=== PATIENT | female | born 1980 | race Caucasian/White ===

== ENCOUNTER → 2017-10-21 08:41 | Outpatient (CLI) | payer OTHER, SELFPAY ==
[2017-10-21 09:46] LABS: Alanine Aminotransferase 27 IU/L (9-52); Albumin 3.9 g/dL (3.5-5.0); Albumin Globulin Ratio 1.2 (1.0-2.8); Alkaline Phosphatase 59 U/L (38-126); Aspartate Aminotransferase 22 IU/L (14-36); BUN Creatinine Ratio 28.3 (6-22); Bilirubin Total 0.4 mg/dL (0.2-1.3); Blood Urea Nitrogen 17 mg/dL (7-17); Calcium 9.5 mg/dL (8.4-10.2); Carbon Dioxide 32 mmol/L (22-32); Chloride 100 mmol/L (98-107); Estimated Glomerular Filt Rate > 60.0 mL/min (>60); Globulin 3.2 g/dL (1.7-4.1); Glucose 93 mg/dL (70-100); HEMOLYSIS < 15 (0-50); Potassium 3.9 mmol/L (3.4-5.1); Sodium 141 mmol/L (137-145); Total Protein 7.1 g/dL (6.3-8.2)
== END ==
PROVIDERS: Family Provider Family Medicine; PCP Family Medicine; Visit Provider Physician Assistant
DX: L68.0 Hirsutism (principal)
CPT/HCPCS: 36415; 80053

== ENCOUNTER → 2017-11-30 10:37 | Outpatient (CLI) | payer OTHER, SELFPAY ==
[2017-11-30 12:49] LABS: Follicle Stimulating Hormone 6.38 mIU/mL; Luteinizing Hormone 3.55 mIU/mL; Prolactin 17.8 ng/mL (3.0-18.6)
[2017-11-30 12:53] LABS: TSH w/ Reflex to FT4 6.37 uIU/mL (0.47-4.68)
[2017-12-03 19:28] LABS: Testosterone Free 1.6 pg/mL (0.1-6.4); Testosterone Total 15 ng/dL (2-45)
== END ==
PROVIDERS: PCP Family Medicine
DX: N97.0 Female infertility associated with anovulation (principal)
CPT/HCPCS: 36415; 83001; 83002; 84146; 84402; 84403; 84439; 84443

== ENCOUNTER → 2017-12-14 14:12 | Outpatient (CLI) | payer OTHER, SELFPAY ==
[2017-12-14 17:46] LABS: Thyroid Stimulating Hormone 1.58 uIU/mL (0.47-4.68)
== END ==
PROVIDERS: Family Provider Family Medicine; PCP Family Medicine
DX: N97.0 Female infertility associated with anovulation (principal); E03.9 Hypothyroidism, unspecified
CPT/HCPCS: 36415; 84144; 84443

== ENCOUNTER → 2018-01-18 13:02 | Outpatient (CLI) | payer OTHER, SELFPAY ==
[2018-01-18 15:03] LABS: Thyroid Stimulating Hormone 2.51 uIU/mL (0.47-4.68)
== END ==
PROVIDERS: Family Provider Family Medicine; PCP Family Medicine
DX: N97.0 Female infertility associated with anovulation (principal)
CPT/HCPCS: 36415; 82397; 84443

== ENCOUNTER → 2018-02-16 15:19 | Outpatient (CLI) | payer OTHER, SELFPAY ==
[2018-02-16 15:39] LABS: Add Manual Diff / Slide Review NO; Basophils Percent Auto 0.5 % (0-2); Eosinophils Percent Auto 3.2 % (2-4); Hematocrit 36.6 % (36-46); Hemoglobin 12.3 g/dL (12.0-16.0); Lymphocytes Percent Auto 27.4 % (25-40); Mean Corpuscular HGB Conc 33.5 % (30-36); Mean Corpuscular Hemoglobin 29.8 PG (26-34); Mean Corpuscular Volume 88.9 fL (80-100); Neutrophils Absolute Auto 3400 /uL (3000-5900); Neutrophils Percent Auto 60.9 % (50-75); Platelet Count 219 X10^3/uL (150-400); Red Blood Cell Count 4.11 X10^6/uL (4.0-5.2); White Blood Cell Count 5.6 X10^3/uL (4.5-11.0)
[2018-02-16 16:10] LABS: Alanine Aminotransferase 21 IU/L (9-52); Albumin 3.8 g/dL (3.5-5.0); Albumin Globulin Ratio 1.4 (1.0-2.8); Alkaline Phosphatase 64 U/L (38-126); Aspartate Aminotransferase 23 IU/L (14-36); BUN Creatinine Ratio 12.9 (6-22); Bilirubin Total 0.4 mg/dL (0.2-1.3); Blood Urea Nitrogen 9 mg/dL (7-17); Calcium 9.2 mg/dL (8.4-10.2); Carbon Dioxide 34 mmol/L (22-32); Chloride 101 mmol/L (98-107); Estimated Glomerular Filt Rate > 60.0 mL/min (>60); Globulin 2.8 g/dL (1.7-4.1); Glucose 106 mg/dL (70-100); HEMOLYSIS < 15 (0-50); Potassium 4.1 mmol/L (3.4-5.1); Sodium 141 mmol/L (137-145); Total Protein 6.6 g/dL (6.3-8.2)
[2018-02-16 19:07] LABS: Creatinine Urine Random 31.1 mg/dL
[2018-02-16 19:13] LABS: Microalbumi Creatinin Ratio Ur 385.8 ug/mg CR (<30)
== END ==
PROVIDERS: Family Provider Family Medicine; PCP Family Medicine; Visit Provider Family Medicine
DX: I10 Essential (primary) hypertension (principal)
CPT/HCPCS: 36415; 80053; 82043; 82570; 85025

== ENCOUNTER → 2018-03-10 11:18 | Outpatient (CLI) | payer OTHER, SELFPAY ==
[2018-03-10 15:49] LABS: BUN Creatinine Ratio 16.7 (6-22); Blood Urea Nitrogen 10 mg/dL (7-17); Calcium 9.4 mg/dL (8.4-10.2); Carbon Dioxide 32 mmol/L (22-32); Chloride 102 mmol/L (98-107); Estimated Glomerular Filt Rate > 60.0 mL/min (>60); Glucose 90 mg/dL (70-100); HEMOLYSIS < 15 (0-50); Potassium 4.6 mmol/L (3.4-5.1); Sodium 144 mmol/L (137-145)
== END ==
PROVIDERS: PCP Family Medicine; Visit Provider Family Medicine
DX: Z51.81 Encounter for therapeutic drug level monitoring (principal)
CPT/HCPCS: 36415; 80048

== ENCOUNTER → 2018-04-20 09:39 | Outpatient (CLI) | payer OTHER, SELFPAY ==
[2018-04-20 11:03] LABS: HCG Quantitative /Beta subunit < 2.39 mIU/mL
[2018-04-20 14:38] LABS: BUN Creatinine Ratio 16.7 (6-22); Blood Urea Nitrogen 10 mg/dL (7-17); Calcium 9.4 mg/dL (8.4-10.2); Carbon Dioxide 30 mmol/L (22-32); Chloride 100 mmol/L (98-107); Estimated Glomerular Filt Rate > 60.0 mL/min (>60); Glucose 93 mg/dL (70-100); HEMOLYSIS < 15 (0-50); Potassium 4.9 mmol/L (3.4-5.1); Sodium 143 mmol/L (137-145)
== END ==
PROVIDERS: PCP Family Medicine; Visit Provider Family Medicine
DX: N91.2 Amenorrhea, unspecified (principal)
CPT/HCPCS: 36415; 80048; 84702

== ENCOUNTER → 2018-06-29 14:13 | Outpatient (CLI) | payer OTHER, SELFPAY ==
--- NOTE | 2018-06-29 | DI.MRI.S_ITS ---
PROCEDURE: MR LUMBAR SPINE WO CON INDICATIONS: Postlaminectomy syndrome, not elsewhere classified TECHNIQUE: Noncontrast sagittal T1 spin echo and T2 fast echo, sagittal STIR, axial T1 and T2 fast spin echo through the lumbar spine. In cases with scoliosis, additional coronal T2 fast spin echo may be performed. COMPARISON: [facility], MR, L-SPINE WITHOUT CONTRAST, 04/21/2017, 16:00. [facility], MR, L-SPINE WITHOUT CONTRAST, 11/17/2016, 17:14. FINDINGS: Image quality: Excellent. Alignment and Curvature: There is trace L3-L4 retrolisthesis.. Bones: Reactive endplate change is noted adjacent to the L4-L5 disc. Postsurgical changes compatible with L4-L5 left laminotomy are redemonstrated. No acute vertebral body compression fractures. Spinal Cord: Conus medullaris terminates at the L1 level. Visualized cord demonstrates normal signal and size. Paraspinous Soft Tissues: No paravertebral masses. L1-L2: Normal appearance. L2-L3: Normal appearance. L3-L4: Normal appearance. L4-L5: Loss of disc signal and height. Moderate, diffuse disc bulge. Large left central disc extrusion which is increased in size compared to prior examinations. Extruded disc material impinges upon the traversing left L5 nerve root. Mild bilateral facet hypertrophy. Mild to moderate narrowing of the central canal. Severe bilateral neural foraminal narrowing flattening deformity exiting L4 nerve roots L5-S1: Disc has a normal appearance. Mild bilateral facet hypertrophy. No central stenosis. No neural foraminal narrowing. No neural impingement. IMPRESSION: 1. Postsurgical changes. 2. Moderate to severe L4-L5 degenerative disc disease. 3. Mild L4-L5 and L5-S1 facet arthropathy. 4. Large left central L4-L5 disc extrusion. Extruded disc material impinges upon the left L5 nerve root. 5. [id number] L4-L5 central canal narrowing. 6. Severe bilateral L4-L5 neural foraminal narrowing. 7. Flattened deformity of the exiting bilateral L4 nerve root secondary to neuroforaminal narrowing. Dictated by: Patricia Blair MD, PhD on 06/29/2018 at 14:47 Approved by: Patricia Blair MD, PhD on 06/29/2018 at 14:59
== END ==
PROVIDERS: Family Provider Family Medicine; PCP Family Medicine; Visit Provider Family Medicine
DX: M96.1 Postlaminectomy syndrome, not elsewhere classified (principal); M51.36 Other intervertebral disc degeneration, lumbar region; M48.061 Spinal stenosis, lumbar region without neurogenic claudication; M47.816 Spondylosis without myelopathy or radiculopathy, lumbar region; M47.817 Spondylosis without myelopathy or radiculopathy, lumbosacral region
CPT/HCPCS: 72148

== ENCOUNTER 2018-09-05 01:57 | Emergency (ER) | payer OTHER, SELFPAY ==
[2018-09-05 02:08] VITALS: BP 126/71; PULSE 108; RESP 18; TEMP 36.8; O2SAT 96
--- NOTE | 2018-09-05 02:21 | ED.BACK ---
HPI - Back Pain/Injury General Chief Complaint: Back Pain/Injury Stated Complaint: back pain has slipped disc Time Seen by Provider: 09/05/18 02:09 Source: patient Mode of arrival: ambulatory Limitations: no limitations History of Present Illness HPI Narrative: 37-year-old female with lumbar spine disc disease has had prior surgery. Had an MRI performed approximately 2 months ago which showed left-sided lower lumbar issues. She has seen a spine surgeon which she states told her he would not do surgery until she lost 60 lb. She has lost 30 lb. She gets her pain medication from the [facility]. She has oxycodone at home. States over the past couple days she has had a increase in her left-sided back pain radiating down her left arm. No urinary symptoms. No bowel symptoms. No saddle anesthesia. No fevers. No trauma. is not taking any anti-inflammatories Related Data Home Medications Medication Instructions Recorded Confirmed terazosin 5 mg PO HS #0 09/29/16 07/28/18 ketoconazole 1 thomas TOPICAL #0 04/07/17 07/28/18 cyclobenzaprine 10 mg tablet 10 mg PO BID tab 11/30/17 07/28/18 oxycodone 30 mg tablet 15 mg PO BIDP PRN tab 06/23/18 07/28/18 Previous Rx's Medication Instructions Recorded albuterol sulfate [Proventil HFA] 2 puff INH PRN PRN #1 units 05/07/16 polyethylene glycol 3350 [Miralax] 17 gm PO QDAY #500 gm 05/26/17 omeprazole 40 mg PO QDAY #30 cap 07/28/17 ipratropium 20 mcg-albuterol 100 1 puff INHALATION TID #1 inh 12/01/17 mcg/actuation mist for inhalation levothyroxine 50 mcg tablet 50 mcg PO DAILY #90 tab 12/04/17 docusate sodium 250 mg PO QDAY #30 cap 02/25/18 aripiprazole 5 mg tablet 5 mg PO QDAY #30 tab 07/02/18 duloxetine 30 mg capsule,delayed 90 mg PO DAILY #90 cap 07/12/18 release pregabalin 150 mg capsule 150 mg PO BID #60 cap 07/12/18 furosemide 20 mg tablet 20 mg PO DAILY #90 tab 07/19/18 metoprolol tartrate 50 mg tablet 50 mg PO BID #180 tab 07/19/18 meloxicam [Mobic] 15 mg PO DAILY #30 tab 09/05/18 prednisone 40 mg PO DAILY 5 Days #10 tab 09/05/18 Allergies Allergy/AdvReac Type Severity Reaction Status Date / Time carisoprodol [CARISOPRODOL] AdvReac Severe urinary Verified 07/28/18 08:33 retention Review of Systems Constitutional Denies fever(s), Denies headache(s) and Denies weakness ENT Ears, Nose, Mouth, and Throat: Denies headache(s) and Denies disequilibrium Cardiovascular Denies chest pain and Denies dyspnea Respiratory Denies dyspnea Gastrointestinal Gastrointestinal: Denies abdominal pain Genitourinary Denies dysuria, Denies urinary incontinence, Denies urinary hesitancy and Denies urinary urgency Musculoskeletal Reports back pain and Reports tingling (Left lower extremity) Integumentary/Breasts Denies rash Neurologic Denies headache(s), Reports radicular pain, Reports tingling (Left lower extremity), Denies paresthesias, Denies disequilibrium and Denies weakness Hematologic/Lymphatic Denies easy bleeding and Denies easy bruising [facility] Medical History Cubital tunnel syndrome (Chronic) Fibromyalgia (Chronic 2014) 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 (Chronic) Ovarian cyst (Chronic) Plantar fasciitis (Chronic) Acetaminophen overdose of undetermined intent (Resolved 12/2015) Intraoperative cardiac arrest during non-cardiac surgery (Resolved 11/2013) Suicide attempt (Resolved) Surgical History History of carpal tunnel repair (Resolved 10/30/14) S/P epidural steroid injection (Resolved 11/2013) Status post dilation and curettage (Resolved 2008) Status post laminectomy (Resolved 09/2016) Family History Grandfather Diabetes mellitus Family/Other Pancreatic cancer Social History Smoking Status: Current some day smoker Family History Grandfather Diabetes mellitus Family/Other Pancreatic cancer Social History Smoking Status: Current some day smoker Exam Initial Vital Signs Initial Vital Signs: Vital Signs Temperature 98.3 F 09/05/18 02:08 Pulse Rate 108 H 09/05/18 02:08 Respiratory Rate 18 09/05/18 02:08 Blood Pressure 126/71 09/05/18 02:08 Pulse Oximetry 96 09/05/18 02:08 Const General: cooperative, comfortable, well developed, well groomed and No acute distress Orientation: alert, awake and oriented x3 HENMT Head: normal to inspection and normocephalic Resp Effort & Inspection: normal respiratory effort Cardio Rate: tachycardic Back/Spine/Pelvis Cervical Spine: No cervical spinal tenderness Thoracic/Lumbar Spine: paraspinal tenderness, No thoracic spinal tenderness and lumbar spinal tenderness Skin Other: Well-healed midline surgical wound consistent with her prior lumbar spinal surgery history Neuro General: alert, awake and oriented x3 Cognition: normal cognition Speech: speech normal Gait: normal gait Extrem General: normal to inspection and capillary refill normal Psych Appearance: grossly normal and well kempt Course Orders Ordered: Discontinued Medications Hydromorphone HCl (Dilaudid) 1 mg IM NOW ONE Stop: 09/05/18 02:22 Ketorolac Tromethamine (Toradol) 30 mg IM NOW ONE Stop: 09/05/18 02:22 Vital Signs - 8 hr 09/05/18 02:08 Temperature 98.3 F Pulse Rate 108 H Respiratory Rate 18 Blood Pressure 126/71 Pulse Oximetry 96 MDM - Back Pain/Injury MDM Narrative Medical decision making narrative: Patient without any red flag symptoms concerning for fracture, cauda equina, metastasis, hematoma or abscess. She has oxycodone at home prescribed by the pain clinic. She was given a shot of Dilaudid and Toradol here in the ER. Will send home with a short prescription for prednisone and also Mobic. She was given return precautions. She has a follow-up with her spine surgeon on Thursday next week. She expressed understanding and agreement with plan. Discharge Plan Departure Patient Disposition: Home Clinical Impression: Lumbar radiculopathy Instructions: DI for Back Pain With Sciatica Activity Restrictions/Additional Instructions: Recommend you take the medications as directed. Further treatment of her chronic pain needs to come from the [facility] or your primary doctor. Keep all your scheduled medical appointments. Return to the emergency department for any new or worsening symptoms Prescriptions: New meloxicam [Mobic] 15 mg tablet 15 mg PO DAILY Qty: 30 RF: 0 prednisone 20 mg tablet 40 mg PO DAILY 5 Days Qty: 10 RF: 0 No Action albuterol sulfate [Proventil HFA] 90 MCG/PUFF HFA aerosol inhaler 2 puff INH PRN PRNQty: 1 RF: 6 terazosin 10 MG capsule 5 mg PO HS Qty: 0 RF: 0 ketoconazole 2 % shampoo 1 thomas Topical Qty: 0 RF: 0 polyethylene glycol 3350 [Miralax] 119 GM powder 17 gm PO QDAY Qty: 500 RF: 3 omeprazole 40 MG capsule,delayed release(DR/EC) 40 mg PO QDAY Qty: 30 RF: 12 ipratropium-albuterol [Combivent Respimat] 20-100 mcg/actuation mist 1 puff INHALATION TID Qty: 1 RF: 5 levothyroxine 50 mcg tablet 50 mcg PO DAILY Qty: 90 RF: 3 docusate sodium 250 mg capsule 250 mg PO QDAY Qty: 30 RF: 11 aripiprazole [Abilify] 5 mg tablet 5 mg PO QDAY Qty: 30 RF: 12 duloxetine [Cymbalta] 30 mg capsule,delayed release(DR/EC) 90 mg PO DAILY Qty: 90 RF: 2 pregabalin 150 mg capsule 150 mg PO BID Qty: 60 RF: 5 furosemide 20 mg tablet 20 mg PO DAILY Qty: 90 RF: 1 metoprolol tartrate 50 mg tablet 50 mg PO BID Qty: 180 RF: 1 oxycodone [Roxicodone] 30 mg tablet 15 mg PO BIDP PRNRF: 0 cyclobenzaprine 10 mg tablet 10 mg PO BID RF: 0 Referrals: Alejandra Lynch MD [Primary Care Provider] -
[2018-09-05] MEDS: KETOROLAC 60 MG/2 ML VIAL 30 MG IM (02:43)
[2018-09-05] MEDS: HYDROMORPHONE 1 MG INJ IM (02:43)
[2018-09-05 03:20] VITALS: BP 113/63; PULSE 87; RESP 16; O2SAT 96
== END 2018-09-05 03:23 | disposition home or self-care (01) ==
PROVIDERS: Emergency Provider Emergency Medicine; PCP Family Medicine
DX: M54.16 Radiculopathy, lumbar region (principal)
CPT/HCPCS: 96372; 99282; 99283; J1170; J1885

== ENCOUNTER 2018-09-23 11:19 | Emergency (ER) | payer OTHER, SELFPAY ==
--- NOTE | 2018-09-23 11:22 | PC.NURSE ---
Stable. OK to wait for triage
[2018-09-23 11:33] VITALS: BP 133/85; PULSE 104; RESP 20; TEMP 36.4; O2SAT 100; BMI 40.7
--- NOTE | 2018-09-23 12:03 | ED.BACK ---
HPI - Back Pain/Injury <Adilene Siegel PA-C - Last Filed: 09/23/18 20:20> General Chief Complaint: Back Pain/Injury Stated Complaint: LOWER BACK PAIN Time Seen by Provider: 09/23/18 12:03 Source: patient Mode of arrival: ambulatory Limitations: no limitations History of Present Illness HPI Narrative: This 37-year-old female is sent for evaluation by her PCP office secondary to known herniated disc and left lower extremity radiculopathy. They reported concern due to her having new saddle anesthesia. Patient states that she has had multiple spinal disc problems and several back surgeries. She states that she has known slipped disc, last MRI was June (shows L4/5 H and P with left nerve root impingement). She states that she was seen here on the due to her back pain and was told to follow up with her PCP, but she did not just due to hoping this would improve somewhat on its own. She states that pain has been gradually worsening since then, even more so in the last several days. 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 She states that pain is not changed in quality, radiates all the way down her left leg into her foot. She states she is able to walk as she has been so painful. She states that she has had problem since this started with urinary urgency and difficulty getting to the bathroom at times, i.e. she will wake up with a full bladder and it is hard to get to the bathroom. She has difficulty telling whether this is due to sensation change versus just difficulty getting to the bathroom due to pain. she thinks this is may be slightly worse gradually. She states she has occasional stool incontinence as well, last episode was a couple of weeks ago. She states these have also been typical issues for her when her back problems worsen. She states that she has slight numbness in her left thigh and groin area, which she describes as not feeling quite the same as the right. She denies any new injury, denies any new fever. She continues to have urinary urgency but no burning, hematuria, no clear increased frequency or any other new complaints on systems review Related Data Home Medications Medication Instructions Recorded Confirmed ketoconazole 1 thomas TOPICAL DIRECTED #0 04/07/17 09/23/18 cyclobenzaprine 10 mg tablet 10 mg PO QID tab 11/30/17 09/23/18 acetaminophen 500 mg tablet 1,000 mg PO BID tab 09/23/18 09/23/18 amitriptyline 25 mg PO DAILY 09/23/18 09/23/18 aripiprazole [Abilify] 5 mg PO DAILY 09/23/18 09/23/18 duloxetine [Cymbalta] 30 mg PO DAILY 09/23/18 09/23/18 morphine 30 mg PO BID 09/23/18 09/23/18 omeprazole 09/23/18 oxycodone 15 mg PO TID 09/23/18 09/23/18 terazosin 5 mg PO BEDTIME 09/23/18 09/23/18 Previous Rx's Medication Instructions Recorded polyethylene glycol 3350 [Miralax] 17 gm PO QDAY #500 gm 05/26/17 ipratropium 20 mcg-albuterol 100 1 puff INHALATION TID #1 inh 12/01/17 mcg/actuation mist for inhalation levothyroxine 50 mcg tablet 50 mcg PO DAILY #90 tab 12/04/17 docusate sodium 250 mg PO QDAY #30 cap 02/25/18 pregabalin 150 mg capsule 150 mg PO BID #60 cap 07/12/18 furosemide 20 mg tablet 20 mg PO DAILY #90 tab 07/19/18 metoprolol tartrate 50 mg tablet 50 mg PO BID #180 tab 07/19/18 Allergies Allergy/AdvReac Type Severity Reaction Status Date / Time carisoprodol [CARISOPRODOL] AdvReac Severe urinary Verified 09/23/18 10:47 retention Review of Systems <Adilene Siegel PA-C - Last Filed: 09/23/18 20:20> Review of Systems ROS Unobtainable: All systems reviewed & are unremarkable except as noted in HPI and below PFSH <Adilene Siegel PA-C - Last Filed: 09/23/18 20:20> Medical History Cubital tunnel syndrome (Chronic) Fibromyalgia (Chronic 2014) 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 (Chronic) Ovarian cyst (Chronic) Plantar fasciitis (Chronic) Acetaminophen overdose of undetermined intent (Resolved 12/2015) Intraoperative cardiac arrest during non-cardiac surgery (Resolved 11/2013) Suicide attempt (Resolved) Surgical History History of carpal tunnel repair (Resolved 10/30/14) S/P epidural steroid injection (Resolved 11/2013) Status post dilation and curettage (Resolved 2008) Status post laminectomy (Resolved 09/2016) Family History Grandfather Diabetes mellitus Family/Other Pancreatic cancer Social History Smoking Status: Former smoker Social History Smoking Status: Former smoker Exam <Adilene Siegel PA-C - Last Filed: 09/23/18 20:20> Narrative Exam Narrative: GENERAL APPEARANCE: Patient sitting comfortably, in no distress. PULMONARY: Lungs clear to auscultation bilaterally CV: Regular rhythm regular without murmur, normal S1 and S2, no S3 or S4 MUSCULOSKELETAL: Tender throughout the mid to inferior lumbar spine and lumbosacral musculature. Reduced trunk range of motion in all meadows secondary to tenderness, flexion to 45?. Normal sit:stand and gait though slightly stiff. Lower extremity strength 5/5 bilateral hip flexors, knee extensors, foot plantar flexion. Positive left modified straight leg raise NEUROLOGIC: Bilateral patellar and Achilles DTRs 2+ with distraction. Sensation is grossly intact throughout the lower extremities and groin. Anal sphincter tone may be slightly reduced but palpable Initial Vital Signs Initial Vital Signs: Vital Signs Temperature 97.6 F 09/23/18 11:33 Pulse Rate 104 H 09/23/18 11:33 Respiratory Rate 20 09/23/18 11:33 Blood Pressure 133/85 09/23/18 11:33 Pulse Oximetry 100 09/23/18 11:33 <Kristen Martinez DO - Last Filed: 09/25/18 08:27> Initial Vital Signs Initial Vital Signs: Vital Signs Temperature 97.6 F 09/23/18 11:33 Pulse Rate 104 H 09/23/18 11:33 Respiratory Rate 20 09/23/18 11:33 Blood Pressure 133/85 09/23/18 11:33 Pulse Oximetry 100 09/23/18 11:33 Course <Adilene Siegel PA-C - Last Filed: 09/23/18 20:20> Additional Information: Patient appears to have gradual and significant worsening of her chronic radicular symptoms, but no acute neurologic emergency today. She does not have gait impairment on exam. She does follow with a spine surgeon, however did not have a follow-up appointment for about 4 weeks. We phone today and she will be able to see him on Thursday morning. She will remain off of work until then, no given. She has been cutting down on her pain medication and this may also correlate with her worsening pain. she agreed to return if any acutely worsening symptoms or changes in the interim Vital Signs - 8 hr 09/23/18 13:35 Pulse Rate 93 H Blood Pressure 121/83 Pulse Oximetry 98 <Kristen Martinez DO - Last Filed: 09/25/18 08:27> Vital Signs - 8 hr 09/23/18 13:35 Pulse Rate 93 H Blood Pressure 121/83 Pulse Oximetry 98 MDM - Back Pain/Injury <Adilene Siegel PA-C - Last Filed: 09/23/18 20:20> Lab Data Point of Care Testing Test Results Negative Urine Dip Bedside Urine Glucose Negative Bedside Urine Bilirubin - Negative Bedside Urine Ketone - Negative Urine Specific [place] 1.015 Bedside Urine Occult Blood - Negative Bedside Urine pH 7.0 Bedside Urine Protein - Negative Bedside Urine Urobilinogen - Negative Bedside Urine Nitrite - Negative Bedside Urine Leukocytes - Negative Esterase <Kristen Martinez DO - Last Filed: 09/25/18 08:27> Lab Data Point of Care Testing Test Results Negative Urine Dip Bedside Urine Glucose Negative Bedside Urine Bilirubin - Negative Bedside Urine Ketone - Negative Urine Specific [place] 1.015 Bedside Urine Occult Blood - Negative Bedside Urine pH 7.0 Bedside Urine Protein - Negative Bedside Urine Urobilinogen - Negative Bedside Urine Nitrite - Negative Bedside Urine Leukocytes - Negative Esterase Discharge Plan Departure Patient Disposition: Home Clinical Impression: Lumbar radiculopathy Discharge Date/Time: 09/23/18 13:35 Interventions: ED Discharge Assessment Last Done: 09/23/18 13:35 Activity Restrictions/Additional Instructions: Please return as we talked about if you have acutely worsening symptoms or new symptoms such as acute weakness in your leg or inability to urinate. Otherwise, please follow-up with your verifying specialist on Thursday at 9:20 a.m. as we have planned. Remain off of work until you are advised by your specialist on what activities you can tolerate. Prescriptions: No Action ketoconazole 2 % shampoo 1 thomas Topical DIRECTED Qty: 0 RF: 0 polyethylene glycol 3350 [Miralax] 119 GM powder 17 gm PO QDAY Qty: 500 RF: 3 ipratropium-albuterol [Combivent Respimat] 20-100 mcg/actuation mist 1 puff INHALATION TID Qty: 1 RF: 5 levothyroxine 50 mcg tablet 50 mcg PO DAILY Qty: 90 RF: 3 docusate sodium 250 mg capsule 250 mg PO QDAY Qty: 30 RF: 11 pregabalin 150 mg capsule 150 mg PO BID Qty: 60 RF: 5 furosemide 20 mg tablet 20 mg PO DAILY Qty: 90 RF: 1 metoprolol tartrate 50 mg tablet 50 mg PO BID Qty: 180 RF: 1 cyclobenzaprine 10 mg tablet 10 mg PO QID RF: 0 acetaminophen [Tylenol Extra Strength] 500 mg tablet 1,000 mg PO BID RF: 0 terazosin 5 mg capsule 5 mg PO BEDTIME RF: 0 morphine 30 mg tablet extended release 30 mg PO BID RF: 0 oxycodone 15 mg tablet 15 mg PO TID RF: 0 amitriptyline 25 mg tablet 25 mg PO DAILY RF: 0 omeprazole 20 mg capsule,delayed release(DR/EC) RF: 0 aripiprazole [Abilify] 5 mg tablet 5 mg PO DAILY RF: 0 duloxetine [Cymbalta] 30 mg capsule,delayed release(DR/EC) 30 mg PO DAILY RF: 0 Referrals: Praveen Reese [Other] Alejandra Lynch MD [Primary Care Provider] - Stand Alone Forms: Work Release Note <Kristen Martinez DO - Last Filed: 09/25/18 08:27> Cosign ED Attending Cosignature Attestation: I WAS IMMEDIATELY AVAILABLE IN THE DEPARTMENT FOR CONSULTATION. DOCUMENTATION HAS BEEN REVIEWED. I AGREE WITH ASSESSMENT AND PLAN.
--- NOTE | 2018-09-23 12:57 | PC.NURSE ---
Called patients spine surgeon and got an apt sooner than the end of the month. Apt is ThursdaySeptember 28 @ 0968.
[2018-09-23 13:35] VITALS: BP 121/83; PULSE 93; O2SAT 98
== END 2018-09-23 13:35 | disposition home or self-care (01) ==
PROVIDERS: Emergency Provider Internal Medicine; PCP Family Medicine
DX: M54.16 Radiculopathy, lumbar region (principal)
CPT/HCPCS: 51798; 81003; 81025; 99282; 99283

== ENCOUNTER 2019-01-13 14:10 | Emergency (ER) | payer OTHER, SELFPAY ==
[2019-01-13 14:25] VITALS: BP 142/93; PULSE 95; RESP 18; TEMP 36.6; O2SAT 98; BMI 40.7
--- NOTE | 2019-01-13 15:48 | PC.NURSE ---
Pt had spinal fusion 3 weeks ago. pt experiencing increasing pain. Pt denies loss bowel/bladder.
[2019-01-13] MEDS: KETOROLAC 60 MG/2 ML VIAL IM (15:56)
[2019-01-13 16:25] VITALS: BP 128/80; PULSE 86; RESP 20; O2SAT 97
[2019-01-13] MEDS: LIDOCAINE PATCH 1 EACH ADH..PATCH TOP (16:42)
--- NOTE | 2019-01-13 17:41 | DI.CT.S_ITS ---
PROCEDURE: CT LUMBAR SPINE WO CON INDICATIONS: recent l spine fusion, increased pain TECHNIQUE: Noncontrast 3 mm thick sections acquired from the T12 level to the sacrum. Sagittal and coronal reformats were constructed. For radiation dose reduction, the following was used: automated exposure control. COMPARISON: [facility], MR, MR LUMBAR SPINE WO CON, 06/29/2018, 14:22. [facility], MR, L-SPINE WITHOUT CONTRAST, 04/21/2017, 16:00. [facility], MR, L-SPINE WITHOUT CONTRAST, 11/17/2016, 17:14. [facility], CT, L-SPINE WITHOUT CONTRAST, 09/01/2016, 12:03. FINDINGS: Image quality: Diagnostic Bones: No acute vertebral body compression fractures. No suspicious lytic or blastic bony lesions. Central spinal caliber is of normal overall caliber. No pars defects. S-shaped scoliotic curvature is seen. No focal AP alignment abnormality is seen. T12-L1: Normal. L1-L2: Normal. L2-L3: Normal. L3-L4: Normal. L4-L5: Postoperative changes are seen at this level, with bilateral pedicle screws and vertical fixation rods. The screws appear well placed. There is a disc spacer seen. No findings of hardware failure or hardware loosening are seen. There has been removal of portions of the posterior elements. There is mild to moderate left-sided and moderate right-sided neural foraminal narrowing seen. The central canal is widely patent. This level is clearly improved compared to the preoperative MRI. L5-S1: No significant abnormality is seen at this level. Soft tissues: There is expected amount of fluid and fatty stranding within the postoperative bed. No corinna fluid collections are seen to the limits of this study. No retroperitoneal masses or hematomas. Visualized aorta is normal in caliber. Diverticulosis is seen, without findings of active diverticulitis. IMPRESSION: Interval postoperative change at L4-L5, with clear interval improvement of this level compared to the preoperative MRI. An expected amount of postoperative fluid and stranding can be seen within the postoperative bed, yet without a significant abnormality is seen. If there is strong clinical concern for a postoperative abscess, then please consider a repeat examination with IV contrast for further evaluation. Dictated by: Rickie Lundberg M.D. on 01/13/2019 at 17:05 Approved by: Rickie Lundberg M.D. on 01/13/2019 at 17:13
[2019-01-13] MEDS: predniSONE 20 MG TABLET 60 MG PO (18:18)
[2019-01-13 18:34] VITALS: BP 121/83; PULSE 78; RESP 16; O2SAT 99
[2019-01-13 18:46] LABS: Add Manual Diff / Slide Review NO; Basophils Absolute Auto 0 /uL (0-100); Basophils Percent Auto 0.5 % (0-2); Eosinophils Absolute Auto 100 /uL (0-450); Eosinophils Percent Auto 1.4 % (2-4); Lymphocytes Absolute Auto 1400 /uL (1100-4500); Mean Corpuscular HGB Conc 32.4 % (30-36); Mean Corpuscular Hemoglobin 28.1 PG (26-34); Mean Corpuscular Volume 86.5 fL (80-100); Monocytes Absolute Auto 600 /uL (0-900); Monocytes Percent Auto 10.8 % (3-14); Neutrophils Absolute Auto 3300 /uL (1500-7000); Neutrophils Percent Auto 61.3 % (50-75); Platelet Count 205 X10^3/uL (150-400); Red Blood Cell Count 4.28 X10^6/uL (4.0-5.2); Red Cell Distribution Width 13.9 % (11.6-14.8); White Blood Cell Count 5.3 X10^3/uL (4.5-11.0)
[2019-01-13 18:59] LABS: Alanine Aminotransferase 24 IU/L (9-52); Albumin Globulin Ratio 1.2 (1.0-2.8); Alkaline Phosphatase 83 U/L (38-126); Aspartate Aminotransferase 18 IU/L (14-36); Bilirubin Total 0.5 mg/dL (0.2-1.3); Blood Urea Nitrogen 11 mg/dL (7-17); Calcium 9.6 mg/dL (8.4-10.2); Carbon Dioxide 32 mmol/L (22-32); Chloride 99 mmol/L (98-107); Estimated Glomerular Filt Rate > 60.0 mL/min (>60); Globulin 3.4 g/dL (1.7-4.1); Glucose 93 mg/dL (70-100); HEMOLYSIS < 15 (0-50); Potassium 4.1 mmol/L (3.4-5.1); Sodium 139 mmol/L (137-145); Total Protein 7.4 g/dL (6.3-8.2)
--- NOTE | 2019-01-13 20:10 | ED.BACK ---
HPI - Back Pain/Injury <Jenna Sheikhmer, CIRCUITS ENGINEER-BC - Last Filed: 01/13/19 20:17> General Chief Complaint: Back Pain/Injury Stated Complaint: spinal fusion 3weeks ago/pain returned 2weeks ago Time Seen by Provider: 01/13/19 14:36 Source: patient and family Mode of arrival: ambulatory Limitations: no limitations History of Present Illness HPI Narrative: The patient is a 38-year-old female former smoker with history of chronic back pain who presents with a chief complaint of back pain. She states she had a spinal fusion at L4 done at [place] 3 weeks ago. She states that she has had increased pain for the past 2 weeks. She states that the pain is worse with movement or lying back. She states she has a pain contract, and takes morphine ER twice a day as well as oxycodone for breakthrough pain. She states she has not followed up with her pain specialist at this point time. She also endorses a history of fibromyalgia. She denies any incontinence of bowel, incontinence of bladder saddle anesthesia. She denies any fevers nausea vomiting or diarrhea. She states she recently finished a Medrol taper. She states that her surgical incisions are not red or swollen or draining Related Data Home Medications Medication Instructions Recorded Confirmed ketoconazole 1 thmoas TOPICAL DIRECTED #0 04/07/17 01/13/19 acetaminophen 500 mg tablet 1,000 mg PO BID tab 09/23/18 01/13/19 amitriptyline 25 mg PO DAILY 09/23/18 01/13/19 aripiprazole [Abilify] 5 mg PO DAILY 09/23/18 01/13/19 terazosin 5 mg PO BEDTIME 09/23/18 01/13/19 cyclobenzaprine 10 mg tablet 10 mg PO TID tab 12/08/18 01/13/19 morphine ER 15 mg tablet,extended 15 mg PO Q12H 12/08/18 01/13/19 release oxycodone 15 mg tablet 7.5 mg PO BID tab MDD 1 tab 12/08/18 01/13/19 docusate sodium [Col-Rite] 250 mg PO DAILY 01/13/19 01/13/19 duloxetine 60 mg PO DAILY 01/13/19 01/13/19 hydromorphone 2 - 4 mg PO Q4-6H PRN MDD 6 tabs 01/13/19 01/13/19 naloxone [Narcan] 1 dose INTRANASAL .ONCE PRN 01/13/19 01/13/19 Previous Rx's Medication Instructions Recorded ipratropium 20 mcg-albuterol 100 1 puff INHALATION TID #1 inh 12/01/17 mcg/actuation mist for inhalation pregabalin 150 mg capsule 150 mg PO BID #60 cap 07/12/18 furosemide 20 mg tablet 20 mg PO DAILY #90 tab 07/19/18 metoprolol tartrate 50 mg tablet 50 mg PO BID #180 tab 07/19/18 omeprazole 20 mg capsule,delayed 20 mg PO BID #180 cap 11/17/18 release blood sugar diagnostic strips #50 each 12/08/18 blood-glucose meter #1 each 12/08/18 lancets 33 gauge #100 each 12/08/18 levothyroxine 50 mcg tablet 50 mcg PO DAILY #90 tab 12/13/18 ketorolac 10 mg PO TID PRN #20 tab 01/13/19 prednisone 50 mg PO DAILY #5 tab 01/13/19 Allergies Allergy/AdvReac Type Severity Reaction Status Date / Time carisoprodol [CARISOPRODOL] AdvReac Severe urinary Verified 01/04/19 13:33 retention Review of Systems <NICOLE Acosta - Last Filed: 01/13/19 20:17> Review of Systems GENERAL: Denies chills, fatigue, malaise, fever, sweats. HEENT: Denies sinus pain, ear pain, sore throat, difficulty swallowing, dizziness. RESPIRATORY: Denies dyspnea, cough, wheezing, hemoptysis, sputum. CARDIOVASCULAR: Denies chest pain, palpitations, orthopnea, edema, GASTROINTESTINAL: Denies nausea, vomiting, abdominal pain, diarrhea, constipation, melena. : Denies dysuria, frequency, incontinence, hematuria, urinary retention. MUSCULOSKELETAL: See HPI SKIN: See HPI NEUROLOGIC: Denies weakness, headache, numbness, change in speech, confusion, seizures, incoordination. PSYCHIATRIC: No concerning psychosocial issues. 12 point review of systems is negative except for those stated above PFSH <NICOLE Acosta - Last Filed: 01/13/19 20:17> Social History Smoking Status: Former smoker Exam <LINDA AcostaP-BC - Last Filed: 01/13/19 20:17> Narrative Exam Narrative: GENERAL: This is a well-nourished, well-developed patient, appears uncomfortable HEAD: Atraumatic. Normocephalic. No temporal or scalp tenderness. EYES: Pupils equal round and reactive. Extraocular motions intact. No scleral icterus. No injection or drainage. ENT: Nose without bleeding, purulent drainage or septal hematoma. Throat without erythema, tonsillar hypertrophy or exudate. Uvula midline. Airway patent. NECK: Trachea midline. No JVD or lymphadenopathy. Supple, nontender, no meningeal signs. CARDIOVASCULAR: Regular rate and rhythm RESPIRATORY: Clear to auscultation. Breath sounds equal bilaterally. No wheezes, rales, or rhonchi. No cough. No increased respiratory effort. No accessory muscle use. GASTROINTESTINAL: Abdomen soft, non-tender, nondistended. No hepato-splenomegaly, or palpable masses. No guarding. EXTREMITIES: No clubbing, cyanosis, or edema. No joint tenderness, effusion, or edema noted. Strength is equal upper and lower extremities bilaterally. BACK: No pain to palpation of C or T-spine. Pain to palpation of L-spine as well as paraspinal muscles of L-spine. NEURO: AOx3. Strength is equal upper and lower extremities bilaterally. No gross cranial nerve deficit. Skin clear speech. Stable gait. SKIN: Surgical incisions of lumbar spine clean dry intact, well approximated. No erythema or swelling noted no drainage. Initial Vital Signs Initial Vital Signs: Vital Signs Temperature 97.8 F 01/13/19 14:25 Pulse Rate 95 H 01/13/19 14:25 Respiratory Rate 18 01/13/19 14:25 Blood Pressure 142/93 H 01/13/19 14:25 Pulse Oximetry 98 01/13/19 14:25 <Jenna Caceres DO - Last Filed: 01/14/19 18:41> Initial Vital Signs Initial Vital Signs: Vital Signs Temperature 97.8 F 01/13/19 14:25 Pulse Rate 95 H 01/13/19 14:25 Respiratory Rate 18 01/13/19 14:25 Blood Pressure 142/93 H 01/13/19 14:25 Pulse Oximetry 98 01/13/19 14:25 Course <Jenna Lares, CIRCUITS ENGINEER-BC - Last Filed: 01/13/19 20:17> Orders Ordered: Discontinued Medications Ketorolac Tromethamine (Toradol) 60 mg IM NOW ONE Stop: 01/13/19 15:47 Last Admin: 01/13/19 15:56 Dose: 60 mg Lidocaine (Lidoderm) 1 each TOP NOW ONE Stop: 01/13/19 16:36 Last Admin: 01/13/19 16:42 Dose: 1 each Prednisone (Deltasone) 60 mg PO NOW ONE Stop: 01/13/19 18:02 Last Admin: 01/13/19 18:18 Dose: 60 mg Consultations Consultation #1: I spoke with Dr. Reese, the patient's spinal surgeon from [place] regarding the patient's increased pain. He states that there the patient has done well postoperative, and that he stated he would manage her pain for the 1st month, and then transition pain management back to the patient's pain management physician. He states that other is low likelihood of any infection at this point time, especially if her incisions look to be within normal limits. He states that to be cautious, a CT of her lumbar spine can be obtained as well as basic blood work. Otherwise he recommends discharging her with a steroid for her sciatica as well as anti-inflammatories. Thus basic lab work was obtained, as well as a CT of her L-spine. Vital Signs - 8 hr 01/13/19 14:25 01/13/19 16:25 01/13/19 18:34 Temperature 97.8 F Pulse Rate 95 H 86 78 Respiratory Rate 18 20 16 Blood Pressure 142/93 H Blood Pressure [Left Arm] 128/80 121/83 Pulse Oximetry 98 97 99 <Jenna Caceres DO - Last Filed: 01/14/19 18:41> Orders Ordered: Discontinued Medications Ketorolac Tromethamine (Toradol) 60 mg IM NOW ONE Stop: 01/13/19 15:47 Last Admin: 01/13/19 15:56 Dose: 60 mg Lidocaine (Lidoderm) 1 each TOP NOW ONE Stop: 01/13/19 16:36 Last Admin: 01/13/19 16:42 Dose: 1 each Prednisone (Deltasone) 60 mg PO NOW ONE Stop: 01/13/19 18:02 Last Admin: 01/13/19 18:18 Dose: 60 mg Vital Signs - 8 hr 01/13/19 14:25 01/13/19 16:25 01/13/19 18:34 Temperature 97.8 F Pulse Rate 95 H 86 78 Respiratory Rate 18 20 16 Blood Pressure 142/93 H Blood Pressure [Left Arm] 128/80 121/83 Pulse Oximetry 98 97 99 MDM - Back Pain/Injury <Jenna Lares, CHELO- - Last Filed: 01/13/19 20:17> Lab Data Result diagrams: 01/13/19 18:35 01/13/19 18:35 Lab Results 01/13/19 01/13/19 Range/Units 18:35 18:35 WBC 5.3 (4.5-11.0) X10^3/uL RBC 4.28 (4.0-5.2) X10^6/uL Hgb 12.0 (12.0-16.0) g/dL Hct 37.0 (36-46) % MCV 86.5 (80-100) fL MCH 28.1 (26-34) PG MCHC 32.4 (30-36) % RDW 13.9 (11.6-14.8) % Plt Count 205 (150-400) X10^3/uL Neut % (Auto) 61.3 (50-75) % Lymph % (Auto) 26.0 (25-40) % [place] % (Auto) 10.8 (3-14) % Eos % (Auto) 1.4 L (2-4) % Baso % (Auto) 0.5 (0-2) % Neut # (Auto) 3300 (6974-1348) /uL Lymph # (Auto) 1400 (8393-0451) /uL [place] # (Auto) 600 (0-900) /uL Eos # (Auto) 100 (0-450) /uL Baso # (Auto) 0 (0-100) /uL Sodium 139 (137-145) mmol/L Potassium 4.1 (3.4-5.1) mmol/L Chloride 99 (98-107) mmol/L Carbon Dioxide 32 (22-32) mmol/L BUN 11 (7-17) mg/dL Creatinine 0.50 L (0.52-1.04) mg/dL Estimated GFR > 60.0 (>60) mL/min BUN/Creatinine Ratio 22.0 (6-22) Glucose 93 (70-100) mg/dL Calcium 9.6 (8.4-10.2) mg/dL Total Bilirubin 0.5 (0.2-1.3) mg/dL AST 18 (14-36) IU/L ALT 24 (9-52) IU/L Alkaline Phosphatase 83 (38-126) U/L Total Protein 7.4 (6.3-8.2) g/dL Albumin 4.0 (3.5-5.0) g/dL Globulin 3.4 (1.7-4.1) g/dL Albumin/Globulin Ratio 1.2 (1.0-2.8) Point of Care Testing Test Results Negative Urine Dip Bedside Urine Glucose Negative Bedside Urine Bilirubin - Negative Bedside Urine Ketone - Negative Urine Specific [place] 1.010 Bedside Urine Occult Blood - Negative Bedside Urine pH 7.0 Bedside Urine Protein - Negative Bedside Urine Urobilinogen - Negative Bedside Urine Nitrite - Negative Bedside Urine Leukocytes - Negative Esterase Imaging Data Lumbar CT: Radiologist's impression: Angelita Alvaradolis Rodriguez 38 F 1980 [place] [address] CT Scan Report Signed Patient: Nuvia Alvarado JenniferMR#: [id number] : 1980Acct:[id number] Age/Sex: 38 / FDate of Service: 01/13/19 Loc: ED Accession Number: [id number] Procedure: CT lumbar spine wo con Ordering Provider: Jenna Lares [facility]: CT LUMBAR SPINE WO CON INDICATIONS: recent l spine fusion, increased pain TECHNIQUE: Noncontrast 3 mm thick sections acquired from the T12 level to the sacrum. Sagittal and coronal reformats were constructed. For radiation dose reduction, the following was used: automated exposure control. COMPARISON: [facility], MR, MR LUMBAR SPINE WO CON, 06/29/2018, 14:22. [facility], MR, L-SPINE WITHOUT CONTRAST, 04/21/2017, 16:00. [facility], MR, L-SPINE WITHOUT CONTRAST, 11/17/2016, 17:14. [facility], CT, L-SPINE WITHOUT CONTRAST, 09/01/2016, 12:03. FINDINGS: Image quality: Diagnostic Bones: No acute vertebral body compression fractures. No suspicious lytic or blastic bony lesions. Central spinal caliber is of normal overall caliber. No pars defects. S-shaped scoliotic curvature is seen. No focal AP alignment abnormality is seen. T12-L1: Normal. L1-L2: Normal. L2-L3: Normal. L3-L4: Normal. L4-L5: Postoperative changes are seen at this level, with bilateral pedicle screws and vertical fixation rods. The screws appear well placed. There is a disc spacer seen. No findings of hardware failure or hardware loosening are seen. There has been removal of portions of the posterior elements. There is mild to moderate left-sided and moderate right-sided neural foraminal narrowing seen. The central canal is widely patent. This level is clearly improved compared to the preoperative MRI. L5-S1: No significant abnormality is seen at this level. Soft tissues: There is expected amount of fluid and fatty stranding within the postoperative bed. No corinna fluid collections are seen to the limits of this study. No retroperitoneal masses or hematomas. Visualized aorta is normal in caliber. Diverticulosis is seen, without findings of active diverticulitis. IMPRESSION: Interval postoperative change at L4-L5, with clear interval improvement of this level compared to the preoperative MRI. An expected amount of postoperative fluid and stranding can be seen within the postoperative bed, yet without a significant abnormality is seen. If there is strong clinical concern for a postoperative abscess, then please consider a repeat examination with IV contrast for further evaluation. Dictated by: Rickie Lundberg M.D. on 01/13/2019 at 17:05 Approved by: Rickie Lundberg M.D. on 01/13/2019 at 17:13 [facility] Narrative Medical decision making narrative: The patient is a 38-year-old female who presents with a chief complaint of low back pain. She is recently postoperative, so I consulted with her surgeon. CT L-spine was obtained. The patient was placed on steroids as well as anti-inflammatories as per my discussion with her surgeon. Encouraged follow-up with her PCP, pain specialist as well as surgery. Discussed going back to the ER for any acute concerns such as incontinence bowel, incontinence of bladder saddle anesthesia. Discussed monitor for signs and symptoms of infection such as fever, drainage from her incision site etc. Patient has been of no questions or concerns upon discharge. She states that the Toradol has helped during her stay in the ER. <Jenna Caceres, DO - Last Filed: 01/14/19 18:41> Lab Data Lab Results 01/13/19 01/13/19 Range/Units 18:35 18:35 WBC 5.3 (4.5-11.0) X10^3/uL RBC 4.28 (4.0-5.2) X10^6/uL Hgb 12.0 (12.0-16.0) g/dL Hct 37.0 (36-46) % MCV 86.5 (80-100) fL MCH 28.1 (26-34) PG MCHC 32.4 (30-36) % RDW 13.9 (11.6-14.8) % Plt Count 205 (150-400) X10^3/uL Neut % (Auto) 61.3 (50-75) % Lymph % (Auto) 26.0 (25-40) % [place] % (Auto) 10.8 (3-14) % Eos % (Auto) 1.4 L (2-4) % Baso % (Auto) 0.5 (0-2) % Neut # (Auto) 3300 (2118-0392) /uL Lymph # (Auto) 1400 (9907-7874) /uL [place] # (Auto) 600 (0-900) /uL Eos # (Auto) 100 (0-450) /uL Baso # (Auto) 0 (0-100) /uL Sodium 139 (137-145) mmol/L Potassium 4.1 (3.4-5.1) mmol/L Chloride 99 (98-107) mmol/L Carbon Dioxide 32 (22-32) mmol/L BUN 11 (7-17) mg/dL Creatinine 0.50 L (0.52-1.04) mg/dL Estimated GFR > 60.0 (>60) mL/min BUN/Creatinine Ratio 22.0 (6-22) Glucose 93 (70-100) mg/dL Calcium 9.6 (8.4-10.2) mg/dL Total Bilirubin 0.5 (0.2-1.3) mg/dL AST 18 (14-36) IU/L ALT 24 (9-52) IU/L Alkaline Phosphatase 83 (38-126) U/L Total Protein 7.4 (6.3-8.2) g/dL Albumin 4.0 (3.5-5.0) g/dL Globulin 3.4 (1.7-4.1) g/dL Albumin/Globulin Ratio 1.2 (1.0-2.8) Point of Care Testing Test Results Negative Urine Dip Bedside Urine Glucose Negative Bedside Urine Bilirubin - Negative Bedside Urine Ketone - Negative Urine Specific [place] 1.010 Bedside Urine Occult Blood - Negative Bedside Urine pH 7.0 Bedside Urine Protein - Negative Bedside Urine Urobilinogen - Negative Bedside Urine Nitrite - Negative Bedside Urine Leukocytes - Negative Esterase Discharge Plan Departure Patient Disposition: Home Clinical Impression: Back pain of lumbar region with sciatica Discharge Date/Time: 01/13/19 19:22 Interventions: ED Discharge Assessment Last Done: 01/13/19 19:21 Instructions: DI for Sciatica, DI for Muscle Strain Activity Restrictions/Additional Instructions: Please follow up with your pain management as well as her surgeon. Your lab work and CT scan was grossly normal today. Please monitor for signs of infection such as redness, swelling, fever. Please follow up with any of these occur. Please do not take ibuprofen along with the Toradol prescription. Prescriptions: New ketorolac 10 mg tablet 10 mg PO TID PRN (Reason: pain) Qty: 20 RF: 0 prednisone 50 mg tablet 50 mg PO DAILY Qty: 5 RF: 0 No Action morphine 15 mg tablet extended release 15 mg PO Q12H RF: 0 Diatrue Plus Test Strip strip .ROUTE .MEDSUPPLY Qty: 50 RF: 12 blood-glucose meter [Diatrue Plus Blood Glucose Met] misc .ROUTE .MEDSUPPLY Qty: 1 RF: 0 lancets [Easy Touch Twist Lancets] 33 gauge misc .ROUTE .MEDSUPPLY Qty: 100 RF: 3 ketoconazole 2 % shampoo 1 thomas Topical DIRECTED Qty: 0 RF: 0 ipratropium-albuterol [Combivent Respimat] 20-100 mcg/actuation mist 1 puff INHALATION TID Qty: 1 RF: 5 pregabalin 150 mg capsule 150 mg PO BID Qty: 60 RF: 5 furosemide 20 mg tablet 20 mg PO DAILY Qty: 90 RF: 1 metoprolol tartrate 50 mg tablet 50 mg PO BID Qty: 180 RF: 1 omeprazole 20 mg capsule,delayed release(DR/EC) 20 mg PO BID Qty: 180 RF: 1 levothyroxine 50 mcg tablet 50 mcg PO DAILY Qty: 90 RF: 3 cyclobenzaprine 10 mg tablet 10 mg PO TID RF: 0 acetaminophen [Tylenol Extra Strength] 500 mg tablet 1,000 mg PO BID RF: 0 docusate sodium [Col-Rite] 250 mg capsule 250 mg PO DAILY RF: 0 hydromorphone 4 mg tablet 2 - 4 mg PO Q4-6H MDD 6 tabs PRN (Reason: pain) RF: 0 Narcan 4 mg/actuation spray,non-aerosol 1 dose intranasal .ONCE PRN (Reason: Opiate Reversal) RF: 0 duloxetine 30 mg capsule,delayed release(DR/EC) 60 mg PO DAILY RF: 0 terazosin 5 mg capsule 5 mg PO BEDTIME RF: 0 amitriptyline 25 mg tablet 25 mg PO DAILY RF: 0 aripiprazole [Abilify] 5 mg tablet 5 mg PO DAILY RF: 0 oxycodone 15 mg tablet 7.5 mg PO BID MDD 1 tab RF: 0 Referrals: Alejandra Lynch MD [Primary Care Provider] - <Jenna Caceres DO - Last Filed: 01/14/19 18:41> Cosign ED Attending Cosignature Attestation: I was immediately available in the department for consultation. This documentation has been reviewed and I agree with assessment and plan. Supervised by Jenna Caceres DO
--- NOTE | 2019-01-13 20:17 | ED_ITS ---
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 She states she had a spinal fusion at L4 done at [facility] 3 weeks ago. She states that she has had increased pain for the past 2 weeks. She states that the pain is worse with movement or lying back. She states she has a pain contract, and takes morphine ER twice a day as well as oxycodone for breakthrough pain. She states she has not followed up with her pain specialist at this point time. She also endorses a history of fibromyalgia. She denies any incontinence of bowel, incontinence of bladder saddle anesthesia. She denies any fevers nausea vomiting or diarrhea. She states she recently finished a Medrol taper. She states that her surgical incisions are not red or swollen or draining Related Data Home Medications Medication Instructions Recorded Confirmed ketoconazole 1 thomas TOPICAL DIRECTED #0 04/07/17 01/13/19 acetaminophen 500 mg tablet 1,000 mg PO BID tab 09/23/18 01/13/19 amitriptyline 25 mg PO DAILY 09/23/18 01/13/19 aripiprazole [Abilify] 5 mg PO DAILY 09/23/18 01/13/19 terazosin 5 mg PO BEDTIME 09/23/18 01/13/19 cyclobenzaprine 10 mg tablet 10 mg PO TID tab 12/08/18 01/13/19 morphine ER 15 mg tablet,extended 15 mg PO Q12H 12/08/18 01/13/19 release oxycodone 15 mg tablet 7.5 mg PO BID tab MDD 1 tab 12/08/18 01/13/19 docusate sodium [Col-Rite] 250 mg PO DAILY 01/13/19 01/13/19 duloxetine 60 mg PO DAILY 01/13/19 01/13/19 hydromorphone 2 - 4 mg PO Q4-6H PRN MDD 6 tabs 01/13/19 01/13/19 naloxone [Narcan] 1 dose INTRANASAL .ONCE PRN 01/13/19 01/13/19 Previous Rx's Medication Instructions Recorded ipratropium 20 mcg-albuterol 100 1 puff INHALATION TID #1 inh 12/01/17 mcg/actuation mist for inhalation pregabalin 150 mg capsule 150 mg PO BID #60 cap 07/12/18 furosemide 20 mg tablet 20 mg PO DAILY #90 tab 07/19/18 metoprolol tartrate 50 mg tablet 50 mg PO BID #180 tab 07/19/18 omeprazole 20 mg capsule,delayed 20 mg PO BID #180 cap 11/17/18 release blood sugar diagnostic strips #50 each 12/08/18 blood-glucose meter #1 each 12/08/18 lancets 33 gauge #100 each 12/08/18 levothyroxine 50 mcg tablet 50 mcg PO DAILY #90 tab 12/13/18 ketorolac 10 mg PO TID PRN #20 tab 01/13/19 prednisone 50 mg PO DAILY #5 tab 01/13/19 Allergies Allergy/AdvReac Type Severity Reaction Status Date / Time carisoprodol [CARISOPRODOL] AdvReac Severe urinary Verified 01/04/19 13:33 retention Review of Systems <NICOLE Acosta - Last Filed: 01/13/19 20:17> Review of Systems GENERAL: Denies chills, fatigue, malaise, fever, sweats. HEENT: Denies sinus pain, ear pain, sore throat, difficulty swallowing, dizziness. RESPIRATORY: Denies dyspnea, cough, wheezing, hemoptysis, sputum. CARDIOVASCULAR: Denies chest pain, palpitations, orthopnea, edema, GASTROINTESTINAL: Denies nausea, vomiting, abdominal pain, diarrhea, constipation, melena. : Denies dysuria, frequency, incontinence, hematuria, urinary retention. MUSCULOSKELETAL: See HPI SKIN: See HPI NEUROLOGIC: Denies weakness, headache, numbness, change in speech, confusion, seizures, incoordination. PSYCHIATRIC: No concerning psychosocial issues. 12 point review of systems is negative except for those stated above PFSH <NICOLE Acosta - Last Filed: 01/13/19 20:17> Social History Smoking Status: Former smoker Exam <LINDA AcostaP-BC - Last Filed: 01/13/19 20:17> Narrative Exam Narrative: GENERAL: This is a well-nourished, well-developed patient, appears uncomfortable HEAD: Atraumatic. Normocephalic. No temporal or scalp tenderness. EYES: Pupils equal round and reactive. Extraocular motions intact. No scleral icterus. No injection or drainage. ENT: Nose without bleeding, purulent drainage or septal hematoma. Throat without erythema, tonsillar hypertrophy or exudate. Uvula midline. Airway patent. NECK: Trachea midline. No JVD or lymphadenopathy. Supple, nontender, no meningeal signs. CARDIOVASCULAR: Regular rate and rhythm RESPIRATORY: Clear to auscultation. Breath sounds equal bilaterally. No wheezes, rales, or rhonchi. No cough. No increased respiratory effort. No accessory muscle use. GASTROINTESTINAL: Abdomen soft, non-tender, nondistended. No hepato- splenomegaly, or palpable masses. No guarding. EXTREMITIES: No clubbing, cyanosis, or edema. No joint tenderness, effusion, or edema noted. Strength is equal upper and lower extremities bilaterally. BACK: No pain to palpation of C or T-spine. Pain to palpation of L-spine as well as paraspinal muscles of L-spine. NEURO: AOx3. Strength is equal upper and lower extremities bilaterally. No gross cranial nerve deficit. Skin clear speech. Stable gait. SKIN: Surgical incisions of lumbar spine clean dry intact, well approximated. No erythema or swelling noted no drainage. Initial Vital Signs Initial Vital Signs: Vital Signs Temperature 97.8 F 01/13/19 14:25 Pulse Rate 95 H 01/13/19 14:25 Respiratory Rate 18 01/13/19 14:25 Blood Pressure 142/93 H 01/13/19 14:25 Pulse Oximetry 98 01/13/19 14:25 <Jenna Caceres DO - Last Filed: 01/14/19 18:41> Initial Vital Signs Initial Vital Signs: Vital Signs Temperature 97.8 F 01/13/19 14:25 Pulse Rate 95 H 01/13/19 14:25 Respiratory Rate 18 01/13/19 14:25 Blood Pressure 142/93 H 01/13/19 14:25 Pulse Oximetry 98 01/13/19 14:25 Course <Jenna Lares, [employer] AND C[employer]TER OPERATOR-BC - Last Filed: 01/13/19 20:17> Orders Ordered: Discontinued Medications Ketorolac Tromethamine (Toradol) 60 mg IM NOW ONE Stop: 01/13/19 15:47 Last Admin: 01/13/19 15:56 Dose: 60 mg Lidocaine (Lidoderm) 1 each TOP NOW ONE Stop: 01/13/19 16:36 Last Admin: 01/13/19 16:42 Dose: 1 each Prednisone (Deltasone) 60 mg PO NOW ONE Stop: 01/13/19 18:02 Last Admin: 01/13/19 18:18 Dose: 60 mg Consultations Consultation #1: I spoke with Dr. Reese, the patient's spinal surgeon from [facility] regarding the patient's increased pain. He states that there the patient has done well postoperative, and that he stated he would manage her pain for the 1st month, and then transition pain management back to the patient's pain management physician. He states that other is low likelihood of any infection at this point time, especially if her incisions look to be within normal limits. He states that to be cautious, a CT of her lumbar spine can be obtained as well as basic blood work. Otherwise he recommends discharging her with a steroid for her sciatica as well as anti-inflammatories. Thus basic lab work was obtained, as well as a CT of her L-spine. Vital Signs - 8 hr 01/13/19 14:25 01/13/19 16:25 01/13/19 18:34 Temperature 97.8 F Pulse Rate 95 H 86 78 Respiratory Rate 18 20 16 Blood Pressure 142/93 H Blood Pressure [Left Arm] 128/80 121/83 Pulse Oximetry 98 97 99 <Jenna Caceres DO - Last Filed: 01/14/19 18:41> Orders Ordered: Discontinued Medications Ketorolac Tromethamine (Toradol) 60 mg IM NOW ONE Stop: 01/13/19 15:47 Last Admin: 01/13/19 15:56 Dose: 60 mg Lidocaine (Lidoderm) 1 each TOP NOW ONE Stop: 01/13/19 16:36 Last Admin: 01/13/19 16:42 Dose: 1 each Prednisone (Deltasone) 60 mg PO NOW ONE Stop: 01/13/19 18:02 Last Admin: 01/13/19 18:18 Dose: 60 mg Vital Signs - 8 hr 01/13/19 14:25 01/13/19 16:25 01/13/19 18:34 Temperature 97.8 F Pulse Rate 95 H 86 78 Respiratory Rate 18 20 16 Blood Pressure 142/93 H Blood Pressure [Left Arm] 128/80 121/83 Pulse Oximetry 98 97 99 MDM - Back Pain/Injury <Jenna Lares, CHELO- - Last Filed: 01/13/19 20:17> Lab Data Result diagrams: 01/13/19 18:35 01/13/19 18:35 Lab Results 01/13/19 01/13/19 Range/Units 18:35 18:35 WBC 5.3 (4.5-11.0) X10^3/uL RBC 4.28 (4.0-5.2) X10^6/uL Hgb 12.0 (12.0-16.0) g/dL Hct 37.0 (36-46) % MCV 86.5 (80-100) fL MCH 28.1 (26-34) PG MCHC 32.4 (30-36) % RDW 13.9 (11.6-14.8) % Plt Count 205 (150-400) X10^3/uL Neut % (Auto) 61.3 (50-75) % Lymph % (Auto) 26.0 (25-40) % [place] % (Auto) 10.8 (3-14) % Eos % (Auto) 1.4 L (2-4) % Baso % (Auto) 0.5 (0-2) % Neut # (Auto) 3300 (7936-0001) /uL Lymph # (Auto) 1400 (7508-5135) /uL [place] # (Auto) 600 (0-900) /uL Eos # (Auto) 100 (0-450) /uL Baso # (Auto) 0 (0-100) /uL Sodium 139 (137-145) mmol/L Potassium 4.1 (3.4-5.1) mmol/L Chloride 99 (98-107) mmol/L Carbon Dioxide 32 (22-32) mmol/L BUN 11 (7-17) mg/dL Creatinine 0.50 L (0.52-1.04) mg/dL Estimated GFR > 60.0 (>60) mL/min BUN/Creatinine Ratio 22.0 (6-22) Glucose 93 (70-100) mg/dL Calcium 9.6 (8.4-10.2) mg/dL Total Bilirubin 0.5 (0.2-1.3) mg/dL AST 18 (14-36) IU/L ALT 24 (9-52) IU/L Alkaline Phosphatase 83 (38-126) U/L Total Protein 7.4 (6.3-8.2) g/dL Albumin 4.0 (3.5-5.0) g/dL Globulin 3.4 (1.7-4.1) g/dL Albumin/Globulin Ratio 1.2 (1.0-2.8) Point of Care Testing Test Results Negative Urine Dip Bedside Urine Glucose Negative Bedside Urine Bilirubin - Negative Bedside Urine Ketone - Negative Urine Specific [place] 1.010 Bedside Urine Occult Blood - Negative Bedside Urine pH 7.0 Bedside Urine Protein - Negative Bedside Urine Urobilinogen - Negative Bedside Urine Nitrite - Negative Bedside Urine Leukocytes - Negative Esterase Imaging Data Lumbar CT: Radiologist's impression: Angelita Alvaradolis Rodriguez 38 F 1980 [place] [address] CT Scan Report Signed Patient: Nuvia Alvarado JenniferMR#: [id number] : 1980Acct:[id number] Age/Sex: 38 / FDate of Service: 01/13/19 Loc: ED Accession Number: [id number] Procedure: CT lumbar spine wo con Ordering Provider: Jenna Lares [facility] PROC[facility]: CT LUMBAR SPINE WO CON INDICATIONS: recent l spine fusion, increased pain TECHNIQUE: Noncontrast 3 mm thick sections acquired from the T12 level to the sacrum. Sagittal and coronal reformats were constructed. For radiation dose reduction, the following was used: automated exposure control. COMPARISON: [facility], MR, MR LUMBAR SPINE WO CON, 06/29/2018, 14:22. [facility], MR, L-SPINE WITHOUT CONTRAST, 04/21/2017, 16:00. [facility], MR, L-SPINE WITHOUT CONTRAST, 11/17/2016, 17:14. [facility], CT, L-SPINE WITHOUT CONTRAST, 09/01/2016, 12:03. FINDINGS: Image quality: Diagnostic Bones: No acute vertebral body compression fractures. No suspicious lytic or blastic bony lesions. Central spinal caliber is of normal overall caliber. No pars defects. S-shaped scoliotic curvature is seen. No focal AP alignment abnormality is s een. T12-L1: Normal. L1-L2: Normal. L2-L3: Normal. L3-L4: Normal. L4-L5: Postoperative changes are seen at this level, with bilateral pedicle screws and vertical fixation rods. The screws appear well placed. There is a disc spacer seen. No findings of hardware failure or hardware loosening are seen. There has been removal of portions of the posterior elements. There is mild to moderate left-sided and moderate right-sided neural foraminal narrowing seen. The central canal is widely patent. This level is clearly improved compared to the preoperative MRI. L5-S1: No significant abnormality is seen at this level. Soft tissues: There is expected amount of fluid and fatty stranding within the postoperative bed. No corinna fluid collections are seen to the limits of this study. No retroperitoneal masses or hematomas. Visualized aorta is normal in caliber. Diverticulosis is seen, without findings of active diverticulitis. IMPRESSION: Interval postoperative change at L4-L5, with clear interval improvement of this level compared to the preoperative MRI. An expected amount of postoperative fluid and stranding can be seen within the postoperative bed, yet without a significant abnormality is seen. If there is strong clinical concern for a postoperative abscess, then please consider a repeat examination with IV contrast for further evaluation. Dictated by: Rickie Lundberg M.D. on 01/13/2019 at 17:05 Approved by: Rickie Lundberg M.D. on 01/13/2019 at 17:13 [facility] Narrative Medical decision making narrative: The patient is a 38-year-old female who presents with a chief complaint of low back pain. She is recently postoperative, so I consulted with her surgeon. CT L-spine was obtained. The patient was placed on steroids as well as anti-inflammatories as per my discussion with her surgeon. Encouraged follow-up with her PCP, pain specialist as well as surgery. Discussed going back to the ER for any acute concerns such as incontinence bowel, incontinence of bladder saddle anesthesia. Discussed monitor for signs and symptoms of infection such as fever, drainage from her incision site etc. Patient has been of no questions or concerns upon discharge. She states that the Toradol has helped during her stay in the ER. <Jenna Caceres, DO - Last Filed: 01/14/19 18:41> Lab Data Lab Results 01/13/19 01/13/19 Range/Units 18:35 18:35 WBC 5.3 (4.5-11.0) X10^3/uL RBC 4.28 (4.0-5.2) X10^6/uL Hgb 12.0 (12.0-16.0) g/dL Hct 37.0 (36-46) % MCV 86.5 (80-100) fL MCH 28.1 (26-34) PG MCHC 32.4 (30-36) % RDW 13.9 (11.6-14.8) % Plt Count 205 (150-400) X10^3/uL Neut % (Auto) 61.3 (50-75) % Lymph % (Auto) 26.0 (25-40) % [place] % (Auto) 10.8 (3-14) % Eos % (Auto) 1.4 L (2-4) % Baso % (Auto) 0.5 (0-2) % Neut # (Auto) 3300 (6987-6965) /uL Lymph # (Auto) 1400 (4606-7270) /uL [place] # (Auto) 600 (0-900) /uL Eos # (Auto) 100 (0-450) /uL Baso # (Auto) 0 (0-100) /uL Sodium 139 (137-145) mmol/L Potassium 4.1 (3.4-5.1) mmol/L Chloride 99 (98-107) mmol/L Carbon Dioxide 32 (22-32) mmol/L BUN 11 (7-17) mg/dL Creatinine 0.50 L (0.52-1.04) mg/dL Estimated GFR > 60.0 (>60) mL/min BUN/Creatinine Ratio 22.0 (6-22) Glucose 93 (70-100) mg/dL Calcium 9.6 (8.4-10.2) mg/dL Total Bilirubin 0.5 (0.2-1.3) mg/dL AST 18 (14-36) IU/L ALT 24 (9-52) IU/L Alkaline Phosphatase 83 (38-126) U/L Total Protein 7.4 (6.3-8.2) g/dL Albumin 4.0 (3.5-5.0) g/dL Globulin 3.4 (1.7-4.1) g/dL Albumin/Globulin Ratio 1.2 (1.0-2.8) Point of Care Testing Test Results Negative Urine Dip Bedside Urine Glucose Negative Bedside Urine Bilirubin - Negative Bedside Urine Ketone - Negative Urine Specific [place] 1.010 Bedside Urine Occult Blood - Negative Bedside Urine pH 7.0 Bedside Urine Protein - Negative Bedside Urine Urobilinogen - Negative Bedside Urine Nitrite - Negative Bedside Urine Leukocytes - Negative Esterase Discharge Plan Departure Patient Disposition: Home Clinical Impression: Back pain of lumbar region with sciatica Discharge Date/Time: 01/13/19 19:22 Interventions: ED Discharge Assessment Last Done: 01/13/19 19:21 Instructions: DI for Sciatica, DI for Muscle Strain Activity Restrictions/Additional Instructions: Please follow up with your pain management as well as her surgeon. Your lab work and CT scan was grossly normal today. Please monitor for signs of infection such as redness, swelling, fever. Please follow up with any of these occur. Please do not take ibuprofen along with the Toradol prescription. Prescriptions: New ketorolac 10 mg tablet 10 mg PO TID PRN (Reason: pain) Qty: 20 RF: 0 prednisone 50 mg tablet 50 mg PO DAILY Qty: 5 RF: 0 No Action morphine 15 mg tablet extended release 15 mg PO Q12H RF: 0 Diatrue Plus Test Strip strip .ROUTE .MEDSUPPLY Qty: 50 RF: 12 blood-glucose meter [Diatrue Plus Blood Glucose Met] misc .ROUTE .MEDSUPPLY Qty: 1 RF: 0 lancets [Easy Touch Twist Lancets] 33 gauge misc .ROUTE .MEDSUPPLY Qty: 100 RF: 3 ketoconazole 2 % shampoo 1 thomas Topical DIRECTED Qty: 0 RF: 0 ipratropium-albuterol [Combivent Respimat] 20-100 mcg/actuation mist 1 puff INHALATION TID Qty: 1 RF: 5 pregabalin 150 mg capsule 150 mg PO BID Qty: 60 RF: 5 furosemide 20 mg tablet 20 mg PO DAILY Qty: 90 RF: 1 metoprolol tartrate 50 mg tablet 50 mg PO BID Qty: 180 RF: 1 omeprazole 20 mg capsule,delayed release(DR/EC) 20 mg PO BID Qty: 180 RF: 1 levothyroxine 50 mcg tablet 50 mcg PO DAILY Qty: 90 RF: 3 cyclobenzaprine 10 mg tablet 10 mg PO TID RF: 0 acetaminophen [Tylenol Extra Strength] 500 mg tablet 1,000 mg PO BID RF: 0 docusate sodium [Col-Rite] 250 mg capsule 250 mg PO DAILY RF: 0 hydromorphone 4 mg tablet 2 - 4 mg PO Q4-6H MDD 6 tabs PRN (Reason: pain) RF: 0 Narcan 4 mg/actuation spray,non-aerosol 1 dose intranasal .ONCE PRN (Reason: Opiate Reversal) RF: 0 duloxetine 30 mg capsule,delayed release(DR/EC) 60 mg PO DAILY RF: 0 terazosin 5 mg capsule 5 mg PO BEDTIME RF: 0 amitriptyline 25 mg tablet 25 mg PO DAILY RF: 0 aripiprazole [Abilify] 5 mg tablet 5 mg PO DAILY RF: 0 oxycodone 15 mg tablet 7.5 mg PO BID MDD 1 tab RF: 0 Referrals: lAejandra Lynch MD [Primary Care Provider] - <Jenna Caceres DO - Last Filed: 01/14/19 18:41> Cosign ED Attending Cosignature Attestation: I was immediately available in the department for consultation. This documentation has been reviewed and I agree with assessment and plan. Supervised by Jenna Caceres DO
== END 2019-01-13 19:22 | disposition home or self-care (01) ==
PROVIDERS: Emergency Provider Nurse Practitioner Family; PCP Family Medicine
DX: M54.5 Low back pain (principal)
CPT/HCPCS: 36415; 72131; 80053; 81003; 81025; 85025; 96372; 99282; 99284; J1885

== ENCOUNTER → 2019-02-09 15:39 | Outpatient (CLI) | payer OTHER, SELFPAY ==
--- NOTE | 2019-02-09 15:40 | DI.US.S_ITS ---
PROCEDURE: US PERIPH VENOUS LOW EXTREM RT INDICATIONS: NEW UNILAT LEG EDEMA, R/O DVT TECHNIQUE: Real-time imaging, as well as color and pulse Doppler interrogation, were performed of the lower extremity deep veins from the inguinal ligament to the popliteal fossa. COMPARISON: None. FINDINGS: The common femoral, femoral and popliteal veins are normally compressible, and free of intraluminal thrombus. Color and pulse Doppler demonstrate normal phasic intraluminal flow. There is normal augmentation response to distal compression maneuver. IMPRESSION: Negative right lower extremity duplex ultrasound for DVT. Dictated by: Sergio Galvez M.D. on 02/09/2019 at 16:21 Approved by: Sergio Galvez M.D. on 02/09/2019 at 16:23
== END ==
PROVIDERS: PCP Family Medicine; Visit Provider Family Medicine
DX: R60.0 Localized edema (principal)
CPT/HCPCS: 93971

== ENCOUNTER 2019-02-11 05:41 | Emergency (ER) | payer OTHER, SELFPAY ==
[2019-02-11 05:53] VITALS: BP 156/93; PULSE 130; RESP 20; TEMP 36.6; O2SAT 97
--- NOTE | 2019-02-11 05:53 | ED_ITS ---
HPI - Female Genitourinary General Chief complaint: Urogenital-Female Stated complaint: STATES URINARY RETENTION BACK PAIN HBP Time Seen by Provider: 02/11/19 05:53 Source: patient Mode of arrival: Ambulatory Limitations: no limitations History of Present Illness HPI Narrative: Patient is a 38-year-old female who presents with inability to urinate. She states that she last P dad about midnight. She has fullness in her bladder she says that she tried going but was unable to. She has had urinary retention in the past. She does have chronic ongoing back pain she had a lumbar fusion 8 weeks ago. She denies any new or worsening back pain no weakness numbness or tingling in her lower extremities. She is on multiple medications. They previously thought her urinary retention was due to his some medications. She denies any fever or chills. She states she just had an ultrasound on the right leg to rule out any DVT his it is more swollen. She is supposed were compression socks to help with fluid retention. Related Data Home Medications Medication Instructions Recorded Confirmed ketoconazole 1 thomas TOPICAL DIRECTED #0 04/07/17 01/13/19 acetaminophen 500 mg tablet 1,000 mg PO BID tab 09/23/18 01/13/19 amitriptyline 25 mg PO DAILY 09/23/18 01/13/19 aripiprazole [Abilify] 5 mg PO DAILY 09/23/18 01/13/19 terazosin 5 mg PO BEDTIME 09/23/18 01/13/19 cyclobenzaprine 10 mg tablet 10 mg PO TID tab 12/08/18 01/13/19 oxycodone 15 mg tablet 7.5 mg PO BID tab MDD 1 tab 12/08/18 01/13/19 docusate sodium [Col-Rite] 250 mg PO DAILY 01/13/19 01/13/19 duloxetine 60 mg PO DAILY 01/13/19 01/13/19 hydromorphone 2 - 4 mg PO Q4-6H PRN MDD 6 tabs 01/13/19 01/13/19 naloxone [Narcan] 1 dose INTRANASAL .ONCE PRN 01/13/19 01/13/19 ibuprofen 800 mg tablet 800 mg PO TID 02/09/19 02/09/19 morphine 15 mg tablet,extended 15 mg PO Q8H tab 02/09/19 02/09/19 release Previous Rx's Medication Instructions Recorded ipratropium 20 mcg-albuterol 100 1 puff INHALATION TID #1 inh 12/01/17 mcg/actuation mist for inhalation omeprazole 20 mg capsule,delayed 20 mg PO BID #180 cap 11/17/18 release blood sugar diagnostic #50 each 12/08/18 blood-glucose meter #1 each 12/08/18 lancets 33 gauge #100 each 12/08/18 levothyroxine 50 mcg tablet 50 mcg PO DAILY #90 tab 12/13/18 ketorolac 10 mg PO TID PRN #20 tab 01/13/19 prednisone 50 mg PO DAILY #5 tab 01/13/19 furosemide 20 mg tablet 20 mg PO DAILY #90 tab 02/02/19 metoprolol tartrate 50 mg tablet 50 mg PO BID #180 tab 02/02/19 pregabalin 150 mg capsule 150 mg PO BID #60 cap 02/08/19 TENS units #1 each 02/09/19 Allergies Allergy/AdvReac Type Severity Reaction Status Date / Time carisoprodol [CARISOPRODOL] AdvReac Severe urinary Verified 02/09/19 12:05 retention Review of Systems Review of Systems ROS Unobtainable: All systems reviewed & are unremarkable except as noted in HPI and below Constitutional Constitutional: Denies chills, Denies fever(s), Denies lethargy and Denies weakness Eyes Eyes: Denies change in vision, Denies eye discharge, Denies irritation and Denies loss of vision ENT Ears, Nose, Mouth, and Throat: Denies change in voice, Denies neck pain and Denies sore throat Cardiovascular Cardiovascular: Denies chest pain, Denies irregular heart rhythm, Denies lightheadedness, Denies palpitations, Denies dyspnea, Denies dyspnea on exertion and Denies orthopnea Respiratory Respiratory: Denies cough, Denies dyspnea, Denies dyspnea on exertion and Denies wheezing Gastrointestinal Gastrointestinal: Denies abdominal pain, Denies change in bowel habits, Denies diarrhea, Denies nausea and Denies vomiting Genitourinary Genitourinary: Reports as per HPI Musculoskeletal Musculoskeletal: Reports back pain (Chronic) and Denies neck pain Integumentary/Breasts Skin/Breast: Denies pruritus, Denies erythema, Denies rash and Denies wounds Neurologic Neurologic: Denies loss of vision and Denies weakness Endocrine Endocrine: Denies palpitations Allergic/Immunologic Allergic/Immunologic: Denies wheezing [facility] Medical History Acetaminophen overdose of undetermined intent (Resolved 12/2015) Cubital tunnel syndrome (Chronic) Fibromyalgia (Chronic 2014) Intraoperative cardiac arrest during non-cardiac surgery (Resolved 11/2013) 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 (Chronic) Ovarian cyst (Chronic) Plantar fasciitis (Chronic) Suicide attempt (Resolved) Surgical History History of carpal tunnel repair (Resolved 10/30/14) S/P epidural steroid injection (Resolved 11/2013) Status post dilation and curettage (Resolved 2008) Status post laminectomy (Resolved 09/2016) Family History Grandfather Diabetes mellitus Family/Other Pancreatic cancer Social History Smoking Status: Former smoker Family History Grandfather Diabetes mellitus Family/Other Pancreatic cancer Social History Smoking Status: Former smoker Exam Initial Vital Signs Initial Vital Signs: Vital Signs Temperature 98 F 02/11/19 05:53 Pulse Rate 130 H 02/11/19 05:53 Respiratory Rate 20 02/11/19 05:53 Blood Pressure 156/93 H 02/11/19 05:53 Pulse Oximetry 97 02/11/19 05:53 GENERAL: Alert pleasant female and in no acute distress. HEENT: Head atraumatic,EOMI, pupils reactive, face symmetric, CARDIOVASCULAR: Regular rate and rhythm without murmurs, rubs or gallops. RESPIRATORY: Breath sounds equal bilaterally, no wheezes rales or rhonchi. ABDOMEN: Soft, tender suprapubic area no guarding or rebound : No CVA tenderness EXTREMITIES: Normal range of motion, no clubbing or edema. Neurovascularly intact. Right leg is slightly more swollen than left NEUROLOGICAL: Alert and oriented x4.Normal gait and speech. Cranial nerves II through XII grossly intact. SKIN: Warm, dry, no laceration, no petechiae, no rashes or lesions. Course Vital Signs Vital signs: Vital Signs - 8 hr 02/11/19 05:53 Temperature 98 F Pulse Rate 130 H Respiratory Rate 20 Blood Pressure 156/93 H Pulse Oximetry 97 MDM - Female Genitourinary MDM Narrative Medical decision making narrative: The patient does not have any back pain no focal deficits. She has a history of urinary retention. At this time I do not think cauda equina. She has minimal urine in her bladder. At this time she would like to try and urinate on her own. She is drinking fluids. Possible urinary urgency and possible UTI. Patient signed out to Dr. Eckert for further management Discharge Plan Departure Prescriptions: No Action (DME) Diatrue Plus Test Strip strip See Dose Instructions .ROUTE .MEDSUPPLY Qty: 50 RF: 12 (DME) blood-glucose meter [Diatrue Plus Blood Glucose Met] misc See Dose Instructions .ROUTE .MEDSUPPLY Qty: 1 RF: 0 (DME) lancets [Easy Touch Twist Lancets] 33 gauge misc See Dose Instructions .ROUTE .MEDSUPPLY Qty: 100 RF: 3 morphine 15 mg tablet extended release 15 mg PO Q8H RF: 0 ibuprofen 800 mg tablet 800 mg PO TID RF: 0 (DME) TENS units device See Rx Instructions .ROUTE .MEDSUPPLY Qty: 1 RF: 0 ketoconazole 2 % shampoo 1 thomas Topical DIRECTED Qty: 0 RF: 0 ipratropium-albuterol [Combivent Respimat] 20-100 mcg/actuation mist 1 puff INHALATION TID Qty: 1 RF: 5 omeprazole 20 mg capsule,delayed release(DR/EC) 20 mg PO BID Qty: 180 RF: 1 levothyroxine 50 mcg tablet 50 mcg PO DAILY Qty: 90 RF: 3 furosemide 20 mg tablet 20 mg PO DAILY Qty: 90 RF: 1 metoprolol tartrate 50 mg tablet 50 mg PO BID Qty: 180 RF: 1 pregabalin 150 mg capsule 150 mg PO BID Qty: 60 RF: 5 cyclobenzaprine 10 mg tablet 10 mg PO TID RF: 0 acetaminophen [Tylenol Extra Strength] 500 mg tablet 1,000 mg PO BID RF: 0 docusate sodium [Col-Rite] 250 mg capsule 250 mg PO DAILY RF: 0 hydromorphone 4 mg tablet 2 - 4 mg PO Q4-6H MDD 6 tabs PRN (Reason: pain) RF: 0 Narcan 4 mg/actuation spray,non-aerosol 1 dose intranasal .ONCE PRN (Reason: Opiate Reversal) RF: 0 duloxetine 30 mg capsule,delayed release(DR/EC) 60 mg PO DAILY RF: 0 ketorolac 10 mg tablet 10 mg PO TID PRN (Reason: pain) Qty: 20 RF: 0 prednisone 50 mg tablet 50 mg PO DAILY Qty: 5 RF: 0 terazosin 5 mg capsule 5 mg PO BEDTIME RF: 0 amitriptyline 25 mg tablet 25 mg PO DAILY RF: 0 aripiprazole [Abilify] 5 mg tablet 5 mg PO DAILY RF: 0 oxycodone 15 mg tablet 7.5 mg PO BID MDD 1 tab RF: 0
[2019-02-11 07:15] VITALS: BP 155/78; PULSE 75; RESP 18; O2SAT 96
[2019-02-11 09:16] VITALS: BP 114/73; PULSE 100; RESP 18; TEMP 36.3; O2SAT 97
--- NOTE | 2019-02-11 09:23 | PC.NURSE ---
teaching done on [facility]. leg bag switched over. pt reports that she has had a leg bag before and understands the care.
== END 2019-02-11 09:16 | disposition home or self-care (01) ==
PROVIDERS: Emergency Provider Emergency Medicine; PCP Family Medicine
DX: R33.9 Retention of urine, unspecified (principal)
CPT/HCPCS: 51701; 51798; 81003; 81025; 99284

== ENCOUNTER 2019-02-11 13:55 | Emergency (ER) | payer OTHER, SELFPAY ==
[2019-02-11 14:04] VITALS: BP 157/93; PULSE 136; RESP 19; TEMP 36.4; O2SAT 96; BMI 42.3
--- NOTE | 2019-02-11 14:38 | ED_ITS ---
HPI - Altered Mental Status General Chief Complaint: Altered Mental Status Stated Complaint: confusion Time Seen by Provider: 02/11/19 14:30 Source: patient and family Mode of arrival: Ambulatory Limitations: altered mental status History of Present Illness HPI narrative: 38-year-old female nonsmoker with hypertension, diabetes returns for the 2nd time today. She was seen and evaluated earlier with a chief compla int of inability to urinate, she has a history of urinary retention. She had over 1 L of urine in her bladder and had near immediate resolution and improvement with a Shea catheter. Approximately 1 hour after she was discharged home she started acting confused and brought this to her 's at [facility]. She had no other neurologic symptoms. They called their primary care provider and were directed to present to the emergency department. While in route the patient started developing palpitations and chest pain. She is not dizzy or lightheaded. She denies any injury, falls. She has had no fever or chills. The confusion is evidenced by her demanding to use a home phone, her states they do not have 1 and never have. Additionally she states she had never cross the septum past bridge, however she had done it already today and has done it frequently. She has had no change in her medications or diet MD complaint: altered mental status and confusion Onset (ago): hour(s) Timing confirmed by: spouse Severity: moderate Consistency of symptoms: constant Associated symptoms: chest pain Related Data Home Medications Medication Instructions Recorded Confirmed ketoconazole 1 thomas TOPICAL DIRECTED #0 04/07/17 02/11/19 acetaminophen 500 mg tablet 1,000 mg PO BID tab 09/23/18 02/11/19 amitriptyline 25 mg PO QPM 09/23/18 02/11/19 aripiprazole [Abilify] 5 mg PO QPM 09/23/18 02/11/19 terazosin 5 mg PO BEDTIME 09/23/18 02/11/19 cyclobenzaprine 10 mg tablet 10 mg PO TID tab 12/08/18 02/11/19 oxycodone 15 mg tablet 7.5 mg PO BID tab MDD 1 tab 12/08/18 02/11/19 docusate sodium [Col-Rite] 250 mg PO BID 01/13/19 02/11/19 duloxetine 60 mg PO DAILY 01/13/19 02/11/19 naloxone [Narcan] 1 dose INTRANASAL .ONCE PRN 01/13/19 02/11/19 ibuprofen 800 mg tablet 800 mg PO TID 02/09/19 02/11/19 morphine 15 mg tablet,extended 15 mg PO Q8H tab 02/09/19 02/11/19 release Previous Rx's Medication Instructions Recorded ipratropium 20 mcg-albuterol 100 1 puff INHALATION TID #1 inh 12/01/17 mcg/actuation mist for inhalation omeprazole 20 mg capsule,delayed 20 mg PO BID #180 cap 11/17/18 release blood sugar diagnostic #50 each 12/08/18 blood-glucose meter #1 each 12/08/18 lancets 33 gauge #100 each 12/08/18 levothyroxine 50 mcg tablet 50 mcg PO DAILY #90 tab 12/13/18 furosemide 20 mg tablet 20 mg PO DAILY #90 tab 02/02/19 metoprolol tartrate 50 mg tablet 50 mg PO BID #180 tab 02/02/19 pregabalin 150 mg capsule 150 mg PO BID #60 cap 02/08/19 TENS units #1 each 02/09/19 Allergies Allergy/AdvReac Type Severity Reaction Status Date / Time carisoprodol [CARISOPRODOL] AdvReac Severe urinary Verified 02/09/19 12:05 retention Review of Systems Constitutional Constitutional: Denies chills, Denies fatigue, Denies fever(s), Denies frequent falls, Denies lethargy and Denies weakness Eyes Eyes: Denies change in vision, Denies eye discharge, Denies irritation and Denies loss of vision ENT Ears, Nose, Mouth, and Throat: Denies change in voice, Denies dizziness, Denies neck pain, Denies sore throat and Denies throat swelling Cardiovascular Cardiovascular: Denies chest pain, Denies irregular heart rhythm, Denies lightheadedness, Denies palpitations, Denies dyspnea, Denies dyspnea on exertion and Denies orthopnea Respiratory Respiratory: Denies cough, Denies dyspnea, Denies dyspnea on exertion and Denies wheezing Gastrointestinal Gastrointestinal: Denies abdominal pain, Denies change in bowel habits, Denies diarrhea, Denies nausea and Denies vomiting Genitourinary Genitourinary: Denies hematuria, Denies flank pain, Denies urinary incontinence and Denies urinary urgency Musculoskeletal Musculoskeletal: Denies back pain, Denies muscle weakness, Denies neck pain, Denies numbness and Denies tingling Integumentary/Breasts Skin/Breast: Denies pruritus, Denies erythema, Denies rash and Denies wounds Neurologic Neurologic: Denies behavioral changes, Denies confusion, Denies dizziness, Denies frequent falls, Denies loss of vision, Denies numbness, Denies tingling and Denies weakness Psychiatric Psychiatric: Denies anxiety, Denies behavioral changes, Denies confusion, Denies depression, Denies homicidal ideation and Denies suicidal ideation Endocrine Endocrine: Denies fatigue, Denies flushing and Denies palpitations Hematologic/Lymphatic Hematologic/Lymphatic: Denies easy bruising Allergic/Immunologic Allergic/Immunologic: Denies urticaria, Denies throat swelling and Denies wheezing Exam Narrative Exam Narrative: GENERAL: [38] year old patient appears stated age. Well- nourished, well-developed patient, in mild distress. GCS 14 HEAD: Atraumatic. Normocephalic. EYES: Pupils equal round and reactive. Extraocular motions intact. No scleral icterus. No injection or drainage. ENT: Nose without bleeding, purulent drainage. Throat without erythema, tonsillar hypertrophy or exudate. Airway patent. NECK: Trachea midline. Non tender CARDIOVASCULAR: Tachycardic and rhythm without murmurs, gallops, or rubs. RESPIRATORY: Clear to auscultation. Breath sounds equal bilaterally. No wheezes, rales, or rhonchi. GASTROINTESTINAL: Abdomen soft, non-tender, nondistended. EXTREMITIES: No edema or joint tenderness. BACK: Nontender without deformity or crepitance. No flank tenderness. NEURO: Does not know date or location. Aware of person SKIN: No rash or erythema of visible areas Initial Vital Signs Initial Vital Signs: Vital Signs Temperature 97.5 F L 02/11/19 14:04 Pulse Rate 136 H 02/11/19 14:04 Respiratory Rate 19 02/11/19 14:04 Blood Pressure 157/93 H 02/11/19 14:04 Pulse Oximetry 96 02/11/19 14:04 Course Orders Ordered: ED Orders 02/11/19 14:00 EKG-12 Lead Routine 02/11/19 14:35 Acetaminophen Stat Complete Blood Count AUTO DIFF Stat Comprehensive Metabolic Panel Stat D Dimer Stat Ethanol (ETOH) Stat Partial Thromboplastin Time Stat Prolactin Stat Prothrombin Time INR Stat Salicylate Stat T4 Total Thyroxine Stat Thyroid Stimulating Hormone Stat Troponin I Stat 02/11/19 14:36 CT head/brain wo con Stat 02/11/19 14:58 Blood Culture Stat Lactate (Lactic Acid) Stat 02/11/19 15:15 Urine Culture Stat Urine Drug Screen, Rapid Stat 02/11/19 15:56 CT angio chest PE protocol Stat Discontinued Medications Sodium Chloride (Normal Saline 0.9%) 1,000 mls @ 150 mls/hr IV CONT KRISTIN Last Infusion: 02/11/19 17:38 Dose: 0 mls/hr Documented by: Admin: 02/11/19 15:11 Dose: 150 mls/hr Documented by: GINETTE Vital Signs Vital signs: Vital Signs - 8 hr 02/11/19 14:04 02/11/19 17:31 02/11/19 17:39 Temperature 97.5 F L Pulse Rate 136 H 108 H 111 H Respiratory Rate 19 15 17 Blood Pressure 157/93 H 120/66 Blood Pressure [Left Arm] 120/66 Pulse Oximetry 96 94 MDM - Altered Mental Status Lab Data Result diagrams: 02/11/19 14:35 02/11/19 14:35 Labs: Lab Results 02/11/19 02/11/19 02/11/19 Range/Units 14:35 14:35 14:35 WBC 5.1 (4.5-11.0) X10^3/uL RBC 4.04 (4.0-5.2) X10^6/uL Hgb 11.5 L (12.0-16.0) g/dL Hct 34.3 L (36-46) % MCV 85.0 (80-100) fL MCH 28.5 (26-34) PG MCHC 33.5 (30-36) % RDW 14.3 (11.6-14.8) % Plt Count 214 (150-400) X10^3/uL Neut % (Auto) 54.9 (50-75) % Lymph % (Auto) 30.9 (25-40) % Arthur % (Auto) 10.2 (3-14) % Eos % (Auto) 3.7 (2-4) % Baso % (Auto) 0.3 (0-2) % Neut # (Auto) 2800 (9789-2202) /uL Lymph # (Auto) 1600 (1298-7036) /uL Arthur # (Auto) 500 (0-900) /uL Eos # (Auto) 200 (0-450) /uL Baso # (Auto) 0 (0-100) /uL PT 9.8 L (10.1-12.7) SECONDS INR 0.9 (0.9-1.3) APTT 28 (26.4-36.2) SECONDS D-Dimer (<230) ng/mL Sodium 140 (137-145) mmol/L Potassium 3.6 (3.4-5.1) mmol/L Chloride 100 (98-107) mmol/L Carbon Dioxide 30 (22-32) mmol/L BUN 8 (7-17) mg/dL Creatinine 0.60 (0.52-1.04) mg/dL Estimated GFR > 60.0 (>60) mL/min BUN/Creatinine Ratio 13.3 (6-22) Glucose 118 H (70-100) mg/dL Lactate (0.7-2.1) mmol/L Calcium 9.1 (8.4-10.2) mg/dL Total Bilirubin 0.3 (0.2-1.3) mg/dL AST 23 (14-36) IU/L ALT 15 (9-52) IU/L Alkaline Phosphatase 89 (38-126) U/L Troponin I < 0.012 (0.01-0.034) ng/mL Total Protein 7.2 (6.3-8.2) g/dL Albumin 4.0 (3.5-5.0) g/dL Globulin 3.2 (1.7-4.1) g/dL Albumin/Globulin Ratio 1.3 (1.0-2.8) TSH (0.47-4.68) uIU/mL Thyroxine (T4) (5.5-11.0) ug/dL Prolactin 16.3 (3.0-18.6) ng/mL Salicylates < 1.0 (<20) mg/dL Urine Opiates Screen (Negative) Ur Oxycodone Screen (Negative) Urine Methadone Screen (Negative) Acetaminophen < 10 L (10-30) ug/mL Ur Barbiturates Screen (Negative) U Tricyclic Antidepress (Negative) Ur Phencyclidine Scrn (Negative) Ur Amphetamines Screen (Negative) U Methamphetamines Scrn (Negative) Ur MDMA Scrn (Ecstasy) (Negative) U Benzodiazepines Scrn (Negative) Urine Cocaine Screen (Negative) U Marijuana (THC) Screen (Negative) Ethyl Alcohol < 10 ( - 10) mg/dL 02/11/19 02/11/19 02/11/19 Range/Units 14:35 14:35 14:35 WBC (4.5-11.0) X10^3/uL RBC (4.0-5.2) X10^6/uL Hgb (12.0-16.0) g/dL Hct (36-46) % MCV (80-100) fL MCH (26-34) PG MCHC (30-36) % RDW (11.6-14.8) % Plt Count (150-400) X10^3/uL Neut % (Auto) (50-75) % Lymph % (Auto) (25-40) % Arthur % (Auto) (3-14) % Eos % (Auto) (2-4) % Baso % (Auto) (0-2) % Neut # (Auto) (4821-0309) /uL Lymph # (Auto) (8892-6398) /uL Arthur # (Auto) (0-900) /uL Eos # (Auto) (0-450) /uL Baso # (Auto) (0-100) /uL PT (10.1-12.7) SECONDS INR (0.9-1.3) APTT (26.4-36.2) SECONDS D-Dimer 414 H (<230) ng/mL Sodium (137-145) mmol/L Potassium (3.4-5.1) mmol/L Chloride (98-107) mmol/L Carbon Dioxide (22-32) mmol/L BUN (7-17) mg/dL Creatinine (0.52-1.04) mg/dL Estimated GFR (>60) mL/min BUN/Creatinine Ratio (6-22) Glucose (70-100) mg/dL Lactate (0.7-2.1) mmol/L Calcium (8.4-10.2) mg/dL Total Bilirubin (0.2-1.3) mg/dL AST (14-36) IU/L ALT (9-52) IU/L Alkaline Phosphatase (38-126) U/L Troponin I (0.01-0.034) ng/mL Total Protein (6.3-8.2) g/dL Albumin (3.5-5.0) g/dL Globulin (1.7-4.1) g/dL Albumin/Globulin Ratio (1.0-2.8) TSH 4.32 (0.47-4.68) uIU/mL Thyroxine (T4) 6.61 (5.5-11.0) ug/dL Prolactin (3.0-18.6) ng/mL Salicylates (<20) mg/dL Urine Opiates Screen (Negative) Ur Oxycodone Screen (Negative) Urine Methadone Screen (Negative) Acetaminophen (10-30) ug/mL Ur Barbiturates Screen (Negative) U Tricyclic Antidepress (Negative) Ur Phencyclidine Scrn (Negative) Ur Amphetamines Screen (Negative) U Methamphetamines Scrn (Negative) Ur MDMA Scrn (Ecstasy) (Negative) U Benzodiazepines Scrn (Negative) Urine Cocaine Screen (Negative) U Marijuana (THC) Screen (Negative) Ethyl Alcohol ( - 10) mg/dL 02/11/19 02/11/19 Range/Units 14:58 15:15 WBC (4.5-11.0) X10^3/uL RBC (4.0-5.2) X10^6/uL Hgb (12.0-16.0) g/dL Hct (36-46) % MCV (80-100) fL MCH (26-34) PG MCHC (30-36) % RDW (11.6-14.8) % Plt Count (150-400) X10^3/uL Neut % (Auto) (50-75) % Lymph % (Auto) (25-40) % Arthur % (Auto) (3-14) % Eos % (Auto) (2-4) % Baso % (Auto) (0-2) % Neut # (Auto) (1341-8475) /uL Lymph # (Auto) (3396-5302) /uL Arthur # (Auto) (0-900) /uL Eos # (Auto) (0-450) /uL Baso # (Auto) (0-100) /uL PT (10.1-12.7) SECONDS INR (0.9-1.3) APTT (26.4-36.2) SECONDS D-Dimer (<230) ng/mL Sodium (137-145) mmol/L Potassium (3.4-5.1) mmol/L Chloride (98-107) mmol/L Carbon Dioxide (22-32) mmol/L BUN (7-17) mg/dL Creatinine (0.52-1.04) mg/dL Estimated GFR (>60) mL/min BUN/Creatinine Ratio (6-22) Glucose (70-100) mg/dL Lactate 1.7 (0.7-2.1) mmol/L Calcium (8.4-10.2) mg/dL Total Bilirubin (0.2-1.3) mg/dL AST (14-36) IU/L ALT (9-52) IU/L Alkaline Phosphatase (38-126) U/L Troponin I (0.01-0.034) ng/mL Total Protein (6.3-8.2) g/dL Albumin (3.5-5.0) g/dL Globulin (1.7-4.1) g/dL Albumin/Globulin Ratio (1.0-2.8) TSH (0.47-4.68) uIU/mL Thyroxine (T4) (5.5-11.0) ug/dL Prolactin (3.0-18.6) ng/mL Salicylates (<20) mg/dL Urine Opiates Screen Positive H (Negative) Ur Oxycodone Screen Positive H (Negative) Urine Methadone Screen Negative (Negative) Acetaminophen (10-30) ug/mL Ur Barbiturates Screen Negative (Negative) U Tricyclic Antidepress Positive H (Negative) Ur Phencyclidine Scrn Negative (Negative) Ur Amphetamines Screen Negative (Negative) U Methamphetamines Scrn Negative (Negative) Ur MDMA Scrn (Ecstasy) Negative (Negative) U Benzodiazepines Scrn Negative (Negative) Urine Cocaine Screen Negative (Negative) U Marijuana (THC) Screen Negative (Negative) Ethyl Alcohol ( - 10) mg/dL Imaging Data CT scan - head: Radiologist's impression: [address] [address] [address] Scan Report Signed Patient: Nuvia Alvarado [facility]#: [id number] : 1980Acct:[id number] Age/Sex: 38 / FDate of Service: 02/11/19 Loc: ED Accession Number: [id number] Procedure: CT head/brain wo con Ordering Provider: Dank Ecketr D.O. PROCEDURE: CT HEAD/BRAIN WO CON INDICATIONS: mental status change TECHNIQUE: Noncontrast 4.5 mm thick angled axial sections acquired from the foramen magnum to the vertex, with coronal and sagittal reformats. For radiation dose reduction, the following was used: automated exposure control, adjustment of mA and/or kV according to patient size. COMPARISON: None. FINDINGS: Image quality: Excellent. CSF spaces: Basal cisterns are patent. No extra-axial fluid collections. Ventricles are normal in size and shape. Brain: No midline shift. No intracranial masses or hemorrhage. Waterman-white mat ter interface is normal. Skull and face: Calvarium and visualized facial bones are intact, without suspicious lesions. Sinuses: Visualized sinuses and mastoids are clear. IMPRESSION: No acute intracranial process is seen. Dictated by: Rickie Lundberg M.D. on 02/11/2019 at 15:14 Approved by: Rickie Lundberg M.D. on 02/11/2019 at 15:15 CT scan - chest: Radiologist's impression: [place] [address] CT Scan Report Signed Patient: Nuvia Alvarado [facility]#: [id number] : 1980Acct:[id number] Age/Sex: 38 / FDate of Service: 02/11/19 Loc: ED Accession Number: [id number] Procedure: CT angio chest PE protocol Ordering Provider: Dank Eckert D.O. PROCEDURE: CT ANGIO CHEST PE PROTOCOL INDICATIONS: CP, SOB, tachycardia, critical D dimer TECHNIQUE: After the administration of intravenous contrast, 2 mm thick sections acquired from the pulmonary apices to the posterior costophrenic angles. 3-dimensional maximum intensity projection (MIP) coronal and sagittal reformats were then acquired through the thorax. For radiation dose reduction, the following was used: automated exposure control, adjustment of mA and/or kV according to patient size. COMPARISON: None. FINDINGS: Image quality: Excellent. Pulmonary arteries: Pulmonary arteries are normal in size, and demonstrate no intraluminal filling defects to suggest central pulmonary embolism. Lungs and pleura: Mild consolidation is noted within the right middle lobe, lingula, and posterior left lower lobe. No effusion or pneumothorax is evident. No lung mass or definite pulmonary nodule is evident. Mediastinum: Heart size is mildly enlarged, without pericardial effusion. No mediastinal or hilar adenopathy. However, multiple subcentimeter lymph nodes are seen within the mediastinum. Thoracic aorta is normal in caliber and enhancement. Esophagus is normal in caliber, without hiatal hernia. Bones and chest wall: No suspicious bony lesions. Ribs and thoracic spine appear intact throughout. Thyroid gland is not enlarged for adequately evaluated. No axillary or supraclavicular adenopathy. Abdomen: The liver appears to be subjectively prominent, but is not completely included on this examination are adequately evaluated. IMPRESSION: 1. No evidence of pulmonary embolus and. 2. Borderline cardiomegaly. 3. Patchy areas of consolidation within the right middle lobe and the left upper lobe, and left lower lobe is suspicious for multifocal pneumonia versus atelectasis. Please correlate clinically. Dictated by: Ge Flor M.D. on 02/11/2019 at 15:30 Approved by: Ge Flor M.D. on 02/11/2019 at 15:35 Discharge Plan Departure Patient Disposition: Home Clinical Impression: Feared complaint without diagnosis, Acute confusion Discharge Date/Time: 02/11/19 17:39 Activity Restrictions/Additional Instructions: *You have been diagnosed with [confusion which has resolved and atypical chest pain] *What to do: *Take medications as directed *Follow up with your primary care provider in 2-3 days, call for an appointment. Let them know you were seen in the Emergency Department and that we ask that you be seen in follow up *Return to ER if you should have any new, worsening or concerning symptoms Prescriptions: No Action (DME) Diatrue Plus Test Strip strip See Dose Instructions .ROUTE .MEDSUPPLY Qty: 50 RF: 12 (DME) blood-glucose meter [Diatrue Plus Blood Glucose Met] misc See Dose Instructions .ROUTE .MEDSUPPLY Qty: 1 RF: 0 (DME) lancets [Easy Touch Twist Lancets] 33 gauge misc See Dose Instructions .ROUTE .MEDSUPPLY Qty: 100 RF: 3 morphine 15 mg tablet extended release 15 mg PO Q8H RF: 0 ibuprofen 800 mg tablet 800 mg PO TID RF: 0 (DME) TENS units device See Rx Instructions .ROUTE .MEDSUPPLY Qty: 1 RF: 0 ketoconazole 2 % shampoo 1 thomas Topical DIRECTED Qty: 0 RF: 0 ipratropium-albuterol [Combivent Respimat] 20-100 mcg/actuation mist 1 puff INHALATION TID Qty: 1 RF: 5 omeprazole 20 mg capsule,delayed release(DR/EC) 20 mg PO BID Qty: 180 RF: 1 levothyroxine 50 mcg tablet 50 mcg PO DAILY Qty: 90 RF: 3 furosemide 20 mg tablet 20 mg PO DAILY Qty: 90 RF: 1 metoprolol tartrate 50 mg tablet 50 mg PO BID Qty: 180 RF: 1 pregabalin 150 mg capsule 150 mg PO BID Qty: 60 RF: 5 cyclobenzaprine 10 mg tablet 10 mg PO TID RF: 0 acetaminophen [Tylenol Extra Strength] 500 mg tablet 1,000 mg PO BID RF: 0 docusate sodium [Col-Rite] 250 mg capsule 250 mg PO BID RF: 0 Narcan 4 mg/actuation spray,non-aerosol 1 dose intranasal .ONCE PRN (Reason: Opiate Reversal) RF: 0 duloxetine 30 mg capsule,delayed release(DR/EC) 60 mg PO DAILY RF: 0 terazosin 5 mg capsule 5 mg PO BEDTIME RF: 0 amitriptyline 25 mg tablet 25 mg PO QPM RF: 0 aripiprazole [Abilify] 5 mg tablet 5 mg PO QPM RF: 0 oxycodone 15 mg tablet 7.5 mg PO BID MDD 1 tab RF: 0 Referrals: Alejandra Lynch MD [Primary Care Provider] -
[2019-02-11 14:47] LABS: Add Manual Diff / Slide Review NO; Basophils Absolute Auto 0 /uL (0-100); Basophils Percent Auto 0.3 % (0-2); Eosinophils Absolute Auto 200 /uL (0-450); Eosinophils Percent Auto 3.7 % (2-4); Hematocrit 34.3 % (36-46); Hemoglobin 11.5 g/dL (12.0-16.0); Lymphocytes Absolute Auto 1600 /uL (1100-4500); Lymphocytes Percent Auto 30.9 % (25-40); Mean Corpuscular HGB Conc 33.5 % (30-36); Mean Corpuscular Hemoglobin 28.5 PG (26-34); Monocytes Absolute Auto 500 /uL (0-900); Monocytes Percent Auto 10.2 % (3-14); Neutrophils Absolute Auto 2800 /uL (1500-7000); Neutrophils Percent Auto 54.9 % (50-75); Platelet Count 214 X10^3/uL (150-400); Red Blood Cell Count 4.04 X10^6/uL (4.0-5.2); Red Cell Distribution Width 14.3 % (11.6-14.8); White Blood Cell Count 5.1 X10^3/uL (4.5-11.0)
[2019-02-11 14:54] LABS: INR 0.9 (0.9-1.3); Prothrombin Time 9.8 SECONDS (10.1-12.7)
[2019-02-11 14:57] LABS: PTT Partial Thromboplastin Tim 28 SECONDS (26.4-36.2)
[2019-02-11 15:02] LABS: Acetaminophen < 10 ug/mL (10-30); Alanine Aminotransferase 15 IU/L (9-52); Albumin Globulin Ratio 1.3 (1.0-2.8); Alkaline Phosphatase 89 U/L (38-126); Aspartate Aminotransferase 23 IU/L (14-36); BUN Creatinine Ratio 13.3 (6-22); Bilirubin Total 0.3 mg/dL (0.2-1.3); Blood Urea Nitrogen 8 mg/dL (7-17); Calcium 9.1 mg/dL (8.4-10.2); Carbon Dioxide 30 mmol/L (22-32); Chloride 100 mmol/L (98-107); Estimated Glomerular Filt Rate > 60.0 mL/min (>60); Ethanol (ETOH) < 10 mg/dL; Globulin 3.2 g/dL (1.7-4.1); Glucose 118 mg/dL (70-100); HEMOLYSIS < 15 (0-50); Potassium 3.6 mmol/L (3.4-5.1); Salicylate < 1.0 mg/dL (<20); Sodium 140 mmol/L (137-145); Total Protein 7.2 g/dL (6.3-8.2)
[2019-02-11 15:05] LABS: D Dimer 414 ng/mL (<230)
[2019-02-11] MEDS: SODIUM CHLORIDE 0.9% 1,000 ML 150 ML IV (15:11)
[2019-02-11 15:14] LABS: Troponin I < 0.012 ng/mL (0.01-0.034)
[2019-02-11 15:18] LABS: T4 Total Thyroxine 6.61 ug/dL (5.5-11.0)
[2019-02-11 15:19] LABS: Prolactin 16.3 ng/mL (3.0-18.6)
[2019-02-11 15:25] LABS: Lactate (Lactic Acid) 1.7 mmol/L (0.7-2.1)
[2019-02-11 15:33] LABS: Thyroid Stimulating Hormone 4.32 uIU/mL (0.47-4.68)
[2019-02-11 15:33] LABS: Urine Amphetamines Negative (Negative); Urine Barbiturates Negative (Negative); Urine Benzodiazepines Negative (Negative); Urine Cocaine Negative (Negative); Urine MDMA Negative (Negative); Urine Methadone Negative (Negative); Urine Methamphetamines Negative (Negative); Urine Morphine/Opi cutoff 2000 Positive (Negative); Urine Oxycodone Positive (Negative); Urine Phencyclidine Negative (Negative); Urine THC Negative (Negative); Urine Tricyclic Antidepressant Positive (Negative)
--- NOTE | 2019-02-11 15:56 | DI.CT.S_ITS ---
PROCEDURE: CT ANGIO CHEST PE PROTOCOL INDICATIONS: CP, SOB, tachycardia, critical D dimer TECHNIQUE: After the administration of intravenous contrast, 2 mm thick sections acquired from the pulmonary apices to the posterior costophrenic angles. 3-dimensional maximum intensity projection (MIP) coronal and sagittal reformats were then acquired through the thorax. For radiation dose reduction, the following was used: automated exposure control, adjustment of mA and/or kV according to patient size. COMPARISON: None. FINDINGS: Image quality: Excellent. Pulmonary arteries: Pulmonary arteries are normal in size, and demonstrate no intraluminal filling defects to suggest central pulmonary embolism. Lungs and pleura: Mild consolidation is noted within the right middle lobe, lingula, and posterior left lower lobe. No effusion or pneumothorax is evident. No lung mass or definite pulmonary nodule is evident. Mediastinum: Heart size is mildly enlarged, without pericardial effusion. No mediastinal or hilar adenopathy. However, multiple subcentimeter lymph nodes are seen within the mediastinum. Thoracic aorta is normal in caliber and enhancement. Esophagus is normal in caliber, without hiatal hernia. Bones and chest wall: No suspicious bony lesions. Ribs and thoracic spine appear intact throughout. Thyroid gland is not enlarged for adequately evaluated. No axillary or supraclavicular adenopathy. Abdomen: The liver appears to be subjectively prominent, but is not completely included on this examination are adequately evaluated. IMPRESSION: 1. No evidence of pulmonary embolus and. 2. Borderline cardiomegaly. 3. Patchy areas of consolidation within the right middle lobe and the left upper lobe, and left lower lobe is suspicious for multifocal pneumonia versus atelectasis. Please correlate clinically. Dictated by: Ge Flor M.D. on 02/11/2019 at 15:30 Approved by: Ge Flor M.D. on 02/11/2019 at 15:35
[2019-02-11 17:31] VITALS: BP 120/66; PULSE 108; RESP 15
[2019-02-11 17:39] VITALS: BP 120/66; PULSE 111; RESP 17; O2SAT 94
== END 2019-02-11 17:39 | disposition home or self-care (01) ==
PROVIDERS: Emergency Provider Emergency Medicine; PCP Family Medicine
DX: R41.0 Disorientation, unspecified (principal); Z71.1 Person with feared health complaint in whom no diagnosis is made; R00.0 Tachycardia, unspecified
CPT/HCPCS: 36415; 36591; 51701; 51798; 70450; 71275; 80053; 80305; 80320; 80329; 81003; 81025; 83605; 84146; 84436; 84443; 84484; 85025; 85379; 85610; 85730; 87040; 87086; 93005; 96360; 96361; 99283; 99284; 99285; G0480; Q9967

== ENCOUNTER 2019-02-12 17:49 | Emergency (ER) | payer OTHER, SELFPAY ==
[2019-02-12 18:00] VITALS: BP 143/86; PULSE 106; RESP 19; TEMP 36.9; O2SAT 100
--- NOTE | 2019-02-12 18:36 | ED_ITS ---
HPI - Neuro Symptoms/Deficit General Chief Complaint: Neuro Symptoms/Deficit Stated Complaint: confusion is back Time Seen by Provider: 02/12/19 18:03 Source: patient and family Mode of arrival: Wheelchair Limitations: no limitations History of Present Illness HPI Narrative: Patient is a 38-year-old female here for evaluation of multiple complaints. She was seen here in the emergency department several days ago and had an extensive workup for cardiovascular disease pulmonary embolism. She returns today for a ?warm? feeling in her heart. She also states that she has been confused. Her states that she sometimes sees things that are not there. 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 He states that she does not sleep at night. She states that she does not sleep at night because her legs hurt. She does see pain management for this. She is awaiting approval by insurance to have steroid injections in her back. Her states that she is falling asleep when she is eating. Patient was sleeping when I walked into the room. On Anticoagulants: No Related Data Home Medications Medication Instructions Recorded Confirmed ketoconazole 1 thomas TOPICAL DIRECTED #0 04/07/17 02/11/19 acetaminophen 500 mg tablet 1,000 mg PO BID tab 09/23/18 02/11/19 amitriptyline 25 mg PO QPM 09/23/18 02/11/19 aripiprazole [Abilify] 5 mg PO QPM 09/23/18 02/11/19 terazosin 5 mg PO BEDTIME 09/23/18 02/11/19 cyclobenzaprine 10 mg tablet 10 mg PO TID tab 12/08/18 02/11/19 oxycodone 15 mg tablet 7.5 mg PO BID tab MDD 1 tab 12/08/18 02/11/19 docusate sodium [Col-Rite] 250 mg PO BID 01/13/19 02/11/19 duloxetine 60 mg PO DAILY 01/13/19 02/11/19 naloxone [Narcan] 1 dose INTRANASAL .ONCE PRN 01/13/19 02/11/19 ibuprofen 800 mg tablet 800 mg PO TID 02/09/19 02/11/19 morphine 15 mg tablet,extended 15 mg PO Q8H tab 02/09/19 02/11/19 release Previous Rx's Medication Instructions Recorded ipratropium 20 mcg-albuterol 100 1 puff INHALATION TID #1 inh 12/01/17 mcg/actuation mist for inhalation omeprazole 20 mg capsule,delayed 20 mg PO BID #180 cap 11/17/18 release blood sugar diagnostic #50 each 12/08/18 blood-glucose meter #1 each 12/08/18 lancets 33 gauge #100 each 12/08/18 levothyroxine 50 mcg tablet 50 mcg PO DAILY #90 tab 12/13/18 furosemide 20 mg tablet 20 mg PO DAILY #90 tab 02/02/19 metoprolol tartrate 50 mg tablet 50 mg PO BID #180 tab 02/02/19 pregabalin 150 mg capsule 150 mg PO BID #60 cap 02/08/19 TENS units #1 each 02/09/19 trazodone 50 mg PO BEDTIME PRN #14 tab 02/12/19 Allergies Allergy/AdvReac Type Severity Reaction Status Date / Time carisoprodol [CARISOPRODOL] AdvReac Severe urinary Verified 02/09/19 12:05 retention Review of Systems Constitutional Constitutional: Denies fever(s) and Denies headache(s) ENT Ears, Nose, Mouth, and Throat: Denies headache(s) Cardiovascular Cardiovascular: Reports chest pain (She describes as a ?warm? feeling), Denies edema, Denies palpitations and Denies dyspnea Respiratory Respiratory: Denies cough and Denies dyspnea Gastrointestinal Gastrointestinal: Denies abdominal pain, Denies change in bowel habits, Denies diarrhea and Denies vomiting Genitourinary Comments: Shea catheter in place from her urinary retention a couple days ago Musculoskeletal Musculoskeletal: Reports back pain Comments: Right leg pain Integumentary/Breasts Skin/Breast: Denies lesions and Denies rash Neurologic Neurologic: Denies behavioral changes, Reports confusion and Denies headache(s) Comments: Falls asleep easy Psychiatric Psychiatric: Denies anxiety, Denies behavioral changes, Reports confusion, Denies depression and Reports hallucinations Endocrine Endocrine: Denies palpitations Hematologic/Lymphatic Hematologic/Lymphatic: Denies easy bleeding and Denies easy bruising [facility] Medical History Acetaminophen overdose of undetermined intent (Resolved 12/2015) Cubital tunnel syndrome (Chronic) Fibromyalgia (Chronic 2014) Intraoperative cardiac arrest during non-cardiac surgery (Resolved 11/2013) 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 (Chronic) Ovarian cyst (Chronic) Plantar fasciitis (Chronic) Suicide attempt (Resolved) Social History Smoking Status: Former smoker Exam Initial Vital Signs Initial Vital Signs: Vital Signs Temperature 98.5 F 02/12/19 18:00 Pulse Rate 106 H 02/12/19 18:00 Respiratory Rate 19 02/12/19 18:00 Blood Pressure 143/86 H 02/12/19 18:00 Pulse Oximetry 100 02/12/19 18:00 Const General: comfortable, well developed and well groomed Nutritional Appearance: overweight Orientation: alert, awake and oriented x3 HENMT Head: normal to inspection and normocephalic Resp Effort & Inspection: normal respiratory effort Auscultation: clear to auscultation bilaterally Cardio Rate: regular rate Rhythm: regular rhythm GI Inspection: non-distended Palpation: soft Other: Shea catheter in place draining clear urine Skin Lesions: no lesions Rashes: no rashes Neuro General: alert and awake Cognition: normal cognition Speech: speech normal Gait: normal gait Extrem General: normal to inspection and capillary refill normal Psych Appearance: grossly normal and well kempt Course Orders Ordered: ED Orders 02/12/19 17:57 EKG-12 Lead Routine 02/12/19 18:35 UA Complete [Urinalysis and Microscopic] Stat Vital Signs Vital signs: Vital Signs - 8 hr 02/12/19 18:00 02/12/19 18:39 Temperature 98.5 F Pulse Rate 106 H 102 H Respiratory Rate 19 18 Blood Pressure 143/86 H Blood Pressure [Left Arm] 119/69 Pulse Oximetry 100 94 MDM - Neuro Symptoms/Deficit Medical Records Attestation: I reviewed the patient's medical records. Lab Data Attestation: I reviewed the patient's lab results. Labs: Lab Results 02/12/19 Range/Units 18:35 Urine Color Yellow Urine Appearance Clear Urine pH 5.5 (4.5-8.0) Ur Specific [place] <=1.005 (1.000-1.035) Urine Protein Negative (Negative) Urine Glucose (UA) Negative (Negative) g/dL Urine Ketones Negative (NEGATIVE) Urine Occult Blood 1+ H (Negative) Urine Nitrate Negative (Negative) Urine Bilirubin Negative (NEGATIVE) Urine Urobilinogen 0.2 (0.2) E.U./dL Ur Leukocyte Esterase Negative (NEGATIVE) Urine RBC 1-5/hpf (0-5/HPF) Urine WBC None seen (0-5/HPF) Urine Bacteria None seen (None) Ur Culture Indicated? Cult not indicated ECG Data Attestation: I personally reviewed and interpreted this ECG as follows: Prior ECG tracings: not available for review Interpretation: Sinus tachycardia Ventricular rate of 107 Right bundle branch block Normal QTC No ST T wave changes MDM Narrative Medical decision making narrative: Patient had an extensive workup a couple days ago for cardiovascular disease do include pulmonary embolism. I have low suspic ion for cardiovascular disease today. She does have a Shea catheter in place. She is ambulatory. She has no increase in her lower back pain. I have low suspicion for cauda equina. I did inform them that they need to follow up with her primary doctor about the Shea catheter and to discuss any indication for a referral to see Urology. I did have a discussion with the patient and her regarding her excessive sleepiness. She did fall asleep in the room. She was easily arousable. She was alert and oriented. Low suspicion for psychosis. She has a GCS of 15. I do suspect that her sleep hygiene is very poor. We did discuss the use of caffeine. I had to inform her multiple times that I do not have any medication that would keep the patient from drinking caffeine. I do suspect that she is not sleeping well causing her to have excessive daytime sleepiness. Her states that she is supposed to be wearing a CPAP but does not wear this. I informed her that this may also be adding to her issues with sleeping. I do not feel that there is much more that we can offer here in the emergency department. I did inform of the needed talk with her primary provider. The both expressed understanding and agreement plan. Discharge Plan Departure Patient Disposition: Home Clinical Impression: Insomnia Qualifiers: Insomnia type: unspecified Qualified Code(s): G47.00 - Insomnia, unspecified Discharge Date/Time: 02/12/19 19:09 Instructions: Insomnia (Alternative Therapy), Treating Insomnia: A Look at Some Treatment Options, DI for Insomnia Activity Restrictions/Additional Instructions: I recommend that you continue all of your medications as directed. I highly recommend that you abstain from drinking any alcohol or caffeine as this can cause problems with sleeping. Also recommend that you do not sleep during the day and get plenty of exercise. On Thursday contact your primary provider for a follow-up to discuss the Shea catheter and also your sleep issues. 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 Prescriptions: New trazodone 50 mg tablet 50 mg PO BEDTIME PRN (Reason: insomnia) Qty: 14 RF: 0 No Action (DME) Diatrue Plus Test Strip strip See Dose Instructions .ROUTE .MEDSUPPLY Qty: 50 RF: 12 (DME) blood-glucose meter [Diatrue Plus Blood Glucose Met] misc See Dose Instructions .ROUTE .MEDSUPPLY Qty: 1 RF: 0 (DME) lancets [Easy Touch Twist Lancets] 33 gauge misc See Dose Instructions .ROUTE .MEDSUPPLY Qty: 100 RF: 3 morphine 15 mg tablet extended release 15 mg PO Q8H RF: 0 ibuprofen 800 mg tablet 800 mg PO TID RF: 0 (DME) TENS units device See Rx Instructions .ROUTE .MEDSUPPLY Qty: 1 RF: 0 ketoconazole 2 % shampoo 1 thomas Topical DIRECTED Qty: 0 RF: 0 ipratropium-albuterol [Combivent Respimat] 20-100 mcg/actuation mist 1 puff INHALATION TID Qty: 1 RF: 5 omeprazole 20 mg capsule,delayed release(DR/EC) 20 mg PO BID Qty: 180 RF: 1 levothyroxine 50 mcg tablet 50 mcg PO DAILY Qty: 90 RF: 3 furosemide 20 mg tablet 20 mg PO DAILY Qty: 90 RF: 1 metoprolol tartrate 50 mg tablet 50 mg PO BID Qty: 180 RF: 1 pregabalin 150 mg capsule 150 mg PO BID Qty: 60 RF: 5 cyclobenzaprine 10 mg tablet 10 mg PO TID RF: 0 acetaminophen [Tylenol Extra Strength] 500 mg tablet 1,000 mg PO BID RF: 0 docusate sodium [Col-Rite] 250 mg capsule 250 mg PO BID RF: 0 Narcan 4 mg/actuation spray,non-aerosol 1 dose intranasal .ONCE PRN (Reason: Opiate Reversal) RF: 0 duloxetine 30 mg capsule,delayed release(DR/EC) 60 mg PO DAILY RF: 0 terazosin 5 mg capsule 5 mg PO BEDTIME RF: 0 amitriptyline 25 mg tablet 25 mg PO QPM RF: 0 aripiprazole [Abilify] 5 mg tablet 5 mg PO QPM RF: 0 oxycodone 15 mg tablet 7.5 mg PO BID MDD 1 tab RF: 0 Referrals: Alejandra Lynch MD [Primary Care Provider] -
--- NOTE | 2019-02-12 18:37 | PC.NURSE ---
spouse reports, pt has been seeing things, like fire on the road. pt lethargic, awaken with verbal stimuli, moving all extremities , follows command, skin warm dry pink [place], clear yellow , urine obtained sent to lab.
[2019-02-12 18:39] VITALS: BP 119/69; PULSE 102; RESP 18; O2SAT 94
[2019-02-12 18:49] LABS: Bacteria Urine None Seen; WBC Urine None Seen (0-5/HPF)
[2019-02-12 18:52] LABS: Appearance Urine UA CLEAR; Bilirubin Urine UA NEGATIVE (NEGATIVE); Color Urine UA YELLOW; Glucose Urine UA NEGATIVE (Negative); Ketones Urine UA NEGATIVE (NEGATIVE); Leukocyte Esterase Urine UA NEGATIVE (NEGATIVE); Nitrite Urine UA NEGATIVE (Negative); Occult Blood Urine UA 1+ (Negative); Protein Urine UA NEGATIVE (Negative); Specific Gravity Urine UA <=1.005 (1.000-1.035); Urobilinogen Urine UA 0.2 E.U./dL (0.2)
[2019-02-12 18:57] LABS: pH Urine UA 5.5 (4.5-8.0)
[2019-02-12 19:00] LABS: Culture Indicated Urine Cult Not Indicated; RBC Urine 1-5/HPF (0-5/HPF)
--- NOTE | 2019-02-12 19:44 | PC.NURSE ---
Pt left script in ED. Called at 194002/12/19 and pt stated I will come in for it tomorrow. Script left in charge book
== END 2019-02-12 19:09 | disposition home or self-care (01) ==
PROVIDERS: Emergency Provider Emergency Medicine; PCP Family Medicine
DX: G47.00 Insomnia, unspecified (principal); R33.9 Retention of urine, unspecified
CPT/HCPCS: 81001; 93005; 93010; 99282; 99284

== ENCOUNTER → 2019-04-19 11:05 | Outpatient (CLI) | payer OTHER, SELFPAY ==
--- NOTE | 2019-04-19 | DI.US.S_ITS ---
PROCEDURE: US [facility] VENOUS LOW EXTREM RT INDICATIONS: EDEMA LE RT - R/O DVT TECHNIQUE: Real-time imaging, as well as color and pulse Doppler interrogation, were performed of the lower extremity deep veins from the inguinal ligament to the popliteal fossa. COMPARISON: [facility], [facility] VENOUS LOW EXTREM RT, 02/09/2019, 15:53. FINDINGS: The common femoral, femoral and popliteal veins are normally compressible, and free of intraluminal thrombus. Color and pulse Doppler demonstrate normal phasic intraluminal flow. There is normal augmentation response to distal compression maneuver. IMPRESSION: No evidence of deep vein thrombosis of the right lower extremity. Dictated by: Ge Flor M.D. on 04/19/2019 at 11:35 Approved by: Ge Flor M.D. on 04/19/2019 at 11:35
== END ==
PROVIDERS: PCP Family Medicine; Visit Provider Family Medicine
DX: R60.0 Localized edema (principal)
CPT/HCPCS: 93971

== ENCOUNTER → 2019-05-04 07:35 | Outpatient (CLI) | payer OTHER, SELFPAY ==
--- NOTE | 2019-05-04 07:37 | DI.ECHO.S_ITS ---
[facility] +---------+ : : [address] : : : : [id number] : : : : Phone: [phone]+ Echocardiogram Report + + :Name: DANIELA WHITFIELD Study Date: 05/04/2019 Height: 67 in : :[facility] Weight: 270 lb : : Gender: Female BSA: 2.3 m2 : :: 1980 Age: 38 yrs BP: 136/82 mmHg: :Reason For Study: Abnormal ECG : : Performed By: [facility] Staff : :Referring: BHANU EPPS : + + Interpretation Summary The left ventricle is normal in size. The ejection fraction is estimated to be 60-65%. There has been no significant change in LVEF since the previous study. The right ventricle is normal in size and function. No significant valvular pathology seen. Procedure: A two-dimensional transthoracic echocardiogram with color flow and Doppler was performed. The study quality was technically adequate. Prior echo performed on 08/06/17. The patient was in normal sinus rhythm during the exam. Left Ventricle: There is normal left ventricular wall thickness. The left ventricle is normal in size. There is no thrombus. The ejection fraction is estimated to be 60-65%. There has been no significant change since the previous study. Left ventricular wall motion is normal. Diastolic parameters suggest probable normal left ventricular diastolic function and normal filling pressures. Right Ventricle: The right ventricle is normal in size and function. Atria: The left atrial size is normal. The left atrium has significantly decreased in size since the prior echo exam. Right atrial size is normal. The interatrial septum is intact with no evidence for an atrial septal defect. Mitral Valve: The mitral valve is normal in structure and function. There is trace mitral regurgitation. Aortic Valve: The aortic valve is not well visualized. There is no aortic valve stenosis. No aortic regurgitation is present. Tricuspid Valve: The tricuspid valve is not well visualized, but is grossly normal. There is trace tricuspid regurgitation. Pulmonary artery pressures cannot be estimated because of the lack of a measurable TR jet velocity. Pulmonic Valve: The pulmonic valve is not well visualized. There is trace pulmonic regurgitation. Great Vessels: The aortic root is normal size. The ascending aorta could not be visualized. The pulmonary artery is normal size. The inferior vena cava was not visualized. Pericardium/ Pleura There is no pericardial effusion. There is no pleural effusion. MMode/2D Measurements & Calculations LVIDd: 5.2 cm LVOT diam: 2.1 cm LVIDs: 3.4 cm Ao root diam: 3.2 cm FS: 35.6 % EPSS: 0.74 cm IVSd: 0.99 cm LVPWd: 1.1 cm LV wills. diameter/BSA (cm/m^2): 2.3 LV sys. diameter/BSA (cm/m^2): 1.5 LA A2 area: 17.7 cm2 RA long axis: 5.0 cm LA A4 area: 21.6 cm2 RA area: 15.6 cm2 LA length (vol): 5.4 cm RA vol: 41.4 ml LA vol: 60.1 ml RA : 18.0 ml/m2 LA vol index: 26.2 ml/m2 TAPSE: 2.4 cm Doppler Measurements & Calculations Ao V2 max: 136.7 cm/sec LVOT Max Lance: 107.3 cm/sec Ao V2 mean: 96.2 cm/sec LV V1 max P.6 mmHg Ao max P.5 mmHg LV V1 VTI: 21.6 cm Ao mean P.2 mmHg NADYA(I,D): 3.0 cm2 Ao V2 VTI: 24.5 cm NADYA(V,D): 2.6 cm2 sev ratio: 0.88 NADYA indexed to BSA (cm^2/m^2): 1.3 MV E max lance: 75.7 cm/sec PA V2 max: 82.4 cm/sec MV A max lance: 69.9 cm/sec PA V2 mean: 63.6 cm/sec MV E/A: 1.1 PA mean P.8 mmHg Med Peak E' Lance: 8.9 cm/sec PA Accel Time: 0.12 sec E/E' med: 8.5 Lat Peak E' Lance: 9.1 cm/sec E/E' lat: 8.4 E/e' average: 8.4 MV dec time: 0.15 sec SV(LVOT): 72.5 ml Reading Physician:01:50 PM
== END ==
PROVIDERS: PCP Family Medicine; Visit Provider Family Medicine
DX: R94.31 Abnormal electrocardiogram [ECG] [EKG] (principal); I45.10 Unspecified right bundle-branch block
CPT/HCPCS: 93306

== ENCOUNTER → 2019-05-24 12:06 | Outpatient (CLI) | payer OTHER, SELFPAY ==
--- NOTE | 2019-05-24 12:08 | DI.RAD.S_ITS ---
PROCEDURE: XR CHEST 2V INDICATIONS: cough, FU pneumonia TECHNIQUE: 2 views of the chest were acquired. COMPARISON: [facility], CT, CT ANGIO CHEST PE PROTOCOL, 02/11/2019, 16:00. [facility], CR, CHEST 2 VIEW, 12/01/2014, 20:03. FINDINGS: Surgical changes and devices: None. Lungs and pleura: Extensive airspace disease is identified throughout the right lung base that involves the right middle lobe and right lower lobe. No effusion or pneumothorax is appreciated. Mediastinum: Mediastinal contours are normal. Heart size is borderline enlarged. Bones and chest wall: No suspicious bony abnormalities. Soft tissues appear unremarkable. IMPRESSION: 1. Right basilar pneumonia and/or atelectasis. 2. Cardiomegaly. Dictated by: Ge Flor M.D. on 05/24/2019 at 11:34 Approved by: Ge Flor M.D. on 05/24/2019 at 11:35
== END ==
PROVIDERS: PCP Family Medicine; Visit Provider Family Medicine
DX: R05 Cough (principal); I51.7 Cardiomegaly
CPT/HCPCS: 71046

== ENCOUNTER → 2019-05-26 10:08 | Outpatient (CLI) | payer OTHER, SELFPAY ==
[2019-05-26 11:29] LABS: BUN Creatinine Ratio 16.7 (6-22); Blood Urea Nitrogen 10 mg/dL (7-17); Calcium 9.2 mg/dL (8.4-10.2); Carbon Dioxide 31 mmol/L (22-32); Chloride 100 mmol/L (98-107); Estimated Glomerular Filt Rate > 60.0 mL/min (>60); Glucose 145 mg/dL (70-100); HEMOLYSIS < 15 (0-50); Potassium 4.2 mmol/L (3.4-5.1); Sodium 140 mmol/L (137-145)
[2019-05-29 08:17] LABS: B2-Glycoprotein I IgA AB < 9 SAU (< OR = 20); B2-Glycoprotein I IgG AB < 9 SGU (< OR = 20); B2-Glycoprotein I IgM AB < 9 SMU (< OR = 20); Cardiolipin Ab IgA < 11 APL; Cardiolipin Ab IgG < 14 GPL; Cardiolipin Ab IgM < 12 MPL; Phos. Serine AB IgM < 25 U/mL
[2019-05-29 12:06] LABS: PTT-LA Screen 44 seconds (< OR = 40); dDRVVT Screen 43 seconds (< OR = 45)
[2019-05-29 13:45] LABS: Protein C Activity 30 % normal (70-180)
[2019-06-01 10:24] LABS: dRVVT Screen 46
== END ==
PROVIDERS: PCP Family Medicine; Visit Provider Family Medicine
DX: I26.99 Other pulmonary embolism without acute cor pulmonale (principal); I10 Essential (primary) hypertension
CPT/HCPCS: 36415; 80048; 81240; 81241; 85300; 85303; 85306; 85597; 85613; 85730; 86146; 86147; 86148

== ENCOUNTER → 2019-06-03 08:06 | Outpatient (CLI) | payer OTHER, SELFPAY | PROVIDERS: PCP Family Medicine; Visit Provider Family Medicine | DX: J18.9 Pneumonia, unspecified organism (principal) | CPT/HCPCS: 87070; 87077; 87205 ==

== ENCOUNTER → 2019-06-06 10:55 | Outpatient (CLI) | payer OTHER, SELFPAY ==
[2019-06-06 15:33] LABS: HIV 1 & 2 Ab/Ag 4th Gen Combo REACTIVE (NEGATIVE)
[2019-06-10 14:00] LABS: HIV-1/2 confirmation Not Detected (Not detected)
== END ==
PROVIDERS: PCP Family Medicine; Visit Provider Family Medicine
DX: B37.9 Candidiasis, unspecified (principal); B49 Unspecified mycosis; J17 Pneumonia in diseases classified elsewhere; R19.7 Diarrhea, unspecified
CPT/HCPCS: 36415; 87389; 87535

== ENCOUNTER → 2019-06-07 12:30 | Outpatient (CLI) | payer OTHER, SELFPAY ==
[2019-06-07 14:29] LABS: Clostridium Difficile Tox PCR Negative for C. diff
--- NOTE | 2019-06-08 09:42 | ONC.MSW ---
Description: Referral Navigation Activity: Reviewed referral for medical status and acuity. Forwarded to scheduling for next routine consult time.
== END ==
PROVIDERS: PCP Family Medicine; Visit Provider Family Medicine
DX: B37.9 Candidiasis, unspecified (principal); B49 Unspecified mycosis; J17 Pneumonia in diseases classified elsewhere; R19.7 Diarrhea, unspecified
CPT/HCPCS: 87493

== ENCOUNTER → 2019-06-29 12:10 | Outpatient (CLI) | payer OTHER, SELFPAY ==
--- NOTE | 2019-06-29 12:11 | DI.US.S_ITS ---
PROCEDURE: US PERIPH VENOUS LOW EXTREM RT INDICATIONS: RIGHT LEG SWELLING TECHNIQUE: Real-time imaging, as well as color and pulse Doppler interrogation, were performed of the lower extremity deep veins from the inguinal ligament to the popliteal fossa. COMPARISON: None. FINDINGS: The common femoral, femoral and popliteal veins are normally compressible, and free of intraluminal thrombus. Color and pulse Doppler demonstrate normal phasic intraluminal flow. There is normal augmentation response to distal compression maneuver. IMPRESSION: No evidence of deep vein thrombosis of the right lower extremity. Dictated by: Ge Flor M.D. on 06/29/2019 at 12:59 Approved by: Ge Flor M.D. on 06/29/2019 at 13:00
[2019-06-29 12:30] LABS: Add Manual Diff / Slide Review NO; Basophils Absolute Auto 0 /uL (0-100); Basophils Percent Auto 0.7 % (0-2); Eosinophils Absolute Auto 200 /uL (0-450); Hematocrit 29.5 % (36-46); Hemoglobin 9.4 g/dL (12.0-16.0); Lymphocytes Absolute Auto 1500 /uL (1100-4500); Lymphocytes Percent Auto 28.9 % (25-40); Mean Corpuscular Hemoglobin 25.6 PG (26-34); Mean Corpuscular Volume 80.1 fL (80-100); Monocytes Absolute Auto 400 /uL (0-900); Monocytes Percent Auto 7.4 % (3-14); Neutrophils Absolute Auto 3100 /uL (1500-7000); Platelet Count 253 X10^3/uL (150-400); Red Blood Cell Count 3.68 X10^6/uL (4.0-5.2); Red Cell Distribution Width 15.6 % (11.6-14.8); White Blood Cell Count 5.2 X10^3/uL (4.5-11.0)
[2019-06-29 12:42] LABS: Alanine Aminotransferase 17 IU/L (<35); Albumin 4.1 g/dL (3.5-5.0); Albumin Globulin Ratio 1.2 (1.0-2.8); Alkaline Phosphatase 87 U/L (38-126); Aspartate Aminotransferase 27 IU/L (14-36); BUN Creatinine Ratio 16.7 (6-22); Bilirubin Total 0.3 mg/dL (0.2-1.3); Blood Urea Nitrogen 10 mg/dL (7-17); Calcium 9.2 mg/dL (8.4-10.2); Carbon Dioxide 28 mmol/L (22-32); Chloride 100 mmol/L (98-107); Estimated Glomerular Filt Rate > 60.0 mL/min (>60); Globulin 3.4 g/dL (1.7-4.1); Glucose 127 mg/dL (70-100); HEMOLYSIS < 15 (0-50); Potassium 4.1 mmol/L (3.4-5.1); Sodium 139 mmol/L (137-145); Total Protein 7.5 g/dL (6.3-8.2)
[2019-06-29 12:48] LABS: D Dimer 623 ng/mL (<230)
[2019-07-01 16:09] LABS: PTT-LA Screen 34 seconds (< OR = 40); dDRVVT Screen 31 seconds (< OR = 45)
[2019-07-02 15:04] LABS: Protein C Activity 80 % normal (70-180)
--- NOTE | 2019-07-05 11:13 | PC.NURSE ---
Pt called to request recent lab results and information be sent to [facility]. Pt requested info to be sent to [phone]. 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 Info sent as requested by pt.
== END ==
PROVIDERS: PCP Family Medicine; Referring Provider Internal Medicine Hematology & Oncology; Visit Provider Internal Medicine Hematology & Oncology
DX: M79.89 Other specified soft tissue disorders (principal); I26.99 Other pulmonary embolism without acute cor pulmonale
CPT/HCPCS: 36415; 80053; 81240; 81241; 85025; 85300; 85303; 85306; 85379; 85597; 85613; 85730; 93971

== ENCOUNTER 2019-07-11 13:48 | Emergency (ER) | payer OTHER, SELFPAY ==
[2019-07-11] VITALS (12 sets, daily range): BP systolic 128–164; BP diastolic 60–82; PULSE 103–114; RESP 12–35; TEMP 36.8; O2SAT 92–100; BMI 49.2
--- NOTE | 2019-07-11 14:05 | DI.RAD.S_ITS ---
PROCEDURE: XR CHEST 1V INDICATIONS: sob TECHNIQUE: One view of the chest was acquired. COMPARISON: [facility], , XR CHEST 2V, 05/24/2019, 12:06. [facility], CR, CHEST 2 VIEW, 12/01/2014, 20:03. FINDINGS: Surgical changes and devices: None. Lungs and pleura: Tissue prominence is identified within the bilateral perihilar regions. No effusion or pneumothorax is evident. No large area of pulmonary consolidation is appreciated. A small amount of fluid is seen along the minor fissure on the right. Mediastinum: Mediastinal contours appear normal. Heart size is normal. Bones and chest wall: No suspicious bony lesions. Overlying soft tissues appear unremarkable. IMPRESSION: Probable pulmonary edema. Atypical interstitial pneumonia is felt to be unlikely. Dictated by: Ge Flor M.D. on 07/11/2019 at 13:22 Approved by: Ge Flor M.D. on 07/11/2019 at 13:23
[2019-07-11] MEDS: ALBUTEROL/IPRATROPIUM 3 ML AMPUL INH ×3 (14:06→18:37)
--- NOTE | 2019-07-11 14:40 | PC.NURSE ---
pt states she was discharged from [facility] on . was admitted for PE, pneumonia, and edema. pt taking 80mg lasix in the morning and 40mg lasix in the evening, states the edema is not improving and she is not urinating as much as she thinks she should be taking that dose. pt states she started to go for a walk when she had sudden onset of SOB, and anxiety. began feeling dizzy and weakness. pt currently resting on stretcher, no respiratory complaints at this time. pt had episode of rapid breathing, that was relieved when asked to take deep breath, and talking to her.
[2019-07-11] MEDS: methylPREDNISolone 125 MG/2 ML VIAL IV (14:50)
[2019-07-11 14:59] LABS: Add Manual Diff / Slide Review NO; Basophils Absolute Auto 0 /uL (0-100); Basophils Percent Auto 0.3 % (0-2); Eosinophils Absolute Auto 200 /uL (0-450); Eosinophils Percent Auto 2.8 % (2-4); Hematocrit 31.1 % (36-46); Lymphocytes Absolute Auto 1700 /uL (1100-4500); Lymphocytes Percent Auto 27.1 % (25-40); Mean Corpuscular HGB Conc 32.2 % (30-36); Mean Corpuscular Hemoglobin 25.6 PG (26-34); Mean Corpuscular Volume 79.7 fL (80-100); Monocytes Absolute Auto 700 /uL (0-900); Monocytes Percent Auto 11.2 % (3-14); Neutrophils Absolute Auto 3600 /uL (1500-7000); Neutrophils Percent Auto 58.6 % (50-75); Platelet Count 252 X10^3/uL (150-400); Red Cell Distribution Width 15.2 % (11.6-14.8); White Blood Cell Count 6.2 X10^3/uL (4.5-11.0)
--- NOTE | 2019-07-11 15:02 | DI.CT.S_ITS ---
PROCEDURE: CT ANGIO CHEST PE PROTOCOL INDICATIONS: acute sob, tachycardia TECHNIQUE: After the administration of intravenous contrast, 2 mm thick sections acquired from the pulmonary apices to the posterior costophrenic angles. 3-dimensional maximum intensity projection (MIP) coronal and sagittal reformats were then acquired through the thorax. For radiation dose reduction, the following was used: automated exposure control, adjustment of mA and/or kV according to patient size. COMPARISON: [facility], CT, CT ANGIO CHEST PE, 07/05/2019, 21:39. [facility], CT, CT ANGIO CHEST PE PROTOCOL, 02/11/2019, 16:00. FINDINGS: Image quality: Excellent. Pulmonary arteries: Pulmonary arteries are normal in size, and demonstrate no intraluminal filling defects to suggest central pulmonary embolism. Lungs and pleura: Mild ground glass opacity in the left upper lobe. Interval decrease in the streaky opacity in the right middle lobe. Mosaic attenuation in the lower lobes. Small pulmonary cysts. No pleural effusions or pneumothorax. Central and peripheral airways are patent. Mediastinum: Heart size is prominent, without pericardial effusion. No mediastinal or hilar adenopathy. Thoracic aorta is normal in caliber and enhancement. Left vertebral artery originates off of the aortic arch. Esophagus is normal in caliber, without hiatal hernia. Bones and chest wall: No suspicious bony lesions. Ribs and thoracic spine appear intact throughout. Thyroid gland is unremarkable. No axillary or supraclavicular adenopathy. Abdomen: Visualized upper abdominal solid organs appear normal in the early arterial phase of enhancement. IMPRESSION: 1. No central pulmonary embolism. 2. Mosaic attenuation and minimal groundglass opacity in the left upper lobe. Findings are similar to the prior exam. No new opacity demonstrated. Dictated by: Jai Mustafa M.D. on 07/11/2019 at 15:56 Approved by: Jai Mustafa M.D. on 07/11/2019 at 16:04
[2019-07-11 15:08] LABS: Lactate (Lactic Acid) 2.1 mmol/L (0.7-2.1)
[2019-07-11 15:18] LABS: BUN Creatinine Ratio 23.3 (6-22); Blood Urea Nitrogen 14 mg/dL (7-17); Calcium 9.4 mg/dL (8.4-10.2); Carbon Dioxide 29 mmol/L (22-32); Chloride 100 mmol/L (98-107); Creatine Kinase 198 U/L (30-135); Estimated Glomerular Filt Rate > 60.0 mL/min (>60); Glucose 121 mg/dL (70-100); HEMOLYSIS < 15 (0-50); Magnesium 2.2 mg/dL (1.6-2.3); Potassium 3.6 mmol/L (3.4-5.1); Sodium 138 mmol/L (137-145)
[2019-07-11 15:30] LABS: Troponin I < 0.012 ng/mL (0.01-0.034)
[2019-07-11 15:33] LABS: CKMB % Relative Index 2.2 % (1.5-5.0)
[2019-07-11 15:36] LABS: Procalcitonin < 0.05 ng/mL (<0.5)
--- NOTE | 2019-07-11 17:54 | ED.SOB ---
HPI - SOB/Dyspnea General Chief Complaint: Shortness of Breath/Dyspnea Stated Complaint: Asthma/Panic Attack Time Seen by Provider: 07/11/19 14:45 Source: patient and family Mode of arrival: Ambulatory Limitations: no limitations History of Present Illness HPI Narrative: CC: Shortness of breath. HPI: The patient is a 38 year old female who developed shortness of breath when walking down by the [place]. There was a short distance and she became very short of breath hyperventilating. She also started wheezing. Her chest became very tight. She described the chest discomfort as a dull tight ache. It did not radiate to the neck jaw shoulder or arm. She had no palpitations or racing of her heart. She did not feel dizzy or lightheaded. She states that she has a history of chronic bronchitis and had pneumonia 1 month ago. She states that it is just hard to breathe. She denies a history of asthma. She quit smoking cigarettes 1 month ago. She does not drink alcohol or use marijuana. She has had no fever sweats but has had intermittent chills. She denies being stating that her last menstrual period was 2 weeks ago. Her cough is on productive of any sputum and is dry. She has minimal chest pain that is a tightness arm when trying to breathe. She has had nausea but no vomiting or diarrhea. She denies any urinary symptoms. She states that she had a history of having a pulmonary embolism in the past but she stopped her anticoagulant. Related Data Home Medications Medication Instructions Recorded Confirmed acetaminophen 500 mg tablet 1,000 mg PO BID tab 09/23/18 07/11/19 amitriptyline 25 mg PO QPM 09/23/18 07/11/19 cyclobenzaprine 10 mg tablet 10 mg PO BID tab 12/08/18 07/11/19 naloxone [Narcan] 1 dose INTRANASAL .ONCE PRN 01/13/19 07/11/19 ibuprofen 800 mg tablet 800 mg PO TID 02/09/19 07/11/19 morphine 15 mg tablet,extended 15 mg PO Q8H tab 02/09/19 07/11/19 release aripiprazole [Abilify] 5 mg PO QPM 06/29/19 07/11/19 magnesium 500 mg PO DAILY 06/29/19 07/11/19 potassium chloride 20 mEq 20 meq PO DAILY 07/07/19 07/11/19 tablet,extended release terazosin 5 mg capsule 10 mg PO BEDTIME cap 07/07/19 07/11/19 albuterol sulfate [ProAir HFA] 2 puff INHALATION PRN PRN 07/11/19 07/11/19 arformoterol [Brovana] 2 ml INHALATION BID 07/11/19 07/11/19 duloxetine 90 mg PO DAILY 07/11/19 07/11/19 fluticasone propion-salmeterol 1 puff INHALATION BID 07/11/19 07/11/19 [Advair Diskus] furosemide 40 mg PO DAILY 07/11/19 07/11/19 furosemide 80 mg PO QAM 07/11/19 07/11/19 hydrocortisone 1 applic TOPICAL DIRECTED 07/11/19 07/11/19 ketoconazole 1 applic TOPICAL DIRECTED 07/11/19 07/11/19 ketoconazole 1 applic TOPICAL DAILY 07/11/19 07/11/19 oxycodone 7.5 - 15 mg PO Q6-8H PRN MDD 1 07/11/19 07/11/19 pregabalin 150 mg PO BID 07/11/19 07/11/19 Previous Rx's Medication Instructions Recorded blood sugar diagnostic #50 each 12/08/18 blood-glucose meter #1 each 12/08/18 lancets 33 gauge #100 each 12/08/18 levothyroxine 50 mcg tablet 50 mcg PO DAILY #90 tab 12/13/18 TENS units #1 each 02/09/19 triamcinolone acetonide 0.5 % 1 applictn TOP BID #15 gram 03/18/19 topical cream metoprolol tartrate 100 mg tablet 150 mg PO BID #270 tab 05/11/19 fluticasone propionate 50 1 spray NASAL BID #15.8 ml 05/16/19 mcg/actuation nasal spray,suspension omeprazole 20 mg capsule,delayed 20 mg PO BID #180 cap 05/23/19 release albuterol sulfate 2 puff INHALATION Q4-6H PRN #8.5 07/11/19 gram doxycycline hyclate 100 mg PO BID #20 tab 07/11/19 prednisone 60 mg PO DAILY #15 tab 07/11/19 Allergies Allergy/AdvReac Type Severity Reaction Status Date / Time carisoprodol [CARISOPRODOL] AdvReac Severe urinary Verified 07/11/19 14:02 retention Review of Systems Review of Systems Narrative: Her review systems are negative except for those mentioned in the history of present illness. Patient History Medical History Acetaminophen overdose of undetermined intent (Resolved 12/2015) Cubital tunnel syndrome (Chronic) Fibromyalgia (Chronic 2014) Intraoperative cardiac arrest during non-cardiac surgery (Resolved 11/2013) 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 (Chronic) Ovarian cyst (Chronic) Plantar fasciitis (Chronic) Pulmonary embolism (Acute) Suicide attempt (Resolved) Surgical History History of carpal tunnel repair (Resolved 10/30/14) S/P epidural steroid injection (Resolved 11/2013) Status post dilation and curettage (Resolved 2008) Status post laminectomy (Resolved 09/2016) Family History Grandfather Diabetes mellitus Family/Other Pancreatic cancer Social History Smoking Status: Former smoker Smoking Status: Former smoker alcohol intake frequency: a few times a week Substance Use Type: does not use Exam Narrative Exam Narrative: PHYSICAL EXAM: CONSTITUTIONAL: Awake, Alert, appears short of breath and mildly uncomfortable. HEAD: AT/NC EENT: PERRL, FROM of eyes, no discharge, no nystagmus No drainage from the ears, No epistaxis or nasal drainage Oral mucosa is moist and pink, posterior pharynx is without erythema or exudate. NECK: Supple, no obvious JVD, Trachea is midline without stridor, no palpable LN or masses. SPINE: No gross deformity, no palpable tenderness of the cervical, thoracic, lumbar or sacral spine. No CVA tenderness. THORAX: No deformity, retractions, chest wall tenderness, subcutaneous air or crepitice. LUNGS: Decreased breath sounds bilaterally that are clear with a few scattered rhonchi that clear with coughing. There was no appreciable wheezing. HEART: Normal heart tones, regular rhythm and rate without murmur. ABDOMEN: The abdomen is soft nontender no palpable liver spleen kidney or mass. EXTREMITIES: The patient's extremities have trace edema. He had no tenderness otherwise. SKIN: No rash, bruising, petechiae or purpura. NEURO: Awake, alert, oriented, conversive, no focal facial asymmetry, cranial nerves II-XII are symmetrical and normal, moves all 4 extremities and is ambulatory Initial Vital Signs Initial Vital Signs: Vital Signs Temperature 98.2 F 07/11/19 13:59 Pulse Rate 114 H 07/11/19 13:59 Respiratory Rate 35 H 07/11/19 13:59 Blood Pressure 164/80 H 07/11/19 13:59 Pulse Oximetry 100 07/11/19 13:59 Course Course Course Narrative: 1744 the patient's chest x-ray showed probable pulmonary edema. Atypical interstitial pneumonia is felt to be unlikely. There is fluid in the minor fissure CT revealed no central pulmonary embolism. There is a mosaic attenuation in minimal ground-glass opacity in the left upper lobe. Findings are similar to the prior exam. No new opacity demonstrated.. 185; the patient was administered and now other DuoNeb breathing treatment. Her repeat troponin remains pending as well as her BNP. Arterial blood gases remain pending on room air. 190: The patient's BNP is 99. And her repeat troponin is normal. The patient will be discharged home on albuterol inhaler 1-2 puffs every 2-4 hours, prednisone, and doxycycline. Her arterial blood gases revealed that her pH is 7.427 pCO2 is 42.5 PO2 is 67 O2 saturation is 93% FiO2 is 21%. Orders Ordered: ED Orders 07/11/19 13:56 EKG-12 Lead Stat 07/11/19 14:05 Consult to Respiratory Therapy Evaluate & Treat Chest [XR chest 1V] Stat 07/11/19 14:35 Basic Metabolic Panel Stat Complete Blood Count AUTO DIFF Stat Lactate (Lactic Acid) Stat Magnesium Stat Procalcitonin Stat Troponin & CK Cardiac Panel Stat 07/11/19 15:02 CT angio chest PE protocol Stat 07/11/19 15:27 Blood Culture Stat 07/11/19 18:22 NT-proBNP (BNP-Adult 18+) Stat Troponin I Stat 07/11/19 18:57 Arterial Blood Gas Stat Discontinued Medications Albuterol/Ipratropium (Duoneb) 3 ml INH NOW ONE Stop: 07/11/19 13:57 Last Admin: 07/11/19 14:06 Dose: 3 ml Documented by: SILVINA Albuterol/Ipratropium (Duoneb) 3 ml INH NOW ONE Stop: 07/11/19 14:05 Last Admin: 07/11/19 14:58 Dose: 3 ml Documented by: CARLOS Albuterol/Ipratropium (Duoneb) 3 ml INH NOW ONE Stop: 07/11/19 18:26 Last Admin: 07/11/19 18:37 Dose: 3 ml Documented by: CARLOS Methylprednisolone (Solu-Medrol 125 Mg Vial) 125 mg IV NOW ONE Stop: 07/11/19 14:05 Last Admin: 07/11/19 14:50 Dose: 125 mg Documented by: MAYDA Vital Signs Vital signs: Vital Signs - 8 hr 07/11/19 13:59 07/11/19 14:58 07/11/19 15:32 Temperature 98.2 F Pulse Rate 114 H 109 H 107 H Respiratory Rate 35 H 20 17 Blood Pressure 164/80 H Blood Pressure [left arm] 164/80 H Pulse Oximetry 100 97 94 07/11/19 16:00 07/11/19 16:31 07/11/19 17:01 Temperature Pulse Rate 106 H 108 H 106 H Respiratory Rate 12 14 14 Blood Pressure Blood Pressure [left arm] 136/65 147/68 H 144/82 H Pulse Oximetry 97 97 95 07/11/19 17:31 07/11/19 18:01 07/11/19 18:37 Temperature Pulse Rate 103 H 107 H 111 H Respiratory Rate 12 16 20 Blood Pressure Blood Pressure [left arm] 142/74 H 137/70 Pulse Oximetry 98 92 93 07/11/19 18:46 07/11/19 18:56 07/11/19 19:27 Temperature Pulse Rate 110 H 113 H 114 H Respiratory Rate 18 20 16 Blood Pressure Blood Pressure [left arm] 128/60 139/63 Pulse Oximetry 93 93 92 MDM - SOB/Dyspnea Lab Data Result diagrams: 07/11/19 14:35 07/11/19 14:35 Labs: Lab Results 07/11/19 07/11/19 07/11/19 Range/Units 14:35 14:35 14:35 WBC 6.2 (4.5-11.0) X10^3/uL RBC 3.90 L (4.0-5.2) X10^6/uL Hgb 10.0 L (12.0-16.0) g/dL Hct 31.1 L (36-46) % MCV 79.7 L (80-100) fL MCH 25.6 L (26-34) PG MCHC 32.2 (30-36) % RDW 15.2 H (11.6-14.8) % Plt Count 252 (150-400) X10^3/uL Neut % (Auto) 58.6 (50-75) % Lymph % (Auto) 27.1 (25-40) % [place] % (Auto) 11.2 (3-14) % Eos % (Auto) 2.8 (2-4) % Baso % (Auto) 0.3 (0-2) % Neut # (Auto) 3600 (7912-0413) /uL Lymph # (Auto) 1700 (6001-5278) /uL [place] # (Auto) 700 (0-900) /uL Eos # (Auto) 200 (0-450) /uL Baso # (Auto) 0 (0-100) /uL ABG pH (7.35-7.45) ABG pCO2 (35-45) mmHg ABG pO2 (80-100) mmHg ABG HCO3 (22-26) mmol/L ABG Total CO2 (21-31) mmol/L ABG O2 Saturation (95-100) % ABG Base Excess (-2-2) mmol/L FiO2 Sodium 138 (137-145) mmol/L Potassium 3.6 (3.4-5.1) mmol/L Chloride 100 (98-107) mmol/L Carbon Dioxide 29 (22-32) mmol/L BUN 14 (7-17) mg/dL Creatinine 0.60 (0.52-1.04) mg/dL Estimated GFR > 60.0 (>60) mL/min BUN/Creatinine Ratio 23.3 H (6-22) Glucose 121 H (70-100) mg/dL Lactate (0.7-2.1) mmol/L Calcium 9.4 (8.4-10.2) mg/dL Magnesium 2.2 (1.6-2.3) mg/dL Total Creatine Kinase 198 H (30-135) U/L CK-MB (CK-2) 4.40 H (<2.37) ng/mL CK-MB (CK-2) Rel Index 2.2 (1.5-5.0) % Troponin I < 0.012 (0.01-0.034) ng/mL NT-Pro-B Natriuret Pep (<125) pg/mL Procalcitonin < 0.05 (<0.5) ng/mL 07/11/19 07/11/19 07/11/19 Range/Units 14:35 18:22 18:57 WBC (4.5-11.0) X10^3/uL RBC (4.0-5.2) X10^6/uL Hgb (12.0-16.0) g/dL Hct (36-46) % MCV (80-100) fL MCH (26-34) PG MCHC (30-36) % RDW (11.6-14.8) % Plt Count (150-400) X10^3/uL Neut % (Auto) (50-75) % Lymph % (Auto) (25-40) % [place] % (Auto) (3-14) % Eos % (Auto) (2-4) % Baso % (Auto) (0-2) % Neut # (Auto) (9768-2615) /uL Lymph # (Auto) (7122-0854) /uL [place] # (Auto) (0-900) /uL Eos # (Auto) (0-450) /uL Baso # (Auto) (0-100) /uL ABG pH 7.43 (7.35-7.45) ABG pCO2 42.5 (35-45) mmHg ABG pO2 67 L (80-100) mmHg ABG HCO3 28 H (22-26) mmol/L ABG Total CO2 29 (21-31) mmol/L ABG O2 Saturation 93 L (95-100) % ABG Base Excess 4.0 H (-2-2) mmol/L FiO2 21 Sodium (137-145) mmol/L Potassium (3.4-5.1) mmol/L Chloride (98-107) mmol/L Carbon Dioxide (22-32) mmol/L BUN (7-17) mg/dL Creatinine (0.52-1.04) mg/dL Estimated GFR (>60) mL/min BUN/Creatinine Ratio (6-22) Glucose (70-100) mg/dL Lactate 2.1 (0.7-2.1) mmol/L Calcium (8.4-10.2) mg/dL Magnesium (1.6-2.3) mg/dL Total Creatine Kinase (30-135) U/L CK-MB (CK-2) (<2.37) ng/mL CK-MB (CK-2) Rel Index (1.5-5.0) % Troponin I < 0.012 (0.01-0.034) ng/mL NT-Pro-B Natriuret Pep 99 (<125) pg/mL Procalcitonin (<0.5) ng/mL Point of Care Testing Test Results Negative Urine Dip Bedside Urine Glucose Negative Bedside Urine Bilirubin - Negative Bedside Urine Ketone - Negative Urine Specific [place] 1.010 Bedside Urine Occult Blood - Negative Bedside Urine pH 6.0 Bedside Urine Protein - Negative Bedside Urine Urobilinogen - Negative Bedside Urine Nitrite - Negative Bedside Urine Leukocytes - Negative Esterase Discharge Plan Departure Patient Disposition: Home Clinical Impression: Acute dyspnea Chronic bronchitis Qualifiers: Chronic bronchitis type: unspecified Qualified Code(s): J42 - Unspecified chronic bronchitis Discharge Date/Time: 07/11/19 19:49 Instructions: DI for Cough -- Adult, DI for Acute Bronchitis Activity Restrictions/Additional Instructions: 1. Drink fluids. 2. Follow-up with your primary care physician and be re-evaluated and 48-72 hours. 3. Take prednisone 60 mg per day as prescribed. 4. Take the albuterol 1-2 puffs Q 2-4 hours as needed for wheezing shortness of breath and cough. 5. Use the doxycycline 100 mg p.o. b.i.d.. Prescriptions: New albuterol sulfate 90 mcg/actuation HFA aerosol inhaler 2 puff INHALATION Q4-6H PRN (Reason: shortness of breath or wheezing) Qty: 8.5 RF: 0 prednisone 20 mg tablet 60 mg PO DAILY Qty: 15 RF: 0 doxycycline hyclate 100 mg tablet 100 mg PO BID Qty: 20 RF: 0 No Action (DME) Diatrue Plus Test Strip strip See Dose Instructions .ROUTE .MEDSUPPLY Qty: 50 RF: 12 (DME) blood-glucose meter [Diatrue Plus Blood Glucose Met] misc See Dose Instructions .ROUTE .MEDSUPPLY Qty: 1 RF: 0 (DME) lancets [Easy Touch Twist Lancets] 33 gauge misc See Dose Instructions .ROUTE .MEDSUPPLY Qty: 100 RF: 3 morphine 15 mg tablet extended release 15 mg PO Q8H RF: 0 ibuprofen 800 mg tablet 800 mg PO TID RF: 0 (DME) TENS units device See Rx Instructions .ROUTE .MEDSUPPLY Qty: 1 RF: 0 metoprolol tartrate 100 mg tablet 150 mg PO BID Qty: 270 RF: 2 levothyroxine 50 mcg tablet 50 mcg PO DAILY Qty: 90 RF: 3 triamcinolone acetonide 0.5 % cream 1 applictn TOP BID Qty: 15 RF: 3 fluticasone propionate 50 mcg/actuation spray,suspension 1 spray NASAL BID Qty: 15.8 RF: 3 omeprazole 20 mg capsule,delayed release(DR/EC) 20 mg PO BID Qty: 180 RF: 1 terazosin 5 mg capsule 10 mg PO BEDTIME RF: 0 potassium chloride 20 mEq tablet extended release 20 meq PO DAILY RF: 0 cyclobenzaprine 10 mg tablet 10 mg PO BID RF: 0 acetaminophen [Tylenol Extra Strength] 500 mg tablet 1,000 mg PO BID RF: 0 Narcan 4 mg/actuation spray,non-aerosol 1 dose intranasal .ONCE PRN (Reason: Opiate Reversal) RF: 0 furosemide 40 mg tablet 80 mg PO QAM RF: 0 ketoconazole 2 % shampoo 1 applic TOPICAL DAILY RF: 0 hydrocortisone 2.5 % cream 1 applic TOPICAL DIRECTED RF: 0 fluticasone propion-salmeterol [Advair Diskus] 100-50 mcg/dose blister with device 1 puff INHALATION BID RF: 0 ketoconazole 2 % cream 1 applic TOPICAL DIRECTED RF: 0 Brovana 15 mcg/2 mL solution for nebulization 2 ml INHALATION BID RF: 0 duloxetine 30 mg capsule,delayed release(DR/EC) 90 mg PO DAILY RF: 0 oxycodone 15 mg tablet 7.5 - 15 mg PO Q6-8H MDD 1 PRN (Reason: PAIN) RF: 0 albuterol sulfate [ProAir HFA] 90 mcg/actuation HFA aerosol inhaler 2 puff inhalation PRN PRN (Reason: Shortness Of Breath Or Wheezing) RF: 0 pregabalin 150 mg capsule 150 mg PO BID RF: 0 furosemide 40 mg Tablet 40 mg PO DAILY RF: 0 amitriptyline 25 mg tablet 25 mg PO QPM RF: 0 aripiprazole [Abilify] 5 mg tablet 5 mg PO QPM RF: 0 magnesium 250 mg Tablet 500 mg PO DAILY RF: 0 Referrals: Alejandra Lynch MD [Primary Care Provider] -
[2019-07-11 18:58] LABS: NT-proBNP (BNP-Adult 18+) 99 pg/mL (<125); Troponin I < 0.012 ng/mL (0.01-0.034)
[2019-07-11 19:06] LABS: HCO3 ABG 28 mmol/L (22-26); Oxygen Saturation ABG 93 % (95-100); PCO2 ABG 42.5 mmHg (35-45); PO2 ABG 67 mmHg (80-100); TCO2 ABG 29 mmol/L (21-31); pH ABG 7.43 (7.35-7.45)
[2019-07-11 19:07] LABS: Fractionated Inspired Oxygen 21
--- NOTE | 2019-07-11 19:26 | PC.NURSE ---
UTILIZATION REVIEWER/TOOL PROCUREMENT COORDINATOR: Pt. walked with factory expert/spiritual counselor around the department. Pulse of 135 and O2 stats of 96 room air. EVAN Meza and notified.
== END 2019-07-11 19:49 | disposition home or self-care (01) ==
PROVIDERS: Emergency Provider Emergency Medicine; PCP Family Medicine
DX: J42 Unspecified chronic bronchitis (principal); R06.00 Dyspnea, unspecified; R07.9 Chest pain, unspecified
CPT/HCPCS: 36415; 36600; 71045; 71275; 80048; 81003; 81025; 82550; 82553; 82805; 83605; 83735; 83880; 84145; 84484; 85025; 87040; 93005; 94640; 96374; 99284; 99285; J2930; Q9967

== ENCOUNTER → 2019-07-19 14:39 | Outpatient (CLI) | payer OTHER, SELFPAY ==
[2019-07-19 16:06] LABS: Blood Urea Nitrogen 14 mg/dL (7-17); Calcium 10.2 mg/dL (8.4-10.2); Carbon Dioxide 25 mmol/L (22-32); Chloride 102 mmol/L (98-107); Estimated Glomerular Filt Rate > 60.0 mL/min (>60); Glucose 112 mg/dL (70-100); Sodium 139 mmol/L (137-145)
[2019-07-19 16:11] LABS: HEMOLYSIS 70 (0-50)
[2019-07-19 16:12] LABS: Potassium 5.1 mmol/L (3.4-5.1)
== END ==
PROVIDERS: PCP Family Medicine; Referring Provider Family Medicine; Visit Provider Family Medicine
DX: I10 Essential (primary) hypertension (principal); J42 Unspecified chronic bronchitis
CPT/HCPCS: 36415; 80048

== ENCOUNTER → 2019-08-01 17:22 | Outpatient (CLI) | payer OTHER, SELFPAY ==
[2019-08-01 19:30] LABS: Collection Time Urine 24 Hours; Creatinine 24 Hour Urine 1087 mg/day (800-1800); Creatinine Urine Random 41.8 mg/dL; Protein (Total) Urine Random 11 mg/dL (0-12); Total Protein 24 Hour Urine 286 mg/day (42-225); Total Volume Urine 2600 mL
== END ==
PROVIDERS: PCP Family Medicine; Referring Provider Family Medicine; Visit Provider Family Medicine
DX: R60.0 Localized edema (principal)
CPT/HCPCS: 82570; 84156

== ENCOUNTER → 2019-08-10 12:17 | Outpatient (CLI) | payer OTHER, SELFPAY ==
[2019-08-10 13:51] LABS: Hemoglobin A1C% w Est Avg Glu 6.2 % (4.0-6.0)
[2019-08-10 16:34] LABS: BUN Creatinine Ratio 20.8 (6-22); Blood Urea Nitrogen 15 mg/dL (7-17); Calcium 9.2 mg/dL (8.4-10.2); Carbon Dioxide 26 mmol/L (22-32); Chloride 101 mmol/L (98-107); Estimated Glomerular Filt Rate > 60.0 mL/min (>60); Glucose 111 mg/dL (70-100); HEMOLYSIS < 15 (0-50); Potassium 4.4 mmol/L (3.4-5.1); Sodium 137 mmol/L (137-145)
== END ==
PROVIDERS: Referring Provider Family Medicine; Visit Provider Family Medicine
DX: Z51.81 Encounter for therapeutic drug level monitoring (principal); Z79.899 Other long term (current) drug therapy; R73.9 Hyperglycemia, unspecified
CPT/HCPCS: 36415; 80048; 83036

== ENCOUNTER → 2019-08-25 10:48 | Outpatient (CLI) | payer OTHER, SELFPAY ==
[2019-08-25 12:36] LABS: Influenza A - CEPHEID Flu A NEGATIVE (NEGATIVE); Influenza B - CEPHEID Flu B NEGATIVE (NEGATIVE)
[2019-08-26 22:35] LABS: COVID19 Sendout Not Detected (Not Detected)
== END ==
PROVIDERS: Visit Provider Family Medicine
DX: R05 Cough (principal)
CPT/HCPCS: 87502; 87635

== ENCOUNTER 2019-09-19 07:39 | Emergency (ER) | payer OTHER, SELFPAY ==
[2019-09-19] VITALS (11 sets, daily range): BP systolic 130–167; BP diastolic 58–98; PULSE 85–104; RESP 16–29; TEMP 36.9; O2SAT 92–97; BMI 47.0
--- NOTE | 2019-09-19 07:57 | ED.GENADULT ---
HPI - General Adult General Chief complaint: Hypertension Stated complaint: Blood pressure high/high blood sugar rapid breath Time Seen by Provider: 09/19/19 07:57 History of Present Illness HPI narrative: 38-year-old woman with morbid obesity, polypharmacy, narcotic habituation, fibromyalgia, asthma, reflux, hypothyroidism presents this morning complaining that her blood pressure was elevated at home at 150/100, her blood sugar was 195 (reported was 200 yesterday morning typically runs in the 110-140 range), and she felt that she was breathing heavy. After talking with a consulting nurse she was instructed to come to the emergency room for further evaluation. She denies fever. Has a dramatically positive review of systems and was seen at [facility] last week because her was unable to wake her up. She notes she had a similar episode of her being unable to wake her up but reported heavy snoring so he knew that she was alive. Notes from [facility] are obtained and reviewed. Initial HPI indicates that she had had some alcohol and then combined that with her oxycodone and morphine and did respond to Narcan en route. Related Data Home Medications Medication Instructions Recorded Confirmed acetaminophen 500 mg tablet 1,000 mg PO TID tab 09/23/18 09/19/19 amitriptyline 25 mg PO QPM 09/23/18 09/19/19 cyclobenzaprine 10 mg tablet 10 mg PO BID tab 12/08/18 09/19/19 naloxone [Narcan] 1 dose INTRANASAL .ONCE PRN 01/13/19 09/19/19 ibuprofen 800 mg tablet 800 mg PO TID 02/09/19 09/19/19 morphine 15 mg tablet,extended 15 mg PO Q8H tab 02/09/19 09/19/19 release aripiprazole [Abilify] 5 mg PO QPM 06/29/19 09/19/19 magnesium 500 mg PO DAILY 06/29/19 09/19/19 potassium chloride 20 mEq 20 meq PO DAILY 07/07/19 09/19/19 tablet,extended release terazosin 5 mg capsule 10 mg PO BEDTIME cap 07/07/19 09/19/19 arformoterol [Brovana] 2 ml INHALATION BID 07/11/19 09/19/19 fluticasone propion-salmeterol 1 puff INHALATION BID 07/11/19 09/19/19 [Advair Diskus] oxycodone 10 mg PO Q6-8H PRN MDD 1 07/11/19 09/19/19 pregabalin 150 mg PO BID 07/11/19 09/19/19 Previous Rx's Medication Instructions Recorded blood sugar diagnostic #50 each 12/08/18 blood-glucose meter #1 each 12/08/18 lancets 33 gauge #100 each 12/08/18 TENS units #1 each 02/09/19 metoprolol tartrate 100 mg tablet 150 mg PO BID #270 tab 05/11/19 omeprazole 20 mg capsule,delayed 20 mg PO BID #180 cap 05/23/19 release albuterol sulfate 2 puff INHALATION Q4-6H PRN #8.5 07/11/19 gram levothyroxine 50 mcg tablet 50 mcg PO DAILY #90 tab 09/06/19 duloxetine 30 mg capsule,delayed 90 mg PO DAILY #90 cap 09/13/19 release Allergies Allergy/AdvReac Type Severity Reaction Status Date / Time carisoprodol [CARISOPRODOL] AdvReac Severe urinary Verified 09/19/19 07:55 retention fosphenytoin AdvReac Intermediate ITCHING Verified 09/19/19 12:56 Review of Systems Review of Systems Narrative: Complains of total body edema Constitutional Constitutional: Reports body ache(s), Reports chills, Reports daytime sleepiness, Reports fatigue, Reports headache(s), Reports lethargy, Reports malaise, Reports snoring and Reports weakness Eyes Eyes: Reports dry eyes ENT Ears, Nose, Mouth, and Throat: Reports dry mouth and Reports headache(s) Cardiovascular Cardiovascular: Reports rapid heart rate, Reports leg edema, Reports lightheadedness and Reports dyspnea Respiratory Respiratory: Reports cough, Reports dyspnea, Reports snoring and Reports wheezing Gastrointestinal Gastrointestinal: Denies abdominal pain and Denies change in bowel habits Genitourinary Genitourinary: Denies urinary frequency, Denies difficulty voiding and Denies dysuria Musculoskeletal Musculoskeletal: Reports myalgias, Reports arthralgias, Reports joint swelling and Reports muscle cramps Integumentary/Breasts Skin/Breast: Denies rash and Reports unusual bruising Neurologic Neurologic: Reports headache(s), Reports paresthesias and Reports weakness Psychiatric Psychiatric: Reports abnormal sleep pattern, Reports difficulty concentrating, Denies hallucinations and Denies suicidal ideation Endocrine Endocrine: Reports fatigue Allergic/Immunologic Allergic/Immunologic: Reports wheezing Patient History Medical History (Updated 09/19/19 @ 18:30 by Bhumi Mendoza MD) Acetaminophen overdose of undetermined intent (Resolved 12/2015) Asthma (Chronic) Cubital tunnel syndrome (Chronic) Depression (Chronic 02/08/14) Essential hypertension (Chronic) Fibromyalgia (Chronic 03/02/15) Intraoperative cardiac arrest during non-cardiac surgery (Resolved 11/2013) Lumbar back pain with radiculopathy affecting left lower extremity (Chronic) 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 (Chronic) Morbid obesity (Chronic) Narcotic habituation, continuous (Acute) Obstipation (Inactive) LYLA (obstructive sleep apnea) (Chronic) Ovarian cyst (Chronic) Plantar fasciitis (Chronic) Polypharmacy (Acute) Prediabetes (Chronic) Pulmonary embolism (Acute) Status post laminectomy (Inactive 12/14/15) Suicide attempt (Resolved) Tylenol overdose (Resolved) Urinary retention (Inactive) Surgical History History of carpal tunnel repair (Resolved 10/30/14) S/P epidural steroid injection (Resolved 11/2013) Status post dilation and curettage (Resolved 2008) Status post laminectomy (Resolved 09/2016) Social History Smoking Status: Former smoker Smoking Status: Former smoker alcohol intake frequency: a few times a week Substance Use Type: does not use Exam Narrative Exam Narrative: General: Morbidly obese, in no acute distress. Able to give a complete and coherent history. Neck: supple Respiratory: Lungs are clear to auscultation, no wheezing no rales no rhonchi. Full and symmetrical air movement Cardiac: Regular rate and rhythm no murmurs no bruits Abdomen: Soft nontender good bowel tones, no flank pain Skin: Warm and dry, no rashes. Large healing bruise in her right forearm that she relates to her [facility] ER visit 1 week ago Neurologic: Grossly neurologically intact with no obvious asymmetries or abnormalities Extremities: No trauma, well perfused, 3+ bilateral lower extremity edema and edema noted to the hands and forearms as well Psych: Cooperative, no hallucinations and fluent thought process Initial Vital Signs Initial Vital Signs: Vital Signs Temperature 98.4 F 09/19/19 07:55 Pulse Rate 104 H 09/19/19 07:55 Respiratory Rate 18 09/19/19 07:55 Blood Pressure 167/96 H 09/19/19 07:55 Pulse Oximetry 94 09/19/19 07:55 Course Orders Ordered: ED Orders 09/19/19 11:51 CT head/brain wo con Stat 09/19/19 14:54 MR head/brain wo/w con Stat Discontinued Medications Ammonia (Aromatic Spirit) (Ammonia Inhalant) 1 each INH NOW ONE Stop: 09/19/19 11:23 Last Admin: 09/19/19 11:22 Dose: 1 each Documented by: KRISTA Fosphenytoin Sodium 2,450 mg/ (Sodium Chloride) 149 mls @ 298 mls/hr IV NOW ONE Stop: 09/19/19 11:40 Last Infusion: 09/19/19 12:20 Dose: 0 mls/hr Documented by: Admin: 09/19/19 12:06 Dose: 298 mls/hr Documented by: KRISTA Levetiracetam 1,000 mg/ Sodium (Chloride) 110 mls @ 440 mls/hr IV NOW ONE Stop: 09/19/19 12:29 Last Infusion: 09/19/19 13:13 Dose: 0 mls/hr Documented by: Admin: 09/19/19 12:46 Dose: 440 mls/hr Documented by: KRISTA Lorazepam (Ativan) 1 mg IV NOW ONE Stop: 09/19/19 15:19 Last Admin: 09/19/19 15:24 Dose: 1 mg Documented by: KRISTA Vital Signs Vital signs: Vital Signs - 8 hr 09/19/19 11:30 09/19/19 12:45 09/19/19 14:34 Pulse Rate 95 H 98 H 96 H Respiratory Rate 20 20 18 Blood Pressure [Left Arm] 157/98 H 130/58 L 130/58 L Pulse Oximetry 94 96 95 09/19/19 16:27 Pulse Rate 89 Respiratory Rate 16 Blood Pressure [Left Arm] 144/77 H Pulse Oximetry 97 Medical Decision Making Medical Records Medical records reviewed: Yes I reviewed the patient's medical records. Lab Data Lab results reviewed: Yes I reviewed the patient's lab results. Result diagrams: 09/19/19 08:15 09/19/19 08:15 Labs: Lab Results 09/19/19 09/19/19 09/19/19 Range/Units 08:15 08:15 08:15 WBC 5.9 (4.5-11.0) X10^3/uL RBC 4.15 (4.0-5.2) X10^6/uL Hgb 10.2 L (12.0-16.0) g/dL Hct 32.4 L (36-46) % MCV 78.1 L (80-100) fL MCH 24.6 L (26-34) PG MCHC 31.5 (30-36) % RDW 17.3 H (11.6-14.8) % Plt Count 201 (150-400) X10^3/uL Neut % (Auto) 67.5 (50-75) % Lymph % (Auto) 19.2 L (25-40) % Stanton % (Auto) 10.0 (3-14) % Eos % (Auto) 2.8 (2-4) % Baso % (Auto) 0.5 (0-2) % Neut # (Auto) 4000 (1247-2770) /uL Lymph # (Auto) 1100 (6449-5761) /uL Stanton # (Auto) 600 (0-900) /uL Eos # (Auto) 200 (0-450) /uL Baso # (Auto) 0 (0-100) /uL Sodium 139 (137-145) mmol/L Potassium 3.5 (3.4-5.1) mmol/L Chloride 100 (98-107) mmol/L Carbon Dioxide 33 H (22-32) mmol/L BUN 8 (7-17) mg/dL Creatinine 0.51 L (0.52-1.04) mg/dL Estimated GFR > 60.0 (>60) mL/min BUN/Creatinine Ratio 15.7 (6-22) Glucose 197 H (70-100) mg/dL Calcium 9.0 (8.4-10.2) mg/dL Total Bilirubin 0.2 (0.2-1.3) mg/dL AST 27 (14-36) IU/L ALT 17 (<35) IU/L Alkaline Phosphatase 91 (38-126) U/L Troponin I < 0.012 (0.01-0.034) ng/mL Total Protein 7.4 (6.3-8.2) g/dL Albumin 3.9 (3.5-5.0) g/dL Globulin 3.5 (1.7-4.1) g/dL Albumin/Globulin Ratio 1.1 (1.0-2.8) Procalcitonin < 0.05 (<0.5) ng/mL Imaging Data CT scan - head: Radiologist's Impression: IMPRESSION: Unremarkable noncontrast head CT. Stable from prior. Dictated by: Rickie Lundberg M.D. on 09/19/2019 at 11:38 MRI brain: Radiologist's Impression: IMPRESSION: 1. Limited exam secondary to motion. No gross acute intracranial process. Dictated by: Jenny Abreu M.D. on 09/19/2019 at 16:18 ECG Data Attestation: I personally reviewed and interpreted this ECG as follows: Interpretation: Sinus rhythm at a rate of 80 Right bundle branch block No acute ischemic changes No comparisons available MDM Narrative Medical decision making narrative: 38-year-old woman with multiple medical problems including narcotic habituation and significant polypharmacy with multiple medications that could be influencing her peripheral edema, fatigue and reports of not being able to awaken. Possibility of a Munchausen stye per presentation is also entertained. She was concerned that her blood sugars were elevated in her blood pressure was high. Will check basic chemistries. After taking her morning metoprolol her blood pressures return to normal. She does have peripheral edema in her hands and significantly worse in the lower extremities. She states that she can start her diabetes medications until she talks with the video poker floorman regarding her kidney function but remains on 800 mg of ibuprofen 3 times a day. She takes 15 mg of morphine up to 3 times a day and up to 15 mg of oxycodone every 6-8 hours. Getting ready for discharge and found her to be unarousable. Resting oxygen saturations without room air were at 87-88%. Saturations to come up with oxygen and some stimulation but she still is minimally responsive. Have not knowingly had her take any narcotics during her arm urgency room visit. Will try Narcan and see if this influences her arousal level. If not, will moved to CT scan of the head. 1141 altered mental status now for approximately 15 minutes. On clinical exam she has got shallow rapid breathing and wants her airway is an obstructed by simply helping her head back her oxygen saturations are in the mid 90s. Eyes with rapid movement and the eyelids eyes themselves have significantly dilated pupils and are staring up into the upper right field. She has increased overall muscle tone own and I am unable to elicit any reflexes and biceps or patella. There is no response at all to Narcan. No response to ammonia. Tachypnea slowed slightly after IV Ativan and will now be adding IV fosphenytoin. Presumption at this point is a padded mal type seizure with continued seizing currently. Will moved to CT scan. Continues to be hemodynamically stable and is maintaining her airway. Seizure precautions initiated. 12:00 now alert. Has no recollection of last 45 minutes. She does state that this is exactly what has happened with the previous episodes where her was ?unable to wake her up? period 1215 within minutes of starting IV fosphenytoin she is developing significant itching rash and feeling like she is going to climb out of her skin. The IV infusion is discontinued she is given 25 mg of IV Benadryl. Will switch to IV Keppra Will review case with neurology 215pm Dr Graham, neurology [facility]. Reviewed findings including concerns for seizure. His recommendation was an MRI brain with contrast to see if there is any type of seizure focus that was visible. If patient was interested in being on medications he recommended 500 mg b.i.d. of Keppra. Reviewed findings with patient, she has had MRIs without consequence before this will be ordered. Regarding medications, given previous concern an ongoing concern for polypharmacy and medication side effects in light of seizure-like activity that is not life-threatening, which shared decision making we opted to not begin Keppra 500 b.i.d. at this time. She will review her medication list to see what medicines can be decreased or stopped with her primary care physician and if she continues to have these seizure-like episodes than we do have medication dosing and recommendations to try. Will likely benefit from neurology follow-up to be arranged by her primary care physician. Critical Care Time Critical Care Time Critical Care Time: Yes Total Critical Care Time: 33 Attestation: Active management of seizure Discharge Plan Departure Patient Disposition: Home Clinical Impression: Observed seizure-like activity, Polypharmacy Edema Qualifiers: Edema type: unspecified Qualified Code(s): R60.9 - Edema, unspecified Instructions: DI for Seizure (Not Epilepsy/Seizure Disorder) Activity Restrictions/Additional Instructions: Thank you so much for coming in today I was not able to find an alternate explanation for the chronic edema that you are having in her hands and her feet. Continuing to look at increased activity, decreasing overall carbohydrates and salt and taking a careful look at all of your medications including those that can cause worsening peripheral edema with her primary care physician You did have an episode that appears to be some type of seizure-like activity today. It lasted 45 minutes. The main finding was your eyes deviated up into the right with widely dilated pupils without significant additional motor activity. Because of this is CT scan of your brain was done that showed no acute findings. I talked with 1 of the Neurology specialists at [facility] who recommended an MRI. This also was done which showed no specific seizure foci. The neurologist suggested Keppra 500 mg twice a day if you wanted to have an option to prevent these episodes. In light of the multiple medications are on we opted to not start this today Polypharmacy. You are on we to many medications. When your medication list gets this extensive interactions are almost always a problem. I think your urinary retention is an example of this. Using narcotics, high-dose Lyrica, cyclobenzaprine for your fibromyalgia initially may be helpful but I am concerned that the doses and the chronicity are no longer beneficial for you. Often the only way to figure out how much better you feel on less medication is to actually decrease some of your medications. I strongly encourage you to discuss which medications to begin decreasing and how to safely do this with your primary care physician at your appointment on Regarding your concern about renal function and the peripheral edema, I am going to suggest that you decrease your ibuprofen down to a 400 mg rather than 800 mg. Most studies suggest that 400 mg is equally effective and will cause less peripheral edema and other side effects associated with high-dose nonsteroidal anti-inflammatories Regarding her chronic pain medication. As with all narcotic use or body's become habituated to the dose. This is why you have had to increase the oxycodone. There is no evidence that chronic narcotics are helpful with chronic back or fibromyalgia pain. Please discuss this with your primary care as well as her pain clinic physicians. You may be an excellent candidate to consider the use of Suboxone as a chronic pain medication rather than morphine and oxycodone. I wish you the best Prescriptions: No Action (DME) Diatrue Plus Test Strip strip See Dose Instructions .ROUTE .MEDSUPPLY Qty: 50 RF: 12 (DME) blood-glucose meter [Diatrue Plus Blood Glucose Met] misc See Dose Instructions .ROUTE .MEDSUPPLY Qty: 1 RF: 0 (DME) lancets [Easy Touch Twist Lancets] 33 gauge misc See Dose Instructions .ROUTE .MEDSUPPLY Qty: 100 RF: 3 morphine 15 mg tablet extended release 15 mg PO Q8H RF: 0 ibuprofen 800 mg tablet 800 mg PO TID RF: 0 (DME) TENS units device See Rx Instructions .ROUTE .MEDSUPPLY Qty: 1 RF: 0 metoprolol tartrate 100 mg tablet 150 mg PO BID Qty: 270 RF: 2 omeprazole 20 mg capsule,delayed release(DR/EC) 20 mg PO BID Qty: 180 RF: 1 terazosin 5 mg capsule 10 mg PO BEDTIME RF: 0 potassium chloride 20 mEq tablet extended release 20 meq PO DAILY RF: 0 levothyroxine 50 mcg tablet 50 mcg PO DAILY Qty: 90 RF: 0 duloxetine 30 mg capsule,delayed release(DR/EC) 90 mg PO DAILY Qty: 90 RF: 5 cyclobenzaprine 10 mg tablet 10 mg PO BID RF: 0 acetaminophen [Tylenol Extra Strength] 500 mg tablet 1,000 mg PO TID RF: 0 Narcan 4 mg/actuation spray,non-aerosol 1 dose intranasal .ONCE PRN (Reason: Opiate Reversal) RF: 0 fluticasone propion-salmeterol [Advair Diskus] 100-50 mcg/dose blister with device 1 puff INHALATION BID RF: 0 Brovana 15 mcg/2 mL solution for nebulization 2 ml INHALATION BID RF: 0 oxycodone 15 mg tablet 10 mg PO Q6-8H MDD 1 PRN (Reason: PAIN) RF: 0 pregabalin 150 mg capsule 150 mg PO BID RF: 0 albuterol sulfate 90 mcg/actuation HFA aerosol inhaler 2 puff INHALATION Q4-6H PRN (Reason: shortness of breath or wheezing) Qty: 8.5 RF: 0 amitriptyline 25 mg tablet 25 mg PO QPM RF: 0 aripiprazole [Abilify] 5 mg tablet 5 mg PO QPM RF: 0 magnesium 250 mg Tablet 500 mg PO DAILY RF: 0
--- NOTE | 2019-09-19 08:33 | DI.RAD.S_ITS ---
PROCEDURE: XR CHEST 1V INDICATIONS: dyspnea. TECHNIQUE: One view of the chest was acquired. COMPARISON: [facility], CR, XR CHEST 1V, 07/11/2019, 14:08. FINDINGS: Surgical changes and devices: None. Lungs and pleura: There is mild pulmonary vascular congestion. Mild pulmonary edema is also likely present. No definite focal infiltrate. No pleural effusions or pneumothorax. Mediastinum: Mediastinal contours appear normal. Heart size is normal. Bones and chest wall: No suspicious bony lesions. Overlying soft tissues appear unremarkable. IMPRESSION: Mild congestion and mild pulmonary edema. No definite focal infiltrate. Dictated by: Lambert King M.D. on 09/19/2019 at 8:46 Approved by: Lambert King M.D. on 09/19/2019 at 8:47
[2019-09-19 08:39] LABS: Add Manual Diff / Slide Review NO; Basophils Absolute Auto 0 /uL (0-100); Basophils Percent Auto 0.5 % (0-2); Eosinophils Absolute Auto 200 /uL (0-450); Eosinophils Percent Auto 2.8 % (2-4); Hematocrit 32.4 % (36-46); Hemoglobin 10.2 g/dL (12.0-16.0); Lymphocytes Absolute Auto 1100 /uL (1100-4500); Lymphocytes Percent Auto 19.2 % (25-40); Mean Corpuscular HGB Conc 31.5 % (30-36); Mean Corpuscular Hemoglobin 24.6 PG (26-34); Mean Corpuscular Volume 78.1 fL (80-100); Monocytes Absolute Auto 600 /uL (0-900); Neutrophils Absolute Auto 4000 /uL (1500-7000); Neutrophils Percent Auto 67.5 % (50-75); Platelet Count 201 X10^3/uL (150-400); Red Blood Cell Count 4.15 X10^6/uL (4.0-5.2); Red Cell Distribution Width 17.3 % (11.6-14.8); White Blood Cell Count 5.9 X10^3/uL (4.5-11.0)
[2019-09-19 08:48] LABS: Alanine Aminotransferase 17 IU/L (<35); Albumin 3.9 g/dL (3.5-5.0); Albumin Globulin Ratio 1.1 (1.0-2.8); Alkaline Phosphatase 91 U/L (38-126); Aspartate Aminotransferase 27 IU/L (14-36); BUN Creatinine Ratio 15.7 (6-22); Bilirubin Total 0.2 mg/dL (0.2-1.3); Blood Urea Nitrogen 8 mg/dL (7-17); Carbon Dioxide 33 mmol/L (22-32); Chloride 100 mmol/L (98-107); Estimated Glomerular Filt Rate > 60.0 mL/min (>60); Globulin 3.5 g/dL (1.7-4.1); Glucose 197 mg/dL (70-100); HEMOLYSIS < 15 (0-50); Potassium 3.5 mmol/L (3.4-5.1); Sodium 139 mmol/L (137-145); Total Protein 7.4 g/dL (6.3-8.2)
[2019-09-19 08:59] LABS: Troponin I < 0.012 ng/mL (0.01-0.034)
[2019-09-19 09:04] LABS: Procalcitonin < 0.05 ng/mL (<0.5)
[2019-09-19] MEDS: NALOXONE 0.4 MG/ML VIAL IV (11:16)
[2019-09-19] MEDS: AMMONIA INHALANT 1 EACH INH (11:22)
[2019-09-19] MEDS: LORazepam 2 MG/ML INJ (11:30)
--- NOTE | 2019-09-19 11:39 | PC.NURSE ---
1112: arrived into Pt room after SPO2 alarming. 88% RA. pt lowered in bed to elongate neck. sats up to 95% RA. Pt not responding to verbal or noxious stim. made aware. 1120: pt hyperventilating RR 60's. No response to noxious stim. 0.4mg Narcan admin IN. breathing slowed to RR20. Sat 96% RA. continues to not respond to sternal rub or noxious stim to nailbed. states this has happened a few times before and resolves on it own. states shes being worked up for something neurological but unaware what diagnosis. Concern for seizure activity. MD aware and at bedside for assessment 1130: Ammonia salts attempted with minimal change and Ativan 2mg IV given per JUL. Sat 93% RA. awaiting further orders.
--- NOTE | 2019-09-19 11:51 | DI.CT.S_ITS ---
PROCEDURE: CT HEAD/BRAIN WO CON INDICATIONS: seizure TECHNIQUE: Noncontrast 4.5 mm thick angled axial sections acquired from the foramen magnum to the vertex, with coronal and sagittal reformats. For radiation dose reduction, the following was used: automated exposure control, adjustment of mA and/or kV according to patient size. COMPARISON: [facility], CT, CT HEAD/BRAIN WO CON, 02/11/2019, 14:54. FINDINGS: Image quality: Excellent. CSF spaces: Basal cisterns are patent. No extra-axial fluid collections. Ventricles are normal in size and shape. Brain: No midline shift. No intracranial masses or hemorrhage. Waterman-white matter interface is normal. Skull and face: Calvarium and visualized facial bones are intact, without suspicious lesions. Sinuses: Visualized sinuses and mastoids are clear. IMPRESSION: Unremarkable noncontrast head CT. Stable from prior. Dictated by: Rickie Lundberg M.D. on 09/19/2019 at 11:38 Approved by: Rickie Lundberg M.D. on 09/19/2019 at 11:39
[2019-09-19] MEDS: SODIUM CHLORIDE 0.9% IV (12:06)
[2019-09-19] MEDS: FOSPHENYTOIN IV (12:06)
--- NOTE | 2019-09-19 12:29 | PC.NURSE ---
1200: arrived in pt room. awake and alert without recollection of events occured. states she is sleepy, AAOx3, 2nd IV placed in L AC. Fosphenytoin infusing per MAR. Seizure precautions in place. 1230: DI in for CT head. Pt physical integration practitioner light states IV medication is burning and making her itchy. medication stopped, flushed. made aware. Order to admin Benadrl 25mg IV. Given. Awaiting order for Keppra IV.
[2019-09-19] MEDS: diphenhydrAMINE 50 MG/ML VIAL (12:33)
[2019-09-19] MEDS: levETIRAcetam 1,000 MG in SODIUM CHLORIDE 0.9% 100 ML 440 ML IV (12:46)
--- NOTE | 2019-09-19 14:54 | DI.MRI.S_ITS ---
PROCEDURE: MR HEAD/BRAIN WO/W CON INDICATIONS: new seizures. Neuro req with contrast, dont need wo TECHNIQUE: Noncontrast axial T1 spin echo, axial T2 fast spin echo, sagittal and axial FLAIR, coronal T2 fast spin echo, axial gradient echo, axial diffusion and ADC through the brain. After the administration of contrast, axial and coronal 3D VIBE or T1 spin echo with fat saturation through the brain. COMPARISON: [facility], CT, CT HEAD/BRAIN WO CON, 02/11/2019, 14:54. [facility], CT, CT HEAD/BRAIN WO CON, 09/19/2019, 12:21. FINDINGS: Image quality: Motion is present on multiple sequences, limiting areas of fine detail evaluation. Portions of some sequences are considered nondiagnostic. CSF Spaces: Basal cisterns are patent. No extra-axial fluid collections. Ventricles are normal in size and shape. Brain: No midline shift. No intracranial bleeds or masses. No abnormal intracranial enhancement. The brainstem appears normal. Diffusion-weighted images demonstrate no acute ischemic insults. No chronic ischemic insults. Normal intravascular flow voids are present. Skull and face: Calvarial marrow is normal in signal. Orbits appear normal. Sinuses: Sinuses and mastoids appear clear. IMPRESSION: 1. Limited exam secondary to motion. No gross acute intracranial process. Dictated by: Jenny Abreu M.D. on 09/19/2019 at 16:18 Approved by: Jenny Abreu M.D. on 09/19/2019 at 16:19
--- NOTE | 2019-09-19 15:10 | PC.NURSE ---
Pt ambulatory to [facility]. filling out MRI sheet with DI tech.
[2019-09-19] MEDS: LORazepam 2 MG/ML INJ 1 MG IV (15:24)
--- NOTE | 2019-09-19 15:38 | PC.NURSE ---
pt off floor for MRI
[2019-09-19 22:15] LABS: COVID19 Sendout Not Detected (Not Detect)
== END 2019-09-19 18:48 | disposition home or self-care (01) ==
PROVIDERS: Emergency Provider Emergency Medicine
DX: R56.9 Unspecified convulsions (principal); Z79.899 Other long term (current) drug therapy; R60.9 Edema, unspecified; E66.01 Morbid (severe) obesity due to excess calories; R06.00 Dyspnea, unspecified; R41.82 Altered mental status, unspecified
CPT/HCPCS: 36415; 70450; 70553; 71045; 80053; 84145; 84484; 85025; 87635; 93005; 96365; 96375; 96376; 99285; 99291; J1200; J1953; J2060; J2310; Q2009

== ENCOUNTER 2019-09-21 09:25 | Emergency (ER) | payer OTHER, SELFPAY ==
[2019-09-21 09:35] VITALS: BP 148/91; PULSE 67; RESP 18; O2SAT 97
--- NOTE | 2019-09-21 09:41 | DI.RAD.S_ITS ---
PROCEDURE: XR CHEST 1V INDICATIONS: chest pain TECHNIQUE: One view of the chest was acquired. COMPARISON: [facility], CR, XR CHEST 1V, 09/19/2019, 8:41. FINDINGS: Surgical changes and devices: None. Lungs and pleura: Persistent mild diffuse interstitial prominence with slight vascular congestion. No focal consolidation. Minimal fluid in the right minor fissure. Veil-like opacity of the left costophrenic angle suggestive of a small pleural effusion. No pneumothorax. Lung volumes are slightly decreased. Mediastinum: Mediastinal contours appear normal. Heart size is normal. Bones and chest wall: No suspicious bony lesions. Overlying soft tissues appear unremarkable. IMPRESSION: Stable appearance of the chest with findings compatible with mild pulmonary edema. Infectious process not excluded if clinically appropriate. No focal consolidation. Dictated by: Jim Magana M.D. on 09/21/2019 at 10:46 Approved by: Jim Magana M.D. on 09/21/2019 at 10:48
--- NOTE | 2019-09-21 10:03 | ED_ITS ---
HPI - Chest Pain General Chief Complaint: Chest Pain Stated Complaint: Chest pain and [facility] Time Seen by Provider: 09/21/19 10:00 Source: patient Mode of arrival: Ambulatory History of Present Illness HPI narrative: HPI: The patient is a 38-year-old female who was seen and evaluated by Dr. Acevedo on September 18. At that time she was diagnosed to have narcotic habituation, morbid obesity polypharmacy fibromyalgia asthma reflux esophagitis and hypothyroidism. She was complaining of shortness of breath at t hat time and an elevated blood pressure. She had been found unresponsive the week before by her and again unresponsive by her on that day. She was thought to be possibly having seizures. A CT scan of her head was obtained which was unremarkable and stable from her prior CT scan. An MRI was performed at the same time with limited exam secondary to motion. There was no gross intracranial pathology noted. Her chest x-ray at that time revealed mild congestion and mild pulmonary edema without any focal infiltrates. Her [place] it test was negative. Her INR at that time was 1.0. Sodium 139 potassium 3.5 chloride 100 bicarb elevated at 33. Creatinine was 0.51 GFR was greater than 60. Her liver function tests were normal. Troponin was less than 0.012 procalcitonin was less than 0.05. Today the patient comes into the emergency department after she states that she was seen at [facility] in the emergency department and told that she had a pulmonary embolism in her chest. She was reported to have been started on Lovenox. The patient states that she left against medical advice because they would not give her any medications. The patient is here complainin g that she has an intermittently sharp dull achy discomfort. She admits to history of asthma hypertension and diabetes mellitus but denies myocardial infarction or stroke. She denies that she uses any drugs admits to drinking alcohol and is a former smoker. At this time she denies any fever chills sweats headache complains that she has shortness of breath cough with chest pain. She denies any palpitations or this [place]. She has had no significant abdominal pain. She denies any diarrhea melena hematochezia but has had intermittent nausea and vomiting. She denies any urinary symptoms. She admits to being 300 lb with a height the 5 ft 7 in. Related Data Home Medications Medication Instructions Recorded Confirmed acetaminophen 500 mg tablet 1,000 mg PO TID tab 09/23/18 09/21/19 amitriptyline 25 mg PO QPM 09/23/18 09/21/19 cyclobenzaprine 10 mg tablet 10 mg PO BID tab 12/08/18 09/21/19 naloxone [Narcan] 1 dose INTRANASAL .ONCE PRN 01/13/19 09/21/19 ibuprofen 800 mg tablet 800 mg PO TID 02/09/19 09/21/19 morphine 15 mg tablet,extended 15 mg PO Q8H tab 02/09/19 09/21/19 release aripiprazole [Abilify] 5 mg PO QPM 06/29/19 09/21/19 magnesium 500 mg PO DAILY 06/29/19 09/21/19 potassium chloride 20 mEq 20 meq PO DAILY 07/07/19 09/21/19 tablet,extended release terazosin 5 mg capsule 10 mg PO BEDTIME cap 07/07/19 09/21/19 arformoterol [Brovana] 2 ml INHALATION BID 07/11/19 09/21/19 fluticasone propion-salmeterol 1 puff INHALATION BID 07/11/19 09/21/19 [Advair Diskus] oxycodone 10 mg PO Q6-8H PRN MDD 1 07/11/19 09/21/19 Previous Rx's Medication Instructions Recorded blood sugar diagnostic #50 each 12/08/18 blood-glucose meter #1 each 12/08/18 lancets 33 gauge #100 each 12/08/18 TENS units #1 each 02/09/19 metoprolol tartrate 100 mg tablet 150 mg PO BID #270 tab 05/11/19 omeprazole 20 mg capsule,delayed 20 mg PO BID #180 cap 05/23/19 release albuterol sulfate 2 puff INHALATION Q4-6H PRN #8.5 07/11/19 gram levothyroxine 50 mcg tablet 50 mcg PO DAILY #90 tab 09/06/19 duloxetine 30 mg capsule,delayed 90 mg PO DAILY #90 cap 09/13/19 release pregabalin 150 mg capsule 150 mg PO BID #60 cap 09/20/19 hydrocodone-acetaminophen [[address]] 1 tab PO Q4-6H PRN #14 tab 09/21/19 Allergies Allergy/AdvReac Type Severity Reaction Status Date / Time carisoprodol [CARISOPRODOL] AdvReac Severe urinary Verified 09/19/19 07:55 retention fosphenytoin AdvReac Intermediate ITCHING Verified 09/19/19 12:56 Review of Systems Review of Systems Narrative: Her review of systems are negative except for the history of present illness. Patient History Medical History Acetaminophen overdose of undetermined intent (Resolved 12/2015) Asthma (Chronic) Cubital tunnel syndrome (Chronic) Depression (Chronic 02/08/14) Essential hypertension (Chronic) Fibromyalgia (Chronic 03/02/15) Intraoperative cardiac arrest during non-cardiac surgery (Resolved 11/2013) Lumbar back pain with radiculopathy affecting left lower extremity (Chronic) 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 (Chronic) Morbid obesity (Chronic) Narcotic habituation, continuous (Acute) Obstipation (Inactive) LYLA (obstructive sleep apnea) (Chronic) Ovarian cyst (Chronic) Plantar fasciitis (Chronic) Polypharmacy (Acute) Prediabetes (Chronic) Pulmonary embolism (Acute) Status post laminectomy (Inactive 12/14/15) Suicide attempt (Resolved) Tylenol overdose (Resolved) Urinary retention (Inactive) Surgical History History of carpal tunnel repair (Resolved 10/30/14) S/P epidural steroid injection (Resolved 11/2013) Status post dilation and curettage (Resolved 2008) Status post laminectomy (Resolved 09/2016) Social History Smoking Status: Former smoker Smoking Status: Former smoker alcohol intake frequency: a few times a week Substance Use Type: does not use Exam Narrative Exam Narrative: PHYSICAL EXAM: CONSTITUTIONAL: Awake, Alert, Oriented, Coherent, Cooperative in NAD. Does not appear toxic or ill. The patient is lying supine in bed. HEAD: AT/NC EENT: PERRL, FROM of eyes, no discharge, no nystagmus NOSE:No epistaxis or nasal drainage MOUTH:Oral mucosa is moist and pink, posterior pharynx is without erythema or exudate. NECK: Supple, no obvious JVD, Trachea is midline without stridor, no palpable LN. SPINE: Palpationof the cervical, Thoracic, Lumbar or Sacral spine reveals no gross deformity or tenderness. No CVA tenderness. THORAX: No deformity, retractions, chest wall tenderness. LUNGS: Clear, symmetrical breath sounds without respiratory distress. HEART: Normal heart tones, regular rhythm and rate without murmur. ABDOMEN: Soft, non-tender, normal bowel sounds without guarding, rebound, rigidity or palpable mass. EXTREMITIES: No edema, deformity, tenderness or cyanosis. Morbidly obese and swollen without pitting edema. SKIN: No rash, bruising, petechiae or purpura. NEURO: Awake, alert, oriented, conversive, cranial nerves II-XII are symmetrical , moves all 4 extremities and is ambulatory. Initial Vital Signs Initial Vital Signs: Vital Signs Pulse Rate 67 09/21/19 09:35 Respiratory Rate 18 09/21/19 09:35 Blood Pressure 148/91 H 09/21/19 09:35 Pulse Oximetry 97 09/21/19 09:35 Course Course Course Narrative: 1245: The records from [facility] revealed that the patient presented to the emergency department with tachycardia elevated D-dimer and a past history of pulmonary embolism. The patient was no longer on anticoagulation so a CT angiogram of her lungs were obtained. This revealed that she had pulmonary embolism in the right upper lobe and right lower lobe involving the pulmonary arteries. A emboli extended into the segmental arteries in the right lower lobe. Overall there was mild to moderate clot burden. There were no evidence of pulmonary infarct. There was no suggestion o f acute pulmonary arterial hypertension. The patient was admitted to the hospital for the completion of extremity Doppler ultrasounds to rule out deep vein thrombophlebitis because her legs were swollen. The patient signed out against medical advice because she had an appointment at 12:00 p.m. noon with Nephrology. The physician at [facility] documented that he/she called in a prescription for Lovenox and Coumadin into her pharmacy at [facility]. For pain the patient has oxycodone and morphine at home. Prior to coming into the ED at [facility] she informed the nurse that she took her own pain medication because they would not give her any at [facility]. 1345 on discharge the patient states that no ultrasound was performed. I thought I place the order on this patient and with the computer jumping it was placed on a different patient. I was going in to verify whether or not she received her Lovenox and she had left. I was informing her that we had ordered the ultrasound of her legs to let her know if she had blood clots in her legs as well as her lungs. The patient stated that she did not want wait for the US and was leaving. The patient was not given the [address] 5/325 that appears in the discharge summary because she has oxycodone and morphine at home. She was advis ed to use these medications for her pain as prescribed. . Orders Ordered: Discontinued Medications Ketorolac Tromethamine (Toradol) 30 mg IV NOW ONE Stop: 09/21/19 10:39 Last Admin: 09/21/19 10:54 Dose: 30 mg Documented by: BTONER Ondansetron HCl (Zofran) 4 mg IV NOW ONE Stop: 09/21/19 10:39 Last Admin: 09/21/19 10:54 Dose: 4 mg Documented by: BTONER Vital Signs Vital signs: Vital Signs - 8 hr 09/21/19 09:35 09/21/19 10:08 09/21/19 11:09 Temperature 98.2 F Pulse Rate 67 94 H 91 H Respiratory Rate 18 20 24 Blood Pressure 148/91 H Blood Pressure [Left Arm] 121/57 L 111/55 L Pulse Oximetry 97 94 87 L 09/21/19 11:30 09/21/19 12:30 Temperature Pulse Rate 93 H 91 H Respiratory Rate Blood Pressure Blood Pressure [Left Arm] 106/60 123/79 Pulse Oximetry 96 96 MDM - Chest Pain Medical Records Data Attestation: I reviewed the patient's medical records. Lab Data Attestation: I reviewed the patient's lab results. Result diagrams: 09/21/19 10:00 09/21/19 10:00 Labs: Lab Results 09/21/19 09/21/19 09/21/19 Range/Units 10:00 10:00 10:00 WBC 5.9 (4.5-11.0) X10^3/uL RBC 3.89 L (4.0-5.2) X10^6/uL Hgb 9.6 L (12.0-16.0) g/dL Hct 30.2 L (36-46) % MCV 77.6 L (80-100) fL MCH 24.8 L (26-34) PG MCHC 31.9 (30-36) % RDW 17.4 H (11.6-14.8) % Plt Count 192 (150-400) X10^3/uL Neut % (Auto) 68.6 (50-75) % Lymph % (Auto) 17.5 L (25-40) % Sullivan % (Auto) 10.0 (3-14) % Eos % (Auto) 3.1 (2-4) % Baso % (Auto) 0.8 (0-2) % Neut # (Auto) 4100 (5438-4751) /uL Lymph # (Auto) 1000 L (2166-8102) /uL Sullivan # (Auto) 600 (0-900) /uL Eos # (Auto) 200 (0-450) /uL Baso # (Auto) 0 (0-100) /uL PT 11.4 (10.1-12.7) SECONDS INR 1.0 (0.9-1.3) APTT 28 (26.4-36.2) SECONDS Sodium 139 (137-145) mmol/L Potassium 3.8 (3.4-5.1) mmol/L Chloride 102 (98-107) mmol/L Carbon Dioxide 31 (22-32) mmol/L BUN 7 (7-17) mg/dL Creatinine 0.51 L (0.52-1.04) mg/dL Estimated GFR > 60.0 (>60) mL/min BUN/Creatinine Ratio 13.7 (6-22) Glucose 140 H (70-100) mg/dL Calcium 9.3 (8.4-10.2) mg/dL Total Bilirubin 0.3 (0.2-1.3) mg/dL AST 30 (14-36) IU/L ALT 18 (<35) IU/L Alkaline Phosphatase 100 (38-126) U/L Total Creatine Kinase 250 H (30-135) U/L CK-MB (CK-2) 2.90 H (<2.37) ng/mL CK-MB (CK-2) Rel Index 1.2 L (1.5-5.0) % Troponin I < 0.012 (0.01-0.034) ng/mL NT-Pro-B Natriuret Pep (<125) pg/mL Total Protein 7.3 (6.3-8.2) g/dL Albumin 3.9 (3.5-5.0) g/dL Globulin 3.4 (1.7-4.1) g/dL Albumin/Globulin Ratio 1.1 (1.0-2.8) Lipase 11 L (23-300) U/L 09/21/19 Range/Units 10:00 WBC (4.5-11.0) X10^3/uL RBC (4.0-5.2) X10^6/uL Hgb (12.0-16.0) g/dL Hct (36-46) % MCV (80-100) fL MCH (26-34) PG MCHC (30-36) % RDW (11.6-14.8) % Plt Count (150-400) X10^3/uL Neut % (Auto) (50-75) % Lymph % (Auto) (25-40) % Sullivan % (Auto) (3-14) % Eos % (Auto) (2-4) % Baso % (Auto) (0-2) % Neut # (Auto) (0820-6431) /uL Lymph # (Auto) (6547-7539) /uL Sullivan # (Auto) (0-900) /uL Eos # (Auto) (0-450) /uL Baso # (Auto) (0-100) /uL PT (10.1-12.7) SECONDS INR (0.9-1.3) APTT (26.4-36.2) SECONDS Sodium (137-145) mmol/L Potassium (3.4-5.1) mmol/L Chloride (98-107) mmol/L Carbon Dioxide (22-32) mmol/L BUN (7-17) mg/dL Creatinine (0.52-1.04) mg/dL Estimated GFR (>60) mL/min BUN/Creatinine Ratio (6-22) Glucose (70-100) mg/dL Calcium (8.4-10.2) mg/dL Total Bilirubin (0.2-1.3) mg/dL AST (14-36) IU/L ALT (<35) IU/L Alkaline Phosphatase (38-126) U/L Total Creatine Kinase (30-135) U/L CK-MB (CK-2) (<2.37) ng/mL CK-MB (CK-2) Rel Index (1.5-5.0) % Troponin I (0.01-0.034) ng/mL NT-Pro-B Natriuret Pep 155 H (<125) pg/mL Total Protein (6.3-8.2) g/dL Albumin (3.5-5.0) g/dL Globulin (1.7-4.1) g/dL Albumin/Globulin Ratio (1.0-2.8) Lipase (23-300) U/L ECG Data Attestation: I personally reviewed and interpreted this ECG as follows: Interpretation: The patient's EKG obtained on September 20 at 1009:36 reveals a normal sinus rhythm with definite P waves with a ventricular rate of 90. The IL interval is approximately 0.12. The computer reads it as atrial flutter which it does not appear as atrial flutter. The patient's QTC is 430 2:00 a.m. is normal. The patient has inverted T-waves in leads III AVF V2 V3 V4 with a right bundle branch block pattern no other acute diagnostic ST segment changes noted. Discharge Plan Departure Patient Disposition: Home Clinical Impression: Morbid obesity, Narcotic dependence, History of syncope, Chronic pain syndrome Chest pain Qualifiers: Chest pain type: unspecified Qualified Code(s): R07.9 - Chest pain, unspecified Dyspnea Qualifiers: Dyspnea type: unspecified Qualified Code(s): R06.00 - Dyspnea, unspecified Pulmonary embolism Qualifiers: Pulmonary embolism type: unspecified Chronicity: acute Acute cor pulmonale presence: without acute cor pulmonale Qualified Code(s): I26.99 - Other pulmonary embolism without acute cor pulmonale Discharge Date/Time: 09/21/19 14:08 Instructions: DI for Pulmonary Embolism, DI for Chest Pain Activity Restrictions/Additional Instructions: 1. Follow-up with your primary care physician in the next 24-48 hours. Call and make a virtual appointment. 2. Obtained the Lovenox and Coumadin called into [facility] by [facility]. 3. Return to the emergency department if you develop increased chest pain shortness of breath fainting seizure activity or passing out. 4. Take the Percocet and Morphine you have at home for your pain and discomfort. 5. You need to follow-up with your primary care physician to re-evaluate your pain and discomfort, monitor your INR and manage your pain and discomfort. 6. You need to follow-up with your primary care physician to monitor your INR and hav an US of your legs.The coumadin and Lovenox will treat any blood clot in your body, in your legs and chest. Prescriptions: New hydrocodone-acetaminophen [[address]] 5-325 mg tablet 1 tab PO Q4-6H PRN (Reason: pain) Qty: 14 RF: 0 No Action (DME) Diatrue Plus Test Strip strip See Dose Instructions .ROUTE .MEDSUPPLY Qty: 50 RF: 12 (DME) blood-glucose meter [Diatrue Plus Blood Glucose Met] misc See Dose Instructions .ROUTE .MEDSUPPLY Qty: 1 RF: 0 (DME) lancets [Easy Touch Twist Lancets] 33 gauge misc See Dose Instructions .ROUTE .MEDSUPPLY Qty: 100 RF: 3 morphine 15 mg tablet extended release 15 mg PO Q8H RF: 0 ibuprofen 800 mg tablet 800 mg PO TID RF: 0 (DME) TENS units device See Rx Instructions .ROUTE .MEDSUPPLY Qty: 1 RF: 0 metoprolol tartrate 100 mg tablet 150 mg PO BID Qty: 270 RF: 2 omeprazole 20 mg capsule,delayed release(DR/EC) 20 mg PO BID Qty: 180 RF: 1 terazosin 5 mg capsule 10 mg PO BEDTIME RF: 0 potassium chloride 20 mEq tablet extended release 20 meq PO DAILY RF: 0 levothyroxine 50 mcg tablet 50 mcg PO DAILY Qty: 90 RF: 0 duloxetine 30 mg capsule,delayed release(DR/EC) 90 mg PO DAILY Qty: 90 RF: 5 pregabalin 150 mg capsule 150 mg PO BID Qty: 60 RF: 3 cyclobenzaprine 10 mg tablet 10 mg PO BID RF: 0 acetaminophen [Tylenol Extra Strength] 500 mg tablet 1,000 mg PO TID RF: 0 Narcan 4 mg/actuation spray,non-aerosol 1 dose intranasal .ONCE PRN (Reason: Opiate Reversal) RF: 0 fluticasone propion-salmeterol [Advair Diskus] 100-50 mcg/dose blister with device 1 puff INHALATION BID RF: 0 Brovana 15 mcg/2 mL solution for nebulization 2 ml INHALATION BID RF: 0 oxycodone 15 mg tablet 10 mg PO Q6-8H MDD 1 PRN (Reason: PAIN) RF: 0 albuterol sulfate 90 mcg/actuation HFA aerosol inhaler 2 puff INHALATION Q4-6H PRN (Reason: shortness of breath or wheezing) Qty: 8.5 RF: 0 amitriptyline 25 mg tablet 25 mg PO QPM RF: 0 aripiprazole [Abilify] 5 mg tablet 5 mg PO QPM RF: 0 magnesium 250 mg Tablet 500 mg PO DAILY RF: 0
[2019-09-21 10:08] VITALS: BP 121/57; PULSE 94; RESP 20; TEMP 36.8; O2SAT 94
[2019-09-21 10:12] LABS: Add Manual Diff / Slide Review NO; Basophils Absolute Auto 0 /uL (0-100); Basophils Percent Auto 0.8 % (0-2); Eosinophils Absolute Auto 200 /uL (0-450); Eosinophils Percent Auto 3.1 % (2-4); Hematocrit 30.2 % (36-46); Hemoglobin 9.6 g/dL (12.0-16.0); Lymphocytes Absolute Auto 1000 /uL (1100-4500); Lymphocytes Percent Auto 17.5 % (25-40); Mean Corpuscular HGB Conc 31.9 % (30-36); Mean Corpuscular Hemoglobin 24.8 PG (26-34); Mean Corpuscular Volume 77.6 fL (80-100); Monocytes Absolute Auto 600 /uL (0-900); Neutrophils Absolute Auto 4100 /uL (1500-7000); Neutrophils Percent Auto 68.6 % (50-75); Platelet Count 192 X10^3/uL (150-400); Red Blood Cell Count 3.89 X10^6/uL (4.0-5.2); Red Cell Distribution Width 17.4 % (11.6-14.8); White Blood Cell Count 5.9 X10^3/uL (4.5-11.0)
[2019-09-21 10:19] LABS: Prothrombin Time 11.4 SECONDS (10.1-12.7)
[2019-09-21 10:22] LABS: PTT Partial Thromboplastin Tim 28 SECONDS (26.4-36.2)
[2019-09-21 10:25] LABS: Alanine Aminotransferase 18 IU/L (<35); Albumin 3.9 g/dL (3.5-5.0); Albumin Globulin Ratio 1.1 (1.0-2.8); Alkaline Phosphatase 100 U/L (38-126); Aspartate Aminotransferase 30 IU/L (14-36); BUN Creatinine Ratio 13.7 (6-22); Bilirubin Total 0.3 mg/dL (0.2-1.3); Blood Urea Nitrogen 7 mg/dL (7-17); Calcium 9.3 mg/dL (8.4-10.2); Carbon Dioxide 31 mmol/L (22-32); Chloride 102 mmol/L (98-107); Creatine Kinase 250 U/L (30-135); Estimated Glomerular Filt Rate > 60.0 mL/min (>60); Globulin 3.4 g/dL (1.7-4.1); Glucose 140 mg/dL (70-100); HEMOLYSIS < 15 (0-50); Lipase 11 U/L (23-300); Potassium 3.8 mmol/L (3.4-5.1); Sodium 139 mmol/L (137-145); Total Protein 7.3 g/dL (6.3-8.2)
[2019-09-21 10:34] LABS: NT-proBNP (BNP-Adult 18+) 155 pg/mL (<125)
[2019-09-21 10:37] LABS: Troponin I < 0.012 ng/mL (0.01-0.034)
[2019-09-21 10:41] LABS: CKMB % Relative Index 1.2 % (1.5-5.0)
[2019-09-21] MEDS: ONDANSETRON 4 MG/2 ML INJ IV (10:54)
[2019-09-21] MEDS: KETOROLAC 60 MG/2 ML VIAL 30 MG IV (10:54)
[2019-09-21 11:09] VITALS: BP 111/55; PULSE 91; RESP 24; O2SAT 87
[2019-09-21 11:30] VITALS: BP 106/60; PULSE 93; O2SAT 96
[2019-09-21 12:30] VITALS: BP 123/79; PULSE 91; O2SAT 96
--- NOTE | 2019-09-21 13:55 | PC.NURSE ---
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 States she is ready to go home. pt had d/c papers ready so I began going over d/c papers with her. when I got to part about a bakers cyst. Pt denies having ultrasound done. Dr. Vann enters room and goes over ultrasound results. Pt denies all of the above. states he thinks she had an ultrasound and maybe she was asleep. Told patient to wait while we figure out what had happened. Pt can be heard with loud voice in the hallway with door closed. I entered room to tell her to hold tight while we figure out what happened. Pt states she isn't waiting, demands to know if her papers have the ultrasound results on them and removes d/c papers from my hand and pushes me. I firmly stated for her to stop as I will call security and I need the signature page. Pt signs page and walks out. Dr. Vann enters room to say it was figured out. Updated him on patient leaving.
--- NOTE | 2019-09-21 14:49 | PC.NURSE ---
Patient told while she was here that a ultrasound wasn't done, but that paperwork would be corrected referring to it. patient was told the treatment will be the same for the blood clots. patient called back requesting an outpatient Ultrasound. explained we don't order those for patients but she is welcome to ask her pcm. patient then said i'm in the parking lot and I want it. i explained to the patient that we will have that corrected and mailed. verified the address on chart, patient spouse states we need that for social security.
== END 2019-09-21 14:08 | disposition home or self-care (01) ==
PROVIDERS: Emergency Provider Emergency Medicine
DX: R07.9 Chest pain, unspecified (principal); E66.01 Morbid (severe) obesity due to excess calories; F11.20 Opioid dependence, uncomplicated; Z87.898 Personal history of other specified conditions; G89.4 Chronic pain syndrome; R06.00 Dyspnea, unspecified; I26.99 Other pulmonary embolism without acute cor pulmonale; R00.0 Tachycardia, unspecified
CPT/HCPCS: 36415; 71045; 80053; 82550; 82553; 83690; 83880; 84484; 85025; 85610; 85730; 93005; 96374; 96375; 99284; J1885; J2405

== ENCOUNTER → 2019-09-26 17:16 | Outpatient (CLI) | payer OTHER, SELFPAY ==
[2019-09-26 19:17] LABS: Hemoglobin A1C% w Est Avg Glu 6.5 % (4.0-6.0)
== END ==
PROVIDERS: PCP Family Medicine; Referring Provider Family Medicine; Visit Provider Family Medicine
DX: R73.03 Prediabetes (principal)
CPT/HCPCS: 36415; 83036

== ENCOUNTER → 2019-10-06 09:53 | Outpatient (CLI) | payer OTHER, SELFPAY ==
--- NOTE | 2019-10-06 | DI.US.S_ITS ---
PROCEDURE: US PERIPH VENOUS UP EXTREM LT INDICATIONS: ACUTE EMBOLISM AND THROMBOSIS OF UNSPECIFIED DEEP TECHNIQUE: Real-time imaging, as well as color and pulse Doppler interrogation, was performed of the left upper extremity deep veins from the inferior neck to the antecubital fossa. COMPARISON: None. FINDINGS: The internal jugular vein, visualized portions of the subclavian vein, axillary, and brachial veins are free of intraluminal thrombus. Where physically possible, the veins are normally compressible. Color and pulse Doppler demonstrate normal intraluminal flow, with expected phasicity and pulsatility. Additional scanning of the cephalic and basilic veins of the superficial system demonstrate normal compressibility, without thrombus. This study is limited by body habitus. IMPRESSION: Negative for deep venous thrombosis. Note: Concordant preliminary findings given by the materials engineering technician upon the completion of the examination to Dr. Lynch at 11:10 AM on October 06, 2019. Dictated by: Rickie Lundberg M.D. on 10/06/2019 at 10:16 Approved by: Rickie Lundberg M.D. on 10/06/2019 at 10:18
== END ==
PROVIDERS: PCP Family Medicine; Referring Provider Family Medicine; Visit Provider Family Medicine
DX: I82.409 Acute embolism and thrombosis of unspecified deep veins of unspecified lower extremity (principal); R09.89 Other specified symptoms and signs involving the circulatory and respiratory systems; M79.602 Pain in left arm
CPT/HCPCS: 93971

== ENCOUNTER → 2019-11-11 10:40 | Outpatient (CLI) | payer OTHER, SELFPAY ==
[2019-11-11 11:14] LABS: INR 1.4 (0.9-1.3); Prothrombin Time 16.2 SECONDS (10.1-12.7)
[2019-11-11 11:19] LABS: Hemoglobin A1C% w Est Avg Glu 6.3 % (4.0-6.0)
== END ==
PROVIDERS: PCP Family Medicine; Referring Provider Family Medicine; Visit Provider Family Medicine
DX: R73.9 Hyperglycemia, unspecified (principal); R58 Hemorrhage, not elsewhere classified; Z79.01 Long term (current) use of anticoagulants
CPT/HCPCS: 36415; 83036; 85610

== ENCOUNTER → 2019-11-24 12:49 | Outpatient (CLI) | payer OTHER, SELFPAY ==
[2019-11-24 14:08] LABS: Add Manual Diff / Slide Review NO; Basophils Absolute Auto 0 /uL (0-100); Basophils Percent Auto 0.5 % (0-2); Eosinophils Absolute Auto 100 /uL (0-450); Eosinophils Percent Auto 1.4 % (2-4); Hematocrit 27.1 % (36-46); Hemoglobin 8.6 g/dL (12.0-16.0); Lymphocytes Absolute Auto 1400 /uL (1100-4500); Lymphocytes Percent Auto 28.3 % (25-40); Mean Corpuscular HGB Conc 31.8 % (30-36); Mean Corpuscular Hemoglobin 23.9 PG (26-34); Monocytes Absolute Auto 600 /uL (0-900); Monocytes Percent Auto 11.8 % (3-14); Neutrophils Absolute Auto 2800 /uL (1500-7000); Platelet Count 249 X10^3/uL (150-400); Red Blood Cell Count 3.61 X10^6/uL (4.0-5.2); Red Cell Distribution Width 17.4 % (11.6-14.8); White Blood Cell Count 4.9 X10^3/uL (4.5-11.0)
[2019-11-24 16:09] LABS: Alanine Aminotransferase 14 IU/L (<35); Albumin Globulin Ratio 1.5 (1.0-2.8); Alkaline Phosphatase 76 U/L (38-126); Aspartate Aminotransferase 26 IU/L (14-36); Bilirubin Total 0.2 mg/dL (0.2-1.3); Bilirubin Unconjugated 0.2 mg/dL (0.0-1.1); Globulin 2.7 g/dL (1.7-4.1); HEMOLYSIS < 15 (0-50); Total Protein 6.7 g/dL (6.3-8.2)
[2019-11-24 16:37] LABS: Hepatitis B Surface Antigen NEGATIVE s/c (NEGATIVE)
[2019-11-24 16:54] LABS: HIV 1 & 2 Ab/Ag 4th Gen Combo NEGATIVE (NEGATIVE); Hep C Virus Ab w/Reflex Quant NEGATIVE s/c (NEGATIVE)
[2019-11-24 17:46] LABS: BUN Creatinine Ratio 19.7 (6-22); Blood Urea Nitrogen 13 mg/dL (7-17); Carbon Dioxide 30 mmol/L (22-32); Chloride 97 mmol/L (98-107); Estimated Glomerular Filt Rate > 60.0 mL/min (>60); Glucose 95 mg/dL (70-100); HEMOLYSIS < 15 (0-50); Potassium 3.9 mmol/L (3.4-5.1); Sodium 135 mmol/L (137-145)
[2019-11-24 19:05] LABS: Free T4, Direct Thyroxine 1.35 ng/dL (0.78-2.19)
[2019-11-24 19:19] LABS: Thyroid Stimulating Hormone 2.38 uIU/mL (0.47-4.68)
[2019-11-25 03:08] LABS: Hepatitis A Antibody IgM Negative (Negative); Hepatitis A Antibody Total Negative (Negative); Hepatitis B Core Antibody Negative (Negative); Hepatitis B Surf AB Quant >1000.0 mIU/mL (Immunity>9.9)
[2019-11-25 05:16] LABS: RPR Screen Non Reactive (Non Reactive)
[2019-11-25 06:09] LABS: Hepatitis B Core IgM Negative (Negative)
== END ==
PROVIDERS: PCP Family Medicine; Referring Provider Nurse Practitioner Occupational Health; Visit Provider Internal Medicine Nephrology
DX: R60.9 Edema, unspecified (principal); F11.20 Opioid dependence, uncomplicated; B19.20 Unspecified viral hepatitis C without hepatic coma
CPT/HCPCS: 36415; 80048; 80076; 84439; 84443; 85025; 86592; 86704; 86705; 86706; 86708; 86709; 86803; 87340; 87389; 87522

== ENCOUNTER → 2019-11-30 13:27 | Outpatient (CLI) | payer OTHER, SELFPAY ==
[2019-11-30 15:56] LABS: HEMOLYSIS < 15 (0-50); Iron 40 ug/dL (37-170)
[2019-11-30 16:06] LABS: Percent Iron Saturation 9 % (15-50); Total Iron Binding Capacity 462 ug/dL (265-497); Transferrin 349 mg/dL (206-381)
[2019-11-30 16:36] LABS: Ferritin 12 ng/mL (6-137)
== END ==
PROVIDERS: PCP Family Medicine; Referring Provider Family Medicine; Visit Provider Family Medicine
DX: N92.0 Excessive and frequent menstruation with regular cycle (principal); N92.6 Irregular menstruation, unspecified
CPT/HCPCS: 36415; 82728; 83540; 83550

== ENCOUNTER 2019-12-02 05:02 | Observation (INO) | payer OTHER, SELFPAY ==
[2019-12-02] VITALS (15 sets, daily range): BP systolic 115–147; BP diastolic 61–80; PULSE 87–119; RESP 12–20; TEMP 36.6–36.9; O2SAT 94–100; BMI 44.3
--- NOTE | 2019-12-02 05:06 | DI.RAD.S_ITS ---
PROCEDURE: XR CHEST 1V INDICATIONS: chest pain TECHNIQUE: One view of the chest was acquired. COMPARISON: [facility], CR, XR CHEST 1V, 09/19/2019, 8:41. [facility], CR, XR CHEST 1V, 09/21/2019, 10:08. FINDINGS: Surgical changes and devices: None. Lungs and pleura: Minimal diffuse interstitial prominence. No focal consolidation. No pleural effusions or pneumothorax. Mediastinum: Mediastinal contours appear normal. Heart size is normal. Bones and chest wall: No suspicious bony lesions. Overlying soft tissues appear unremarkable. IMPRESSION: Stable examination of the chest with mild diffuse interstitial prominence which may represent early pulmonary edema although infectious/inflammatory process not excluded if clinically appropriate. No focal consolidation. Dictated by: Jim Magana M.D. on 12/02/2019 at 7:33 Approved by: Jim Magana M.D. on 12/02/2019 at 7:35
--- NOTE | 2019-12-02 05:41 | ED.GENADULT ---
HPI - General Adult General Chief complaint: Dizziness Stated complaint: lightheaded bp low on blood thinners Time Seen by Provider: 12/02/19 05:05 Source: patient and family Mode of arrival: Ambulatory Limitations: no limitations History of Present Illness HPI narrative: Patient here with her . Complains off and on chest pain and lightheadedness. No syncope. At times feels dyspneic with nausea/sweating. Family history of coronary disease. Patient does smoke. Also has a history of DVT and pulmonary embolisms. Patient is on warfarin. Last checked November 23 by family physician office. It was 2.6. Patient has had multiple CT scans of the chest in the past 2 years. As well as ultrasounds of the leg. Most recently September 24, 2019 at 1:[address] scan chest PE protocol which showed no evidence of right heart strain, there was a persistent pulmonary emboli right lung in the upper lobe artery that appeared similar or slightly decreased compared to prior CT no new pulmonary emboli were seen. Patient awoke this morning by , he had noted some blood around her mouth on the pillow. No active bleeding in the mouth at this time. scant amount of blood on the lips and gum line. LMP now Related Data Home Medications Medication Instructions Recorded Confirmed acetaminophen 500 mg tablet 1,000 mg PO TID tab 09/23/18 11/08/19 magnesium 500 mg PO DAILY 06/29/19 11/08/19 potassium chloride 20 mEq 20 meq PO DAILY 07/07/19 11/08/19 tablet,extended release terazosin 5 mg capsule 10 mg PO BEDTIME cap 07/07/19 11/08/19 fluticasone propion-salmeterol 1 puff INHALATION BID 07/11/19 11/08/19 [Advair Diskus] potassium PO BID 10/10/19 11/08/19 Previous Rx's Medication Instructions Recorded blood sugar diagnostic #50 each 12/08/18 blood-glucose meter #1 each 12/08/18 lancets 33 gauge #100 each 12/08/18 TENS units #1 each 02/09/19 omeprazole 20 mg capsule,delayed 20 mg PO BID #180 cap 05/23/19 release albuterol sulfate 2 puff INHALATION Q4-6H PRN #8.5 07/11/19 gram levothyroxine 50 mcg tablet 50 mcg PO DAILY #90 tab 09/06/19 pregabalin 150 mg capsule 150 mg PO BID #60 cap 09/20/19 cyclobenzaprine 10 mg tablet 10 mg PO BID #60 tab 09/29/19 warfarin 5 mg tablet 10 mg PO DAILY #180 tab 10/06/19 Compressioin Stockings #1 ea 10/13/19 furosemide 40 mg tablet See Rx Instructions PO DAILY #105 10/21/19 tab aripiprazole 5 mg tablet 5 mg PO QPM #90 tab 10/31/19 duloxetine 60 mg capsule,delayed 120 mg PO DAILY #60 cap 11/08/19 release metoprolol tartrate 25 mg tablet 25 mg PO BID #180 tab 11/30/19 Allergies Allergy/AdvReac Type Severity Reaction Status Date / Time carisoprodol [CARISOPRODOL] AdvReac Severe urinary Verified 11/08/19 13:27 retention fosphenytoin AdvReac Intermediate ITCHING Verified 11/08/19 13:27 Review of Systems Review of Systems Narrative: GENERAL: Denies chills, fatigue, malaise, fever, sweats. HEENT: Denies sinus pain, ear pain, sore throat, difficulty swallowing, dizziness. RESPIRATORY: Denies cough, wheezing, hemoptysis, sputum. Complains of dyspnea CARDIOVASCULAR: Denies palpitations, orthopnea, edema, complains of chest pain GASTROINTESTINAL: Complains of nausea, denies vomiting, abdominal pain, diarrhea, constipation, melena. : Denies dysuria, frequency, incontinence, hematuria, urinary retention. MUSCULOSKELETAL: denies weakness, joint pain, or bony pain SKIN: Denies rash, skin lesions, or other NEUROLOGIC: Denies weakness, headache, numbness, change in speech, confusion, seizures, incoordination. PSYCHIATRIC: No concerning psychosocial issues. ROS Unobtainable: All systems reviewed & are unremarkable except as noted in HPI and below Patient History Medical History Acetaminophen overdose of undetermined intent (Resolved 12/2015) Alcoholism (Acute) Asthma (Chronic) Cubital tunnel syndrome (Chronic) Depression (Chronic 02/08/14) DM type 2 (diabetes mellitus, type 2) (Acute) DVT (deep venous thrombosis) (Acute) Essential hypertension (Chronic) Fibromyalgia (Chronic 03/02/15) Intraoperative cardiac arrest during non-cardiac surgery (Resolved 11/2013) 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 (Chronic) Morbid obesity (Chronic) Narcotic habituation, continuous (Acute) Obstipation (Inactive) LYLA (obstructive sleep apnea) (Chronic) Ovarian cyst (Chronic) Plantar fasciitis (Chronic) Psychogenic nonepileptic seizure (Acute) Pulmonary embolism (Acute) Status post laminectomy (Inactive 12/14/15) Suicide attempt (Resolved) Tylenol overdose (Resolved) Urinary retention (Acute) Surgical History History of carpal tunnel repair (Resolved 10/30/14) S/P epidural steroid injection (Resolved 11/2013) Status post dilation and curettage (Resolved 2008) Status post laminectomy (Resolved 09/2016) Family History Grandfather Diabetes mellitus Family/Other Pancreatic cancer Social History Smoking Status: Current every day smoker Smoking Status: Current every day smoker alcohol intake frequency: a few times a week Substance Use Type: does not use Exam Narrative Exam Narrative: GENERAL: patient appears stated age. Well-nourished, well-developed patient, in no distress, not toxic HEAD: Atraumatic. Normocephalic. EYES: Pupils equal round and reactive. Extraocular motions intact. No scleral icterus. No injection or drainage. ENT: Nose without bleeding, purulent drainage. Throat without erythema, tonsillar hypertrophy or exudate. Airway patent. NECK: Trachea midline. Non tender CARDIOVASCULAR: Regular rate and rhythm without murmurs, gallops, or rubs. RESPIRATORY: Clear to auscultation. Breath sounds equal bilaterally. No wheezes, rales, or rhonchi. GASTROINTESTINAL: Abdomen soft, non-tender, nondistended. EXTREMITIES: No edema or joint tenderness. BACK: Nontender without deformity or crepitance. No flank tenderness. NEURO: AOx3. SKIN: No rash or erythema of visible areas Initial Vital Signs Initial Vital Signs: Vital Signs Pulse Rate 103 H 12/02/19 05:09 Blood Pressure 122/64 12/02/19 05:09 Pulse Oximetry 96 12/02/19 05:09 Course Course Course Narrative: HSV free at this time. No complaints. No dizziness. Decision to Admit Date: 12/02/19 Decision to Admit time: 07:32 Orders Ordered: ED Orders 12/02/19 05:06 XR chest 1V Stat EKG-12 Lead Stat 12/02/19 06:10 Complete Blood Count AUTO DIFF Stat Comprehensive Metabolic Panel Stat Lipase Stat Partial Thromboplastin Time Stat Test Serum,Qual Stat Prothrombin Time INR Stat Troponin & CK Cardiac Panel Stat Sodium Chloride (Normal Saline 0.9%) 1,000 mls @ 150 mls/hr IV CONT KRISTIN Last Admin: 12/02/19 06:01 Dose: 150 mls/hr Documented by: STEPHANIE Discontinued Medications Aspirin (Aspirin Chew) 324 mg PO NOW ONE Stop: 12/02/19 06:47 Last Admin: 12/02/19 06:56 Dose: 324 mg Documented by: STEPHANIE Nitroglycerin (Nitro-Bid) 1 inch TOP NOW ONE Stop: 12/02/19 06:47 Reevaluation(s) Reevaluation #1: No chest pain at this time. No complaints. Patient agrees for admission here. Time: 07:32 Consultations Consultation #1: Spoke with Dr. Walsh, cardiology, since patient had treadmill stress test last year, would be good to have a nuclear med stress test this time. Can not keep patient here Time: 07:33 Consultation #2: Spoke with hospitalist Dr. brody will admit Time: 07:33 Vital Signs Vital signs: Vital Signs - 8 hr 12/02/19 05:09 12/02/19 05:12 12/02/19 05:30 Temperature 98.4 F Pulse Rate 103 H 102 H 90 Respiratory Rate 20 Blood Pressure 122/64 122/64 126/68 Pulse Oximetry 96 97 98 12/02/19 06:00 12/02/19 06:30 12/02/19 06:45 Temperature Pulse Rate 87 89 96 H Respiratory Rate 14 17 18 Blood Pressure 116/61 116/61 Pulse Oximetry 94 99 Medical Decision Making Lab Data Result diagrams: 12/02/19 06:10 12/02/19 06:10 Labs: Lab Results 12/02/19 12/02/19 12/02/19 Range/Units 06:10 06:10 06:10 WBC 4.6 (4.5-11.0) X10^3/uL RBC 3.95 L (4.0-5.2) X10^6/uL Hgb 9.1 L (12.0-16.0) g/dL Hct 29.5 L (36-46) % MCV 74.9 L (80-100) fL MCH 23.0 L (26-34) PG MCHC 30.7 (30-36) % RDW 17.5 H (11.6-14.8) % Plt Count 221 (150-400) X10^3/uL Neut % (Auto) 70.4 (50-75) % Lymph % (Auto) 17.5 L (25-40) % [place] % (Auto) 10.0 (3-14) % Eos % (Auto) 1.3 L (2-4) % Baso % (Auto) 0.8 (0-2) % Neut # (Auto) 3200 (5261-9591) /uL Lymph # (Auto) 800 L (6598-8510) /uL [place] # (Auto) 500 (0-900) /uL Eos # (Auto) 100 (0-450) /uL Baso # (Auto) 0 (0-100) /uL PT 31.7 H (10.1-12.7) SECONDS INR 2.8 H (0.9-1.3) APTT 43 H D (26.4-36.2) SECONDS Sodium 140 (137-145) mmol/L Potassium 3.7 (3.4-5.1) mmol/L Chloride 101 (98-107) mmol/L Carbon Dioxide 34 H (22-32) mmol/L BUN 10 (7-17) mg/dL Creatinine 0.58 (0.52-1.04) mg/dL Estimated GFR > 60.0 (>60) mL/min BUN/Creatinine Ratio 17.2 (6-22) Glucose 127 H (70-100) mg/dL Calcium 9.1 (8.4-10.2) mg/dL Total Bilirubin 0.4 (0.2-1.3) mg/dL AST 30 (14-36) IU/L ALT 17 (<35) IU/L Alkaline Phosphatase 89 (38-126) U/L Total Creatine Kinase 199 H (30-135) U/L CK-MB (CK-2) 2.63 H (<2.37) ng/mL CK-MB (CK-2) Rel Index 1.3 L (1.5-5.0) % Troponin I < 0.012 (0.01-0.034) ng/mL Total Protein 7.7 (6.3-8.2) g/dL Albumin 4.4 (3.5-5.0) g/dL Globulin 3.3 (1.7-4.1) g/dL Albumin/Globulin Ratio 1.3 (1.0-2.8) Lipase 19 L (23-300) U/L Serum , Qual (Negative) 12/02/19 Range/Units 06:10 WBC (4.5-11.0) X10^3/uL RBC (4.0-5.2) X10^6/uL Hgb (12.0-16.0) g/dL Hct (36-46) % MCV (80-100) fL MCH (26-34) PG MCHC (30-36) % RDW (11.6-14.8) % Plt Count (150-400) X10^3/uL Neut % (Auto) (50-75) % Lymph % (Auto) (25-40) % [place] % (Auto) (3-14) % Eos % (Auto) (2-4) % Baso % (Auto) (0-2) % Neut # (Auto) (1502-6919) /uL Lymph # (Auto) (1459-0297) /uL [place] # (Auto) (0-900) /uL Eos # (Auto) (0-450) /uL Baso # (Auto) (0-100) /uL PT (10.1-12.7) SECONDS INR (0.9-1.3) APTT (26.4-36.2) SECONDS Sodium (137-145) mmol/L Potassium (3.4-5.1) mmol/L Chloride (98-107) mmol/L Carbon Dioxide (22-32) mmol/L BUN (7-17) mg/dL Creatinine (0.52-1.04) mg/dL Estimated GFR (>60) mL/min BUN/Creatinine Ratio (6-22) Glucose (70-100) mg/dL Calcium (8.4-10.2) mg/dL Total Bilirubin (0.2-1.3) mg/dL AST (14-36) IU/L ALT (<35) IU/L Alkaline Phosphatase (38-126) U/L Total Creatine Kinase (30-135) U/L CK-MB (CK-2) (<2.37) ng/mL CK-MB (CK-2) Rel Index (1.5-5.0) % Troponin I (0.01-0.034) ng/mL Total Protein (6.3-8.2) g/dL Albumin (3.5-5.0) g/dL Globulin (1.7-4.1) g/dL Albumin/Globulin Ratio (1.0-2.8) Lipase (23-300) U/L Serum , Qual Negative (Negative) Imaging Data Chest x-ray: Attestation: I personally reviewed and interpreted this imaging study as follows: My Impression: No acute process ECG Data Attestation: I personally reviewed and interpreted this ECG as follows: Prior ECG tracings: available for review Interpretation: EKG and 5:09 a.m. normal sinus rhythm no ST elevation or depression rate 97, right bundle-branch block. EKG unchanged from September 21, 2019 at 9:36 a.m. MDM Narrative Additional Information: Patient had stress test 1 year ago at [facility] for medical clearance for spinal fusion. It was the treadmill. Spoke with cardiology and patient could have nuclear stress test today. No CT scan PE protocol. Patient states this feels different from her pulmonary embolism discomfort. Patient is therapeutic with warfarin Discharge Plan Departure Patient Disposition: Admitted as Observation Clinical Impression: Chest pain Qualifiers: Chest pain type: unspecified Qualified Code(s): R07.9 - Chest pain, unspecified Referrals: Alejandra Lynch MD [Primary Care Provider] -
[2019-12-02] MEDS: SODIUM CHLORIDE 0.9% 1,000 ML 150 ML IV (06:01)
[2019-12-02 06:20] LABS: Add Manual Diff / Slide Review NO; Basophils Absolute Auto 0 /uL (0-100); Basophils Percent Auto 0.8 % (0-2); Eosinophils Absolute Auto 100 /uL (0-450); Eosinophils Percent Auto 1.3 % (2-4); Hematocrit 29.5 % (36-46); Hemoglobin 9.1 g/dL (12.0-16.0); Lymphocytes Absolute Auto 800 /uL (1100-4500); Lymphocytes Percent Auto 17.5 % (25-40); Mean Corpuscular HGB Conc 30.7 % (30-36); Mean Corpuscular Volume 74.9 fL (80-100); Monocytes Absolute Auto 500 /uL (0-900); Neutrophils Absolute Auto 3200 /uL (1500-7000); Neutrophils Percent Auto 70.4 % (50-75); Platelet Count 221 X10^3/uL (150-400); Red Blood Cell Count 3.95 X10^6/uL (4.0-5.2); Red Cell Distribution Width 17.5 % (11.6-14.8); White Blood Cell Count 4.6 X10^3/uL (4.5-11.0)
[2019-12-02 06:27] LABS: INR 2.8 (0.9-1.3); Prothrombin Time 31.7 SECONDS (10.1-12.7)
[2019-12-02 06:29] LABS: PTT Partial Thromboplastin Tim 43 SECONDS (26.4-36.2)
[2019-12-02 06:30] LABS: Alanine Aminotransferase 17 IU/L (<35); Albumin 4.4 g/dL (3.5-5.0); Albumin Globulin Ratio 1.3 (1.0-2.8); Alkaline Phosphatase 89 U/L (38-126); Aspartate Aminotransferase 30 IU/L (14-36); BUN Creatinine Ratio 17.2 (6-22); Bilirubin Total 0.4 mg/dL (0.2-1.3); Blood Urea Nitrogen 10 mg/dL (7-17); Calcium 9.1 mg/dL (8.4-10.2); Carbon Dioxide 34 mmol/L (22-32); Chloride 101 mmol/L (98-107); Creatine Kinase 199 U/L (30-135); Estimated Glomerular Filt Rate > 60.0 mL/min (>60); Globulin 3.3 g/dL (1.7-4.1); Glucose 127 mg/dL (70-100); HEMOLYSIS < 15 (0-50); Lipase 19 U/L (23-300); Potassium 3.7 mmol/L (3.4-5.1); Sodium 140 mmol/L (137-145); Total Protein 7.7 g/dL (6.3-8.2)
[2019-12-02 06:36] LABS: Pregnancy Test Serum,Qual Negative (Negative)
[2019-12-02 06:41] LABS: Troponin I < 0.012 ng/mL (0.01-0.034)
[2019-12-02 06:45] LABS: CKMB % Relative Index 1.3 % (1.5-5.0); Creatine Kinase MB 2.63 ng/mL (<2.37)
[2019-12-02] MEDS: ASPIRIN 81 MG CHEW TAB 324 MG PO (06:56)
[2019-12-02] MEDS: NITROGLYCERIN OINT 1 INCH/GM OINT...G. TOP (10:01)
[2019-12-02 11:28] LABS: COVID19 -Nasal RAPID Negative (Negative)
--- NOTE | 2019-12-02 13:07 | PC.NURSE ---
Addendum entered by Cherri Lim R.N. 12/02/19 14:43: Patient denies chest pain since being admitted at around 1030. She is independent in her room. Knows to call and use her light if she needs to get up. Patient is NPO for possible stress test today. Original Note: 1030- Patient arrived to floor, room 219. She denies any chest pain, is able to ambulate with 1 person assist. Med Reconciliation done in the computer. Patient does have to get her Zubsolv that she takes at home, as it is is a NF drug, is aware of this by note. She has an iv to her l. hand that is wrapped with coban and an iv to l.ac that is infusing NS at 150cc/hr. is in the room sleeping. He will go home and get med after he talks to the DrDonna to see what is happening.
--- NOTE | 2019-12-02 14:52 | P.HP_ITS ---
History of Present Illness History of Present Illness Date Patient Seen: 12/02/19 Chief complaint: lightheaded bp low on blood thinners Narrative: The patient is a 39-year-old female with a history of asthma, type 2 diabetes, history of DVT PE, fibromyalgia, chronic back pain, and morbid o besity. Patient states her blood pressure has been somewhat labile. Blood pressure has been lower than normal and the been adjusting medications. Last night she developed some substernal chest pain. There was no radiation of the pain. However she did have associated shortness of breath. The pain was 5/10 in intensity at its maximum. It was intermittent lasting for about a minute and recurring throughout the night. She notes that upon arrival to the emergency room when she received nitro that her pain got better. She now complains of a headache. Patient has no history of myocardial infarction however she does have strong history of multiple factors that a cardiac risk factors. As such she is admitted to the hospital at this time for workup and evaluation of possible acute coronary syndrome. Patient was evaluated in the emergency room. Her EKG was unremarkable. Her initial troponins were negative. The patient underwent a stress testing. The initial portion was negative. However there was some attenuation along the breast area and recommendations from cardiology is that she have a resting study scheduled for Thursday. Patient History Medical History Acetaminophen overdose of undetermined intent (Resolved 12/2015) Alcoholism (Acute) Asthma (Chronic) Cubital tunnel syndrome (Chronic) Depression (Chronic 02/08/14) DM type 2 (diabetes mellitus, type 2) (Acute) DVT (deep venous thrombosis) (Acute) Essential hypertension (Chronic) Fibromyalgia (Chronic 03/02/15) Intraoperative cardiac arrest during non-cardiac surgery (Resolved 11/2013) 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 (Chronic) Morbid obesity (Chronic) Narcotic habituation, continuous (Acute) Obstipation (Inactive) LYLA (obstructive sleep apnea) (Chronic) Ovarian cyst (Chronic) Plantar fasciitis (Chronic) Psychogenic nonepileptic seizure (Acute) Pulmonary embolism (Acute) Status post laminectomy (Inactive 12/14/15) Suicide attempt (Resolved) Tylenol overdose (Resolved) Urinary retention (Acute) Surgical History History of carpal tunnel repair (Resolved 10/30/14) S/P epidural steroid injection (Resolved 11/2013) Status post dilation and curettage (Resolved 2008) Status post laminectomy (Resolved 09/2016) Family & Social History Family History Grandfather Diabetes mellitus Family/Other Pancreatic cancer Social History: household members spouse Prior Living Arrangements House Safety & Behavioral: Feels Safe in Current Yes Environment Been Physically Hurt or No Threatened By a Person Suicidal Ideation Description None Suicide Plan Description No Plan Tobacco & Substance use: Tobacco type cigarettes Smoking Status Current every day smoker alcohol intake current alcohol intake frequency a few times a week Substance Use Type does not use Meds Home Medications and Allergies Home Medications Medication Instructions Recorded Confirmed Type acetaminophen 500 mg tablet 1,000 mg PO TID tab 09/23/18 12/02/19 History blood sugar diagnostic #50 each 12/08/18 11/08/19 Rx blood-glucose meter #1 each 12/08/18 11/08/19 Rx lancets 33 gauge #100 each 12/08/18 11/08/19 Rx TENS units #1 each 02/09/19 11/08/19 Rx omeprazole 20 mg capsule,delayed 20 mg PO BID #180 cap 05/23/19 12/02/19 Rx release magnesium 500 mg PO DAILY 06/29/19 12/02/19 History potassium chloride 20 mEq 20 meq PO DAILY 07/07/19 12/02/19 History tablet,extended release terazosin 5 mg capsule 10 mg PO BEDTIME cap 07/07/19 12/02/19 History albuterol sulfate 2 puff INHALATION Q4-6H PRN #8.5 07/11/19 12/02/19 Rx gram fluticasone propion-salmeterol 1 puff INHALATION BID 07/11/19 12/02/19 History [Advair Diskus] levothyroxine 50 mcg tablet 50 mcg PO DAILY #90 tab 09/06/19 12/02/19 Rx pregabalin 150 mg capsule 150 mg PO BID #60 cap 09/20/19 12/02/19 Rx cyclobenzaprine 10 mg tablet 10 mg PO BID #60 tab 09/29/19 12/02/19 Rx Compressioin Stockings #1 ea 10/13/19 11/08/19 Rx aripiprazole 5 mg tablet 5 mg PO QPM #90 tab 10/31/19 12/02/19 Rx duloxetine 60 mg capsule,delayed 120 mg PO DAILY #60 cap 11/08/19 12/02/19 Rx release metoprolol tartrate 25 mg tablet 25 mg PO BID #180 tab 11/30/19 12/02/19 Rx furosemide 60 mg PO QPM 12/02/19 12/02/19 History furosemide 100 mg PO QAM 12/02/19 12/02/19 History warfarin [Coumadin] 5 mg PO Q OTHER DAY 12/02/19 12/02/19 History warfarin [Coumadin] 10 mg PO Q OTHER DAY 12/02/19 12/02/19 History Allergies Allergy/AdvReac Type Severity Reaction Status Date / Time carisoprodol [CARISOPRODOL] AdvReac Severe urinary Verified 11/08/19 13:27 retention fosphenytoin AdvReac Intermediate ITCHING Verified 11/08/19 13:27 Review of Systems Review of Systems ROS: Yes All systems reviewed with the patient and are negative except as otherwise documented Exam Vital Signs (past 8 hours): - 12/02/19 07:00 12/02/19 07:30 12/02/19 08:00 Temperature Pulse Rate 102 H 92 H 92 H Respiratory Rate 18 12 18 Blood Pressure 115/67 122/68 125/61 Pulse Oximetry 98 100 98 12/02/19 08:30 12/02/19 10:30 Temperature 97.8 F Pulse Rate 91 H 96 H Respiratory Rate 15 16 Blood Pressure 133/63 128/79 Pulse Oximetry 95 96 Oxygen Delivery Method Room Air Oxygen Flow Rate 0 Narrative Exam Narrative: Pleasant female resting comfortably in no obvious distress Lungs: Clear to auscultation Cardiac exam: Regular rate and rhythm normal S1-S2 Abdomen: Obese soft nontender nondistended, no hepatosplenomegaly, Extremities: 1+ edema bilaterally Neuro exam: Nonfocal Skin exam no lesions noted Objective Labs Result Diagrams: 12/02/19 06:10 12/02/19 06:10 Labs: Laboratory Results - last 24 hr 12/02/19 12/02/19 12/02/19 06:10 06:10 06:10 WBC 4.6 RBC 3.95 L Hgb 9.1 L Hct 29.5 L MCV 74.9 L MCH 23.0 L MCHC 30.7 RDW 17.5 H Plt Count 221 Neut % (Auto) 70.4 Lymph % (Auto) 17.5 L Spencer % (Auto) 10.0 Eos % (Auto) 1.3 L Baso % (Auto) 0.8 Neut # (Auto) 3200 Lymph # (Auto) 800 L Spencer # (Auto) 500 Eos # (Auto) 100 Baso # (Auto) 0 PT 31.7 H INR 2.8 H APTT 43 H D Sodium 140 Potassium 3.7 Chloride 101 Carbon Dioxide 34 H BUN 10 Creatinine 0.58 Estimated GFR > 60.0 BUN/Creatinine Ratio 17.2 Glucose 127 H Calcium 9.1 Total Bilirubin 0.4 AST 30 ALT 17 Alkaline Phosphatase 89 Total Creatine Kinase 199 H CK-MB (CK-2) 2.63 H CK-MB (CK-2) Rel Index 1.3 L Troponin I < 0.012 Total Protein 7.7 Albumin 4.4 Globulin 3.3 Albumin/Globulin Ratio 1.3 Lipase 19 L Serum , Qual COVID-19 PCR 12/02/19 12/02/19 06:10 10:08 WBC RBC Hgb Hct MCV MCH MCHC RDW Plt Count Neut % (Auto) Lymph % (Auto) Spencer % (Auto) Eos % (Auto) Baso % (Auto) Neut # (Auto) Lymph # (Auto) Spencer # (Auto) Eos # (Auto) Baso # (Auto) PT INR APTT Sodium Potassium Chloride Carbon Dioxide BUN Creatinine Estimated GFR BUN/Creatinine Ratio Glucose Calcium Total Bilirubin AST ALT Alkaline Phosphatase Total Creatine Kinase CK-MB (CK-2) CK-MB (CK-2) Rel Index Troponin I Total Protein Albumin Globulin Albumin/Globulin Ratio Lipase Serum , Qual Negative COVID-19 PCR Negative Assessment & Plan Assessment & Plan narrative: Impression 1. 39-year-old female admitted to the hospital for chest pain -patient has multiple cardiac risk factors -initial troponin negative, EKG negative, 1st portion of stress test unremarkable except for attenuation which may relate represent breast tissue -patient needs a resting stress test which can be done and will be arrange for on Thursday 2. Morbid obesity -recommend all patient nutrition evaluation 3. Chronic pain -continue Suboxone -patient will use her home medication 4. Asthma -will continue her albuterol -continue fluticasone 5. Hypertension -patient's blood pressure is well controlled -will continue metoprolol, and Lasix as previously prescribed 6. GERD -continue proton pump inhibitor 7. History of pulmonary emboli -patient on therapeutic doses of colon -WILL CONTINUE SAME 8. Patient did not receive her usual metoprolol today. She was found to have a heart rate of 150. She received her usual home dose of metoprolol with improvement of her heart rate to about 110. Plan at this time Patient will be discharged home. We will call her at home for follow-up resting stress test scheduled for Thursday. Quality VTE Deep Vein Thrombosis/Pulmonary Embolism Present on Admission: Yes
--- NOTE | 2019-12-02 15:46 | PM.TREADMILL ---
Cardiac Stress Test Report Referral & Results Date Patient Seen: 12/02/19 Time Patient Seen: 15:46 Requesting provider: Adela Hurtado Indication: hypotension Rest ECG: sinus rhythm with RBBB Procedure Note: After Lexiscan injection had minimal dyspnea; no chest pain No significant ST changes on ECG after Lexiscan injection No ectopy No reversal agents needed Impression: Normal Lexiscan stress test Please note: Actual ECG tracings can be found in the PACS system.
[2019-12-02] MEDS: ARIPiprazole 10 MG TABLET 5 MG PO (17:12)
[2019-12-02] MEDS: TERAZOSIN 5 MG CAPSULE 10 MG PO (17:12)
[2019-12-02] MEDS: WARFARIN 5 MG TABLET PO (17:13)
[2019-12-02] MEDS: METOPROLOL ER 25 MG TABLET PO (18:09)
--- NOTE | 2019-12-02 20:57 | PC.NURSE ---
Evening Shift Note- Patient D/C'ed home. Discharge instructions and education reviewed with patoent and signed. IV line removed. Tele removed. Patient dressed and packed up all personal belongings. Patient left via wheelchair to private car at 2054.
--- NOTE | 2019-12-05 14:36 | DI.NM.S_ITS ---
DATE OF SERVICE: 12/02/2019 PROCEDURE: Pharmacological perfusion study. INDICATIONS: Chest pain with underlying diabetes mellitus, hypertension, hyperlipidemia, morbid obesity. RADIOPHARMACEUTICAL: 23.3 millicurie of technetium-99m Myoview intravenous was injected at stress and 26.8 millicurie technetium-99m Myoview intravenous was injected at rest. CARDIAC STRESS: The patient underwent intravenous Lexiscan perfusion study under the supervision of an attending staff using standard intravenous Lexiscan as per protocol. She remained hemodynamically stable. Had minimal dyspnea. No chest pain. Baseline EKG revealed sinus rhythm with RSR-complex in septal leads with partial right bundle branch block, nonspecific ST-T changes. During stress, there were no convincing ischemic changes. No significant arrhythmias seen. RAW DATA: There was significant breast shadow seen. GATED STUDY: Resting LV ejection fraction 73 and stress LV ejection fraction 78%. No obvious wall motion abnormalities. Resting end-diastolic volume 117 mL. No transient ischemic dilatation. TID ratio is 0.79, which is within normal limits. Lung heart ratio 0.42, which is within normal limits. MYOCARDIAL PERFUSION SCAN: Please note, there are no prone images. Stress supine and resting supine images were compared to each other. The resting supine images revealed moderate-size severely decreased perfusion of mid to distal anterior wall extending into the anterior apex. On the stress supine, there was a moderate-size severely decreased perfusion of distal anterior wall with worsening anterior apical and distal septal defect. CONCLUSION: There is a predominantly fixed severely decreased perfusion of distal anterior wall and anteroapical defect. The mid anterior wall defect, which was seen during resting supine appears to be better in the stress supine. However, in the stress supine apical defect got worse with extension to distal anterior septum. The patient has significant breast shadow. No obvious wall motion abnormalities, which goes against the diagnosis of previous transmural myocardial infarction. Most likely we are dealing with shifting breast tissue attenuation artifact. However, one cannot rule out possibility of non- transmural myocardial infarction. However, on EKG, I do not see any significant pathological Q-waves in anterior leads. The patient's weight is 300 pounds. Overall this does not appear to be a high risk study. Correlate clinically. JennyAngelitan - PARAM/mari/catia doc#: [id number]/job#: [id number] dd: 12/05/2019 13:13:00 dt: 12/05/2019 14:25:00 DICTATING MD/COPIES TO: Renea Cuba MD COPIES MNE: CARMELLA;
== END 2019-12-02 20:50 | disposition home or self-care (01) ==
LOC: ED 07:34 → AC 08:05
PROVIDERS: Admitting Provider Internal Medicine; Emergency Provider Emergency Medicine; PCP Family Medicine; Referring Provider Emergency Medicine; Visit Provider Internal Medicine
DX: R07.9 Chest pain, unspecified (principal); R42 Dizziness and giddiness; F17.210 Nicotine dependence, cigarettes, uncomplicated; Z86.711 Personal history of pulmonary embolism; Z86.718 Personal history of other venous thrombosis and embolism; Z79.01 Long term (current) use of anticoagulants; J45.909 Unspecified asthma, uncomplicated; E11.9 Type 2 diabetes mellitus without complications; E66.01 Morbid (severe) obesity due to excess calories; M79.7 Fibromyalgia; K21.9 Gastro-esophageal reflux disease without esophagitis; I10 Essential (primary) hypertension; G89.29 Other chronic pain; Z11.59 Encounter for screening for other viral diseases
CPT/HCPCS: 36415; 71045; 78452; 80053; 82550; 82553; 82962; 83690; 84484; 84703; 85025; 85610; 85730; 87635; 93005; 93010; 93017; 99284; G0378; A9502; J2785

== ENCOUNTER → 2019-12-13 12:40 | Outpatient (CLI) | payer OTHER, SELFPAY ==
[2019-12-02 14:02] VITALS: BMI 44.3
--- NOTE | 2019-12-13 14:53 | DIET.PN ---
Diabetes Intake: Initial Assessment Assess: Ms. Alvarado is a 39 YOF referred for type 2 diabetes. She has a PMHx significant for HTN, renal dz, pulmonary embolism, spinal fusion, depression, and obesity. She report recent diagnosis of diabetes in the last year since her spinal fusion. She endorses the use of Lasix for severe LE swelling and Warfarin. Her joins her today as he is the primary cook. He states she is limited in what she can eat as she follows a ?warfarin diet? as well as modified Keto. Admits she often only eats one meal per day and drinks coffee or diet soda during the day. She has not been physically active since her fusion, but does enjoy walking and gardening. She monitors her FBG daily. She currently smokes 10 cigarettes/day and drinks 3-4 x/wk. Labs: Per pt report: a1c: 6.5 Microalbu/Cr: 385.8 PT: 31.7 INR: 2.4 Meds: Warfarin; Lasix Diet: per 24 hr recall: B: coffee w/ SF creamer L: diet soda D: beans, corn, caulifl, mushrooms, peppers, onions, zuch spaghetti, beef, pork Avoid: green veggies, poultry, vit K foods Wt: 292lb Ht: 65in BMI: 48.6 BP: DX: Altered nutrition related laboratory values related to impaired glucose metabolism, lack of previous exposure to nutrition information as evidenced by pt report, diagnosis of diabetes, previous diet high in refined carbohydrates. Intervention: 1. Completed intake assessment. Discussed barriers to care. 2. Discussed pathophysiology of diabetes. Reviewed A1c and its correlation to blood glucose numbers. Discussed recommended BG ranges. 3. Discussed importance of self-monitoring, how often, and when to check. 4. Reviewed hyper/hypoglycemia and treatment. 5. Reviewed safe disposal of equipment (strip/lancets/insulin needles). 6. Created SMART goals for pt self-care and success. 7. Discussed program curriculum outline and class needs based on individual goals. SMART Goals: 1. Pt would like to lose 15lbs (5%) in the next 4 mo through changes in eating habits and increasing exercise to daily. Monitor/Evaluate: Pt will attend individual appts as indicated by referral. Healthy Eating Class 1 scheduled for Jan 03.
== END ==
PROVIDERS: PCP Family Medicine; Referring Provider Family Medicine; Visit Provider Family Medicine
DX: E11.9 Type 2 diabetes mellitus without complications (principal); I10 Essential (primary) hypertension; E66.9 Obesity, unspecified; Z68.42 Body mass index [BMI] 45.0-49.9, adult; Z71.3 Dietary counseling and surveillance; Z98.1 Arthrodesis status; Z79.01 Long term (current) use of anticoagulants; F17.200 Nicotine dependence, unspecified, uncomplicated
CPT/HCPCS: G0108

== ENCOUNTER → 2019-12-15 15:10 | Outpatient (CLI) | payer OTHER, SELFPAY ==
[2019-12-02 14:02] VITALS: BMI 44.3
[2019-12-15 15:48] LABS: BUN Creatinine Ratio 21.4 (6-22); Blood Urea Nitrogen 12 mg/dL (7-17); Calcium 8.9 mg/dL (8.4-10.2); Carbon Dioxide 34 mmol/L (22-32); Chloride 98 mmol/L (98-107); Estimated Glomerular Filt Rate > 60.0 mL/min (>60); Glucose 102 mg/dL (70-100); HEMOLYSIS < 15 (0-50); Potassium 3.7 mmol/L (3.4-5.1); Sodium 137 mmol/L (137-145)
[2019-12-15 15:52] LABS: Rheumatoid Factor < 8.6 IU/mL (<12.0)
[2019-12-16 21:10] LABS: ANA Screen, IFA Negative (.)
== END ==
PROVIDERS: PCP Family Medicine; Referring Provider Internal Medicine Cardiovascular Disease; Visit Provider Internal Medicine Cardiovascular Disease
DX: I10 Essential (primary) hypertension (principal); R60.9 Edema, unspecified
CPT/HCPCS: 36415; 80048; 86038; 86430

== ENCOUNTER 2019-12-29 13:14 | Observation (INO) | payer OTHER, SELFPAY ==
[2019-12-02 14:02] VITALS: BMI 44.3
[2019-12-29] VITALS (21 sets, daily range): BP systolic 87–146; BP diastolic 52–71; PULSE 79–101; RESP 13–34; TEMP 36.2–36.8; O2SAT 90–98; BMI 48.2
--- NOTE | 2019-12-29 13:36 | DI.RAD.S_ITS ---
PROCEDURE: XR CHEST 1V INDICATIONS: WHeezing TECHNIQUE: One view of the chest was acquired. COMPARISON: [facility], CR, XR CHEST 1V, 12/02/2019, 5:09. [facility], CR, XR CHEST 1V, 09/21/2019, 10:08. FINDINGS: Surgical changes and devices: None. Lungs and pleura: Lungs are abnormal with a generalized pattern of mild pulmonary edema.. No pleural effusions or pneumothorax. Mediastinum: Mediastinal contours appear normal. Heart size is at the upper limits of normal but not enlarged and no pleural effusion is associated with the alveolar edema pattern present. Bones and chest wall: No suspicious bony lesions. Overlying soft tissues appear unremarkable. IMPRESSION: Alveolar edema pattern, possibly cardiogenic in origin and a patchy distribution suggestive of pneumonia is not seen. Is similar pattern was present in August of this year and also early November. Chronic CHF episodes can produce interstitial prominence over time within the lung parenchyma. Dictated by: Beto Apple M.D. on 12/29/2019 at 14:07 Approved by: Beto Apple M.D. on 12/29/2019 at 14:08
[2019-12-29] MEDS: SODIUM CHLORIDE 0.9% 1,000 ML 1000 ML IV (13:47)
[2019-12-29] MEDS: ALBUTEROL HFA PREPACK 1 BOX MISC (13:47)
[2019-12-29 14:12] LABS: Add Manual Diff / Slide Review NO; Basophils Absolute Auto 0 /uL (0-100); Basophils Percent Auto 0.5 % (0-2); Eosinophils Absolute Auto 100 /uL (0-450); Eosinophils Percent Auto 2.2 % (2-4); Hematocrit 25.7 % (36-46); Hemoglobin 7.8 g/dL (12.0-16.0); Lymphocytes Absolute Auto 900 /uL (1100-4500); Mean Corpuscular HGB Conc 30.3 % (30-36); Mean Corpuscular Hemoglobin 21.8 PG (26-34); Monocytes Absolute Auto 500 /uL (0-900); Monocytes Percent Auto 9.9 % (3-14); Neutrophils Absolute Auto 3300 /uL (1500-7000); Neutrophils Percent Auto 68.4 % (50-75); Platelet Count 222 X10^3/uL (150-400); Red Blood Cell Count 3.56 X10^6/uL (4.0-5.2); Red Cell Distribution Width 18.2 % (11.6-14.8); White Blood Cell Count 4.8 X10^3/uL (4.5-11.0)
--- NOTE | 2019-12-29 14:12 | ED.DIZZY ---
HPI - Dizziness <Rachelle WynneJENNIFER - Last Filed: 12/29/19 20:28> General Chief Complaint: Syncope Stated Complaint: FAINTING SPELLS Time Seen by Provider: 12/29/19 13:17 History of Present Illness HPI Narrative: 39yo female with a history of DM II, PE, and asthma presents to the emergency department for feelings of near syncope for the past few days. She feels lightheaded at random times such as standing and doing dishes or lying in bed. Patient states she feels like she falls asleep really easily. She states yesterday she fell asleep on the toilet for 2 hours. Patient states she has occasional nausea with episodes. Patient reports she was exposed to a provider at the [facility] who tested positive for COVID-19 approximately a week ago. She denies any abrupt syncopal episodes, abdominal pain, nausea, vomiting, diarrhea, chest pain, vision changes, cough, fevers, or other concerns. She denies any blood in stool. She states she is currently menstruating. She states she uses Advair for her asthma, states that she has had a few wheezes today. Patient also reports she was seen in the emergency department a few months ago for dehydration. Reports decreased appetite but has been drinking fluids because she has been feeling dizzy. Related Data Home Medications Medication Instructions Recorded Confirmed acetaminophen 500 mg tablet 2,000 mg PO BID tab 09/23/18 12/29/19 magnesium 500 mg PO DAILY 06/29/19 12/29/19 potassium chloride 20 mEq 20 meq PO DAILY 07/07/19 12/29/19 tablet,extended release terazosin 5 mg capsule 5 mg PO BEDTIME cap 07/07/19 12/29/19 fluticasone propion-salmeterol 1 puff INHALATION BID 07/11/19 12/29/19 [Advair Diskus] furosemide 60 mg PO QPM 12/02/19 12/29/19 furosemide 100 mg PO QAM 12/02/19 12/29/19 warfarin [Coumadin] 5 mg PO Q OTHER DAY 12/02/19 12/29/19 warfarin [Coumadin] 10 mg PO Q OTHER DAY 12/02/19 12/29/19 aripiprazole [Abilify] 5 mg PO BID 12/29/19 12/29/19 buprenorphine-naloxone [Zubsolv] 1 tab SUBLINGUAL BID 12/29/19 12/29/19 cyclobenzaprine 10 mg PO BID 12/29/19 12/29/19 duloxetine 90 mg PO DAILY 12/29/19 12/29/19 levothyroxine 50 mcg PO BEDTIME 12/29/19 12/29/19 metoprolol tartrate 12.5 mg PO BID 12/29/19 12/29/19 Previous Rx's Medication Instructions Recorded blood sugar diagnostic #50 each 12/08/18 blood-glucose meter #1 each 12/08/18 lancets 33 gauge #100 each 12/08/18 TENS units #1 each 02/09/19 omeprazole 20 mg capsule,delayed 20 mg PO BID #180 cap 05/23/19 release albuterol sulfate 2 puff INHALATION Q4-6H PRN #8.5 07/11/19 gram pregabalin 150 mg capsule 150 mg PO BID #60 cap 09/20/19 Compressioin Stockings #1 ea 10/13/19 ferrous sulfate [iron] 325 mg PO DAILY #14 tab 12/29/19 Allergies Allergy/AdvReac Type Severity Reaction Status Date / Time carisoprodol [CARISOPRODOL] AdvReac Severe urinary Verified 11/08/19 13:27 retention fosphenytoin AdvReac Intermediate ITCHING Verified 11/08/19 13:27 Review of Systems <JENNIFER Putnam - Last Filed: 12/29/19 20:28> Review of Systems Narrative: REVIEW OF SYSTEMS: GENERAL: Denies fever or chills. HENT: No head trauma. EYES: No vision changes. CARDIOVASCULAR: Reports dizziness, see HPI. RESPIRATORY: No cough. GASTROINTESTINAL: No nausea, vomiting, diarrhea, or constipation. GENITOURINARY: No flank pain. MUSCULOSKELETAL: No pain. INTEGUMENTARY: No rash, lesions, or pruritus. NEURO: No numbness or tingling. PSYCH: No behavior or mood changes. Patient History <JENNIFER Putnam - Last Filed: 12/29/19 20:28> Medical History Acetaminophen overdose of undetermined intent (Resolved 12/2015) Alcoholism (Acute) Asthma (Chronic) Cubital tunnel syndrome (Chronic) Depression (Chronic 02/08/14) DM type 2 (diabetes mellitus, type 2) (Acute) DVT (deep venous thrombosis) (Acute) Essential hypertension (Chronic) Fibromyalgia (Chronic 03/02/15) Intraoperative cardiac arrest during non-cardiac surgery (Resolved 11/2013) 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 (Chronic) Morbid obesity (Chronic) Narcotic habituation, continuous (Acute) Obstipation (Inactive) LYLA (obstructive sleep apnea) (Chronic) Ovarian cyst (Chronic) Plantar fasciitis (Chronic) Psychogenic nonepileptic seizure (Acute) Pulmonary embolism (Acute) Status post laminectomy (Inactive 12/14/15) Suicide attempt (Resolved) Tylenol overdose (Resolved) Urinary retention (Acute) Surgical History History of carpal tunnel repair (Resolved 10/30/14) S/P epidural steroid injection (Resolved 11/2013) Status post dilation and curettage (Resolved 2008) Status post laminectomy (Resolved 09/2016) Family History Grandfather Diabetes mellitus Family/Other Pancreatic cancer Social History household members: spouse Smoking Status: Current every day smoker alcohol intake: current eating out: rarely or never Type(s) of exercise: normal ROM and activity and sedentary lifestyle Smoking Status: Current every day smoker alcohol intake frequency: a few times a week Substance Use Type: does not use Exam <JENNIFER Putnam - Last Filed: 12/29/19 20:28> Initial Vital Signs Initial Vital Signs: Vital Signs Pulse Rate 99 H 12/29/19 13:23 Respiratory Rate 16 12/29/19 13:23 Pulse Oximetry 97 12/29/19 13:23 PHYSICAL EXAMINATION: GENERAL: Awake. Initially alert, upon serial examinations patient was seen asleep, awoke to light touch. However, upon discharge patient only responded to corneal stimulation. Answers questions promptly and appropriately. Vital signs noted. HENT: Normocephalic, atraumatic. Ear canals patent. Oral mucosa is pink and moist. EYES: Conjunctiva pink, sclera white, no periorbital swelling. CHEST: Normal to inspection and without deformities. CARDIOVASCULAR: S1 and S2 sounds normal. Regular rate and rhythm, no murmurs, clicks, or bruits. No pedal edema. RESPIRATORY: Normal respiratory rate, trachea midline, airway patent. No stridor, nasal flaring or accessory muscle use. Lungs with lower diffuse scattered wheezes which improved after albuterol inhaler administration. GASTROINTESTINAL: Bowel sounds normoactive. Abdomen is soft and non-tender. No organomegaly. MUSCULOSKELETAL: Normal gait and coordination. Equal tone and mass bilaterally. EXTREMITIES: CMS intact. Moves all extremities. SKIN: Warm, dry, soft, appropriate color for ethnicity. No lesions, rashes, or wounds. NEURO: Alert and Oriented X 3. Good coordination no ataxia initially, initial GCS 15. Patient had increasing lethargy and responded to pain only upon discharge GCS 8, than approximately an hour later after seizure-like activity (with arm she can, arm would not fall on face), patient was seen walking to the bathroom GCS 14 with some confusion and was seen following asleep rapidly in quickly PSYCH: Appropriate affect and mood. <Kristen Martinez DO - Last Filed: 12/30/19 07:31> Initial Vital Signs Initial Vital Signs: Vital Signs Pulse Rate 99 H 12/29/19 13:23 Respiratory Rate 16 12/29/19 13:23 Pulse Oximetry 97 12/29/19 13:23 Course <JENNIFER Putnam - Last Filed: 12/29/19 20:28> Course Course Narrative: 1600: Patient updated on plan of care, patient was asleep, awakes to light touch. 1703: Called to bedside as patient would not wake up. Dr. Martinez at bedside, reported she had poked patient with a needle and patient did not wake up. Patient with seen with tremors and possible seizure-like activity. states ?this happens frequently but has not happened in the past month ?. With arm drop test, arm would not fall on patient's face. Patient has good corneal response (withdrawals from pain). ABG, ammonia, head CT ordered. 1924: Spoke with Dr. Tang accepts for admission to observation. Orders Ordered: Acetaminophen (Tylenol) 975 mg PO BID [facility] Albuterol (Ventolin Hfa (Vent/Covid R/O)) 2 puff INH Q4H PRN PRN Reason: shortness of breath or wheezing Aripiprazole (Abilify) 5 mg PO BID [facility] Last Admin: 12/29/19 21:45 Dose: 5 mg Documented by: ELIZABETH Cyclobenzaprine HCl (Flexeril) 10 mg PO BID [facility] Last Admin: 12/29/19 21:39 Dose: 10 mg Documented by: ELIZABETH Duloxetine HCl (Cymbalta) 90 mg PO DAILY [facility] Furosemide (Lasix) 60 mg PO QPM [facility] Furosemide (Lasix) 100 mg PO DAILY [facility] Sodium Chloride (Normal Saline 0.9%) 1,000 mls @ 100 mls/hr IV CONT [facility] Last Admin: 12/29/19 21:38 Dose: 100 mls/hr Documented by: ELIZABETH Levothyroxine Sodium (Synthroid) 50 mcg PO BEDTIME [facility] Last Admin: 12/29/19 21:39 Dose: 50 mcg Documented by: ELIZABETH Magnesium Oxide (Mag Ox) 400 mg PO DAILY [facility] Metoprolol Tartrate (Lopressor) 12.5 mg PO BID [facility] Last Admin: 12/29/19 21:38 Dose: 12.5 mg Documented by: ELIZABETH Naloxone HCl (Narcan) 0.2 mg IV Q2MIN PRN PRN Reason: Opiate Reversal Pantoprazole Sodium (Protonix) 20 mg PO BID [facility] Last Admin: 12/29/19 21:38 Dose: 20 mg Documented by: ELIZABETH Potassium Chloride (Klor-Con M20) 20 meq PO DAILY [facility] Pregabalin (Lyrica) 150 mg PO BID [facility] Last Admin: 12/29/19 21:39 Dose: 150 mg Documented by: ELIZABETH Fluticasone/Salmeterol (Advair 100/50 Diskus) 1 puff INH BID [facility] Last Admin: 12/29/19 21:40 Dose: 1 puff Documented by: ELIZABETH Terazosin HCl (Hytrin) 5 mg PO BEDTIME [facility] Last Admin: 12/29/19 21:41 Dose: 5 mg Documented by: ELIZABETH Warfarin Sodium (Coumadin) 5 mg PO QOD@1700 [facility] Last Admin: 12/29/19 21:40 Dose: 5 mg Documented by: ELIZABETH Warfarin Sodium (Coumadin) 10 mg PO QOD@1700 [facility] Discontinued Medications Albuterol (Ventolin Hfa Prepack) 1 box MISC SEEINSTR ONE Stop: 12/29/19 13:38 Last Admin: 12/29/19 13:47 Dose: 1 box Documented by: CSIEDLE Sodium Chloride (Normal Saline 0.9%) 1,000 mls @ 1,000 mls/hr IV BOLUS ONE Stop: 12/29/19 14:34 Last Infusion: 12/29/19 15:53 Dose: 0 mls/hr Documented by: Admin: 12/29/19 14:11 Dose: 1,000 mls/hr Documented by: KRISTA Reevaluation(s) Reevaluation #1: Patient staffed with Dr. Martinez discussed test, test results, and plan of care. Additionally, Dr. Martinez was in the room when patient was only responsive to painful stimuli, but patient with a blunt needle and response. Vital Signs Vital signs: Vital Signs - 8 hr 12/29/19 13:23 12/29/19 13:25 12/29/19 13:30 Temperature 98.1 F Pulse Rate 99 H 92 H 95 H Respiratory Rate 16 16 20 Blood Pressure 130/69 98/54 L Pulse Oximetry 97 97 98 12/29/19 14:00 12/29/19 14:07 12/29/19 14:30 Temperature Pulse Rate 84 86 80 Respiratory Rate 16 20 13 Blood Pressure 99/54 L 102/55 L Pulse Oximetry 95 95 12/29/19 15:00 12/29/19 15:30 12/29/19 16:00 Temperature Pulse Rate 83 79 80 Respiratory Rate 26 H 15 15 Blood Pressure 100/59 L 96/53 L 101/52 L Pulse Oximetry 94 91 93 12/29/19 16:30 12/29/19 16:31 12/29/19 16:57 Temperature Pulse Rate 80 82 94 H Respiratory Rate 30 H 34 H 20 Blood Pressure 118/54 L 146/71 H Pulse Oximetry 91 92 98 12/29/19 17:00 12/29/19 17:23 12/29/19 17:37 Temperature Pulse Rate 88 86 101 H Respiratory Rate 17 18 15 Blood Pressure 87/60 L Pulse Oximetry 97 97 97 12/29/19 18:00 12/29/19 18:01 12/29/19 18:30 Temperature Pulse Rate 84 83 89 Respiratory Rate 15 22 30 H Blood Pressure 111/58 L 123/64 Pulse Oximetry 92 93 90 L <Kristen Martinez, DO - Last Filed: 12/30/19 07:31> Orders Ordered: Acetaminophen (Tylenol) 975 mg PO BID [facility] Albuterol (Ventolin Hfa (Vent/Covid R/O)) 2 puff INH Q4H PRN PRN Reason: shortness of breath or wheezing Aripiprazole (Abilify) 5 mg PO BID [facility] Last Admin: 12/29/19 21:45 Dose: 5 mg Documented by: ELIZABETH Cyclobenzaprine HCl (Flexeril) 10 mg PO BID [facility] Last Admin: 12/29/19 21:39 Dose: 10 mg Documented by: ELIZABETH Duloxetine HCl (Cymbalta) 90 mg PO DAILY [facility] Furosemide (Lasix) 60 mg PO QPM [facility] Furosemide (Lasix) 100 mg PO DAILY [facility] Sodium Chloride (Normal Saline 0.9%) 1,000 mls @ 100 mls/hr IV CONT [facility] Last Admin: 12/29/19 21:38 Dose: 100 mls/hr Documented by: ELIZABETH Levothyroxine Sodium (Synthroid) 50 mcg PO BEDTIME [facility] Last Admin: 12/29/19 21:39 Dose: 50 mcg Documented by: ELIZABETH Magnesium Oxide (Mag Ox) 400 mg PO DAILY [facility] Metoprolol Tartrate (Lopressor) 12.5 mg PO BID [facility] Last Admin: 12/29/19 21:38 Dose: 12.5 mg Documented by: ELIZABETH Naloxone HCl (Narcan) 0.2 mg IV Q2MIN PRN PRN Reason: Opiate Reversal Pantoprazole Sodium (Protonix) 20 mg PO BID [facility] Last Admin: 12/29/19 21:38 Dose: 20 mg Documented by: ELIZABETH Potassium Chloride (Klor-Con M20) 20 meq PO DAILY [facility] Pregabalin (Lyrica) 150 mg PO BID [facility] Last Admin: 12/29/19 21:39 Dose: 150 mg Documented by: ELIZABETH Fluticasone/Salmeterol (Advair 100/50 Diskus) 1 puff INH BID [facility] Last Admin: 12/29/19 21:40 Dose: 1 puff Documented by: ELIZABETH Terazosin HCl (Hytrin) 5 mg PO BEDTIME [facility] Last Admin: 12/29/19 21:41 Dose: 5 mg Documented by: ELIZABETH Warfarin Sodium (Coumadin) 5 mg PO QOD@1700 [facility] Last Admin: 12/29/19 21:40 Dose: 5 mg Documented by: ELIZABETH Warfarin Sodium (Coumadin) 10 mg PO QOD@1700 [facility] Discontinued Medications Albuterol (Ventolin Hfa Prepack) 1 box MISC SEEINSTR ONE Stop: 12/29/19 13:38 Last Admin: 12/29/19 13:47 Dose: 1 box Documented by: KRISTA Sodium Chloride (Normal Saline 0.9%) 1,000 mls @ 1,000 mls/hr IV BOLUS ONE Stop: 12/29/19 14:34 Last Infusion: 12/29/19 15:53 Dose: 0 mls/hr Documented by: Admin: 12/29/19 14:11 Dose: 1,000 mls/hr Documented by: KRISTA Vital Signs Vital signs: Vital Signs - 8 hr 12/29/19 13:23 12/29/19 13:25 12/29/19 13:30 Temperature 98.1 F Pulse Rate 99 H 92 H 95 H Respiratory Rate 16 16 20 Blood Pressure 130/69 98/54 L Pulse Oximetry 97 97 98 12/29/19 14:00 12/29/19 14:07 12/29/19 14:30 Temperature Pulse Rate 84 86 80 Respiratory Rate 16 20 13 Blood Pressure 99/54 L 102/55 L Pulse Oximetry 95 95 12/29/19 15:00 12/29/19 15:30 12/29/19 16:00 Temperature Pulse Rate 83 79 80 Respiratory Rate 26 H 15 15 Blood Pressure 100/59 L 96/53 L 101/52 L Pulse Oximetry 94 91 93 12/29/19 16:30 12/29/19 16:31 12/29/19 16:57 Temperature Pulse Rate 80 82 94 H Respiratory Rate 30 H 34 H 20 Blood Pressure 118/54 L 146/71 H Pulse Oximetry 91 92 98 12/29/19 17:00 12/29/19 17:23 12/29/19 17:37 Temperature Pulse Rate 88 86 101 H Respiratory Rate 17 18 15 Blood Pressure 87/60 L Pulse Oximetry 97 97 97 12/29/19 18:00 12/29/19 18:01 12/29/19 18:30 Temperature Pulse Rate 84 83 89 Respiratory Rate 15 22 30 H Blood Pressure 111/58 L 123/64 Pulse Oximetry 92 93 90 L MDM - Dizziness <JENNIFER Putnam - Last Filed: 12/29/19 20:28> Medical Records Attestation: I reviewed the patient's medical records. Lab Data Attestation: I reviewed the patient's lab results. Result diagrams: 12/30/19 05:25 12/30/19 05:25 Labs: Lab Results 12/29/19 12/29/19 12/29/19 Range/Units 14:05 14:05 14:05 WBC 4.8 (4.5-11.0) X10^3/uL RBC 3.56 L (4.0-5.2) X10^6/uL Hgb 7.8 L (12.0-16.0) g/dL Hct 25.7 L (36-46) % MCV 72.0 L (80-100) fL MCH 21.8 L (26-34) PG MCHC 30.3 (30-36) % RDW 18.2 H (11.6-14.8) % Plt Count 222 (150-400) X10^3/uL Neut % (Auto) 68.4 (50-75) % Lymph % (Auto) 19.0 L (25-40) % [place] % (Auto) 9.9 (3-14) % Eos % (Auto) 2.2 (2-4) % Baso % (Auto) 0.5 (0-2) % Neut # (Auto) 3300 (1987-8429) /uL Lymph # (Auto) 900 L (1359-5891) /uL [place] # (Auto) 500 (0-900) /uL Eos # (Auto) 100 (0-450) /uL Baso # (Auto) 0 (0-100) /uL PT (10.1-12.7) SECONDS INR (0.9-1.3) ABG pH (7.35-7.45) ABG pCO2 (35-45) mmHg ABG pO2 (80-100) mmHg ABG HCO3 (22-26) mmol/L ABG Total CO2 (21-31) mmol/L ABG O2 Saturation (95-100) % ABG Base Excess (-2-2) mmol/L FiO2 Sodium 138 (137-145) mmol/L Potassium 3.6 (3.4-5.1) mmol/L Chloride 101 (98-107) mmol/L Carbon Dioxide 35 H (22-32) mmol/L BUN 8 (7-17) mg/dL Creatinine 0.57 (0.52-1.04) mg/dL Estimated GFR > 60.0 (>60) mL/min BUN/Creatinine Ratio 14.0 (6-22) Glucose 123 H (70-100) mg/dL Calcium 8.9 (8.4-10.2) mg/dL Total Bilirubin 0.5 (0.2-1.3) mg/dL AST 33 (14-36) IU/L ALT 15 (<35) IU/L Alkaline Phosphatase 70 (38-126) U/L Ammonia (9-30) umol/L Total Creatine Kinase 332 H (30-135) U/L CK-MB (CK-2) 5.94 H (<2.37) ng/mL CK-MB (CK-2) Rel Index 1.8 (1.5-5.0) % Troponin I < 0.012 (0.01-0.034) ng/mL NT-Pro-B Natriuret Pep 193 H (<125) pg/mL Total Protein 7.0 (6.3-8.2) g/dL Albumin 3.9 (3.5-5.0) g/dL Globulin 3.1 (1.7-4.1) g/dL Albumin/Globulin Ratio 1.3 (1.0-2.8) Vitamin B12 (239-931) pg/mL Folate (2.76-20.0) ng/mL Prolactin (3.0-18.6) ng/mL U Opiates 300ng/mL cut (Negative) Ur Oxycodone Screen (Negative) Urine Methadone Screen (Negative) Ur Barbiturates Screen (Negative) U Tricyclic Antidepress (Negative) Ur Phencyclidine Scrn (Negative) Ur Amphetamines Screen (Negative) U Methamphetamines Scrn (Negative) Ur MDMA Scrn (Ecstasy) (Negative) U Benzodiazepines Scrn (Negative) Urine Cocaine Screen (Negative) U Marijuana (THC) Screen (Negative) COVID-19 PCR 12/29/19 12/29/19 12/29/19 Range/Units 14:05 14:05 14:05 WBC (4.5-11.0) X10^3/uL RBC (4.0-5.2) X10^6/uL Hgb (12.0-16.0) g/dL Hct (36-46) % MCV (80-100) fL MCH (26-34) PG MCHC (30-36) % RDW (11.6-14.8) % Plt Count (150-400) X10^3/uL Neut % (Auto) (50-75) % Lymph % (Auto) (25-40) % [place] % (Auto) (3-14) % Eos % (Auto) (2-4) % Baso % (Auto) (0-2) % Neut # (Auto) (2550-8141) /uL Lymph # (Auto) (2801-8191) /uL [place] # (Auto) (0-900) /uL Eos # (Auto) (0-450) /uL Baso # (Auto) (0-100) /uL PT 21.1 H (10.1-12.7) SECONDS INR 1.9 H (0.9-1.3) ABG pH (7.35-7.45) ABG pCO2 (35-45) mmHg ABG pO2 (80-100) mmHg ABG HCO3 (22-26) mmol/L ABG Total CO2 (21-31) mmol/L ABG O2 Saturation (95-100) % ABG Base Excess (-2-2) mmol/L FiO2 Sodium (137-145) mmol/L Potassium (3.4-5.1) mmol/L Chloride (98-107) mmol/L Carbon Dioxide (22-32) mmol/L BUN (7-17) mg/dL Creatinine (0.52-1.04) mg/dL Estimated GFR (>60) mL/min BUN/Creatinine Ratio (6-22) Glucose (70-100) mg/dL Calcium (8.4-10.2) mg/dL Total Bilirubin (0.2-1.3) mg/dL AST (14-36) IU/L ALT (<35) IU/L Alkaline Phosphatase (38-126) U/L Ammonia (9-30) umol/L Total Creatine Kinase (30-135) U/L CK-MB (CK-2) (<2.37) ng/mL CK-MB (CK-2) Rel Index (1.5-5.0) % Troponin I (0.01-0.034) ng/mL NT-Pro-B Natriuret Pep (<125) pg/mL Total Protein (6.3-8.2) g/dL Albumin (3.5-5.0) g/dL Globulin (1.7-4.1) g/dL Albumin/Globulin Ratio (1.0-2.8) Vitamin B12 (239-931) pg/mL Folate (2.76-20.0) ng/mL Prolactin (3.0-18.6) ng/mL U Opiates 300ng/mL cut (Negative) Ur Oxycodone Screen (Negative) Urine Methadone Screen (Negative) Ur Barbiturates Screen (Negative) U Tricyclic Antidepress (Negative) Ur Phencyclidine Scrn (Negative) Ur Amphetamines Screen (Negative) U Methamphetamines Scrn (Negative) Ur MDMA Scrn (Ecstasy) (Negative) U Benzodiazepines Scrn (Negative) Urine Cocaine Screen (Negative) U Marijuana (THC) Screen (Negative) COVID-19 PCR Cancelled Negative 12/29/19 12/29/19 12/29/19 Range/Units 14:05 17:12 17:14 WBC (4.5-11.0) X10^3/uL RBC (4.0-5.2) X10^6/uL Hgb (12.0-16.0) g/dL Hct (36-46) % MCV (80-100) fL MCH (26-34) PG MCHC (30-36) % RDW (11.6-14.8) % Plt Count (150-400) X10^3/uL Neut % (Auto) (50-75) % Lymph % (Auto) (25-40) % [place] % (Auto) (3-14) % Eos % (Auto) (2-4) % Baso % (Auto) (0-2) % Neut # (Auto) (6382-0920) /uL Lymph # (Auto) (9026-5323) /uL [place] # (Auto) (0-900) /uL Eos # (Auto) (0-450) /uL Baso # (Auto) (0-100) /uL PT (10.1-12.7) SECONDS INR (0.9-1.3) ABG pH 7.40 (7.35-7.45) ABG pCO2 50.9 H (35-45) mmHg ABG pO2 68 L (80-100) mmHg ABG HCO3 31 H (22-26) mmol/L ABG Total CO2 33 H (21-31) mmol/L ABG O2 Saturation 93 L (95-100) % ABG Base Excess 6.0 H (-2-2) mmol/L FiO2 21 Sodium (137-145) mmol/L Potassium (3.4-5.1) mmol/L Chloride (98-107) mmol/L Carbon Dioxide (22-32) mmol/L BUN (7-17) mg/dL Creatinine (0.52-1.04) mg/dL Estimated GFR (>60) mL/min BUN/Creatinine Ratio (6-22) Glucose (70-100) mg/dL Calcium (8.4-10.2) mg/dL Total Bilirubin (0.2-1.3) mg/dL AST (14-36) IU/L ALT (<35) IU/L Alkaline Phosphatase (38-126) U/L Ammonia < 9 L (9-30) umol/L Total Creatine Kinase (30-135) U/L CK-MB (CK-2) (<2.37) ng/mL CK-MB (CK-2) Rel Index (1.5-5.0) % Troponin I (0.01-0.034) ng/mL NT-Pro-B Natriuret Pep (<125) pg/mL Total Protein (6.3-8.2) g/dL Albumin (3.5-5.0) g/dL Globulin (1.7-4.1) g/dL Albumin/Globulin Ratio (1.0-2.8) Vitamin B12 531 (239-931) pg/mL Folate 9.5 (2.76-20.0) ng/mL Prolactin (3.0-18.6) ng/mL U Opiates 300ng/mL cut (Negative) Ur Oxycodone Screen (Negative) Urine Methadone Screen (Negative) Ur Barbiturates Screen (Negative) U Tricyclic Antidepress (Negative) Ur Phencyclidine Scrn (Negative) Ur Amphetamines Screen (Negative) U Methamphetamines Scrn (Negative) Ur MDMA Scrn (Ecstasy) (Negative) U Benzodiazepines Scrn (Negative) Urine Cocaine Screen (Negative) U Marijuana (THC) Screen (Negative) COVID-19 PCR 12/29/19 12/29/19 Range/Units 17:42 18:25 WBC (4.5-11.0) X10^3/uL RBC (4.0-5.2) X10^6/uL Hgb (12.0-16.0) g/dL Hct (36-46) % MCV (80-100) fL MCH (26-34) PG MCHC (30-36) % RDW (11.6-14.8) % Plt Count (150-400) X10^3/uL Neut % (Auto) (50-75) % Lymph % (Auto) (25-40) % [place] % (Auto) (3-14) % Eos % (Auto) (2-4) % Baso % (Auto) (0-2) % Neut # (Auto) (8118-9680) /uL Lymph # (Auto) (4847-9989) /uL [place] # (Auto) (0-900) /uL Eos # (Auto) (0-450) /uL Baso # (Auto) (0-100) /uL PT (10.1-12.7) SECONDS INR (0.9-1.3) ABG pH (7.35-7.45) ABG pCO2 (35-45) mmHg ABG pO2 (80-100) mmHg ABG HCO3 (22-26) mmol/L ABG Total CO2 (21-31) mmol/L ABG O2 Saturation (95-100) % ABG Base Excess (-2-2) mmol/L FiO2 Sodium (137-145) mmol/L Potassium (3.4-5.1) mmol/L Chloride (98-107) mmol/L Carbon Dioxide (22-32) mmol/L BUN (7-17) mg/dL Creatinine (0.52-1.04) mg/dL Estimated GFR (>60) mL/min BUN/Creatinine Ratio (6-22) Glucose (70-100) mg/dL Calcium (8.4-10.2) mg/dL Total Bilirubin (0.2-1.3) mg/dL AST (14-36) IU/L ALT (<35) IU/L Alkaline Phosphatase (38-126) U/L Ammonia (9-30) umol/L Total Creatine Kinase (30-135) U/L CK-MB (CK-2) (<2.37) ng/mL CK-MB (CK-2) Rel Index (1.5-5.0) % Troponin I (0.01-0.034) ng/mL NT-Pro-B Natriuret Pep (<125) pg/mL Total Protein (6.3-8.2) g/dL Albumin (3.5-5.0) g/dL Globulin (1.7-4.1) g/dL Albumin/Globulin Ratio (1.0-2.8) Vitamin B12 (239-931) pg/mL Folate (2.76-20.0) ng/mL Prolactin 12.7 (3.0-18.6) ng/mL U Opiates 300ng/mL cut Negative (Negative) Ur Oxycodone Screen Negative (Negative) Urine Methadone Screen Negative (Negative) Ur Barbiturates Screen Negative (Negative) U Tricyclic Antidepress Positive H (Negative) Ur Phencyclidine Scrn Negative (Negative) Ur Amphetamines Screen Negative (Negative) U Methamphetamines Scrn Negative (Negative) Ur MDMA Scrn (Ecstasy) Negative (Negative) U Benzodiazepines Scrn Negative (Negative) Urine Cocaine Screen Negative (Negative) U Marijuana (THC) Screen Negative (Negative) COVID-19 PCR Urine Dip Bedside Urine Glucose Negative Bedside Urine Bilirubin - Negative Bedside Urine Ketone - Negative Urine Specific [place] 1.010 Bedside Urine Occult Blood +++ Bedside Urine pH 7.0 Bedside Urine Protein - Negative Bedside Urine Urobilinogen - Negative Bedside Urine Nitrite - Negative Bedside Urine Leukocytes - Negative Esterase Imaging Data Head CT: Radiologist's Impression: [place] [address] CT Scan Report Signed Patient: Nuvia Alvarado [facility]#: [id number] : 1980Acct:[id number] Age/Sex: 39 / FDate of Service: 12/29/19 Loc: ED Accession Number: [id number] Procedure: CT head/brain wo con Ordering Provider: Rachelle Wynne PROCEDURE: CT HEAD/BRAIN WO CON INDICATIONS: Lethargy TECHNIQUE: Noncontrast 4.5 mm thick angled axial sections acquired from the foramen magnum to the vertex, with coronal and sagittal reformats. For radiation dose reduction, the following was used: automated exposure control, adjustment of mA and/or kV according to patient size. COMPARISON: [facility], MR, MR HEAD/BRAIN WO/W CON, 09/19/2019, 15:24. [facility], CT, CT HEAD/BRAIN WO CON, 09/19/2019, 12:21. [facility], CT, CT HEAD/BRAIN WO CON, 02/11/2019, 14:54. FINDINGS: Image quality: Excellent. CSF spaces: Basal cisterns are patent. No extra-axial fluid collections. Ventricles are normal in size and shape. Brain: No midline shift. No intracranial masses or hemorrhage. Waterman-white matter interface is normal. Skull and face: Calvarium and visualized facial bones are intact, without suspicious lesions. Sinuses: Visualized sinuses and mastoids are clear. IMPRESSION: No acute intracranial disease process. Dictated by: Patricia Blair MD, PhD on 12/29/2019 at 17:31 Approved by: Patricia Blair MD, PhD on 12/29/2019 at 17:32 Chest x-ray: Radiologist's Impression: [place] [address] XRay Report Signed Patient: Nuvia Alvarado [facility]#: [id number] : 1980Acct:[id number] Age/Sex: 39 / FDate of Service: 12/29/19 Loc: ED Accession Number: [id number] Procedure: XR chest 1V Ordering Provider: Rachelle Wynne PROCEDURE: XR CHEST 1V INDICATIONS: WHeezing TECHNIQUE: One view of the chest was acquired. COMPARISON: [facility], CR, XR CHEST 1V, 12/02/2019, 5:09. [facility], CR, XR CHEST 1V, 09/21/2019, 10:08. FINDINGS: Surgical changes and devices: None. Lungs and pleura: Lungs are abnormal with a generalized pattern of mild pulmonary edema.. No pleural effusions or pneumothorax. Mediastinum: Mediastinal contours appear normal. Heart size is at the upper limits of normal but not enlarged and no pleural effusion is associated with the alveolar edema pattern present. Bones and chest wall: No suspicious bony lesions. Overlying soft tissues appear unremarkable. IMPRESSION: Alveolar edema pattern, possibly cardiogenic in origin and a patchy distribution suggestive of pneumonia is not seen. Is similar pattern was present in August of this year and also early November. Chronic CHF episodes can produce interstitial prominence over time within the lung parenchyma. Dictated by: Beto Apple M.D. on 12/29/2019 at 14:07 Approved by: Beto Apple M.D. on 12/29/2019 at 14:08 ECG Data Interpretation: 1336: Sinus rhythm, rate 84, WA interval 129, QTC [address] elevation or ST depression. Right bundle branch noted, this is consistent with prior EKGs from August 2019. EKG also viewed by Dr. Martinez per protocol. MDM Narrative Medical decision making narrative: 39-year-old female presents emergency department for episodes of dizziness and falling asleep. Initially, patient's symptoms are most likely caused by chronic anemia. Worsen level within normal limits for therapeutic range. No reports of bleeding and any point, patient was encouraged to take iron supplement and follow-up. Additionally, patient was tested for code due to recent exposure. However, due to increased lethargy and decreased consciousness upon discharge with seizure-like activity, head CT, ABG, procalcitonin, and ammonia levels were ordered. Findings were nonsignificant. Unsure exact cause of decreased consciousness, do like it to be may be due to pseudoseizures as arm did not fallen face and patient had a response to corneal stimuli. Differential also includes ingestion of medications. However, patient denies. UDS positive for TCAs. Some edematous changes seen on x-ray which have been consistent over the past few months to year, less likely CHF due to lack of lower extremity swelling, no crackles on examination, and BNP within normal limits. Patient did have wheezes on examination, was given albuterol which improved wheezes. No hypoxia, slightly hypercapnic but less likely the cause of altered mental status. Differential also includes LYLA, narcolepsy, or medication interactions. Patient was admitted to Dr. Tang for further monitoring and evaluation if indicated. <Kristen Martinez, - Last Filed: 12/30/19 07:31> Lab Data Labs: Lab Results 12/29/19 12/29/19 12/29/19 Range/Units 14:05 14:05 14:05 WBC 4.8 (4.5-11.0) X10^3/uL RBC 3.56 L (4.0-5.2) X10^6/uL Hgb 7.8 L (12.0-16.0) g/dL Hct 25.7 L (36-46) % MCV 72.0 L (80-100) fL MCH 21.8 L (26-34) PG MCHC 30.3 (30-36) % RDW 18.2 H (11.6-14.8) % Plt Count 222 (150-400) X10^3/uL Neut % (Auto) 68.4 (50-75) % Lymph % (Auto) 19.0 L (25-40) % [place] % (Auto) 9.9 (3-14) % Eos % (Auto) 2.2 (2-4) % Baso % (Auto) 0.5 (0-2) % Neut # (Auto) 3300 (0332-2071) /uL Lymph # (Auto) 900 L (3329-8381) /uL [place] # (Auto) 500 (0-900) /uL Eos # (Auto) 100 (0-450) /uL Baso # (Auto) 0 (0-100) /uL PT (10.1-12.7) SECONDS INR (0.9-1.3) ABG pH (7.35-7.45) ABG pCO2 (35-45) mmHg ABG pO2 (80-100) mmHg ABG HCO3 (22-26) mmol/L ABG Total CO2 (21-31) mmol/L ABG O2 Saturation (95-100) % ABG Base Excess (-2-2) mmol/L FiO2 Sodium 138 (137-145) mmol/L Potassium 3.6 (3.4-5.1) mmol/L Chloride 101 (98-107) mmol/L Carbon Dioxide 35 H (22-32) mmol/L BUN 8 (7-17) mg/dL Creatinine 0.57 (0.52-1.04) mg/dL Estimated GFR > 60.0 (>60) mL/min BUN/Creatinine Ratio 14.0 (6-22) Glucose 123 H (70-100) mg/dL Calcium 8.9 (8.4-10.2) mg/dL Total Bilirubin 0.5 (0.2-1.3) mg/dL AST 33 (14-36) IU/L ALT 15 (<35) IU/L Alkaline Phosphatase 70 (38-126) U/L Ammonia (9-30) umol/L Total Creatine Kinase 332 H (30-135) U/L CK-MB (CK-2) 5.94 H (<2.37) ng/mL CK-MB (CK-2) Rel Index 1.8 (1.5-5.0) % Troponin I < 0.012 (0.01-0.034) ng/mL NT-Pro-B Natriuret Pep 193 H (<125) pg/mL Total Protein 7.0 (6.3-8.2) g/dL Albumin 3.9 (3.5-5.0) g/dL Globulin 3.1 (1.7-4.1) g/dL Albumin/Globulin Ratio 1.3 (1.0-2.8) Vitamin B12 (239-931) pg/mL Folate (2.76-20.0) ng/mL Prolactin (3.0-18.6) ng/mL U Opiates 300ng/mL cut (Negative) Ur Oxycodone Screen (Negative) Urine Methadone Screen (Negative) Ur Barbiturates Screen (Negative) U Tricyclic Antidepress (Negative) Ur Phencyclidine Scrn (Negative) Ur Amphetamines Screen (Negative) U Methamphetamines Scrn (Negative) Ur MDMA Scrn (Ecstasy) (Negative) U Benzodiazepines Scrn (Negative) Urine Cocaine Screen (Negative) U Marijuana (THC) Screen (Negative) COVID-19 PCR 12/29/19 12/29/19 12/29/19 Range/Units 14:05 14:05 14:05 WBC (4.5-11.0) X10^3/uL RBC (4.0-5.2) X10^6/uL Hgb (12.0-16.0) g/dL Hct (36-46) % MCV (80-100) fL MCH (26-34) PG MCHC (30-36) % RDW (11.6-14.8) % Plt Count (150-400) X10^3/uL Neut % (Auto) (50-75) % Lymph % (Auto) (25-40) % [place] % (Auto) (3-14) % Eos % (Auto) (2-4) % Baso % (Auto) (0-2) % Neut # (Auto) (4288-3029) /uL Lymph # (Auto) (9095-7685) /uL [place] # (Auto) (0-900) /uL Eos # (Auto) (0-450) /uL Baso # (Auto) (0-100) /uL PT 21.1 H (10.1-12.7) SECONDS INR 1.9 H (0.9-1.3) ABG pH (7.35-7.45) ABG pCO2 (35-45) mmHg ABG pO2 (80-100) mmHg ABG HCO3 (22-26) mmol/L ABG Total CO2 (21-31) mmol/L ABG O2 Saturation (95-100) % ABG Base Excess (-2-2) mmol/L FiO2 Sodium (137-145) mmol/L Potassium (3.4-5.1) mmol/L Chloride (98-107) mmol/L Carbon Dioxide (22-32) mmol/L BUN (7-17) mg/dL Creatinine (0.52-1.04) mg/dL Estimated GFR (>60) mL/min BUN/Creatinine Ratio (6-22) Glucose (70-100) mg/dL Calcium (8.4-10.2) mg/dL Total Bilirubin (0.2-1.3) mg/dL AST (14-36) IU/L ALT (<35) IU/L Alkaline Phosphatase (38-126) U/L Ammonia (9-30) umol/L Total Creatine Kinase (30-135) U/L CK-MB (CK-2) (<2.37) ng/mL CK-MB (CK-2) Rel Index (1.5-5.0) % Troponin I (0.01-0.034) ng/mL NT-Pro-B Natriuret Pep (<125) pg/mL Total Protein (6.3-8.2) g/dL Albumin (3.5-5.0) g/dL Globulin (1.7-4.1) g/dL Albumin/Globulin Ratio (1.0-2.8) Vitamin B12 (239-931) pg/mL Folate (2.76-20.0) ng/mL Prolactin (3.0-18.6) ng/mL U Opiates 300ng/mL cut (Negative) Ur Oxycodone Screen (Negative) Urine Methadone Screen (Negative) Ur Barbiturates Screen (Negative) U Tricyclic Antidepress (Negative) Ur Phencyclidine Scrn (Negative) Ur Amphetamines Screen (Negative) U Methamphetamines Scrn (Negative) Ur MDMA Scrn (Ecstasy) (Negative) U Benzodiazepines Scrn (Negative) Urine Cocaine Screen (Negative) U Marijuana (THC) Screen (Negative) COVID-19 PCR Cancelled Negative 12/29/19 12/29/19 12/29/19 Range/Units 14:05 17:12 17:14 WBC (4.5-11.0) X10^3/uL RBC (4.0-5.2) X10^6/uL Hgb (12.0-16.0) g/dL Hct (36-46) % MCV (80-100) fL MCH (26-34) PG MCHC (30-36) % RDW (11.6-14.8) % Plt Count (150-400) X10^3/uL Neut % (Auto) (50-75) % Lymph % (Auto) (25-40) % [place] % (Auto) (3-14) % Eos % (Auto) (2-4) % Baso % (Auto) (0-2) % Neut # (Auto) (8766-9807) /uL Lymph # (Auto) (3885-8701) /uL [place] # (Auto) (0-900) /uL Eos # (Auto) (0-450) /uL Baso # (Auto) (0-100) /uL PT (10.1-12.7) SECONDS INR (0.9-1.3) ABG pH 7.40 (7.35-7.45) ABG pCO2 50.9 H (35-45) mmHg ABG pO2 68 L (80-100) mmHg ABG HCO3 31 H (22-26) mmol/L ABG Total CO2 33 H (21-31) mmol/L ABG O2 Saturation 93 L (95-100) % ABG Base Excess 6.0 H (-2-2) mmol/L FiO2 21 Sodium (137-145) mmol/L Potassium (3.4-5.1) mmol/L Chloride (98-107) mmol/L Carbon Dioxide (22-32) mmol/L BUN (7-17) mg/dL Creatinine (0.52-1.04) mg/dL Estimated GFR (>60) mL/min BUN/Creatinine Ratio (6-22) Glucose (70-100) mg/dL Calcium (8.4-10.2) mg/dL Total Bilirubin (0.2-1.3) mg/dL AST (14-36) IU/L ALT (<35) IU/L Alkaline Phosphatase (38-126) U/L Ammonia < 9 L (9-30) umol/L Total Creatine Kinase (30-135) U/L CK-MB (CK-2) (<2.37) ng/mL CK-MB (CK-2) Rel Index (1.5-5.0) % Troponin I (0.01-0.034) ng/mL NT-Pro-B Natriuret Pep (<125) pg/mL Total Protein (6.3-8.2) g/dL Albumin (3.5-5.0) g/dL Globulin (1.7-4.1) g/dL Albumin/Globulin Ratio (1.0-2.8) Vitamin B12 531 (239-931) pg/mL Folate 9.5 (2.76-20.0) ng/mL Prolactin (3.0-18.6) ng/mL U Opiates 300ng/mL cut (Negative) Ur Oxycodone Screen (Negative) Urine Methadone Screen (Negative) Ur Barbiturates Screen (Negative) U Tricyclic Antidepress (Negative) Ur Phencyclidine Scrn (Negative) Ur Amphetamines Screen (Negative) U Methamphetamines Scrn (Negative) Ur MDMA Scrn (Ecstasy) (Negative) U Benzodiazepines Scrn (Negative) Urine Cocaine Screen (Negative) U Marijuana (THC) Screen (Negative) COVID-19 PCR 12/29/19 12/29/19 Range/Units 17:42 18:25 WBC (4.5-11.0) X10^3/uL RBC (4.0-5.2) X10^6/uL Hgb (12.0-16.0) g/dL Hct (36-46) % MCV (80-100) fL MCH (26-34) PG MCHC (30-36) % RDW (11.6-14.8) % Plt Count (150-400) X10^3/uL Neut % (Auto) (50-75) % Lymph % (Auto) (25-40) % [place] % (Auto) (3-14) % Eos % (Auto) (2-4) % Baso % (Auto) (0-2) % Neut # (Auto) (4693-9498) /uL Lymph # (Auto) (7214-3668) /uL [place] # (Auto) (0-900) /uL Eos # (Auto) (0-450) /uL Baso # (Auto) (0-100) /uL PT (10.1-12.7) SECONDS INR (0.9-1.3) ABG pH (7.35-7.45) ABG pCO2 (35-45) mmHg ABG pO2 (80-100) mmHg ABG HCO3 (22-26) mmol/L ABG Total CO2 (21-31) mmol/L ABG O2 Saturation (95-100) % ABG Base Excess (-2-2) mmol/L FiO2 Sodium (137-145) mmol/L Potassium (3.4-5.1) mmol/L Chloride (98-107) mmol/L Carbon Dioxide (22-32) mmol/L BUN (7-17) mg/dL Creatinine (0.52-1.04) mg/dL Estimated GFR (>60) mL/min BUN/Creatinine Ratio (6-22) Glucose (70-100) mg/dL Calcium (8.4-10.2) mg/dL Total Bilirubin (0.2-1.3) mg/dL AST (14-36) IU/L ALT (<35) IU/L Alkaline Phosphatase (38-126) U/L Ammonia (9-30) umol/L Total Creatine Kinase (30-135) U/L CK-MB (CK-2) (<2.37) ng/mL CK-MB (CK-2) Rel Index (1.5-5.0) % Troponin I (0.01-0.034) ng/mL NT-Pro-B Natriuret Pep (<125) pg/mL Total Protein (6.3-8.2) g/dL Albumin (3.5-5.0) g/dL Globulin (1.7-4.1) g/dL Albumin/Globulin Ratio (1.0-2.8) Vitamin B12 (239-931) pg/mL Folate (2.76-20.0) ng/mL Prolactin 12.7 (3.0-18.6) ng/mL U Opiates 300ng/mL cut Negative (Negative) Ur Oxycodone Screen Negative (Negative) Urine Methadone Screen Negative (Negative) Ur Barbiturates Screen Negative (Negative) U Tricyclic Antidepress Positive H (Negative) Ur Phencyclidine Scrn Negative (Negative) Ur Amphetamines Screen Negative (Negative) U Methamphetamines Scrn Negative (Negative) Ur MDMA Scrn (Ecstasy) Negative (Negative) U Benzodiazepines Scrn Negative (Negative) Urine Cocaine Screen Negative (Negative) U Marijuana (THC) Screen Negative (Negative) COVID-19 PCR Urine Dip Bedside Urine Glucose Negative Bedside Urine Bilirubin - Negative Bedside Urine Ketone - Negative Urine Specific [place] 1.010 Bedside Urine Occult Blood +++ Bedside Urine pH 7.0 Bedside Urine Protein - Negative Bedside Urine Urobilinogen - Negative Bedside Urine Nitrite - Negative Bedside Urine Leukocytes - Negative Esterase ECG Data Attestation: I personally reviewed and interpreted this ECG as follows: Prior ECG tracings: available for review Interpretation: Normal sinus rhythm rate 84 p.r. interval 129 QRS 136 QTC 483 right bundle branch block noted similar to previous EKG MDM Narrative Medical decision making narrative: Has called to evaluate patient upon discharge. She became unresponsive and did not respond to a blunt needle. She briefly open her eyes but was overall on arousable. ABG ammonia level and head CT were ordered at that time. She had shaking episode but of her arms only. Her arm was placed over her face and it did not hit her face. The questionable drug use drug screen is also ordered. She is anemic with a hemoglobin is 7.8 which may be causing her dizzy and lightheadedness episodes however it is unlikely related to her most current episode. She has no active bleeding. ABG shows a CO2 of 50.9 which is slightly elevated however her pH is 7.4 so this is likely chronic, CO2 retainment is unlikely the cause of her unresponsiveness Drug screen is only also positive for tricyclics is and ammonia levels within normal limits. Unclear what is happening. This time recommend observation. Discharge Plan Departure Patient Disposition: Admitted as Observation Clinical Impression: Seizure-like activity, Lethargy Anemia Qualifiers: Anemia type: unspecified type Qualified Code(s): D64.9 - Anemia, unspecified Discharge Date/Time: 12/29/19 19:18 Instructions: Anemia Additional Instructions: Thank you for entrusting me with your care today. As discussed, your laboratory work shows chronic anemia. This may be contributing to her symptoms. I suggest taking iron supplements daily. These iron supplements for sent to [facility] in [place]. Please call your primary care provider to schedule an appointment in the next few days for further evaluation testing if indicated. Return emergency department immediately for any new or worsening symptoms such as chest pain, shortness of breath, syncope, or any other concerns. You have been tested for COVID-19. This test may take 2-5 days for results to return, we will call you with these results. Please remain in quarantine with self isolation at home for 3 days after your symptoms have completely resolved. Drink lots of fluids, take Tylenol for fever, get extra rest, clean all surfaces, cover your cough, wash your hands frequently, and avoid sharing any personal items. If you need to seek medical care, please call the clinic or the emergency department before your arrival. Referrals: Alejandra Lynch MD [Primary Care Provider] - Admit Date/Time: 12/29/19 18:51 Admit Provider: Pavan Tang <Kristen Martinez DO - Last Filed: 12/30/19 07:31> [facility]olly Attestation: I was immediately available in the department for consultation. Documentation has been reviewed. I agree with assessment and plan.
[2019-12-29 14:28] LABS: Alanine Aminotransferase 15 IU/L (<35); Albumin 3.9 g/dL (3.5-5.0); Albumin Globulin Ratio 1.3 (1.0-2.8); Alkaline Phosphatase 70 U/L (38-126); Aspartate Aminotransferase 33 IU/L (14-36); Bilirubin Total 0.5 mg/dL (0.2-1.3); Blood Urea Nitrogen 8 mg/dL (7-17); Calcium 8.9 mg/dL (8.4-10.2); Carbon Dioxide 35 mmol/L (22-32); Chloride 101 mmol/L (98-107); Creatine Kinase 332 U/L (30-135); Estimated Glomerular Filt Rate > 60.0 mL/min (>60); Globulin 3.1 g/dL (1.7-4.1); Glucose 123 mg/dL (70-100); Potassium 3.6 mmol/L (3.4-5.1); Sodium 138 mmol/L (137-145)
[2019-12-29 14:37] LABS: NT-proBNP (BNP-Adult 18+) 193 pg/mL (<125)
[2019-12-29 14:39] LABS: Troponin I < 0.012 ng/mL (0.01-0.034)
[2019-12-29 14:43] LABS: CKMB % Relative Index 1.8 % (1.5-5.0); Creatine Kinase MB 5.94 ng/mL (<2.37); HEMOLYSIS 26 (0-50)
[2019-12-29 16:01] LABS: INR 1.9 (0.9-1.3); Prothrombin Time 21.1 SECONDS (10.1-12.7)
--- NOTE | 2019-12-29 16:59 | DI.CT.S_ITS ---
PROCEDURE: CT HEAD/BRAIN WO CON INDICATIONS: Lethargy TECHNIQUE: Noncontrast 4.5 mm thick angled axial sections acquired from the foramen magnum to the vertex, with coronal and sagittal reformats. For radiation dose reduction, the following was used: automated exposure control, adjustment of mA and/or kV according to patient size. COMPARISON: [facility], MR, MR HEAD/BRAIN WO/W CON, 09/19/2019, 15:24. [facility], CT, CT HEAD/BRAIN WO CON, 09/19/2019, 12:21. [facility], CT, CT HEAD/BRAIN WO CON, 02/11/2019, 14:54. FINDINGS: Image quality: Excellent. CSF spaces: Basal cisterns are patent. No extra-axial fluid collections. Ventricles are normal in size and shape. Brain: No midline shift. No intracranial masses or hemorrhage. Waterman-white matter interface is normal. Skull and face: Calvarium and visualized facial bones are intact, without suspicious lesions. Sinuses: Visualized sinuses and mastoids are clear. IMPRESSION: No acute intracranial disease process. Dictated by: Patricia Blair MD, PhD on 12/29/2019 at 17:31 Approved by: Patricia Blair MD, PhD on 12/29/2019 at 17:32
--- NOTE | 2019-12-29 17:06 | PC.NURSE ---
Went into room to DC patient and pt asleep snoring with in room. unable to rouse. states that is how she normally sleeps. woke to tapping her on the side of the cheek. Pupils dilated. drifted back to sleep. 98% RA. no response to noxious nailbed stim or sternal rub. Dr Martinez aware and in room. orders for ammonia level and ABG. pt denies taking any home meds while in room.
[2019-12-29 17:33] LABS: Ammonia (NH3) < 9 umol/L (9-30)
[2019-12-29 17:39] LABS: HCO3 ABG 31 mmol/L (22-26); PCO2 ABG 50.9 mmHg (35-45); PO2 ABG 68 mmHg (80-100); TCO2 ABG 33 mmol/L (21-31)
[2019-12-29 17:40] LABS: Fractionated Inspired Oxygen 21; Oxygen Saturation ABG 93 % (95-100)
[2019-12-29 18:01] LABS: UR Morphine/Opiate cutoff 300 Negative (Negative); Ur Creatinine Normal (Normal); Ur Specific Gravity Normal (Normal); Urine Amphetamines Negative (Negative); Urine Barbiturates Negative (Negative); Urine Benzodiazepines Negative (Negative); Urine Cocaine Negative (Negative); Urine MDMA Negative (Negative); Urine Methadone Negative (Negative); Urine Methamphetamines Negative (Negative); Urine Oxycodone Negative (Negative); Urine Phencyclidine Negative (Negative); Urine Tetrahydrocannabinol Negative (Negative); Urine Tricyclic Antidepressant Positive (Negative); Urine pH Normal (Normal)
[2019-12-29 18:51] LABS: Prolactin 12.7 ng/mL (3.0-18.6)
--- NOTE | 2019-12-29 19:09 | PC.NURSE ---
1750: pt awake OOB ambulated to bathroom and sample received
[2019-12-29 20:02] LABS: COVID19 -Nasal RAPID Negative (Negative)
--- NOTE | 2019-12-29 20:31 | P.HP_ITS ---
History of Present Illness History of Present Illness Date Patient Seen: 12/29/19 Time Patient Seen: 20:31 Date of Onset of Symptoms: 12/27/19 Chief complaint: FAINTING SPELLS Narrative: Dizziness Patient admitted through the emergency room this afternoon because of dizziness. Patient presents to the ER earlier this morning complaining dizziness. She has been having dizziness of last several days. Dizziness seem to get worse and so she came here. The dizziness is constant as she has had dizziness intermittently in the past wears intermittent but dizziness last couple days has been of persistent hand not affected by time of day position with without liquids without food. No other related symptoms she can relate to his far as symptoms with the dizziness. Initially she was evaluated emergency room and found to be anemic and a somewhat dehydrated and felt that this was a problem. During the course of the planned discharge apparently she became unresponsive and the it took several minutes to to arouse her and she did return back to her pre syncope state. Reportedly she has these episodes periodically in the past. She is admitted for observation and perhaps further evaluation. Currently she has no complaints other than she does feel lightheaded but the other than that she feels like her normal self. Chart review shows her to have a significant comorbidities. Last seen by her per PCP Dr. Lynch October of this year. She primarily has been seen by Kerline Adame medical imaging tech in the clinic. Additionally was seen by Dr. Bales psychiatrist. The patient has a list of multiple diagnoses as per Dr. Lynch's note: Anasarca, urinary retention, sleep apnea, depression, narcotics the habituation, low back pain,. 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 Patient is on Suboxone for her pain medication usage. She refuses user CPAP machine. Other specialist she has seen has been a software test manager for the edema and questionable of pulmonary hypertension with evaluation was negative. She has seen urologist urinary tension and really [place] is at the there is nothing more to be done other than medication. She [facility] and saw him last week and apparently was stable. She reportedly relates she was exposed to someone then about 10 days ago who was Co with positive. Patient has been tested in the past. Dr. Randall back and candy butcher was seeing her for her edema and felt there was no significant kidney disorder. Patient was here in the hospital recently and developed pulmonary embolism when she is on anticoagulation. Apparently this 2nd pulmonary embolism so she was told by her doctor that this is for ever. Patient History Medical History Acetaminophen overdose of undetermined intent (Resolved 12/2015) Alcoholism (Acute) Asthma (Chronic) Cubital tunnel syndrome (Chronic) Depression (Chronic 02/08/14) DM type 2 (diabetes mellitus, type 2) (Acute) DVT (deep venous thrombosis) (Acute) Essential hypertension (Chronic) Fibromyalgia (Chronic 03/02/15) Intraoperative cardiac arrest during non-cardiac surgery (Resolved 11/2013) 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 (Chronic) Morbid obesity (Chronic) Narcotic habituation, continuous (Acute) Obstipation (Inactive) LYLA (obstructive sleep apnea) (Chronic) Ovarian cyst (Chronic) Plantar fasciitis (Chronic) Psychogenic nonepileptic seizure (Acute) Pulmonary embolism (Acute) Status post laminectomy (Inactive 12/14/15) Suicide attempt (Resolved) Tylenol overdose (Resolved) Urinary retention (Acute) Surgical History History of carpal tunnel repair (Resolved 10/30/14) S/P epidural steroid injection (Resolved 11/2013) Status post dilation and curettage (Resolved 2008) Status post laminectomy (Resolved 09/2016) Family & Social History Family History Grandfather Diabetes mellitus Family/Other Pancreatic cancer Social History: household members spouse Safety & Behavioral: Feels Safe in Current Yes Environment Been Physically Hurt or No Threatened By a Person Suicidal Ideation Description None Suicide Plan Description No Plan Tobacco & Substance use: Tobacco type cigarettes Smoking Status Current every day smoker Smoking packs per day 1 alcohol intake current alcohol intake frequency a few times a week Substance Use Type does not use Meds Home Medications and Allergies Home Medications Medication Instructions Recorded Confirmed Type acetaminophen 500 mg tablet 2,000 mg PO BID tab 09/23/18 12/29/19 History blood sugar diagnostic #50 each 12/08/18 11/08/19 Rx blood-glucose meter #1 each 12/08/18 11/08/19 Rx lancets 33 gauge #100 each 12/08/18 11/08/19 Rx TENS units #1 each 02/09/19 11/08/19 Rx omeprazole 20 mg capsule,delayed 20 mg PO BID #180 cap 05/23/19 12/02/19 Rx release magnesium 500 mg PO DAILY 06/29/19 12/02/19 History potassium chloride 20 mEq 20 meq PO DAILY 07/07/19 12/02/19 History tablet,extended release terazosin 5 mg capsule 10 mg PO BEDTIME cap 07/07/19 12/02/19 History albuterol sulfate 2 puff INHALATION Q4-6H PRN #8.5 07/11/19 12/29/19 Rx gram fluticasone propion-salmeterol 1 puff INHALATION BID 07/11/19 12/02/19 History [Advair Diskus] pregabalin 150 mg capsule 150 mg PO BID #60 cap 09/20/19 12/02/19 Rx Compressioin Stockings #1 ea 10/13/19 11/08/19 Rx furosemide 60 mg PO QPM 12/02/19 12/02/19 History furosemide 100 mg PO QAM 12/02/19 12/02/19 History warfarin [Coumadin] 5 mg PO Q OTHER DAY 12/02/19 12/02/19 History warfarin [Coumadin] 10 mg PO Q OTHER DAY 12/02/19 12/02/19 History aripiprazole [Abilify] 5 mg PO BID 12/29/19 12/29/19 History cyclobenzaprine 10 mg PO BID 12/29/19 12/29/19 History duloxetine 90 mg PO DAILY 12/29/19 12/29/19 History ferrous sulfate [iron] 325 mg PO DAILY #14 tab 12/29/19 Rx levothyroxine 50 mcg PO BEDTIME 12/29/19 12/29/19 History metoprolol tartrate 12.5 mg PO BID 12/29/19 12/29/19 History Allergies Allergy/AdvReac Type Severity Reaction Status Date / Time carisoprodol [CARISOPRODOL] AdvReac Severe urinary Verified 11/08/19 13:27 retention fosphenytoin AdvReac Intermediate ITCHING Verified 11/08/19 13:27 Review of Systems Review of Systems ROS: Yes All systems reviewed with the patient and are negative except as otherwise documented Exam Vital Signs (past 8 hours): - 12/29/19 13:23 12/29/19 13:25 12/29/19 13:30 Temperature 98.1 F Pulse Rate 99 H 92 H 95 H Respiratory Rate 16 16 20 Blood Pressure 130/69 98/54 L Pulse Oximetry 97 97 98 12/29/19 14:00 12/29/19 14:07 12/29/19 14:30 Temperature Pulse Rate 84 86 80 Respiratory Rate 16 20 13 Blood Pressure 99/54 L 102/55 L Pulse Oximetry 95 95 12/29/19 15:00 12/29/19 15:30 12/29/19 16:00 Temperature Pulse Rate 83 79 80 Respiratory Rate 26 H 15 15 Blood Pressure 100/59 L 96/53 L 101/52 L Pulse Oximetry 94 91 93 12/29/19 16:30 12/29/19 16:31 12/29/19 16:57 Temperature Pulse Rate 80 82 94 H Respiratory Rate 30 H 34 H 20 Blood Pressure 118/54 L 146/71 H Pulse Oximetry 91 92 98 12/29/19 17:00 12/29/19 17:23 12/29/19 17:37 Temperature Pulse Rate 88 86 101 H Respiratory Rate 17 18 15 Blood Pressure 87/60 L Pulse Oximetry 97 97 97 12/29/19 18:00 12/29/19 18:01 12/29/19 18:30 Temperature Pulse Rate 84 83 89 Respiratory Rate 15 22 30 H Blood Pressure 111/58 L 123/64 Pulse Oximetry 92 93 90 L 12/29/19 19:00 Temperature Pulse Rate 93 H Respiratory Rate 19 Blood Pressure 123/67 Pulse Oximetry 91 Oxygen Delivery Method Room Air Narrative Exam Narrative: Gen.: Obese female resting quietly in hospital bed appears in no distress. Skin: Warm well perfused. No prominent lesions. Nonicteric. HEENT: PERRL., normal EOM, external ears canals TMs normal, nasal mucosa normal and midline septum, oropharynx without lesions. Neck: Trachea midline. Thyroid nontender and not enlarged. Carotids without bruits. No lymphadenopathy Back: No obvious deformity or tenderness. Chest: Clear to P&A. Symmetric. CV: RRR no murmur or gallop. No JVD. Abdomen: No masses bruits tenderness or visceromegaly. Neuro: Cranial nerves II through XII grossly intact. Sensory and motor exams intact. Gait normal. Mental status: Intact for screening Extremities: [No cyanosis clubbing. Trace edema Musculoskeletal: No gross deformities Lymphatics: Negative for lymphadenopathy, supraclavicular axillary or inguinal Neurologic exam she is alert oriented x3. Cranial nerves 2-12 intact. Finger-nose normal. Strength sensation upper and lower extremities are symmetric and normal calves. Calves are nontender Objective Labs Result Diagrams: 12/29/19 14:05 12/29/19 14:05 Labs: Laboratory Results - last 24 hr 12/29/19 12/29/19 12/29/19 14:05 14:05 14:05 WBC 4.8 RBC 3.56 L Hgb 7.8 L Hct 25.7 L MCV 72.0 L MCH 21.8 L MCHC 30.3 RDW 18.2 H Plt Count 222 Neut % (Auto) 68.4 Lymph % (Auto) 19.0 L [place] % (Auto) 9.9 Eos % (Auto) 2.2 Baso % (Auto) 0.5 Neut # (Auto) 3300 Lymph # (Auto) 900 L [place] # (Auto) 500 Eos # (Auto) 100 Baso # (Auto) 0 PT INR ABG pH ABG pCO2 ABG pO2 ABG HCO3 ABG Total CO2 ABG O2 Saturation ABG Base Excess FiO2 Sodium 138 Potassium 3.6 Chloride 101 Carbon Dioxide 35 H BUN 8 Creatinine 0.57 Estimated GFR > 60.0 BUN/Creatinine Ratio 14.0 Glucose 123 H Calcium 8.9 Total Bilirubin 0.5 AST 33 ALT 15 Alkaline Phosphatase 70 Ammonia Total Creatine Kinase 332 H CK-MB (CK-2) 5.94 H CK-MB (CK-2) Rel Index 1.8 Troponin I < 0.012 NT-Pro-B Natriuret Pep 193 H Total Protein 7.0 Albumin 3.9 Globulin 3.1 Albumin/Globulin Ratio 1.3 Prolactin U Opiates 300ng/mL cut Ur Oxycodone Screen Urine Methadone Screen Ur Barbiturates Screen U Tricyclic Antidepress Ur Phencyclidine Scrn Ur Amphetamines Screen U Methamphetamines Scrn Ur MDMA Scrn (Ecstasy) U Benzodiazepines Scrn Urine Cocaine Screen U Marijuana (THC) Screen COVID-19 PCR 12/29/19 12/29/19 12/29/19 14:05 14:05 14:05 WBC RBC Hgb Hct MCV MCH MCHC RDW Plt Count Neut % (Auto) Lymph % (Auto) [place] % (Auto) Eos % (Auto) Baso % (Auto) Neut # (Auto) Lymph # (Auto) [place] # (Auto) Eos # (Auto) Baso # (Auto) PT 21.1 H INR 1.9 H ABG pH ABG pCO2 ABG pO2 ABG HCO3 ABG Total CO2 ABG O2 Saturation ABG Base Excess FiO2 Sodium Potassium Chloride Carbon Dioxide BUN Creatinine Estimated GFR BUN/Creatinine Ratio Glucose Calcium Total Bilirubin AST ALT Alkaline Phosphatase Ammonia Total Creatine Kinase CK-MB (CK-2) CK-MB (CK-2) Rel Index Troponin I NT-Pro-B Natriuret Pep Total Protein Albumin Globulin Albumin/Globulin Ratio Prolactin U Opiates 300ng/mL cut Ur Oxycodone Screen Urine Methadone Screen Ur Barbiturates Screen U Tricyclic Antidepress Ur Phencyclidine Scrn Ur Amphetamines Screen U Methamphetamines Scrn Ur MDMA Scrn (Ecstasy) U Benzodiazepines Scrn Urine Cocaine Screen U Marijuana (THC) Screen COVID-19 PCR Cancelled Negative 12/29/19 12/29/19 12/29/19 17:12 17:14 17:42 WBC RBC Hgb Hct MCV MCH MCHC RDW Plt Count Neut % (Auto) Lymph % (Auto) [place] % (Auto) Eos % (Auto) Baso % (Auto) Neut # (Auto) Lymph # (Auto) [place] # (Auto) Eos # (Auto) Baso # (Auto) PT INR ABG pH 7.40 ABG pCO2 50.9 H ABG pO2 68 L ABG HCO3 31 H ABG Total CO2 33 H ABG O2 Saturation 93 L ABG Base Excess 6.0 H FiO2 21 Sodium Potassium Chloride Carbon Dioxide BUN Creatinine Estimated GFR BUN/Creatinine Ratio Glucose Calcium Total Bilirubin AST ALT Alkaline Phosphatase Ammonia < 9 L Total Creatine Kinase CK-MB (CK-2) CK-MB (CK-2) Rel Index Troponin I NT-Pro-B Natriuret Pep Total Protein Albumin Globulin Albumin/Globulin Ratio Prolactin U Opiates 300ng/mL cut Negative Ur Oxycodone Screen Negative Urine Methadone Screen Negative Ur Barbiturates Screen Negative U Tricyclic Antidepress Positive H Ur Phencyclidine Scrn Negative Ur Amphetamines Screen Negative U Methamphetamines Scrn Negative Ur MDMA Scrn (Ecstasy) Negative U Benzodiazepines Scrn Negative Urine Cocaine Screen Negative U Marijuana (THC) Screen Negative COVID-19 PCR 12/29/19 18:25 WBC RBC Hgb Hct MCV MCH MCHC RDW Plt Count Neut % (Auto) Lymph % (Auto) [place] % (Auto) Eos % (Auto) Baso % (Auto) Neut # (Auto) Lymph # (Auto) [place] # (Auto) Eos # (Auto) Baso # (Auto) PT INR ABG pH ABG pCO2 ABG pO2 ABG HCO3 ABG Total CO2 ABG O2 Saturation ABG Base Excess FiO2 Sodium Potassium Chloride Carbon Dioxide BUN Creatinine Estimated GFR BUN/Creatinine Ratio Glucose Calcium Total Bilirubin AST ALT Alkaline Phosphatase Ammonia Total Creatine Kinase CK-MB (CK-2) CK-MB (CK-2) Rel Index Troponin I NT-Pro-B Natriuret Pep Total Protein Albumin Globulin Albumin/Globulin Ratio Prolactin 12.7 U Opiates 300ng/mL cut Ur Oxycodone Screen Urine Methadone Screen Ur Barbiturates Screen U Tricyclic Antidepress Ur Phencyclidine Scrn Ur Amphetamines Screen U Methamphetamines Scrn Ur MDMA Scrn (Ecstasy) U Benzodiazepines Scrn Urine Cocaine Screen U Marijuana (THC) Screen COVID-19 PCR labs renewed of significance her prolactin levels toe 0.7 decreasing the likelihood of this being the actual seizure, arterial blood gas showed a pCO2 of 50.9 consistent with her history of hypoventilation, INR is 1.9, creatine kinase 3332 hemoglobin 7.8 this to be repeated tonight, BUN 8 creatinine 0.57 Assessment & Plan Assessment & Plan narrative: 1. Dizziness is a primary complaint currently. This is been going on for several days but a more severe recently. Of significance on evaluation included hemoglobin that down significantly from before. She has no history consistent with the GI blood loss but likely be the case. She will be have some further studies done referral to the decreased hemoglobin and we may need to have a surgical consult referable to EGD/colonoscopy. Of our levels pending and a repeat hemoglobin forthcoming. 2. Multiple other comorbidities that is certainly complicate the picture details of which are pretty sketchy but they include anasarca, obstructive sleep apnea, narcotic habituation, depression, anxiety, non epileptic seizures. 3. Will get an updated MRI looking for other etiologies for dizziness. 4. She has sleep apnea but does not use her CPAP in a she does apparently have hypoventilation show anticipate her knee required supplemental oxygen overnight. This may be part of the problem causing her dizziness and her tiredness all the time. 4. It seems that the only acute issue is the anemia her other issues appear to be chronic and stable and had have been a an ongoing challenge for her caregivers. 5. Patient also apparently has a history of type 2 diabetes will monitor blood sugars A1c was normal in the past. 6. Has stated above her cardiac status have been has been evaluated felt to be unremarkable, kidney status normal, chronic back pain stable. Bladder urinary retention stable, 7. Patient has been treated and is to treated with Suboxone and will continue same of based on her current level. I expected to be are couple days she will need to be or longer if hemoglobin drops and or she requires endoscopy Quality VTE Deep Vein Thrombosis/Pulmonary Embolism Present on Admission: No
[2019-12-29 21:18] LABS: Hematocrit 25.6 % (36-46); Hemoglobin 7.7 g/dL (12.0-16.0)
[2019-12-29 21:26] LABS: Vitamin B12 531 pg/mL (239-931)
[2019-12-29] MEDS: SODIUM CHLORIDE 0.9% 1,000 ML 100 ML IV (21:38)
[2019-12-29] MEDS: PANTOPRAZOLE 20 MG TABLET PO (21:38)
[2019-12-29] MEDS: METOPROLOL IR 25 MG TABLET 12.5 MG PO (21:38)
[2019-12-29] MEDS: CYCLOBENZAPRINE 10 MG TABLET PO (21:39)
[2019-12-29] MEDS: LEVOTHYROXINE 50 MCG TABLET PO (21:39)
[2019-12-29] MEDS: PREGABALIN 75 MG CAPSULE 150 MG PO (21:39)
[2019-12-29] MEDS: WARFARIN 5 MG TABLET PO (21:40)
[2019-12-29] MEDS: FLUTICASONE/SALMETEROL 100/50 60 PUFF DISKUS INH (21:40)
[2019-12-29] MEDS: TERAZOSIN 5 MG CAPSULE PO (21:41)
[2019-12-29] MEDS: ARIPiprazole 10 MG TABLET 5 MG PO (21:45)
[2019-12-29 22:08] LABS: Folate 9.5 ng/mL (2.76-20.0)
--- NOTE | 2019-12-29 22:55 | PC.NURSE ---
O2/sleep apnea pt has audible snores. Breathing pauses occasionally for a few seconds and O2 decreases from mid to upper 90s down to low 80s. 2L o2 placed and pt remains in the 90s. pt states did have a home CPAP but she got a staph infection from it and so will no longer use it.
[2019-12-30] VITALS (8 sets, daily range): BP systolic 106–154; BP diastolic 64–77; PULSE 85–97; RESP 16–22; TEMP 36.2–36.6; O2SAT 94–100
[2019-12-30 05:39] LABS: INR 1.9 (0.9-1.3); Prothrombin Time 21.9 SECONDS (10.1-12.7)
[2019-12-30 05:46] LABS: Add Manual Diff / Slide Review NO; Basophils Absolute Auto 100 /uL (0-100); Basophils Percent Auto 2.7 % (0-2); Eosinophils Absolute Auto 100 /uL (0-450); Eosinophils Percent Auto 2.5 % (2-4); Hematocrit 25.1 % (36-46); Hemoglobin 7.5 g/dL (12.0-16.0); Lymphocytes Absolute Auto 1100 /uL (1100-4500); Lymphocytes Percent Auto 22.3 % (25-40); Mean Corpuscular Hemoglobin 21.5 PG (26-34); Mean Corpuscular Volume 71.8 fL (80-100); Monocytes Absolute Auto 400 /uL (0-900); Monocytes Percent Auto 8.4 % (3-14); Neutrophils Absolute Auto 3200 /uL (1500-7000); Neutrophils Percent Auto 64.1 % (50-75); Platelet Count 206 X10^3/uL (150-400)
[2019-12-30 05:47] LABS: BUN Creatinine Ratio 14.5 (6-22); Blood Urea Nitrogen 9 mg/dL (7-17); Calcium 8.9 mg/dL (8.4-10.2); Carbon Dioxide 32 mmol/L (22-32); Chloride 107 mmol/L (98-107); Estimated Glomerular Filt Rate > 60.0 mL/min (>60); Glucose 112 mg/dL (70-100); HEMOLYSIS < 15 (0-50); Potassium 4.1 mmol/L (3.4-5.1); Sodium 140 mmol/L (137-145)
[2019-12-30] MEDS: SODIUM CHLORIDE 0.9% 1,000 ML 100 ML IV ×2 (07:27→22:20)
[2019-12-30] MEDS: FLUTICASONE/SALMETEROL 100/50 60 PUFF DISKUS INH ×2 (09:00→21:11)
--- NOTE | 2019-12-30 09:49 | PM.HP.1 ---
History of Present Illness History of Present Illness Chief complaint: FAINTING SPELLS Narrative: Dizziness Patient admitted through the emergency room this afternoon because of dizziness. Patient presents to the ER earlier this morning complaining dizziness. She has been having dizziness of last several days. Dizziness seem to get worse and so she came here. The dizziness is constant as she has had dizziness intermittently in the past wears intermittent but dizziness last couple days has been of persistent hand not affected by time of day position with without liquids without food. No other related symptoms she can relate to his far as symptoms with the dizziness. Initially she was evaluated emergency room and found to be anemic and a somewhat dehydrated and felt that this was a problem. During the course of the planned discharge apparently she became unresponsive and the it took several minutes to to arouse her and she did return back to her pre syncope state. Reportedly she has these episodes periodically in the past. She is admitted for observation and perhaps further evaluation. Currently she has no complaints other than she does feel lightheaded but the other than that she feels like her normal self. Chart review shows her to have a significant comorbidities. Last seen by her per PCP Dr. Lynch October of this year. She primarily has been seen by Kerline Adame medical charge entry specialist in the clinic. Additionally was seen by Dr. Bales psychiatrist. The patient has a list of multiple diagnoses as per Dr. Lynch's note: Anasarca, urinary retention, sleep apnea, depression, narcotics the habituation, low back pain,. 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 Patient is on Suboxone for her pain medication usage. She refuses user CPAP machine. Other specialist she has seen has been a learning support assistant for the edema and questionable of pulmonary hypertension with evaluation was negative. She has seen urologist urinary tension and really [place] is at the there is nothing more to be done other than medication. She has back surgeon that she sees in [facility] and saw him last week and apparently was stable. She reportedly relates she was exposed to someone then about 10 days ago who was Co with positive. Patient has been tested in the past. Dr. Randall back and office messenger was seeing her for her edema and felt there was no significant kidney disorder. Patient was here in the hospital recently and developed pulmonary embolism when she is on anticoagulation. Apparently this 2nd pulmonary embolism so she was told by her doctor that this is for ever. Patient History Medical History Acetaminophen overdose of undetermined intent (Resolved 12/2015) Alcoholism (Acute) Asthma (Chronic) Cubital tunnel syndrome (Chronic) Depression (Chronic 02/08/14) DM type 2 (diabetes mellitus, type 2) (Acute) DVT (deep venous thrombosis) (Acute) Essential hypertension (Chronic) Fibromyalgia (Chronic 03/02/15) Intraoperative cardiac arrest during non-cardiac surgery (Resolved 11/2013) 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 (Chronic) Morbid obesity (Chronic) Narcotic habituation, continuous (Acute) Obstipation (Inactive) LYLA (obstructive sleep apnea) (Chronic) Ovarian cyst (Chronic) Plantar fasciitis (Chronic) Psychogenic nonepileptic seizure (Acute) Pulmonary embolism (Acute) Status post laminectomy (Inactive 12/14/15) Suicide attempt (Resolved) Tylenol overdose (Resolved) Urinary retention (Acute) Surgical History History of carpal tunnel repair (Resolved 10/30/14) S/P epidural steroid injection (Resolved 11/2013) Status post dilation and curettage (Resolved 2008) Status post laminectomy (Resolved 09/2016) Family & Social History Family History Grandfather Diabetes mellitus Family/Other Pancreatic cancer Social History: household members spouse Safety & Behavioral: Feels Safe in Current Yes Environment Been Physically Hurt or No Threatened By a Person Suicidal Ideation Description None Suicide Plan Description No Plan Tobacco & Substance use: Tobacco type cigarettes Smoking Status Current every day smoker Smoking packs per day 1 alcohol intake current alcohol intake frequency a few times a week Substance Use Type does not use Meds Home Medications and Allergies Home Medications Medication Instructions Recorded Confirmed Type acetaminophen 500 mg tablet 2,000 mg PO BID tab 09/23/18 12/29/19 History blood sugar diagnostic #50 each 12/08/18 12/30/19 Rx blood-glucose meter #1 each 12/08/18 12/30/19 Rx lancets 33 gauge #100 each 12/08/18 12/30/19 Rx TENS units #1 each 02/09/19 12/30/19 Rx omeprazole 20 mg capsule,delayed 20 mg PO BID #180 cap 05/23/19 12/29/19 Rx release magnesium 500 mg PO DAILY 06/29/19 12/29/19 History potassium chloride 20 mEq 20 meq PO DAILY 07/07/19 12/29/19 History tablet,extended release terazosin 5 mg capsule 5 mg PO BEDTIME cap 07/07/19 12/29/19 History albuterol sulfate 2 puff INHALATION Q4-6H PRN #8.5 07/11/19 12/29/19 Rx gram fluticasone propion-salmeterol 1 puff INHALATION BID 07/11/19 12/29/19 History [Advair Diskus] pregabalin 150 mg capsule 150 mg PO BID #60 cap 09/20/19 12/29/19 Rx Compressioin Stockings #1 ea 10/13/19 12/30/19 Rx furosemide 60 mg PO QPM 12/02/19 12/29/19 History furosemide 100 mg PO QAM 12/02/19 12/29/19 History warfarin [Coumadin] 5 mg PO Q OTHER DAY 12/02/19 12/29/19 History warfarin [Coumadin] 10 mg PO Q OTHER DAY 12/02/19 12/29/19 History aripiprazole [Abilify] 5 mg PO BID 12/29/19 12/29/19 History buprenorphine-naloxone [Zubsolv] 1 tab SUBLINGUAL BID 12/29/19 12/29/19 History cyclobenzaprine 10 mg PO BID 12/29/19 12/29/19 History duloxetine 90 mg PO DAILY 12/29/19 12/29/19 History ferrous sulfate [iron] 325 mg PO DAILY #14 tab 12/29/19 Rx levothyroxine 50 mcg PO BEDTIME 12/29/19 12/29/19 History metoprolol tartrate 12.5 mg PO BID 12/29/19 12/29/19 History Allergies Allergy/AdvReac Type Severity Reaction Status Date / Time carisoprodol [CARISOPRODOL] AdvReac Severe urinary Verified 11/08/19 13:27 retention fosphenytoin AdvReac Intermediate ITCHING Verified 11/08/19 13:27 Review of Systems Review of Systems ROS: Yes All systems reviewed with the patient and are negative except as otherwise documented Exam Vital Signs (past 8 hours): - 12/30/19 05:48 12/30/19 07:57 12/30/19 09:01 Temperature 97.9 F 97.3 F L Pulse Rate 91 H 95 H Respiratory Rate 18 16 Blood Pressure 122/65 125/76 Pulse Oximetry 98 98 98 Oxygen Delivery Method Nasal Cannula Oxygen Flow Rate 3 Narrative Exam Narrative: Patient is hot examined hospital bed resting quietly appears in no distress. is nearby. Head is nontender eyes EOMs intact LAN a ear drums normal oropharynx clear. Neck is supple. Lungs are entirely clear does not take a deep breath. Cardiac exam regular rhythm no murmur gallop Abdominal exam normal bowel sounds minimal tenderness around the periumbilical area. Calves are nontender. And she has trace edema around her ankles. Neurologic exam cranial nerves 2-12 intact. Strength sensation upper lower extremities are normal and symmetric per Objective Labs Result Diagrams: 12/30/19 05:25 12/30/19 05:25 Labs: Laboratory Results - last 24 hr 12/29/19 12/29/19 12/29/19 14:05 14:05 14:05 WBC 4.8 RBC 3.56 L Hgb 7.8 L Hct 25.7 L MCV 72.0 L MCH 21.8 L MCHC 30.3 RDW 18.2 H Plt Count 222 Neut % (Auto) 68.4 Lymph % (Auto) 19.0 L [place] % (Auto) 9.9 Eos % (Auto) 2.2 Baso % (Auto) 0.5 Neut # (Auto) 3300 Lymph # (Auto) 900 L [place] # (Auto) 500 Eos # (Auto) 100 Baso # (Auto) 0 PT INR ABG pH ABG pCO2 ABG pO2 ABG HCO3 ABG Total CO2 ABG O2 Saturation ABG Base Excess FiO2 Sodium 138 Potassium 3.6 Chloride 101 Carbon Dioxide 35 H BUN 8 Creatinine 0.57 Estimated GFR > 60.0 BUN/Creatinine Ratio 14.0 Glucose 123 H Calcium 8.9 Total Bilirubin 0.5 AST 33 ALT 15 Alkaline Phosphatase 70 Ammonia Total Creatine Kinase 332 H CK-MB (CK-2) 5.94 H CK-MB (CK-2) Rel Index 1.8 Troponin I < 0.012 NT-Pro-B Natriuret Pep 193 H Total Protein 7.0 Albumin 3.9 Globulin 3.1 Albumin/Globulin Ratio 1.3 Vitamin B12 Folate Prolactin U Opiates 300ng/mL cut Ur Oxycodone Screen Urine Methadone Screen Ur Barbiturates Screen U Tricyclic Antidepress Ur Phencyclidine Scrn Ur Amphetamines Screen U Methamphetamines Scrn Ur MDMA Scrn (Ecstasy) U Benzodiazepines Scrn Urine Cocaine Screen U Marijuana (THC) Screen COVID-19 PCR 12/29/19 12/29/19 12/29/19 14:05 14:05 14:05 WBC RBC Hgb Hct MCV MCH MCHC RDW Plt Count Neut % (Auto) Lymph % (Auto) [place] % (Auto) Eos % (Auto) Baso % (Auto) Neut # (Auto) Lymph # (Auto) [place] # (Auto) Eos # (Auto) Baso # (Auto) PT 21.1 H INR 1.9 H ABG pH ABG pCO2 ABG pO2 ABG HCO3 ABG Total CO2 ABG O2 Saturation ABG Base Excess FiO2 Sodium Potassium Chloride Carbon Dioxide BUN Creatinine Estimated GFR BUN/Creatinine Ratio Glucose Calcium Total Bilirubin AST ALT Alkaline Phosphatase Ammonia Total Creatine Kinase CK-MB (CK-2) CK-MB (CK-2) Rel Index Troponin I NT-Pro-B Natriuret Pep Total Protein Albumin Globulin Albumin/Globulin Ratio Vitamin B12 Folate Prolactin U Opiates 300ng/mL cut Ur Oxycodone Screen Urine Methadone Screen Ur Barbiturates Screen U Tricyclic Antidepress Ur Phencyclidine Scrn Ur Amphetamines Screen U Methamphetamines Scrn Ur MDMA Scrn (Ecstasy) U Benzodiazepines Scrn Urine Cocaine Screen U Marijuana (THC) Screen COVID-19 PCR Cancelled Negative 12/29/19 12/29/19 12/29/19 14:05 17:12 17:14 WBC RBC Hgb Hct MCV MCH MCHC RDW Plt Count Neut % (Auto) Lymph % (Auto) [place] % (Auto) Eos % (Auto) Baso % (Auto) Neut # (Auto) Lymph # (Auto) [place] # (Auto) Eos # (Auto) Baso # (Auto) PT INR ABG pH 7.40 ABG pCO2 50.9 H ABG pO2 68 L ABG HCO3 31 H ABG Total CO2 33 H ABG O2 Saturation 93 L ABG Base Excess 6.0 H FiO2 21 Sodium Potassium Chloride Carbon Dioxide BUN Creatinine Estimated GFR BUN/Creatinine Ratio Glucose Calcium Total Bilirubin AST ALT Alkaline Phosphatase Ammonia < 9 L Total Creatine Kinase CK-MB (CK-2) CK-MB (CK-2) Rel Index Troponin I NT-Pro-B Natriuret Pep Total Protein Albumin Globulin Albumin/Globulin Ratio Vitamin B12 531 Folate 9.5 Prolactin U Opiates 300ng/mL cut Ur Oxycodone Screen Urine Methadone Screen Ur Barbiturates Screen U Tricyclic Antidepress Ur Phencyclidine Scrn Ur Amphetamines Screen U Methamphetamines Scrn Ur MDMA Scrn (Ecstasy) U Benzodiazepines Scrn Urine Cocaine Screen U Marijuana (THC) Screen COVID-19 PCR 12/29/19 12/29/19 12/29/19 17:42 18:25 21:10 WBC RBC Hgb 7.7 L Hct 25.6 L MCV MCH MCHC RDW Plt Count Neut % (Auto) Lymph % (Auto) [place] % (Auto) Eos % (Auto) Baso % (Auto) Neut # (Auto) Lymph # (Auto) [place] # (Auto) Eos # (Auto) Baso # (Auto) PT INR ABG pH ABG pCO2 ABG pO2 ABG HCO3 ABG Total CO2 ABG O2 Saturation ABG Base Excess FiO2 Sodium Potassium Chloride Carbon Dioxide BUN Creatinine Estimated GFR BUN/Creatinine Ratio Glucose Calcium Total Bilirubin AST ALT Alkaline Phosphatase Ammonia Total Creatine Kinase CK-MB (CK-2) CK-MB (CK-2) Rel Index Troponin I NT-Pro-B Natriuret Pep Total Protein Albumin Globulin Albumin/Globulin Ratio Vitamin B12 Folate Prolactin 12.7 U Opiates 300ng/mL cut Negative Ur Oxycodone Screen Negative Urine Methadone Screen Negative Ur Barbiturates Screen Negative U Tricyclic Antidepress Positive H Ur Phencyclidine Scrn Negative Ur Amphetamines Screen Negative U Methamphetamines Scrn Negative Ur MDMA Scrn (Ecstasy) Negative U Benzodiazepines Scrn Negative Urine Cocaine Screen Negative U Marijuana (THC) Screen Negative COVID-19 PCR 12/30/19 12/30/19 12/30/19 05:25 05:25 05:25 WBC 5.0 RBC 3.50 L Hgb 7.5 L Hct 25.1 L MCV 71.8 L MCH 21.5 L MCHC 30.0 RDW 18.0 H Plt Count 206 Neut % (Auto) 64.1 Lymph % (Auto) 22.3 L [place] % (Auto) 8.4 Eos % (Auto) 2.5 Baso % (Auto) 2.7 H Neut # (Auto) 3200 Lymph # (Auto) 1100 [place] # (Auto) 400 Eos # (Auto) 100 Baso # (Auto) 100 PT 21.9 H INR 1.9 H ABG pH ABG pCO2 ABG pO2 ABG HCO3 ABG Total CO2 ABG O2 Saturation ABG Base Excess FiO2 Sodium 140 Potassium 4.1 Chloride 107 Carbon Dioxide 32 BUN 9 Creatinine 0.62 Estimated GFR > 60.0 BUN/Creatinine Ratio 14.5 Glucose 112 H Calcium 8.9 Total Bilirubin AST ALT Alkaline Phosphatase Ammonia Total Creatine Kinase CK-MB (CK-2) CK-MB (CK-2) Rel Index Troponin I NT-Pro-B Natriuret Pep Total Protein Albumin Globulin Albumin/Globulin Ratio Vitamin B12 Folate Prolactin U Opiates 300ng/mL cut Ur Oxycodone Screen Urine Methadone Screen Ur Barbiturates Screen U Tricyclic Antidepress Ur Phencyclidine Scrn Ur Amphetamines Screen U Methamphetamines Scrn Ur MDMA Scrn (Ecstasy) U Benzodiazepines Scrn Urine Cocaine Screen U Marijuana (THC) Screen COVID-19 PCR labs reviewed of significance is her to decrease in hemoglobin this is a new problem. Initially had elevated creatine kinase which has since returned to normal renal function is normal prolactin level normal arterial blood gases showed indeed a increased pCO2 Assessment & Plan Assessment & Plan narrative: 1. Patient with new onset decrease heme hemoglobin may well explain the dizziness. She has no history of hematochezia. May be related to anticoagulation. Apparently also she has heavy menstrual. So a could explain same however as she does not tend to have a bleeding diathesis that were aware. Discussion of his may the care [facility] general surgeon who agrees that further evaluations appropriate. She was scheduled for EGD and colonoscopy tomorrow. 2. Her mental status issues seem to be an ongoing challenge attempted to get MRI last night apparently she few same period of will discuss with her again about getting an updated MRI for further evaluation of her neurologic status. 3. Her pre-existing psychiatric sec psychological diagnoses are still unclear to me if she is seeing as several counselors on medications for same he yet to be determined what is to come of all this but I suspect is stable problem. 4. She has these ?non epileptic seizures? unclear what that means but suspect that there functional which case that is part of her psychiatric diagnosis. 5. Anticipate patient will be here through the weekend. 6. Patient was seen by Dr. Monet Hastings over the weekend who is covering for our practice in the hospital. Quality VTE Deep Vein Thrombosis/Pulmonary Embolism Present on Admission: No
[2019-12-30] MEDS: ACETAMINOPHEN 325 MG TABLET 975 MG PO ×2 (09:53→21:07)
[2019-12-30] MEDS: FUROSEMIDE 40 MG TABLET 100 MG PO (09:53)
[2019-12-30] MEDS: DULOXETINE 30 MG CAPSULE 90 MG PO (09:53)
[2019-12-30] MEDS: PREGABALIN 75 MG CAPSULE 150 MG PO ×2 (09:55→21:08)
[2019-12-30] MEDS: METOPROLOL IR 25 MG TABLET 12.5 MG PO ×2 (09:55→21:08)
[2019-12-30] MEDS: POTASSIUM CHLORIDE 20 MEQ TAB PO (09:56)
[2019-12-30] MEDS: PANTOPRAZOLE 20 MG TABLET PO ×2 (09:56→21:07)
[2019-12-30] MEDS: MAGNESIUM OXIDE 400 MG TABLET PO (09:57)
[2019-12-30] MEDS: ARIPiprazole 10 MG TABLET 5 MG PO ×2 (09:59→21:07)
[2019-12-30] MEDS: CYCLOBENZAPRINE 10 MG TABLET PO ×2 (09:59→21:07)
--- NOTE | 2019-12-30 10:21 | DI.MRI.S_ITS ---
PROCEDURE: MR HEAD/BRAIN WO CON INDICATIONS: dizzy TECHNIQUE: Noncontrast axial T1 spin echo, axial T2 fast spin echo, sagittal and axial FLAIR, coronal T2 fast spin echo, axial gradient echo, axial diffusion and ADC through the brain. COMPARISON: None. FINDINGS: Image quality: Excellent. CSF Spaces: Basal cisterns are patent. No extra-axial fluid collections. Ventricles are normal in size and shape. Brain: No intracranial masses or hemorrhage. [place]/white matter interface is normal. Brainstem appears normal. Diffusion-weighted images demonstrate no acute ischemic insult. No chronic ischemic insults. Normal intravascular flow voids are present. In this patient with this given history, scrutiny is given to the internal auditory canals and the cerebellopontine angle cisterns. To the limits of this non-contrast enter protocol study, no masses or abnormal signal can be seen within these regions. Skull and face: Calvarium has normal marrow signal. Orbits appear normal. Sinuses: Sinuses and mastoids are clear. IMPRESSION: No imaging explanation is found for this patient's presenting symptoms. If there is strong clinical concern for an internal auditory canal mass in this patient with this given history, please consider a dedicated IAC protocol MRI for further evaluation. Dictated by: Rickie Lundberg M.D. on 12/30/2019 at 14:54 Approved by: Rickie Lundberg M.D. on 12/30/2019 at 15:19
--- NOTE | 2019-12-30 11:57 | PM.CN ---
History of Present Illness Consult details Date Patient Seen: 12/30/19 Time Patient Seen: 11:57 Chief complaint: FAINTING SPELLS Reason for consult: Anemia Requesting provider: Pavan Tang Narrative: This is a 39 yo woman with complex medical history including severe morbid obesity (BMI 48), chronic pain, recurrent PE's on coumadin anticoaguation with INR 2.1 in the ER, seizure-like activity, psychiatric diagnoses, excessive menstrual bleeding, DM2, anxiety, LYLA, narcotic use, HTN, asthma, depression, fibromyalgia, pulonary htn, constipation, GERD, who was admitted through the ER because of dizziness and anemia. She was found to have Hgb of 7.5 in the ER. It was 9.1 last month. She denies any melena or hematochezia. She c/o heavy vaginal bleeding on her periods, and she is on her period now. I was consulted to perform EGD and colonoscopy to rule out a GI source of her anemia. ROS: General: Denies fever or chills, HENT: No head trauma, EYES: No vision changes, CARDIOVASCULAR: Reports dizziness, reports worsening LE edema, see HPI, RESPIRATORY: No cough, GASTROINTESTINAL: No nausea, vomiting, diarrhea, or constipation, GENITOURINARY: No flank pain, MUSCULOSKELETAL: No pain, INTEGUMENTARY: No rash, lesions, or pruritus, NEURO: No numbness or tingling, PSYCH: No behavior or mood changes. PE: GENERAL: Alert, comfortable, morbidly obese, Appears older than stated age. Answers questions promptly and appropriately. Vital signs noted. HENT: Normocephalic, atraumatic. Hearing intact. EYES: Conjunctiva pink, sclera white, no periorbital swelling. CARDIOVASCULAR: Regular rate. Moderate pedal edema BL RESPIRATORY: Non-tachypneic, breathing comfortably on room air. GASTROINTESTINAL: Abdomen soft, rounded, non tender, no surgical scars; no palpable masses GENITALURINARY: No flank tenderness. MUSCULOSKELETAL: Equal tone and mass bilaterally. SKIN: Warm, dry, soft, appropriate color for ethnicity. No other lesions, rashes, or wounds. NEURO: Alert and Oriented X 3. No gross sensory deficits, or cognitive issues. PSYCH: Appropriate affect and mood. Meds Home Medications and Allergies Home Medications Medication Instructions Recorded Confirmed Type acetaminophen 500 mg tablet 2,000 mg PO BID tab 09/23/18 12/29/19 History blood sugar diagnostic #50 each 12/08/18 12/30/19 Rx blood-glucose meter #1 each 12/08/18 12/30/19 Rx lancets 33 gauge #100 each 12/08/18 12/30/19 Rx TENS units #1 each 02/09/19 12/30/19 Rx omeprazole 20 mg capsule,delayed 20 mg PO BID #180 cap 05/23/19 12/29/19 Rx release magnesium 500 mg PO DAILY 06/29/19 12/29/19 History potassium chloride 20 mEq 20 meq PO DAILY 07/07/19 12/29/19 History tablet,extended release terazosin 5 mg capsule 5 mg PO BEDTIME cap 07/07/19 12/29/19 History albuterol sulfate 2 puff INHALATION Q4-6H PRN #8.5 07/11/19 12/29/19 Rx gram fluticasone propion-salmeterol 1 puff INHALATION BID 07/11/19 12/29/19 History [Advair Diskus] pregabalin 150 mg capsule 150 mg PO BID #60 cap 09/20/19 12/29/19 Rx Compressioin Stockings #1 ea 10/13/19 12/30/19 Rx furosemide 60 mg PO QPM 12/02/19 12/29/19 History furosemide 100 mg PO QAM 12/02/19 12/29/19 History warfarin [Coumadin] 5 mg PO Q OTHER DAY 12/02/19 12/29/19 History warfarin [Coumadin] 10 mg PO Q OTHER DAY 12/02/19 12/29/19 History aripiprazole [Abilify] 5 mg PO BID 12/29/19 12/29/19 History buprenorphine-naloxone [Zubsolv] 1 tab SUBLINGUAL BID 12/29/19 12/29/19 History cyclobenzaprine 10 mg PO BID 12/29/19 12/29/19 History duloxetine 90 mg PO DAILY 12/29/19 12/29/19 History ferrous sulfate [iron] 325 mg PO DAILY #14 tab 12/29/19 Rx levothyroxine 50 mcg PO BEDTIME 12/29/19 12/29/19 History metoprolol tartrate 12.5 mg PO BID 12/29/19 12/29/19 History Allergies Allergy/AdvReac Type Severity Reaction Status Date / Time carisoprodol [CARISOPRODOL] AdvReac Severe urinary Verified 11/08/19 13:27 retention fosphenytoin AdvReac Intermediate ITCHING Verified 11/08/19 13:27 Exam Vital Signs (past 8 hours): - 12/30/19 05:48 12/30/19 07:57 12/30/19 09:01 Temperature 97.9 F 97.3 F L Pulse Rate 91 H 95 H Respiratory Rate 18 16 Blood Pressure 122/65 125/76 Pulse Oximetry 98 98 98 Oxygen Delivery Method Nasal Cannula Oxygen Flow Rate [address] scan - head: Radiologist's impression: [address] [address] [address] Scan Report Signed Patient: Nuvia Alvarado#: [id number] : 1980Acct:[id number] Age/Sex: 39 / FDate of Service: 12/29/19 Loc: ED Accession Number: [id number] Procedure: CT head/brain wo con Ordering Provider: Rachelle Wynne PROCEDURE: CT HEAD/BRAIN WO CON INDICATIONS: Lethargy TECHNIQUE: Noncontrast 4.5 mm thick angled axial sections acquired from the foramen magnum to the vertex, with coronal and sagittal reformats. For radiation dose reduction, the following was used: automated exposure control, adjustment of mA and/or kV according to patient size. COMPARISON: [facility], MR, MR HEAD/BRAIN WO/W CON, 09/19/2019, 15:24. [facility], CT, CT HEAD/BRAIN WO CON, 09/19/2019, 12:21. [facility], CT, CT HEAD/BRAIN WO CON, 02/11/2019, 14:54. FINDINGS: Image quality: Excellent. CSF spaces: Basal cisterns are patent. No extra-axial fluid collections. Ventricles are normal in size and shape. Brain: No midline shift. No intracranial masses or hemorrhage. Wat[place]-white matter interface is normal. Skull and face: Calvarium and visualized facial bones are intact, without suspicious lesions. Sinuses: Visualized sinuses and mastoids are clear. IMPRESSION: No acute intracranial disease process. Dictated by: Patricia Blair MD, PhD on 12/29/2019 at 17:31 Approved by: Patricia Blair MD, PhD on 12/29/2019 at 17:32 Labs Result Diagrams: 12/30/19 05:25 12/30/19 05:25 Labs: Laboratory Results - last 24 hr 12/29/19 12/29/19 12/29/19 14:05 14:05 14:05 WBC 4.8 RBC 3.56 L Hgb 7.8 L Hct 25.7 L MCV 72.0 L MCH 21.8 L MCHC 30.3 RDW 18.2 H Plt Count 222 Neut % (Auto) 68.4 Lymph % (Auto) 19.0 L [place] % (Auto) 9.9 Eos % (Auto) 2.2 Baso % (Auto) 0.5 Neut # (Auto) 3300 Lymph # (Auto) 900 L [place] # (Auto) 500 Eos # (Auto) 100 Baso # (Auto) 0 PT INR ABG pH ABG pCO2 ABG pO2 ABG HCO3 ABG Total CO2 ABG O2 Saturation ABG Base Excess FiO2 Sodium 138 Potassium 3.6 Chloride 101 Carbon Dioxide 35 H BUN 8 Creatinine 0.57 Estimated GFR > 60.0 BUN/Creatinine Ratio 14.0 Glucose 123 H Calcium 8.9 Total Bilirubin 0.5 AST 33 ALT 15 Alkaline Phosphatase 70 Ammonia Total Creatine Kinase 332 H CK-MB (CK-2) 5.94 H CK-MB (CK-2) Rel Index 1.8 Troponin I < 0.012 NT-Pro-B Natriuret Pep 193 H Total Protein 7.0 Albumin 3.9 Globulin 3.1 Albumin/Globulin Ratio 1.3 Vitamin B12 Folate Prolactin U Opiates 300ng/mL cut Ur Oxycodone Screen Urine Methadone Screen Ur Barbiturates Screen U Tricyclic Antidepress Ur Phencyclidine Scrn Ur Amphetamines Screen U Methamphetamines Scrn Ur MDMA Scrn (Ecstasy) U Benzodiazepines Scrn Urine Cocaine Screen U Marijuana (THC) Screen COVID-19 PCR 12/29/19 12/29/19 12/29/19 14:05 14:05 14:05 WBC RBC Hgb Hct MCV MCH MCHC RDW Plt Count Neut % (Auto) Lymph % (Auto) [place] % (Auto) Eos % (Auto) Baso % (Auto) Neut # (Auto) Lymph # (Auto) [place] # (Auto) Eos # (Auto) Baso # (Auto) PT 21.1 H INR 1.9 H ABG pH ABG pCO2 ABG pO2 ABG HCO3 ABG Total CO2 ABG O2 Saturation ABG Base Excess FiO2 Sodium Potassium Chloride Carbon Dioxide BUN Creatinine Estimated GFR BUN/Creatinine Ratio Glucose Calcium Total Bilirubin AST ALT Alkaline Phosphatase Ammonia Total Creatine Kinase CK-MB (CK-2) CK-MB (CK-2) Rel Index Troponin I NT-Pro-B Natriuret Pep Total Protein Albumin Globulin Albumin/Globulin Ratio Vitamin B12 Folate Prolactin U Opiates 300ng/mL cut Ur Oxycodone Screen Urine Methadone Screen Ur Barbiturates Screen U Tricyclic Antidepress Ur Phencyclidine Scrn Ur Amphetamines Screen U Methamphetamines Scrn Ur MDMA Scrn (Ecstasy) U Benzodiazepines Scrn Urine Cocaine Screen U Marijuana (THC) Screen COVID-19 PCR Cancelled Negative 12/29/19 12/29/19 12/29/19 14:05 17:12 17:14 WBC RBC Hgb Hct MCV MCH MCHC RDW Plt Count Neut % (Auto) Lymph % (Auto) [place] % (Auto) Eos % (Auto) Baso % (Auto) Neut # (Auto) Lymph # (Auto) [place] # (Auto) Eos # (Auto) Baso # (Auto) PT INR ABG pH 7.40 ABG pCO2 50.9 H ABG pO2 68 L ABG HCO3 31 H ABG Total CO2 33 H ABG O2 Saturation 93 L ABG Base Excess 6.0 H FiO2 21 Sodium Potassium Chloride Carbon Dioxide BUN Creatinine Estimated GFR BUN/Creatinine Ratio Glucose Calcium Total Bilirubin AST ALT Alkaline Phosphatase Ammonia < 9 L Total Creatine Kinase CK-MB (CK-2) CK-MB (CK-2) Rel Index Troponin I NT-Pro-B Natriuret Pep Total Protein Albumin Globulin Albumin/Globulin Ratio Vitamin B12 531 Folate 9.5 Prolactin U Opiates 300ng/mL cut Ur Oxycodone Screen Urine Methadone Screen Ur Barbiturates Screen U Tricyclic Antidepress Ur Phencyclidine Scrn Ur Amphetamines Screen U Methamphetamines Scrn Ur MDMA Scrn (Ecstasy) U Benzodiazepines Scrn Urine Cocaine Screen U Marijuana (THC) Screen COVID-19 PCR 12/29/19 12/29/19 12/29/19 17:42 18:25 21:10 WBC RBC Hgb 7.7 L Hct 25.6 L MCV MCH MCHC RDW Plt Count Neut % (Auto) Lymph % (Auto) [place] % (Auto) Eos % (Auto) Baso % (Auto) Neut # (Auto) Lymph # (Auto) [place] # (Auto) Eos # (Auto) Baso # (Auto) PT INR ABG pH ABG pCO2 ABG pO2 ABG HCO3 ABG Total CO2 ABG O2 Saturation ABG Base Excess FiO2 Sodium Potassium Chloride Carbon Dioxide BUN Creatinine Estimated GFR BUN/Creatinine Ratio Glucose Calcium Total Bilirubin AST ALT Alkaline Phosphatase Ammonia Total Creatine Kinase CK-MB (CK-2) CK-MB (CK-2) Rel Index Troponin I NT-Pro-B Natriuret Pep Total Protein Albumin Globulin Albumin/Globulin Ratio Vitamin B12 Folate Prolactin 12.7 U Opiates 300ng/mL cut Negative Ur Oxycodone Screen Negative Urine Methadone Screen Negative Ur Barbiturates Screen Negative U Tricyclic Antidepress Positive H Ur Phencyclidine Scrn Negative Ur Amphetamines Screen Negative U Methamphetamines Scrn Negative Ur MDMA Scrn (Ecstasy) Negative U Benzodiazepines Scrn Negative Urine Cocaine Screen Negative U Marijuana (THC) Screen Negative COVID-19 PCR 12/30/19 12/30/19 12/30/19 05:25 05:25 05:25 WBC 5.0 RBC 3.50 L Hgb 7.5 L Hct 25.1 L MCV 71.8 L MCH 21.5 L MCHC 30.0 RDW 18.0 H Plt Count 206 Neut % (Auto) 64.1 Lymph % (Auto) 22.3 L [place] % (Auto) 8.4 Eos % (Auto) 2.5 Baso % (Auto) 2.7 H Neut # (Auto) 3200 Lymph # (Auto) 1100 [place] # (Auto) 400 Eos # (Auto) 100 Baso # (Auto) 100 PT 21.9 H INR 1.9 H ABG pH ABG pCO2 ABG pO2 ABG HCO3 ABG Total CO2 ABG O2 Saturation ABG Base Excess FiO2 Sodium 140 Potassium 4.1 Chloride 107 Carbon Dioxide 32 BUN 9 Creatinine 0.62 Estimated GFR > 60.0 BUN/Creatinine Ratio 14.5 Glucose 112 H Calcium 8.9 Total Bilirubin AST ALT Alkaline Phosphatase Ammonia Total Creatine Kinase CK-MB (CK-2) CK-MB (CK-2) Rel Index Troponin I NT-Pro-B Natriuret Pep Total Protein Albumin Globulin Albumin/Globulin Ratio Vitamin B12 Folate Prolactin U Opiates 300ng/mL cut Ur Oxycodone Screen Urine Methadone Screen Ur Barbiturates Screen U Tricyclic Antidepress Ur Phencyclidine Scrn Ur Amphetamines Screen U Methamphetamines Scrn Ur MDMA Scrn (Ecstasy) U Benzodiazepines Scrn Urine Cocaine Screen U Marijuana (THC) Screen COVID-19 PCR Assessment & Plan Assessment and plan (1) Anemia: Problem details: This is a 39-year-old woman with anemia with hemoglobin of 7.5 on Coumadin for recurrent PEs. She denies melena or hematochezia. EGD and colonoscopy a been requested by her doctor to rule out a GI source of bleeding. This was discussed with the patient who agrees to go ahead with bowel prep today and upper and lower endoscopy tomorrow. Due to her multiple comorbidities and her severe morbid obesity, we will request the anesthesiologist to manage her sedation during the procedure. Plan: Clear liquid diet today, NPO at midnight Bowel prep today with 4 L GoLYTELY, more to be given if needed Hold anticoagulation Ambulate as much as tolerated EGD and colonoscopy scheduled for tomorrow at 9:00 a.m., Dr. Amezcua is technology infusion specialist tomorrow Qualifiers: Anemia type: unspecified type Qualified Code(s): D64.9 - Anemia, unspecified Status: Acute (2) Seizure-like activity: Status: Acute (3) Lethargy: Status: Acute (4) Chest pain: Qualifiers: Chest pain type: unspecified Qualified Code(s): R07.9 - Chest pain, unspecified Status: Acute (5) Abnormal menstrual cycle: Status: Acute (6) Excessive bleeding: Status: Acute (7) Heavy menstrual bleeding: Status: Acute (8) Anticoagulated on warfarin: Status: Acute (9) Psychogenic nonepileptic seizure: Status: Acute (10) Anasarca: Status: Acute (11) Anxiety: Status: Acute (12) DM type 2 (diabetes mellitus, type 2): Status: Acute (13) Alcoholism: Status: Acute (14) DVT (deep venous thrombosis): Status: Acute (15) Narcotic habituation, continuous: Status: Acute (16) LYLA (obstructive sleep apnea): Status: Chronic (17) Essential hypertension: Status: Chronic (18) Asthma: Status: Chronic (19) Morbid obesity: Status: Chronic
--- NOTE | 2019-12-30 13:03 | PT.IIE ---
Current Diagnoses Anemia, unspecified (12/29/19) Type 2 diabetes mellitus without complications (12/29/19) Morbid (severe) obesity due to excess calories (12/29/19) Alcohol dependence, uncomplicated (12/29/19) Opioid dependence, uncomplicated (12/29/19) Anxiety disorder, unspecified (12/29/19) Conversion disorder with seizures or convulsions (12/29/19) Obstructive sleep apnea (adult) (pediatric) (12/29/19) Essential (primary) hypertension (12/29/19) Acute embolism and thrombosis of unspecified deep veins of unspecified lower extremity (12/29/19) Unspecified asthma, uncomplicated (12/29/19) Excessive and frequent menstruation with regular cycle (12/29/19) Irregular menstruation, unspecified (12/29/19) Chest pain, unspecified (12/29/19) Other fatigue (12/29/19) Unspecified convulsions (12/29/19) Hemorrhage, not elsewhere classified (12/29/19) Generalized edema (12/29/19) MCC (current) use of anticoagulants (12/29/19) Surgery Performed Operation Date: 12/31/19 09:00 <No data on this case meets the specified criteria> Surgical History (Last Reviewed 12/30/19 @ 12:10 by Dolores Hernandez MD) History of carpal tunnel repair (Resolved 10/30/14) S/P epidural steroid injection (Resolved 11/2013) Status post dilation and curettage (Resolved 2008) Status post laminectomy (Resolved 09/2016) Medical History (Last Reviewed 12/30/19 @ 12:10 by Dolores Hernandez MD) Acetaminophen overdose of undetermined intent (Resolved 12/2015) Alcoholism (Acute) Asthma (Chronic) Cubital tunnel syndrome (Chronic) Depression (Chronic 02/08/14) DM type 2 (diabetes mellitus, type 2) (Acute) DVT (deep venous thrombosis) (Acute) Essential hypertension (Chronic) Fibromyalgia (Chronic 03/02/15) Intraoperative cardiac arrest during non-cardiac surgery (Resolved 11/2013) 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 (Chronic) Morbid obesity (Chronic) Narcotic habituation, continuous (Acute) Obstipation (Inactive) LYLA (obstructive sleep apnea) (Chronic) Ovarian cyst (Chronic) Plantar fasciitis (Chronic) Psychogenic nonepileptic seizure (Acute) Pulmonary embolism (Acute) Status post laminectomy (Inactive 12/14/15) Suicide attempt (Resolved) Tylenol overdose (Resolved) Urinary retention (Acute) Physical Therapy Inpatient Evaluation/Re-Eval M1 PT/OT-IP Prior Functional Status Start: 12/30/19 08:23 Freq: NEEDED Status: Active Protocol: Document 12/30/19 12:30 HH (Rec: 12/30/19 13:03 HH [id number]) Medical Review Prior Functional Status Medical History Reviewed Yes Diet/Fluid Consistency Regular Communication no deficits noted. Mobility and Gait pt is basically homebound but is able to mobilize without using AD. She has limited trunk mobility d/t previous lumbar fusion from last year. She stated she has difficulty for bend over activities. She needs assistance from to pull her pants up and shelli/ doff shoes. Activities of Daily Living and IADL's She is mod I for ADLs. She does need assistance from to pull her pants up and shelli/doff shoes d/t back pain. does cooking and grocery shopping but she is able to some house cleaning as well. 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 Pt tends to have his help during daytime but less mobile during nighttime. Pt does not drive anymore since she falls asleep very easily. She does have a CPAP but she doesnt like to use it. Social History Household Members spouse,significant other Number of Floors (Floors) Two Floors Number of Stairs To Enter/Railing? 2 EJ for garage entrance and use door for support. 2 EJ for front entrance Home Environment Standard Height Toilet Home Equipment Front Wheel Walker,Shower Seat without Backrest,Hand Held Shower,Grab Bars In Shower Employment Status Unemployed Additional Social History Comment This is a 39 yo woman lives in [facility] with . He works from 5pm to 4am so pt tends to get help if needed during daytime but less mobile during night time. PMH with complex medical history including severe morbid obesity (BMI 48), chronic pain , recurrent PE's on coumadin anticoaguation with INR 2.1 in the ER, seizure-like activity , psychiatric diagnoses, excessive menstrual bleeding, DM2, anxiety, LYLA, narcotic use, HTN, asthma, depression, fibromyalgia, pulonary htn, constipation, GERD, M2 PT-IP Current Condition Start: 12/30/19 08:23 Freq: NEEDED Status: Active Protocol: Document 12/30/19 12:30 HH (Rec: 12/30/19 13:03 [id number]) Physical Therapy Current Condition Current Condition Evaluation Date 12/30/19 Treatment Diagnosis Anemia, dizziness, difficulty in walking, generalized weakness Onset Date few days ago Weight Bearing Status Weight Bearing Status Full Weight Bearing M3 PT-IP Subjective Start: 12/30/19 08:23 Freq: NEEDED Status: Active Protocol: Document 12/30/19 12:30 HH (Rec: 12/30/19 13:03 [id number]) Subjective Physical Therapy Visit Type Type Initial Evaluation Visit Start Time 10:55 Visit Stop Time 11:20 Total Visit Minutes 25 Notes RBC 3.5L , Hgb 7.5L, Hct 25.1L . EGD and colonoscopy a been requested by her doctor to rule out a GI source of bleeding Number of COMPUTER APPLICATION DEVELOPER Visits 0 Physical Therapy Visit Comments Patient Comments Pt just returned to bed from bathroom with [employer] SBA Patient Goals To regain her balance, strength and endurance. M4 PT-IP Mobility and Gait Start: 12/30/19 08:23 Freq: NEEDED Status: Active Protocol: Document 12/30/19 12:30 HH (Rec: 12/30/19 13:03 [id number]) PT-Bed Mobility Assessment Rolling Type of Rolling Roll to Left Level of Assist Contact Guard Assistance Supine to Sit Supine to Sit Contact Guard Assistance PT-Transfer Assessment Sit to and From Stand Sit to and from Stand Standby Assistance,Use of Upper Extremities Equipment Transfer Assistive Device Gait Belt Orthotic/Prosthetic Devices or Brace: No Transfers Transfer Destination Bed,Chair Transfer Technique Stand Step Pivot Transfer Ability Level of Assist Standby Assistance Comments Mobility Comments Pt was awake in bed upon PT arrival. Able to answer all questions and appeared to be AxOx4. She stated that multiple times that she tends to feel very sleepy and possibly fall asleep during conversation. BP at 115/64 in supine with 2L O2 at 92% SpO2 HR 92 at rest. Pt then completed rolling to left and SL to sit slowly CGA. Pt's SpO2 at 94%. proceed to remove NC. Pt then stood up with UEs pushed off from bed and SpO2 stayed at 96%. She was able to amb with pt around the room initially but noticed with an antalgic gait for R foot. She explained thats her normal gait and does not feel unbalanced. Pt was able to amb 1 lap of [facility] with CGA and she felt like she is at baseline in terms of mobility. Pt did not show any LOB and dizziness. She then returned to room and sat back to chair comfortably with SBA. SpO2 at 96% without NC HR 132. Call light placed within reach. Gait Assessment Gait Gait Assistance Required: Contact Guard Assist Distance (Feet) 240 Able to Maintain Weight Bearing Status Yes During Gait Assistive Devices Assistive Device None,Gait Belt Orthotic/Prosthetic Devices or Brace: No Gait Deviations General Gait Pattern Antalgic,Decreased Stride Length,Decreased Feet Clearance Factors Limiting Gait Function Factors Limiting Gait Function Decreased Activity Tolerance, Decreased Strength,Limited Range of Motion,Pain, Respiratory Distress Comments Gait Comments check mobility comments Stair Climbing Assessment Comments Stair Climbing Comments Attempted stair climbing / platform step but pt stated she did not feel strong enough to complete it at this point. PT-Balance Assessment Sitting Balance and Reactions Static Sitting Balance Ability Normal Dynamic Sitting Balance Ability Normal Standing Balance and Reactions Static Standing Balance Ability Normal Dynamic Standing Balance Ability Good Device Used none M5 PT-IP Objective Assessments Start: 12/30/19 08:23 Freq: NEEDED Status: Active Protocol: Document 12/30/19 12:30 HH (Rec: 12/30/19 13:03 [id number]) Orientation Orientation/Cognition Level of Alertness Alert Orientation Name,Age,Birthday,Month,Date, Year,Day of Week,Place, Situation Language Function Ability No Deficits Noted Safety Awareness Understands Safety Issues Memory Description No Deficits Noted Comments Pt appeared to have droopy eyes but was able to maintain conversation and alertness during the whole session. Gross Range of Motion Upper Extremity ROM Assessment Within Functional Limits Lower Extremity ROM Assessment Right Impaired Strength Upper Extremity Strength Assessment Within Functional Limits Lower Extremity Strength Assessment Within Functional Limits Coordination Assessment Gross Coordination Gross Coordination WNL Sensation Assessment Sensation Gross Sensation WNL Muscle Tone Muscle Tone WNL Yes Other Assessments Other Other Assessments saccade, pursuit, coordination , VOR screening test did not reproduce dizziness symptoms M6 PT-IP Treatment Start: 12/30/19 08:23 Freq: NEEDED Status: Active Protocol: Document 12/30/19 12:30 HH (Rec: 12/30/19 13:03 [id number]) Physical Therapy Treatment Education Education Provided Safety M7 PT-IP Assessment and Plan Start: 12/30/19 08:23 Freq: NEEDED Status: Active Protocol: Document 12/30/19 12:30 (Rec: 12/30/19 13:03 [id number]) PT Summary Assessment and Plan Potential Rehabilitation Potential Good Status of Condition at Evaluation Evolving Summary Impairments Pain,ROM,Strength,Balance, Cognition,Bed Mobility, Transfers,Gait,Activity Tolerance Assessment Summary This is a low complexity mobility evaluation for this 39 yo woman admitted to ER with ongiong dizziness and anemia. H& H this morning = RBC 3.5L , Hgb 7.5L, Hct 25.1L . Pt with complex medical history including severe morbid obesity (BMI 48), chronic pain, recurrent PE's on coumadin anticoaguation with INR 2.1 in the ER, seizure-like activity, psychiatric diagnoses, excessive menstrual bleeding, DM2, anxiety, LYLA, narcotic use, HTN, asthma, depression, fibromyalgia, pulonary htn, constipation, GERD. Upon assessment, pt was A x O4 and able to stable alert and appropriate for all questions asked. She was able to carry conversation clearly and completed therapy tasks during the whole session. Pt did fairly well with overall CGA for all mobility and there's no signs of LOB or dizziness. Pt's vision and vestibular assessment seem to be intact. This might be an anemic related dizziness. Pt is somewhat baseline at this point. She will be able to d/c home with assistance once she is medically stable and complete stair climbing. EGD and colonoscopy have been requested by her doctor to rule out a GI source of bleeding. Goals Bed Mobility Goal Standby Assistance Transfer Goal Standby Assistance Gait Goal Standby Assistance Gait Distance 300 Other Goals 2 EJ without AD I Days to Meet Goals 3 Frequency of Treatment Frequency Of Treatment Once a Day Treatment Plan Physical Therapy Treatment Plan Bed Mobility Training,Transfer Training,Gait Training, Therapeutic Exercise,Balance Retraining,Discharge Planning, Hot or Cold Pack,Neuromuscular Re-ed Other Recommendations and Next Treatment check vitals Focus mobility as [place] w/o AD 2 EJ without AD pt might need CG if she has difficulty completing steps Recommendations To Nursing Amount of Assist Needed Standby Assistance Discharge Recommendations PT Discharge Recommendations Home with Assistance Transportation Needs at Discharge Private Vehicle
[2019-12-30] MEDS: ALPRAZolam 0.25 MG TABLET PO (14:34)
--- NOTE | 2019-12-30 14:46 | CM.DANOTE ---
Discharge Planning/Care Management DCP: assessment: case received, EMR reviewed and met briefly now with pt. Introduced self and role. Pt was getting ready to go for an MRI and then when she returns to her room RN Marisabel Lloyd confirms that she will start in on on her bowel prep. EGD and colonoscopy are planned tomorrow with one of [facility] providers. Pt is a 39 year old female who admitted last evening to care of [facility] providers. PCP: Dr. Lynch Payer: Healthcare Management Pt is noted to have a multitude of medical and psychiatric co-morbidities. She is under the BHIP plan at [facility] and sees [facility] Amanda Adame. She carries diagnoses of morbid obesity and chronic pain. She has been to the diabetic program. PT was ordered and pt worked with PT Pradip today. She is essentially homebound and gets some ADL assist from her , per Pradip's notes. Full dx and tx plan are in process. Will check in tomorrow and follow up accordingly for d/c issues and options. CM Discharge Assessment Start: 12/30/19 14:43 Freq: Status: Active Protocol: Document 12/30/19 14:44 ITV (Rec: 12/30/19 14:46 ITV [id number]) Discharge Planning Assessment Advance Directives? No History Provided By Patient,Medical Record Has Patient been admitted in last 30 Yes days? Comment was here 12/01 with a d/c that same day. Household Members spouse Is patient alert and oriented? Yes Whiteboard Updated in Patient Room with Yes name and ext. # of Shuttle Threader Review Status In Process
--- NOTE | 2019-12-30 16:59 | PC.NURSE ---
1520-Pt had blood and clots in hat. Asked if pt was on her period and she replied Yes.
[2019-12-30] MEDS: FUROSEMIDE 20 MG TABLET 60 MG PO (17:08)
[2019-12-30] MEDS: PEG3350/SOD SULF,BICARB,CL/KCL 4,000 ML SOLUTION 4000 ML PO (17:13)
[2019-12-30] MEDS: ONDANSETRON 4 MG/2 ML INJ (20:02)
[2019-12-30] MEDS: LEVOTHYROXINE 50 MCG TABLET PO (21:07)
[2019-12-30] MEDS: TERAZOSIN 5 MG CAPSULE PO (21:07)
[2019-12-30] MEDS: ALBUTEROL HFA 200 PUFF/18 GM INH (COVID POS/VENT PTS) INH (22:00)
[2019-12-31] VITALS (18 sets, daily range): BP systolic 104–151; BP diastolic 6–88; PULSE 76–111; RESP 15–20; TEMP 36.1–36.8; O2SAT 92–98
[2019-12-31 07:33] LABS: Add Manual Diff / Slide Review NO; Basophils Absolute Auto 0 /uL (0-100); Basophils Percent Auto 0.5 % (0-2); Eosinophils Absolute Auto 100 /uL (0-450); Hematocrit 24.3 % (36-46); Hemoglobin 7.2 g/dL (12.0-16.0); Lymphocytes Absolute Auto 1000 /uL (1100-4500); Lymphocytes Percent Auto 18.3 % (25-40); Mean Corpuscular HGB Conc 29.8 % (30-36); Mean Corpuscular Hemoglobin 21.5 PG (26-34); Monocytes Absolute Auto 500 /uL (0-900); Monocytes Percent Auto 8.8 % (3-14); Neutrophils Absolute Auto 3900 /uL (1500-7000); Neutrophils Percent Auto 71.4 % (50-75); Platelet Count 209 X10^3/uL (150-400); Red Blood Cell Count 3.37 X10^6/uL (4.0-5.2); Red Cell Distribution Width 17.9 % (11.6-14.8); White Blood Cell Count 5.4 X10^3/uL (4.5-11.0)
[2019-12-31 07:40] LABS: INR 1.8 (0.9-1.3)
[2019-12-31 07:44] LABS: BUN Creatinine Ratio 9.3 (6-22); Blood Urea Nitrogen 5 mg/dL (7-17); Calcium 8.7 mg/dL (8.4-10.2); Carbon Dioxide 31 mmol/L (22-32); Chloride 105 mmol/L (98-107); Estimated Glomerular Filt Rate > 60.0 mL/min (>60); Glucose 101 mg/dL (70-100); HEMOLYSIS < 15 (0-50); Potassium 3.7 mmol/L (3.4-5.1); Sodium 140 mmol/L (137-145)
[2019-12-31] MEDS: METOPROLOL IR 25 MG TABLET 12.5 MG PO (08:41)
--- NOTE | 2019-12-31 08:45 | PM.PN.1 ---
Subjective Subjective Date Patient Seen: 12/31/19 Time Patient Seen: 08:45 Interval history: Patient feels better this morning. Just returned from her EGD/colonoscopy. Has had no further pseudoseizures overnight. Would like to go home. Has been able to tolerate some solid food since her scopes, no nausea or vomiting. She continues to feel weak, but much improved from yesterday. Denies any chest or shortness of breath. Exam Vital Signs (past 8 hours): - 12/31/19 05:00 Temperature 97.4 F L Pulse Rate 89 Respiratory Rate 18 Blood Pressure 104/66 Pulse Oximetry 95 Oxygen Delivery Method Room Air Oxygen Flow Rate 0 Narrative Exam Narrative: GENERAL: Alert and oriented, appearing stated age and in no acute distress, pale. HEENT: Head normocephalic/atraumatic. Pupils equal, round, and reactive to light and accomodation. Extraocular muscles intact. Tympanic membranes clear. Nasal mucosa moist, septum midline. Oral mucosa moist, no lesions. Neck soft and supple, no lymphadenopathy. LUNGS: Clear to ausculation bilaterally, no wheezes, rhonchi or rales. CV: Normal S1 and S2 with regular rate and rhythm, no audible murmurs, rubs or gallops. ABDOMEN: Soft, non-tender, non-distended, no organomegaly. Positive bowel sounds. EXTREMITIES: No clubbing, cyanosis, or edema. NEURO: Cranial nerves II through XII grossly intact, no focal deficits. PSYCH: Alert and oriented x 3. SKIN: No concerning lesions. Objective Labs Result Diagrams: 12/31/19 11:44 12/31/19 07:25 Labs: Laboratory Results - last 24 hr 12/31/19 12/31/19 12/31/19 07:25 07:25 07:25 WBC 5.4 RBC 3.37 L Hgb 7.2 L Hct 24.3 L MCV 72.0 L MCH 21.5 L MCHC 29.8 L RDW 17.9 H Plt Count 209 Neut % (Auto) 71.4 Lymph % (Auto) 18.3 L [place] % (Auto) 8.8 Eos % (Auto) 1.0 L Baso % (Auto) 0.5 Neut # (Auto) 3900 Lymph # (Auto) 1000 L [place] # (Auto) 500 Eos # (Auto) 100 Baso # (Auto) 0 PT 21.0 H INR 1.8 H Sodium 140 Potassium 3.7 Chloride 105 Carbon Dioxide 31 BUN 5 L Creatinine 0.54 Estimated GFR > 60.0 BUN/Creatinine Ratio 9.3 Glucose 101 H Calcium 8.7 Assessment & Plan Assessment & Plan narrative: 1. Anemia, microcytic/microchronic HD #2 -Admission hemoglobin/hematocrit of 7.5/25.1. -On Coumadin for recurrent PEs, INR 1.9 on admission, 1.8 today. -B12/folate WNL on admission. -History of iron deficiency anemia and menorrhagia. -Currently menstruating. -BUN notably negative on admission. PLAN: EGD/colonscopy today to rule out GI source of bleeding Will potentially restart anticoagulation after endoscopy results return. Will get iron studies today to rule out iron-deficiency anemia. May be a candidate for IV iron. UPDATE: Iron studies confirm a severe iron deficiency anemia. EGD/colonoscopy significant only for diverticulosis; no source of bleeding found. Patient is feeling much better this morning and desires to go home. Will give her 1 dose of venofer, 200 mg IV prior to discharge and set for up for 4 additional doses over the next 2 weeks in the infusion clinic. Will restart coumadin as no biopsies were taken. Will need INR check at her inpatient follow-up. 2. Pseudogenic seizures, acute on chronic with acute dizziness, improved. -Pattern is that patient goes out and is unresponsive then wakes up and is fine. -Previous workup with [facility] neurology, diagnosed as pseduogenic. -CT head on admission negative. -Prolactin negative. -Episode in ED but patient did respond to painful stimuli, had a postive corneal reflex, and would not drop her arm on her face when unresponsive. PLAN: Will watch closely. Patient is followed by psychiatry and psychology outpatient setting, will ensure that she has close follow-up. 3. Lethargy, acute, likely secondary to #1. Plan: Please see #1. 4. Elevated CK and CK-MB, acute -Troponin I negative in ED, <0.012 -EKG showed NSR with a rate of 84, no ST elevation or depression. RBB noted (not new). -History of intraoperative OH during non-cardiac surgery. -Admission history of falling asleep on the toilet for 2 hours. PLAN: Suspicion for OH is low but need to rule out. Will repeat troponin I and EKG and trend CK, CK-MB. Suspect that her levels are elevated due to muscle breakdown from recent inactivity (2 hours on the toilet) and pseudoseizures. UDPATE: Repeat CK, CK-MB trending down substantially. Troponin I negative x 2. EKG shows no new changes. 5. History of PE x2 and DVT -anticoagulated on warfaring, INR 1.9 on admission, 1.8 today. PLAN: Holding warfarin while awaiting endoscopy results to ensure patient does not have a GI bleed. UPDATE: Will restart warfarin now. 6. Anxiety and Depression, chronic -Psychiatry and psychology consulting in the outpatient setting. PLAN: Will continue home duloxetine and ensure close outpatient follow-up. Certainly, this is complicating patient's underlying issue which is likely due to iron-deficiency anemia. 7. DM type 2, chronic, diet controlled. PLAN: diabetic diet. 8. Hypertension, chronic. PLAN: continue home furosemide, metoprolol, and terazosin. 9. Hypothyroidism, chronic PLAN: Will update TSH and continue home levothyroxine. 10. LYLA, chronic PLAN: CPAP. 11. Asthma, chronic -CXR showed an alveolar edema patterns with no acute changes. PLAN: Continue home Advair and albuterol. 12. Tobacco dependence, chronic PLAN: Nicoderm patches. 13. Alcohol dependence, chronic PLAN: Patient will be discharging today, [facility] protocol not necessary. 14. Fibromyalgia, chronic PLAN: Continue home lyrica and cyclobenzaprine. 15. Chronic pain syndrome PLAN: Continue buprenorphine-naloxone, 16. Morbid obesity, chronic PLAN: Advised low caloried diet and exercise most days of the week. Discussed how obesity increases the severity of her comorbidities including hypertension, diabetetes, chronic pain, etc. 17. Anasarca, chronic PLAN: Continue home furosemide. On chronic magnesium and potassium replacement, will continue. Will trend electrolytes. DVT prophylaxis: SCDs. GI prophylaxis: home omeprazole 20 mg p.o. b.i.d. Disposition: Discharge to home today after iron infusion. Quality VTE Deep Vein Thrombosis/Pulmonary Embolism Present on Admission: No
--- NOTE | 2019-12-31 08:54 | PC.NURSE ---
Addendum entered by Cherri Lim R.N. 12/31/19 14:46: Patient is going to discharge home, getting an iron infusion at this time and then will be able to go home. Addendum entered by Cherri Lim R.N. 12/31/19 11:17: Patient back from procedure of colonoscopy. She had to have an ET tube down her throat with all her comorbidity dx. After colonscopy done, patients sats dropped to 60s. Put on 10l simple mask and slowly recovered. She is now on 4l and sats are high 90s. She is a&Ox3 and tolerating some ice chips. Addendum entered by Cherri Lim R.N. 12/31/19 10:39: Patient down to surgery around 0830. Original Note: Patient is A&Ox3, she is not sleepy. Conversations are appropriate. VSS. Patient just left for her Colonoscopy. Her Metoprolol given and BS will be checked and down in recovery.
[2019-12-31] MEDS: LACTATED RINGERS 1,000 ML 42 ML IV (09:00)
--- NOTE | 2019-12-31 09:29 | PM.OP.ENDO ---
Operative Date/Time/Diagnoses Date of procedure: 12/31/19 Time of procedure: 09:29 Pre-op diagnosis: Anemia Post-op diagnosis: same Procedure & Clinicians Study performed: Esophagoduodenoscopy Colonoscopy Same procedure as scheduled: Yes Indications: 39-year-old woman with anemia here for a diagnostic EGD colonoscopy Surgeon: Roque Amezcua Procedure Notes SCOAP/Timeout: performed Procedure in detail: Patient placed supine.. Time out was performed. Patient was intubated with an endotracheal tube by anesthesia. The. scope was inserted into the mouth and advanced through the esophagus and into the stomach. The pylorus was intubated and the duodenum was normal to the 2nd portion. The scope was retroflexed within the stomach and there was a small hiatal hernia. No ulcers, or gastritis. The scope was withdrawn into the esophagus the Z line was seen at 40 cm from the incisions. There was no buck's esophagitis or masses or strictures. Stomach was desufflated and scope removed. Patient tolerated procedure well. Patient placed in left lateral recumbent position. Time out was performed. Procedural sedation was administered with Versed and Fentanyl. Examination began with a thorough inspection of the perianal area there was no evidence of fissures, fistulae, external hemorrhoids or cutaneous malignancy. The colonoscopy scope was then placed into the rectum the the lumen was insufflated with air. The scope was carefully advanced forward. Ultimately the cecum was intubated and confirmed by identification of the ileocecal valve and the confluence of the taenia. The scope was then slowly withdrawn examining colon thoroughly in all directions. In the rectum the rectal columns were identified and retroflexion of the scope was performed for inspection of the distal rectum and anal canal. The colonoscopy was notable for the followin. Quality of the preparation-fair 2. No evidence of GI bleed 3. No masses or polyps 4 sigmoid diverticulosis Scope withdrawal time: 6 Findings: diverticulosis Specimen(s): none sent Complications: none Impression: Normal EGD and colonoscopy Post-procedure Disposition: Acute Care
--- NOTE | 2019-12-31 09:33 | PM.PN.1 ---
Subjective Subjective Date Patient Seen: 12/31/19 Time Patient Seen: 09:33 Interval history: No acute events. Had a colonoscopy and EGD this morning no evidence of hemorrhage. Exam Vital Signs (past 8 hours): - 12/31/19 05:00 12/31/19 07:45 12/31/19 08:58 Temperature 97.4 F L 97.9 F Pulse Rate 89 91 H 88 Respiratory Rate 18 16 16 Blood Pressure 104/66 123/75 129/86 Pulse Oximetry 95 95 95 Oxygen Delivery Method Room Air Oxygen Flow Rate 0 Narrative Exam Narrative: General adult female alert oriented no acute distress morbidly obese Abdomen nontender Objective Labs Result Diagrams: 12/31/19 07:25 12/31/19 07:25 Labs: Laboratory Results - last 24 hr 12/31/19 12/31/19 12/31/19 07:25 07:25 07:25 WBC 5.4 RBC 3.37 L Hgb 7.2 L Hct 24.3 L MCV 72.0 L MCH 21.5 L MCHC 29.8 L RDW 17.9 H Plt Count 209 Neut % (Auto) 71.4 Lymph % (Auto) 18.3 L [place] % (Auto) 8.8 Eos % (Auto) 1.0 L Baso % (Auto) 0.5 Neut # (Auto) 3900 Lymph # (Auto) 1000 L [place] # (Auto) 500 Eos # (Auto) 100 Baso # (Auto) 0 PT 21.0 H INR 1.8 H Sodium 140 Potassium 3.7 Chloride 105 Carbon Dioxide 31 BUN 5 L Creatinine 0.54 Estimated GFR > 60.0 BUN/Creatinine Ratio 9.3 Glucose 101 H Calcium 8.7 Assessment & Plan Assessment & Plan narrative: 39-year-old woman admitted to the hospital with anemia no evidence of GI bleed. The colonoscopy and EGD were performed this morning both normal, no evidence of GI bleed. Will sign off, call with questions. Quality VTE Deep Vein Thrombosis/Pulmonary Embolism Present on Admission: No
[2019-12-31] MEDS: ALBUTEROL 2.5 MG/3 ML NEB (ADULT) INH (09:56)
[2019-12-31] MEDS: ALBUTEROL/IPRATROPIUM 3 ML AMPUL INH (09:59)
--- NOTE | 2019-12-31 10:05 | SUR.PHASEI ---
0949 patient to PACU with anesthesia and OR nurse. . Suction available to suction out oral secretions. Albuterol neb in progress. Oral airway removed. Lungs noted to have rhonchi bilaterally on auscultation. Oxygen saturation 95% on 10 liters via simple face mask and albuterol neb.
--- NOTE | 2019-12-31 10:07 | SUR.PHASEI ---
1000 Duoneb ordered and administered. Oxygen saturation 95% on 10 liters via simple face mask.
--- NOTE | 2019-12-31 10:11 | SUR.PHASEI ---
Patient responsive to voice and denies any SOB. States that her throat is sore but is in no respiratory distress. Oxygen saturation 97% on 10 liters via simple face mask. This nurse will titrate oxygen delivery downward and reassess saturation.
--- NOTE | 2019-12-31 10:27 | SUR.PHASEI ---
Transitioned patient from simple face mask at 4 liters to nasal cannula at 4 liters. Patient continues to deny SOB or pain at this time.
[2019-12-31 11:53] LABS: Hematocrit 24.3 % (36-46); Hemoglobin 7.2 g/dL (12.0-16.0); Mean Corpuscular HGB Conc 29.5 % (30-36); Mean Corpuscular Hemoglobin 21.4 PG (26-34); Mean Corpuscular Volume 72.6 fL (80-100); Platelet Count 216 X10^3/uL (150-400); Red Blood Cell Count 3.34 X10^6/uL (4.0-5.2); Red Cell Distribution Width 17.6 % (11.6-14.8); White Blood Cell Count 5.9 X10^3/uL (4.5-11.0)
[2019-12-31 12:03] LABS: Reticulocyte Count, Percent 3.1 % (1.06-2.63)
[2019-12-31 12:16] LABS: Creatine Kinase 211 U/L (30-135)
[2019-12-31 12:29] LABS: Troponin I < 0.012 ng/mL (0.01-0.034)
[2019-12-31 12:32] LABS: CKMB % Relative Index 1.8 % (1.5-5.0); Creatine Kinase MB 3.76 ng/mL (<2.37)
[2019-12-31 12:36] LABS: Iron 27 ug/dL (37-170)
[2019-12-31 12:45] LABS: Total Iron Binding Capacity 364 ug/dL (265-497)
[2019-12-31 12:53] LABS: Ferritin 10 ng/mL (6-137)
--- NOTE | 2019-12-31 12:54 | CM.DPC ---
Addendum entered by Arianne Ely LPN 12/31/19 13:02: Checked in with pt now. She is found sitting up in bedside chair, partner Morgan at bedside. Looking comfortable. She says she is relieved with the findings from her procedures and says she hopes that she can go home today. She has expressed this to Dr. Rodrigez, who will be returning later today. She confirms that Morgan will be taking her home. P: home when stable for same. Original Note: DCP: continued: pt has been in surgery today for colonoscopy and EGD with Dr. Amezcua. He has now confirmed no signs of GI bleed and surgery has signed off of case. Spoke then with Dr. Nguyen who is seeing pt this weekend. She stated she would be back later to see pt but that she expected pt would likely need to stay here until tomorrow. Will check in with pt and be following prn.
[2019-12-31] MEDS: PREGABALIN 75 MG CAPSULE 150 MG PO (12:56)
[2019-12-31] MEDS: CYCLOBENZAPRINE 10 MG TABLET PO (12:56)
[2019-12-31] MEDS: DULOXETINE 30 MG CAPSULE 90 MG PO (12:56)
[2019-12-31] MEDS: ACETAMINOPHEN 325 MG TABLET 975 MG PO (12:56)
[2019-12-31] MEDS: POTASSIUM CHLORIDE 20 MEQ TAB PO (12:56)
[2019-12-31] MEDS: FUROSEMIDE 40 MG TABLET 100 MG PO (12:56)
[2019-12-31] MEDS: ARIPiprazole 10 MG TABLET 5 MG PO (12:57)
[2019-12-31] MEDS: MAGNESIUM OXIDE 400 MG TABLET PO (12:57)
[2019-12-31] MEDS: PANTOPRAZOLE 20 MG TABLET PO (12:59)
[2019-12-31 13:09] LABS: TSH w/ Reflex to FT4 0.88 uIU/mL (0.47-4.68)
[2019-12-31] MEDS: FLUTICASONE/SALMETEROL 100/50 60 PUFF DISKUS INH (13:19)
--- NOTE | 2019-12-31 13:29 | PT.IPTN ---
Current Diagnoses Anemia, unspecified (12/29/19) Type 2 diabetes mellitus without complications (12/29/19) Morbid (severe) obesity due to excess calories (12/29/19) Alcohol dependence, uncomplicated (12/29/19) Opioid dependence, uncomplicated (12/29/19) Anxiety disorder, unspecified (12/29/19) Conversion disorder with seizures or convulsions (12/29/19) Obstructive sleep apnea (adult) (pediatric) (12/29/19) Essential (primary) hypertension (12/29/19) Acute embolism and thrombosis of unspecified deep veins of unspecified lower extremity (12/29/19) Unspecified asthma, uncomplicated (12/29/19) Excessive and frequent menstruation with regular cycle (12/29/19) Irregular menstruation, unspecified (12/29/19) Chest pain, unspecified (12/29/19) Other fatigue (12/29/19) Unspecified convulsions (12/29/19) Hemorrhage, not elsewhere classified (12/29/19) Generalized edema (12/29/19) longterm (current) use of anticoagulants (12/29/19) Surgery Performed Operation Date: 12/31/19 09:00 Actual Procedures p Esophagogastroduodenoscopy - Roque Amezcua MD s Colonoscopy - Roque Amezcua MD Physical Therapy Treatment Note M2 PT-IP Current Condition Start: 12/30/19 08:23 Freq: NEEDED Status: Active Protocol: Document 12/30/19 12:30 HH (Rec: 12/30/19 13:03 HH [id number]) Physical Therapy Current Condition Current Condition Evaluation Date 12/30/19 Treatment Diagnosis Anemia, dizziness, difficulty in walking, generalized weakness Onset Date few days ago Weight Bearing Status Weight Bearing Status Full Weight Bearing M3 PT-IP Subjective Start: 12/30/19 08:23 Freq: NEEDED Status: Active Protocol: Document 12/31/19 12:34 LJ (Rec: 12/31/19 13:28 LJ [id number]) Subjective Physical Therapy Visit Type Type Treatment Note Visit Start Time 12:34 Visit Stop Time 12:59 Total Visit Minutes 25 Notes Pt willing to work with PT Physical Therapy Visit Comments Patient Comments Pt had preceedure earlier and feels well enough to walk in the hallway and do stairs M4 PT-IP Mobility and Gait Start: 12/30/19 08:23 Freq: NEEDED Status: Active Protocol: Document 12/31/19 12:34 LJ (Rec: 12/31/19 13:28 LJ [id number]) PT-Transfer Assessment Sit to and From Stand Sit to and from Stand Standby Assistance,Use of Upper Extremities Equipment Transfer Assistive Device Gait Belt Orthotic/Prosthetic Devices or Brace: No Transfers Transfer Destination Chair Transfer Technique Stand Step Pivot Transfer Ability Level of Assist Standby Assistance Comments Mobility Comments Pt sitting in the chair upon arrival. Sit<>stand SBA using UEs to push off chair and lower self on returning. Pt ambulated in hallway from room to stairs ~250' with occasional hand on railing. Pt experienced one slight LOB just outside her room. Stated she was feeling dizzy all of the sudden and needed a standing rest break for about 20 seconds. Pt returned to room CGA holding IV pole and sat in the chair. Stated she was feeling ok and no longer dizzy. Gait Assessment Gait Gait Assistance Required: Standby Assistance,Contact Guard Assist Distance (Feet) 250 Able to Maintain Weight Bearing Status Yes During Gait Assistive Devices Assistive Device None,Gait Belt Orthotic/Prosthetic Devices or Brace: No Gait Deviations General Gait Pattern Antalgic,Decreased Stride Length,Decreased Feet Clearance Factors Limiting Gait Function Factors Limiting Gait Function Decreased Activity Tolerance, Decreased Strength,Limited Range of Motion,Pain Comments Gait Comments see mobility comments Stair Climbing Assessment Evaluation Level of Assist On Stairs Contact Guard Assistance Devices Stair Climbing Assistive Devices Right Railing Technique/Endurance Stair Climbing Direction Ascend and Descend Stair Climbing Technique Step to Step Number of Steps Climbed 3 Stair Climbing Set # Repetitions (reps) 2 Comments Stair Climbing Comments Pt completed stairs x2 without increase in pain or fatigue. No respiratory distress experienced during stair trial . M5 PT-IP Objective Assessments Start: 12/30/19 08:23 Freq: NEEDED Status: Active Protocol: Document 12/30/19 12:30 HH (Rec: 12/30/19 13:03 HH [id number]) Orientation Orientation/Cognition Level of Alertness Alert Orientation Name,Age,Birthday,Month,Date, Year,Day of Week,Place, Situation Language Function Ability No Deficits Noted Safety Awareness Understands Safety Issues Memory Description No Deficits Noted Comments Pt appeared to have droopy eyes but was able to maintain conversation and alertness during the whole session. Gross Range of Motion Upper Extremity ROM Assessment Within Functional Limits Lower Extremity ROM Assessment Right Impaired Strength Upper Extremity Strength Assessment Within Functional Limits Lower Extremity Strength Assessment Within Functional Limits Coordination Assessment Gross Coordination Gross Coordination WNL Sensation Assessment Sensation Gross Sensation WNL Muscle Tone Muscle Tone WNL Yes Other Assessments Other Other Assessments saccade, pursuit, coordination , VOR screening test did not reproduce dizziness symptoms M6 PT-IP Treatment Start: 12/30/19 08:23 Freq: NEEDED Status: Active Protocol: Document 12/31/19 13:28 (Rec: 12/31/19 13:29 [id number]) Physical Therapy Treatment Education Education Provided Safety M7 PT-IP Assessment and Plan Start: 12/30/19 08:23 Freq: NEEDED Status: Active Protocol: Document 12/31/19 12:34 LJ (Rec: 12/31/19 13:28 [id number]) PT Summary Assessment and Plan Potential Rehabilitation Potential Good Status of Condition at Evaluation Evolving Summary Impairments Pain,ROM,Strength,Balance, Cognition,Bed Mobility, Transfers,Gait,Activity Tolerance Assessment Summary Pt without distress during ambulation. Able to carry on conversation, avoid obstacles, and walk with IV pole in hand . Pt with less dizziness but still had 1 slight LOB due to dizziness. She recovered quickly with a standing rest break. Goals Bed Mobility Goal Standby Assistance Transfer Goal Standby Assistance Gait Goal Standby Assistance Gait Distance 300 Other Goals 2 EJ without AD I Days to Meet Goals 3 Frequency of Treatment Frequency Of Treatment Once a Day Treatment Plan Physical Therapy Treatment Plan Bed Mobility Training,Transfer Training,Gait Training, Therapeutic Exercise,Balance Retraining,Discharge Planning, Hot or Cold Pack,Neuromuscular Re-ed Other Recommendations and Next Treatment continue ambulation and Focus balance training as tolerated Recommendations To Nursing Amount of Assist Needed Standby Assistance Discharge Recommendations PT Discharge Recommendations Home with Assistance Transportation Needs at Discharge Private Vehicle
--- NOTE | 2019-12-31 13:30 | PM.DS.1 ---
History of Present Illness History of Present Illness Date Patient Seen: 12/31/19 Time Patient Seen: 13:30 Chief complaint: FAINTING SPELLS Narrative: Per Dr. Tang: Patient admitted through the emergency room this afternoon because of dizziness. Patient presents to the ER earlier this morning complaining dizziness. She has been having dizziness of last several days. Dizziness seem to get worse and so she came here. The dizziness is constant as she has had dizziness intermittently in the past wears intermittent but dizziness last couple days has been of persistent hand not affected by time of day position with without liquids without food. No other related symptoms she can relate to his far as symptoms with the dizziness. Initially she was evaluated emergency room and found to be anemic and a somewhat dehydrated and felt that this was a problem. During the course of the planned discharge apparently she became unresponsive and the it took several minutes to to arouse her and she did return back to her pre syncope state. Reportedly she has these episodes periodically in the past. She is admitted for observation and perhaps further evaluation. Currently she has no complaints other than she does feel lightheaded but the other than that she feels like her normal self. Chart review shows her to have a significant comorbidities. Last seen by her per PCP Dr. Lynch October of this year. She primarily has been seen by Kerline Adame emergency medical technician basic in the clinic. Additionally was seen by Dr. Bales psychiatrist. The patient has a list of multiple diagnoses as per Dr. Lynch's note: Anasarca, urinary retention, sleep apnea, depression, narcotics the habituation, low back pain,. 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 Patient is on Suboxone for her pain medication usage. She refuses user CPAP machine. 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 She has seen urologist urinary tension and really [place] for is at the there is nothing more to be done other than medication. She has back surgeon that she sees in [facility] and saw him last week and apparently was stable. She reportedly relates she was exposed to someone then about 10 days ago who was Co with positive. Patient has been tested in the past. Dr. Randall back and game master was seeing her for her edema and felt there was no significant kidney disorder. Patient was here in the hospital recently and developed pulmonary embolism when she is on anticoagulation. Apparently this 2nd pulmonary embolism so she was told by her doctor that this is for ever. Discharge Providers Provider Date of admission: 12/29/19 18:51 Discharge Date: 12/31/19 Primary care physician: Alejandra Lynch MD Consults: 12/29/19 20:11 Consult to Physical Therapy Evaluate & Treat Comment: Physician Instructions: Evaluate and Treat 12/30/19 08:34 Consult to General Surgery Routine Comment: Consulting Provider: [facility] Reason for consultation: anemia. ?egd/c/ Has provider been notified: No Discharge provider: Martha Nguyen MD Summary Hospital Course Discharge Diagnosis: 1. Anemia, microcytic/microchronic, secondary to iron-deficiency, severe 2. Pseudogenic seizures, acute on chronic with acute dizziness, improved 3. Lethargy, acute, likely secondary to #1 4. Elevated CK and CK-MB, acute, resolving 5. History of PE x2 and DVT 6. Anxiety and Depression, chronic 7. DM type 2, chronic, diet controlled. 8. Hypertension, chronic. 9. Hypothyroidism, chronic 10. LYLA, chronic 11. Asthma, chronic 12. Tobacco dependence, chronic 13. Alcohol dependence, chronic 14. Fibromyalgia, chronic 15. Chronic pain syndrome 16. Morbid obesity, chronic 17. Anasarca, chronic Hospital Course: Patient was admitted with profound dizziness and weakness. In the ED she had what sounds like a psychogenic seizure, this is a chronic and known problem for patient with a previous workup at [facility]. During her pseudo-seizure, she did respond to painful stimuli. Prolactin was notably negative. CT head unremarkable. This morning, she is back to baseline and would like to go home. A severe microcytic/microchromic anemia was noted in the ED with a hemoglobin/hematocrit of 7.8/25.7; patient was admitted for further assessment and treatment. EGD/colonoscopy this morning was significant only for diverticulosis. No biopsies were taken. Iron studies did show a profound iron-deficiency anemia and prior to discharge, she was given 200 mg of IV Venofer. Outpatient infusion therapy will be arranged for an additional 4 doses in the next 2 weeks. Coumadin was interrupted secondary to the concern for bleeding, admission INR 1.9, 1.8 on day of discharge. Patient takes warfarin 5/10 mg every other day; administered 10 mg dose prior to discharge. Patient will need outpatient INR check in approximately 5 days, at her follow-up appointment. Other notable labs from her admission included an elevated CK and CK-MB thought to be secondary to muscle breakdown from prolonged positioning (falling asleep on the toilet for 2 hours) and her pseudo-seizure. Troponin was checked twice and was notably negative both times. EKG showed no ST changes. Recheck of her CK and CK-MB on day of discharge showed a substantial downward trend towards normal. On day of discharge, she denies any chest pain, shortness of breath and is tolerating a regular diet with no nausea or vomiting. She is independently ambulating. Afebrile with stable vital signs throughout. Outpatient follow-up needs: 1. Dr. Lynch, 1 week. 2. INR in 5 days. 3. IV Iron tranfusion, Venofer 200 mg IV x 4 within 2 weeks. 4. Repeat CBC, CK, and CK-MB in [address] Bales and Kecia (counselor) as scheduled (twice monthly). Time spent on Discharge and Coordination of post-hospital care: 35 minutes Status at Discharge Cognitive/behavioral status at discharge: at baseline, oriented Exam Vital Signs (past 8 hours): - 12/31/19 07:45 12/31/19 08:58 12/31/19 09:49 Temperature 97.9 F 97.7 F Pulse Rate 91 H 88 104 H Respiratory Rate 16 16 20 Blood Pressure 123/75 129/86 125/72 Pulse Oximetry 95 95 96 12/31/19 09:54 12/31/19 10:00 12/31/19 10:04 Temperature Pulse Rate 109 H 111 H 102 H Respiratory Rate 18 17 19 Blood Pressure 138/86 151/88 H 141/81 H Pulse Oximetry 96 96 96 12/31/19 10:09 12/31/19 10:14 12/31/19 10:19 Temperature Pulse Rate 104 H 101 H 99 H Respiratory Rate 18 19 17 Blood Pressure 122/6 L 139/67 129/72 Pulse Oximetry 95 94 94 12/31/19 10:24 12/31/19 10:29 12/31/19 10:34 Temperature Pulse Rate 101 H 98 H 99 H Respiratory Rate 17 16 15 Blood Pressure 127/74 124/71 123/71 Pulse Oximetry 95 93 93 12/31/19 10:39 12/31/19 11:50 12/31/19 13:21 Temperature 98.2 F Pulse Rate 92 H 93 H 89 Respiratory Rate 16 16 17 Blood Pressure 119/72 114/70 Pulse Oximetry 93 98 92 Oxygen Delivery Method Room Air Oxygen Flow Rate 2 Narrative Exam Narrative: GENERAL: Alert and oriented, appearing stated age and in no acute distress, pale. HEENT: Head normocephalic/atraumatic. Pupils equal, round, and reactive to light and accomodation. Extraocular muscles intact. Tympanic membranes clear. Nasal mucosa moist, septum midline. Oral mucosa moist, no lesions. Neck soft and supple, no lymphadenopathy. LUNGS: Clear to ausculation bilaterally, no wheezes, rhonchi or rales. CV: Normal S1 and S2 with regular rate and rhythm, no audible murmurs, rubs or gallops. ABDOMEN: Soft, non-tender, non-distended, no organomegaly. Positive bowel sounds. EXTREMITIES: No clubbing, cyanosis, or edema. NEURO: Cranial nerves II through XII grossly intact, no focal deficits. PSYCH: Alert and oriented x 3. SKIN: No concerning lesions. Objective Labs Result Diagrams: 12/31/19 11:44 12/31/19 07:25 Labs: Laboratory Results - last 24 hr 12/31/19 12/31/19 12/31/19 07:25 07:25 07:25 WBC 5.4 RBC 3.37 L Hgb 7.2 L Hct 24.3 L MCV 72.0 L MCH 21.5 L MCHC 29.8 L RDW 17.9 H Plt Count 209 Neut % (Auto) 71.4 Lymph % (Auto) 18.3 L [place] % (Auto) 8.8 Eos % (Auto) 1.0 L Baso % (Auto) 0.5 Neut # (Auto) 3900 Lymph # (Auto) 1000 L [place] # (Auto) 500 Eos # (Auto) 100 Baso # (Auto) 0 Percent Retic PT 21.0 H INR 1.8 H Sodium 140 Potassium 3.7 Chloride 105 Carbon Dioxide 31 BUN 5 L Creatinine 0.54 Estimated GFR > 60.0 BUN/Creatinine Ratio 9.3 Glucose 101 H Calcium 8.7 Iron TIBC Ferritin Total Creatine Kinase CK-MB (CK-2) CK-MB (CK-2) Rel Index Troponin I TSH 12/31/19 12/31/19 12/31/19 11:44 11:44 11:44 WBC 5.9 RBC 3.34 L Hgb 7.2 L Hct 24.3 L MCV 72.6 L MCH 21.4 L MCHC 29.5 L RDW 17.6 H Plt Count 216 Neut % (Auto) Lymph % (Auto) [place] % (Auto) Eos % (Auto) Baso % (Auto) Neut # (Auto) Lymph # (Auto) [place] # (Auto) Eos # (Auto) Baso # (Auto) Percent Retic 3.1 H PT INR Sodium Potassium Chloride Carbon Dioxide BUN Creatinine Estimated GFR BUN/Creatinine Ratio Glucose Calcium Iron 27 L TIBC 364 Ferritin Total Creatine Kinase CK-MB (CK-2) CK-MB (CK-2) Rel Index Troponin I TSH 12/31/19 12/31/19 12/31/19 11:44 11:44 11:44 WBC RBC Hgb Hct MCV MCH MCHC RDW Plt Count Neut % (Auto) Lymph % (Auto) [place] % (Auto) Eos % (Auto) Baso % (Auto) Neut # (Auto) Lymph # (Auto) [place] # (Auto) Eos # (Auto) Baso # (Auto) Percent Retic PT INR Sodium Potassium Chloride Carbon Dioxide BUN Creatinine Estimated GFR BUN/Creatinine Ratio Glucose Calcium Iron TIBC Ferritin 10 Total Creatine Kinase 211 H CK-MB (CK-2) 3.76 H CK-MB (CK-2) Rel Index 1.8 Troponin I < 0.012 TSH 0.88 Discharge Plan Discharge Plan Patient Disposition: Home Discharge orders & Medications Prescriptions: Continued (DME) Diatrue Plus Test Strip strip See Dose Instructions .ROUTE .MEDSUPPLY Qty: 50 RF: 12 (DME) blood-glucose meter [Diatrue Plus Blood Glucose Met] [facility] See Dose Instructions .ROUTE .MEDSUPPLY Qty: 1 RF: 0 (DME) lancets [Easy Touch Twist Lancets] 33 gauge misc See Dose Instructions .ROUTE .MEDSUPPLY Qty: 100 RF: 3 (DME) TENS units device See Rx Instructions .ROUTE .MEDSUPPLY Qty: 1 RF: 0 omeprazole 20 mg capsule,delayed release(DR/EC) 20 mg PO BID Qty: 180 RF: 1 terazosin 5 mg capsule 5 mg PO BEDTIME RF: 0 potassium chloride 20 mEq tablet extended release 20 meq PO DAILY RF: 0 pregabalin 150 mg capsule 150 mg PO BID Qty: 60 RF: 3 (DME) Compressioin Stockings Qty: 1 RF: 0 acetaminophen [Tylenol Extra Strength] 500 mg tablet 2,000 mg PO BID RF: 0 fluticasone propion-salmeterol [Advair Diskus] 100-50 mcg/dose blister with device 1 puff INHALATION BID RF: 0 albuterol sulfate 90 mcg/actuation HFA aerosol inhaler 2 puff INHALATION Q4-6H PRN (Reason: shortness of breath or wheezing) Qty: 8.5 RF: 0 furosemide 20 mg Tablet 60 mg PO QPM RF: 0 furosemide 20 mg Tablet 100 mg PO QAM RF: 0 warfarin [Coumadin] 5 mg Tablet 5 mg PO Q OTHER DAY RF: 0 warfarin [Coumadin] 10 mg Tablet 10 mg PO Q OTHER DAY RF: 0 aripiprazole [Abilify] 5 mg tablet 5 mg PO BID RF: 0 duloxetine 60 mg capsule,delayed release(DR/EC) 90 mg PO DAILY RF: 0 levothyroxine 50 mcg tablet 50 mcg PO BEDTIME RF: 0 cyclobenzaprine 10 mg tablet 10 mg PO BID RF: 0 metoprolol tartrate 25 mg tablet 12.5 mg PO BID RF: 0 Zubsolv 5.7-1.4 mg Tablet, Sublingual 1 tab SUBLINGUAL BID RF: 0 magnesium 250 mg Tablet 500 mg PO DAILY RF: 0 Follow up/Referrals: Alejandra Lynch MD [Primary Care Provider] - Diet/Activity/Treatments Diet: Carb-consistent/Diabetic Activity: As tolerated. Skin/Wound/Dressing Care Report to your healthcare provider any signs of infection, such as:: chills, fever and increased pain Visit Report/Discharge Packet Instructions: Anemia Stand Alone Forms: Colonoscopy Result: [facility], EGD Result: [facility] Discharge Data Primary Care Provider: Alejandra Lynch Attending Provider: Alejandra Lynch Admit Date/Time: 12/29/19 18:51 Quality VTE Deep Vein Thrombosis/Pulmonary Embolism Present on Admission: No
[2019-12-31] MEDS: IRON SUCROSE 200 MG in SODIUM CHLORIDE 0.9% 100 ML 220 ML IV (14:02)
[2019-12-31] MEDS: WARFARIN 5 MG TABLET 10 MG PO (14:03)
[2019-12-31 14:15] LABS: Neutrophils Absolute Manual 4956 /uL (3000-5900); Total Cells Counted 100
[2019-12-31 14:16] LABS: Anisocytosis 2+; Poikilocytosis 2+
--- NOTE | 2019-12-31 15:51 | PC.NURSE ---
Pt states she has all of her belongings and understands her followup instructions to include calling her MD on Thursday morning to find out where and when to have her Fe+ infusions. Her PIV is out. Pt denies dizziness pain and nausea. She is discharging to home and her spouse is driving her in a private car.
--- NOTE | 2020-01-04 20:11 | PC.NURSE ---
Late Entry; Iron infusion initiated 12/30 at 14:02, complete at 14:33.
== END 2019-12-31 15:58 | disposition home or self-care (01) ==
LOC: ED 18:47 → AC 18:52
PROVIDERS: Student in an Organized Health Care Education/Training Program; Surgery; Admitting Provider Family Medicine; Emergency Provider Nurse Practitioner; PCP Family Medicine; Referring Provider Nurse Practitioner; Visit Provider Family Medicine
PROC: 0DJ08ZZ Inspection of Upper Intestinal Tract, Via Natural or Artificial Opening Endoscopic (ICD-10-PCS; CPT 43235; principal; 2019-12-31 09:00)
PROC: 0DJD8ZZ Inspection of Lower Intestinal Tract, Via Natural or Artificial Opening Endoscopic (ICD-10-PCS; CPT 45378; 2019-12-31 09:00)
DX: D50.9 Iron deficiency anemia, unspecified (principal); R55 Syncope and collapse; E11.9 Type 2 diabetes mellitus without complications; J45.909 Unspecified asthma, uncomplicated; R07.9 Chest pain, unspecified; Z79.01 Long term (current) use of anticoagulants; F44.5 Conversion disorder with seizures or convulsions; F41.9 Anxiety disorder, unspecified; F10.20 Alcohol dependence, uncomplicated; F11.20 Opioid dependence, uncomplicated; G47.33 Obstructive sleep apnea (adult) (pediatric); I10 Essential (primary) hypertension; F17.210 Nicotine dependence, cigarettes, uncomplicated; K57.30 Diverticulosis of large intestine without perforation or abscess without bleeding; K44.9 Diaphragmatic hernia without obstruction or gangrene; Z03.818 Encounter for observation for suspected exposure to other biological agents ruled out
CPT/HCPCS: 43235; 45378; 36415; 36600; 70450; 70551; 71045; 80048; 80053; 80305; 81003; 82140; 82550; 82553; 82607; 82728; 82746; 82805; 82962; 83540; 83550; 83880; 84146; 84443; 84484; 85014; 85018; 85025; 85045; 85610; 87635; 93005; 94640; 96360; 96361; 96375; 97116; 97161; 99284; G0378; A9270; J0330; J1756; J2250; J2405; J2704; J3010; J7613

== ENCOUNTER → 2020-01-04 14:54 | Outpatient (CLI) | payer OTHER, SELFPAY ==
[2019-12-29 20:08] VITALS: BMI 48.2
--- NOTE | 2020-01-04 14:56 | DI.RAD.S_ITS ---
PROCEDURE: XR KNEE LT 3V INDICATIONS: left knee pain with catching TECHNIQUE: 3 views of the knee were acquired. COMPARISON: None. FINDINGS: Bones: No fractures or dislocations. No suspicious bony lesions. Soft tissues: Trace joint effusion. No suspicious soft tissue calcifications. IMPRESSION: Trace joint effusion. Mild osteoarthritis. If the patient's pain or other symptoms persist, consider further evaluation with MRI Dictated by: Zaheer De Guzman M.D. on 01/04/2020 at 16:48 Approved by: Zaheer De Guzman M.D. on 01/04/2020 at 16:50
== END ==
PROVIDERS: PCP Family Medicine; Referring Provider Family Medicine; Visit Provider Family Medicine
DX: M25.562 Pain in left knee (principal); M17.12 Unilateral primary osteoarthritis, left knee
CPT/HCPCS: 73562

== ENCOUNTER 2020-01-08 09:42 | Emergency (ER) | payer OTHER, SELFPAY ==
[2019-12-29 20:08] VITALS: BMI 48.2
[2020-01-08 09:59] VITALS: BP 137/75; PULSE 108; RESP 16; TEMP 36.4; O2SAT 97; BMI 48.2
--- NOTE | 2020-01-08 10:27 | DI.RAD.S_ITS ---
PROCEDURE: XR CHEST 1V INDICATIONS: chest pain TECHNIQUE: One view of the chest was acquired. COMPARISON: [facility], CR, XR CHEST 1V, 09/21/2019, 10:08. [facility], CR, XR CHEST 1V, 12/02/2019, 5:09. [facility], CR, XR CHEST 1V, 12/29/2019, 13:39. FINDINGS: Surgical changes and devices: None. Lungs and pleura: Lungs are clear. No pleural effusions or pneumothorax. Mediastinum: Mediastinal contours appear normal. Heart size is normal. Bones and chest wall: No suspicious bony lesions. Overlying soft tissues appear unremarkable. IMPRESSION: Portable chest within normal limits. Dictated by: Rickie Lundberg M.D. on 01/08/2020 at 10:19 Approved by: Rickie Lundberg M.D. on 01/08/2020 at 10:19
[2020-01-08 10:52] LABS: Add Manual Diff / Slide Review NO; Basophils Absolute Auto 0 /uL (0-100); Basophils Percent Auto 0.5 % (0-2); Eosinophils Absolute Auto 100 /uL (0-450); Eosinophils Percent Auto 1.6 % (2-4); Hematocrit 30.8 % (36-46); Hemoglobin 9.3 g/dL (12.0-16.0); Lymphocytes Absolute Auto 1100 /uL (1100-4500); Lymphocytes Percent Auto 21.9 % (25-40); Mean Corpuscular HGB Conc 30.3 % (30-36); Mean Corpuscular Hemoglobin 22.7 PG (26-34); Mean Corpuscular Volume 74.9 fL (80-100); Monocytes Absolute Auto 500 /uL (0-900); Monocytes Percent Auto 10.2 % (3-14); Neutrophils Absolute Auto 3400 /uL (1500-7000); Neutrophils Percent Auto 65.8 % (50-75); Platelet Count 224 X10^3/uL (150-400); Red Blood Cell Count 4.11 X10^6/uL (4.0-5.2); Red Cell Distribution Width 21.7 % (11.6-14.8); White Blood Cell Count 5.1 X10^3/uL (4.5-11.0)
[2020-01-08 11:00] LABS: INR 2.2 (0.9-1.3); Prothrombin Time 25.2 SECONDS (10.1-12.7)
[2020-01-08 11:03] LABS: PTT Partial Thromboplastin Tim 40 SECONDS (26.4-36.2)
[2020-01-08 11:05] LABS: Alanine Aminotransferase 12 IU/L (<35); Albumin 3.9 g/dL (3.5-5.0); Albumin Globulin Ratio 1.1 (1.0-2.8); Alkaline Phosphatase 76 U/L (38-126); Aspartate Aminotransferase 19 IU/L (14-36); BUN Creatinine Ratio 17.2 (6-22); Bilirubin Total 0.4 mg/dL (0.2-1.3); Blood Urea Nitrogen 10 mg/dL (7-17); Carbon Dioxide 33 mmol/L (22-32); Chloride 100 mmol/L (98-107); Creatine Kinase 55 U/L (30-135); Estimated Glomerular Filt Rate > 60.0 mL/min (>60); Globulin 3.4 g/dL (1.7-4.1); Glucose 115 mg/dL (70-100); HEMOLYSIS < 15 (0-50); Lipase 33 U/L (23-300); Sodium 137 mmol/L (137-145); Total Protein 7.3 g/dL (6.3-8.2)
--- NOTE | 2020-01-08 11:15 | ED_ITS ---
HPI - Syncope General Chief Complaint: Dizziness Stated Complaint: Dizziness, fell and hit head Time Seen by Provider: 01/08/20 10:50 Source: patient Mode of arrival: Ambulatory Limitations: no limitations History of Present Illness HPI narrative: Patient is a 39-year-old female with history of anemia, pseudoseizures and syncopal episodes presenting after a syncopal episode. Episodes she was actually admitted to the hospital December through the after syncopal episode and found to be quite anemic. She is supposed to be getting iron infusions but they have not yet been set up she is also on Coumadin for DVT/PE. Today She was on the toilet when she passed out hitting side her head against the wall. She says she thinks she passed out for at least 30 minutes which is what she reported to me last time I saw her as well. She denies any chest pain or heart palpitations. She denies any other injury. Related Data Home Medications Medication Instructions Recorded Confirmed acetaminophen 500 mg tablet 2,000 mg PO BID tab 09/23/18 01/04/20 magnesium 500 mg PO DAILY 06/29/19 01/04/20 potassium chloride 20 mEq 20 meq PO DAILY 07/07/19 01/04/20 tablet,extended release fluticasone propion-salmeterol 1 puff INHALATION BID 07/11/19 01/04/20 [Advair Diskus] furosemide 60 mg PO QPM 12/02/19 01/04/20 furosemide 100 mg PO QAM 12/02/19 01/04/20 warfarin [Coumadin] 5 mg PO Q OTHER DAY 12/02/19 01/04/20 warfarin [Coumadin] 10 mg PO Q OTHER DAY 12/02/19 01/04/20 Zubsolv 1 tab SUBLINGUAL BID 12/29/19 01/04/20 aripiprazole [Abilify] 5 mg PO BID 12/29/19 01/04/20 cyclobenzaprine 10 mg PO BID 12/29/19 01/04/20 duloxetine 90 mg PO DAILY 12/29/19 01/04/20 levothyroxine 50 mcg PO BEDTIME 12/29/19 01/04/20 metoprolol tartrate 12.5 mg PO BID 12/29/19 01/04/20 ferrous fumarate 325 mg (106 mg 325 mg PO BID 01/04/20 01/04/20 iron) tablet terazosin 2 mg capsule 2 mg PO DAILY 01/04/20 01/04/20 Previous Rx's Medication Instructions Recorded blood sugar diagnostic #50 each 12/08/18 blood-glucose meter #1 each 12/08/18 lancets 33 gauge #100 each 12/08/18 TENS units #1 each 02/09/19 albuterol sulfate 2 puff INHALATION Q4-6H PRN #8.5 07/11/19 gram pregabalin 150 mg capsule 150 mg PO BID #60 cap 09/20/19 Compressioin Stockings #1 ea 10/13/19 omeprazole 20 mg capsule,delayed 20 mg PO BID #180 cap 01/02/20 release varenicline 0.5 mg (11)-1 mg (42) See Rx Instructions PO PER PKG DIR 01/04/20 tablets in a dose pack #53 each Allergies Allergy/AdvReac Type Severity Reaction Status Date / Time carisoprodol [CARISOPRODOL] AdvReac Severe urinary Verified 01/04/20 13:37 retention fosphenytoin AdvReac Intermediate ITCHING Verified 01/04/20 13:37 Review of Systems Review of Systems ROS Unobtainable: All systems reviewed & are unremarkable except as noted in HPI and below Constitutional Constitutional: Denies chills, Denies fever(s), Denies lethargy and Denies weakn ess Cardiovascular Cardiovascular: Denies chest pain, Reports syncope, Denies irregular heart rhythm, Denies lightheadedness, Denies palpitations, Denies dyspnea, Denies dyspnea on exertion and Denies orthopnea Respiratory Respiratory: Denies cough, Denies dyspnea, Denies dyspnea on exertion and Denies wheezing Gastrointestinal Gastrointestinal: Denies abdominal pain, Denies change in bowel habits, Denies diarrhea, Denies nausea and Denies vomiting Integumentary/Breasts Skin/Breast: Denies pruritus, Denies erythema, Denies rash and Denies wounds Neurologic Neurologic: Reports as per HPI, Reports syncope and Denies weakness Endocrine Endocrine: Denies palpitations Allergic/Immunologic Allergic/Immunologic: Denies wheezing Patient History Medical History (Updated 01/08/20 @ 12:06 by Kristen Martinez DO) Acetaminophen overdose of undetermined intent (Resolved 12/2015) Alcoholism (Acute) Asthma (Chronic) Cubital tunnel syndrome (Chronic) Depression (Chronic 02/08/14) DM type 2 (diabetes mellitus, type 2) (Acute) DVT (deep venous thrombosis) (Acute) Essential hypertension (Chronic) Fibromyalgia (Chronic 03/02/15) Intraoperative cardiac arrest during non-cardiac surgery (Resolved 11/2013) 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 (Chronic) Morbid obesity (Chronic) Narcotic habituation, continuous (Acute) Obstipation (Inactive) LYLA (obstructive sleep apnea) (Chronic) Ovarian cyst (Chronic) Plantar fasciitis (Chronic) Psychogenic nonepileptic seizure (Acute) Pulmonary embolism (Acute) Status post laminectomy (Inactive 12/14/15) Suicide attempt (Resolved) Tylenol overdose (Resolved) Urinary retention (Acute) Surgical History History of carpal tunnel repair (Resolved 10/30/14) S/P epidural steroid injection (Resolved 11/2013) Status post dilation and curettage (Resolved 2008) Status post laminectomy (Resolved 09/2016) Family History Grandfather Diabetes mellitus Family/Other Pancreatic cancer Social History household members: spouse Smoking Status: Current every day smoker alcohol intake: current eating out: rarely or never Type(s) of exercise: normal ROM and activity and sedentary lifestyle Smoking Status: Current every day smoker alcohol intake frequency: a few times a week Substance Use Type: does not use Exam Initial Vital Signs Initial Vital Signs: Vital Signs Temperature 97.5 F L 01/08/20 09:59 Pulse Rate 108 H 01/08/20 09:59 Respiratory Rate 16 01/08/20 09:59 Blood Pressure 137/75 01/08/20 09:59 Pulse Oximetry 97 01/08/20 09:59 GENERAL: Overweight female and in no acute distress. HEENT: Head atraumatic-no contusion abrasion,EOMI, pupils reactive, face symmetric, moist mucous membranes CARDIOVASCULAR: Regular rate and rhythm without murmurs, rubs or gallops. RESPIRATORY: Breath sounds equal bilaterally, no wheezes rales or rhonchi. ABDOMEN: Soft, nontender. Normoactive bowel sounds all 4 quadrants. No guarding or rebound. EXTREMITIES: Normal range of motion, no clubbing or edema. Neurovascularly intact NEUROLOGICAL: Alert and oriented x4.Normal gait and speech. Cranial nerves II through XII grossly intact. SKIN: Warm, dry, no laceration, no petechiae, no rashes or lesions. Scores NIH Stroke Scale Level of Conciousness: Alert, keenly responsive Ask month/age: Answers both questions correctly. Open/close eyes, close hand: Performs both tasks correctly Best gaze horizontal: Normal Visual meadows: No visual loss Facial palsy: Normal symetrical movement Left arm drift: No drift for full 10 sec Right arm drift: No drift for full 10 sec Left leg drift: No drift for full 10 sec Right leg drift: No drift for full 10 sec Limb ataxia: Absent Sensory on face/arms/legs: Normal, no sensory loss Best language: No aphasia, normal Dysarthria: Normal Extinction or inattention: No abnormality Total NIH Stroke scale score: 0 Course Orders Ordered: ED Orders 01/08/20 10:27 XR chest 1V Stat EKG-12 Lead Stat 01/08/20 10:45 Complete Blood Count AUTO DIFF Stat Comprehensive Metabolic Panel Stat Lipase Stat Partial Thromboplastin Time Stat Prothrombin Time INR Stat Troponin & CK Cardiac Panel Stat 01/08/20 11:15 CT head/brain wo con Stat Vital Signs Vital signs: Vital Signs - 8 hr 01/08/20 09:59 01/08/20 12:28 Temperature 97.5 F L Pulse Rate 108 H 97 H Respiratory Rate 16 17 Blood Pressure 137/75 137/75 Pulse Oximetry 97 97 MDM - Syncope Lab Data Attestation: I reviewed the patient's lab results. Result diagrams: 01/08/20 10:45 01/08/20 10:45 Labs: Lab Results 01/08/20 01/08/20 01/08/20 Range/Units 10:45 10:45 10:45 WBC 5.1 (4.5-11.0) X10^3/uL RBC 4.11 (4.0-5.2) X10^6/uL Hgb 9.3 L (12.0-16.0) g/dL Hct 30.8 L (36-46) % MCV 74.9 L (80-100) fL MCH 22.7 L (26-34) PG MCHC 30.3 (30-36) % RDW 21.7 H (11.6-14.8) % Plt Count 224 (150-400) X10^3/uL Neut % (Auto) 65.8 (50-75) % Lymph % (Auto) 21.9 L (25-40) % [place] % (Auto) 10.2 (3-14) % Eos % (Auto) 1.6 L (2-4) % Baso % (Auto) 0.5 (0-2) % Neut # (Auto) 3400 (7885-0338) /uL Lymph # (Auto) 1100 (0376-8227) /uL [place] # (Auto) 500 (0-900) /uL Eos # (Auto) 100 (0-450) /uL Baso # (Auto) 0 (0-100) /uL RBC Morphology Not Reportable Hypochromasia 1+ H Anisocytosis 2+ H PT 25.2 H (10.1-12.7) SECONDS INR 2.2 H (0.9-1.3) APTT 40 H D (26.4-36.2) SECONDS Sodium 137 (137-145) mmol/L Potassium 4.0 (3.4-5.1) mmol/L Chloride 100 (98-107) mmol/L Carbon Dioxide 33 H (22-32) mmol/L BUN 10 (7-17) mg/dL Creatinine 0.58 (0.52-1.04) mg/dL Estimated GFR > 60.0 (>60) mL/min BUN/Creatinine Ratio 17.2 (6-22) Glucose 115 H (70-100) mg/dL Calcium 9.0 (8.4-10.2) mg/dL Total Bilirubin 0.4 (0.2-1.3) mg/dL AST 19 (14-36) IU/L ALT 12 (<35) IU/L Alkaline Phosphatase 76 (38-126) U/L Total Creatine Kinase 55 (30-135) U/L CK-MB (CK-2) TNP CK-MB (CK-2) Rel Index TNP Troponin I < 0.012 (0.01-0.034) ng/mL Total Protein 7.3 (6.3-8.2) g/dL Albumin 3.9 (3.5-5.0) g/dL Globulin 3.4 (1.7-4.1) g/dL Albumin/Globulin Ratio 1.1 (1.0-2.8) Lipase 33 (23-300) U/L Imaging Data CT scan - head: Radiologist's Impression: PROCEDURE: CT HEAD/BRAIN WO CON INDICATIONS: syncope on Coumadin TECHNIQUE: Noncontrast 4.5 mm thick angled axial sections acquired from the foramen magnum to the vertex, with coronal and sagittal reformats. For radiation dose reduction, the following was used: automated exposure control, adjustment of mA and/or kV according to patient size. COMPARISON: [facility], MR, MR HEAD/BRAIN WO CON, 12/30/2019, 15:25. [facility], MR, MR HEAD/BRAIN WO/W CON, 09/19/2019, 15:24. [facility], CT, CT HEAD/BRAIN WO CON, 09/19/2019, 12:21. [facility], CT, CT HEAD/BRAIN WO CON, 12/29/2019, 17:00. FINDINGS: Image quality: Excellent. CSF spaces: Basal cisterns are patent. No extra-axial fluid collections. Ventricles are normal in size and shape. Brain: No midline shift. No intracranial masses or hemorrhage. [place]-white matter interface is normal. Note is made of a cavum septum pellucidum. When discovered in isolation, this is considered to be a developmental variant of no clinical consequence. Skull and face: Calvarium and visualized facial bones are intact, without suspicious lesions. Sinuses: Visualized sinuses and mastoids are clear. IMPRESSION: No acute intracranial hemorrhage is seen. No acute intracranial process is seen. Dictated by: Rickie Lundberg M.D. on 01/08/2020 at 11:01 Approved by: Rickie Lundberg M.D. on 01/08/2020 at 11:02 ECG Data Attestation: I personally reviewed and interpreted this ECG as follows: Prior ECG tracings: available for review Interpretation: Normal sinus rhythm rate 94 p.r. interval 130 QRS 122 QTC 492 and bundle branch block noted no ST changes no changes from prior MDM Narrative Medical decision making narrative: Patient's anemia is actually much improved from her recent visit. She seems to have frequent episodes of passing out. Not sure she has had Holter monitor she also sees a psychiatrist. At this time she has no active bleeding and head CT is negative. No focal deficits. She agrees and would like to go home today. Discharge Plan Departure Patient Disposition: Home Clinical Impression: Syncope Qualifiers: Syncope type: unspecified Qualified Code(s): R55 - Syncope and collapse Discharge Date/Time: 01/08/20 12:30 Instructions: Fainting Activity Restrictions/Additional Instructions: *You have been diagnosed with fainting *What to do: Your anemia is much improved from previous. Please continue to work with her primary care provider in regards to your frequent fainting episode *Continue to take medications as directed *Follow up with your primary care provider in 2-3 days *Return to ER if you should have any new, worsening or concerning symptoms Prescriptions: No Action (DME) Diatrue Plus Test Strip strip See Dose Instructions .ROUTE .MEDSUPPLY Qty: 50 RF: 12 (DME) blood-glucose meter [Diatrue Plus Blood Glucose Met] misc See Dose Instructions .ROUTE .MEDSUPPLY Qty: 1 RF: 0 (DME) lancets [Easy Touch Twist Lancets] 33 gauge misc See Dose Instructions .ROUTE .MEDSUPPLY Qty: 100 RF: 3 (DME) TENS units device See Rx Instructions .ROUTE .MEDSUPPLY Qty: 1 RF: 0 ferrous fumarate 325 mg (106 mg iron) tablet 325 mg PO BID RF: 0 terazosin 2 mg capsule 2 mg PO DAILY RF: 0 varenicline 0.5 mg (11)- 1 mg (42) tablets,dose pack See Rx Instructions PO PER PKG DIR Qty: 53 RF: 0 potassium chloride 20 mEq tablet extended release 20 meq PO DAILY RF: 0 pregabalin 150 mg capsule 150 mg PO BID Qty: 60 RF: 3 (DME) Compressioin Stockings Qty: 1 RF: 0 omeprazole 20 mg capsule,delayed release(DR/EC) 20 mg PO BID Qty: 180 RF: 1 acetaminophen [Tylenol Extra Strength] 500 mg tablet 2,000 mg PO BID RF: 0 fluticasone propion-salmeterol [Advair Diskus] 100-50 mcg/dose blister with device 1 puff INHALATION BID RF: 0 albuterol sulfate 90 mcg/actuation HFA aerosol inhaler 2 puff INHALATION Q4-6H PRN (Reason: shortness of breath or wheezing) Qty: 8.5 RF: 0 furosemide 20 mg Tablet 60 mg PO QPM RF: 0 furosemide 20 mg Tablet 100 mg PO QAM RF: 0 warfarin [Coumadin] 5 mg Tablet 5 mg PO Q OTHER DAY RF: 0 warfarin [Coumadin] 10 mg Tablet 10 mg PO Q OTHER DAY RF: 0 aripiprazole [Abilify] 5 mg tablet 5 mg PO BID RF: 0 duloxetine 60 mg capsule,delayed release(DR/EC) 90 mg PO DAILY RF: 0 levothyroxine 50 mcg tablet 50 mcg PO BEDTIME RF: 0 cyclobenzaprine 10 mg tablet 10 mg PO BID RF: 0 metoprolol tartrate 25 mg tablet 12.5 mg PO BID RF: 0 Zubsolv 5.7-1.4 mg Tablet, Sublingual 1 tab SUBLINGUAL BID RF: 0 magnesium 250 mg Tablet 500 mg PO DAILY RF: 0 Referrals: Alejandra Lynch MD [Primary Care Provider] -
[2020-01-08 11:16] LABS: Troponin I < 0.012 ng/mL (0.01-0.034)
[2020-01-08 11:20] LABS: Anisocytosis 2+; Hypochromasia 1+
[2020-01-08 12:28] VITALS: BP 137/75; PULSE 97; RESP 17; O2SAT 97
== END 2020-01-08 12:30 | disposition home or self-care (01) ==
PROVIDERS: Emergency Provider Emergency Medicine; PCP Family Medicine
DX: R55 Syncope and collapse (principal); I82.409 Acute embolism and thrombosis of unspecified deep veins of unspecified lower extremity; Z79.01 Long term (current) use of anticoagulants
CPT/HCPCS: 36415; 70450; 71045; 80053; 82550; 83690; 84484; 85025; 85610; 85730; 93005; 93010; 99283; 99284

== ENCOUNTER → 2020-01-11 12:44 | Outpatient (CLI) | payer OTHER, SELFPAY ==
[2019-12-02 14:02] VITALS: BMI 44.3
[2019-12-29 20:08] VITALS: BMI 48.2
--- NOTE | 2020-01-11 13:54 | DIET.PN ---
Diabetes: Healthy Eating 1 Intervention: ? Discussed pathophysiology of diabetes and impact of nutrition/diet on blood sugar control.? Discussed fed versus non-fed state.?? ? Reviewed importance of Balance, Variety, and Moderation. ? Discussed the effect of carbohydrates/protein/fat on blood sugar control.? ? Stressed importance of consistent carbohydrate intake at each meal and provided instructions for recommended servings/portions of carbohydrates/protein per meal. Provided educational material. ? Reviewed carbohydrate counting and measuring carbohydrate content via serving sizes and reading nutrition labels.? Provided handouts.?? ? Discussed the difference between simple versus complex carbohydrates and the effect of fiber on blood sugar control.? Discussed various methods to increase fiber content in diet. ? Discussed the plate method for creating more carbohydrate conscious balanced meals. ? Stressed importance of meal timing and not going >4-5 hours between meals. Encouraged adding protein to evening snack to support glucose control overnight. ? Discussed importance of making dietary habits part of lifestyle change.
== END ==
PROVIDERS: PCP Family Medicine; Referring Provider Family Medicine; Visit Provider Family Medicine
DX: E11.9 Type 2 diabetes mellitus without complications (principal)
CPT/HCPCS: G0109

== ENCOUNTER → 2020-01-11 15:14 | Outpatient (CLI) | payer OTHER, SELFPAY ==
[2019-12-29 20:08] VITALS: BMI 48.2
[2020-01-11 15:25] LABS: Bacteria Urine None Seen; RBC Urine None Seen (0-5/HPF)
[2020-01-11 15:46] LABS: Appearance Urine UA CLEAR; Bilirubin Urine UA NEGATIVE (NEGATIVE); Color Urine UA YELLOW; Glucose Urine UA NEGATIVE (Negative); Ketones Urine UA NEGATIVE (NEGATIVE); Leukocyte Esterase Urine UA NEGATIVE (NEGATIVE); Nitrite Urine UA NEGATIVE (Negative); Occult Blood Urine UA NEGATIVE (Negative); Protein Urine UA NEGATIVE (Negative); Urobilinogen Urine UA 0.2 E.U./dL (0.2)
[2020-01-11 15:57] LABS: Culture Indicated Urine Cult Not Indicated; Squamous Epithelial Cell Urine 1-5 /HPF (0-5/HPF); WBC Urine 0-1/HPF (0-5/HPF)
[2020-01-11 16:48] LABS: Creatinine Urine Random 35.8 mg/dL; Protein (Total) Urine Random 12 mg/dL (0-12); Protein Creatinine Ratio Urine 0.33 GRAM/24H
== END ==
PROVIDERS: PCP Family Medicine; Referring Provider Internal Medicine Nephrology; Visit Provider Internal Medicine Nephrology
DX: R60.1 Generalized edema (principal); R31.0 Gross hematuria
CPT/HCPCS: 81001; 82570; 84156

== ENCOUNTER → 2020-01-17 14:00 | Oncology outpatient (ONC) | payer OTHER, SELFPAY ==
[2019-06-29 11:34] VITALS: BP 136/87; PULSE 81; RESP 16; TEMP 36.8; O2SAT 98
--- NOTE | 2019-06-29 15:33 | PC.NURSE ---
Dr. Krishnan cleared pt to leave following u/s to r/o DVT lower left extremity. U/S negative for DVT, per Dr. Krishnan. Pt questioned why she didn't have a workup on her chest and lower right leg, as it too is swollen. Notified Dr. Krishnan of pt concerns and questions regarding chest and lower left extremity; per Dr. Krishnan pt here for hematological workup and pt should see PCP or go to ED for acute symptoms. Pt educated of signs of symptoms of acute distress; fever, increased sob, chest pain. According to Pt she recently completed course of antibiotics following pneumonia. Encouraged pt to call PCP regarding questions and concerns..
--- NOTE | 2019-06-29 19:21 | P.CONONC_ITS ---
History of Present Illness - Data of Consult Primary Care Provider: Alejandra Lynch MD - Consult Narrative Reason for consult: Reported history of PE Narrative: Nuvia Alvarado is a 38 year old female who was referred by primary care for evaluation regarding your previous PE to rule out hypercoagulable state. Patient has morbid obesity (BMI of 51), history of smoking with asthma and COPD and a previous history of pneumonia. She is on Combivent inhaler. On February 11 2019 she had presented with respiratory symptoms and had a CT angiogram of the chest at [facility] which was negative for pulmonary embolism however Patchy areas of consolidation within the right middle lobe and the left upper lobe, and left lower lobe is suspicious for multifocal pneumonia versus atelectasis. Three days later she went to with [facility] for chest pain and had another CT angio of the chest on February 14, 2019, this time positive for pulmonary embolus in segmental arteries of the right upper lobe and right lung base. She was started on anticoagulation with warfarin howeve only for 3 months and has been off of anticoagulation since end of April 2019. She quit smoking 10 months ago. She had a spinal fusion surgery in November 2018, timeline however does not fit to this event and therefore this P is presumed to be unprovoked PE Doppler ultrasounds of lower extremity were done and negative for DVT. She had no hillary vation of troponin or BNP. Echocardiogram was not performed. She was discharged from [facility] few days later. She has noted is chronic swelling of her legs in the ankle and tibial area but much more pronounced on the right side over the past 3-4 weeks CC: James Krishnan MD Home Medications and Allergies Home Medications Medication Instructions Recorded Confirmed Type ketoconazole 1 thomas TOPICAL DIRECTED #0 04/07/17 05/11/19 History acetaminophen 500 mg tablet 1,000 mg PO BID tab 09/23/18 05/11/19 History amitriptyline 25 mg PO QPM 09/23/18 05/11/19 History blood sugar diagnostic #50 each 12/08/18 05/11/19 Rx blood-glucose meter #1 each 12/08/18 05/11/19 Rx cyclobenzaprine 10 mg tablet 10 mg PO TID tab 12/08/18 05/11/19 History lancets 33 gauge #100 each 12/08/18 05/11/19 Rx oxycodone 15 mg tablet 7.5 mg PO BID tab MDD 1 tab 12/08/18 05/11/19 History levothyroxine 50 mcg tablet 50 mcg PO DAILY #90 tab 12/13/18 05/11/19 Rx naloxone [Narcan] 1 dose INTRANASAL .ONCE PRN 01/13/19 05/11/19 History TENS units #1 each 02/09/19 05/11/19 Rx ibuprofen 800 mg tablet 800 mg PO TID 02/09/19 05/11/19 History morphine 15 mg tablet,extended 15 mg PO Q8H tab 02/09/19 05/11/19 History release pregabalin 150 mg capsule See Rx Instructions .ROUTE 03/07/19 05/11/19 Rx .COMPLEX #60 capsule triamcinolone acetonide 0.5 % 1 applictn TOP BID #15 gram 03/18/19 05/11/19 Rx topical cream metoprolol tartrate 100 mg tablet 150 mg PO BID #270 tab 05/11/19 05/11/19 Rx fluticasone propionate 50 1 spray NASAL BID #15.8 ml 05/16/19 Rx mcg/actuation nasal spray,suspension duloxetine 30 mg capsule,delayed See Rx Instructions .ROUTE 05/23/19 Rx release .COMPLEX #90 capsule omeprazole 20 mg capsule,delayed 20 mg PO BID #180 cap 05/23/19 Rx release albuterol sulfate 90 mcg/actuation 2 puff INHALATION Q6H PRN #8.5 gram 05/24/19 Rx aerosol inhaler furosemide 20 mg tablet See Rx Instructions PO BID #270 tab 05/24/19 Rx Combivent Respimat 1 puff INHALATION PRN PRN 06/29/19 History aripiprazole [Abilify] 5 mg PO BID 06/29/19 History magnesium 500 mg PO DAILY 06/29/19 06/29/19 History terazosin 5 mg PO BEDTIME 06/29/19 06/29/19 History Allergies Allergy/AdvReac Type Severity Reaction Status Date / Time carisoprodol [CARISOPRODOL] AdvReac Severe urinary Verified 05/31/19 08:48 retention Medical History - Medical, Surgical, Family History Medical History: Medical History (Last Reviewed 02/17/19 @ 11:54 by Marco Bloom MD) Acetaminophen overdose of undetermined intent Onset Date: 12/2015 Cubital tunnel syndrome Fibromyalgia Onset Date: 2014 Intraoperative cardiac arrest during non-cardiac surgery Onset Date: 11/2013 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 Ovarian cyst Plantar fasciitis Pulmonary embolism Suicide attempt Surgical History: Surgical History (Last Reviewed 02/17/19 @ 11:54 by Marco Bloom MD) History of carpal tunnel repair Onset Date: 10/30/14 S/P epidural steroid injection Onset Date: 11/2013 Status post dilation and curettage Onset Date: 2008 Status post laminectomy Onset Date: 09/2016 Family History: Family History (Last Reviewed 02/17/19 @ 11:54 by Marco Bloom MD) Grandfather Diabetes mellitus Family/Other Pancreatic cancer - Social History Smoking Status: Former smoker Review of Systems - Patient Self-Reported Symptoms SR Constitution: Weight loss/gain, Fatigue/Malaise, Night Sweats SR ears, nose, mouth, throat issues: Cough, Bleeding gums, Hoarseness SR respiratory issues: Cough SR Cardiovascular issues: Chest pain, discomfort, tightness, Extreme swelling, Dizzy/lightheaded SR Gastrointestinal issues: Constipation, Heartburn SR Musculoskeletal issues: Joint pain or swelling, Muscle weakness, Muscle pain or cramps, Back or neck pain SR Neuro issues: Headache SR Hematologic issues: Slow healing SR Endocrine issues: Excessive thirst Exam Vital signs: Vital Signs Temp Pulse Resp BP Pulse Ox 06/29/19 11:34 98.3 F 81 16 136/87 98 Intake and Output 06/29/19 06/29/19 06/29/19 07:59 15:59 23:59 Other: Weight 142.7 kg Patient Weight 06/29/19 23:59 Weight 142.7 kg - Constitutional positive no acute distress, positive morbidly obese - Routine Neck Exam Absent: lymphadenopathy - Routine Chest/Breast/Axilla Exam Axillae: Absent: lymphadenopathy - Routine Respiratory Exam Present: Clear to auscultation bilaterally - Routine Cardiovascular Exam Present: RRR - Routine Abdominal Exam Present: soft - Routine Extremities Exam Present: edema. Absent: cyanosis, clubbing Comments: Two to 3+ swelling of the right ankle and tibial area in. The left leg is much less swollen - Routine Skin Exam Present: dry - Routine Neurological Exam Present: oriented X3 Results - Labs CBC of today showed a hemoglobin 9.4 otherwise normal white count and platelet count CMP without any significant abnormality - Imaging Additional studies: Procedures Diagnostic ultrasound of urinary system (05/24/14) Injection or infusion of other therapeutic or prophylactic substance (10/14/13) Insertion of indwelling urinary catheter (05/24/14) Assessment and Plan (1) Pulmonary embolism Current visit: No Status: Acute 38-year-old lady with history of smoking and morbid obesity with a BMI of 51. She is referred for evaluation to rule out hypercoagulable state. She has history of mood disorder and is on Abilify She had a presentation in January 2019 to the ER of [facility] with shortness of breath and chest discomfort and had a CT angiogram of the chest which was negative for PE but showed bilateral patchy changes suggestive for an inflammatory process. Four days later she presented to [facility] with a repeat CT angiogram of the chest this time positive for small pulmonary emboli affecting segmental arteries of the right upper lobe posteriorly and right lung base. Lower extremity Doppler was negative for DVT. Troponin was negative. She was started on anticoagulation with warfarin only for 3 months and this was discontinued in late April 2019. She was also seen by film cleaner Dr. Dallas in May 2019 with a chest x-ra y of June 09 showing improved aeration of the lungs with resolving right basilar pneumonia. He recommended continuing Combivent inhaler and interpreted the symptoms from resolving pneumonia. He recommended a pulmonary function test in future. On today's exam her O2 sat is perfectly normal and she is not tachycardic. She has an asymmetrical swelling of lower extremity particularly affecting the right leg moderately severe. Stat Doppler ultrasound of the right lower extremity performed today was negative for DVT I'm ordering laboratory workup to rule out hypercoagulable state including f actor 5 Leiden mutation, prothrombin gene mutation, lupus anticoagulant screen, antithrombin 3 activity and D-dimer level off anticoagulation. I will see her back in few weeks for follow-up pending these results. At this point I do not see a clear indication to to have her go back on anticoagulation.
[2019-08-03 14:56] VITALS: BP 135/77; PULSE 81; RESP 16; TEMP 36.6; O2SAT 100
--- NOTE | 2019-08-03 14:58 | ONC.PN ---
PN -Subjective Interval history: Nuvia Alvarado is a 38 year old female who was referred by primary care for evaluation regarding your previous PE to rule out hypercoagulable state. Patient has morbid obesity (BMI of 51), history of smoking with asthma and COPD and a previous history of pneumonia. She is on Combivent inhaler. On February 11 2019 she had presented with respiratory symptoms and had a CT angiogram of the chest at [facility] which was negative for pulmonary embolism however Patchy areas of consolidation within the right middle lobe and the left upper lobe, and left lower lobe is suspicious for multifocal pneumonia versus atelectasis. Three days later she went to with [facility] for chest pain and had another CT angio of the chest on February 14, 2019, this time positive for pulmonary embolus in segmental arteries of the right upper lobe and right lung base. She was started on anticoagulation with warfarin howeve only for 3 months and has been off of anticoagulation since end of April 2019. She quit smoking 10 months ago. She had a spinal fusion surgery in November 2018, timeline however does not fit to this event and therefore this P is presumed to be unprovoked PE Doppler ultrasounds of lower extremity were done and negative for DVT. She had no elevation of troponin or BNP. Echocardiogram was not performed. She was discharged from [facility] few days later. She has noted is chronic swelling of her legs in the ankle and tibial area but much more pronounced on the right side over the past 3-4 weeks - Patient Self-Reported Symptoms SR Constitution: Weight loss/gain, Fatigue/Malaise, Night Sweats SR ears, nose, mouth, throat issues: Cough, Bleeding gums, Hoarseness SR respiratory issues: Cough SR Cardiovascular issues: Chest pain, discomfort, tightness, Extreme swelling, Dizzy/lightheaded SR Gastrointestinal issues: Constipation, Heartburn SR Musculoskeletal issues: Joint pain or swelling, Muscle weakness, Muscle pain or cramps, Back or neck pain SR Neuro issues: Headache SR Hematologic issues: Slow healing SR Endocrine issues: Excessive thirst Home Medications and Allergies Home Medications Medication Instructions Recorded Confirmed Type acetaminophen 500 mg tablet 1,000 mg PO BID tab 09/23/18 08/03/19 History amitriptyline 25 mg PO QPM 09/23/18 08/03/19 History blood sugar diagnostic #50 each 12/08/18 08/03/19 Rx blood-glucose meter #1 each 12/08/18 08/03/19 Rx cyclobenzaprine 10 mg tablet 10 mg PO BID tab 12/08/18 08/03/19 History lancets 33 gauge #100 each 12/08/18 08/03/19 Rx levothyroxine 50 mcg tablet 50 mcg PO DAILY #90 tab 12/13/18 08/03/19 Rx naloxone [Narcan] 1 dose INTRANASAL .ONCE PRN 01/13/19 08/03/19 History TENS units #1 each 02/09/19 08/03/19 Rx ibuprofen 800 mg tablet 800 mg PO TID 02/09/19 08/03/19 History morphine 15 mg tablet,extended 15 mg PO Q8H tab 02/09/19 08/03/19 History release triamcinolone acetonide 0.5 % 1 applictn TOP BID #15 gram 03/18/19 08/03/19 Rx topical cream metoprolol tartrate 100 mg tablet 150 mg PO BID #270 tab 05/11/19 08/03/19 Rx fluticasone propionate 50 1 spray NASAL BID #15.8 ml 05/16/19 08/03/19 Rx mcg/actuation nasal spray,suspension omeprazole 20 mg capsule,delayed 20 mg PO BID #180 cap 05/23/19 08/03/19 Rx release aripiprazole [Abilify] 5 mg PO QPM 06/29/19 08/03/19 History magnesium 500 mg PO DAILY 06/29/19 08/03/19 History potassium chloride 20 mEq 20 meq PO DAILY 07/07/19 08/03/19 History tablet,extended release terazosin 5 mg capsule 10 mg PO BEDTIME cap 07/07/19 08/03/19 History albuterol sulfate 2 puff INHALATION Q4-6H PRN #8.5 07/11/19 08/03/19 Rx gram albuterol sulfate [ProAir HFA] 2 puff INHALATION PRN PRN 07/11/19 08/03/19 History arformoterol [Brovana] 2 ml INHALATION BID 07/11/19 08/03/19 History doxycycline hyclate 100 mg PO BID #20 tab 07/11/19 08/03/19 Rx duloxetine 90 mg PO DAILY 07/11/19 08/03/19 History fluticasone propion-salmeterol 1 puff INHALATION BID 07/11/19 08/03/19 History [Advair Diskus] hydrocortisone 1 applic TOPICAL DIRECTED 07/11/19 08/03/19 History ketoconazole 1 applic TOPICAL DIRECTED 07/11/19 08/03/19 History ketoconazole 1 applic TOPICAL DAILY 07/11/19 08/03/19 History oxycodone 7.5 - 15 mg PO Q6-8H PRN MDD 1 07/11/19 08/03/19 History prednisone 60 mg PO DAILY #15 tab 07/11/19 08/03/19 Rx pregabalin 150 mg PO BID 07/11/19 08/03/19 History torsemide 20 mg tablet 20 mg PO DAILY #30 tab 07/22/19 08/03/19 Rx torsemide 20 mg tablet 40 mg PO DAILY #60 tab 08/02/19 08/03/19 Rx Allergies Allergy/AdvReac Type Severity Reaction Status Date / Time carisoprodol [CARISOPRODOL] AdvReac Severe urinary Verified 07/22/19 14:07 retention Results - Imaging Additional studies: Procedures Diagnostic ultrasound of urinary system (05/24/14) Injection or infusion of other therapeutic or prophylactic substance (10/14/13) Insertion of indwelling urinary catheter (05/24/14) Assessment and Plan (1) Pulmonary embolism Current visit: No Status: Acute 38-year-old lady with history of smoking and morbid obesity with a BMI of 51. She is referred for evaluation to rule out hypercoagulable state. She has history of mood disorder and is on Abilify She had a presentation in January 2019 to the ER of [facility] with shortness of breath and chest discomfort and had a CT angiogram of the chest which was negative for PE but showed bilateral patchy changes suggestive for an inflammatory process. Four days later she presented to [facility] with a repeat CT angiogram of the chest this time positive for small pulmonary emboli affecting segmental arteries of the right upper lobe posteriorly and right lung base. Lower extremity Doppler was negative for DVT. Troponin was negative. She was started on anticoagulation with warfarin only for 3 months and this was discontinued in late April 2019. She was also seen by sign writer letterer or painter Dr. Dallas in May 2019 with a chest x-ray of June 09 showing improved aeration of the lungs with resolving right basilar pneumonia. He recommended continuing Combivent inhaler and interpreted the symptoms from resolving pneumonia. He recommended a pulmonary function test in future. On today's exam her O2 sat is perfectly normal and she is not tachycardic. She has an asymmetrical swelling of lower extremity particularly affecting the right leg moderately severe. Stat Doppler ultrasound of the right lower extremity performed today was negative for DVT I'm ordering laboratory workup to rule out hypercoagulable state including factor 5 Leiden mutation, prothrombin gene mutation, lupus anticoagulant screen, antithrombin 3 activity and D-dimer level off anticoagulation. I will see her back in few weeks for follow-up pending these results. At this point I do not see a clear indication to to have her go back on anticoagulation.
--- NOTE | 2019-08-24 08:43 | ONC.PN ---
PN -Subjective Interval history: Nuvia Alvarado is a 38 year old female who returns for evaluation and management of previous PE to rule out hypercoagulable state. Patient has risk factors of morbid obesity (BMI of 51), history of smoking with asthma and COPD and a previous history of pneumonia. She is on Combivent inhaler. On February 11 2019 she had presented with respiratory symptoms and had a CT angiogram of the chest at [facility] which was negative for pulmonary embolism however patchy areas of consolidation within the right middle lobe and the left upper lobe, and left lower lobe is suspicious for multifocal pneumonia versus atelectasis. Three days later (02/14/2019) she went to with [facility] for chest pain and had another CT angio of the chest on February 14, 2019, this time positive for pulmonary embolus in segmental arteries of the right upper lobe and right lung base. She was started on anticoagulation with warfarin, however only for 3 months and stopped anticoagulation since end of April 2019. She quit smoking in July 2018. She had a spinal fusion surgery in November 2018, timeline however does not fit to this event and therefore this PE is presumed to be unprovoked PE. Doppler ultrasounds of lower extremity were done and negative for DVT. She had no elevation of troponin or BNP. Echocardiogram was not performed. She was discharged from [facility] in stable condition. Coagulation profile was negative. She had no mutations of factor V Leiden or prothrombin gene. She had normal protein C, protein S, antithrombin, and cardiolipin studies. She has noted is chronic swelling of her legs in the ankle and tibial area but much more pronounced on the right side. - Patient Self-Reported Symptoms SR Constitution: Weight loss/gain, Fatigue/Malaise, Night Sweats SR ears, nose, mouth, throat issues: Bleeding gums, Hoarseness SR respiratory issues: Cough SR Cardiovascular issues: Extreme swelling, Dizzy/lightheaded SR Gastrointestinal issues: Nausea, Heartburn SR Musculoskeletal issues: Joint pain or swelling, Muscle weakness, Muscle pain or cramps, Back or neck pain, Cold hands or feet, Difficulty walking, Bone pain SR Neuro issues: Headache, Lightheaded/dizzy, Numbness or tingling, Tremors or shaking SR Hematologic issues: Slow healing SR Endocrine issues: Excessive thirst, Hot flashes Home Medications and Allergies Home Medications Medication Instructions Recorded Confirmed Type acetaminophen 500 mg tablet 1,000 mg PO BID tab 09/23/18 08/03/19 History amitriptyline 25 mg PO QPM 09/23/18 08/03/19 History blood sugar diagnostic #50 each 12/08/18 08/03/19 Rx blood-glucose meter #1 each 12/08/18 08/03/19 Rx cyclobenzaprine 10 mg tablet 10 mg PO BID tab 12/08/18 08/03/19 History lancets 33 gauge #100 each 12/08/18 08/03/19 Rx levothyroxine 50 mcg tablet 50 mcg PO DAILY #90 tab 12/13/18 08/03/19 Rx naloxone [Narcan] 1 dose INTRANASAL .ONCE PRN 01/13/19 08/03/19 History TENS units #1 each 02/09/19 08/03/19 Rx ibuprofen 800 mg tablet 800 mg PO TID 02/09/19 08/03/19 History morphine 15 mg tablet,extended 15 mg PO Q8H tab 02/09/19 08/03/19 History release triamcinolone acetonide 0.5 % 1 applictn TOP BID #15 gram 03/18/19 08/03/19 Rx topical cream metoprolol tartrate 100 mg tablet 150 mg PO BID #270 tab 05/11/19 08/03/19 Rx fluticasone propionate 50 1 spray NASAL BID #15.8 ml 05/16/19 08/03/19 Rx mcg/actuation nasal spray,suspension omeprazole 20 mg capsule,delayed 20 mg PO BID #180 cap 05/23/19 08/03/19 Rx release aripiprazole [Abilify] 5 mg PO QPM 06/29/19 08/03/19 History magnesium 500 mg PO DAILY 06/29/19 08/03/19 History potassium chloride 20 mEq 20 meq PO DAILY 07/07/19 08/03/19 History tablet,extended release terazosin 5 mg capsule 10 mg PO BEDTIME cap 07/07/19 08/03/19 History albuterol sulfate 2 puff INHALATION Q4-6H PRN #8.5 07/11/19 08/03/19 Rx gram albuterol sulfate [ProAir HFA] 2 puff INHALATION PRN PRN 07/11/19 08/03/19 History arformoterol [Brovana] 2 ml INHALATION BID 02/17/20 03/11/20 History doxycycline hyclate 100 mg PO BID #20 tab 07/11/19 08/03/19 Rx duloxetine 90 mg PO DAILY 07/11/19 08/03/19 History fluticasone propion-salmeterol 1 puff INHALATION BID 07/11/19 08/03/19 History [Advair Diskus] hydrocortisone 1 applic TOPICAL DIRECTED 07/11/19 08/03/19 History ketoconazole 1 applic TOPICAL DIRECTED 07/11/19 08/03/19 History ketoconazole 1 applic TOPICAL DAILY 07/11/19 08/03/19 History oxycodone 7.5 - 15 mg PO Q6-8H PRN MDD 1 07/11/19 08/03/19 History prednisone 60 mg PO DAILY #15 tab 07/11/19 08/03/19 Rx pregabalin 150 mg PO BID 07/11/19 08/03/19 History furosemide 40 mg tablet See Rx Instructions PO BID #90 tab 08/10/19 08/10/19 Rx Allergies Allergy/AdvReac Type Severity Reaction Status Date / Time carisoprodol [CARISOPRODOL] AdvReac Severe urinary Verified 08/10/19 13:44 retention Exam Narrative: HEENT: Pupils equally round reactive to light extraocular muscles intact sclerae anicteric conjunctiva pink mucous membranes moist no oral lesions Nodes no palpable adenopathy in the neck axilla or groin Chest: Clear throughout Cardiac exam regular rate and rhythm with normal S1 and S2 Abdomen: Soft nontender with normoactive bowel tones no splenomegaly or masses Extremities: Trace pedal edema 2+ distal pulses no calf tenderness Results - Imaging Additional studies: Procedures Diagnostic ultrasound of urinary system (05/24/14) Injection or infusion of other therapeutic or prophylactic substance (10/14/13) Insertion of indwelling urinary catheter (05/24/14) Assessment and Plan (1) Pulmonary embolism Current visit: No Status: Acute 38-year-old lady with risk factors including history of smoking and morbid obesity with a BMI of 51. She was referred for evaluation to rule out hypercoagulable state. She has history of mood disorder and is on Abilify She presented in January 2019 to the ER of [facility] with shortness of breath and chest discomfort and had a CT angiogram of the chest which was negative for PE, but showed bilateral patchy changes suggestive for an inflammatory process. A few days later she presented to [facility] with a repeat CT angiogram of the chest this time positive for small pulmonary emboli affecting segmental arteries of the right upper lobe posteriorly and right lung base. Lower extremity Doppler was negative for DVT. Troponin was negative. She was started on anticoagulation with warfarin for 3 months and this was discontinued in late April 2019. She was also seen by hospital scientist Dr. Dallas in May 2019 with a chest x-ray of June 09 showing improved aeration of the lungs with resolving right basilar pneumonia. He recommended continuing Combivent inhaler and interpreted the symptoms from resolving pneumonia. He recommended a pulmonary function test in future. On today's exam her O2 sat remains normal and she is not tachycardic. She has slight swelling of lower extremity particularly affecting the right leg. Prior Doppler ultrasound of the right lower extremity performed today was negative for DVT Coagulation profile was unremarkable. She had no mutations of factor V Leiden or prothrombin gene. She had no evidence of deficiencies of protein C, protein S, antithrombin, and lupus anticoagulant studies were normal. D-dimer, which is nonspecific, was elevated. At this point I do not see a definitive indication to to have her go back on anticoagulation. We discussed risks factors such as weight and sedentary lifestyle. She has stopped smoking, and does not use oral contraceptives. She was advised to avoid long trips where she would be relatively immobilized. Return to clinic if needed. Otherwise, follow-up with her primary care provider.
[2019-08-24 13:41] VITALS: BP 138/99; PULSE 90; RESP 22; TEMP 36.8; O2SAT 95
[2019-10-10 12:24] VITALS: BP 137/81; PULSE 100; RESP 18; TEMP 36.9; O2SAT 97
--- NOTE | 2019-10-10 12:50 | ONC.PN ---
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 Patient has risk factors of morbid obesity (BMI of 51), history of smoking with asthma and COPD and a previous history of pneumonia. She is on Combivent inhaler. On February 11 2019 she had presented with respiratory symptoms and had a CT angiogram of the chest at [facility] which was negative for pulmonary embolism; however patchy areas of consolidation within the right middle lobe and the left upper lobe, and left lower lobe is suspicious for multifocal pneumonia versus atelectasis. Three days later (02/14/2019) she went to with [facility] for chest pain and had another CT angio of the chest on February 14, 2019, this time positive for pulmonary embolus in segmental arteries of the right upper lobe and right lung base. She was started on anticoagulation with warfarin, however only for 3 months and stopped anticoagulation since end of April 2019. She quitted smoking in July 2018. She had a spinal fusion surgery in November 2018, timeline however does not fit to this event and therefore this PE is presumed to be unprovoked PE. Doppler ultrasounds of lower extremity were done and negative for DVT. She had no elevation of troponin or BNP. Echocardiogram was not performed. She was discharged from [facility] in stable condition. Coagulation profile was negative. She had no mutations of factor V Leiden or prothrombin gene. She had normal protein C, protein S, antithrombin, and cardiolipin studies. Interval History Since her previous visit, she experienced 'seizure activity'. Per [facility], she was found to be unresponsive by her twice in Aug 2019. CT head and MR brain showed no intracranial acute abnormalities. On 09/21/2019, he presented to ER for worsening chest pain and nausea at [facility]. She also had left leg pain behind the knee in the beginning, and then in the calf. No fever. No shortness of breath. Tired. She was started on Lovenox and coumadin. Patient was sent to [facility] on 09/22/2019 from [facility] because of seizure-like activity. At [facility], patient underwent MR brain which showed incidental hyper intense lesion in right parotid gland. Otherwise normal except mild white matter disease. In addition left lower extremity Doppler study showed left-sided deep venous thrombosis. She has had chronic headache all the time. She is taking Tylenol and Ibuprofen. She is taking oxycodone for her back pain. - Patient Self-Reported Symptoms SR Constitution: Weight loss/gain, Fatigue/Malaise, Night Sweats SR ears, nose, mouth, throat issues: Bleeding gums, Hoarseness SR respiratory issues: Cough SR Cardiovascular issues: Dizzy/lightheaded SR Gastrointestinal issues: Nausea SR Genitourinary issues: Frequent urination SR Musculoskeletal issues: Joint pain or swelling, Muscle weakness, Muscle pain or cramps, Back or neck pain, Cold hands or feet, Difficulty walking, Bone pain SR Neuro issues: Headache SR Hematologic issues: Slow healing SR Endocrine issues: Excessive thirst, Hot flashes - Additional ROS All systems PM: reviewed and no additional remarkable complaints except as stated Home Medications and Allergies Home Medications Medication Instructions Recorded Confirmed Type acetaminophen 500 mg tablet 1,000 mg PO TID tab 09/23/18 10/10/19 History amitriptyline 25 mg PO QPM 09/23/18 10/10/19 History blood sugar diagnostic #50 each 12/08/18 10/10/19 Rx blood-glucose meter #1 each 12/08/18 10/10/19 Rx lancets 33 gauge #100 each 12/08/18 10/10/19 Rx naloxone [Narcan] 1 dose INTRANASAL .ONCE PRN 01/13/19 10/10/19 History TENS units #1 each 02/09/19 10/10/19 Rx ibuprofen 800 mg tablet 800 mg PO TID 02/09/19 10/10/19 History morphine 15 mg tablet,extended 15 mg PO Q8H tab 02/09/19 10/10/19 History release metoprolol tartrate 100 mg tablet 150 mg PO BID #270 tab 05/11/19 10/10/19 Rx omeprazole 20 mg capsule,delayed 20 mg PO BID #180 cap 05/23/19 10/10/19 Rx release aripiprazole [Abilify] 5 mg PO QPM 06/29/19 10/10/19 History magnesium 500 mg PO DAILY 06/29/19 10/10/19 History potassium chloride 20 mEq 20 meq PO DAILY 07/07/19 10/10/19 History tablet,extended release terazosin 5 mg capsule 10 mg PO BEDTIME cap 07/07/19 10/10/19 History albuterol sulfate 2 puff INHALATION Q4-6H PRN #8.5 07/11/19 10/10/19 Rx gram fluticasone propion-salmeterol 1 puff INHALATION BID 07/11/19 10/10/19 History [Advair Diskus] oxycodone 10 mg PO Q6-8H PRN MDD 1 07/11/19 10/10/19 History levothyroxine 50 mcg tablet 50 mcg PO DAILY #90 tab 09/06/19 10/10/19 Rx duloxetine 30 mg capsule,delayed 90 mg PO DAILY #90 cap 09/13/19 10/10/19 Rx release pregabalin 150 mg capsule 150 mg PO BID #60 cap 09/20/19 10/10/19 Rx cyclobenzaprine 10 mg tablet 10 mg PO BID #60 tab 09/29/19 10/10/19 Rx enoxaparin 150 mg/mL subcutaneous 140 mg SUBCUT Q12H #14 ml 10/06/19 10/10/19 Rx syringe warfarin 5 mg tablet 10 mg PO DAILY #180 tab 10/06/19 10/10/19 Rx furosemide 120 mg PO DAILY 10/10/19 10/10/19 History potassium PO BID 10/10/19 History Allergies Allergy/AdvReac Type Severity Reaction Status Date / Time carisoprodol [CARISOPRODOL] AdvReac Severe urinary Verified 10/10/19 14:21 retention fosphenytoin AdvReac Intermediate ITCHING Verified 10/10/19 14:21 Exam Vital signs: Vital Signs Temp Pulse Resp BP Pulse Ox 10/10/19 12:24 98.4 F 100 H 18 137/81 97 Intake and Output 10/09/19 10/10/19 10/10/19 23:59 07:59 15:59 Other: Weight 137 kg Patient Weight 10/10/19 23:59 Weight 137 kg Narrative: ECOG 1 Vitals above reviewed Constitutional: well developed, and well nourished, morbid obese, and well groomed, not in any acute respiratory distress, pleasant and cooperative. HEENT: NCAT, EOMI, PERRLA. Anicteric sclera. Neck: Supple and symmetrical, no palpable masses. No palpable thyromegaly. Respiratory: No use of accessory muscles. CTAB, no wheezes. Cardiovascular: RRR, S1 and S2 normal, no M/G/R. No edema of lower extremities. Abdomen: Soft, mild tender without specific locations, difficult to examine hepato-splenomegaly due to obesity. Lymphatic: no palpable palpable lymph nodes in the neck, or axilla Musculoskeletal: normal gait and station Neurological: CN II-XII grossly intact. No focal motor or sensory deficit. Psychiatric: Normal judgment and insight. AOx3. Normal memory (recent and remote). Normal mood and affect. Results - Labs Reviewed. - Imaging Additional studies: Procedures Diagnostic ultrasound of urinary system (05/24/14) Injection or infusion of other therapeutic or prophylactic substance (10/14/13) Insertion of indwelling urinary catheter (05/24/14) Assessment and Plan (1) Pulmonary embolism Overview: Nuvia Alvarado is a 38 year old female with recurrent VTE. Patient has risk factors of morbid obesity (BMI of 51), history of smoking with asthma and COPD and a previous history of pneumonia. She is on Combivent inhaler. She experienced her first episode of pulmonary embolism in 01/2019. She presented with chest pain. She received anticoagulation for 3 months and stopped since end of April 2019. Coagulation profile was negative. She had no mutations of factor V Leiden or prothrombin gene. She had normal protein C, protein S, antithrombin, and cardiolipin studies. She had her second episode of pulmonary embolism in 08/2019 and diagnosis of left leg DVT at the same time. Before and after the second episode, she had seizure attack with symptoms of unresponsiveness. CT/MR head showed no acute intracranial abnormalities. She is now taking Lovenox and Coumadin. She is being followed at [facility] at [facility]. She quitted smoking in July 2018, but admitted that she restarted smoking recently. Assessment I explained to the patient that venous thromboembolism has a variety of different etiologies including hereditary, chronic medical conditions for example obesity, smoking, sleep apnea, or sedentary lifestyle, or potential malignancies. I explained to her that the hereditary workup for most common genetic changes has been negative. Clinically I do not think there is any sign or symptom to suggest malignancy. I talked with her that most likely her venous thromboembolism stems from her medical comorbidities especially obesity, smoking, COPD and sleep apnea. Patient voiced understanding. I talked with her that it is very important for her to follow-up with the warfarin clinic to adjust the dosage and monitoring the INR. I talked with her that I will see her on an as-needed basis. Plan: Continue Lovenox and Warfarin at PCP office RTC PRN
[2020-01-09] MEDS: IRON SUCROSE 200 MG in SODIUM CHLORIDE 0.9% 100 ML 220 ML IV (13:07)
[2020-01-09 13:21] VITALS: BP 130/75; PULSE 87; RESP 16; TEMP 36.6; O2SAT 95
[2020-01-11] MEDS: IRON SUCROSE 200 MG in SODIUM CHLORIDE 0.9% 100 ML 220 ML IV (14:22)
[2020-01-14 13:00] VITALS: BP 126/70; PULSE 98; RESP 20; TEMP 36.6; O2SAT 97
[2020-01-14] MEDS: IRON SUCROSE 200 MG in SODIUM CHLORIDE 0.9% 100 ML 220 ML IV (13:56)
--- NOTE | 2020-01-14 14:03 | PC.NURSE ---
Addendum entered by Mimi Corado R.N. 01/14/20 15:52: Pt tolerated iron infusion well without issue. Completed at 1445, PIV removed, no bleeding noted. Pt voided X1 during stay. No further voiced concerns, states next infusion is next Thursday. Pt left unit up ad chasidy in no distress with her at her side at 1452. Original Note: Day Shift-OP Pt arrived up ad chasidy with her into room 201, settled into recliner chair. Arrived at 1300. Tea offered and given to pt and her . 1 IV attempt by this RN and 2 attempts by [employer] unsuccessful. 4th attempt by another AC RN successful IV placement to left FA # 22g. VSS, afebrile. Iron infusion started at 1400. Pt aware of call light. No other voiced concerns.
[2020-01-17 14:23] VITALS: BP 117/71; PULSE 75; RESP 16; TEMP 36.8; O2SAT 95
[2020-01-17] MEDS: IRON SUCROSE 200 MG in SODIUM CHLORIDE 0.9% 100 ML 220 ML IV (14:29)
== END ==
PROVIDERS: Referring Provider Family Medicine; Visit Provider Family Medicine
DX: D50.9 Iron deficiency anemia, unspecified
CPT/HCPCS: 36415; 80053; 81240; 81241; 85025; 85300; 85303; 85306; 85379; 85597; 85613; 85730; 93971; 96365; 99205; 99213; 99214; 99215; J1756

== ENCOUNTER → 2020-01-18 15:42 | Outpatient (CLI) | payer OTHER, SELFPAY ==
[2019-12-29 20:08] VITALS: BMI 48.2
[2020-01-18 20:17] LABS: Urine N gonorrhoeae NOT DETECTED
[2020-01-18 20:30] LABS: Urine Chlamydia NOT DETECTED
== END ==
PROVIDERS: PCP Family Medicine; Visit Provider Family Medicine
DX: Z11.3 Encounter for screening for infections with a predominantly sexual mode of transmission (principal)
CPT/HCPCS: 87491; 87591

== ENCOUNTER → 2020-01-18 16:21 | Outpatient (CLI) | payer OTHER, SELFPAY ==
[2019-12-29 20:08] VITALS: BMI 48.2
[2020-01-18 17:40] LABS: Add Manual Diff / Slide Review NO; Basophils Absolute Auto 0 /uL (0-100); Basophils Percent Auto 0.4 % (0-2); Eosinophils Absolute Auto 100 /uL (0-450); Eosinophils Percent Auto 1.1 % (2-4); Hematocrit 35.8 % (36-46); Lymphocytes Absolute Auto 1000 /uL (1100-4500); Lymphocytes Percent Auto 21.9 % (25-40); Mean Corpuscular HGB Conc 30.6 % (30-36); Mean Corpuscular Hemoglobin 24.1 PG (26-34); Mean Corpuscular Volume 78.6 fL (80-100); Monocytes Absolute Auto 500 /uL (0-900); Monocytes Percent Auto 9.6 % (3-14); Neutrophils Absolute Auto 3200 /uL (1500-7000); Platelet Count 249 X10^3/uL (150-400); Red Blood Cell Count 4.55 X10^6/uL (4.0-5.2); Red Cell Distribution Width 26.6 % (11.6-14.8); White Blood Cell Count 4.7 X10^3/uL (4.5-11.0)
[2020-01-18 17:47] LABS: Hemoglobin A1C% w Est Avg Glu 5.2 % (4.0-6.0)
[2020-01-18 18:26] LABS: Anisocytosis 3+; Hypochromasia 2+
[2020-01-18 18:27] LABS: Microcytosis 1+
== END ==
PROVIDERS: PCP Family Medicine; Referring Provider Family Medicine; Visit Provider Family Medicine
DX: D64.9 Anemia, unspecified (principal); E11.9 Type 2 diabetes mellitus without complications; Z11.3 Encounter for screening for infections with a predominantly sexual mode of transmission
CPT/HCPCS: 36415; 83036; 85025; 87491; 87591

== ENCOUNTER → 2020-01-26 14:08 | Outpatient (CLI) | payer OTHER, SELFPAY ==
[2019-12-29 20:08] VITALS: BMI 48.2
[2020-01-26 15:52] LABS: Alanine Aminotransferase 13 IU/L (<35); Albumin 4.1 g/dL (3.5-5.0); Albumin Globulin Ratio 1.4 (1.0-2.8); Alkaline Phosphatase 71 U/L (38-126); Aspartate Aminotransferase 23 IU/L (14-36); Bilirubin Total 0.3 mg/dL (0.2-1.3); Bilirubin Unconjugated 0.2 mg/dL (0.0-1.1); Globulin 2.9 g/dL (1.7-4.1); HEMOLYSIS < 15 (0-50)
[2020-01-26 16:50] LABS: HIV 1 & 2 Ab/Ag 4th Gen Combo NEGATIVE (NEGATIVE)
[2020-01-27 05:11] LABS: RPR Screen Non Reactive (Non Reactive)
== END ==
PROVIDERS: PCP Family Medicine; Referring Provider Family Medicine; Visit Provider Nurse Practitioner Occupational Health
DX: F11.20 Opioid dependence, uncomplicated (principal)
CPT/HCPCS: 36415; 80076; 86592; 87389

== ENCOUNTER 2020-01-30 05:32 | Emergency (ER) | payer OTHER, SELFPAY ==
[2019-12-29 20:08] VITALS: BMI 48.2
[2020-01-30] VITALS (9 sets, daily range): BP systolic 120–176; BP diastolic 58–77; PULSE 94–119; RESP 24; TEMP 37; O2SAT 93–98; BMI 46.5
--- NOTE | 2020-01-30 05:35 | ED_ITS ---
HPI - Chest Pain <Dank Eckert - Last Filed: 01/30/20 20:25> General Chief Complaint: Chest Pain Stated Complaint: chest pain, fever and body aches nausea Time Seen by Provider: 01/30/20 05:35 Source: patient and family Mode of arrival: Ambulatory Limitations: no limitations History of Present Illness HPI narrative: 39-year-old female daily smoker with extensive medical history including morbid obesity, pulmonary embolisms, DVT, hypertension, chronic pain and opioid dependence, alcohol abuse, asthma, diabetes, depression, sleep apnea presents with her for evaluation of sharp pleuritic type chest pain associated with deep breaths, subjective fever, and nausea since yesterday morning. She states her pain is worse with motion, palpation or deep breath. She has had some dry cough but denies the production of any bloody sputum. She states that she has been taking her medications as directed but for some reason her INR has been low lately and questions whether not she has another pulmonary embolism. She denies exposure to persons known to have coronavirus but is un sure. As stated, she is nauseated but denies any vomiting. She denies any abdominal pain or urinary complaints. She denies any recent seizure activity. She was most recently hospitalized at [facility] in the end of August for pulmonary embolism and just prior to that had bed at [facility] for evaluation of seizure activity which was thought to be nonepileptic in nature. She denies any change in medications or diet. She was most recently here a few weeks ago and evaluated for syncope MD complaint: chest pain Onset (ago): hour(s) Duration: intermittent Onset: during rest Pain location: substernal Severity: moderate Quality: sharp Pain radiation: none Relieving factors: remaining still Exacerbating factors: inspiration and palpation Context: history of DVT/PE Associated symptoms: nausea, dyspnea, fever and cough Related Data On Oral Contraceptives: No Home Medications Medication Instructions Recorded Confirmed acetaminophen 500 mg tablet 2,000 mg PO BID tab 09/23/18 01/18/20 magnesium 500 mg PO DAILY 06/29/19 01/18/20 potassium chloride 20 mEq 20 meq PO DAILY 07/07/19 01/18/20 tablet,extended release fluticasone propion-salmeterol 1 puff INHALATION BID 07/11/19 01/18/20 [Advair Diskus] furosemide 60 mg PO QPM 12/02/19 01/18/20 furosemide 100 mg PO QAM 12/02/19 01/18/20 warfarin [Coumadin] 5 mg PO Q OTHER DAY 12/02/19 01/18/20 warfarin [Coumadin] 10 mg PO Q OTHER DAY 12/02/19 01/18/20 Zubsolv 1 tab SUBLINGUAL BID 12/29/19 01/18/20 aripiprazole [Abilify] 5 mg PO BID 12/29/19 01/18/20 cyclobenzaprine 10 mg PO BID 12/29/19 01/18/20 duloxetine 90 mg PO DAILY 12/29/19 01/18/20 metoprolol tartrate 12.5 mg PO BID 12/29/19 01/18/20 ferrous fumarate 325 mg (106 mg 325 mg PO BID 01/04/20 01/18/20 iron) tablet terazosin 2 mg capsule 2 mg PO DAILY 01/04/20 01/18/20 Previous Rx's Medication Instructions Recorded blood sugar diagnostic #50 each 12/08/18 blood-glucose meter #1 each 12/08/18 lancets 33 gauge #100 each 12/08/18 TENS units #1 each 02/09/19 albuterol sulfate 2 puff INHALATION Q4-6H PRN #8.5 07/11/19 gram pregabalin 150 mg capsule 150 mg PO BID #60 cap 09/20/19 Compressioin Stockings #1 ea 10/13/19 omeprazole 20 mg capsule,delayed 20 mg PO BID #180 cap 01/02/20 release varenicline 0.5 mg (11)-1 mg (42) See Rx Instructions PO PER PKG DIR 01/04/20 tablets in a dose pack #53 each levothyroxine 50 mcg tablet 50 mcg PO BEDTIME #60 tab 01/10/20 levonorgestrel 20 mcg/24 hours (5 1 device INTRAUTERINE ONCE #1 each 01/18/20 yrs) 52 mg intrauterine device Allergies Allergy/AdvReac Type Severity Reaction Status Date / Time carisoprodol [CARISOPRODOL] AdvReac Severe urinary Verified 01/18/20 15:30 retention fosphenytoin AdvReac Intermediate ITCHING Verified 01/18/20 15:30 Review of Systems <Dank Eckert DO - Last Filed: 09/07/20 20:25> Constitutional Constitutional: Denies chills, Reports fatigue, Reports fever(s), Denies frequent falls, Denies lethargy and Denies weakness Eyes Eyes: Denies change in vision, Denies eye discharge, Denies irritation and Denies loss of vision ENT Ears, Nose, Mouth, and Throat: Denies change in voice, Denies dizziness, Denies neck pain, Denies sore throat and Denies throat swelling Cardiovascular Cardiovascular: Reports chest pain, Denies irregular heart rhythm, Denies lightheadedness, Denies palpitations, Reports dyspnea, Denies dyspnea on exertion and Denies orthopnea Respiratory Respiratory: Reports cough, Reports pain on inspiration, Reports dyspnea, Denies dyspnea on exertion and Denies wheezing Gastrointestinal Gastrointestinal: Denies abdominal pain, Denies change in bowel habits, Denies diarrhea, Reports nausea and Denies vomiting Musculoskeletal Musculoskeletal: Denies neck pain and Denies numbness Integumentary/Breasts Skin/Breast: Denies pruritus, Denies erythema, Denies rash and Denies wounds Neurologic Neurologic: Denies behavioral changes, Denies confusion, Denies dizziness, Den ies frequent falls, Denies loss of vision, Denies numbness and Denies weakness Psychiatric Psychiatric: Denies anxiety, Denies behavioral changes, Denies confusion, Denies depression, Denies homicidal ideation and Denies suicidal ideation Endocrine Endocrine: Reports fatigue, Denies flushing and Denies palpitations Hematologic/Lymphatic Hematologic/Lymphatic: Denies easy bruising Allergic/Immunologic Allergic/Immunologic: Denies urticaria, Denies throat swelling and Denies wheezing Patient History <Dank Eckert DO - Last Filed: 01/30/20 20:25> Medical History Acetaminophen overdose of undetermined intent (Resolved 12/2015) Alcoholism (Acute) Asthma (Chronic) Cubital tunnel syndrome (Chronic) Depression (Chronic 02/08/14) DM type 2 (diabetes mellitus, type 2) (Acute) DVT (deep venous thrombosis) (Acute) Essential hypertension (Chronic) Fibromyalgia (Chronic 03/02/15) Intraoperative cardiac arrest during non-cardiac surgery (Resolved 11/2013) 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 (Chronic) Morbid obesity (Chronic) Narcotic habituation, continuous (Acute) Obstipation (Inactive) LYLA (obstructive sleep apnea) (Chronic) Ovarian cyst (Chronic) Plantar fasciitis (Chronic) Psychogenic nonepileptic seizure (Acute) Pulmonary embolism (Acute) Status post laminectomy (Inactive 12/14/15) Suicide attempt (Resolved) Tylenol overdose (Resolved) Urinary retention (Acute) Surgical History History of carpal tunnel repair (Resolved 10/30/14) S/P epidural steroid injection (Resolved 11/2013) Status post dilation and curettage (Resolved 2008) Status post laminectomy (Resolved 09/2016) Family History Grandfather Diabetes mellitus Family/Other Pancreatic cancer Social History household members: spouse Smoking Status: Current every day smoker alcohol intake: current eating out: rarely or never Type(s) of exercise: normal ROM and activity and sedentary lifestyle Smoking Status: Current every day smoker alcohol intake frequency: a few times a week Substance Use Type: does not use Exam <Dank Eckert DO - Last Filed: 01/30/20 20:25> Narrative Exam Narrative: GENERAL: [39] year old patient appears stated age. Morbid obesity, flat affect HEAD: Atraumatic. Normocephalic. EYES: Pupils equal round and reactive. Extraocular motions intact. No scleral icterus. No injection or drainage. ENT: Nose without bleeding, purulent drainage. Throat without erythema, tonsillar hypertrophy or exudate. Airway patent. NECK: Trachea midline. Non tender CARDIOVASCULAR: tachycardic and regular rhythm without murmurs, gallops, or rubs. RESPIRATORY: Clear to auscultation. Breath sounds equal bilaterally. No wheezes, rales, or rhonchi. Anterior chest tender to palpation GASTROINTESTINAL: Abdomen soft, non-tender, nondistended. EXTREMITIES: No edema or joint tenderness. BACK: Nontender without deformity or crepitance. No flank tenderness. NEURO: AOx3. SKIN: No rash or erythema of visible areas Initial Vital Signs Initial Vital Signs: Vital Signs Temperature 98.6 F 01/30/20 05:44 Pulse Rate 119 H 01/30/20 05:44 Respiratory Rate 24 01/30/20 05:44 Blood Pressure 176/77 H 01/30/20 05:44 Pulse Oximetry 98 01/30/20 05:44 <DO Lilibeth Saleh Last Filed: 01/30/20 14:09> Initial Vital Signs Initial Vital Signs: Vital Signs Temperature 98.6 F 01/30/20 05:44 Pulse Rate 119 H 01/30/20 05:44 Respiratory Rate 24 01/30/20 05:44 Blood Pressure 176/77 H 01/30/20 05:44 Pulse Oximetry 98 01/30/20 05:44 Course <DO Lilibeth Morgan Last Filed: 01/30/20 20:25> Course Course Narrative: patient signed out to Dr. Martniez to complete evaluation and disposition. CT has just been completed Orders Ordered: Discontinued Medications Sodium Chloride (Normal Saline 0.9%) 1,000 mls @ 125 mls/hr IV CONT KRISTIN Last Admin: 01/30/20 06:24 Dose: 125 mls/hr Documented by: PARKER Ketorolac Tromethamine (Toradol) 15 mg IV NOW ONE Stop: 01/30/20 05:44 Last Admin: 01/30/20 06:24 Dose: 15 mg Documented by: PARKER Vital Signs Vital signs: Vital Signs - 8 hr 01/30/20 06:26 01/30/20 06:30 01/30/20 07:00 Pulse Rate 98 H 104 H 98 H Blood Pressure Pulse Oximetry 96 95 95 01/30/20 07:02 01/30/20 07:30 01/30/20 08:00 Pulse Rate 102 H 100 H 94 H Blood Pressure 141/76 H 136/69 137/62 Pulse Oximetry 94 95 93 01/30/20 08:30 01/30/20 09:00 Pulse Rate 98 H 98 H Blood Pressure 130/58 L 120/61 Pulse Oximetry 93 94 <DO Lilibeth Saleh Last Filed: 01/30/20 14:09> Orders Ordered: Discontinued Medications Sodium Chloride (Normal Saline 0.9%) 1,000 mls @ 125 mls/hr IV CONT KRISTIN Last Admin: 01/30/20 06:24 Dose: 125 mls/hr Documented by: PARKER Ketorolac Tromethamine (Toradol) 15 mg IV NOW ONE Stop: 01/30/20 05:44 Last Admin: 01/30/20 06:24 Dose: 15 mg Documented by: LESSMAN Vital Signs Vital signs: Vital Signs - 8 hr 01/30/20 06:26 01/30/20 06:30 01/30/20 07:00 Pulse Rate 98 H 104 H 98 H Blood Pressure Pulse Oximetry 96 95 95 01/30/20 07:02 01/30/20 07:30 01/30/20 08:00 Pulse Rate 102 H 100 H 94 H Blood Pressure 141/76 H 136/69 137/62 Pulse Oximetry 94 95 93 01/30/20 08:30 01/30/20 09:00 Pulse Rate 98 H 98 H Blood Pressure 130/58 L 120/61 Pulse Oximetry 93 94 MDM - Chest Pain <Dank Eckert, - Last Filed: 01/30/20 20:25> Lab Data Result diagrams: 01/30/20 06:20 01/30/20 06:20 Labs: Lab Results 01/30/20 01/30/20 01/30/20 Range/Units 06:00 06:20 06:20 WBC 12.0 H (4.5-11.0) X10^3/uL RBC 4.65 (4.0-5.2) X10^6/uL Hgb 11.7 L (12.0-16.0) g/dL Hct 37.6 (36-46) % MCV 80.8 (80-100) fL MCH 25.3 L (26-34) PG MCHC 31.3 (30-36) % RDW 25.8 H (11.6-14.8) % Plt Count 224 (150-400) X10^3/uL Neut % (Auto) 86.7 H (50-75) % Lymph % (Auto) 6.8 L (25-40) % Band[place] % (Auto) 5.7 (3-14) % Eos % (Auto) 0.5 L (2-4) % Baso % (Auto) 0.3 (0-2) % Neut # (Auto) 79959 H (3176-1951) /uL Lymph # (Auto) 800 L (9230-4614) /uL [place] # (Auto) 700 (0-900) /uL Eos # (Auto) 100 (0-450) /uL Baso # (Auto) 0 (0-100) /uL RBC Morphology See below Hypochromasia 1+ H Anisocytosis 3+ H PT (10.1-12.7) SECONDS INR (0.9-1.3) APTT (26.4-36.2) SECONDS Sodium (137-145) mmol/L Potassium (3.4-5.1) mmol/L Chloride (98-107) mmol/L Carbon Dioxide (22-32) mmol/L BUN (7-17) mg/dL Creatinine (0.52-1.04) mg/dL Estimated GFR (>60) mL/min BUN/Creatinine Ratio (6-22) Glucose (70-100) mg/dL Lactate (0.7-2.1) mmol/L Calcium (8.4-10.2) mg/dL Ferritin 95 (6-137) ng/mL Total Bilirubin (0.2-1.3) mg/dL AST (14-36) IU/L ALT (<35) IU/L Alkaline Phosphatase (38-126) U/L Total Creatine Kinase (30-135) U/L CK-MB (CK-2) (<2.37) ng/mL CK-MB (CK-2) Rel Index (1.5-5.0) % Troponin I (0.01-0.034) ng/mL C-Reactive Protein (<1.0) mg/dL NT-Pro-B Natriuret Pep (<125) pg/mL Total Protein (6.3-8.2) g/dL Albumin (3.5-5.0) g/dL Globulin (1.7-4.1) g/dL Albumin/Globulin Ratio (1.0-2.8) Lipase (23-300) U/L Procalcitonin (<0.5) ng/mL Serum , Qual (Negative) COVID-19 PCR Negative (Negative) 01/30/20 01/30/20 01/30/20 Range/Units 06:20 06:20 06:20 WBC (4.5-11.0) X10^3/uL RBC (4.0-5.2) X10^6/uL Hgb (12.0-16.0) g/dL Hct (36-46) % MCV (80-100) fL MCH (26-34) PG MCHC (30-36) % RDW (11.6-14.8) % Plt Count (150-400) X10^3/uL Neut % (Auto) (50-75) % Lymph % (Auto) (25-40) % Band[place] % (Auto) (3-14) % Eos % (Auto) (2-4) % Baso % (Auto) (0-2) % Neut # (Auto) (8201-6789) /uL Lymph # (Auto) (9246-2815) /uL Band[place] # (Auto) (0-900) /uL Eos # (Auto) (0-450) /uL Baso # (Auto) (0-100) /uL RBC Morphology Hypochromasia Anisocytosis PT 15.3 H (10.1-12.7) SECONDS INR 1.3 (0.9-1.3) APTT 35 D (26.4-36.2) SECONDS Sodium 139 (137-145) mmol/L Potassium 3.9 (3.4-5.1) mmol/L Chloride 100 (98-107) mmol/L Carbon Dioxide 33 H (22-32) mmol/L BUN 8 (7-17) mg/dL Creatinine 0.64 (0.52-1.04) mg/dL Estimated GFR > 60.0 (>60) mL/min BUN/Creatinine Ratio 12.5 (6-22) Glucose 131 H (70-100) mg/dL Lactate (0.7-2.1) mmol/L Calcium 9.3 (8.4-10.2) mg/dL Ferritin (6-137) ng/mL Total Bilirubin 0.4 (0.2-1.3) mg/dL AST 25 (14-36) IU/L ALT 15 (<35) IU/L Alkaline Phosphatase 82 (38-126) U/L Total Creatine Kinase 159 H (30-135) U/L CK-MB (CK-2) 3.40 H (<2.37) ng/mL CK-MB (CK-2) Rel Index 2.1 (1.5-5.0) % Troponin I < 0.012 (0.01-0.034) ng/mL C-Reactive Protein 0.9 (<1.0) mg/dL NT-Pro-B Natriuret Pep 61 (<125) pg/mL Total Protein 8.2 (6.3-8.2) g/dL Albumin 4.5 (3.5-5.0) g/dL Globulin 3.7 (1.7-4.1) g/dL Albumin/Globulin Ratio 1.2 (1.0-2.8) Lipase 51 (23-300) U/L Procalcitonin (<0.5) ng/mL Serum , Qual (Negative) COVID-19 PCR (Negative) 01/30/20 01/30/20 01/30/20 Range/Units 06:20 06:20 06:20 WBC (4.5-11.0) X10^3/uL RBC (4.0-5.2) X10^6/uL Hgb (12.0-16.0) g/dL Hct (36-46) % MCV (80-100) fL MCH (26-34) PG MCHC (30-36) % RDW (11.6-14.8) % Plt Count (150-400) X10^3/uL Neut % (Auto) (50-75) % Lymph % (Auto) (25-40) % Band[place] % (Auto) (3-14) % Eos % (Auto) (2-4) % Baso % (Auto) (0-2) % Neut # (Auto) (2998-4423) /uL Lymph # (Auto) (2237-7313) /uL Band[place] # (Auto) (0-900) /uL Eos # (Auto) (0-450) /uL Baso # (Auto) (0-100) /uL RBC Morphology Hypochromasia Anisocytosis PT (10.1-12.7) SECONDS INR (0.9-1.3) APTT (26.4-36.2) SECONDS Sodium (137-145) mmol/L Potassium (3.4-5.1) mmol/L Chloride (98-107) mmol/L Carbon Dioxide (22-32) mmol/L BUN (7-17) mg/dL Creatinine (0.52-1.04) mg/dL Estimated GFR (>60) mL/min BUN/Creatinine Ratio (6-22) Glucose (70-100) mg/dL Lactate 1.1 (0.7-2.1) mmol/L Calcium (8.4-10.2) mg/dL Ferritin (6-137) ng/mL Total Bilirubin (0.2-1.3) mg/dL AST (14-36) IU/L ALT (<35) IU/L Alkaline Phosphatase (38-126) U/L Total Creatine Kinase (30-135) U/L CK-MB (CK-2) (<2.37) ng/mL CK-MB (CK-2) Rel Index (1.5-5.0) % Troponin I (0.01-0.034) ng/mL C-Reactive Protein (<1.0) mg/dL NT-Pro-B Natriuret Pep (<125) pg/mL Total Protein (6.3-8.2) g/dL Albumin (3.5-5.0) g/dL Globulin (1.7-4.1) g/dL Albumin/Globulin Ratio (1.0-2.8) Lipase (23-300) U/L Procalcitonin < 0.05 (<0.5) ng/mL Serum , Qual Negative (Negative) COVID-19 PCR (Negative) 01/30/20 Range/Units 08:25 WBC (4.5-11.0) X10^3/uL RBC (4.0-5.2) X10^6/uL Hgb (12.0-16.0) g/dL Hct (36-46) % MCV (80-100) fL MCH (26-34) PG MCHC (30-36) % RDW (11.6-14.8) % Plt Count (150-400) X10^3/uL Neut % (Auto) (50-75) % Lymph % (Auto) (25-40) % Band[place] % (Auto) (3-14) % Eos % (Auto) (2-4) % Baso % (Auto) (0-2) % Neut # (Auto) (4680-4108) /uL Lymph # (Auto) (4554-3377) /uL Band[place] # (Auto) (0-900) /uL Eos # (Auto) (0-450) /uL Baso # (Auto) (0-100) /uL RBC Morphology Hypochromasia Anisocytosis PT (10.1-12.7) SECONDS INR (0.9-1.3) APTT (26.4-36.2) SECONDS Sodium (137-145) mmol/L Potassium (3.4-5.1) mmol/L Chloride (98-107) mmol/L Carbon Dioxide (22-32) mmol/L BUN (7-17) mg/dL Creatinine (0.52-1.04) mg/dL Estimated GFR (>60) mL/min BUN/Creatinine Ratio (6-22) Glucose (70-100) mg/dL Lactate (0.7-2.1) mmol/L Calcium (8.4-10.2) mg/dL Ferritin (6-137) ng/mL Total Bilirubin (0.2-1.3) mg/dL AST (14-36) IU/L ALT (<35) IU/L Alkaline Phosphatase (38-126) U/L Total Creatine Kinase (30-135) U/L CK-MB (CK-2) (<2.37) ng/mL CK-MB (CK-2) Rel Index (1.5-5.0) % Troponin I < 0.012 (0.01-0.034) ng/mL C-Reactive Protein (<1.0) mg/dL NT-Pro-B Natriuret Pep (<125) pg/mL Total Protein (6.3-8.2) g/dL Albumin (3.5-5.0) g/dL Globulin (1.7-4.1) g/dL Albumin/Globulin Ratio (1.0-2.8) Lipase (23-300) U/L Procalcitonin (<0.5) ng/mL Serum , Qual (Negative) COVID-19 PCR (Negative) <Kristen Martinez DO - Last Filed: 01/30/20 14:09> Lab Data Attestation: I reviewed the patient's lab results. Labs: Lab Results 01/30/20 01/30/20 01/30/20 Range/Units 06:00 06:20 06:20 WBC 12.0 H (4.5-11.0) X10^3/uL RBC 4.65 (4.0-5.2) X10^6/uL Hgb 11.7 L (12.0-16.0) g/dL Hct 37.6 (36-46) % MCV 80.8 (80-100) fL MCH 25.3 L (26-34) PG MCHC 31.3 (30-36) % RDW 25.8 H (11.6-14.8) % Plt Count 224 (150-400) X10^3/uL Neut % (Auto) 86.7 H (50-75) % Lymph % (Auto) 6.8 L (25-40) % Band[place] % (Auto) 5.7 (3-14) % Eos % (Auto) 0.5 L (2-4) % Baso % (Auto) 0.3 (0-2) % Neut # (Auto) 35470 H (1327-2671) /uL Lymph # (Auto) 800 L (8408-9249) /uL Band[place] # (Auto) 700 (0-900) /uL Eos # (Auto) 100 (0-450) /uL Baso # (Auto) 0 (0-100) /uL RBC Morphology See below Hypochromasia 1+ H Anisocytosis 3+ H PT (10.1-12.7) SECONDS INR (0.9-1.3) APTT (26.4-36.2) SECONDS Sodium (137-145) mmol/L Potassium (3.4-5.1) mmol/L Chloride (98-107) mmol/L Carbon Dioxide (22-32) mmol/L BUN (7-17) mg/dL Creatinine (0.52-1.04) mg/dL Estimated GFR (>60) mL/min BUN/Creatinine Ratio (6-22) Glucose (70-100) mg/dL Lactate (0.7-2.1) mmol/L Calcium (8.4-10.2) mg/dL Ferritin 95 (6-137) ng/mL Total Bilirubin (0.2-1.3) mg/dL AST (14-36) IU/L ALT (<35) IU/L Alkaline Phosphatase (38-126) U/L Total Creatine Kinase (30-135) U/L CK-MB (CK-2) (<2.37) ng/mL CK-MB (CK-2) Rel Index (1.5-5.0) % Troponin I (0.01-0.034) ng/mL C-Reactive Protein (<1.0) mg/dL NT-Pro-B Natriuret Pep (<125) pg/mL Total Protein (6.3-8.2) g/dL Albumin (3.5-5.0) g/dL Globulin (1.7-4.1) g/dL Albumin/Globulin Ratio (1.0-2.8) Lipase (23-300) U/L Procalcitonin (<0.5) ng/mL Serum , Qual (Negative) COVID-19 PCR Negative (Negative) 01/30/20 01/30/20 01/30/20 Range/Units 06:20 06:20 06:20 WBC (4.5-11.0) X10^3/uL RBC (4.0-5.2) X10^6/uL Hgb (12.0-16.0) g/dL Hct (36-46) % MCV (80-100) fL MCH (26-34) PG MCHC (30-36) % RDW (11.6-14.8) % Plt Count (150-400) X10^3/uL Neut % (Auto) (50-75) % Lymph % (Auto) (25-40) % Band[place] % (Auto) (3-14) % Eos % (Auto) (2-4) % Baso % (Auto) (0-2) % Neut # (Auto) (5865-6451) /uL Lymph # (Auto) (7751-2306) /uL [place] # (Auto) (0-900) /uL Eos # (Auto) (0-450) /uL Baso # (Auto) (0-100) /uL RBC Morphology Hypochromasia Anisocytosis PT 15.3 H (10.1-12.7) SECONDS INR 1.3 (0.9-1.3) APTT 35 D (26.4-36.2) SECONDS Sodium 139 (137-145) mmol/L Potassium 3.9 (3.4-5.1) mmol/L Chloride 100 (98-107) mmol/L Carbon Dioxide 33 H (22-32) mmol/L BUN 8 (7-17) mg/dL Creatinine 0.64 (0.52-1.04) mg/dL Estimated GFR > 60.0 (>60) mL/min BUN/Creatinine Ratio 12.5 (6-22) Glucose 131 H (70-100) mg/dL Lactate (0.7-2.1) mmol/L Calcium 9.3 (8.4-10.2) mg/dL Ferritin (6-137) ng/mL Total Bilirubin 0.4 (0.2-1.3) mg/dL AST 25 (14-36) IU/L ALT 15 (<35) IU/L Alkaline Phosphatase 82 (38-126) U/L Total Creatine Kinase 159 H (30-135) U/L CK-MB (CK-2) 3.40 H (<2.37) ng/mL CK-MB (CK-2) Rel Index 2.1 (1.5-5.0) % Troponin I < 0.012 (0.01-0.034) ng/mL C-Reactive Protein 0.9 (<1.0) mg/dL NT-Pro-B Natriuret Pep 61 (<125) pg/mL Total Protein 8.2 (6.3-8.2) g/dL Albumin 4.5 (3.5-5.0) g/dL Globulin 3.7 (1.7-4.1) g/dL Albumin/Globulin Ratio 1.2 (1.0-2.8) Lipase 51 (23-300) U/L Procalcitonin (<0.5) ng/mL Serum , Qual (Negative) COVID-19 PCR (Negative) 01/30/20 01/30/20 01/30/20 Range/Units 06:20 06:20 06:20 WBC (4.5-11.0) X10^3/uL RBC (4.0-5.2) X10^6/uL Hgb (12.0-16.0) g/dL Hct (36-46) % MCV (80-100) fL MCH (26-34) PG MCHC (30-36) % RDW (11.6-14.8) % Plt Count (150-400) X10^3/uL Neut % (Auto) (50-75) % Lymph % (Auto) (25-40) % [place] % (Auto) (3-14) % Eos % (Auto) (2-4) % Baso % (Auto) (0-2) % Neut # (Auto) (1229-0337) /uL Lymph # (Auto) (6161-6229) /uL [place] # (Auto) (0-900) /uL Eos # (Auto) (0-450) /uL Baso # (Auto) (0-100) /uL RBC Morphology Hypochromasia Anisocytosis PT (10.1-12.7) SECONDS INR (0.9-1.3) APTT (26.4-36.2) SECONDS Sodium (137-145) mmol/L Potassium (3.4-5.1) mmol/L Chloride (98-107) mmol/L Carbon Dioxide (22-32) mmol/L BUN (7-17) mg/dL Creatinine (0.52-1.04) mg/dL Estimated GFR (>60) mL/min BUN/Creatinine Ratio (6-22) Glucose (70-100) mg/dL Lactate 1.1 (0.7-2.1) mmol/L Calcium (8.4-10.2) mg/dL Ferritin (6-137) ng/mL Total Bilirubin (0.2-1.3) mg/dL AST (14-36) IU/L ALT (<35) IU/L Alkaline Phosphatase (38-126) U/L Total Creatine Kinase (30-135) U/L CK-MB (CK-2) (<2.37) ng/mL CK-MB (CK-2) Rel Index (1.5-5.0) % Troponin I (0.01-0.034) ng/mL C-Reactive Protein (<1.0) mg/dL NT-Pro-B Natriuret Pep (<125) pg/mL Total Protein (6.3-8.2) g/dL Albumin (3.5-5.0) g/dL Globulin (1.7-4.1) g/dL Albumin/Globulin Ratio (1.0-2.8) Lipase (23-300) U/L Procalcitonin < 0.05 (<0.5) ng/mL Serum , Qual Negative (Negative) COVID-19 PCR (Negative) 01/30/20 Range/Units 08:25 WBC (4.5-11.0) X10^3/uL RBC (4.0-5.2) X10^6/uL Hgb (12.0-16.0) g/dL Hct (36-46) % MCV (80-100) fL MCH (26-34) PG MCHC (30-36) % RDW (11.6-14.8) % Plt Count (150-400) X10^3/uL Neut % (Auto) (50-75) % Lymph % (Auto) (25-40) % [place] % (Auto) (3-14) % Eos % (Auto) (2-4) % Baso % (Auto) (0-2) % Neut # (Auto) (4601-7936) /uL Lymph # (Auto) (7602-4573) /uL [place] # (Auto) (0-900) /uL Eos # (Auto) (0-450) /uL Baso # (Auto) (0-100) /uL RBC Morphology Hypochromasia Anisocytosis PT (10.1-12.7) SECONDS INR (0.9-1.3) APTT (26.4-36.2) SECONDS Sodium (137-145) mmol/L Potassium (3.4-5.1) mmol/L Chloride (98-107) mmol/L Carbon Dioxide (22-32) mmol/L BUN (7-17) mg/dL Creatinine (0.52-1.04) mg/dL Estimated GFR (>60) mL/min BUN/Creatinine Ratio (6-22) Glucose (70-100) mg/dL Lactate (0.7-2.1) mmol/L Calcium (8.4-10.2) mg/dL Ferritin (6-137) ng/mL Total Bilirubin (0.2-1.3) mg/dL AST (14-36) IU/L ALT (<35) IU/L Alkaline Phosphatase (38-126) U/L Total Creatine Kinase (30-135) U/L CK-MB (CK-2) (<2.37) ng/mL CK-MB (CK-2) Rel Index (1.5-5.0) % Troponin I < 0.012 (0.01-0.034) ng/mL C-Reactive Protein (<1.0) mg/dL NT-Pro-B Natriuret Pep (<125) pg/mL Total Protein (6.3-8.2) g/dL Albumin (3.5-5.0) g/dL Globulin (1.7-4.1) g/dL Albumin/Globulin Ratio (1.0-2.8) Lipase (23-300) U/L Procalcitonin (<0.5) ng/mL Serum , Qual (Negative) COVID-19 PCR (Negative) Imaging Data CT scan - chest: 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 Pneumonitis and areas air trapping with ground-glass opacity. Differential considerations include atypical pneumonia chronic bronchitis PROCEDURE: CT ANGIO CHEST PE PROTOCOL INDICATIONS: CP, SOB, hypoxia TECHNIQUE: After the administration of intravenous contrast, 2 mm thick sections acquired from the pulmonary apices to the posterior costophrenic angles. 3-dimensional maximum intensity projection (MIP) coronal and sagittal reformats were then acquired through the thorax. For radiation dose reduction, the following was used: automated exposure control, adjustment of mA and/or kV according to patient size. Body habitus COMPARISON: [facility], CT, CT ANGIO CHEST PE PROTOCOL, 07/11/2019, 15:32. [facility], CT, CT ANGIO CHEST PE PROTOCOL, 02/11/2019, 16:00. FINDINGS: Image quality: Somewhat diminished by. Pulmonary arteries: Pulmonary arteries are normal in size, and demonstrate no intraluminal filling defects to suggest central pulmonary embolism. Lungs and pleura: Lungs are unchanged with a mild pulmonary edema pattern as has been previously the case. No pleural effusions or pneumothorax. Central and peripheral airways are patent. Mediastinum: Heart size is normal, without pericardial effusion. No mediastinal or hilar adenopathy. Thoracic aorta is normal in caliber and enhancement. Esophagus is normal in caliber, without hiatal hernia. Bones and chest wall: No suspicious bony lesions. Ribs and thoracic spine appear intact throughout. Thyroid gland is not well seen . No axillary or supraclavicular adenopathy. Abdomen: Visualized upper abdominal solid organs appear normal in the early arterial phase of enhancement. IMPRESSION: Mild pulmonary edema pattern, as has been previously the case. No pulmonary embolus found. Dictated by: Beto Apple M.D. on 01/30/2020 at 7:46 MDM Narrative Medical decision making narrative: Patient is signed out to me by Dr. Eckert. I have seen evaluated patient myself. CT has returned no pulmonary emboli but possible pneumonitis atypical pneumonia COVID-19 is negative. Patient does have chest pain and cough with subjective fevers. The possible still coated based on CT findings alone. Other blood work is not consistent with COVID-19. At this time I do not think antibiotics are warranted. Repeat troponin is negative. Possible negative cover testing as secondary to short incubation time, recommend retesting in a few days and self quarantining. Discharge Plan Departure Patient Disposition: Home Clinical Impression: Acute viral syndrome Discharge Date/Time: 01/30/20 10:01 Instructions: Coronavirus Disease 2019, Can COVID-19 be prevented? Activity Restrictions/Additional Instructions: *You have been diagnosed with viral syndrome *What to do: At this time it is still possible that you have COVID-19. The re sults of your CT scan are suspicious for this however all of your other blood work is overall reassuring. Her COVID-19 test is negative however it may be too early to detect and I strongly recommend that you are retested in 3-5 days. Until then it is recommended that you self quarantine. No antibiotics are indicated at this time. *Continue to take medications as directed *Follow up with your primary care provider in 2-3 days *Return to ER if you should have increasing chest pain, worsening shortness of breath or any new, worsening or concerning symptoms CDC Guidelines for home isolation: - Stay away from others - Limit contact with pets and animals: If you must care for a pet, wash your hands before and after interacting with them - Wear a mask if you are sick - Cover your mouth and nose with a tissue when you cough or sneeze. Dispose of tissues in a lined trash can and wash your hands immediately with soap and water for at least 20 seconds. If soap and water are not available, clean hands with alcohol-based hand lead advisor that contains at least 60% alcohol. - Clean your hands often with soap and water for at least 20 seconds - Avoid touching your eyes, nose and mouth with unwashed hands - Do not share dishes, drinking glasses, cups, eating utensils, towels, or bedding with other people in your home. After using these items, wash them thoroughly with soap and water or put in the community ambassador. - Clean high-touch surfaces in your isolation area (?sick room? and bathroom) every day; let a caregiver clean and disinfect high-touch surfaces in other areas of the home. Clean the area or item with soap and water or another detergent if it is dirty. Then, use a household disinfectant. Seek medical attention, but call first: - Seek medical care right away if your illness is worsening (for example, if you have difficulty breathing). - Call your doctor before going in: Before going to the doctor?s office or emergency room, call ahead and tell them your symptoms. They will tell you what to do. - If possible, put on a facemask before you enter the building. If you can?t put on a facemask, try to keep a safe distance from other people (at least 6 feet away). This will help protect the people in the office or waiting room. - Follow care instructions from your healthcare provider and local health department: Your local health authorities will give instructions on checking your symptoms and reporting information. Emergency warning signs for COVID-19: - Difficulty breathing or shortness of breath - Persistent pain or pressure in the chest - New confusion or inability to arouse - Bluish lips or face Prescriptions: No Action (DME) Diatrue Plus Test Strip strip See Dose Instructions .ROUTE .MEDSUPPLY Qty: 50 RF: 12 (DME) blood-glucose meter [Diatrue Plus Blood Glucose Met] misc See Dose Instructions .ROUTE .MEDSUPPLY Qty: 1 RF: 0 (DME) lancets [Easy Touch Twist Lancets] 33 gauge misc See Dose Instructions .ROUTE .MEDSUPPLY Qty: 100 RF: 3 (DME) TENS units device See Rx Instructions .ROUTE .MEDSUPPLY Qty: 1 RF: 0 ferrous fumarate 325 mg (106 mg iron) tablet 325 mg PO BID RF: 0 terazosin 2 mg capsule 2 mg PO DAILY RF: 0 varenicline 0.5 mg (11)- 1 mg (42) tablets,dose pack See Rx Instructions PO PER PKG DIR Qty: 53 RF: 0 Mirena 20 mcg/24 hours (5 yrs) 52 mg intrauterine device 1 device intrauterine ONCE Qty: 1 RF: 0 potassium chloride 20 mEq tablet extended release 20 meq PO DAILY RF: 0 pregabalin 150 mg capsule 150 mg PO BID Qty: 60 RF: 3 (DME) Compressioin Stockings Qty: 1 RF: 0 omeprazole 20 mg capsule,delayed release(DR/EC) 20 mg PO BID Qty: 180 RF: 1 levothyroxine 50 mcg tablet 50 mcg PO BEDTIME Qty: 60 RF: 0 acetaminophen [Tylenol Extra Strength] 500 mg tablet 2,000 mg PO BID RF: 0 fluticasone propion-salmeterol [Advair Diskus] 100-50 mcg/dose blister with device 1 puff INHALATION BID RF: 0 albuterol sulfate 90 mcg/actuation HFA aerosol inhaler 2 puff INHALATION Q4-6H PRN (Reason: shortness of breath or wheezing) Qty: 8.5 RF: 0 furosemide 20 mg Tablet 60 mg PO QPM RF: 0 furosemide 20 mg Tablet 100 mg PO QAM RF: 0 warfarin [Coumadin] 5 mg Tablet 5 mg PO Q OTHER DAY RF: 0 warfarin [Coumadin] 10 mg Tablet 10 mg PO Q OTHER DAY RF: 0 aripiprazole [Abilify] 5 mg tablet 5 mg PO BID RF: 0 duloxetine 60 mg capsule,delayed release(DR/EC) 90 mg PO DAILY RF: 0 cyclobenzaprine 10 mg tablet 10 mg PO BID RF: 0 metoprolol tartrate 25 mg tablet 12.5 mg PO BID RF: 0 Zubsolv 5.7-1.4 mg Tablet, Sublingual 1 tab SUBLINGUAL BID RF: 0 magnesium 250 mg Tablet 500 mg PO DAILY RF: 0 Referrals: Alejandra Lynch MD [Primary Care Provider] -
--- NOTE | 2020-01-30 05:46 | DI.CT.S_ITS ---
PROCEDURE: CT ANGIO CHEST PE PROTOCOL INDICATIONS: CP, SOB, hypoxia TECHNIQUE: After the administration of intravenous contrast, 2 mm thick sections acquired from the pulmonary apices to the posterior costophrenic angles. 3-dimensional maximum intensity projection (MIP) coronal and sagittal reformats were then acquired through the thorax. For radiation dose reduction, the following was used: automated exposure control, adjustment of mA and/or kV according to patient size. Body habitus COMPARISON: [facility], CT, CT ANGIO CHEST PE PROTOCOL, 07/11/2019, 15:32. [facility], CT, CT ANGIO CHEST PE PROTOCOL, 02/11/2019, 16:00. FINDINGS: Image quality: Somewhat diminished by. Pulmonary arteries: Pulmonary arteries are normal in size, and demonstrate no intraluminal filling defects to suggest central pulmonary embolism. Lungs and pleura: Lungs are unchanged with a mild pulmonary edema pattern as has been previously the case. No pleural effusions or pneumothorax. Central and peripheral airways are patent. Mediastinum: Heart size is normal, without pericardial effusion. No mediastinal or hilar adenopathy. Thoracic aorta is normal in caliber and enhancement. Esophagus is normal in caliber, without hiatal hernia. Bones and chest wall: No suspicious bony lesions. Ribs and thoracic spine appear intact throughout. Thyroid gland is not well seen . No axillary or supraclavicular adenopathy. Abdomen: Visualized upper abdominal solid organs appear normal in the early arterial phase of enhancement. IMPRESSION: Mild pulmonary edema pattern, as has been previously the case. No pulmonary embolus found. Dictated by: Beto Apple M.D. on 01/30/2020 at 7:46 Approved by: Beto Apple M.D. on 01/30/2020 at 7:48
[2020-01-30 06:23] LABS: COVID19 -Nasal RAPID Negative (Negative)
[2020-01-30] MEDS: KETOROLAC 60 MG/2 ML VIAL 15 MG IV (06:24)
[2020-01-30] MEDS: SODIUM CHLORIDE 0.9% 1,000 ML 125 ML IV (06:24)
[2020-01-30 06:35] LABS: Add Manual Diff / Slide Review NO; Basophils Absolute Auto 0 /uL (0-100); Basophils Percent Auto 0.3 % (0-2); Eosinophils Absolute Auto 100 /uL (0-450); Eosinophils Percent Auto 0.5 % (2-4); Hematocrit 37.6 % (36-46); Hemoglobin 11.7 g/dL (12.0-16.0); Lymphocytes Absolute Auto 800 /uL (1100-4500); Lymphocytes Percent Auto 6.8 % (25-40); Mean Corpuscular HGB Conc 31.3 % (30-36); Mean Corpuscular Hemoglobin 25.3 PG (26-34); Mean Corpuscular Volume 80.8 fL (80-100); Monocytes Absolute Auto 700 /uL (0-900); Monocytes Percent Auto 5.7 % (3-14); Neutrophils Absolute Auto 10400 /uL (1500-7000); Neutrophils Percent Auto 86.7 % (50-75); Platelet Count 224 X10^3/uL (150-400); Red Blood Cell Count 4.65 X10^6/uL (4.0-5.2); Red Cell Distribution Width 25.8 % (11.6-14.8)
[2020-01-30 06:37] LABS: INR 1.3 (0.9-1.3); Prothrombin Time 15.3 SECONDS (10.1-12.7)
[2020-01-30 06:40] LABS: PTT Partial Thromboplastin Tim 35 SECONDS (26.4-36.2)
[2020-01-30 06:42] LABS: Lactate (Lactic Acid) 1.1 mmol/L (0.7-2.1)
[2020-01-30 06:44] LABS: Alanine Aminotransferase 15 IU/L (<35); Albumin 4.5 g/dL (3.5-5.0); Albumin Globulin Ratio 1.2 (1.0-2.8); Alkaline Phosphatase 82 U/L (38-126); Aspartate Aminotransferase 25 IU/L (14-36); BUN Creatinine Ratio 12.5 (6-22); Bilirubin Total 0.4 mg/dL (0.2-1.3); Blood Urea Nitrogen 8 mg/dL (7-17); C-Reactive Protein Quant 0.9 mg/dL (<1.0); Calcium 9.3 mg/dL (8.4-10.2); Carbon Dioxide 33 mmol/L (22-32); Chloride 100 mmol/L (98-107); Estimated Glomerular Filt Rate > 60.0 mL/min (>60); Globulin 3.7 g/dL (1.7-4.1); Glucose 131 mg/dL (70-100); HEMOLYSIS < 15 (0-50); Potassium 3.9 mmol/L (3.4-5.1); Sodium 139 mmol/L (137-145); Total Protein 8.2 g/dL (6.3-8.2)
[2020-01-30 06:46] LABS: Creatine Kinase 159 U/L (30-135); Lipase 51 U/L (23-300); Pregnancy Test Serum,Qual Negative (Negative)
[2020-01-30 06:59] LABS: NT-proBNP (BNP-Adult 18+) 61 pg/mL (<125); Troponin I < 0.012 ng/mL (0.01-0.034)
[2020-01-30 07:01] LABS: CKMB % Relative Index 2.1 % (1.5-5.0)
[2020-01-30 07:03] LABS: Anisocytosis 3+; Hypochromasia 1+
[2020-01-30 07:13] LABS: Procalcitonin < 0.05 ng/mL (<0.5)
[2020-01-30 07:23] LABS: Ferritin 95 ng/mL (6-137)
[2020-01-30 09:02] LABS: Troponin I < 0.012 ng/mL (0.01-0.034)
== END 2020-01-30 10:01 | disposition home or self-care (01) ==
PROVIDERS: Emergency Medicine; Emergency Provider Emergency Medicine; PCP Family Medicine
DX: B34.9 Viral infection, unspecified (principal); R06.00 Dyspnea, unspecified; R07.9 Chest pain, unspecified; R05 Cough; R50.9 Fever, unspecified
CPT/HCPCS: 36415; 71275; 80053; 82550; 82553; 82728; 83605; 83690; 83880; 84145; 84484; 84703; 85025; 85610; 85730; 86140; 87040; 87635; 93005; 96374; 99284; J1885; Q9967

== ENCOUNTER 2020-01-31 14:50 | Emergency (ER) | payer OTHER, SELFPAY ==
[2019-12-29 20:08] VITALS: BMI 48.2
[2020-01-31] VITALS (8 sets, daily range): BP systolic 143–175; BP diastolic 83–103; PULSE 77–101; RESP 14–17; TEMP 36.3; O2SAT 92–99
--- NOTE | 2020-01-31 15:19 | ED_ITS ---
HPI - Neuro Symptoms/Deficit General Chief Complaint: Neuro Symptoms/Deficit Stated Complaint: confused/fatigue/tremors Time Seen by Provider: 01/31/20 15:19 Source: patient Mode of arrival: Ambulatory Limitations: no limitations History of Present Illness HPI Narrative: 39-year-old woman with extensive medical history of tobacco abuse, obesity, prior pulmonary emboli, hypertension, chronic pain with opioid dependence, alcohol abuse, diabetes, depression, sleep apnea, reflux, fibromyalgia, hypothyroidism and polypharmacy presents today complaining of sore throat, general malaise, mild cough and chest tightness worse with deep breathing and a sense that she is drunk despite drinking no alcohol. She describes no specific wheezing, palpitations or abdominal pain. She does note a slight headache. She was seen yesterday for the same. Yesterday she had a slight leukocytosis at 12 with a slight left shift, normal troponin, normal procalcitonin. Imaging included CT of her chest which was suggestive of mild pulmonary edema pattern an absence of pulmonary emboli. Covid test was negative. She describes no specific fevers, cough is unchanged and nonproductive, she states she is eating and drinking despite dry mucous membranes and she is taking all prescribed medications. On Anticoagulants: No Related Data Home Medications Medication Instructions Recorded Confirmed acetaminophen 500 mg tablet 2,000 mg PO BID tab 09/23/18 01/18/20 magnesium 500 mg PO DAILY 06/29/19 01/18/20 potassium chloride 20 mEq 20 meq PO DAILY 07/07/19 01/18/20 tablet,extended release fluticasone propion-salmeterol 1 puff INHALATION BID 07/11/19 01/18/20 [Advair Diskus] furosemide 60 mg PO QPM 12/02/19 01/18/20 furosemide 100 mg PO QAM 12/02/19 01/18/20 warfarin [Coumadin] 5 mg PO Q OTHER DAY 12/02/19 01/18/20 warfarin [Coumadin] 10 mg PO Q OTHER DAY 12/02/19 01/18/20 Zubsolv 1 tab SUBLINGUAL BID 12/29/19 01/18/20 aripiprazole [Abilify] 5 mg PO BID 12/29/19 01/18/20 cyclobenzaprine 10 mg PO BID 12/29/19 01/18/20 duloxetine 90 mg PO DAILY 12/29/19 01/18/20 metoprolol tartrate 12.5 mg PO BID 12/29/19 01/18/20 ferrous fumarate 325 mg (106 mg 325 mg PO BID 01/04/20 01/18/20 iron) tablet terazosin 2 mg capsule 2 mg PO DAILY 01/04/20 01/18/20 Previous Rx's Medication Instructions Recorded blood sugar diagnostic #50 each 12/08/18 blood-glucose meter #1 each 12/08/18 lancets 33 gauge #100 each 12/08/18 TENS units #1 each 02/09/19 albuterol sulfate 2 puff INHALATION Q4-6H PRN #8.5 07/11/19 gram pregabalin 150 mg capsule 150 mg PO BID #60 cap 09/20/19 Compressioin Stockings #1 ea 10/13/19 omeprazole 20 mg capsule,delayed 20 mg PO BID #180 cap 01/02/20 release varenicline 0.5 mg (11)-1 mg (42) See Rx Instructions PO PER PKG DIR 01/04/20 tablets in a dose pack #53 each levothyroxine 50 mcg tablet 50 mcg PO BEDTIME #60 tab 01/10/20 levonorgestrel 20 mcg/24 hours (5 1 device INTRAUTERINE ONCE #1 each 01/18/20 yrs) 52 mg intrauterine device Allergies Allergy/AdvReac Type Severity Reaction Status Date / Time carisoprodol [CARISOPRODOL] AdvReac Severe urinary Verified 01/18/20 15:30 retention fosphenytoin AdvReac Intermediate ITCHING Verified 01/18/20 15:30 Review of Systems Review of Systems Narrative: Pertinent positive and negative findings as per HPI Remainder of review of systems is otherwise unremarkable for GI: Nausea, vomiting, diarrhea, change in bowel habits, black or bloody stools : Dysuria, hematuria, flank pain MS: Muscle weakness, numbness, joint swelling or warmth Skin: Rashes, nonhealing lesions Neuro: Syncope, tingling Patient History Medical History Acetaminophen overdose of undetermined intent (Resolved 12/2015) Alcoholism (Acute) Asthma (Chronic) Cubital tunnel syndrome (Chronic) Depression (Chronic 02/08/14) DM type 2 (diabetes mellitus, type 2) (Acute) DVT (deep venous thrombosis) (Acute) Essential hypertension (Chronic) Fibromyalgia (Chronic 03/02/15) Intraoperative cardiac arrest during non-cardiac surgery (Resolved 11/2013) 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 (Chronic) Morbid obesity (Chronic) Narcotic habituation, continuous (Acute) Obstipation (Inactive) LYLA (obstructive sleep apnea) (Chronic) Ovarian cyst (Chronic) Plantar fasciitis (Chronic) Psychogenic nonepileptic seizure (Acute) Pulmonary embolism (Acute) Status post laminectomy (Inactive 12/14/15) Suicide attempt (Resolved) Tylenol overdose (Resolved) Urinary retention (Acute) Surgical History History of carpal tunnel repair (Resolved 10/30/14) S/P epidural steroid injection (Resolved 11/2013) Status post dilation and curettage (Resolved 2008) Status post laminectomy (Resolved 09/2016) Family History Grandfather Diabetes mellitus Family/Other Pancreatic cancer Social History household members: spouse Smoking Status: Current every day smoker alcohol intake: current eating out: rarely or never Type(s) of exercise: normal ROM and activity and sedentary lifestyle Smoking Status: Current every day smoker alcohol intake frequency: a few times a week Substance Use Type: does not use Exam Narrative Exam Narrative: General: Fatigued appearing with dry mucous membranes. Somewhat slowed but close to her typical baseline presentation to the emergency department HEENT: normal sclera with reactive pupils, dry posterior pharynx mildly erythematous but no exudate Neck: No JVD, supple, no cervical adenopathy Respiratory: Lungs are clear to auscultation, no wheezing no rales no rhonchi. Full and symmetrical air movement Cardiac: Regular rate and rhythm no murmurs no bruits Abdomen: Soft nontender good bowel tones, no flank pain Skin: Warm and dry, no rashes Neurologic: Grossly neurologically intact with no obvious asymmetries or abnormalities Extremities: No trauma, well perfused Initial Vital Signs Initial Vital Signs: Vital Signs Pulse Rate 99 H 01/31/20 15:11 Blood Pressure 173/103 H 01/31/20 15:11 Pulse Oximetry 95 01/31/20 15:11 Scores ABCD2 Citation: Lancet. 2006Jun 20;369(0862):988-67. Validation and refinement of scores to predict very early stroke risk after transient ischaemic attack. [place] SC1, Robert PM, José MN, Rai MF, Clinton JS, Mohamud AL, Tuan S. Course Orders Ordered: ED Orders 01/31/20 16:20 Complete Blood Count AUTO DIFF Stat Comprehensive Metabolic Panel Stat Lactate (Lactic Acid) Stat Troponin I Stat 01/31/20 16:41 Blood Culture Stat Discontinued Medications Acetaminophen (Tylenol) 325 mg PO NOW ONE Stop: 01/31/20 16:01 Last Admin: 01/31/20 16:30 Dose: 325 mg Documented by: ROXANE Sodium Chloride (Normal Saline 0.9%) 1,000 mls @ 1,000 mls/hr IV BOLUS ONE Stop: 01/31/20 16:59 Last Infusion: 01/31/20 18:10 Dose: 0 mls/hr Documented by: Admin: 01/31/20 16:29 Dose: 1,000 mls/hr Documented by: ROXANE Ibuprofen (Advil) 400 mg PO NOW ONE Stop: 01/31/20 16:01 Last Admin: 01/31/20 16:30 Dose: 400 mg Documented by: ROXANE Vital Signs Vital signs: Vital Signs - 8 hr 01/31/20 15:11 01/31/20 15:20 01/31/20 15:30 Temperature 97.3 F L Pulse Rate 99 H 101 H 92 H Respiratory Rate 16 Blood Pressure 173/103 H 173/103 H 165/96 H Pulse Oximetry 95 95 94 01/31/20 16:00 01/31/20 16:19 01/31/20 17:00 Temperature Pulse Rate 80 89 77 Respiratory Rate 17 Blood Pressure 175/83 H 143/83 H 146/90 H Pulse Oximetry 93 95 92 01/31/20 18:17 Temperature Pulse Rate 80 Respiratory Rate 14 Blood Pressure 154/97 H Pulse Oximetry 95 MDM - Neuro Symptoms/Deficit Lab Data Attestation: I reviewed the patient's lab results. Result diagrams: 01/31/20 16:20 01/31/20 16:20 Labs: Lab Results 01/31/20 01/31/20 01/31/20 Range/Units 16:20 16:20 16:20 WBC 4.2 L D (4.5-11.0) X10^3/uL RBC 4.55 (4.0-5.2) X10^6/uL Hgb 11.6 L (12.0-16.0) g/dL Hct 36.9 (36-46) % MCV 81.2 (80-100) fL MCH 25.5 L (26-34) PG MCHC 31.4 (30-36) % RDW 25.8 H (11.6-14.8) % Plt Count 210 (150-400) X10^3/uL Neut % (Auto) 61.7 D (50-75) % Lymph % (Auto) 25.9 (25-40) % [place] % (Auto) 10.4 (3-14) % Eos % (Auto) 1.5 L (2-4) % Baso % (Auto) 0.5 (0-2) % Neut # (Auto) 2600 (3356-3876) /uL Lymph # (Auto) 1100 (3156-9172) /uL [place] # (Auto) 400 (0-900) /uL Eos # (Auto) 100 (0-450) /uL Baso # (Auto) 0 (0-100) /uL RBC Morphology See below Hypochromasia 2+ H Anisocytosis 3+ H Ovalocytes 1+ H Stomatocytes 2+ H Sodium 141 (137-145) mmol/L Potassium 3.7 (3.4-5.1) mmol/L Chloride 101 (98-107) mmol/L Carbon Dioxide 37 H (22-32) mmol/L BUN 9 (7-17) mg/dL Creatinine 0.64 (0.52-1.04) mg/dL Estimated GFR > 60.0 (>60) mL/min BUN/Creatinine Ratio 14.1 (6-22) Glucose 110 H (70-100) mg/dL Lactate 0.7 (0.7-2.1) mmol/L Calcium 9.1 (8.4-10.2) mg/dL Total Bilirubin 0.2 (0.2-1.3) mg/dL AST 23 (14-36) IU/L ALT 14 (<35) IU/L Alkaline Phosphatase 71 (38-126) U/L Troponin I < 0.012 (0.01-0.034) ng/mL Total Protein 7.8 (6.3-8.2) g/dL Albumin 4.2 (3.5-5.0) g/dL Globulin 3.6 (1.7-4.1) g/dL Albumin/Globulin Ratio 1.2 (1.0-2.8) MDM Narrative Medical decision making narrative: 39-year-old woman with multiple medical issues presents with continued viral symptoms. Mild dehydration. Labs are reassuring. She is given a L of fluid along with reassurance. She is safe for home discharge Discharge Plan Departure Patient Disposition: Home Clinical Impression: Acute viral syndrome Instructions: DI for Viral Upper Respiratory Infection -- Adult Activity Restrictions/Additional Instructions: I am sorry you still are not feeling better. Your lab work today was reassuring. You do have a viral syndrome that does not appear to be Covid. Your sore throat should heal within 7-10 days of starting but it will take that much time. You need to make sure that you are drinking plenty of fluids and giving herself time to rest, sleep and fully heal. Prescriptions: No Action (DME) Diatrue Plus Test Strip strip See Dose Instructions .ROUTE .MEDSUPPLY Qty: 50 RF: 12 (DME) blood-glucose meter [Diatrue Plus Blood Glucose Met] misc See Dose Instructions .ROUTE .MEDSUPPLY Qty: 1 RF: 0 (DME) lancets [Easy Touch Twist Lancets] 33 gauge misc See Dose Instructions .ROUTE .MEDSUPPLY Qty: 100 RF: 3 (DME) TENS units device See Rx Instructions .ROUTE .MEDSUPPLY Qty: 1 RF: 0 ferrous fumarate 325 mg (106 mg iron) tablet 325 mg PO BID RF: 0 terazosin 2 mg capsule 2 mg PO DAILY RF: 0 varenicline 0.5 mg (11)- 1 mg (42) tablets,dose pack See Rx Instructions PO PER PKG DIR Qty: 53 RF: 0 Mirena 20 mcg/24 hours (5 yrs) 52 mg intrauterine device 1 device intrauterine ONCE Qty: 1 RF: 0 potassium chloride 20 mEq tablet extended release 20 meq PO DAILY RF: 0 pregabalin 150 mg capsule 150 mg PO BID Qty: 60 RF: 3 (DME) Compressioin Stockings Qty: 1 RF: 0 omeprazole 20 mg capsule,delayed release(/EC) 20 mg PO BID Qty: 180 RF: 1 levothyroxine 50 mcg tablet 50 mcg PO BEDTIME Qty: 60 RF: 0 acetaminophen [Tylenol Extra Strength] 500 mg tablet 2,000 mg PO BID RF: 0 fluticasone propion-salmeterol [Advair Diskus] 100-50 mcg/dose blister with device 1 puff INHALATION BID RF: 0 albuterol sulfate 90 mcg/actuation HFA aerosol inhaler 2 puff INHALATION Q4-6H PRN (Reason: shortness of breath or wheezing) Qty: 8.5 RF: 0 furosemide 20 mg Tablet 60 mg PO QPM RF: 0 furosemide 20 mg Tablet 100 mg PO QAM RF: 0 warfarin [Coumadin] 5 mg Tablet 5 mg PO Q OTHER DAY RF: 0 warfarin [Coumadin] 10 mg Tablet 10 mg PO Q OTHER DAY RF: 0 aripiprazole [Abilify] 5 mg tablet 5 mg PO BID RF: 0 duloxetine 60 mg capsule,delayed release(DR/EC) 90 mg PO DAILY RF: 0 cyclobenzaprine 10 mg tablet 10 mg PO BID RF: 0 metoprolol tartrate 25 mg tablet 12.5 mg PO BID RF: 0 Zubsolv 5.7-1.4 mg Tablet, Sublingual 1 tab SUBLINGUAL BID RF: 0 magnesium 250 mg Tablet 500 mg PO DAILY RF: 0 Referrals: Alejandra Lynch MD [Primary Care Provider] -
--- NOTE | 2020-01-31 15:27 | PC.NURSE ---
patient spouse was speaking to me, patient dropped her head, spouse states that's what she does. you wont be able to wake her, get some strong guys she's heavy patient did not fall, she stayed in the chair, i could hear her breathing. once the police commanding officer arrived i pushed her shoulders back up, she was then in a full sitting position and I raised her left eyelid, patient pulled it shut, i raised the right eyelid and she opened both her eyes. i asked her to get up and move to the wheel chair, she did without assistance (police commanding officer and i were standing next to her) patient taken to her room and she got up to the gurney safely on her own.
[2020-01-31] MEDS: SODIUM CHLORIDE 0.9% 1,000 ML 1000 ML IV (16:29)
[2020-01-31] MEDS: IBUPROFEN 400 MG TABLET PO (16:30)
[2020-01-31] MEDS: ACETAMINOPHEN 325 MG TABLET PO (16:30)
[2020-01-31 16:37] LABS: Add Manual Diff / Slide Review NO; Basophils Absolute Auto 0 /uL (0-100); Basophils Percent Auto 0.5 % (0-2); Eosinophils Absolute Auto 100 /uL (0-450); Eosinophils Percent Auto 1.5 % (2-4); Hematocrit 36.9 % (36-46); Hemoglobin 11.6 g/dL (12.0-16.0); Lymphocytes Absolute Auto 1100 /uL (1100-4500); Lymphocytes Percent Auto 25.9 % (25-40); Mean Corpuscular HGB Conc 31.4 % (30-36); Mean Corpuscular Hemoglobin 25.5 PG (26-34); Mean Corpuscular Volume 81.2 fL (80-100); Monocytes Absolute Auto 400 /uL (0-900); Monocytes Percent Auto 10.4 % (3-14); Neutrophils Absolute Auto 2600 /uL (1500-7000); Neutrophils Percent Auto 61.7 % (50-75); Platelet Count 210 X10^3/uL (150-400); Red Blood Cell Count 4.55 X10^6/uL (4.0-5.2); Red Cell Distribution Width 25.8 % (11.6-14.8); White Blood Cell Count 4.2 X10^3/uL (4.5-11.0)
[2020-01-31 16:47] LABS: Alanine Aminotransferase 14 IU/L (<35); Albumin 4.2 g/dL (3.5-5.0); Albumin Globulin Ratio 1.2 (1.0-2.8); Alkaline Phosphatase 71 U/L (38-126); Aspartate Aminotransferase 23 IU/L (14-36); BUN Creatinine Ratio 14.1 (6-22); Bilirubin Total 0.2 mg/dL (0.2-1.3); Blood Urea Nitrogen 9 mg/dL (7-17); Calcium 9.1 mg/dL (8.4-10.2); Carbon Dioxide 37 mmol/L (22-32); Chloride 101 mmol/L (98-107); Estimated Glomerular Filt Rate > 60.0 mL/min (>60); Globulin 3.6 g/dL (1.7-4.1); Glucose 110 mg/dL (70-100); HEMOLYSIS < 15 (0-50); Lactate (Lactic Acid) 0.7 mmol/L (0.7-2.1); Potassium 3.7 mmol/L (3.4-5.1); Sodium 141 mmol/L (137-145); Total Protein 7.8 g/dL (6.3-8.2)
[2020-01-31 16:58] LABS: Troponin I < 0.012 ng/mL (0.01-0.034)
--- NOTE | 2020-01-31 17:34 | PC.NURSE ---
Patient is sleeping and desats to 85% on RA. She wakens immediately to voice and states she has sleep apnea. Patient placed on 2L O2 NC at this time.
[2020-01-31 17:50] LABS: Anisocytosis 3+; Hypochromasia 2+; Ovalocytes 1+; Stomatocytes 2+
--- NOTE | 2020-01-31 18:14 | PC.NURSE ---
Fatigued, falls asleep easily
== END 2020-01-31 19:01 | disposition home or self-care (01) ==
PROVIDERS: Emergency Provider Emergency Medicine; PCP Family Medicine
DX: B34.9 Viral infection, unspecified (principal); J02.9 Acute pharyngitis, unspecified; R07.89 Other chest pain; E86.0 Dehydration; E66.9 Obesity, unspecified
CPT/HCPCS: 36415; 80053; 83605; 84484; 85025; 87040; 96360; 96361; 99284

== ENCOUNTER 2020-02-02 08:38 | Emergency (ER) | payer OTHER, SELFPAY ==
[2019-12-29 20:08] VITALS: BMI 48.2
[2020-02-02] VITALS (9 sets, daily range): BP systolic 147–170; BP diastolic 81–88; PULSE 78–99; RESP 13–17; TEMP 36.5; O2SAT 92–98; BMI 46.3
--- NOTE | 2020-02-02 09:14 | ED_ITS ---
HPI - Nausea/Vomiting/Diarrhea General Chief complaint: Nausea/Vomiting/Diarrhea Stated complaint: nauseu/ headache\confusuion/ per phs poss stroke Time Seen by Provider: 02/02/20 08:56 Source: patient Mode of arrival: Ambulatory Limitations: no limitations History of Present Illness HPI Narrative: Patient is a 39-year-old female who presents today with confusion. He is well known to myself and to this facility and having frequent ER visits. She was actually seen here twice this week already and diagnosed with a viral syndrome. She returns today with confusion. Her states that she was driving to work are going to work today however he said that she does not work today she has not worked in 10 years. She is unable to tell me what year it is and what month it is she begrudgingly follows commands. She was supposed to get a repeat COVID-19 test this week which is scheduled today. She admits to having 4 drinks last evening. She is on Coumadin for pulmonary embolism with subtherapeutic earlier this week and she had a CT scan for PE which was negative. MD complaint: nausea Related Data Home Medications Medication Instructions Recorded Confirmed acetaminophen 500 mg tablet 2,000 mg PO BID tab 09/23/18 01/18/20 magnesium 500 mg PO DAILY 06/29/19 01/18/20 potassium chloride 20 mEq 20 meq PO DAILY 07/07/19 01/18/20 tablet,extended release fluticasone propion-salmeterol 1 puff INHALATION BID 07/11/19 01/18/20 [Advair Diskus] furosemide 60 mg PO QPM 12/02/19 01/18/20 furosemide 100 mg PO QAM 12/02/19 01/18/20 warfarin [Coumadin] 5 mg PO Q OTHER DAY 12/02/19 01/18/20 warfarin [Coumadin] 10 mg PO Q OTHER DAY 12/02/19 01/18/20 Zubsolv 1 tab SUBLINGUAL BID 12/29/19 01/18/20 cyclobenzaprine 10 mg PO BID 12/29/19 01/18/20 duloxetine 90 mg PO DAILY 12/29/19 01/18/20 metoprolol tartrate 12.5 mg PO BID 12/29/19 01/18/20 ferrous fumarate 325 mg (106 mg 325 mg PO BID 01/04/20 01/18/20 iron) tablet terazosin 2 mg capsule 2 mg PO DAILY 01/04/20 01/18/20 Previous Rx's Medication Instructions Recorded blood sugar diagnostic #50 each 12/08/18 blood-glucose meter #1 each 12/08/18 lancets 33 gauge #100 each 12/08/18 TENS units #1 each 02/09/19 albuterol sulfate 2 puff INHALATION Q4-6H PRN #8.5 07/11/19 gram Compressioin Stockings #1 ea 10/13/19 omeprazole 20 mg capsule,delayed 20 mg PO BID #180 cap 01/02/20 release varenicline 0.5 mg (11)-1 mg (42) See Rx Instructions PO PER PKG DIR 01/04/20 tablets in a dose pack #53 each levothyroxine 50 mcg tablet 50 mcg PO BEDTIME #60 tab 01/10/20 levonorgestrel 20 mcg/24 hours (5 1 device INTRAUTERINE ONCE #1 each 01/18/20 yrs) 52 mg intrauterine device aripiprazole 5 mg tablet 5 mg PO BID #90 tab 02/01/20 pregabalin 150 mg capsule 150 mg PO BID #60 cap 02/01/20 Allergies Allergy/AdvReac Type Severity Reaction Status Date / Time carisoprodol [CARISOPRODOL] AdvReac Severe urinary Verified 01/18/20 15:30 retention fosphenytoin AdvReac Intermediate ITCHING Verified 01/18/20 15:30 Review of Systems Review of Systems Narrative: GENERAL: Denies chills, fatigue, malaise, fever, sweats, travel HEENT: Denies sinus pain, ear pain, sore throat, difficulty swallowing, neck pain RESPIRATORY: Denies dyspnea, cough, wheezing, hemoptysis, sputum. CARDIOVASCULAR: Denies chest pain, palpitations, orthopnea, edema GASTROINTESTINAL: Denies nausea, vomiting, abdominal pain, diarrhea, constipation, melena. : Denies dysuria, frequency, incontinence, hematuria, urinary retention, flank pain. MUSCULOSKELETAL: Denies weakness, joint pain, or bony pain SKIN: No rash, no erythema, no pruritus NEUROLOGIC: Confusion see HPI PSYCHIATRIC: No concerning psychosocial issues. 12 point review of systems is negative except for those stated above and HPI Patient History Medical History (Updated 02/02/20 @ 11:11 by Kristen Martinez DO) Acetaminophen overdose of undetermined intent (Resolved 12/2015) Alcoholism (Acute) Asthma (Chronic) Cubital tunnel syndrome (Chronic) Depression (Chronic 02/08/14) DM type 2 (diabetes mellitus, type 2) (Acute) DVT (deep venous thrombosis) (Acute) Essential hypertension (Chronic) Fibromyalgia (Chronic 03/02/15) Intraoperative cardiac arrest during non-cardiac surgery (Resolved 11/2013) 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 (Chronic) Morbid obesity (Chronic) Narcotic habituation, continuous (Acute) Obstipation (Inactive) LYLA (obstructive sleep apnea) (Chronic) Ovarian cyst (Chronic) Plantar fasciitis (Chronic) Psychogenic nonepileptic seizure (Acute) Pulmonary embolism (Acute) Status post laminectomy (Inactive 12/14/15) Suicide attempt (Resolved) Tylenol overdose (Resolved) Urinary retention (Acute) Surgical History History of carpal tunnel repair (Resolved 10/30/14) S/P epidural steroid injection (Resolved 11/2013) Status post dilation and curettage (Resolved 2008) Status post laminectomy (Resolved 09/2016) Family History Grandfather Diabetes mellitus Family/Other Pancreatic cancer Social History household members: spouse Smoking Status: Current every day smoker alcohol intake: current eating out: rarely or never Type(s) of exercise: normal ROM and activity and sedentary lifestyle Smoking Status: Current every day smoker alcohol intake frequency: a few times a week Substance Use Type: does not use Exam Initial Vital Signs Initial Vital Signs: Vital Signs Pulse Oximetry 92 02/02/20 08:45 GENERAL: Overweight young female flat affect and in no acute distress. HEENT: Head atraumatic,EOMI, pupils reactive, face symmetric, moist mucous membranes CARDIOVASCULAR: Regular rate and rhythm without murmurs, rubs or gallops. RESPIRATORY: Breath sounds equal bilaterally, no wheezes rales or rhonchi. ABDOMEN: Soft, nontender. Normoactive bowel sounds all 4 quadrants. No guarding or rebound. EXTREMITIES: Normal range of motion, no clubbing or edema. Neurovascularly intact NEUROLOGICAL: Alert and oriented x2.Normal gait and speech. Cranial nerves II through XII grossly intact. Fixed Capital Clerk strength equal bilaterally moving all extremities SKIN: Warm, dry, no laceration, no petechiae, no rashes or lesions. Scores ABCD2 Citation: Lancet. 2006Jun 20;369(5748):868-07. Validation and refinement of scores to predict very early stroke risk after transient ischaemic attack. [place] SC1, Robert PM, José MN, Rai MF, Clinton JS, Mohaumd AL, Tuan S. Course Orders Ordered: ED Orders 02/02/20 09:13 Complete Blood Count AUTO DIFF Stat Comprehensive Metabolic Panel Stat Test Serum,Qual Stat 02/02/20 09:20 CT head/brain wo con Stat 02/02/20 10:50 COVID19 -ED/INPAT/OR/L&D Stat Vital Signs Vital signs: Vital Signs - 8 hr 02/02/20 08:45 02/02/20 08:46 02/02/20 08:48 Temperature 97.7 F Pulse Rate 99 H 86 Respiratory Rate 16 Blood Pressure 170/88 H 170/88 H Pulse Oximetry 92 98 98 02/02/20 09:00 02/02/20 09:01 02/02/20 09:35 Temperature Pulse Rate 92 H 93 H 95 H Respiratory Rate 13 15 Blood Pressure 147/81 H Pulse Oximetry 97 97 92 02/02/20 10:00 02/02/20 10:30 02/02/20 11:00 Temperature Pulse Rate 88 78 85 Respiratory Rate 16 16 17 Blood Pressure Pulse Oximetry 98 96 97 MDM - Nausea/Vomiting/Diarrhea Lab Data Attestation: I reviewed the patient's lab results. Result diagrams: 02/02/20 09:13 02/02/20 09:13 Labs: Lab Results 02/02/20 02/02/20 02/02/20 Range/Units 09:13 09:13 09:13 WBC 4.8 (4.5-11.0) X10^3/uL RBC 4.38 (4.0-5.2) X10^6/uL Hgb 11.4 L (12.0-16.0) g/dL Hct 35.7 L (36-46) % MCV 81.4 (80-100) fL MCH 25.9 L (26-34) PG MCHC 31.9 (30-36) % RDW 25.9 H (11.6-14.8) % Plt Count 205 (150-400) X10^3/uL Neut % (Auto) 61.8 (50-75) % Lymph % (Auto) 25.3 (25-40) % [place] % (Auto) 10.4 (3-14) % Eos % (Auto) 2.0 (2-4) % Baso % (Auto) 0.5 (0-2) % Neut # (Auto) 3000 (1398-1727) /uL Lymph # (Auto) 1200 (6384-2837) /uL [place] # (Auto) 500 (0-900) /uL Eos # (Auto) 100 (0-450) /uL Baso # (Auto) 0 (0-100) /uL RBC Morphology See below Hypochromasia 1+ H Anisocytosis 2+ H Microcytosis 1+ H Sodium 140 (137-145) mmol/L Potassium 3.9 (3.4-5.1) mmol/L Chloride 100 (98-107) mmol/L Carbon Dioxide 36 H (22-32) mmol/L BUN 10 (7-17) mg/dL Creatinine 0.59 (0.52-1.04) mg/dL Estimated GFR > 60.0 (>60) mL/min BUN/Creatinine Ratio 16.9 (6-22) Glucose 122 H (70-100) mg/dL Calcium 8.9 (8.4-10.2) mg/dL Total Bilirubin 0.3 (0.2-1.3) mg/dL AST 24 (14-36) IU/L ALT 13 (<35) IU/L Alkaline Phosphatase 71 (38-126) U/L Total Protein 7.3 (6.3-8.2) g/dL Albumin 3.9 (3.5-5.0) g/dL Globulin 3.4 (1.7-4.1) g/dL Albumin/Globulin Ratio 1.1 (1.0-2.8) Serum , Qual Negative (Negative) COVID-19 PCR (Negative) 02/02/20 Range/Units 10:50 WBC (4.5-11.0) X10^3/uL RBC (4.0-5.2) X10^6/uL Hgb (12.0-16.0) g/dL Hct (36-46) % MCV (80-100) fL MCH (26-34) PG MCHC (30-36) % RDW (11.6-14.8) % Plt Count (150-400) X10^3/uL Neut % (Auto) (50-75) % Lymph % (Auto) (25-40) % [place] % (Auto) (3-14) % Eos % (Auto) (2-4) % Baso % (Auto) (0-2) % Neut # (Auto) (1297-7051) /uL Lymph # (Auto) (2797-0377) /uL [place] # (Auto) (0-900) /uL Eos # (Auto) (0-450) /uL Baso # (Auto) (0-100) /uL RBC Morphology Hypochromasia Anisocytosis Microcytosis Sodium (137-145) mmol/L Potassium (3.4-5.1) mmol/L Chloride (98-107) mmol/L Carbon Dioxide (22-32) mmol/L BUN (7-17) mg/dL Creatinine (0.52-1.04) mg/dL Estimated GFR (>60) mL/min BUN/Creatinine Ratio (6-22) Glucose (70-100) mg/dL Calcium (8.4-10.2) mg/dL Total Bilirubin (0.2-1.3) mg/dL AST (14-36) IU/L ALT (<35) IU/L Alkaline Phosphatase (38-126) U/L Total Protein (6.3-8.2) g/dL Albumin (3.5-5.0) g/dL Globulin (1.7-4.1) g/dL Albumin/Globulin Ratio (1.0-2.8) Serum , Qual (Negative) COVID-19 PCR Negative (Negative) Imaging Data CT scan - head: Radiologist's Impression: PROCEDURE: CT HEAD/BRAIN WO CON INDICATIONS: confusion on coumadin TECHNIQUE: Noncontrast 4.5 mm thick angled axial sections acquired from the foramen magnum to the vertex, with coronal and sagittal reformats. For radiation dose reduction, the following was used: automated exposure control, adjustment of mA and/or kV according to patient size. COMPARISON: [facility], CT, CT HEAD/BRAIN WO CON, 01/08/2020, 11:19. FINDINGS: Image quality: Excellent. CSF spaces: Basal cisterns are patent. No extra-axial fluid collections. Ventricles are normal in size and shape. Brain: No intracranial hemorrhage, mass, or mass effect. Waterman-white matter interface appears preserved. Skull and face: Calvarium and visualized facial bones are intact, without suspicious lesions. Sinuses: Visualized sinuses and mastoids are clear. IMPRESSION: 1. No acute intracranial abnormality. Dictated by: Gustavo Tracey M.D. on 02/02/2020 at 9:42 Approved by: Gustavo Tracey M.D. on 02/02/2020 at 9:43 ECG Data Attestation: I personally reviewed and interpreted this ECG as follows: Prior ECG tracings: available for review Interpretation: Normal sinus rhythm rate 89 p.r. interval 142 QRS 127 QTC 440 right bundle-branch block noted no ST changes similar MDM Narrative Medical decision making narrative: This is patient's 3rd visit to the ER this week. Blood work is reassuring in the same her repeat COVID-19 is negative it is unlikely that she has COVID-19. His unclear why she is confused today. I do suspect that she may have some psychiatric issues and strongly recommend that she follow-up with her primary care provider. At this time no focal deficits and patient is discharged. Discharge Plan Departure Patient Disposition: Home Clinical Impression: Acute viral syndrome Discharge Date/Time: 02/02/20 11:25 Instructions: DI for Viral Syndrome Activity Restrictions/Additional Instructions: *You have been diagnosed with viral syndrome *What to do: You do not have COVID-19. Your blood work is normal. The CT scan of your head is normal. You need to follow-up with her primary care provider *Continue to take medications as directed *Follow up with your primary care provider in 2-3 days *Return to ER if you should have any new, worsening or concerning symptoms Prescriptions: No Action (DME) Diatrue Plus Test Strip strip See Dose Instructions .ROUTE .MEDSUPPLY Qty: 50 RF: 12 (DME) blood-glucose meter [Diatrue Plus Blood Glucose Met] misc See Dose Instructions .ROUTE .MEDSUPPLY Qty: 1 RF: 0 (DME) lancets [Easy Touch Twist Lancets] 33 gauge misc See Dose Instructions .ROUTE .MEDSUPPLY Qty: 100 RF: 3 (DME) TENS units device See Rx Instructions .ROUTE .MEDSUPPLY Qty: 1 RF: 0 ferrous fumarate 325 mg (106 mg iron) tablet 325 mg PO BID RF: 0 terazosin 2 mg capsule 2 mg PO DAILY RF: 0 varenicline 0.5 mg (11)- 1 mg (42) tablets,dose pack See Rx Instructions PO PER PKG DIR Qty: 53 RF: 0 Mirena 20 mcg/24 hours (5 yrs) 52 mg intrauterine device 1 device intrauterine ONCE Qty: 1 RF: 0 potassium chloride 20 mEq tablet extended release 20 meq PO DAILY RF: 0 (DME) Compressioin Stockings Qty: 1 RF: 0 omeprazole 20 mg capsule,delayed release(DR/EC) 20 mg PO BID Qty: 180 RF: 1 levothyroxine 50 mcg tablet 50 mcg PO BEDTIME Qty: 60 RF: 0 aripiprazole [Abilify] 5 mg tablet 5 mg PO BID Qty: 90 RF: 0 pregabalin 150 mg capsule 150 mg PO BID Qty: 60 RF: 3 acetaminophen [Tylenol Extra Strength] 500 mg tablet 2,000 mg PO BID RF: 0 fluticasone propion-salmeterol [Advair Diskus] 100-50 mcg/dose blister with device 1 puff INHALATION BID RF: 0 albuterol sulfate 90 mcg/actuation HFA aerosol inhaler 2 puff INHALATION Q4-6H PRN (Reason: shortness of breath or wheezing) Qty: 8.5 RF: 0 furosemide 20 mg Tablet 60 mg PO QPM RF: 0 furosemide 20 mg Tablet 100 mg PO QAM RF: 0 warfarin [Coumadin] 5 mg Tablet 5 mg PO Q OTHER DAY RF: 0 warfarin [Coumadin] 10 mg Tablet 10 mg PO Q OTHER DAY RF: 0 duloxetine 60 mg capsule,delayed release(DR/EC) 90 mg PO DAILY RF: 0 cyclobenzaprine 10 mg tablet 10 mg PO BID RF: 0 metoprolol tartrate 25 mg tablet 12.5 mg PO BID RF: 0 Zubsolv 5.7-1.4 mg Tablet, Sublingual 1 tab SUBLINGUAL BID RF: 0 magnesium 250 mg Tablet 500 mg PO DAILY RF: 0 Referrals: Alejandra Lynch MD [Primary Care Provider] -
--- NOTE | 2020-02-02 09:20 | DI.CT.S_ITS ---
PROCEDURE: CT HEAD/BRAIN WO CON INDICATIONS: confusion on coumadin TECHNIQUE: Noncontrast 4.5 mm thick angled axial sections acquired from the foramen magnum to the vertex, with coronal and sagittal reformats. For radiation dose reduction, the following was used: automated exposure control, adjustment of mA and/or kV according to patient size. COMPARISON: [facility], CT, CT HEAD/BRAIN WO CON, 01/08/2020, 11:19. FINDINGS: Image quality: Excellent. CSF spaces: Basal cisterns are patent. No extra-axial fluid collections. Ventricles are normal in size and shape. Brain: No intracranial hemorrhage, mass, or mass effect. Waterman-white matter interface appears preserved. Skull and face: Calvarium and visualized facial bones are intact, without suspicious lesions. Sinuses: Visualized sinuses and mastoids are clear. IMPRESSION: 1. No acute intracranial abnormality. Dictated by: Gustavo Tracey M.D. on 02/02/2020 at 9:42 Approved by: Gustavo Tracey M.D. on 02/02/2020 at 9:43
[2020-02-02 09:31] LABS: Add Manual Diff / Slide Review NO; Alanine Aminotransferase 13 IU/L (<35); Albumin 3.9 g/dL (3.5-5.0); Albumin Globulin Ratio 1.1 (1.0-2.8); Alkaline Phosphatase 71 U/L (38-126); Aspartate Aminotransferase 24 IU/L (14-36); BUN Creatinine Ratio 16.9 (6-22); Basophils Absolute Auto 0 /uL (0-100); Basophils Percent Auto 0.5 % (0-2); Bilirubin Total 0.3 mg/dL (0.2-1.3); Blood Urea Nitrogen 10 mg/dL (7-17); Calcium 8.9 mg/dL (8.4-10.2); Carbon Dioxide 36 mmol/L (22-32); Chloride 100 mmol/L (98-107); Eosinophils Absolute Auto 100 /uL (0-450); Estimated Glomerular Filt Rate > 60.0 mL/min (>60); Globulin 3.4 g/dL (1.7-4.1); Glucose 122 mg/dL (70-100); HEMOLYSIS < 15 (0-50); Hematocrit 35.7 % (36-46); Hemoglobin 11.4 g/dL (12.0-16.0); Lymphocytes Absolute Auto 1200 /uL (1100-4500); Lymphocytes Percent Auto 25.3 % (25-40); Mean Corpuscular HGB Conc 31.9 % (30-36); Mean Corpuscular Hemoglobin 25.9 PG (26-34); Mean Corpuscular Volume 81.4 fL (80-100); Monocytes Absolute Auto 500 /uL (0-900); Monocytes Percent Auto 10.4 % (3-14); Neutrophils Absolute Auto 3000 /uL (1500-7000); Neutrophils Percent Auto 61.8 % (50-75); Platelet Count 205 X10^3/uL (150-400); Potassium 3.9 mmol/L (3.4-5.1); Red Blood Cell Count 4.38 X10^6/uL (4.0-5.2); Red Cell Distribution Width 25.9 % (11.6-14.8); Sodium 140 mmol/L (137-145); Total Protein 7.3 g/dL (6.3-8.2); White Blood Cell Count 4.8 X10^3/uL (4.5-11.0)
[2020-02-02 09:35] LABS: Pregnancy Test Serum,Qual Negative (Negative)
[2020-02-02 09:48] LABS: Anisocytosis 2+; Hypochromasia 1+; Microcytosis 1+
[2020-02-02 11:07] LABS: COVID19 -Nasal RAPID Negative (Negative)
== END 2020-02-02 11:25 | disposition home or self-care (01) ==
PROVIDERS: Emergency Provider Emergency Medicine; PCP Family Medicine
DX: B34.9 Viral infection, unspecified (principal); R41.0 Disorientation, unspecified; R11.0 Nausea; Z79.01 Long term (current) use of anticoagulants
CPT/HCPCS: 36415; 70450; 80053; 84703; 85025; 87635; 93005; 99284

== ENCOUNTER → 2020-02-08 12:51 | Outpatient (CLI) | payer OTHER, SELFPAY ==
[2019-12-29 20:08] VITALS: BMI 48.2
--- NOTE | 2020-02-08 13:57 | DIET.PN ---
Diabetes: Healthy Eating 2 Intervention: Fats effects on glucose, weight, heart disease, cholesterol Sat Vs Unsat Protein- animal and plant based options Low, med, high fat meats Sugar substitutes Sodium Health claims Grocery shopping guidelines Eating away from home Alcohol Sick day guidelines Ketone Testing :
== END ==
PROVIDERS: PCP Family Medicine; Referring Provider Family Medicine; Visit Provider Family Medicine
DX: E11.9 Type 2 diabetes mellitus without complications (principal); Z71.3 Dietary counseling and surveillance
CPT/HCPCS: G0109

== ENCOUNTER → 2020-02-16 14:20 | Outpatient (CLI) | payer OTHER, SELFPAY ==
[2019-12-29 20:08] VITALS: BMI 48.2
--- NOTE | 2020-02-16 | DI.US.S_ITS ---
PROCEDURE: US PERIPH VENOUS LOW EXTREM LT INDICATIONS: R/O DVT TECHNIQUE: Real-time imaging, as well as color and pulse Doppler interrogation, were performed of the lower extremity deep veins from the inguinal ligament to the popliteal fossa. COMPARISON: None. FINDINGS: The common femoral, femoral and popliteal veins are normally compressible, and free of intraluminal thrombus. Color and pulse Doppler demonstrate normal phasic intraluminal flow. There is normal augmentation response to distal compression maneuver. IMPRESSION: No sonographic evidence of deep venous thrombosis. No evidence of significant venous reflux. Dictated by: Reg Lopez M.D. on 02/16/2020 at 15:09 Approved by: Reg Lopez M.D. on 02/16/2020 at 15:09
== END ==
PROVIDERS: PCP Family Medicine; Referring Provider Orthopaedic Surgery Adult Reconstructive Orthopaedic Surgery; Visit Provider Orthopaedic Surgery Adult Reconstructive Orthopaedic Surgery
DX: M25.562 Pain in left knee (principal); M79.662 Pain in left lower leg; Z86.718 Personal history of other venous thrombosis and embolism
CPT/HCPCS: 93971

== ENCOUNTER → 2020-02-24 13:30 | Outpatient (CLI) | payer OTHER, SELFPAY ==
[2019-12-29 20:08] VITALS: BMI 48.2
--- NOTE | 2020-02-24 13:31 | DI.RAD.S_ITS ---
PROCEDURE: XR CHEST 2V INDICATIONS: cough, SOB, fatigue TECHNIQUE: 2 views of the chest were acquired. COMPARISON: [facility], CR, XR CHEST 1V, 01/08/2020, 10:58. FINDINGS: Surgical changes and devices: None. Lungs and pleura: Lungs are clear. No pleural effusions or pneumothorax. Mediastinum: Mediastinal contours are normal. Heart size is normal. Bones and chest wall: No suspicious bony abnormalities. Soft tissues appear unremarkable. IMPRESSION: No acute disease. Dictated by: Zaheer De Guzman M.D. on 02/24/2020 at 15:45 Approved by: Zaheer De Guzman M.D. on 02/24/2020 at 15:45
== END ==
PROVIDERS: PCP Family Medicine; Referring Provider Family Medicine; Visit Provider Family Medicine
DX: R05 Cough (principal); R06.02 Shortness of breath; R53.83 Other fatigue
CPT/HCPCS: 71046

== ENCOUNTER → 2020-02-24 15:45 | Outpatient (CLI) | payer OTHER, SELFPAY ==
[2019-12-29 20:08] VITALS: BMI 48.2
[2020-02-26 09:31] LABS: COVID19 Sendout Not Detected (Not Detect)
== END ==
PROVIDERS: PCP Family Medicine; Visit Provider Physician Assistant
DX: Z11.59 Encounter for screening for other viral diseases (principal)
CPT/HCPCS: 87635

== ENCOUNTER 2020-02-24 16:00 | Emergency (ER) | payer OTHER, SELFPAY ==
[2019-12-29 20:08] VITALS: BMI 48.2
[2020-02-24] VITALS (8 sets, daily range): BP systolic 135–168; BP diastolic 74–92; PULSE 90–124; RESP 18–25; TEMP 36.8; O2SAT 93–99; BMI 46.0
--- NOTE | 2020-02-24 16:27 | ED.GENADULT ---
HPI - General Adult General Chief complaint: Upper Respiratory Symptoms Stated complaint: dizzy,vomiting, diarrhea,chest pains Time Seen by Provider: 02/24/20 16:26 Source: patient Mode of arrival: Ambulatory Limitations: no limitations History of Present Illness HPI narrative: 39-year-old woman with complex medical history including, obesity, pulmonary emboli currently on Coumadin, hypertension, chronic pain currently on Zubsolv, diabetes sleep apnea fibromyalgia and hypothyroidism presents to urgent care initially complaining of nonproductive cough, dizziness for 4 days hot and cold sweats, diarrhea vomiting for the past 2 days and excessive fatigue and excessive sleeping.. She complains of chest pain after coughing. She also notes that since having on Mirena placed her menses have been much heavier. She is currently on day 7 of her menstrual cycle with Mirena in place and taking iron supplementation. She notes the highest a single sugar has been is in the 200 range but she has not checked over the last few days. She notes polydipsia but no urinary symptoms. With the vomiting and diarrhea she has not been able to take her regular Zubsolv. In the respiratory clinic this morning and interpreted as normal. Related Data Home Medications Medication Instructions Recorded Confirmed acetaminophen 500 mg tablet 2,000 mg PO BID tab 09/23/18 02/24/20 magnesium 500 mg PO DAILY 06/29/19 02/24/20 potassium chloride 20 mEq 20 meq PO DAILY 07/07/19 02/24/20 tablet,extended release fluticasone propion-salmeterol 1 puff INHALATION BID 07/11/19 02/24/20 [Advair Diskus] furosemide 60 mg PO QPM 12/02/19 02/24/20 furosemide 100 mg PO QAM 12/02/19 02/24/20 warfarin [Coumadin] 5 mg PO Q OTHER DAY 12/02/19 02/24/20 warfarin [Coumadin] 10 mg PO Q OTHER DAY 12/02/19 02/24/20 Zubsolv 1 tab SUBLINGUAL BID 12/29/19 02/24/20 duloxetine 90 mg PO DAILY 12/29/19 02/24/20 metoprolol tartrate 12.5 mg PO BID 12/29/19 02/24/20 ferrous fumarate 325 mg (106 mg 325 mg PO BID 01/04/20 02/24/20 iron) tablet terazosin 2 mg capsule 2 mg PO DAILY 01/04/20 02/24/20 Previous Rx's Medication Instructions Recorded blood sugar diagnostic #50 each 12/08/18 blood-glucose meter #1 each 12/08/18 lancets 33 gauge #100 each 12/08/18 TENS units #1 each 02/09/19 albuterol sulfate 2 puff INHALATION Q4-6H PRN #8.5 07/11/19 gram Compressioin Stockings #1 ea 10/13/19 omeprazole 20 mg capsule,delayed 20 mg PO BID #180 cap 01/02/20 release levothyroxine 50 mcg tablet 50 mcg PO BEDTIME #60 tab 01/10/20 levonorgestrel 20 mcg/24 hours (5 1 device INTRAUTERINE ONCE #1 each 01/18/20 yrs) 52 mg intrauterine device aripiprazole 5 mg tablet 5 mg PO BID #90 tab 02/01/20 pregabalin 150 mg capsule 150 mg PO BID #60 cap 02/01/20 varenicline 1 mg tablet 1 mg PO BID #56 tab 02/08/20 cyclobenzaprine 10 mg tablet 10 mg PO BID #60 tab 02/13/20 ondansetron 4 mg PO Q8H PRN #30 tab 02/24/20 Allergies Allergy/AdvReac Type Severity Reaction Status Date / Time carisoprodol [CARISOPRODOL] AdvReac Severe urinary Verified 02/24/20 15:41 retention fosphenytoin AdvReac Intermediate ITCHING Verified 02/24/20 15:41 Review of Systems Review of Systems Narrative: Remainder of review of systems including constitutional, ENT, cardiovascular, respiratory, GI, , musculoskeletal, skin, neurologic and psychiatric systems reviewed and are unremarkable except as noted in HPI. Patient History Medical History Acetaminophen overdose of undetermined intent (Resolved 12/2015) Alcoholism (Acute) Asthma (Chronic) Cubital tunnel syndrome (Chronic) Depression (Chronic 02/08/14) DM type 2 (diabetes mellitus, type 2) (Acute) DVT (deep venous thrombosis) (Acute) Essential hypertension (Chronic) Fibromyalgia (Chronic 03/02/15) Intraoperative cardiac arrest during non-cardiac surgery (Resolved 11/2013) 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 (Chronic) Morbid obesity (Chronic) Narcotic habituation, continuous (Acute) Obstipation (Inactive) LYLA (obstructive sleep apnea) (Chronic) Ovarian cyst (Chronic) Plantar fasciitis (Chronic) Psychogenic nonepileptic seizure (Acute) Pulmonary embolism (Acute) Status post laminectomy (Inactive 12/14/15) Suicide attempt (Resolved) Tylenol overdose (Resolved) Urinary retention (Acute) Surgical History History of carpal tunnel repair (Resolved 10/30/14) S/P epidural steroid injection (Resolved 11/2013) Status post dilation and curettage (Resolved 2008) Status post laminectomy (Resolved 09/2016) Family History Grandfather Diabetes mellitus Family/Other Pancreatic cancer Social History household members: spouse Smoking Status: Former smoker alcohol intake: current eating out: rarely or never Type(s) of exercise: normal ROM and activity and sedentary lifestyle Smoking Status: Former smoker alcohol intake frequency: a few times a week Substance Use Type: does not use Exam Narrative Exam Narrative: General: Obese, Healthy appearing, in no acute distress. Able to give a complete and coherent history. Well-nourished well-developed HEENT: Moist mucous membranes, normal sclera with reactive pupils, Neck: No JVD, supple Respiratory: Lungs are clear to auscultation, no wheezing no rales no rhonchi. Full and symmetrical air movement Cardiac: Regular rate and rhythm no murmurs no bruits Abdomen: Soft nontender good bowel tones, no flank pain Skin: Warm and dry, no rashes Neurologic: Grossly neurologically intact with no obvious asymmetries or abnormalities Extremities: No trauma, well perfused, no edema Psych: Cooperative, appropriate insight and affect Initial Vital Signs Initial Vital Signs: Vital Signs Temperature 98.3 F 02/24/20 16:06 Pulse Rate 124 H 02/24/20 16:06 Respiratory Rate 20 02/24/20 16:06 Blood Pressure 144/90 H 02/24/20 16:06 Pulse Oximetry 99 02/24/20 16:06 Course Orders Ordered: ED Orders 02/24/20 16:48 Urinalysis and Microscopic Stat 02/24/20 17:10 COVID19 -ED/INPAT/OR/L&D Stat Complete Blood Count AUTO DIFF Stat Comprehensive Metabolic Panel Stat Lipase Stat Magnesium Stat Prothrombin Time INR Stat 02/24/20 17:16 EKG-12 Lead Stat Discontinued Medications Buprenorphine/Naloxone (Suboxone 8/2 Mg Sl) 1 tab SL NOW ONE Stop: 02/24/20 16:50 Last Admin: 02/24/20 16:57 Dose: 1 tab Documented by: SALAZAR Sodium Chloride (Normal Saline 0.9%) 1,000 mls @ 1,000 mls/hr IV BOLUS ONE Stop: 02/24/20 17:47 Last Admin: 02/24/20 16:58 Dose: 1,000 mls/hr Documented by: SALAZAR Ondansetron HCl (Zofran) 4 mg IV NOW ONE Stop: 02/24/20 16:49 Last Admin: 02/24/20 16:58 Dose: 4 mg Documented by: SALAZAR Vital Signs Vital signs: Vital Signs - 8 hr 02/24/20 16:06 02/24/20 16:19 02/24/20 16:23 Temperature 98.3 F Pulse Rate 124 H 114 H 112 H Respiratory Rate 20 25 H Blood Pressure 144/90 H 168/92 H Pulse Oximetry 99 98 97 02/24/20 16:30 02/24/20 17:00 Temperature Pulse Rate 113 H 103 H Respiratory Rate 19 18 Blood Pressure Pulse Oximetry 96 97 Medical Decision Making Medical Records Medical records reviewed: Yes I reviewed the patient's medical records. Lab Data Result diagrams: 02/24/20 17:10 02/24/20 17:10 Labs: Lab Results 02/24/20 02/24/20 02/24/20 Range/Units 17:10 17:10 17:10 WBC 7.2 (4.5-11.0) X10^3/uL RBC 4.83 (4.0-5.2) X10^6/uL Hgb 13.3 (12.0-16.0) g/dL Hct 40.1 (36-46) % MCV 83.0 (80-100) fL MCH 27.5 (26-34) PG MCHC 33.1 (30-36) % RDW 23.6 H (11.6-14.8) % Plt Count 254 (150-400) X10^3/uL Neut % (Auto) 70.8 (50-75) % Lymph % (Auto) 16.7 L (25-40) % [place] % (Auto) 9.5 (3-14) % Eos % (Auto) 0.8 L (2-4) % Baso % (Auto) 2.2 H (0-2) % Neut # (Auto) 5100 (4715-1393) /uL Lymph # (Auto) 1200 (7852-7405) /uL [place] # (Auto) 700 (0-900) /uL Eos # (Auto) 100 (0-450) /uL Baso # (Auto) 200 H (0-100) /uL RBC Morphology Not Reportable Anisocytosis 2+ H PT 24.6 H (10.1-12.7) SECONDS INR 2.2 H (0.9-1.3) Sodium 138 (137-145) mmol/L Potassium 3.8 (3.4-5.1) mmol/L Chloride 99 (98-107) mmol/L Carbon Dioxide 33 H (22-32) mmol/L BUN 9 (7-17) mg/dL Creatinine 0.51 L (0.52-1.04) mg/dL Estimated GFR > 60.0 (>60) mL/min BUN/Creatinine Ratio 17.6 (6-22) Glucose 103 H (70-100) mg/dL Calcium 9.6 (8.4-10.2) mg/dL Magnesium 2.4 H (1.6-2.3) mg/dL Total Bilirubin 0.2 (0.2-1.3) mg/dL AST 23 (14-36) IU/L ALT 15 (<35) IU/L Alkaline Phosphatase 80 (38-126) U/L Total Protein 8.3 H (6.3-8.2) g/dL Albumin 4.6 (3.5-5.0) g/dL Globulin 3.7 (1.7-4.1) g/dL Albumin/Globulin Ratio 1.2 (1.0-2.8) Lipase 81 (23-300) U/L COVID-19 PCR (Negative) 02/24/20 Range/Units 17:10 WBC (4.5-11.0) X10^3/uL RBC (4.0-5.2) X10^6/uL Hgb (12.0-16.0) g/dL Hct (36-46) % MCV (80-100) fL MCH (26-34) PG MCHC (30-36) % RDW (11.6-14.8) % Plt Count (150-400) X10^3/uL Neut % (Auto) (50-75) % Lymph % (Auto) (25-40) % [place] % (Auto) (3-14) % Eos % (Auto) (2-4) % Baso % (Auto) (0-2) % Neut # (Auto) (9694-3149) /uL Lymph # (Auto) (8143-7117) /uL [place] # (Auto) (0-900) /uL Eos # (Auto) (0-450) /uL Baso # (Auto) (0-100) /uL RBC Morphology Anisocytosis PT (10.1-12.7) SECONDS INR (0.9-1.3) Sodium (137-145) mmol/L Potassium (3.4-5.1) mmol/L Chloride (98-107) mmol/L Carbon Dioxide (22-32) mmol/L BUN (7-17) mg/dL Creatinine (0.52-1.04) mg/dL Estimated GFR (>60) mL/min BUN/Creatinine Ratio (6-22) Glucose (70-100) mg/dL Calcium (8.4-10.2) mg/dL Magnesium (1.6-2.3) mg/dL Total Bilirubin (0.2-1.3) mg/dL AST (14-36) IU/L ALT (<35) IU/L Alkaline Phosphatase (38-126) U/L Total Protein (6.3-8.2) g/dL Albumin (3.5-5.0) g/dL Globulin (1.7-4.1) g/dL Albumin/Globulin Ratio (1.0-2.8) Lipase (23-300) U/L COVID-19 PCR Negative (Negative) Imaging Data Chest x-ray: Radiologist's Impression: FINDINGS: Surgical changes and devices: None. Lungs and pleura: Lungs are clear. No pleural effusions or pneumothorax. Mediastinum: Mediastinal contours are normal. Heart size is normal. Bones and chest wall: No suspicious bony abnormalities. Soft tissues appear unremarkable. IMPRESSION: No acute disease. Dictated by: Zaheer De Guzman M.D. on 02/24/2020 at 15:45 ECG Data Attestation: I personally reviewed and interpreted this ECG as follows: Interpretation: Sinus tach at 112 right bundle branch block Normal axis No acute ST elevation MDM Narrative Medical decision making narrative: Dizziness, vomiting, diarrhea. No evidence of pneumonia, bronchitis, Covid, pulmonary embolism (INR is therapeutic at 2.2). After fluids and Zofran as well as Suboxone she is feeling slightly better. Reviewed all negative findings. At this point she is safe to go home and continue with usual medications. She does need a refill of Zofran will make that available to her. She is safe for home discharge Discharge Plan Departure Patient Disposition: Home Clinical Impression: Nausea vomiting and diarrhea Instructions: DI for Vomiting -- Adult Activity Restrictions/Additional Instructions: Thank you for coming in Your workup here was entirely reassuring. Chest x-ray was normal. All of your lab work was normal suggesting no infection, no heart attack, no kidney failure or liver failure. Your blood sugar was reassuring. Your repeat Covid study was negative. 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 If you have worsening symptoms or new complaints please feel free to return and I am happy to re-evaluate. I hope you feel better Prescriptions: New ondansetron 4 mg tablet,disintegrating 4 mg PO Q8H PRN (Reason: nausea and vomiting) Qty: 30 RF: 0 No Action (DME) Diatrue Plus Test Strip strip See Dose Instructions .ROUTE .MEDSUPPLY Qty: 50 RF: 12 (DME) blood-glucose meter [Diatrue Plus Blood Glucose Met] misc See Dose Instructions .ROUTE .MEDSUPPLY Qty: 1 RF: 0 (DME) lancets [Easy Touch Twist Lancets] 33 gauge misc See Dose Instructions .ROUTE .MEDSUPPLY Qty: 100 RF: 3 (DME) TENS units device See Rx Instructions .ROUTE .MEDSUPPLY Qty: 1 RF: 0 ferrous fumarate 325 mg (106 mg iron) tablet 325 mg PO BID RF: 0 terazosin 2 mg capsule 2 mg PO DAILY RF: 0 Mirena 20 mcg/24 hours (5 yrs) 52 mg intrauterine device 1 device intrauterine ONCE Qty: 1 RF: 0 potassium chloride 20 mEq tablet extended release 20 meq PO DAILY RF: 0 (DME) Compressioin Stockings Qty: 1 RF: 0 omeprazole 20 mg capsule,delayed release(DR/EC) 20 mg PO BID Qty: 180 RF: 1 levothyroxine 50 mcg tablet 50 mcg PO BEDTIME Qty: 60 RF: 0 aripiprazole [Abilify] 5 mg tablet 5 mg PO BID Qty: 90 RF: 0 pregabalin 150 mg capsule 150 mg PO BID Qty: 60 RF: 3 varenicline 1 mg tablet 1 mg PO BID Qty: 56 RF: 2 cyclobenzaprine 10 mg tablet 10 mg PO BID Qty: 60 RF: 0 acetaminophen [Tylenol Extra Strength] 500 mg tablet 2,000 mg PO BID RF: 0 fluticasone propion-salmeterol [Advair Diskus] 100-50 mcg/dose blister with device 1 puff INHALATION BID RF: 0 albuterol sulfate 90 mcg/actuation HFA aerosol inhaler 2 puff INHALATION Q4-6H PRN (Reason: shortness of breath or wheezing) Qty: 8.5 RF: 0 furosemide 20 mg Tablet 60 mg PO QPM RF: 0 furosemide 20 mg Tablet 100 mg PO QAM RF: 0 warfarin [Coumadin] 5 mg Tablet 5 mg PO Q OTHER DAY RF: 0 warfarin [Coumadin] 10 mg Tablet 10 mg PO Q OTHER DAY RF: 0 duloxetine 60 mg capsule,delayed release(DR/EC) 90 mg PO DAILY RF: 0 metoprolol tartrate 25 mg tablet 12.5 mg PO BID RF: 0 Zubsolv 5.7-1.4 mg Tablet, Sublingual 1 tab SUBLINGUAL BID RF: 0 magnesium 250 mg Tablet 500 mg PO DAILY RF: 0 Referrals: Alejandra Lynch MD [Primary Care Provider] -
[2020-02-24] MEDS: BUPRENORPHINE/NALOXONE 8MG/2MG 1 TAB SL (16:57)
[2020-02-24] MEDS: ONDANSETRON 4 MG/2 ML INJ IV (16:58)
[2020-02-24] MEDS: SODIUM CHLORIDE 0.9% 1,000 ML 1000 ML IV (16:58)
[2020-02-24 17:29] LABS: Add Manual Diff / Slide Review NO; Basophils Absolute Auto 200 /uL (0-100); Basophils Percent Auto 2.2 % (0-2); Eosinophils Absolute Auto 100 /uL (0-450); Eosinophils Percent Auto 0.8 % (2-4); Hematocrit 40.1 % (36-46); Hemoglobin 13.3 g/dL (12.0-16.0); INR 2.2 (0.9-1.3); Lymphocytes Absolute Auto 1200 /uL (1100-4500); Lymphocytes Percent Auto 16.7 % (25-40); Mean Corpuscular HGB Conc 33.1 % (30-36); Mean Corpuscular Hemoglobin 27.5 PG (26-34); Monocytes Absolute Auto 700 /uL (0-900); Monocytes Percent Auto 9.5 % (3-14); Neutrophils Absolute Auto 5100 /uL (1500-7000); Neutrophils Percent Auto 70.8 % (50-75); Platelet Count 254 X10^3/uL (150-400); Prothrombin Time 24.6 SECONDS (10.1-12.7); Red Blood Cell Count 4.83 X10^6/uL (4.0-5.2); Red Cell Distribution Width 23.6 % (11.6-14.8); White Blood Cell Count 7.2 X10^3/uL (4.5-11.0)
[2020-02-24 17:35] LABS: Alanine Aminotransferase 15 IU/L (<35); Albumin 4.6 g/dL (3.5-5.0); Albumin Globulin Ratio 1.2 (1.0-2.8); Alkaline Phosphatase 80 U/L (38-126); Aspartate Aminotransferase 23 IU/L (14-36); BUN Creatinine Ratio 17.6 (6-22); Bilirubin Total 0.2 mg/dL (0.2-1.3); Blood Urea Nitrogen 9 mg/dL (7-17); COVID19 -Nasal RAPID Negative (Negative); Calcium 9.6 mg/dL (8.4-10.2); Carbon Dioxide 33 mmol/L (22-32); Chloride 99 mmol/L (98-107); Estimated Glomerular Filt Rate > 60.0 mL/min (>60); Globulin 3.7 g/dL (1.7-4.1); Glucose 103 mg/dL (70-100); HEMOLYSIS 19 (0-50); Lipase 81 U/L (23-300); Magnesium 2.4 mg/dL (1.6-2.3); Potassium 3.8 mmol/L (3.4-5.1); Sodium 138 mmol/L (137-145); Total Protein 8.3 g/dL (6.3-8.2)
[2020-02-24 17:48] LABS: Anisocytosis 2+
== END 2020-02-24 18:10 | disposition home or self-care (01) ==
PROVIDERS: Emergency Provider Emergency Medicine; PCP Family Medicine
DX: R11.2 Nausea with vomiting, unspecified (principal); Z03.818 Encounter for observation for suspected exposure to other biological agents ruled out; R05 Cough; R06.02 Shortness of breath; R53.83 Other fatigue
CPT/HCPCS: 36415; 71046; 80053; 83690; 83735; 85025; 85610; 87635; 93005; 96361; 96374; 99284; J2405

== ENCOUNTER 2020-02-29 01:05 | Emergency (ER) | payer OTHER, SELFPAY ==
[2019-12-29 20:08] VITALS: BMI 48.2
[2020-02-29 01:14] VITALS: BP 137/82; PULSE 94; RESP 18; TEMP 36.6; O2SAT 97; BMI 45.1
--- NOTE | 2020-02-29 01:31 | PC.NURSE ---
Pt tried to urinate without success
--- NOTE | 2020-02-29 01:36 | ED.FEMALEGU ---
HPI - Female Genitourinary General Chief complaint: Urogenital-Female Stated complaint: urinary retention Time Seen by Provider: 02/29/20 01:16 Source: patient and family Mode of arrival: Ambulatory Limitations: no limitations History of Present Illness HPI Narrative: Patient here for urinary retention. Not voided since 7:00 p.m. tonight. Feels like retention again. Seen here last year and had Shae catheter placed. 1200 mL urine out. Tonight on bladder scan for 150 mL. Patient does have urologist dr ferrari in [place]. Idiopathic etiology for urinary retention. Has been out of terazosin for 2 weeks that helps for retention. Denies any recent illness. Related Data Home Medications Medication Instructions Recorded Confirmed acetaminophen 500 mg tablet 2,000 mg PO BID tab 09/23/18 02/24/20 magnesium 500 mg PO DAILY 06/29/19 02/24/20 potassium chloride 20 mEq 20 meq PO DAILY 07/07/19 02/24/20 tablet,extended release fluticasone propion-salmeterol 1 puff INHALATION BID 07/11/19 02/24/20 [Advair Diskus] furosemide 60 mg PO QPM 12/02/19 02/24/20 furosemide 100 mg PO QAM 12/02/19 02/24/20 warfarin [Coumadin] 5 mg PO Q OTHER DAY 12/02/19 02/24/20 warfarin [Coumadin] 10 mg PO Q OTHER DAY 12/02/19 02/24/20 Zubsolv 1 tab SUBLINGUAL BID 12/29/19 02/24/20 duloxetine 90 mg PO DAILY 12/29/19 02/24/20 metoprolol tartrate 12.5 mg PO BID 12/29/19 02/24/20 ferrous fumarate 325 mg (106 mg 325 mg PO BID 01/04/20 02/24/20 iron) tablet terazosin 2 mg capsule 2 mg PO DAILY 01/04/20 02/24/20 Previous Rx's Medication Instructions Recorded blood sugar diagnostic #50 each 12/08/18 blood-glucose meter #1 each 12/08/18 lancets 33 gauge #100 each 12/08/18 TENS units #1 each 02/09/19 albuterol sulfate 2 puff INHALATION Q4-6H PRN #8.5 07/11/19 gram Compressioin Stockings #1 ea 10/13/19 omeprazole 20 mg capsule,delayed 20 mg PO BID #180 cap 01/02/20 release levothyroxine 50 mcg tablet 50 mcg PO BEDTIME #60 tab 01/10/20 levonorgestrel 20 mcg/24 hours (5 1 device INTRAUTERINE ONCE #1 each 01/18/20 yrs) 52 mg intrauterine device aripiprazole 5 mg tablet 5 mg PO BID #90 tab 02/01/20 pregabalin 150 mg capsule 150 mg PO BID #60 cap 02/01/20 varenicline 1 mg tablet 1 mg PO BID #56 tab 02/08/20 cyclobenzaprine 10 mg tablet 10 mg PO BID #60 tab 02/13/20 ondansetron 4 mg PO Q8H PRN #30 tab 02/24/20 cephalexin 500 mg PO TID #15 cap 02/29/20 terazosin 2 mg PO BEDTIME #14 cap 02/29/20 Allergies Allergy/AdvReac Type Severity Reaction Status Date / Time carisoprodol [CARISOPRODOL] AdvReac Severe urinary Verified 02/24/20 15:41 retention fosphenytoin AdvReac Intermediate ITCHING Verified 02/24/20 15:41 Review of Systems Review of Systems Narrative: GENERAL: Denies chills, fatigue, malaise, fever, sweats. HEENT: Denies sinus pain, ear pain, sore throat, difficulty swallowing, dizziness. RESPIRATORY: Denies dyspnea, cough, wheezing, hemoptysis, sputum. CARDIOVASCULAR: Denies chest pain, palpitations, orthopnea, edema, GASTROINTESTINAL: Denies nausea, vomiting, abdominal pain, diarrhea, constipation, melena. : Denies dysuria, frequency, incontinence, hematuria, complains of urinary retention. MUSCULOSKELETAL: denies weakness, joint pain, or bony pain SKIN: Denies rash, skin lesions NEUROLOGIC: Denies weakness, headache, numbness, change in speech, confusion, seizures, incoordination. PSYCHIATRIC: No concerning psychosocial issues. ROS Unobtainable: All systems reviewed & are unremarkable except as noted in HPI and below Patient History Medical History Acetaminophen overdose of undetermined intent (Resolved 12/2015) Alcoholism (Acute) Asthma (Chronic) Cubital tunnel syndrome (Chronic) Depression (Chronic 02/08/14) DM type 2 (diabetes mellitus, type 2) (Acute) DVT (deep venous thrombosis) (Acute) Essential hypertension (Chronic) Fibromyalgia (Chronic 03/02/15) Intraoperative cardiac arrest during non-cardiac surgery (Resolved 11/2013) 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 (Chronic) Morbid obesity (Chronic) Narcotic habituation, continuous (Acute) Obstipation (Inactive) LYLA (obstructive sleep apnea) (Chronic) Ovarian cyst (Chronic) Plantar fasciitis (Chronic) Psychogenic nonepileptic seizure (Acute) Pulmonary embolism (Acute) Status post laminectomy (Inactive 12/14/15) Suicide attempt (Resolved) Tylenol overdose (Resolved) Urinary retention (Acute) Surgical History History of carpal tunnel repair (Resolved 10/30/14) S/P epidural steroid injection (Resolved 11/2013) Status post dilation and curettage (Resolved 2008) Status post laminectomy (Resolved 09/2016) Family History Grandfather Diabetes mellitus Family/Other Pancreatic cancer alcohol intake frequency: a few times a week Substance Use Type: does not use Exam Narrative Exam Narrative: GENERAL: patient appears stated age. Well-nourished, well-developed patient, in no distress, not toxic HEAD: Atraumatic. Normocephalic. CARDIOVASCULAR: Regular rate and rhythm without murmurs, gallops, or rubs. RESPIRATORY: Clear to auscultation. Breath sounds equal bilaterally. No wheezes, rales, or rhonchi. GASTROINTESTINAL: Abdomen soft, non-tender, nondistended. NEURO: AOx4. SKIN: No rash or erythema of visible areas PSYCH: Not anxious, is cooperative Initial Vital Signs Initial Vital Signs: Vital Signs Temperature 98 F 02/29/20 01:14 Pulse Rate 94 H 02/29/20 01:14 Respiratory Rate 18 02/29/20 01:14 Blood Pressure 137/82 02/29/20 01:14 Pulse Oximetry 97 02/29/20 01:14 Course Course Course Narrative: 600 mL urine in the Shea bag with instant relief Orders Ordered: Discontinued Medications Cephalexin HCl (Keflex) 500 mg PO NOW ONE Stop: 02/29/20 01:59 Last Admin: 02/29/20 02:04 Dose: 500 mg Documented by: AUPDIKE Terazosin HCl (Hytrin) 2 mg PO NOW ONE Stop: 02/29/20 01:45 Last Admin: 02/29/20 01:55 Dose: 2 mg Documented by: RAINE Reevaluation(s) Reevaluation #1: Patient states feels much better after Shea catheter placement and 600 mL of urine output Time: 02:03 Vital Signs Vital signs: Vital Signs - 8 hr 02/29/20 01:14 Temperature 98 F Pulse Rate 94 H Respiratory Rate 18 Blood Pressure 137/82 Pulse Oximetry 97 MDM - Female Genitourinary Differential Diagnosis Differential diagnosis: Likely urinary tract infection and other (Urinary retention/UTI) Lab Data Attestation: I reviewed the patient's lab results. Labs: Point of Care Testing Test Results Negative Urine Dip Bedside Urine Glucose Negative Bedside Urine Bilirubin - Negative Bedside Urine Ketone - Negative Urine Specific [place] 1.015 Bedside Urine Occult Blood - Negative Bedside Urine pH 6 Bedside Urine Protein - Negative Bedside Urine Urobilinogen - Negative Bedside Urine Nitrite - Negative Bedside Urine Leukocytes - Negative Esterase MDM Narrative Medical decision making narrative: Appropriate for discharge home with leg bag. Patient does have a urologist. Discharge Plan Departure Patient Disposition: Home Clinical Impression: Acute urinary retention Discharge Date/Time: 02/29/20 02:15 Instructions: How to Care for Your Shea Catheter -- Female, DI for Urinary Retention in Women Activity Restrictions/Additional Instructions: Call your urologist in the morning for office recheck this week and when to remove the Shea catheter. Refill for terazosin has been sent to [facility] in [place]. Return if worse or if any questions or concerns. Prescriptions: New terazosin 2 mg capsule 2 mg PO BEDTIME Qty: 14 RF: 0 cephalexin 500 mg capsule 500 mg PO TID Qty: 15 RF: 0 No Action (DME) Diatrue Plus Test Strip strip See Dose Instructions .ROUTE .MEDSUPPLY Qty: 50 RF: 12 (DME) blood-glucose meter [Diatrue Plus Blood Glucose Met] misc See Dose Instructions .ROUTE .MEDSUPPLY Qty: 1 RF: 0 (DME) lancets [Easy Touch Twist Lancets] 33 gauge misc See Dose Instructions .ROUTE .MEDSUPPLY Qty: 100 RF: 3 (DME) TENS units device See Rx Instructions .ROUTE .MEDSUPPLY Qty: 1 RF: 0 ferrous fumarate 325 mg (106 mg iron) tablet 325 mg PO BID RF: 0 terazosin 2 mg capsule 2 mg PO DAILY RF: 0 Mirena 20 mcg/24 hours (5 yrs) 52 mg intrauterine device 1 device intrauterine ONCE Qty: 1 RF: 0 potassium chloride 20 mEq tablet extended release 20 meq PO DAILY RF: 0 (DME) Compressioin Stockings Qty: 1 RF: 0 omeprazole 20 mg capsule,delayed release(DR/EC) 20 mg PO BID Qty: 180 RF: 1 levothyroxine 50 mcg tablet 50 mcg PO BEDTIME Qty: 60 RF: 0 aripiprazole [Abilify] 5 mg tablet 5 mg PO BID Qty: 90 RF: 0 pregabalin 150 mg capsule 150 mg PO BID Qty: 60 RF: 3 varenicline 1 mg tablet 1 mg PO BID Qty: 56 RF: 2 cyclobenzaprine 10 mg tablet 10 mg PO BID Qty: 60 RF: 0 acetaminophen [Tylenol Extra Strength] 500 mg tablet 2,000 mg PO BID RF: 0 fluticasone propion-salmeterol [Advair Diskus] 100-50 mcg/dose blister with device 1 puff INHALATION BID RF: 0 albuterol sulfate 90 mcg/actuation HFA aerosol inhaler 2 puff INHALATION Q4-6H PRN (Reason: shortness of breath or wheezing) Qty: 8.5 RF: 0 furosemide 20 mg Tablet 60 mg PO QPM RF: 0 furosemide 20 mg Tablet 100 mg PO QAM RF: 0 warfarin [Coumadin] 5 mg Tablet 5 mg PO Q OTHER DAY RF: 0 warfarin [Coumadin] 10 mg Tablet 10 mg PO Q OTHER DAY RF: 0 duloxetine 60 mg capsule,delayed release(DR/EC) 90 mg PO DAILY RF: 0 metoprolol tartrate 25 mg tablet 12.5 mg PO BID RF: 0 Zubsolv 5.7-1.4 mg Tablet, Sublingual 1 tab SUBLINGUAL BID RF: 0 ondansetron 4 mg tablet,disintegrating 4 mg PO Q8H PRN (Reason: nausea and vomiting) Qty: 30 RF: 0 magnesium 250 mg Tablet 500 mg PO DAILY RF: 0 Referrals: Jud Ferrari MD [Non-Staff] - Alejandra Lynch MD [Primary Care Provider] -
[2020-02-29] MEDS: TERAZOSIN 1 MG CAPSULE 2 MG PO (01:55)
[2020-02-29] MEDS: cephALEXin 250 MG CAPSULE 500 MG PO (02:04)
== END 2020-02-29 02:15 | disposition home or self-care (01) ==
PROVIDERS: Emergency Provider Emergency Medicine; PCP Family Medicine
DX: R33.8 Other retention of urine (principal)
CPT/HCPCS: 51701; 51798; 81003; 81025; 99283; 99284

== ENCOUNTER 2020-03-01 17:34 | Emergency (ER) | payer OTHER, SELFPAY ==
[2019-12-29 20:08] VITALS: BMI 48.2
[2020-03-01] VITALS (7 sets, daily range): BP systolic 121–159; BP diastolic 78–89; PULSE 92–101; RESP 16; TEMP 36.6; O2SAT 95–97; BMI 45.1
--- NOTE | 2020-03-01 21:34 | DI.US.S_ITS ---
PROCEDURE: US PERIPH VENOUS LOW EXTREM RT INDICATIONS: LEG SWELLING TECHNIQUE: Real-time imaging, as well as color and pulse Doppler interrogation, were performed of the right lower extremity deep veins from the inguinal ligament to the popliteal fossa. COMPARISON: None. FINDINGS: The common femoral, femoral and popliteal veins are normally compressible, and free of intraluminal thrombus. Color and pulse Doppler demonstrate normal phasic intraluminal flow. There is normal augmentation response to distal compression maneuver. Incidental note made of nonspecific left calf soft tissue edema. IMPRESSION: No evidence of deep vein thrombosis involving the right lower extremity. Dictated by: Patricia Blair MD, PhD on 03/02/2020 at 8:37 Approved by: Patricia Blair MD, PhD on 03/02/2020 at 8:38
--- NOTE | 2020-03-01 21:48 | ED_ITS ---
HPI - General Adult General Chief complaint: Urogenital-Female Stated complaint: has urinary cath, lots of blood Time Seen by Provider: 03/01/20 17:36 Source: patient and family Mode of arrival: Ambulatory Limitations: no limitations History of Present Illness HPI narrative: Patient seen by me here yesterday for urinary retention. Patient is on warfarin for DVT and PEs. Here 1 day ago for urinary retention. Leg bag placed. Antibiotics prescribed. Since then has had occasional bloody urine and clots in the bag. Also has noticed increasing swelling in the right leg. This was not the complaint yesterday. Related Data Home Medications Medication Instructions Recorded Confirmed acetaminophen 500 mg tablet 2,000 mg PO BID tab 09/23/18 02/24/20 magnesium 500 mg PO DAILY 06/29/19 02/24/20 potassium chloride 20 mEq 20 meq PO DAILY 07/07/19 02/24/20 tablet,extended release fluticasone propion-salmeterol 1 puff INHALATION BID 07/11/19 02/24/20 [Advair Diskus] furosemide 60 mg PO QPM 12/02/19 02/24/20 furosemide 100 mg PO QAM 12/02/19 02/24/20 warfarin [Coumadin] 5 mg PO Q OTHER DAY 12/02/19 02/24/20 warfarin [Coumadin] 10 mg PO Q OTHER DAY 12/02/19 02/24/20 Zubsolv 1 tab SUBLINGUAL BID 12/29/19 02/24/20 duloxetine 90 mg PO DAILY 12/29/19 02/24/20 metoprolol tartrate 12.5 mg PO BID 12/29/19 02/24/20 ferrous fumarate 325 mg (106 mg 325 mg PO BID 01/04/20 02/24/20 iron) tablet terazosin 2 mg capsule 2 mg PO DAILY 01/04/20 02/24/20 Previous Rx's Medication Instructions Recorded blood sugar diagnostic #50 each 12/08/18 blood-glucose meter #1 each 12/08/18 lancets 33 gauge #100 each 12/08/18 TENS units #1 each 02/09/19 albuterol sulfate 2 puff INHALATION Q4-6H PRN #8.5 07/11/19 gram Compressioin Stockings #1 ea 10/13/19 omeprazole 20 mg capsule,delayed 20 mg PO BID #180 cap 01/02/20 release levothyroxine 50 mcg tablet 50 mcg PO BEDTIME #60 tab 01/10/20 levonorgestrel 20 mcg/24 hours (5 1 device INTRAUTERINE ONCE #1 each 01/18/20 yrs) 52 mg intrauterine device aripiprazole 5 mg tablet 5 mg PO BID #90 tab 02/01/20 pregabalin 150 mg capsule 150 mg PO BID #60 cap 02/01/20 varenicline 1 mg tablet 1 mg PO BID #56 tab 02/08/20 cyclobenzaprine 10 mg tablet 10 mg PO BID #60 tab 02/13/20 ondansetron 4 mg PO Q8H PRN #30 tab 02/24/20 cephalexin 500 mg PO TID #15 cap 02/29/20 terazosin 2 mg PO BEDTIME #14 cap 02/29/20 Allergies Allergy/AdvReac Type Severity Reaction Status Date / Time carisoprodol [CARISOPRODOL] AdvReac Severe urinary Verified 03/01/20 17:47 retention fosphenytoin AdvReac Intermediate ITCHING Verified 03/01/20 17:47 Review of Systems Review of Systems Narrative: GENERAL: Denies chills, fatigue, malaise, fever, sweats. HEENT: Denies sinus pain, ear pain, sore throat, difficulty swallowing, dizziness. RESPIRATORY: Denies dyspnea, cough, wheezing, hemoptysis, sputum. CARDIOVASCULAR: Denies chest pain, palpitations, orthopnea, edema, GASTROINTESTINAL: Denies nausea, vomiting, abdominal pain, diarrhea, constipation, melena. : Denies dysuria, frequency, incontinence, complains hematuria MUSCULOSKELETAL: denies weakness, joint pain, or bony pain complains of leg swelling SKIN: Denies rash, skin lesions NEUROLOGIC: Denies weakness, headache, numbness, change in speech, confusion, seizures, incoordination. PSYCHIATRIC: No concerning psychosocial issues. ROS Unobtainable: All systems reviewed & are unremarkable except as noted in HPI and below Patient History Medical History Acetaminophen overdose of undetermined intent (Resolved 12/2015) Alcoholism (Acute) Asthma (Chronic) Cubital tunnel syndrome (Chronic) Depression (Chronic 02/08/14) DM type 2 (diabetes mellitus, type 2) (Acute) DVT (deep venous thrombosis) (Acute) Essential hypertension (Chronic) Fibromyalgia (Chronic 03/02/15) Intraoperative cardiac arrest during non-cardiac surgery (Resolved 11/2013) 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 (Chronic) Morbid obesity (Chronic) Narcotic habituation, continuous (Acute) Obstipation (Inactive) LYLA (obstructive sleep apnea) (Chronic) Ovarian cyst (Chronic) Plantar fasciitis (Chronic) Psychogenic nonepileptic seizure (Acute) Pulmonary embolism (Acute) Status post laminectomy (Inactive 12/14/15) Suicide attempt (Resolved) Tylenol overdose (Resolved) Urinary retention (Acute) Surgical History History of carpal tunnel repair (Resolved 10/30/14) S/P epidural steroid injection (Resolved 11/2013) Status post dilation and curettage (Resolved 2008) Status post laminectomy (Resolved 09/2016) Family History Grandfather Diabetes mellitus Family/Other Pancreatic cancer Social History household members: spouse Smoking Status: Current every day smoker alcohol intake: current eating out: rarely or never Type(s) of exercise: normal ROM and activity and sedentary lifestyle Smoking Status: Current every day smoker tobacco type: cigarettes alcohol intake frequency: a few times a week Substance Use Type: does not use Exam Narrative Exam Narrative: GENERAL: patient appears stated age. Well-nourished, well- developed patient, in no distress, not toxic HEAD: Atraumatic. Normocephalic. EXTREMITIES: Right leg warm soft and pink. No palpable cords. Nontender calf. Foot warm soft and pink strong pedal pulse. NEURO: AOx4. SKIN: No rash or erythema of visible areas PSYCH: Not anxious, is cooperative Initial Vital Signs Initial Vital Signs: Vital Signs Temperature 97.8 F 03/01/20 17:41 Pulse Rate 94 H 03/01/20 17:41 Respiratory Rate 16 03/01/20 17:41 Blood Pressure 159/89 H 03/01/20 17:41 Pulse Oximetry 97 03/01/20 17:41 Course Orders Ordered: ED Orders 03/01/20 21:00 Urine Culture Stat Urine Microscopic Stat 03/01/20 21:34 US periph venous low extrem rt Stat 03/01/20 22:20 Complete Blood Count AUTO DIFF Stat Comprehensive Metabolic Panel Stat Partial Thromboplastin Time Stat Prothrombin Time INR Stat Vital Signs Vital signs: Vital Signs - 8 hr 03/01/20 17:41 03/01/20 22:23 03/01/20 22:30 Temperature 97.8 F Pulse Rate 94 H 101 H 100 H Respiratory Rate 16 Blood Pressure 159/89 H Pulse Oximetry 97 95 97 03/01/20 23:00 03/01/20 23:19 03/01/20 23:20 Temperature Pulse Rate 96 H 92 H Respiratory Rate Blood Pressure 121/78 121/78 Pulse Oximetry 95 95 03/01/20 23:30 Temperature Pulse Rate 101 H Respiratory Rate Blood Pressure Pulse Oximetry 96 Medical Decision Making Differential Diagnosis Differential Diagnosis: Coumadin toxicity/hematuria/DVT Medical Records Medical records reviewed: Yes I reviewed the patient's medical records. Lab Data Lab results reviewed: Yes I reviewed the patient's lab results. Result diagrams: 03/01/20 22:20 03/01/20 22:20 Labs: Lab Results 03/01/20 03/01/20 03/01/20 Range/Units 21:00 22:20 22:20 WBC 7.7 (4.5-11.0) X10^3/uL RBC 4.21 (4.0-5.2) X10^6/uL Hgb 11.4 L (12.0-16.0) g/dL Hct 35.1 L (36-46) % MCV 83.3 (80-100) fL MCH 27.1 (26-34) PG MCHC 32.5 (30-36) % RDW 22.0 H (11.6-14.8) % Plt Count 194 (150-400) X10^3/uL Neut % (Auto) 69.5 (50-75) % Lymph % (Auto) 20.0 L (25-40) % Williamson % (Auto) 8.4 (3-14) % Eos % (Auto) 1.6 L (2-4) % Baso % (Auto) 0.5 (0-2) % Neut # (Auto) 5300 (5202-3844) /uL Lymph # (Auto) 1500 (0760-5306) /uL Williamson # (Auto) 600 (0-900) /uL Eos # (Auto) 100 (0-450) /uL Baso # (Auto) 0 (0-100) /uL RBC Morphology See below PT 39.1 H D (10.1-12.7) SECONDS INR 3.4 H (0.9-1.3) APTT 58 H D (26.4-36.2) SECONDS Sodium (137-145) mmol/L Potassium (3.4-5.1) mmol/L Chloride (98-107) mmol/L Carbon Dioxide (22-32) mmol/L BUN (7-17) mg/dL Creatinine (0.52-1.04) mg/dL Estimated GFR (>60) mL/min BUN/Creatinine Ratio (6-22) Glucose (70-100) mg/dL Calcium (8.4-10.2) mg/dL Total Bilirubin (0.2-1.3) mg/dL AST (14-36) IU/L ALT (<35) IU/L Alkaline Phosphatase (38-126) U/L Total Protein (6.3-8.2) g/dL Albumin (3.5-5.0) g/dL Globulin (1.7-4.1) g/dL Albumin/Globulin Ratio (1.0-2.8) Urine RBC 1-5/hpf (0-5/HPF) Urine WBC 5-10/hpf H (0-5/HPF) Ur Squamous Epith Cells 0-1 /hpf (0-5/HPF) Ur Transition Epith Cell 0-1/hpf (0-5/HPF) Amorphous Sediment 1+ Urine Bacteria Occasional (0-1) (None) Ur Culture Indicated? Specimen cultured 03/01/20 Range/Units 22:20 WBC (4.5-11.0) X10^3/uL RBC (4.0-5.2) X10^6/uL Hgb (12.0-16.0) g/dL Hct (36-46) % MCV (80-100) fL MCH (26-34) PG MCHC (30-36) % RDW (11.6-14.8) % Plt Count (150-400) X10^3/uL Neut % (Auto) (50-75) % Lymph % (Auto) (25-40) % Williamson % (Auto) (3-14) % Eos % (Auto) (2-4) % Baso % (Auto) (0-2) % Neut # (Auto) (7865-2101) /uL Lymph # (Auto) (6409-0609) /uL Williamson # (Auto) (0-900) /uL Eos # (Auto) (0-450) /uL Baso # (Auto) (0-100) /uL RBC Morphology PT (10.1-12.7) SECONDS INR (0.9-1.3) APTT (26.4-36.2) SECONDS Sodium 138 (137-145) mmol/L Potassium 3.6 (3.4-5.1) mmol/L Chloride 99 (98-107) mmol/L Carbon Dioxide 35 H (22-32) mmol/L BUN 12 (7-17) mg/dL Creatinine 0.53 (0.52-1.04) mg/dL Estimated GFR > 60.0 (>60) mL/min BUN/Creatinine Ratio 22.6 H (6-22) Glucose 100 (70-100) mg/dL Calcium 9.2 (8.4-10.2) mg/dL Total Bilirubin 0.2 (0.2-1.3) mg/dL AST 25 (14-36) IU/L ALT 15 (<35) IU/L Alkaline Phosphatase 75 (38-126) U/L Total Protein 7.1 (6.3-8.2) g/dL Albumin 4.0 (3.5-5.0) g/dL Globulin 3.1 (1.7-4.1) g/dL Albumin/Globulin Ratio 1.3 (1.0-2.8) Urine RBC (0-5/HPF) Urine WBC (0-5/HPF) Ur Squamous Epith Cells (0-5/HPF) Ur Transition Epith Cell (0-5/HPF) Amorphous Sediment Urine Bacteria (None) Ur Culture Indicated? Urine Dip Bedside Urine Glucose Negative Bedside Urine Bilirubin - Negative Bedside Urine Ketone - Negative Urine Specific [place] 1.010 Bedside Urine Occult Blood +/- Bedside Urine pH 7.5 Bedside Urine Protein + 30 Bedside Urine Urobilinogen - Negative Bedside Urine Nitrite - Negative Bedside Urine Leukocytes ++ 125 Esterase Point of care testing: Urine Dip Bedside Urine Glucose Negative Bedside Urine Bilirubin - Negative Bedside Urine Ketone - Negative Urine Specific [place] 1.010 Bedside Urine Occult Blood +/- Bedside Urine pH 7.5 Bedside Urine Protein + 30 Bedside Urine Urobilinogen - Negative Bedside Urine Nitrite - Negative Bedside Urine Leukocytes ++ 125 Esterase Imaging Data US - DVT: Radiologist's Impression: Ultrasound of the right lower extremity no DVT MDM Narrative Medical decision making narrative: Appropriate discharge home. There is no blo od in Shea bag at time of discharge. No clots. Urine is flowing. Insertion of Shea catheter the other night may have irritated the bladder wall causing bleeding. Patient stable at this time. Discharge Plan Departure Patient Disposition: Home Clinical Impression: Hematuria Qualifiers: Hematuria type: unspecified type Qualified Code(s): R31.9 - Hematuria, unspecified Discharge Date/Time: 03/01/20 23:54 Instructions: DI for Hematuria Activity Restrictions/Additional Instructions: Continue medications prescribed from the other night. Call urologist as instructed from the other night. Return if worse or any questions concerns. Return if continued bleeding/blood clots in the Shea catheter Prescriptions: No Action (DME) Diatrue Plus Test Strip strip See Dose Instructions .ROUTE .MEDSUPPLY Qty: 50 RF: 12 (DME) blood-glucose meter [Diatrue Plus Blood Glucose Met] misc See Dose Instructions .ROUTE .MEDSUPPLY Qty: 1 RF: 0 (DME) lancets [Easy Touch Twist Lancets] 33 gauge misc See Dose Instructions .ROUTE .MEDSUPPLY Qty: 100 RF: 3 (DME) TENS units device See Rx Instructions .ROUTE .MEDSUPPLY Qty: 1 RF: 0 ferrous fumarate 325 mg (106 mg iron) tablet 325 mg PO BID RF: 0 terazosin 2 mg capsule 2 mg PO DAILY RF: 0 Mirena 20 mcg/24 hours (5 yrs) 52 mg intrauterine device 1 device intrauterine ONCE Qty: 1 RF: 0 potassium chloride 20 mEq tablet extended release 20 meq PO DAILY RF: 0 (DME) Compressioin Stockings Qty: 1 RF: 0 omeprazole 20 mg capsule,delayed release(DR/EC) 20 mg PO BID Qty: 180 RF: 1 levothyroxine 50 mcg tablet 50 mcg PO BEDTIME Qty: 60 RF: 0 aripiprazole [Abilify] 5 mg tablet 5 mg PO BID Qty: 90 RF: 0 pregabalin 150 mg capsule 150 mg PO BID Qty: 60 RF: 3 varenicline 1 mg tablet 1 mg PO BID Qty: 56 RF: 2 cyclobenzaprine 10 mg tablet 10 mg PO BID Qty: 60 RF: 0 acetaminophen [Tylenol Extra Strength] 500 mg tablet 2,000 mg PO BID RF: 0 fluticasone propion-salmeterol [Advair Diskus] 100-50 mcg/dose blister with device 1 puff INHALATION BID RF: 0 albuterol sulfate 90 mcg/actuation HFA aerosol inhaler 2 puff INHALATION Q4-6H PRN (Reason: shortness of breath or wheezing) Qty: 8.5 RF: 0 furosemide 20 mg Tablet 60 mg PO QPM RF: 0 furosemide 20 mg Tablet 100 mg PO QAM RF: 0 warfarin [Coumadin] 5 mg Tablet 5 mg PO Q OTHER DAY RF: 0 warfarin [Coumadin] 10 mg Tablet 10 mg PO Q OTHER DAY RF: 0 duloxetine 60 mg capsule,delayed release(DR/EC) 90 mg PO DAILY RF: 0 metoprolol tartrate 25 mg tablet 12.5 mg PO BID RF: 0 Zubsolv 5.7-1.4 mg Tablet, Sublingual 1 tab SUBLINGUAL BID RF: 0 ondansetron 4 mg tablet,disintegrating 4 mg PO Q8H PRN (Reason: nausea and vomiting) Qty: 30 RF: 0 magnesium 250 mg Tablet 500 mg PO DAILY RF: 0 terazosin 2 mg capsule 2 mg PO BEDTIME Qty: 14 RF: 0 cephalexin 500 mg capsule 500 mg PO TID Qty: 15 RF: 0 Referrals: Alejandra Lynch MD [Primary Care Provider] -
[2020-03-01 21:55] LABS: Amorphous Sediment Urine 1+; Bacteria Urine Occasional (0-1); Culture Indicated Urine Specimen Cultured; RBC Urine 1-5/HPF (0-5/HPF); Squamous Epithelial Cell Urine 0-1 /HPF (0-5/HPF); Transitional Epi Cells Urine 0-1/HPF (0-5/HPF); WBC Urine 5-10/HPF (0-5/HPF)
[2020-03-01 22:28] LABS: Add Manual Diff / Slide Review NO; Basophils Absolute Auto 0 /uL (0-100); Basophils Percent Auto 0.5 % (0-2); Eosinophils Absolute Auto 100 /uL (0-450); Eosinophils Percent Auto 1.6 % (2-4); Hematocrit 35.1 % (36-46); Hemoglobin 11.4 g/dL (12.0-16.0); Lymphocytes Absolute Auto 1500 /uL (1100-4500); Mean Corpuscular HGB Conc 32.5 % (30-36); Mean Corpuscular Hemoglobin 27.1 PG (26-34); Mean Corpuscular Volume 83.3 fL (80-100); Monocytes Absolute Auto 600 /uL (0-900); Monocytes Percent Auto 8.4 % (3-14); Neutrophils Absolute Auto 5300 /uL (1500-7000); Neutrophils Percent Auto 69.5 % (50-75); Platelet Count 194 X10^3/uL (150-400); Red Blood Cell Count 4.21 X10^6/uL (4.0-5.2); White Blood Cell Count 7.7 X10^3/uL (4.5-11.0)
[2020-03-01 22:34] LABS: INR 3.4 (0.9-1.3); Prothrombin Time 39.1 SECONDS (10.1-12.7)
[2020-03-01 22:37] LABS: PTT Partial Thromboplastin Tim 58 SECONDS (26.4-36.2)
[2020-03-01 22:42] LABS: Alanine Aminotransferase 15 IU/L (<35); Albumin Globulin Ratio 1.3 (1.0-2.8); Alkaline Phosphatase 75 U/L (38-126); Aspartate Aminotransferase 25 IU/L (14-36); BUN Creatinine Ratio 22.6 (6-22); Bilirubin Total 0.2 mg/dL (0.2-1.3); Blood Urea Nitrogen 12 mg/dL (7-17); Calcium 9.2 mg/dL (8.4-10.2); Carbon Dioxide 35 mmol/L (22-32); Chloride 99 mmol/L (98-107); Estimated Glomerular Filt Rate > 60.0 mL/min (>60); Globulin 3.1 g/dL (1.7-4.1); Glucose 100 mg/dL (70-100); HEMOLYSIS < 15 (0-50); Potassium 3.6 mmol/L (3.4-5.1); Sodium 138 mmol/L (137-145); Total Protein 7.1 g/dL (6.3-8.2)
== END 2020-03-01 23:54 | disposition home or self-care (01) ==
PROVIDERS: Emergency Provider Emergency Medicine; PCP Family Medicine
DX: R31.9 Hematuria, unspecified (principal); Z79.01 Long term (current) use of anticoagulants
CPT/HCPCS: 80053; 81003; 81015; 85025; 85610; 85730; 87086; 93971; 99283; 99284

== ENCOUNTER → 2020-03-06 12:02 | Outpatient (CLI) | payer OTHER, SELFPAY ==
[2019-12-29 20:08] VITALS: BMI 48.2
[2020-03-06 13:11] LABS: Add Manual Diff / Slide Review NO; Basophils Absolute Auto 0 /uL (0-100); Basophils Percent Auto 0.2 % (0-2); Eosinophils Absolute Auto 100 /uL (0-450); Eosinophils Percent Auto 1.4 % (2-4); Hematocrit 36.3 % (36-46); Hemoglobin 11.9 g/dL (12.0-16.0); Lymphocytes Absolute Auto 900 /uL (1100-4500); Lymphocytes Percent Auto 11.7 % (25-40); Mean Corpuscular HGB Conc 32.7 % (30-36); Mean Corpuscular Hemoglobin 27.5 PG (26-34); Mean Corpuscular Volume 84.1 fL (80-100); Monocytes Absolute Auto 500 /uL (0-900); Monocytes Percent Auto 6.8 % (3-14); Neutrophils Absolute Auto 5900 /uL (1500-7000); Neutrophils Percent Auto 79.9 % (50-75); Platelet Count 208 X10^3/uL (150-400); Red Blood Cell Count 4.32 X10^6/uL (4.0-5.2); Red Cell Distribution Width 22.2 % (11.6-14.8); White Blood Cell Count 7.4 X10^3/uL (4.5-11.0)
[2020-03-06 13:35] LABS: Anisocytosis 2+; Polychromasia 1+
[2020-03-06 13:36] LABS: Hypochromasia 1+; Poikilocytosis 2+
[2020-03-06 13:41] LABS: Platelet Estimate Adequate on smear
== END ==
PROVIDERS: PCP Family Medicine; Referring Provider Family Medicine; Visit Provider Family Medicine
DX: D64.9 Anemia, unspecified (principal)
CPT/HCPCS: 36415; 85025

== ENCOUNTER → 2020-03-07 12:46 | Outpatient (CLI) | payer OTHER, SELFPAY ==
[2019-12-29 20:08] VITALS: BMI 48.2
[2020-03-07 13:35] VITALS: BMI 48.5
--- NOTE | 2020-03-07 13:48 | DIET.PN ---
DIABETES Nutrition Initial Assessment:? ASSESS:??? Mrs Alvarado was referred for type 2 diabetes seen as part of DSME program. She has had several complications recently related urinary retention with shelton catheter, fluid retention, weight gain, and inability to engage in regular exercise. She had discontinued smoking prior to our last visit but admits she has gone back to smoking because of stress and boredom. She continues to endorse following a restricted ?modified? keto diet. Dietary recall includes apple/grape juice, spirits, pizza, dining out, and a weekly dessert coffee. ? LABS: Per pt report:? A1c: 6.5 (follow up in 1 mo) ? MEDS:?? warfarin; Lasix ? Weight: 291 in Ht:? 65in ? Exercise:? unable to exercise at this time. NUTRITION DX 1. Altered Nutrition related labs related to impaired glucose metabolism, lack of previous exposure to accurate nutrition information as evidenced by pt report, dx of diabetes, previous diet high in refined carbohydrates.? INTERVENTION(s): 1. Reviewed the effect of carbohydrates/protein/fat on blood sugar control.? Stressed importance of consistent carbohydrate intake at each meal and provided instructions for recommended servings/portions of carbohydrates/protein per meal. Provided pt with educational material. 2. Reviewed carbohydrate counting and measuring carbohydrate content via serving sizes and reading nutrition labels.? Provided handouts.?? 3. Stressed importance of meal timing and not going >4-5 hours between meals. Encouraged adding protein to evening snack to support glucose control overnight. Patient agreeable. 4. Provided extensive list of vitamin K foods to avoid, limit and consume in consistent amounts. 5. Discussed healthy weight loss goals of 1-2lbs per week through diet and exercise.? Pt agreeable to walking or riding her stationary bike at least 30 minutes daily. MONITOR/EVALUATE: F/U scheduled after new labs.
== END ==
PROVIDERS: PCP Family Medicine; Referring Provider Family Medicine; Visit Provider Family Medicine
DX: E11.9 Type 2 diabetes mellitus without complications (principal); R33.9 Retention of urine, unspecified; E66.9 Obesity, unspecified; Z68.42 Body mass index [BMI] 45.0-49.9, adult; Z79.84 Long term (current) use of oral hypoglycemic drugs; Z71.3 Dietary counseling and surveillance
CPT/HCPCS: G0109

== ENCOUNTER → 2020-03-20 14:15 | Outpatient (CLI) | payer OTHER, SELFPAY ==
[2019-12-29 20:08] VITALS: BMI 48.2
[2020-03-20 17:53] LABS: Add Manual Diff / Slide Review NO; Basophils Absolute Auto 0 /uL (0-100); Basophils Percent Auto 0.5 % (0-2); Eosinophils Absolute Auto 100 /uL (0-450); Eosinophils Percent Auto 1.5 % (2-4); Hematocrit 40.3 % (36-46); Hemoglobin 13.2 g/dL (12.0-16.0); Lymphocytes Absolute Auto 1200 /uL (1100-4500); Lymphocytes Percent Auto 21.9 % (25-40); Mean Corpuscular HGB Conc 32.6 % (30-36); Mean Corpuscular Hemoglobin 28.1 PG (26-34); Mean Corpuscular Volume 86.1 fL (80-100); Monocytes Absolute Auto 500 /uL (0-900); Monocytes Percent Auto 9.5 % (3-14); Neutrophils Absolute Auto 3600 /uL (1500-7000); Neutrophils Percent Auto 66.6 % (50-75); Platelet Count 243 X10^3/uL (150-400); Red Blood Cell Count 4.69 X10^6/uL (4.0-5.2); Red Cell Distribution Width 18.5 % (11.6-14.8); White Blood Cell Count 5.5 X10^3/uL (4.5-11.0)
== END ==
PROVIDERS: PCP Family Medicine; Referring Provider Family Medicine; Visit Provider Family Medicine
DX: D64.9 Anemia, unspecified (principal)
CPT/HCPCS: 36415; 85025

== ENCOUNTER → 2020-04-10 14:47 | Outpatient (CLI) | payer OTHER, SELFPAY ==
[2019-12-29 20:08] VITALS: BMI 48.2
[2020-04-10 15:58] LABS: INR 1.9 (0.9-1.3)
[2020-04-10 16:01] LABS: PTT Partial Thromboplastin Tim 43 SECONDS (26.4-36.2)
[2020-04-10 16:02] LABS: Add Manual Diff / Slide Review NO; Basophils Absolute Auto 0 /uL (0-100); Basophils Percent Auto 0.5 % (0-2); Eosinophils Absolute Auto 100 /uL (0-450); Eosinophils Percent Auto 1.7 % (2-4); Hematocrit 39.8 % (36-46); Hemoglobin 13.2 g/dL (12.0-16.0); Lymphocytes Absolute Auto 1400 /uL (1100-4500); Lymphocytes Percent Auto 26.9 % (25-40); Mean Corpuscular HGB Conc 33.1 % (30-36); Mean Corpuscular Hemoglobin 28.9 PG (26-34); Mean Corpuscular Volume 87.3 fL (80-100); Monocytes Absolute Auto 500 /uL (0-900); Neutrophils Absolute Auto 3200 /uL (1500-7000); Neutrophils Percent Auto 61.9 % (50-75); Platelet Count 210 X10^3/uL (150-400); Red Blood Cell Count 4.57 X10^6/uL (4.0-5.2); Red Cell Distribution Width 13.8 % (11.6-14.8); White Blood Cell Count 5.2 X10^3/uL (4.5-11.0)
[2020-04-10 16:06] LABS: Alanine Aminotransferase 17 IU/L (<35); Albumin 4.5 g/dL (3.5-5.0); Albumin Globulin Ratio 1.3 (1.0-2.8); Alkaline Phosphatase 86 U/L (38-126); Aspartate Aminotransferase 27 IU/L (14-36); Bilirubin Total 0.3 mg/dL (0.2-1.3); Blood Urea Nitrogen 12 mg/dL (7-17); Calcium 9.2 mg/dL (8.4-10.2); Carbon Dioxide 33 mmol/L (22-32); Chloride 99 mmol/L (98-107); Estimated Glomerular Filt Rate > 60.0 mL/min (>60); Globulin 3.6 g/dL (1.7-4.1); Glucose 111 mg/dL (70-100); HEMOLYSIS < 15 (0-50); Potassium 3.9 mmol/L (3.4-5.1); Sodium 137 mmol/L (137-145); Total Protein 8.1 g/dL (6.3-8.2)
== END ==
PROVIDERS: PCP Family Medicine; Referring Provider Family Medicine; Visit Provider Family Medicine
DX: Z01.818 Encounter for other preprocedural examination (principal); I10 Essential (primary) hypertension; I26.99 Other pulmonary embolism without acute cor pulmonale; R73.9 Hyperglycemia, unspecified
CPT/HCPCS: 36415; 80053; 83036; 85025; 85610; 85730

== ENCOUNTER 2020-04-26 17:00 | Emergency (ER) | payer OTHER, SELFPAY ==
[2020-04-18 10:42] VITALS: BMI 48.2
[2020-04-26 17:01] VITALS: BP 189/101; PULSE 97; RESP 15; TEMP 36.7; O2SAT 99; BMI 45.6
--- NOTE | 2020-04-26 17:18 | CM.MNRNOTE ---
PIV attempt x3 unsuccessful
--- NOTE | 2020-04-26 17:29 | PC.NURSE ---
Attempted to call , no answer on cell phone
--- NOTE | 2020-04-26 18:16 | ED_ITS ---
HPI - General Adult General Chief complaint: Weakness Stated complaint: tired Time Seen by Provider: 04/26/20 18:04 Source: patient and EMS Mode of arrival: EMS Limitations: no limitations History of Present Illness HPI narrative: 39-year-old female was brought in by EMS after her boyfriend had a hard time waking her up this afternoon. The patient states that she feels tired. She really has no other complaints for this. She states that she is a little unsure as to why she was here other than she was told that her boyfriend had a hard time waking her up. She states that last night she did not sleep very well. She does have a history of sleep apnea. She does not use a CPAP because she got a ?staph infection? from it. She has a another appointment with sleep medicine next week for further evaluation. She does wear oxygen at night. She did state that she had ?1 drink ?of alcohol today. There was no reported seizure-like activity. Related Data Home Medications Medication Instructions Recorded Confirmed acetaminophen 500 mg tablet 2,000 mg PO BID tab 09/23/18 04/17/20 magnesium 500 mg PO DAILY 06/29/19 04/17/20 potassium chloride 20 mEq 20 meq PO DAILY 07/07/19 04/17/20 tablet,extended release fluticasone propion-salmeterol 1 puff INHALATION BID 07/11/19 04/17/20 [Advair Diskus] warfarin [Coumadin] 5 mg PO Q OTHER DAY 12/02/19 04/17/20 warfarin [Coumadin] 10 mg PO Q OTHER DAY 12/02/19 04/17/20 Zubsolv 1 tab SUBLINGUAL BID 12/29/19 04/17/20 duloxetine 90 mg PO DAILY 12/29/19 04/17/20 metoprolol tartrate 12.5 mg PO BID 12/29/19 04/17/20 ferrous fumarate 325 mg (106 mg 325 mg PO BID 01/04/20 04/17/20 iron) tablet amitriptyline 10 mg tablet 5 mg PO DAILY tab 04/04/20 04/17/20 Previous Rx's Medication Instructions Recorded blood sugar diagnostic #50 each 12/08/18 blood-glucose meter #1 each 12/08/18 lancets 33 gauge #100 each 12/08/18 TENS units #1 each 02/09/19 albuterol sulfate 2 puff INHALATION Q4-6H PRN #8.5 07/11/19 gram Compressioin Stockings #1 ea 10/13/19 omeprazole 20 mg capsule,delayed 20 mg PO BID #180 cap 01/02/20 release levonorgestrel 20 mcg/24 hours (6 1 device INTRAUTERINE ONCE #1 each 01/18/20 yrs) 52 mg intrauterine device pregabalin 150 mg capsule 150 mg PO BID #60 cap 02/01/20 ondansetron 4 mg PO Q8H PRN #30 tab 02/24/20 terazosin 2 mg PO BEDTIME #14 cap 02/29/20 levothyroxine 50 mcg tablet 50 mcg PO BEDTIME #60 tab 03/12/20 aripiprazole 5 mg tablet 5 mg PO BID #180 tab 03/16/20 cyclobenzaprine 10 mg tablet 10 mg PO BID #60 tab 04/18/20 furosemide 20 mg tablet 60 mg PO QPM #90 tab 04/18/20 furosemide 40 mg tablet 100 mg PO DAILY #90 tab 04/18/20 Allergies Allergy/AdvReac Type Severity Reaction Status Date / Time carisoprodol [CARISOPRODOL] AdvReac Severe urinary Verified 04/26/20 17:01 retention fosphenytoin AdvReac Intermediate ITCHING Verified 04/26/20 17:01 Review of Systems Constitutional Constitutional: Denies body ache(s), Reports fatigue, Denies fever(s), Denies frequent falls, Denies headache(s), Reports lethargy and Reports malaise Eyes Eyes: Denies change in vision ENT Ears, Nose, Mouth, and Throat: Reports dizziness and Denies headache(s) Cardiovascular Cardiovascular: Denies chest pain and Denies dyspnea Respiratory Respiratory: Denies dyspnea Gastrointestinal Gastrointestinal: Denies abdominal pain, Denies nausea and Denies vomiting Musculoskeletal Musculoskeletal: Denies arthralgias and Denies myalgias Integumentary/Breasts Skin/Breast: Denies rash Neurologic Neurologic: Reports dizziness, Denies frequent falls and Denies headache(s) Endocrine Endocrine: Reports fatigue Hematologic/Lymphatic Hematologic/Lymphatic: Denies easy bleeding and Denies easy bruising Allergic/Immunologic Allergic/Immunologic: Denies urticaria Patient History Medical History Acetaminophen overdose of undetermined intent (12/2015) Alcoholism Asthma Cubital tunnel syndrome Depression (02/08/14) DM type 2 (diabetes mellitus, type 2) DVT (deep venous thrombosis) Essential hypertension Fibromyalgia (03/02/15) Intraoperative cardiac arrest during non-cardiac surgery (11/2013) 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 Morbid obesity Narcotic habituation, continuous Obstipation LYLA (obstructive sleep apnea) Ovarian cyst Plantar fasciitis Psychogenic nonepileptic seizure Pulmonary embolism Status post laminectomy (12/14/15) Suicide attempt Tobacco abuse Tylenol overdose Urinary retention Surgical History History of carpal tunnel repair (10/30/14) S/P epidural steroid injection (11/2013) Status post dilation and curettage (2008) Status post laminectomy (09/2016) Family History Grandfather Diabetes mellitus Family/Other Pancreatic cancer Social History household members: spouse Smoking Status: Current some day smoker alcohol intake: current eating out: 1-3 times/week Type(s) of exercise: normal ROM and activity and sedentary lifestyle Smoking Status: Current some day smoker tobacco type: cigarettes alcohol intake frequency: a few times a week Substance Use Type: does not use Exam Initial Vital Signs Initial Vital Signs: Vital Signs Temperature 98.0 F 04/26/20 17:01 Pulse Rate 97 H 04/26/20 17:01 Respiratory Rate 15 04/26/20 17:01 Blood Pressure 189/101 H 04/26/20 17:01 Pulse Oximetry 99 04/26/20 17:01 Const General: cooperative and comfortable Limitations: mental status not altered [facility] Head: normal to inspection and normocephalic Resp Effort & Inspection: normal respiratory effort Auscultation: clear to auscultation bilaterally Cardio Rate: regular rate Rhythm: regular rhythm GI Inspection: non-distended Palpation: soft Skin Lesions: no lesions Rashes: no rashes Neuro General: patient alert, patient awake and patient oriented x3 Cognition: normal cognition Speech: speech normal Sensory Exam: no sensory deficits noted Extrem General: normal to inspection and capillary refill normal Psych Appearance: grossly normal and well kempt Scores GCS [place] coma scale eye opening: Spontaneous [place] coma scale verbal response: Orientated Mario coma scale motor response: Obey commands [place] coma scale total score: 15 Course Orders Ordered: ED Orders 04/26/20 18:32 Basic Metabolic Panel Stat Complete Blood Count AUTO DIFF Stat Ethanol (ETOH) Stat Test Serum,Qual Stat Prothrombin Time INR Stat Thyroid Stimulating Hormone Stat Vital Signs Vital signs: Vital Signs - 8 hr 04/26/20 17:01 04/26/20 18:30 Temperature 98.0 F Pulse Rate 97 H 84 Respiratory Rate 15 16 Blood Pressure 189/101 H 156/91 H Pulse Oximetry 99 95 Medical Decision Making Lab Data Lab results reviewed: Yes I reviewed the patient's lab results. Result diagrams: 04/26/20 18:32 04/26/20 18:32 Labs: Lab Results 04/26/20 04/26/20 04/26/20 Range/Units 18:32 18:32 18:32 WBC 6.7 (4.5-11.0) X10^3/uL RBC 4.58 (4.0-5.2) X10^6/uL Hgb 13.1 (12.0-16.0) g/dL Hct 40.3 (36-46) % MCV 88.0 (80-100) fL MCH 28.6 (26-34) PG MCHC 32.5 (30-36) % RDW 13.5 (11.6-14.8) % Plt Count 200 (150-400) X10^3/uL Neut % (Auto) 68.8 (50-75) % Lymph % (Auto) 21.1 L (25-40) % [place] % (Auto) 8.9 (3-14) % Eos % (Auto) 0.8 L (2-4) % Baso % (Auto) 0.4 (0-2) % Neut # (Auto) 4600 (6505-7497) /uL Lymph # (Auto) 1400 (3443-4256) /uL [place] # (Auto) 600 (0-900) /uL Eos # (Auto) 100 (0-450) /uL Baso # (Auto) 0 (0-100) /uL PT 16.4 H (10.1-12.7) SECONDS INR 1.4 H (0.9-1.3) Sodium 138 (137-145) mmol/L Potassium 3.7 (3.4-5.1) mmol/L Chloride 99 (98-107) mmol/L Carbon Dioxide 35 H (22-32) mmol/L BUN 13 (7-17) mg/dL Creatinine 0.57 (0.52-1.04) mg/dL Estimated GFR > 60.0 (>60) mL/min BUN/Creatinine Ratio 22.8 H (6-22) Glucose 122 H (70-100) mg/dL Calcium 9.5 (8.4-10.2) mg/dL TSH (0.47-4.68) uIU/mL Serum , Qual (Negative) Ethyl Alcohol < 10 ( - 10) mg/dL 04/26/20 04/26/20 Range/Units 18:32 18:32 WBC (4.5-11.0) X10^3/uL RBC (4.0-5.2) X10^6/uL Hgb (12.0-16.0) g/dL Hct (36-46) % MCV (80-100) fL MCH (26-34) PG MCHC (30-36) % RDW (11.6-14.8) % Plt Count (150-400) X10^3/uL Neut % (Auto) (50-75) % Lymph % (Auto) (25-40) % [place] % (Auto) (3-14) % Eos % (Auto) (2-4) % Baso % (Auto) (0-2) % Neut # (Auto) (1262-8075) /uL Lymph # (Auto) (4800-3102) /uL [place] # (Auto) (0-900) /uL Eos # (Auto) (0-450) /uL Baso # (Auto) (0-100) /uL PT (10.1-12.7) SECONDS INR (0.9-1.3) Sodium (137-145) mmol/L Potassium (3.4-5.1) mmol/L Chloride (98-107) mmol/L Carbon Dioxide (22-32) mmol/L BUN (7-17) mg/dL Creatinine (0.52-1.04) mg/dL Estimated GFR (>60) mL/min BUN/Creatinine Ratio (6-22) Glucose (70-100) mg/dL Calcium (8.4-10.2) mg/dL TSH 2.90 (0.47-4.68) uIU/mL Serum , Qual Negative (Negative) Ethyl Alcohol ( - 10) mg/dL MDM Narrative Medical decision making narrative: Patient has a normal exam. Is alert oriented x3. Has a GCS of 15. Labs are unremarkable. Low suspicion for CVA. Low suspicion for TIA. Low suspicion for seizure. Her alcohol level was 0. She did state she drank alcohol earlier today. I do suspect that a lot of her fatigue is her sleep cycle. I did discuss this with her. Have her contact her primary provider for follow-up. She was given return precautions. Discharge Plan Departure Patient Disposition: Home Clinical Impression: Fatigue Instructions: Creating a Healthy Sleep Routine, DI for Fatigue Activity Restrictions/Additional Instructions: Continue all of your medications as directed. I do recommend that you have stain from alcohol as that can cause issues with both your sleep and fatigue. Contact your primary doctor's office for follow-up. Prescriptions: No Action (DME) Diatrue Plus Test Strip strip See Dose Instructions .ROUTE .MEDSUPPLY Qty: 50 RF: 12 (DME) blood-glucose meter [Diatrue Plus Blood Glucose Met] misc See Dose Instructions .ROUTE .MEDSUPPLY Qty: 1 RF: 0 (DME) lancets [Easy Touch Twist Lancets] 33 gauge misc See Dose Instructions .ROUTE .MEDSUPPLY Qty: 100 RF: 3 (DME) TENS units device See Rx Instructions .ROUTE .MEDSUPPLY Qty: 1 RF: 0 ferrous fumarate 325 mg (106 mg iron) tablet 325 mg PO BID RF: 0 Mirena 20 mcg/24 hours (5 yrs) 52 mg intrauterine device 1 device intrauterine ONCE Qty: 1 RF: 0 potassium chloride 20 mEq tablet extended release 20 meq PO DAILY RF: 0 (DME) Compressioin Stockings Qty: 1 RF: 0 omeprazole 20 mg capsule,delayed release(DR/EC) 20 mg PO BID Qty: 180 RF: 1 pregabalin 150 mg capsule 150 mg PO BID Qty: 60 RF: 3 levothyroxine 50 mcg tablet 50 mcg PO BEDTIME Qty: 60 RF: 0 aripiprazole [Abilify] 5 mg tablet 5 mg PO BID Qty: 180 RF: 0 furosemide 20 mg tablet 60 mg PO QPM Qty: 90 RF: 0 furosemide 40 mg tablet 100 mg PO DAILY Qty: 90 RF: 0 cyclobenzaprine 10 mg tablet 10 mg PO BID Qty: 60 RF: 0 acetaminophen [Tylenol Extra Strength] 500 mg tablet 2,000 mg PO BID RF: 0 fluticasone propion-salmeterol [Advair Diskus] 100-50 mcg/dose blister with device 1 puff INHALATION BID RF: 0 albuterol sulfate 90 mcg/actuation HFA aerosol inhaler 2 puff INHALATION Q4-6H PRN (Reason: shortness of breath or wheezing) Qty: 8.5 RF: 0 warfarin [Coumadin] 5 mg Tablet 5 mg PO Q OTHER DAY RF: 0 warfarin [Coumadin] 10 mg Tablet 10 mg PO Q OTHER DAY RF: 0 duloxetine 60 mg capsule,delayed release(DR/EC) 90 mg PO DAILY RF: 0 metoprolol tartrate 25 mg tablet 12.5 mg PO BID RF: 0 Zubsolv 5.7-1.4 mg Tablet, Sublingual 1 tab SUBLINGUAL BID RF: 0 ondansetron 4 mg tablet,disintegrating 4 mg PO Q8H PRN (Reason: nausea and vomiting) Qty: 30 RF: 0 magnesium 250 mg Tablet 500 mg PO DAILY RF: 0 terazosin 2 mg capsule 2 mg PO BEDTIME Qty: 14 RF: 0 amitriptyline 10 mg tablet 5 mg PO DAILY RF: 0 Referrals: Alejandra Lynch MD [Primary Care Provider] -
[2020-04-26 18:30] VITALS: BP 156/91; PULSE 84; RESP 16; O2SAT 95
[2020-04-26 18:40] LABS: Add Manual Diff / Slide Review NO; Basophils Absolute Auto 0 /uL (0-100); Basophils Percent Auto 0.4 % (0-2); Eosinophils Absolute Auto 100 /uL (0-450); Eosinophils Percent Auto 0.8 % (2-4); Hematocrit 40.3 % (36-46); Hemoglobin 13.1 g/dL (12.0-16.0); Lymphocytes Absolute Auto 1400 /uL (1100-4500); Lymphocytes Percent Auto 21.1 % (25-40); Mean Corpuscular HGB Conc 32.5 % (30-36); Mean Corpuscular Hemoglobin 28.6 PG (26-34); Monocytes Absolute Auto 600 /uL (0-900); Monocytes Percent Auto 8.9 % (3-14); Neutrophils Absolute Auto 4600 /uL (1500-7000); Neutrophils Percent Auto 68.8 % (50-75); Platelet Count 200 X10^3/uL (150-400); Red Blood Cell Count 4.58 X10^6/uL (4.0-5.2); Red Cell Distribution Width 13.5 % (11.6-14.8); White Blood Cell Count 6.7 X10^3/uL (4.5-11.0)
[2020-04-26 18:47] LABS: INR 1.4 (0.9-1.3); Prothrombin Time 16.4 SECONDS (10.1-12.7)
[2020-04-26 18:53] LABS: BUN Creatinine Ratio 22.8 (6-22); Blood Urea Nitrogen 13 mg/dL (7-17); Calcium 9.5 mg/dL (8.4-10.2); Carbon Dioxide 35 mmol/L (22-32); Chloride 99 mmol/L (98-107); Estimated Glomerular Filt Rate > 60.0 mL/min (>60); Ethanol (ETOH) < 10 mg/dL; Glucose 122 mg/dL (70-100); HEMOLYSIS < 15 (0-50); Potassium 3.7 mmol/L (3.4-5.1); Sodium 138 mmol/L (137-145)
--- NOTE | 2020-04-26 18:58 | PC.NURSE ---
Pt tolerating PO fluids. Pt's called and was updated on pt's condition. will be coming to take pt home when discharged.
[2020-04-26 19:01] LABS: Pregnancy Test Serum,Qual Negative (Negative)
[2020-04-26 20:11] VITALS: BP 132/77; PULSE 90; RESP 16; O2SAT 96
== END 2020-04-26 20:12 | disposition home or self-care (01) ==
PROVIDERS: Emergency Provider Emergency Medicine; PCP Family Medicine
DX: R53.83 Other fatigue (principal); R42 Dizziness and giddiness; Z79.01 Long term (current) use of anticoagulants; G47.30 Sleep apnea, unspecified
CPT/HCPCS: 36415; 80048; 80320; 84443; 84703; 85025; 85610; 99281; 99283

== ENCOUNTER → 2020-05-07 12:56 | Outpatient (CLI) | payer OTHER, SELFPAY ==
[2020-04-18 10:42] VITALS: BMI 48.2
--- NOTE | 2020-05-07 12:57 | DI.CT.S_ITS ---
PROCEDURE: CT HEAD/BRAIN WO CON INDICATIONS: headaches, loss of consiousness TECHNIQUE: Noncontrast 4.5 mm thick angled axial sections acquired from the foramen magnum to the vertex, with coronal and sagittal reformats. For radiation dose reduction, the following was used: automated exposure control, adjustment of mA and/or kV according to patient size. COMPARISON: None. FINDINGS: Image quality: Excellent. CSF spaces: Basal cisterns are patent. No extra-axial fluid collections. Ventricles are normal in size and shape. Brain: No midline shift. No intracranial masses or hemorrhage. [place]-white matter interface is normal. Skull and face: Calvarium and visualized facial bones are intact, without suspicious lesions. Sinuses: Visualized sinuses and mastoids are clear. IMPRESSION: No acute finding. Dictated by: Reg Lopez M.D. on 05/07/2020 at 12:39 Approved by: Reg Lopez M.D. on 05/07/2020 at 12:40
== END ==
PROVIDERS: PCP Family Medicine; Referring Provider Family Medicine; Visit Provider Family Medicine
DX: R51.9 Headache, unspecified (principal); R55 Syncope and collapse; G89.29 Other chronic pain
CPT/HCPCS: 70450

== ENCOUNTER → 2020-05-07 14:28 | Outpatient (CLI) | payer OTHER, SELFPAY ==
[2020-04-18 10:42] VITALS: BMI 48.2
[2020-05-07 15:44] LABS: COVID19 -Nasal RAPID Negative (Negative)
== END ==
PROVIDERS: PCP Family Medicine; Visit Provider Family Medicine Sleep Medicine
DX: Z01.812 Encounter for preprocedural laboratory examination (principal); Z20.828 Contact with and (suspected) exposure to other viral communicable diseases
CPT/HCPCS: 87635; C9803

== ENCOUNTER → 2020-05-14 10:17 | Outpatient (CLI) | payer OTHER, SELFPAY ==
[2020-04-18 10:42] VITALS: BMI 48.2
[2020-05-14 15:30] LABS: COVID19 -Nasal RAPID Negative (Negative)
== END ==
PROVIDERS: PCP Family Medicine; Visit Provider Nurse Practitioner
DX: Z20.828 Contact with and (suspected) exposure to other viral communicable diseases (principal)
CPT/HCPCS: 87635

== ENCOUNTER 2020-05-16 06:05 | Day surgery (SDC) | payer OTHER, SELFPAY ==
[2020-04-18 10:42] VITALS: BMI 48.2
[2020-05-09 12:32] VITALS: BMI 45.6
[2020-05-16] VITALS (11 sets, daily range): BP systolic 128–147; BP diastolic 84–97; PULSE 94–110; RESP 12–18; TEMP 36.3–37.3; O2SAT 95–98; BMI 45.1
[2020-05-16] MEDS: LACTATED RINGERS 1,000 ML 100 ML IV (07:32)
--- NOTE | 2020-05-16 07:50 | PM.PREOP ---
Pre-operative Note COVID-19 COVID-19 status: Negative Interval Note History & Physical reviewed/Exam performed by Physician: Yes Changes to H&P: No
[2020-05-16] MEDS: CEFAZOLIN 2 GM/100 ML FROZ.PIGGY IV (07:55)
--- NOTE | 2020-05-16 08:25 | SUR.OPER ---
Supine on padded OR bed, head on pillow, arms secured on padded arm boards at <90 degrees abduction, legs uncrossed, safety belt at pelvis, bump under right hip, tape over blanket over lower left leg.
[2020-05-16] MEDS: BUPIVACAINE 0.5% (PF) VIAL 30 ML INJ (08:33)
[2020-05-16] MEDS: LIDOCAINE 2% INJ SDV 5 ML INJ (08:35)
--- NOTE | 2020-05-16 08:58 | SUR.PHASEI ---
Pt arrived to PACU, airway self maintained.
--- NOTE | 2020-05-16 09:05 | SUR.PHASEI ---
report received, assume care.
[2020-05-16] MEDS: HYDROCODONE/ACET 5/325 TABLET 1 TAB PO ×2 (09:14→09:44)
--- NOTE | 2020-05-16 09:22 | PM.OP.1 ---
Operative Date/Time/Diagnoses Date of procedure: 05/16/20 Time of procedure: 09:22 Pre-op diagnosis: Right fifth hammertoe Post-op diagnosis: same Procedure & Clinicians Procedure: Right fifth toe amputation Same procedure as scheduled: Yes Indications: Painful right fifth hammertoe. Conservative measures failed to alleviate her pain and she wished to have surgical intervention at this time. We spoke with the risks, potential complications, as well as expected outcomes. Consent was signed, no contraindication to the procedure at this time. Surgeon: Bonnie London Click Yes if Unassisted: Yes Anesthesia Type: General Operative Notes Closure Type: primary Specimen(s): none sent Estimated Blood Loss (mL): 10 Blood products transfused: none Tourniquet time (min): 4 Procedure in detail: The patient was brought to the operating room and placed on the operating table in the supine position. Tourniquet was placed about the ankle. Well padded appropriately aligned. After induction of general anesthesia the foot and ankle were prepped and draped in the usual aseptic manner. The tourniquet was inflated. After a check of anesthesia, a full-thickness circumferential incision was made around the 5th toe. This was then continued into the metatarsophalangeal joint linearly. The toe was carefully disarticulated. The area was irrigated with copious amounts of normal sterile saline. No necrotic tissue or abscesses were noted. the tourniquet was deflated, a prompt hyperemic response was seen to the foot. Skin and tissue was revised to allow for appropriate closure. Vessels were cauterized and ligated as necessary. 4-0 Vicryl was used subcutaneously for closure and 4-0 nylon for the skin. The area was dressed with a sterile lightly compressive dressing. Complications: none Post-operative Condition: stable Disposition: PACU Plan for aftercare: Following a period of postoperative monitoring, the patient be discharged home on written and oral postoperative instructions including keeping the dressing dry and intact, avoiding significant ambulation on the foot, elevating the foot when seated home. DVT prevention techniques have been reviewed. She is given a prescription for [place] 5/325 mg tablets to be taken 1-2 tablets every 4-6 hours by mouth as needed for pain postsurgically. Special safety instructions are given in relationship to her concurrent use of Tylenol. Postoperative pain medication was okayed by her PCP. For the 1st postoperative visit the dressing will be changed and close to the 3rd postoperative week we will likely remove the sutures.
== END 2020-05-16 10:27 | disposition home or self-care (01) ==
PROVIDERS: PCP Family Medicine; Referring Provider Family Medicine; Visit Provider Podiatrist
PROC: (CPT 28820; principal; 2020-05-16 07:45)
DX: M20.41 Other hammer toe(s) (acquired), right foot (principal); Z86.711 Personal history of pulmonary embolism; Z79.01 Long term (current) use of anticoagulants; I10 Essential (primary) hypertension; F32.9 Major depressive disorder, single episode, unspecified; M79.7 Fibromyalgia
CPT/HCPCS: 28820; 81025; 85610; J0690; J1100; J2250; J2405; J2704; J3010

== ENCOUNTER 2020-05-24 09:54 | Emergency (ER) | payer OTHER, SELFPAY ==
[2020-04-18 10:42] VITALS: BMI 48.2
[2020-05-24 10:09] VITALS: BP 141/95; PULSE 102; RESP 16; TEMP 36.8; O2SAT 98; BMI 45.1
--- NOTE | 2020-05-24 14:54 | ED_ITS ---
HPI - Extremity Problem <Jenna Lares, MACHINE CLIPPER-BC - Last Filed: 05/24/20 15:11> General Chief complaint: Extremity Problem,Nontraumatic Stated complaint: pain management post op Time Seen by Provider: 05/24/20 11:57 Source: patient and family Mode of arrival: Wheelchair Limitations: no limitations History of Present Illness HPI Narrative: The patient is a 39-year-old female who presents with a chief complaint of postoperative pain. She had a 5th toe amputation 1 week ago today. The patient does use Zubsolv, which she gets from [facility] in [place]. She stopped taking that after her procedure, and took Frankfort. She states she went through her 35 tablets of Frankfort in about 4 days that she was taking them two every 4 hours. She states that this helped control her pain. However her pain got worse when she ran out. She states she follow-up up with her surgeon, Dr. London on Thursday. She states that her pain got worse. She has been unable to get a hold of her pain management provider, who is Lore Harrison with [facility] in [place]. She states that she has been using Tylenol, last dose this morning. Related Data Home Medications Medication Instructions Recorded Confirmed acetaminophen 500 mg tablet 2,000 mg PO BID tab 09/23/18 05/16/20 magnesium 500 mg PO DAILY 06/29/19 05/16/20 fluticasone propion-salmeterol 1 puff INHALATION BID 07/11/19 05/16/20 [Advair Diskus] warfarin [Coumadin] 5 mg PO Q OTHER DAY 12/02/19 05/16/20 warfarin [Coumadin] 10 mg PO Q OTHER DAY 12/02/19 05/16/20 Zubsolv 1 tab SUBLINGUAL BID 12/29/19 05/16/20 duloxetine 90 mg PO DAILY 12/29/19 05/16/20 metoprolol tartrate 12.5 mg PO BID 12/29/19 05/16/20 ferrous fumarate 325 mg (106 mg 325 mg PO DAILY 01/04/20 05/16/20 iron) tablet amitriptyline 10 mg tablet 5 mg PO DAILY tab 04/04/20 05/16/20 ipratropium-albuterol 3 ml INHALATION Q6H 05/09/20 05/10/20 spironolactone 12.5 mg PO BID 05/09/20 05/16/20 Previous Rx's Medication Instructions Recorded blood sugar diagnostic #50 each 12/08/18 blood-glucose meter #1 each 12/08/18 lancets 33 gauge #100 each 12/08/18 TENS units #1 each 02/09/19 albuterol sulfate 2 puff INHALATION Q4-6H PRN #8.5 07/11/19 gram Compressioin Stockings #1 ea 10/13/19 omeprazole 20 mg capsule,delayed 20 mg PO BID #180 cap 01/02/20 release pregabalin 150 mg capsule 150 mg PO BID #60 cap 02/01/20 ondansetron 4 mg PO Q8H PRN #30 tab 02/24/20 terazosin 2 mg PO BEDTIME #14 cap 02/29/20 levothyroxine 50 mcg tablet 50 mcg PO BEDTIME #60 tab 03/12/20 aripiprazole 5 mg tablet 5 mg PO BID #180 tab 03/16/20 cyclobenzaprine 10 mg tablet 10 mg PO BID #60 tab 04/18/20 furosemide 20 mg tablet 60 mg PO QPM #90 tab 04/18/20 furosemide 40 mg tablet See Rx Instructions .ROUTE 05/17/20 .COMPLEX #90 tab hydrocodone-acetaminophen [Frankfort] 1 tab PO Q4-6H PRN #14 tab 05/24/20 Allergies Allergy/AdvReac Type Severity Reaction Status Date / Time carisoprodol [CARISOPRODOL] AdvReac Severe urinary Verified 05/24/20 10:09 retention fosphenytoin AdvReac Severe Seizures Verified 05/24/20 10:09 Review of Systems <Jenna Lares, MACHINE CLIPPER- - Last Filed: 05/24/20 15:11> Review of Systems Narrative: GENERAL: Denies chills, fatigue, malaise, fever, sweats. HEENT: Denies sinus pain, ear pain, sore throat, difficulty swallowing, dizziness. RESPIRATORY: Denies dyspnea, cough, wheezing, hemoptysis, sputum. CARDIOVASCULAR: Denies chest pain, palpitations, orthopnea, edema, GASTROINTESTINAL: Denies nausea, vomiting, abdominal pain, diarrhea, constipation, melena. : Denies dysuria, frequency, incontinence, hematuria, urinary retention. MUSCULOSKELETAL: See HPI SKIN: See HPI NEUROLOGIC: Denies weakness, headache, numbness, change in speech, confusion, seizures, incoordination. PSYCHIATRIC: No concerning psychosocial issues. 12 point review of systems is negative except for those stated above Patient History <NICOLE Acosta - Last Filed: 05/24/20 15:11> Medical History Acetaminophen overdose of undetermined intent (12/2015) Alcoholism Asthma Cubital tunnel syndrome Depression (02/08/14) DM type 2 (diabetes mellitus, type 2) DVT (deep venous thrombosis) Essential hypertension Fibromyalgia (03/02/15) Hypoxia Intraoperative cardiac arrest during non-cardiac surgery (11/2013) 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 Morbid obesity Narcotic habituation, continuous Obstipation LYLA (obstructive sleep apnea) Ovarian cyst Plantar fasciitis Psychogenic nonepileptic seizure Pulmonary embolism RBBB (right bundle branch block) Sinus tachycardia Status post laminectomy (12/14/15) Suicide attempt Tobacco abuse Tylenol overdose Urinary retention Surgical History History of carpal tunnel repair (10/30/14) History of colonoscopy History of esophagogastroduodenoscopy (EGD) History of lumbar spinal fusion (2018) S/P epidural steroid injection (11/2013) Status post dilation and curettage (2008) Status post laminectomy (09/2016) Family History Grandfather Diabetes mellitus Family/Other Pancreatic cancer Social History household members: spouse Smoking Status: Current every day smoker alcohol intake: current eating out: 1-3 times/week Type(s) of exercise: normal ROM and activity and sedentary lifestyle Smoking Status: Current every day smoker tobacco type: cigarettes alcohol intake frequency: holidays/special occasions only Substance Use Type: does not use Exam <NICOLE Acosta - Last Filed: 05/24/20 15:11> Narrative Exam Narrative: GENERAL: This is a well-nourished, well-developed patient, in no acute distress HEAD: Atraumatic. Normocephalic. No temporal or scalp tenderness. EYES: Pupils equal round and reactive. Extraocular motions intact. No scleral icterus. No injection or drainage. ENT: Nose without bleeding, purulent drainage or septal hematoma. Wearing a mask. Airway patent. NECK: Trachea midline. No JVD or lymphadenopathy. Supple, nontender, no meningeal signs. CARDIOVASCULAR: Regular rate and rhythm RESPIRATORY: No cough. No increased respiratory effort. No accessory muscle use. EXTREMITIES: See skin exam. Positive pedal pulses right foot. BACK: Nontender without deformity or crepitance. No flank tenderness. NEURO: AOx3. SKIN: Surgical site at right 5th toe amputation, no extending erythema, no drainage noted laceration is well approximated Initial Vital Signs Initial Vital Signs: Vital Signs Temperature 98.2 F 05/24/20 10:09 Pulse Rate 102 H 05/24/20 10:09 Respiratory Rate 16 05/24/20 10:09 Blood Pressure 141/95 H 05/24/20 10:09 Pulse Oximetry 98 05/24/20 10:09 <Kristen Martinez DO - Last Filed: 05/24/20 19:30> Initial Vital Signs Initial Vital Signs: Vital Signs Temperature 98.2 F 05/24/20 10:09 Pulse Rate 102 H 05/24/20 10:09 Respiratory Rate 16 05/24/20 10:09 Blood Pressure 141/95 H 05/24/20 10:09 Pulse Oximetry 98 05/24/20 10:09 Scores <NICOLE Acosta - Last Filed: 05/24/20 15:11> GCS Mario coma scale eye opening: Spontaneous Mario coma scale verbal response: Orientated Bradford coma scale motor response: Obey commands Bradford coma scale total score: 15 Course <NICOLE Acosta - Last Filed: 05/24/20 15:11> Vital Signs Vital signs: Vital Signs - 8 hr 05/24/20 15:24 Pulse Rate 90 Respiratory Rate 14 Blood Pressure 125/69 Pulse Oximetry 94 <Kristen Martinez DO - Last Filed: 05/24/20 19:30> Vital Signs Vital signs: Vital Signs - 8 hr 05/24/20 15:24 Pulse Rate 90 Respiratory Rate 14 Blood Pressure 125/69 Pulse Oximetry 94 MDM - Extremity (Nontraumatic) <NICOLE Acosta - Last Filed: 05/24/20 15:11> MDM Narrative Medical decision making narrative: The patient is a 39-year-old female who presents with a chief complaint of inability to control her postoperative pain. She has a complicated history, including use Zubsolv. I spoke with the patient's surgeon, Dr. London, who states that she would prefer I speak with the patient's pain management physician before prescribing further medication at this point time. Thus I spoke with Lore Harrison, the patient's pain management provider from [facility] in [place]. She recommends that I give the patient a small amount of pain medication to help get her through the weekend, and she will follow-up with patient on Thursday to consider changing her medications. She encouraged use of Frankfort. Given patient has overall good exam, will proceed with expert recommendations. Discussed this at length with the patient, that she should stop taking the Subsolv while taking the Frankfort and encouraged follow-up pain management as well as her surgeon and primary care provider. Patient and have no questions or concerns upon discharge and state understanding return precautions as well as follow-up care. Discharge Plan Departure Patient Disposition: Home Clinical Impression: Post-operative pain Instructions: DI for Chronic Pain -- Adult, DI for Acute Pain -- Adult Activity Restrictions/Additional Instructions: Thank you for trusting us with your care today. As discussed, I spoke with both Dr. London and Lore Harrison, your pain management prescriber. She would like to follow with you on Thursday. Per and that flexors recommendations, I sent a pain prescription to [facility] in [place]. I have given you a prescription of a narcotic for pain. Be aware that this can be constipating and sedating. I encouraged taking with a stool softener, pushing fluids and fiber. Do not take and drive, operate heavy machinery, etc. Do not combine it with any other sedating substances such as alcohol. The combination of narcotics and alcohol and/or other sedatives can be lethal. As discussed, please stop taking your is Zubsolv when on the pain medication Prescriptions: New hydrocodone-acetaminophen [Frankfort] 5-325 mg tablet 1 tab PO Q4-6H PRN (Reason: pain) Qty: 14 RF: 0 No Action (DME) Diatrue Plus Test Strip strip See Dose Instructions .ROUTE .MEDSUPPLY Qty: 50 RF: 12 (DME) blood-glucose meter [Diatrue Plus Blood Glucose Met] [facility] See Dose Instructions .ROUTE .MEDSUPPLY Qty: 1 RF: 0 (DME) lancets [Easy Touch Twist Lancets] [facility] See Dose Instructions .ROUTE .MEDSUPPLY Qty: 100 RF: 3 (DME) TENS units device See Rx Instructions .ROUTE .MEDSUPPLY Qty: 1 RF: 0 ferrous fumarate 325 mg (106 mg iron) tablet 325 mg PO DAILY RF: 0 (DME) Compressioin Stockings Qty: 1 RF: 0 omeprazole 20 mg capsule,delayed release(DR/EC) 20 mg PO BID Qty: 180 RF: 1 pregabalin 150 mg capsule 150 mg PO BID Qty: 60 RF: 3 levothyroxine 50 mcg tablet 50 mcg PO BEDTIME Qty: 60 RF: 0 aripiprazole [Abilify] 5 mg tablet 5 mg PO BID Qty: 180 RF: 0 furosemide 20 mg tablet 60 mg PO QPM Qty: 90 RF: 0 cyclobenzaprine 10 mg tablet 10 mg PO BID Qty: 60 RF: 0 furosemide 40 mg tablet See Rx Instructions .ROUTE .COMPLEX Qty: 90 RF: 3 acetaminophen [Tylenol Extra Strength] 500 mg tablet 2,000 mg PO BID RF: 0 fluticasone propion-salmeterol [Advair Diskus] 100-50 mcg/dose blister with device 1 puff INHALATION BID RF: 0 albuterol sulfate 90 mcg/actuation HFA aerosol inhaler 2 puff INHALATION Q4-6H PRN (Reason: shortness of breath or wheezing) Qty: 8.5 RF: 0 warfarin [Coumadin] 5 mg Tablet 5 mg PO Q OTHER DAY RF: 0 warfarin [Coumadin] 10 mg Tablet 10 mg PO Q OTHER DAY RF: 0 duloxetine 60 mg capsule,delayed release(DR/EC) 90 mg PO DAILY RF: 0 metoprolol tartrate 25 mg tablet 12.5 mg PO BID RF: 0 Zubsolv 5.7-1.4 mg Tablet, Sublingual 1 tab SUBLINGUAL BID RF: 0 ondansetron 4 mg tablet,disintegrating 4 mg PO Q8H PRN (Reason: nausea and vomiting) Qty: 30 RF: 0 ipratropium-albuterol 0.5 mg-3 mg(2.5 mg base)/3 mL Solution For Nebulization 3 ml INHALATION Q6H RF: 0 spironolactone 25 mg Tablet 12.5 mg PO BID RF: 0 magnesium 250 mg Tablet 500 mg PO DAILY RF: 0 terazosin 2 mg capsule 2 mg PO BEDTIME Qty: 14 RF: 0 amitriptyline 10 mg tablet 5 mg PO DAILY RF: 0 Referrals: Bonnie London DPM [Physician] - Alejandra Lynch MD [Primary Care Provider] - <Kristen Martinez DO - Last Filed: 05/24/20 19:30> Cosign ED Attending Cosjassature Attestation: I was immediately available in the department for consultation. Documentation has been reviewed. I agree with assessment and plan.
[2020-05-24 15:24] VITALS: BP 125/69; PULSE 90; RESP 14; O2SAT 94
== END 2020-05-24 15:25 | disposition home or self-care (01) ==
PROVIDERS: Emergency Provider Nurse Practitioner Family; PCP Family Medicine
DX: G89.18 Other acute postprocedural pain (principal)
CPT/HCPCS: 99281

== ENCOUNTER → 2020-07-03 14:31 | Outpatient (CLI) | payer OTHER, SELFPAY ==
[2020-04-18 10:42] VITALS: BMI 48.2
--- NOTE | 2020-07-03 14:32 | DI.US.S_ITS ---
PROCEDURE: US SOFT TISSUE HEAD AND NECK INDICATIONS: PAROTID GLAND ENLARGEMENT TECHNIQUE: Real-time scanning was performed of the neck region of interest, with image documentation. COMPARISON: None. FINDINGS: Right parotid gland measures 5.1 x 1.6 x 2.7 cm. The left parotid gland measures 4.9 x 1.2 x 4.1 cm. Mildly prominent intraparotid lymph nodes are seen bilaterally, slightly larger on the right. No suspicious solid parotid mass is identified. IMPRESSION: Mildly prominent but nonspecific intraparotid lymph nodes bilaterally, slightly larger on the right. Dictated by: Adair Kidd M.D. on 07/03/2020 at 16:33 Approved by: Adair Kidd M.D. on 07/03/2020 at 16:37
== END ==
PROVIDERS: PCP Family Medicine; Referring Provider Family Medicine; Visit Provider Family Medicine
DX: K11.1 Hypertrophy of salivary gland (principal)
CPT/HCPCS: 76536

== ENCOUNTER → 2020-07-23 12:28 | Outpatient (CLI) | payer OTHER, SELFPAY ==
[2020-04-18 10:42] VITALS: BMI 48.2
--- NOTE | 2020-07-23 12:31 | DI.RAD.S_ITS ---
PROCEDURE: XR CHEST 2V INDICATIONS: shortness of breath TECHNIQUE: 2 views of the chest were acquired. COMPARISON: [facility], CR, XR CHEST 2V, 02/24/2020, 13:24. FINDINGS: Surgical changes and devices: None. Lungs and pleura: Lungs are clear. No pleural effusions or pneumothorax. Mediastinum: Mediastinal contours are normal. Heart size is normal. Bones and chest wall: No suspicious bony abnormalities. Soft tissues appear unremarkable. IMPRESSION: No acute cardiopulmonary process demonstrated radiographically. Dictated by: Reg Lopez M.D. on 07/23/2020 at 13:02 Approved by: Reg Lopez M.D. on 07/23/2020 at 13:03
[2020-07-23 13:54] LABS: Add Manual Diff / Slide Review NO; Basophils Absolute Auto 100 /uL (0-100); Eosinophils Absolute Auto 100 /uL (0-450); Eosinophils Percent Auto 1.7 % (2-4); Hematocrit 37.1 % (36-46); Hemoglobin 12.2 g/dL (12.0-16.0); Lymphocytes Absolute Auto 1200 /uL (1100-4500); Lymphocytes Percent Auto 17.7 % (25-40); Mean Corpuscular HGB Conc 32.8 % (30-36); Mean Corpuscular Hemoglobin 28.6 PG (26-34); Mean Corpuscular Volume 87.3 fL (80-100); Monocytes Absolute Auto 600 /uL (0-900); Monocytes Percent Auto 8.6 % (3-14); Neutrophils Absolute Auto 4900 /uL (1500-7000); Platelet Count 234 X10^3/uL (150-400); Red Blood Cell Count 4.25 X10^6/uL (4.0-5.2); Red Cell Distribution Width 14.2 % (11.6-14.8); White Blood Cell Count 6.8 X10^3/uL (4.5-11.0)
[2020-07-23 14:21] LABS: Hemoglobin A1C% w Est Avg Glu 6.4 % (4.0-6.0)
[2020-07-23 15:21] LABS: Alanine Aminotransferase 21 IU/L (<35); Albumin 4.5 g/dL (3.5-5.0); Albumin Globulin Ratio 1.3 (1.0-2.8); Alkaline Phosphatase 72 U/L (38-126); Aspartate Aminotransferase 30 IU/L (14-36); BUN Creatinine Ratio 21.2 (6-22); Bilirubin Total 0.4 mg/dL (0.2-1.3); Blood Urea Nitrogen 11 mg/dL (7-17); Calcium 9.3 mg/dL (8.4-10.2); Carbon Dioxide 31 mmol/L (22-32); Chloride 100 mmol/L (98-107); Estimated Glomerular Filt Rate > 60.0 mL/min (>60); Globulin 3.6 g/dL (1.7-4.1); Glucose 142 mg/dL (70-100); Sodium 138 mmol/L (137-145); Total Protein 8.1 g/dL (6.3-8.2)
[2020-07-23 15:24] LABS: HEMOLYSIS 58 (0-50)
[2020-07-23 15:25] LABS: Potassium 4.1 mmol/L (3.4-5.1)
[2020-07-23 15:27] LABS: NT-proBNP (BNP-Adult 18+) 47 pg/mL (<125)
[2020-07-23 16:22] LABS: Creatinine Urine Random 17.1 mg/dL
[2020-07-23 16:30] LABS: Microalbumin Urine Random < 0.6 mg/dL (0-1.6)
== END ==
PROVIDERS: PCP Family Medicine; Referring Provider Family Medicine; Visit Provider Family Medicine
DX: R06.02 Shortness of breath (principal); R60.1 Generalized edema; E11.9 Type 2 diabetes mellitus without complications
CPT/HCPCS: 36415; 71046; 80053; 82043; 82570; 83036; 83880; 85025

== ENCOUNTER → 2020-07-31 12:46 | Outpatient (CLI) | payer OTHER, SELFPAY ==
[2020-04-18 10:42] VITALS: BMI 48.2
[2020-07-31 15:30] LABS: COVID19 -Nasal RAPID Negative (Negative)
== END ==
PROVIDERS: PCP Family Medicine; Visit Provider Family Medicine Sleep Medicine
DX: Z20.822 Contact with and (suspected) exposure to COVID-19 (principal)
CPT/HCPCS: 87635; C9803

== ENCOUNTER → 2020-08-27 13:10 | Outpatient (CLI) | payer OTHER, SELFPAY ==
[2020-08-08 13:05] VITALS: BMI 48.2
[2020-08-27 13:45] LABS: Add Manual Diff / Slide Review NO; Basophils Absolute Auto 0 /uL (0-100); Basophils Percent Auto 0.3 % (0-2); Eosinophils Absolute Auto 100 /uL (0-450); Eosinophils Percent Auto 2.3 % (2-4); Hematocrit 33.5 % (36-46); Hemoglobin 10.7 g/dL (12.0-16.0); Lymphocytes Absolute Auto 1000 /uL (1100-4500); Lymphocytes Percent Auto 20.4 % (25-40); Mean Corpuscular Hemoglobin 27.2 PG (26-34); Mean Corpuscular Volume 85.1 fL (80-100); Monocytes Absolute Auto 500 /uL (0-900); Neutrophils Absolute Auto 3200 /uL (1500-7000); Platelet Count 238 X10^3/uL (150-400); Red Blood Cell Count 3.94 X10^6/uL (4.0-5.2); Red Cell Distribution Width 14.5 % (11.6-14.8); White Blood Cell Count 4.8 X10^3/uL (4.5-11.0)
[2020-08-27 13:59] LABS: Alanine Aminotransferase 22 IU/L (<35); Albumin Globulin Ratio 1.2 (1.0-2.8); Alkaline Phosphatase 82 U/L (38-126); Aspartate Aminotransferase 30 IU/L (14-36); Bilirubin Total 0.1 mg/dL (0.2-1.3); Blood Urea Nitrogen 8 mg/dL (7-17); Calcium 9.4 mg/dL (8.4-10.2); Carbon Dioxide 31 mmol/L (22-32); Chloride 101 mmol/L (98-107); Estimated Glomerular Filt Rate > 60.0 mL/min (>60); Globulin 3.3 g/dL (1.7-4.1); Glucose 158 mg/dL (70-100); HEMOLYSIS < 15 (0-50); Potassium 3.7 mmol/L (3.4-5.1); Sodium 138 mmol/L (137-145); Total Protein 7.3 g/dL (6.3-8.2)
[2020-08-27 15:41] LABS: Creatinine Urine Random 40.2 mg/dL
[2020-08-27 15:43] LABS: Microalbumi Creatinin Ratio Ur 19.9 ug/mg CR (<30); Microalbumin Urine Random 0.8 mg/dL (0-1.6)
== END ==
PROVIDERS: PCP Family Medicine; Referring Provider Internal Medicine Nephrology; Visit Provider Internal Medicine Nephrology
DX: E11.22 Type 2 diabetes mellitus with diabetic chronic kidney disease (principal); R80.9 Proteinuria, unspecified; R60.9 Edema, unspecified
CPT/HCPCS: 36415; 80053; 82043; 82570; 85025

== ENCOUNTER → 2020-10-09 15:52 | Outpatient (CLI) | payer OTHER, SELFPAY ==
[2020-08-08 13:05] VITALS: BMI 48.2
[2020-10-09 16:41] LABS: Add Manual Diff / Slide Review NO; Basophils Absolute Auto 0 /uL (0-100); Basophils Percent Auto 0.3 % (0-2); Eosinophils Absolute Auto 100 /uL (0-450); Eosinophils Percent Auto 1.9 % (2-4); Hematocrit 34.9 % (36-46); Hemoglobin 10.8 g/dL (12.0-16.0); Lymphocytes Absolute Auto 1400 /uL (1100-4500); Lymphocytes Percent Auto 22.7 % (25-40); Mean Corpuscular Hemoglobin 24.6 PG (26-34); Mean Corpuscular Volume 79.4 fL (80-100); Monocytes Absolute Auto 500 /uL (0-900); Monocytes Percent Auto 8.7 % (3-14); Neutrophils Absolute Auto 4200 /uL (1500-7000); Neutrophils Percent Auto 66.4 % (50-75); Platelet Count 269 X10^3/uL (150-400); Red Cell Distribution Width 15.6 % (11.6-14.8); White Blood Cell Count 6.3 X10^3/uL (4.5-11.0)
[2020-10-09 16:47] LABS: Hemoglobin A1C% w Est Avg Glu 6.4 % (4.0-6.0)
[2020-10-09 17:03] LABS: Alanine Aminotransferase 20 IU/L (<35); Albumin 4.3 g/dL (3.5-5.0); Albumin Globulin Ratio 1.2 (1.0-2.8); Alkaline Phosphatase 82 U/L (38-126); Aspartate Aminotransferase 28 IU/L (14-36); Bilirubin Total 0.2 mg/dL (0.2-1.3); Blood Urea Nitrogen 10 mg/dL (7-17); Calcium 9.3 mg/dL (8.4-10.2); Carbon Dioxide 29 mmol/L (22-32); Chloride 101 mmol/L (98-107); Estimated Glomerular Filt Rate > 60.0 mL/min (>60); Globulin 3.6 g/dL (1.7-4.1); Glucose 91 mg/dL (70-100); HEMOLYSIS < 15 (0-50); Potassium 3.8 mmol/L (3.4-5.1); Sodium 137 mmol/L (137-145); Total Protein 7.9 g/dL (6.3-8.2)
== END ==
PROVIDERS: PCP Family Medicine; Referring Provider Family Medicine; Visit Provider Family Medicine
DX: E11.9 Type 2 diabetes mellitus without complications (principal); D64.9 Anemia, unspecified; I10 Essential (primary) hypertension
CPT/HCPCS: 36415; 80053; 83036; 85025

== ENCOUNTER → 2020-11-13 15:58 | Outpatient (CLI) | payer OTHER, SELFPAY ==
[2020-08-08 13:05] VITALS: BMI 48.2
[2020-11-13 16:45] LABS: BUN Creatinine Ratio 16.7 (6-22); Blood Urea Nitrogen 9 mg/dL (7-17); Calcium 9.2 mg/dL (8.4-10.2); Carbon Dioxide 33 mmol/L (22-32); Chloride 100 mmol/L (98-107); Estimated Glomerular Filt Rate > 60.0 mL/min (>60); Glucose 133 mg/dL (70-100); HEMOLYSIS < 15 (0-50); Potassium 3.5 mmol/L (3.4-5.1); Sodium 139 mmol/L (137-145)
== END ==
PROVIDERS: PCP Family Medicine; Referring Provider Family Medicine; Visit Provider Family Medicine
DX: I95.9 Hypotension, unspecified (principal)
CPT/HCPCS: 36415; 80048

== ENCOUNTER → 2020-12-11 13:10 | Outpatient (CLI) | payer OTHER, MEDICARE, SELFPAY ==
[2020-11-27 11:52] VITALS: BMI 48.2
[2020-12-11 14:31] LABS: HCG Quantitative /Beta subunit < 2.4 mIU/mL
== END ==
PROVIDERS: PCP Family Medicine; Referring Provider Family Medicine; Visit Provider Family Medicine
DX: N91.2 Amenorrhea, unspecified (principal)
CPT/HCPCS: 36415; 84702

== ENCOUNTER → 2020-12-25 15:49 | Outpatient (CLI) | payer OTHER, MEDICARE, SELFPAY ==
[2020-11-27 11:52] VITALS: BMI 48.2
[2020-12-25 16:28] LABS: Add Manual Diff / Slide Review NO; Basophils Absolute Auto 0 /uL (0-100); Basophils Percent Auto 0.5 % (0-2); Eosinophils Absolute Auto 200 /uL (0-450); Hematocrit 34.8 % (36-46); Hemoglobin 11.1 g/dL (12.0-16.0); Lymphocytes Absolute Auto 1400 /uL (1100-4500); Lymphocytes Percent Auto 21.6 % (25-40); Mean Corpuscular Hemoglobin 25.8 PG (26-34); Mean Corpuscular Volume 80.6 fL (80-100); Monocytes Absolute Auto 500 /uL (0-900); Monocytes Percent Auto 7.6 % (3-14); Neutrophils Absolute Auto 4200 /uL (1500-7000); Neutrophils Percent Auto 67.3 % (50-75); Platelet Count 255 X10^3/uL (150-400); Red Blood Cell Count 4.32 X10^6/uL (4.0-5.2); Red Cell Distribution Width 18.4 % (11.6-14.8); White Blood Cell Count 6.3 X10^3/uL (4.5-11.0)
[2020-12-25 16:58] LABS: Free T4, Direct Thyroxine 1.01 ng/dL (0.78-2.19)
[2020-12-25 16:59] LABS: Follicle Stimulating Hormone 10.9 mIU/mL; Prolactin 12.9 ng/mL (3.0-18.6)
[2020-12-25 17:12] LABS: TSH w/ Reflex to FT4 2.13 uIU/mL (0.47-4.68)
== END ==
PROVIDERS: PCP Family Medicine; Referring Provider Family Medicine; Visit Provider Family Medicine
DX: N91.2 Amenorrhea, unspecified (principal)
CPT/HCPCS: 36415; 83001; 84146; 84439; 84443; 85025

== ENCOUNTER → 2021-01-16 11:43 | Outpatient (CLI) | payer OTHER, MEDICARE, SELFPAY ==
[2020-11-27 11:52] VITALS: BMI 48.2
[2021-01-16 13:45] LABS: COVID19 -Nasal RAPID Negative (Negative)
== END ==
PROVIDERS: PCP Family Medicine; Referring Provider Physician Assistant; Visit Provider Physician Assistant
DX: Z20.822 Contact with and (suspected) exposure to COVID-19 (principal); Z01.812 Encounter for preprocedural laboratory examination
CPT/HCPCS: 87635

== ENCOUNTER 2021-01-18 08:15 | Day surgery (SDC) | payer OTHER, MEDICARE, SELFPAY ==
[2020-11-27 11:52] VITALS: BMI 48.2
[2021-01-07 08:41] VITALS: BMI 48.6
[2021-01-18 09:02] VITALS: BP 133/75; PULSE 117; RESP 16; TEMP 37.1; O2SAT 97; BMI 48.2
--- NOTE | 2021-01-18 09:33 | SUR.PREOP ---
Pt taking zubsolv. Per pt, she takes it for back pain, not for addiction.
[2021-01-18] MEDS: LACTATED RINGERS 1,000 ML 42 ML IV (09:39)
--- NOTE | 2021-01-18 09:58 | SUR.PREOP ---
Addendum entered by Mena Caldwell R.N. 01/18/21 10:00: Retrieved cell phone from and given to pt. Original Note: , Morgan, updated regarding delay. (1st case of the day running behind.)
--- NOTE | 2021-01-18 12:02 | PM.PREOP ---
Pre-operative Note COVID-19 COVID-19 status: Negative Interval Note History & Physical reviewed/Exam performed by Physician: Yes Changes to H&P: No
[2021-01-18] MEDS: CEFAZOLIN 1 GM VIAL IM (12:28)
[2021-01-18] MEDS: BUPIVACAINE 0.5% (PF) VIAL 30 ML INJ (12:44)
[2021-01-18] MEDS: LIDOCAINE 2% INJ SDV 5 ML INJ (12:44)
--- NOTE | 2021-01-18 12:46 | SUR.OPER ---
Supine on padded OR bed, head on pillow, wedge under back per anesthesia, arms secured on padded arm boards with pillow support at <90 degrees abduction, legs uncrossed, safety belt at thigh, tape over blanket over lower legs.
[2021-01-18 13:18] VITALS: BP 130/76; PULSE 103; RESP 94; TEMP 36.5
--- NOTE | 2021-01-18 13:41 | PM.OP.1 ---
Operative Date/Time/Diagnoses Date of procedure: 01/18/21 Time of procedure: 13:42 Pre-op diagnosis: Right foot painful scar Post-op diagnosis: same Procedure & Clinicians Procedure: Right foot fifth toe amputation site scar revision Same procedure as scheduled: Yes Indications: Painful scar to the region of the right fifth toe amputation site. Conservative measures failed to alleviate her pain and she wished to have surgical intervention at this time. We spoke of the risks, potential complications, expected outcomes. Consent was signed, no contraindications to the procedure at this time. Surgeon: Bonnie London Click Yes if Unassisted: Yes Anesthesia Type: Sedation and Local Operative Notes Closure Type: primary Specimen(s): none sent Estimated Blood Loss (mL): 20 Blood products transfused: none Procedure in detail: The patient was brought to the operating room and placed on the operating table in the supine position. She was secured, well-padded, appropriately aligned. After induction of IV sedation, local anesthesia was delivered to the lateral dorsal portion of the right foot. The foot and ankle were prepped and draped in the usual aseptic manner. After a check of anesthesia, the tip of the scar of the fifth toe amputation site was resected using two converging semi-elliptical incisions. This was passed from the field, and no area of purulence or cystic changes were noted in this. The area was able to bleed and did seem to have thickened scar tissue there. Next, just proximal to this area was another segment of very thick scar tissue that had created a little lobe of skin with a crevice. This was able to also be ellipsed and the scar tissue removed. I gently used some undermining of the surrounding skin to mobilze remaining scar tissue and found good way of coapting the new edges of the skin. The areas were irrigated with copious amounts of normal saline. 4-0 nylon was used to repair the skin both these locations. A lightly compressive sterile dressing was placed over the foot as was the stockinette. Post-operative Condition: stable Disposition: same day surgery Plan for aftercare: Following a period of postoperative monitoring, the patient will be discharged home on written and oral postop instructions including keeping the dressing dry and intact, avoiding significant ambulation to the foot, elevating the foot when seated at home, DVT prevention techniques have been reviewed. Follow-up appointment has been made with Dr. London for in the next 7-10 days.
== END 2021-01-18 13:50 | disposition home or self-care (01) ==
PROVIDERS: PCP Family Medicine; Referring Provider Podiatrist; Visit Provider Podiatrist
PROC: (CPT 11423; principal; 2021-01-18 10:45)
DX: L90.5 Scar conditions and fibrosis of skin (principal); R20.0 Anesthesia of skin; M79.674 Pain in right toe(s); I10 Essential (primary) hypertension; M79.7 Fibromyalgia; F32.9 Major depressive disorder, single episode, unspecified; F17.210 Nicotine dependence, cigarettes, uncomplicated; Z89.421 Acquired absence of other right toe(s); Z86.711 Personal history of pulmonary embolism; Z79.01 Long term (current) use of anticoagulants
CPT/HCPCS: 11423; 81025; J0690; J2250; J2704; J3010

== ENCOUNTER → 2021-02-14 12:01 | Outpatient (CLI) | payer OTHER, MEDICARE, SELFPAY ==
[2020-11-27 11:52] VITALS: BMI 48.2
[2021-02-14 13:39] LABS: Alanine Aminotransferase 23 IU/L (<35); Albumin 4.3 g/dL (3.5-5.0); Albumin Globulin Ratio 1.4 (1.0-2.8); Alkaline Phosphatase 72 U/L (38-126); Aspartate Aminotransferase 28 IU/L (14-36); BUN Creatinine Ratio 18.9 (6-22); Bilirubin Total 0.2 mg/dL (0.2-1.3); Bilirubin Unconjugated 0.1 mg/dL (0.0-1.1); Blood Urea Nitrogen 10 mg/dL (7-17); Carbon Dioxide 34 mmol/L (22-32); Chloride 98 mmol/L (98-107); Estimated Glomerular Filt Rate > 60.0 mL/min (>60); Globulin 3.1 g/dL (1.7-4.1); Glucose 113 mg/dL (70-100); HEMOLYSIS < 15 (0-50); Sodium 139 mmol/L (137-145); Total Protein 7.4 g/dL (6.3-8.2)
[2021-02-14 15:46] LABS: HIV 1 & 2 Ab/Ag 4th Gen Combo NEGATIVE (NEGATIVE)
[2021-02-15 21:14] LABS: Treponema pallidum Antibodies Non Reactive (Non Reactive)
== END ==
PROVIDERS: PCP Family Medicine; Referring Provider Nurse Practitioner Occupational Health; Visit Provider Nurse Practitioner Occupational Health
DX: F11.20 Opioid dependence, uncomplicated (principal); I10 Essential (primary) hypertension
CPT/HCPCS: 36415; 80048; 80076; 86780; 87389

== ENCOUNTER → 2021-03-01 12:48 | Outpatient (CLI) | payer OTHER, MEDICARE, SELFPAY ==
[2020-11-27 11:52] VITALS: BMI 48.2
[2021-03-01 15:51] LABS: HCG Quantitative /Beta subunit < 2.4 mIU/mL
== END ==
PROVIDERS: PCP Family Medicine; Referring Provider Family Medicine; Visit Provider Family Medicine
DX: N92.6 Irregular menstruation, unspecified (principal); N94.6 Dysmenorrhea, unspecified
CPT/HCPCS: 36415; 84702

== ENCOUNTER → 2021-03-06 11:40 | Outpatient (CLI) | payer OTHER, MEDICARE, SELFPAY ==
[2020-11-27 11:52] VITALS: BMI 48.2
--- NOTE | 2021-03-06 11:43 | DI.RAD.S_ITS ---
PROCEDURE: XR FOOT LT MIN 3V INDICATIONS: left foot/ankle pain, severe pronation TECHNIQUE: 3 views of the foot were acquired. COMPARISON: None. FINDINGS: Bones: No fractures or dislocations. Mild hallux valgus. Degenerative changes of the hallux sesamoids. No suspicious bony lesions. Soft tissues: No tibiotalar joint effusion. Diffuse edema versus body habitus. IMPRESSION: No acute osseous abnormality. Dictated by: Rogelio Chao M.D. on 03/06/2021 at 14:35 Approved by: Rogelio Chao M.D. on 03/06/2021 at 14:38
--- NOTE | 2021-03-06 11:43 | DI.RAD.S_ITS ---
PROCEDURE: XR ANKLE LT MIN 3V INDICATIONS: left foot/ankle pain, severe pronation TECHNIQUE: 3 views of the ankle were acquired. COMPARISON: None. FINDINGS: Bones: No fractures or dislocations. Ankle mortise is normally aligned. No suspicious bony lesions. Soft tissues: No tibiotalar joint effusion. Achilles tendon appears normal. IMPRESSION: No acute fracture. No osseous lesion. If symptoms and/or clinical suspicion for pathology persist, further assessment with repeat, or advanced imaging (e.g., CT, MRI, or bone scan) may be helpful for further assessment. Dictated by: Roger Mishra M.D. on 03/06/2021 at 13:35 Approved by: Roger Mishra M.D. on 03/06/2021 at 16:11
== END ==
PROVIDERS: PCP Family Medicine; Referring Provider Family Medicine; Visit Provider Family Medicine
DX: M79.672 Pain in left foot (principal); M25.572 Pain in left ankle and joints of left foot
CPT/HCPCS: 73610; 73630

== ENCOUNTER → 2021-04-05 13:45 | Outpatient (CLI) | payer OTHER, MEDICARE, SELFPAY ==
[2020-11-27 11:52] VITALS: BMI 48.2
[2021-04-05 14:40] LABS: Hemoglobin A1C% w Est Avg Glu 6.2 % (4.0-6.0)
== END ==
PROVIDERS: PCP Family Medicine; Referring Provider Family Medicine; Visit Provider Family Medicine
DX: E11.9 Type 2 diabetes mellitus without complications (principal)
CPT/HCPCS: 36415; 83036

== ENCOUNTER → 2021-04-24 11:35 | Outpatient (CLI) | payer OTHER, MEDICARE, SELFPAY ==
[2020-11-27 11:52] VITALS: BMI 48.2
--- NOTE | 2021-04-24 11:38 | DI.RAD.S_ITS ---
PROCEDURE: XR LUMBAR SPINE 2-3V INDICATIONS: low back pain 18 months post spinal fusion TECHNIQUE: 2 views of the lumbar spine were acquired. COMPARISON: [facility], , L-SPINE 2-3 VIEWS, 10/21/2013, 12:21. FINDINGS: Bones: 6 [id number] vertebrae are present. Numbering however is based on the prior MRI scan with the lowest lumbar type vertebrae labeled as L5. Posterior element fixation hardware with discectomy at L4-5. Facet arthrosis at L5-S1. No evidence of hardware compromise. No traumatic subluxation. No vertebral body compression fractures. No suspicious bony lesions. Soft tissues: Overlying bowel gas pattern is normal. No suspicious soft tissue calcifications. IMPRESSION: Postsurgical change of the lumbar spine as detailed above. Dictated by: Rogelio Chao M.D. on 04/24/2021 at 15:03 Approved by: Rogelio Chao M.D. on 04/24/2021 at 15:28
== END ==
PROVIDERS: PCP Family Medicine; Referring Provider Family Medicine; Visit Provider Family Medicine
DX: M47.817 Spondylosis without myelopathy or radiculopathy, lumbosacral region (principal); M54.50 Low back pain, unspecified; Z98.1 Arthrodesis status
CPT/HCPCS: 72100

== ENCOUNTER 2021-04-26 16:42 | Emergency (ER) | payer OTHER, MEDICARE, SELFPAY ==
[2020-11-27 11:52] VITALS: BMI 48.2
[2021-04-26] VITALS (11 sets, daily range): BP systolic 117–143; BP diastolic 56–81; PULSE 98–132; RESP 16–17; TEMP 36.2; O2SAT 91–99; BMI 48.2
--- NOTE | 2021-04-26 19:31 | ED.BACK ---
HPI - Back Pain/Injury General Chief Complaint: Back Pain/Injury Stated Complaint: LOWER BACK PAIN Time Seen by Provider: 04/26/21 19:14 Source: patient Limitations: no limitations History of Present Illness HPI Narrative: 40-year-old female daily smoker with history of blood clots on anticoagulants, prior back surgeries and diabetes presents with her significant other and a chief complaint of severe midline lower back pain that started rather suddenly a few days ago. She denies any specific injury or overuse. She denies any radiation of her pain. She has no loss of control of bowel or bladder and denies any numbness, tingling or weakness. She has had no fever or chills. She denies any chest pain or shortness of breath. She states the pain feels quite similar to how she had felt previously, prior to her back surgeries. Her pain is worse when she moves and improves with rest Related Data Home Medications Medication Instructions Recorded Confirmed acetaminophen 500 mg tablet 2,000 mg PO BID tab 09/23/18 04/26/21 (Tylenol Extra Strength) magnesium 250 mg tablet 500 mg PO DAILY 06/29/19 04/26/21 fluticasone 100 mcg-salmeterol 50 1 puff INHALATION BID 07/11/19 04/26/21 mcg/dose blistr powdr for inhalation (Advair Diskus) buprenorphine 5.7 mg-naloxone 1.4 2.5 tab SUBLINGUAL DAILY 12/29/19 04/26/21 mg sublingual tablet (Zubsolv) albuterol sulfate 90 mcg/actuation 1 puff INHALATION BID 01/07/21 04/26/21 aerosol inhaler ferrous sulfate 325 mg (65 mg 325 mg PO DAILY 01/07/21 04/26/21 iron) tablet aripiprazole 30 mg tablet 30 mg PO DAILY 04/26/21 04/26/21 cyclobenzaprine 10 mg tablet 10 mg PO BID 04/26/21 04/26/21 levothyroxine 50 mcg tablet 50 mcg PO QAM 04/26/21 04/26/21 metformin 500 mg tablet 1,000 mg PO BIDAC 04/26/21 04/26/21 omeprazole 20 mg capsule,delayed 20 mg PO BID 04/26/21 04/26/21 release rivaroxaban 20 mg tablet 20 mg PO QPM 04/26/21 04/26/21 Previous Rx's Medication Instructions Recorded lancets 33 gauge (Easy Touch Twist #100 each 12/08/18 Lancets) TENS units #1 each 02/09/19 Compressioin Stockings #1 ea 10/13/19 terazosin 2 mg capsule 2 mg PO BEDTIME #14 cap 02/29/20 pregabalin 150 mg capsule 150 mg PO BID #60 cap 06/08/20 Liv[facility] Blood Glucose Test Strips #180 ea 08/10/20 furosemide 40 mg tablet See Rx Instructions .ROUTE 04/05/21 .COMPLEX #135 tab doxepin 75 mg capsule 150 mg PO BEDTIME #60 cap 04/08/21 spironolactone 25 mg tablet 12.5 mg PO DAILY #30 tab 04/16/21 cyclobenzaprine 10 mg tablet 10 mg PO TID PRN #14 tab 04/26/21 hydrocodone 5 mg-acetaminophen 325 1 tab PO Q4-6H PRN #10 tab 04/26/21 mg tablet Allergies Allergy/AdvReac Type Severity Reaction Status Date / Time carisoprodol [CARISOPRODOL] AdvReac Severe urinary Verified 04/26/21 17:01 retention fosphenytoin AdvReac Severe Seizures Verified 04/26/21 17:01 Review of Systems Review of Systems Narrative: GENERAL: Denies chills, fatigue, malaise, fever, sweats. HEENT: Denies sinus pain, ear pain, sore throat, difficulty swallowing, dizziness. RESPIRATORY: Denies dyspnea, cough, wheezing, hemoptysis, sputum. CARDIOVASCULAR: Denies chest pain, palpitations, orthopnea, edema, GASTROINTESTINAL: Denies nausea, vomiting, abdominal pain, diarrhea, constipation, melena. : Denies dysuria, frequency, incontinence, hematuria, urinary retention. MUSCULOSKELETAL: See HPI SKIN: Denies rash, skin lesions, or other NEUROLOGIC: Denies weakness, headache, numbness, change in speech, confusion, seizures, incoordination. PSYCHIATRIC: No concerning psychosocial issues. 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) Morbid obesity Narcotic habituation, continuous Nocturnal hypoxemia Obstipation LYLA (obstructive sleep apnea) Ovarian cyst Plantar fasciitis Psychogenic nonepileptic seizure Pulmonary embolism RBBB (right bundle branch block) Sinus tachycardia Status post laminectomy (12/14/15) Suicide attempt Tobacco abuse Tylenol overdose Urinary retention Surgical History History of carpal tunnel repair (~10/30/14) History of colonoscopy History of esophagogastroduodenoscopy (EGD) History of laminectomy History of laminectomy (~09/2016) History of lumbar spinal fusion (12/22/18) Hx of toe surgery (05/16/20) S/P epidural steroid injection (11/2013) Status post dilation and curettage (2008) Family History Grandfather Diabetes mellitus Family/Other Pancreatic cancer Social History household members: spouse Smoking Status: Current every day smoker alcohol intake: current eating out: 1-3 times/week Type(s) of exercise: normal ROM and activity and sedentary lifestyle Smoking Status: Current every day smoker tobacco type: cigarettes alcohol intake frequency: holidays/special occasions only Substance Use Type: does not use Exam Narrative Exam Narrative: GENERAL: [40 year old patient appears stated age. Well-developed patient, in mild distress. HEAD: Atraumatic. Normocephalic. EYES: Pupils equal round and reactive. Extraocular motions intact. No scleral icterus. No injection or drainage. ENT: Nose without bleeding, purulent drainage. Throat without erythema, tonsillar hypertrophy or exudate. Airway patent. NECK: Trachea midline. Non tender CARDIOVASCULAR: Regular rate and rhythm without murmurs, gallops, or rubs. RESPIRATORY: Clear to auscultation. Breath sounds equal bilaterally. No wheezes, rales, or rhonchi. GASTROINTESTINAL: Abdomen soft, non-tender, nondistended. EXTREMITIES: No edema or joint tenderness. BACK: Patient has some mild midline back pain, no swelling, erythema or induration. No Saddle anesthesia. Bilateral patellar reflexes 1+. Bilateral lower extremity muscle strength 5/5. NEURO: AOx3. SKIN: No rash or erythema of visible areas Initial Vital Signs Initial Vital Signs: Vital Signs Temperature 97.1 F L 04/26/21 16:55 Pulse Rate 120 H 04/26/21 16:55 Respiratory Rate 16 04/26/21 16:55 Blood Pressure 133/75 04/26/21 16:55 Pulse Oximetry 99 04/26/21 16:55 Course Orders Ordered: Discontinued Medications Hydrocodone Bitart/Acetaminophen (Hydrocodone/Acet 5/325 Prepack) 1 bottle MISC SEEINSTR ONE Stop: 04/26/21 22:14 Last Admin: 04/26/21 22:21 Dose: 1 bottle Documented by: GAY Cyclobenzaprine HCl (Cyclobenzaprine 10 Mg Prepack) 1 bottle MISC SEEINSTR ONE Stop: 04/26/21 22:14 Last Admin: 04/26/21 22:21 Dose: 1 bottle Documented by: GAY Fentanyl (Fentanyl 100 Mcg/2 Ml Inj) 100 mcg IV NOW ONE Stop: 04/26/21 19:42 Last Admin: 04/26/21 20:23 Dose: 100 mcg Documented by: ANGEL Ketorolac Tromethamine (Ketorolac 30 Mg/Ml Vial) 15 mg IV NOW ONE Stop: 04/26/21 22:14 Last Admin: 04/26/21 22:20 Dose: 15 mg Documented by: GAY Vital Signs Vital signs: Vital Signs - 8 hr 04/26/21 16:55 04/26/21 19:14 04/26/21 19:15 Temperature 97.1 F L Pulse Rate 120 H 132 H 122 H Respiratory Rate 16 17 Blood Pressure 133/75 143/73 H Pulse Oximetry 99 96 95 04/26/21 19:30 04/26/21 20:00 04/26/21 20:01 Temperature Pulse Rate 112 H 108 H 108 H Respiratory Rate Blood Pressure 137/73 117/56 L Pulse Oximetry 96 95 95 04/26/21 20:30 04/26/21 20:32 Temperature Pulse Rate 100 H 103 H Respiratory Rate Blood Pressure 131/70 Pulse Oximetry 92 91 MDM - Back Pain/Injury Lab Data Result diagrams: 04/26/21 20:15 04/26/21 20:15 Labs: Lab Results 04/26/21 04/26/21 Range/Units 20:15 20:15 WBC 7.4 (4.5-11.0) X10^3/uL RBC 4.09 (4.0-5.2) X10^6/uL Hgb 10.9 L (12.0-16.0) g/dL Hct 33.1 L (36-46) % MCV 80.9 (80-100) fL MCH 26.6 (26-34) PG MCHC 32.9 (30-36) % RDW 15.1 H (11.6-14.8) % Plt Count 331 (150-400) X10^3/uL Neut % (Auto) 68.7 (50-75) % Lymph % (Auto) 21.5 L (25-40) % Phillips % (Auto) 7.4 (3-14) % Eos % (Auto) 1.9 L (2-4) % Baso % (Auto) 0.5 (0-2) % Neut # (Auto) 5100 (7614-1024) /uL Lymph # (Auto) 1600 (4352-5771) /uL Phillips # (Auto) 500 (0-900) /uL Eos # (Auto) 100 (0-450) /uL Baso # (Auto) 0 (0-100) /uL Sodium 141 (137-145) mmol/L Potassium 3.9 (3.4-5.1) mmol/L Chloride 99 (98-107) mmol/L Carbon Dioxide 35 H (22-32) mmol/L BUN 11 (7-17) mg/dL Creatinine 0.62 (0.52-1.04) mg/dL Estimated GFR > 60.0 (>60) mL/min BUN/Creatinine Ratio 17.7 (6-22) Glucose 128 H (70-100) mg/dL Calcium 9.6 (8.4-10.2) mg/dL [facility] Narrative Medical decision making narrative: Patient with very reassuring history and physical exam. Multiple etiologies of back pain considered including; Epidural abscess, cauda equina, mass occupying lesion, and other considered, however no suggestion of neurosurgical emergency found. Given her use of anticoagulants imaging was acquired and demonstrates no hematoma. Her pain is well controlled, no evidence of a neuro surgical emergency. Return precautions discussed and questions answered to her apparent satisfaction Discharge Plan Departure Patient Disposition: Home Clinical Impression: Back pain, Lumbar back pain Instructions: DI for Low Back Pain Activity Restrictions/Additional Instructions: *You have been diagnosed with [low back pain without evidence of fracture, hematoma or infection. *What to do: *Please continue to take your regular medications as directed. [x ] New medication prescriptions sent to your pharmacy: [[facility] [place]] [ ] New medication written as a paper prescription [ ] No new medications given *Please follow up with your primary care provider in 2-3 days, call for an appointment. Let them know you were seen in the Emergency Department and that we ask that you be seen in follow up. We will electronically transmit a record of today's note if your PCP is in our system *Return to Emergency Department if you should have any new, worsening or concerning symptoms, such as [fever greater than 101 F, shaking chills, worsening pain, persistent vomiting or other bothersome symptoms] You have been prescribed a short course of narcotic medications. These are potentially dangerous and addictive medications that should be used carefully. While on these medications you cannot drive or operate heavy machinery. Additionally, you cannot sign legal documents or perform any duties such as this. Many people get constipated on narcotic medications so it would be advisable to discuss stool softeners with the pharmacist when you fruit or nut picker your prescription. Please understand that we cannot provide further refills of narcotics or controlled substances through the ED and your pain management will need to be through your Primary Care Provider Prescriptions: New cyclobenzaprine 10 mg tablet 10 mg PO TID PRN (Reason: muscle spasm) Qty: 14 0RF hydrocodone-acetaminophen 5-325 mg tablet 1 tab PO Q4-6H PRN (Reason: pain) Qty: 10 0RF No Action (DME) lancets [Easy Touch Twist Lancets] 33 gauge misc See Dose Instructions .ROUTE .MEDSUPPLY Qty: 100 3RF Dose Instruction: As directed Rx Instructions: test qd 90 min after meal (DME) TENS units device See Rx Instructions .ROUTE .MEDSUPPLY Qty: 1 0RF Rx Instructions: As directed doxepin 75 mg capsule 150 mg PO BEDTIME Qty: 60 0RF Rx Instructions: Take 2 caps (150mg) at bedtime (DME) Compressioin Stockings Qty: 1 0RF Rx Instructions: As directed pregabalin 150 mg capsule 150 mg PO BID Qty: 60 3RF Rx Instructions: take 1 capsule by mouth twice a day (DME) [facility] Blood Glucose Test Strips See Rx Instructions .Route .MEDSUPPLY Qty: 180 3RF Rx Instructions: Use to test blood glucose twice daily, fasting a 2hrs post prandial furosemide 40 mg tablet See Rx Instructions .ROUTE .COMPLEX Qty: 135 1RF Dose Instruction: TAKE 2 AND 1/2 TABLETS BY MOUTH EVERY MORNING Rx Instructions: TAKE 2 AND 1/2 TABLETS BY MOUTH EVERY MORNING and 2 TABS EVERY EVENING FOR A TOTAL OF 180MG DAILY spironolactone 25 mg tablet 12.5 mg PO DAILY Qty: 30 0RF acetaminophen [Tylenol Extra Strength] 500 mg tablet 2,000 mg PO BID 0RF fluticasone propion-salmeterol [Advair Diskus] 100-50 mcg/dose blister with device 1 puff INHALATION BID 0RF Label Comments: inhale 1 puff by mouth and INTO THE LUNGS twice a day Rinse mouth...(REFER TO PRESCRIPTION NOTES). Zubsolv 5.7-1.4 mg Tablet, Sublingual 2.5 tab SUBLINGUAL DAILY 0RF ferrous sulfate 325 mg (65 mg iron) Tablet 325 mg PO DAILY 0RF albuterol sulfate 90 mcg/actuation HFA aerosol inhaler 1 puff INHALATION BID 0RF Rx Instructions: 1-2 puffs every 2-4 hours as needed magnesium 250 mg Tablet 500 mg PO DAILY 0RF terazosin 2 mg capsule 2 mg PO BEDTIME Qty: 14 0RF cyclobenzaprine 10 mg tablet 10 mg PO BID 0RF metformin 500 mg tablet 1,000 mg PO BIDAC 0RF omeprazole 20 mg capsule,delayed release(DR/EC) 20 mg PO BID 0RF levothyroxine 50 mcg tablet 50 mcg PO QAM 0RF aripiprazole 30 mg tablet 30 mg PO DAILY 0RF rivaroxaban 20 mg tablet 20 mg PO QPM 0RF Rx Instructions: must administer with evening meal Referrals: Alejandra Lynch MD [Primary Care Provider] -
--- NOTE | 2021-04-26 19:38 | DI.CT.S_ITS ---
PROCEDURE: CT LUMBAR SPINE W CON INDICATIONS: severe sudden lumbar pain, on anticoagulation TECHNIQUE: After the administration of intravenous Isovue contrast, 3 mm thick sections acquired through the levels of interest. Sagittal and coronal reformats were then constructed. For radiation dose reduction, the following was used: automated exposure control. COMPARISON: None. FINDINGS: Image quality: Excellent. Bones: Remote posterior lateral fusion and interbody fusion at L4-L5. No acute compression fractures. Disc bulge at L3-L4 without canal stenosis. Soft tissues: Unremarkable. IMPRESSION: No evidence of acute bony abnormality of the lumbar spine. Postsurgical changes. Otherwise unremarkable. Dictated by: Sergio Galvez M.D. on 04/26/2021 at 21:58 Approved by: Sergio Galvez M.D. on 04/26/2021 at 22:01
[2021-04-26] MEDS: fentaNYL 100 MCG/2 ML INJ IV (20:23)
[2021-04-26 20:24] LABS: Add Manual Diff / Slide Review NO; Basophils Absolute Auto 0 /uL (0-100); Basophils Percent Auto 0.5 % (0-2); Eosinophils Absolute Auto 100 /uL (0-450); Eosinophils Percent Auto 1.9 % (2-4); Hematocrit 33.1 % (36-46); Hemoglobin 10.9 g/dL (12.0-16.0); Lymphocytes Absolute Auto 1600 /uL (1100-4500); Lymphocytes Percent Auto 21.5 % (25-40); Mean Corpuscular HGB Conc 32.9 % (30-36); Mean Corpuscular Hemoglobin 26.6 PG (26-34); Mean Corpuscular Volume 80.9 fL (80-100); Monocytes Absolute Auto 500 /uL (0-900); Monocytes Percent Auto 7.4 % (3-14); Neutrophils Absolute Auto 5100 /uL (1500-7000); Neutrophils Percent Auto 68.7 % (50-75); Platelet Count 331 X10^3/uL (150-400); Red Blood Cell Count 4.09 X10^6/uL (4.0-5.2); Red Cell Distribution Width 15.1 % (11.6-14.8); White Blood Cell Count 7.4 X10^3/uL (4.5-11.0)
[2021-04-26 20:35] LABS: BUN Creatinine Ratio 17.7 (6-22); Blood Urea Nitrogen 11 mg/dL (7-17); Calcium 9.6 mg/dL (8.4-10.2); Carbon Dioxide 35 mmol/L (22-32); Chloride 99 mmol/L (98-107); Estimated Glomerular Filt Rate > 60.0 mL/min (>60); Glucose 128 mg/dL (70-100); HEMOLYSIS < 15 (0-50); Potassium 3.9 mmol/L (3.4-5.1); Sodium 141 mmol/L (137-145)
[2021-04-26] MEDS: KETOROLAC 30 MG/ML VIAL 15 MG IV (22:20)
[2021-04-26] MEDS: CYCLOBENZAPRINE 10 MG PREPACK 1 BOTTLE MISC (22:21)
[2021-04-26] MEDS: HYDROCODONE/ACET 5/325 PREPACK 1 BOTTLE MISC (22:21)
== END 2021-04-26 22:30 | disposition home or self-care (01) ==
PROVIDERS: Emergency Provider Emergency Medicine; PCP Family Medicine
DX: M54.50 Low back pain, unspecified (principal)
CPT/HCPCS: 36415; 72132; 80048; 85025; 96374; 96375; 99284; J1885; J3010; Q9967

== ENCOUNTER → 2021-07-25 14:13 | Outpatient (CLI) | payer OTHER, MEDICARE, SELFPAY ==
[2020-11-27 11:52] VITALS: BMI 48.2
[2021-07-25 14:56] LABS: COVID19 -Nasal RAPID POSITIVE (Negative)
== END ==
PROVIDERS: PCP Family Medicine; Visit Provider Specialist
DX: U07.1 COVID-19 (principal); Z01.812 Encounter for preprocedural laboratory examination; Z20.822 Contact with and (suspected) exposure to COVID-19
CPT/HCPCS: 87635

== ENCOUNTER → 2021-09-12 13:46 | Outpatient (CLI) | payer OTHER, MEDICARE, SELFPAY ==
[2020-11-27 11:52] VITALS: BMI 48.2
[2021-09-12 14:52] LABS: Hemoglobin A1C% w Est Avg Glu 6.8 % (4.0-6.0)
[2021-09-12 15:24] LABS: COVID19 -Nasal RAPID Negative (Negative)
== END ==
PROVIDERS: Specialist; PCP Family Medicine; Referring Provider Family Medicine; Visit Provider Family Medicine
DX: Z01.812 Encounter for preprocedural laboratory examination (principal); Z20.822 Contact with and (suspected) exposure to COVID-19; E11.9 Type 2 diabetes mellitus without complications
CPT/HCPCS: 36415; 83036; 87635

== ENCOUNTER 2021-09-13 07:26 | Day surgery (SDC) | payer OTHER, MEDICARE, SELFPAY ==
[2020-11-27 11:52] VITALS: BMI 48.2
[2021-09-11 09:50] VITALS: BMI 48.6
--- NOTE | 2021-09-12 15:25 | SUR.PREOP ---
09/[id number] reviewed to do pre op phone. Chart given to review meds/history with anesthesia to see what drugs to take/hold tomorrow.
[2021-09-13] VITALS (14 sets, daily range): BP systolic 128–171; BP diastolic 76–101; PULSE 101–134; RESP 13–27; TEMP 36.1–36.6; O2SAT 91–98; BMI 48.6
--- NOTE | 2021-09-13 | PATH_ITS ---
[facility] Accession Number: [id number] . 01 Material submitted: . endometrium - ENDOMETRIAL BIOPSY . 02 Diagnosis: Endometrial Biopsy: Portions of secretory endometrium; negative for glandular hyperplasia, cytologic atypia, or malignancy. Occasional portions of myometrium; negative for atypia or malignancy. Avulsed portions of squamous mucosa; negative for squamous dysplasia or malignancy. MRV 09/18/2021 1307 Local . 02 Electronically signed: . Janis Romeo MD, Pathologist NPI- [id number] . 01 Gross description: . ENDOMETRIAL BIOPSY: Received in formalin are minute fragments of mucoid and hemorrhagic material measuring 3.0 x 3.0 x 0.4 cm in aggregate. Submitted in toto in 2 cassettes. /KEMAR 09/16/20212 Local . 02 Pathologist provided ICD-10: R93.89 . 02 CPT . 508881 Specimen Comment: A courtesy copy of this report has been sent to [phone] Performed at: 01 [facility] [address], [place], [place] [id number] MD Gustavo Dorsey MD Phone: [phone] Performed at: 02 [facility] [address] [place], [place] [id number] MD Lorie Cook MD Phone: [phone]
[2021-09-13] MEDS: LACTATED RINGERS 1,000 ML 42 ML IV (08:17)
--- NOTE | 2021-09-13 08:45 | PM.PREOP ---
Pre-operative Note COVID-19 COVID-19 status: Negative Result date/Date tested (Pos, Neg/Pending): 09/12/21 Criteria for continued procedure: Expected advancement of disease process Interval Note History & Physical reviewed/Exam performed by Physician: Yes Changes to H&P: No
[2021-09-13] MEDS: ALBUTEROL 2.5 MG/3 ML NEB (ADULT) INH (09:21)
--- NOTE | 2021-09-13 09:24 | PM.GYNHP.1 ---
History of Present Illness History of Present Illness Reason for admission: vaginal bleeding Narrative: Nuvia Alvarado is a 40 year old female admitted for outpatient hysteroscopy D&C for menorrhagia [facility] Medical History Acetaminophen overdose of undetermined intent (12/2015) Alcoholism 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 Asthma Cubital tunnel syndrome DM type 2 (diabetes mellitus, type 2) DVT (deep venous thrombosis) Essential hypertension Fibromyalgia (03/02/15) Hypoxia Intraoperative cardiac arrest during non-cardiac surgery (11/2013) 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) Morbid obesity Narcotic habituation, continuous Nocturnal hypoxemia Obstipation LYLA (obstructive sleep apnea) Ovarian cyst Plantar fasciitis Psychogenic nonepileptic seizure Pulmonary embolism RBBB (right bundle branch block) Sinus tachycardia Status post laminectomy (12/14/15) Suicide attempt Tobacco abuse Tylenol overdose Urinary retention Surgical History History of carpal tunnel repair (~10/30/14) History of colonoscopy History of esophagogastroduodenoscopy (EGD) History of laminectomy History of laminectomy (~09/2016) History of lumbar spinal fusion (12/22/18) Hx of toe surgery (05/16/20) S/P epidural steroid injection (11/2013) Status post dilation and curettage (2008) Family History Grandfather Diabetes mellitus Family/Other Pancreatic cancer Social History household members: spouse Smoking Status: Current every day smoker alcohol intake: current eating out: 1-3 times/week Type(s) of exercise: normal ROM and activity and sedentary lifestyle Meds Home Medications and Allergies Home Medications Medication Instructions Recorded Confirmed Type acetaminophen 500 mg tablet 2,000 mg PO BID tab 09/23/18 09/13/21 History (Tylenol Extra Strength) lancets 33 gauge (Easy Touch Twist #100 each 12/08/18 07/23/21 Rx Lancets) TENS units #1 each 02/09/19 07/23/21 Rx magnesium 250 mg tablet 500 mg PO DAILY 06/29/19 09/13/21 History fluticasone 100 mcg-salmeterol 50 1 puff INHALATION BID 07/11/19 09/13/21 History mcg/dose blistr powdr for inhalation (Advair Diskus) Compressioin Stockings #1 ea 10/13/19 07/23/21 Rx terazosin 2 mg capsule 2 mg PO BEDTIME #14 cap 02/29/20 09/13/21 Rx pregabalin 150 mg capsule 150 mg PO BID #60 cap 06/08/20 09/13/21 Rx [facility] Blood Glucose Test Strips #180 ea 08/10/20 07/23/21 Rx albuterol sulfate 90 mcg/actuation 1 puff INHALATION BID 01/07/21 09/13/21 History aerosol inhaler ferrous sulfate 325 mg (65 mg 325 mg PO DAILY 01/07/21 09/13/21 History iron) tablet doxepin 150 mg capsule 150 mg PO BEDTIME #30 cap 05/10/21 09/13/21 Rx omeprazole 20 mg capsule,delayed 20 mg PO BID #60 cap 05/29/21 09/13/21 Rx release cyclobenzaprine 10 mg tablet 10 mg PO TID PRN #60 tab 06/07/21 09/13/21 Rx spironolactone 25 mg tablet 12.5 mg PO DAILY #30 tab 06/24/21 09/13/21 Rx rivaroxaban 20 mg tablet (Xarelto) See Rx Instructions .ROUTE 07/08/21 09/13/21 Rx .COMPLEX #30 tablet hydrocodone 5 mg-acetaminophen 325 1 tab PO Q4-6H PRN #10 tab 07/23/21 09/11/21 Rx mg tablet furosemide 40 mg tablet See Rx Instructions .ROUTE 08/07/21 09/13/21 Rx .COMPLEX #135 tab levothyroxine 50 mcg tablet See Rx Instructions .ROUTE 08/16/21 09/13/21 Rx .COMPLEX #90 tablet aripiprazole 30 mg tablet 30 mg PO DAILY #30 tab 08/22/21 09/13/21 Rx metformin 500 mg tablet See Rx Instructions .ROUTE 09/05/21 09/13/21 Rx .COMPLEX #120 tab Allergies Allergy/AdvReac Type Severity Reaction Status Date / Time carisoprodol [CARISOPRODOL] AdvReac Severe urinary Verified 07/23/21 10:22 retention fosphenytoin AdvReac Severe Seizures Verified 07/23/21 10:22 Latex, Natural Rubber AdvReac Mild Rash Verified 07/23/21 10:22 Exam Vital Signs (past 8 hours): - 09/13/21 07:50 Temperature 97.7 F Pulse Rate 134 H Respiratory Rate 22 Blood Pressure 148/88 H Pulse Oximetry 98 Oxygen Delivery Method Room Air Narrative Exam Narrative: ? Preoperative diagnosis:? Menorrhagia Planned procedure:? Hysteroscopy D&C HPI: Patient is a 40-year-old SAB 1 with multiple medical problems currently on a blood thinner complaining of menorrhagia.? Her periods are usually 7 days long and she changes her pads every 2-3 hours.? Would like to conceive but she realizes that is very unlikely.? Patient states she has had heavy period most of her life.? She has never taken control.? Patient states she is current with Pap smears.? Patient was found to have a thickened endometrium on ultrasound.? Due to her high BMI the exam was limited.? Patient had no improvement of her bleeding with Provera therapy. was made to proceed with hysteroscopy D&C to rule out endometrial carcinoma and possibly treat menorrhagia. On physical exam:? HEENT exam within normal limits.? Lungs are clear to auscultation and percussion.? Heart is regular rate and rhythm no S3-S4 murmurs.? Abdomen is obese.? Repeat pelvic exam was not performed.? Handout on hysteroscopy D&C reviewed with patient.? Patient did have episode in her chart that states she had a cardiac arrest on the operating room table when she was having carpal tunnel surgery.? She states that she did meet with a multicultural services librarian and they think that she was just over medicated for her procedure and did not have cardiac problems.? Patient has had DVTs and pulmonary embolus so is on blood thinners chronically now.? Risk of infection, bleeding, perforation of uterus that could result in damage to internal structures such as bowel, bladder, ureters that could require opening the abdomen to repair or additional surgery.? Continued bleeding after the procedure.? Patient is aware if she has cancer precancer cells she will need a hysterectomy.? Consent form signed and questions answered. Assessment & Plan Assessment and plan (1) Preoperative exam for gynecologic surgery: Status: Acute (2) Endometrial thickening on ultrasound: Status: Acute (3) Menorrhagia with regular cycle: Status: Acute Assessment & Plan narrative: Hysteroscopy D&C for menorrhagia and thickened endometrium on ultrasound COVID-19 COVID-19 status: Negative Result date/Date tested (Pos, Neg/Pending): 09/13/21 Time Spent With Patient Time with patient: less than 30 minutes Critical Care time: I spent a total of [] minutes of critical care time on this patient's care today; this time is exclusive of procedural time.
--- NOTE | 2021-09-13 10:19 | SUR.OPER ---
Lithotomy on padded OR bed, Anesthesia used Wedge torso positioner and head on pillow, arms secured on padded arm boards at <90 degrees abduction. Legs secured in padded yellow fins stirrups. [place] on folded blankets and gel pads for support then secured to arm boards.
--- NOTE | 2021-09-13 10:44 | PM.OP.1 ---
Operative Date/Time/Diagnoses Date of procedure: 09/13/21 Time of procedure: 10:44 Pre-op diagnosis: Menorrhagia Post-op diagnosis: same Procedure & Clinicians Procedure: Hysteroscopy D&C with endometrial biopsies Same procedure as scheduled: Yes Indications: Menorrhagia with thickened endometrium on ultrasound Surgeon: Bridget Hargrove Click Yes if Unassisted: Yes Anesthesia Type: General Operative Notes Findings: Thickened endometrium with possible polyps Closure Type: not applicable Specimen(s): other (Endometrial biopsy) Estimated Blood Loss (mL): 10 Blood products transfused: none Procedure in detail: The patient was brought to the operating room where she underwent general anesthesia. She was placed in low stirrups She was prepped and draped in usual sterile fashion with pulsatile stockings in place and functional, warming in place. No antibiotics indicated. Her bladder was drained with in and out catheter. A single-tooth tenaculum was placed on the anterior lip of the cervix and the uterus dilated to #8 Hegar dilator. The hysteroscope was placed into the uterus with a sorbitol solution running and under constant suction. The resecting loop set at 80 W of cutting was used to resect polyps down to the level of the endometrium. A endometrial curettage was performed. The polyps and the endometrial curettage was sent to pathology. The patient went to recovery room in good condition counts of instruments and sponges were correct. The sorbitol solution I=O approximately 4000 mL. Complications: none Post-operative Condition: stable Disposition: same day surgery Plan for aftercare: Home when awake and stable
[2021-09-13] MEDS: ONDANSETRON 4 MG/2 ML INJ IV (10:53)
[2021-09-13] MEDS: HYDROMORPHONE 2 MG INJ IV ×2 (11:01→11:11)
[2021-09-13] MEDS: ACETAMINOPHEN 325 MG TABLET 975 MG PO (11:25)
--- NOTE | 2021-09-13 11:28 | SUR.PHASEI ---
Nausea resolved, applesauce given prior to po med. Pain improved to 2/10
--- NOTE | 2021-09-13 11:45 | SUR.PHASEI ---
Right foot shaking side to side, patient reports that she was doing that in pre-op. Denies that has not been a part of her seizure history
--- NOTE | 2021-09-13 12:09 | SUR.PHASEII ---
Assumed care of pt, pt brought to bay [facility] in [facility]. Ride updated, pt to stay to be more wakeful. Placed on continuous pulse ox and on 1L of nasal cannula. Sats 95%.. Call brody in reach. Taking sips of clears.
--- NOTE | 2021-09-13 13:23 | SUR.PHASEII ---
Pt successfully weaned off 02, maintained room air sats of 95%. Wishing to dress. Assisted per pt request. Minimal vaginal drainage. Called ride, ride unavailable till 1330.
== END 2021-09-13 13:30 | disposition home or self-care (01) ==
PROVIDERS: PCP Family Medicine; Referring Provider Specialist; Visit Provider Specialist
PROC: 0UDB8ZZ Extraction of Endometrium, Via Natural or Artificial Opening Endoscopic (ICD-10-PCS; CPT 58558; principal; 2021-09-13 09:15)
DX: N92.0 Excessive and frequent menstruation with regular cycle (principal); R93.89 Abnormal findings on diagnostic imaging of other specified body structures
CPT/HCPCS: 58558; 81025; 82962; J1100; J1170; J2250; J2405; J2704; J3010; J7613

== ENCOUNTER → 2021-10-03 11:58 | Outpatient (CLI) | payer OTHER, MEDICARE, SELFPAY ==
[2020-11-27 11:52] VITALS: BMI 48.2
[2021-10-03 13:07] LABS: Add Manual Diff / Slide Review NO; Basophils Absolute Auto 0 /uL (0-100); Basophils Percent Auto 0.6 % (0-2); Eosinophils Absolute Auto 200 /uL (0-450); Eosinophils Percent Auto 3.2 % (2-4); Hematocrit 36.4 % (36-46); Hemoglobin 11.6 g/dL (12.0-16.0); Lymphocytes Absolute Auto 1500 /uL (1100-4500); Lymphocytes Percent Auto 19.3 % (25-40); Mean Corpuscular Hemoglobin 25.8 PG (26-34); Mean Corpuscular Volume 80.9 fL (80-100); Monocytes Absolute Auto 500 /uL (0-900); Neutrophils Absolute Auto 5400 /uL (1500-7000); Neutrophils Percent Auto 69.9 % (50-75); Platelet Count 238 X10^3/uL (150-400); Red Cell Distribution Width 15.6 % (11.6-14.8); White Blood Cell Count 7.7 X10^3/uL (4.5-11.0)
[2021-10-03 13:31] LABS: BUN Creatinine Ratio 15.1 (6-22); Blood Urea Nitrogen 8 mg/dL (7-17); Calcium 9.6 mg/dL (8.4-10.2); Carbon Dioxide 29 mmol/L (22-32); Chloride 105 mmol/L (98-107); Cholesterol 173 mg/dL (140-199); Estimated Glomerular Filt Rate > 60 mL/min (>60); Glucose 144 mg/dL (70-100); HDL Cholesterol 36 mg/dL (40-60); HEMOLYSIS < 15 (0-50); LDL Cholesterol Calculated 72 mg/dL (<100); Potassium 4.2 mmol/L (3.4-5.1); Sodium 141 mmol/L (137-145); Triglycerides 326 mg/dL (35-150)
[2021-10-03 13:57] LABS: TSH w/ Reflex to FT4 0.35 uIU/mL (0.47-4.68)
[2021-10-03 14:29] LABS: Free T4, Direct Thyroxine 1.13 ng/dL (0.78-2.19)
== END ==
PROVIDERS: PCP Family Medicine; Referring Provider Nurse Practitioner Acute Care; Visit Provider Nurse Practitioner Acute Care
DX: I10 Essential (primary) hypertension (principal); R42 Dizziness and giddiness; I27.29 Other secondary pulmonary hypertension; G47.33 Obstructive sleep apnea (adult) (pediatric); E11.9 Type 2 diabetes mellitus without complications; R00.0 Tachycardia, unspecified
CPT/HCPCS: 36415; 80048; 80061; 84439; 84443; 85025

== ENCOUNTER → 2021-10-30 16:35 | Outpatient (CLI) | payer OTHER, MEDICARE, SELFPAY ==
[2020-11-27 11:52] VITALS: BMI 48.2
--- NOTE | 2021-10-30 16:37 | DI.RAD.S_ITS ---
PROCEDURE: XR WRIST LT MIN 3V INDICATIONS: Left wrist pain TECHNIQUE: 3 views of the wrist were acquired. COMPARISON: None. FINDINGS: Bones: No fractures or dislocations. No suspicious bony lesions. Soft tissues: No suspicious soft tissue calcifications. IMPRESSION: No evidence acute bony abnormality of the left wrist. If clinical suspicion and/or symptoms persist, further assessment with repeat plain films, or advanced imaging (e.g., CT, MRI, or bone scan) may be helpful for further assessment. Dictated by: Sergio Galvez M.D. on 10/30/2021 at 17:23 Approved by: Sergio Galvez M.D. on 10/30/2021 at 17:23
== END ==
PROVIDERS: PCP Family Medicine; Referring Provider Family Medicine; Visit Provider Family Medicine
DX: M25.532 Pain in left wrist (principal)
CPT/HCPCS: 73110

== ENCOUNTER 2021-12-16 17:57 | Emergency (ER) | payer OTHER, MEDICARE, SELFPAY ==
[2020-11-27 11:52] VITALS: BMI 48.2
[2021-12-16 17:59] VITALS: BP 166/89; PULSE 118; RESP 22; TEMP 36.7; O2SAT 97
--- NOTE | 2021-12-16 18:09 | DI.US.S_ITS ---
PROCEDURE: US PERIP VENOUS LOW EXTREM LT INDICATIONS: lt lower leg pain/swelling hx of dvt TECHNIQUE: Real-time imaging, as well as color and pulse Doppler interrogation, were performed of the lower extremity deep veins from the inguinal ligament to the popliteal fossa. COMPARISON: [facility], , [facility] VENOUS LOW EXTREM LT, 02/16/2020, 14:32. FINDINGS: The common femoral, femoral and popliteal veins are normally compressible, and free of intraluminal thrombus. Color and pulse Doppler demonstrate normal phasic intraluminal flow. There is normal augmentation response to distal compression maneuver. IMPRESSION: Negative for deep venous thrombosis. Dictated by: Rickie Lundberg M.D. on 12/16/2021 at 17:41 Approved by: Rickie Lundberg M.D. on 12/16/2021 at 17:42
--- NOTE | 2021-12-16 22:38 | ED_ITS ---
HPI - Extremity Injury (Lower) General Chief Complaint: Extremity Injury, Lower Stated Complaint: lower back pain/lt leg calf pain Time Seen by Provider: 12/16/21 21:50 Source: patient Mode of arrival: Ambulatory History of Present Illness HPI Narrative: 41-year-old female smoker with history of back pain, pulmonary hypertension and prior DVT on Xarelto presents with her significant other and a chief complaint of left low back pain which radiates down her left leg over the past week. She states she got a new puppy and was bending over to pick him up off of a table last week and felt a sudden pain in her left back which goes down her leg. Her pain is worse when she moves and improves with rest. She denies any numbness, tingling or weakness. She denies any loss of control of bowel or bladder. She denies any specific trauma. She is had no fever or chills. She denies any chest pain or shortness of breath. She is been taking her Xarelto as previously indicated Related Data Home Medications Medication Instructions Recorded Confirmed acetaminophen 500 mg tablet 2,000 mg PO BID 09/23/18 10/30/21 (Tylenol Extra Strength) magnesium 250 mg tablet 500 mg PO DAILY 06/29/19 10/30/21 fluticasone 100 mcg-salmeterol 50 1 puff inhalation BID 07/11/19 10/30/21 mcg/dose blistr powdr for inhalation (Advair Diskus) ferrous sulfate 325 mg (65 mg 325 mg PO DAILY Anemia 01/07/21 10/30/21 iron) tablet Previous Rx's Medication Instructions Recorded lancets 33 gauge (Easy Touch Twist #100 ea 12/08/18 Lancets) TENS units #1 ea 02/09/19 Compressioin Stockings #1 ea 10/13/19 terazosin 2 mg capsule 2 mg PO BEDTIME #14 caps 02/29/20 pregabalin 150 mg capsule 150 mg PO BID #60 caps 06/08/20 Livongo Blood Glucose Test Strips #180 ea 08/10/20 spironolactone 25 mg tablet 12.5 mg PO DAILY #30 tabs 06/24/21 rivaroxaban 20 mg tablet (Xarelto) See Rx Instructions .Route 07/08/21 .COMPLEX #30 tabs aripiprazole 30 mg tablet 30 mg PO DAILY #30 tabs 08/22/21 cyclobenzaprine 10 mg tablet See Rx Instructions .Route 09/20/21 .COMPLEX #90 tabs omeprazole 20 mg capsule,delayed See Rx Instructions .Route 10/07/21 release .COMPLEX #60 caps metformin 500 mg tablet 1,000 mg PO BID #120 tabs 10/24/21 doxepin 100 mg capsule 200 mg PO BEDTIME #60 caps 10/29/21 levothyroxine 25 mcg tablet See Rx Instructions .Route 10/30/21 .COMPLEX #30 tabs clobetasol 0.05 % topical ointment 1 applic topical BID #30 grams 11/01/21 medroxyprogesterone 10 mg tablet 20 mg PO DAILY Heavy periods #22 12/04/21 tabs furosemide 40 mg tablet See Rx Instructions .Route 12/12/21 .COMPLEX #135 tabs albuterol sulfate 90 mcg/actuation See Rx Instructions .Route 12/13/21 aerosol inhaler .COMPLEX #18 grams cyclobenzaprine 10 mg tablet 10 mg PO TID PRN muscle spasm #14 12/16/21 tabs gabapentin 300 mg capsule 300 mg PO BEDTIME #14 caps 12/16/21 methylprednisolone 4 mg tablets in See Rx Instructions PO .COMPLEX 12/16/21 a dose pack (Medrol (Tomas)) #21 ea Allergies Allergy/AdvReac Type Severity Reaction Status Date / Time carisoprodol [CARISOPRODOL] AdvReac Severe urinary Verified 10/30/21 15:37 retention fosphenytoin AdvReac Severe Seizures Verified 10/30/21 15:37 Latex, Natural Rubber AdvReac Mild Rash Verified 10/30/21 15:37 Review of Systems Review of Systems Narrative: GENERAL: Denies chills, fatigue, malaise, fever, sweats. HEENT: Denies sinus pain, ear pain, sore throat, difficulty swallowing, dizziness. RESPIRATORY: Denies dyspnea, cough, wheezing, hemoptysis, sputum. CARDIOVASCULAR: Denies chest pain, palpitations, orthopnea, edema, GASTROINTESTINAL: Denies nausea, vomiting, abdominal pain, diarrhea, constipation, melena. : Denies dysuria, frequency, incontinence, hematuria, urinary retention. MUSCULOSKELETAL: See HPI SKIN: Denies rash, skin lesions, or other NEUROLOGIC: See HPI. PSYCHIATRIC: No concerning psychosocial issues. 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 Asthma Cubital tunnel syndrome DM type 2 (diabetes mellitus, type 2) DVT (deep venous thrombosis) Essential hypertension Fibromyalgia (03/02/15) Hypoxia Intraoperative cardiac arrest during non-cardiac surgery (11/2013) 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 platemaker associated with adverse incidents (~2011) Morbid obesity Narcotic habituation, continuous Nocturnal hypoxemia Obstipation LYLA (obstructive sleep apnea) Ovarian cyst Plantar fasciitis Psychogenic nonepileptic seizure Pulmonary embolism RBBB (right bundle branch block) Sinus tachycardia Status post laminectomy (12/14/15) Suicide attempt Tobacco abuse Tylenol overdose Urinary retention Surgical History History of carpal tunnel repair (~10/30/14) History of colonoscopy History of esophagogastroduodenoscopy (EGD) History of laminectomy History of laminectomy (~09/2016) History of lumbar spinal fusion (12/22/18) Hx of toe surgery (05/16/20) S/P epidural steroid injection (11/2013) Status post dilation and curettage (2008) Family History Grandfather Diabetes mellitus Family/Other Pancreatic cancer Social History household members: spouse Smoking Status: Current every day smoker alcohol intake: current eating out: 1-3 times/week Type(s) of exercise: normal ROM and activity and sedentary lifestyle Smoking Status: Current every day smoker tobacco type: cigarettes alcohol intake frequency: a few times a week Substance Use Type: does not use Exam Narrative Exam Narrative: GENERAL: [41] year old patient appears stated age. Well-developed patient, in mild distress. HEAD: Atraumatic. Normocephalic. EYES: Pupils equal round and reactive. Extraocular motions intact. No scleral icterus. No injection or drainage. ENT: Nose without bleeding, purulent drainage. Throat without erythema, tonsillar hypertrophy or exudate. Airway patent. NECK: Trachea midline. Non tender CARDIOVASCULAR: Regular rate and rhythm without murmurs, gallops, or rubs. RESPIRATORY: Clear to auscultation. Breath sounds equal bilaterally. No wheezes, rales, or rhonchi. GASTROINTESTINAL: Abdomen soft, non-tender, nondistended. EXTREMITIES: No edema or joint tenderness. 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 Patient exam notes decreased range of motion and muscle spasm, but no CVA tenderness, or vertebral point tenderness. There are no symptoms of cauda equina such as saddle anesthesia, and decreased reflexes, decreased sensation or strength. NEURO: AOx3. SKIN: No rash or erythema of visible areas Initial Vital Signs Initial Vital Signs: Vital Signs Temperature 98.0 F 12/16/21 17:59 Pulse Rate 118 H 12/16/21 17:59 Respiratory Rate 22 12/16/21 17:59 Blood Pressure 166/89 H 12/16/21 17:59 Pulse Oximetry 97 12/16/21 17:59 Oxygen Delivery Method 12/16/21 17:59 Course Orders Ordered: Discontinued Medications Cyclobenzaprine HCl (Cyclobenzaprine 10 Mg Prepack) 1 bottle MISC SEEINSTR ONE Stop: 12/16/21 22:49 Last Admin: 12/16/21 23:06 Dose: 1 bottle Documented By: REGIS Gabapentin (Gabapentin 300 Mg Capsule) 300 mg PO NOW ONE Stop: 12/16/21 22:49 Last Admin: 12/16/21 23:06 Dose: 300 mg Documented By: REGIS Ketorolac Tromethamine (Ketorolac 30 Mg/Ml Vial) 30 mg IM NOW ONE Stop: 12/16/21 22:49 Last Admin: 12/16/21 23:06 Dose: 30 mg Documented By: REGIS Vital Signs Vital signs: Vital Signs - 8 hr 12/16/21 17:59 Temperature 98.0 F Pulse Rate 118 H Respiratory Rate 22 Blood Pressure 166/89 H Pulse Oximetry 97 Oxygen Delivery Method Room Air MDM - Extremity Injury (Lower) Imaging Data US - DVT: Radiologist's Impression: [address] [address] Ultrasound Report Signed Patient: Nuvia Alvarado MR#: [id number] : 1980 Acct:[id number] Age/Sex: 41 / F Date of Service: 12/16/21 Loc: ED Accession Number: [id number] ?? Procedure: US periph venous low extrem lt Ordering Provider: Dank Eckert D.O. PROCEDURE:? US PERIPH VENOUS LOW EXTREM LT ? INDICATIONS:? lt lower leg pain/swelling hx of dvt ? TECHNIQUE:? Real-time imaging, as well as color and pulse Doppler interrogation, were performed of the lower extremity deep veins from the inguinal ligament to the popliteal fossa.? ? COMPARISON:? [facility], PERIPH VENOUS LOW EXTREM LT, 02/16/2020, 14:32. ? FINDINGS:? The common femoral, femoral and popliteal veins are normally compressible, and free of intraluminal thrombus.? Color and pulse Doppler demonstrate normal pha sic intraluminal flow.? There is normal augmentation response to distal compression maneuver. ? ? IMPRESSION:? ? Negative for deep venous thrombosis. ? ? Dictated by: Rickie Lundberg M.D. on 12/16/2021 at 17:41 ? ? Approved by: Rickie Lundberg M.D. on 12/16/2021 at 17:42 ? MDM Narrative Medical decision making narrative: Patient with reassuring history and physical exam. Multiple etiologies of back pain considered including; Epidural abscess, cauda equina, mass occupying lesion, and other considered, however no red flag findings worrisome for a neurosurgical emergency are present. Given the pain in her calf ultrasound was performed, however she has been taking anticoagulants, she has no swelling, redness or warmth and ultrasound shows no DVT. Most likely source of pain especially given history and physical is a lumbar radiculopathy. Patient given return precautions and questions answered to her apparent satisfaction Discharge Plan Departure Patient Disposition: Home Clinical Impression: Acute left lumbar radiculopathy Instructions: DI for Lumbar Radiculopathy Activity Restrictions/Additional Instructions: *You have been diagnosed with [acute left-sided lumbar radiculopathy. As we discussed your history and physical exam is reassuring. Given your history we did an ultrasound which shows no evidence of deep vein thrombosis.] *What to do: *Please continue to take your regular medications as directed. [ x] New medication prescriptions sent to your pharmacy: [[facility] in [place] ] [ ] New medication written as a paper prescription [ ] No new medications given *Please follow up with your primary care provider in 2-3 days, call for an appointment. Let them know you were seen in the Emergency Department and that we ask that you be seen in follow up. We will electronically transmit a record of today's note if your PCP is in our system *If you do not have a primary care provider please contact the [facility] Resource line at [phone]. They will ask some questions about your medical history and help get you set up with a doctor in the community. *Return to Emergency Department if you should have any new, worsening or concerning symptoms, such as [fever greater than 101 F, shaking chills, worsening pain, persistent vomiting or other bothersome symptoms] Prescriptions: New cyclobenzaprine 10 mg tablet 10 mg PO TID PRN (Reason: muscle spasm) Qty: 14 0RF gabapentin 300 mg capsule 300 mg PO BEDTIME Qty: 14 0RF methylprednisolone [Medrol (Tomas)] 4 mg tablets,dose pack See Rx Instructions .ROUTE .COMPLEX Qty: 21 0RF Rx Instructions: orally per package directions No Action (DME) lancets [Easy Touch Twist Lancets] 33 gauge misc See Dose Instructions .ROUTE .MEDSUPPLY Qty: 100 3RF Dose Instruction: As directed Rx Instructions: test qd 90 min after meal (DME) TENS units device See Rx Instructions .ROUTE .MEDSUPPLY Qty: 1 0RF Rx Instructions: As directed levothyroxine 25 mcg tablet See Rx Instructions .ROUTE .COMPLEX Qty: 30 2RF Dose Instruction: take 1 tablet by mouth once daily Rx Instructions: take 1 tablet by mouth once daily clobetasol 0.05 % ointment 1 applic topical BID Qty: 30 2RF (DME) Compressioin Stockings Qty: 1 0RF Rx Instructions: As directed pregabalin 150 mg capsule 150 mg PO BID Qty: 60 3RF Rx Instructions: take 1 capsule by mouth twice a day (DME) Livongo Blood Glucose Test Strips See Rx Instructions .Route .MEDSUPPLY Qty: 180 3RF Rx Instructions: Use to test blood glucose twice daily, fasting a 2hrs post prandial spironolactone 25 mg tablet 12.5 mg PO DAILY Qty: 30 3RF Xarelto 20 mg tablet See Rx Instructions .ROUTE .COMPLEX Qty: 30 5RF Dose Instruction: TAKE 1 TABLET BY MOUTH DAILY WITH EVENING MEAL Rx Instructions: TAKE 1 TABLET BY MOUTH DAILY WITH EVENING MEAL aripiprazole 30 mg tablet 30 mg PO DAILY Qty: 30 2RF Rx Instructions: Take one 30mg tablet by mouth daily cyclobenzaprine 10 mg tablet See Rx Instructions .ROUTE .COMPLEX Qty: 90 1RF Dose Instruction: TAKE 1 TABLET BY MOUTH THREE TIMES DAILY NEEDED FOR MUSCLE SPASM Rx Instructions: TAKE 1 TABLET BY MOUTH THREE TIMES DAILY NEEDED FOR MUSCLE SPASM omeprazole 20 mg capsule,delayed release(DR/EC) See Rx Instructions .ROUTE .COMPLEX Qty: 60 11RF Dose Instruction: TAKE 1 CAPSULE BY MOUTH TWICE DAILY. Rx Instructions: TAKE 1 CAPSULE BY MOUTH TWICE DAILY. metformin 500 mg tablet 1,000 mg PO BID Qty: 120 11RF doxepin 100 mg capsule 200 mg PO BEDTIME Qty: 60 0RF Rx Instructions: dose increase medroxyprogesterone 10 mg tablet 20 mg PO DAILY Qty: 22 6RF Rx Instructions: Take from the the of each month furosemide 40 mg tablet See Rx Instructions .ROUTE .COMPLEX Qty: 135 0RF Dose Instruction: TAKE 2 AND 1/2 TABLETS BY MOUTH EVERY MORNING AND 2 TABLETS EVERY EVENING FOR A TOTAL OF 180 MILLIGRAMS DAILY Rx Instructions: TAKE 2 AND 1/2 TABLETS BY MOUTH EVERY MORNING AND 2 TABLETS EVERY EVENING FOR A TOTAL OF 180 MILLIGRAMS DAILY albuterol sulfate 90 mcg/actuation HFA aerosol inhaler See Rx Instructions .ROUTE .COMPLEX Qty: 18 11RF Dose Instruction: INHALE 2 PUFFS BY MOUTH EVERY 4 TO 6 HOURS NEEDED FOR SHORTNESS OF BREAT OR WHEEZING Rx Instructions: INHALE 2 PUFFS BY MOUTH EVERY 4 TO 6 HOURS NEEDED FOR SHORTNESS OF BREAT OR WHEEZING acetaminophen [Tylenol Extra Strength] 500 mg tablet 2,000 mg PO BID fluticasone propion-salmeterol [Advair Diskus] 100-50 mcg/dose blister with device 1 puff INHALATION BID Label Comments: inhale 1 puff by mouth and INTO THE LUNGS twice a day Rinse mouth...(REFER TO PRESCRIPTION NOTES). ferrous sulfate 325 mg (65 mg iron) Tablet 325 mg PO DAILY magnesium 250 mg Tablet 500 mg PO DAILY terazosin 2 mg capsule 2 mg PO BEDTIME Qty: 14 0RF Referrals: Ezekiel Nava DO [Physician] - Chiquita Martin MD [Physician] - Alejandra Lynch MD [Primary Care Provider] - Visit Report Forms: Patient Portal/API
[2021-12-16] MEDS: KETOROLAC 30 MG/ML VIAL IM (23:06)
[2021-12-16] MEDS: GABAPENTIN 300 MG CAPSULE PO (23:06)
[2021-12-16] MEDS: CYCLOBENZAPRINE 10 MG PREPACK 1 BOTTLE MISC (23:06)
== END 2021-12-16 23:06 | disposition home or self-care (01) ==
PROVIDERS: Emergency Provider Emergency Medicine; PCP Family Medicine
DX: M54.16 Radiculopathy, lumbar region (principal)
CPT/HCPCS: 93971; 96372; 99283; J1885

== ENCOUNTER 2022-01-02 15:12 | Emergency (ER) | payer OTHER, MEDICARE, SELFPAY ==
[2020-11-27 11:52] VITALS: BMI 48.2
[2022-01-02] VITALS (11 sets, daily range): BP systolic 119–168; BP diastolic 60–103; PULSE 104–131; RESP 14–23; TEMP 37.1; O2SAT 96–98; BMI 45.7
--- NOTE | 2022-01-02 15:39 | DI.US.S_ITS ---
PROCEDURE: US PELVIC COMPLETE INDICATIONS: Suprapubic pain TECHNIQUE: Real-time scanning was performed of the pelvic organs, with image documentation. COMPARISON: [facility], US, US PELVIC COMPLETE, 03/26/2020, 14:38. FINDINGS: Uterus: Uterus is anteverted and normal in size at 10.0 x 3.4 x 5.1 cm. The myometrium is homogeneous. The endometrium measures 4.5 mm combined thickness. Ovaries: The right ovary measures 2.9 x 2.7 x 2.7 cm. There is a 2.7 cm maximum diameter right adnexal cyst. The left ovary measures 4.0 x 3.1 x 3.5 cm. There is a 3.2 cm maximum diameter left ovarian cyst. No adnexal masses are seen. Other: No pathologic free abdominal or pelvic fluid. IMPRESSION: Unremarkable transabdominal pelvic ultrasound. We strive to produce accurate, complete, and clear reports of imaging services. To assist us in improving patient care, this report was composed using standard report templates and voice recognition software. Therefore, it may contain abnormal punctuation, insertions and/or omissions. Occasional wrong-word or sound-alike substitutions may occur. Though we review the report and make efforts to correct it, we do recommend that the report be read carefully in proper context to recognize any text inaccuracies. Dictated by: Sergio Galvez M.D. on 01/02/2022 at 16:42 Approved by: Sergio Galvez M.D. on 01/02/2022 at 16:46
--- NOTE | 2022-01-02 15:44 | ED_ITS ---
HPI - Abdominal Pain <Jordy Littlejohn PA-C - Last Filed: 01/02/22 18:21> General Chief Complaint: Abdominal Pain Stated Complaint: lower abd pain Time Seen by Provider: 01/02/22 15:26 Source: patient Mode of arrival: Ambulatory History of Present Illness HPI narrative: This is a 41-year-old female presents to the emergency department due to 6 days of suprapubic abdominal pain. Pain is described as ?dull, sharp, aching, and really bad?. She reports 1 episode of nausea and vomiting 6 days ago when the pain began. Denies any vaginal bleeding, discharge, irritation, dysuria, fevers. States there is no chance that she is no history of abdominal surgeries. Still having normal bowel movements. Related Data Home Medications Medication Instructions Recorded Confirmed acetaminophen 500 mg tablet 2,000 mg PO BID 09/23/18 12/31/21 (Tylenol Extra Strength) magnesium 250 mg tablet 500 mg PO DAILY 06/29/19 12/31/21 fluticasone 100 mcg-salmeterol 50 1 puff inhalation BID 07/11/19 12/31/21 mcg/dose blistr powdr for inhalation (Advair Diskus) ferrous sulfate 325 mg (65 mg 325 mg PO DAILY Anemia 01/07/21 12/31/21 iron) tablet Previous Rx's Medication Instructions Recorded diazepam 5 mg tablet (Valium) 5 mg PO SEE INSTRUCTIONS for use 04/17/17 prior to MRI #2 tabs lancets 33 gauge (Easy Touch Twist #100 ea 12/08/18 Lancets) TENS units #1 ea 02/09/19 Compressioin Stockings #1 ea 10/13/19 terazosin 2 mg capsule 2 mg PO BEDTIME #14 caps 02/29/20 pregabalin 150 mg capsule 150 mg PO BID #60 caps 06/08/20 [place] Blood Glucose Test Strips #180 ea 08/10/20 spironolactone 25 mg tablet 12.5 mg PO DAILY #30 tabs 06/24/21 rivaroxaban 20 mg tablet (Xarelto) See Rx Instructions .Route 07/08/21 .COMPLEX #30 tabs cyclobenzaprine 10 mg tablet See Rx Instructions .Route 09/20/21 .COMPLEX #90 tabs omeprazole 20 mg capsule,delayed See Rx Instructions .Route 10/07/21 release .COMPLEX #60 caps metformin 500 mg tablet 1,000 mg PO BID #120 tabs 10/24/21 levothyroxine 25 mcg tablet See Rx Instructions .Route 10/30/21 .COMPLEX #30 tabs clobetasol 0.05 % topical ointment 1 applic topical BID #30 grams 11/01/21 medroxyprogesterone 10 mg tablet 20 mg PO DAILY Heavy periods #22 12/04/21 tabs furosemide 40 mg tablet See Rx Instructions .Route 12/12/21 .COMPLEX #135 tabs albuterol sulfate 90 mcg/actuation See Rx Instructions .Route 12/13/21 aerosol inhaler .COMPLEX #18 grams cyclobenzaprine 10 mg tablet 10 mg PO TID PRN muscle spasm #14 12/16/21 tabs gabapentin 300 mg capsule 300 mg PO BEDTIME #14 caps 12/16/21 methylprednisolone 4 mg tablets in See Rx Instructions PO .COMPLEX 12/16/21 a dose pack (Medrol (Tomas)) #21 ea aripiprazole 30 mg tablet 30 mg PO DAILY 30 days #30 tabs 12/31/21 doxepin 100 mg capsule 200 mg PO BEDTIME #60 caps 12/31/21 Allergies Allergy/AdvReac Type Severity Reaction Status Date / Time carisoprodol [CARISOPRODOL] AdvReac Severe urinary Verified 10/30/21 15:37 retention fosphenytoin AdvReac Severe Seizures Verified 10/30/21 15:37 Latex, Natural Rubber AdvReac Mild Rash Verified 10/30/21 15:37 Review of Systems <Jordy Littlejohn PA-C - Last Filed: 01/02/22 18:21> Review of Systems Narrative: GENERAL: Denies chills, fatigue, malaise, fever, sweats. HEENT: Denies sinus pain, ear pain, sore throat, difficulty swallowing, dizziness. RESPIRATORY: Denies dyspnea, cough, wheezing, hemoptysis, sputum. CARDIOVASCULAR: Denies chest pain, palpitations, orthopnea, edema, GASTROINTESTINAL: Reports abdominal pain, Denies nausea, vomiting, diarrhea, constipation, melena. : Denies dysuria, frequency, incontinence, hematuria, urinary retention. MUSCULOSKELETAL: denies weakness, joint pain, or bony pain SKIN: Denies rash, skin lesions, or other NEUROLOGIC: Denies weakness, headache, numbness, change in speech, confusion, s eizures, incoordination. PSYCHIATRIC: No concerning psychosocial issues. 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) Morbid obesity Narcotic habituation, continuous Nocturnal hypoxemia Obstipation LYLA (obstructive sleep apnea) Ovarian cyst Plantar fasciitis Psychogenic nonepileptic seizure Pulmonary embolism RBBB (right bundle branch block) Sinus tachycardia Status post laminectomy (12/14/15) Suicide attempt Tobacco abuse Tylenol overdose Urinary retention Surgical History History of carpal tunnel repair (~10/30/14) History of colonoscopy History of esophagogastroduodenoscopy (EGD) History of laminectomy History of laminectomy (~09/2016) History of lumbar spinal fusion (12/22/18) Hx of toe surgery (05/16/20) S/P epidural steroid injection (11/2013) Status post dilation and curettage (2008) Family History Grandfather Diabetes mellitus Family/Other Pancreatic cancer Social History household members: spouse Smoking Status: Current every day smoker alcohol intake: current eating out: 1-3 times/week Type(s) of exercise: normal ROM and activity and sedentary lifestyle Smoking Status: Current every day smoker tobacco type: cigarettes alcohol intake frequency: a few times a week Substance Use Type: does not use Exam <Jordy Littlejohn PA-C - Last Filed: 01/02/22 18:21> Narrative Exam Narrative: GENERAL: Well-developed patient, in mild distress. HEAD: Atraumatic. Normocephalic. EYES: Pupils equal round and reactive. Extraocular motions intact. No scleral icterus. No injection or drainage. ENT: Nose without bleeding, purulent drainage. Throat without erythema, tonsillar hypertrophy or exudate. Airway patent. NECK: Trachea midline. Non tender CARDIOVASCULAR: Regular rate and rhythm without murmurs, gallops, or rubs. RESPIRATORY: Clear to auscultation. Breath sounds equal bilaterally. No wheezes, rales, or rhonchi. GASTROINTESTINAL: Mild suprapubic abdominal tenderness to palpation. Abdomen soft, nondistended. EXTREMITIES: No edema or joint tenderness. BACK: Nontender without deformity or crepitance. No flank tenderness. NEURO: AOx3. SKIN: No rash or erythema of visible areas Initial Vital Signs Initial Vital Signs: Vital Signs Temperature 98.7 F 01/02/22 15:23 Pulse Rate 131 H 01/02/22 15:23 Respiratory Rate 18 01/02/22 15:23 Blood Pressure 168/103 H 01/02/22 15:23 Pulse Oximetry 97 01/02/22 15:23 Oxygen Delivery Method 01/02/22 15:23 <Jenna Caceres DO - Last Filed: 01/06/22 03:08> Initial Vital Signs Initial Vital Signs: Vital Signs Temperature 98.7 F 01/02/22 15:23 Pulse Rate 131 H 01/02/22 15:23 Respiratory Rate 18 01/02/22 15:23 Blood Pressure 168/103 H 01/02/22 15:23 Pulse Oximetry 97 01/02/22 15:23 Oxygen Delivery Method 01/02/22 15:23 Course <Jordy Littlejohn PA-C - Last Filed: 01/02/22 18:21> Orders Ordered: Discontinued Medications Sodium Chloride (Normal Saline 0.9%) 1,000 mls @ 1,000 mls/hr IV BOLUS ONE Stop: 01/02/22 16:38 Last Infusion: 01/02/22 18:22 Dose: 0 mls/hr Documented By: Admin: 01/02/22 16:00 Dose: 1,000 mls/hr Documented By: FATIMAH(2) Vital Signs Vital signs: Vital Signs - 8 hr 01/02/22 15:23 01/02/22 15:34 01/02/22 15:35 Temperature 98.7 F Pulse Rate 131 H 117 H 117 H Respiratory Rate 18 Blood Pressure 168/103 H Pulse Oximetry 97 97 97 Oxygen Delivery Method Room Air 01/02/22 15:35 01/02/22 16:00 01/02/22 16:00 Temperature Pulse Rate 111 H Respiratory Rate 23 Blood Pressure 142/73 H 135/60 Pulse Oximetry 96 Oxygen Delivery Method 01/02/22 16:30 01/02/22 16:31 01/02/22 16:31 Temperature Pulse Rate 115 H 116 H Respiratory Rate 18 17 Blood Pressure 127/61 Pulse Oximetry 98 Oxygen Delivery Method 01/02/22 17:00 01/02/22 17:00 01/02/22 17:32 Temperature Pulse Rate 115 H 109 H Respiratory Rate 17 Blood Pressure 139/76 Pulse Oximetry 98 98 Oxygen Delivery Method 01/02/22 17:35 01/02/22 17:35 Temperature Pulse Rate 107 H Respiratory Rate Blood Pressure 119/79 Pulse Oximetry 98 Oxygen Delivery Method <Jenna Caceres, - Last Filed: 01/06/22 03:08> Orders Ordered: Discontinued Medications Sodium Chloride (Normal Saline 0.9%) 1,000 mls @ 1,000 mls/hr IV BOLUS ONE Stop: 01/02/22 16:38 Last Infusion: 01/02/22 18:22 Dose: 0 mls/hr Documented By: Admin: 01/02/22 16:00 Dose: 1,000 mls/hr Documented By: FATIMAH(2) Vital Signs Vital signs: Vital Signs - 8 hr 01/02/22 15:23 01/02/22 15:34 01/02/22 15:35 Temperature 98.7 F Pulse Rate 131 H 117 H 117 H Respiratory Rate 18 Blood Pressure 168/103 H Pulse Oximetry 97 97 97 Oxygen Delivery Method Room Air 01/02/22 15:35 01/02/22 16:00 01/02/22 16:00 Temperature Pulse Rate 111 H Respiratory Rate 23 Blood Pressure 142/73 H 135/60 Pulse Oximetry 96 Oxygen Delivery Method 01/02/22 16:30 01/02/22 16:31 01/02/22 16:31 Temperature Pulse Rate 115 H 116 H Respiratory Rate 18 17 Blood Pressure 127/61 Pulse Oximetry 98 Oxygen Delivery Method 01/02/22 17:00 01/02/22 17:00 01/02/22 17:32 Temperature Pulse Rate 115 H 109 H Respiratory Rate 17 Blood Pressure 139/76 Pulse Oximetry 98 98 Oxygen Delivery Method 01/02/22 17:35 01/02/22 17:35 Temperature Pulse Rate 107 H Respiratory Rate Blood Pressure 119/79 Pulse Oximetry 98 Oxygen Delivery Method MDM - Abdominal Pain <Jordy Littlejohn PA-C - Last Filed: 01/02/22 18:21> Lab Data Result diagrams: 01/02/22 16:30 01/02/22 16:30 Labs: Lab Results 01/02/22 01/02/22 Range/Units 16:30 16:30 WBC 7.5 (4.5-11.0) X10^3/uL RBC 4.50 (4.0-5.2) X10^6/uL Hgb 12.2 (12.0-16.0) g/dL Hct 37.0 (36-46) % MCV 82.2 (80-100) fL MCH 27.0 (26-34) PG MCHC 32.9 (30-36) % RDW 15.0 H (11.6-14.8) % Plt Count 224 (150-400) X10^3/uL Neut % (Auto) 71.4 (50-75) % Lymph % (Auto) 19.6 L (25-40) % [place] % (Auto) 7.5 (3-14) % Eos % (Auto) 1.1 L (2-4) % Baso % (Auto) 0.4 (0-2) % Neut # (Auto) 5300 (4995-1003) /uL Lymph # (Auto) 1500 (9640-0221) /uL [place] # (Auto) 600 (0-900) /uL Eos # (Auto) 100 (0-450) /uL Baso # (Auto) 0 (0-100) /uL Sodium 140 (137-145) mmol/L Potassium 4.2 (3.4-5.1) mmol/L Chloride 105 (98-107) mmol/L Carbon Dioxide 28 (22-32) mmol/L BUN 8 (7-17) mg/dL Creatinine 0.53 (0.52-1.04) mg/dL Estimated GFR > 60 (>60) mL/min BUN/Creatinine Ratio 15.1 (6-22) Glucose 127 H (70-100) mg/dL Calcium 9.0 (8.4-10.2) mg/dL Total Bilirubin 0.3 (0.2-1.3) mg/dL AST 23 (14-36) IU/L ALT 16 (<35) IU/L Alkaline Phosphatase 74 (38-126) U/L Total Protein 8.0 (6.3-8.2) g/dL Albumin 4.4 (3.5-5.0) g/dL Globulin 3.6 (1.7-4.1) g/dL Albumin/Globulin Ratio 1.2 (1.0-2.8) Lipase 59 (23-300) U/L Point of care testing: Point of Care Testing Test Results Negative Urine Dip Bedside Urine Glucose Negative Bedside Urine Bilirubin - Negative Bedside Urine Ketone - Negative Urine Specific [place] 1.005 Bedside Urine Occult Blood - Negative Bedside Urine pH 8 Bedside Urine Protein - Negative Bedside Urine Urobilinogen - Negative Bedside Urine Nitrite - Negative Bedside Urine Leukocytes - Negative Esterase Imaging Data CT scan - abdomen/pelvis: Radiologist's Impression: [address] [address] [address] Scan Report Signed Patient: Nuvia Alvarado MR#: [id number] : 1980 Acct:[id number] Age/Sex: 41 / F Date of Service: 01/02/22 Loc: ED Accession Number: [id number] ?? Procedure: CT abdomen pelvis w con Ordering Provider: Jordy Littlejohn P.A-C PROCEDURE:? CT ABDOMEN PELVIS W CON ? INDICATIONS:? Suprapubic pain ? TECHNIQUE:? After the administration of intravenous contrast, axial sections acquired from the lung bases to the pubic symphysis.? Coronal and sagittal reformats were performed.? For radiation dose reduction, the following was used:? automated exposure control, adjustment of mA and/or kV according to patient size.? ? COMPARISON:? [facility], , [place] PELVIC COMPLETE, 01/02/2022, 15:53. ? FINDINGS:? Image quality:? Excellent.? ? Lung bases:? Unremarkable. Heart:? No significant findings. ? ABDOMEN: Liver:? Unremarkable.? ? Gallbladder:? Unremarkable.? ? Biliary ducts:? Unremarkable.? ? Pancreas:? Unremarkable.? ? Spleen:? Unremarkable.? ? Adrenal Glands:? Unremarkable.? ? Kidneys and Ureters:? Unremarkable.? ? ? Stomach and Bowel:? Stomach, small bowel loops, and colon are unremarkable.? Few scattered colonic diverticula without evidence of diverticulitis.? The appendix is normal. Peritoneum:? No abnormal intraperitoneal fluid.? No free air.? ? Ventral Wall: ? No hernias.? Abdominal Nodes:? No retroperitoneal or mesenteric adenopathy by size criteria.? Vessels:? Aorta and inferior vena cava are normal in size.? ? PELVIS: Pelvic Organs:? 3.9 centimeter maximum diameter left adnexal cyst.? 2.6 christine timeter right adnexal region cyst. Bladder:? Unremarkable.? ? Pelvic Nodes: No enlarged lymph nodes.? Miscellaneous: No hernias are seen. ? ? ? Bones:? Spine degenerative disc disease and facet arthropathy.? Lumbosacral spine fixation hardware. ? ? IMPRESSION:? ? 1. No acute disease process. ? 2. No free fluid or free air. ? 3.? No dilated loops of bowel. ? 4. Appendix is normal.? ? ? Dictated by: Patricia Blair MD, PhD on 01/02/2022 at 16:45 ? ? Approved by: Patricia Blair MD, PhD on 01/02/2022 at 16:51 ? US - OB: Radiologist's Impression: [place] [address] Ultrasound Report Signed Patient: Nuvia Alvarado MR#: [id number] : 1980 Acct:[id number] Age/Sex: 41 / F Date of Service: 01/02/22 Loc: ED Accession Number: [id number] ?? Procedure: US pelvic complete Ordering Provider: Jordy Littlejohn P.A-C PROCEDURE:? US PELVIC COMPLETE ? INDICATIONS:? Suprapubic pain ? TECHNIQUE:? Real-time scanning was performed of the pelvic organs, with image documentation.? COMPARISON:? [facility], , US PELVIC COMPLETE, 03/26/2020, 14:38. ? FINDINGS:? ?? Uterus:? Uterus is anteverted and normal in size at 10.0 x 3.4 x 5.1 cm. The myometrium is homogeneous. ? The endometrium measures 4.5 mm combined thickness.? ? Ovaries:? The right ovary measures 2.9 x 2.7 x 2.7 cm.? There is a 2.7 cm maximum diameter right adnexal cyst.? The left ovary measures 4.0 x 3.1 x 3.5 cm.? There is a 3.2 cm maximum diameter left ovarian cyst.? No adnexal masses are seen. ? Other:? No pathologic free abdominal or pelvic fluid. ? ? IMPRESSION:? Unremarkable transabdominal pelvic ultrasound. ? We strive to produce accurate, complete, and clear reports of imaging services. To assist us in improving patient care, this report was composed using standard report templates and voice recognition software. Therefore, it may contain abnormal punctuation, insertions and/or omissions. Occasional wrong-word or sound-alike substitutions may occur. Though we review the report and make efforts to correct it, we do recommend that the report be read carefully in proper context to recognize any text inaccuracies. ? ? Dictated by: Sergio Galvez M.D. on 01/02/2022 at 16:42 ? ? Approved by: Sergio Galvez M.D. on 01/02/2022 at 16:46 ? MDM Narrative Medical decision making narrative: This is a 41-year-old female presents to emergency department due vague complaints of suprapubic abdominal pain for the last 6 days. test negative and urine showed no evidence of urinary tract infection. Pelvic ul trasound ordered which showed no abnormalities, no topic , ovarian torsion, significant ovarian cysts, or other pelvic abnormalities. Discussed a CT scan and shared decision making was utilized in CT ordered. CT showed no significant abnormalities. Lab work showed no evidence of infection, no white count, no electrolyte abnormalities. Recommend patient follow-up with primary care physician for further evaluation and management if pain continues. <Jenna Caceres, DO - Last Filed: 01/06/22 03:08> Lab Data Labs: Lab Results 01/02/22 01/02/22 Range/Units 16:30 16:30 WBC 7.5 (4.5-11.0) X10^3/uL RBC 4.50 (4.0-5.2) X10^6/uL Hgb 12.2 (12.0-16.0) g/dL Hct 37.0 (36-46) % MCV 82.2 (80-100) fL MCH 27.0 (26-34) PG MCHC 32.9 (30-36) % RDW 15.0 H (11.6-14.8) % Plt Count 224 (150-400) X10^3/uL Neut % (Auto) 71.4 (50-75) % Lymph % (Auto) 19.6 L (25-40) % [place] % (Auto) 7.5 (3-14) % Eos % (Auto) 1.1 L (2-4) % Baso % (Auto) 0.4 (0-2) % Neut # (Auto) 5300 (6408-1324) /uL Lymph # (Auto) 1500 (0112-4655) /uL [place] # (Auto) 600 (0-900) /uL Eos # (Auto) 100 (0-450) /uL Baso # (Auto) 0 (0-100) /uL Sodium 140 (137-145) mmol/L Potassium 4.2 (3.4-5.1) mmol/L Chloride 105 (98-107) mmol/L Carbon Dioxide 28 (22-32) mmol/L BUN 8 (7-17) mg/dL Creatinine 0.53 (0.52-1.04) mg/dL Estimated GFR > 60 (>60) mL/min BUN/Creatinine Ratio 15.1 (6-22) Glucose 127 H (70-100) mg/dL Calcium 9.0 (8.4-10.2) mg/dL Total Bilirubin 0.3 (0.2-1.3) mg/dL AST 23 (14-36) IU/L ALT 16 (<35) IU/L Alkaline Phosphatase 74 (38-126) U/L Total Protein 8.0 (6.3-8.2) g/dL Albumin 4.4 (3.5-5.0) g/dL Globulin 3.6 (1.7-4.1) g/dL Albumin/Globulin Ratio 1.2 (1.0-2.8) Lipase 59 (23-300) U/L Point of care testing: Point of Care Testing Test Results Negative Urine Dip Bedside Urine Glucose Negative Bedside Urine Bilirubin - Negative Bedside Urine Ketone - Negative Urine Specific [place] 1.005 Bedside Urine Occult Blood - Negative Bedside Urine pH 8 Bedside Urine Protein - Negative Bedside Urine Urobilinogen - Negative Bedside Urine Nitrite - Negative Bedside Urine Leukocytes - Negative Esterase Discharge Plan Departure Patient Disposition: Home Clinical Impression: Abdominal pain Instructions: DI for Abdominal Pain-Adult Activity Restrictions/Additional Instructions: Thank you for coming to the [facility] Emergency Department today. As we discussed your lab work showed no abnormalities. There is no evidence of infection, or other eventually abnormalities. The pelvic ultrasound showed no evidence of any kind mass or torsion of the ovaries. CT scan showed no abnormalities. No evidence of appendicitis or other infections of the organs I recommend you follow-up with the primary care provider if the pain continues as they will be able to order testing for more complete workup. At this time there is no evidence of any kind of life-threatening pathologies. Urine showed no evidence of a urinary tract infection. The test was negative. I hope you feel better soon. Prescriptions: No Action (DME) lancets [Easy Touch Twist Lancets] 33 gauge misc See Dose Instructions .ROUTE .MEDSUPPLY Qty: 100 3RF Dose Instruction: As directed Rx Instructions: test qd 90 min after meal (DME) TENS units device See Rx Instructions .ROUTE .MEDSUPPLY Qty: 1 0RF Rx Instructions: As directed levothyroxine 25 mcg tablet See Rx Instructions .ROUTE .COMPLEX Qty: 30 2RF Dose Instruction: take 1 tablet by mouth once daily Rx Instructions: take 1 tablet by mouth once daily clobetasol 0.05 % ointment 1 applic topical BID Qty: 30 2RF aripiprazole 30 mg tablet 30 mg PO DAILY 30 Days Qty: 30 5RF Rx Instructions: Take one 30mg tablet by mouth daily doxepin 100 mg capsule 200 mg PO BEDTIME Qty: 60 5RF (DME) Compressioin Stockings Qty: 1 0RF Rx Instructions: As directed pregabalin 150 mg capsule 150 mg PO BID Qty: 60 3RF Rx Instructions: take 1 capsule by mouth twice a day (DME) [place] Blood Glucose Test Strips See Rx Instructions .Route .MEDSUPPLY Qty: 180 3RF Rx Instructions: Use to test blood glucose twice daily, fasting a 2hrs post prandial spironolactone 25 mg tablet 12.5 mg PO DAILY Qty: 30 3RF Xarelto 20 mg tablet See Rx Instructions .ROUTE .COMPLEX Qty: 30 5RF Dose Instruction: TAKE 1 TABLET BY MOUTH DAILY WITH EVENING MEAL Rx Instructions: TAKE 1 TABLET BY MOUTH DAILY WITH EVENING MEAL cyclobenzaprine 10 mg tablet See Rx Instructions .ROUTE .COMPLEX Qty: 90 1RF Dose Instruction: TAKE 1 TABLET BY MOUTH THREE TIMES DAILY NEEDED FOR MUSCLE SPASM Rx Instructions: TAKE 1 TABLET BY MOUTH THREE TIMES DAILY NEEDED FOR MUSCLE SPASM omeprazole 20 mg capsule,delayed release(DR/EC) See Rx Instructions .ROUTE .COMPLEX Qty: 60 11RF Dose Instruction: TAKE 1 CAPSULE BY MOUTH TWICE DAILY. Rx Instructions: TAKE 1 CAPSULE BY MOUTH TWICE DAILY. metformin 500 mg tablet 1,000 mg PO BID Qty: 120 11RF medroxyprogesterone 10 mg tablet 20 mg PO DAILY Qty: 22 6RF Rx Instructions: Take from the the of each month furosemide 40 mg tablet See Rx Instructions .ROUTE .COMPLEX Qty: 135 0RF Dose Instruction: TAKE 2 AND 1/2 TABLETS BY MOUTH EVERY MORNING AND 2 TABLETS EVERY EVENING FOR A TOTAL OF 180 MILLIGRAMS DAILY Rx Instructions: TAKE 2 AND 1/2 TABLETS BY MOUTH EVERY MORNING AND 2 TABLETS EVERY EVENING FOR A TOTAL OF 180 MILLIGRAMS DAILY albuterol sulfate 90 mcg/actuation HFA aerosol inhaler See Rx Instructions .ROUTE .COMPLEX Qty: 18 11RF Dose Instruction: INHALE 2 PUFFS BY MOUTH EVERY 4 TO 6 HOURS NEEDED FOR SHORTNESS OF BREAT OR WHEEZING Rx Instructions: INHALE 2 PUFFS BY MOUTH EVERY 4 TO 6 HOURS NEEDED FOR SHORTNESS OF BREAT OR WHEEZING diazepam [Valium] 5 mg tablet 5 mg PO SEE INSTRUCTIONS Qty: 2 0RF acetaminophen [Tylenol Extra Strength] 500 mg tablet 2,000 mg PO BID fluticasone propion-salmeterol [Advair Diskus] 100-50 mcg/dose blister with device 1 puff INHALATION BID Label Comments: inhale 1 puff by mouth and INTO THE LUNGS twice a day Rinse mouth...(REFER TO PRESCRIPTION NOTES). ferrous sulfate 325 mg (65 mg iron) Tablet 325 mg PO DAILY cyclobenzaprine 10 mg tablet 10 mg PO TID PRN (Reason: muscle spasm) Qty: 14 0RF gabapentin 300 mg capsule 300 mg PO BEDTIME Qty: 14 0RF methylprednisolone [Medrol (Tomas)] 4 mg tablets,dose pack See Rx Instructions .ROUTE .COMPLEX Qty: 21 0RF Rx Instructions: orally per package directions magnesium 250 mg Tablet 500 mg PO DAILY terazosin 2 mg capsule 2 mg PO BEDTIME Qty: 14 0RF Referrals: Newlon,Alejandra, MD [Primary Care Provider] - Visit Report Forms: Patient Portal/API <Jenna Caceres DO - Last Filed: 01/06/22 03:08> Cosign ED Attending Radhikaature Attestation: I was immediately available in the department for consultation. Documentation has been reviewed. Case was discussed with myself. Recommended pelvic exam if no other source was found if patient was agreeable.
[2022-01-02] MEDS: SODIUM CHLORIDE 0.9% 1,000 ML 1000 ML IV (16:00)
[2022-01-02 16:48] LABS: Add Manual Diff / Slide Review NO; Basophils Absolute Auto 0 /uL (0-100); Basophils Percent Auto 0.4 % (0-2); Eosinophils Absolute Auto 100 /uL (0-450); Eosinophils Percent Auto 1.1 % (2-4); Hemoglobin 12.2 g/dL (12.0-16.0); Lymphocytes Absolute Auto 1500 /uL (1100-4500); Lymphocytes Percent Auto 19.6 % (25-40); Mean Corpuscular HGB Conc 32.9 % (30-36); Mean Corpuscular Volume 82.2 fL (80-100); Monocytes Absolute Auto 600 /uL (0-900); Monocytes Percent Auto 7.5 % (3-14); Neutrophils Absolute Auto 5300 /uL (1500-7000); Neutrophils Percent Auto 71.4 % (50-75); Platelet Count 224 X10^3/uL (150-400); White Blood Cell Count 7.5 X10^3/uL (4.5-11.0)
[2022-01-02 17:04] LABS: Alanine Aminotransferase 16 IU/L (<35); Albumin 4.4 g/dL (3.5-5.0); Albumin Globulin Ratio 1.2 (1.0-2.8); Alkaline Phosphatase 74 U/L (38-126); Aspartate Aminotransferase 23 IU/L (14-36); BUN Creatinine Ratio 15.1 (6-22); Bilirubin Total 0.3 mg/dL (0.2-1.3); Blood Urea Nitrogen 8 mg/dL (7-17); Carbon Dioxide 28 mmol/L (22-32); Chloride 105 mmol/L (98-107); Estimated Glomerular Filt Rate > 60 mL/min (>60); Globulin 3.6 g/dL (1.7-4.1); Glucose 127 mg/dL (70-100); HEMOLYSIS 34 (0-50); Lipase 59 U/L (23-300); Potassium 4.2 mmol/L (3.4-5.1); Sodium 140 mmol/L (137-145)
--- NOTE | 2022-01-02 17:12 | DI.CT.S_ITS ---
PROCEDURE: CT ABDOMEN PELVIS W CON INDICATIONS: Suprapubic pain TECHNIQUE: After the administration of intravenous contrast, axial sections acquired from the lung bases to the pubic symphysis. Coronal and sagittal reformats were performed. For radiation dose reduction, the following was used: automated exposure control, adjustment of mA and/or kV according to patient size. COMPARISON: [facility], , PELVIC COMPLETE, 01/02/2022, 15:53. FINDINGS: Image quality: Excellent. Lung bases: Unremarkable. Heart: No significant findings. ABDOMEN: Liver: Unremarkable. Gallbladder: Unremarkable. Biliary ducts: Unremarkable. Pancreas: Unremarkable. Spleen: Unremarkable. Adrenal Glands: Unremarkable. Kidneys and Ureters: Unremarkable. Stomach and Bowel: Stomach, small bowel loops, and colon are unremarkable. Few scattered colonic diverticula without evidence of diverticulitis. The appendix is normal. Peritoneum: No abnormal intraperitoneal fluid. No free air. Ventral Wall: No hernias. Abdominal Nodes: No retroperitoneal or mesenteric adenopathy by size criteria. Vessels: Aorta and inferior vena cava are normal in size. PELVIS: Pelvic Organs: 3.9 centimeter maximum diameter left adnexal cyst. 2.6 centimeter right adnexal region cyst. Bladder: Unremarkable. Pelvic Nodes: No enlarged lymph nodes. Miscellaneous: No hernias are seen. Bones: Spine degenerative disc disease and facet arthropathy. Lumbosacral spine fixation hardware. IMPRESSION: 1. No acute disease process. 2. No free fluid or free air. 3. No dilated loops of bowel. 4. Appendix is normal. Dictated by: Patricia Blair MD, PhD on 01/02/2022 at 16:45 Approved by: Patricia Blair MD, PhD on 01/02/2022 at 16:51
== END 2022-01-02 18:36 | disposition home or self-care (01) ==
PROVIDERS: Emergency Medicine; Emergency Provider Physician Assistant Medical; PCP Family Medicine
DX: R10.30 Lower abdominal pain, unspecified (principal); R11.2 Nausea with vomiting, unspecified
CPT/HCPCS: 74177; 76856; 80053; 81003; 81025; 83690; 85025; 96360; 96361; 99283; 99284

== ENCOUNTER → 2022-02-05 09:30 | Outpatient (CLI) | payer OTHER, MEDICARE, SELFPAY ==
[2022-01-29 10:34] VITALS: BMI 48.2
[2022-02-05 10:37] LABS: Add Manual Diff / Slide Review NO; Basophils Absolute Auto 0 /uL (0-100); Basophils Percent Auto 0.4 % (0-2); Eosinophils Absolute Auto 100 /uL (0-450); Eosinophils Percent Auto 1.2 % (2-4); Hematocrit 34.8 % (36-46); Hemoglobin 11.6 g/dL (12.0-16.0); Lymphocytes Absolute Auto 1400 /uL (1100-4500); Lymphocytes Percent Auto 15.4 % (25-40); Mean Corpuscular HGB Conc 33.3 % (30-36); Mean Corpuscular Hemoglobin 27.6 PG (26-34); Mean Corpuscular Volume 82.8 fL (80-100); Monocytes Absolute Auto 500 /uL (0-900); Monocytes Percent Auto 5.2 % (3-14); Neutrophils Absolute Auto 6900 /uL (1500-7000); Neutrophils Percent Auto 77.8 % (50-75); Platelet Count 252 X10^3/uL (150-400); Red Cell Distribution Width 15.2 % (11.6-14.8); White Blood Cell Count 8.9 X10^3/uL (4.5-11.0)
[2022-02-05 10:50] LABS: Hemoglobin A1C% w Est Avg Glu 6.8 % (4.0-6.0)
[2022-02-05 10:51] LABS: INR 1.4 (0.9-1.3)
[2022-02-05 10:54] LABS: PTT Partial Thromboplastin Tim 34 SECONDS (26-36)
[2022-02-05 11:30] LABS: TSH w/ Reflex to FT4 0.27 uIU/mL (0.47-4.68)
[2022-02-05 14:00] LABS: Free T4, Direct Thyroxine 1.27 ng/dL (0.78-2.19)
== END ==
PROVIDERS: PCP Family Medicine; Referring Provider Obstetrics & Gynecology; Visit Provider Obstetrics & Gynecology
DX: N92.0 Excessive and frequent menstruation with regular cycle (principal); E11.9 Type 2 diabetes mellitus without complications; E03.9 Hypothyroidism, unspecified
CPT/HCPCS: 36415; 83036; 84439; 84443; 85025; 85610; 85730

== ENCOUNTER 2022-03-01 13:33 | Emergency (ER) | payer OTHER, MEDICARE, SELFPAY ==
[2022-01-29 10:34] VITALS: BMI 48.2
[2022-03-01] VITALS (15 sets, daily range): BP systolic 132–174; BP diastolic 75–90; PULSE 93–109; RESP 13–25; TEMP 36.9; O2SAT 97–99; BMI 45.9
--- NOTE | 2022-03-01 18:11 | DI.RAD.S_ITS ---
PROCEDURE: XR CHEST 1V INDICATIONS: dizzy TECHNIQUE: One view of the chest was acquired. COMPARISON: [facility], CR, XR CHEST 2V, 07/23/2020, 12:55. [facility], CR, XR CHEST 2V, 02/24/2020, 13:24. [facility], CR, XR CHEST 1V, 01/08/2020, 10:58. FINDINGS: Surgical changes and devices: None. Lungs and pleura: Lungs are clear. No pleural effusions or pneumothorax. Mediastinum: Mediastinal contours appear normal. Heart size is normal. Bones and chest wall: No suspicious bony lesions. Overlying soft tissues appear unremarkable. IMPRESSION: No acute cardiopulmonary disease. Dictated by: Holli Anna M.D. on 03/01/2022 at 19:23 Approved by: Holli Anna M.D. on 03/01/2022 at 19:24
[2022-03-01] MEDS: SODIUM CHLORIDE 0.9% 1,000 ML 1000 ML IV ×2 (18:35→20:23)
[2022-03-01 18:37] LABS: Add Manual Diff / Slide Review NO; Basophils Absolute Auto 0 /uL (0-100); Basophils Percent Auto 0.6 % (0-2); Eosinophils Absolute Auto 100 /uL (0-450); Hematocrit 33.6 % (36-46); Hemoglobin 11.1 g/dL (12.0-16.0); Lymphocytes Absolute Auto 1400 /uL (1100-4500); Lymphocytes Percent Auto 22.1 % (25-40); Mean Corpuscular HGB Conc 32.9 % (30-36); Mean Corpuscular Hemoglobin 27.2 PG (26-34); Mean Corpuscular Volume 82.5 fL (80-100); Monocytes Absolute Auto 500 /uL (0-900); Monocytes Percent Auto 7.4 % (3-14); Neutrophils Absolute Auto 4200 /uL (1500-7000); Neutrophils Percent Auto 68.9 % (50-75); Platelet Count 239 X10^3/uL (150-400); Red Blood Cell Count 4.08 X10^6/uL (4.0-5.2); Red Cell Distribution Width 14.8 % (11.6-14.8); White Blood Cell Count 6.1 X10^3/uL (4.5-11.0)
--- NOTE | 2022-03-01 18:49 | ED.DIZZY ---
HPI - Dizziness General Chief Complaint: Dizziness Stated Complaint: Dizziness 3 weeks Time Seen by Provider: 03/01/22 18:11 Source: patient Mode of arrival: Ambulatory History of Present Illness HPI Narrative: 41-year-old female smoker with extensive medical history including multiple prior PEs on anticoagulation, pulmonary hypertension, GERD, fibromyalgia, asthma, hypertension presents with in the chief complaint of multiple weeks of gradually worsening generalized weakness and lightheadedness. She denies any trauma or injury, she denies any fever or chills. She denies any dietary change but does state that at some point in the past month or 2 she stopped taking her thyroid medication at the request of her primary care provider as she was told it was not working. She denies blurred vision or trouble with speech. She denies any numbness, tingling or weakness of upper extremities but states both of her legs feel like they are slowly and gradually becoming weak. She states she is not dizzy so much as she just feels lightheaded more often than not. She denies nausea or vomiting but has had occasional episodes of diarrhea. She denies runny nose, sore throat or cough. She denies chest pain or shortness of breath. Related Data Home Medications Medication Instructions Recorded Confirmed acetaminophen 500 mg tablet 2,000 mg PO BID 09/23/18 02/19/22 (Tylenol Extra Strength) magnesium 250 mg tablet 500 mg PO DAILY 06/29/19 02/19/22 fluticasone 100 mcg-salmeterol 50 1 puff inhalation BID 07/11/19 02/19/22 mcg/dose blistr powdr for inhalation (Advair Diskus) ferrous sulfate 325 mg (65 mg 325 mg PO DAILY Anemia 01/07/21 02/19/22 iron) tablet Previous Rx's Medication Instructions Recorded diazepam 5 mg tablet (Valium) 5 mg PO SEE INSTRUCTIONS for use 04/17/17 prior to MRI #2 tabs lancets 33 gauge (Easy Touch Twist #100 ea 12/08/18 Lancets) TENS units #1 ea 02/09/19 Compressioin Stockings #1 ea 10/13/19 [place] Blood Glucose Test Strips #180 ea 08/10/20 spironolactone 25 mg tablet 12.5 mg PO DAILY #30 tabs 06/24/21 omeprazole 20 mg capsule,delayed See Rx Instructions .Route 10/07/21 release .COMPLEX #60 caps metformin 500 mg tablet 1,000 mg PO BID #120 tabs 10/24/21 clobetasol 0.05 % topical ointment 1 applic topical BID #30 grams 11/01/21 albuterol sulfate 90 mcg/actuation See Rx Instructions .Route 12/13/21 aerosol inhaler .COMPLEX #18 grams aripiprazole 30 mg tablet 30 mg PO DAILY 30 days #30 tabs 12/31/21 doxepin 100 mg capsule 200 mg PO BEDTIME #60 caps 12/31/21 furosemide 40 mg tablet See Rx Instructions .Route 01/13/22 .COMPLEX #135 tabs rivaroxaban 20 mg tablet (Xarelto) See Rx Instructions .Route 01/13/22 .COMPLEX #30 tabs ipratropium bromide 17 1 puff inhalation Q8H #12.9 grams 01/22/22 mcg/actuation HFA aerosol inhaler levalbuterol tartrate 45 1 puff inhalation Q4-6H PRN 01/22/22 mcg/actuation aerosol inhaler shortness of breath or wheezing #15 grams pregabalin 300 mg capsule 300 mg PO BID #180 caps 01/22/22 levothyroxine 25 mcg tablet See Rx Instructions .Route 01/23/22 .COMPLEX #30 tabs ondansetron 8 mg disintegrating 8 mg PO Q8H PRN nausea and 02/01/22 tablet vomiting #20 tabs cyclobenzaprine 10 mg tablet See Rx Instructions .Route 02/20/22 .COMPLEX #90 tabs norgestrel 0.3 mg-ethinyl 2 tab PO DAILY #52 tabs 02/20/22 estradiol 30 mcg tablet terazosin 2 mg capsule 2 mg PO BEDTIME #30 caps 02/28/22 Allergies Allergy/AdvReac Type Severity Reaction Status Date / Time carisoprodol [CARISOPRODOL] AdvReac Severe urinary Verified 02/19/22 13:22 retention fosphenytoin AdvReac Severe Seizures Verified 02/19/22 13:22 Latex, Natural Rubber AdvReac Mild Rash Verified 02/19/22 13:22 Review of Systems Review of Systems Narrative: GENERAL: See HPI HEENT: Denies sinus pain, ear pain, sore throat, difficulty swallowing, dizziness. RESPIRATORY: Denies dyspnea, cough, wheezing, hemoptysis, sputum. CARDIOVASCULAR: See HPI GASTROINTESTINAL: Denies nausea, vomiting, abdominal pain, diarrhea, constipation, melena. : Denies dysuria, frequency, incontinence, hematuria, urinary retention. MUSCULOSKELETAL: See HPI SKIN: Denies rash, skin lesions, or other NEUROLOGIC: See HP PSYCHIATRIC: No concerning psychosocial issues. 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) Morbid obesity Narcotic habituation, continuous Nocturnal hypoxemia Obstipation LYLA (obstructive sleep apnea) Ovarian cyst Plantar fasciitis Psychogenic nonepileptic seizure Pulmonary embolism RBBB (right bundle branch block) Sinus tachycardia Status post laminectomy (12/14/15) Suicide attempt Tobacco abuse Tylenol overdose Urinary retention Surgical History History of carpal tunnel repair (~10/30/14) History of colonoscopy History of esophagogastroduodenoscopy (EGD) History of laminectomy History of laminectomy (~09/2016) History of lumbar spinal fusion (12/22/18) Hx of toe surgery (05/16/20) S/P epidural steroid injection (11/2013) Status post dilation and curettage (2008) Family History Grandfather Diabetes mellitus Family/Other Pancreatic cancer Social History household members: spouse Smoking Status: Current some day smoker alcohol intake: current eating out: 1-3 times/week Type(s) of exercise: normal ROM and activity and sedentary lifestyle Smoking Status: Current some day smoker tobacco type: cigarettes alcohol intake frequency: a few times a week Substance Use Type: does not use Exam Narrative Exam Narrative: GENERAL: [41] year old patient appears stated age. Well-developed patient, in mild distress. GCS 15 HEAD: Atraumatic. Normocephalic. EYES: Pupils equal round and reactive. Extraocular motions intact. No scleral icterus. No injection or drainage. ENT: Moist mucous membranes Nose without bleeding, purulent drainage. Throat without erythema, tonsillar hypertrophy or exudate. Airway patent. NECK: Trachea midline. Non tender CARDIOVASCULAR: R mildly tachycardic with regular rhythm without murmurs, gallops, or rubs. RESPIRATORY: Clear to auscultation. Breath sounds equal bilaterally. No wheezes, rales, or rhonchi. GASTROINTESTINAL: Abdomen soft, non-tender, nondistended. EXTREMITIES: Minimal swelling of right calf, minimally tender, and mild erythema BACK: Nontender without deformity or crepitance. No flank tenderness. NEURO: AOx3. Cranial nerves 2-12 grossly intact SKIN: No rash or erythema of visible areas Initial Vital Signs Initial Vital Signs: Vital Signs Temperature 98.4 F 03/01/22 13:42 Pulse Rate 108 H 03/01/22 13:42 Respiratory Rate 18 03/01/22 13:42 Blood Pressure 161/83 H 03/01/22 13:42 Pulse Oximetry 99 03/01/22 13:42 Oxygen Delivery Method 03/01/22 13:42 Course Orders Ordered: ED Orders 03/01/22 18:11 Chest [XR chest 1V] Stat EKG-12 Lead Stat 03/01/22 18:27 Complete Blood Count AUTO DIFF Stat Comprehensive Metabolic Panel Stat D Dimer Stat MAG [Magnesium] Stat TSH w/ Reflex to FT4 Stat Troponin & CK Cardiac Panel Stat 03/01/22 19:59 US periph venous low extrem rt Stat 03/01/22 20:07 CT angio chest PE protocol Stat CT head/brain wo con Stat Discontinued Medications Sodium Chloride (Normal Saline 0.9%) 1,000 mls @ 1,000 mls/hr IV BOLUS ONE Stop: 03/01/22 19:10 Last Infusion: 03/01/22 19:34 Dose: 0 mls/hr Documented By: Admin: 03/01/22 18:35 Dose: 1,000 mls/hr Documented By: NAYAN Thiamine HCl 200 mg/ Sodium (Chloride) 102 mls @ 408 mls/hr IV NOW ONE Stop: 03/01/22 20:05 Last Infusion: 03/01/22 21:07 Dose: 0 mls/hr Documented By: Admin: 03/01/22 20:21 Dose: 408 mls/hr Documented By: NAYAN Sodium Chloride (Normal Saline 0.9%) 1,000 mls @ 1,000 mls/hr IV BOLUS ONE Stop: 03/01/22 21:03 Last Infusion: 03/01/22 22:33 Dose: 0 mls/hr Documented By: Admin: 03/01/22 20:23 Dose: 1,000 mls/hr Documented By: NAYAN Vital Signs Vital signs: Vital Signs - 8 hr 03/01/22 18:11 03/01/22 18:12 03/01/22 18:30 Pulse Rate 109 H 103 H Respiratory Rate 13 24 Blood Pressure 174/90 H Pulse Oximetry 97 97 03/01/22 18:31 03/01/22 18:31 03/01/22 19:00 Pulse Rate 104 H Respiratory Rate 25 H Blood Pressure 145/79 H 132/75 Pulse Oximetry 97 03/01/22 19:00 03/01/22 19:30 03/01/22 19:30 Pulse Rate 105 H 96 H Respiratory Rate 20 22 Blood Pressure 142/76 H Pulse Oximetry 97 97 03/01/22 20:00 03/01/22 20:01 03/01/22 20:01 Pulse Rate 98 H 100 H Respiratory Rate 23 25 H Blood Pressure 142/83 H Pulse Oximetry 97 97 03/01/22 20:30 03/01/22 21:10 03/01/22 21:30 Pulse Rate 99 H 104 H 98 H Respiratory Rate 25 H 19 Blood Pressure Pulse Oximetry 98 98 97 03/01/22 22:00 03/01/22 22:15 03/01/22 22:15 Pulse Rate 97 H 98 H Respiratory Rate 13 16 Blood Pressure 138/83 Pulse Oximetry 97 97 03/01/22 22:30 03/01/22 22:30 Pulse Rate 93 H Respiratory Rate 13 Blood Pressure 141/85 H Pulse Oximetry 97 MDM - Dizziness Lab Data Result diagrams: 03/01/22 18:27 03/01/22 18:27 Labs: Lab Results 03/01/22 03/01/22 03/01/22 Range/Units 18:27 18:27 18:27 WBC 6.1 (4.5-11.0) X10^3/uL RBC 4.08 (4.0-5.2) X10^6/uL Hgb 11.1 L (12.0-16.0) g/dL Hct 33.6 L (36-46) % MCV 82.5 (80-100) fL MCH 27.2 (26-34) PG MCHC 32.9 (30-36) % RDW 14.8 (11.6-14.8) % Plt Count 239 (150-400) X10^3/uL Neut % (Auto) 68.9 (50-75) % Lymph % (Auto) 22.1 L (25-40) % [place] % (Auto) 7.4 (3-14) % Eos % (Auto) 1.0 L (2-4) % Baso % (Auto) 0.6 (0-2) % Neut # (Auto) 4200 (5549-8641) /uL Lymph # (Auto) 1400 (1006-2135) /uL [place] # (Auto) 500 (0-900) /uL Eos # (Auto) 100 (0-450) /uL Baso # (Auto) 0 (0-100) /uL D-Dimer 636 H (<500) ng/ml Sodium 142 (137-145) mmol/L Potassium 4.2 (3.4-5.1) mmol/L Chloride 106 (98-107) mmol/L Carbon Dioxide 26 (22-32) mmol/L BUN 12 (7-17) mg/dL Creatinine 0.60 (0.52-1.04) mg/dL Estimated GFR > 60 (>60) mL/min BUN/Creatinine Ratio 20.0 (6-22) Glucose 190 H (70-100) mg/dL Calcium 9.0 (8.4-10.2) mg/dL Magnesium 2.3 (1.6-2.3) mg/dL Total Bilirubin 0.2 (0.2-1.3) mg/dL AST 15 (14-36) IU/L ALT 14 (<35) IU/L Alkaline Phosphatase 58 (38-126) U/L Total Creatine Kinase 94 (30-135) U/L CK-MB (CK-2) TNP CK-MB (CK-2) Rel Index TNP Troponin I < 0.012 (0.01-0.034) ng/mL Total Protein 8.0 (6.3-8.2) g/dL Albumin 4.2 (3.5-5.0) g/dL Globulin 3.8 (1.7-4.1) g/dL Albumin/Globulin Ratio 1.1 (1.0-2.8) TSH (0.47-4.68) uIU/mL 03/01/22 Range/Units 18:27 WBC (4.5-11.0) X10^3/uL RBC (4.0-5.2) X10^6/uL Hgb (12.0-16.0) g/dL Hct (36-46) % MCV (80-100) fL MCH (26-34) PG MCHC (30-36) % RDW (11.6-14.8) % Plt Count (150-400) X10^3/uL Neut % (Auto) (50-75) % Lymph % (Auto) (25-40) % [place] % (Auto) (3-14) % Eos % (Auto) (2-4) % Baso % (Auto) (0-2) % Neut # (Auto) (4580-2716) /uL Lymph # (Auto) (2826-2346) /uL [place] # (Auto) (0-900) /uL Eos # (Auto) (0-450) /uL Baso # (Auto) (0-100) /uL D-Dimer (<500) ng/ml Sodium (137-145) mmol/L Potassium (3.4-5.1) mmol/L Chloride (98-107) mmol/L Carbon Dioxide (22-32) mmol/L BUN (7-17) mg/dL Creatinine (0.52-1.04) mg/dL Estimated GFR (>60) mL/min BUN/Creatinine Ratio (6-22) Glucose (70-100) mg/dL Calcium (8.4-10.2) mg/dL Magnesium (1.6-2.3) mg/dL Total Bilirubin (0.2-1.3) mg/dL AST (14-36) IU/L ALT (<35) IU/L Alkaline Phosphatase (38-126) U/L Total Creatine Kinase (30-135) U/L CK-MB (CK-2) CK-MB (CK-2) Rel Index Troponin I (0.01-0.034) ng/mL Total Protein (6.3-8.2) g/dL Albumin (3.5-5.0) g/dL Globulin (1.7-4.1) g/dL Albumin/Globulin Ratio (1.0-2.8) TSH 2.49 (0.47-4.68) uIU/mL Imaging Data Chest x-ray: Radiologist's Impression: Close Chest X-Ray (Signed) Holli Anna - 03/01/22 Launch?Image [address] [address] XRay Report Signed Patient: Nuvia Alvarado MR#: [id number] : 1980 Acct:[id number] Age/Sex: 41 / F Date of Service: 03/01/22 Loc: ED Accession Number: [id number] ?? Procedure: XR chest 1V Ordering Provider: Dank Eckert D.O. PROCEDURE:? XR CHEST 1V ? INDICATIONS:? dizzy ? TECHNIQUE:? One view of the chest was acquired.? ? COMPARISON:? [facility], CR, XR CHEST 2V, 07/23/2020, 12:55.? [facility], CR, XR CHEST 2V, 02/24/2020, 13:24.? [facility], CR, XR CHEST 1V, 01/08/2020, 10:58. ? FINDINGS:? ? Surgical changes and devices:? None.? ? Lungs and pleura:? Lungs are clear.? No pleural effusions or pneumothorax.? ? Mediastinum:? Mediastinal contours appear normal.? Heart size is normal.? ? Bones and chest wall:? No suspicious bony lesions.? Overlying soft tissues appear unremarkable.? ? IMPRESSION:? No acute cardiopulmonary disease. ? ? Dictated by: Holli Anna M.D. on 03/01/2022 at 19:23 ? ? Approved by: Holli Anna M.D. on 03/01/2022 at 19:24? CT scan - chest: Radiologist's Impression: [address] [address] [address] Scan Report Signed Patient: Nuvia Alvarado MR#: [id number] : 1980 Acct:[id number] Age/Sex: 41 / F Date of Service: 03/01/22 Loc: ED Accession Number: [id number] ?? Procedure: CT angio chest PE protocol Ordering Provider: Dank Eckert D.O. PROCEDURE:? CT ANGIO CHEST PE PROTOCOL ? INDICATIONS:? tachycardia, critial dimer, prior PE, weak ? TECHNIQUE:? After the administration of intravenous contrast, 2 mm thick sections acquired from the pulmonary apices to the posterior costophrenic angles.? 3-dimensional maximum intensity projection (MIP) coronal and sagittal reformats were then acquired through the thorax.? For radiation dose reduction, the following was used:? automated exposure control, adjustment of mA and/or kV according to patient size.? ? COMPARISON:? [facility], CT, CT ANGIO CHEST PE PROTOCOL, 01/30/2020, 6:11.? [facility], CT, CT ANGIO CHEST PE PROTOCOL, 07/11/2019, 15:32. ? FINDINGS:? Image quality:? Excellent.? ? Pulmonary arteries:? Pulmonary arteries are normal in size, and demonstrate no intraluminal filling defects to suggest central pulmonary embolism.? ? Lungs and pleura:? Lungs are clear.? No pleural effusions or pneumothorax.? Central and peripheral airways are patent.? ? Mediastinum:? Heart size is normal, without pericardial effusion.? No mediastinal or hilar adenopathy.? Thoracic aorta is normal in caliber and enhancement.? Esophagus is normal in caliber, without hiatal hernia.? ? Bones and chest wall:? No suspicious bony lesions.? Ribs and thoracic spine appear intact throughout.? Thyroid gland appears normal where well seen.? No axillary or supraclavicular adenopathy.? ? Abdomen:? Visualized upper abdominal solid organs appear normal in the early arterial phase of enhancement.? ? IMPRESSION:? No pulmonary embolus found, no pneumonia identified.? Source of shortness of breath is not found. ? ? Dictated by: Beto Apple M.D. on 03/01/2022 at 21:19 ? ? Approved by: Beto Apple M.D. on 03/01/2022 at 21:21 ? MDM Narrative Medical decision making narrative: Multiple etiologies for patient's symptoms considered including: [Electrolyte abnormality versus stroke versus thyroid problem versus infection versus anemia versus pulmonary embolism versus other] Patient's symptoms improved slightly over duration of stay with above-stated therapies. Though her TSH and magnesium were both in the normal range she states that she was taken off of her thyroid medication and stopped taking her magnesium shortly before these symptoms started. That being said there is no indication to address magnesium or thyroid in the emergency department given measured levels Findings and discharge diagnosis discussed with patient/family followed by verbalization of understanding Return precautions discussed with patient/family whom verbalize understanding. Discharge Plan Departure Patient Disposition: Home Clinical Impression: Weakness, Fatigue, Dizziness Instructions: DI for Muscle Weakness, Dizziness, Nonvertigo Activity Restrictions/Additional Instructions: *You have been diagnosed with [dizziness and weakness. As we discussed your labs and imaging are very reassuring and there is currently no evidence of any diagnosis which would require a specific or immediate intervention] *What to do: *Please continue to take your regular medications as directed. [ ] New medication prescriptions sent to your pharmacy: [ ] [ ] New medication written as a paper prescription [x ] No new medications given *Please follow up with your primary care provider in 2-3 days, call for an appointment. Let them know you were seen in the Emergency Department and that we ask that you be seen in follow up. We will electronically transmit a record of today's note if your PCP is in our system *If you do not have a primary care provider please contact the [facility] Resource line at [phone]. They will ask some questions about your medical history and help get you set up with a doctor in the community. *Return to Emergency Department if you should have any new, worsening or concerning symptoms, such as [fever greater than 101 F, shaking chills, worsening pain, persistent vomiting or other bothersome symptoms] Prescriptions: No Action pregabalin 300 mg capsule 300 mg PO BID Qty: 180 3RF Rx Instructions: take 1 capsule by mouth twice a day (DME) lancets [Easy Touch Twist Lancets] 33 gauge misc See Dose Instructions .ROUTE .MEDSUPPLY Qty: 100 3RF Dose Instruction: As directed Rx Instructions: test qd 90 min after meal (DME) TENS units device See Rx Instructions .ROUTE .MEDSUPPLY Qty: 1 0RF Rx Instructions: As directed clobetasol 0.05 % ointment 1 applic topical BID Qty: 30 2RF aripiprazole 30 mg tablet 30 mg PO DAILY 30 Days Qty: 30 5RF Rx Instructions: Take one 30mg tablet by mouth daily doxepin 100 mg capsule 200 mg PO BEDTIME Qty: 60 5RF (DME) Compressioin Stockings Qty: 1 0RF Rx Instructions: As directed ([facility] [place] Blood Glucose Test Strips See Rx Instructions .Route .MEDSUPPLY Qty: 180 3RF Rx Instructions: Use to test blood glucose twice daily, fasting a 2hrs post prandial spironolactone 25 mg tablet 12.5 mg PO DAILY Qty: 30 3RF omeprazole 20 mg capsule,delayed release(DR/EC) See Rx Instructions .ROUTE .COMPLEX Qty: 60 11RF Dose Instruction: TAKE 1 CAPSULE BY MOUTH TWICE DAILY. Rx Instructions: TAKE 1 CAPSULE BY MOUTH TWICE DAILY. metformin 500 mg tablet 1,000 mg PO BID Qty: 120 11RF albuterol sulfate 90 mcg/actuation HFA aerosol inhaler See Rx Instructions .ROUTE .COMPLEX Qty: 18 11RF Hold Instructions: Home Medication placed on hold at Doctor's office Dose Instruction: INHALE 2 PUFFS BY MOUTH EVERY 4 TO 6 HOURS NEEDED FOR SHORTNESS OF BREAT OR WHEEZING Rx Instructions: INHALE 2 PUFFS BY MOUTH EVERY 4 TO 6 HOURS NEEDED FOR SHORTNESS OF BREAT OR WHEEZING diazepam [Valium] 5 mg tablet 5 mg PO SEE INSTRUCTIONS Qty: 2 0RF Xarelto 20 mg tablet See Rx Instructions .ROUTE .COMPLEX Qty: 30 5RF Dose Instruction: TAKE 1 TABLET BY MOUTH DAILY WITH EVENING MEAL Rx Instructions: TAKE 1 TABLET BY MOUTH DAILY WITH EVENING MEAL furosemide 40 mg tablet See Rx Instructions .ROUTE .COMPLEX Qty: 135 0RF Dose Instruction: TAKE 2 AND 1/2 TABLETS BY MOUTH EVERY MORNING AND 2 TABLETS EVERY EVENING FOR A TOTAL OF 180 MILLIGRAMS DAILY Rx Instructions: TAKE 2 AND 1/2 TABLETS BY MOUTH EVERY MORNING AND 2 TABLETS EVERY EVENING FOR A TOTAL OF 180 MILLIGRAMS DAILY ipratropium bromide 17 mcg/actuation HFA aerosol inhaler 1 puff inhalation Q8H Qty: 12.9 2RF levalbuterol tartrate 45 mcg/actuation HFA aerosol inhaler 1 puff inhalation Q4-6H PRN (Reason: shortness of breath or wheezing) Qty: 15 2RF levothyroxine 25 mcg tablet See Rx Instructions .ROUTE .COMPLEX Qty: 30 2RF Dose Instruction: take 1 tablet by mouth once daily Rx Instructions: take 1 tablet by mouth once daily ondansetron 8 mg tablet,disintegrating 8 mg PO Q8H PRN (Reason: nausea and vomiting) Qty: 20 0RF cyclobenzaprine 10 mg tablet See Rx Instructions .ROUTE .COMPLEX Qty: 90 1RF Dose Instruction: TAKE 1 TABLET BY MOUTH THREE TIMES DAILY NEEDED FOR MUSCLE SPASM Rx Instructions: TAKE 1 TABLET BY MOUTH THREE TIMES DAILY NEEDED FOR MUSCLE SPASM terazosin 2 mg capsule 2 mg PO BEDTIME Qty: 30 0RF norgestrel-ethinyl estradiol 0.3-30 mg-mcg tablet 2 tab PO DAILY Qty: 52 2RF acetaminophen [Tylenol Extra Strength] 500 mg tablet 2,000 mg PO BID fluticasone propion-salmeterol [Advair Diskus] 100-50 mcg/dose blister with device 1 puff INHALATION BID Label Comments: inhale 1 puff by mouth and INTO THE LUNGS twice a day Rinse mouth...(REFER TO PRESCRIPTION NOTES). ferrous sulfate 325 mg (65 mg iron) Tablet 325 mg PO DAILY magnesium 250 mg Tablet 500 mg PO DAILY Referrals: Alejandra Lynch MD [Primary Care Provider] - Visit Report Forms: Patient Portal/API
[2022-03-01 18:50] LABS: Alanine Aminotransferase 14 IU/L (<35); Albumin 4.2 g/dL (3.5-5.0); Albumin Globulin Ratio 1.1 (1.0-2.8); Alkaline Phosphatase 58 U/L (38-126); Aspartate Aminotransferase 15 IU/L (14-36); Bilirubin Total 0.2 mg/dL (0.2-1.3); Blood Urea Nitrogen 12 mg/dL (7-17); Carbon Dioxide 26 mmol/L (22-32); Chloride 106 mmol/L (98-107); Creatine Kinase 94 U/L (30-135); Estimated Glomerular Filt Rate > 60 mL/min (>60); Globulin 3.8 g/dL (1.7-4.1); Glucose 190 mg/dL (70-100); HEMOLYSIS < 15 (0-50); Magnesium 2.3 mg/dL (1.6-2.3); Potassium 4.2 mmol/L (3.4-5.1); Sodium 142 mmol/L (137-145)
[2022-03-01 19:01] LABS: D Dimer 636 ng/ml (<500)
[2022-03-01 19:02] LABS: Troponin I < 0.012 ng/mL (0.01-0.034)
--- NOTE | 2022-03-01 19:59 | DI.US.S_ITS ---
PROCEDURE: PERIP VENOUS LOW EXTREM RT INDICATIONS: PAIN, EDEMA TECHNIQUE: Real-time imaging, as well as color and pulse Doppler interrogation, were performed of the lower extremity deep veins from the inguinal ligament to the popliteal fossa. COMPARISON: [facility], [facility] VENOUS LOW EXTREM RT, 03/01/2020, 22:34. [facility], PERIP VENOUS LOW EXTREM RT, 06/29/2019, 13:10. FINDINGS: The common femoral, femoral and popliteal veins are normally compressible, and free of intraluminal thrombus. Color and pulse Doppler demonstrate normal phasic intraluminal flow. There is normal augmentation response to distal compression maneuver. IMPRESSION: No DVT found right lower extremity. Dictated by: Beto Apple M.D. on 03/01/2022 at 20:57 Approved by: Beto Apple M.D. on 03/01/2022 at 20:57
--- NOTE | 2022-03-01 20:07 | DI.CT.S_ITS ---
PROCEDURE: CT ANGIO CHEST PE PROTOCOL INDICATIONS: tachycardia, critial dimer, prior PE, weak TECHNIQUE: After the administration of intravenous contrast, 2 mm thick sections acquired from the pulmonary apices to the posterior costophrenic angles. 3-dimensional maximum intensity projection (MIP) coronal and sagittal reformats were then acquired through the thorax. For radiation dose reduction, the following was used: automated exposure control, adjustment of mA and/or kV according to patient size. COMPARISON: [facility], CT, CT ANGIO CHEST PE PROTOCOL, 01/30/2020, 6:11. [facility], CT, CT ANGIO CHEST PE PROTOCOL, 07/11/2019, 15:32. FINDINGS: Image quality: Excellent. Pulmonary arteries: Pulmonary arteries are normal in size, and demonstrate no intraluminal filling defects to suggest central pulmonary embolism. Lungs and pleura: Lungs are clear. No pleural effusions or pneumothorax. Central and peripheral airways are patent. Mediastinum: Heart size is normal, without pericardial effusion. No mediastinal or hilar adenopathy. Thoracic aorta is normal in caliber and enhancement. Esophagus is normal in caliber, without hiatal hernia. Bones and chest wall: No suspicious bony lesions. Ribs and thoracic spine appear intact throughout. Thyroid gland appears normal where well seen. No axillary or supraclavicular adenopathy. Abdomen: Visualized upper abdominal solid organs appear normal in the early arterial phase of enhancement. IMPRESSION: No pulmonary embolus found, no pneumonia identified. Source of shortness of breath is not found. Dictated by: Beto Apple M.D. on 03/01/2022 at 21:19 Approved by: Beto Apple M.D. on 03/01/2022 at 21:21
--- NOTE | 2022-03-01 20:07 | DI.CT.S_ITS ---
PROCEDURE: CT HEAD/BRAIN WO CON INDICATIONS: increasing ataxia, right leg feels weak, dizzy TECHNIQUE: Noncontrast 4.5 mm thick angled axial sections acquired from the foramen magnum to the vertex, with coronal and sagittal reformats. For radiation dose reduction, the following was used: automated exposure control, adjustment of mA and/or kV according to patient size. COMPARISON: [facility], CT, CT HEAD/BRAIN WO CON, 05/07/2020, 13:04. [facility], CT, CT HEAD/BRAIN WO CON, 02/02/2020, 9:26. FINDINGS: Image quality: Excellent. CSF spaces: Basal cisterns are patent. No extra-axial fluid collections. Ventricles are normal in size and shape. Brain: No midline shift. No intracranial masses or hemorrhage. Waterman-white matter interface is normal. Skull and face: Calvarium and visualized facial bones are intact, without suspicious lesions. Sinuses: Visualized sinuses and mastoids are clear. IMPRESSION: Normal for age, source of current ataxia and right leg weakness symptoms is not seen. Dictated by: Beto Apple M.D. on 03/01/2022 at 21:18 Approved by: Beto Apple M.D. on 03/01/2022 at 21:18
[2022-03-01] MEDS: THIAMINE 200 MG in SODIUM CHLORIDE 0.9% 100 ML 408 MG IV (20:21)
[2022-03-01 21:02] LABS: TSH w/ Reflex to FT4 2.49 uIU/mL (0.47-4.68)
== END 2022-03-01 23:02 | disposition home or self-care (01) ==
PROVIDERS: Emergency Provider Emergency Medicine; PCP Family Medicine
DX: R53.1 Weakness (principal); R53.83 Other fatigue; R42 Dizziness and giddiness; R00.0 Tachycardia, unspecified
CPT/HCPCS: 70450; 71045; 71275; 80053; 82550; 83735; 84443; 84484; 85025; 85379; 93005; 93010; 93971; 96360; 96361; 99284; Q9967

== ENCOUNTER → 2022-03-22 11:45 | Outpatient (CLI) | payer OTHER, MEDICARE, SELFPAY ==
[2022-01-29 10:34] VITALS: BMI 48.2
[2022-03-22 13:08] LABS: Add Manual Diff / Slide Review NO; Basophils Absolute Auto 0 /uL (0-100); Basophils Percent Auto 0.4 % (0-2); Eosinophils Absolute Auto 200 /uL (0-450); Eosinophils Percent Auto 3.6 % (2-4); Hematocrit 36.1 % (36-46); Hemoglobin 11.9 g/dL (12.0-16.0); Lymphocytes Absolute Auto 1600 /uL (1100-4500); Lymphocytes Percent Auto 25.7 % (25-40); Mean Corpuscular HGB Conc 33.1 % (30-36); Mean Corpuscular Hemoglobin 27.5 PG (26-34); Mean Corpuscular Volume 83.2 fL (80-100); Monocytes Absolute Auto 400 /uL (0-900); Monocytes Percent Auto 5.8 % (3-14); Neutrophils Absolute Auto 4000 /uL (1500-7000); Neutrophils Percent Auto 64.5 % (50-75); Platelet Count 205 X10^3/uL (150-400); Red Blood Cell Count 4.33 X10^6/uL (4.0-5.2); Red Cell Distribution Width 14.7 % (11.6-14.8); White Blood Cell Count 6.2 X10^3/uL (4.5-11.0)
[2022-03-22 14:15] LABS: Free T3, Triiodothyronine Free 4.85 pg/mL (2.77-5.27); Free T4, Direct Thyroxine 1.05 ng/dL (0.78-2.19)
[2022-03-22 14:29] LABS: TSH w/ Reflex to FT4 1.98 uIU/mL (0.47-4.68)
== END ==
PROVIDERS: PCP Family Medicine; Referring Provider Family Medicine; Visit Provider Family Medicine
DX: N92.0 Excessive and frequent menstruation with regular cycle (principal); E03.9 Hypothyroidism, unspecified
CPT/HCPCS: 36415; 84439; 84443; 84481; 85025

== ENCOUNTER → 2022-04-02 13:41 | Outpatient (CLI) | payer OTHER, MEDICARE, SELFPAY ==
[2022-01-29 10:34] VITALS: BMI 48.2
--- NOTE | 2022-04-02 13:43 | DI.RAD.S_ITS ---
PROCEDURE: XR LUMBAR SPINE 2-3V INDICATIONS: low back pain TECHNIQUE: 3 views of the lumbar spine were acquired. COMPARISON: [facility], , XR LUMBAR SPINE 2-3V, 04/24/2021, 12:44. FINDINGS: Bones: 5 lex-ica-[id number] vertebrae are present. There is normal bony alignment. No vertebral body compression fractures. There is rightward curvature of the lumbar spine. Pedicular screw and jason fixation L4-5 with discectomy and interbody spacer. Minimal degenerative changes. No suspicious bony lesions. Soft tissues: Overlying bowel gas pattern is normal. No suspicious soft tissue calcifications. IMPRESSION: 1. Postoperative changes at L4-5 without complication. 2. Mild degenerative changes and rightward curvature of the lumbar spine. 3. No acute abnormality. Dictated by: Jared Amin M.D. on 04/03/2022 at 13:55 Approved by: Jared Amin M.D. on 04/03/2022 at 13:57
== END ==
PROVIDERS: PCP Family Medicine; Referring Provider Family Medicine; Visit Provider Family Medicine
DX: M54.50 Low back pain, unspecified (principal); M47.816 Spondylosis without myelopathy or radiculopathy, lumbar region
CPT/HCPCS: 72100

== ENCOUNTER → 2022-05-21 14:24 | Outpatient (CLI) | payer OTHER, MEDICARE, SELFPAY ==
[2022-01-29 10:34] VITALS: BMI 48.2
[2022-05-22 15:12] LABS: Interpretation Negative (Negative)
== END ==
PROVIDERS: PCP Family Medicine; Referring Provider Family Medicine; Visit Provider Family Medicine
DX: E11.9 Type 2 diabetes mellitus without complications (principal); R63.2 Polyphagia
CPT/HCPCS: 36415; 83013; 83036

== ENCOUNTER → 2022-06-18 08:09 | Outpatient (CLI) | payer OTHER, MEDICARE, SELFPAY ==
[2022-01-29 10:34] VITALS: BMI 48.2
--- NOTE | 2022-06-18 08:11 | DI.US.S_ITS ---
PROCEDURE: US SOFT TISSUE HEAD AND NECK INDICATIONS: BILATERAL LUMPS INFERIOR TO EARS TECHNIQUE: Real-time scanning was performed of the neck region of interest, with image documentation. COMPARISON: [facility], US, US SOFT TISSUE HEAD AND NECK, 07/03/2020, 14:47. FINDINGS: Prominent lymph nodes are seen at the posterior aspect of the parotid glands bilaterally measuring up to 1.2 x 1 x 0 x 0.9 cm on the left and 1.6 x 1.1 x 1.6 cm on the right. IMPRESSION: Nonspecific intraparotid lymph nodes are seen bilaterally, which do not appear significantly changed when compared to the ultrasound from 07/03/2020. Approved by: Adair Kidd M.D. on 06/18/2022 at 9:41
== END ==
PROVIDERS: PCP Family Medicine; Referring Provider Family Medicine; Visit Provider Family Medicine
DX: R22.1 Localized swelling, mass and lump, neck (principal)
CPT/HCPCS: 76536

== ENCOUNTER → 2022-07-02 14:36 | Outpatient (CLI) | payer OTHER, MEDICARE, SELFPAY ==
[2022-01-29 10:34] VITALS: BMI 48.2
--- NOTE | 2022-07-02 14:39 | DI.RAD.S_ITS ---
PROCEDURE: XR CERVICAL SPINE 2V OR 3V INDICATIONS: Neck pain TECHNIQUE: 3 view(s) of the cervical spine were acquired. COMPARISON: None. FINDINGS: Bones: No fractures or dislocations to the C7 level. The lateral masses of C1 appear intact on the odontoid view. No suspicious bony lesions. There is moderate degenerative disease at C6-C7. Soft tissues: No prevertebral soft tissue swelling. IMPRESSION: Moderate degenerative disc disease at C6-C7. Dictated by: Holli Anna M.D. on 07/02/2022 at 16:52 Approved by: Holli Anna M.D. on 07/02/2022 at 16:54
== END ==
PROVIDERS: PCP Family Medicine; Referring Provider Physician Assistant; Visit Provider Physician Assistant
DX: M50.323 Other cervical disc degeneration at C6-C7 level (principal)
CPT/HCPCS: 72040

== ENCOUNTER → 2022-07-09 13:55 | Outpatient (CLI) | payer OTHER, MEDICARE, SELFPAY ==
[2022-01-29 10:34] VITALS: BMI 48.2
[2022-07-09 14:31] LABS: Hematocrit 38.2 % (36-46); Hemoglobin 12.5 g/dL (12.0-16.0)
[2022-07-09 14:53] LABS: HEMOLYSIS < 15 (0-50); Iron 38 ug/dL (37-170)
[2022-07-09 15:07] LABS: Percent Iron Saturation 8 % (15-50); Total Iron Binding Capacity 463 ug/dL (265-497); Transferrin 330 mg/dL (206-381)
[2022-07-09 15:29] LABS: Ferritin 29 ng/mL (6-137)
[2022-07-09 15:44] LABS: Vitamin B12 427 pg/mL (239-931)
== END ==
PROVIDERS: PCP Family Medicine; Referring Provider Family Medicine; Visit Provider Family Medicine
DX: R42 Dizziness and giddiness (principal); R53.83 Other fatigue; E11.9 Type 2 diabetes mellitus without complications
CPT/HCPCS: 36415; 82607; 82728; 83036; 83540; 83550; 85014; 85018

== ENCOUNTER 2022-07-15 08:41 | Inpatient (IN) | payer OTHER, MEDICARE, SELFPAY ==
[2022-07-14 10:22] VITALS: BMI 48.2
[2022-07-15] VITALS (26 sets, daily range): BP systolic 125–148; BP diastolic 62–90; PULSE 90–150; RESP 16–23; TEMP 36.5–36.7; O2SAT 93–100; BMI 46.0
--- NOTE | 2022-07-15 08:56 | DI.RAD.S_ITS ---
PROCEDURE: XR CHEST 1V INDICATIONS: chest pain TECHNIQUE: One view of the chest was acquired. COMPARISON: [facility], CR, XR CHEST 1V, 03/01/2022, 18:53. FINDINGS: Surgical changes and devices: None. Lungs and pleura: Lungs are clear. No pleural effusions or pneumothorax. Mediastinum: Mediastinal contours appear normal. Heart size is normal. Bones and chest wall: No suspicious bony lesions. Overlying soft tissues appear unremarkable. IMPRESSION: No acute cardiopulmonary pathology. Dictated by: Lambert King M.D. on 07/15/2022 at 9:44 Approved by: Lambert King M.D. on 07/15/2022 at 9:45
--- NOTE | 2022-07-15 09:09 | ED.CHESTPAIN ---
HPI - Chest Pain General Chief Complaint: Chest Pain Stated Complaint: chest pain Time Seen by Provider: 07/15/22 08:45 History of Present Illness HPI narrative: 41-year-old female smoker with history of prior pulmonary emboli Xarelto, hypoxemia, anasarca, pulmonary hypertension, anxiety presents with a chief complaint of a sharp and stabbing central chest pain that woke her from sleep. She states that there is no obvious provocation, palliation or radiation. She states that she had nausea and 1 episode of vomiting right after the pain started. She states that she is also had 1 large episode of bloody diarrhea. She is not dizzy nor weak or lightheaded. She denies any fever or chills. She denies any change in diet or medications. She denies any history of cancer, recent travel or hospitalization. She denies recent use of antibiotics. She does not drink alcohol. She denies any bloody emesis. She denies any dark and tarry stool. Related Data Home Medications Medication Instructions Recorded Confirmed acetaminophen 500 mg tablet 2,000 mg PO BID 09/23/18 07/02/22 (Tylenol Extra Strength) magnesium 250 mg tablet 500 mg PO DAILY 06/29/19 07/02/22 fluticasone 100 mcg-salmeterol 50 1 puff inhalation BID 07/11/19 07/02/22 mcg/dose blistr powdr for inhalation (Advair Diskus) ferrous sulfate 325 mg (65 mg 325 mg PO DAILY Anemia 01/07/21 07/02/22 iron) tablet Previous Rx's Medication Instructions Recorded lancets 33 gauge (Easy Touch Twist #100 ea 12/08/18 Lancets) Compressioin Stockings #1 ea 10/13/19 [place] Blood Glucose Test Strips #180 ea 08/10/20 omeprazole 20 mg capsule,delayed See Rx Instructions .Route 10/07/21 release .COMPLEX #60 caps metformin 500 mg tablet 1,000 mg PO BID #120 tabs 10/24/21 albuterol sulfate 90 mcg/actuation See Rx Instructions .Route 12/13/21 aerosol inhaler .COMPLEX #18 grams doxepin 100 mg capsule 200 mg PO BEDTIME #60 caps 12/31/21 rivaroxaban 20 mg tablet (Xarelto) See Rx Instructions .Route 01/13/22 .COMPLEX #30 tabs ipratropium bromide 17 1 puff inhalation Q8H #12.9 grams 01/22/22 mcg/actuation HFA aerosol inhaler levalbuterol tartrate 45 1 puff inhalation Q4-6H PRN 01/22/22 mcg/actuation aerosol inhaler shortness of breath or wheezing #15 grams pregabalin 300 mg capsule 300 mg PO BID #180 caps 01/22/22 levothyroxine 25 mcg tablet See Rx Instructions .Route 01/23/22 .COMPLEX #30 tabs fluconazole 150 mg tablet 150 mg PO Q3D 2 doses #2 tabs 03/03/22 terazosin 2 mg capsule See Rx Instructions .Route 04/23/22 .COMPLEX #30 caps furosemide 40 mg tablet See Rx Instructions .Route 05/20/22 .COMPLEX #135 tabs cyclobenzaprine 10 mg tablet See Rx Instructions .Route 06/11/22 .COMPLEX #90 tabs norgestrel 0.3 mg-ethinyl 2 tab PO DAILY #52 tabs 06/24/22 estradiol 30 mcg tablet aripiprazole 30 mg tablet 30 mg PO DAILY 30 days #30 tabs 06/27/22 spironolactone 25 mg tablet See Rx Instructions .Route 06/27/22 .COMPLEX #30 tabs meclizine 25 mg tablet See Rx Instructions .Route 07/14/22 .COMPLEX #90 tabs Allergies Allergy/AdvReac Type Severity Reaction Status Date / Time carisoprodol [CARISOPRODOL] AdvReac Severe urinary Verified 05/07/22 14:44 retention fosphenytoin AdvReac Severe Seizures Verified 05/07/22 14:44 Latex, Natural Rubber AdvReac Mild Rash Verified 05/07/22 14:44 Review of Systems Review of Systems Narrative: GENERAL: Denies chills, fatigue, malaise, fever, sweats. HEENT: Denies sinus pain, ear pain, sore throat, difficulty swallowing, dizziness. RESPIRATORY: Denies dyspnea, cough, wheezing, hemoptysis, sputum. CARDIOVASCULAR: See HPI GASTROINTESTINAL: See HPI : Denies dysuria, frequency, incontinence, hematuria, urinary retention. MUSCULOSKELETAL: denies weakness, joint pain, or bony pain SKIN: Denies rash, skin lesions, or other NEUROLOGIC: Denies weakness, headache, numbness, change in speech, confusion, seizures, incoordination. PSYCHIATRIC: No concerning psychosocial issues. 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) Morbid obesity Narcotic habituation, continuous Nocturnal hypoxemia Obstipation LYLA (obstructive sleep apnea) Ovarian cyst Plantar fasciitis Psychogenic nonepileptic seizure Pulmonary embolism RBBB (right bundle branch block) Sinus tachycardia Status post laminectomy (12/14/15) Suicide attempt Tobacco abuse Tylenol overdose Urinary retention Surgical History History of carpal tunnel repair (~10/30/14) History of colonoscopy History of esophagogastroduodenoscopy (EGD) History of laminectomy History of laminectomy (~09/2016) History of lumbar spinal fusion (12/22/18) Hx of toe surgery (05/16/20) S/P epidural steroid injection (11/2013) Status post dilation and curettage (2008) Family History Grandfather Diabetes mellitus Family/Other Pancreatic cancer Social History household members: spouse Smoking Status: Current some day smoker alcohol intake: current eating out: 1-3 times/week Type(s) of exercise: normal ROM and activity and sedentary lifestyle Smoking Status: Current some day smoker tobacco type: cigarettes alcohol intake frequency: a few times a week Substance Use Type: does not use Exam Narrative Exam Narrative: GENERAL: [41] year old patient appears stated age. Well-developed patient, in mild distress. HEAD: Atraumatic. Normocephalic. EYES: Pupils equal round and reactive. Extraocular motions intact. No scleral icterus. No injection or drainage. ENT: Nose without bleeding, purulent drainage. Throat without erythema, tonsillar hypertrophy or exudate. Airway patent. NECK: Trachea midline. Non tender CARDIOVASCULAR: Tachycardic and regular rhythm without murmurs, gallops, or rubs. RESPIRATORY: Clear to auscultation. Breath sounds equal bilaterally. No wheezes, rales, or rhonchi. GASTROINTESTINAL: Abdomen soft, non-tender, nondistended. EXTREMITIES: No edema or joint tenderness. BACK: Nontender without deformity or crepitance. No flank tenderness. NEURO: AOx3. SKIN: No rash or erythema of visible areas Initial Vital Signs Initial Vital Signs: Vital Signs Temperature 98.1 F 07/15/22 08:51 Pulse Rate 150 H 07/15/22 08:51 Respiratory Rate 20 07/15/22 08:51 Blood Pressure 148/80 H 07/15/22 08:51 Pulse Oximetry 99 07/15/22 08:51 Oxygen Delivery Method 07/15/22 08:51 Course Orders Ordered: ED Orders 07/15/22 08:56 XR chest 1V Stat EKG-12 Lead Stat 07/15/22 09:00 Complete Blood Count AUTO DIFF Stat Comprehensive Metabolic Panel Stat D Dimer Stat Lipase Stat NT-proBNP (BNP-Adult 18+) Stat Procalcitonin Stat Prothrombin Time INR Stat Troponin & CK Cardiac Panel Stat Type and Screen Stat 07/15/22 10:43 CT abdomen pelvis w con Stat 07/15/22 12:20 Hemoglobin and Hematocrit Stat Troponin & CK Cardiac Panel Stat 07/15/22 14:26 COVID19 -Nasal RAPID/Pre-Proc Stat Discontinued Medications Sodium Chloride (Normal Saline 0.9%) 1,000 mls @ 1,000 mls/hr IV BOLUS ONE Stop: 07/15/22 12:41 Last Infusion: 07/15/22 13:06 Dose: 0 mls/hr Documented By: Admin: 07/15/22 12:04 Dose: 1,000 mls/hr Documented By: FATIMAH Ondansetron HCl (Ondansetron 4 Mg/2 Ml Inj) 4 mg IV NOW ONE Stop: 07/15/22 08:57 Last Admin: 07/15/22 09:35 Dose: 4 mg Documented By: FATIMAH Pantoprazole Sodium (Pantoprazole 40 Mg Vial) 40 mg IV NOW ONE Stop: 07/15/22 08:58 Last Admin: 07/15/22 09:34 Dose: 40 mg Documented By: FATIMAH Vital Signs Vital signs: Vital Signs - 8 hr 07/15/22 08:51 07/15/22 09:17 07/15/22 09:30 Temperature 98.1 F Pulse Rate 150 H 131 H 132 H Respiratory Rate 20 18 22 Blood Pressure 148/80 H Pulse Oximetry 99 96 98 Oxygen Delivery Method Room Air 07/15/22 10:00 07/15/22 10:30 07/15/22 11:00 Temperature Pulse Rate 129 H 132 H 126 H Respiratory Rate 23 20 Blood Pressure Pulse Oximetry 97 96 98 Oxygen Delivery Method 07/15/22 11:30 07/15/22 12:00 07/15/22 12:03 Temperature Pulse Rate 128 H 130 H 127 H Respiratory Rate Blood Pressure Pulse Oximetry 93 96 95 Oxygen Delivery Method 07/15/22 12:03 07/15/22 12:30 07/15/22 12:30 Temperature Pulse Rate 123 H Respiratory Rate Blood Pressure 125/74 127/72 Pulse Oximetry 100 Oxygen Delivery Method 07/15/22 13:00 07/15/22 13:01 07/15/22 13:01 Temperature Pulse Rate 124 H 124 H Respiratory Rate Blood Pressure 132/73 Pulse Oximetry 96 97 Oxygen Delivery Method 07/15/22 13:30 07/15/22 13:31 07/15/22 13:31 Temperature Pulse Rate 123 H 125 H Respiratory Rate Blood Pressure 140/73 Pulse Oximetry 96 96 Oxygen Delivery Method 07/15/22 14:00 07/15/22 14:01 07/15/22 14:01 Temperature Pulse Rate 126 H 126 H Respiratory Rate Blood Pressure 143/62 H Pulse Oximetry 98 97 Oxygen Delivery Method 07/15/22 14:30 07/15/22 14:37 07/15/22 14:37 Temperature Pulse Rate 129 H 124 H Respiratory Rate Blood Pressure 142/80 H Pulse Oximetry 96 Oxygen Delivery Method MDM - Chest Pain Lab Data 07/15/22 09:00 07/15/22 09:00 Labs: Lab Results 07/15/22 07/15/22 07/15/22 Range/Units 09:00 09:00 09:00 WBC 8.4 (4.5-11.0) X10^3/uL RBC 4.64 (4.0-5.2) X10^6/uL Hgb 13.0 (12.0-16.0) g/dL Hct 38.5 (36-46) % MCV 83.0 (80-100) fL MCH 28.0 (26-34) PG MCHC 33.7 (30-36) % RDW 14.5 (11.6-14.8) % Plt Count 253 (150-400) X10^3/uL Neut % (Auto) 61.4 (50-75) % Lymph % (Auto) 27.1 (25-40) % [place] % (Auto) 9.2 (3-14) % Eos % (Auto) 1.8 L (2-4) % Baso % (Auto) 0.5 (0-2) % Neut # (Auto) 5200 (8982-7055) /uL Lymph # (Auto) 2300 (2022-4090) /uL [place] # (Auto) 800 (0-900) /uL Eos # (Auto) 200 (0-450) /uL Baso # (Auto) 0 (0-100) /uL PT 13.5 H (10.1-12.7) SECONDS INR 1.2 (0.9-1.3) D-Dimer 260 (<500) ng/ml Sodium 137 (137-145) mmol/L Potassium 3.8 (3.4-5.1) mmol/L Chloride 96 L (98-107) mmol/L Carbon Dioxide 26 (22-32) mmol/L BUN 11 (7-17) mg/dL Creatinine 0.44 L (0.52-1.04) mg/dL Estimated GFR > 60 (>60) mL/min BUN/Creatinine Ratio 25.0 H (6-22) Glucose 186 H (70-100) mg/dL Calcium 9.9 (8.4-10.2) mg/dL Total Bilirubin 0.3 (0.2-1.3) mg/dL AST 43 H (14-36) IU/L ALT 46 H (<35) IU/L Alkaline Phosphatase 61 (38-126) U/L Total Creatine Kinase 51 (30-135) U/L CK-MB (CK-2) TNP CK-MB (CK-2) Rel Index TNP Troponin I < 0.012 (0.01-0.034) ng/mL NT-Pro-B Natriuret Pep (<125) pg/mL Total Protein 8.1 (6.3-8.2) g/dL Albumin 4.4 (3.5-5.0) g/dL Globulin 3.7 (1.7-4.1) g/dL Albumin/Globulin Ratio 1.2 (1.0-2.8) Lipase 85 (23-300) U/L Procalcitonin 0.06 (<0.5) ng/mL Blood Type Antibody Screen 07/15/22 07/15/22 07/15/22 Range/Units 09:00 09:00 12:20 WBC (4.5-11.0) X10^3/uL RBC (4.0-5.2) X10^6/uL Hgb 12.7 (12.0-16.0) g/dL Hct 38.2 (36-46) % MCV (80-100) fL MCH (26-34) PG MCHC (30-36) % RDW (11.6-14.8) % Plt Count (150-400) X10^3/uL Neut % (Auto) (50-75) % Lymph % (Auto) (25-40) % [place] % (Auto) (3-14) % Eos % (Auto) (2-4) % Baso % (Auto) (0-2) % Neut # (Auto) (7284-4038) /uL Lymph # (Auto) (9693-4245) /uL [place] # (Auto) (0-900) /uL Eos # (Auto) (0-450) /uL Baso # (Auto) (0-100) /uL PT (10.1-12.7) SECONDS INR (0.9-1.3) D-Dimer (<500) ng/ml Sodium (137-145) mmol/L Potassium (3.4-5.1) mmol/L Chloride (98-107) mmol/L Carbon Dioxide (22-32) mmol/L BUN (7-17) mg/dL Creatinine (0.52-1.04) mg/dL Estimated GFR (>60) mL/min BUN/Creatinine Ratio (6-22) Glucose (70-100) mg/dL Calcium (8.4-10.2) mg/dL Total Bilirubin (0.2-1.3) mg/dL AST (14-36) IU/L ALT (<35) IU/L Alkaline Phosphatase (38-126) U/L Total Creatine Kinase (30-135) U/L CK-MB (CK-2) CK-MB (CK-2) Rel Index Troponin I (0.01-0.034) ng/mL NT-Pro-B Natriuret Pep 18 (<125) pg/mL Total Protein (6.3-8.2) g/dL Albumin (3.5-5.0) g/dL Globulin (1.7-4.1) g/dL Albumin/Globulin Ratio (1.0-2.8) Lipase (23-300) U/L Procalcitonin (<0.5) ng/mL Blood Type O Positive Antibody Screen Negative 07/15/22 Range/Units 12:20 WBC (4.5-11.0) X10^3/uL RBC (4.0-5.2) X10^6/uL Hgb (12.0-16.0) g/dL Hct (36-46) % MCV (80-100) fL MCH (26-34) PG MCHC (30-36) % RDW (11.6-14.8) % Plt Count (150-400) X10^3/uL Neut % (Auto) (50-75) % Lymph % (Auto) (25-40) % [place] % (Auto) (3-14) % Eos % (Auto) (2-4) % Baso % (Auto) (0-2) % Neut # (Auto) (3217-2375) /uL Lymph # (Auto) (1666-4437) /uL [place] # (Auto) (0-900) /uL Eos # (Auto) (0-450) /uL Baso # (Auto) (0-100) /uL PT (10.1-12.7) SECONDS INR (0.9-1.3) D-Dimer (<500) ng/ml Sodium (137-145) mmol/L Potassium (3.4-5.1) mmol/L Chloride (98-107) mmol/L Carbon Dioxide (22-32) mmol/L BUN (7-17) mg/dL Creatinine (0.52-1.04) mg/dL Estimated GFR (>60) mL/min BUN/Creatinine Ratio (6-22) Glucose (70-100) mg/dL Calcium (8.4-10.2) mg/dL Total Bilirubin (0.2-1.3) mg/dL AST (14-36) IU/L ALT (<35) IU/L Alkaline Phosphatase (38-126) U/L Total Creatine Kinase 56 (30-135) U/L CK-MB (CK-2) TNP CK-MB (CK-2) Rel Index TNP Troponin I < 0.012 (0.01-0.034) ng/mL NT-Pro-B Natriuret Pep (<125) pg/mL Total Protein (6.3-8.2) g/dL Albumin (3.5-5.0) g/dL Globulin (1.7-4.1) g/dL Albumin/Globulin Ratio (1.0-2.8) Lipase (23-300) U/L Procalcitonin (<0.5) ng/mL Blood Type Antibody Screen ECG Data Interpretation: [0852] EKG is sinus tachycardia with regular rhythm and rate 144 [ ] and free of any signs of ischemia or ectopy. No ST segmental elevation or depression. No T wave inversions. RBBB (seen on multiple prior) MDM Narrative Medical decision making narrative: CC: 41-year-old female with chest pain, vomiting and bloody diarrhea Complicating co-morbidities: BMI 46, anticoagulation, prior PE Data collected from: Patient Medical records reviewed: Multiple prior visits reviewed Differential considered, but not limited to: Bleeding ulcer, pulmonary embolism, cardiac ischemia, pneumonia versus other Exam documented above, pertinent findings include: Tachycardic and regular, no significant work of breathing, abdomen soft and nontender, bowel sounds present if not increased, no significant rectal bleeding, however heme-positive on exam Lab Test results independently reviewed as above. Pertinent findings: Independently reviewed EKG as above Imaging studies independently reviewed: CT abdomen without significant findings Consultations: Dr. Grace happy to consult, Dr. Lynch happy to admit, write orders Treatments: saline, protonix, zofran Re-evaluations: Patient's discomfort improved, no large amount of bleeding in the department, she does however remain persistently tachycardic. Discussion: Patient requires hospitalization for further evaluation large amount of rectal bleeding while anticoagulated in the setting of persistent tachycardia. H&H has remained staple, troponins negative, pulmonary embolism considered as part of presentation given her history, however thought unlikely given persistence of anticoagulation and D-dimer below cutoff Discharge Plan Departure Patient Disposition: Admitted as Observation Clinical Impression: Acute GI bleeding, Tachycardia, Anticoagulated Admit Date/Time: 07/15/22 15:39
[2022-07-15 09:15] LABS: Add Manual Diff / Slide Review NO; Basophils Absolute Auto 0 /uL (0-100); Basophils Percent Auto 0.5 % (0-2); Eosinophils Absolute Auto 200 /uL (0-450); Eosinophils Percent Auto 1.8 % (2-4); Hematocrit 38.5 % (36-46); Lymphocytes Absolute Auto 2300 /uL (1100-4500); Lymphocytes Percent Auto 27.1 % (25-40); Mean Corpuscular HGB Conc 33.7 % (30-36); Monocytes Absolute Auto 800 /uL (0-900); Monocytes Percent Auto 9.2 % (3-14); Neutrophils Absolute Auto 5200 /uL (1500-7000); Neutrophils Percent Auto 61.4 % (50-75); Platelet Count 253 X10^3/uL (150-400); Red Blood Cell Count 4.64 X10^6/uL (4.0-5.2); Red Cell Distribution Width 14.5 % (11.6-14.8); White Blood Cell Count 8.4 X10^3/uL (4.5-11.0)
[2022-07-15 09:27] LABS: INR 1.2 (0.9-1.3); Prothrombin Time 13.5 SECONDS (10.1-12.7)
[2022-07-15 09:29] LABS: D Dimer 260 ng/ml (<500)
[2022-07-15 09:31] LABS: Alanine Aminotransferase 46 IU/L (<35); Albumin 4.4 g/dL (3.5-5.0); Albumin Globulin Ratio 1.2 (1.0-2.8); Alkaline Phosphatase 61 U/L (38-126); Aspartate Aminotransferase 43 IU/L (14-36); Bilirubin Total 0.3 mg/dL (0.2-1.3); Blood Urea Nitrogen 11 mg/dL (7-17); Calcium 9.9 mg/dL (8.4-10.2); Carbon Dioxide 26 mmol/L (22-32); Chloride 96 mmol/L (98-107); Creatine Kinase 51 U/L (30-135); Estimated Glomerular Filt Rate > 60 mL/min (>60); Globulin 3.7 g/dL (1.7-4.1); Glucose 186 mg/dL (70-100); HEMOLYSIS < 15 (0-50); Lipase 85 U/L (23-300); Potassium 3.8 mmol/L (3.4-5.1); Sodium 137 mmol/L (137-145); Total Protein 8.1 g/dL (6.3-8.2)
[2022-07-15] MEDS: PANTOPRAZOLE 40 MG VIAL IV ×2 (09:34→20:26)
[2022-07-15] MEDS: ONDANSETRON 4 MG/2 ML INJ IV (09:35)
[2022-07-15 09:43] LABS: Troponin I < 0.012 ng/mL (0.01-0.034)
[2022-07-15 09:48] LABS: Procalcitonin 0.06 ng/mL (<0.5)
--- NOTE | 2022-07-15 09:58 | PC.NURSE ---
Pt reports chest pain in the middle of the night that woke her from sleep, 5/10 midsternal without radiation. States that she had bloody diarrhea and 4-5 episodes of vomiting and thinks she has norovirus. HR noted to be 150's on arrival. Afebrile 98.[address] cardiac history. Dr Eckert made aware and at bedside.
--- NOTE | 2022-07-15 10:43 | DI.CT.S_ITS ---
PROCEDURE: CT ABDOMEN PELVIS W CON INDICATIONS: severe abdominal pain TECHNIQUE: After the administration of oral and IV contrast, axial sections were acquired from the lung bases to the pubic symphysis. Coronal and sagittal reformats were performed. For radiation dose reduction, the following was used: automated exposure control, adjustment of mA and/or kV according to patient size. COMPARISON: [facility], CT, ABDOMEN/PELVIS WITH CONTRAST, 12/03/2015, 16:59. [facility], CT, CT ABDOMEN PELVIS W CON, 01/02/2022, 17:21. [facility], CR, XR CHEST 1V, 07/15/2022, 9:31. [facility], CT, CT ANGIO CHEST PE PROTOCOL, 03/01/2022, 21:05. FINDINGS: Image quality: Excellent. Lung bases: Unremarkable. Heart: No significant findings. ABDOMEN: Liver: Unremarkable. Gallbladder: Unremarkable. Biliary ducts: Unremarkable. Pancreas: Unremarkable. Spleen: Unremarkable. Adrenal Glands: Unremarkable. Kidneys and Ureters: Unremarkable. Stomach and Bowel: Stomach, small bowel loops, and colon are unremarkable. Colonic diverticulosis is seen, without findings of active diverticulitis. A normal appendix is seen. Peritoneum: No abnormal intraperitoneal fluid. No free air. Ventral Wall: No hernia. Abdominal Nodes: No retroperitoneal or mesenteric adenopathy by size criteria. Vessels: Aorta and inferior vena cava are normal in size. PELVIS: Pelvic Organs: The uterus appears normal for age. No adnexal masses are seen. Bladder: Unremarkable. Pelvic Nodes: No enlarged lymph nodes. Miscellaneous: No inguinal hernias are seen. Bones: Lumbar spine postoperative and degenerative changes are seen. IMPRESSION: A cause of severe abdominal pain cannot be seen. Colonic diverticulosis is seen, without findings of active diverticulitis. A normal appendix is seen. Additional findings: Lumbar spine postoperative and degenerative change Dictated by: Rickie Lundberg M.D. on 07/15/2022 at 10:12 Approved by: Rickie Lundberg M.D. on 07/15/2022 at 10:14
[2022-07-15 10:45] LABS: NT-proBNP (BNP-Adult 18+) 18 pg/mL (<125)
[2022-07-15] MEDS: SODIUM CHLORIDE 0.9% 1,000 ML 1000 ML IV (12:04)
[2022-07-15 12:27] LABS: Hematocrit 38.2 % (36-46); Hemoglobin 12.7 g/dL (12.0-16.0)
[2022-07-15 12:42] LABS: Creatine Kinase 56 U/L (30-135)
[2022-07-15 12:55] LABS: Troponin I < 0.012 ng/mL (0.01-0.034)
[2022-07-15 16:02] LABS: COVID19 -Nasal RAPID Negative (Negative)
--- NOTE | 2022-07-15 17:39 | P.HP_ITS ---
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 The pt reports she was in the [facility] ER on 07/09 due to severe dizziness. While there, she was noted to be tachycardic in the 160s. They ultimately used IV Metoprolol to slow her HR. She was discharged home. For approximately the last 3 days she has had interm ittent substernal chest pain that can radiate to either side. It feels like a pressure/squeezing sensation. It is not triggered by exercise/movement. It usually lasts around 20 minutes and then self-resolves. The pain is not associated with palpitations or SOB. It does not radiate to her arm or jaw. She had associated nausea and vomiting only once, last night, when the pain was most severe. The pt does report having similar pains in the past, but they typically do not recur this often/long. The pt also reports this late morning having an episode of diarrhea that was accompanied by a large amount of bright red blood. There were some small clots as well. She has never had blood in her stool before. She has mild diffuse lower abdominal pain but nothing severe. She has been eating normally. She denies any diarrhea prior to this episode, and had a normal BM earlier in the day. She has been taking her medications as prescribed, and denies any other bleeding or over easy bruising. She denies any vomiting or hematemesis. She continues to feel dizzy, but states this has improved from last week, not worsened. 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) Morbid obesity Narcotic habituation, continuous Nocturnal hypoxemia Obstipation LYLA (obstructive sleep apnea) Ovarian cyst Plantar fasciitis Psychogenic nonepileptic seizure Pulmonary embolism RBBB (right bundle branch block) Sinus tachycardia Status post laminectomy (12/14/15) Suicide attempt Tobacco abuse Tylenol overdose Urinary retention Surgical History History of carpal tunnel repair (~10/30/14) History of colonoscopy History of esophagogastroduodenoscopy (EGD) History of laminectomy History of laminectomy (~09/2016) History of lumbar spinal fusion (12/22/18) Hx of toe surgery (05/16/20) S/P epidural steroid injection (11/2013) Status post dilation and curettage (2008) Family & Social History Family History Grandfather Diabetes mellitus Family/Other Pancreatic cancer Social History: household members spouse Safety & Behavioral: Feels Safe in Current Yes Environment Been Physically Hurt or No Threatened By a Person Tobacco & Substance use: Tobacco type cigarettes Smoking Status Current some day smoker alcohol intake current alcohol intake frequency a few times a week Substance Use Type does not use Meds Home Medications and Allergies Home Medications Medication Instructions Recorded Confirmed Type acetaminophen 500 mg tablet 2,000 mg PO BID 09/23/18 07/02/22 History (Tylenol Extra Strength) lancets 33 gauge (Easy Touch Twist #100 ea 12/08/18 07/02/22 Rx Lancets) magnesium 250 mg tablet 500 mg PO DAILY 06/29/19 07/02/22 History fluticasone 100 mcg-salmeterol 50 1 puff inhalation BID 07/11/19 07/02/22 History mcg/dose blistr powdr for inhalation (Advair Diskus) Compressioin Stockings #1 ea 10/13/19 07/02/22 Rx Livongo Blood Glucose Test Strips #180 ea 08/10/20 07/02/22 Rx ferrous sulfate 325 mg (65 mg 325 mg PO DAILY Anemia 01/07/21 07/02/22 History iron) tablet omeprazole 20 mg capsule,delayed See Rx Instructions .Route 10/07/21 07/02/22 Rx release .COMPLEX #60 caps metformin 500 mg tablet 1,000 mg PO BID #120 tabs 10/24/21 07/02/22 Rx albuterol sulfate 90 mcg/actuation See Rx Instructions .Route 12/13/21 07/02/22 Rx aerosol inhaler .COMPLEX #18 grams doxepin 100 mg capsule 200 mg PO BEDTIME #60 caps 12/31/21 07/02/22 Rx rivaroxaban 20 mg tablet (Xarelto) See Rx Instructions .Route 01/13/22 07/02/22 Rx .COMPLEX #30 tabs ipratropium bromide 17 1 puff inhalation Q8H #12.9 grams 01/22/22 07/02/22 Rx mcg/actuation HFA aerosol inhaler levalbuterol tartrate 45 1 puff inhalation Q4-6H PRN 01/22/22 07/02/22 Rx mcg/actuation aerosol inhaler shortness of breath or wheezing #15 grams pregabalin 300 mg capsule 300 mg PO BID #180 caps 01/22/22 07/02/22 Rx levothyroxine 25 mcg tablet See Rx Instructions .Route 01/23/22 07/02/22 Rx .COMPLEX #30 tabs fluconazole 150 mg tablet 150 mg PO Q3D 2 doses #2 tabs 03/03/22 07/02/22 Rx terazosin 2 mg capsule See Rx Instructions .Route 04/23/22 07/02/22 Rx .COMPLEX #30 caps furosemide 40 mg tablet See Rx Instructions .Route 05/20/22 07/02/22 Rx .COMPLEX #135 tabs cyclobenzaprine 10 mg tablet See Rx Instructions .Route 06/11/22 07/02/22 Rx .COMPLEX #90 tabs norgestrel 0.3 mg-ethinyl 2 tab PO DAILY #52 tabs 06/24/22 07/02/22 Rx estradiol 30 mcg tablet aripiprazole 30 mg tablet 30 mg PO DAILY 30 days #30 tabs 06/27/22 07/02/22 Rx spironolactone 25 mg tablet See Rx Instructions .Route 06/27/22 07/02/22 Rx .COMPLEX #30 tabs meclizine 25 mg tablet See Rx Instructions .Route 07/14/22 Rx .COMPLEX #90 tabs Allergies Allergy/AdvReac Type Severity Reaction Status Date / Time carisoprodol [CARISOPRODOL] AdvReac Severe urinary Verified 05/07/22 14:44 retention fosphenytoin AdvReac Severe Seizures Verified 05/07/22 14:44 Latex, Natural Rubber AdvReac Mild Rash Verified 05/07/22 14:44 Exam Vital Signs (past 8 hours): - 07/15/22 10:00 07/15/22 10:30 07/15/22 11:00 Pulse Rate 129 H 132 H 126 H Respiratory Rate 23 20 Blood Pressure Pulse Oximetry 97 96 98 07/15/22 11:30 07/15/22 12:00 07/15/22 12:03 Pulse Rate 128 H 130 H 127 H Respiratory Rate Blood Pressure Pulse Oximetry 93 96 95 07/15/22 12:03 07/15/22 12:30 07/15/22 12:30 Pulse Rate 123 H Respiratory Rate Blood Pressure 125/74 127/72 Pulse Oximetry 100 07/15/22 13:00 07/15/22 13:01 07/15/22 13:01 Pulse Rate 124 H 124 H Respiratory Rate Blood Pressure 132/73 Pulse Oximetry 96 97 07/15/22 13:30 07/15/22 13:31 07/15/22 13:31 Pulse Rate 123 H 125 H Respiratory Rate Blood Pressure 140/73 Pulse Oximetry 96 96 07/15/22 14:00 07/15/22 14:01 07/15/22 14:01 Pulse Rate 126 H 126 H Respiratory Rate Blood Pressure 143/62 H Pulse Oximetry 98 97 07/15/22 14:30 07/15/22 14:37 07/15/22 14:37 Pulse Rate 129 H 124 H Respiratory Rate Blood Pressure 142/80 H Pulse Oximetry 96 07/15/22 15:00 07/15/22 15:30 07/15/22 16:00 Pulse Rate 121 H 121 H 118 H Respiratory Rate 21 Blood Pressure Pulse Oximetry 96 97 98 07/15/22 16:30 07/15/22 17:00 Pulse Rate 116 H 119 H Respiratory Rate 18 22 Blood Pressure Pulse Oximetry 98 98 Oxygen Delivery Method Room Air Narrative Exam Narrative: GEN - alert, cooperative and no distress, sitting comfortably in bed, tearful HEENT - normocephalic and atraumatic, slightly dry mucus membranes in mouth NECK - FROM, no adenopathy, no JVD HEART - RRR, S1, S2 normal, no S3 or S4, no murmurs LUNGS - symmetric chest rise, no accessory muscles, clear to auscultation bilaterally ABD - nondistended, normal bowel sounds, soft, diffusely mildly tender without rebound/guarding/rigidity EXT - 2+ pitting edema bilateral LE, stable SKIN - face with mildly erythematous skin, under bilateral breasts and panus with erythematous rash with satellite lesions NEURO - grossly intact Objective Labs 07/15/22 12:20 07/15/22 09:00 Labs: Laboratory Results - last 24 hr 07/15/22 07/15/22 07/15/22 09:00 09:00 09:00 WBC 8.4 RBC 4.64 Hgb 13.0 Hct 38.5 MCV 83.0 MCH 28.0 MCHC 33.7 RDW 14.5 Plt Count 253 Neut % (Auto) 61.4 Lymph % (Auto) 27.1 [place] % (Auto) 9.2 Eos % (Auto) 1.8 L Baso % (Auto) 0.5 Neut # (Auto) 5200 Lymph # (Auto) 2300 [place] # (Auto) 800 Eos # (Auto) 200 Baso # (Auto) 0 PT 13.5 H INR 1.2 D-Dimer 260 Sodium 137 Potassium 3.8 Chloride 96 L Carbon Dioxide 26 BUN 11 Creatinine 0.44 L Estimated GFR > 60 BUN/Creatinine Ratio 25.0 H Glucose 186 H Calcium 9.9 Total Bilirubin 0.3 AST 43 H ALT 46 H Alkaline Phosphatase 61 Total Creatine Kinase 51 CK-MB (CK-2) TNP CK-MB (CK-2) Rel Index TNP Troponin I < 0.012 NT-Pro-B Natriuret Pep Total Protein 8.1 Albumin 4.4 Globulin 3.7 Albumin/Globulin Ratio 1.2 Lipase 85 Procalcitonin 0.06 SARS-CoV-2 (PCR) Blood Type Antibody Screen 07/15/22 07/15/22 07/15/22 09:00 09:00 12:20 WBC RBC Hgb 12.7 Hct 38.2 MCV MCH MCHC RDW Plt Count Neut % (Auto) Lymph % (Auto) [place] % (Auto) Eos % (Auto) Baso % (Auto) Neut # (Auto) Lymph # (Auto) [place] # (Auto) Eos # (Auto) Baso # (Auto) PT INR D-Dimer Sodium Potassium Chloride Carbon Dioxide BUN Creatinine Estimated GFR BUN/Creatinine Ratio Glucose Calcium Total Bilirubin AST ALT Alkaline Phosphatase Total Creatine Kinase CK-MB (CK-2) CK-MB (CK-2) Rel Index Troponin I NT-Pro-B Natriuret Pep 18 Total Protein Albumin Globulin Albumin/Globulin Ratio Lipase Procalcitonin SARS-CoV-2 (PCR) Blood Type O Positive Antibody Screen Negative 07/15/22 07/15/22 12:20 15:56 WBC RBC Hgb Hct MCV MCH MCHC RDW Plt Count Neut % (Auto) Lymph % (Auto) [place] % (Auto) Eos % (Auto) Baso % (Auto) Neut # (Auto) Lymph # (Auto) [place] # (Auto) Eos # (Auto) Baso # (Auto) PT INR D-Dimer Sodium Potassium Chloride Carbon Dioxide BUN Creatinine Estimated GFR BUN/Creatinine Ratio Glucose Calcium Total Bilirubin AST ALT Alkaline Phosphatase Total Creatine Kinase 56 CK-MB (CK-2) TNP CK-MB (CK-2) Rel Index TNP Troponin I < 0.012 NT-Pro-B Natriuret Pep Total Protein Albumin Globulin Albumin/Globulin Ratio Lipase Procalcitonin SARS-CoV-2 (PCR) Negative Blood Type Antibody Screen Assessment & Plan Assessment & Plan narrative: Pt is a 41yo woman with 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 1) Bright red blood per rectum: Hx of diverticulosis on prior colonoscopy, the same seen on CT today. Does have recent hx of alcoholism and GERD, concerning for more acute upper GI bleed although H/H stable in the ED and hemodynamically stable at this time with only mild tachycardia. - Continue mIVF overnight. Pt does appear dry on exam. - Surgery consulted, appreciate care - IV Pantoprazole, will continue PPI at discharge - Repeat H/H this evening to ensure stability 2) Chest pain: Resolved. Negative EKG, cardiac enzymes, CXR in the ED. Does have risk factors for cardiac disease of DM Type 2, HTN, recent tobacco use, mo rbid obesity, and very limited mobility/activity level. Pt does have persistent tachycardia, however D-dimer not significantly elevated, pt is fully anticoagulated at baseline, and no acute SOB/hypoxia making PE less likely. Is somewhat reproducible on exam, making musculoskeletal etiology more likely. - Continue to monitor for recurrence - Consider stress testing if has repeat episode on IV PPI 3) Hx of recurrent PE/DVT: On chronic anticoagulation with Xarelto - Hold Xarelto for now due to acute GI bleed - If develops any significant hypoxia, SOB then will scan for PE 4) Vertigo: Chronic. Seen by ENT and Neurology previously. Thought to be due to autonomic dysfunction and diabetic neuropathy. - PT consulted 5) Hypertension, Pulmonary hypertension, Anasarca: BP very minimally elevated. - Continue Lasix, Spirinolactone once on PO - No IV medications needed while NPO for now 6) DM Type 2: Baseline A1C 7.0, has increased recently - q6hr blood glucose checks while NPO - Low dose sliding scale while NPO - Restart Metformin once tolerating PO 7) Depression and anxiety: Mood has been more down recently. - Continue home Abilify, Doxepin once tolerating PO 8) Hypothyroidism: - Continue home Levothyroxine once on PO 9) Fibromyalgia: Stable - Continue home Pregabalin once tolerating PO 10) Yeast dermatitis: - Nystatin powder FEN: NPO for now pending surgery evaluation DVT: SCDs, holding anticoagulation due to bleeding Code: Full Dispo: Anticipate one midnight. Hopefully ready for discharge tomorrow after surgery eval and potential endoscopy/colonoscopy. Admitted under observation status. Time Spent With Patient Critical Care time: I spent a total of [] minutes of critical care time on this patient's care today; this time is exclusive of procedural time.
[2022-07-15] MEDS: SODIUM CHLORIDE 0.45% 1,000 ML 100 ML IV (18:50)
[2022-07-15] MEDS: BUDESONIDE 0.5 MG/2 ML NEB INH (19:34)
[2022-07-15] MEDS: ALBUTEROL 2.5 MG/3 ML NEB (ADULT) INH (19:35)
--- NOTE | 2022-07-15 20:09 | PC.NURSE ---
Pt arrived to room 202 at 1742. VSS, tachycardia on telemetry. She is A&Ox4, on RA and denies SOB,or nausea. She reports abdominal pain 2/10 and is tolerable. Last bloody diarrhea she reports was overnight last night. BG 113. Notified MD Grace to clarify NPO/meds or diet. She is cleared for a clear liquid diet. MD Land notified to clarify IVF orders for 1/2 NS at 100 ml/hr and po lasix. Per orders held lasix this evening. Pt with rash ezcema to B arms, fungal rest under breasts. She appears disheveled and covered in dirt and animal hair. Endorsed admission to oncoming RN.
[2022-07-15] MEDS: TERAZOSIN 1 MG CAPSULE 2 MG PO (20:25)
[2022-07-15] MEDS: CYCLOBENZAPRINE 10 MG TABLET PO (20:25)
[2022-07-15] MEDS: PREGABALIN 75 MG CAPSULE 300 MG PO (20:25)
[2022-07-15] MEDS: METFORMIN HCL 500 MG TABLET 1000 MG PO (20:26)
[2022-07-15] MEDS: MECLIZINE HCL 12.5 MG TABLET 25 MG PO (20:26)
[2022-07-15 22:52] LABS: Add Manual Diff / Slide Review NO; Basophils Absolute Auto 100 /uL (0-100); Basophils Percent Auto 0.7 % (0-2); Eosinophils Absolute Auto 100 /uL (0-450); Eosinophils Percent Auto 1.8 % (2-4); Hematocrit 36.2 % (36-46); Hemoglobin 11.7 g/dL (12.0-16.0); Lymphocytes Absolute Auto 2100 /uL (1100-4500); Mean Corpuscular HGB Conc 32.2 % (30-36); Mean Corpuscular Hemoglobin 27.1 PG (26-34); Mean Corpuscular Volume 84.1 fL (80-100); Monocytes Absolute Auto 600 /uL (0-900); Monocytes Percent Auto 7.7 % (3-14); Neutrophils Absolute Auto 4600 /uL (1500-7000); Neutrophils Percent Auto 61.8 % (50-75); Platelet Count 249 X10^3/uL (150-400); Red Blood Cell Count 4.31 X10^6/uL (4.0-5.2); Red Cell Distribution Width 14.6 % (11.6-14.8); White Blood Cell Count 7.5 X10^3/uL (4.5-11.0)
[2022-07-15] MEDS: ACETAMINOPHEN 325 MG TABLET 650 MG PO (23:58)
[2022-07-16] VITALS (8 sets, daily range): BP systolic 121–139; BP diastolic 74–91; PULSE 107–115; RESP 16; TEMP 36.4–36.8; O2SAT 92–97
[2022-07-16] MEDS: ALBUTEROL 2.5 MG/3 ML NEB (ADULT) INH ×4 (00:06→23:03)
[2022-07-16] MEDS: SODIUM CHLORIDE 0.45% 1,000 ML 100 ML IV (05:56)
[2022-07-16] MEDS: LEVOTHYROXINE 25 MCG TABLET PO (06:59)
[2022-07-16] MEDS: HYDROCODONE/ACET 5/325 TABLET 1 TAB PO (07:02)
[2022-07-16] MEDS: BUDESONIDE 0.5 MG/2 ML NEB INH ×2 (08:01→19:17)
[2022-07-16] MEDS: PREGABALIN 75 MG CAPSULE 300 MG PO ×2 (08:38→20:34)
[2022-07-16] MEDS: PANTOPRAZOLE 40 MG VIAL IV ×2 (08:38→20:36)
--- NOTE | 2022-07-16 08:41 | DI.ECHO.S_ITS ---
Version: 1 Study ID: [id number] [place] [address] Name: DANIELA WHITFIELD Study Date: 07/16/2022, 3: 23 PM : 1980 BP: 139 / 87 mmHg Gender: Female Height: 66 in Age: 41 Years Weight: 285 lb BSA: 2.33 mA? Ordering: BHANU EPPS Referring: BHANU EPPS Clinician: Angela Mathis Reason For Study: CHEST PAIN History: Summary Statements Sinus tachycardia. Normal LV size and wall thickness; normal wall motion and LV systolic function. EF is 60-65%. Normal chamber sizes. No valvular abnormalities. Compared to prior study 11/27/2021 no changes have occurred. Procedure: A two-dimensional transthoracic echocardiogram with color flow and Doppler was performed. The study quality was technically adequate. Comparison is made with the echocardiogram of 11/27/2021. The patient was in sinus tachycardia with heart rates between 107-114 bpm during the exam. Left Ventricle: The ejection fraction is estimated to be 60-65%. The left ventricle is normal in size and wall thickness. Right Ventricle: The right ventricle is normal in size and function. Atria: There is no Doppler evidence for an interatrial shunt. The left atrial size is normal. Right atrial size is normal. Mitral Valve: There is trace mitral regurgitation. The mitral valve is normal in structure and function. Aortic Valve: No aortic regurgitation is present. There is no aortic valve stenosis. The aortic valve is trileaflet. The aortic valve opens well. Tricuspid Valve: There is mild tricuspid regurgitation. The right ventricular systolic pressure is estimated to be at least 25 mmHg based on an estimated right atrial pressure of 3 mm Hg. The tricuspid valve is normal in structure and function. Pulmonic Valve: There is no pulmonic valvular regurgitation. The pulmonic valve leaflets are thin and pliable; valve motion is normal. Great Vessels: The dimensions of the ascending aorta are normal. The aortic root is normal size. The IVC is dilated (diameter is greater than 2.1 cm) and it collapses less than 50% with a sniff. This suggests a high right atrial pressure of 15 mm Hg. Pericardium/ Pleura: There is no pericardial effusion. There is an anterior echo-free space consistent with a fat pad. There is no pleural effusion. 2D and M-Mode Measurements and Calculations LVIDd: 5.2 cm LVOT diam: 2.14 cm LVIDs: 3.3 cm Ao root diam: 3.2 cm IVSd: 0.78 cm asc Aorta Diam: 3.3 cm LVPWd: 0.89 cm Ao Arch Diam (Prox Trans): 3.0 cm LV wills. diameter/BSA (cm/m^2): 2.22 LV sys. diameter/BSA (cm/m^2): 1.42 RVD1 (basal): 3.5 cm RVD2 (mid): 3.0 cm TAPSE: 1.77 cm LA A4 area: 13.8 member of parliament? IVC diam: 2.12 cm LA A2 area: 18.6 member of parliament? RA area: 9.0 member of parliament? LA length (vol): 4.4 cm RA long axis: 3.7 cm LA vol: 49.8 ml RA vol: 18.6 ml LA vol index: 21.4 ml/mA? RA : 8.0 ml/mA? Doppler Measurements and Calculations Ao V2 max: 173.2 cm/sec LVOT Max Lance: 122.1 cm/sec Ao V2 mean: 122.3 cm/sec LV V1 max P.0 mmHg Ao V2 VTI: 25.5 cm LV V1 VTI: 18.7 cm Ao max P.0 mmHg SV(LVOT): 67.0 ml Ao mean P.8 mmHg NADYA(I,D): 2.6 member of parliament? NADYA(V,D): 2.5 member of parliament? NADYA indexed to BSA (cm^2/m^2): 1.13 sev ratio: 0.73 MV E max lance: 85.6 cm/sec MV dec time: 0.20 sec MV A max lance: 93.8 cm/sec MV E/A: 0.91 Med Peak E' Lance: 6.8 cm/sec Lat Peak E' Lance: 9.6 cm/sec E/e' average: 10.8 TR max lance: 232.7 cm/sec PA mean P.49 mmHg TR max P.7 mmHg PA V2 max: 103.3 cm/sec Electronically signed by: Maude Kumar M.D. 07/16/2022, 5: 39 PM
[2022-07-16] MEDS: SPIRONOLACTONE 25 MG TABLET 12.5 MG PO (08:45)
[2022-07-16] MEDS: FERROUS SULFATE 325 MG TABLET PO (08:45)
[2022-07-16] MEDS: FUROSEMIDE 40 MG TABLET 100 MG PO (08:46)
[2022-07-16] MEDS: MAGNESIUM OXIDE 400 MG TABLET PO (08:47)
[2022-07-16] MEDS: ARIPiprazole 10 MG TABLET 30 MG PO (08:47)
[2022-07-16] MEDS: METFORMIN HCL 500 MG TABLET 1000 MG PO ×2 (08:47→20:34)
[2022-07-16 09:11] LABS: Add Manual Diff / Slide Review NO; Basophils Absolute Auto 0 /uL (0-100); Basophils Percent Auto 0.3 % (0-2); Eosinophils Absolute Auto 200 /uL (0-450); Eosinophils Percent Auto 2.8 % (2-4); Hematocrit 35.9 % (36-46); Hemoglobin 11.5 g/dL (12.0-16.0); Lymphocytes Absolute Auto 2300 /uL (1100-4500); Lymphocytes Percent Auto 35.8 % (25-40); Mean Corpuscular Hemoglobin 27.3 PG (26-34); Mean Corpuscular Volume 85.2 fL (80-100); Monocytes Absolute Auto 600 /uL (0-900); Neutrophils Absolute Auto 3400 /uL (1500-7000); Neutrophils Percent Auto 52.1 % (50-75); Platelet Count 225 X10^3/uL (150-400); Red Blood Cell Count 4.21 X10^6/uL (4.0-5.2); Red Cell Distribution Width 14.4 % (11.6-14.8); White Blood Cell Count 6.5 X10^3/uL (4.5-11.0)
--- NOTE | 2022-07-16 09:33 | PC.NURSE ---
Addendum entered by Cherri Lim R.N. 07/16/22 18:49: Patient just had a shower and supervisor customer services got her out and helped her dry off. She was affraid that she was going to fall when standing up with the walker, and had a full blown panic attack. She was hyperventilating and breathing hard. CONCESSIONIST and RN talked patient down and told her to slow her breathing and she is doing much better. Fresh bed made and patient is lying down and comfortable. Addendum entered by Cherri Lim R.N. 07/16/22 17:40: Patient visiting with her , she is going to take a shower soon. Denies pain at this time. Original Note: Patient is a one person assist to the bathroom with her walker. She denies pain at this time as she was given pain medication around 0700. Patient has poor hygene and needs a shower, suggested this to her. If she stays she will agree to this but if she goes home then she would like to do it at home. Bowel tones are positive, patient had a small stool and flushed before this RN could see. She states that it looked normal without any blood. Patient is visiting with her now.
--- NOTE | 2022-07-16 11:26 | CM.DANOTE ---
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 Patient and spouse sitting on the window seat; patient says she is hopeful to return home today Patient lives w/spouse and 2 dogs, no children. Patient is on disability benefits says she needs assist with higher ADLs, uses a walker in and out of the house r/t severe vertigo Patient and spouse deny needs from this DEV OPS ENGINEER, hopeful to return home today w/close outpatient follow up JEANNINE Castrejon Discharge Planning/Care Management CM Discharge Assessment Start: 07/16/22 11:12 Freq: Status: Active Protocol: Document 07/16/22 11:12 DOMINGO (Rec: 07/16/22 11:25 DOMINGO [id number]) Discharge Planning Assessment Assigned Food Cart Attendant JEANNINE Govea DPOA/Assigned Designee Name Morgan Scott, spouse Contact Information [phone] Advance Directives? No History Provided By Patient,Significant Other, Medical Record Prior Living Arrangements House Household Members spouse Type of transporation used prior to Relies on Others admit Independent with ADL's Yes: Patient uses a walker in/ out of home r/t severe vertigo Is patient alert and oriented? Yes Needs Assistance With Meal Prep,Managing Medications ,Home Chores / Shopping Caregiver for Another Yes: 2 dogs Barriers to Discharge No Comment Home w/supportive spouse, patient hopeful to discharge today w/close outpatient follow up, GI and PROPAGATOR Discharge Plan Home Transportation Arrangement Spouse Referrals Initiated None needed
[2022-07-16] MEDS: NORGESTREL ETHINYL ESTRADIOL 2 EACH PO (12:28)
--- NOTE | 2022-07-16 14:09 | PM.PN.1 ---
Subjective Subjective Date Patient Seen: 07/16/22 Time Patient Seen: 08:15 Interval history: The pt reports having mild lower abdominal discomfort this morning, however it is slightly improved from yesterday. She states that she had a small BM this morning, without any blood present in it. The stool was soft but formed. She did have a single recurrence of her chest pain last night. She states it was worse with inhalation. She denies any other SOB. Her dizziness is improved this morning. Exam Vital Signs (past 8 hours): - 07/16/22 08:02 07/16/22 08:00 Temperature 98.2 F Pulse Rate 111 H Respiratory Rate 16 Blood Pressure 139/87 Pulse Oximetry 96 96 Oxygen Delivery Method Room Air Oxygen Flow Rate 0 Oxygen Delivery Method Room Air Oxygen Flow Rate 0 Narrative Exam Narrative: Gen: NAD, sitting comfortably in bed CV: RRR, no murmurs Resp: clear to auscultation bilaterally Abd: soft, nontender, nondistended, normoactive bowel sounds, obese Ext: 2+ edema bilaterally, stable Objective Labs 07/16/22 08:55 07/15/22 09:00 Labs: Laboratory Results - last 24 hr 07/15/22 07/15/22 07/16/22 15:56 22:38 08:55 WBC 7.5 6.5 RBC 4.31 4.21 Hgb 11.7 L 11.5 L Hct 36.2 35.9 L MCV 84.1 85.2 MCH 27.1 27.3 MCHC 32.2 32.0 RDW 14.6 14.4 Plt Count 249 225 Neut % (Auto) 61.8 52.1 Lymph % (Auto) 28.0 35.8 [place] % (Auto) 7.7 9.0 Eos % (Auto) 1.8 L 2.8 Baso % (Auto) 0.7 0.3 Neut # (Auto) 4600 3400 Lymph # (Auto) 2100 2300 [place] # (Auto) 600 600 Eos # (Auto) 100 200 Baso # (Auto) 100 0 SARS-CoV-2 (PCR) Negative [facility] Medical History Acetaminophen overdose of undetermined intent (12/2015) Alcoholism 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 Asthma Cubital tunnel syndrome DM type 2 (diabetes mellitus, type 2) DVT (deep venous thrombosis) Essential hypertension Fibromyalgia (03/02/15) Hypoxia Intraoperative cardiac arrest during non-cardiac surgery (11/2013) 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) Morbid obesity Narcotic habituation, continuous Nocturnal hypoxemia Obstipation LYLA (obstructive sleep apnea) Ovarian cyst Plantar fasciitis Psychogenic nonepileptic seizure Pulmonary embolism RBBB (right bundle branch block) Sinus tachycardia Status post laminectomy (12/14/15) Suicide attempt Tobacco abuse Tylenol overdose Urinary retention Surgical History History of carpal tunnel repair (~10/30/14) History of colonoscopy History of esophagogastroduodenoscopy (EGD) History of laminectomy History of laminectomy (~09/2016) History of lumbar spinal fusion (12/22/18) Hx of toe surgery (05/16/20) S/P epidural steroid injection (11/2013) Status post dilation and curettage (2008) Family History Grandfather Diabetes mellitus Family/Other Pancreatic cancer Social History household members: spouse Smoking Status: Former smoker alcohol intake: current eating out: 1-3 times/week Type(s) of exercise: normal ROM and activity and sedentary lifestyle Assessment & Plan Assessment & Plan narrative: Pt is a 41yo woman with 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 1)? Bright red blood per rectum:? Hx of diverticulosis on prior colonoscopy, the same seen on CT today.? Does have recent hx of alcoholism and GERD, concerning for more acute upper GI bleed although H/H remains stable so active bleed less likely. Tachycardia is gradually improving. - d/c IVF, appears better hydrated this morning - Surgery consulted, appreciate care. Due to no evidence of active bleed, anticipate likely outpatient work-up. - IV Pantoprazole, will continue PPI at discharge 2)? Chest pain:? Did have recurrence last night, however sounds more musculoskeletal or pleuritic based on worse with inhalation.? Negative EKG, cardiac enzymes, CXR in the ED.? Does have risk factors for cardiac disease of DM Type 2, HTN, recent tobacco use, morbid obesity, and very limited mobility/activity level.? Pt does have persistent tachycardia, however D-dimer not significantly elevated, pt is fully anticoagulated at baseline, and no acute SOB/hypoxia making PE less likely. - Continue to monitor for recurrence - Echocardiogram today 3)? Hx of recurrent PE/DVT:? On chronic anticoagulation with Xarelto - Hold Xarelto for now due to acute GI bleed - If develops any significant hypoxia, SOB then will scan for PE 4)? Vertigo:? Chronic.? Seen by ENT and Neurology previously.? Thought to be due to autonomic dysfunction and diabetic neuropathy.? - PT consulted 5)? Hypertension, Pulmonary hypertension, Anasarca:? BP stable - Continue Lasix, Spirinolactone 6)? DM Type 2:? Baseline A1C 7.0, has increased recently - [facility] blood sugar checks - Continue home Metformin 7)? Depression and anxiety:? Mood has been more down recently. - Continue home Abilify, Doxepin 8)? Hypothyroidism: - Continue home Levothyroxine 9)? Fibromyalgia:? Stable - Continue home Pregabalin 10)? Yeast dermatitis: - Nystatin powder FEN:? On clear diet as per surgery DVT:? SCDs, holding anticoagulation due to bleeding Code:? Full Dispo:? Potential discharge today pending surgical final evaluation, and echocardiogram results. Likely tomorrow morning. Time Spent With Patient Critical Care time: I spent a total of [] minutes of critical care time on this patient's care today; this time is exclusive of procedural time.
--- NOTE | 2022-07-16 14:16 | OT.IP.EVAL ---
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) Morbid obesity Narcotic habituation, continuous Nocturnal hypoxemia Obstipation LYLA (obstructive sleep apnea) Ovarian cyst Plantar fasciitis Psychogenic nonepileptic seizure Pulmonary embolism RBBB (right bundle branch block) Sinus tachycardia Status post laminectomy (12/14/15) Suicide attempt Tobacco abuse Tylenol overdose Urinary retention Surgical History (Last Reviewed 05/06/22 @ 14:36 by JENNIFER Smith) History of carpal tunnel repair (~10/30/14) History of colonoscopy History of esophagogastroduodenoscopy (EGD) History of laminectomy History of laminectomy (~09/2016) History of lumbar spinal fusion (12/22/18) Hx of toe surgery (05/16/20) S/P epidural steroid injection (11/2013) Status post dilation and curettage (2008) Occupational Therapy Inpatient Evaluation/Re-Eval M1 PT/OT-IP Prior Functional Status Start: 07/16/22 14:19 Freq: NEEDED Status: Active Protocol: Document 07/16/22 13:50 DCW (Rec: 07/16/22 14:43 DCW [id number]) Medical Review Social History Household Members spouse Living Arrangements House Number of Floors (Floors) One Floor Number of Stairs To Enter/Railing? 2 platform steps, no railing, pt stabilizes using FWW and side of house as needed. 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
--- NOTE | 2022-07-16 15:40 | PM.CN ---
History of Present Illness Consult details Date Patient Seen: 07/16/22 Time Patient Seen: 14:30 Chief complaint: chest pain Reason for consult: bright red blood per rectum Requesting provider: Dank Eckert Narrative: chest pain, diarrhea and an episode of bright red blood w clots per rectum. On xeralto. no episodes since admission. Meds Home Medications and Allergies Home Medications Medication Instructions Recorded Confirmed Type acetaminophen 500 mg tablet 2,000 mg PO BID 09/23/18 07/02/22 History (Tylenol Extra Strength) lancets 33 gauge (Easy Touch Twist #100 ea 12/08/18 07/02/22 Rx Lancets) magnesium 250 mg tablet 500 mg PO DAILY 06/29/19 07/02/22 History fluticasone 100 mcg-salmeterol 50 1 puff inhalation BID 07/11/19 07/02/22 History mcg/dose blistr powdr for inhalation (Advair Diskus) Compressioin Stockings #1 ea 10/13/19 07/02/22 Rx Livongo Blood Glucose Test Strips #180 ea 08/10/20 07/02/22 Rx ferrous sulfate 325 mg (65 mg 325 mg PO DAILY Anemia 01/07/21 07/02/22 History iron) tablet omeprazole 20 mg capsule,delayed See Rx Instructions .Route 10/07/21 07/02/22 Rx release .COMPLEX #60 caps metformin 500 mg tablet 1,000 mg PO BID #120 tabs 10/24/21 07/02/22 Rx albuterol sulfate 90 mcg/actuation See Rx Instructions .Route 12/13/21 07/02/22 Rx aerosol inhaler .COMPLEX #18 grams doxepin 100 mg capsule 200 mg PO BEDTIME #60 caps 12/31/21 07/02/22 Rx rivaroxaban 20 mg tablet (Xarelto) See Rx Instructions .Route 01/13/22 07/02/22 Rx .COMPLEX #30 tabs ipratropium bromide 17 1 puff inhalation Q8H #12.9 grams 01/22/22 07/02/22 Rx mcg/actuation HFA aerosol inhaler levalbuterol tartrate 45 1 puff inhalation Q4-6H PRN 01/22/22 07/02/22 Rx mcg/actuation aerosol inhaler shortness of breath or wheezing #15 grams pregabalin 300 mg capsule 300 mg PO BID #180 caps 01/22/22 07/02/22 Rx levothyroxine 25 mcg tablet See Rx Instructions .Route 01/23/22 07/02/22 Rx .COMPLEX #30 tabs fluconazole 150 mg tablet 150 mg PO Q3D 2 doses #2 tabs 03/03/22 07/02/22 Rx terazosin 2 mg capsule See Rx Instructions .Route 04/23/22 07/02/22 Rx .COMPLEX #30 caps furosemide 40 mg tablet See Rx Instructions .Route 05/20/22 07/02/22 Rx .COMPLEX #135 tabs cyclobenzaprine 10 mg tablet See Rx Instructions .Route 06/11/22 07/02/22 Rx .COMPLEX #90 tabs norgestrel 0.3 mg-ethinyl 2 tab PO DAILY #52 tabs 06/24/22 07/02/22 Rx estradiol 30 mcg tablet aripiprazole 30 mg tablet 30 mg PO DAILY 30 days #30 tabs 06/27/22 07/02/22 Rx spironolactone 25 mg tablet See Rx Instructions .Route 06/27/22 07/02/22 Rx .COMPLEX #30 tabs meclizine 25 mg tablet See Rx Instructions .Route 07/14/22 Rx .COMPLEX #90 tabs Allergies Allergy/AdvReac Type Severity Reaction Status Date / Time carisoprodol [CARISOPRODOL] AdvReac Severe urinary Verified 05/07/22 14:44 retention fosphenytoin AdvReac Severe Seizures Verified 05/07/22 14:44 Latex, Natural Rubber AdvReac Mild Rash Verified 05/07/22 14:44 Review of Systems Review of Systems ROS: Yes All systems reviewed with the patient and are negative except as otherwise documented Exam Vital Signs (past 8 hours): - 07/16/22 08:02 07/16/22 08:00 07/16/22 14:34 Temperature 98.2 F 98.0 F Pulse Rate 111 H 114 H Respiratory Rate 16 16 Blood Pressure 139/87 121/74 Pulse Oximetry 96 96 96 Oxygen Delivery Method Room Air Oxygen Flow Rate 0 0 Oxygen Delivery Method Room Air Oxygen Flow Rate 0 Const General: cooperative, healthy appearing and comfortable Nutritional Appearance: overweight Orientation: alert, awake and oriented x3 HENMT Head: normocephalic and atraumatic Ears: hearing grossly normal bilaterally Nose: external nose normal Face and sinus: normal facial exam Mouth: oral mucosae normal Eyes Sclera: sclerae normal Neck Neck: trachea midline Resp Effort & Inspection: normal respiratory effort and able to speak in complete sentences Cardio Rate: regular rate Rhythm: regular rhythm GI Palpation: soft Skin General: elasticity normal Hair: normal Neuro Cognition: normal cognition Speech: speech normal Psych Mental Status: mental status grossly normal Speech and Movement: speech and movement normal Judgment: judgment good Objective Labs 07/16/22 08:55 07/15/22 09:00 Labs: Laboratory Results - last 24 hr 07/15/22 07/15/22 07/16/22 15:56 22:38 08:55 WBC 7.5 6.5 RBC 4.31 4.21 Hgb 11.7 L 11.5 L Hct 36.2 35.9 L MCV 84.1 85.2 MCH 27.1 27.3 MCHC 32.2 32.0 RDW 14.6 14.4 Plt Count 249 225 Neut % (Auto) 61.8 52.1 Lymph % (Auto) 28.0 35.8 [place] % (Auto) 7.7 9.0 Eos % (Auto) 1.8 L 2.8 Baso % (Auto) 0.7 0.3 Neut # (Auto) 4600 3400 Lymph # (Auto) 2100 2300 [place] # (Auto) 600 600 Eos # (Auto) 100 200 Baso # (Auto) 100 0 SARS-CoV-2 (PCR) Negative [facility] Medical History Acetaminophen overdose of undetermined intent (12/2015) Alcoholism 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 Asthma Cubital tunnel syndrome DM type 2 (diabetes mellitus, type 2) DVT (deep venous thrombosis) Essential hypertension Fibromyalgia (03/02/15) Hypoxia Intraoperative cardiac arrest during non-cardiac surgery (11/2013) 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) Morbid obesity Narcotic habituation, continuous Nocturnal hypoxemia Obstipation LYLA (obstructive sleep apnea) Ovarian cyst Plantar fasciitis Psychogenic nonepileptic seizure Pulmonary embolism RBBB (right bundle branch block) Sinus tachycardia Status post laminectomy (12/14/15) Suicide attempt Tobacco abuse Tylenol overdose Urinary retention Surgical History History of carpal tunnel repair (~10/30/14) History of colonoscopy History of esophagogastroduodenoscopy (EGD) History of laminectomy History of laminectomy (~09/2016) History of lumbar spinal fusion (12/22/18) Hx of toe surgery (05/16/20) S/P epidural steroid injection (11/2013) Status post dilation and curettage (2008) Family History Grandfather Diabetes mellitus Family/Other Pancreatic cancer Social History household members: spouse Tobacco & Substance Use Smoking Status: Former smoker alcohol intake: current Diet and Exercise eating out: 1-3 times/week Type(s) of exercise: normal ROM and activity and sedentary lifestyle Assessment & Plan Assessment & Plan narrative: Chest pain, ECHO pending, stable GI bleed on Xeralto w diarrhea, likely hemorrhoidal. last colonoscopy 2018. No ongoing bleeding. small drop in hemoglobin. Plan: restart diet. recommend outpt colonoscopy. Time Spent With Patient Time with patient: 30 to 49 minutes with 50% spent counseling/coordinating care Critical Care time: I spent a total of [] minutes of critical care time on this patient's care today; this time is exclusive of procedural time.
[2022-07-16] MEDS: FUROSEMIDE 40 MG TABLET 80 MG PO (17:23)
[2022-07-16] MEDS: TERAZOSIN 1 MG CAPSULE 2 MG PO (20:35)
[2022-07-16] MEDS: NORGESTREL ETHINYL ESTRADIOL 1 EACH PO (20:35)
[2022-07-16] MEDS: ACETAMINOPHEN 325 MG TABLET 650 MG PO (20:35)
[2022-07-16] MEDS: DOXEPIN 25 MG CAPSULE 200 MG PO (20:36)
[2022-07-17 01:48] VITALS: BP 141/80; PULSE 105; RESP 17; TEMP 36.6; O2SAT 99
[2022-07-17 05:38] VITALS: BP 150/79; PULSE 109; RESP 18; TEMP 36.8; O2SAT 94
[2022-07-17] MEDS: LEVOTHYROXINE 25 MCG TABLET PO (05:59)
[2022-07-17 07:21] VITALS: PULSE 110; RESP 18; O2SAT 97
[2022-07-17] MEDS: ALBUTEROL 2.5 MG/3 ML NEB (ADULT) INH (07:21)
[2022-07-17] MEDS: BUDESONIDE 0.5 MG/2 ML NEB INH (07:21)
[2022-07-17 07:30] VITALS: PULSE 112; RESP 18
[2022-07-17 07:55] VITALS: BP 127/79; PULSE 124; RESP 16; TEMP 36.6; O2SAT 93
--- NOTE | 2022-07-17 08:17 | P.DS_ITS ---
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 The pt reports she was in the [facility] ER on 07/09 due to severe dizziness. While there, she was noted to be tachycardic in the 160s. They ultimately used IV Metoprolol to slow her HR. She was discharged home. For approximately the last 3 days she has had intermittent substernal chest pain that can radiate to either side. It feels like a pressure/squeezing sensation. It is not triggered by exercise/movement. It usually lasts around 20 minutes and then self-resolves. The pain is not associated with palpitations or SOB. It does not radiate to her arm or jaw. She had associated nausea and vomiting only once, last night, when the pain was most severe. The pt does report having similar pains in the past, but they typically do not recur this often/long. The pt also reports this late morning having an episode of diarrhea that was accompanied by a large amount of bright red blood. There were some small clots as well. She has never had blood in her stool before. She has mild diffuse lower abdominal pain but nothing severe. She has been eating normally. She denies any diarrhea prior to this episode, and had a normal BM earlier in the day. She has been taking her medications as prescribed, and denies any other bleeding or over easy bruising. She denies any vomiting or hematemesis. She continues to feel dizzy, but states this has improved from last week, not worsened. Discharge Providers Provider Date of admission: 07/15/22 15:39 Discharge Date: 07/17/22 Primary care physician: Alejandra Lynch MD Consults: 07/15/22 18:12 Consult to Physical Therapy Evaluate & Treat Comment: Physician Instructions: Evaluate and Treat Discharge provider: Alejandra Lynch MD Summary Hospital Course Discharge Diagnosis: 1)? Bright red blood per rectum 2)? Chest pain 3)? Hx of recurrent PE/DVT 4)? Vertigo 5)? Hypertension, Pulmonary hypertension, Anasarca 6)? DM Type 2 7)? Depression and anxiety 8)? Hypothyroidism 9)? Fibromyalgia 10)? Yeast dermatitis Hospital Course: The pt presented with chest pain and bright red blood per rectum. Chest pain work-up including CXR, cardiac enzymes, EKG, and echo were all negative. Her pain was reproducible on exam, and thought to be more musculoskeletal in nature. The pts H/H remained stable while she was in the hospital. She had multiple BMs without any blood present. Her anticoagulation was held while she was in the hospital, however restarted at discharge due to her being at even higher risk of blood clot while on OCPs awaiting hysterectomy. Due to being stable, colonoscopy/endoscopy was deferred to outpatient. The pt was stable at discharge. Status at Discharge Cognitive/behavioral status at discharge: oriented Functional status at discharge: uses cane/walker Overall status at discharge: patient is back to baseline Exam Vital Signs (past 8 hours): - 07/17/22 01:48 07/17/22 05:38 07/17/22 07:21 Temperature 97.9 F 98.2 F Pulse Rate 105 H 109 H 110 H Respiratory Rate 17 18 18 Blood Pressure 141/80 H 150/79 H Pulse Oximetry 99 94 97 Oxygen Delivery Method Room Air Oxygen Flow Rate 0 0 07/17/22 07:30 Temperature Pulse Rate 112 H Respiratory Rate 18 Blood Pressure Pulse Oximetry Oxygen Delivery Method Room Air Oxygen Flow Rate Oxygen Delivery Method Room Air Oxygen Flow Rate 0 Narrative Exam Narrative: Gen:? NAD, sitting comfortably in bed CV:? RRR, no murmurs Resp:? clear to auscultation bilaterally Abd:? soft, nontender, nondistended, normoactive bowel sounds, obese Ext:? 2+ edema bilaterally, stable Objective Labs 07/16/22 08:55 07/15/22 09:00 Labs: Laboratory Results - last 24 hr 07/16/22 08:55 WBC 6.5 RBC 4.21 Hgb 11.5 L Hct 35.9 L MCV 85.2 MCH 27.3 MCHC 32.0 RDW 14.4 Plt Count 225 Neut % (Auto) 52.1 Lymph % (Auto) 35.8 [place] % (Auto) 9.0 Eos % (Auto) 2.8 Baso % (Auto) 0.3 Neut # (Auto) 3400 Lymph # (Auto) 2300 [place] # (Auto) 600 Eos # (Auto) 200 Baso # (Auto) 0 PFSH Medical History Acetaminophen overdose of undetermined intent (12/2015) Alcoholism 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 Asthma Cubital tunnel syndrome DM type 2 (diabetes mellitus, type 2) DVT (deep venous thrombosis) Essential hypertension Fibromyalgia (03/02/15) Hypoxia Intraoperative cardiac arrest during non-cardiac surgery (11/2013) 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) Morbid obesity Narcotic habituation, continuous Nocturnal hypoxemia Obstipation LYLA (obstructive sleep apnea) Ovarian cyst Plantar fasciitis Psychogenic nonepileptic seizure Pulmonary embolism RBBB (right bundle branch block) Sinus tachycardia Status post laminectomy (12/14/15) Suicide attempt Tobacco abuse Tylenol overdose Urinary retention Surgical History History of carpal tunnel repair (~10/30/14) History of colonoscopy History of esophagogastroduodenoscopy (EGD) History of laminectomy History of laminectomy (~09/2016) History of lumbar spinal fusion (12/22/18) Hx of toe surgery (05/16/20) S/P epidural steroid injection (11/2013) Status post dilation and curettage (2008) Family History Grandfather Diabetes mellitus Family/Other Pancreatic cancer Social History household members: spouse Smoking Status: Former smoker alcohol intake: current eating out: 1-3 times/week Type(s) of exercise: normal ROM and activity and sedentary lifestyle Discharge Plan Discharge Plan Patient Disposition: Home Discharge orders & Medications Prescriptions: New levothyroxine [Synthroid] 25 mcg Tablet 25 mcg PO DAILY@0600 Qty: 30 0RF magnesium oxide 400 mg (241.3 mg magnesium) Tablet 400 mg PO DAILY Qty: 30 0RF ferrous sulfate 325 mg (65 mg iron) Tablet 325 mg PO DAILY Qty: 30 0RF budesonide [Pulmicort] 0.5 mg/2 mL Suspension For Nebulization 0.5 mg INH RTBID Qty: 30 0RF Norgestrel-Ethinyl Estradiol 1 tab PO BID Qty: 30 0RF ondansetron 4 mg tablet,disintegrating 4 mg PO Q8H PRN (Reason: nausea and vomiting) Qty: 20 0RF Continued pregabalin 300 mg capsule 300 mg PO BID Qty: 180 3RF Rx Instructions: take 1 capsule by mouth twice a day (DME) lancets [Easy Touch Twist Lancets] 33 gauge misc See Dose Instructions .ROUTE .MEDSUPPLY Qty: 100 3RF Hold Instructions: Not checking her blood sugar regularly Dose Instruction: As directed Rx Instructions: test qd 90 min after meal doxepin 100 mg capsule 200 mg PO BEDTIME Qty: 60 5RF (DME) Compressioin Stockings Qty: 1 0RF Hold Instructions: patient is not using them Rx Instructions: As directed (DME) [place] Blood Glucose Test Strips See Rx Instructions .Route .MEDSUPPLY Qty: 180 3RF Hold Instructions: Not checking her BP regularly Rx Instructions: Use to test blood glucose twice daily, fasting a 2hrs post prandial omeprazole 20 mg capsule,delayed release(DR/EC) See Rx Instructions .ROUTE .COMPLEX Qty: 60 11RF Dose Instruction: TAKE 1 CAPSULE BY MOUTH TWICE DAILY. Rx Instructions: TAKE 1 CAPSULE BY MOUTH TWICE DAILY. metformin 500 mg tablet 1,000 mg PO BID Qty: 120 11RF albuterol sulfate 90 mcg/actuation HFA aerosol inhaler See Rx Instructions .ROUTE .COMPLEX Qty: 18 11RF Hold Instructions: Home Medication placed on hold at Doctor's office Dose Instruction: INHALE 2 PUFFS BY MOUTH EVERY 4 TO 6 HOURS NEEDED FOR SHORTNESS OF BREAT OR WHEEZING Rx Instructions: INHALE 2 PUFFS BY MOUTH EVERY 4 TO 6 HOURS NEEDED FOR SHORTNESS OF BREAT OR WHEEZING Xarelto 20 mg tablet See Rx Instructions .ROUTE .COMPLEX Qty: 30 5RF Dose Instruction: TAKE 1 TABLET BY MOUTH DAILY WITH EVENING MEAL Rx Instructions: TAKE 1 TABLET BY MOUTH DAILY WITH EVENING MEAL ipratropium bromide 17 mcg/actuation HFA aerosol inhaler 1 puff inhalation Q8H Qty: 12.9 2RF levalbuterol tartrate 45 mcg/actuation HFA aerosol inhaler 1 puff inhalation Q4-6H PRN (Reason: shortness of breath or wheezing) Qty: 15 2RF terazosin 2 mg capsule See Rx Instructions .ROUTE .COMPLEX Qty: 30 3RF Dose Instruction: TAKE 1 CAPSULE BY MOUTH AT BEDTIME Rx Instructions: TAKE 1 CAPSULE BY MOUTH AT BEDTIME furosemide 40 mg tablet See Rx Instructions .ROUTE .COMPLEX Qty: 135 5RF Dose Instruction: TAKE 2 AND 1/2 TABLETS BY MOUTH EVERY MORNING AND 2 TABLETS EVERY EVENING FOR A TOTAL OF 180 MG DAILY Rx Instructions: TAKE 2 AND 1/2 TABLETS BY MOUTH EVERY MORNING AND 2 TABLETS EVERY EVENING FOR A TOTAL OF 180 MG DAILY cyclobenzaprine 10 mg tablet See Rx Instructions .ROUTE .COMPLEX Qty: 90 1RF Dose Instruction: TAKE 1 TABLET BY MOUTH THREE TIMES DAILY NEEDED FOR MUSCLE SPASM Rx Instructions: TAKE 1 TABLET BY MOUTH THREE TIMES DAILY NEEDED FOR MUSCLE SPASM aripiprazole 30 mg tablet 30 mg PO DAILY 30 Days Qty: 30 5RF Rx Instructions: Take one 30mg tablet by mouth daily spironolactone 25 mg tablet See Rx Instructions .ROUTE .COMPLEX Qty: 30 0RF Dose Instruction: TAKE 1/2 TABLET BY MOUTH DAILY Rx Instructions: TAKE 1/2 TABLET BY MOUTH DAILY meclizine 25 mg tablet See Rx Instructions .ROUTE .COMPLEX Qty: 90 5RF Dose Instruction: TAKE 2 TABLETS BY MOUTH DAILY NEEDED FOR DIZZINESS OR VERTIGO Rx Instructions: TAKE up to 3 TABLETS BY MOUTH DAILY NEEDED FOR DIZZINESS OR VERTIGO acetaminophen [Tylenol Extra Strength] 500 mg tablet 2,000 mg PO BID ketoconazole 2 % shampoo 1 applic TOPICAL DAILY [place] (28) 0.3-30 mg-mcg tablet 1 tab PO QAM Label Comments: TAKE 2 ACTIVE TABLETS DAILY FOR 26 DAYS. ibuprofen 800 mg tablet 800 mg PO TID PRN (Reason: Pain (Scale Score 1-3)) triamcinolone acetonide 0.1 % cream 1 applic TOPICAL BID Rx Instructions: mix 50/50 with Ketoconazole cream and apply to under breast twice daily until resolve. Do not exceed over 2 weeks of use during flare up. clobetasol 0.05 % ointment 1 applic TOPICAL BID Label Comments: APPLY TOPICALLY TO THE AFFECTED AREA TWICE DAILY fluticasone propion-salmeterol [Wixela Inhub] 100-50 mcg/dose blister with device 1 ea INHALATION BID Label Comments: INHALE 1 PUFF BY MOUTH TWICE DAILY. RINSE MOUTH WITH WATER AFTER USE. DO NOT SWALLOW Rx Instructions: Rinse mouth with water after each use, do not swallow. ketoconazole 2 % cream 1 applic TOPICAL BID Rx Instructions: apply to affected areas under breast twice daily, do not exceed use over 2 weeks per flare up. diazepam 5 mg tablet 5 mg PO TID PRN (Reason: Vertigo) Label Comments: TAKE 1 TABLET BY MOUTH THREE TIMES DAILY NEEDED FOR VERTIGO Follow up/Referrals: Alejandra Lynch MD [Primary Care Provider] - Visit Report/Discharge Packet Stand Alone Forms: Patient Portal/API, Stroke Signs & Symptoms Discharge Data Primary Care Provider: Alejandra Lynch Discharges patient from system. Discharge Date/Time: 07/17/22 10:50
[2022-07-17] MEDS: FUROSEMIDE 40 MG TABLET 100 MG PO (08:41)
[2022-07-17] MEDS: METFORMIN HCL 500 MG TABLET 1000 MG PO (08:41)
[2022-07-17] MEDS: PREGABALIN 75 MG CAPSULE 300 MG PO (08:41)
[2022-07-17] MEDS: MAGNESIUM OXIDE 400 MG TABLET PO (08:41)
[2022-07-17] MEDS: ARIPiprazole 10 MG TABLET 30 MG PO (08:41)
[2022-07-17] MEDS: FERROUS SULFATE 325 MG TABLET PO (08:41)
[2022-07-17] MEDS: SPIRONOLACTONE 25 MG TABLET 12.5 MG PO (08:42)
[2022-07-17] MEDS: NORGESTREL ETHINYL ESTRADIOL 1 EACH PO (08:47)
[2022-07-17 09:16] LABS: Add Manual Diff / Slide Review NO; Basophils Absolute Auto 0 /uL (0-100); Basophils Percent Auto 0.3 % (0-2); Eosinophils Absolute Auto 100 /uL (0-450); Eosinophils Percent Auto 1.4 % (2-4); Hematocrit 38.2 % (36-46); Hemoglobin 12.3 g/dL (12.0-16.0); Lymphocytes Absolute Auto 1600 /uL (1100-4500); Lymphocytes Percent Auto 18.6 % (25-40); Mean Corpuscular HGB Conc 32.2 % (30-36); Mean Corpuscular Hemoglobin 27.2 PG (26-34); Mean Corpuscular Volume 84.6 fL (80-100); Monocytes Absolute Auto 500 /uL (0-900); Monocytes Percent Auto 6.3 % (3-14); Neutrophils Absolute Auto 6200 /uL (1500-7000); Neutrophils Percent Auto 73.4 % (50-75); Platelet Count 243 X10^3/uL (150-400); Red Blood Cell Count 4.51 X10^6/uL (4.0-5.2); Red Cell Distribution Width 14.4 % (11.6-14.8); White Blood Cell Count 8.4 X10^3/uL (4.5-11.0)
--- NOTE | 2022-07-17 11:43 | PC.NURSE ---
Pt discharged home at 1050, escorted off floor in wheelchair, accompanied by spouse and hospital staff. IV removed, tele d/c'd discharge teaching complete including follow up appointments and new medications. Pt's own medication retrieved from pharmacy and returned to patient. All belongings left the floor with patient.
== END 2022-07-17 10:50 | disposition home or self-care (01) | DRG 379 ==
LOC: ED 14:59 → AC 17:47
PROVIDERS: Admitting Provider Family Medicine; Emergency Provider Emergency Medicine; PCP Family Medicine; Referring Provider Emergency Medicine; Visit Provider Family Medicine
DX: K62.5 Hemorrhage of anus and rectum (principal); R07.9 Chest pain, unspecified; I10 Essential (primary) hypertension; E11.9 Type 2 diabetes mellitus without complications; F32.A Depression, unspecified; F41.9 Anxiety disorder, unspecified; E03.9 Hypothyroidism, unspecified; M79.7 Fibromyalgia; B37.2 Candidiasis of skin and nail; I27.20 Pulmonary hypertension, unspecified; R60.1 Generalized edema; R42 Dizziness and giddiness; F17.210 Nicotine dependence, cigarettes, uncomplicated; Z79.01 Long term (current) use of anticoagulants; Z86.711 Personal history of pulmonary embolism; Z79.84 Long term (current) use of oral hypoglycemic drugs; Z86.718 Personal history of other venous thrombosis and embolism
CPT/HCPCS: 36415; 71045; 74177; 80053; 82550; 82962; 83690; 83880; 84145; 84484; 85014; 85018; 85025; 85379; 85610; 86850; 86900; 86901; 87635; 93005; 93306; 94640; 94760; 94762; 96374; 96375; 97162; 99223; 99232; 99238; 99284; C9803; C9113; J2405; J7050; J7613; Q9967

== ENCOUNTER 2022-07-18 15:51 | Emergency (ER) | payer OTHER, MEDICARE, SELFPAY ==
[2022-07-15 19:45] VITALS: BMI 46.0
[2022-07-18] VITALS (7 sets, daily range): BP systolic 137–160; BP diastolic 74–100; PULSE 88–135; RESP 18–36; TEMP 36.4–36.8; O2SAT 96–98; BMI 46.0
[2022-07-18 17:18] LABS: Add Manual Diff / Slide Review NO; Basophils Absolute Auto 0 /uL (0-100); Basophils Percent Auto 0.4 % (0-2); Eosinophils Absolute Auto 200 /uL (0-450); Eosinophils Percent Auto 2.4 % (2-4); Hemoglobin 12.7 g/dL (12.0-16.0); Lymphocytes Absolute Auto 1600 /uL (1100-4500); Lymphocytes Percent Auto 21.6 % (25-40); Mean Corpuscular HGB Conc 32.6 % (30-36); Mean Corpuscular Hemoglobin 27.5 PG (26-34); Mean Corpuscular Volume 84.3 fL (80-100); Monocytes Absolute Auto 400 /uL (0-900); Neutrophils Absolute Auto 5200 /uL (1500-7000); Neutrophils Percent Auto 69.6 % (50-75); Platelet Count 231 X10^3/uL (150-400); Red Blood Cell Count 4.62 X10^6/uL (4.0-5.2); Red Cell Distribution Width 13.9 % (11.6-14.8); White Blood Cell Count 7.4 X10^3/uL (4.5-11.0)
--- NOTE | 2022-07-18 17:23 | ED_ITS ---
HPI - Abdominal Pain <Lorie Pradhan RUBBER MILL TENDER - Last Filed: 07/19/22 18:48> General Chief Complaint: Abdominal Pain Stated Complaint: GI bleed, Here recently Time Seen by Provider: 07/18/22 17:18 Source: patient Mode of arrival: Wheelchair History of Present Illness HPI narrative: This is a 41-year-old female presents to the emergency department status post discharge from the hospital yesterday for GI bleed on Xarelto for prior PE. History of prior pulmonary emboli 4-5 years ago and is anticoagulated on Xarelto , she also has history of anasarca, pulmonary hypertension, abnormal uterine bleeding which she states that she is having a planned hysterectomy due to menorrhagia related to her anticoagulant use. She states that she is been anticoagulated for 4-5 years, could not get dosing right on warfarin so they put her on Xarelto. She states that they are going to take her off since she was having inappropriate bleeding frequently. She has been on iron supplementation, denies recent antibiotics, was prescribed magnesium oxide, is on control pills and states that her last menses was approximately 3 weeks ago, she takes terazosin and spironolactone for CHF, denies increased swelling to her lower extremities, states that she feels bloated and distended in her abdomen. Anxiety presents with a chief complaint of a sharp and stabbing central chest pain that woke her from sleep.? Her refractory specialist is Dr. Cuba, echo from December 2021 patient had preserved LV and RV function well on her current echocardiogram. She has worn a Holter monitor in the past with average heart rate of 106 so tachycardia has been a long-time problem for her. She has had a short run of SVT in the past, she uses albuterol inhalers with Advair for persistent tobacco abuse. She denies any excessive alcohol consumption or substance abuse. She denies swelling in her lower extremities, denies fever and chills but states that the pain worsened so she came in today for lower abdominal pain and denies any blood in her urine, stool, or emesis. When patient was an inpatient she had an echocardiogram completed by Dr. Kumar for tachycardia on 07/16/2022 which showed an EF of 60-65% with no evidence of intra-atrial shunting, she does have trace mitral and tricuspid regurgitation without valvular disease. Related Data Home Medications Medication Instructions Recorded Confirmed acetaminophen 500 mg tablet 2,000 mg PO BID 09/23/18 07/16/22 (Tylenol Extra Strength) clobetasol 0.05 % topical ointment 1 applic topical BID 07/16/22 07/16/22 diazepam 5 mg tablet 5 mg PO TID PRN Vertigo 07/16/22 07/16/22 fluticasone 100 mcg-salmeterol 50 1 ea inhalation BID 07/16/22 07/16/22 mcg/dose blistr powdr for inhalation (Wixela Inhub) ibuprofen 800 mg tablet 800 mg PO TID PRN Pain (Scale 07/16/22 07/16/22 Score 1-3) ketoconazole 2 % shampoo 1 applic topical DAILY 07/16/22 07/16/22 ketoconazole 2 % topical cream 1 applic topical BID 07/16/22 07/16/22 norgestrel 0.3 mg-ethinyl 1 tab PO QAM 07/16/22 07/16/22 estradiol 30 mcg tablet (Blanca (28)) triamcinolone acetonide 0.1 % 1 applic topical BID 07/16/22 07/16/22 topical cream Previous Rx's Medication Instructions Recorded lancets 33 gauge (Easy Touch Twist #100 ea 12/08/18 Lancets) Compressioin Stockings #1 ea 10/13/19 [place] Blood Glucose Test Strips #180 ea 08/10/20 omeprazole 20 mg capsule,delayed See Rx Instructions .Route 10/07/21 release .COMPLEX #60 caps metformin 500 mg tablet 1,000 mg PO BID #120 tabs 10/24/21 albuterol sulfate 90 mcg/actuation See Rx Instructions .Route 12/13/21 aerosol inhaler .COMPLEX #18 grams doxepin 100 mg capsule 200 mg PO BEDTIME #60 caps 12/31/21 rivaroxaban 20 mg tablet (Xarelto) See Rx Instructions .Route 01/13/22 .COMPLEX #30 tabs ipratropium bromide 17 1 puff inhalation Q8H #12.9 grams 01/22/22 mcg/actuation HFA aerosol inhaler levalbuterol tartrate 45 1 puff inhalation Q4-6H PRN 01/22/22 mcg/actuation aerosol inhaler shortness of breath or wheezing #15 grams pregabalin 300 mg capsule 300 mg PO BID #180 caps 01/22/22 terazosin 2 mg capsule See Rx Instructions .Route 04/23/22 .COMPLEX #30 caps furosemide 40 mg tablet See Rx Instructions .Route 05/20/22 .COMPLEX #135 tabs cyclobenzaprine 10 mg tablet See Rx Instructions .Route 06/11/22 .COMPLEX #90 tabs aripiprazole 30 mg tablet 30 mg PO DAILY 30 days #30 tabs 06/27/22 spironolactone 25 mg tablet See Rx Instructions .Route 06/27/22 .COMPLEX #30 tabs meclizine 25 mg tablet See Rx Instructions .Route 07/14/22 .COMPLEX #90 tabs Norgestrel-Ethinyl Estradiol 1 tab PO BID #30 tabs 07/17/22 ondansetron 4 mg disintegrating 4 mg PO Q8H PRN nausea and 07/17/22 tablet vomiting #20 tabs budesonide 0.5 mg/2 mL suspension See Rx Instructions .Route 07/18/22 for nebulization .COMPLEX #180 mL cefdinir 300 mg capsule 300 mg PO BID 7 days #14 caps 07/18/22 dicyclomine 10 mg capsule 10 mg PO BID PRN abdominal pain 07/18/22 #14 caps ferrous sulfate 325 mg (65 mg See Rx Instructions .Route 07/18/22 iron) tablet .COMPLEX #90 tabs levothyroxine 25 mcg tablet See Rx Instructions .Route 07/18/22 .COMPLEX #90 tabs magnesium oxide 400 mg (241.3 mg 400 mg PO DAILY #30 tabs 07/18/22 magnesium) tablet metronidazole 500 mg tablet 500 mg PO BID 10 days #20 tabs 07/18/22 ondansetron 4 mg disintegrating 4 mg PO Q8H PRN nausea and 07/18/22 tablet vomiting #14 tabs polyethylene glycol 3350 17 17 g PO DAILY PRN for soft stool 07/18/22 gram/dose oral powder (Miralax) #238 grams Allergies Allergy/AdvReac Type Severity Reaction Status Date / Time carisoprodol [CARISOPRODOL] AdvReac Severe urinary Verified 07/18/22 16:45 retention fosphenytoin AdvReac Severe Seizures Verified 07/18/22 16:45 Latex, Natural Rubber AdvReac Mild Rash Verified 07/18/22 16:45 Review of Systems <JENNIFER Mcwilliams - Last Filed: 07/19/22 18:48> Review of Systems ROS Unobtainable: All systems reviewed & are unremarkable except as noted in HPI and below Patient History <JENNIFER Mcwilliams - Last Filed: 07/19/22 18:48> Medical History Acetaminophen overdose of undetermined intent (12/2015) Alcoholism 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 Asthma Cubital tunnel syndrome DM type 2 (diabetes mellitus, type 2) DVT (deep venous thrombosis) Essential hypertension Fibromyalgia (03/02/15) Hypoxia Intraoperative cardiac arrest during non-cardiac surgery (11/2013) 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) Morbid obesity Narcotic habituation, continuous Nocturnal hypoxemia Obstipation LYLA (obstructive sleep apnea) Ovarian cyst Plantar fasciitis Psychogenic nonepileptic seizure Pulmonary embolism RBBB (right bundle branch block) Sinus tachycardia Status post laminectomy (12/14/15) Suicide attempt Tobacco abuse Tylenol overdose Urinary retention Surgical History History of carpal tunnel repair (~10/30/14) History of colonoscopy History of esophagogastroduodenoscopy (EGD) History of laminectomy History of laminectomy (~09/2016) History of lumbar spinal fusion (12/22/18) Hx of toe surgery (05/16/20) S/P epidural steroid injection (11/2013) Status post dilation and curettage (2008) Family History Grandfather Diabetes mellitus Family/Other Pancreatic cancer Social History household members: spouse Smoking Status: Former smoker alcohol intake: current eating out: 1-3 times/week Type(s) of exercise: normal ROM and activity and sedentary lifestyle Smoking Status: Former smoker tobacco type: cigarettes alcohol intake frequency: a few times a week Substance Use Type: does not use Exam <JENNIFER Mcwilliams - Last Filed: 07/19/22 18:48> Narrative Exam Narrative: Reviewed vitals signs and nursing notes. General: cooperative, comfortable, in no acute distress, dirty in appearance, overweight, uncomfortable, without fever chills HEENT: symmetrical facial expressions, moist mucous membranes Cardiovascular: regular rate and rhythm, no peripheral edema, warm extremities Respiratory: normal effort, no increased work of breathing however mild tachypnea due to shallow breathing, breath sounds clear throughout without wheezes, crackles, stridor, retractions GI: Anasarca, mild generalized tenderness across the lower abdomen without focal tenderness, CVA tenderness bilaterally, masses, pitting edema or exquisite tenderness with exam. 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 odor and thick white abnormal vaginal discharge, wet prep obtained Skin: brisk capillary refill, without pallor or erythema Neuro: normal speech and cognition, A&O x3, ambulatory, clear speech Psych: mental status is grossly normal, congruent mood, normal affect, pleasant and cooperative Initial Vital Signs Initial Vital Signs: Vital Signs Temperature 98.3 F 07/18/22 16:36 Pulse Rate 131 H 07/18/22 16:36 Respiratory Rate 18 07/18/22 16:36 Blood Pressure 158/91 H 07/18/22 16:36 Pulse Oximetry 98 07/18/22 16:36 Oxygen Delivery Method 07/18/22 16:36 <Zana Arora DO - Last Filed: 07/18/22 22:55> Initial Vital Signs Initial Vital Signs: Vital Signs Temperature 98.3 F 07/18/22 16:36 Pulse Rate 131 H 07/18/22 16:36 Respiratory Rate 18 07/18/22 16:36 Blood Pressure 158/91 H 07/18/22 16:36 Pulse Oximetry 98 07/18/22 16:36 Oxygen Delivery Method 07/18/22 16:36 Course <JENNIFER Mcwilliams - Last Filed: 07/19/22 18:48> Orders Ordered: Discontinued Medications Acetaminophen (Acetaminophen 325 Mg Tablet) 975 mg PO NOW ONE Stop: 07/18/22 18:50 Last Admin: 07/18/22 19:03 Dose: 975 mg Documented By: MENA Hydrocodone Bitart/Acetaminophen (Hydrocodone/Acet 5/325 Tablet) 1 tab PO NOW ONE Stop: 07/18/22 20:05 Last Admin: 07/18/22 20:16 Dose: 1 tab Documented By: JASPER Hydromorphone HCl (Hydromorphone 0.5 Mg Inj) 0.5 mg IV NOW ONE Stop: 07/18/22 18:50 Last Admin: 07/18/22 19:03 Dose: 0.5 mg Documented By: MENA Sodium Chloride (Normal Saline 0.9%) 1,000 mls @ 1,000 mls/hr IV BOLUS ONE Stop: 07/18/22 18:41 Last Infusion: 07/18/22 19:23 Dose: 0 mls/hr Documented By: Admin: 07/18/22 18:20 Dose: 1,000 mls/hr Documented By: MENA Lactated Ringer's (Lactated Ringers) 1,000 mls @ 1,000 mls/hr IV BOLUS ONE Stop: 07/18/22 20:01 Last Infusion: 07/18/22 20:30 Dose: 0 mls/hr Documented By: Admin: 07/18/22 19:21 Dose: 1,000 mls/hr Documented By: JASPER Ceftriaxone Sodium 2,000 mg/ (Sodium Chloride) 100 mls @ 200 mls/hr IV NOW ONE Stop: 07/18/22 19:34 Last Infusion: 07/18/22 20:23 Dose: 0 mls/hr Documented By: Admin: 07/18/22 19:52 Dose: 200 mls/hr Documented By: JASPER Metronidazole (Metronidazole 500 Mg Tablet) 500 mg PO NOW ONE Stop: 07/18/22 19:46 Last Admin: 07/18/22 20:00 Dose: 500 mg Documented By: JASPER Ondansetron HCl (Ondansetron 4 Mg/2 Ml Inj) 4 mg IV NOW PRN PRN Reason: Nausea And Vomiting Last Admin: 07/18/22 18:20 Dose: 4 mg Documented By: MENA Vital Signs Vital signs: Vital Signs - 8 hr 07/18/22 16:36 07/18/22 17:21 07/18/22 17:21 Temperature 98.3 F Pulse Rate 131 H 127 H Respiratory Rate 18 36 H Blood Pressure 158/91 H 137/100 H Pulse Oximetry 98 97 Oxygen Delivery Method Room Air 07/18/22 17:30 07/18/22 17:30 07/18/22 18:07 Temperature Pulse Rate 135 H 121 H Respiratory Rate 28 H Blood Pressure 160/97 H Pulse Oximetry 97 97 Oxygen Delivery Method 07/18/22 18:18 07/18/22 18:18 07/18/22 18:30 Temperature Pulse Rate 133 H Respiratory Rate 20 Blood Pressure 148/89 H 152/91 H Pulse Oximetry 96 Oxygen Delivery Method 07/18/22 18:30 07/18/22 22:14 Temperature 97.6 F Pulse Rate 118 H 88 Respiratory Rate 25 H 18 Blood Pressure 156/74 H Pulse Oximetry 96 97 Oxygen Delivery Method Room Air Room Air <Zana Arora DO - Last Filed: 07/18/22 22:55> Orders Ordered: Discontinued Medications Acetaminophen (Acetaminophen 325 Mg Tablet) 975 mg PO NOW ONE Stop: 07/18/22 18:50 Last Admin: 07/18/22 19:03 Dose: 975 mg Documented By: MENA Hydrocodone Bitart/Acetaminophen (Hydrocodone/Acet 5/325 Tablet) 1 tab PO NOW ONE Stop: 07/18/22 20:05 Last Admin: 07/18/22 20:16 Dose: 1 tab Documented By: JASPER Hydromorphone HCl (Hydromorphone 0.5 Mg Inj) 0.5 mg IV NOW ONE Stop: 07/18/22 18:50 Last Admin: 07/18/22 19:03 Dose: 0.5 mg Documented By: MENA Sodium Chloride (Normal Saline 0.9%) 1,000 mls @ 1,000 mls/hr IV BOLUS ONE Stop: 07/18/22 18:41 Last Infusion: 07/18/22 19:23 Dose: 0 mls/hr Documented By: Admin: 07/18/22 18:20 Dose: 1,000 mls/hr Documented By: MENA Lactated Ringer's (Lactated Ringers) 1,000 mls @ 1,000 mls/hr IV BOLUS ONE Stop: 07/18/22 20:01 Last Infusion: 07/18/22 20:30 Dose: 0 mls/hr Documented By: Admin: 07/18/22 19:21 Dose: 1,000 mls/hr Documented By: JASPER Ceftriaxone Sodium 2,000 mg/ (Sodium Chloride) 100 mls @ 200 mls/hr IV NOW ONE Stop: 07/18/22 19:34 Last Infusion: 07/18/22 20:23 Dose: 0 mls/hr Documented By: Admin: 07/18/22 19:52 Dose: 200 mls/hr Documented By: GC Metronidazole (Metronidazole 500 Mg Tablet) 500 mg PO NOW ONE Stop: 07/18/22 19:46 Last Admin: 07/18/22 20:00 Dose: 500 mg Documented By: GC Ondansetron HCl (Ondansetron 4 Mg/2 Ml Inj) 4 mg IV NOW PRN PRN Reason: Nausea And Vomiting Last Admin: 07/18/22 18:20 Dose: 4 mg Documented By: MENA Vital Signs Vital signs: Vital Signs - 8 hr 07/18/22 16:36 07/18/22 17:21 07/18/22 17:21 Temperature 98.3 F Pulse Rate 131 H 127 H Respiratory Rate 18 36 H Blood Pressure 158/91 H 137/100 H Pulse Oximetry 98 97 Oxygen Delivery Method Room Air 07/18/22 17:30 07/18/22 17:30 07/18/22 18:07 Temperature Pulse Rate 135 H 121 H Respiratory Rate 28 H Blood Pressure 160/97 H Pulse Oximetry 97 97 Oxygen Delivery Method 07/18/22 18:18 07/18/22 18:18 07/18/22 18:30 Temperature Pulse Rate 133 H Respiratory Rate 20 Blood Pressure 148/89 H 152/91 H Pulse Oximetry 96 Oxygen Delivery Method 07/18/22 18:30 07/18/22 22:14 Temperature 97.6 F Pulse Rate 118 H 88 Respiratory Rate 25 H 18 Blood Pressure 156/74 H Pulse Oximetry 96 97 Oxygen Delivery Method Room Air Room Air MDM - Abdominal Pain <JENNIFER Mcwilliams - Last Filed: 07/19/22 18:48> Lab Data 07/18/22 17:00 07/18/22 17:00 Labs: Lab Results 07/18/22 07/18/22 07/18/22 Range/Units 17:00 17:00 17:00 WBC 7.4 (4.5-11.0) X10^3/uL RBC 4.62 (4.0-5.2) X10^6/uL Hgb 12.7 (12.0-16.0) g/dL Hct 39.0 (36-46) % MCV 84.3 (80-100) fL MCH 27.5 (26-34) PG MCHC 32.6 (30-36) % RDW 13.9 (11.6-14.8) % Plt Count 231 (150-400) X10^3/uL Neut % (Auto) 69.6 (50-75) % Lymph % (Auto) 21.6 L (25-40) % [place] % (Auto) 6.0 (3-14) % Eos % (Auto) 2.4 (2-4) % Baso % (Auto) 0.4 (0-2) % Neut # (Auto) 5200 (2462-0177) /uL Lymph # (Auto) 1600 (5292-0575) /uL [place] # (Auto) 400 (0-900) /uL Eos # (Auto) 200 (0-450) /uL Baso # (Auto) 0 (0-100) /uL Sodium 137 (137-145) mmol/L Potassium 3.6 (3.4-5.1) mmol/L Chloride 96 L (98-107) mmol/L Carbon Dioxide 29 (22-32) mmol/L BUN 11 (7-17) mg/dL Creatinine 0.48 L (0.52-1.04) mg/dL Estimated GFR > 60 (>60) mL/min BUN/Creatinine Ratio 22.9 H (6-22) Glucose 240 H (70-100) mg/dL Lactate 4.5 H* (0.7-2.1) mmol/L Calcium 9.2 (8.4-10.2) mg/dL Magnesium (1.6-2.3) mg/dL Total Bilirubin 0.3 (0.2-1.3) mg/dL AST 59 H (14-36) IU/L ALT 39 H (<35) IU/L Alkaline Phosphatase 56 (38-126) U/L Total Creatine Kinase (30-135) U/L CK-MB (CK-2) CK-MB (CK-2) Rel Index Troponin I (0.01-0.034) ng/mL C-Reactive Protein (<1.0) mg/dL NT-Pro-B Natriuret Pep (<125) pg/mL Total Protein 7.9 (6.3-8.2) g/dL Albumin 4.3 (3.5-5.0) g/dL Globulin 3.6 (1.7-4.1) g/dL Albumin/Globulin Ratio 1.2 (1.0-2.8) Lipase 65 (23-300) U/L Procalcitonin (<0.5) ng/mL TSH (0.47-4.68) uIU/mL Urine RBC (0-5/HPF) Urine WBC (0-5/HPF) Ur Squamous Epith Cells (0-5/HPF) Urine Bacteria (None) Ur Culture Indicated? SARS-CoV-2 (PCR) (Negative) Influenza A (RT-PCR) (NEGATIVE) Influenza B (RT-PCR) (NEGATIVE) RSV (PCR) (Negative) 07/18/22 07/18/22 07/18/22 Range/Units 17:00 17:00 17:00 WBC (4.5-11.0) X10^3/uL RBC (4.0-5.2) X10^6/uL Hgb (12.0-16.0) g/dL Hct (36-46) % MCV (80-100) fL MCH (26-34) PG MCHC (30-36) % RDW (11.6-14.8) % Plt Count (150-400) X10^3/uL Neut % (Auto) (50-75) % Lymph % (Auto) (25-40) % [place] % (Auto) (3-14) % Eos % (Auto) (2-4) % Baso % (Auto) (0-2) % Neut # (Auto) (7824-4580) /uL Lymph # (Auto) (7879-4413) /uL [place] # (Auto) (0-900) /uL Eos # (Auto) (0-450) /uL Baso # (Auto) (0-100) /uL Sodium (137-145) mmol/L Potassium (3.4-5.1) mmol/L Chloride (98-107) mmol/L Carbon Dioxide (22-32) mmol/L BUN (7-17) mg/dL Creatinine (0.52-1.04) mg/dL Estimated GFR (>60) mL/min BUN/Creatinine Ratio (6-22) Glucose (70-100) mg/dL Lactate (0.7-2.1) mmol/L Calcium (8.4-10.2) mg/dL Magnesium 1.8 (1.6-2.3) mg/dL Total Bilirubin (0.2-1.3) mg/dL AST (14-36) IU/L ALT (<35) IU/L Alkaline Phosphatase (38-126) U/L Total Creatine Kinase 79 (30-135) U/L CK-MB (CK-2) TNP CK-MB (CK-2) Rel Index TNP Troponin I < 0.012 (0.01-0.034) ng/mL C-Reactive Protein 2.9 H (<1.0) mg/dL NT-Pro-B Natriuret Pep 41 (<125) pg/mL Total Protein (6.3-8.2) g/dL Albumin (3.5-5.0) g/dL Globulin (1.7-4.1) g/dL Albumin/Globulin Ratio (1.0-2.8) Lipase (23-300) U/L Procalcitonin 0.06 (<0.5) ng/mL TSH (0.47-4.68) uIU/mL Urine RBC (0-5/HPF) Urine WBC (0-5/HPF) Ur Squamous Epith Cells (0-5/HPF) Urine Bacteria (None) Ur Culture Indicated? SARS-CoV-2 (PCR) (Negative) Influenza A (RT-PCR) (NEGATIVE) Influenza B (RT-PCR) (NEGATIVE) RSV (PCR) (Negative) 07/18/22 07/18/22 07/18/22 Range/Units 17:00 18:21 18:26 WBC (4.5-11.0) X10^3/uL RBC (4.0-5.2) X10^6/uL Hgb (12.0-16.0) g/dL Hct (36-46) % MCV (80-100) fL MCH (26-34) PG MCHC (30-36) % RDW (11.6-14.8) % Plt Count (150-400) X10^3/uL Neut % (Auto) (50-75) % Lymph % (Auto) (25-40) % [place] % (Auto) (3-14) % Eos % (Auto) (2-4) % Baso % (Auto) (0-2) % Neut # (Auto) (1107-6300) /uL Lymph # (Auto) (1843-5186) /uL [place] # (Auto) (0-900) /uL Eos # (Auto) (0-450) /uL Baso # (Auto) (0-100) /uL Sodium (137-145) mmol/L Potassium (3.4-5.1) mmol/L Chloride (98-107) mmol/L Carbon Dioxide (22-32) mmol/L BUN (7-17) mg/dL Creatinine (0.52-1.04) mg/dL Estimated GFR (>60) mL/min BUN/Creatinine Ratio (6-22) Glucose (70-100) mg/dL Lactate (0.7-2.1) mmol/L Calcium (8.4-10.2) mg/dL Magnesium (1.6-2.3) mg/dL Total Bilirubin (0.2-1.3) mg/dL AST (14-36) IU/L ALT (<35) IU/L Alkaline Phosphatase (38-126) U/L Total Creatine Kinase (30-135) U/L CK-MB (CK-2) CK-MB (CK-2) Rel Index Troponin I (0.01-0.034) ng/mL C-Reactive Protein (<1.0) mg/dL NT-Pro-B Natriuret Pep (<125) pg/mL Total Protein (6.3-8.2) g/dL Albumin (3.5-5.0) g/dL Globulin (1.7-4.1) g/dL Albumin/Globulin Ratio (1.0-2.8) Lipase (23-300) U/L Procalcitonin (<0.5) ng/mL TSH 4.15 (0.47-4.68) uIU/mL Urine RBC 0-1/hpf (0-5/HPF) Urine WBC 0-1/hpf (0-5/HPF) Ur Squamous Epith Cells 10-30 /hpf H D (0-5/HPF) Urine Bacteria Moderate (10-30) H (None) Ur Culture Indicated? Cult not indicated SARS-CoV-2 (PCR) Negative (Negative) Influenza A (RT-PCR) Flu a negative (NEGATIVE) Influenza B (RT-PCR) Flu b negative (NEGATIVE) RSV (PCR) Negative (Negative) 07/18/22 07/18/22 07/18/22 Range/Units 18:45 18:45 20:35 WBC (4.5-11.0) X10^3/uL RBC (4.0-5.2) X10^6/uL Hgb (12.0-16.0) g/dL Hct (36-46) % MCV (80-100) fL MCH (26-34) PG MCHC (30-36) % RDW (11.6-14.8) % Plt Count (150-400) X10^3/uL Neut % (Auto) (50-75) % Lymph % (Auto) (25-40) % [place] % (Auto) (3-14) % Eos % (Auto) (2-4) % Baso % (Auto) (0-2) % Neut # (Auto) (7610-7193) /uL Lymph # (Auto) (0632-9938) /uL [place] # (Auto) (0-900) /uL Eos # (Auto) (0-450) /uL Baso # (Auto) (0-100) /uL Sodium (137-145) mmol/L Potassium (3.4-5.1) mmol/L Chloride (98-107) mmol/L Carbon Dioxide (22-32) mmol/L BUN (7-17) mg/dL Creatinine (0.52-1.04) mg/dL Estimated GFR (>60) mL/min BUN/Creatinine Ratio (6-22) Glucose (70-100) mg/dL Lactate Cancelled 3.2 H 2.8 H (0.7-2.1) mmol/L Calcium (8.4-10.2) mg/dL Magnesium (1.6-2.3) mg/dL Total Bilirubin (0.2-1.3) mg/dL AST (14-36) IU/L ALT (<35) IU/L Alkaline Phosphatase (38-126) U/L Total Creatine Kinase (30-135) U/L CK-MB (CK-2) CK-MB (CK-2) Rel Index Troponin I (0.01-0.034) ng/mL C-Reactive Protein (<1.0) mg/dL NT-Pro-B Natriuret Pep (<125) pg/mL Total Protein (6.3-8.2) g/dL Albumin (3.5-5.0) g/dL Globulin (1.7-4.1) g/dL Albumin/Globulin Ratio (1.0-2.8) Lipase (23-300) U/L Procalcitonin (<0.5) ng/mL TSH (0.47-4.68) uIU/mL Urine RBC (0-5/HPF) Urine WBC (0-5/HPF) Ur Squamous Epith Cells (0-5/HPF) Urine Bacteria (None) Ur Culture Indicated? SARS-CoV-2 (PCR) (Negative) Influenza A (RT-PCR) (NEGATIVE) Influenza B (RT-PCR) (NEGATIVE) RSV (PCR) (Negative) [facility] CLIA ID [id number] [address] [place] [address] RUN DATE: 07/18/22 Specimen Inquiry PAGE 1 RUN TIME: 1932 Name: Nuvia Alvarado Age/Sex: 41/F Attend Dr: Lorie Pradhan Unit#: [id number] : 1980Location: ED Re07/18/22 Disch: Status: REG ER SPEC #: [id number] RUSSELL: 07/18/22 STATUS: COMP REQ #: [id number] SPDESC: RECD: 07/18/[address]: Lorie Pradhan SOURCE: Vaginal ENTR: 07/18/[address]: Alejandra Lynch MD FAX TO: ORDERED: Wet Prep Procedure Result Verified Site Wet Prep [facility] Final 07/18/221923 White blood cells Few WBCs Clue cells: Few Yeast: None seen Trichomonas: None seen Point of care testing: Point of Care Testing Test Results Negative Urine Dip Bedside Urine Glucose 1000 mg/dl Bedside Urine Bilirubin - Negative Bedside Urine Ketone - Negative Urine Specific [place] 1.010 Bedside Urine Occult Blood - Negative Bedside Urine pH 6.0 Bedside Urine Protein - Negative Bedside Urine Urobilinogen - Negative Bedside Urine Nitrite - Negative Bedside Urine Leukocytes - Negative Esterase Imaging Data CT scan - abdomen/pelvis: Radiologist's Impression: PROCEDURE:? CT ABDOMEN PELVIS W CON ? INDICATIONS:? History of diverticulosis, worsening anasarca, abdominal distension ? TECHNIQUE:? After the administration of IV contrast, axial sections were acquired from the lung bases to the pubic symphysis.? Coronal and sagittal reformats were performed.? For radiation dose reduction, the following was used:? automated exposure control, adjustment of mA and/or kV according to patient size. ? COMPARISON:? [facility], CR, XR CHEST 1V, 07/18/2022, 17:47.? [facility], CT, CT ABDOMEN PELVIS W CON, 07/15/2022, 10:45. ? FINDINGS:? Image quality:? Excellent.? ? Lung bases:? Unremarkable.? ? Heart:? No significant findings. ?? ABDOMEN: Liver:? An enlarged, mildly fatty infiltrated liver can be seen.? No focally suspicious liver lesion is seen. Gallbladder:? Unremarkable.? ? Biliary ducts:? Unremarkable.? ? Pancreas:? Unremarkable.? ? Spleen:? Unremarkable.? ? Adrenal Glands:? Unremarkable.? ? Kidneys and Ureters:? Unremarkable.? ? ? Stomach and Bowel:? Stomach, small bowel loops, and colon are unremarkable.? A normal appendix is seen. Mild distal colonic diverticulosis is seen, without findings of active diverticulitis. Peritoneum:? No abnormal intraperitoneal fluid.? No free air.? ? Ventral Wall: ? No hernia.? Abdominal Nodes:? No retroperitoneal or mesenteric adenopathy by size criteria.? Vessels:? Aorta and inferior vena cava are normal in size.? ? PELVIS: Pelvic Organs: The uterus appears normal for age.? No adnexal masses are seen.? Bladder:? Unremarkable.? ? Pelvic Nodes: No enlarged lymph nodes.? Miscellaneous: No inguinal hernias are seen. ? ? ? Bones:? L4-5 postoperative hardware is seen. ? ? IMPRESSION:? ? Colonic diverticulosis is seen, without findings of active diverticulitis. ? No dilated loops of bowel are seen. ?? Additional findings:? Enlarged, fatty liver Normal appendix L4-L5 postoperative hardware ? Dictated by: Rickie Lundberg M.D. on 07/18/2022 at 17:33 ? ? Approved by: Rickie Lundberg M.D. on 07/18/2022 at 17:35 ? Chest x-ray: Radiologist's Impression: PROCEDURE:? XR CHEST 1V ? INDICATIONS:? pleural effusions? hx chf, anasarca, tachycardia ? TECHNIQUE:? One view of the chest was acquired.? ? COMPARISON:? [facility], CR, XR CHEST 1V, 07/15/2022, 9:31.? [facility], CR, XR CHEST 1V, 03/01/2022, 18:53.? [facility], CT, CT ANGIO CHEST PE PROTOCOL, 03/01/2022, 21:05.? [facility], CT, CT ABDOMEN PELVIS W CON, 07/18/2022, 17:48. ? FINDINGS:? This study is limited by body habitus.? ? Surgical changes and devices:? None.? ? Lungs and pleura:? Lungs are clear.? No pleural effusions or pneumothorax.? ? Mediastinum:? Mediastinal contours appear normal.? Heart size is normal.? ? Bones and chest wall:? No suspicious bony lesions.? Overlying soft tissues appear unremarkable.? IMPRESSION:? Clear lungs, without effusions. ? ? Dictated by: Rickie Lundberg M.D. on 07/18/2022 at 17:32 ? ? Approved by: Rickie Lundberg M.D. on 07/18/2022 at 17:33 ? ECG Data Interpretation: EKG independently reviewed by myself at [1900] reveals sinus tachycardia at 124 bpm with regular axis and intervals. No STEMI, ST segment changes, arrhythmia, or acute ischemic changes. MDM Narrative Medical decision making narrative: Chief Complaint: Worsening pelvic/lower abdominal pain Independent historian: Patient Differential diagnoses include but are not limited to: biliary disease, gastroenteritis, esophagitis, gastritis, peptic ulcer, bowel obstruction,perforated viscus, appendicitis, colitis, diverticulitis, IBD/IBS, intestinal ischemia, pyelonephritis, obstructive uropathy, AAA, hernia, colon cancer, herniated disk, urinary retention, ectopic , fibroids, ovarian mass/cyst, torsion, vaginitis/PID. Doubt atypical ACS. No peritoneal signs on abdominal exam. Patient remains p.o. tolerant. Serial abdominal exam without increase in abdominal pain. Extensive conversation about ER return precautions and need for close follow-up. I have independently reviewed the patient's vital signs and nursing notes as well as prior records if available. Pertinent lab findings reviewed: Patient's wet prep was positive for wbc's and clue cells Pertinent Imaging reviewed: CT abdomen and pelvis is negative for acute abnormality, diverticulosis is seen without evidence of perforation or diverticulitis, no dilated bowel loops, incidentally patient has an enlarged fatty liver, normal appendix, and normal L4-5 postoperative hardware. No evidence of intra peritoneal fluid or free air Patient has received 1 L of fluid states that she started feel better, pain control was ordered and she was given Dilaudid and Tylenol. Recheck her lactate which came back at 3.5 down from 4.7, ordered 2 L of normal saline, she is p.o. tolerant and sipping on water. Social considerations that may affect disposition: none Questions are addressed and there is agreement with the plan and for follow-up. Patient is appropriate for outpatient management. MIPS: This encounter doesn't have any diagnosis' associated with MIPS criteria. <Zana Arora DO - Last Filed: 07/18/22 22:55> Lab Data Labs: Lab Results 07/18/22 07/18/22 07/18/22 Range/Units 17:00 17:00 17:00 WBC 7.4 (4.5-11.0) X10^3/uL RBC 4.62 (4.0-5.2) X10^6/uL Hgb 12.7 (12.0-16.0) g/dL Hct 39.0 (36-46) % MCV 84.3 (80-100) fL MCH 27.5 (26-34) PG MCHC 32.6 (30-36) % RDW 13.9 (11.6-14.8) % Plt Count 231 (150-400) X10^3/uL Neut % (Auto) 69.6 (50-75) % Lymph % (Auto) 21.6 L (25-40) % [place] % (Auto) 6.0 (3-14) % Eos % (Auto) 2.4 (2-4) % Baso % (Auto) 0.4 (0-2) % Neut # (Auto) 5200 (1213-8933) /uL Lymph # (Auto) 1600 (7029-6901) /uL [place] # (Auto) 400 (0-900) /uL Eos # (Auto) 200 (0-450) /uL Baso # (Auto) 0 (0-100) /uL Sodium 137 (137-145) mmol/L Potassium 3.6 (3.4-5.1) mmol/L Chloride 96 L (98-107) mmol/L Carbon Dioxide 29 (22-32) mmol/L BUN 11 (7-17) mg/dL Creatinine 0.48 L (0.52-1.04) mg/dL Estimated GFR > 60 (>60) mL/min BUN/Creatinine Ratio 22.9 H (6-22) Glucose 240 H (70-100) mg/dL Lactate 4.5 H* (0.7-2.1) mmol/L Calcium 9.2 (8.4-10.2) mg/dL Magnesium (1.6-2.3) mg/dL Total Bilirubin 0.3 (0.2-1.3) mg/dL AST 59 H (14-36) IU/L ALT 39 H (<35) IU/L Alkaline Phosphatase 56 (38-126) U/L Total Creatine Kinase (30-135) U/L CK-MB (CK-2) CK-MB (CK-2) Rel Index Troponin I (0.01-0.034) ng/mL C-Reactive Protein (<1.0) mg/dL NT-Pro-B Natriuret Pep (<125) pg/mL Total Protein 7.9 (6.3-8.2) g/dL Albumin 4.3 (3.5-5.0) g/dL Globulin 3.6 (1.7-4.1) g/dL Albumin/Globulin Ratio 1.2 (1.0-2.8) Lipase 65 (23-300) U/L Procalcitonin (<0.5) ng/mL TSH (0.47-4.68) uIU/mL Urine RBC (0-5/HPF) Urine WBC (0-5/HPF) Ur Squamous Epith Cells (0-5/HPF) Urine Bacteria (None) Ur Culture Indicated? SARS-CoV-2 (PCR) (Negative) Influenza A (RT-PCR) (NEGATIVE) Influenza B (RT-PCR) (NEGATIVE) RSV (PCR) (Negative) 07/18/22 07/18/22 07/18/22 Range/Units 17:00 17:00 17:00 WBC (4.5-11.0) X10^3/uL RBC (4.0-5.2) X10^6/uL Hgb (12.0-16.0) g/dL Hct (36-46) % MCV (80-100) fL MCH (26-34) PG MCHC (30-36) % RDW (11.6-14.8) % Plt Count (150-400) X10^3/uL Neut % (Auto) (50-75) % Lymph % (Auto) (25-40) % [place] % (Auto) (3-14) % Eos % (Auto) (2-4) % Baso % (Auto) (0-2) % Neut # (Auto) (3104-4463) /uL Lymph # (Auto) (5584-6828) /uL [place] # (Auto) (0-900) /uL Eos # (Auto) (0-450) /uL Baso # (Auto) (0-100) /uL Sodium (137-145) mmol/L Potassium (3.4-5.1) mmol/L Chloride (98-107) mmol/L Carbon Dioxide (22-32) mmol/L BUN (7-17) mg/dL Creatinine (0.52-1.04) mg/dL Estimated GFR (>60) mL/min BUN/Creatinine Ratio (6-22) Glucose (70-100) mg/dL Lactate (0.7-2.1) mmol/L Calcium (8.4-10.2) mg/dL Magnesium 1.8 (1.6-2.3) mg/dL Total Bilirubin (0.2-1.3) mg/dL AST (14-36) IU/L ALT (<35) IU/L Alkaline Phosphatase (38-126) U/L Total Creatine Kinase 79 (30-135) U/L CK-MB (CK-2) TNP CK-MB (CK-2) Rel Index TNP Troponin I < 0.012 (0.01-0.034) ng/mL C-Reactive Protein 2.9 H (<1.0) mg/dL NT-Pro-B Natriuret Pep 41 (<125) pg/mL Total Protein (6.3-8.2) g/dL Albumin (3.5-5.0) g/dL Globulin (1.7-4.1) g/dL Albumin/Globulin Ratio (1.0-2.8) Lipase (23-300) U/L Procalcitonin 0.06 (<0.5) ng/mL TSH (0.47-4.68) uIU/mL Urine RBC (0-5/HPF) Urine WBC (0-5/HPF) Ur Squamous Epith Cells (0-5/HPF) Urine Bacteria (None) Ur Culture Indicated? SARS-CoV-2 (PCR) (Negative) Influenza A (RT-PCR) (NEGATIVE) Influenza B (RT-PCR) (NEGATIVE) RSV (PCR) (Negative) 07/18/22 07/18/22 07/18/22 Range/Units 17:00 18:21 18:26 WBC (4.5-11.0) X10^3/uL RBC (4.0-5.2) X10^6/uL Hgb (12.0-16.0) g/dL Hct (36-46) % MCV (80-100) fL MCH (26-34) PG MCHC (30-36) % RDW (11.6-14.8) % Plt Count (150-400) X10^3/uL Neut % (Auto) (50-75) % Lymph % (Auto) (25-40) % [place] % (Auto) (3-14) % Eos % (Auto) (2-4) % Baso % (Auto) (0-2) % Neut # (Auto) (1929-5078) /uL Lymph # (Auto) (3803-7457) /uL [place] # (Auto) (0-900) /uL Eos # (Auto) (0-450) /uL Baso # (Auto) (0-100) /uL Sodium (137-145) mmol/L Potassium (3.4-5.1) mmol/L Chloride (98-107) mmol/L Carbon Dioxide (22-32) mmol/L BUN (7-17) mg/dL Creatinine (0.52-1.04) mg/dL Estimated GFR (>60) mL/min BUN/Creatinine Ratio (6-22) Glucose (70-100) mg/dL Lactate (0.7-2.1) mmol/L Calcium (8.4-10.2) mg/dL Magnesium (1.6-2.3) mg/dL Total Bilirubin (0.2-1.3) mg/dL AST (14-36) IU/L ALT (<35) IU/L Alkaline Phosphatase (38-126) U/L Total Creatine Kinase (30-135) U/L CK-MB (CK-2) CK-MB (CK-2) Rel Index Troponin I (0.01-0.034) ng/mL C-Reactive Protein (<1.0) mg/dL NT-Pro-B Natriuret Pep (<125) pg/mL Total Protein (6.3-8.2) g/dL Albumin (3.5-5.0) g/dL Globulin (1.7-4.1) g/dL Albumin/Globulin Ratio (1.0-2.8) Lipase (23-300) U/L Procalcitonin (<0.5) ng/mL TSH 4.15 (0.47-4.68) uIU/mL Urine RBC 0-1/hpf (0-5/HPF) Urine WBC 0-1/hpf (0-5/HPF) Ur Squamous Epith Cells 10-30 /hpf H D (0-5/HPF) Urine Bacteria Moderate (10-30) H (None) Ur Culture Indicated? Cult not indicated SARS-CoV-2 (PCR) Negative (Negative) Influenza A (RT-PCR) Flu a negative (NEGATIVE) Influenza B (RT-PCR) Flu b negative (NEGATIVE) RSV (PCR) Negative (Negative) 07/18/22 07/18/22 07/18/22 Range/Units 18:45 18:45 20:35 WBC (4.5-11.0) X10^3/uL RBC (4.0-5.2) X10^6/uL Hgb (12.0-16.0) g/dL Hct (36-46) % MCV (80-100) fL MCH (26-34) PG MCHC (30-36) % RDW (11.6-14.8) % Plt Count (150-400) X10^3/uL Neut % (Auto) (50-75) % Lymph % (Auto) (25-40) % [place] % (Auto) (3-14) % Eos % (Auto) (2-4) % Baso % (Auto) (0-2) % Neut # (Auto) (1919-3096) /uL Lymph # (Auto) (2908-7728) /uL [place] # (Auto) (0-900) /uL Eos # (Auto) (0-450) /uL Baso # (Auto) (0-100) /uL Sodium (137-145) mmol/L Potassium (3.4-5.1) mmol/L Chloride (98-107) mmol/L Carbon Dioxide (22-32) mmol/L BUN (7-17) mg/dL Creatinine (0.52-1.04) mg/dL Estimated GFR (>60) mL/min BUN/Creatinine Ratio (6-22) Glucose (70-100) mg/dL Lactate Cancelled 3.2 H 2.8 H (0.7-2.1) mmol/L Calcium (8.4-10.2) mg/dL Magnesium (1.6-2.3) mg/dL Total Bilirubin (0.2-1.3) mg/dL AST (14-36) IU/L ALT (<35) IU/L Alkaline Phosphatase (38-126) U/L Total Creatine Kinase (30-135) U/L CK-MB (CK-2) CK-MB (CK-2) Rel Index Troponin I (0.01-0.034) ng/mL C-Reactive Protein (<1.0) mg/dL NT-Pro-B Natriuret Pep (<125) pg/mL Total Protein (6.3-8.2) g/dL Albumin (3.5-5.0) g/dL Globulin (1.7-4.1) g/dL Albumin/Globulin Ratio (1.0-2.8) Lipase (23-300) U/L Procalcitonin (<0.5) ng/mL TSH (0.47-4.68) uIU/mL Urine RBC (0-5/HPF) Urine WBC (0-5/HPF) Ur Squamous Epith Cells (0-5/HPF) Urine Bacteria (None) Ur Culture Indicated? SARS-CoV-2 (PCR) (Negative) Influenza A (RT-PCR) (NEGATIVE) Influenza B (RT-PCR) (NEGATIVE) RSV (PCR) (Negative) Point of care testing: Point of Care Testing Test Results Negative Urine Dip Bedside Urine Glucose 1000 mg/dl Bedside Urine Bilirubin - Negative Bedside Urine Ketone - Negative Urine Specific [place] 1.010 Bedside Urine Occult Blood - Negative Bedside Urine pH 6.0 Bedside Urine Protein - Negative Bedside Urine Urobilinogen - Negative Bedside Urine Nitrite - Negative Bedside Urine Leukocytes - Negative Esterase MDM Narrative Medical decision making narrative: Chief Complaint: Worsening pelvic/lower abdominal pain Independent historian: Patient Differential diagnoses include but are not limited to: biliary disease, gastroen teritis, esophagitis, gastritis, peptic ulcer, bowel obstruction,perforated viscus, appendicitis, colitis, diverticulitis, IBD/IBS, intestinal ischemia, pyelonephritis, obstructive uropathy, AAA, hernia, colon cancer, herniated disk, urinary retention, ectopic , fibroids, ovarian mass/cyst, torsion, vaginitis/PID. Doubt atypical ACS. No peritoneal signs on abdominal exam. Patient remains p.o. tolerant. Serial abdominal exam without increase in abdominal pain. Extensive conversation about ER return precautions and need for close follow-up. I have independently reviewed the patient's vital signs and nursing notes as well as prior records if available. Pertinent lab findings reviewed: Patient's wet prep was positive for wbc's and clue cells Pertinent Imaging reviewed: CT abdomen and pelvis is negative for acute abnormality, diverticulosis is seen without evidence of perforation or diverticulitis, no dilated bowel loops, incidentally patient has an enlarged fatty liver, normal appendix, and normal L4-5 postoperative hardware. No evidence of intra peritoneal fluid or free air Patient has received 1 L of fluid states that she started feel better, pain control was ordered and she was given Dilaudid and Tylenol. Recheck her lactate which came back at 3.5 down from 4.7, ordered 2 L of normal saline, she is p.o. tolerant and sipping on water. Social considerations that may affect disposition: none Questions are addressed and there is agreement with the plan and for follow-up. Patient is appropriate for outpatient management. MIPS: This encounter doesn't have any diagnosis' associated with MIPS criteria. Dr arora: Received turned over. Review patient's history and physical exam and workup up to this point. Patient has had a relatively unremarkable workup h ere in the ER. Her lactate has been improving with fluids. Her heart rate is improving. She received antibiotics for a urinary tract infection although she did have quite a few epi cells in her urinalysis and she does not have any UTI symptoms. There was a culture pending at the time of her discharge. Patient did have a pelvic exam performed. She does have bacterial vaginosis. She was given a dose of Flagyl here in the ER and a prescription for Flagyl will be sent home with her. Patient is on anticoagulation. Patient does not have any signs of an acute GI bleed. I have low suspicion that the diagnosed urinary tract infection is causing sepsis. I questioned whether not she actually has an infection however the prior provider as decided to treat with antibiotics. I reviewed the medical record shows that the patient's heart rate is routinely elevated. Provided reassurance to the patient. Patient is tolerating oral intake. No indication for further workup here in the emergency department nor admission to the hospital. She was given return precautions. She expressed understanding and agreement. Discharge Plan Departure Patient Disposition: Home Clinical Impression: Bacterial vaginosis, Acute dehydration Urinary tract infection Qualifiers: Urinary tract infection type: acute cystitis Hematuria presence: without hematuria Qualified Code(s): N30.00 - Acute cystitis without hematuria Instructions: Bacterial Vaginosis, Urinary Tract Infection, Dehydration Activity Restrictions/Additional Instructions: *You have been diagnosed with bacterial vaginosis/vaginal infection and urinary tract infection which has made you sick and dehydrated today. I have given you antibiotics to treat both of them as well as nausea medicine and MiraLax so that you have daily soft stools. If your stool becomes firm in the lower abdomen it can cause worsening pain related to what you have going on. Stay hydrated, avoid bulking up your stool with antidiarrheal medicine again. It is better to have consistent soft stool then fluctuate between soft and hard. Please return for worsening symptoms, no evidence of acute abdomen or surgical need, the antibiotic should make it better, thank you for your patients today, please hold your diuretic medications for the next 24 hours and restart if you develop edema and that is worsening. Please focus on hydrating herself since you were pretty dry today. None of this should affect your plans with Gastroenterology for scope. Typically they like to complete this when you are well and not having symptoms like you are today. *What to do: *Please continue to take your regular medications as directed. [ x] New medication prescriptions sent to your pharmacy: [[facility] ] [ ] New medication written as a paper prescription [ ] No new medications given *Please follow up with your primary care provider in 2-3 days, call for an appointment. Let them know you were seen in the Emergency Department and that we asked that you be seen for follow-up. We will electronically transmit a record of today's note if your PCP is in our system *If you do not have a primary care provider please contact [phone] to establish care with one of the [facility] primary care providers. *Return to Emergency Department if you should have any new, worsening, or concerning symptoms, such as [fever greater than 101F, chills, worsening pain, persistent vomiting or other bothersome symptoms]. Prescriptions: New metronidazole 500 mg tablet 500 mg PO BID 10 Days Qty: 20 0RF cefdinir 300 mg capsule 300 mg PO BID 7 Days Qty: 14 0RF ondansetron 4 mg tablet,disintegrating 4 mg PO Q8H PRN (Reason: nausea and vomiting) Qty: 14 0RF polyethylene glycol 3350 [Miralax] 17 gram/dose powder 17 g PO DAILY PRN (Reason: for soft stool) Qty: 238 0RF dicyclomine 10 mg capsule 10 mg PO BID PRN (Reason: abdominal pain) Qty: 14 0RF No Action pregabalin 300 mg capsule 300 mg PO BID Qty: 180 3RF Rx Instructions: take 1 capsule by mouth twice a day (DME) lancets [Easy Touch Twist Lancets] 33 gauge misc See Dose Instructions .ROUTE .MEDSUPPLY Qty: 100 3RF Hold Instructions: Not checking her blood sugar regularly Dose Instruction: As directed Rx Instructions: test qd 90 min after meal doxepin 100 mg capsule 200 mg PO BEDTIME Qty: 60 5RF (DME) Compressioin Stockings Qty: 1 0RF Hold Instructions: patient is not using them Rx Instructions: As directed (DME) [place] Blood Glucose Test Strips See Rx Instructions .Route .MEDSUPPLY Qty: 180 3RF Hold Instructions: Not checking her BP regularly Rx Instructions: Use to test blood glucose twice daily, fasting a 2hrs post prandial omeprazole 20 mg capsule,delayed release(DR/EC) See Rx Instructions .ROUTE .COMPLEX Qty: 60 11RF Dose Instruction: TAKE 1 CAPSULE BY MOUTH TWICE DAILY. Rx Instructions: TAKE 1 CAPSULE BY MOUTH TWICE DAILY. metformin 500 mg tablet 1,000 mg PO BID Qty: 120 11RF albuterol sulfate 90 mcg/actuation HFA aerosol inhaler See Rx Instructions .ROUTE .COMPLEX Qty: 18 11RF Hold Instructions: Home Medication placed on hold at Doctor's office Dose Instruction: INHALE 2 PUFFS BY MOUTH EVERY 4 TO 6 HOURS NEEDED FOR SHORTNESS OF BREAT OR WHEEZING Rx Instructions: INHALE 2 PUFFS BY MOUTH EVERY 4 TO 6 HOURS NEEDED FOR SHORTNESS OF BREAT OR WHEEZING Xarelto 20 mg tablet See Rx Instructions .ROUTE .COMPLEX Qty: 30 5RF Dose Instruction: TAKE 1 TABLET BY MOUTH DAILY WITH EVENING MEAL Rx Instructions: TAKE 1 TABLET BY MOUTH DAILY WITH EVENING MEAL ipratropium bromide 17 mcg/actuation HFA aerosol inhaler 1 puff inhalation Q8H Qty: 12.9 2RF levalbuterol tartrate 45 mcg/actuation HFA aerosol inhaler 1 puff inhalation Q4-6H PRN (Reason: shortness of breath or wheezing) Qty: 15 2RF terazosin 2 mg capsule See Rx Instructions .ROUTE .COMPLEX Qty: 30 3RF Dose Instruction: TAKE 1 CAPSULE BY MOUTH AT BEDTIME Rx Instructions: TAKE 1 CAPSULE BY MOUTH AT BEDTIME furosemide 40 mg tablet See Rx Instructions .ROUTE .COMPLEX Qty: 135 5RF Dose Instruction: TAKE 2 AND 1/2 TABLETS BY MOUTH EVERY MORNING AND 2 TABLETS EVERY EVENING FOR A TOTAL OF 180 MG DAILY Rx Instructions: TAKE 2 AND 1/2 TABLETS BY MOUTH EVERY MORNING AND 2 TABLETS EVERY EVENING FOR A TOTAL OF 180 MG DAILY cyclobenzaprine 10 mg tablet See Rx Instructions .ROUTE .COMPLEX Qty: 90 1RF Dose Instruction: TAKE 1 TABLET BY MOUTH THREE TIMES DAILY NEEDED FOR MUSCLE SPASM Rx Instructions: TAKE 1 TABLET BY MOUTH THREE TIMES DAILY NEEDED FOR MUSCLE SPASM aripiprazole 30 mg tablet 30 mg PO DAILY 30 Days Qty: 30 5RF Rx Instructions: Take one 30mg tablet by mouth daily spironolactone 25 mg tablet See Rx Instructions .ROUTE .COMPLEX Qty: 30 0RF Dose Instruction: TAKE 1/2 TABLET BY MOUTH DAILY Rx Instructions: TAKE 1/2 TABLET BY MOUTH DAILY meclizine 25 mg tablet See Rx Instructions .ROUTE .COMPLEX Qty: 90 5RF Dose Instruction: TAKE 2 TABLETS BY MOUTH DAILY NEEDED FOR DIZZINESS OR VERTIGO Rx Instructions: TAKE up to 3 TABLETS BY MOUTH DAILY NEEDED FOR DIZZINESS OR VERTIGO magnesium oxide 400 mg (241.3 mg magnesium) tablet 400 mg PO DAILY Qty: 30 0RF levothyroxine 25 mcg tablet See Rx Instructions .ROUTE .COMPLEX Qty: 90 0RF Dose Instruction: TAKE 1 TABLET BY MOUTH DAILY AT 6 AM Rx Instructions: TAKE 1 TABLET BY MOUTH DAILY AT 6 AM budesonide 0.5 mg/2 mL suspension for nebulization See Rx Instructions .ROUTE .COMPLEX Qty: 180 0RF Dose Instruction: USE 1 VIAL VIA NEBULIZER TWICE DAILY Rx Instructions: USE 1 VIAL VIA NEBULIZER TWICE DAILY ferrous sulfate 325 mg (65 mg iron) tablet See Rx Instructions .ROUTE .COMPLEX Qty: 90 0RF Dose Instruction: TAKE 1 TABLET BY MOUTH DAILY Rx Instructions: TAKE 1 TABLET BY MOUTH DAILY acetaminophen [Tylenol Extra Strength] 500 mg tablet 2,000 mg PO BID ketoconazole 2 % shampoo 1 applic TOPICAL DAILY [place] (28) 0.3-30 mg-mcg tablet 1 tab PO QAM Label Comments: TAKE 2 ACTIVE TABLETS DAILY FOR 26 DAYS. ibuprofen 800 mg tablet 800 mg PO TID PRN (Reason: Pain (Scale Score 1-3)) triamcinolone acetonide 0.1 % cream 1 applic TOPICAL BID Rx Instructions: mix 50/50 with Ketoconazole cream and apply to under breast twice daily until resolve. Do not exceed over 2 weeks of use during flare up. clobetasol 0.05 % ointment 1 applic TOPICAL BID Label Comments: APPLY TOPICALLY TO THE AFFECTED AREA TWICE DAILY fluticasone propion-salmeterol [Wixela Inhub] 100-50 mcg/dose blister with device 1 ea INHALATION BID Label Comments: INHALE 1 PUFF BY MOUTH TWICE DAILY. RINSE MOUTH WITH WATER AFTER USE. DO NOT SWALLOW Rx Instructions: Rinse mouth with water after each use, do not swallow. ketoconazole 2 % cream 1 applic TOPICAL BID Rx Instructions: apply to affected areas under breast twice daily, do not exceed use over 2 weeks per flare up. diazepam 5 mg tablet 5 mg PO TID PRN (Reason: Vertigo) Label Comments: TAKE 1 TABLET BY MOUTH THREE TIMES DAILY NEEDED FOR VERTIGO Norgestrel-Ethinyl Estradiol 1 tab PO BID Qty: 30 0RF ondansetron 4 mg tablet,disintegrating 4 mg PO Q8H PRN (Reason: nausea and vomiting) Qty: 20 0RF Referrals: Karina Grace MD [Physician] - Alejandra Lynch MD [Primary Care Provider] - Stand Alone Forms: Patient Portal/API
[2022-07-18 17:24] LABS: Alanine Aminotransferase 39 IU/L (<35); Albumin 4.3 g/dL (3.5-5.0); Albumin Globulin Ratio 1.2 (1.0-2.8); Alkaline Phosphatase 56 U/L (38-126); Aspartate Aminotransferase 59 IU/L (14-36); BUN Creatinine Ratio 22.9 (6-22); Bilirubin Total 0.3 mg/dL (0.2-1.3); Blood Urea Nitrogen 11 mg/dL (7-17); Calcium 9.2 mg/dL (8.4-10.2); Carbon Dioxide 29 mmol/L (22-32); Chloride 96 mmol/L (98-107); Estimated Glomerular Filt Rate > 60 mL/min (>60); Globulin 3.6 g/dL (1.7-4.1); Glucose 240 mg/dL (70-100); HEMOLYSIS < 15 (0-50); Lipase 65 U/L (23-300); Potassium 3.6 mmol/L (3.4-5.1); Sodium 137 mmol/L (137-145); Total Protein 7.9 g/dL (6.3-8.2)
[2022-07-18 17:37] LABS: Magnesium 1.8 mg/dL (1.6-2.3)
[2022-07-18 17:39] LABS: Lactate (Lactic Acid) 4.5 mmol/L (0.7-2.1)
--- NOTE | 2022-07-18 17:42 | DI.CT.S_ITS ---
PROCEDURE: CT ABDOMEN PELVIS W CON INDICATIONS: History of diverticulosis, worsening anasarca, abdominal distension TECHNIQUE: After the administration of IV contrast, axial sections were acquired from the lung bases to the pubic symphysis. Coronal and sagittal reformats were performed. For radiation dose reduction, the following was used: automated exposure control, adjustment of mA and/or kV according to patient size. COMPARISON: [facility], CR, XR CHEST 1V, 07/18/2022, 17:47. [facility], CT, CT ABDOMEN PELVIS W CON, 07/15/2022, 10:45. FINDINGS: Image quality: Excellent. Lung bases: Unremarkable. Heart: No significant findings. ABDOMEN: Liver: An enlarged, mildly fatty infiltrated liver can be seen. No focally suspicious liver lesion is seen. Gallbladder: Unremarkable. Biliary ducts: Unremarkable. Pancreas: Unremarkable. Spleen: Unremarkable. Adrenal Glands: Unremarkable. Kidneys and Ureters: Unremarkable. Stomach and Bowel: Stomach, small bowel loops, and colon are unremarkable. A normal appendix is seen. Mild distal colonic diverticulosis is seen, without findings of active diverticulitis. Peritoneum: No abnormal intraperitoneal fluid. No free air. Ventral Wall: No hernia. Abdominal Nodes: No retroperitoneal or mesenteric adenopathy by size criteria. Vessels: Aorta and inferior vena cava are normal in size. PELVIS: Pelvic Organs: The uterus appears normal for age. No adnexal masses are seen. Bladder: Unremarkable. Pelvic Nodes: No enlarged lymph nodes. Miscellaneous: No inguinal hernias are seen. Bones: L4-5 postoperative hardware is seen. IMPRESSION: Colonic diverticulosis is seen, without findings of active diverticulitis. No dilated loops of bowel are seen. Additional findings: Enlarged, fatty liver Normal appendix L4-L5 postoperative hardware Dictated by: Rickie Lundberg M.D. on 07/18/2022 at 17:33 Approved by: Rickie Lundberg M.D. on 07/18/2022 at 17:35
--- NOTE | 2022-07-18 17:46 | DI.RAD.S_ITS ---
PROCEDURE: XR CHEST 1V INDICATIONS: pleural effusions? hx chf, anasarca, tachycardia TECHNIQUE: One view of the chest was acquired. COMPARISON: [facility], CR, XR CHEST 1V, 07/15/2022, 9:31. [facility], CR, XR CHEST 1V, 03/01/2022, 18:53. [facility], CT, CT ANGIO CHEST PE PROTOCOL, 03/01/2022, 21:05. [facility], CT, CT ABDOMEN PELVIS W CON, 07/18/2022, 17:48. FINDINGS: This study is limited by body habitus. Surgical changes and devices: None. Lungs and pleura: Lungs are clear. No pleural effusions or pneumothorax. Mediastinum: Mediastinal contours appear normal. Heart size is normal. Bones and chest wall: No suspicious bony lesions. Overlying soft tissues appear unremarkable. IMPRESSION: Clear lungs, without effusions. Dictated by: Rickie Lundberg M.D. on 07/18/2022 at 17:32 Approved by: Rickie Lundberg M.D. on 07/18/2022 at 17:33
[2022-07-18 18:00] LABS: Creatine Kinase 79 U/L (30-135)
[2022-07-18 18:04] LABS: C-Reactive Protein Quant 2.9 mg/dL (<1.0)
[2022-07-18 18:12] LABS: NT-proBNP (BNP-Adult 18+) 41 pg/mL (<125)
[2022-07-18 18:13] LABS: Troponin I < 0.012 ng/mL (0.01-0.034)
[2022-07-18 18:19] LABS: Procalcitonin 0.06 ng/mL (<0.5)
[2022-07-18] MEDS: SODIUM CHLORIDE 0.9% 1,000 ML 1000 ML IV (18:20)
[2022-07-18] MEDS: ONDANSETRON 4 MG/2 ML INJ IV (18:20)
[2022-07-18 18:34] LABS: Thyroid Stimulating Hormone 4.15 uIU/mL (0.47-4.68)
[2022-07-18 18:39] LABS: Bacteria Urine Moderate (10-30); Culture Indicated Urine Cult Not Indicated; RBC Urine 0-1/HPF (0-5/HPF); Squamous Epithelial Cell Urine 10-30 /HPF (0-5/HPF); WBC Urine 0-1/HPF (0-5/HPF)
[2022-07-18] MEDS: HYDROMORPHONE 0.5 MG INJ IV (19:03)
[2022-07-18] MEDS: ACETAMINOPHEN 325 MG TABLET 975 MG PO (19:03)
[2022-07-18] MEDS: LACTATED RINGERS 1,000 ML 1000 ML IV (19:21)
[2022-07-18 19:27] LABS: Influenza A - CEPHEID Flu A NEGATIVE (NEGATIVE); Influenza B - CEPHEID Flu B NEGATIVE (NEGATIVE); Respiratory Syncytial Virus Negative (Negative)
[2022-07-18 19:27] LABS: Reflexed Lactate in 2 Hours Y
[2022-07-18 19:29] LABS: COVID-19 CEPHEID 4-PLEX PCR Negative (Negative)
[2022-07-18 19:34] LABS: Lactate 2HR (Lactic Acid Rflx) 3.2 mmol/L (0.7-2.1)
[2022-07-18] MEDS: cefTRIAXone 2,000 MG in SODIUM CHLORIDE 0.9% 100 ML 200 MG IV (19:52)
[2022-07-18] MEDS: metroNIDAZOLE 500 MG TABLET PO (20:00)
[2022-07-18] MEDS: HYDROCODONE/ACET 5/325 TABLET 1 TAB PO (20:16)
[2022-07-18 20:53] LABS: Lactate (Lactic Acid) 2.8 mmol/L (0.7-2.1)
[2022-07-18 22:40] LABS: Reflexed Lactate in 2 Hours Y
== END 2022-07-18 22:15 | disposition home or self-care (01) ==
PROVIDERS: Emergency Medicine; Nurse Practitioner Critical Care Medicine; Emergency Provider Emergency Medicine; PCP Family Medicine
DX: N30.00 Acute cystitis without hematuria (principal); N76.0 Acute vaginitis; E86.0 Dehydration; R00.0 Tachycardia, unspecified; R16.0 Hepatomegaly, not elsewhere classified; Z79.01 Long term (current) use of anticoagulants; Z20.822 Contact with and (suspected) exposure to COVID-19
CPT/HCPCS: 0241U; 36415; 71045; 74177; 80053; 81003; 81015; 81025; 82550; 83605; 83690; 83735; 83880; 84145; 84443; 84484; 85025; 86140; 87040; 87086; 87210; 93005; 96361; 96365; 96375; 99284; 99285; J0696; J1170; J2405; Q9967

== ENCOUNTER → 2022-07-25 13:09 | Outpatient (CLI) | payer OTHER, MEDICARE, SELFPAY ==
[2022-07-15 19:45] VITALS: BMI 46.0
--- NOTE | 2022-07-25 13:12 | DI.CT.S_ITS ---
PROCEDURE: CT ANGIO CHEST INDICATIONS: Tachycaria, hx of PE, and SOB TECHNIQUE: After the administration of intravenous contrast, 2 mm thick sections acquired from the pulmonary apices to the posterior costophrenic angles. 3-dimensional maximum intensity projection (MIP) coronal and sagittal reformats were then acquired through the thorax. For radiation dose reduction, the following was used: automated exposure control, adjustment of mA and/or kV according to patient size. COMPARISON: [facility], CT, CT ANGIO CHEST PE PROTOCOL, 03/01/2022, 21:05. [facility], CT, CT ANGIO CHEST PE PROTOCOL, 01/30/2020, 6:11. FINDINGS: Image quality: Excellent. Pulmonary arteries: Pulmonary arteries are normal in size, and demonstrate no intraluminal filling defects to suggest central pulmonary embolism. Lungs and pleura: Lungs are clear. No pleural effusions or pneumothorax. Central and peripheral airways are patent. Mediastinum: Heart size is normal, without pericardial effusion. No mediastinal or hilar adenopathy. Thoracic aorta is normal in caliber and enhancement. Esophagus is normal in caliber, without hiatal hernia. Bones and chest wall: No suspicious bony lesions. Ribs and thoracic spine appear intact throughout. Thyroid gland appears normal. No axillary or supraclavicular adenopathy. Abdomen: Visualized upper abdominal solid organs appear normal in the early arterial phase of enhancement. IMPRESSION: Normal for age, source of current symptoms is not seen. No pulmonary embolus is found. Dictated by: Beto Apple M.D. on 07/25/2022 at 14:15 Approved by: Beto Apple M.D. on 07/25/2022 at 14:17
== END ==
PROVIDERS: PCP Family Medicine; Referring Provider Family Medicine; Visit Provider Family Medicine
DX: R00.0 Tachycardia, unspecified (principal); R06.02 Shortness of breath; Z86.711 Personal history of pulmonary embolism
CPT/HCPCS: 71275

== ENCOUNTER → 2022-07-28 13:45 | Outpatient (CLI) | payer OTHER, MEDICARE, SELFPAY ==
[2022-07-15 19:45] VITALS: BMI 46.0
[2022-07-28 15:56] LABS: Adenovirus F 40/41 Not Detected (Not Detect); Astrovirus Not Detected (Not Detect); Campylobacter Not Detected (Not Detect); Clostridium difficile toxin AB Not Detected (Not Detect); Cryptosporidium Not Detected (Not Detect); Cyclospora cayetanensis Not Detected (Not Detect); Entamoeba histolytica Not Detected (Not Detect); Enteroaggregative E.coli Not Detected (Not Detect); Enteropathogenic E.coli Not Detected (Not Detect); Enterotoxigenic E.coli It/st Not Detected (Not Detect); Giardia lamblia Not Detected (Not Detect); Norovirus GI/GII Not Detected (Not Detect); Plesiomonsa shigelloides Not Detected (Not Detect); Rotavirus A Not Detected (Not Detect); Salmonella Not Detected (Not Detect); Sapovirus Not Detected (Not Detect); Shiga-like toxin-prod E.coli Not Detected (Not Detect); Shigella/Enteroinvasive E.coli Not Detected (Not Detect); Vibrio Not Detected (Not Detect); Vibrio cholerae Not Detected (Not Detect); Yersinia enterocolitica Not Detected (Not Detect)
== END ==
PROVIDERS: PCP Family Medicine; Referring Provider Family Medicine; Visit Provider Family Medicine
DX: R19.7 Diarrhea, unspecified (principal)
CPT/HCPCS: 87507

== ENCOUNTER → 2022-08-19 14:04 | Outpatient (CLI) | payer OTHER, MEDICARE, SELFPAY ==
[2022-07-15 19:45] VITALS: BMI 46.0
[2022-08-19 15:14] LABS: Add Manual Diff / Slide Review NO; Basophils Absolute Auto 0 /uL (0-100); Basophils Percent Auto 0.4 % (0-2); Eosinophils Absolute Auto 100 /uL (0-450); Eosinophils Percent Auto 1.5 % (2-4); Hemoglobin 13.3 g/dL (12.0-16.0); Lymphocytes Absolute Auto 1800 /uL (1100-4500); Lymphocytes Percent Auto 26.3 % (25-40); Mean Corpuscular HGB Conc 33.3 % (30-36); Mean Corpuscular Hemoglobin 28.1 PG (26-34); Mean Corpuscular Volume 84.4 fL (80-100); Monocytes Absolute Auto 500 /uL (0-900); Monocytes Percent Auto 7.6 % (3-14); Neutrophils Absolute Auto 4500 /uL (1500-7000); Neutrophils Percent Auto 64.2 % (50-75); Platelet Count 236 X10^3/uL (150-400); Red Blood Cell Count 4.74 X10^6/uL (4.0-5.2)
[2022-08-19 15:37] LABS: Prothrombin Time 11.4 SECONDS (10.1-12.7)
[2022-08-19 15:39] LABS: PTT Partial Thromboplastin Tim 30 SECONDS (26-36)
[2022-08-19 15:57] LABS: Alanine Aminotransferase 45 IU/L (<35); Albumin 4.3 g/dL (3.5-5.0); Albumin Globulin Ratio 1.3 (1.0-2.8); Alkaline Phosphatase 50 U/L (38-126); Aspartate Aminotransferase 59 IU/L (14-36); BUN Creatinine Ratio 24.5 (6-22); Bilirubin Total 0.4 mg/dL (0.2-1.3); Blood Urea Nitrogen 12 mg/dL (7-17); Calcium 10.2 mg/dL (8.4-10.2); Carbon Dioxide 28 mmol/L (22-32); Chloride 98 mmol/L (98-107); Cholesterol 177 mg/dL (140-199); Estimated Glomerular Filt Rate > 60 mL/min (>60); Globulin 3.4 g/dL (1.7-4.1); Glucose 123 mg/dL (70-100); HDL Cholesterol 31 mg/dL (40-60); HEMOLYSIS < 15 (0-50); Potassium 4.5 mmol/L (3.4-5.1); Sodium 137 mmol/L (137-145); Total Protein 7.7 g/dL (6.3-8.2); Triglycerides 411 mg/dL (35-150)
== END ==
PROVIDERS: Family Provider Family Medicine; PCP Family Medicine; Referring Provider Family Medicine; Visit Provider Family Medicine
DX: D64.9 Anemia, unspecified; E11.9 Type 2 diabetes mellitus without complications; F10.20 Alcohol dependence, uncomplicated; I27.20 Pulmonary hypertension, unspecified; I26.99 Other pulmonary embolism without acute cor pulmonale; E78.5 Hyperlipidemia, unspecified
CPT/HCPCS: 36415; 80053; 80061; 85025; 85610; 85730

== ENCOUNTER 2022-09-04 12:23 | Day surgery (SDC) | payer OTHER, MEDICARE, SELFPAY ==
[2022-07-15 19:45] VITALS: BMI 46.0
[2022-09-04 13:37] VITALS: BP 147/99; PULSE 126; RESP 26; TEMP 36.2; O2SAT 98; BMI 47.4
[2022-09-04] MEDS: LACTATED RINGERS 1,000 ML 1000 ML IV ×2 (13:49→14:51)
--- NOTE | 2022-09-04 13:50 | SUR.PREOP ---
Patient presents with tachycardia of 126 on arrival but denies any CP or SOB; denies any dizziness; patient is also on Xarelto and took her last dose on 09/03/2022; notified Dr Ferguson and anesthesia; orders received to infuse bolus of LR. Patient on bus monitor.
--- NOTE | 2022-09-04 14:49 | SUR.PREOP ---
Per INVESTIGATION DIVISION CAPTAIN, patient's HR up to 150 when ambulating; patient denies any CP or SOB; notified Dr Ferguson and Anesthesia. EKG ordered and completed. EKG evaluated by Liam Mazariegos CRNA. First liter of Lactated ringers completed. HR remains 120s with no symptoms.
--- NOTE | 2022-09-04 14:56 | PM.HP.1 ---
History of Present Illness History of Present Illness Date Patient Seen: 09/04/22 Chief complaint: Colonoscopy, bleeding per rectum Narrative: Ms. Oliveira is a 41-year-old female who has multiple medical problems and takes rivaroxaban daily for pulmonary embolus in January of 2019. She also has a history of recurrent DVTs. She has morbid obesity and COPD with a history of smoking as risk factors for that. She is presenting today after having been seen by my colleague Dr. Toney on August 14, 2022 as a follow-up from an ER visit where she presented for acute GI bleeding. He states, She had 1 episode of bright red blood per rectum.? She had been struggling with diarrhea at that point.? She continues to have diarrhea and is currently undergoing a workup for chronic diarrhea and has submitted a stool sample.? She has been taking antibiotics for a urinary tract infection during this time.? She had a colonoscopy in 2019 because of bleeding and no polyps were found in the bleeding was determined to be menstrual in nature.? She has no known family history of colon cancer.She thinks she can correlate her episodes of diarrhea with stress and anxiety. Possibly overeating. She is not able to correlate an exact food with the episodes of watery diarrheal bowel movements once or twice a week, and some more solid stools in between. She was advised to continue taking her rivaroxaban presumably by Dr. Toney and the last took it at her normal time last night. 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) Morbid obesity Narcotic habituation, continuous Nocturnal hypoxemia Obstipation LYLA (obstructive sleep apnea) Ovarian cyst Plantar fasciitis Psychogenic nonepileptic seizure Pulmonary embolism RBBB (right bundle branch block) Sinus tachycardia Status post laminectomy (12/14/15) Suicide attempt Tobacco abuse Tylenol overdose Urinary retention Surgical History History of carpal tunnel repair (~10/30/14) History of colonoscopy History of esophagogastroduodenoscopy (EGD) History of laminectomy History of laminectomy (~09/2016) History of lumbar spinal fusion (12/22/18) Hx of toe surgery (05/16/20) S/P epidural steroid injection (11/2013) Status post dilation and curettage (2008) Family History Grandfather Diabetes mellitus Family/Other Pancreatic cancer Social History household members: spouse Smoking Status: Former smoker alcohol intake: current eating out: 1-3 times/week Type(s) of exercise: normal ROM and activity and sedentary lifestyle Meds Home Medications and Allergies Home Medications Medication Instructions Recorded Confirmed Type acetaminophen 500 mg tablet 2,000 mg PO BID 09/23/18 09/04/22 History (Tylenol Extra Strength) lancets 33 gauge (Easy Touch Twist #100 ea 12/08/18 08/22/22 Rx Lancets) Compressioin Stockings #1 ea 10/13/19 08/25/22 Rx Livongo Blood Glucose Test Strips #180 ea 08/10/20 08/22/22 Rx omeprazole 20 mg capsule,delayed See Rx Instructions .Route 10/07/21 09/04/22 Rx release .COMPLEX #60 caps metformin 500 mg tablet 1,000 mg PO BID #120 tabs 10/24/21 09/04/22 Rx doxepin 100 mg capsule 200 mg PO BEDTIME #60 caps 12/31/21 09/04/22 Rx levalbuterol tartrate 45 1 puff inhalation Q4-6H PRN 01/22/22 09/04/22 Rx mcg/actuation aerosol inhaler shortness of breath or wheezing #15 grams furosemide 40 mg tablet See Rx Instructions .Route 05/20/22 09/04/22 Rx .COMPLEX #135 tabs cyclobenzaprine 10 mg tablet See Rx Instructions .Route 06/11/22 09/04/22 Rx .COMPLEX #90 tabs spironolactone 25 mg tablet See Rx Instructions .Route 06/27/22 09/04/22 Rx .COMPLEX #30 tabs meclizine 25 mg tablet See Rx Instructions .Route 07/14/22 09/04/22 Rx .COMPLEX #90 tabs clobetasol 0.05 % topical ointment 1 applic topical BID PRN Rash 07/16/22 09/04/22 History fluticasone 100 mcg-salmeterol 50 1 ea inhalation BID 07/16/22 09/04/22 History mcg/dose blistr powdr for inhalation (Wixela Inhub) ketoconazole 2 % shampoo 1 applic topical DAILY 07/16/22 08/26/22 History ketoconazole 2 % topical cream 1 applic topical BID PRN Rash 07/16/22 08/26/22 History triamcinolone acetonide 0.1 % 1 applic topical BID PRN Rash 07/16/22 09/04/22 History topical cream ferrous sulfate 325 mg (65 mg See Rx Instructions .Route 07/18/22 09/04/22 Rx iron) tablet .COMPLEX #90 tabs magnesium oxide 400 mg (241.3 mg 400 mg PO DAILY #30 tabs 07/18/22 09/04/22 Rx magnesium) tablet ascorbic acid (vitamin C) 500 mg 500 mg PO DAILY 07/28/22 09/04/22 History tablet metoprolol succinate 25 mg 25 mg PO DAILY 07/28/22 09/04/22 History tablet,extended release 24 hr potassium gluconate 595 mg (99 mg) 595 mg PO DAILY 07/28/22 09/04/22 History tablet vitamin B complex 1 cap PO DAILY 07/28/22 09/04/22 History diphenoxylate-atropine 2.5 2 tab PO QID PRN diarrhea #60 tabs 07/30/22 09/04/22 Rx mg-0.025 mg tablet (Lomotil) pregabalin 300 mg capsule 300 mg PO BID #180 caps 08/04/22 09/04/22 Rx norgestrel 0.3 mg-ethinyl See Rx Instructions .Route 08/07/22 09/04/22 Rx estradiol 30 mcg tablet (Cryselle .COMPLEX #56 tabs (28)) levothyroxine 25 mcg tablet See Rx Instructions .Route 08/18/22 09/04/22 Rx .COMPLEX #90 tabs rivaroxaban 20 mg tablet (Xarelto) See Rx Instructions .Route 08/25/22 09/04/22 Rx .COMPLEX #30 tabs aripiprazole 30 mg tablet 30 mg PO BEDTIME 08/26/22 09/04/22 History ipratropium bromide 17 2 puff inhalation Q8H PRN Wheezing 08/26/22 09/04/22 History mcg/actuation HFA aerosol inhaler (Atrovent HFA) terazosin 2 mg capsule See Rx Instructions .Route 08/29/22 Rx .COMPLEX #30 caps Allergies Allergy/AdvReac Type Severity Reaction Status Date / Time carisoprodol [CARISOPRODOL] AdvReac Severe urinary Verified 09/04/22 13:30 retention fosphenytoin AdvReac Severe Seizures Verified 09/04/22 13:30 Latex, Natural Rubber AdvReac Mild Rash Verified 09/04/22 13:30 Exam Vital Signs (past 8 hours): - 09/04/22 13:37 Temperature 97.1 F L Pulse Rate 126 H Respiratory Rate 26 H Blood Pressure 147/99 H Pulse Oximetry 98 Oxygen Delivery Method Room Air Oxygen Delivery Method Room Air Const General: cooperative and comfortable Nutritional Appearance: obese Orientation: alert, awake and oriented x3 Eyes General: appearance normal, both eyes and all related structures Resp Effort & Inspection: normal respiratory effort and able to speak in complete sentences Cardio Pulses: radial pulses present (mild tachycardia) GI Palpation: soft and No tender Skin Other: They are or are psoriatic patches on her arms Neuro Other: Ambulating with difficulty independently Assessment & Plan Assessment and plan (1) Acute GI bleeding: Status: Acute Assessment & Plan narrative: Presents today for screening colonoscopy I discussed the risks benefits and alternatives including but not limited to perforation of the colon and an incomplete exam she fully understands these risks and would like to proceed. I also discussed the possibility of bleeding. I think given that she is on a blood thinner and has had difficulty with GI bleeding in the past we will minimize the biopsies that are obtained during this exam. We will do a colonoscopy as well as we can in order to try to find the source of bleeding, and I think that for the diarrhea: a food and symptom journal taken for 1-2 week will be very helpful to correlate her symptoms with inciting factors and that might help more than even a biopsy to delineate the type of diarrhea that she is having. Perhaps she can be referred to a contracts advisor if this is ongoing.
--- NOTE | 2022-09-04 15:49 | P.OP.COLON_ITS ---
Operative Date/Time/Diagnoses Date of procedure: 09/04/22 Time of procedure: 15:49 Procedure & Clinicians Study performed: Colonoscopy Same procedure as scheduled: Yes Indications: GI bleeding Surgeon: Cristy Ferguson Procedure Notes Procedure in detail: Patient was taken to the endoscopy suite and placed in a left lateral decubitus position. A time-out was performed. With the help of anesthesiology provider conscious sedation was induced and maintained throughout the procedure. A dig ital rectal exam was performed and there were no masses or strictures. The colonoscope was introduced into the anal canal and advanced through to the cecum. Photograph was obtained of the appendiceal orifice. The bowel prep was good [place] bowel prep 2. There were diverticula throughout the entire sigmoid, and right colon. Several photographs were obtained of large diverticula there was no sign of active bleeding. The total withdrawal time was 13 minutes. No polyps were seen. There were no engorged or bleeding hemorrhoidal piles. The scope was retroflexed and a photograph was obtained. Patient tolerated the procedure well and went in good condition to postoperative care unit Findings: divertiulosis Specimen(s): none sent Post-procedure Plan for aftercare: Follow-up at the time for normal colon cancer screening I think age 51 is appropriate, as long as there are no new symptoms or change in your family history. I would strongly recommend powdered fiber supplement taken twice daily because of the diverticula. Disposition: PACU
[2022-09-04 15:51] VITALS: BP 146/90; PULSE 120; RESP 22; TEMP 36.6; O2SAT 93
[2022-09-04 15:54] VITALS: BP 143/100; PULSE 125; RESP 24; O2SAT 97
[2022-09-04 15:59] VITALS: BP 148/95; PULSE 118; RESP 14; O2SAT 97
[2022-09-04 16:08] VITALS: BP 149/101; PULSE 121; RESP 17; TEMP 37; O2SAT 98
[2022-09-04 16:09] VITALS: BP 160/100; PULSE 121; RESP 16; TEMP 36.9; O2SAT 97
--- NOTE | 2022-09-04 16:17 | SUR.PHASEI ---
Patient arrived to PACU with baseline HTN and tachycardia. PARTH Rosario okay with discharge with these vital signs. Patient's current heart rate 120 and blood pressure 145/99. Anita Dale RN
== END 2022-09-04 16:32 | disposition home or self-care (01) ==
PROVIDERS: Surgery; Family Provider Family Medicine; PCP Family Medicine; Referring Provider Surgery; Visit Provider Surgery
PROC: 0DJD8ZZ Inspection of Lower Intestinal Tract, Via Natural or Artificial Opening Endoscopic (ICD-10-PCS; CPT 45378; principal; 2022-09-04 13:15)
DX: K62.5 Hemorrhage of anus and rectum (principal); R19.7 Diarrhea, unspecified; K57.30 Diverticulosis of large intestine without perforation or abscess without bleeding; Z86.711 Personal history of pulmonary embolism; Z86.718 Personal history of other venous thrombosis and embolism; Z79.01 Long term (current) use of anticoagulants; J44.9 Chronic obstructive pulmonary disease, unspecified; F17.210 Nicotine dependence, cigarettes, uncomplicated; E66.9 Obesity, unspecified; E11.9 Type 2 diabetes mellitus without complications; Z79.84 Long term (current) use of oral hypoglycemic drugs; I10 Essential (primary) hypertension
CPT/HCPCS: 45378; 82962; 85610; 93005; 93010; J2704

== ENCOUNTER 2022-09-08 07:20 | Day surgery (SDC) | payer OTHER, MEDICARE, SELFPAY ==
[2022-01-29 10:34] VITALS: BMI 48.2
[2022-07-15 19:45] VITALS: BMI 46.0
[2022-09-08] VITALS (16 sets, daily range): BP systolic 134–175; BP diastolic 91–106; PULSE 87–120; RESP 10–21; TEMP 36.1–36.9; O2SAT 92–98; BMI 47.4
--- NOTE | 2022-09-08 | PATH_ITS ---
[facility] Accession Number: [id number] No. of containers..01 Tissue . 01 Material submitted: . uterus - UTERUS AND BILATERAL FALLOPIAN TUBES . 01 Diagnosis: Uterus and Bilateral Fallopian Tubes, Laparoscopic Supracervical Hysterectomy and Bilateral Salpingectomy (Weight 102 grams): Portions of inactive endometrium; negative for glandular hyperplasia, cytologic atypia, or malignancy. Portions of pseudodecidualized stromal change, suggestive of exogenous hormone effect, in the appropriate clinical setting. Myometrium with a small, benign leiomyoma (6 mm); negative for cytologic atypia or malignancy. Uterine serosa with no significant histomorphologic abnormality. Attached fallopian tube, complete cross-sections, with multiple benign paratubal cysts (up to 1 mm); no significant atypia identified. Detached fallopian tube, complete cross-sections, with multiple benign paratubal cysts (up to 2 mm); no significant atypia identified. [facility] 09/10/2022 1557 Local . 01 Electronically signed: . Janis Romeo MD, Pathologist NPI- [id number] . 01 Gross description: . The specimen is received in formalin labeled with the patient's name, , and uterus and bilateral fallopian tubes, and consists of a disrupted uterus (102 grams, 10.2 x 8.7 x 3.4 cm) with attached fimbriated fallopian tube (5.7 x 0.6 cm) and detached fimbriated fallopian tube (6.0 x 0.5 cm) with no cervix or additional adnexa. The serosa is hernandez and wrinkled with no evidence of hemorrhage or adhesion identified. The presumed endometrium is hernandez and velvety and averages 0.1 cm thick. The myometrium is pink-hernandez and trabecular measuring 2.7 cm in possible maximum thickness with a single white whorled well-circumscribed nodule measuring 0.6 cm in greatest dimension, and no additional lesions identified. . The attached fallopian tube has congested smooth serosa with multiple cystic structures measuring 0.1 cm in greatest dimension filled with cloudy serous fluid. Sectioning reveals an unremarkable stellate lumen. The detached fallopian tube has congested smooth serosa with multiple cystic structures filled with cloudy serous fluid measuring up to 0.2 cm in greatest dimension. Sectioning reveals an unremarkable stellate lumen. . . Court Manager sections are submitted as follows: A1-A2: Full thickness sections. A3: Court Manager serosa. A4: Court Manager nodule. A5: Attached fallopian tube to include one-half of bisected fimbriae and cross-sections. A6: Detached fallopian tube to include one-half of bisected fimbriae and cross-sections. ([id number]) /MRV 09/09/2022 1853 Local . 01 Pathologist provided ICD-10: N92.0, R10.2 . 01 CPT . 709334 Specimen Comment: A courtesy copy of this report has been sent to [phone] Performed at: [address] [facility] [address] [place] [address] [address] [facility]– [place], [place], [place] [id number] MD Gustavo Dorsey MD Phone: [phone]
[2022-09-08 08:39] LABS: COVID19 -Nasal RAPID Negative (Negative)
[2022-09-08] MEDS: LACTATED RINGERS 1,000 ML 100 ML IV ×2 (08:42→15:41)
--- NOTE | 2022-09-08 11:09 | PM.PREOP ---
Pre-operative Note COVID-19 Criteria for continued procedure: Non-surgical alternatives not available or appropriate per current SOC Interval Note History & Physical reviewed/Exam performed by Physician: Yes Changes to H&P: No H&P completed within 30 days and has changed as indicated here:: 08/25/22
[2022-09-08] MEDS: CEFAZOLIN VIAL 1 GM in SODIUM CHLORIDE 0.9% 100 ML IV (12:00)
[2022-09-08] MEDS: CEFAZOLIN 2 GM/100 ML PREMIX 100 ML IV (12:00)
--- NOTE | 2022-09-08 12:43 | SUR.OPER ---
Lithotomy on padded OR bed. Lucas Pad Positioner under torso. Head on pillow, arms padded and tucked at sides. Legs secured in padded yellow fins stirrups.
[2022-09-08] MEDS: BUPIVACAINE 0.5% (PF) 30 ML, EPINEPHrine 0.15 MG INJ (13:08)
[2022-09-08] MEDS: ROPIVACAINE 0.2% PF 2 MG/ML 20ML AMP 20 ML INJ (13:11)
--- NOTE | 2022-09-08 14:05 | P.OP_ITS ---
Operative Date/Time/Diagnoses Date of procedure: 09/08/22 Time of procedure: 14:05 Pre-op diagnosis: Pelvic pain Menorrhagia Post-op diagnosis: same Procedure & Clinicians Procedure: Procedures Operation Date: 09/08/22 09:45 Actual Procedure Side Surgeon p Laparoscopic Supracervical Hysterectomy with Bilateral Salpingectomy Judie Babb MD Indications: Pelvic pain Menorrhagia Surgeon: Judie Babb Supervisor Research Shop: Jacquelin Mckinnon Anesthesia Type: General and Local Operative Notes Findings: 8 week size anteverted uterus Normal tubes and ovaries Normal liver Normal appendix Closure Type: primary Specimen(s): left tube, right tube and uterus Applied: catheter (Removed at the end of the case) Estimated blood loss (mL): 20 Blood products transfused: none Procedure in detail: The patient was taken to the operating room where she was placed in the dorsal supine position. After adequate general endotracheal anesthesia was achieved, she was placed in the dorsal lithotomy position, and prepped and draped in the usual sterile fashion. A timeout was performed. A bivalve speculum was placed into the vagina and the anterior lip of the cervix grasped with a single-tooth tenaculum. The cervical os was sequentially dilated until the ZUMI uterine manipulator could pass easily into the endometrial cavity. The single-tooth tenaculum was removed from the anterior lip of the cervix, and the bivalve speculum was removed from the vagina. Attention was then turned to the abdomen where 6 mL of half percent Marcaine with epinephrine were injected in the umbilical fold. A 5 mm incision was made. The veress needle was placed into the peritoneal cavity, and its placement confirmed by aspiration and drop test. The veress needle was removed. A 5 mm trocar was placed without difficulty. 2 other incisions were made 4 cm lateral to the umbilicus after 5 mL of half percent Marcaine with epinephrine were injected. These were 5 mm incisions. Two, 5 mm trocars were placed under direct visualization. The right tube was grasped with an atraumatic grasper. Using the Powerseal, the mesosalpinx was cauterized and cut all the way down to the cornua of the uterus. The cornua of the uterus was then grasped with an atraumatic grasper. The utero-ovarian ligaments were cauterized and cut. The round ligament and broad ligament were cauterized and cut. Hemostasis was achieved. The bladder flap was created using the Powerseal with cautery and cut group home across. The uterine arteries on the right side were extensively cauterized with the Powerseal. All of this was repeated on the left side. The remainder of the bladder flap was created using the Powerseal, and the bladder taken down off the lower uterine segment and cervix. Using the Linaloop, the cervix was amputated from the uterus 2 cm above the uterosacral ligaments, after the ZUMI uterine manipulator was removed from the uterus and a moistened sponge stick was placed in the vagina. There was no bleeding from the cervix. The endocervical canal was cauterized with the spatula cautery. 6 mL of half percent Marcaine with epinephrine were injected above the pubic symphysis. A 12mm incision was made. A 12 mm trocar was placed under direct visualization. An Endobag was placed through the suprapubic incision and the uterus and tubes were placed into the Endobag. The trocar was removed. The edges of the bag were brought up through the incision. The uterus was grasped with a Brice. The Atul was placed into the bag. The uterus was hand morcellated in approximately 1 piece. The Endobag and Atul were removed from the peritoneal cavity. The fascia on the suprapubic incision was closed with 0 Vicryl in a running fashion. The abdomen was re-insufflated with carbon dioxide gas. The pelvis was copiously irrigated with warm normal saline. No bleeding was noted. 20 mL of 0.2% ropivacaine were placed over the pelvic pedicles. The instruments were removed from the abdomen. The CO2 was allowed to escape. All of the incisions were closed with 4-0 Biosyn in a subcuticular fashion. Steri strips and Allevyn dressing were placed over the incisions. The moistened sponge stick was removed from the vagina. Sponge, lap, and instrument counts were correct x 2. The patient tolerated the procedure well, was taken to PACU in stable condition. Complications: none Post-operative Condition: stable Disposition: PACU Plan for aftercare: To acute care after recovery
[2022-09-08] MEDS: fentaNYL 100 MCG/2 ML INJ IV ×2 (14:10→14:23)
--- NOTE | 2022-09-08 14:39 | SUR.PHASEI ---
Called Dr. Swann, patient received IV Tylenol in pre-op, got percocet order changed to oxycodone. Anita Guzman
[2022-09-08] MEDS: OXYCODONE IR 5 MG TABLET PO ×2 (14:44→23:43)
--- NOTE | 2022-09-08 14:52 | SUR.PHASEI ---
Kelsey called and updated on patient status in PACU. Anita Guzman
[2022-09-08] MEDS: KETOROLAC 30 MG/ML VIAL IV ×2 (15:40→21:03)
--- NOTE | 2022-09-08 16:35 | PC.NURSE ---
Assess- Patient is alert and oriented x4. She had a lap hysterectomy with bilateral tube removal. She has her ovaries and cervix. Patient on ivf and given toradol for pain. She has no shelton and has not voided yet. Patient to room about and hour ago. She is comfortable and visiting with her .
[2022-09-08] MEDS: METFORMIN HCL 500 MG TABLET 1000 MG PO (17:08)
[2022-09-08] MEDS: ACETAMINOPHEN 325 MG TABLET 650 MG PO (20:07)
[2022-09-08] MEDS: ARIPiprazole 10 MG TABLET 30 MG PO (21:02)
[2022-09-08] MEDS: FUROSEMIDE 20 MG TABLET 60 MG PO (21:03)
[2022-09-08] MEDS: TERAZOSIN 1 MG CAPSULE PO (21:03)
[2022-09-08] MEDS: PREGABALIN 75 MG CAPSULE 300 MG PO (21:03)
[2022-09-08] MEDS: DOCUSATE 100 MG CAPSULE 200 MG PO (21:03)
[2022-09-08] MEDS: BUDESONIDE 0.5 MG/2 ML NEB INH (22:07)
[2022-09-09] VITALS (7 sets, daily range): BP systolic 122–137; BP diastolic 68–88; PULSE 95–133; RESP 15–18; TEMP 35.9–36.1; O2SAT 94–97
[2022-09-09] MEDS: LACTATED RINGERS 1,000 ML 100 ML IV ×2 (01:26→11:12)
[2022-09-09] MEDS: KETOROLAC 30 MG/ML VIAL IV ×2 (04:11→09:21)
[2022-09-09] MEDS: ACETAMINOPHEN 325 MG TABLET 650 MG PO ×2 (04:26→10:26)
[2022-09-09 05:44] LABS: Add Manual Diff / Slide Review NO; Basophils Absolute Auto 100 /uL (0-100); Basophils Percent Auto 0.8 % (0-2); Eosinophils Absolute Auto 0 /uL (0-450); Eosinophils Percent Auto 0.1 % (2-4); Hematocrit 37.5 % (36-46); Hemoglobin 12.2 g/dL (12.0-16.0); Lymphocytes Absolute Auto 2100 /uL (1100-4500); Lymphocytes Percent Auto 23.2 % (25-40); Mean Corpuscular HGB Conc 32.5 % (30-36); Mean Corpuscular Hemoglobin 27.8 PG (26-34); Mean Corpuscular Volume 85.4 fL (80-100); Monocytes Absolute Auto 700 /uL (0-900); Monocytes Percent Auto 8.1 % (3-14); Neutrophils Absolute Auto 6100 /uL (1500-7000); Neutrophils Percent Auto 67.8 % (50-75); Platelet Count 242 X10^3/uL (150-400); Red Blood Cell Count 4.39 X10^6/uL (4.0-5.2); Red Cell Distribution Width 14.2 % (11.6-14.8)
[2022-09-09] MEDS: LEVOTHYROXINE 25 MCG TABLET PO (06:07)
[2022-09-09 06:25] LABS: Blood Urea Nitrogen 12 mg/dL (7-17); Calcium 9.6 mg/dL (8.4-10.2); Carbon Dioxide 24 mmol/L (22-32); Chloride 103 mmol/L (98-107); Estimated Glomerular Filt Rate > 60 mL/min (>60); Glucose 130 mg/dL (70-100); HEMOLYSIS < 15 (0-50); Potassium 3.9 mmol/L (3.4-5.1); Sodium 137 mmol/L (137-145)
[2022-09-09 06:31] LABS: BUN Creatinine Ratio 25.5 (6-22); Blood Urea Nitrogen 12 mg/dL (7-17); Calcium 9.6 mg/dL (8.4-10.2); Carbon Dioxide 25 mmol/L (22-32); Chloride 102 mmol/L (98-107); Estimated Glomerular Filt Rate > 60 mL/min (>60); Glucose 130 mg/dL (70-100); HEMOLYSIS < 15 (0-50); Potassium 3.9 mmol/L (3.4-5.1); Sodium 137 mmol/L (137-145)
[2022-09-09 06:43] LABS: Troponin I < 0.012 ng/mL (0.01-0.034)
[2022-09-09] MEDS: METFORMIN HCL 500 MG TABLET 1000 MG PO (07:53)
[2022-09-09] MEDS: OXYCODONE IR 5 MG TABLET PO ×2 (07:54→11:12)
[2022-09-09] MEDS: PREGABALIN 75 MG CAPSULE 300 MG PO (08:00)
[2022-09-09] MEDS: FUROSEMIDE 20 MG TABLET 60 MG PO (08:00)
[2022-09-09] MEDS: DOCUSATE 100 MG CAPSULE 200 MG PO (08:00)
[2022-09-09] MEDS: METOPROLOL ER 25 MG TABLET PO (08:05)
[2022-09-09] MEDS: SPIRONOLACTONE 25 MG TABLET 12.5 MG PO (08:06)
[2022-09-09] MEDS: MAGNESIUM OXIDE 400 MG TABLET PO (08:06)
[2022-09-09] MEDS: ALBUTEROL 2.5 MG/3 ML NEB (ADULT) INH (08:55)
[2022-09-09] MEDS: BUDESONIDE 0.5 MG/2 ML NEB INH (08:55)
[2022-09-09] MEDS: OXYCODONE IR 10 MG TABLET PO (09:21)
--- NOTE | 2022-09-09 10:36 | PC.NURSE ---
Pt was able to sit up to the edge of the bed with one person assist. Pt became tearful stating that she was worried that she was going to fall because she's fallen at home due to her vertigo. Due to fall hx at home pt requested that all four bed rails be up.
[2022-09-09] MEDS: MORPHINE 2 MG/ML INJ IV (13:29)
--- NOTE | 2022-09-09 13:36 | CM.DANOTE ---
Initial DCP Assessment Note Pt is a 41 yo female, resident of [place], POD 1 from Laparoscopic Supracervical Hysterectomy with Bilateral Salpingectomy hx of recurrent PE on chronic anticoagulation with Xarelto, pulmonary hypertension, hypertension, DM Type 2 with good control on Metformin, anasarca, GERD, depression and anxiety, recent hx of tobacco use, hx of alcohol abuse, hypothyroidism, LYLA, and morbid obesity PCP: Alejandra Lynch Payer: Healthcare Management/[employer] Patient seen in Jun by this TRENCH SHOVEL OPERATOR- lives w/spouse and 2 dogs, no children. Patient is on disability benefits says she needs assist with higher ADLs, uses a walker in and out of the house r/t severe vertigo Patient and spouse deny needs from this TRENCH SHOVEL OPERATOR, patient plans to return home upon discharge w/close outpatient follow up JEANNINE Castrejon Discharge Planning/Care Management CM Discharge Assessment Start: 09/09/22 13:31 Freq: Status: Active Protocol: Document 09/09/22 13:31 DOMINGO (Rec: 09/09/22 13:34 DOMINGO [id number]) Discharge Planning Assessment Assigned Assurance Specialist JEANNINE Govea DPOA/Assigned Designee Name Morgan Scott, spouse Contact Information [phone] Advance Directives? No History Provided By Patient,Significant Other, Medical Record Prior Living Arrangements House Household Members spouse Type of transporation used prior to Drives own vehicle admit Independent with ADL's Yes Is patient alert and oriented? Yes Barriers to Discharge No Comment Home w/supportive spouse, patient hopeful to discharge today w/close outpatient follow up Discharge Plan Home Transportation Arrangement Spouse Referrals Initiated None needed
--- NOTE | 2022-09-09 15:15 | PC.NURSE ---
Patient d/c: Patient education done at bedside. Spouse to return for transportation. Patient able to get dressed on own. IV remove, no questions or concerns at d/c. Patient left in stable condition with no complaints of pain or discomfort. VSS.
--- NOTE | 2022-09-09 20:53 | P.DS_ITS ---
History of Present Illness History of Present Illness Date Patient Seen: 09/09/22 Time Patient Seen: 13:20 Chief complaint: Laparoscopic Supracervical Hysterectomy Narrative: Patient is a 41-year-old 1 para 0 who presented on September 08, 2022 for laparoscopic supracervical hysterectomy with bilateral salpingectomy. This was done due to menorrhagia and pelvic pain. She underwent this procedure without complication. Overnight on the first postop day she experienced some chest discomfort. She had an EKG and labs which were normal. She was tolerating a diet. She voided without the catheter. Her pain was well controlled. No nausea or vomiting. Discharge Providers Provider Date of admission: 09/08/22 Discharge Date: 09/09/22 Primary care physician: Alejandra Lynch MD Discharge provider: Judie Babb MD Summary Hospital Course Discharge Diagnosis: Menorrhagia Pelvic pain Status post laparoscopic supracervical hysterectomy with bilateral salpingectomy Hospital Course: Patient is a 41-year-old 1 para 0 who presented on September 08, 2022 for a scheduled laparoscopic supracervical hysterectomy with bilateral salpingectomy. She underwent this procedure without complication. Her catheter was removed at the end of the procedure. She was able to void that evening without the catheter. On postop day # 1 her pain was well controlled. No nausea or vomiting. She was tolerating a diet. She was ambulating without assistance. Status at Discharge Cognitive/behavioral status at discharge: oriented Functional status at discharge: independent ambulation Overall status at discharge: patient is progressing back to baseline Time Spent with Patient Time spent: Less than 30 minutes Exam Vital Signs (past 8 hours): Oxygen Delivery Method Room Air Oxygen Flow Rate 0 Narrative Exam Narrative: Generally: Patient is sitting up in bed, no acute distress Lungs: Clear to auscultation bilaterally Cardiovascular: Regular rate and rhythm Abdomen: Good bowel sounds Incisions: Clean dry and intact with Allevyn dressings Extremities: No edema, negative Homans Objective Labs 09/09/22 05:30 09/09/22 05:30 Labs: Laboratory Results - last 24 hr 09/09/22 09/09/22 09/09/22 05:30 05:30 05:30 WBC 9.0 RBC 4.39 Hgb 12.2 Hct 37.5 MCV 85.4 MCH 27.8 MCHC 32.5 RDW 14.2 Plt Count 242 Neut % (Auto) 67.8 Lymph % (Auto) 23.2 L Andrew % (Auto) 8.1 Eos % (Auto) 0.1 L Baso % (Auto) 0.8 Neut # (Auto) 6100 Lymph # (Auto) 2100 Andrew # (Auto) 700 Eos # (Auto) 0 Baso # (Auto) 100 Sodium 137 137 Potassium 3.9 3.9 Chloride 103 102 Carbon Dioxide 24 25 BUN 12 12 Creatinine 0.50 L 0.47 L Estimated GFR > 60 > 60 BUN/Creatinine Ratio 24.0 H 25.5 H Glucose 130 H 130 H Calcium 9.6 9.6 Troponin I < 0.012 [facility] Medical History Acetaminophen overdose of undetermined intent (12/2015) Alcoholism 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 Asthma Cubital tunnel syndrome DM type 2 (diabetes mellitus, type 2) DVT (deep venous thrombosis) Essential hypertension Fibromyalgia (03/02/15) Hypoxia Intraoperative cardiac arrest during non-cardiac surgery (11/2013) 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) Morbid obesity Narcotic habituation, continuous Nocturnal hypoxemia Obstipation LYLA (obstructive sleep apnea) Ovarian cyst Plantar fasciitis Psychogenic nonepileptic seizure Pulmonary embolism RBBB (right bundle branch block) Sinus tachycardia Status post laminectomy (12/14/15) Suicide attempt Tobacco abuse Tylenol overdose Urinary retention Surgical History History of carpal tunnel repair (~10/30/14) History of colonoscopy History of esophagogastroduodenoscopy (EGD) History of laminectomy History of laminectomy (~09/2016) History of lumbar spinal fusion (12/22/18) Hx of toe surgery (05/16/20) S/P epidural steroid injection (11/2013) Status post dilation and curettage (2008) Family History Grandfather Diabetes mellitus Family/Other Pancreatic cancer Social History household members: spouse Smoking Status: Former smoker alcohol intake: current eating out: 1-3 times/week Type(s) of exercise: normal ROM and activity and sedentary lifestyle Discharge Assessment & Plan Assessment and Plan Assessment: Postop day # 1 status post laparoscopic supracervical hysterectomy with bilateral salpingectomy, doing very well Plan of Treatment: Discharge to home Follow-up in 2 weeks for postop check Discharge Plan Discharge Plan Patient Disposition: Home Provider Discharge Comment: Call with fever, chills, redness or drainage around the incisions, or bleeding vaginally more than spotting to light Tylenol 650 mg every 4 hours Discharge orders & Medications Discharge Orders: Discharge (Order); Ordered 09/09/22 Ordered By: Judie Babb Prescriptions: New oxycodone 5 mg tablet 5 mg PO Q4H PRN (Reason: pain) Qty: 30 0RF Rx Instructions: 1-2 tabs every 4 hours as needed Continued doxepin 100 mg capsule 200 mg PO BEDTIME Qty: 60 5RF omeprazole 20 mg capsule,delayed release(DR/EC) See Rx Instructions .ROUTE .COMPLEX Qty: 60 11RF Dose Instruction: TAKE 1 CAPSULE BY MOUTH TWICE DAILY. Rx Instructions: TAKE 1 CAPSULE BY MOUTH TWICE DAILY. metformin 500 mg tablet 1,000 mg PO BID Qty: 120 11RF levalbuterol tartrate 45 mcg/actuation HFA aerosol inhaler 1 puff inhalation Q4-6H PRN (Reason: shortness of breath or wheezing) Qty: 15 2RF furosemide 40 mg tablet See Rx Instructions .ROUTE .COMPLEX Qty: 135 5RF Dose Instruction: TAKE 2 AND 1/2 TABLETS BY MOUTH EVERY MORNING AND 2 TABLETS EVERY EVENING FOR A TOTAL OF 180 MG DAILY Patient Comments: 60mg BID Rx Instructions: 60 mg BID cyclobenzaprine 10 mg tablet See Rx Instructions .ROUTE .COMPLEX Qty: 90 1RF Dose Instruction: TAKE 1 TABLET BY MOUTH THREE TIMES DAILY NEEDED FOR MUSCLE SPASM Rx Instructions: TAKE 1 TABLET BY MOUTH THREE TIMES DAILY NEEDED FOR MUSCLE SPASM spironolactone 25 mg tablet See Rx Instructions .ROUTE .COMPLEX Qty: 30 0RF Dose Instruction: TAKE 1/2 TABLET BY MOUTH DAILY Rx Instructions: TAKE 1/2 TABLET BY MOUTH DAILY meclizine 25 mg tablet See Rx Instructions .ROUTE .COMPLEX Qty: 90 5RF Dose Instruction: TAKE 2 TABLETS BY MOUTH DAILY NEEDED FOR DIZZINESS OR VERTIGO Rx Instructions: TAKE up to 3 TABLETS BY MOUTH DAILY FOR DIZZINESS OR VERTIGO magnesium oxide 400 mg (241.3 mg magnesium) tablet 400 mg PO DAILY Qty: 30 0RF pregabalin 300 mg capsule 300 mg PO BID Qty: 180 3RF Rx Instructions: take 1 capsule by mouth twice a day levothyroxine 25 mcg tablet See Rx Instructions .ROUTE .COMPLEX Qty: 90 0RF Dose Instruction: TAKE 1 TABLET BY MOUTH DAILY AT 6 AM Rx Instructions: TAKE 1 TABLET BY MOUTH DAILY AT 6 AM Xarelto 20 mg tablet See Rx Instructions .ROUTE .COMPLEX Qty: 30 0RF Dose Instruction: TAKE 1 TABLET BY MOUTH DAILY WITH THE EVENING MEAL Rx Instructions: TAKE 1 TABLET BY MOUTH DAILY WITH THE EVENING MEAL terazosin 2 mg capsule See Rx Instructions .ROUTE .COMPLEX Qty: 30 2RF Dose Instruction: TAKE 1 CAPSULE BY MOUTH AT BEDTIME Rx Instructions: TAKE 1 CAPSULE BY MOUTH AT BEDTIME metoprolol succinate 25 mg tablet extended release 24 hr 25 mg PO DAILY ascorbic acid (vitamin C) 500 mg tablet 500 mg PO DAILY vitamin B complex Capsule 1 cap PO DAILY potassium gluconate 595 mg (99 mg) tablet 595 mg PO DAILY ketoconazole 2 % shampoo 1 applic TOPICAL DAILY triamcinolone acetonide 0.1 % cream 1 applic TOPICAL BID PRN (Reason: Rash) Rx Instructions: mix 50/50 with Ketoconazole cream and apply to under breast twice daily until resolve. Do not exceed over 2 weeks of use during flare up. clobetasol 0.05 % ointment 1 applic TOPICAL BID PRN (Reason: Rash) Patient Comments: APPLY TOPICALLY TO THE AFFECTED AREA TWICE DAILY fluticasone propion-salmeterol [Wixela Inhub] 100-50 mcg/dose blister with device 1 ea INHALATION BID Patient Comments: INHALE 1 PUFF BY MOUTH TWICE DAILY. RINSE MOUTH WITH WATER AFTER USE. DO NOT SWALLOW Rx Instructions: Rinse mouth with water after each use, do not swallow. ketoconazole 2 % cream 1 applic TOPICAL BID PRN (Reason: Rash) Rx Instructions: apply to affected areas under breast twice daily, do not exceed use over 2 weeks per flare up. Atrovent HFA 17 mcg/actuation HFA aerosol inhaler 2 puff INHALATION Q8H PRN (Reason: Wheezing) Patient Comments: INHALE 1 PUFF BY MOUTH EVERY 8 HOURS aripiprazole 30 mg tablet 30 mg PO BEDTIME Rx Instructions: Take one 30mg tablet by mouth daily Discontinued ferrous sulfate 325 mg (65 mg iron) tablet See Rx Instructions .ROUTE .COMPLEX Qty: 90 0RF Dose Instruction: TAKE 1 TABLET BY MOUTH DAILY Rx Instructions: TAKE 1 TABLET BY MOUTH DAILY diphenoxylate-atropine [Lomotil] 2.5-0.025 mg tablet 2 tab PO QID PRN (Reason: diarrhea) Qty: 60 2RF Cryselle (28) 0.3-30 mg-mcg tablet See Rx Instructions .ROUTE .COMPLEX Qty: 56 0RF Dose Instruction: TAKE 2 ACTIVE TABLETS DAILY FOR 26 DAYS. Rx Instructions: TAKE 2 ACTIVE TABLETS DAILY FOR 26 DAYS. acetaminophen [Tylenol Extra Strength] 500 mg tablet 2,000 mg PO BID No Action (DME) lancets [Easy Touch Twist Lancets] 33 gauge misc See Dose Instructions .ROUTE .MEDSUPPLY Qty: 100 3RF Hold Instructions: Not checking her blood sugar regularly Dose Instruction: As directed Rx Instructions: test qd 90 min after meal (DME) Compressioin Stockings Qty: 1 0RF Hold Instructions: patient is not using them Rx Instructions: As directed (DME) [place] Blood Glucose Test Strips See Rx Instructions .Route .MEDSUPPLY Qty: 180 3RF Hold Instructions: Not checking her BP regularly Rx Instructions: Use to test blood glucose twice daily, fasting a 2hrs post prandial Follow up/Referrals: Judie Babb MD [Physician] - As previously scheduled (Patient postop check already scheduled) Diet/Activity/Treatments Diet: Regular Activity: No heavy lifting Skin/Wound/Dressing Care Report to your healthcare provider any signs of infection, such as:: chills, fever, increased pain, unusual drainage and unusual redness Dressing: Remove outer pink dressings with attached gauze on after morning shower Leave Steri-Strips in place Visit Report/Discharge Packet Instructions: DI for Hysterectomy, DI for Laparoscopy, DI for Prescription Opioid Use, Oxycodone Stand Alone Forms: Patient Portal/API, Surgery Discharge Discharge Data Primary Care Provider: Alejandra Lynch Attending Provider: Judie Babb Quality VTE Deep Vein Thrombosis/Pulmonary Embolism Present on Admission: No
== END 2022-09-09 15:37 | disposition home or self-care (01) ==
LOC: OR 07:23 → AC 07:24
PROVIDERS: Family Provider Family Medicine; PCP Family Medicine; Referring Provider Obstetrics & Gynecology; Visit Provider Obstetrics & Gynecology
PROC: 0UT94ZL Resection of Uterus, Supracervical, Percutaneous Endoscopic Approach (ICD-10-PCS; CPT 58542; principal; 2022-09-08 09:45)
DX: N92.0 Excessive and frequent menstruation with regular cycle (principal); Z20.822 Contact with and (suspected) exposure to COVID-19; D25.9 Leiomyoma of uterus, unspecified; N83.8 Other noninflammatory disorders of ovary, fallopian tube and broad ligament
CPT/HCPCS: 58542; 36415; 80048; 82962; 84484; 85025; 87635; 93005; 93010; 94640; C9803; J0171; J0330; J0690; J1100; J1170; J1885; J2270; J2405; J2704; J2795; J3010; J7613

== ENCOUNTER 2022-09-19 18:47 | Emergency (ER) | payer OTHER, MEDICARE, SELFPAY ==
[2022-09-08 07:50] VITALS: BMI 47.4
[2022-09-19 19:35] VITALS: BP 143/93; PULSE 124; RESP 20; TEMP 37.1; O2SAT 96; BMI 46.5
--- NOTE | 2022-09-19 19:42 | DI.RAD.S_ITS ---
PROCEDURE: XR CHEST 1V INDICATIONS: chest pain TECHNIQUE: One view of the chest was acquired. COMPARISON: [facility], CR, XR CHEST 1V, 07/18/2022, 17:47. FINDINGS: Surgical changes and devices: None. Lungs and pleura: Lungs are clear. No pleural effusions or pneumothorax. Mediastinum: Mediastinal contours appear normal. Heart size is normal. Bones and chest wall: No suspicious bony lesions. Overlying soft tissues appear unremarkable. IMPRESSION: 1. No acute cardiopulmonary disease. Dictated by: Gustavo Tracey M.D. on 09/19/2022 at 21:54 Approved by: Gustavo Tracey M.D. on 09/19/2022 at 21:54
[2022-09-19 20:57] LABS: Add Manual Diff / Slide Review NO; Basophils Absolute Auto 100 /uL (0-100); Basophils Percent Auto 0.9 % (0-2); Eosinophils Absolute Auto 200 /uL (0-450); Hematocrit 39.9 % (36-46); Hemoglobin 13.3 g/dL (12.0-16.0); Lymphocytes Absolute Auto 2000 /uL (1100-4500); Lymphocytes Percent Auto 30.9 % (25-40); Mean Corpuscular HGB Conc 33.3 % (30-36); Mean Corpuscular Hemoglobin 28.1 PG (26-34); Mean Corpuscular Volume 84.6 fL (80-100); Monocytes Absolute Auto 500 /uL (0-900); Monocytes Percent Auto 8.4 % (3-14); Neutrophils Absolute Auto 3700 /uL (1500-7000); Neutrophils Percent Auto 56.8 % (50-75); Platelet Count 232 X10^3/uL (150-400); Red Blood Cell Count 4.72 X10^6/uL (4.0-5.2); Red Cell Distribution Width 13.6 % (11.6-14.8); White Blood Cell Count 6.4 X10^3/uL (4.5-11.0)
[2022-09-19 21:07] LABS: INR 0.9 (0.9-1.3); Prothrombin Time 10.8 SECONDS (10.1-12.7)
[2022-09-19 21:10] LABS: PTT Partial Thromboplastin Tim 32 SECONDS (26-36)
[2022-09-19 21:22] LABS: Alanine Aminotransferase 53 IU/L (<35); Albumin 4.4 g/dL (3.5-5.0); Albumin Globulin Ratio 1.3 (1.0-2.8); Alkaline Phosphatase 63 U/L (38-126); Aspartate Aminotransferase 49 IU/L (14-36); Bilirubin Total 0.3 mg/dL (0.2-1.3); Blood Urea Nitrogen 11 mg/dL (7-17); Calcium 9.7 mg/dL (8.4-10.2); Carbon Dioxide 28 mmol/L (22-32); Chloride 96 mmol/L (98-107); Creatine Kinase 42 U/L (30-135); Estimated Glomerular Filt Rate > 60 mL/min (>60); Globulin 3.5 g/dL (1.7-4.1); Glucose 147 mg/dL (70-100); HEMOLYSIS < 15 (0-50); Lipase 75 U/L (23-300); Magnesium 1.9 mg/dL (1.6-2.3); Potassium 3.9 mmol/L (3.4-5.1); Sodium 136 mmol/L (137-145); Total Protein 7.9 g/dL (6.3-8.2)
[2022-09-19 21:34] LABS: Troponin I < 0.012 ng/mL (0.01-0.034)
[2022-09-19 22:45] VITALS: BP 142/88; PULSE 120; RESP 20; O2SAT 95
[2022-09-19 22:51] VITALS: PULSE 120; O2SAT 95
[2022-09-19 23:00] VITALS: PULSE 118; O2SAT 95
[2022-09-19 23:26] LABS: Troponin I < 0.012 ng/mL (0.01-0.034)
[2022-09-19 23:30] VITALS: PULSE 117; O2SAT 95
[2022-09-20] VITALS: PULSE 122; RESP 18; O2SAT 97
[2022-09-20 00:30] VITALS: PULSE 116; RESP 19; O2SAT 96
[2022-09-20 01:00] VITALS: PULSE 116; O2SAT 95
--- NOTE | 2022-09-20 01:06 | ED.CHESTPAIN ---
HPI - Chest Pain General Chief Complaint: Chest Pain Stated Complaint: post surg T-9: chest pain Time Seen by Provider: 09/20/22 00:49 Source: patient Mode of arrival: Wheelchair Limitations: no limitations History of Present Illness HPI narrative: Patient is a 41-year-old female history of DVT PE on Xarelto, GERD fibromyalgia else smell hypertension presents today with chest pain. She had hysterectomy done a couple of weeks ago she is been fairly sedentary. With the hysterectomy she had a come off anticoagulation briefly she stayed overnight in the hospital. Today she is have hearing chest pain which she describes as heaviness nonradiating. Mild shortness of breath. She also feels like her legs are swollen and the not swollen. Difficult to tell. She denies any fever. She also suffers from vertigo and gets around by a walker. Patient reports that she is persistently tachycardic on metoprolol for it. Related Data Home Medications Medication Instructions Recorded Confirmed clobetasol 0.05 % topical ointment 1 applic topical BID PRN Rash 07/16/22 09/04/22 fluticasone 100 mcg-salmeterol 50 1 ea inhalation BID 07/16/22 09/08/22 mcg/dose blistr powdr for inhalation (Wixela Inhub) ketoconazole 2 % shampoo 1 applic topical DAILY 07/16/22 08/26/22 ketoconazole 2 % topical cream 1 applic topical BID PRN Rash 07/16/22 08/26/22 triamcinolone acetonide 0.1 % 1 applic topical BID PRN Rash 07/16/22 09/04/22 topical cream ascorbic acid (vitamin C) 500 mg 500 mg PO DAILY 07/28/22 09/04/22 tablet metoprolol succinate 25 mg 25 mg PO DAILY 07/28/22 09/08/22 tablet,extended release 24 hr potassium gluconate 595 mg (99 mg) 595 mg PO DAILY 07/28/22 09/08/22 tablet vitamin B complex 1 cap PO DAILY 07/28/22 09/04/22 aripiprazole 30 mg tablet 30 mg PO BEDTIME 08/26/22 09/08/22 ipratropium bromide 17 2 puff inhalation Q8H PRN Wheezing 08/26/22 09/08/22 mcg/actuation HFA aerosol inhaler (Atrovent HFA) Previous Rx's Medication Instructions Recorded lancets 33 gauge (Easy Touch Twist #100 ea 12/08/18 Lancets) Compressioin Stockings #1 ea 10/13/19 [facility] Blood Glucose Test Strips #180 ea 08/10/20 omeprazole 20 mg capsule,delayed See Rx Instructions .Route 10/07/21 release .COMPLEX #60 caps metformin 500 mg tablet 1,000 mg PO BID #120 tabs 10/24/21 doxepin 100 mg capsule 200 mg PO BEDTIME #60 caps 12/31/21 levalbuterol tartrate 45 1 puff inhalation Q4-6H PRN 01/22/22 mcg/actuation aerosol inhaler shortness of breath or wheezing #15 grams furosemide 40 mg tablet See Rx Instructions .Route 05/20/22 .COMPLEX #135 tabs cyclobenzaprine 10 mg tablet See Rx Instructions .Route 06/11/22 .COMPLEX #90 tabs spironolactone 25 mg tablet See Rx Instructions .Route 06/27/22 .COMPLEX #30 tabs meclizine 25 mg tablet See Rx Instructions .Route 07/14/22 .COMPLEX #90 tabs magnesium oxide 400 mg (241.3 mg 400 mg PO DAILY #30 tabs 07/18/22 magnesium) tablet pregabalin 300 mg capsule 300 mg PO BID #180 caps 08/04/22 levothyroxine 25 mcg tablet See Rx Instructions .Route 08/18/22 .COMPLEX #90 tabs rivaroxaban 20 mg tablet (Xarelto) See Rx Instructions .Route 08/25/22 .COMPLEX #30 tabs terazosin 2 mg capsule See Rx Instructions .Route 08/29/22 .COMPLEX #30 caps oxycodone 5 mg tablet 5 mg PO Q4H PRN pain #30 tabs 09/11/22 Allergies Allergy/AdvReac Type Severity Reaction Status Date / Time carisoprodol [CARISOPRODOL] AdvReac Severe urinary Verified 09/19/22 19:42 retention fosphenytoin AdvReac Severe Seizures Verified 09/19/22 19:42 Latex, Natural Rubber AdvReac Mild Rash Verified 09/19/22 19:42 Review of Systems Review of Systems ROS Unobtainable: All systems reviewed & are unremarkable except as noted in HPI and below Patient History Medical History Acetaminophen overdose of undetermined intent (12/2015) Alcoholism 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 Asthma Cubital tunnel syndrome DM type 2 (diabetes mellitus, type 2) DVT (deep venous thrombosis) Essential hypertension Fibromyalgia (03/02/15) Hypoxia Intraoperative cardiac arrest during non-cardiac surgery (11/2013) 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) Morbid obesity Narcotic habituation, continuous Nocturnal hypoxemia Obstipation LYLA (obstructive sleep apnea) Ovarian cyst Plantar fasciitis Psychogenic nonepileptic seizure Pulmonary embolism RBBB (right bundle branch block) Sinus tachycardia Status post laminectomy (12/14/15) Suicide attempt Tobacco abuse Tylenol overdose Urinary retention Surgical History History of carpal tunnel repair (~10/30/14) History of colonoscopy History of esophagogastroduodenoscopy (EGD) History of laminectomy History of laminectomy (~09/2016) History of lumbar spinal fusion (12/22/18) Hx of toe surgery (05/16/20) S/P epidural steroid injection (11/2013) Status post dilation and curettage (2008) Family History Grandfather Diabetes mellitus Family/Other Pancreatic cancer Social History household members: spouse Smoking Status: Former smoker alcohol intake: current eating out: 1-3 times/week Type(s) of exercise: normal ROM and activity and sedentary lifestyle Smoking Status: Former smoker tobacco type: cigarettes alcohol intake frequency: a few times a week Substance Use Type: does not use Exam Initial Vital Signs Initial Vital Signs: Vital Signs Temperature 98.7 F 09/19/22 19:35 Pulse Rate 124 H 09/19/22 19:35 Respiratory Rate 20 09/19/22 19:35 Blood Pressure 143/93 H 09/19/22 19:35 Pulse Oximetry 96 09/19/22 19:35 Oxygen Delivery Method Room Air 09/19/22 19:35 GENERAL: Alert 41-year-old female appears slightly disheveled BMI 46 and in no acute distress. HEENT: Head atraumatic,EOMI, pupils reactive, face symmetric, moist mucous membranes CARDIOVASCULAR: Tachycardia regular no murmur RESPIRATORY: Breath sounds equal bilaterally, no wheezes rales or rhonchi. ABDOMEN: Soft, nontender. Normoactive bowel sounds all 4 quadrants. No guarding or rebound. EXTREMITIES: Normal range of motion, no clubbing or edema. Neurovascularly intact NEUROLOGICAL: Alert and oriented x4. SKIN: Warm, dry, no laceration, no petechiae, no rashes or lesions. Course Orders Ordered: ED Orders 09/19/22 22:36 EKG-12 Lead Stat 09/19/22 22:50 Trop I [Troponin I] Stat 09/20/22 01:13 CT angio chest PE protocol Stat 09/20/22 01:20 BNP [NT-proBNP (BNP-Adult 18+)] Stat Discontinued Medications Acetaminophen (Acetaminophen 325 Mg Tablet) 975 mg PO NOW ONE Stop: 09/20/22 02:24 Last Admin: 09/20/22 02:29 Dose: 975 mg Documented By: TJ Aspirin (Aspirin 81 Mg Chew Tab) 324 mg PO NOW ONE Stop: 09/19/22 19:43 Vital Signs Vital signs: Vital Signs - 8 hr 09/19/22 23:30 09/20/22 00:00 09/20/22 00:30 Pulse Rate 117 H 122 H 116 H Respiratory Rate 18 19 Blood Pressure Pulse Oximetry 95 97 96 Oxygen Delivery Method Room Air 09/20/22 01:00 09/20/22 02:30 Pulse Rate 116 H 110 H Respiratory Rate 18 Blood Pressure 132/75 Pulse Oximetry 95 98 Oxygen Delivery Method Room Air MDM - Chest Pain Lab Data 09/19/22 20:42 09/19/22 20:42 Labs: Lab Results 09/19/22 09/19/22 09/19/22 Range/Units 20:42 20:42 20:42 WBC 6.4 (4.5-11.0) X10^3/uL RBC 4.72 (4.0-5.2) X10^6/uL Hgb 13.3 (12.0-16.0) g/dL Hct 39.9 (36-46) % MCV 84.6 (80-100) fL MCH 28.1 (26-34) PG MCHC 33.3 (30-36) % RDW 13.6 (11.6-14.8) % Plt Count 232 (150-400) X10^3/uL Neut % (Auto) 56.8 (50-75) % Lymph % (Auto) 30.9 (25-40) % Andrews % (Auto) 8.4 (3-14) % Eos % (Auto) 3.0 (2-4) % Baso % (Auto) 0.9 (0-2) % Neut # (Auto) 3700 (1959-7958) /uL Lymph # (Auto) 2000 (0192-8141) /uL Andrews # (Auto) 500 (0-900) /uL Eos # (Auto) 200 (0-450) /uL Baso # (Auto) 100 (0-100) /uL PT 10.8 (10.1-12.7) SECONDS INR 0.9 (0.9-1.3) APTT 32 (26-36) SECONDS Sodium 136 L (137-145) mmol/L Potassium 3.9 (3.4-5.1) mmol/L Chloride 96 L (98-107) mmol/L Carbon Dioxide 28 (22-32) mmol/L BUN 11 (7-17) mg/dL Creatinine 0.44 L (0.52-1.04) mg/dL Estimated GFR > 60 (>60) mL/min BUN/Creatinine Ratio 25.0 H (6-22) Glucose 147 H (70-100) mg/dL Calcium 9.7 (8.4-10.2) mg/dL Magnesium 1.9 (1.6-2.3) mg/dL Total Bilirubin 0.3 (0.2-1.3) mg/dL AST 49 H (14-36) IU/L ALT 53 H (<35) IU/L Alkaline Phosphatase 63 (38-126) U/L Total Creatine Kinase 42 (30-135) U/L CK-MB (CK-2) TNP CK-MB (CK-2) Rel Index TNP Troponin I < 0.012 (0.01-0.034) ng/mL NT-Pro-B Natriuret Pep (<125) pg/mL Total Protein 7.9 (6.3-8.2) g/dL Albumin 4.4 (3.5-5.0) g/dL Globulin 3.5 (1.7-4.1) g/dL Albumin/Globulin Ratio 1.3 (1.0-2.8) Lipase 75 (23-300) U/L 09/19/22 09/19/22 Range/Units 20:42 22:50 WBC (4.5-11.0) X10^3/uL RBC (4.0-5.2) X10^6/uL Hgb (12.0-16.0) g/dL Hct (36-46) % MCV (80-100) fL MCH (26-34) PG MCHC (30-36) % RDW (11.6-14.8) % Plt Count (150-400) X10^3/uL Neut % (Auto) (50-75) % Lymph % (Auto) (25-40) % Andrews % (Auto) (3-14) % Eos % (Auto) (2-4) % Baso % (Auto) (0-2) % Neut # (Auto) (9068-5380) /uL Lymph # (Auto) (9756-2328) /uL Andrews # (Auto) (0-900) /uL Eos # (Auto) (0-450) /uL Baso # (Auto) (0-100) /uL PT (10.1-12.7) SECONDS INR (0.9-1.3) APTT (26-36) SECONDS Sodium (137-145) mmol/L Potassium (3.4-5.1) mmol/L Chloride (98-107) mmol/L Carbon Dioxide (22-32) mmol/L BUN (7-17) mg/dL Creatinine (0.52-1.04) mg/dL Estimated GFR (>60) mL/min BUN/Creatinine Ratio (6-22) Glucose (70-100) mg/dL Calcium (8.4-10.2) mg/dL Magnesium (1.6-2.3) mg/dL Total Bilirubin (0.2-1.3) mg/dL AST (14-36) IU/L ALT (<35) IU/L Alkaline Phosphatase (38-126) U/L Total Creatine Kinase (30-135) U/L CK-MB (CK-2) CK-MB (CK-2) Rel Index Troponin I < 0.012 (0.01-0.034) ng/mL NT-Pro-B Natriuret Pep 40 (<125) pg/mL Total Protein (6.3-8.2) g/dL Albumin (3.5-5.0) g/dL Globulin (1.7-4.1) g/dL Albumin/Globulin Ratio (1.0-2.8) Lipase (23-300) U/L Imaging Data Chest x-ray: Radiologist's Impression: PROCEDURE:? XR CHEST 1V ? INDICATIONS:? chest pain ? TECHNIQUE:? One view of the chest was acquired.? ? COMPARISON:? [facility], CR, XR CHEST 1V, 07/18/2022, 17:47. ? FINDINGS:? ? Surgical changes and devices:? None.? ? Lungs and pleura:? Lungs are clear.? No pleural effusions or pneumothorax.? ? Mediastinum:? Mediastinal contours appear normal.? Heart size is normal.? ? Bones and chest wall:? No suspicious bony lesions.? Overlying soft tissues appear unremarkable.? ? IMPRESSION:? ? 1.? No acute cardiopulmonary disease. ? ? ? Dictated by: Gustavo Tracey M.D. on 09/19/2022 at 21:54 ? ? CT scan - chest: Radiologist's Impression: PROCEDURE:? CT ANGIO CHEST PE PROTOCOL ? INDICATIONS:? chest pain hx of pe with recent surgery ? TECHNIQUE:? After the administration of intravenous contrast, 2 mm thick sections acquired from the pulmonary apices to the posterior costophrenic angles.? 3-dimensional maximum intensity projection (MIP) coronal and sagittal reformats were then acquired through the thorax.? For radiation dose reduction, the following was used:? automated exposure control, adjustment of mA and/or kV according to patient size.? ? COMPARISON:? [facility], CT, CT ANGIO CHEST, 07/25/2022, 13:36. ? FINDINGS:? Image quality:? Excellent.? ? Pulmonary arteries:? Pulmonary arteries are normal in size, and demonstrate no intraluminal filling defects to suggest central pulmonary embolism.? ? Lower Neck: No lymphadenopathy by size criteria. Thyroid:? Visualized thyroid demonstrates no discrete nodules. Axillae: No lymphadenopathy by size criteria. Chest Wall:? Unremarkable.? Bones: Visualized osseous structures demonstrate no suspicious lesions. ? Lungs and Airways:? No acute consolidation.? There is mild linear atelectasis or scarring within the right middle lobe.? No suspicious pulmonary nodules. The trachea and central airways are patent. Pleura: No pneumothorax or pleural effusions.? ? Heart: Heart size is normal.? No pericardial effusion. Thoracic Vessels: The thoracic aorta is normal in size.? Mediastinum and Kristine: No lymphadenopathy by size criteria. Esophagus: No wall thickening. No hiatal hernia. ? Abdomen:? Visualized upper abdominal solid organs appear normal in the early arterial phase of enhancement.? ? IMPRESSION:? ? 1. No evidence of pulmonary embolism. ? 2. No acute airspace consolidation.? ? ? Dictated by: Gustavo Tracey M.D. on 09/20/2022 at 2:03? ECG Data Interpretation: Sinus tachycardia rate 121, SD interval 134 QRS [address] changes right bundle-branch block noted similar to previous EKGs EKG 2. Rate 121 similar to previous no changes MDM Narrative Medical decision making narrative: Patient has a history of pulmonary embolisms and DVTs was on Xarelto but briefly stop secondary to surgery she is also been very sedentary. She is persistently tachycardic. With chest discomfort 2- troponins. Electrolytes are stable no OWJCIECH no significant leukocytosis or anemia. She is been having some lower extremity edema which resolves BNP is 40. Do not suspect congestive heart failure though possible. CT angio was done with history of DVT and pulmonary embolism and brief lapse in Xarelto. CT angio was negative for PE. Unclear what is causing her pain. Low suspicion for acute coronary syndrome., multiple comorbidities. Pain is doing better. At this time recommend outpatient follow-up. Discharge Plan Departure Patient Disposition: Home Clinical Impression: Atypical chest pain Instructions: DI for Atypical Chest Pain Activity Restrictions/Additional Instructions: *You have been diagnosed with atypical chest pain *What to do: At this time you do not have a blood clot in your lungs please follow-up with primary care provider he may require further testing for your heart such as echo or stress test *Continue to take medications as directed *Follow up with your primary care provider in 2-3 days or call [phone] *Return to ER if you should have increasing chest pain shortness of breath fever or any new, worsening or concerning symptoms Prescriptions: No Action (DME) lancets [Easy Touch Twist Lancets] 33 gauge misc See Dose Instructions .ROUTE .MEDSUPPLY Qty: 100 3RF Hold Instructions: Not checking her blood sugar regularly Dose Instruction: As directed Rx Instructions: test qd 90 min after meal doxepin 100 mg capsule 200 mg PO BEDTIME Qty: 60 5RF (DME) Compressioin Stockings Qty: 1 0RF Hold Instructions: patient is not using them Rx Instructions: As directed (DME) [facility] Blood Glucose Test Strips See Rx Instructions .Route .MEDSUPPLY Qty: 180 3RF Hold Instructions: Not checking her BP regularly Rx Instructions: Use to test blood glucose twice daily, fasting a 2hrs post prandial omeprazole 20 mg capsule,delayed release(DR/EC) See Rx Instructions .ROUTE .COMPLEX Qty: 60 11RF Dose Instruction: TAKE 1 CAPSULE BY MOUTH TWICE DAILY. Rx Instructions: TAKE 1 CAPSULE BY MOUTH TWICE DAILY. metformin 500 mg tablet 1,000 mg PO BID Qty: 120 11RF levalbuterol tartrate 45 mcg/actuation HFA aerosol inhaler 1 puff inhalation Q4-6H PRN (Reason: shortness of breath or wheezing) Qty: 15 2RF furosemide 40 mg tablet See Rx Instructions .ROUTE .COMPLEX Qty: 135 5RF Dose Instruction: TAKE 2 AND 1/2 TABLETS BY MOUTH EVERY MORNING AND 2 TABLETS EVERY EVENING FOR A TOTAL OF 180 MG DAILY Patient Comments: 60mg BID Rx Instructions: 60 mg BID cyclobenzaprine 10 mg tablet See Rx Instructions .ROUTE .COMPLEX Qty: 90 1RF Dose Instruction: TAKE 1 TABLET BY MOUTH THREE TIMES DAILY NEEDED FOR MUSCLE SPASM Rx Instructions: TAKE 1 TABLET BY MOUTH THREE TIMES DAILY NEEDED FOR MUSCLE SPASM spironolactone 25 mg tablet See Rx Instructions .ROUTE .COMPLEX Qty: 30 0RF Dose Instruction: TAKE 1/2 TABLET BY MOUTH DAILY Rx Instructions: TAKE 1/2 TABLET BY MOUTH DAILY meclizine 25 mg tablet See Rx Instructions .ROUTE .COMPLEX Qty: 90 5RF Dose Instruction: TAKE 2 TABLETS BY MOUTH DAILY NEEDED FOR DIZZINESS OR VERTIGO Rx Instructions: TAKE up to 3 TABLETS BY MOUTH DAILY FOR DIZZINESS OR VERTIGO magnesium oxide 400 mg (241.3 mg magnesium) tablet 400 mg PO DAILY Qty: 30 0RF pregabalin 300 mg capsule 300 mg PO BID Qty: 180 3RF Rx Instructions: take 1 capsule by mouth twice a day levothyroxine 25 mcg tablet See Rx Instructions .ROUTE .COMPLEX Qty: 90 0RF Dose Instruction: TAKE 1 TABLET BY MOUTH DAILY AT 6 AM Rx Instructions: TAKE 1 TABLET BY MOUTH DAILY AT 6 AM Xarelto 20 mg tablet See Rx Instructions .ROUTE .COMPLEX Qty: 30 0RF Dose Instruction: TAKE 1 TABLET BY MOUTH DAILY WITH THE EVENING MEAL Rx Instructions: TAKE 1 TABLET BY MOUTH DAILY WITH THE EVENING MEAL terazosin 2 mg capsule See Rx Instructions .ROUTE .COMPLEX Qty: 30 2RF Dose Instruction: TAKE 1 CAPSULE BY MOUTH AT BEDTIME Rx Instructions: TAKE 1 CAPSULE BY MOUTH AT BEDTIME oxycodone 5 mg tablet 5 mg PO Q4H PRN (Reason: pain) Qty: 30 0RF Rx Instructions: 1-2 tabs every 4 hours as needed metoprolol succinate 25 mg tablet extended release 24 hr 25 mg PO DAILY ascorbic acid (vitamin C) 500 mg tablet 500 mg PO DAILY vitamin B complex Capsule 1 cap PO DAILY potassium gluconate 595 mg (99 mg) tablet 595 mg PO DAILY ketoconazole 2 % shampoo 1 applic TOPICAL DAILY triamcinolone acetonide 0.1 % cream 1 applic TOPICAL BID PRN (Reason: Rash) Rx Instructions: mix 50/50 with Ketoconazole cream and apply to under breast twice daily until resolve. Do not exceed over 2 weeks of use during flare up. clobetasol 0.05 % ointment 1 applic TOPICAL BID PRN (Reason: Rash) Patient Comments: APPLY TOPICALLY TO THE AFFECTED AREA TWICE DAILY fluticasone propion-salmeterol [Wixela Inhub] 100-50 mcg/dose blister with device 1 ea INHALATION BID Patient Comments: INHALE 1 PUFF BY MOUTH TWICE DAILY. RINSE MOUTH WITH WATER AFTER USE. DO NOT SWALLOW Rx Instructions: Rinse mouth with water after each use, do not swallow. ketoconazole 2 % cream 1 applic TOPICAL BID PRN (Reason: Rash) Rx Instructions: apply to affected areas under breast twice daily, do not exceed use over 2 weeks per flare up. Atrovent HFA 17 mcg/actuation HFA aerosol inhaler 2 puff INHALATION Q8H PRN (Reason: Wheezing) Patient Comments: INHALE 1 PUFF BY MOUTH EVERY 8 HOURS aripiprazole 30 mg tablet 30 mg PO BEDTIME Rx Instructions: Take one 30mg tablet by mouth daily Referrals: Alejandra Lynch MD [Primary Care Provider] - Stand Alone Forms: Patient Portal/API
--- NOTE | 2022-09-20 01:13 | DI.CT.S_ITS ---
PROCEDURE: CT ANGIO CHEST PE PROTOCOL INDICATIONS: chest pain hx of pe with recent surgery TECHNIQUE: After the administration of intravenous contrast, 2 mm thick sections acquired from the pulmonary apices to the posterior costophrenic angles. 3-dimensional maximum intensity projection (MIP) coronal and sagittal reformats were then acquired through the thorax. For radiation dose reduction, the following was used: automated exposure control, adjustment of mA and/or kV according to patient size. COMPARISON: [facility], CT, CT ANGIO CHEST, 07/25/2022, 13:36. FINDINGS: Image quality: Excellent. Pulmonary arteries: Pulmonary arteries are normal in size, and demonstrate no intraluminal filling defects to suggest central pulmonary embolism. Lower Neck: No lymphadenopathy by size criteria. Thyroid: Visualized thyroid demonstrates no discrete nodules. Axillae: No lymphadenopathy by size criteria. Chest Wall: Unremarkable. Bones: Visualized osseous structures demonstrate no suspicious lesions. Lungs and Airways: No acute consolidation. There is mild linear atelectasis or scarring within the right middle lobe. No suspicious pulmonary nodules. The trachea and central airways are patent. Pleura: No pneumothorax or pleural effusions. Heart: Heart size is normal. No pericardial effusion. Thoracic Vessels: The thoracic aorta is normal in size. Mediastinum and Kristine: No lymphadenopathy by size criteria. Esophagus: No wall thickening. No hiatal hernia. Abdomen: Visualized upper abdominal solid organs appear normal in the early arterial phase of enhancement. IMPRESSION: 1. No evidence of pulmonary embolism. 2. No acute airspace consolidation. Dictated by: Gustavo Tracey M.D. on 09/20/2022 at 2:03 Approved by: Gustavo Tracey M.D. on 09/20/2022 at 2:05
[2022-09-20 01:51] LABS: NT-proBNP (BNP-Adult 18+) 40 pg/mL (<125)
[2022-09-20] MEDS: ACETAMINOPHEN 325 MG TABLET 975 MG PO (02:29)
[2022-09-20 02:30] VITALS: BP 132/75; PULSE 110; RESP 18; O2SAT 98
== END 2022-09-20 02:35 | disposition home or self-care (01) ==
PROVIDERS: Emergency Medicine; Emergency Provider Emergency Medicine; Family Provider Family Medicine; PCP Family Medicine
DX: R07.89 Other chest pain (principal); R00.0 Tachycardia, unspecified
CPT/HCPCS: 36415; 71045; 71275; 80053; 82550; 83690; 83735; 83880; 84484; 85025; 85610; 85730; 93005; 93010; 99284; Q9967

== ENCOUNTER 2022-09-26 15:01 | Emergency (ER) | payer OTHER, MEDICARE, SELFPAY ==
[2022-09-08 07:50] VITALS: BMI 47.4
[2022-09-26 15:06] VITALS: BP 141/81; PULSE 128; RESP 18; TEMP 36.8; O2SAT 94; BMI 47.4
--- NOTE | 2022-09-26 15:13 | DI.RAD.S_ITS ---
PROCEDURE: XR CHEST 1V INDICATIONS: chest pain TECHNIQUE: One view of the chest was acquired. COMPARISON: [facility], CR, XR CHEST 1V, 09/19/2022, 20:37. FINDINGS: Surgical changes and devices: None. Lungs and pleura: Lungs are clear. No pleural effusions or pneumothorax. Mediastinum: Mediastinal contours appear normal. Heart size is normal. Bones and chest wall: No suspicious bony lesions. Overlying soft tissues appear unremarkable. IMPRESSION: No acute cardiopulmonary process. Dictated by: Lambert King M.D. on 09/26/2022 at 15:40 Approved by: Lambert King M.D. on 09/26/2022 at 15:41
[2022-09-26 15:42] VITALS: PULSE 127; O2SAT 96
[2022-09-26 15:45] VITALS: PULSE 128; RESP 22; O2SAT 97
[2022-09-26 15:45] LABS: Add Manual Diff / Slide Review NO; Basophils Absolute Auto 0 /uL (0-100); Basophils Percent Auto 0.7 % (0-2); Eosinophils Absolute Auto 400 /uL (0-450); Eosinophils Percent Auto 6.6 % (2-4); Hematocrit 41.1 % (36-46); Hemoglobin 13.9 g/dL (12.0-16.0); Lymphocytes Absolute Auto 1900 /uL (1100-4500); Lymphocytes Percent Auto 33.9 % (25-40); Mean Corpuscular HGB Conc 33.9 % (30-36); Mean Corpuscular Hemoglobin 28.3 PG (26-34); Mean Corpuscular Volume 83.4 fL (80-100); Monocytes Absolute Auto 600 /uL (0-900); Monocytes Percent Auto 10.8 % (3-14); Neutrophils Absolute Auto 2700 /uL (1500-7000); Platelet Count 223 X10^3/uL (150-400); Red Blood Cell Count 4.92 X10^6/uL (4.0-5.2); Red Cell Distribution Width 13.4 % (11.6-14.8); White Blood Cell Count 5.7 X10^3/uL (4.5-11.0)
--- NOTE | 2022-09-26 15:51 | ED.GENADULT ---
HPI - General Adult General Chief complaint: Shortness of Breath/Dyspnea Stated complaint: Poss blood clot Time Seen by Provider: 09/26/22 15:15 Source: patient Mode of arrival: Wheelchair History of Present Illness HPI narrative: Patient is a 41-year-old female. Has had a history of pulmonary emboli. She is being followed by primary doctor. She is on anticoagulation. Several weeks ago she did undergo a surgery where she came off the blood thinners for short period of time. Afterwards she developed chest pain and shortness of breath. She was seen here in the emergency department. Had an extensive workup to include a CTA of her chest. There was no pulmonary emboli. She is back on her anticoagulation. She is followed up with her primary doctor since that last ED visit. There was discussion about her lower extremity swelling being because of retained fluid. She is on Lasix. She is been on Lasix. She states that the swelling does go up and down throughout the day. There was discussion with her primary doctor about following up with cardiology. She contacted the cardiology office to schedule follow-up and was advised to come to the emergency department. States she is having some shortness of breath and chest discomfort which maybe slightly worse than what it was a couple days ago. She also has lower extremity swelling. No fevers. She is taking all of her medications as directed. Related Data Home Medications Medication Instructions Recorded Confirmed clobetasol 0.05 % topical ointment 1 applic topical BID PRN Rash 07/16/22 09/04/22 fluticasone 100 mcg-salmeterol 50 1 ea inhalation BID 07/16/22 09/08/22 mcg/dose blistr powdr for inhalation (Wixela Inhub) ketoconazole 2 % shampoo 1 applic topical DAILY 07/16/22 08/26/22 ketoconazole 2 % topical cream 1 applic topical BID PRN Rash 07/16/22 08/26/22 triamcinolone acetonide 0.1 % 1 applic topical BID PRN Rash 07/16/22 09/04/22 topical cream ascorbic acid (vitamin C) 500 mg 500 mg PO DAILY 07/28/22 09/04/22 tablet potassium gluconate 595 mg (99 mg) 595 mg PO DAILY 07/28/22 09/08/22 tablet vitamin B complex 1 cap PO DAILY 07/28/22 09/04/22 aripiprazole 30 mg tablet 30 mg PO BEDTIME 08/26/22 09/08/22 ipratropium bromide 17 2 puff inhalation Q8H PRN Wheezing 08/26/22 09/08/22 mcg/actuation HFA aerosol inhaler (Atrovent HFA) metoprolol succinate 25 mg See Rx Instructions PO DAILY 09/24/22 09/24/22 tablet,extended release 24 hr Previous Rx's Medication Instructions Recorded lancets 33 gauge (Easy Touch Twist #100 ea 12/08/18 Lancets) Compressioin Stockings #1 ea 10/13/19 [facility] Blood Glucose Test Strips #180 ea 08/10/20 metformin 500 mg tablet 1,000 mg PO BID #120 tabs 10/24/21 doxepin 100 mg capsule 200 mg PO BEDTIME #60 caps 12/31/21 levalbuterol tartrate 45 1 puff inhalation Q4-6H PRN 01/22/22 mcg/actuation aerosol inhaler shortness of breath or wheezing #15 grams furosemide 40 mg tablet See Rx Instructions .Route 05/20/22 .COMPLEX #135 tabs cyclobenzaprine 10 mg tablet See Rx Instructions .Route 06/11/22 .COMPLEX #90 tabs spironolactone 25 mg tablet See Rx Instructions .Route 06/27/22 .COMPLEX #30 tabs meclizine 25 mg tablet See Rx Instructions .Route 07/14/22 .COMPLEX #90 tabs magnesium oxide 400 mg (241.3 mg 400 mg PO DAILY #30 tabs 07/18/22 magnesium) tablet pregabalin 300 mg capsule 300 mg PO BID #180 caps 08/04/22 levothyroxine 25 mcg tablet See Rx Instructions .Route 08/18/22 .COMPLEX #90 tabs terazosin 2 mg capsule See Rx Instructions .Route 08/29/22 .COMPLEX #30 caps oxycodone 5 mg tablet 5 mg PO Q4H PRN pain #30 tabs 09/11/22 rivaroxaban 20 mg tablet (Xarelto) See Rx Instructions .Route 09/22/22 .COMPLEX #30 tabs omeprazole 20 mg capsule,delayed See Rx Instructions .Route 09/24/22 release .COMPLEX #60 caps Allergies Allergy/AdvReac Type Severity Reaction Status Date / Time carisoprodol [CARISOPRODOL] AdvReac Severe urinary Verified 09/24/22 13:39 retention fosphenytoin AdvReac Severe Seizures Verified 09/24/22 13:39 Latex, Natural Rubber AdvReac Mild Rash Verified 09/24/22 13:39 Review of Systems Review of Systems ROS Unobtainable: All systems reviewed & are unremarkable except as noted in HPI and below Patient History Medical History Acetaminophen overdose of undetermined intent (12/2015) Alcoholism 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 Asthma Cubital tunnel syndrome DM type 2 (diabetes mellitus, type 2) DVT (deep venous thrombosis) Essential hypertension Fibromyalgia (03/02/15) Hypoxia Intraoperative cardiac arrest during non-cardiac surgery (11/2013) 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) Morbid obesity Narcotic habituation, continuous Nocturnal hypoxemia Obstipation LYLA (obstructive sleep apnea) Ovarian cyst Plantar fasciitis Psychogenic nonepileptic seizure Pulmonary embolism RBBB (right bundle branch block) Sinus tachycardia Status post laminectomy (12/14/15) Suicide attempt Tobacco abuse Tylenol overdose Urinary retention Surgical History History of carpal tunnel repair (~10/30/14) History of colonoscopy History of esophagogastroduodenoscopy (EGD) History of laminectomy History of laminectomy (~09/2016) History of lumbar spinal fusion (12/22/18) Hx of toe surgery (05/16/20) S/P epidural steroid injection (11/2013) Status post dilation and curettage (2008) Family History Grandfather Diabetes mellitus Family/Other Pancreatic cancer Social History household members: spouse Smoking Status: Former smoker alcohol intake: current eating out: 1-3 times/week Type(s) of exercise: normal ROM and activity and sedentary lifestyle Smoking Status: Former smoker tobacco type: cigarettes alcohol intake frequency: other Substance Use Type: does not use Exam Initial Vital Signs Initial Vital Signs: Vital Signs Temperature 98.3 F 09/26/22 15:06 Pulse Rate 128 H 09/26/22 15:06 Respiratory Rate 18 09/26/22 15:06 Blood Pressure 141/81 H 09/26/22 15:06 Pulse Oximetry 94 09/26/22 15:06 Oxygen Delivery Method Room Air 09/26/22 15:06 Const General: cooperative, comfortable and No ill appearing HENMT Head: normal to inspection and normocephalic Resp Effort & Inspection: normal respiratory effort Auscultation: clear to auscultation bilaterally Cardio Rate: regular rate Rhythm: regular rhythm GI Inspection: normal to inspection and non-distended Palpation: soft Skin Other: Erythema bilateral lower extremities more consistent with venous stasis than cellulitis Neuro General: patient alert, patient awake and moves all extremities Extrem General: edema Course Orders Ordered: ED Orders 09/26/22 15:13 XR chest 1V Stat COVID19 -Nasal RAPID Stat 09/26/22 15:19 EKG-12 Lead Stat 09/26/22 15:30 BNP [NT-proBNP (BNP-Adult 18+)] Stat Complete Blood Count AUTO DIFF Stat Comprehensive Metabolic Panel Stat Lipase Stat Magnesium Stat PTT Partial Thromboplastin Aldo Stat Prothrombin Time INR Stat Troponin & CK Cardiac Panel Stat 09/26/22 15:54 US periph venous low extrem bi Stat Discontinued Medications Aspirin (Aspirin 81 Mg Chew Tab) 324 mg PO NOW ONE Stop: 09/26/22 15:14 Last Admin: 09/26/22 16:26 Dose: Not Given Documented By: GEORGINA Furosemide 60 mg/ Sodium (Chloride) 56 mls @ 112 mls/hr IV NOW ONE Stop: 09/26/22 17:38 Vital Signs Vital signs: Vital Signs - 8 hr 09/26/22 15:06 09/26/22 15:42 09/26/22 15:45 Temperature 98.3 F Pulse Rate 128 H 127 H 128 H Respiratory Rate 18 22 Blood Pressure 141/81 H Pulse Oximetry 94 96 97 Oxygen Delivery Method Room Air 09/26/22 16:00 09/26/22 16:00 09/26/22 16:15 Temperature Pulse Rate 123 H 120 H Respiratory Rate 23 21 Blood Pressure 123/72 Pulse Oximetry 94 94 Oxygen Delivery Method Room Air Medical Decision Making Medical Records Medical records reviewed: Yes I reviewed the patient's medical records. Lab Data Lab results reviewed: Yes I reviewed the patient's lab results. 09/26/22 15:30 09/26/22 15:30 Labs: Lab Results 09/26/22 09/26/22 09/26/22 Range/Units 15:30 15:30 15:30 WBC 5.7 (4.5-11.0) X10^3/uL RBC 4.92 (4.0-5.2) X10^6/uL Hgb 13.9 (12.0-16.0) g/dL Hct 41.1 (36-46) % MCV 83.4 (80-100) fL MCH 28.3 (26-34) PG MCHC 33.9 (30-36) % RDW 13.4 (11.6-14.8) % Plt Count 223 (150-400) X10^3/uL Neut % (Auto) 48.0 L (50-75) % Lymph % (Auto) 33.9 (25-40) % Hamb[place] % (Auto) 10.8 (3-14) % Eos % (Auto) 6.6 H (2-4) % Baso % (Auto) 0.7 (0-2) % Neut # (Auto) 2700 (2387-9532) /uL Lymph # (Auto) 1900 (6390-4462) /uL Hamb[place] # (Auto) 600 (0-900) /uL Eos # (Auto) 400 (0-450) /uL Baso # (Auto) 0 (0-100) /uL PT 12.3 (10.1-12.7) SECONDS INR 1.1 (0.9-1.3) APTT 35 (26-36) SECONDS Sodium 137 (137-145) mmol/L Potassium 4.0 (3.4-5.1) mmol/L Chloride 96 L (98-107) mmol/L Carbon Dioxide 29 (22-32) mmol/L BUN 17 (7-17) mg/dL Creatinine 0.52 (0.52-1.04) mg/dL Estimated GFR > 60 (>60) mL/min BUN/Creatinine Ratio 32.7 H (6-22) Glucose 160 H (70-100) mg/dL Calcium 9.8 (8.4-10.2) mg/dL Magnesium 2.0 (1.6-2.3) mg/dL Total Bilirubin 0.4 (0.2-1.3) mg/dL AST 108 H (14-36) IU/L ALT 84 H (<35) IU/L Alkaline Phosphatase 70 (38-126) U/L Total Creatine Kinase 42 (30-135) U/L CK-MB (CK-2) TNP CK-MB (CK-2) Rel Index TNP Troponin I < 0.012 (0.01-0.034) ng/mL NT-Pro-B Natriuret Pep (<125) pg/mL Total Protein 8.1 (6.3-8.2) g/dL Albumin 4.3 (3.5-5.0) g/dL Globulin 3.8 (1.7-4.1) g/dL Albumin/Globulin Ratio 1.1 (1.0-2.8) Lipase 67 (23-300) U/L /10/14 Range/Units 15:30 WBC (4.5-11.0) X10^3/uL RBC (4.0-5.2) X10^6/uL Hgb (12.0-16.0) g/dL Hct (36-46) % MCV (80-100) fL MCH (26-34) PG MCHC (30-36) % RDW (11.6-14.8) % Plt Count (150-400) X10^3/uL Neut % (Auto) (50-75) % Lymph % (Auto) (25-40) % Hamb[place] % (Auto) (3-14) % Eos % (Auto) (2-4) % Baso % (Auto) (0-2) % Neut # (Auto) (2592-8591) /uL Lymph # (Auto) (4400-0796) /uL Hamblen # (Auto) (0-900) /uL Eos # (Auto) (0-450) /uL Baso # (Auto) (0-100) /uL PT (10.1-12.7) SECONDS INR (0.9-1.3) APTT (26-36) SECONDS Sodium (137-145) mmol/L Potassium (3.4-5.1) mmol/L Chloride (98-107) mmol/L Carbon Dioxide (22-32) mmol/L BUN (7-17) mg/dL Creatinine (0.52-1.04) mg/dL Estimated GFR (>60) mL/min BUN/Creatinine Ratio (6-22) Glucose (70-100) mg/dL Calcium (8.4-10.2) mg/dL Magnesium (1.6-2.3) mg/dL Total Bilirubin (0.2-1.3) mg/dL AST (14-36) IU/L ALT (<35) IU/L Alkaline Phosphatase (38-126) U/L Total Creatine Kinase (30-135) U/L CK-MB (CK-2) CK-MB (CK-2) Rel Index Troponin I (0.01-0.034) ng/mL NT-Pro-B Natriuret Pep 27 (<125) pg/mL Total Protein (6.3-8.2) g/dL Albumin (3.5-5.0) g/dL Globulin (1.7-4.1) g/dL Albumin/Globulin Ratio (1.0-2.8) Lipase (23-300) U/L Imaging Data Chest x-ray: Radiologist's Impression: PROCEDURE:? XR CHEST 1V ? INDICATIONS:? chest pain ? TECHNIQUE:? One view of the chest was acquired.? ? COMPARISON:? [facility], CR, XR CHEST 1V, 09/19/2022, 20:37. ? FINDINGS:? ? Surgical changes and devices:? None.? ? Lungs and pleura:? Lungs are clear.? No pleural effusions or pneumothorax.? ? Mediastinum:? Mediastinal contours appear normal.? Heart size is normal.? ? Bones and chest wall:? No suspicious bony lesions.? Overlying soft tissues appear unremarkable.? ? IMPRESSION:? No acute cardiopulmonary process. US - DVT: Radiologist's Impression: PROCEDURE:? US PERIPH VENOUS LOW EXTREM BI ? INDICATIONS:? EVAL FOR DVT ? TECHNIQUE:? Real-time imaging, as well as color and pulse Doppler interrogation, were performed of the deep veins of both legs from the inguinal ligament to the popliteal fossa.? ? COMPARISON:? None. ? FINDINGS:? ? Right: The common femoral, femoral and popliteal veins are normally compressible, and free of intraluminal thrombus.? Color and pulse Doppler demonstrate normal phasic intravascular flow.? There is normal augmentation response to distal compression maneuver.? ? Left: The common femoral, femoral and popliteal veins are normally compressible, and free of intraluminal thrombus.? Color and pulse Doppler demonstrate normal phasic intravascular flow.? There is normal augmentation response to distal compression maneuver.? ? ? IMPRESSION:? ? Negative for deep venous thrombosis. ECG Data Attestation: I personally reviewed and interpreted this ECG as follows: Interpretation: Sinus tachycardia Ventricular rate 129 Left axis deviation Right bundle-branch block Normal QRS Nonspecific ST T wave changes MDM Narrative Medical decision making narrative: Patient does have bilateral lower extremity swelling. Her exam is not consistent with cellulitis. She does not have any DVTs. The lower extremity swelling is not new. I also agree that this is most likely fluid retention. Her BNP is unremarkable. She is on anticoagulation. She is tachycardic but has been tachycardic. I have low suspicion for pulmonary embolisms given the fact that her symptoms that she is having are not new and she is on anticoagulation. No signs of pneumonia. The plan will be is to have her increase her Lasix from 60 mg twice a day to 80 mg twice a day. We will also have her increase her metoprolol from 37.5 mg twice a day to 50 mg twice a day. She does require follow-up with Cardiology. No indication for admission to the hospital. Patient was given return precautions. She expressed understanding and agreement. Discharge Plan Departure Patient Disposition: Home Clinical Impression: Edema, peripheral Instructions: DI for Peripheral Edema -- Bilateral Activity Restrictions/Additional Instructions: I recommend that you increase your Lasix from 60 mg twice a day to 80 mg twice a day. I also recommend that you increase your metoprolol from 1.5 tablets twice a day to 2 tablets twice a day. Also recommend that you contact your primary doctor for follow-up. Continue to take the rest of her medications as directed. Return to the emergency department for new or worsening symptoms. Prescriptions: No Action (DME) lancets [Easy Touch Twist Lancets] 33 gauge misc See Dose Instructions .ROUTE .MEDSUPPLY Qty: 100 3RF Hold Instructions: Not checking her blood sugar regularly Dose Instruction: As directed Rx Instructions: test qd 90 min after meal omeprazole 20 mg capsule,delayed release(DR/EC) See Rx Instructions .ROUTE .COMPLEX Qty: 60 11RF Dose Instruction: TAKE 1 CAPSULE BY MOUTH TWICE DAILY. Rx Instructions: TAKE 1 CAPSULE BY MOUTH TWICE DAILY. metoprolol succinate 25 mg tablet extended release 24 hr See Rx Instructions PO DAILY Rx Instructions: 1.5 tabs orally daily; doxepin 100 mg capsule 200 mg PO BEDTIME Qty: 60 5RF (DME) Compressioin Stockings Qty: 1 0RF Hold Instructions: patient is not using them Rx Instructions: As directed (DME) [facility] Blood Glucose Test Strips See Rx Instructions .Route .MEDSUPPLY Qty: 180 3RF Hold Instructions: Not checking her BP regularly Rx Instructions: Use to test blood glucose twice daily, fasting a 2hrs post prandial metformin 500 mg tablet 1,000 mg PO BID Qty: 120 11RF levalbuterol tartrate 45 mcg/actuation HFA aerosol inhaler 1 puff inhalation Q4-6H PRN (Reason: shortness of breath or wheezing) Qty: 15 2RF furosemide 40 mg tablet See Rx Instructions .ROUTE .COMPLEX Qty: 135 5RF Dose Instruction: TAKE 2 AND 1/2 TABLETS BY MOUTH EVERY MORNING AND 2 TABLETS EVERY EVENING FOR A TOTAL OF 180 MG DAILY Patient Comments: 60mg BID Rx Instructions: 60 mg BID cyclobenzaprine 10 mg tablet See Rx Instructions .ROUTE .COMPLEX Qty: 90 1RF Dose Instruction: TAKE 1 TABLET BY MOUTH THREE TIMES DAILY NEEDED FOR MUSCLE SPASM Rx Instructions: TAKE 1 TABLET BY MOUTH THREE TIMES DAILY NEEDED FOR MUSCLE SPASM spironolactone 25 mg tablet See Rx Instructions .ROUTE .COMPLEX Qty: 30 0RF Dose Instruction: TAKE 1/2 TABLET BY MOUTH DAILY Rx Instructions: TAKE 1/2 TABLET BY MOUTH DAILY meclizine 25 mg tablet See Rx Instructions .ROUTE .COMPLEX Qty: 90 5RF Dose Instruction: TAKE 2 TABLETS BY MOUTH DAILY NEEDED FOR DIZZINESS OR VERTIGO Rx Instructions: TAKE up to 3 TABLETS BY MOUTH DAILY FOR DIZZINESS OR VERTIGO magnesium oxide 400 mg (241.3 mg magnesium) tablet 400 mg PO DAILY Qty: 30 0RF pregabalin 300 mg capsule 300 mg PO BID Qty: 180 3RF Rx Instructions: take 1 capsule by mouth twice a day levothyroxine 25 mcg tablet See Rx Instructions .ROUTE .COMPLEX Qty: 90 0RF Dose Instruction: TAKE 1 TABLET BY MOUTH DAILY AT 6 AM Rx Instructions: TAKE 1 TABLET BY MOUTH DAILY AT 6 AM terazosin 2 mg capsule See Rx Instructions .ROUTE .COMPLEX Qty: 30 2RF Dose Instruction: TAKE 1 CAPSULE BY MOUTH AT BEDTIME Rx Instructions: TAKE 1 CAPSULE BY MOUTH AT BEDTIME oxycodone 5 mg tablet 5 mg PO Q4H PRN (Reason: pain) Qty: 30 0RF Rx Instructions: 1-2 tabs every 4 hours as needed Xarelto 20 mg tablet See Rx Instructions .ROUTE .COMPLEX Qty: 30 0RF Dose Instruction: TAKE 1 TABLET BY MOUTH DAILY WITH THE EVENING MEAL Rx Instructions: TAKE 1 TABLET BY MOUTH DAILY WITH THE EVENING MEAL ascorbic acid (vitamin C) 500 mg tablet 500 mg PO DAILY vitamin B complex Capsule 1 cap PO DAILY potassium gluconate 595 mg (99 mg) tablet 595 mg PO DAILY ketoconazole 2 % shampoo 1 applic TOPICAL DAILY triamcinolone acetonide 0.1 % cream 1 applic TOPICAL BID PRN (Reason: Rash) Rx Instructions: mix 50/50 with Ketoconazole cream and apply to under breast twice daily until resolve. Do not exceed over 2 weeks of use during flare up. clobetasol 0.05 % ointment 1 applic TOPICAL BID PRN (Reason: Rash) Patient Comments: APPLY TOPICALLY TO THE AFFECTED AREA TWICE DAILY fluticasone propion-salmeterol [Wixela Inhub] 100-50 mcg/dose blister with device 1 ea INHALATION BID Patient Comments: INHALE 1 PUFF BY MOUTH TWICE DAILY. RINSE MOUTH WITH WATER AFTER USE. DO NOT SWALLOW Rx Instructions: Rinse mouth with water after each use, do not swallow. ketoconazole 2 % cream 1 applic TOPICAL BID PRN (Reason: Rash) Rx Instructions: apply to affected areas under breast twice daily, do not exceed use over 2 weeks per flare up. Atrovent HFA 17 mcg/actuation HFA aerosol inhaler 2 puff INHALATION Q8H PRN (Reason: Wheezing) Patient Comments: INHALE 1 PUFF BY MOUTH EVERY 8 HOURS aripiprazole 30 mg tablet 30 mg PO BEDTIME Rx Instructions: Take one 30mg tablet by mouth daily Referrals: Alejandra Lynch MD [Primary Care Provider] - Stand Alone Forms: Patient Portal/API
[2022-09-26 15:52] LABS: INR 1.1 (0.9-1.3); Prothrombin Time 12.3 SECONDS (10.1-12.7)
--- NOTE | 2022-09-26 15:54 | DI.US.S_ITS ---
PROCEDURE: US PERIPH VENOUS LOW EXTREM BI INDICATIONS: EVAL FOR DVT TECHNIQUE: Real-time imaging, as well as color and pulse Doppler interrogation, were performed of the deep veins of both legs from the inguinal ligament to the popliteal fossa. COMPARISON: None. FINDINGS: Right: The common femoral, femoral and popliteal veins are normally compressible, and free of intraluminal thrombus. Color and pulse Doppler demonstrate normal phasic intravascular flow. There is normal augmentation response to distal compression maneuver. Left: The common femoral, femoral and popliteal veins are normally compressible, and free of intraluminal thrombus. Color and pulse Doppler demonstrate normal phasic intravascular flow. There is normal augmentation response to distal compression maneuver. IMPRESSION: Negative for deep venous thrombosis. Dictated by: Rickie Lundberg M.D. on 09/26/2022 at 15:42 Approved by: Rickie Lundberg M.D. on 09/26/2022 at 15:42
[2022-09-26 15:55] LABS: PTT Partial Thromboplastin Tim 35 SECONDS (26-36)
[2022-09-26 16:00] VITALS: BP 123/72; PULSE 123; RESP 23; O2SAT 94
[2022-09-26 16:04] LABS: Alanine Aminotransferase 84 IU/L (<35); Albumin 4.3 g/dL (3.5-5.0); Albumin Globulin Ratio 1.1 (1.0-2.8); Alkaline Phosphatase 70 U/L (38-126); Aspartate Aminotransferase 108 IU/L (14-36); BUN Creatinine Ratio 32.7 (6-22); Bilirubin Total 0.4 mg/dL (0.2-1.3); Blood Urea Nitrogen 17 mg/dL (7-17); Calcium 9.8 mg/dL (8.4-10.2); Carbon Dioxide 29 mmol/L (22-32); Chloride 96 mmol/L (98-107); Creatine Kinase 42 U/L (30-135); Estimated Glomerular Filt Rate > 60 mL/min (>60); Globulin 3.8 g/dL (1.7-4.1); Glucose 160 mg/dL (70-100); HEMOLYSIS 29 (0-50); Lipase 67 U/L (23-300); Sodium 137 mmol/L (137-145); Total Protein 8.1 g/dL (6.3-8.2)
[2022-09-26 16:15] VITALS: PULSE 120; RESP 21; O2SAT 94
[2022-09-26 16:15] LABS: Troponin I < 0.012 ng/mL (0.01-0.034)
[2022-09-26 16:34] LABS: NT-proBNP (BNP-Adult 18+) 27 pg/mL (<125)
[2022-09-26] MEDS: FUROSEMIDE 60 MG in SODIUM CHLORIDE 0.9% 50 ML 112 MG IV (18:04)
== END 2022-09-26 18:31 | disposition home or self-care (01) ==
PROVIDERS: Emergency Provider Emergency Medicine; Family Provider Family Medicine; PCP Family Medicine
DX: R60.9 Edema, unspecified (principal); R06.00 Dyspnea, unspecified; R07.9 Chest pain, unspecified; Z79.01 Long term (current) use of anticoagulants
CPT/HCPCS: 36415; 71045; 80053; 82550; 83690; 83735; 83880; 84484; 85025; 85610; 85730; 93005; 93010; 93970; 96365; 99284; J1940

== ENCOUNTER → 2022-10-22 09:50 | Outpatient (CLI) | payer OTHER, MEDICARE, SELFPAY ==
[2022-09-08 07:50] VITALS: BMI 47.4
[2022-10-07 14:47] VITALS: BMI 47.4
--- NOTE | 2022-10-22 09:52 | DI.US.S_ITS ---
PROCEDURE: US ABDOMEN LIMITED INDICATIONS: FATTY LIVER TECHNIQUE: Real-time scanning was performed of the abdominal and retroperitoneal organs, with image documentation. COMPARISON: None. FINDINGS: Liver: The liver measures 19.4 cm in length and demonstrates increased echogenicity throughout. Gallbladder: The gallbladder wall measures 2.4 mm in diameter. No stones, sludge, pericholecystic fluid, or sonographic Fuchs sign. Biliary ducts: No intrahepatic biliary ductal dilatation. The common bile duct is not visualized. Pancreas: The pancreas is poorly visualized. IMPRESSION: 1. Markedly limited study. 2. Increased hepatic echogenicity noted likely related to fatty infiltration of the liver but other sources of hepatocellular disease cannot be excluded. 3. No cholelithiasis or findings to suggest choledocholithiasis or acute cholecystitis. Dictated by: Reina Herring M.D. on 10/22/2022 at 17:08 Approved by: Reina Herring M.D. on 10/22/2022 at 17:09
[2022-10-22 12:23] LABS: Alanine Aminotransferase 53 IU/L (<35); Albumin 4.3 g/dL (3.5-5.0); Albumin Globulin Ratio 1.2 (1.0-2.8); Alkaline Phosphatase 58 U/L (38-126); Aspartate Aminotransferase 43 IU/L (14-36); Bilirubin Total 0.5 mg/dL (0.2-1.3); Blood Urea Nitrogen 14 mg/dL (7-17); Calcium 9.3 mg/dL (8.4-10.2); Carbon Dioxide 27 mmol/L (22-32); Chloride 97 mmol/L (98-107); Estimated Glomerular Filt Rate > 60 mL/min (>60); Globulin 3.6 g/dL (1.7-4.1); Glucose 211 mg/dL (70-100); Potassium 4.1 mmol/L (3.4-5.1); Sodium 135 mmol/L (137-145); Total Protein 7.9 g/dL (6.3-8.2)
[2022-10-22 12:25] LABS: HEMOLYSIS 91 (0-50)
[2022-10-23 08:13] LABS: x Labcorp Estim. Avg Glu (eAG) 180 mg/dL (.); x Labcorp Hemoglobin A1c 7.9 % (4.8-5.6)
== END ==
PROVIDERS: Family Provider Family Medicine; PCP Family Medicine; Referring Provider Family Medicine; Visit Provider Family Medicine
DX: K76.0 Fatty (change of) liver, not elsewhere classified (principal); E11.9 Type 2 diabetes mellitus without complications; I27.20 Pulmonary hypertension, unspecified
CPT/HCPCS: 36415; 76705; 80053; 83036

== ENCOUNTER 2022-11-14 12:26 | Day surgery (SDC) | payer OTHER, MEDICARE, SELFPAY ==
[2022-10-07 14:47] VITALS: BMI 47.4
--- NOTE | 2022-11-14 | PATH_ITS ---
[facility] Accession Number: [id number] No. of containers..03 Tissue . 01 Material submitted: . PART A: stomach - ANTRUM PART B: gastrointestinal site - GASTRIC POLYP PART C: esophagus, E-G Junction - EG JUNCTION . 01 Diagnosis: A. Gastric Antrum, Biopsy: Gastric antral mucosa with mild features of reactive gastropathy. Negative for Helicobacter organisms by immunohistochemistry. Negative for intestinal metaplasia. Negative for dysplasia or malignancy. . B. Gastric Polyp: Fundic gland polyp. No evidence of Helicobacter organisms on H/E stain. Negative for intestinal metaplasia. Negative for dysplasia and malignancy. . C. Gastroesophageal Junction, Biopsy: Squamocolumnar junctional mucosa with mild reactive features of reflux esopahgitis. Negative for specialized intestinal metaplasia, dysplasia or malignancy. [facility] 11/21/2022 1423 Local . 01 Electronically signed: . Gutierrez Phipps MD, PhD, Pathologist NPI- [id number] . 01 Gross description: . Part A: ANTRUM: Received in formalin are 2 fragment(s) of hernandez, soft tissue measuring 0.1 x 0.1 x 0.1 cm to 0.2 x 0.1 x 0.1 cm submitted entirely in 1 cassette(s) Part B: GASTRIC POLYP: Received in formalin is 1 fragment(s) of hernandez, soft tissue measuring 0.3 x 0.3 x 0.3 cm submitted entirely in 1 cassette(s) Part C: EG JUNCTION: Received in formalin are 3 fragment(s) of hernandez, soft tissue measuring 0.1 x 0.1 x 0.1 cm to 0.3 x 0.2 x 0.2 cm submitted entirely in 1 cassette(s) /KEMAR 11/19/2022 0014 Local . 01 Microscopic: . A. An immunohistochemical stain was performed to evaluate for Helicobacter organisms and is negative. The control stain showed appropriate reactivity. . * This test was developed and its performance characteristics determined by [employer]. It has not been cleared or approved by the U.S. Food and Drug Administration. The FDA has determined that such clearance or approval is not necessary. This test is used for clinical purposes. It should not be regarded as investigational or for research. . 01 Pathologist provided ICD-10: R10.13, K29.60, K31.7, K21.9 . 01 CPT . 934444, 327070, 958713, K27159 Specimen Comment: A courtesy copy of this report has been sent to Pathology Performed at: 01 [facility] [address] [place] [address], [place], [place] [id number] MD Gustavo Dorsey MD Phone: [phone]
[2022-11-14 12:46] VITALS: BP 143/91; PULSE 115; RESP 21; TEMP 36.6; O2SAT 95; BMI 49.9
--- NOTE | 2022-11-14 12:48 | P.HP_ITS ---
History of Present Illness History of Present Illness Chief complaint: EGD Narrative: Ms. Oliveira is a 41-year-old female who has many medical problems including DVT and is on Xarelto for that.? She is recovering well from a hysterectomy which she had about 3 weeks ago and continued the Xarelto during the hysterectomy; she also had a colonoscopy not long ago during which she continued her Xarelto as well.? The indication for the colonoscopy was GI bleeding but other than diverticula which were not actively inflamed or bleeding, no acute source of bleeding were seen.? She now is complaining of chest pain.? She says that the pain has been going on for at least a couple of months and is now constant.? She said it used to come and go and now it is constant.? She says it feels like ?pressure? or ?fuzzy burning?.? She has no trouble swallowing with that but she does note that the pain seems to be worse after eating.? There is no certain type of food that seems to cause the pain more than others every thing she eats even water causes pain.? The timing of the onset of the pain is a few minutes after eating.? She does have a diagnosis of acid reflux for which she takes omeprazole twice daily.? Ever since she is been taking omeprazole she states that she does not get heartburn anymore.? The way she experienced heartburn is with burning in her throat.? The omeprazole improves that sensation however if she misses a day of her omeprazole she feels it again.? She is been taking omeprazole for a couple of years now.? She is been working with her primary care doctor Cris who has sent her here for a referral for an EGD.? She has been to the emergency room with this pain and cardiopulmonary workup did not show any obvious reason for chest pain. 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) Morbid obesity Narcotic habituation, continuous Nocturnal hypoxemia Obstipation LYLA (obstructive sleep apnea) Ovarian cyst Plantar fasciitis Psychogenic nonepileptic seizure Pulmonary embolism RBBB (right bundle branch block) Sinus tachycardia Status post laminectomy (12/14/15) Suicide attempt Tobacco abuse Tylenol overdose Urinary retention Surgical History (Updated 11/14/22 @ 12:45 by Zachary Araujo RN) H/O: hysterectomy History of carpal tunnel repair (~10/30/14) History of colonoscopy History of esophagogastroduodenoscopy (EGD) History of laminectomy History of laminectomy (~09/2016) History of lumbar spinal fusion (12/22/18) Hx of toe surgery (05/16/20) S/P epidural steroid injection (11/2013) Status post dilation and curettage (2008) Family History Grandfather Diabetes mellitus Family/Other Pancreatic cancer Social History household members: spouse Smoking Status: Former smoker alcohol intake: never eating out: 1-3 times/week Type(s) of exercise: normal ROM and activity and sedentary lifestyle Meds Home Medications and Allergies Home Medications Medication Instructions Recorded Confirmed Type lancets 33 gauge (Easy Touch Twist #100 ea 12/08/18 10/29/22 Rx Lancets) Compressioin Stockings #1 ea 10/13/19 10/29/22 Rx Livongo Blood Glucose Test Strips #180 ea 08/10/20 10/29/22 Rx metformin 500 mg tablet 1,000 mg PO BID #120 tabs 10/24/21 11/14/22 Rx levalbuterol tartrate 45 1 puff inhalation Q4-6H PRN 01/22/22 10/29/22 Rx mcg/actuation aerosol inhaler shortness of breath or wheezing #15 grams furosemide 40 mg tablet See Rx Instructions .Route 05/20/22 11/14/22 Rx .COMPLEX #135 tabs meclizine 25 mg tablet See Rx Instructions .Route 07/14/22 11/14/22 Rx .COMPLEX #90 tabs clobetasol 0.05 % topical ointment 1 applic topical BID PRN Rash 07/16/22 10/29/22 History fluticasone 100 mcg-salmeterol 50 1 ea inhalation BID 07/16/22 10/29/22 History mcg/dose blistr powdr for inhalation (Jovan Inhub) ketoconazole 2 % shampoo 1 applic topical DAILY 07/16/22 10/29/22 History ketoconazole 2 % topical cream 1 applic topical BID PRN Rash 07/16/22 10/29/22 History triamcinolone acetonide 0.1 % 1 applic topical BID PRN Rash 07/16/22 10/29/22 History topical cream magnesium oxide 400 mg (241.3 mg 400 mg PO DAILY #30 tabs 07/18/22 10/29/22 Rx magnesium) tablet ascorbic acid (vitamin C) 500 mg 500 mg PO DAILY 07/28/22 10/29/22 History tablet potassium gluconate 595 mg (99 mg) 595 mg PO DAILY 07/28/22 10/29/22 History tablet vitamin B complex 1 cap PO DAILY 07/28/22 10/29/22 History pregabalin 300 mg capsule 300 mg PO BID #180 caps 08/04/22 11/14/22 Rx levothyroxine 25 mcg tablet See Rx Instructions .Route 08/18/22 11/14/22 Rx .COMPLEX #90 tabs aripiprazole 30 mg tablet 30 mg PO BEDTIME 08/26/22 10/29/22 History ipratropium bromide 17 2 puff inhalation Q8H PRN Wheezing 08/26/22 11/14/22 History mcg/actuation HFA aerosol inhaler (Atrovent HFA) terazosin 2 mg capsule See Rx Instructions .Route 08/29/22 10/29/22 Rx .COMPLEX #30 caps omeprazole 20 mg capsule,delayed See Rx Instructions .Route 09/24/22 11/14/22 Rx release .COMPLEX #60 caps cyclobenzaprine 10 mg tablet See Rx Instructions .Route 09/29/22 11/14/22 Rx .COMPLEX #90 tabs metoprolol succinate 25 mg 50 mg PO BID 10/10/22 11/14/22 History tablet,extended release 24 hr doxepin 100 mg capsule 200 mg PO BEDTIME #60 caps 10/22/22 10/29/22 Rx rivaroxaban 20 mg tablet (Xarelto) See Rx Instructions .Route 10/27/22 11/14/22 Rx .COMPLEX #30 tabs spironolactone 25 mg tablet See Rx Instructions .Route 11/07/22 Rx .COMPLEX #45 tabs Allergies Allergy/AdvReac Type Severity Reaction Status Date / Time carisoprodol [CARISOPRODOL] AdvReac Severe urinary Verified 10/29/22 11:07 retention fosphenytoin AdvReac Severe Seizures Verified 10/29/22 11:07 Latex, Natural Rubber AdvReac Mild Rash Verified 10/29/22 11:07 Exam Narrative Exam Narrative: Const General: cooperative, comfortable and no acute distress Nutritional Appearance: malnourished and obese Orientation: oriented x3 Limitations: physical limitations (Walking with a walker) HENMT Head: normal to inspection (She had some flaky skin on her scalp and dirt on her face.) Eyes General: appearance normal, both eyes and all related structures Resp Effort & Inspection: normal respiratory effort and able to speak in complete sentences Cardio Pulses: radial pulses present GI Palpation: soft and nontender Other: Hysterectomy scars Skin General: dry skin. Psoriatic patches on her arms Neuro Cognition: normal cognition Speech: speech normal Extrem General: edema (Mild) Laterality: bilateral Assessment & Plan Assessment and plan (1) Gastroesophageal reflux disease without esophagitis: Status: Chronic (2) Epigastric pain: Status: Acute Assessment & Plan narrative: I think an esophageal or gastric etiology for this ?chest pain? is a very reasonable thought and I think it makes sense to proceed with an EGD. I discussed the risks benefits and alternatives to an EGD scope, including but not limited to damage to the esophagus or stomach, lack of diagnostic findings, bleeding.? She understands and would like to proceed.
[2022-11-14 13:08] VITALS: BMI 49.9
[2022-11-14 14:59] VITALS: BP 152/98; PULSE 121; RESP 20; TEMP 36.2; O2SAT 96
[2022-11-14 15:04] VITALS: BP 167/111; PULSE 122; RESP 13; O2SAT 94
--- NOTE | 2022-11-14 15:08 | SUR.PHASEI ---
Pt to PACU on stretcher. VSS at baseline. Pt intubated for EGD. Lungs clear with slight coarse. No wheeze. HOB elevated.
[2022-11-14 15:10] VITALS: BP 161/99; PULSE 117; RESP 18; O2SAT 93
[2022-11-14 15:14] VITALS: BP 157/106; PULSE 115; RESP 12; TEMP 36.7; O2SAT 94
--- NOTE | 2022-11-14 15:17 | PM.OP.EGD ---
Operative Date/Time/Diagnoses Date of procedure: 11/14/22 Time of procedure: 15:17 Pre-op diagnosis: Epigastric abdominal pain Post-op diagnosis: same Procedure & Clinicians Study performed: EGD and biopsy Same procedure as scheduled: Yes Indications: Epigastric abdominal pain Surgeon: Cristy Ferguson Procedure Notes Procedure in detail: Patient was taken to the endoscopy suite and placed supine on the operating room table. A time-out was performed. With the help of an anesthesiologist conscious sedation was attempted. A bite block was placed. I was able to place the scope into the mouth and into the esophagus and was able to examine the stomach revealing gastritis especially around the antrum. I was able to intubate the duodenum and obtain some photographs. I then withdraw the scope and at about this time the patient began to desaturate severely and quickly. I was asked to remove the scope quickly and I did. The bite block was removed and an oral airway was placed. Respiratory support was provided until the O2 sats came back within the normal range. The patient did remain tachycardic throughout the duration of the case. I then made a 2nd attempt after replacing the bite block to proceed with EGD. I easily again placed the scope into the esophagus and advanced it into the stomach and was preparing to take some biopsies of the reddened antral area where some almost ulcerous type of lesions appeared, when the desaturation occurred once again. Withdrew the scope 2nd time and the anesthesiologist provided respiratory support until the O2 sats returned to acceptable levels. At this point I suggested that we could cancel the remainder of this case since we have seen irritation of the stomach and have some photographs. However the decision was made to proceed with intubation and general anesthesia in order to obtain biopsies. The anesthesiologist intubated the patient in the normal way and I was able at that time to place the scope into the mouth and down the esophagus once again into the stomach. I obtained biopsies all around the antrum. There were a few scattered gastric polyps which I biopsied as well. I retroflexed the scope and took a photograph; no hiatal hernia was appreciated.. I did not notice during previous attempts that there seemed to be a large amount of liquid in the stomach I wonder if the gastric function is affected. I then withdrew the scope into the esophagus and it did appear that there was some mild esophagitis possibly Taylor's. Several biopsies of the GE junction were obtained. Photographs were obtained. The scope was then withdrawn and the patient was extubated and taken to the postoperative care unit. 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 Antrum 2. Gastric polyp 3. GE junction) Post-procedure Recommendations: Start medication(s) (Antacid medication) Plan for aftercare: I recommend starting Protonix and following up with your primary care physician about if this is the right antacid medication for you but I would take it daily starting today. Biopsy results will be sent in a letter and forwarded to your primary care physician as well. Depending on the esophagus biopsies further screening for Taylor's maybe recommended. Disposition: PACU
--- NOTE | 2022-11-14 15:17 | SUR.PHASEI ---
Pt awake, alert. States she has a sore throat and Epigastric pain when I cough and stuff Explained to patient that Intubation was done. Sinus tach..
[2022-11-14 15:29] VITALS: BP 146/79; PULSE 113; RESP 14; O2SAT 98
== END 2022-11-14 15:53 | disposition home or self-care (01) ==
PROVIDERS: Family Provider Family Medicine; PCP Family Medicine; Referring Provider Surgery; Visit Provider Surgery
PROC: 0DJ08ZZ Inspection of Upper Intestinal Tract, Via Natural or Artificial Opening Endoscopic (ICD-10-PCS; CPT 43235; principal; 2022-11-14 14:00)
DX: K22.70 Barrett's esophagus without dysplasia (principal); K25.9 Gastric ulcer, unspecified as acute or chronic, without hemorrhage or perforation; K29.70 Gastritis, unspecified, without bleeding; K31.7 Polyp of stomach and duodenum; K31.89 Other diseases of stomach and duodenum
CPT/HCPCS: 43239; 82962

== ENCOUNTER → 2022-12-16 16:31 | Outpatient (CLI) | payer OTHER, MEDICARE, SELFPAY ==
[2022-10-07 14:47] VITALS: BMI 47.4
[2022-12-16 17:31] LABS: Add Manual Diff / Slide Review NO; Basophils Absolute Auto 0 /uL (0-100); Basophils Percent Auto 0.7 % (0-2); Eosinophils Absolute Auto 200 /uL (0-450); Eosinophils Percent Auto 3.5 % (2-4); Hematocrit 40.9 % (36-46); Hemoglobin 13.5 g/dL (12.0-16.0); Lymphocytes Absolute Auto 1600 /uL (1100-4500); Mean Corpuscular HGB Conc 33.1 % (30-36); Mean Corpuscular Hemoglobin 28.3 PG (26-34); Mean Corpuscular Volume 85.3 fL (80-100); Monocytes Absolute Auto 500 /uL (0-900); Monocytes Percent Auto 8.2 % (3-14); Neutrophils Absolute Auto 3200 /uL (1500-7000); Neutrophils Percent Auto 58.6 % (50-75); Platelet Count 232 X10^3/uL (150-400); Red Blood Cell Count 4.79 X10^6/uL (4.0-5.2); Red Cell Distribution Width 14.4 % (11.6-14.8); White Blood Cell Count 5.5 X10^3/uL (4.5-11.0)
[2022-12-16 17:49] LABS: Alanine Aminotransferase 41 IU/L (<35); Albumin 4.4 g/dL (3.5-5.0); Albumin Globulin Ratio 1.3 (1.0-2.8); Alkaline Phosphatase 75 U/L (38-126); Aspartate Aminotransferase 36 IU/L (14-36); BUN Creatinine Ratio 15.2 (6-22); Bilirubin Total 0.3 mg/dL (0.2-1.3); Blood Urea Nitrogen 10 mg/dL (7-17); Calcium 9.7 mg/dL (8.4-10.2); Carbon Dioxide 35 mmol/L (22-32); Chloride 96 mmol/L (98-107); Estimated Glomerular Filt Rate > 60 mL/min (>60); Globulin 3.5 g/dL (1.7-4.1); Glucose 285 mg/dL (70-100); HEMOLYSIS 19 (0-50); Potassium 3.9 mmol/L (3.4-5.1); Sodium 138 mmol/L (137-145); Total Protein 7.9 g/dL (6.3-8.2)
[2022-12-16 17:50] LABS: Prothrombin Time 11.7 SECONDS (10.1-12.7)
[2022-12-16 18:00] LABS: Transferrin 306 mg/dL (206-381)
[2022-12-16 18:21] LABS: Ferritin 33 ng/mL (6-137)
[2022-12-16 21:48] LABS: Percent Iron Saturation 10 % (15-50)
[2022-12-17 13:04] LABS: HCV AB Non Reactive (Non Reactive); Hepatitis B Surf Ab Qualitativ Reactive (.)
[2022-12-18 00:35] LABS: Hepatitis A Antibody Total Negative (Negative); Hepatitis B Core Antibody Negative (Negative)
[2022-12-18 07:43] LABS: Alpha 1 Anti Trypsin 129 mg/dL (101-187); Ceruloplasmin 27.8 mg/dL (19.0-39.0)
[2022-12-18 16:36] LABS: ANA Screen, IFA Negative (.)
[2022-12-18 17:31] LABS: Hepatitis B Surface Antigen NEGATIVE s/c (NEGATIVE)
== END ==
PROVIDERS: Family Provider Family Medicine; PCP Family Medicine; Referring Provider Internal Medicine; Visit Provider Internal Medicine
DX: K76.0 Fatty (change of) liver, not elsewhere classified (principal)
CPT/HCPCS: 36415; 80053; 82103; 82390; 82728; 84466; 85025; 85610; 86038; 86704; 86706; 86708; 86803; 87340

== ENCOUNTER 2023-01-07 08:00 | Outpatient (RCR) | payer OTHER, MEDICARE, SELFPAY ==
[2022-07-15 19:45] VITALS: BMI 46.0
[2022-09-08 07:50] VITALS: BMI 47.4
--- NOTE | 2022-09-25 11:56 | PT.OPPOC ---
Physical, Occupational & Speech Therapy At [facility] Current Diagnoses Other abnormalities of gait and mobility (09/25/22) Dizziness and giddiness (09/25/22) Weakness (09/25/22) Visit Care Team Role Provider Type Alejandra Lynch MD Attending Provider Physician Family Provider Primary Care Provider Referring Provider Specialty: Family Practice Address: [address] [place] [address], [facility] Email: [email or web address] Plan Of Care PT-OP-T Assessment and Plan Start: 09/25/22 13:16 Freq: Status: Active Protocol: Document 09/25/22 13:16 SAK (Rec: 09/25/22 14:04 SAK [id number]) Physical Therapy Assessment Other Concerns Barriers to Rehabilitation extensive PMH:Medical History Acetaminophen overdose of undetermined intent (12/2015) Alcoholism 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 Asthma Cubital tunnel syndrome DM type 2 (diabetes mellitus, type 2) DVT (deep venous thrombosis) Essential hypertension Fibromyalgia (03/02/15) Hypoxia Intraoperative cardiac arrest during non-cardiac surgery () 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 screen 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 cyclone repairer associated with adverse incidents (~2011) Morbid obesity Narcotic habituation, continuous Nocturnal hypoxemia Obstipation LYLA (obstructive sleep apnea) Ovarian cyst Plantar fasciitis Psychogenic nonepileptic seizure Pulmonary embolism RBBB (right bundle branch block) Sinus tachycardia Status post laminectomy (12/13) Suicide attempt Tobacco abuse Tylenol overdose Urinary retention Surgical History (Reviewed 11/14 @ 14:16 by Christine Cleveland RN) History of carpal tunnel repair (~10/30/14) History of colonoscopy History of esophagogastroduodenoscopy ( EGD) History of laminectomy History of laminectomy (~2016) History of lumbar spinal fusion (12/22/18) Hx of toe surgery (05/16/20) S/P epidural steroid injection (11/2013) Status post dilation and curettage (2008) Goals Three Impairment gait dysfunction Impairment uses 4WW for gait Short Term Goal (STG) Patient able to ambulate within the home with SPC safely STG Duration 10/26/22 Long-Term Goal (LTG) Patient will be able to ambulate in the community safely using least restrictive device LTG Duration 11/25/22 weakness Impairment weakness throughout body Impairment MMT not done due to recent surgery Short Term Goal (STG) Patient to be instructed in HEP for general strengthening STG Duration 10/26/22 Long-Term Goal (LTG) Patient to be independent and compliant with HEP and demonstrate muscle strength of at least 4/5 throughout UE's, LE's, and trunk LTG Duration 11/25/22 Two Impairment intolerance to activity Short Term Goal (STG) Patient will be able to tolerate standing or walking for at least 15 min without excess fatigue STG Duration 10/26/22 Long-Term Goal (LTG) Patient will be able to tolerate standing or walking for at least 30 min to allow her to return to doing household and community activities LTG Duration 11/25/22 One Impairment balance dysfunction Impairment Graham Balance score 33/56 Tinetti gait and balance assessment score 9/28 (high risk for falls) Short Term Goal (STG) Improve Graham Balance score to at least 43/56 and Tinneti score to at least 19/28 STG Duration 10/26/22 Long-Term Goal (LTG) Improve Graham Balance score to at least 50/56 and Tinneti score to at least 25/28 as measure of improved safety with mobility LTG Duration 11/25/22 Assessment Summary Assessment Patient presents to PT with c/ o decreased balance, weakness and fear of falling, and dizziness since January 2022 for unknown reason. Patient currently uses 4WW for gait. Patient has complicated medical history including 4 spinal surgeries, diabetic neuropathy, cardiac issues with current tachycardia, LE edema. BP sitting 122/82, standing 90/74. Patient had hysterectomy 09/08/22, has no precautions from physician but is concerned about over doing it. States activity level is very low, she feels weak. MMT limited due to recent surgery but patient has antigravity strength in hips, knees, and left ankle, lacking full active df right ankle. Graham balance score 33/56, at high risk for falls. Feel patient will benefit from PT for gentle strengthening, balance training, gait training. POC was discussed and she was in agreement. Full PMH and surgical history: Medical History Acetaminophen overdose of undetermined intent (12/2015) Alcoholism 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 Asthma Cubital tunnel syndrome DM type 2 (diabetes mellitus, type 2) DVT (deep venous thrombosis) Essential hypertension Fibromyalgia (03/02/15) Hypoxia Intraoperative cardiac arrest during non-cardiac surgery () 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 screen and cyclone repairer associated with adverse incidents (~2011) Morbid obesity Narcotic habituation, continuous Nocturnal hypoxemia Obstipation LYLA (obstructive sleep apnea) Ovarian cyst Plantar fasciitis Psychogenic nonepileptic seizure Pulmonary embolism RBBB (right bundle branch block) Sinus tachycardia Status post laminectomy (12/13) Suicide attempt Tobacco abuse Tylenol overdose Urinary retention Surgical History (Reviewed 11/14 @ 14:16 by Christine Cleveland RN) History of carpal tunnel repair (~10/30/14) History of colonoscopy History of esophagogastroduodenoscopy ( EGD) History of laminectomy History of laminectomy (~2016) History of lumbar spinal fusion (12/22/18) Hx of toe surgery (05/16/20) S/P epidural steroid injection (11/2013) Status post dilation and curettage (2008) Physical Therapy Plan Frequency and Duration Frequency of Treatment 2x/Week Duration of treatment (weeks) 8 Plan of Care Start Date 09/25/22 Plan of Care End Date 11/25/22 Therapeutic Interventions Therapeutic Interventions Balance Training,Gait Training ,Home Exercise Program,Manual Therapy,Patient/Caregiver Education,Self-Care/Home Management,Soft Tissue Mobilization,Taping, Therapeutic Activities, Therapeutic Exercises Modalities Cold Pack/Ice Massage,Hot Packs Next Visit Focus/Plan Next Note Type Treatment Note Next Visit Plan Start with Biodex, review HEP. Gentle progression of strengthening, balance training, and gait training Plan of Care Dates Plan of Care Start Date 09/25/22 Plan of Care End Date 11/25/22 Electronically Signed by: Smiley Goldman, PT 09/29/22 [id number] If you are in agreement with this Plan of Care, please return a signed and dated copy. I have reviewed this Plan of Care and certify that the skilled therapy services above are required to meet the patient?s needs. Physician Signature Date Printed Name and Credentials Clinical Instructor Signature Printed Name and Credentials
--- NOTE | 2022-09-25 11:56 | PT.OIE ---
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 principal developer associated with adverse incidents (~2011) Morbid obesity Narcotic habituation, continuous Nocturnal hypoxemia Obstipation LYLA (obstructive sleep apnea) Ovarian cyst Plantar fasciitis Psychogenic nonepileptic seizure Pulmonary embolism RBBB (right bundle branch block) Sinus tachycardia Status post laminectomy (12/14/15) Suicide attempt Tobacco abuse Tylenol overdose Urinary retention Past Surgical History (Last Reviewed 07/28/22 @ 14:16 by Christine Cleveland RN) History of carpal tunnel repair (~10/30/14) History of colonoscopy History of esophagogastroduodenoscopy (EGD) History of laminectomy History of laminectomy (~09/2016) History of lumbar spinal fusion (12/22/18) Hx of toe surgery (05/16/20) S/P epidural steroid injection (11/2013) Status post dilation and curettage (2008) Visit Care Team Role Provider Type Alejandra Lynch MD Attending Provider Physician Family Provider Primary Care Provider Referring Provider Specialty: [facility] Practice Address: [address] [place] [address], [facility] Email: [email or web address] Physical Therapy Initial Evaluation PT-OP-A Visit Information Start: 09/25/22 13:16 Freq: Status: Active Protocol: Document 09/25/22 13:16 JUMA (Rec: 09/25/22 14:04 JUMA [id number]) Out-Patient Physical Therapy Visit Information Visit Information Visit Type Initial Evaluation Visit Start Time 13:17 Visit Stop Time 14:00 Total Visit Minutes 43 Visit Number 1 Evaluation Information Evaluation Date 09/25/22 Precautions Precautions recent abdominal surgery; hysterectomy 09/08/22 PT-OP-B Current Condition Start: 09/25/22 13:16 Freq: Status: Active Protocol: Document 09/25/22 13:16 [facility] (Rec: 09/25/22 14:04 [facility] [id number]) Current Condition History of Current Condition Onset Date January 2022 Current Complaints balance and walking difficulty History of Current Condition Started getting dizzy and wobbly while walking and when moving from sitting to standing. Using 4WW since January 2022 indoors and outdoors due to fear of falling. W/c for longer distancesPrior to surgery rides recumbant ex bike 45 min per day and lifting weights a few times per day. Not a lot of walking due to fear of falling. Reports high heart rate as high as 125. BP stable with change in positions. Taking Meclazine up to 3x/day with a small amount of improvement. Dizziness worse if not getting enough rest. Reports anterior thigh numbness x 5 days (Dr. Lynch sending pt to someone to check out her veins.) Also c /o elier LE swelling since surgery with 1 episode of reddening color of legs. Diabetic neuropathy elier feet. Needs help on stairs. Prior Treatments and Tests CT neg Future Testing and Treatments Planned Seeing director quality systems 10/14/22 Treatment Goals Patient/Caregiver Goals Improve balance and ability to walk, decrease dizziness. Prior Functional Status Baseline Function- ADL's Independent Baseline Function- Mobility Independent Baseline Function- Gait independent, no device Current Functional Impairments (Reported) Functional Limitations- ADL's shower chair; getting walk-in bathtub. Functional Limitations- Mobility/Gait 4WW, limited distance Functional Limitations- Recreation/ unable Hobbies Personal Factors Other Personal Factors That May Effect recent hysterectomy Therapy/Recovery panic attacks PT-OP-C Subjective Start: 09/25/22 13:16 Freq: Status: Active Protocol: Document 09/25/22 13:16 [facility] (Rec: 09/29/22 11:54 [facility] [id number]) OP-PT Pain Assessment Pain Assessment Grid Paper Pain Assessment Grid Completed Yes Location neck Intensity 5 abdomen and low back Intensity 4 PT-OP-D Balance Start: 09/25/22 13:16 Freq: Status: Active Protocol: Document 09/25/22 13:16 SAK (Rec: 09/25/22 14:04 [facility] [id number]) Graham Balance Assessment Evaluation Sitting to Standing Ability Independent w/Hands Unsupported Stance Supervision- 2 minutes Sitting Unsupported, Feet on Floor Safely- 2 minutes Standing to Sitting Ability Assist, Control w/Hands Transfer Ability Safely, Hand Use Unsupported Stance- Eyes Closed Supervision, 10 seconds Unsupported Stance- Eyes Open Supervision to maintain Reaching Forward Standing Safely, 5 inches Pick- Up Object From Floor Supervision Look Behind Shoulder - Standing Supervision w/Turning Turning 360 Degrees Supervision/Verbal Cues Unsupported Stance, Alternating Feet on 2 Steps w/Minimum Assist Stair Unsupported Tandem Stance Assist to Step-15 seconds Unilateral Leg Stance Lifts Leg/Unable to Hold Total Score Graham Total Score (out of 56 points) 33 Tinetti Balance Assessment Sitting Balance Sitting Balance Steady, safe Arising from Chair Attempts to Arise Arises on 1st attempt Standing Balance Immediate Standing Balance Steady with support Standing Balance Steady, wide stance Nudged Response Staggers, catches self Standing with Eyes Closed Steady Turning Step Pattern Turning 360 Degrees Discontinuous steps Sitting Down Sitting Down Uses arms or unsteady Gait and Step Initiation of Gait Hesitancy, mult. attempts Right Foot Step Length Does not pass stance ft. Right Foot Step Height Does not clear floor Left Foot Step Length Does not pass stance foot Left Foot Step Height Does not clear floor Step Description Step Symmetry Step length appears equal Step Continuity Stopping or discontinuity Scoring and Interpretation Tinetti Composite Score (points) 9 PT-OP-G Mobility & Gait Start: 09/25/22 13:16 Freq: Status: Active Protocol: Document 09/25/22 13:16 [facility] (Rec: 09/29/22 11:54 [facility] [id number]) OP Gait Assessment Gait Gait Assistance Required: Standby Assistance Distance (Feet) 60 Able to Maintain Weight Bearing Status Yes During Gait Assistive Devices Assistive Device 4 Wheeled Walker Gait Deviations General Gait Pattern Decreased Stride Length, Decreased Feet Clearance, Flexed Trunk Factors Limiting Gait Function Factors Limiting Gait Function Decreased Activity Tolerance, Decreased Strength,Pain PT-OP-H Neuro Start: 09/25/22 13:16 Freq: Status: Active Protocol: Document 09/25/22 13:16 [facility] (Rec: 09/29/22 11:54 [facility] [id number]) Sensation Evaluation Gross Sensation Gross Sensation WNL Vital Signs Blood Pressure Standing Blood Pressure (90/60-120/80 mmHg) 90/60 Blood Pressure Source Manual Cuff,Left Upper Extremity Sitting Blood Pressure (90/60-120/80 mmHg) 122/82 H Blood Pressure Source Manual Cuff,Left Upper Extremity PT-OP-K Range of Motion Start: 09/25/22 13:16 Freq: Status: Active Protocol: Document 09/25/22 13:16 SAK (Rec: 09/29/22 11:54 [facility] [id number]) Shoulder Goniometric Range of Motion Shoulder elier Shoulder ROM WFL Yes Hip Goniometric Range of Motion Hip elier Hip ROM WFL Yes Knee Goniometric Range of Motion Knee elier Knee ROM WFL Yes Ankle and Foot Goniometric Range of Motion Ankle and Foot elier Ankle/Foot ROM WFL Yes PT-OP-M Strength Start: 09/25/22 13:16 Freq: Status: Active Protocol: Document 09/25/22 13:16 [facility] (Rec: 09/29/22 11:54 [facility] [id number]) Hip Strength Hip Manual Muscle Testing elier Comments NT due to recent abdominal surgery Knee Strength Knee Manual Muscle Testing elier Flexion (S2) 4- Good- Extension (L3) 4- Good- Ankle/Foot Strength Ankle and Foot Manual Muscle Testing elier Dorsiflexion (L4) 4- Good- Plantarflexion (S1) 4- Good- PT-OP-Q Treatments Start: 09/25/22 13:16 Freq: Status: Active Protocol: Document 09/25/22 13:16 [facility] (Rec: 09/29/22 11:54 [facility] [id number]) Self-Care/Home Management Treatment Education Patient Education Fall Risk,Home Exercise Program,Pain Management,Safety Other Education education regarding drop in BP upon standing, need to do some gentle AROM of arms and/ or legs prior to getting up to see if helps with dizziness PT-OP-T Assessment and Plan Start: 09/25/22 13:16 Freq: Status: Active Protocol: Document 09/25/22 13:16 [facility] (Rec: 09/25/22 14:04 [facility] [id number]) Physical Therapy Assessment Other Concerns Barriers to Rehabilitation extensive PMH:Medical History Acetaminophen overdose of undetermined intent (12/2015) Alcoholism 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 Asthma Cubital tunnel syndrome DM type 2 (diabetes mellitus, type 2) DVT (deep venous thrombosis) Essential hypertension Fibromyalgia (10/09/15) Hypoxia Intraoperative cardiac arrest during non-cardiac surgery () 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 principal developer associated with adverse incidents (~2011) Morbid obesity Narcotic habituation, continuous Nocturnal hypoxemia Obstipation LYLA (obstructive sleep apnea) Ovarian cyst Plantar fasciitis Psychogenic nonepileptic seizure Pulmonary embolism RBBB (right bundle branch block) Sinus tachycardia Status post laminectomy (12/13) Suicide attempt Tobacco abuse Tylenol overdose Urinary retention Surgical History (Reviewed 11/14 @ 14:16 by Christine Cleveland RN) History of carpal tunnel repair (~10/30/14) History of colonoscopy History of esophagogastroduodenoscopy ( EGD) History of laminectomy History of laminectomy (~2016) History of lumbar spinal fusion (12/22/18) Hx of toe surgery (05/16/20) S/P epidural steroid injection (11/2013) Status post dilation and curettage (2008) Goals Three Impairment gait dysfunction Impairment uses 4WW for gait Short Term Goal (STG) Patient able to ambulate within the home with SPC safely STG Duration 10/26/22 Frame Table Operator Helper Goal (LTG) Patient will be able to ambulate in the community safely using least restrictive device LTG Duration 11/25/22 weakness Impairment weakness throughout body Impairment MMT not done due to recent surgery Short Term Goal (STG) Patient to be instructed in HEP for general strengthening STG Duration 10/26/22 Intermediate Goal (LTG) Patient to be independent and compliant with HEP and demonstrate muscle strength of at least 4/5 throughout UE's, LE's, and trunk LTG Duration 11/25/22 Two Impairment intolerance to activity Short Term Goal (STG) Patient will be able to tolerate standing or walking for at least 15 min without excess fatigue STG Duration 10/26/22 Frame Table Operator Helper Goal (LTG) Patient will be able to tolerate standing or walking for at least 30 min to allow her to return to doing household and community activities LTG Duration 11/25/22 One Impairment balance dysfunction Impairment Graham Balance score 33/56 Tinetti gait and balance assessment score 9/28 (high risk for falls) Short Term Goal (STG) Improve Graham Balance score to at least 43/56 and Tinneti score to at least 19/28 STG Duration 10/26/22 Frame Table Operator Helper Goal (LTG) Improve Graham Balance score to at least 50/56 and Tinneti score to at least 25/28 as measure of improved safety with mobility LTG Duration 11/25/22 Assessment Summary Assessment Patient presents to PT with c/ o decreased balance, weakness and fear of falling, and dizziness since January 2022 for unknown reason. Patient currently uses 4WW for gait. Patient has complicated medical history including 4 spinal surgeries, diabetic neuropathy, cardiac issues with current tachycardia, LE edema. BP sitting 122/82, standing 90/74. Patient had hysterectomy 09/08/22, has no precautions from physician but is concerned about over doing it. States activity level is very low, she feels weak. MMT limited due to recent surgery but patient has antigravity strength in hips, knees, and left ankle, lacking full active df right ankle. Graham balance score 33/56, at high risk for falls. Feel patient will benefit from PT for gentle strengthening, balance training, gait training. POC was discussed and she was in agreement. Full PMH and surgical history: Medical History Acetaminophen overdose of undetermined intent (12/2015) Alcoholism 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 Asthma Cubital tunnel syndrome DM type 2 (diabetes mellitus, type 2) DVT (deep venous thrombosis) Essential hypertension Fibromyalgia (03/02/15) Hypoxia Intraoperative cardiac arrest during non-cardiac surgery () 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 principal developer associated with adverse incidents (~2011) Morbid obesity Narcotic habituation, continuous Nocturnal hypoxemia Obstipation LYLA (obstructive sleep apnea) Ovarian cyst Plantar fasciitis Psychogenic nonepileptic seizure Pulmonary embolism RBBB (right bundle branch block) Sinus tachycardia Status post laminectomy (12/13) Suicide attempt Tobacco abuse Tylenol overdose Urinary retention Surgical History (Reviewed 11/14 @ 14:16 by Christine Cleveland RN) History of carpal tunnel repair (~10/30/14) History of colonoscopy History of esophagogastroduodenoscopy ( EGD) History of laminectomy History of laminectomy (~2016) History of lumbar spinal fusion (12/22/18) Hx of toe surgery (05/16/20) S/P epidural steroid injection (11/2013) Status post dilation and curettage (2008) Physical Therapy Plan Frequency and Duration Frequency of Treatment 2x/Week Duration of treatment (weeks) 8 Plan of Care Start Date 09/25/22 Plan of Care End Date 11/25/22 Therapeutic Interventions Therapeutic Interventions Balance Training,Gait Training ,Home Exercise Program,Manual Therapy,Patient/Caregiver Education,Self-Care/Home Management,Soft Tissue Mobilization,Taping, Therapeutic Activities, Therapeutic Exercises Modalities Cold Pack/Ice Massage,Hot Packs Next Visit Focus/Plan Next Note Type Treatment Note Next Visit Plan Start with Biodex, review HEP. Gentle progression of strengthening, balance training, and gait training
[2022-09-25 13:16] VITALS: BP 122/82; BP 90/60
--- NOTE | 2022-10-15 09:24 | PT-OP ANOTE ---
patient cancelled due to ill.
--- NOTE | 2022-10-28 15:03 | PT.OTN ---
Current Diagnoses Other abnormalities of gait and mobility (10/28/22) Dizziness and giddiness (10/28/22) Weakness (10/28/22) Physical Therapy Treatment Note PT-OP-A Visit Information Start: 09/25/22 13:16 Freq: Status: Active Protocol: Document 10/28/22 14:15 DCW (Rec: 10/28/22 15:02 DCW [id number]) Out-Patient Physical Therapy Visit Information Visit Information Visit Type Treatment Note Visit Start Time 14:15 Visit Stop Time 15:00 Total Visit Minutes 45 Visit Number 2 Number of CLINICAL SECRETARY Visits 0 Evaluation Information Evaluation Date 09/25/22 Precautions Precautions recent abdominal surgery; hysterectomy 09/08/22 PT-OP-B Current Condition Start: 09/25/22 13:16 Freq: Status: Active Protocol: Document 09/25/22 13:16 SAK (Rec: 09/25/22 14:04 SAK [id number]) Current Condition History of Current Condition Onset Date January 2022 Current Complaints balance and walking difficulty History of Current Condition Started getting dizzy and wobbly while walking and when moving from sitting to standing. Using 4WW since January 2022 indoors and outdoors due to fear of falling. W/c for longer distancesPrior to surgery rides recumbant ex bike 45 min per day and lifting weights a few times per day. Not a lot of walking due to fear of falling. Reports high heart rate as high as 125. BP stable with change in positions. Taking Meclazine up to 3x/day with a small amount of improvement. Dizziness worse if not getting enough rest. Reports anterior thigh numbness x 5 days (Dr. Lynch sending pt to someone to check out her veins.) Also c /o elier LE swelling since surgery with 1 episode of reddening color of legs. Diabetic neuropathy elier feet. Needs help on stairs. Prior Treatments and Tests CT neg Future Testing and Treatments Planned Seeing reconstructive surgeon 10/14/22 Treatment Goals Patient/Caregiver Goals Improve balance and ability to walk, decrease dizziness. Prior Functional Status Baseline Function- ADL's Independent Baseline Function- Mobility Independent Baseline Function- Gait independent, no device Current Functional Impairments (Reported) Functional Limitations- ADL's shower chair; getting walk-in bathtub. Functional Limitations- Mobility/Gait 4WW, limited distance Functional Limitations- Recreation/ unable Hobbies Personal Factors Other Personal Factors That May Effect recent hysterectomy Therapy/Recovery panic attacks PT-OP-C Subjective Start: 09/25/22 13:16 Freq: Status: Active Protocol: Document 10/28/22 14:15 DCW (Rec: 10/28/22 15:02 DCW [id number]) OP-PT Subjective Patient Comments Patient Comments Pt reports over the weekend, she was experiencing some vertigo making the room spin. Notes she was sitting on a chair, stood up, and everything started to spin. PT-OP-D Balance Start: 09/25/22 13:16 Freq: Status: Active Protocol: Document 09/25/22 13:16 SAK (Rec: 09/25/22 14:04 SAK [id number]) Graham Balance Assessment Evaluation Sitting to Standing Ability Independent w/Hands Unsupported Stance Supervision- 2 minutes Sitting Unsupported, Feet on Floor Safely- 2 minutes Standing to Sitting Ability Assist, Control w/Hands Transfer Ability Safely, Hand Use Unsupported Stance- Eyes Closed Supervision, 10 seconds Unsupported Stance- Eyes Open Supervision to maintain Reaching Forward Standing Safely, 5 inches Pick- Up Object From Floor Supervision Look Behind Shoulder - Standing Supervision w/Turning Turning 360 Degrees Supervision/Verbal Cues Unsupported Stance, Alternating Feet on 2 Steps w/Minimum Assist Stair Unsupported Tandem Stance Assist to Step-15 seconds Unilateral Leg Stance Lifts Leg/Unable to Hold Total Score Graham Total Score (out of 56 points) 33 Tinetti Balance Assessment Sitting Balance Sitting Balance Steady, safe Arising from Chair Attempts to Arise Arises on 1st attempt Standing Balance Immediate Standing Balance Steady with support Standing Balance Steady, wide stance Nudged Response Staggers, catches self Standing with Eyes Closed Steady Turning Step Pattern Turning 360 Degrees Discontinuous steps Sitting Down Sitting Down Uses arms or unsteady Gait and Step Initiation of Gait Hesitancy, mult. attempts Right Foot Step Length Does not pass stance ft. Right Foot Step Height Does not clear floor Left Foot Step Length Does not pass stance foot Left Foot Step Height Does not clear floor Step Description Step Symmetry Step length appears equal Step Continuity Stopping or discontinuity Scoring and Interpretation Tinetti Composite Score (points) 9 PT-OP-G Mobility & Gait Start: 09/25/22 13:16 Freq: Status: Active Protocol: Document 09/25/22 13:16 SAK (Rec: 09/29/22 11:54 SAK [id number]) OP Gait Assessment Gait Gait Assistance Required: Standby Assistance Distance (Feet) 60 Able to Maintain Weight Bearing Status Yes During Gait Assistive Devices Assistive Device 4 Wheeled Walker Gait Deviations General Gait Pattern Decreased Stride Length, Decreased Feet Clearance, Flexed Trunk Factors Limiting Gait Function Factors Limiting Gait Function Decreased Activity Tolerance, Decreased Strength,Pain PT-OP-H Neuro Start: 09/25/22 13:16 Freq: Status: Active Protocol: Document 09/25/22 13:16 [facility] (Rec: 09/29/22 11:54 [facility] [id number]) Sensation Evaluation Gross Sensation Gross Sensation WNL Vital Signs Blood Pressure Standing Blood Pressure (90/60-120/80 mmHg) 90/60 Blood Pressure Source Manual Cuff,Left Upper Extremity Sitting Blood Pressure (90/60-120/80 mmHg) 122/82 H Blood Pressure Source Manual Cuff,Left Upper Extremity PT-OP-K Range of Motion Start: 09/25/22 13:16 Freq: Status: Active Protocol: Document 09/25/22 13:16 [facility] (Rec: 09/29/22 11:54 [facility] [id number]) Shoulder Goniometric Range of Motion Shoulder elier Shoulder ROM WFL Yes Hip Goniometric Range of Motion Hip elier Hip ROM WFL Yes Knee Goniometric Range of Motion Knee elier Knee ROM WFL Yes Ankle and Foot Goniometric Range of Motion Ankle and Foot elier Ankle/Foot ROM WFL Yes PT-OP-M Strength Start: 09/25/22 13:16 Freq: Status: Active Protocol: Document 09/25/22 13:16 [facility] (Rec: 09/29/22 11:54 [facility] [id number]) Hip Strength Hip Manual Muscle Testing elier Comments NT due to recent abdominal surgery Knee Strength Knee Manual Muscle Testing elier Flexion (S2) 4- Good- Extension (L3) 4- Good- Ankle/Foot Strength Ankle and Foot Manual Muscle Testing elier Dorsiflexion (L4) 4- Good- Plantarflexion (S1) 4- Good- PT-OP-Q Treatments Start: 09/25/22 13:16 Freq: Status: Active Protocol: Document 10/28/22 14:15 DCW (Rec: 10/28/22 15:02 DCW [id number]) Cardio Equipment Recumbent Elliptical ([employer]) Duration (Minutes) 6 Resistance 3 Seat Position 7 Gym Equipment Shuttle Recovery Unilateral Squats Resistance 37# Shuttle Recovery Platform Stable Bilateral Squats Resistance 75# Shuttle Recovery Platform Stable Therapeutic Exercises Sidelying Exercises Reverse Clamshell Sidelying Exercise Name Reverse Clamshell Side bilateral Clamshell Sidelying Exercise Name Clamshell Side bilateral Sitting Exercises Marching Sitting Exercise Name Seated Marching Side bilateral Resistance 5# LAQ Sitting Exercise Name LAQ Side bilateral Resistance 5# Hip Abduction Sitting Exercise Name Abduction Side bilateral Resistance [place] Hamstring Curls Sitting Exercise Name HS curls Side bilateral Resistance [place] Neuro Re-Education Treatment Balance Activities Tilt Board Details Lateral weight shift Foam Stance Details DL foam stance Surface Blue foam Tandem Details Tandem Stance Equipment // bars PT-OP-T Assessment and Plan Start: 09/25/22 13:16 Freq: Status: Active Protocol: Document 10/28/22 14:15 DCW (Rec: 10/28/22 15:02 DCW [id number]) Physical Therapy Assessment Goals Three Impairment gait dysfunction Impairment uses 4WW for gait Short Term Goal (STG) Patient able to ambulate within the home with SPC safely STG Duration 10/26/22 Senior Living Goal (LTG) Patient will be able to ambulate in the community safely using least restrictive device LTG Duration 11/25/22 weakness Impairment weakness throughout body Impairment MMT not done due to recent surgery Short Term Goal (STG) Patient to be instructed in HEP for general strengthening STG Duration 10/26/22 Senior Living Goal (LTG) Patient to be independent and compliant with HEP and demonstrate muscle strength of at least 4/5 throughout UE's, LE's, and trunk LTG Duration 11/25/22 Two Impairment intolerance to activity Short Term Goal (STG) Patient will be able to tolerate standing or walking for at least 15 min without excess fatigue STG Duration 10/26/22 Senior Living Goal (LTG) Patient will be able to tolerate standing or walking for at least 30 min to allow her to return to doing household and community activities LTG Duration 11/25/22 One Impairment balance dysfunction Impairment Graham Balance score 33/56 Tinetti gait and balance assessment score 9/28 (high risk for falls) Short Term Goal (STG) Improve Graham Balance score to at least 43/56 and Tinneti score to at least 19/28 STG Duration 10/26/22 Senior Living Goal (LTG) Improve Graham Balance score to at least 50/56 and Tinneti score to at least 25/28 as measure of improved safety with mobility LTG Duration 11/25/22 Assessment Summary Assessment Pt put in good effort to treatment today, focused on gentle strengthening and balance training. Pt did not have any instances of dizziness or vertigo with positional changes. Physical Therapy Plan Frequency and Duration Frequency of Treatment 2x/Week Duration of treatment (weeks) 8 Plan of Care Start Date 09/25/22 Plan of Care End Date 11/25/22 Therapeutic Interventions Therapeutic Interventions Balance Training,Gait Training ,Home Exercise Program,Manual Therapy,Patient/Caregiver Education,Self-Care/Home Management,Soft Tissue Mobilization,Taping, Therapeutic Activities, Therapeutic Exercises Modalities Cold Pack/Ice Massage,Hot Packs Next Visit Focus/Plan Next Note Type Treatment Note Next Visit Plan Start with Biodex, review HEP. Gentle progression of strengthening, balance training, and gait training
--- NOTE | 2022-11-05 14:45 | PT.OTN ---
Current Diagnoses Other abnormalities of gait and mobility (11/05/22) Dizziness and giddiness (11/05/22) Weakness (11/05/22) Physical Therapy Treatment Note PT-OP-A Visit Information Start: 09/25/22 13:16 Freq: Status: Active Protocol: Document 11/05/22 14:04 DCW (Rec: 11/05/22 14:45 DCW [id number]) Out-Patient Physical Therapy Visit Information Visit Information Visit Type Treatment Note Visit Start Time 14:04 Visit Stop Time 14:45 Total Visit Minutes 41 Visit Number 3 Number of SET UP [employer] Visits 0 Evaluation Information Evaluation Date 09/25/22 Precautions Precautions recent abdominal surgery; hysterectomy 09/08/22 PT-OP-B Current Condition Start: 09/25/22 13:16 Freq: Status: Active Protocol: Document 09/25/22 13:16 SAK (Rec: 09/25/22 14:04 SAK [id number]) Current Condition History of Current Condition Onset Date January 2022 Current Complaints balance and walking difficulty History of Current Condition Started getting dizzy and wobbly while walking and when moving from sitting to standing. Using 4WW since January 2022 indoors and outdoors due to fear of falling. W/c for longer distancesPrior to surgery rides recumbant ex bike 45 min per day and lifting weights a few times per day. Not a lot of walking due to fear of falling. Reports high heart rate as high as 125. BP stable with change in positions. Taking Meclazine up to 3x/day with a small amount of improvement. Dizziness worse if not getting enough rest. Reports anterior thigh numbness x 5 days (Dr. Lynch sending pt to someone to check out her veins.) Also c /o elier LE swelling since surgery with 1 episode of reddening color of legs. Diabetic neuropathy elier feet. Needs help on stairs. Prior Treatments and Tests CT neg Future Testing and Treatments Planned Seeing paediatric surgeon 10/14/22 Treatment Goals Patient/Caregiver Goals Improve balance and ability to walk, decrease dizziness. Prior Functional Status Baseline Function- ADL's Independent Baseline Function- Mobility Independent Baseline Function- Gait independent, no device Current Functional Impairments (Reported) Functional Limitations- ADL's shower chair; getting walk-in bathtub. Functional Limitations- Mobility/Gait 4WW, limited distance Functional Limitations- Recreation/ unable Hobbies Personal Factors Other Personal Factors That May Effect recent hysterectomy Therapy/Recovery panic attacks PT-OP-C Subjective Start: 09/25/22 13:16 Freq: Status: Active Protocol: Document 11/05/22 14:04 DCW (Rec: 11/05/22 14:45 DCW [id number]) OP-PT Subjective Patient Comments Patient Comments I felt pretty good after last time, so I think we can try to push it a little bit harder this time. PT-OP-D Balance Start: 09/25/22 13:16 Freq: Status: Active Protocol: Document 09/25/22 13:16 SAK (Rec: 09/25/22 14:04 SAK [id number]) Graham Balance Assessment Evaluation Sitting to Standing Ability Independent w/Hands Unsupported Stance Supervision- 2 minutes Sitting Unsupported, Feet on Floor Safely- 2 minutes Standing to Sitting Ability Assist, Control w/Hands Transfer Ability Safely, Hand Use Unsupported Stance- Eyes Closed Supervision, 10 seconds Unsupported Stance- Eyes Open Supervision to maintain Reaching Forward Standing Safely, 5 inches Pick- Up Object From Floor Supervision Look Behind Shoulder - Standing Supervision w/Turning Turning 360 Degrees Supervision/Verbal Cues Unsupported Stance, Alternating Feet on 2 Steps w/Minimum Assist Stair Unsupported Tandem Stance Assist to Step-15 seconds Unilateral Leg Stance Lifts Leg/Unable to Hold Total Score Graham Total Score (out of 56 points) 33 Tinetti Balance Assessment Sitting Balance Sitting Balance Steady, safe Arising from Chair Attempts to Arise Arises on 1st attempt Standing Balance Immediate Standing Balance Steady with support Standing Balance Steady, wide stance Nudged Response Staggers, catches self Standing with Eyes Closed Steady Turning Step Pattern Turning 360 Degrees Discontinuous steps Sitting Down Sitting Down Uses arms or unsteady Gait and Step Initiation of Gait Hesitancy, mult. attempts Right Foot Step Length Does not pass stance ft. Right Foot Step Height Does not clear floor Left Foot Step Length Does not pass stance foot Left Foot Step Height Does not clear floor Step Description Step Symmetry Step length appears equal Step Continuity Stopping or discontinuity Scoring and Interpretation Tinetti Composite Score (points) 9 PT-OP-G Mobility & Gait Start: 09/25/22 13:16 Freq: Status: Active Protocol: Document 09/25/22 13:16 SAK (Rec: 09/29/22 11:54 SAK [id number]) OP Gait Assessment Gait Gait Assistance Required: Standby Assistance Distance (Feet) 60 Able to Maintain Weight Bearing Status Yes During Gait Assistive Devices Assistive Device 4 Wheeled Walker Gait Deviations General Gait Pattern Decreased Stride Length, Decreased Feet Clearance, Flexed Trunk Factors Limiting Gait Function Factors Limiting Gait Function Decreased Activity Tolerance, Decreased Strength,Pain PT-OP-H Neuro Start: 09/25/22 13:16 Freq: Status: Active Protocol: Document 09/25/22 13:16 [facility] (Rec: 09/29/22 11:54 [facility] [id number]) Sensation Evaluation Gross Sensation Gross Sensation WNL Vital Signs Blood Pressure Standing Blood Pressure (90/60-120/80 mmHg) 90/60 Blood Pressure Source Manual Cuff,Left Upper Extremity Sitting Blood Pressure (90/60-120/80 mmHg) 122/82 H Blood Pressure Source Manual Cuff,Left Upper Extremity PT-OP-K Range of Motion Start: 09/25/22 13:16 Freq: Status: Active Protocol: Document 09/25/22 13:16 SAK (Rec: 09/29/22 11:54 [facility] [id number]) Shoulder Goniometric Range of Motion Shoulder elier Shoulder ROM WFL Yes Hip Goniometric Range of Motion Hip elier Hip ROM WFL Yes Knee Goniometric Range of Motion Knee elier Knee ROM WFL Yes Ankle and Foot Goniometric Range of Motion Ankle and Foot elier Ankle/Foot ROM WFL Yes PT-OP-M Strength Start: 09/25/22 13:16 Freq: Status: Active Protocol: Document 09/25/22 13:16 [facility] (Rec: 09/29/22 11:54 [facility] [id number]) Hip Strength Hip Manual Muscle Testing elier Comments NT due to recent abdominal surgery Knee Strength Knee Manual Muscle Testing elier Flexion (S2) 4- Good- Extension (L3) 4- Good- Ankle/Foot Strength Ankle and Foot Manual Muscle Testing elier Dorsiflexion (L4) 4- Good- Plantarflexion (S1) 4- Good- PT-OP-Q Treatments Start: 09/25/22 13:16 Freq: Status: Active Protocol: Document 11/05/22 14:04 DCW (Rec: 11/05/22 14:45 DCW [id number]) Cardio Equipment Recumbent Elliptical ([employer]) Duration (Minutes) 6 Resistance 3 Seat Position 10 Gym Equipment Shuttle Recovery Unilateral Squats Resistance 37# (one new) Shuttle Recovery Platform Stable Reps/Time x20 Bilateral Squats Resistance 100# (one new) Shuttle Recovery Platform Stable Reps/Time x20 Shuttle Balance Red Details WBOS, Staggered Therapeutic Exercises Standing Exercises Toe-taps Standing Exercise Name Toe-taps Side bilateral Resistance 2# Equipment Used 6 step Other Exercises Resisted Ambulation Other Exercise Name Side-stepping Side bilateral Resistance Red Neuro Re-Education Treatment Balance Activities Tilt Board Details Lateral weight shift PT-OP-T Assessment and Plan Start: 09/25/22 13:16 Freq: Status: Active Protocol: Document 11/05/22 14:04 DCW (Rec: 11/05/22 14:45 DCW [id number]) Physical Therapy Assessment Goals Three Impairment gait dysfunction Impairment uses 4WW for gait Short Term Goal (STG) Patient able to ambulate within the home with SPC safely STG Duration 10/26/22 Mcfp Goal (LTG) Patient will be able to ambulate in the community safely using least restrictive device LTG Duration 11/25/22 weakness Impairment weakness throughout body Impairment MMT not done due to recent surgery Short Term Goal (STG) Patient to be instructed in HEP for general strengthening STG Duration 10/26/22 Meat Boner Goal (LTG) Patient to be independent and compliant with HEP and demonstrate muscle strength of at least 4/5 throughout UE's, LE's, and trunk LTG Duration 11/25/22 Two Impairment intolerance to activity Short Term Goal (STG) Patient will be able to tolerate standing or walking for at least 15 min without excess fatigue STG Duration 10/26/22 Mcfp Goal (LTG) Patient will be able to tolerate standing or walking for at least 30 min to allow her to return to doing household and community activities LTG Duration 11/25/22 One Impairment balance dysfunction Impairment Graham Balance score 33/56 Tinetti gait and balance assessment score 9/28 (high risk for falls) Short Term Goal (STG) Improve Graham Balance score to at least 43/56 and Tinneti score to at least 19/28 STG Duration 10/26/22 Meat Boner Goal (LTG) Improve Graham Balance score to at least 50/56 and Tinneti score to at least 25/28 as measure of improved safety with mobility LTG Duration 11/25/22 Assessment Summary Assessment Attempted to increase pt workload today, increased balance challenges as well as resistance on leg press. Pt tolerated well, did feel uncomfortable on shuttle balance and with resisted side -stepping due to heightened fear of falling. Physical Therapy Plan Frequency and Duration Frequency of Treatment 2x/Week Duration of treatment (weeks) 8 Plan of Care Start Date 09/25/22 Plan of Care End Date 11/25/22 Therapeutic Interventions Therapeutic Interventions Balance Training,Gait Training ,Home Exercise Program,Manual Therapy,Patient/Caregiver Education,Self-Care/Home Management,Soft Tissue Mobilization,Taping, Therapeutic Activities, Therapeutic Exercises Modalities Cold Pack/Ice Massage,Hot Packs Next Visit Focus/Plan Next Note Type Treatment Note Next Visit Plan Start with Biodex, review HEP. Gentle progression of strengthening, balance training, and gait training
--- NOTE | 2022-11-11 14:42 | PT.OTN ---
Current Diagnoses Other abnormalities of gait and mobility (11/11/22) Dizziness and giddiness (11/11/22) Weakness (11/11/22) Physical Therapy Treatment Note PT-OP-A Visit Information Start: 09/25/22 13:16 Freq: Status: Active Protocol: Document 11/11/22 14:00 DCW (Rec: 11/11/22 14:42 DCW [id number]) Out-Patient Physical Therapy Visit Information Visit Information Visit Type Treatment Note Visit Start Time 14:00 Visit Stop Time 14:45 Total Visit Minutes 45 Visit Number 4 Number of BENCH CARPENTER Visits 0 Evaluation Information Evaluation Date 09/25/22 Precautions Precautions recent abdominal surgery; hysterectomy 09/08/22 PT-OP-B Current Condition Start: 09/25/22 13:16 Freq: Status: Active Protocol: Document 09/25/22 13:16 SAK (Rec: 09/25/22 14:04 SAK [id number]) Current Condition History of Current Condition Onset Date January 2022 Current Complaints balance and walking difficulty History of Current Condition Started getting dizzy and wobbly while walking and when moving from sitting to standing. Using 4WW since January 2022 indoors and outdoors due to fear of falling. W/c for longer distancesPrior to surgery rides recumbant ex bike 45 min per day and lifting weights a few times per day. Not a lot of walking due to fear of falling. Reports high heart rate as high as 125. BP stable with change in positions. Taking Meclazine up to 3x/day with a small amount of improvement. Dizziness worse if not getting enough rest. Reports anterior thigh numbness x 5 days (Dr. Lynch sending pt to someone to check out her veins.) Also c /o elier LE swelling since surgery with 1 episode of reddening color of legs. Diabetic neuropathy elier feet. Needs help on stairs. Prior Treatments and Tests CT neg Future Testing and Treatments Planned Seeing jack setter 10/14/22 Treatment Goals Patient/Caregiver Goals Improve balance and ability to walk, decrease dizziness. Prior Functional Status Baseline Function- ADL's Independent Baseline Function- Mobility Independent Baseline Function- Gait independent, no device Current Functional Impairments (Reported) Functional Limitations- ADL's shower chair; getting walk-in bathtub. Functional Limitations- Mobility/Gait 4WW, limited distance Functional Limitations- Recreation/ unable Hobbies Personal Factors Other Personal Factors That May Effect recent hysterectomy Therapy/Recovery panic attacks PT-OP-C Subjective Start: 09/25/22 13:16 Freq: Status: Active Protocol: Document 11/11/22 14:00 DCW (Rec: 11/11/22 14:42 DCW [id number]) OP-PT Subjective Patient Comments Patient Comments Pt continues to feel well. PT-OP-D Balance Start: 09/25/22 13:16 Freq: Status: Active Protocol: Document 09/25/22 13:16 SAK (Rec: 09/25/22 14:04 SAK [id number]) Graham Balance Assessment Evaluation Sitting to Standing Ability Independent w/Hands Unsupported Stance Supervision- 2 minutes Sitting Unsupported, Feet on Floor Safely- 2 minutes Standing to Sitting Ability Assist, Control w/Hands Transfer Ability Safely, Hand Use Unsupported Stance- Eyes Closed Supervision, 10 seconds Unsupported Stance- Eyes Open Supervision to maintain Reaching Forward Standing Safely, 5 inches Pick- Up Object From Floor Supervision Look Behind Shoulder - Standing Supervision w/Turning Turning 360 Degrees Supervision/Verbal Cues Unsupported Stance, Alternating Feet on 2 Steps w/Minimum Assist Stair Unsupported Tandem Stance Assist to Step-15 seconds Unilateral Leg Stance Lifts Leg/Unable to Hold Total Score Graham Total Score (out of 56 points) 33 Tinetti Balance Assessment Sitting Balance Sitting Balance Steady, safe Arising from Chair Attempts to Arise Arises on 1st attempt Standing Balance Immediate Standing Balance Steady with support Standing Balance Steady, wide stance Nudged Response Staggers, catches self Standing with Eyes Closed Steady Turning Step Pattern Turning 360 Degrees Discontinuous steps Sitting Down Sitting Down Uses arms or unsteady Gait and Step Initiation of Gait Hesitancy, mult. attempts Right Foot Step Length Does not pass stance ft. Right Foot Step Height Does not clear floor Left Foot Step Length Does not pass stance foot Left Foot Step Height Does not clear floor Step Description Step Symmetry Step length appears equal Step Continuity Stopping or discontinuity Scoring and Interpretation Tinetti Composite Score (points) 9 PT-OP-G Mobility & Gait Start: 09/25/22 13:16 Freq: Status: Active Protocol: Document 09/25/22 13:16 SAK (Rec: 09/29/22 11:54 SAK [id number]) OP Gait Assessment Gait Gait Assistance Required: Standby Assistance Distance (Feet) 60 Able to Maintain Weight Bearing Status Yes During Gait Assistive Devices Assistive Device 4 Wheeled Walker Gait Deviations General Gait Pattern Decreased Stride Length, Decreased Feet Clearance, Flexed Trunk Factors Limiting Gait Function Factors Limiting Gait Function Decreased Activity Tolerance, Decreased Strength,Pain PT-OP-H Neuro Start: 09/25/22 13:16 Freq: Status: Active Protocol: Document 09/25/22 13:16 [facility] (Rec: 09/29/22 11:54 [facility] [id number]) Sensation Evaluation Gross Sensation Gross Sensation WNL Vital Signs Blood Pressure Standing Blood Pressure (90/60-120/80 mmHg) 90/60 Blood Pressure Source Manual Cuff,Left Upper Extremity Sitting Blood Pressure (90/60-120/80 mmHg) 122/82 H Blood Pressure Source Manual Cuff,Left Upper Extremity PT-OP-K Range of Motion Start: 09/25/22 13:16 Freq: Status: Active Protocol: Document 09/25/22 13:16 [facility] (Rec: 09/29/22 11:54 [facility] [id number]) Shoulder Goniometric Range of Motion Shoulder elier Shoulder ROM WFL Yes Hip Goniometric Range of Motion Hip elier Hip ROM WFL Yes Knee Goniometric Range of Motion Knee elier Knee ROM WFL Yes Ankle and Foot Goniometric Range of Motion Ankle and Foot elier Ankle/Foot ROM WFL Yes PT-OP-M Strength Start: 09/25/22 13:16 Freq: Status: Active Protocol: Document 09/25/22 13:16 [facility] (Rec: 09/29/22 11:54 [facility] [id number]) Hip Strength Hip Manual Muscle Testing elier Comments NT due to recent abdominal surgery Knee Strength Knee Manual Muscle Testing elier Flexion (S2) 4- Good- Extension (L3) 4- Good- Ankle/Foot Strength Ankle and Foot Manual Muscle Testing elier Dorsiflexion (L4) 4- Good- Plantarflexion (S1) 4- Good- PT-OP-Q Treatments Start: 09/25/22 13:16 Freq: Status: Active Protocol: Document 11/11/22 14:00 DCW (Rec: 11/11/22 14:42 DCW [id number]) Cardio Equipment Recumbent Elliptical (Biodex) Duration (Minutes) 6 Resistance 4 Seat Position 10 Gym Equipment Shuttle Recovery Unilateral Squats Resistance 50# (one new) Shuttle Recovery Platform Stable Reps/Time x20 Bilateral Squats Resistance 100# (two new) Shuttle Recovery Platform Stable Reps/Time x20 Therapeutic Exercises Standing Exercises Hip Extension Standing Exercise Name Hip Extension Side bilateral Resistance Green Hamstring Curls Standing Exercise Name HS Curls Side bilateral Resistance 5# BOSU Lunge Standing Exercise Name BOSU Lunge Side bilateral Toe-taps Standing Exercise Name Toe-taps Side bilateral Resistance 5# Equipment Used 6 step Other Exercises Resisted Ambulation Other Exercise Name Side-stepping Side bilateral Resistance Green Neuro Re-Education Treatment Balance Activities SLS Details SLS Equipment @ rail, frequent UE support Foam Stance Details NBOS foam stance Surface Blue foam Tandem Details Tandem Stance Equipment // bars PT-OP-T Assessment and Plan Start: 09/25/22 13:16 Freq: Status: Active Protocol: Document 11/11/22 14:00 DCW (Rec: 11/11/22 14:42 DCW [id number]) Physical Therapy Assessment Goals Three Impairment gait dysfunction Impairment uses 4WW for gait Short Term Goal (STG) Patient able to ambulate within the home with SPC safely STG Duration 10/26/22 Energy Project Engineer Goal (LTG) Patient will be able to ambulate in the community safely using least restrictive device LTG Duration 11/25/22 weakness Impairment weakness throughout body Impairment MMT not done due to recent surgery Short Term Goal (STG) Patient to be instructed in HEP for general strengthening STG Duration 10/26/22 Energy Project Engineer Goal (LTG) Patient to be independent and compliant with HEP and demonstrate muscle strength of at least 4/5 throughout UE's, LE's, and trunk LTG Duration 11/25/22 Two Impairment intolerance to activity Short Term Goal (STG) Patient will be able to tolerate standing or walking for at least 15 min without excess fatigue STG Duration 10/26/22 Energy Project Engineer Goal (LTG) Patient will be able to tolerate standing or walking for at least 30 min to allow her to return to doing household and community activities LTG Duration 11/25/22 One Impairment balance dysfunction Impairment Graham Balance score 33/56 Tinetti gait and balance assessment score 9/28 (high risk for falls) Short Term Goal (STG) Improve Graham Balance score to at least 43/56 and Tinneti score to at least 19/28 STG Duration 10/26/22 [facility] Goal (LTG) Improve Graham Balance score to at least 50/56 and Tinneti score to at least 25/28 as measure of improved safety with mobility LTG Duration 11/25/22 Assessment Summary Assessment Pt much more fatigued with balance challenges today, otherwise tolerated increased resistance on leg press and side-stepping today. Physical Therapy Plan Frequency and Duration Frequency of Treatment 2x/Week Duration of treatment (weeks) 8 Plan of Care Start Date 09/25/22 Plan of Care End Date 11/25/22 Therapeutic Interventions Therapeutic Interventions Balance Training,Gait Training ,Home Exercise Program,Manual Therapy,Patient/Caregiver Education,Self-Care/Home Management,Soft Tissue Mobilization,Taping, Therapeutic Activities, Therapeutic Exercises Modalities Cold Pack/Ice Massage,Hot Packs Next Visit Focus/Plan Next Note Type Treatment Note Next Visit Plan Start with Biodex. Gentle progression of strengthening, balance training, and gait training
--- NOTE | 2022-11-18 14:50 | PT.OTN ---
Current Diagnoses Other abnormalities of gait and mobility (11/18/22) Dizziness and giddiness (11/18/22) Weakness (11/18/22) Physical Therapy Treatment Note PT-OP-A Visit Information Start: 09/25/22 13:16 Freq: Status: Active Protocol: Document 11/18/22 14:02 SAK (Rec: 11/18/22 14:50 [facility] [id number]) Out-Patient Physical Therapy Visit Information Visit Information Visit Type Treatment Note Visit Start Time 14:02 Visit Number 5 Evaluation Information Evaluation Date 09/25/22 Precautions Precautions recent abdominal surgery; hysterectomy 09/08/22 PT-OP-B Current Condition Start: 09/25/22 13:16 Freq: Status: Active Protocol: Document 09/25/22 13:16 SAK (Rec: 09/25/22 14:04 SAK [id number]) Current Condition History of Current Condition Onset Date January 2022 Current Complaints balance and walking difficulty History of Current Condition Started getting dizzy and wobbly while walking and when moving from sitting to standing. Using 4WW since January 2022 indoors and outdoors due to fear of falling. W/c for longer distancesPrior to surgery rides recumbant ex bike 45 min per day and lifting weights a few times per day. Not a lot of walking due to fear of falling. Reports high heart rate as high as 125. BP stable with change in positions. Taking Meclazine up to 3x/day with a small amount of improvement. Dizziness worse if not getting enough rest. Reports anterior thigh numbness x 5 days (Dr. Lynch sending pt to someone to check out her veins.) Also c /o elier LE swelling since surgery with 1 episode of reddening color of legs. Diabetic neuropathy elier feet. Needs help on stairs. Prior Treatments and Tests CT neg Future Testing and Treatments Planned Seeing biofuels operations manager 10/14/22 Treatment Goals Patient/Caregiver Goals Improve balance and ability to walk, decrease dizziness. Prior Functional Status Baseline Function- ADL's Independent Baseline Function- Mobility Independent Baseline Function- Gait independent, no device Current Functional Impairments (Reported) Functional Limitations- ADL's shower chair; getting walk-in bathtub. Functional Limitations- Mobility/Gait 4WW, limited distance Functional Limitations- Recreation/ unable Hobbies Personal Factors Other Personal Factors That May Effect recent hysterectomy Therapy/Recovery panic attacks PT-OP-C Subjective Start: 09/25/22 13:16 Freq: Status: Active Protocol: Document 11/18/22 14:02 SAK (Rec: 11/18/22 14:50 [facility] [id number]) OP-PT Subjective Patient Comments Patient Comments States feels good after PT, goal is to walk without walker . wants her to use trekking poles, she is uncertain. Can't go down stairs to the back yard to play with dogs. PT-OP-D Balance Start: 09/25/22 13:16 Freq: Status: Active Protocol: Document 09/25/22 13:16 SAK (Rec: 09/25/22 14:04 [facility] [id number]) Graham Balance Assessment Evaluation Sitting to Standing Ability Independent w/Hands Unsupported Stance Supervision- 2 minutes Sitting Unsupported, Feet on Floor Safely- 2 minutes Standing to Sitting Ability Assist, Control w/Hands Transfer Ability Safely, Hand Use Unsupported Stance- Eyes Closed Supervision, 10 seconds Unsupported Stance- Eyes Open Supervision to maintain Reaching Forward Standing Safely, 5 inches Pick- Up Object From Floor Supervision Look Behind Shoulder - Standing Supervision w/Turning Turning 360 Degrees Supervision/Verbal Cues Unsupported Stance, Alternating Feet on 2 Steps w/Minimum Assist Stair Unsupported Tandem Stance Assist to Step-15 seconds Unilateral Leg Stance Lifts Leg/Unable to Hold Total Score Graham Total Score (out of 56 points) 33 Tinetti Balance Assessment Sitting Balance Sitting Balance Steady, safe Arising from Chair Attempts to Arise Arises on 1st attempt Standing Balance Immediate Standing Balance Steady with support Standing Balance Steady, wide stance Nudged Response Staggers, catches self Standing with Eyes Closed Steady Turning Step Pattern Turning 360 Degrees Discontinuous steps Sitting Down Sitting Down Uses arms or unsteady Gait and Step Initiation of Gait Hesitancy, mult. attempts Right Foot Step Length Does not pass stance ft. Right Foot Step Height Does not clear floor Left Foot Step Length Does not pass stance foot Left Foot Step Height Does not clear floor Step Description Step Symmetry Step length appears equal Step Continuity Stopping or discontinuity Scoring and Interpretation Tinetti Composite Score (points) 9 PT-OP-G Mobility & Gait Start: 09/25/22 13:16 Freq: Status: Active Protocol: Document 09/25/22 13:16 SAK (Rec: 09/29/22 11:54 [facility] [id number]) OP Gait Assessment Gait Gait Assistance Required: Standby Assistance Distance (Feet) 60 Able to Maintain Weight Bearing Status Yes During Gait Assistive Devices Assistive Device 4 Wheeled Walker Gait Deviations General Gait Pattern Decreased Stride Length, Decreased Feet Clearance, Flexed Trunk Factors Limiting Gait Function Factors Limiting Gait Function Decreased Activity Tolerance, Decreased Strength,Pain PT-OP-H Neuro Start: 09/25/22 13:16 Freq: Status: Active Protocol: Document 09/25/22 13:16 [facility] (Rec: 09/29/22 11:54 [facility] [id number]) Sensation Evaluation Gross Sensation Gross Sensation WNL Vital Signs Blood Pressure Standing Blood Pressure (90/60-120/80 mmHg) 90/60 Blood Pressure Source Manual Cuff,Left Upper Extremity Sitting Blood Pressure (90/60-120/80 mmHg) 122/82 H Blood Pressure Source Manual Cuff,Left Upper Extremity PT-OP-K Range of Motion Start: 09/25/22 13:16 Freq: Status: Active Protocol: Document 09/25/22 13:16 [facility] (Rec: 09/29/22 11:54 [facility] [id number]) Shoulder Goniometric Range of Motion Shoulder elier Shoulder ROM WFL Yes Hip Goniometric Range of Motion Hip elier Hip ROM WFL Yes Knee Goniometric Range of Motion Knee elier Knee ROM WFL Yes Ankle and Foot Goniometric Range of Motion Ankle and Foot elier Ankle/Foot ROM WFL Yes PT-OP-M Strength Start: 09/25/22 13:16 Freq: Status: Active Protocol: Document 09/25/22 13:16 [facility] (Rec: 09/29/22 11:54 [facility] [id number]) Hip Strength Hip Manual Muscle Testing elier Comments NT due to recent abdominal surgery Knee Strength Knee Manual Muscle Testing elier Flexion (S2) 4- Good- Extension (L3) 4- Good- Ankle/Foot Strength Ankle and Foot Manual Muscle Testing elier Dorsiflexion (L4) 4- Good- Plantarflexion (S1) 4- Good- PT-OP-Q Treatments Start: 09/25/22 13:16 Freq: Status: Active Protocol: Document 11/18/22 14:02 SAK (Rec: 11/18/22 14:50 [facility] [id number]) Cardio Equipment Recumbent Stepper (Sci-Fit) Duration (Minutes) 8 Resistance 2-2.5 Seat Position 11 Gym Equipment Shuttle Recovery Unilateral Squats Resistance 50# (one new) Shuttle Recovery Platform Stable Reps/Time x20 Bilateral Squats Resistance 100# (two new) Shuttle Recovery Platform Stable Reps/Time x20 Shuttle Balance Red Details WBOS, Staggered Therapeutic Exercises Standing Exercises resisted sidestep Equipment Used orange TB Reps/Minutes 8 ft x 2 ea direction Hip Extension Standing Exercise Name Hip Extension Side bilateral Resistance Green Other Exercises Resisted Ambulation Other Exercise Name Side-stepping Side bilateral Resistance Green Gait Training Gait Activity level Device Used railing, 2 straight canes, 1 straight cane. stairs Device Used elier rail Level of Assistance CG to SBA Surface 4 stairs Distance/Duration 2x Treatment Focus safety Comments step-to pattern. PT-OP-T Assessment and Plan Start: 09/25/22 13:16 Freq: Status: Active Protocol: Document 11/18/22 14:02 [facility] (Rec: 11/18/22 14:50 [facility] [id number]) Physical Therapy Assessment Goals Three Impairment gait dysfunction Impairment uses 4WW for gait Short Term Goal (STG) Patient able to ambulate within the home with SPC safely STG Duration 10/26/22 Skilled Nursing Goal (LTG) Patient will be able to ambulate in the community safely using least restrictive device LTG Duration 11/25/22 weakness Impairment weakness throughout body Impairment MMT not done due to recent surgery Short Term Goal (STG) Patient to be instructed in HEP for general strengthening STG Duration 10/26/22 Skilled Nursing Goal (LTG) Patient to be independent and compliant with HEP and demonstrate muscle strength of at least 4/5 throughout UE's, LE's, and trunk LTG Duration 11/25/22 Two Impairment intolerance to activity Short Term Goal (STG) Patient will be able to tolerate standing or walking for at least 15 min without excess fatigue STG Duration 10/26/22 Skilled Nursing Goal (LTG) Patient will be able to tolerate standing or walking for at least 30 min to allow her to return to doing household and community activities LTG Duration 11/25/22 One Impairment balance dysfunction Impairment Graham Balance score 33/56 Tinetti gait and balance assessment score 9/28 (high risk for falls) Short Term Goal (STG) Improve Graham Balance score to at least 43/56 and Tinneti score to at least 19/28 STG Duration 10/26/22 Skilled Nursing Goal (LTG) Improve Graham Balance score to at least 50/56 and Tinneti score to at least 25/28 as measure of improved safety with mobility LTG Duration 11/25/22 Assessment Summary Assessment Patient steady with step-to pattern elier railings on 4 stairs. Worked on progression of gait training with dec support, patient did best with 1 SPC, close to railing but never had to use opposite hand , no LOB. Encouraged patient to obtain SPC and practice at home next to counter. Good progress. Physical Therapy Plan Frequency and Duration Frequency of Treatment 2x/Week Duration of treatment (weeks) 8 Plan of Care Start Date 09/25/22 Plan of Care End Date 11/25/22 Therapeutic Interventions Therapeutic Interventions Balance Training,Gait Training ,Home Exercise Program,Manual Therapy,Patient/Caregiver Education,Self-Care/Home Management,Soft Tissue Mobilization,Taping, Therapeutic Activities, Therapeutic Exercises Modalities Cold Pack/Ice Massage,Hot Packs Next Visit Focus/Plan Next Note Type Treatment Note Next Visit Plan Continue progression of balance, gait, strengthening.
--- NOTE | 2022-11-26 14:56 | PT.OTN ---
Current Diagnoses Other abnormalities of gait and mobility (11/26/22) Dizziness and giddiness (11/26/22) Weakness (11/26/22) Physical Therapy Treatment Note PT-OP-A Visit Information Start: 09/25/22 13:16 Freq: Status: Active Protocol: Document 11/26/22 14:03 [facility] (Rec: 11/26/22 14:55 [facility] [id number]) Out-Patient Physical Therapy Visit Information Visit Information Visit Type Treatment Note Visit Start Time 14:03 Visit Stop Time 14:45 Total Visit Minutes 42 Visit Number 5 Evaluation Information Evaluation Date 09/25/22 Precautions Precautions recent abdominal surgery; hysterectomy 09/08/22 PT-OP-B Current Condition Start: 09/25/22 13:16 Freq: Status: Active Protocol: Document 09/25/22 13:16 SAK (Rec: 09/25/22 14:04 [facility] [id number]) Current Condition History of Current Condition Onset Date January 2022 Current Complaints balance and walking difficulty History of Current Condition Started getting dizzy and wobbly while walking and when moving from sitting to standing. Using 4WW since January 2022 indoors and outdoors due to fear of falling. W/c for longer distancesPrior to surgery rides recumbant ex bike 45 min per day and lifting weights a few times per day. Not a lot of walking due to fear of falling. Reports high heart rate as high as 125. BP stable with change in positions. Taking Meclazine up to 3x/day with a small amount of improvement. Dizziness worse if not getting enough rest. Reports anterior thigh numbness x 5 days (Dr. Lynch sending pt to someone to check out her veins.) Also c /o elier LE swelling since surgery with 1 episode of reddening color of legs. Diabetic neuropathy elier feet. Needs help on stairs. Prior Treatments and Tests CT neg Future Testing and Treatments Planned Seeing flight purser 10/14/22 Treatment Goals Patient/Caregiver Goals Improve balance and ability to walk, decrease dizziness. Prior Functional Status Baseline Function- ADL's Independent Baseline Function- Mobility Independent Baseline Function- Gait independent, no device Current Functional Impairments (Reported) Functional Limitations- ADL's shower chair; getting walk-in bathtub. Functional Limitations- Mobility/Gait 4WW, limited distance Functional Limitations- Recreation/ unable Hobbies Personal Factors Other Personal Factors That May Effect recent hysterectomy Therapy/Recovery panic attacks PT-OP-C Subjective Start: 09/25/22 13:16 Freq: Status: Active Protocol: Document 11/26/22 14:03 [facility] (Rec: 11/26/22 14:55 [facility] [id number]) OP-PT Subjective Patient Comments Patient Comments Hasn't gotten a cane yet or worked with treLectureToolsing poles. Might get a free treadmill PT-OP-D Balance Start: 09/25/22 13:16 Freq: Status: Active Protocol: Document 09/25/22 13:16 [facility] (Rec: 09/25/22 14:04 [facility] [id number]) Graham Balance Assessment Evaluation Sitting to Standing Ability Independent w/Hands Unsupported Stance Supervision- 2 minutes Sitting Unsupported, Feet on Floor Safely- 2 minutes Standing to Sitting Ability Assist, Control w/Hands Transfer Ability Safely, Hand Use Unsupported Stance- Eyes Closed Supervision, 10 seconds Unsupported Stance- Eyes Open Supervision to maintain Reaching Forward Standing Safely, 5 inches Pick- Up Object From Floor Supervision Look Behind Shoulder - Standing Supervision w/Turning Turning 360 Degrees Supervision/Verbal Cues Unsupported Stance, Alternating Feet on 2 Steps w/Minimum Assist Stair Unsupported Tandem Stance Assist to Step-15 seconds Unilateral Leg Stance Lifts Leg/Unable to Hold Total Score Graham Total Score (out of 56 points) 33 Tinetti Balance Assessment Sitting Balance Sitting Balance Steady, safe Arising from Chair Attempts to Arise Arises on 1st attempt Standing Balance Immediate Standing Balance Steady with support Standing Balance Steady, wide stance Nudged Response Staggers, catches self Standing with Eyes Closed Steady Turning Step Pattern Turning 360 Degrees Discontinuous steps Sitting Down Sitting Down Uses arms or unsteady Gait and Step Initiation of Gait Hesitancy, mult. attempts Right Foot Step Length Does not pass stance ft. Right Foot Step Height Does not clear floor Left Foot Step Length Does not pass stance foot Left Foot Step Height Does not clear floor Step Description Step Symmetry Step length appears equal Step Continuity Stopping or discontinuity Scoring and Interpretation Tinetti Composite Score (points) 9 PT-OP-G Mobility & Gait Start: 09/25/22 13:16 Freq: Status: Active Protocol: Document 09/25/22 13:16 [facility] (Rec: 09/29/22 11:54 [facility] [id number]) OP Gait Assessment Gait Gait Assistance Required: Standby Assistance Distance (Feet) 60 Able to Maintain Weight Bearing Status Yes During Gait Assistive Devices Assistive Device 4 Wheeled Walker Gait Deviations General Gait Pattern Decreased Stride Length, Decreased Feet Clearance, Flexed Trunk Factors Limiting Gait Function Factors Limiting Gait Function Decreased Activity Tolerance, Decreased Strength,Pain PT-OP-H Neuro Start: 09/25/22 13:16 Freq: Status: Active Protocol: Document 09/25/22 13:16 [facility] (Rec: 09/29/22 11:54 [facility] [id number]) Sensation Evaluation Gross Sensation Gross Sensation WNL Vital Signs Blood Pressure Standing Blood Pressure (90/60-120/80 mmHg) 90/60 Blood Pressure Source Manual Cuff,Left Upper Extremity Sitting Blood Pressure (90/60-120/80 mmHg) 122/82 H Blood Pressure Source Manual Cuff,Left Upper Extremity PT-OP-K Range of Motion Start: 09/25/22 13:16 Freq: Status: Active Protocol: Document 09/25/22 13:16 [facility] (Rec: 09/29/22 11:54 [facility] [id number]) Shoulder Goniometric Range of Motion Shoulder elier Shoulder ROM WFL Yes Hip Goniometric Range of Motion Hip elier Hip ROM WFL Yes Knee Goniometric Range of Motion Knee elier Knee ROM WFL Yes Ankle and Foot Goniometric Range of Motion Ankle and Foot elier Ankle/Foot ROM WFL Yes PT-OP-M Strength Start: 09/25/22 13:16 Freq: Status: Active Protocol: Document 09/25/22 13:16 [facility] (Rec: 09/29/22 11:54 [facility] [id number]) Hip Strength Hip Manual Muscle Testing elier Comments NT due to recent abdominal surgery Knee Strength Knee Manual Muscle Testing elier Flexion (S2) 4- Good- Extension (L3) 4- Good- Ankle/Foot Strength Ankle and Foot Manual Muscle Testing elier Dorsiflexion (L4) 4- Good- Plantarflexion (S1) 4- Good- PT-OP-Q Treatments Start: 09/25/22 13:16 Freq: Status: Active Protocol: Document 11/26/22 14:03 [facility] (Rec: 11/26/22 14:55 [facility] [id number]) Cardio Equipment Recumbent Stepper (Sci-Fit) Duration (Minutes) 8 Resistance 2 Seat Position 11 Other 5 min UE's and LE's, 3 min LE' s only Treadmill Duration (Minutes) 3 Speed .5 Incline 0 Other pt education on safe use Gait Training Gait Activity level Device Used 1 straight cane, 1 trekking pole Distance/Duration 14 min stairs Device Used elier rail Level of Assistance CG to SBA Surface 4 stairs Distance/Duration 2x Treatment Focus safety Comments alternating pattern Neuro Re-Education Treatment Balance Activities foam walk Details black, blue, lowery, green foam Equipment parallel bars Reps/Duration 3 rounds Comments min to mod UE support on bars Tilt Board Details fwd/bck, side/side bal and weight shift PT-OP-T Assessment and Plan Start: 09/25/22 13:16 Freq: Status: Active Protocol: Document 11/26/22 14:03 SAK (Rec: 11/26/22 14:55 SAK [id number]) Physical Therapy Assessment Goals Three Impairment gait dysfunction Impairment uses 4WW for gait Short Term Goal (STG) Patient able to ambulate within the home with SPC safely STG Duration 10/26/22 Correction Goal (LTG) Patient will be able to ambulate in the community safely using least restrictive device LTG Duration 11/25/22 weakness Impairment weakness throughout body Impairment MMT not done due to recent surgery Short Term Goal (STG) Patient to be instructed in HEP for general strengthening STG Duration 10/26/22 Sales Engagement Manager Goal (LTG) Patient to be independent and compliant with HEP and demonstrate muscle strength of at least 4/5 throughout UE's, LE's, and trunk LTG Duration 11/25/22 Two Impairment intolerance to activity Short Term Goal (STG) Patient will be able to tolerate standing or walking for at least 15 min without excess fatigue STG Duration 10/26/22 Correction Goal (LTG) Patient will be able to tolerate standing or walking for at least 30 min to allow her to return to doing household and community activities LTG Duration 11/25/22 One Impairment balance dysfunction Impairment Graham Balance score 33/56 Tinetti gait and balance assessment score 9/28 (high risk for falls) Short Term Goal (STG) Improve Graham Balance score to at least 43/56 and Tinneti score to at least 19/28 STG Duration 10/26/22 Sales Engagement Manager Goal (LTG) Improve Graham Balance score to at least 50/56 and Tinneti score to at least 25/28 as measure of improved safety with mobility LTG Duration 11/25/22 Assessment Summary Assessment Patient requires frequent rest breaks, is anxious about falling but demonstrating improved steadiness with gait, best with SPC vs trekking pole, encouraged to practice at home. Able to do alternating pattern on 4 stairs today. Good progress. Physical Therapy Plan Frequency and Duration Frequency of Treatment 2x/Week Duration of treatment (weeks) 8 Plan of Care Start Date 09/25/22 Plan of Care End Date 11/25/22 Therapeutic Interventions Therapeutic Interventions Balance Training,Gait Training ,Home Exercise Program,Manual Therapy,Patient/Caregiver Education,Self-Care/Home Management,Soft Tissue Mobilization,Taping, Therapeutic Activities, Therapeutic Exercises Modalities Cold Pack/Ice Massage,Hot Packs Next Visit Focus/Plan Next Note Type Treatment Note Next Visit Plan Continue progression of balance, gait, strengthening. Gait training outside, further uneven surfaces.
--- NOTE | 2022-11-26 16:47 | PT.OTRE ---
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) Morbid obesity Narcotic habituation, continuous Nocturnal hypoxemia Obstipation LYLA (obstructive sleep apnea) Ovarian cyst Plantar fasciitis Psychogenic nonepileptic seizure Pulmonary embolism RBBB (right bundle branch block) Sinus tachycardia Status post laminectomy (12/14/15) Suicide attempt Tobacco abuse Tylenol overdose Urinary retention Surgical History (Last Updated 11/14/22 @ 12:45 by Zachary Araujo RN) H/O: hysterectomy History of carpal tunnel repair (~10/30/14) History of colonoscopy History of esophagogastroduodenoscopy (EGD) History of laminectomy History of laminectomy (~09/2016) History of lumbar spinal fusion (12/22/18) Hx of toe surgery (05/16/20) S/P epidural steroid injection (11/2013) Status post dilation and curettage (2008) Visit Care Team Role Provider Type Alejandra Lynch MD Attending Provider Physician Family Provider Primary Care Provider Referring Provider Specialty: [facility] Practice Address: [address] [place] [address], [facility] Email: [email or web address] Physical Therapy Re-Evaluation PT-OP-A Visit Information Start: 09/25/22 13:16 Freq: Status: Active Protocol: Document 11/26/22 14:03 JUMA (Rec: 11/26/22 14:55 JUMA [id number]) Out-Patient Physical Therapy Visit Information Visit Information Visit Type Treatment Note Visit Start Time 14:03 Visit Stop Time 14:45 Total Visit Minutes 42 Visit Number 5 Evaluation Information Evaluation Date 09/25/22 Precautions Precautions recent abdominal surgery; hysterectomy 09/08/22 PT-OP-B Current Condition Start: 09/25/22 13:16 Freq: Status: Active Protocol: Document 09/25/22 13:16 [facility] (Rec: 09/25/22 14:04 [facility] [id number]) Current Condition History of Current Condition Onset Date January 2022 Current Complaints balance and walking difficulty History of Current Condition Started getting dizzy and wobbly while walking and when moving from sitting to standing. Using 4WW since January 2022 indoors and outdoors due to fear of falling. W/c for longer distancesPrior to surgery rides recumbant ex bike 45 min per day and lifting weights a few times per day. Not a lot of walking due to fear of falling. Reports high heart rate as high as 125. BP stable with change in positions. Taking Meclazine up to 3x/day with a small amount of improvement. Dizziness worse if not getting enough rest. Reports anterior thigh numbness x 5 days (Dr. Lynch sending pt to someone to check out her veins.) Also c /o elier LE swelling since surgery with 1 episode of reddening color of legs. Diabetic neuropathy elier feet. Needs help on stairs. Prior Treatments and Tests CT neg Future Testing and Treatments Planned Seeing political theory professor 10/14/22 Treatment Goals Patient/Caregiver Goals Improve balance and ability to walk, decrease dizziness. Prior Functional Status Baseline Function- ADL's Independent Baseline Function- Mobility Independent Baseline Function- Gait independent, no device Current Functional Impairments (Reported) Functional Limitations- ADL's shower chair; getting walk-in bathtub. Functional Limitations- Mobility/Gait 4WW, limited distance Functional Limitations- Recreation/ unable Hobbies Personal Factors Other Personal Factors That May Effect recent hysterectomy Therapy/Recovery panic attacks PT-OP-C Subjective Start: 09/25/22 13:16 Freq: Status: Active Protocol: Document 11/26/22 14:03 [facility] (Rec: 11/26/22 14:55 [facility] [id number]) OP-PT Subjective Patient Comments Patient Comments Hasn't gotten a cane yet or worked with trekking poles. Might get a free treadmill PT-OP-D Balance Start: 09/25/22 13:16 Freq: Status: Active Protocol: Document 09/25/22 13:16 [facility] (Rec: 09/25/22 14:04 [facility] [id number]) Graham Balance Assessment Evaluation Sitting to Standing Ability Independent w/Hands Unsupported Stance Supervision- 2 minutes Sitting Unsupported, Feet on Floor Safely- 2 minutes Standing to Sitting Ability Assist, Control w/Hands Transfer Ability Safely, Hand Use Unsupported Stance- Eyes Closed Supervision, 10 seconds Unsupported Stance- Eyes Open Supervision to maintain Reaching Forward Standing Safely, 5 inches Pick- Up Object From Floor Supervision Look Behind Shoulder - Standing Supervision w/Turning Turning 360 Degrees Supervision/Verbal Cues Unsupported Stance, Alternating Feet on 2 Steps w/Minimum Assist Stair Unsupported Tandem Stance Assist to Step-15 seconds Unilateral Leg Stance Lifts Leg/Unable to Hold Total Score Graham Total Score (out of 56 points) 33 Tinetti Balance Assessment Sitting Balance Sitting Balance Steady, safe Arising from Chair Attempts to Arise Arises on 1st attempt Standing Balance Immediate Standing Balance Steady with support Standing Balance Steady, wide stance Nudged Response Staggers, catches self Standing with Eyes Closed Steady Turning Step Pattern Turning 360 Degrees Discontinuous steps Sitting Down Sitting Down Uses arms or unsteady Gait and Step Initiation of Gait Hesitancy, mult. attempts Right Foot Step Length Does not pass stance ft. Right Foot Step Height Does not clear floor Left Foot Step Length Does not pass stance foot Left Foot Step Height Does not clear floor Step Description Step Symmetry Step length appears equal Step Continuity Stopping or discontinuity Scoring and Interpretation Tinetti Composite Score (points) 9 PT-OP-G Mobility & Gait Start: 09/25/22 13:16 Freq: Status: Active Protocol: Document 09/25/22 13:16 [facility] (Rec: 09/29/22 11:54 [facility] [id number]) OP Gait Assessment Gait Gait Assistance Required: Standby Assistance Distance (Feet) 60 Able to Maintain Weight Bearing Status Yes During Gait Assistive Devices Assistive Device 4 Wheeled Walker Gait Deviations General Gait Pattern Decreased Stride Length, Decreased Feet Clearance, Flexed Trunk Factors Limiting Gait Function Factors Limiting Gait Function Decreased Activity Tolerance, Decreased Strength,Pain PT-OP-H Neuro Start: 09/25/22 13:16 Freq: Status: Active Protocol: Document 09/25/22 13:16 [facility] (Rec: 09/29/22 11:54 [facility] [id number]) Sensation Evaluation Gross Sensation Gross Sensation WNL Vital Signs Blood Pressure Standing Blood Pressure (90/60-120/80 mmHg) 90/60 Blood Pressure Source Manual Cuff,Left Upper Extremity Sitting Blood Pressure (90/60-120/80 mmHg) 122/82 H Blood Pressure Source Manual Cuff,Left Upper Extremity PT-OP-K Range of Motion Start: 09/25/22 13:16 Freq: Status: Active Protocol: Document 09/25/22 13:16 [facility] (Rec: 09/29/22 11:54 [facility] [id number]) Shoulder Goniometric Range of Motion Shoulder Measured in Degrees elier Shoulder ROM WFL Yes Hip Goniometric Range of Motion Hip Measured in Degrees elier Hip ROM WFL Yes Knee Goniometric Range of Motion Knee Measured in Degrees elier Knee ROM WFL Yes Ankle and Foot Goniometric Range of Motion Ankle and Foot Measured in Degrees elier Ankle/Foot ROM WFL Yes PT-OP-M Strength Start: 09/25/22 13:16 Freq: Status: Active Protocol: Document 09/25/22 13:16 [facility] (Rec: 09/29/22 11:54 [facility] [id number]) Hip Strength Hip Manual Muscle Testing elier Comments NT due to recent abdominal surgery Knee Strength Knee Manual Muscle Testing elier Flexion (S2) 4- Good- Extension (L3) 4- Good- Ankle/Foot Strength Ankle and Foot Manual Muscle Testing elier Dorsiflexion (L4) 4- Good- Plantarflexion (S1) 4- Good- PT-OP-Q Treatments Start: 09/25/22 13:16 Freq: Status: Active Protocol: Document 11/26/22 14:03 [facility] (Rec: 11/26/22 14:55 [facility] [id number]) Cardio Equipment Recumbent Stepper (Sci-Fit) Duration (Minutes) 8 Resistance 2 Seat Position 11 Other 5 min UE's and LE's, 3 min LE' s only Treadmill Duration (Minutes) 3 Speed .5 Incline 0 Other pt education on safe use Gait Training Gait Activity level Device Used 1 straight cane, 1 trekking pole Distance/Duration 14 min stairs Device Used elier rail Level of Assistance CG to SBA Surface 4 stairs Distance/Duration 2x Treatment Focus safety Comments alternating pattern Neuro Re-Education Treatment Balance Activities foam walk Details black, blue, lowery, green foam Equipment parallel bars Reps/Duration 3 rounds Comments min to mod UE support on bars Tilt Board Details fwd/bck, side/side bal and weight shift PT-OP-T Assessment and Plan Start: 09/25/22 13:16 Freq: Status: Active Protocol: Document 11/26/22 14:03 [facility] (Rec: 11/26/22 14:55 [facility] [id number]) Physical Therapy Assessment Goals Three Impairment gait dysfunction Impairment uses 4WW for gait Short Term Goal (STG) Patient able to ambulate within the home with SPC safely 11/26/22: goal met STG Duration goal met Fdc Goal (LTG) Patient will be able to ambulate in the community safely using least restrictive device LTG Duration 01/26/23 weakness Impairment weakness throughout body Impairment MMT not done due to recent surgery Short Term Goal (STG) Patient to be instructed in HEP for general strengthening 11/26/22: goal met, ongoing progression STG Duration goal met Fdc Goal (LTG) Patient to be independent and compliant with HEP and demonstrate muscle strength of at least 4/5 throughout UE's, LE's, and trunk 11/26/22 good goal progress LTG Duration 01/26/23 Two Impairment intolerance to activity Short Term Goal (STG) Patient will be able to tolerate standing or walking for at least 15 min without excess fatigue 11/26/22: goal met STG Duration goal met Combination Man Goal (LTG) Patient will be able to tolerate standing or walking for at least 30 min to allow her to return to doing household and community activities LTG Duration 01/26/23 One Impairment balance dysfunction Impairment Graham Balance score 33/56 Tinetti gait and balance assessment score 9/28 (high risk for falls) Short Term Goal (STG) Improve Graham Balance score to at least 43/56 and Tinneti score to at least 19/28 11/26/22: goal met, patient very tentative and fearful of falling STG Duration goal met Fdc Goal (LTG) Improve Graham Balance score to at least 50/56 and Tinneti score to at least 25/28 as measure of improved safety with mobility LTG Duration 01/26/23 Assessment Summary Assessment Patient requires frequent rest breaks, is anxious about falling but demonstrating improved steadiness with gait, best with SPC vs trekking pole, encouraged to practice at home. Able to do alternating pattern on 4 stairs today. Good progress toward goals as noted above. Recommend continued PT. Physical Therapy Plan Frequency and Duration Frequency of Treatment 2x/Week Duration of treatment (weeks) 8 Plan of Care Start Date 11/26/22 Plan of Care End Date 01/27/23 Therapeutic Interventions Therapeutic Interventions Balance Training,Gait Training ,Home Exercise Program,Manual Therapy,Patient/Caregiver Education,Self-Care/Home Management,Soft Tissue Mobilization,Taping, Therapeutic Activities, Therapeutic Exercises Modalities Cold Pack/Ice Massage,Hot Packs Next Visit Focus/Plan Next Note Type Treatment Note Next Visit Plan Continue progression of balance, gait, strengthening. Gait training outside, further uneven surfaces.
--- NOTE | 2022-11-26 16:48 | PT.OPPOC ---
Physical, Occupational & Speech Therapy At [facility] Current Diagnoses Other abnormalities of gait and mobility (11/26/22) Dizziness and giddiness (11/26/22) Weakness (11/26/22) Visit Care Team Role Provider Type Alejandra Lynch MD Attending Provider Physician Family Provider Primary Care Provider Referring Provider Specialty: Family Practice Address: [address] [place] [address], [facility] Email: [email or web address] Plan Of Care PT-OP-T Assessment and Plan Start: 09/25/22 13:16 Freq: Status: Active Protocol: Document 11/26/22 14:03 JUMA (Rec: 11/26/22 14:55 [facility] [id number]) Physical Therapy Assessment Goals Three Impairment gait dysfunction Impairment uses 4WW for gait Short Term Goal (STG) Patient able to ambulate within the home with SPC safely 11/26/22: goal met STG Duration goal met Firestopper Technician Goal (LTG) Patient will be able to ambulate in the community safely using least restrictive device LTG Duration 01/26/23 weakness Impairment weakness throughout body Impairment MMT not done due to recent surgery Short Term Goal (STG) Patient to be instructed in HEP for general strengthening 11/26/22: goal met, ongoing progression STG Duration goal met Care Home Goal (LTG) Patient to be independent and compliant with HEP and demonstrate muscle strength of at least 4/5 throughout UE's, LE's, and trunk 11/26/22 good goal progress LTG Duration 01/26/23 Two Impairment intolerance to activity Short Term Goal (STG) Patient will be able to tolerate standing or walking for at least 15 min without excess fatigue 11/26/22: goal met STG Duration goal met Care Home Goal (LTG) Patient will be able to tolerate standing or walking for at least 30 min to allow her to return to doing household and community activities LTG Duration 01/26/23 One Impairment balance dysfunction Impairment Graham Balance score 33/56 Tinetti gait and balance assessment score 9/28 (high risk for falls) Short Term Goal (STG) Improve Graham Balance score to at least 43/56 and Tinneti score to at least 19/28 11/26/22: goal met, patient very tentative and fearful of falling STG Duration goal met Firestopper Technician Goal (LTG) Improve Graham Balance score to at least 50/56 and Tinneti score to at least 25/28 as measure of improved safety with mobility LTG Duration 01/26/23 Assessment Summary Assessment Patient requires frequent rest breaks, is anxious about falling but demonstrating improved steadiness with gait, best with SPC vs trekking pole, encouraged to practice at home. Able to do alternating pattern on 4 stairs today. Good progress toward goals as noted above. Recommend continued PT. Physical Therapy Plan Frequency and Duration Frequency of Treatment 2x/Week Duration of treatment (weeks) 8 Plan of Care Start Date 11/26/22 Plan of Care End Date 01/27/23 Therapeutic Interventions Therapeutic Interventions Balance Training,Gait Training ,Home Exercise Program,Manual Therapy,Patient/Caregiver Education,Self-Care/Home Management,Soft Tissue Mobilization,Taping, Therapeutic Activities, Therapeutic Exercises Modalities Cold Pack/Ice Massage,Hot Packs Next Visit Focus/Plan Next Note Type Treatment Note Next Visit Plan Continue progression of balance, gait, strengthening. Gait training outside, further uneven surfaces. Plan of Care Dates Plan of Care Start Date 11/26/22 Plan of Care End Date 01/27/23 Electronically Signed by: Smiley Goldman, PT 12/02/22 [id number] If you are in agreement with this Plan of Care, please return a signed and dated copy. I have reviewed this Plan of Care and certify that the skilled therapy services above are required to meet the patient?s needs. Physician Signature Date Printed Name and Credentials Clinical Instructor Signature Printed Name and Credentials
--- NOTE | 2022-12-03 17:24 | PT.OTN ---
Current Diagnoses Other abnormalities of gait and mobility (12/03/22) Dizziness and giddiness (12/03/22) Weakness (12/03/22) Physical Therapy Treatment Note PT-OP-A Visit Information Start: 09/25/22 13:16 Freq: Status: Active Protocol: Document 12/03/22 14:16 SAK (Rec: 12/03/22 14:54 [facility] [id number]) Out-Patient Physical Therapy Visit Information Visit Information Visit Type Treatment Note Visit Start Time 14:05 Visit Stop Time 14:45 Total Visit Minutes 40 Visit Number 6 Evaluation Information Evaluation Date 09/25/22 Precautions Precautions recent abdominal surgery; hysterectomy 09/08/22 PT-OP-B Current Condition Start: 09/25/22 13:16 Freq: Status: Active Protocol: Document 09/25/22 13:16 SAK (Rec: 09/25/22 14:04 SAK [id number]) Current Condition History of Current Condition Onset Date January 2022 Current Complaints balance and walking difficulty History of Current Condition Started getting dizzy and wobbly while walking and when moving from sitting to standing. Using 4WW since January 2022 indoors and outdoors due to fear of falling. W/c for longer distancesPrior to surgery rides recumbant ex bike 45 min per day and lifting weights a few times per day. Not a lot of walking due to fear of falling. Reports high heart rate as high as 125. BP stable with change in positions. Taking Meclazine up to 3x/day with a small amount of improvement. Dizziness worse if not getting enough rest. Reports anterior thigh numbness x 5 days (Dr. Lynch sending pt to someone to check out her veins.) Also c /o elier LE swelling since surgery with 1 episode of reddening color of legs. Diabetic neuropathy elier feet. Needs help on stairs. Prior Treatments and Tests CT neg Future Testing and Treatments Planned Seeing test developer 10/14/22 Treatment Goals Patient/Caregiver Goals Improve balance and ability to walk, decrease dizziness. Prior Functional Status Baseline Function- ADL's Independent Baseline Function- Mobility Independent Baseline Function- Gait independent, no device Current Functional Impairments (Reported) Functional Limitations- ADL's shower chair; getting walk-in bathtub. Functional Limitations- Mobility/Gait 4WW, limited distance Functional Limitations- Recreation/ unable Hobbies Personal Factors Other Personal Factors That May Effect recent hysterectomy Therapy/Recovery panic attacks PT-OP-C Subjective Start: 09/25/22 13:16 Freq: Status: Active Protocol: Document 12/03/22 14:16 [facility] (Rec: 12/03/22 14:54 [facility] [id number]) OP-PT Subjective Patient Comments Patient Comments Got treadmill, in garage, 2 stairs with railing only on 1 side. Hasn't used yet; uncertain about safety in/out of house. PT-OP-D Balance Start: 09/25/22 13:16 Freq: Status: Active Protocol: Document 09/25/22 13:16 SAK (Rec: 09/25/22 14:04 [facility] [id number]) Graham Balance Assessment Evaluation Sitting to Standing Ability Independent w/Hands Unsupported Stance Supervision- 2 minutes Sitting Unsupported, Feet on Floor Safely- 2 minutes Standing to Sitting Ability Assist, Control w/Hands Transfer Ability Safely, Hand Use Unsupported Stance- Eyes Closed Supervision, 10 seconds Unsupported Stance- Eyes Open Supervision to maintain Reaching Forward Standing Safely, 5 inches Pick- Up Object From Floor Supervision Look Behind Shoulder - Standing Supervision w/Turning Turning 360 Degrees Supervision/Verbal Cues Unsupported Stance, Alternating Feet on 2 Steps w/Minimum Assist Stair Unsupported Tandem Stance Assist to Step-15 seconds Unilateral Leg Stance Lifts Leg/Unable to Hold Total Score Graham Total Score (out of 56 points) 33 Tinetti Balance Assessment Sitting Balance Sitting Balance Steady, safe Arising from Chair Attempts to Arise Arises on 1st attempt Standing Balance Immediate Standing Balance Steady with support Standing Balance Steady, wide stance Nudged Response Staggers, catches self Standing with Eyes Closed Steady Turning Step Pattern Turning 360 Degrees Discontinuous steps Sitting Down Sitting Down Uses arms or unsteady Gait and Step Initiation of Gait Hesitancy, mult. attempts Right Foot Step Length Does not pass stance ft. Right Foot Step Height Does not clear floor Left Foot Step Length Does not pass stance foot Left Foot Step Height Does not clear floor Step Description Step Symmetry Step length appears equal Step Continuity Stopping or discontinuity Scoring and Interpretation Tinetti Composite Score (points) 9 PT-OP-G Mobility & Gait Start: 09/25/22 13:16 Freq: Status: Active Protocol: Document 09/25/22 13:16 [facility] (Rec: 09/29/22 11:54 [facility] [id number]) OP Gait Assessment Gait Gait Assistance Required: Standby Assistance Distance (Feet) 60 Able to Maintain Weight Bearing Status Yes During Gait Assistive Devices Assistive Device 4 Wheeled Walker Gait Deviations General Gait Pattern Decreased Stride Length, Decreased Feet Clearance, Flexed Trunk Factors Limiting Gait Function Factors Limiting Gait Function Decreased Activity Tolerance, Decreased Strength,Pain PT-OP-H Neuro Start: 09/25/22 13:16 Freq: Status: Active Protocol: Document 09/25/22 13:16 [facility] (Rec: 09/29/22 11:54 [facility] [id number]) Sensation Evaluation Gross Sensation Gross Sensation WNL Vital Signs Blood Pressure Standing Blood Pressure (90/60-120/80 mmHg) 90/60 Blood Pressure Source Manual Cuff,Left Upper Extremity Sitting Blood Pressure (90/60-120/80 mmHg) 122/82 H Blood Pressure Source Manual Cuff,Left Upper Extremity PT-OP-K Range of Motion Start: 09/25/22 13:16 Freq: Status: Active Protocol: Document 09/25/22 13:16 [facility] (Rec: 09/29/22 11:54 [facility] [id number]) Shoulder Goniometric Range of Motion Shoulder elier Shoulder ROM WFL Yes Hip Goniometric Range of Motion Hip elier Hip ROM WFL Yes Knee Goniometric Range of Motion Knee elier Knee ROM WFL Yes Ankle and Foot Goniometric Range of Motion Ankle and Foot elier Ankle/Foot ROM WFL Yes PT-OP-M Strength Start: 09/25/22 13:16 Freq: Status: Active Protocol: Document 09/25/22 13:16 [facility] (Rec: 09/29/22 11:54 [facility] [id number]) Hip Strength Hip Manual Muscle Testing elier Comments NT due to recent abdominal surgery Knee Strength Knee Manual Muscle Testing elier Flexion (S2) 4- Good- Extension (L3) 4- Good- Ankle/Foot Strength Ankle and Foot Manual Muscle Testing elier Dorsiflexion (L4) 4- Good- Plantarflexion (S1) 4- Good- PT-OP-Q Treatments Start: 09/25/22 13:16 Freq: Status: Active Protocol: Document 12/03/22 14:16 [facility] (Rec: 12/03/22 14:54 [facility] [id number]) Cardio Equipment Recumbent Stepper (Sci-Fit) Duration (Minutes) 5 Resistance 2 Seat Position 11 Other 5 min UE's and LE's Treadmill Duration (Minutes) 3 Speed .5-.6 Incline 0 Other pt education on safe use Gym Equipment Shuttle Recovery Unilateral Squats Resistance 50# (one new) Shuttle Recovery Platform Stable Reps/Time x20 Bilateral Squats Resistance 100# (two new) Shuttle Recovery Platform Stable Reps/Time x20 Shuttle Balance Red Details WBOS, Staggered Comments CG to min assist, UE support elier Therapeutic Exercises Sitting Exercises sit to stand Equipment Used 5x Reps/Minutes no UE Gait Training Gait Activity level Device Used 1 straight cane Distance/Duration 8 min stairs Device Used unil rail, straight cane Level of Assistance CG to SBA Surface 4, 6 stairs Distance/Duration 54x Treatment Focus safety Comments alternating pattern Neuro Re-Education Treatment Balance Activities hurdles, foam Equipment black foam mats,hurdles, cane Reps/Duration 10 ft x 6 Comments CG to mod assit for balance, caught foot on paige x 3 requ mod assist for bal PT-OP-T Assessment and Plan Start: 09/25/22 13:16 Freq: Status: Active Protocol: Document 12/03/22 14:16 JUMA (Rec: 12/03/22 14:54 [facility] [id number]) Physical Therapy Assessment Goals Three Impairment gait dysfunction Impairment uses 4WW for gait Short Term Goal (STG) Patient able to ambulate within the home with SPC safely 11/26/22: goal met STG Duration goal met Pressurised Container Filler Goal (LTG) Patient will be able to ambulate in the community safely using least restrictive device LTG Duration 01/26/23 weakness Impairment weakness throughout body Impairment MMT not done due to recent surgery Short Term Goal (STG) Patient to be instructed in HEP for general strengthening 11/26/22: goal met, ongoing progression STG Duration goal met Fpc Goal (LTG) Patient to be independent and compliant with HEP and demonstrate muscle strength of at least 4/5 throughout UE's, LE's, and trunk 11/26/22 good goal progress LTG Duration 01/26/23 Two Impairment intolerance to activity Short Term Goal (STG) Patient will be able to tolerate standing or walking for at least 15 min without excess fatigue 11/26/22: goal met STG Duration goal met Fpc Goal (LTG) Patient will be able to tolerate standing or walking for at least 30 min to allow her to return to doing household and community activities LTG Duration 01/26/23 One Impairment balance dysfunction Impairment Graham Balance score 33/56 Tinetti gait and balance assessment score 02/19 (high risk for falls) Short Term Goal (STG) Improve Graham Balance score to at least 43/56 and Tinneti score to at least 19/28 11/26/22: goal met, patient very tentative and fearful of falling STG Duration goal met Fpc Goal (LTG) Improve Graham Balance score to at least 50/56 and Tinneti score to at least 25/28 as measure of improved safety with mobility LTG Duration 01/26/23 Assessment Summary Assessment improving gait steadiness. Trial with new SPC with large tip today with no LOB on level , firm ground with SBA though with tendency to shuffle feet. Use of hurdles to increase foot clearance and challenge balance; mod assist for balance x 3 due to LOB. Physical Therapy Plan Frequency and Duration Frequency of Treatment 2x/Week Duration of treatment (weeks) 8 Plan of Care Start Date 11/26/22 Plan of Care End Date 01/27/23 Therapeutic Interventions Therapeutic Interventions Balance Training,Gait Training ,Home Exercise Program,Manual Therapy,Patient/Caregiver Education,Self-Care/Home Management,Soft Tissue Mobilization,Taping, Therapeutic Activities, Therapeutic Exercises Modalities Cold Pack/Ice Massage,Hot Packs Next Visit Focus/Plan Next Note Type Treatment Note Next Visit Plan Continue progression of balance, gait, strengthening. Trial shuttle balance. Gait training outside, further uneven surfaces.
--- NOTE | 2022-12-17 10:30 | PT.OTN ---
Current Diagnoses Other abnormalities of gait and mobility (12/17/22) Dizziness and giddiness (12/17/22) Weakness (12/17/22) Physical Therapy Treatment Note PT-OP-A Visit Information Start: 09/25/22 13:16 Freq: Status: Active Protocol: Document 12/17/22 09:27 SAK (Rec: 12/17/22 10:30 [facility] [id number]) Out-Patient Physical Therapy Visit Information Visit Information Visit Type Treatment Note Visit Start Time 09:27 Total Visit Minutes 45 Visit Number 7 Evaluation Information Evaluation Date 09/25/22 Precautions Precautions recent abdominal surgery; hysterectomy 09/08/22 PT-OP-B Current Condition Start: 09/25/22 13:16 Freq: Status: Active Protocol: Document 09/25/22 13:16 SAK (Rec: 09/25/22 14:04 [facility] [id number]) Current Condition History of Current Condition Onset Date January 2022 Current Complaints balance and walking difficulty History of Current Condition Started getting dizzy and wobbly while walking and when moving from sitting to standing. Using 4WW since January 2022 indoors and outdoors due to fear of falling. W/c for longer distancesPrior to surgery rides recumbant ex bike 45 min per day and lifting weights a few times per day. Not a lot of walking due to fear of falling. Reports high heart rate as high as 125. BP stable with change in positions. Taking Meclazine up to 3x/day with a small amount of improvement. Dizziness worse if not getting enough rest. Reports anterior thigh numbness x 5 days (Dr. Lynch sending pt to someone to check out her veins.) Also c /o elier LE swelling since surgery with 1 episode of reddening color of legs. Diabetic neuropathy elier feet. Needs help on stairs. 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 Prior Functional Status Baseline Function- ADL's Independent Baseline Function- Mobility Independent Baseline Function- Gait independent, no device Current Functional Impairments (Reported) Functional Limitations- ADL's shower chair; getting walk-in bathtub. Functional Limitations- Mobility/Gait 4WW, limited distance Functional Limitations- Recreation/ unable Hobbies Personal Factors Other Personal Factors That May Effect recent hysterectomy Therapy/Recovery panic attacks PT-OP-C Subjective Start: 09/25/22 13:16 Freq: Status: Active Protocol: Document 12/03/22 14:16 [facility] (Rec: 12/03/22 14:54 [facility] [id number]) OP-PT Subjective Patient Comments Patient Comments Got treadmill, in garage, 2 stairs with railing only on 1 side. Hasn't used yet; uncertain about safety in/out of house. PT-OP-D Balance Start: 09/25/22 13:16 Freq: Status: Active Protocol: Document 09/25/22 13:16 [facility] (Rec: 09/25/22 14:04 [facility] [id number]) Graham Balance Assessment Evaluation Sitting to Standing Ability Independent w/Hands Unsupported Stance Supervision- 2 minutes Sitting Unsupported, Feet on Floor Safely- 2 minutes Standing to Sitting Ability Assist, Control w/Hands Transfer Ability Safely, Hand Use Unsupported Stance- Eyes Closed Supervision, 10 seconds Unsupported Stance- Eyes Open Supervision to maintain Reaching Forward Standing Safely, 5 inches Pick- Up Object From Floor Supervision Look Behind Shoulder - Standing Supervision w/Turning Turning 360 Degrees Supervision/Verbal Cues Unsupported Stance, Alternating Feet on 2 Steps w/Minimum Assist Stair Unsupported Tandem Stance Assist to Step-15 seconds Unilateral Leg Stance Lifts Leg/Unable to Hold Total Score Graham Total Score (out of 56 points) 33 Tinetti Balance Assessment Sitting Balance Sitting Balance Steady, safe Arising from Chair Attempts to Arise Arises on 1st attempt Standing Balance Immediate Standing Balance Steady with support Standing Balance Steady, wide stance Nudged Response Staggers, catches self Standing with Eyes Closed Steady Turning Step Pattern Turning 360 Degrees Discontinuous steps Sitting Down Sitting Down Uses arms or unsteady Gait and Step Initiation of Gait Hesitancy, mult. attempts Right Foot Step Length Does not pass stance ft. Right Foot Step Height Does not clear floor Left Foot Step Length Does not pass stance foot Left Foot Step Height Does not clear floor Step Description Step Symmetry Step length appears equal Step Continuity Stopping or discontinuity Scoring and Interpretation Tinetti Composite Score (points) 9 PT-OP-G Mobility & Gait Start: 09/25/22 13:16 Freq: Status: Active Protocol: Document 09/25/22 13:16 [facility] (Rec: 09/29/22 11:54 [facility] [id number]) OP Gait Assessment Gait Gait Assistance Required: Standby Assistance Distance (Feet) 60 Able to Maintain Weight Bearing Status Yes During Gait Assistive Devices Assistive Device 4 Wheeled Walker Gait Deviations General Gait Pattern Decreased Stride Length, Decreased Feet Clearance, Flexed Trunk Factors Limiting Gait Function Factors Limiting Gait Function Decreased Activity Tolerance, Decreased Strength,Pain PT-OP-H Neuro Start: 09/25/22 13:16 Freq: Status: Active Protocol: Document 09/25/22 13:16 [facility] (Rec: 09/29/22 11:54 [facility] [id number]) Sensation Evaluation Gross Sensation Gross Sensation WNL Vital Signs Blood Pressure Standing Blood Pressure (90/60-120/80 mmHg) 90/60 Blood Pressure Source Manual Cuff,Left Upper Extremity Sitting Blood Pressure (90/60-120/80 mmHg) 122/82 H Blood Pressure Source Manual Cuff,Left Upper Extremity PT-OP-K Range of Motion Start: 09/25/22 13:16 Freq: Status: Active Protocol: Document 09/25/22 13:16 [facility] (Rec: 09/29/22 11:54 [facility] [id number]) Shoulder Goniometric Range of Motion Shoulder elier Shoulder ROM WFL Yes Hip Goniometric Range of Motion Hip elier Hip ROM WFL Yes Knee Goniometric Range of Motion Knee elier Knee ROM WFL Yes Ankle and Foot Goniometric Range of Motion Ankle and Foot elier Ankle/Foot ROM WFL Yes PT-OP-M Strength Start: 09/25/22 13:16 Freq: Status: Active Protocol: Document 09/25/22 13:16 [facility] (Rec: 09/29/22 11:54 [facility] [id number]) Hip Strength Hip Manual Muscle Testing elier Comments NT due to recent abdominal surgery Knee Strength Knee Manual Muscle Testing elier Flexion (S2) 4- Good- Extension (L3) 4- Good- Ankle/Foot Strength Ankle and Foot Manual Muscle Testing elier Dorsiflexion (L4) 4- Good- Plantarflexion (S1) 4- Good- PT-OP-Q Treatments Start: 09/25/22 13:16 Freq: Status: Active Protocol: Document 12/17/22 09:27 [facility] (Rec: 12/17/22 10:30 [facility] [id number]) Gym Equipment Shuttle Recovery Unilateral Squats Resistance 50# (one new) Shuttle Recovery Platform Stable Reps/Time x20 Bilateral Squats Resistance 62 (2 new) Shuttle Recovery Platform Stable Reps/Time 20x Therapeutic Exercises Sitting Exercises LAQ Equipment Used orange TB Reps/Minutes 10x Hamstring Curls Sitting Exercise Name HS curls Side bilateral Resistance [place] Equipment Used chair leg Reps/Minutes 10x Standing Exercises LAQ Equipment Used L2 TB Reps/Minutes 10x resisted sidestep Equipment Used red band Reps/Minutes 10 ft x 2 ea direction Gait Training Gait Activity walk with no device Description holding blue foam Device Used none Distance/Duration 10ft x 2 Treatment Focus safety parallel bars Description fwd, bck, march, side, holding foam Level of Assistance CGA to SBA Surface firm Distance/Duration 10 min Treatment Focus safety level Device Used 1 straight cane Level of Assistance SB to CGA Distance/Duration 3 min x 3 Treatment Focus balance, safety Comments cues to keep knees soft, increase foot clearance PT-OP-T Assessment and Plan Start: 09/25/22 13:16 Freq: Status: Active Protocol: Document 12/17/22 09:27 [facility] (Rec: 12/17/22 10:30 [facility] [id number]) Physical Therapy Assessment Goals Three Impairment gait dysfunction Impairment uses 4WW for gait Short Term Goal (STG) Patient able to ambulate within the home with SPC safely 11/26/22: goal met STG Duration goal met Senior Living Goal (LTG) Patient will be able to ambulate in the community safely using least restrictive device LTG Duration 01/26/23 weakness Impairment weakness throughout body Impairment MMT not done due to recent surgery Short Term Goal (STG) Patient to be instructed in HEP for general strengthening 11/26/22: goal met, ongoing progression STG Duration goal met Strategic Debriefing Specialist Goal (LTG) Patient to be independent and compliant with HEP and demonstrate muscle strength of at least 4/5 throughout UE's, LE's, and trunk 11/26/22 good goal progress LTG Duration 01/26/23 Two Impairment intolerance to activity Short Term Goal (STG) Patient will be able to tolerate standing or walking for at least 15 min without excess fatigue 11/26/22: goal met STG Duration goal met Strategic Debriefing Specialist Goal (LTG) Patient will be able to tolerate standing or walking for at least 30 min to allow her to return to doing household and community activities LTG Duration 01/26/23 One Impairment balance dysfunction Impairment Graham Balance score 33/56 Tinetti gait and balance assessment score 02/19 (high risk for falls) Short Term Goal (STG) Improve Graham Balance score to at least 43/56 and Tinneti score to at least 19/28 11/26/22: goal met, patient very tentative and fearful of falling STG Duration goal met Senior Living Goal (LTG) Improve Graham Balance score to at least 50/56 and Tinneti score to at least 25/28 as measure of improved safety with mobility LTG Duration 01/26/23 Assessment Summary Assessment Pt. comes to PT with SPC with large tip, still uses walker at home due to feeling unsafe if carrying anything. Progressed gait activities today including short distance carrying foam with no device, and walking with cane carrying cup. Will try with dinner plate one hand and cane other next time Physical Therapy Plan Frequency and Duration Frequency of Treatment 2x/Week Duration of treatment (weeks) 8 Plan of Care Start Date 11/26/22 Plan of Care End Date 01/27/23 Therapeutic Interventions Therapeutic Interventions Balance Training,Gait Training ,Home Exercise Program,Manual Therapy,Patient/Caregiver Education,Self-Care/Home Management,Soft Tissue Mobilization,Taping, Therapeutic Activities, Therapeutic Exercises Modalities Cold Pack/Ice Massage,Hot Packs Next Visit Focus/Plan Next Note Type Treatment Note Next Visit Plan Continue progression of balance, gait, strengthening. Trial shuttle balance. Gait training outside, further uneven surfaces.
--- NOTE | 2022-12-25 10:28 | PT.OTN ---
Current Diagnoses Other abnormalities of gait and mobility (12/25/22) Dizziness and giddiness (12/25/22) Weakness (12/25/22) Physical Therapy Treatment Note PT-OP-A Visit Information Start: 09/25/22 13:16 Freq: Status: Active Protocol: Document 12/25/22 09:32 SAK (Rec: 12/25/22 10:18 SAK [id number]) Out-Patient Physical Therapy Visit Information Visit Information Visit Type Treatment Note Visit Start Time 09:31 Visit Stop Time 10:15 Total Visit Minutes 44 Visit Number 7 Evaluation Information Evaluation Date 09/25/22 Precautions Precautions recent abdominal surgery; hysterectomy 09/08/22 PT-OP-B Current Condition Start: 09/25/22 13:16 Freq: Status: Active Protocol: Document 09/25/22 13:16 SAK (Rec: 09/25/22 14:04 SAK [id number]) Current Condition History of Current Condition Onset Date January 2022 Current Complaints balance and walking difficulty History of Current Condition Started getting dizzy and wobbly while walking and when moving from sitting to standing. Using 4WW since January 2022 indoors and outdoors due to fear of falling. W/c for longer distancesPrior to surgery rides recumbant ex bike 45 min per day and lifting weights a few times per day. Not a lot of walking due to fear of falling. Reports high heart rate as high as 125. BP stable with change in positions. Taking Meclazine up to 3x/day with a small amount of improvement. Dizziness worse if not getting enough rest. Reports anterior thigh numbness x 5 days (Dr. Lynch sending pt to someone to check out her veins.) Also c /o elier LE swelling since surgery with 1 episode of reddening color of legs. Diabetic neuropathy elier feet. Needs help on stairs. Prior Treatments and Tests CT neg Future Testing and Treatments Planned Seeing tax compliance officer 10/14/22 Treatment Goals Patient/Caregiver Goals Improve balance and ability to walk, decrease dizziness. Prior Functional Status Baseline Function- ADL's Independent Baseline Function- Mobility Independent Baseline Function- Gait independent, no device Current Functional Impairments (Reported) Functional Limitations- ADL's shower chair; getting walk-in bathtub. Functional Limitations- Mobility/Gait 4WW, limited distance Functional Limitations- Recreation/ unable Hobbies Personal Factors Other Personal Factors That May Effect recent hysterectomy Therapy/Recovery panic attacks PT-OP-C Subjective Start: 09/25/22 13:16 Freq: Status: Active Protocol: Document 12/25/22 09:32 SAK (Rec: 12/25/22 10:18 SAK [id number]) OP-PT Subjective Patient Comments Patient Comments Patient reports this is a little early for her, didn't have her coffee or anything to eat. [place] a little dizzy in parking lot. Hasn't been able to use treadmill, states thinks too fast. PT-OP-D Balance Start: 09/25/22 13:16 Freq: Status: Active Protocol: Document 09/25/22 13:16 SAK (Rec: 09/25/22 14:04 SAK [id number]) Graham Balance Assessment Evaluation Sitting to Standing Ability Independent w/Hands Unsupported Stance Supervision- 2 minutes Sitting Unsupported, Feet on Floor Safely- 2 minutes Standing to Sitting Ability Assist, Control w/Hands Transfer Ability Safely, Hand Use Unsupported Stance- Eyes Closed Supervision, 10 seconds Unsupported Stance- Eyes Open Supervision to maintain Reaching Forward Standing Safely, 5 inches Pick- Up Object From Floor Supervision Look Behind Shoulder - Standing Supervision w/Turning Turning 360 Degrees Supervision/Verbal Cues Unsupported Stance, Alternating Feet on 2 Steps w/Minimum Assist Stair Unsupported Tandem Stance Assist to Step-15 seconds Unilateral Leg Stance Lifts Leg/Unable to Hold Total Score Graham Total Score (out of 56 points) 33 Tinetti Balance Assessment Sitting Balance Sitting Balance Steady, safe Arising from Chair Attempts to Arise Arises on 1st attempt Standing Balance Immediate Standing Balance Steady with support Standing Balance Steady, wide stance Nudged Response Staggers, catches self Standing with Eyes Closed Steady Turning Step Pattern Turning 360 Degrees Discontinuous steps Sitting Down Sitting Down Uses arms or unsteady Gait and Step Initiation of Gait Hesitancy, mult. attempts Right Foot Step Length Does not pass stance ft. Right Foot Step Height Does not clear floor Left Foot Step Length Does not pass stance foot Left Foot Step Height Does not clear floor Step Description Step Symmetry Step length appears equal Step Continuity Stopping or discontinuity Scoring and Interpretation Tinetti Composite Score (points) 9 PT-OP-G Mobility & Gait Start: 09/25/22 13:16 Freq: Status: Active Protocol: Document 09/25/22 13:16 SAK (Rec: 09/29/22 11:54 [facility] [id number]) OP Gait Assessment Gait Gait Assistance Required: Standby Assistance Distance (Feet) 60 Able to Maintain Weight Bearing Status Yes During Gait Assistive Devices Assistive Device 4 Wheeled Walker Gait Deviations General Gait Pattern Decreased Stride Length, Decreased Feet Clearance, Flexed Trunk Factors Limiting Gait Function Factors Limiting Gait Function Decreased Activity Tolerance, Decreased Strength,Pain PT-OP-H Neuro Start: 09/25/22 13:16 Freq: Status: Active Protocol: Document 09/25/22 13:16 [facility] (Rec: 09/29/22 11:54 [facility] [id number]) Sensation Evaluation Gross Sensation Gross Sensation WNL Vital Signs Blood Pressure Standing Blood Pressure (90/60-120/80 mmHg) 90/60 Blood Pressure Source Manual Cuff,Left Upper Extremity Sitting Blood Pressure (90/60-120/80 mmHg) 122/82 H Blood Pressure Source Manual Cuff,Left Upper Extremity PT-OP-K Range of Motion Start: 09/25/22 13:16 Freq: Status: Active Protocol: Document 09/25/22 13:16 [facility] (Rec: 09/29/22 11:54 [facility] [id number]) Shoulder Goniometric Range of Motion Shoulder elier Shoulder ROM WFL Yes Hip Goniometric Range of Motion Hip elier Hip ROM WFL Yes Knee Goniometric Range of Motion Knee elier Knee ROM WFL Yes Ankle and Foot Goniometric Range of Motion Ankle and Foot elier Ankle/Foot ROM WFL Yes PT-OP-M Strength Start: 09/25/22 13:16 Freq: Status: Active Protocol: Document 09/25/22 13:16 [facility] (Rec: 09/29/22 11:54 [facility] [id number]) Hip Strength Hip Manual Muscle Testing elier Comments NT due to recent abdominal surgery Knee Strength Knee Manual Muscle Testing elier Flexion (S2) 4- Good- Extension (L3) 4- Good- Ankle/Foot Strength Ankle and Foot Manual Muscle Testing elier Dorsiflexion (L4) 4- Good- Plantarflexion (S1) 4- Good- PT-OP-Q Treatments Start: 09/25/22 13:16 Freq: Status: Active Protocol: Document 12/25/22 09:32 SAK (Rec: 12/25/22 10:18 [facility] [id number]) Cardio Equipment Recumbent Stepper (Sci-Fit) Duration (Minutes) 5 Resistance 2 Seat Position 11 Other 5 min UE's and LE's Treadmill Duration (Minutes) 4 Speed 0.5-0.7 Incline 0 Gait Training Gait Activity outdoor Distance/Duration 100 ft x 2 Comments stairs, incline, pavement walk with no device Description carrying plastic plate Device Used none Level of Assistance CGA, cues Surface firm Distance/Duration 20 ft x 2 Treatment Focus safety level Device Used 1 straight cane Level of Assistance SB to CGA Distance/Duration 150 ft x 2 Treatment Focus balance, safety Comments cues to keep knees soft, increase foot clearance stairs Device Used unil rail, straight cane Level of Assistance CG to SBA Surface 4 stairs Distance/Duration 12 stairs Treatment Focus safety Comments mostly step-to, able to alternateoccasionally PT-OP-T Assessment and Plan Start: 09/25/22 13:16 Freq: Status: Active Protocol: Document 12/25/22 09:32 [facility] (Rec: 12/25/22 10:18 [facility] [id number]) Physical Therapy Assessment Goals Three Impairment gait dysfunction Impairment uses 4WW for gait Short Term Goal (STG) Patient able to ambulate within the home with SPC safely 11/26/22: goal met STG Duration goal met Fire Protection Engineering Technician Goal (LTG) Patient will be able to ambulate in the community safely using least restrictive device LTG Duration 01/26/23 weakness Impairment weakness throughout body Impairment MMT not done due to recent surgery Short Term Goal (STG) Patient to be instructed in HEP for general strengthening 11/26/22: goal met, ongoing progression STG Duration goal met Fire Protection Engineering Technician Goal (LTG) Patient to be independent and compliant with HEP and demonstrate muscle strength of at least 4/5 throughout UE's, LE's, and trunk 11/26/22 good goal progress LTG Duration 01/26/23 Two Impairment intolerance to activity Short Term Goal (STG) Patient will be able to tolerate standing or walking for at least 15 min without excess fatigue 11/26/22: goal met STG Duration goal met Fire Protection Engineering Technician Goal (LTG) Patient will be able to tolerate standing or walking for at least 30 min to allow her to return to doing household and community activities LTG Duration 01/26/23 One Impairment balance dysfunction Impairment Graham Balance score 33/56 Tinetti gait and balance assessment score 9/ (high risk for falls) Short Term Goal (STG) Improve Graham Balance score to at least 43/56 and Tinneti score to at least 19/28 11/26/22: goal met, patient very tentative and fearful of falling STG Duration goal met Intermediate Goal (LTG) Improve Graham Balance score to at least 50/56 and Tinneti score to at least 25/28 as measure of improved safety with mobility LTG Duration 01/26/23 Assessment Summary Assessment Increased emphasis on gait including uneven, outdoors, stairs, gait while carrying object to work on functional balance, safety, and confidence. Patient needs much encouragement but making steady gains in function. Would benefit from PT 2x/wk but unable to do multiple other appointments weekly. Physical Therapy Plan Frequency and Duration Frequency of Treatment 2x/Week Duration of treatment (weeks) 8 Plan of Care Start Date 11/26/22 Plan of Care End Date 01/27/23 Therapeutic Interventions Therapeutic Interventions Balance Training,Gait Training ,Home Exercise Program,Manual Therapy,Patient/Caregiver Education,Self-Care/Home Management,Soft Tissue Mobilization,Taping, Therapeutic Activities, Therapeutic Exercises Modalities Cold Pack/Ice Massage,Hot Packs Next Visit Focus/Plan Next Note Type Treatment Note Next Visit Plan Obstacle course with foam, 4 BOX, hurdles. Further outdoor gait, treadmill progression.
--- NOTE | 2023-01-07 08:49 | PT.OTN ---
Current Diagnoses Other abnormalities of gait and mobility (01/07/23) Dizziness and giddiness (01/07/23) Weakness (01/07/23) Physical Therapy Treatment Note PT-OP-A Visit Information Start: 09/25/22 13:16 Freq: Status: Active Protocol: Document 01/07/23 07:59 [facility] (Rec: 01/07/23 08:48 [facility] [id number]) Out-Patient Physical Therapy Visit Information Visit Information Visit Type Treatment Note Visit Start Time 08:00 Visit Stop Time 08:45 Total Visit Minutes 45 Visit Number 9 Precautions Precautions recent abdominal surgery; hysterectomy 09/08/22 PT-OP-B Current Condition Start: 09/25/22 13:16 Freq: Status: Active Protocol: Document 09/25/22 13:16 SAK (Rec: 09/25/22 14:04 [facility] [id number]) Current Condition History of Current Condition Onset Date January 2022 Current Complaints balance and walking difficulty History of Current Condition Started getting dizzy and wobbly while walking and when moving from sitting to standing. Using 4WW since January 2022 indoors and outdoors due to fear of falling. W/c for longer distancesPrior to surgery rides recumbant ex bike 45 min per day and lifting weights a few times per day. Not a lot of walking due to fear of falling. Reports high heart rate as high as 125. BP stable with change in positions. Taking Meclazine up to 3x/day with a small amount of improvement. Dizziness worse if not getting enough rest. Reports anterior thigh numbness x 5 days (Dr. Lynch sending pt to someone to check out her veins.) Also c /o elier LE swelling since surgery with 1 episode of reddening color of legs. Diabetic neuropathy elier feet. Needs help on stairs. Prior Treatments and Tests CT neg Future Testing and Treatments Planned Seeing banquet coordinator 10/14/22 Treatment Goals Patient/Caregiver Goals Improve balance and ability to walk, decrease dizziness. Prior Functional Status Baseline Function- ADL's Independent Baseline Function- Mobility Independent Baseline Function- Gait independent, no device Current Functional Impairments (Reported) Functional Limitations- ADL's shower chair; getting walk-in bathtub. Functional Limitations- Mobility/Gait 4WW, limited distance Functional Limitations- Recreation/ unable Hobbies Personal Factors Other Personal Factors That May Effect recent hysterectomy Therapy/Recovery panic attacks PT-OP-C Subjective Start: 09/25/22 13:16 Freq: Status: Active Protocol: Document 01/07/23 07:59 SAK (Rec: 01/07/23 08:48 [facility] [id number]) OP-PT Subjective Patient Comments Patient Comments Patient states only using cane now, hasn't been as active this week due to heat. Hard to increase her confidence with mobility. PT-OP-D Balance Start: 09/25/22 13:16 Freq: Status: Active Protocol: Document 09/25/22 13:16 SAK (Rec: 09/25/22 14:04 [facility] [id number]) Graham Balance Assessment Evaluation Sitting to Standing Ability Independent w/Hands Unsupported Stance Supervision- 2 minutes Sitting Unsupported, Feet on Floor Safely- 2 minutes Standing to Sitting Ability Assist, Control w/Hands Transfer Ability Safely, Hand Use Unsupported Stance- Eyes Closed Supervision, 10 seconds Unsupported Stance- Eyes Open Supervision to maintain Reaching Forward Standing Safely, 5 inches Pick- Up Object From Floor Supervision Look Behind Shoulder - Standing Supervision w/Turning Turning 360 Degrees Supervision/Verbal Cues Unsupported Stance, Alternating Feet on 2 Steps w/Minimum Assist Stair Unsupported Tandem Stance Assist to Step-15 seconds Unilateral Leg Stance Lifts Leg/Unable to Hold Total Score Graham Total Score (out of 56 points) 33 Tinetti Balance Assessment Sitting Balance Sitting Balance Steady, safe Arising from Chair Attempts to Arise Arises on 1st attempt Standing Balance Immediate Standing Balance Steady with support Standing Balance Steady, wide stance Nudged Response Staggers, catches self Standing with Eyes Closed Steady Turning Step Pattern Turning 360 Degrees Discontinuous steps Sitting Down Sitting Down Uses arms or unsteady Gait and Step Initiation of Gait Hesitancy, mult. attempts Right Foot Step Length Does not pass stance ft. Right Foot Step Height Does not clear floor Left Foot Step Length Does not pass stance foot Left Foot Step Height Does not clear floor Step Description Step Symmetry Step length appears equal Step Continuity Stopping or discontinuity Scoring and Interpretation Tinetti Composite Score (points) 9 PT-OP-G Mobility & Gait Start: 09/25/22 13:16 Freq: Status: Active Protocol: Document 09/25/22 13:16 SAK (Rec: 09/29/22 11:54 [facility] [id number]) OP Gait Assessment Gait Gait Assistance Required: Standby Assistance Distance (Feet) 60 Able to Maintain Weight Bearing Status Yes During Gait Assistive Devices Assistive Device 4 Wheeled Walker Gait Deviations General Gait Pattern Decreased Stride Length, Decreased Feet Clearance, Flexed Trunk Factors Limiting Gait Function Factors Limiting Gait Function Decreased Activity Tolerance, Decreased Strength,Pain PT-OP-H Neuro Start: 09/25/22 13:16 Freq: Status: Active Protocol: Document 09/25/22 13:16 [facility] (Rec: 09/29/22 11:54 [facility] [id number]) Sensation Evaluation Gross Sensation Gross Sensation WNL Vital Signs Blood Pressure Standing Blood Pressure (90/60-120/80 mmHg) 90/60 Blood Pressure Source Manual Cuff,Left Upper Extremity Sitting Blood Pressure (90/60-120/80 mmHg) 122/82 H Blood Pressure Source Manual Cuff,Left Upper Extremity PT-OP-K Range of Motion Start: 09/25/22 13:16 Freq: Status: Active Protocol: Document 09/25/22 13:16 [facility] (Rec: 09/29/22 11:54 [facility] [id number]) Shoulder Goniometric Range of Motion Shoulder elier Shoulder ROM WFL Yes Hip Goniometric Range of Motion Hip elier Hip ROM WFL Yes Knee Goniometric Range of Motion Knee elier Knee ROM WFL Yes Ankle and Foot Goniometric Range of Motion Ankle and Foot elier Ankle/Foot ROM WFL Yes PT-OP-M Strength Start: 09/25/22 13:16 Freq: Status: Active Protocol: Document 09/25/22 13:16 [facility] (Rec: 09/29/22 11:54 [facility] [id number]) Hip Strength Hip Manual Muscle Testing elier Comments NT due to recent abdominal surgery Knee Strength Knee Manual Muscle Testing elier Flexion (S2) 4- Good- Extension (L3) 4- Good- Ankle/Foot Strength Ankle and Foot Manual Muscle Testing elier Dorsiflexion (L4) 4- Good- Plantarflexion (S1) 4- Good- PT-OP-Q Treatments Start: 09/25/22 13:16 Freq: Status: Active Protocol: Document 01/07/23 07:59 [facility] (Rec: 01/07/23 08:48 [facility] [id number]) Therapeutic Exercises Standing Exercises lunges Standing Exercise Name fwd, side, back Equipment Used wall bar; cues for dec UE support as able Reps/Minutes 5x ea Gait Training Gait Activity outdoor Distance/Duration 100 ft x 2 Comments stairs, incline, pavement walk with no device Description carrying cone with ball Device Used none Level of Assistance CGA, cues Surface firm Distance/Duration 100 ft Treatment Focus safety, balance level Device Used 1 straight cane Level of Assistance SB to CGA Distance/Duration 150 ft x 2 Treatment Focus balance, safety Comments cues to keep knees soft, increase foot clearance stairs Device Used unil rail, straight cane Level of Assistance CG to SBA Surface 4 stairs Distance/Duration 12 stairs Treatment Focus safety Comments mostly step-to, able to alternateoccasionally Neuro Re-Education Treatment Balance Activities step-touch Reps/Duration 10x 6 stair SPC, 6x 4 stair no device hurdles, foam Equipment different density foam blue, green, black, lowery, 4 step Reps/Duration 10 ft x 6 Comments CG to mod assit for balance, caught foot on paige x 3 requ mod assist for bal foam walk Details black, blue, lowery, green foam Reps/Duration 3 rounds Comments CG to min assist, no device PT-OP-T Assessment and Plan Start: 09/25/22 13:16 Freq: Status: Active Protocol: Document 01/07/23 07:59 [facility] (Rec: 01/07/23 08:48 [facility] [id number]) Physical Therapy Assessment Goals Three Impairment gait dysfunction Impairment uses 4WW for gait Short Term Goal (STG) Patient able to ambulate within the home with SPC safely 11/26/22: goal met STG Duration goal met Press Manager Goal (LTG) Patient will be able to ambulate in the community safely using least restrictive device LTG Duration 01/26/23 weakness Impairment weakness throughout body Impairment MMT not done due to recent surgery Short Term Goal (STG) Patient to be instructed in HEP for general strengthening 11/26/22: goal met, ongoing progression STG Duration goal met Press Manager Goal (LTG) Patient to be independent and compliant with HEP and demonstrate muscle strength of at least 4/5 throughout UE's, LE's, and trunk 11/26/22 good goal progress LTG Duration 01/26/23 Two Impairment intolerance to activity Short Term Goal (STG) Patient will be able to tolerate standing or walking for at least 15 min without excess fatigue 11/26/22: goal met STG Duration goal met Press Manager Goal (LTG) Patient will be able to tolerate standing or walking for at least 30 min to allow her to return to doing household and community activities LTG Duration 01/26/23 One Impairment balance dysfunction Impairment Graham Balance score 33/56 Tinetti gait and balance assessment score 02/19 (high risk for falls) Short Term Goal (STG) Improve Graham Balance score to at least 43/56 and Tinneti score to at least 19/28 11/26/22: goal met, patient very tentative and fearful of falling STG Duration goal met Assisted Goal (LTG) Improve Graham Balance score to at least 50/56 and Tinneti score to at least 25/28 as measure of improved safety with mobility LTG Duration 01/26/23 Assessment Summary Assessment Improved functional balance and gait with decreased PT support. Able to progress balance exercises, added lunges all directions to patient HEP. Physical Therapy Plan Frequency and Duration Frequency of Treatment 2x/Week Duration of treatment (weeks) 8 Plan of Care Start Date 11/26/22 Plan of Care End Date 01/27/23 Therapeutic Interventions Therapeutic Interventions Balance Training,Gait Training ,Home Exercise Program,Manual Therapy,Patient/Caregiver Education,Self-Care/Home Management,Soft Tissue Mobilization,Taping, Therapeutic Activities, Therapeutic Exercises Modalities Cold Pack/Ice Massage,Hot Packs Next Visit Focus/Plan Next Note Type Treatment Note Next Visit Plan Continue to progress balance, strength, gait
--- NOTE | 2023-01-14 15:49 | PT-OP ANOTE ---
cancelled due to pt ill
--- NOTE | 2023-01-21 14:25 | PT-OP ANOTE ---
cancelled PT appointment
--- NOTE | 2023-01-29 11:00 | PT-OP ANOTE ---
cancelled due to ill with infection
--- NOTE | 2023-02-10 13:22 | PT-OP ANOTE ---
pt cancelled PT appt.
--- NOTE | 2023-03-16 13:07 | PT.OPDS ---
Current Diagnoses Other abnormalities of gait and mobility (01/07/23) Dizziness and giddiness (01/07/23) Weakness (01/07/23) Visit Care Team Role Provider Type Alejandra Lynch MD Attending Provider Physician Family Provider Primary Care Provider Referring Provider Specialty: Family Practice Address: [address] [place] [address], [id number] Email: [email or web address] Visit Number Visit Number 9 Discharge Summary PT-OP-B Current Condition Start: 09/25/22 13:16 Freq: Status: Active Protocol: Document 09/25/22 13:16 SAK (Rec: 09/25/22 14:04 SAK [id number]) Current Condition History of Current Condition Onset Date January 2022 Current Complaints balance and walking difficulty History of Current Condition Started getting dizzy and wobbly while walking and when moving from sitting to standing. Using 4WW since January 2022 indoors and outdoors due to fear of falling. W/c for longer distancesPrior to surgery rides recumbant ex bike 45 min per day and lifting weights a few times per day. Not a lot of walking due to fear of falling. Reports high heart rate as high as 125. BP stable with change in positions. Taking Meclazine up to 3x/day with a small amount of improvement. Dizziness worse if not getting enough rest. Reports anterior thigh numbness x 5 days (Dr. Lynch sending pt to someone to check out her veins.) Also c /o elier LE swelling since surgery with 1 episode of reddening color of legs. Diabetic neuropathy elier feet. Needs help on stairs. Prior Treatments and Tests CT neg Future Testing and Treatments Planned Seeing automatic buffer 10/14/22 Treatment Goals Patient/Caregiver Goals Improve balance and ability to walk, decrease dizziness. Prior Functional Status Baseline Function- ADL's Independent Baseline Function- Mobility Independent Baseline Function- Gait independent, no device Current Functional Impairments (Reported) Functional Limitations- ADL's shower chair; getting walk-in bathtub. Functional Limitations- Mobility/Gait 4WW, limited distance Functional Limitations- Recreation/ unable Hobbies Personal Factors Other Personal Factors That May Effect recent hysterectomy Therapy/Recovery panic attacks PT-OP-C Subjective Start: 09/25/22 13:16 Freq: Status: Active Protocol: Document 01/07/23 07:59 [facility] (Rec: 01/07/23 08:48 [facility] [id number]) OP-PT Subjective Patient Comments Patient Comments Patient states only using cane now, hasn't been as active this week due to heat. Hard to increase her confidence with mobility. PT-OP-D Balance Start: 09/25/22 13:16 Freq: Status: Active Protocol: Document 09/25/22 13:16 [facility] (Rec: 09/25/22 14:04 [facility] [id number]) Graham Balance Assessment Evaluation Sitting to Standing Ability Independent w/Hands Unsupported Stance Supervision- 2 minutes Sitting Unsupported, Feet on Floor Safely- 2 minutes Standing to Sitting Ability Assist, Control w/Hands Transfer Ability Safely, Hand Use Unsupported Stance- Eyes Closed Supervision, 10 seconds Unsupported Stance- Eyes Open Supervision to maintain Reaching Forward Standing Safely, 5 inches Pick- Up Object From Floor Supervision Look Behind Shoulder - Standing Supervision w/Turning Turning 360 Degrees Supervision/Verbal Cues Unsupported Stance, Alternating Feet on 2 Steps w/Minimum Assist Stair Unsupported Tandem Stance Assist to Step-15 seconds Unilateral Leg Stance Lifts Leg/Unable to Hold Total Score Graham Total Score (out of 56 points) 33 Tinetti Balance Assessment Sitting Balance Sitting Balance Steady, safe Arising from Chair Attempts to Arise Arises on 1st attempt Standing Balance Immediate Standing Balance Steady with support Standing Balance Steady, wide stance Nudged Response Staggers, catches self Standing with Eyes Closed Steady Turning Step Pattern Turning 360 Degrees Discontinuous steps Sitting Down Sitting Down Uses arms or unsteady Gait and Step Initiation of Gait Hesitancy, mult. attempts Right Foot Step Length Does not pass stance ft. Right Foot Step Height Does not clear floor Left Foot Step Length Does not pass stance foot Left Foot Step Height Does not clear floor Step Description Step Symmetry Step length appears equal Step Continuity Stopping or discontinuity Scoring and Interpretation Tinetti Composite Score (points) 9 PT-OP-G Mobility & Gait Start: 09/25/22 13:16 Freq: Status: Active Protocol: Document 09/25/22 13:16 SAK (Rec: 09/29/22 11:54 [facility] [id number]) OP Gait Assessment Gait Gait Assistance Required: Standby Assistance Distance (Feet) 60 Able to Maintain Weight Bearing Status Yes During Gait Assistive Devices Assistive Device 4 Wheeled Walker Gait Deviations General Gait Pattern Decreased Stride Length, Decreased Feet Clearance, Flexed Trunk Factors Limiting Gait Function Factors Limiting Gait Function Decreased Activity Tolerance, Decreased Strength,Pain PT-OP-H Neuro Start: 09/25/22 13:16 Freq: Status: Active Protocol: Document 09/25/22 13:16 [facility] (Rec: 09/29/22 11:54 [facility] [id number]) Sensation Evaluation Gross Sensation Gross Sensation WNL Vital Signs Blood Pressure Standing Blood Pressure (90/60-120/80 mmHg) 90/60 Blood Pressure Source Manual Cuff,Left Upper Extremity Sitting Blood Pressure (90/60-120/80 mmHg) 122/82 H Blood Pressure Source Manual Cuff,Left Upper Extremity PT-OP-K Range of Motion Start: 09/25/22 13:16 Freq: Status: Active Protocol: Document 09/25/22 13:16 [facility] (Rec: 09/29/22 11:54 [facility] [id number]) Shoulder Goniometric Range of Motion Shoulder elier Shoulder ROM WFL Yes Hip Goniometric Range of Motion Hip elier Hip ROM WFL Yes Knee Goniometric Range of Motion Knee elier Knee ROM WFL Yes Ankle and Foot Goniometric Range of Motion Ankle and Foot elier Ankle/Foot ROM WFL Yes PT-OP-M Strength Start: 09/25/22 13:16 Freq: Status: Active Protocol: Document 09/25/22 13:16 [facility] (Rec: 09/29/22 11:54 [facility] [id number]) Hip Strength Hip Manual Muscle Testing elier Comments NT due to recent abdominal surgery Knee Strength Knee Manual Muscle Testing elier Flexion (S2) 4- Good- Extension (L3) 4- Good- Ankle/Foot Strength Ankle and Foot Manual Muscle Testing elier Dorsiflexion (L4) 4- Good- Plantarflexion (S1) 4- Good- PT-OP-T Assessment and Plan Start: 09/25/22 13:16 Freq: Status: Active Protocol: Document 03/16/23 13:07 [facility] (Rec: 03/16/23 13:07 [facility] [id number]) Physical Therapy Plan Discharge Physical Therapy Discharge Reasons Patient Request
== END 2023-03-18 11:15 | disposition home or self-care (01) ==
LOC: PHYS 08:00
PROVIDERS: Absent Provider Family Medicine; Family Provider Family Medicine; PCP Family Medicine; Referring Provider Family Medicine; Visit Provider Family Medicine
DX: R26.89 Other abnormalities of gait and mobility (principal); R53.1 Weakness; R42 Dizziness and giddiness
CPT/HCPCS: 97110; 97112; 97116; 97162; 97535

== ENCOUNTER → 2023-02-10 14:04 | Outpatient (CLI) | payer OTHER, MEDICARE, SELFPAY ==
[2022-10-07 14:47] VITALS: BMI 47.4
[2023-02-10 14:29] LABS: Add Manual Diff / Slide Review NO; Basophils Absolute Auto 0 /uL (0-100); Basophils Percent Auto 0.4 % (0-2); Eosinophils Absolute Auto 200 /uL (0-450); Eosinophils Percent Auto 2.8 % (2-4); Hematocrit 40.5 % (36-46); Hemoglobin 13.4 g/dL (12.0-16.0); Lymphocytes Absolute Auto 1600 /uL (1100-4500); Lymphocytes Percent Auto 26.3 % (25-40); Mean Corpuscular HGB Conc 33.1 % (30-36); Mean Corpuscular Hemoglobin 27.7 PG (26-34); Mean Corpuscular Volume 83.8 fL (80-100); Monocytes Absolute Auto 500 /uL (0-900); Monocytes Percent Auto 8.5 % (3-14); Neutrophils Absolute Auto 3800 /uL (1500-7000); Platelet Count 221 X10^3/uL (150-400); Red Blood Cell Count 4.82 X10^6/uL (4.0-5.2); Red Cell Distribution Width 13.4 % (11.6-14.8); White Blood Cell Count 6.1 X10^3/uL (4.5-11.0)
[2023-02-10 14:57] LABS: HEMOLYSIS 20 (0-50); Iron 53 ug/dL (37-170)
[2023-02-10 15:00] LABS: Alanine Aminotransferase 35 IU/L (<35); Albumin 4.2 g/dL (3.5-5.0); Albumin Globulin Ratio 1.4 (1.0-2.8); Alkaline Phosphatase 69 U/L (38-126); Aspartate Aminotransferase 27 IU/L (14-36); BUN Creatinine Ratio 12.5 (6-22); Bilirubin Total 0.3 mg/dL (0.2-1.3); Blood Urea Nitrogen 5 mg/dL (7-17); Calcium 9.7 mg/dL (8.4-10.2); Carbon Dioxide 28 mmol/L (22-32); Chloride 101 mmol/L (98-107); Estimated Glomerular Filt Rate > 60 mL/min (>60); Glucose 191 mg/dL (70-100); HEMOLYSIS < 15 (0-50); Potassium 4.1 mmol/L (3.4-5.1); Sodium 137 mmol/L (137-145); Total Protein 7.2 g/dL (6.3-8.2)
[2023-02-10 15:08] LABS: Percent Iron Saturation 15 % (15-50); Total Iron Binding Capacity 365 ug/dL (265-497); Transferrin 258 mg/dL (206-381)
[2023-02-10 15:13] LABS: Hemoglobin A1C% w Est Avg Glu 10.4 % (4.0-6.0)
== END ==
PROVIDERS: Family Provider Family Medicine; PCP Family Medicine; Referring Provider Family Medicine; Visit Provider Family Medicine
DX: E03.9 Hypothyroidism, unspecified (principal); E11.65 Type 2 diabetes mellitus with hyperglycemia; D64.9 Anemia, unspecified; E11.9 Type 2 diabetes mellitus without complications
CPT/HCPCS: 36415; 80053; 83036; 83540; 83550; 85025

== ENCOUNTER → 2023-02-18 20:28 | Outpatient (ROUT) | payer OTHER, MEDICARE, SELFPAY ==
[2022-10-07 14:47] VITALS: BMI 47.4
[2023-02-18 21:53] LABS: Creatinine Urine Random 65.2 mg/dL
[2023-02-18 21:58] LABS: Microalbumi Creatinin Ratio Ur 10.7 ug/mg CR (<30); Microalbumin Urine Random 0.7 mg/dL (0-1.6)
== END ==
PROVIDERS: Family Provider Family Medicine; PCP Family Medicine; Visit Provider Family Medicine
DX: E11.9 Type 2 diabetes mellitus without complications (principal); I10 Essential (primary) hypertension
CPT/HCPCS: 82043; 82570

== ENCOUNTER 2023-03-09 23:51 | Emergency (ER) | payer OTHER, MEDICARE, SELFPAY ==
[2022-10-07 14:47] VITALS: BMI 47.4
[2023-03-09 23:53] VITALS: BP 139/90; PULSE 134; RESP 18; O2SAT 96; BMI 46.5
[2023-03-09 23:59] VITALS: PULSE 137; O2SAT 96
[2023-03-10] VITALS (8 sets, daily range): BP systolic 137–158; BP diastolic 79–96; PULSE 127–136; RESP 18–22; O2SAT 94–96
--- NOTE | 2023-03-10 00:08 | DI.RAD.S_ITS ---
PROCEDURE: XR CHEST 1V INDICATIONS: chest pain TECHNIQUE: One view of the chest was acquired. COMPARISON: [facility], CR, XR CHEST 1V, 09/26/2022, 15:24. [facility], CR, XR CHEST 1V, 09/19/2022, 20:37. FINDINGS: Surgical changes and devices: None. Lungs and pleura: Lungs are clear. No pleural effusions or pneumothorax. Mediastinum: Mediastinal contours appear normal. Heart size is normal. Bones and chest wall: No suspicious bony lesions. Overlying soft tissues appear unremarkable. IMPRESSION: No acute cardiopulmonary abnormality. Dictated by: Adair Gamez M.D. on 03/10/2023 at 0:52 Approved by: Adair Gamez M.D. on 03/10/2023 at 0:53
--- NOTE | 2023-03-10 00:24 | PC.NURSE ---
pt took lomotil for her diarrhea today which stopped it, her stools were black and tarry, then tonight she started having cp, pt states it feels similar to the cp she had when she had a PE, pt taking xarelto and has been for about 4 yrs and was on coumadin prior has never had black tarry stools before.
[2023-03-10 00:58] LABS: Alanine Aminotransferase 33 IU/L (<35); Albumin 4.3 g/dL (3.5-5.0); Albumin Globulin Ratio 1.1 (1.0-2.8); Alkaline Phosphatase 53 U/L (38-126); BUN Creatinine Ratio 25.6 (6-22); Bilirubin Total 0.5 mg/dL (0.2-1.3); Blood Urea Nitrogen 11 mg/dL (7-17); Calcium 9.7 mg/dL (8.4-10.2); Carbon Dioxide 26 mmol/L (22-32); Chloride 100 mmol/L (98-107); Creatine Kinase 79 U/L (30-135); Estimated Glomerular Filt Rate > 60 mL/min (>60); Globulin 3.9 g/dL (1.7-4.1); Glucose 193 mg/dL (70-100); Lipase 65 U/L (23-300); Magnesium 1.7 mg/dL (1.6-2.3); Sodium 138 mmol/L (137-145); Total Protein 8.2 g/dL (6.3-8.2)
[2023-03-10 00:59] LABS: HEMOLYSIS 183 (0-50)
[2023-03-10 01:01] LABS: INR 1.5 (0.9-1.3); Prothrombin Time 17.3 SECONDS (10.1-12.7)
[2023-03-10 01:04] LABS: Aspartate Aminotransferase 37 IU/L (14-36); PTT Partial Thromboplastin Tim 37 SECONDS (26-36); Potassium 4.4 mmol/L (3.4-5.1)
[2023-03-10 01:10] LABS: Troponin I < 0.012 ng/mL (0.01-0.034)
--- NOTE | 2023-03-10 01:10 | ED_ITS ---
HPI - Chest Pain General Chief Complaint: Chest Pain Stated Complaint: chest pain Time Seen by Provider: 03/09/23 23:58 Source: patient Mode of arrival: EMS History of Present Illness HPI narrative: 42-year-old woman with complex medical history including diabetes, morbid obesity, history of pulmonary embolism currently anticoagulated on rivaroxaban, severe anxiety and depression, sleep apnea not using CPAP, psychogenic nonepileptic seizures, sinus tach, chronic right bundle branch block, chronic intermittent chest pain with negative ischemic workup. Related Data Home Medications Medication Instructions Recorded Confirmed fluticasone 100 mcg-salmeterol 50 1 ea inhalation BID 07/16/22 02/18/23 mcg/dose blistr powdr for inhalation (Wixela Inhub) ascorbic acid (vitamin C) 500 mg 500 mg PO DAILY 07/28/22 02/18/23 tablet potassium gluconate 595 mg (99 mg) 595 mg PO DAILY 07/28/22 02/18/23 tablet vitamin B complex 1 cap PO DAILY 07/28/22 02/18/23 metoprolol succinate 25 mg 50 mg PO BID 10/10/22 02/18/23 tablet,extended release 24 hr docusate sodium 250 mg capsule 250 mg PO BID 12/03/22 02/18/23 (Col-Rite) ferrous sulfate 325 mg (65 mg 325 mg PO DAILY 12/03/22 02/18/23 iron) tablet vitamin B complex 1 tab PO DAILY 12/03/22 02/18/23 diltiazem HCl 120 mg 120 mg PO DAILY 12/29/22 02/18/23 capsule,extended release 24 hr Previous Rx's Medication Instructions Recorded levalbuterol tartrate 45 1 puff inhalation Q4-6H PRN 01/22/22 mcg/actuation aerosol inhaler shortness of breath or wheezing #15 grams meclizine 25 mg tablet See Rx Instructions .Route 07/14/22 .COMPLEX #90 tabs magnesium oxide 400 mg (241.3 mg 400 mg PO DAILY #30 tabs 07/18/22 magnesium) tablet doxepin 100 mg capsule 200 mg (2 x 100 mg) PO BEDTIME #60 10/22/22 caps glucose monitor #1 ea 12/01/22 glucose test strips #100 ea 12/01/22 ipratropium bromide 17 See Rx Instructions .Route 12/01/22 mcg/actuation HFA aerosol inhaler .COMPLEX #12.9 grams (Atrovent HFA) lancets #100 ea 12/01/22 furosemide 40 mg tablet 40 mg PO BID #180 tabs 12/03/22 levothyroxine 25 mcg tablet 25 mcg PO DAILY #90 tabs 12/03/22 metformin 500 mg tablet 1,000 mg (2 x 500 mg) PO BID #360 12/03/22 tabs rivaroxaban 20 mg tablet (Xarelto) 20 mg PO DAILY #90 tabs 12/03/22 spironolactone 25 mg tablet 12.5 mg (1/2 x 25 mg) PO DAILY #45 12/03/22 tabs semaglutide 0.25 mg or 0.5 mg (2 See Rx Instructions SUBCUT QWEEK 12/08/22 mg/3 mL) subcutaneous pen injector #3 mL (Ozempic) terazosin 2 mg capsule 2 mg PO ONCE PM #30 caps 12/22/22 omeprazole 20 mg capsule,delayed 20 mg PO BID #180 caps 12/30/22 release aripiprazole 30 mg tablet 30 mg PO BEDTIME #30 tabs 12/31/22 pregabalin 300 mg capsule 300 mg PO BID #180 caps 02/12/23 cyclobenzaprine 10 mg tablet See Rx Instructions .Route 02/24/23 .COMPLEX #90 tabs Allergies Allergy/AdvReac Type Severity Reaction Status Date / Time risperidone [From Risperdal] Allergy Verified 03/10/23 00:07 carisoprodol [CARISOPRODOL] AdvReac Severe urinary Verified 02/18/23 14:18 retention fosphenytoin AdvReac Severe Seizures Verified 02/18/23 14:18 Latex, Natural Rubber AdvReac Mild Rash Verified 02/18/23 14:18 Review of Systems Review of Systems Narrative: Pertinent positive and negative findings as per HPI Patient History Medical History Acetaminophen overdose of undetermined intent (12/2015) Alcoholism 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 Asthma Cervical radiculopathy Cubital tunnel syndrome DM type 2 (diabetes mellitus, type 2) DVT (deep venous thrombosis) Essential hypertension Fibromyalgia (03/02/15) Gastroesophageal reflux disease without esophagitis (03/02/15) Hypoxia Intraoperative cardiac arrest during non-cardiac surgery (11/2013) 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) Morbid obesity Narcotic habituation, continuous Nocturnal hypoxemia Obstipation LYLA (obstructive sleep apnea) Ovarian cyst Plantar fasciitis Psychogenic nonepileptic seizure Pulmonary embolism RBBB (right bundle branch block) Sinus tachycardia Status post laminectomy (12/14/15) Suicide attempt Tobacco abuse Tylenol overdose Urinary retention Surgical History H/O: hysterectomy History of carpal tunnel repair (~10/30/14) History of colonoscopy History of esophagogastroduodenoscopy (EGD) History of laminectomy History of laminectomy (~09/2016) History of lumbar spinal fusion (12/22/18) Hx of toe surgery (05/16/20) S/P epidural steroid injection (11/2013) S/P lumbar spinal fusion Status post dilation and curettage (2008) Family History Grandfather Diabetes mellitus Family/Other Pancreatic cancer Social History household members: spouse Smoking Status: Former smoker alcohol intake: never eating out: 1-3 times/week Type(s) of exercise: normal ROM and activity and sedentary lifestyle Smoking Status: Former smoker tobacco type: cigarettes alcohol intake frequency: other Substance Use Type: does not use Exam Initial Vital Signs Initial Vital Signs: Vital Signs Pulse Rate 134 H 03/09/23 23:53 Respiratory Rate 18 03/09/23 23:53 Blood Pressure 139/90 03/09/23 23:53 Pulse Oximetry 96 03/09/23 23:53 Oxygen Delivery Method Room Air 03/09/23 23:53 General: Chronically ill-appearing, BMI of 46.6 HEENT: Moist mucous membranes, normal sclera with reactive pupils, very dry scalp Neck: No JVD, supple Respiratory: Lungs are clear to auscultation, no wheezing no rales no rhonchi. Full and symmetrical air movement Cardiac: Tachycardic but regular without murmurs Abdomen: Obese, Soft, nontender, good bowel tones, no flank pain Skin: Warm and dry, no rashes Neurologic: Grossly neurologically intact with no obvious asymmetries or abnormalities Extremities: No trauma, chronic lower extremity edema with chronic venous stasis changes Psych: Cooperative, appropriate insight and affect Course Orders Ordered: ED Orders 03/10/23 00:08 XR chest 1V Stat EKG-12 Lead Stat 03/10/23 00:14 Complete Blood Count AUTO DIFF Stat Comprehensive Metabolic Panel Stat Lipase Stat Magnesium Stat PTT Partial Thromboplastin Aldo Stat Prothrombin Time INR Stat Troponin & CK Cardiac Panel Stat Vital Signs Vital signs: Vital Signs - 8 hr 03/09/23 23:53 03/09/23 23:59 03/10/23 00:00 Pulse Rate 134 H 137 H 136 H Respiratory Rate 18 Blood Pressure 139/90 Pulse Oximetry 96 96 96 Oxygen Delivery Method Room Air 03/10/23 00:01 03/10/23 00:01 03/10/23 00:30 Pulse Rate 132 H 134 H Respiratory Rate 19 Blood Pressure 139/90 Pulse Oximetry 95 95 Oxygen Delivery Method 03/10/23 00:32 03/10/23 00:32 Pulse Rate 132 H Respiratory Rate 22 Blood Pressure 140/79 Pulse Oximetry 94 Oxygen Delivery Method MDM - Chest Pain Lab Data 03/10/23 00:14 03/10/23 00:14 Labs: Lab Results 03/10/23 Range/Units 00:14 Sodium 138 (137-145) mmol/L Potassium 4.4 (3.4-5.1) mmol/L Chloride 100 (98-107) mmol/L Carbon Dioxide 26 (22-32) mmol/L BUN 11 (7-17) mg/dL Creatinine 0.43 L (0.52-1.04) mg/dL Estimated GFR > 60 (>60) mL/min BUN/Creatinine Ratio 25.6 H (6-22) Glucose 193 H (70-100) mg/dL Calcium 9.7 (8.4-10.2) mg/dL Magnesium 1.7 (1.6-2.3) mg/dL Total Bilirubin 0.5 (0.2-1.3) mg/dL AST 37 H (14-36) IU/L ALT 33 (<35) IU/L Alkaline Phosphatase 53 (38-126) U/L Total Creatine Kinase 79 (30-135) U/L Total Protein 8.2 (6.3-8.2) g/dL Albumin 4.3 (3.5-5.0) g/dL Globulin 3.9 (1.7-4.1) g/dL Albumin/Globulin Ratio 1.1 (1.0-2.8) Lipase 65 (23-300) U/L MDM Narrative Medical decision making narrative: CC: Rapid heart rate and chest pain Complicating co-morbidities: History of chest pain with negative ischemic workup to date, history of chronic sinus tachycardia currently on beta hakeem,, Data collected from: patient, Social determinants of health that may influence the patients condition: Medical records reviewed: Cardiology notes from January of 2023 your reviewed. Electrophysiology notes from November of 2022 reviewed regarding her inappropriate sinus tachycardia and at that time diltiazem was added to her metoprolol -she did not tolerate the diltiazem and remains on just metoprolol b.i.d. Most recent echocardiogram November of 2021 with ejection fraction at 60-65%. Pulmonary artery hypertension with pulmonary artery systolic pressures at 40 mm mmHg was appreciated. She was tachycardic through the study. Differential considered: Acute coronary syndrome, pulmonary embolism, pneumothorax, viral syndrome, anxiety Exam documented above, pertinent findings include: Morbidly obese, able to speak in complete sentences, rapid but regular rhythm, no rhonchi or wheezing appreciated, no abdominal tenderness noted, chronic venous stasis changes without acute cellulitis Lab Test results independently reviewed as above. Pertinent findings: CBC is unremarkable with no leukocytosis nor anemia Coagulation studies show slightly elevated protime 17.3 INR at 1.5 PTT is 37 she is on rivaroxaban Chemistries show normal renal function normal electrolytes. Sugar slightly elevated at 193. Initial troponin is undetectable Lipase is unremarkable Independently reviewed EKG sinus tachycardia at 1:35 a.m. with right bundle branch block question of 2-1 atrial flutter is entertained Imaging studies independently reviewed: Chest x-ray shows no acute abnormalities Treatments: With a question of 2-1 atrial flutter she is given a single dose of 6 mg of adenosine which slows her rhythm down enough to see she is clearly in a sinus tachycardia Re-evaluations: Patient is feeling better after fluids. She has questions about the black stool which is not guaiac positive and there is no evidence of acute anemia. Discussion:Morbidly obese woman able to give a complete and coherent history. Remains in a sinus tachycardia in the 120-130 range that is not responsive to fluid resuscitation. She is not complaining of fevers, or abdominal pain. She did note an episode of diarrhea with black stool that is not guaiac positive and there is no evidence of acute anemia. At this point I believe all of the issues identified are chronic and stable. There is no evidence of infection, acute coronary syndrome, worsening pulmonary embolism or pulmonary hypertension at this time she is safe for home discharge and there is no indication for additional workup, advanced imaging or hospitalization. Questions are answered and she is safe for discharge Discharge Plan Departure Patient Disposition: Home Clinical Impression: Regular sinus tachycardia Diarrhea Qualifiers: Diarrhea type: unspecified type Qualified Code(s): R19.7 - Diarrhea, unspecified Instructions: DI for Atypical Chest Pain Activity Restrictions/Additional Instructions: Thank you for coming in today Your workup was actually quite reassuring. There is no evidence of acute anemia or bleeding. I suspect that the black diarrhea that you noticed was due to medications or foods that you ate rather than blood. There is no evidence of heart attack or heart attack like syndrome. No evidence of recurrent pulmonary embolism, collapsed lungs, pathologic heart rhythms. Your rapid heart rate seems to be fairly close to your baseline. At this time I am reassured with findings as all being chronic, I believe it is safe for you to go home and at this time there is no indication for additional workup or hospitalization If you find that you are getting worse or develop any new symptoms, please feel free to return to the emergency department for further evaluation. Prescriptions: No Action metoprolol succinate 25 mg tablet extended release 24 hr 50 mg PO BID ferrous sulfate 325 mg (65 mg iron) tablet 325 mg PO DAILY docusate sodium [Col-Rite] 250 mg capsule 250 mg PO BID vitamin B complex Tablet 1 tab PO DAILY furosemide 40 mg tablet 40 mg PO BID Qty: 180 3RF Patient Comments: 60mg BID metformin 500 mg tablet 1,000 mg PO BID Qty: 360 3RF spironolactone 25 mg tablet 12.5 mg PO DAILY Qty: 45 3RF Xarelto 20 mg tablet 20 mg PO DAILY Qty: 90 1RF levothyroxine 25 mcg tablet 25 mcg PO DAILY Qty: 90 3RF aripiprazole 30 mg tablet 30 mg PO BEDTIME Qty: 30 5RF Rx Instructions: Take one 30mg tablet by mouth daily levalbuterol tartrate 45 mcg/actuation HFA aerosol inhaler 1 puff inhalation Q4-6H PRN (Reason: shortness of breath or wheezing) Qty: 15 2RF meclizine 25 mg tablet See Rx Instructions .ROUTE .COMPLEX Qty: 90 5RF Dose Instruction: TAKE 2 TABLETS BY MOUTH DAILY NEEDED FOR DIZZINESS OR VERTIGO Rx Instructions: TAKE up to 3 TABLETS BY MOUTH DAILY FOR DIZZINESS OR VERTIGO magnesium oxide 400 mg (241.3 mg magnesium) tablet 400 mg PO DAILY Qty: 30 0RF doxepin 100 mg capsule 200 mg PO BEDTIME Qty: 60 5RF Atrovent HFA 17 mcg/actuation HFA aerosol inhaler See Rx Instructions .ROUTE .COMPLEX Qty: 12.9 0RF Dose Instruction: INHALE 1 PUFF BY MOUTH EVERY 8 HOURS Rx Instructions: INHALE 1 PUFF BY MOUTH EVERY 8 HOURS (DME) glucose monitor See Rx Instructions .Route .MEDSUPPLY Qty: 1 0RF Rx Instructions: To test blood glucose daily (DME) glucose test strips See Rx Instructions .Route .MEDSUPPLY Qty: 100 3RF Rx Instructions: To test blood glucose daily (DME) lancets See Rx Instructions .Route .MEDSUPPLY Qty: 100 3RF Rx Instructions: to test blood glucose daily Ozempic 0.25 mg or 0.5 mg (2 mg/3 mL) pen injector See Rx Instructions SUBCUT QWEEK Qty: 3 2RF Rx Instructions: Inject 0.25 subcutaneously every week; for 4 weeks then increase to 0.5mg weekly for 4 weeks terazosin 2 mg capsule 2 mg PO ONCE PM Qty: 30 5RF omeprazole 20 mg capsule,delayed release(DR/EC) 20 mg PO BID Qty: 180 0RF pregabalin 300 mg capsule 300 mg PO BID Qty: 180 3RF Rx Instructions: take 1 capsule by mouth twice a day cyclobenzaprine 10 mg tablet See Rx Instructions .ROUTE .COMPLEX Qty: 90 0RF Dose Instruction: TAKE 1 TABLET BY MOUTH THREE TIMES DAILY NEEDED FOR MUSCLE SPASM Rx Instructions: TAKE 1 TABLET BY MOUTH THREE TIMES DAILY NEEDED FOR MUSCLE SPASM ascorbic acid (vitamin C) 500 mg tablet 500 mg PO DAILY vitamin B complex Capsule 1 cap PO DAILY potassium gluconate 595 mg (99 mg) tablet 595 mg PO DAILY fluticasone propion-salmeterol [Wixela Inhub] 100-50 mcg/dose blister with device 1 ea INHALATION BID Patient Comments: INHALE 1 PUFF BY MOUTH TWICE DAILY. RINSE MOUTH WITH WATER AFTER USE. DO NOT SWALLOW Rx Instructions: Rinse mouth with water after each use, do not swallow. diltiazem HCl 120 mg capsule,extended release 24hr 120 mg PO DAILY Referrals: Alejandra Lynch MD [Primary Care Provider] - Stand Alone Forms: Patient Portal/API
[2023-03-10 01:12] LABS: Add Manual Diff / Slide Review NO; Basophils Absolute Auto 100 /uL (0-100); Basophils Percent Auto 0.8 % (0-2); Eosinophils Absolute Auto 100 /uL (0-450); Eosinophils Percent Auto 1.6 % (2-4); Hematocrit 38.4 % (36-46); Hemoglobin 12.8 g/dL (12.0-16.0); Lymphocytes Absolute Auto 1600 /uL (1100-4500); Lymphocytes Percent Auto 19.3 % (25-40); Mean Corpuscular HGB Conc 33.5 % (30-36); Mean Corpuscular Hemoglobin 28.1 PG (26-34); Mean Corpuscular Volume 83.8 fL (80-100); Monocytes Absolute Auto 600 /uL (0-900); Monocytes Percent Auto 7.8 % (3-14); Neutrophils Absolute Auto 5900 /uL (1500-7000); Neutrophils Percent Auto 70.5 % (50-75); Platelet Count 207 X10^3/uL (150-400); Red Blood Cell Count 4.58 X10^6/uL (4.0-5.2); Red Cell Distribution Width 14.3 % (11.6-14.8); White Blood Cell Count 8.3 X10^3/uL (4.5-11.0)
[2023-03-10] MEDS: ADENOSINE 6 MG/2 ML VIAL IV (01:15)
[2023-03-10 01:59] LABS: D Dimer 231 ng/ml (<500)
[2023-03-10] MEDS: SODIUM CHLORIDE 0.9% 1,000 ML 1000 ML IV (01:59)
== END 2023-03-10 02:48 | disposition home or self-care (01) ==
PROVIDERS: Emergency Provider Emergency Medicine; Family Provider Family Medicine; PCP Family Medicine
DX: R00.0 Tachycardia, unspecified (principal); R19.7 Diarrhea, unspecified; Z79.01 Long term (current) use of anticoagulants; Z79.899 Other long term (current) drug therapy
CPT/HCPCS: 71045; 80053; 82550; 83690; 83735; 84484; 85025; 85379; 85610; 85730; 93005; 93010; 96361; 96374; 99284; J0153

== ENCOUNTER → 2023-04-23 13:27 | Outpatient (CLI) | payer OTHER, MEDICARE, SELFPAY ==
[2022-10-07 14:47] VITALS: BMI 47.4
--- NOTE | 2023-04-23 13:30 | DI.MG.S_ITS ---
BILATERAL DIGITAL SCREENING MAMMOGRAM 3D/2D WITH CAD: 04/23/2023 CLINICAL: Baseline exam. Routine screening. Family history of breast cancer. No prior exams were available for comparison. There are scattered areas of fibroglandular density in both breasts (category b / 25%-50% glandular tissue). Current study was also evaluated with a Computer Aided Detection (CAD) system. No significant masses, calcifications, or other findings are seen in either breast. IMPRESSION: NEGATIVE There is no mammographic evidence of malignancy. A 1 year screening mammogram is recommended. Based on the Tyrer Cuzick model (a risk assessment model) the patient's lifetime risk is 9.0% and her 10 year risk is 1.2%. According to the ACR, ACS, and NCCN guidelines, an annual breast MRI exam along with mammogram is recommended if the patient's lifetime risk is 20% or greater. This exam was interpreted at Station ID: [id number]. NOTE: For mammograms, a report in lay terms will be sent to the patient. Approximately 15% of breast malignancies will not be visualized mammographically. In the management of a palpable breast mass, a negative mammogram must not discourage biopsy of a clinically suspicious lesion. Electronically Signed By: Charlie melendez/nolan:04/23/2023 14:47:04 letter sent: Normal Exam ACR BI-RADS Category 1: Negative [id number]
== END ==
PROVIDERS: Family Provider Family Medicine; PCP Family Medicine; Referring Provider Family Medicine; Visit Provider Family Medicine
DX: Z12.31 Encounter for screening mammogram for malignant neoplasm of breast (principal); Z80.3 Family history of malignant neoplasm of breast
CPT/HCPCS: 77063; 77067

== ENCOUNTER → 2023-05-13 14:16 | Outpatient (CLI) | payer OTHER, MEDICARE, SELFPAY ==
[2022-10-07 14:47] VITALS: BMI 47.4
== END ==
PROVIDERS: Family Provider Family Medicine; PCP Family Medicine; Referring Provider Family Medicine; Visit Provider Family Medicine
DX: E11.65 Type 2 diabetes mellitus with hyperglycemia (principal)
CPT/HCPCS: 36415; 83036

== ENCOUNTER 2023-07-09 08:33 | Outpatient (CLI) | payer OTHER, MEDICARE, SELFPAY ==
[2022-10-07 14:47] VITALS: BMI 47.4
[2023-07-09] VITALS (10 sets, daily range): BP systolic 114–139; BP diastolic 55–89; PULSE 117–128; RESP 16–26; TEMP 36.8; O2SAT 94–100
--- NOTE | 2023-07-09 08:37 | DI.RAD.S_ITS ---
PROCEDURE: PAIN C/T INTERLAMINAR INJECT INDICATIONS: CERVICAL STENOSIS COMPARISON: None. FINDINGS: Fluoroscopic spot filming was performed to verify placement of spinal needles at the C6-7 level(s), as labeled on the films. Appropriate location(s) of the needle tip(s) was confirmed by injection of iodinated contrast. IMPRESSION: Intra procedural examination demonstrating appropriate positions of the needles. Dictated by: Justin Hernandez M.D. on 07/09/2023 at 11:32 Approved by: Justin Hernandez M.D. on 07/09/2023 at 11:33
[2023-07-09] MEDS: MIDAZOLAM 2 MG/2 ML VIAL IV ×2 (10:24→10:34)
[2023-07-09] MEDS: iopamidoL 15 ML VIAL 3 ML INJ (10:30)
[2023-07-09] MEDS: DEXAMETHASONE 10 MG/ML VIAL 20 MG INJ (10:31)
[2023-07-09] MEDS: BUPIVACAINE 0.25% (PF) VIAL 2 ML INJ (10:32)
--- NOTE | 2023-07-09 10:49 | P.PCN_ITS ---
Date/Time/Diagnoses Date of procedure: 07/09/23 Time of procedure: 10:49 Pre-procedure diagnosis: 1. CERVICAL STENOSIS, 2. CERVICAL HNP WITH UPPER EXTREMITY RADICULAR FEATURES Post-procedure diagnosis: same Procedure Notes Procedure: 1. FLUORSCOPICALLY GUIDED CONTRAST CONTROLLED INTERLAMINAR EPIDURAL STEROID INJECTION - C6/7 TL MIRNA Indications: Nuvia is referred by Dr. Lynch for treatment of Cervical HNP with Upper Extremity Paresthesias. Physician: Ezekiel Nava Total Fluoroscopy time (seconds): 32 Total sedation minutes: 20 Complications: none Procedure in detail & Post-procedure care: FINDINGS Cervical Stenosis due to disc deterioration and nerve root irritation and nerve root irritation DESCRIPTION OF PROCEDURE Fluoroscopically guided, contrast-controlled C6/7 translaminar epidural steroid injection with conscious sedation. Following review of allergy and review of potential side effects and complications, including, but not necessarily limited to, infection, allergic reaction, local tissue breakdown, temporary as well as permanent nerve injury, stroke, paralysis, and possible , the patient indicated that patient understood and agreed to proceed. An informed consent document was signed by the patient, witnessed by a nurse, and placed in the patient's chart. Additionally, other treatment options including modalities, medications, and physical therapy were reviewed with the patient. After review of previous anaesthesic history and IV conscious sedation the patient was deemed safe to proceed with today?s procedure with IV conscious sedation as ASA class II designation. Safety time-out was performed to confirm patient ID, procedure to be performed and site of procedure. IV sedation was accomplished with a combination of 4mg of Versed administered by the RN after DO order, titrated to patient comfort during the course of the procedure while the patient remained responsive to all verbal commands. In the prone position, following sterile prep and drape of the cervical region, the C6/7 translaminar space was identified fluoroscopically. The skin was anesthetized via a 25-gauge 1.5-inch needle with 1% lidocaine solution. At this point, a 25-gauge, 2.5-inch short bevel spinal needle was atraumatically introduced and advanced under fluoroscopic guidance into epidural space at the C6/7 translaminar space. Depth was confirmed on lateral view. Radiological data, including multiple fluoroscopic views of the cervical spine, reveal a spinal needle at the C6/7 translaminar space. Lateral views then show placement of the needle in the epidural space. Subsequent views show contrast material flowing superiorly and inferiorly in the epidural space. DSA fluoroscopy with live contrast injection, once again, confirmed no vascular or intrathecal uptake. At this point, using loss of resistance technique with saline and air, the epidural space was entered. Following negative aspiration, injection of approximately 1.5 cc of Isovue-200 with live fluoroscopy in the AP view confirmed epidural flow in the epidural space without vascular or intrathecal uptake observed. Subsequently, a test dose of 1 cc of 1% lidocaine solution was injected and patient was observed for two minutes without signs or symptoms of complications, including abdominal pain, shortness of breath, bilateral upper or lower extremity weakness, nausea and vomiting, prior to steroid injection. At this point, 2cc or 20mg of dexamethasone was then injected without incident. The patient tolerated the procedure well without signs or symptoms of comp lications prior to being transferred to the recovery area for further monitoring, The patient was then transferred to the recovery area where they were observed for an appropriate period of time after the injection. The patient reported a VAS score of 6 prior to the procedure and a post-procedure VAS of 0. POST OP INSTRUCTIONS The patient was provided a Pain Log to continue to record their response to the target-specific procedure prior to follow-up visit with the referring provider. Additionally, specific post-injection care instructions and a contact number to our office were provided if concerns arise regarding possible complications associated with the procedure are suspected.
== END 2023-07-09 11:10 | disposition home or self-care (01) ==
PROVIDERS: Family Provider Family Medicine; PCP Family Medicine; Referring Provider Physical Medicine & Rehabilitation; Visit Provider Physical Medicine & Rehabilitation
DX: M48.02 Spinal stenosis, cervical region (principal); M50.123 Cervical disc disorder at C6-C7 level with radiculopathy
CPT/HCPCS: 62321; 82962; 99152; J1100; J2250; J3490

== ENCOUNTER 2023-07-09 16:36 | Inpatient (IN) | payer OTHER, MEDICARE, SELFPAY ==
[2022-10-07 14:47] VITALS: BMI 47.4
[2023-07-09] VITALS (13 sets, daily range): BP systolic 123–194; BP diastolic 69–120; PULSE 124–135; RESP 14–41; TEMP 36.8–37.3; O2SAT 92–99; BMI 49.9; BMI 50.6
[2023-07-09] MEDS: METOPROLOL ER 50 MG TABLET PO (17:30)
[2023-07-09] MEDS: SODIUM CHLORIDE 0.9% 1,000 ML 1000 ML IV (17:51)
[2023-07-09 17:53] LABS: Add Manual Diff / Slide Review NO; Basophils Absolute Auto 0 /uL (0-100); Basophils Percent Auto 0.3 % (0-2); Eosinophils Absolute Auto 0 /uL (0-450); Eosinophils Percent Auto 0.1 % (2-4); Hematocrit 41.6 % (36-46); Hemoglobin 13.8 g/dL (12.0-16.0); Lymphocytes Absolute Auto 600 /uL (1100-4500); Lymphocytes Percent Auto 6.8 % (25-40); Mean Corpuscular HGB Conc 33.1 % (30-36); Mean Corpuscular Hemoglobin 28.8 PG (26-34); Monocytes Absolute Auto 100 /uL (0-900); Monocytes Percent Auto 0.7 % (3-14); Neutrophils Absolute Auto 7600 /uL (1500-7000); Neutrophils Percent Auto 92.1 % (50-75); Platelet Count 230 X10^3/uL (150-400); Red Blood Cell Count 4.78 X10^6/uL (4.0-5.2); Red Cell Distribution Width 13.4 % (11.6-14.8); White Blood Cell Count 8.2 X10^3/uL (4.5-11.0)
[2023-07-09 18:02] LABS: INR 0.9 (0.9-1.3); Prothrombin Time 10.1 SECONDS (9.4-12.5)
[2023-07-09 18:05] LABS: PTT Partial Thromboplastin Tim 33 SECONDS (25.1-36.5)
[2023-07-09 18:08] LABS: Albumin 4.8 g/dL (3.5-5.0); Albumin Globulin Ratio 1.2 (1.0-2.8); Alkaline Phosphatase 85 U/L (38-126); Aspartate Aminotransferase 31 IU/L (14-36); BUN Creatinine Ratio 20.4 (6-22); Bilirubin Total 0.5 mg/dL (0.2-1.3); Blood Urea Nitrogen 10 mg/dL (7-17); Calcium 10.1 mg/dL (8.4-10.2); Carbon Dioxide 19 mmol/L (22-32); Chloride 101 mmol/L (98-107); Creatine Kinase 73 U/L (30-135); Estimated Glomerular Filt Rate > 60 mL/min (>60); Glucose 462 mg/dL (70-100); HEMOLYSIS < 15 (0-50); Lipase 100 U/L (23-300); Magnesium 2.1 mg/dL (1.6-2.3); Potassium 4.7 mmol/L (3.4-5.1); Sodium 138 mmol/L (137-145); Total Protein 8.8 g/dL (6.3-8.2)
[2023-07-09 18:10] LABS: Lactate (Lactic Acid) 4.4 mmol/L (0.7-2.1)
[2023-07-09 18:14] LABS: Alanine Aminotransferase 53 IU/L (<35)
[2023-07-09 18:17] LABS: pH VBG 7.38 (7.33-7.43)
[2023-07-09 18:19] LABS: Troponin I < 0.012 ng/mL (0.01-0.034)
--- NOTE | 2023-07-09 18:19 | ED_ITS ---
HPI - General Adult General Chief complaint: Diabetic Problem Stated complaint: high blood sugar Time Seen by Provider: 07/09/23 18:19 Source: patient Mode of arrival: Ambulatory History of Present Illness HPI narrative: 42-year-old woman with type 2 diabetes on metformin and mounjaro weekly had epidural steroid injection in the neck today and noted the blood sugar was significantly elevated for 18 when she got home. She does not typically use insulin. No fever, chills, chest pain, dyspnea, orthopnea. She notes that she typically has an elevated heart rate. She typically is on Xarelto has not taken any for the last 3 days. Significantly hypertensive, tachycardic but not in acute distress on arrival. She notes that her neck is slightly tender after the epidural injection. She complains of mild diffuse abdominal tenderness but also notes she has not had a bowel movement for 24 hours. Related Data Home Medications Medication Instructions Recorded Confirmed ascorbic acid (vitamin C) 500 mg 500 mg PO DAILY 07/28/22 07/09/23 tablet potassium gluconate 595 mg (99 mg) 595 mg PO DAILY 07/28/22 07/09/23 tablet metoprolol succinate 25 mg 50 mg PO BID 10/10/22 07/09/23 tablet,extended release 24 hr docusate sodium 250 mg capsule 250 mg PO BID 12/03/22 07/09/23 (Col-Rite) ferrous sulfate 325 mg (65 mg 325 mg PO DAILY 12/03/22 07/09/23 iron) tablet vitamin B complex 1 tab PO DAILY 12/03/22 07/09/23 Previous Rx's Medication Instructions Recorded levalbuterol tartrate 45 1 puff inhalation Q4-6H PRN 01/22/22 mcg/actuation aerosol inhaler shortness of breath or wheezing #15 grams magnesium oxide 400 mg (241.3 mg 400 mg PO DAILY #30 tabs 07/18/22 magnesium) tablet glucose monitor #1 ea 12/01/22 glucose test strips #100 ea 12/01/22 lancets #100 ea 12/01/22 furosemide 40 mg tablet 40 mg PO BID #180 tabs 12/03/22 levothyroxine 25 mcg tablet 25 mcg PO DAILY #90 tabs 12/03/22 metformin 500 mg tablet 1,000 mg (2 x 500 mg) PO BID #360 12/03/22 tabs terazosin 2 mg capsule 2 mg PO ONCE PM #30 caps 12/22/22 omeprazole 20 mg capsule,delayed 20 mg PO BID #180 caps 12/30/22 release pregabalin 300 mg capsule 300 mg PO BID #180 caps 02/12/23 doxepin 100 mg capsule 200 mg (2 x 100 mg) PO BEDTIME #60 03/25/23 caps meclizine 25 mg tablet See Rx Instructions .Route 04/24/23 .COMPLEX #90 tabs rivaroxaban 20 mg tablet (Xarelto) 20 mg PO DAILY #90 tabs 04/27/23 cyclobenzaprine 10 mg tablet 10 mg PO 3XD PRN for muscle spasm 05/26/23 #90 tabs aripiprazole 30 mg tablet 30 mg PO BEDTIME #30 tabs 06/15/23 budesonide-formoterol HFA 160 2 puff inhalation BID #10.2 grams 06/22/23 mcg-4.5 mcg/actuation aerosol inhaler (Symbicort) diazepam 10 mg tablet (Valium) 10 mg PO .COMPLEX PRN 1-2 prior to 06/22/23 MRI and for possible steroid flare #10 tabs spironolactone 25 mg tablet 12.5 mg (1/2 x 25 mg) PO DAILY #45 06/22/23 tabs tirzepatide 2.5 mg/0.5 mL 2.5 mg (0.5 mL) SUBCUT QWEEK 4 06/25/23 subcutaneous pen injector weeks #2 mL (Mounjaro) ipratropium bromide 17 1 puff PO Q8H #12.9 grams 07/06/23 mcg/actuation HFA aerosol inhaler (Atrovent HFA) Allergies Allergy/AdvReac Type Severity Reaction Status Date / Time risperidone [From Risperdal] Allergy Verified 07/09/23 17:06 carisoprodol [CARISOPRODOL] AdvReac Severe urinary Verified 07/09/23 17:06 retention fosphenytoin AdvReac Severe Seizures Verified 07/09/23 17:06 Latex, Natural Rubber AdvReac Mild Rash Verified 07/09/23 17:06 Review of Systems Review of Systems Narrative: Pertinent positive and negative findings as per HPI Patient History Medical History Cervical radiculopathy 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) 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 Hypoxia Sinus tachycardia RBBB (right bundle branch block) Tobacco abuse Psychogenic nonepileptic seizure DM type 2 (diabetes mellitus, type 2) Alcoholism DVT (deep venous thrombosis) Narcotic habituation, continuous Pulmonary embolism Morbid obesity Asthma Essential hypertension LYLA (obstructive sleep apnea) Acetaminophen overdose of undetermined intent (12/2015) Suicide attempt Intraoperative cardiac arrest during non-cardiac surgery (11/2013) Ovarian cyst Plantar fasciitis 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 Cubital tunnel syndrome Status post laminectomy (12/14/15) Gastroesophageal reflux disease without esophagitis (03/02/15) Fibromyalgia (03/02/15) Tylenol overdose Obstipation Urinary retention Surgical History S/P lumbar spinal fusion H/O: hysterectomy Hx of toe surgery (05/16/20) History of carpal tunnel repair (~10/30/14) History of laminectomy (~09/2016) History of laminectomy History of colonoscopy History of esophagogastroduodenoscopy (EGD) History of lumbar spinal fusion (12/22/18) S/P epidural steroid injection (11/2013) Status post dilation and curettage (2008) Family History Grandfather Diabetes mellitus Family/Other Pancreatic cancer Social History household members: spouse Smoking Status: Former smoker alcohol intake: former eating out: 1-3 times/week Type(s) of exercise: normal ROM and activity and sedentary lifestyle Smoking Status: Former smoker tobacco type: cigarettes alcohol intake frequency: other Substance Use Type: does not use Exam Initial Vital Signs Initial Vital Signs: Vital Signs Temperature 98.4 F 07/09/23 17:00 Pulse Rate 135 H 07/09/23 17:00 Respiratory Rate 14 07/09/23 17:00 Blood Pressure 194/120 H 07/09/23 17:00 Pulse Oximetry 99 07/09/23 17:00 Oxygen Delivery Method Room Air 07/09/23 17:00 General: Healthy appearing, in no acute distress. Able to give a complete and coherent history. Well-nourished well-developed HEENT: Moist mucous membranes, normal sclera with reactive pupils, Neck: Small puncture wound from epidural injection, no irritation around that wound Respiratory: Lungs are clear to auscultation, no wheezing no rales no rhonchi. Full and symmetrical air movement Cardiac: Tachycardic but regular. No murmurs appreciated Abdomen: BMI of 50, Soft, moderate diffuse tenderness without rebound or guarding. No flank pain. Skin: Warm and dry, no rashes Neurologic: Grossly neurologically intact with no obvious asymmetries or abnormalities Extremities: No trauma, well perfused Psych: Cooperative, appropriate insight and affect Course Orders Ordered: ED Orders 07/10/23 04:46 Complete Blood Count AUTO DIFF Routine Comprehensive Metabolic Panel Routine Acetaminophen (Acetaminophen 325 Mg Tablet) 650 mg PO Q6H PRN PRN Reason: Fever/Mild Pain (1-3) Last Admin: 07/10/23 01:47 Dose: 650 mg Documented By: KASSY Albuterol (Albuterol 2.5 Mg/3 Ml Neb (Adult)) 2.5 mg INH Q4HRWA [facility] Last Admin: 07/09/23 21:40 Dose: 2.5 mg Documented By: TAMIE Albuterol (Albuterol 2.5 Mg/3 Ml Neb (Adult)) 2.5 mg INH Q2HR PRN PRN Reason: Shortness Of Breath Aripiprazole (Aripiprazole 10 Mg Tablet) 30 mg PO BEDTIME [facility] Last Admin: 07/09/23 21:10 Dose: 30 mg Documented By: KASSY Budesonide (Budesonide 0.5 Mg/2 Ml Neb) 0.5 mg INH RTBID KRISTIN Ferrous Sulfate (Ferrous Sulfate 325 Mg Tablet) 325 mg PO DAILY [facility] Hydromorphone HCl (Hydromorphone 0.5 Mg Inj) 1 mg IV Q1H PRN PRN Reason: Pain, Severe (7-10) INSULIN DRIP PREMIX (Myxredlin Drip Premix) 100 unit in 100 mls @ 6 mls/hr IV TITRATE KRISTIN; Protocol Last Admin: 07/10/23 03:26 Dose: 9 mls/hr, 9 mls/hr Documented By: KASSY Co-signed By: CT Titration: 07/10/23 03:26 Dose: Infused Documented By: KASSY Co-signed By: CT Titration: 07/10/23 01:05 Dose: 9 mls/hr, 9 mls/hr Documented By: KASSY Co-signed By: Titration: 07/10/23 00:00 Dose: 12 mls/hr, 12 mls/hr Documented By: KASSY Co-signed By: Titration: 07/09/23 23:00 Dose: 20 mls/hr, 20 mls/hr Documented By: KASSY Co-signed By: Titration: 07/09/23 22:00 Dose: 10 mls/hr, 10 mls/hr Documented By: KASSY Co-signed By: Titration: 07/09/23 21:00 Dose: 7 mls/hr, 7 mls/hr Documented By: KASSY Co-signed By: Titration: 07/09/23 20:42 Dose: 6 mls/hr, 6 mls/hr Documented By: ARIS Co-signed By: FAITMAH Admin: 07/09/23 19:56 Dose: 6 mls/hr, 6 mls/hr Documented By: ARIS Co-signed By: GEORGINA Dextrose/Sodium Chloride (Dextrose 5%-0.45% Ns) 1,000 mls @ 150 mls/hr IV CONT [facility] Last Admin: 07/10/23 02:12 Dose: 150 mls/hr Documented By: Infusion: 07/10/23 02:12 Dose: Infused Documented By: Infusion: 07/09/23 20:42 Dose: 150 mls/hr Documented By: Admin: 07/09/23 19:59 Dose: 150 mls/hr Documented By: ARIS Sodium Chloride (Normal Saline 0.9%) 1,000 mls @ 250 mls/hr IV CONT [facility] Last Admin: 07/10/23 03:26 Dose: 250 mls/hr Documented By: Infusion: 07/10/23 03:26 Dose: Infused Documented By: Admin: 07/09/23 23:36 Dose: 250 mls/hr Documented By: KASSY Metoprolol Succinate (Metoprolol Er 25 Mg Tablet) 50 mg PO BID [facility] Last Admin: 07/09/23 21:26 Dose: Not Given Documented By: KASSY Naloxone HCl (Naloxone 0.4 Mg/Ml Vial) 0.2 mg IV Q2MIN PRN PRN Reason: Opiate Reversal (Doxepin 100 Mg (Capsule)) 200 mg PO BEDTIME [facility] Last Admin: 07/09/23 21:12 Dose: Not Given Documented By: KASSY Oxycodone HCl (Oxycodone Ir 5 Mg Tablet) 5 mg PO Q3H PRN PRN Reason: Pain, Moderate (4-6) Last Admin: 07/10/23 01:47 Dose: 5 mg Documented By: KASSY Oxycodone HCl (Oxycodone Ir 10 Mg Tablet) 10 mg PO Q3H PRN PRN Reason: Pain, Severe (7-10) Pantoprazole Sodium (Pantoprazole Dr 20 Mg Tablet) 20 mg PO BID [facility] Last Admin: 07/09/23 21:11 Dose: 20 mg Documented By: KASSY Pregabalin (Pregabalin 75 Mg Capsule) 300 mg PO BID [facility] Last Admin: 07/09/23 21:10 Dose: 300 mg Documented By: KASSY Terazosin HCl (Terazosin 1 Mg Capsule) 2 mg PO BEDTIME [facility] Last Admin: 07/09/23 21:10 Dose: 2 mg Documented By: KASSY Discontinued Medications Diltiazem HCl (Diltiazem Sr 60 Mg) 120 mg PO NOW ONE Stop: 07/09/23 19:46 Last Admin: 07/09/23 20:14 Dose: 120 mg Documented By: ARIS Sodium Chloride (Normal Saline 0.9%) 1,000 mls @ 1,000 mls/hr IV BOLUS ONE Stop: 07/09/23 18:14 Last Infusion: 07/09/23 18:47 Dose: Infused Documented By: Admin: 07/09/23 17:51 Dose: 1,000 mls/hr Documented By: ANGELINA Sodium Chloride (Normal Saline 0.9%) 1,000 mls @ 500 mls/hr IV CONT [facility] Stop: 07/09/23 21:59 Last Infusion: 07/09/23 23:37 Dose: Infused Documented By: Admin: 07/09/23 21:26 Dose: 500 mls/hr Documented By: KASSY Insulin Human Regular (Insulin Regular 100 Unit/Ml 3 Ml Vial) 10 unit SUBCUT NOW ONE Stop: 07/09/23 19:10 Last Admin: 07/09/23 19:51 Dose: 10 unit Documented By: ARIS Co-signed By: FATIMAH Labetalol HCl (Labetalol 20 Mg/4 Ml Syringe) 20 mg IV NOW ONE Stop: 07/09/23 19:46 Last Admin: 07/09/23 20:08 Dose: 20 mg Documented By: ARIS Metoprolol Succinate (Metoprolol Er 50 Mg Tablet) 50 mg PO NOW ONE Stop: 07/09/23 17:10 Last Admin: 07/09/23 17:30 Dose: 50 mg Documented By: ANGELINA Oxycodone/Acetaminophen (Oxycodone/Acetaminophen 5/325 Tablet) 2 tab PO NOW ONE Stop: 07/09/23 19:46 Last Admin: 07/09/23 20:07 Dose: 2 tab Documented By: ARIS Vital Signs Vital signs: Vital Signs - 8 hr 07/09/23 17:00 Temperature 98.4 F Pulse Rate 135 H Respiratory Rate 14 Blood Pressure 194/120 H Pulse Oximetry 99 Oxygen Delivery Method Room Air Medical Decision Making Lab Data 07/10/23 04:46 07/10/23 04:46 Labs: Lab Results 07/09/23 07/09/23 07/09/23 Range/Units 17:43 17:50 18:46 WBC 8.2 (4.5-11.0) X10^3/uL RBC 4.78 (4.0-5.2) X10^6/uL Hgb 13.8 (12.0-16.0) g/dL Hct 41.6 (36-46) % MCV 87.0 (80-100) fL MCH 28.8 (26-34) PG MCHC 33.1 (30-36) % RDW 13.4 (11.6-14.8) % Plt Count 230 (150-400) X10^3/uL Neut % (Auto) 92.1 H (50-75) % Lymph % (Auto) 6.8 L (25-40) % Fergus % (Auto) 0.7 L (3-14) % Eos % (Auto) 0.1 L (2-4) % Baso % (Auto) 0.3 (0-2) % Neut # (Auto) 7600 H (0670-6451) /uL Lymph # (Auto) 600 L (5187-3808) /uL Fergus # (Auto) 100 (0-900) /uL Eos # (Auto) 0 (0-450) /uL Baso # (Auto) 0 (0-100) /uL PT 10.1 (9.4-12.5) SECONDS INR 0.9 (0.9-1.3) APTT 33 (25.1-36.5) SECONDS VBG pH 7.38 (7.33-7.43) Sodium 138 (137-145) mmol/L Potassium 4.7 (3.4-5.1) mmol/L Chloride 101 (98-107) mmol/L Carbon Dioxide 19 L (22-32) mmol/L BUN 10 (7-17) mg/dL Creatinine 0.49 L (0.52-1.04) mg/dL Estimated GFR > 60 (>60) mL/min BUN/Creatinine Ratio 20.4 (6-22) Glucose 462 H (70-100) mg/dL Lactate 4.4 H* (0.7-2.1) mmol/L Calcium 10.1 (8.4-10.2) mg/dL Magnesium 2.1 (1.6-2.3) mg/dL Total Bilirubin 0.5 (0.2-1.3) mg/dL AST 31 (14-36) IU/L ALT 53 H (<35) IU/L Alkaline Phosphatase 85 (38-126) U/L Total Creatine Kinase 73 (30-135) U/L Troponin I < 0.012 (0.01-0.034) ng/mL Total Protein 8.8 H (6.3-8.2) g/dL Albumin 4.8 (3.5-5.0) g/dL Globulin 4.0 (1.7-4.1) g/dL Albumin/Globulin Ratio 1.2 (1.0-2.8) Lipase 100 (23-300) U/L Procalcitonin 0.05 (<0.5) ng/mL Urine RBC None seen (0-5/HPF) Urine WBC 0-1/hpf (0-5/HPF) Ur Squamous Epith Cells 1-5 /hpf D (0-5/HPF) Urine Bacteria Occasional (0-1) (None) Urine Yeast 0-1/hpf (None) Ur Culture Indicated? Cult not indicated Vol Urine Centrifuged 10ml (spun) Ketones 0.53 H (<0.27) mmol/L 07/09/23 Range/Units 19:48 WBC (4.5-11.0) X10^3/uL RBC (4.0-5.2) X10^6/uL Hgb (12.0-16.0) g/dL Hct (36-46) % MCV (80-100) fL MCH (26-34) PG MCHC (30-36) % RDW (11.6-14.8) % Plt Count (150-400) X10^3/uL Neut % (Auto) (50-75) % Lymph % (Auto) (25-40) % Fergus % (Auto) (3-14) % Eos % (Auto) (2-4) % Baso % (Auto) (0-2) % Neut # (Auto) (2289-0648) /uL Lymph # (Auto) (7031-5233) /uL Fergus # (Auto) (0-900) /uL Eos # (Auto) (0-450) /uL Baso # (Auto) (0-100) /uL PT (9.4-12.5) SECONDS INR (0.9-1.3) APTT (25.1-36.5) SECONDS VBG pH (7.33-7.43) Sodium (137-145) mmol/L Potassium (3.4-5.1) mmol/L Chloride (98-107) mmol/L Carbon Dioxide (22-32) mmol/L BUN (7-17) mg/dL Creatinine (0.52-1.04) mg/dL Estimated GFR (>60) mL/min BUN/Creatinine Ratio (6-22) Glucose (70-100) mg/dL Lactate 2.5 H (0.7-2.1) mmol/L Calcium (8.4-10.2) mg/dL Magnesium (1.6-2.3) mg/dL Total Bilirubin (0.2-1.3) mg/dL AST (14-36) IU/L ALT (<35) IU/L Alkaline Phosphatase (38-126) U/L Total Creatine Kinase (30-135) U/L Troponin I (0.01-0.034) ng/mL Total Protein (6.3-8.2) g/dL Albumin (3.5-5.0) g/dL Globulin (1.7-4.1) g/dL Albumin/Globulin Ratio (1.0-2.8) Lipase (23-300) U/L Procalcitonin (<0.5) ng/mL Urine RBC (0-5/HPF) Urine WBC (0-5/HPF) Ur Squamous Epith Cells (0-5/HPF) Urine Bacteria (None) Urine Yeast (None) Ur Culture Indicated? Vol Urine Centrifuged Ketones (<0.27) mmol/L Point of Care Testing Test Results Negative Glucose POC 323 Urine Dip Bedside Urine Glucose 1000 mg/dl Bedside Urine Bilirubin - Negative Bedside Urine Ketone ++ 40 Urine Specific [place] 1.01 Bedside Urine Occult Blood - Negative Bedside Urine pH 7 Bedside Urine Protein - Negative Bedside Urine Urobilinogen - Negative Bedside Urine Nitrite - Negative Bedside Urine Leukocytes - Negative Esterase Point of care testing: Point of Care Testing Test Results Negative Glucose POC 323 Urine Dip Bedside Urine Glucose 1000 mg/dl Bedside Urine Bilirubin - Negative Bedside Urine Ketone ++ 40 Urine Specific [place] 1.01 Bedside Urine Occult Blood - Negative Bedside Urine pH 7 Bedside Urine Protein - Negative Bedside Urine Urobilinogen - Negative Bedside Urine Nitrite - Negative Bedside Urine Leukocytes - Negative Esterase MDM Narrative Medical decision making narrative: CC: 42-year-old woman with type 2 diabetes presents with significantly elevated blood sugar after steroid epidural injection Complicating co-morbidities: Type 2 diabetes, reports of intraoperative cardiac arrest during noncardiac surgery November of 2013, morbid obesity, prior embolism currently anticoagulated, known right bundle branch block, asthma, Data collected from: patient Social determinants of health that may influence the patients condition: Complex medical and psychosocial medical history Medical records reviewed: Primary care note from April 2023 as well as procedure notes from physiatry today with the epidural injection reviewed Differential considered: Elevated blood sugar secondary to steroid bolus, DKA, HHS, infection, Exam documented above, pertinent findings include: Patient is significantly hypertensive, tachycardic not complaining of severe pain in her abdomen. Not complaining of palpitations or chest pain. Lab Test results independently reviewed as above. Pertinent findings: CBC is unremarkable with no significant leukocytosis or anemia PT and PTT are both within normal limits Chemistries are notable for normal creatinine, normal electrolytes. Liver studies are not significantly elevated Anion gap is 18 with carbon dioxide at 19. Glucoses at 462 Venous blood gas Shows appropriate pH 7.38 Lactic acid is elevated at 4.4 Troponin is undetectable Lipase is within normal limits Procalcitonin is not elevated Urinalysis is benign Independently reviewed EKG: Sinus tachycardia with a known right bundle branch block, rate of 129. Possible lateral ST changes. Repeat EKG 2 hours later is similar with no evolution to suggest acute coronary syndrome or STEMI Consultations: Dr. Winters, admitting physician Treatments: She has given a L of fluid, 10 units of subcu regular insulin and non DKA insulin drip is initiated. She was given her usual oral metoprolol and oral diltiazem with no significant changes in heart rate or blood pressure. She will be given IV labetalol and if this is not effective in helping with blood pressure will consider initiating nicardipine. The plan is reviewed with the admitting physician Re-evaluations and discussion: Findings reviewed with Mojgan. Concern for significantly elevated blood sugars with elevated anion gap but not meeting criteria for diabetic ketoacidosis. Sugars typically are running in the 2-300 range and she likely is going to be an appropriate candidate for adding long- acting insulin at the least. Certainly needs blood sugars down as the steroid injection for her chronic neck pain clearly exacerbated her sugars this afternoon. We will need continued oral and IV management for her significant hypertension. We will continue to observe her sinus tachycardia with interventions above including fluid replacement and pain control. Patient will be admitted to the intensive care unit for further management. At this time there is no evidence of infection/sepsis. Antibiotics were not initiated. Critical Care Time Critical Care Time Critical Care Time: Yes Total Critical Care Time: 33 Attestation: Critical care time is separate from other billable procedures. There is a high probability of a significant, sudden or life-threatening deterioration that requires my full and direct attention, intervention and personal management. 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
[2023-07-09 18:25] LABS: Procalcitonin 0.05 ng/mL (<0.5)
[2023-07-09 19:15] LABS: Urine Volume 10mL (spun)
[2023-07-09 19:16] LABS: Bacteria Urine Occasional (0-1); Culture Indicated Urine Cult Not Indicated; RBC Urine None Seen (0-5/HPF); Squamous Epithelial Cell Urine 1-5 /HPF (0-5/HPF); WBC Urine 0-1/HPF (0-5/HPF)
[2023-07-09 19:30] LABS: Reflexed Lactate in 2 Hours Y
[2023-07-09 19:33] LABS: Ketones (Beta-Hydroxybutyrate) 0.53 mmol/L (<0.27)
[2023-07-09] MEDS: INSULIN REGULAR 100 UNIT/ML 3 ML VIAL 10 UNIT SUBCUT (19:51)
[2023-07-09] MEDS: INSULIN DRIP PREMIX 100 UNIT/100 ML PLAST..BAG 6 UNIT IV (19:56)
[2023-07-09] MEDS: DEXTROSE 5%-0.45% NS 1,000 ML 150 ML IV (19:59)
[2023-07-09] MEDS: OXYCODONE/ACETAMINOPHEN 5/325 TABLET 2 TAB PO (20:07)
[2023-07-09 20:08] LABS: Lactate 2HR (Lactic Acid Rflx) 2.5 mmol/L (0.7-2.1)
[2023-07-09] MEDS: LABETALOL 20 MG/4 ML SYRINGE IV (20:08)
[2023-07-09] MEDS: dilTIAZem SR 60 MG 120 MG PO (20:14)
[2023-07-09] MEDS: TERAZOSIN 1 MG CAPSULE 2 MG PO (21:10)
[2023-07-09] MEDS: ARIPiprazole 10 MG TABLET 30 MG PO (21:10)
[2023-07-09] MEDS: PREGABALIN 75 MG CAPSULE 300 MG PO (21:10)
[2023-07-09] MEDS: PANTOPRAZOLE DR 20 MG TABLET PO (21:11)
[2023-07-09] MEDS: SODIUM CHLORIDE 0.9% 1,000 ML 500 ML IV (21:26)
[2023-07-09] MEDS: ALBUTEROL 2.5 MG/3 ML NEB (ADULT) INH (21:40)
[2023-07-09] MEDS: SODIUM CHLORIDE 0.9% 1,000 ML 250 ML IV (23:36)
[2023-07-10] VITALS (34 sets, daily range): BP systolic 113–130; BP diastolic 55–84; PULSE 109–230; RESP 17–39; TEMP 36.4–36.8; O2SAT 92–97
[2023-07-10] MEDS: ACETAMINOPHEN 325 MG TABLET 650 MG PO ×2 (01:47→16:33)
[2023-07-10] MEDS: OXYCODONE IR 5 MG TABLET PO ×2 (01:47→21:24)
[2023-07-10] MEDS: DEXTROSE 5%-0.45% NS 1,000 ML 150 ML IV ×2 (02:12→07:46)
[2023-07-10 03:18] LABS: MRSA (Nasal) PCR Not Detected (Not Detect)
[2023-07-10] MEDS: INSULIN DRIP PREMIX 100 UNIT/100 ML PLAST..BAG 9 UNIT IV (03:26)
[2023-07-10] MEDS: SODIUM CHLORIDE 0.9% 1,000 ML 250 ML IV ×2 (03:26→07:46)
[2023-07-10 05:03] LABS: Add Manual Diff / Slide Review NO; Basophils Absolute Auto 0 /uL (0-100); Basophils Percent Auto 0.3 % (0-2); Eosinophils Absolute Auto 0 /uL (0-450); Eosinophils Percent Auto 0.1 % (2-4); Hematocrit 35.7 % (36-46); Hemoglobin 11.8 g/dL (12.0-16.0); Lymphocytes Absolute Auto 700 /uL (1100-4500); Lymphocytes Percent Auto 9.7 % (25-40); Mean Corpuscular HGB Conc 33.1 % (30-36); Mean Corpuscular Hemoglobin 28.8 PG (26-34); Monocytes Absolute Auto 400 /uL (0-900); Monocytes Percent Auto 6.1 % (3-14); Neutrophils Absolute Auto 5800 /uL (1500-7000); Neutrophils Percent Auto 83.8 % (50-75); Platelet Count 205 X10^3/uL (150-400); Red Cell Distribution Width 13.1 % (11.6-14.8); White Blood Cell Count 6.9 X10^3/uL (4.5-11.0)
[2023-07-10 05:17] LABS: Alanine Aminotransferase 24 IU/L (<35); Albumin 3.7 g/dL (3.5-5.0); Albumin Globulin Ratio 1.1 (1.0-2.8); Alkaline Phosphatase 57 U/L (38-126); Aspartate Aminotransferase 19 IU/L (14-36); BUN Creatinine Ratio 16.2 (6-22); Bilirubin Total 0.4 mg/dL (0.2-1.3); Blood Urea Nitrogen 6 mg/dL (7-17); Calcium 8.8 mg/dL (8.4-10.2); Carbon Dioxide 23 mmol/L (22-32); Chloride 109 mmol/L (98-107); Estimated Glomerular Filt Rate > 60 mL/min (>60); Globulin 3.3 g/dL (1.7-4.1); Glucose 197 mg/dL (70-100); HEMOLYSIS < 15 (0-50); Potassium 3.9 mmol/L (3.4-5.1); Sodium 140 mmol/L (137-145)
--- NOTE | 2023-07-10 06:04 | PC.NURSE ---
Admitting Manager Note-Patient admitted to ICU room 227 at 2034. A/Ox4, able to transfer from stretcher to bed with SBA. Insulin gtt infusing at 6ml/hr per Non-DKA algorithm, titrated per protocol, see flow sheet, D51/2NS @ 150ml/hr, 1000ml NS bolus given, followed by NS @ 250ml/hr to infuse with D51/2NS per Dr Winters. ST initially 120s, down to 110 by am, BP stable, see vital trends, placed on 3L NC overnight, patient states she wears Bipap at night with 3L O2, SpO2 87-95% while sleeping.
[2023-07-10] MEDS: METOPROLOL ER 25 MG TABLET 50 MG PO ×2 (08:28→21:24)
[2023-07-10] MEDS: PREGABALIN 75 MG CAPSULE 300 MG PO ×2 (08:28→21:13)
[2023-07-10] MEDS: PANTOPRAZOLE DR 20 MG TABLET PO ×2 (08:28→21:13)
[2023-07-10] MEDS: FERROUS SULFATE 325 MG TABLET PO (08:29)
--- NOTE | 2023-07-10 08:33 | DI.RAD.S_ITS ---
PROCEDURE: XR CHEST 1V INDICATIONS: SOB, swelling TECHNIQUE: One view of the chest was acquired. COMPARISON: [facility], CR, XR CHEST 1V, 03/10/2023, 0:25. [facility], CR, XR CHEST 1V, 09/26/2022, 15:24. FINDINGS: Surgical changes and devices: None. Lungs and pleura: Linear opacities within the peripheral left mid and lower lung zones.. No pleural effusions or pneumothorax. Mediastinum: Mediastinal contours appear normal. Heart size is normal. Bones and chest wall: No suspicious bony lesions. Overlying soft tissues appear unremarkable. IMPRESSION: Linear opacities within the peripheral left mid and lower lung zones, may represent atelectasis or scarring, infection is not excluded. Recommend radiographic follow-up to resolution. No definite radiographic evidence of pulmonary edema. Dictated by: Justin Hernandez M.D. on 07/10/2023 at 9:00 Approved by: Justin Hernandez M.D. on 07/10/2023 at 9:01
--- NOTE | 2023-07-10 08:39 | PM.HP.1 ---
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 The pt reports that she receive a cervical steroid injection yesterday to help with her chronic pain. Her blood sugar prior to injection was in the 200s. When she got home, she began feeling nauseous and lightheaded. She took her blood sugar and it was > 400. She contacted our office, and was instructed to go to the ED for additional evaluation. The pt denies any associated chest pain. She has been feeling mildly more SOB than usual for the past few days. She has been more swollen for the last couple weeks. She had mild associated epigastric abdominal pain. In the ED, the pts blood sugar was found to be elevated to 462. Her lactate was 4.4. Ketones were elevated. Anion gap was minimally elevated. No cognitive changes. She was initiated on IVF, insulin drip. Her BP initially was elevated to severe range, and the pt was given IV Labetalol with good response. She was admitted to the ICU on insulin drip. 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) 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 Hypoxia Sinus tachycardia RBBB (right bundle branch block) Tobacco abuse Psychogenic nonepileptic seizure DM type 2 (diabetes mellitus, type 2) Alcoholism DVT (deep venous thrombosis) Narcotic habituation, continuous Pulmonary embolism Morbid obesity Asthma Essential hypertension LYLA (obstructive sleep apnea) Acetaminophen overdose of undetermined intent (12/2015) Suicide attempt Intraoperative cardiac arrest during non-cardiac surgery (11/2013) Ovarian cyst Plantar fasciitis 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 Cubital tunnel syndrome Status post laminectomy (12/14/15) Gastroesophageal reflux disease without esophagitis (03/02/15) Fibromyalgia (03/02/15) Tylenol overdose Obstipation Urinary retention Surgical History S/P lumbar spinal fusion H/O: hysterectomy Hx of toe surgery (05/16/20) History of carpal tunnel repair (~10/30/14) History of laminectomy (~09/2016) History of laminectomy History of colonoscopy History of esophagogastroduodenoscopy (EGD) History of lumbar spinal fusion (12/22/18) S/P epidural steroid injection (11/2013) Status post dilation and curettage (2008) Family History Grandfather Diabetes mellitus Family/Other Pancreatic cancer Social History household members: spouse Smoking Status: Former smoker alcohol intake: former eating out: 1-3 times/week Type(s) of exercise: normal ROM and activity and sedentary lifestyle Meds Home Medications and Allergies Home Medications Medication Instructions Recorded Confirmed Type levalbuterol tartrate 45 1 puff inhalation Q4-6H PRN 01/22/22 07/09/23 Rx mcg/actuation aerosol inhaler shortness of breath or wheezing #15 grams magnesium oxide 400 mg (241.3 mg 400 mg PO DAILY #30 tabs 07/18/22 07/09/23 Rx magnesium) tablet ascorbic acid (vitamin C) 500 mg 500 mg PO DAILY 07/28/22 07/09/23 History tablet potassium gluconate 595 mg (99 mg) 595 mg PO DAILY 07/28/22 07/09/23 History tablet metoprolol succinate 25 mg 50 mg PO BID 10/10/22 07/09/23 History tablet,extended release 24 hr glucose monitor #1 ea 12/01/22 07/09/23 Rx glucose test strips #100 ea 12/01/22 07/09/23 Rx lancets #100 ea 12/01/22 07/09/23 Rx docusate sodium 250 mg capsule 250 mg PO BID 12/03/22 07/09/23 History (Col-Rite) ferrous sulfate 325 mg (65 mg 325 mg PO DAILY 12/03/22 07/09/23 History iron) tablet furosemide 40 mg tablet 40 mg PO BID #180 tabs 12/03/22 07/09/23 Rx levothyroxine 25 mcg tablet 25 mcg PO DAILY #90 tabs 12/03/22 07/09/23 Rx metformin 500 mg tablet 1,000 mg (2 x 500 mg) PO BID #360 12/03/22 07/09/23 Rx tabs vitamin B complex 1 tab PO DAILY 12/03/22 07/09/23 History terazosin 2 mg capsule 2 mg PO ONCE PM #30 caps 12/22/22 07/09/23 Rx omeprazole 20 mg capsule,delayed 20 mg PO BID #180 caps 12/30/22 07/09/23 Rx release pregabalin 300 mg capsule 300 mg PO BID #180 caps 02/12/23 07/09/23 Rx doxepin 100 mg capsule 200 mg (2 x 100 mg) PO BEDTIME #60 03/25/23 07/09/23 Rx caps meclizine 25 mg tablet See Rx Instructions .Route 04/24/23 07/09/23 Rx .COMPLEX #90 tabs rivaroxaban 20 mg tablet (Xarelto) 20 mg PO DAILY #90 tabs 04/27/23 07/09/23 Rx cyclobenzaprine 10 mg tablet 10 mg PO 3XD PRN for muscle spasm 05/26/23 07/09/23 Rx #90 tabs aripiprazole 30 mg tablet 30 mg PO BEDTIME #30 tabs 06/15/23 07/09/23 Rx budesonide-formoterol HFA 160 2 puff inhalation BID #10.2 grams 06/22/23 07/09/23 Rx mcg-4.5 mcg/actuation aerosol inhaler (Symbicort) diazepam 10 mg tablet (Valium) 10 mg PO .COMPLEX PRN 1-2 prior to 06/22/23 07/09/23 Rx MRI and for possible steroid flare #10 tabs spironolactone 25 mg tablet 12.5 mg (1/2 x 25 mg) PO DAILY #45 06/22/23 07/09/23 Rx tabs tirzepatide 2.5 mg/0.5 mL 2.5 mg (0.5 mL) SUBCUT QWEEK 4 06/25/23 07/09/23 Rx subcutaneous pen injector weeks #2 mL (Mounjaro) ipratropium bromide 17 1 puff PO Q8H #12.9 grams 07/06/23 07/09/23 Rx mcg/actuation HFA aerosol inhaler (Atrovent HFA) Allergies Allergy/AdvReac Type Severity Reaction Status Date / Time risperidone [From Risperdal] Allergy Verified 07/09/23 17:06 carisoprodol [CARISOPRODOL] AdvReac Severe urinary Verified 07/09/23 17:06 retention fosphenytoin AdvReac Severe Seizures Verified 07/09/23 17:06 Latex, Natural Rubber AdvReac Mild Rash Verified 07/09/23 17:06 Exam Vital Signs (past 8 hours): - 07/10/23 01:00 07/10/23 02:00 07/10/23 03:00 Temperature 98.0 F Pulse Rate 123 H 114 H 119 H Respiratory Rate 25 H 21 19 Blood Pressure 114/55 L 113/58 L 122/62 Pulse Oximetry 96 93 96 Oxygen Flow Rate 3 3 3 07/10/23 03:00 07/10/23 03:00 07/10/23 03:15 Temperature Pulse Rate 120 H 118 H Respiratory Rate 25 H 18 Blood Pressure 122/62 Pulse Oximetry 94 94 Oxygen Flow Rate 07/10/23 03:30 07/10/23 03:45 07/10/23 04:00 Temperature 98.3 F Pulse Rate 118 H 117 H 119 H Respiratory Rate 26 H 18 23 Blood Pressure 123/58 L Pulse Oximetry 95 95 96 Oxygen Flow Rate 3 07/10/23 04:00 07/10/23 04:00 07/10/23 04:15 Temperature Pulse Rate 117 H 117 H Respiratory Rate 19 24 Blood Pressure 123/58 L Pulse Oximetry 96 95 Oxygen Flow Rate 07/10/23 04:30 07/10/23 04:45 07/10/23 05:00 Temperature Pulse Rate 116 H 116 H 113 H Respiratory Rate 19 25 H 17 Blood Pressure 116/58 L Pulse Oximetry 94 95 94 Oxygen Flow Rate 3 07/10/23 05:00 07/10/23 05:01 07/10/23 05:01 Temperature Pulse Rate 114 H 116 H Respiratory Rate 22 23 Blood Pressure 116/58 L Pulse Oximetry 95 94 Oxygen Flow Rate 07/10/23 05:15 07/10/23 05:30 07/10/23 05:45 Temperature Pulse Rate 111 H 113 H 112 H Respiratory Rate 20 18 23 Blood Pressure Pulse Oximetry 93 94 92 Oxygen Flow Rate 07/10/23 06:00 07/10/23 06:00 07/10/23 06:00 Temperature Pulse Rate 114 H 116 H Respiratory Rate 18 29 H Blood Pressure 126/60 125/60 Pulse Oximetry 95 95 Oxygen Flow Rate 3 07/10/23 06:15 07/10/23 06:30 07/10/23 06:45 Temperature Pulse Rate 114 H 114 H 114 H Respiratory Rate 21 20 18 Blood Pressure Pulse Oximetry 92 94 92 Oxygen Flow Rate 07/10/23 07:00 07/10/23 07:00 07/10/23 07:15 Temperature Pulse Rate 115 H 111 H Respiratory Rate 39 H 23 Blood Pressure 122/60 Pulse Oximetry 95 92 Oxygen Flow Rate 07/10/23 07:30 07/10/23 08:28 Temperature Pulse Rate 122 H 116 H Respiratory Rate 31 H Blood Pressure 119/61 Pulse Oximetry Oxygen Flow Rate Fraction of Inspired Oxygen 21 SaO2/FiO2 Ratio 438 Oxygen Delivery Method Room Air Oxygen Flow Rate 3 Narrative Exam Narrative: Gen: NAD, sitting comfortably in bed HEENT: normal cephalic, atraumatic, sclera clear Neck: no LAD, no JVD CV: tachycardic, regular rhythm, no murmurs Resp: clear to auscultation bilaterally Abd: soft, nontender, normoactive bowel sounds, no rebound/guarding/rigidity Ext: 1+ pitting edema bilateral LE Objective Labs 07/10/23 04:46 07/10/23 04:46 Labs: Laboratory Results - last 24 hr 07/09/23 07/09/23 07/09/23 17:43 17:50 18:46 WBC 8.2 RBC 4.78 Hgb 13.8 Hct 41.6 MCV 87.0 MCH 28.8 MCHC 33.1 RDW 13.4 Plt Count 230 Neut % (Auto) 92.1 H Lymph % (Auto) 6.8 L Wil[place] % (Auto) 0.7 L Eos % (Auto) 0.1 L Baso % (Auto) 0.3 Neut # (Auto) 7600 H Lymph # (Auto) 600 L [place] # (Auto) 100 Eos # (Auto) 0 Baso # (Auto) 0 PT 10.1 INR 0.9 APTT 33 VBG pH 7.38 Sodium 138 Potassium 4.7 Chloride 101 Carbon Dioxide 19 L BUN 10 Creatinine 0.49 L Estimated GFR > 60 BUN/Creatinine Ratio 20.4 Glucose 462 H Lactate 4.4 H* Calcium 10.1 Magnesium 2.1 Total Bilirubin 0.5 AST 31 ALT 53 H Alkaline Phosphatase 85 Total Creatine Kinase 73 Troponin I < 0.012 Total Protein 8.8 H Albumin 4.8 Globulin 4.0 Albumin/Globulin Ratio 1.2 Lipase 100 Procalcitonin 0.05 Urine RBC None seen Urine WBC 0-1/hpf Ur Squamous Epith Cells 1-5 /hpf D Urine Bacteria Occasional (0-1) Urine Yeast 0-1/hpf Ur Culture Indicated? Cult not indicated Vol Urine Centrifuged 10ml (spun) Nasal Screen MRSA (PCR) Ketones 0.53 H 07/09/23 07/10/23 07/10/23 19:48 02:02 04:46 WBC 6.9 RBC 4.10 Hgb 11.8 L Hct 35.7 L MCV 87.0 MCH 28.8 MCHC 33.1 RDW 13.1 Plt Count 205 Neut % (Auto) 83.8 H Lymph % (Auto) 9.7 L Wilbarger % (Auto) 6.1 Eos % (Auto) 0.1 L Baso % (Auto) 0.3 Neut # (Auto) 5800 Lymph # (Auto) 700 L [place] # (Auto) 400 Eos # (Auto) 0 Baso # (Auto) 0 PT INR APTT VBG pH Sodium 140 Potassium 3.9 Chloride 109 H Carbon Dioxide 23 BUN 6 L Creatinine 0.37 L Estimated GFR > 60 BUN/Creatinine Ratio 16.2 Glucose 197 H D Lactate 2.5 H Calcium 8.8 Magnesium Total Bilirubin 0.4 AST 19 ALT 24 Alkaline Phosphatase 57 Total Creatine Kinase Troponin I Total Protein 7.0 Albumin 3.7 Globulin 3.3 Albumin/Globulin Ratio 1.1 Lipase Procalcitonin Urine RBC Urine WBC Ur Squamous Epith Cells Urine Bacteria Urine Yeast Ur Culture Indicated? 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 Pt with severe hyperglycemia, not fully meeting criteria for DKA, and placed on an insulin drip in the ED. 1) Hyperglycemia: Not meeting criteria for DKA/HHS. On insulin drip. Blood sugars now improved to the 190s. - D/C insulin drip - Start Lantus 20 units daily. Discussed with pt, and she is willing to continue insulin at home - Pt will need teaching regarding administration - Medium dose mealtime sliding scale - ACHS blood sugar checks - Continue to hold home Metformin, Mounjaro; will plan to restart at discharge 2) Hypertension: Pts BP initially quite elevated, now normalized. Received IV Labetalol in the ED. - Continue home Diltiazem, Metoprolol, Spirinolactone 3) LE edema: Chronic. Does appear slightly worse than usual and pt does endorse increased SOB. - Restart home Lasix - CXR to eval for pulmonary edema 4) Hx of recurrent DVT: Xarelto held due to spinal injection - Restart Xarelto 5) Depression/Anxiety: Pt with increased stress recently due to her mother being on hospice. Followed by Psychiatry as an outpatient. - Continue home Abilify 6) Asthma: Overall stable. No wheezing. - Continue home Pulmicort 7) Fibromyalgia: Stable - Continue home Cyclobenzaprine 8) Morbid obesity: Complicating diabetic control 9) LYLA: Stable. Chronically on oxygen with CPAP at home. - Continue O2 supplementation as needed DVT ppx: Xarelto as above Code: Full FEN: Carb control diet Dispo: Pending ongoing stabilization of blood sugars on subq insulin. Anticipate potential d/c tomorrow. Will have PT see prior to d/c to assist with balance issues. Quality VTE Deep Vein Thrombosis/Pulmonary Embolism Present on Admission: No
[2023-07-10] MEDS: SPIRONOLACTONE 25 MG TABLET 12.5 MG PO (09:23)
[2023-07-10] MEDS: RIVAROXABAN 10 MG TABLET 20 MG PO (09:23)
[2023-07-10] MEDS: DOCUSATE 100 MG CAPSULE 200 MG PO (09:23)
[2023-07-10] MEDS: MAGNESIUM OXIDE 400 MG TABLET PO (09:23)
[2023-07-10] MEDS: FUROSEMIDE 40 MG TABLET PO ×2 (09:24→21:12)
[2023-07-10] MEDS: LEVOTHYROXINE 25 MCG TABLET PO (09:29)
[2023-07-10] MEDS: ALBUTEROL 2.5 MG/3 ML NEB (ADULT) INH ×3 (09:31→17:48)
[2023-07-10] MEDS: BUDESONIDE 0.5 MG/2 ML NEB INH (09:31)
[2023-07-10] MEDS: INSULIN GLARGINE 100 UNIT/ML 3ML PEN 20 UNIT SUBCUT (09:56)
[2023-07-10] MEDS: CYCLOBENZAPRINE 10 MG TABLET PO (11:07)
[2023-07-10] MEDS: INSULIN LISPRO 100 UNIT/ML 3ML VIAL SUBCUT ×3 (12:31→21:17)
--- NOTE | 2023-07-10 15:06 | CM.DANOTE ---
Initial DCP Assessment Note Pt is a 42 yo female, resident of [place], Type II Diabetic, arrives with hyperglycemia and hypertension PCP: Alejandra Lynch Payer: Healthcare Management/[employer] Reviewed chart, met w/patient and her spouse, introduced self and role. Patient and spouse live together, patient is indp w/o need for caregiver for higher ADLs, ambulates with walker. Spouse assist patient with getting into the shower, and does all cooking, cleaning and driving. Patient reports she will be getting ankle braces soon r/t a deformed ankle which effects her gait. Patient receives disability benefits and spouse works time study engineer. Discussed benefits covered with [facility] including [employer] program and patient/spouse not sure they will qualify, report they made too much in joint income for food stamps. Patient confirms she sees psychiatrist Dr Roberts in the outpatient setting to help manage her generalized anxiety disorder and major depressive disorder. Patient plans to return home w/spouse upon discharge; No barriers identified at this time to patient's safe discharge home w/family to assist; close outpatient f/u recommended. CM team will plan to follow closely in case any DC needs or concerns arise. JEANNINE Castrejon Discharge Planning/Care Management CM Discharge Assessment Start: 07/10/23 15:04 Freq: Status: Active Protocol: Document 07/10/23 15:04 DOMINGO (Rec: 07/10/23 15:05 [email or web address] [id number]) Discharge Planning Assessment Assigned Dining Room Supervisor JEANNINE Govea DPOA/Assigned Designee Name Morgan Scott,spouse Contact Information [phone] Advance Directives? No History Provided By Patient,Significant Other, Medical Record Prior Living Arrangements House Household Members spouse Type of transporation used prior to Relies on Others admit Independent with ADL's Yes: Mostly indp, needs assist w/higher ADLs Is patient alert and oriented? Yes Needs Assistance With Bathing,Meal Prep,Managing Medications,Home Chores / Shopping Barriers to Discharge No Comment Home w/spouse Discharge Plan Home Transportation Arrangement Spouse Referrals Initiated None needed
--- NOTE | 2023-07-10 15:40 | DIET.CONS ---
Dietary Consultation Note Admission Date: 07/09/2023 19:57 Assessment: 42F presented with nausea, lightheadedness, and elevated BG. Admitted with BG of 462mg/dl. Recent HgA1c of 8% on Metformin 2000mg and Mounjaro 2.5mg/wk. Nuvia reports she was having BG in the 200-300s prior to steroid injection. After injection BG increased to over 400mg/dl at home. States she has questions about insulin, when to take, how to take? Reports difficulty with lifestyle changes due to mobility restraints and affordability of food. States her cooks and buys groceries. He works nights, so dinner is often at 3-4p. Reports she emotional eats at night when alone. Also predicted poor sleep with sleeping on couch until 4am while is at work. She reports her is not currently supportive of DM ed due to feeling as though they cannot afford recommended foods. Today we discussed the role of the dm educator in finding ways to fit recommendations into her life, including helping find affordable food ideas with her. She agreed and would like to attend dm ed again. Previous visits with prior Dm educator in 2019. Diet recall: 10a: yogurt, granola, fruit, coffee, sf creamer 1230p: sandwich 3-4p: pork and mac n cheese or potatoes or rice or pasta or chili with salad 7p: leftovers or cookies or chips Ht: 165.1 cm Wt: 138 kg BMI: 50.6 Last BM: 07/08/23 (07/09/23 21:11) MNA: 14 Geovanni Score: 22 Diet: 07/10/23 Lunch Carbohydrate Consistent Diet Diet Modifications: Carbohydrate level: Small (2 CHO) Reflex DM orders: No Food Texture: Level 7 - Regular Liquid Consistency: Level 0 - Thin Nutrition Percent Meal Consumed 100% 07/10/23 13:06 Labs: RBC 4.10 X10^6/uL (4.0-5.2) 07/10/23 04:46 Hgb 11.8 g/dL (12.0-16.0) L 07/10/23 04:46 Hct 35.7 % (36-46) L 07/10/23 04:46 Creatinine 0.37 mg/dL (0.52-1.04) L 07/10/23 04:46 Lactate 2.5 mmol/L (0.7-2.1) H 07/09/23 19:48 Nutrition Diagnosis: Altered nutrition related labs r/t endocrine dysfunction and limited diabetes or nutrition knowledge aeb pt report and hga1c of 8% Interventions: Reviewed portion recs within foods she already eats Discussed insulin action and injection technique (provided handout for reinforcement after d/c) Reviewed Rule of 15 for lows (provided handout) Discussed option for dm ed EER: 30-45g CHO per meal Monitoring/Evaluations: Rec OP DM ed. Will message provider for a new referral. Electronically Signed by: Roma Srinivasan 07/10/23 15:40 Clinical Dietitian [address] [address]
--- NOTE | 2023-07-10 16:55 | PT.IIE ---
Current Diagnoses Type 2 diabetes mellitus with hyperglycemia (07/09/23) Surgical History (Last Reviewed 07/09/23 @ 19:33 by Bhumi Mendoza MD) H/O: hysterectomy History of carpal tunnel repair (~10/30/14) History of colonoscopy History of esophagogastroduodenoscopy (EGD) History of laminectomy History of laminectomy (~09/2016) History of lumbar spinal fusion (12/22/18) Hx of toe surgery (05/16/20) S/P epidural steroid injection (11/2013) S/P lumbar spinal fusion Status post dilation and curettage (2008) Medical History (Last Reviewed 07/09/23 @ 19:33 by Bhumi Mendoza MD) Acetaminophen overdose of undetermined intent (12/2015) Alcoholism 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 Asthma Cervical radiculopathy Cubital tunnel syndrome DM type 2 (diabetes mellitus, type 2) DVT (deep venous thrombosis) Essential hypertension Fibromyalgia (03/02/15) Gastroesophageal reflux disease without esophagitis (03/02/15) Hypoxia Intraoperative cardiac arrest during non-cardiac surgery (11/2013) 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) Morbid obesity Narcotic habituation, continuous Nocturnal hypoxemia Obstipation LYLA (obstructive sleep apnea) Ovarian cyst Plantar fasciitis Psychogenic nonepileptic seizure Pulmonary embolism RBBB (right bundle branch block) Sinus tachycardia Status post laminectomy (12/14/15) Suicide attempt Tobacco abuse Tylenol overdose Urinary retention Physical Therapy Inpatient Evaluation/Re-Eval M1 PT/OT-IP Prior Functional Status Start: 07/10/23 18:36 Freq: NEEDED Status: Active Protocol: Document 07/10/23 16:55 AB (Rec: 07/10/23 18:52 AB [id number]) Medical Review Prior Functional Status Medical History Reviewed Yes Communication able to make needs known Mobility and Gait pt stated that she was modified independent with all mobilities and ambulatio using a FWW indoors and a 4WW for outdoor mobility; pt stated that she uses an AD due to her vertigo Social History Household Members spouse Living Arrangements House Number of Floors (Floors) One Floor Number of Stairs To Enter/Railing? 2 platform steps to enter the house Home Environment Standard Height Toilet,Walk in Shower,Built-In Shower Seat Home Equipment Front Wheel Walker,Four Wheel Walker,Hand Held Shower,Grab Bars In Shower Additional Social History Comment has a L sided bed rail M2 PT-IP Current Condition Start: 07/10/23 18:36 Freq: NEEDED Status: Active Protocol: Document 07/10/23 16:55 AB (Rec: 07/10/23 18:52 AB [id number]) Physical Therapy Current Condition Current Condition Evaluation Date 07/10/23 Treatment Diagnosis tachycardia; difficulty in walking Onset Date 07/09/23 M3 PT-IP Subjective Start: 07/10/23 18:36 Freq: NEEDED Status: Active Protocol: Document 07/10/23 16:55 AB (Rec: 07/10/23 18:52 AB [id number]) Subjective Physical Therapy Visit Type Type Initial Evaluation Visit Start Time 16:55 Visit Stop Time 17:40 Number of SOAP SLABBER Visits 0 Physical Therapy Visit Comments Patient Comments agreeable to do PT Therapy Pain Assessment Pain When Pain Assessed At Rest Pain Present Pain Present Pain Reported Location Generalized Intensity 4 Scale Used Numeric (0 - 10) Pain Management Techniques Modification of Treatment,Re- positioning,Timing of Activity with Medications M4 PT-IP Mobility and Gait Start: 07/10/23 18:36 Freq: NEEDED Status: Active Protocol: Document 07/10/23 16:55 AB (Rec: 07/10/23 18:52 AB [id number]) PT-Bed Mobility Assessment Supine to Sit Supine to Sit Standby Assistance Sit to Supine Sit to Supine Standby Assistance PT-Transfer Assessment Sit to and From Stand Sit to and from Stand Standby Assistance,1 Person Assistance,Use of Upper Extremities Equipment Transfer Assistive Device Gait Belt,Front Wheeled Walker ,4 Wheeled Walker Orthotic/Prosthetic Devices or Brace: No Transfers Transfer Destination Bed,Chair Transfer Technique ambulated Transfer Ability Level of Assist Standby Assistance,Use of Upper Extremities Comments Mobility Comments pt sitting on the chair and agreed to do PT. obtained PLOF and home set up. pt stated that she started using a walker due to her vertigo and prefers to use an AD rather than not use any for safety. pt stated that she has ankle problems and was wearing LE braces before. also stated that she is due to a cervical fusion. MMT conducted and pt has a weaker LLE. (+) SOB but O2 sat at 94% MO: resting 113-114 pt completed sit to stand SBA and ambulated to EOB using fWW SBA. completed bed mobility SBA. pt ambulated back to the chair using 4WW SBA. pt stated that she does not walk much at home. educated pt on safety and importance of mobility and pt understood. pt agreed to do stairs. ambulated towards platform step using 4WW and completed up/down platform step using 4WW cGA for safety. pt repeated x 2 sets. pt ambulated back to her chair using 4WW SBA. positioned pt on the chair. call light and table placed within reach. MO increases to ~ 133 bpm with mobility. pt refused to do ambulation without AD with PT. informed pt that no further PT intervention needed and pt agreed. informed nurse regarding pt's mobility and d/c PT and for nursing staff to mobilize and ambulate pt as needed. Gait Assessment Gait Gait Assistance Required: Standby Assistance Distance (Feet) 30 Able to Maintain Weight Bearing Status Yes During Gait Assistive Devices Assistive Device Gait Belt,Front Wheeled Walker ,4 Wheeled Walker Orthotic/Prosthetic Devices or Brace: No Gait Deviations General Gait Pattern Ataxic,Decreased Stride Length ,Decreased Feet Clearance Factors Limiting Gait Function Factors Limiting Gait Function Decreased Activity Tolerance, Decreased Strength,Limited Range of Motion,Pain,Poor Balance Stair Climbing Assessment Evaluation Level of Assist On Stairs Standby Assistance,Contact Guard Assistance Devices Stair Climbing Assistive Devices Four Wheel Walker Technique/Endurance Stair Climbing Direction Ascend and Descend Stair Climbing Technique Step to Step Number of Steps Climbed 1 Query Text: Stair Climbing Set # Repetitions (reps) 2 PT-Balance Assessment Sitting Balance and Reactions Static Sitting Balance Ability Normal Dynamic Sitting Balance Ability Good Standing Balance and Reactions Static Standing Balance Ability Fair Dynamic Standing Balance Ability Fair Device Used FWW M5 PT-IP Objective Assessments Start: 07/10/23 18:36 Freq: NEEDED Status: Active Protocol: Document 07/10/23 16:55 AB (Rec: 07/10/23 18:52 AB [id number]) Orientation Orientation/Cognition Level of Alertness Alert Orientation Name,Place,Situation Language Function Ability No Deficits Noted Safety Awareness Understands Safety Issues Memory Description No Deficits Noted Gross Range of Motion Lower Extremity ROM Assessment Within Functional Limits Strength Lower Extremity Strength Assessment Left Impaired Hip 3-/5 Knee 3+/5 Muscle Tone Muscle Tone WNL Yes M6 PT-IP Treatment Start: 07/10/23 18:36 Freq: NEEDED Status: Active Protocol: Document 07/10/23 16:55 AB (Rec: 07/10/23 18:52 AB [id number]) Physical Therapy Treatment Education Education Provided Safety M7 PT-IP Assessment and Plan Start: 07/10/23 18:36 Freq: NEEDED Status: Active Protocol: Document 07/10/23 16:55 AB (Rec: 07/10/23 18:52 AB [id number]) PT Summary Assessment and Plan Potential Rehabilitation Potential Fair Status of Condition at Evaluation Stable Summary Impairments Pain,ROM,Strength,Balance, Coordination,Sensation,Bed Mobility,Transfers,Gait, Activity Tolerance Assessment Summary pt is a 42 y/o F who presented to the ED due to concerns of high blood sugar. pt admitted for tachycardia. pt requiring SBA with all mobilities using a FWW/4WW. pt to continue use of AD for safety considering pt's decrease activity tolerance, LLE weakness, cervical and ankle problems contributing to current medical issues. pt is at PLOF and no further PT intervention is needed at this time. pt to ambulate and mobilize with nursing staff as much as possible. Goals Other Goals complete up/down 2 platform steps SBA Frequency of Treatment Frequency Of Treatment Discharge Treatment Plan Physical Therapy Treatment Plan Gait Training Precautions Other Precautions MO Recommendations To Nursing Amount of Assist Needed Standby Assistance Discharge Recommendations PT Discharge Recommendations Home with Assistance,Home Health,Outpatient PT Transportation Needs at Discharge Private Vehicle
--- NOTE | 2023-07-10 18:28 | PC.NURSE ---
pt was started on Lantus and insulin drip was turned off before lunch; pt was started on sliding scale and a carb consistent diet; she was seen by PT and has been up in the chair with SBA and FWW; she has chronic neck pain and was medicated with flexeril and tylenol with good effect; the extension educator came and spoke in depth w/ pt
[2023-07-10] MEDS: ARIPiprazole 10 MG TABLET 30 MG PO (21:12)
[2023-07-10] MEDS: TERAZOSIN 1 MG CAPSULE 2 MG PO (21:14)
[2023-07-10] MEDS: DOXEPIN 100 MG 200 EACH PO (21:14)
[2023-07-11] VITALS (14 sets, daily range): BP systolic 119–142; BP diastolic 75–92; PULSE 105–115; RESP 13–24; TEMP 36.6–37.6; O2SAT 92–96
[2023-07-11] MEDS: OXYCODONE IR 5 MG TABLET PO ×2 (04:16→09:08)
[2023-07-11] MEDS: ACETAMINOPHEN 325 MG TABLET 650 MG PO (04:21)
[2023-07-11 05:02] LABS: Add Manual Diff / Slide Review NO; Basophils Absolute Auto 0 /uL (0-100); Basophils Percent Auto 0.4 % (0-2); Eosinophils Absolute Auto 0 /uL (0-450); Eosinophils Percent Auto 0.3 % (2-4); Hematocrit 35.1 % (36-46); Hemoglobin 11.6 g/dL (12.0-16.0); Lymphocytes Absolute Auto 1300 /uL (1100-4500); Lymphocytes Percent Auto 20.9 % (25-40); Mean Corpuscular HGB Conc 32.9 % (30-36); Mean Corpuscular Hemoglobin 28.5 PG (26-34); Mean Corpuscular Volume 86.7 fL (80-100); Monocytes Absolute Auto 500 /uL (0-900); Monocytes Percent Auto 8.8 % (3-14); Neutrophils Absolute Auto 4200 /uL (1500-7000); Neutrophils Percent Auto 69.6 % (50-75); Platelet Count 169 X10^3/uL (150-400); Red Blood Cell Count 4.05 X10^6/uL (4.0-5.2); Red Cell Distribution Width 13.3 % (11.6-14.8)
[2023-07-11 05:10] LABS: BUN Creatinine Ratio 15.6 (6-22); Blood Urea Nitrogen 7 mg/dL (7-17); Calcium 8.7 mg/dL (8.4-10.2); Carbon Dioxide 27 mmol/L (22-32); Chloride 104 mmol/L (98-107); Estimated Glomerular Filt Rate > 60 mL/min (>60); Glucose 213 mg/dL (70-100); HEMOLYSIS < 15 (0-50); Potassium 3.6 mmol/L (3.4-5.1); Sodium 138 mmol/L (137-145)
[2023-07-11] MEDS: LEVOTHYROXINE 25 MCG TABLET PO (06:16)
[2023-07-11] MEDS: INSULIN LISPRO 100 UNIT/ML 3ML VIAL SUBCUT (08:53)
[2023-07-11] MEDS: INSULIN GLARGINE 100 UNIT/ML 3ML PEN 20 UNIT SUBCUT (08:54)
[2023-07-11] MEDS: PANTOPRAZOLE DR 20 MG TABLET PO (08:59)
[2023-07-11] MEDS: FUROSEMIDE 40 MG TABLET PO (08:59)
[2023-07-11] MEDS: RIVAROXABAN 10 MG TABLET 20 MG PO (08:59)
[2023-07-11] MEDS: DOCUSATE 100 MG CAPSULE 200 MG PO (08:59)
[2023-07-11] MEDS: PREGABALIN 75 MG CAPSULE 300 MG PO (08:59)
[2023-07-11] MEDS: MAGNESIUM OXIDE 400 MG TABLET PO (09:00)
[2023-07-11] MEDS: METOPROLOL ER 25 MG TABLET 50 MG PO (09:00)
[2023-07-11] MEDS: FERROUS SULFATE 325 MG TABLET PO (09:00)
[2023-07-11] MEDS: ALBUTEROL 2.5 MG/3 ML NEB (ADULT) INH (09:21)
[2023-07-11] MEDS: BUDESONIDE 0.5 MG/2 ML NEB INH (09:22)
[2023-07-11] MEDS: SPIRONOLACTONE 25 MG TABLET 12.5 MG PO (10:12)
--- NOTE | 2023-07-11 12:17 | PM.DS.1 ---
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 The pt reports that she receive a cervical steroid injection 07/09/23 to help with her chronic pain. Her blood sugar prior to injection was in the 200s. When she got home, she began feeling nauseous and lightheaded. She took her blood sugar and it was > 400. She contacted her physician's office and was instructed to go to the ED for additional evaluation. She did not have any associated chest pain. She has been feeling mildly more SOB than usual for the past few days. She has been more swollen for the last couple weeks. She had mild associated epigastric abdominal pain. In the ED, the pts blood sugar was found to be elevated to 462. Her lactate was 4.4. Ketones were elevated. Anion gap was minimally elevated. No cognitive changes. She was initiated on IVF, insulin drip. Her BP initially was elevated to severe range, and the pt was given IV Labetalol with good response. She was admitted to the ICU on insulin drip. Discharge Providers Provider Date of admission: 07/09/23 19:57 Discharge Date: 07/11/23 Primary care physician: Alejandra Lynch MD Consults: 07/10/23 08:33 Consult to Physical Therapy Evaluate & Treat Comment: Physician Instructions: Evaluate and Treat 07/10/23 08:35 Consult to Dietitian, Adult Routine Comment: Reason For Exam: uncontrolled diabetes Discharge provider: Reg Draper MD Summary Hospital Course Discharge Diagnosis: #Hyperglycemia #Hypertension #LE edema #H/o recurrent DVT #Depression/Anxiety #Asthma #Fibromyalgia #Morbid obesity #LYLA Hospital Course: Did not meet criteria for DKA/HHS. Blood sugar improved overnight to 190s, insulin drip was discontinued and transitioned to insulin Lantus 20 units daily with sliding scale. Glucose remained relatively controlled in high 190s low 200s on insulin while requiring a total of 9 additional units correctional insulin over a 24 hour period. At time of discharge patient reported feeling at baseline aside from being slightly winded and general aches/pains. Blood cultures with no growth after 24 hours and patient without other lab or exam findings that would indicate systemic infection. Urine culture growing yeast with identification pending, patient does endorse some recent dysuria. Discharged home on long-acting insulin 25 units daily and fluconazole 200 mg p.o. daily to cover for presumptive yeast cystitis. Patient instructed to call primary physician office and schedule follow-up within 5 days of discharge. Status at Discharge Cognitive/behavioral status at discharge: at baseline, oriented Functional status at discharge: independent ambulation Overall status at discharge: patient is back to baseline Time Spent with Patient Time spent: Less than 30 minutes Exam Vital Signs (past 8 hours): - 07/11/23 04:21 07/11/23 05:55 07/11/23 07:00 Temperature 99.7 F H 97.8 F Pulse Rate Respiratory Rate Blood Pressure Pulse Oximetry Oxygen Delivery Method Room Air Oxygen Flow Rate 07/11/23 08:00 07/11/23 09:00 07/11/23 09:08 Temperature 97.8 F 98.2 F Pulse Rate 105 H 113 H Respiratory Rate 16 Blood Pressure 133/82 119/75 Pulse Oximetry 94 Oxygen Delivery Method Oxygen Flow Rate 0 07/11/23 09:26 07/11/23 09:30 Temperature Pulse Rate 114 H 115 H Respiratory Rate 18 Blood Pressure 119/78 Pulse Oximetry 96 Oxygen Delivery Method Room Air Oxygen Flow Rate Fraction of Inspired Oxygen 21 SaO2/FiO2 Ratio 438 Oxygen Delivery Method Room Air Oxygen Flow Rate 0 Narrative Exam Narrative: General: Sitting comfortably in in chair, NAD HEENT: Normocephalic, atraumatic, EOMI, moist mucous membranes CV: Tachycardic, regular rhythm, normal S1-S2, no murmur auscultated Resp: Clear to auscultation bilaterally, comfortable work of breathing Abdomen: Soft, nontender, nondistended, bowel sounds present, no guarding or rebound tenderness Extremities: 1+ pitting edema bilateral lower extremities Objective Labs 07/11/23 04:05 07/11/23 04:05 Labs: Laboratory Results - last 24 hr 07/11/23 04:05 WBC 6.0 RBC 4.05 Hgb 11.6 L Hct 35.1 L MCV 86.7 MCH 28.5 MCHC 32.9 RDW 13.3 Plt Count 169 Neut % (Auto) 69.6 Lymph % (Auto) 20.9 L Loup % (Auto) 8.8 Eos % (Auto) 0.3 L Baso % (Auto) 0.4 Neut # (Auto) 4200 Lymph # (Auto) 1300 [place]oup # (Auto) 500 Eos # (Auto) 0 Baso # (Auto) 0 Sodium 138 Potassium 3.6 Chloride 104 Carbon Dioxide 27 BUN 7 Creatinine 0.45 L Estimated GFR > 60 BUN/Creatinine Ratio 15.6 Glucose 213 H Calcium 8.7 PFSH Medical History Cervical radiculopathy 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 hypoxemia 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) 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 Hypoxia Sinus tachycardia RBBB (right bundle branch block) Tobacco abuse Psychogenic nonepileptic seizure DM type 2 (diabetes mellitus, type 2) Alcoholism DVT (deep venous thrombosis) Narcotic habituation, continuous Pulmonary embolism Morbid obesity Asthma Essential hypertension LYLA (obstructive sleep apnea) Acetaminophen overdose of undetermined intent (12/2015) Suicide attempt Intraoperative cardiac arrest during non-cardiac surgery (11/2013) Ovarian cyst Plantar fasciitis 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 Cubital tunnel syndrome Status post laminectomy (12/14/15) Gastroesophageal reflux disease without esophagitis (03/02/15) Fibromyalgia (03/02/15) Tylenol overdose Obstipation Urinary retention Surgical History S/P lumbar spinal fusion H/O: hysterectomy Hx of toe surgery (05/16/20) History of carpal tunnel repair (~10/30/14) History of laminectomy (~09/2016) History of laminectomy History of colonoscopy History of esophagogastroduodenoscopy (EGD) History of lumbar spinal fusion (12/22/18) S/P epidural steroid injection (11/2013) Status post dilation and curettage (2008) Family History Grandfather Diabetes mellitus Family/Other Pancreatic cancer Social History household members: spouse Smoking Status: Former smoker alcohol intake: former eating out: 1-3 times/week Type(s) of exercise: normal ROM and activity and sedentary lifestyle Discharge Assessment & Plan Assessment and Plan Assessment: 42-year-old female with uncontrolled type 2 diabetes, hypertension, chronic lower extremity edema, anxiety/depression, LYLA, recurrent DVT on chronic anticoagulation admitted for symptomatic hyperglycemia. Plan of Treatment: 1) Hyperglycemia: Did not meet criteria for DKA/HHS. Improved on insulin drip and transitioned to insulin. -Continue Levemir 25 units daily -Restart home metformin and Mounjaro -Continue fasting and a.c. glucose checks -Follow-up with diabetes nutrition education outpatient 2) Hypertension -Continue home Diltiazem, Metoprolol, Spirinolactone 3) LE edema: Chronic, did endorse increased SOB on admission. CXR demonstrating likely atelectasis or scarring, pneumonia not excluded but patient without symptoms of systemic infection. O2 sat 96% at discharge. -Continue home Lasix 4) H/o recurrent DVT -Continue home Xarelto 5) Depression/Anxiety: Patient with increased stress recently due to her mother being on hospice. Followed by Psychiatry as an outpatient. -Continue home Abilify 6) Asthma: Overall stable. No wheezing. -Continue home Pulmicort 7) Fibromyalgia: Stable -Continue home cyclobenzaprine 8) Morbid obesity: Complicating diabetic control 9) LYLA: Stable, chronically on oxygen with CPAP at home. -Continue O2 supplementation as needed Discharge Plan Discharge Plan Patient Disposition: Home Provider Discharge Comment: Follow-up with primary physician within 5 days of discharge. Discharge orders & Medications Prescriptions: New Levemir FlexPen 100 unit/mL (3 mL) insulin pen 25 unit SUBCUT BEDTIME Qty: 15 1RF fluconazole 200 mg tablet 200 mg PO DAILY Qty: 14 0RF Continued metoprolol succinate 25 mg tablet extended release 24 hr 50 mg PO BID ferrous sulfate 325 mg (65 mg iron) tablet 325 mg PO DAILY docusate sodium [Col-Rite] 250 mg capsule 250 mg PO BID vitamin B complex Tablet 1 tab PO DAILY furosemide 40 mg tablet 40 mg PO BID Qty: 180 3RF Patient Comments: 60mg BID metformin 500 mg tablet 1,000 mg PO BID Qty: 360 3RF levothyroxine 25 mcg tablet 25 mcg PO DAILY Qty: 90 3RF doxepin 100 mg capsule 200 mg PO BEDTIME Qty: 60 5RF aripiprazole 30 mg tablet 30 mg PO BEDTIME Qty: 30 5RF Rx Instructions: Take one 30mg tablet by mouth daily levalbuterol tartrate 45 mcg/actuation HFA aerosol inhaler 1 puff inhalation Q4-6H PRN (Reason: shortness of breath or wheezing) Qty: 15 2RF magnesium oxide 400 mg (241.3 mg magnesium) tablet 400 mg PO DAILY Qty: 30 0RF (DME) glucose monitor See Rx Instructions .Route .MEDSUPPLY Qty: 1 0RF Rx Instructions: To test blood glucose daily (DME) glucose test strips See Rx Instructions .Route .MEDSUPPLY Qty: 100 3RF Rx Instructions: To test blood glucose daily (DME) lancets See Rx Instructions .Route .MEDSUPPLY Qty: 100 3RF Rx Instructions: to test blood glucose daily terazosin 2 mg capsule 2 mg PO ONCE PM Qty: 30 5RF omeprazole 20 mg capsule,delayed release(DR/EC) 20 mg PO BID Qty: 180 0RF pregabalin 300 mg capsule 300 mg PO BID Qty: 180 3RF Rx Instructions: take 1 capsule by mouth twice a day meclizine 25 mg tablet See Rx Instructions .ROUTE .COMPLEX Qty: 90 5RF Dose Instruction: TAKE 2 TABLETS BY MOUTH DAILY NEEDED FOR DIZZINESS OR VERTIGO Rx Instructions: TAKE up to 3 TABLETS BY MOUTH DAILY FOR DIZZINESS OR VERTIGO Xarelto 20 mg tablet 20 mg PO DAILY Qty: 90 1RF cyclobenzaprine 10 mg tablet 10 mg PO 3XD PRN (Reason: for muscle spasm) Qty: 90 0RF budesonide-formoterol [Symbicort] 160-4.5 mcg/actuation HFA aerosol inhaler 2 puff inhalation BID Qty: 10.2 3RF diazepam [Valium] 10 mg tablet 10 mg PO .COMPLEX MDD 3 tabs PRN (Reason: 1-2 prior to MRI and for possible steroid flare) Qty: 10 0RF Rx Instructions: 10 mg PO PRN; spironolactone 25 mg tablet 12.5 mg PO DAILY Qty: 45 3RF Mounjaro 2.5 mg/0.5 mL pen injector 2.5 mg SUBCUT QWEEK 28 Days Qty: 2 0RF Atrovent HFA 17 mcg/actuation HFA aerosol inhaler 1 puff PO Q8H Qty: 12.9 0RF ascorbic acid (vitamin C) 500 mg tablet 500 mg PO DAILY potassium gluconate 595 mg (99 mg) tablet 595 mg PO DAILY Follow up/Referrals: Alejandra Lynch MD [Primary Care Provider] - Diet/Activity/Treatments Diet: Carb-consistent/Diabetic Skin/Wound/Dressing Care Report to your healthcare provider any signs of infection, such as:: chills, fever and night sweats Visit Report/Discharge Packet Stand Alone Forms: Patient Portal/API, Stroke Signs & Symptoms Discharge Data Primary Care Provider: Alejandra Lynch Discharges patient from system. Discharge Date/Time: 07/11/23 12:43 Quality VTE Deep Vein Thrombosis/Pulmonary Embolism Present on Admission: No MIPS - Meds 'Current medications' to include all prescriptions, mytp-dve-smlzlot products, herbals, cannabis/cannabidiol products, and vitamin/mineral/dietary (nutritional) supplements. I have utilized all available resources to obtain, update, or review the patient?s current medications. [If Yes, STOP here]: Yes MIPS - DC The patient has a history of heart transplant or Left Ventricular Assist Device (LVAD). If yes, STOP here.: No The patient has current or prior documentation of left ventricular ejection fraction (LVEF) less than or equal to 40%, or moderate or severely depressed left ventricular systolic function.: No A. The patient was prescribed or already taking an Angiotensin-Converting Enzyme (CIARAN) Inhibitor, or Angiotensin Receptor J Carlos (ARB).: No B. The patient was prescribed or already taking a beta-j carlos. [If Yes to Both A & B, STOP here]: Yes Patient not prescribed/taking CIARAN or ARB, no reason given.: Yes
== END 2023-07-11 12:43 | disposition home or self-care (01) | DRG 638 ==
LOC: ED 19:54 → AC 19:58 → ICU 20:03
PROVIDERS: Emergency Medicine; Admitting Provider Internal Medicine; Emergency Provider Emergency Medicine; Family Provider Family Medicine; PCP Family Medicine; Referring Provider Emergency Medicine; Visit Provider Family Medicine
DX: E11.65 Type 2 diabetes mellitus with hyperglycemia (principal); Z68.43 Body mass index [BMI] 50.0-59.9, adult; E66.01 Morbid (severe) obesity due to excess calories; R60.0 Localized edema; F32.A Depression, unspecified; I10 Essential (primary) hypertension; F41.9 Anxiety disorder, unspecified; J45.909 Unspecified asthma, uncomplicated; M79.7 Fibromyalgia; N30.90 Cystitis, unspecified without hematuria; Z79.84 Long term (current) use of oral hypoglycemic drugs; Z79.85 Long-term (current) use of injectable non-insulin antidiabetic drugs; Z79.01 Long term (current) use of anticoagulants; Z86.718 Personal history of other venous thrombosis and embolism; Z87.891 Personal history of nicotine dependence; M48.02 Spinal stenosis, cervical region; M50.123 Cervical disc disorder at C6-C7 level with radiculopathy
CPT/HCPCS: 36415; 62321; 71045; 80048; 80053; 81003; 81015; 81025; 82009; 82550; 82962; 83605; 83690; 83735; 83986; 84145; 84484; 85025; 85610; 85730; 87040; 87077; 87086; 87797; 93005; 93010; 94640; 96365; 96372; 96375; 97161; 97530; 99152; 99222; 99238; 99284; 99291; J1100; J1815; J2250; J3490; J7613

== ENCOUNTER 2023-07-12 18:19 | Emergency (ER) | payer OTHER, MEDICARE, SELFPAY ==
[2023-07-09 21:11] VITALS: BMI 50.6
[2023-07-12] VITALS (19 sets, daily range): BP systolic 123–162; BP diastolic 67–95; PULSE 107–124; RESP 16–28; TEMP 36.7; O2SAT 92–97; BMI 49.9
--- NOTE | 2023-07-12 18:43 | DI.RAD.S_ITS ---
PROCEDURE: XR CHEST 1V INDICATIONS: chest pain TECHNIQUE: One view of the chest was acquired. COMPARISON: [facility], CR, XR CHEST 1V, 07/10/2023, 8:41. FINDINGS: Surgical changes and devices: None. Lungs and pleura: Lungs are clear. No pleural effusions or pneumothorax. Mediastinum: Mediastinal contours appear normal. Heart size is normal. Bones and chest wall: No suspicious bony lesions. Overlying soft tissues appear unremarkable. IMPRESSION: Given technique, normal chest. Dictated by: Safia Marrufo M.D. on 07/12/2023 at 20:11 Approved by: Safia Marrufo M.D. on 07/12/2023 at 20:12
--- NOTE | 2023-07-12 19:05 | ED.CHESTPAIN ---
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 Patient recently discharged from the hospital yesterday for uncontrolled blood glucoses. Also reports shortness of breath and body aches. Related Data Home Medications Medication Instructions Recorded Confirmed ascorbic acid (vitamin C) 500 mg 500 mg PO DAILY 07/28/22 07/09/23 tablet potassium gluconate 595 mg (99 mg) 595 mg PO DAILY 07/28/22 07/09/23 tablet metoprolol succinate 25 mg 50 mg PO BID 10/10/22 07/09/23 tablet,extended release 24 hr docusate sodium 250 mg capsule 250 mg PO BID 12/03/22 07/09/23 (Col-Rite) ferrous sulfate 325 mg (65 mg 325 mg PO DAILY 12/03/22 07/09/23 iron) tablet vitamin B complex 1 tab PO DAILY 12/03/22 07/09/23 Previous Rx's Medication Instructions Recorded levalbuterol tartrate 45 1 puff inhalation Q4-6H PRN 01/22/22 mcg/actuation aerosol inhaler shortness of breath or wheezing #15 grams magnesium oxide 400 mg (241.3 mg 400 mg PO DAILY #30 tabs 07/18/22 magnesium) tablet glucose monitor #1 ea 12/01/22 glucose test strips #100 ea 12/01/22 lancets #100 ea 12/01/22 furosemide 40 mg tablet 40 mg PO BID #180 tabs 12/03/22 levothyroxine 25 mcg tablet 25 mcg PO DAILY #90 tabs 12/03/22 metformin 500 mg tablet 1,000 mg (2 x 500 mg) PO BID #360 12/03/22 tabs terazosin 2 mg capsule 2 mg PO ONCE PM #30 caps 12/22/22 omeprazole 20 mg capsule,delayed 20 mg PO BID #180 caps 12/30/22 release pregabalin 300 mg capsule 300 mg PO BID #180 caps 02/12/23 doxepin 100 mg capsule 200 mg (2 x 100 mg) PO BEDTIME #60 03/25/23 caps meclizine 25 mg tablet See Rx Instructions .Route 04/24/23 .COMPLEX #90 tabs rivaroxaban 20 mg tablet (Xarelto) 20 mg PO DAILY #90 tabs 04/27/23 cyclobenzaprine 10 mg tablet 10 mg PO 3XD PRN for muscle spasm 05/26/23 #90 tabs aripiprazole 30 mg tablet 30 mg PO BEDTIME #30 tabs 06/15/23 budesonide-formoterol HFA 160 2 puff inhalation BID #10.2 grams 06/22/23 mcg-4.5 mcg/actuation aerosol inhaler (Symbicort) diazepam 10 mg tablet (Valium) 10 mg PO .COMPLEX PRN 1-2 prior to 06/22/23 MRI and for possible steroid flare #10 tabs spironolactone 25 mg tablet 12.5 mg (1/2 x 25 mg) PO DAILY #45 06/22/23 tabs tirzepatide 2.5 mg/0.5 mL 2.5 mg (0.5 mL) SUBCUT QWEEK 4 06/25/23 subcutaneous pen injector weeks #2 mL (Mounjaro) ipratropium bromide 17 1 puff PO Q8H #12.9 grams 07/06/23 mcg/actuation HFA aerosol inhaler (Atrovent HFA) fluconazole 200 mg tablet 200 mg PO DAILY #14 tabs 07/11/23 insulin detemir U-100 100 unit/mL 25 unit (0.25 mL) SUBCUT BEDTIME 07/11/23 (3 mL) subcutaneous pen (Levemir #15 mL FlexPen) Allergies Allergy/AdvReac Type Severity Reaction Status Date / Time risperidone [From Risperdal] Allergy Verified 07/12/23 18:43 carisoprodol [CARISOPRODOL] AdvReac Severe urinary Verified 07/12/23 18:43 retention fosphenytoin AdvReac Severe Seizures Verified 07/12/23 18:43 Latex, Natural Rubber AdvReac Mild Rash Verified 07/12/23 18:43 Review of Systems Review of Systems Narrative: Negative except as noted above Patient History Medical History Cervical radiculopathy Nocturnal hypoxemia clay hoister associated with adverse incidents (~2011) 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 Hypoxia Sinus tachycardia RBBB (right bundle branch block) Tobacco abuse Psychogenic nonepileptic seizure DM type 2 (diabetes mellitus, type 2) Alcoholism DVT (deep venous thrombosis) Narcotic habituation, continuous Pulmonary embolism Morbid obesity Asthma Essential hypertension LYLA (obstructive sleep apnea) Acetaminophen overdose of undetermined intent (12/2015) Suicide attempt Intraoperative cardiac arrest during non-cardiac surgery (11/2013) Ovarian cyst Plantar fasciitis 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 Cubital tunnel syndrome Status post laminectomy (12/14/15) Gastroesophageal reflux disease without esophagitis (03/02/15) Fibromyalgia (03/02/15) Tylenol overdose Obstipation Urinary retention Surgical History S/P lumbar spinal fusion H/O: hysterectomy Hx of toe surgery (05/16/20) History of carpal tunnel repair (~10/30/14) History of laminectomy (~09/2016) History of laminectomy History of colonoscopy History of esophagogastroduodenoscopy (EGD) History of lumbar spinal fusion (12/22/18) S/P epidural steroid injection (11/2013) Status post dilation and curettage (2008) Family History Grandfather Diabetes mellitus Family/Other Pancreatic cancer Social History household members: spouse Smoking Status: Former smoker alcohol intake: former eating out: 1-3 times/week Type(s) of exercise: normal ROM and activity and sedentary lifestyle Smoking Status: Former smoker tobacco type: cigarettes alcohol intake frequency: other Substance Use Type: does not use Exam Initial Vital Signs Initial Vital Signs: Vital Signs Temperature 98.0 F 07/12/23 18:36 Pulse Rate 124 H 07/12/23 18:36 Respiratory Rate 20 07/12/23 18:36 Blood Pressure 141/91 H 07/12/23 18:36 Pulse Oximetry 97 07/12/23 18:36 Oxygen Delivery Method Room Air 07/12/23 18:36 Const: Awake, alert, no acute distress Cardiac: Tachycardia, regular rhythm RESP: unlabored, clear bilaterally, no wheezing GI: Atraumatic, soft, nontender, nondistended, no rebound, no guarding MSK: Atraumatic, full range of motion, pulses equal Skin: Warm, Dry, intact, no rashes Neuro: AO x3, CN II-XII grossly intact, moves all extremities Psych: Flat affect, mood normal, not suicidal, not homicidal Course Orders Ordered: ED Orders 07/12/23 18:43 XR chest 1V Stat EKG-12 Lead Stat 07/12/23 18:57 Complete Blood Count AUTO DIFF Stat Comprehensive Metabolic Panel Stat Lipase Stat Magnesium Stat PTT Partial Thromboplastin Aldo Stat Prothrombin Time INR Stat Troponin & CK Cardiac Panel Stat 07/12/23 19:06 CT angio chest PE protocol Stat 07/12/23 20:43 Trop I [Troponin I] Stat 07/12/23 21:04 Covid-19 + FLU A/B + RSV - PCR Stat Discontinued Medications Aspirin (Aspirin 81 Mg Chew Tab) 324 mg PO NOW ONE Stop: 07/12/23 18:44 Last Admin: 07/12/23 19:02 Dose: Not Given Documented By: KRISTI Ketorolac Tromethamine (Ketorolac 30 Mg/Ml Vial) 15 mg IV NOW ONE Stop: 07/12/23 21:21 Last Admin: 07/12/23 21:23 Dose: 15 mg Documented By: KRISTI Vital Signs Vital signs: Vital Signs - 8 hr 07/12/23 18:36 07/12/23 19:04 07/12/23 19:07 Temperature 98.0 F Pulse Rate 124 H 124 H 124 H Respiratory Rate 20 24 Blood Pressure 141/91 H Pulse Oximetry 97 96 95 Oxygen Delivery Method Room Air 07/12/23 19:07 07/12/23 19:12 07/12/23 19:12 Temperature Pulse Rate 121 H Respiratory Rate 20 Blood Pressure 162/95 H 146/93 H Pulse Oximetry 95 Oxygen Delivery Method 07/12/23 19:15 07/12/23 19:15 07/12/23 19:32 Temperature Pulse Rate 120 H 117 H Respiratory Rate 22 28 H Blood Pressure 149/86 H Pulse Oximetry 94 95 Oxygen Delivery Method 07/12/23 19:33 07/12/23 19:33 07/12/23 19:45 Temperature Pulse Rate 116 H Respiratory Rate 24 Blood Pressure 162/90 H 162/86 H Pulse Oximetry 95 Oxygen Delivery Method 07/12/23 19:45 07/12/23 20:00 07/12/23 20:00 Temperature Pulse Rate 114 H 115 H Respiratory Rate 20 21 Blood Pressure 142/78 H Pulse Oximetry 95 94 Oxygen Delivery Method 07/12/23 20:15 07/12/23 20:15 07/12/23 20:30 Temperature Pulse Rate 119 H Respiratory Rate 17 Blood Pressure 128/70 140/69 Pulse Oximetry 95 Oxygen Delivery Method 07/12/23 20:30 07/12/23 20:45 07/12/23 20:45 Temperature Pulse Rate 116 H 113 H Respiratory Rate 16 20 Blood Pressure 123/67 Pulse Oximetry 93 92 Oxygen Delivery Method Room Air 07/12/23 21:00 07/12/23 21:00 07/12/23 21:15 Temperature Pulse Rate 114 H Respiratory Rate 19 Blood Pressure 123/76 139/84 Pulse Oximetry 94 Oxygen Delivery Method Room Air 07/12/23 21:15 07/12/23 21:30 07/12/23 21:31 Temperature Pulse Rate 112 H 111 H 111 H Respiratory Rate 19 19 19 Blood Pressure Pulse Oximetry 94 95 93 Oxygen Delivery Method Room Air 07/12/23 21:31 07/12/23 21:46 07/12/23 21:46 Temperature Pulse Rate 110 H Respiratory Rate 16 Blood Pressure 130/68 144/77 H Pulse Oximetry 93 Oxygen Delivery Method 07/12/23 22:00 07/12/23 22:00 07/12/23 22:15 Temperature Pulse Rate 107 H Respiratory Rate 19 Blood Pressure 143/85 H 141/83 H Pulse Oximetry 92 Oxygen Delivery Method 07/12/23 22:15 Temperature Pulse Rate 108 H Respiratory Rate 18 Blood Pressure Pulse Oximetry 93 Oxygen Delivery Method Room Air MDM - Chest Pain Differential Diagnosis Differential diagnosis: Likely fracture of rib, pneumothorax and stable angina Lab Data 07/12/23 18:57 07/12/23 18:57 Labs: Lab Results 07/12/23 07/12/23 07/12/23 Range/Units 18:57 20:43 21:04 WBC 6.2 (4.5-11.0) X10^3/uL RBC 4.66 (4.0-5.2) X10^6/uL Hgb 13.4 (12.0-16.0) g/dL Hct 40.2 (36-46) % MCV 86.1 (80-100) fL MCH 28.8 (26-34) PG MCHC 33.4 (30-36) % RDW 13.4 (11.6-14.8) % Plt Count 202 (150-400) X10^3/uL Neut % (Auto) 60.6 (50-75) % Lymph % (Auto) 26.7 (25-40) % [place] % (Auto) 9.8 (3-14) % Eos % (Auto) 2.3 (2-4) % Baso % (Auto) 0.6 (0-2) % Neut # (Auto) 3700 (5414-8201) /uL Lymph # (Auto) 1600 (4746-7248) /uL [place] # (Auto) 600 (0-900) /uL Eos # (Auto) 100 (0-450) /uL Baso # (Auto) 0 (0-100) /uL PT 10.8 (9.4-12.5) SECONDS INR 0.9 (0.9-1.3) APTT 33 (25.1-36.5) SECONDS Sodium 139 (137-145) mmol/L Potassium 3.8 (3.4-5.1) mmol/L Chloride 99 (98-107) mmol/L Carbon Dioxide 30 (22-32) mmol/L BUN 9 (7-17) mg/dL Creatinine 0.53 (0.52-1.04) mg/dL Estimated GFR > 60 (>60) mL/min BUN/Creatinine Ratio 17.0 (6-22) Glucose 273 H (70-100) mg/dL Calcium 10.1 (8.4-10.2) mg/dL Magnesium 2.0 (1.6-2.3) mg/dL Total Bilirubin 0.4 (0.2-1.3) mg/dL AST 31 (14-36) IU/L ALT 36 H (<35) IU/L Alkaline Phosphatase 66 (38-126) U/L Total Creatine Kinase 99 (30-135) U/L Troponin I < 0.012 < 0.012 (0.01-0.034) ng/mL Total Protein 8.3 H (6.3-8.2) g/dL Albumin 4.3 (3.5-5.0) g/dL Globulin 4.0 (1.7-4.1) g/dL Albumin/Globulin Ratio 1.1 (1.0-2.8) Lipase 87 (23-300) U/L SARS-CoV-2 (PCR) Positive H (Negative) Influenza A (RT-PCR) Flu a negative (NEGATIVE) Influenza B (RT-PCR) Flu b negative (NEGATIVE) RSV (PCR) Negative (Negative) ECG Data Interpretation: Sinus tachycardia, rate 124 beats per minute, right bundle-branch block, no STEMI MDM Narrative Medical decision making narrative: Chronically unwell patient presenting for shortness of breath and chest pain, recently discharged from the hospital. She was on Xarelto but is tachycardic on arrival and has right bundle-branch block. We will order labs, CT imaging. CT angio negative. Troponins negative x2. Patient positive for COVID-19. Counseled on supportive measures at home. Discharge Plan Departure Patient Disposition: Home Clinical Impression: COVID, Chest pain Instructions: DI for Chest Pain, COVID-19 Prescriptions: No Action metoprolol succinate 25 mg tablet extended release 24 hr 50 mg PO BID ferrous sulfate 325 mg (65 mg iron) tablet 325 mg PO DAILY docusate sodium [Col-Rite] 250 mg capsule 250 mg PO BID vitamin B complex Tablet 1 tab PO DAILY furosemide 40 mg tablet 40 mg PO BID Qty: 180 3RF Patient Comments: 60mg BID metformin 500 mg tablet 1,000 mg PO BID Qty: 360 3RF levothyroxine 25 mcg tablet 25 mcg PO DAILY Qty: 90 3RF doxepin 100 mg capsule 200 mg PO BEDTIME Qty: 60 5RF aripiprazole 30 mg tablet 30 mg PO BEDTIME Qty: 30 5RF Rx Instructions: Take one 30mg tablet by mouth daily levalbuterol tartrate 45 mcg/actuation HFA aerosol inhaler 1 puff inhalation Q4-6H PRN (Reason: shortness of breath or wheezing) Qty: 15 2RF magnesium oxide 400 mg (241.3 mg magnesium) tablet 400 mg PO DAILY Qty: 30 0RF (DME) glucose monitor See Rx Instructions .Route .MEDSUPPLY Qty: 1 0RF Rx Instructions: To test blood glucose daily (DME) glucose test strips See Rx Instructions .Route .MEDSUPPLY Qty: 100 3RF Rx Instructions: To test blood glucose daily (DME) lancets See Rx Instructions .Route .MEDSUPPLY Qty: 100 3RF Rx Instructions: to test blood glucose daily terazosin 2 mg capsule 2 mg PO ONCE PM Qty: 30 5RF omeprazole 20 mg capsule,delayed release(DR/EC) 20 mg PO BID Qty: 180 0RF pregabalin 300 mg capsule 300 mg PO BID Qty: 180 3RF Rx Instructions: take 1 capsule by mouth twice a day meclizine 25 mg tablet See Rx Instructions .ROUTE .COMPLEX Qty: 90 5RF Dose Instruction: TAKE 2 TABLETS BY MOUTH DAILY NEEDED FOR DIZZINESS OR VERTIGO Rx Instructions: TAKE up to 3 TABLETS BY MOUTH DAILY FOR DIZZINESS OR VERTIGO Xarelto 20 mg tablet 20 mg PO DAILY Qty: 90 1RF cyclobenzaprine 10 mg tablet 10 mg PO 3XD PRN (Reason: for muscle spasm) Qty: 90 0RF budesonide-formoterol [Symbicort] 160-4.5 mcg/actuation HFA aerosol inhaler 2 puff inhalation BID Qty: 10.2 3RF diazepam [Valium] 10 mg tablet 10 mg PO .COMPLEX MDD 3 tabs PRN (Reason: 1-2 prior to MRI and for possible steroid flare) Qty: 10 0RF Rx Instructions: 10 mg PO PRN; spironolactone 25 mg tablet 12.5 mg PO DAILY Qty: 45 3RF Mounjaro 2.5 mg/0.5 mL pen injector 2.5 mg SUBCUT QWEEK 28 Days Qty: 2 0RF Atrovent HFA 17 mcg/actuation HFA aerosol inhaler 1 puff PO Q8H Qty: 12.9 0RF ascorbic acid (vitamin C) 500 mg tablet 500 mg PO DAILY potassium gluconate 595 mg (99 mg) tablet 595 mg PO DAILY Levemir FlexPen 100 unit/mL (3 mL) insulin pen 25 unit SUBCUT BEDTIME Qty: 15 1RF fluconazole 200 mg tablet 200 mg PO DAILY Qty: 14 0RF Referrals: Alejandra Lynch MD [Primary Care Provider] - Stand Alone Forms: Patient Portal/API
--- NOTE | 2023-07-12 19:06 | DI.CT.S_ITS ---
PROCEDURE: CT ANGIO CHEST PE PROTOCOL INDICATIONS: CHEST PAIN, TACHYCARDIA, RECENT HOSPITALIZATION TECHNIQUE: After the administration of intravenous contrast, 2 mm thick sections acquired from the pulmonary apices to the posterior costophrenic angles. 3-dimensional maximum intensity projection (MIP) coronal and sagittal reformats were then acquired through the thorax. For radiation dose reduction, the following was used: automated exposure control, adjustment of mA and/or kV according to patient size. COMPARISON: [facility], CT, CT ANGIO CHEST PE PROTOCOL, 09/20/2022, 1:25. [facility], CT, CT ANGIO CHEST, 07/25/2022, 13:36. FINDINGS: Image quality: There is suboptimal timing of contrast bolus limiting evaluation of the pulmonary arteries. The pulmonary arteries were adequately visualized to level of the proximal segmental pulmonary arteries. Pulmonary arteries: Pulmonary arteries are normal in size, and demonstrate no intraluminal filling defects to suggest central pulmonary embolism. Lower Neck: No enlarged lymph nodes. Thyroid: No thyroid nodules which require sonographic follow up, per consensus guidelines. Axillae: No enlarged lymph nodes. Chest Wall: Unremarkable. Bones: Unremarkable. Lungs and Pleura: No pneumothorax or pleural effusions. No consolidation or suspicious nodules. Bibasilar atelectasis. Heart: Heart size is normal. No pericardial effusion. Thoracic Vessels: No aortic aneurysm. Mediastinum and Kristine: No enlarged lymph nodes. Esophagus: No wall thickening. No hiatal hernia. Upper Abdomen: Visualized upper abdomen solid organs and bowel loops appear normal. IMPRESSION: No pulmonary embolus. No acute cardiopulmonary process. Dictated by: Jim Magana M.D. on 07/12/2023 at 20:00 Approved by: Jim Magana M.D. on 07/12/2023 at 20:02
[2023-07-12 19:12] LABS: Add Manual Diff / Slide Review NO; Basophils Absolute Auto 0 /uL (0-100); Basophils Percent Auto 0.6 % (0-2); Eosinophils Absolute Auto 100 /uL (0-450); Eosinophils Percent Auto 2.3 % (2-4); Hematocrit 40.2 % (36-46); Hemoglobin 13.4 g/dL (12.0-16.0); Lymphocytes Absolute Auto 1600 /uL (1100-4500); Lymphocytes Percent Auto 26.7 % (25-40); Mean Corpuscular HGB Conc 33.4 % (30-36); Mean Corpuscular Hemoglobin 28.8 PG (26-34); Mean Corpuscular Volume 86.1 fL (80-100); Monocytes Absolute Auto 600 /uL (0-900); Monocytes Percent Auto 9.8 % (3-14); Neutrophils Absolute Auto 3700 /uL (1500-7000); Neutrophils Percent Auto 60.6 % (50-75); Platelet Count 202 X10^3/uL (150-400); Red Blood Cell Count 4.66 X10^6/uL (4.0-5.2); Red Cell Distribution Width 13.4 % (11.6-14.8); White Blood Cell Count 6.2 X10^3/uL (4.5-11.0)
[2023-07-12 19:21] LABS: INR 0.9 (0.9-1.3); Prothrombin Time 10.8 SECONDS (9.4-12.5)
--- NOTE | 2023-07-12 19:22 | PC.NURSE ---
Pt reports sore throat, body aches, headache, general fatigue, nausea and not feeling well since yesterday. Pt also reports significant life stressor of her mom passing away.
[2023-07-12 19:23] LABS: PTT Partial Thromboplastin Tim 33 SECONDS (25.1-36.5)
[2023-07-12 19:25] LABS: Alanine Aminotransferase 36 IU/L (<35); Albumin 4.3 g/dL (3.5-5.0); Albumin Globulin Ratio 1.1 (1.0-2.8); Alkaline Phosphatase 66 U/L (38-126); Aspartate Aminotransferase 31 IU/L (14-36); Bilirubin Total 0.4 mg/dL (0.2-1.3); Blood Urea Nitrogen 9 mg/dL (7-17); Calcium 10.1 mg/dL (8.4-10.2); Carbon Dioxide 30 mmol/L (22-32); Chloride 99 mmol/L (98-107); Creatine Kinase 99 U/L (30-135); Estimated Glomerular Filt Rate > 60 mL/min (>60); Glucose 273 mg/dL (70-100); HEMOLYSIS 16 (0-50); Lipase 87 U/L (23-300); Potassium 3.8 mmol/L (3.4-5.1); Sodium 139 mmol/L (137-145); Total Protein 8.3 g/dL (6.3-8.2)
[2023-07-12 19:36] LABS: Troponin I < 0.012 ng/mL (0.01-0.034)
[2023-07-12 21:20] LABS: Troponin I < 0.012 ng/mL (0.01-0.034)
[2023-07-12] MEDS: KETOROLAC 30 MG/ML VIAL 15 MG IV (21:23)
[2023-07-12 22:04] LABS: Influenza A - CEPHEID Flu A NEGATIVE (NEGATIVE); Influenza B - CEPHEID Flu B NEGATIVE (NEGATIVE); Respiratory Syncytial Virus Negative (Negative)
[2023-07-12 22:09] LABS: COVID-19 CEPHEID 4-PLEX PCR POSITIVE (Negative)
== END 2023-07-12 22:23 | disposition home or self-care (01) ==
PROVIDERS: Emergency Provider Emergency Medicine; Family Provider Family Medicine; PCP Family Medicine
DX: U07.1 COVID-19 (principal); R07.9 Chest pain, unspecified; I45.10 Unspecified right bundle-branch block
CPT/HCPCS: 0241U; 36415; 71045; 71275; 80053; 82550; 82962; 83690; 83735; 84484; 85025; 85610; 85730; 93005; 96374; 99284; J1885

== ENCOUNTER 2023-08-02 21:54 | Emergency (ER) | payer OTHER, MEDICARE, SELFPAY ==
[2023-07-09 21:11] VITALS: BMI 50.6
[2023-08-02] VITALS (7 sets, daily range): BP systolic 125–143; BP diastolic 67–94; PULSE 108–123; RESP 13–22; TEMP 36.7; O2SAT 94–96; BMI 50.2
--- NOTE | 2023-08-02 22:03 | ED_ITS ---
HPI - General Adult General Chief complaint: Diabetic Problem Stated complaint: DKA Time Seen by Provider: 08/02/23 21:55 History of Present Illness HPI narrative: 42-year-old female with history of insulin-dependent diabetes, hypertension, anxiety, depression, DVT on Xarelto presents by EMS from home for palpitations, lightheadedness, difficulty in controlling blood sugars. Patient states she has had numerous insulin changes from her primary care doctor, but has had difficulty in controlling her sugars at home. She was an appointment with the dietitian next month. She states she was felt generally poorly, but tonight she was having even more problems controlling her blood sugar so she decided to call 911 for evaluation. Denies chest pain or shortness of breath. Related Data Home Medications Medication Instructions Recorded Confirmed ascorbic acid (vitamin C) 500 mg 500 mg PO DAILY 07/28/22 08/05/23 tablet potassium gluconate 595 mg (99 mg) 595 mg PO DAILY 07/28/22 08/05/23 tablet metoprolol succinate 25 mg 50 mg PO BID 10/10/22 08/05/23 tablet,extended release 24 hr docusate sodium 250 mg capsule 250 mg PO BID 12/03/22 08/05/23 (Col-Rite) ferrous sulfate 325 mg (65 mg 325 mg PO DAILY 12/03/22 08/05/23 iron) tablet vitamin B complex 1 tab PO DAILY 12/03/22 08/05/23 acetaminophen 500 mg tablet 1,000 mg PO Q6H PRN 08/05/23 08/05/23 (Tylenol Extra Strength) blood sugar diagnostic (True #10 ea 08/05/23 08/05/23 Metrix Glucose Test Strip) blood-glucose sensor (FreeStyle #1 ea 08/05/23 08/05/23 Kevin 3 Sensor device) ketoconazole 2 % shampoo topical 08/05/23 08/05/23 ketoconazole 2 % topical cream 1 applic topical DAILY 08/05/23 08/05/23 lancets 33 gauge (Micro Thin #100 ea 08/05/23 08/05/23 Lancets) pen needle, diabetic 32 gauge x #1,200 08/05/23 08/05/23 5/32 (BD Monika 2nd Gen Pen Needle) triamcinolone acetonide 0.1 % 1 applic topical 08/05/23 08/05/23 topical cream Previous Rx's Medication Instructions Recorded levalbuterol tartrate 45 1 puff inhalation Q4-6H PRN 01/22/22 mcg/actuation aerosol inhaler shortness of breath or wheezing #15 grams magnesium oxide 400 mg (241.3 mg 400 mg PO DAILY #30 tabs 07/18/22 magnesium) tablet glucose monitor #1 ea 12/01/22 glucose test strips #100 ea 12/01/22 lancets #100 ea 12/01/22 furosemide 40 mg tablet 40 mg PO BID #180 tabs 12/03/22 levothyroxine 25 mcg tablet 25 mcg PO DAILY #90 tabs 12/03/22 metformin 500 mg tablet 1,000 mg (2 x 500 mg) PO BID #360 12/03/22 tabs terazosin 2 mg capsule 2 mg PO ONCE PM #30 caps 12/22/22 omeprazole 20 mg capsule,delayed 20 mg PO BID #180 caps 12/30/22 release pregabalin 300 mg capsule 300 mg PO BID #180 caps 02/12/23 doxepin 100 mg capsule 200 mg (2 x 100 mg) PO BEDTIME #60 03/25/23 caps meclizine 25 mg tablet See Rx Instructions .Route 04/24/23 .COMPLEX #90 tabs rivaroxaban 20 mg tablet (Xarelto) 20 mg PO DAILY #90 tabs 04/27/23 aripiprazole 30 mg tablet 30 mg PO BEDTIME #30 tabs 06/15/23 budesonide-formoterol HFA 160 2 puff inhalation BID #10.2 grams 06/22/23 mcg-4.5 mcg/actuation aerosol inhaler (Symbicort) spironolactone 25 mg tablet 12.5 mg (1/2 x 25 mg) PO DAILY #45 06/22/23 tabs ipratropium bromide 17 1 puff PO Q8H #12.9 grams 07/06/23 mcg/actuation HFA aerosol inhaler (Atrovent HFA) fluconazole 200 mg tablet 200 mg PO DAILY #14 tabs 07/11/23 cyclobenzaprine 10 mg tablet 10 mg PO 3XD PRN for muscle spasm 07/14/23 #90 tabs insulin detemir U-100 100 unit/mL 40 unit (0.4 mL) SUBCUT BEDTIME 07/22/23 (3 mL) subcutaneous pen (Levemir #15 mL FlexPen) tirzepatide 2.5 mg/0.5 mL 2.5 mg (0.5 mL) SUBCUT QWEEK #2 mL 07/22/23 subcutaneous pen injector (Keith) empagliflozin 10 mg tablet 10 mg PO DAILY #30 tabs 07/24/23 (Jardiance) insulin lispro 100 unit/mL 5 unit (0.05 mL) SUBCUT TID #15 mL 07/24/23 subcutaneous pen freestyle kevin 3 glucose monitor #1 ea 07/27/23 freestyle kevin 3 reader #1 ea 07/28/23 Allergies Allergy/AdvReac Type Severity Reaction Status Date / Time risperidone [From Risperdal] Allergy Verified 08/04/23 14:56 carisoprodol [CARISOPRODOL] AdvReac Severe urinary Verified 08/04/23 14:56 retention fosphenytoin AdvReac Severe Seizures Verified 08/04/23 14:56 Latex, Natural Rubber AdvReac Mild Rash Verified 08/04/23 14:56 Review of Systems Review of Systems Narrative: Negative except as noted above Patient History Medical History Cervical radiculopathy 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) 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 Hypoxia Sinus tachycardia RBBB (right bundle branch block) Tobacco abuse Psychogenic nonepileptic seizure DM type 2 (diabetes mellitus, type 2) Alcoholism DVT (deep venous thrombosis) Narcotic habituation, continuous Pulmonary embolism Morbid obesity Asthma Essential hypertension LYLA (obstructive sleep apnea) Acetaminophen overdose of undetermined intent (12/2015) Suicide attempt Intraoperative cardiac arrest during non-cardiac surgery (11/2013) Ovarian cyst Plantar fasciitis 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 Cubital tunnel syndrome Status post laminectomy (12/14/15) Gastroesophageal reflux disease without esophagitis (03/02/15) Fibromyalgia (03/02/15) Tylenol overdose Obstipation Urinary retention Surgical History S/P lumbar spinal fusion H/O: hysterectomy Hx of toe surgery (05/16/20) History of carpal tunnel repair (~10/30/14) History of laminectomy (~09/2016) History of laminectomy History of colonoscopy History of esophagogastroduodenoscopy (EGD) History of lumbar spinal fusion (12/22/18) S/P epidural steroid injection (11/2013) Status post dilation and curettage (2008) Family History Grandfather Diabetes mellitus Family/Other Pancreatic cancer Social History household members: spouse Smoking Status: Former smoker alcohol intake: former eating out: 1-3 times/week Type(s) of exercise: normal ROM and activity and sedentary lifestyle Smoking Status: Former smoker tobacco type: cigarettes alcohol intake frequency: other Substance Use Type: does not use Exam Initial Vital Signs Initial Vital Signs: Vital Signs Pulse Rate 123 H 08/02/23 21:58 Pulse Oximetry 96 08/02/23 21:58 Const: Awake, alert, no acute distress, appears chronically unwell Cardiac: Tachycardia, regular rhythm RESP: unlabored, clear bilaterally, no wheezing GI: Soft, nontender, nondistended, no rebound, no guarding MSK: Atraumatic, full range of motion, pulses equal Skin: Warm, Dry, intact, no rashes Neuro: AO x3, CN II-XII grossly intact, moves all extremities Course Orders Ordered: Discontinued Medications Sodium Chloride (Normal Saline 0.9%) 1,000 mls @ 1,000 mls/hr IV BOLUS ONE Stop: 08/02/23 23:01 Last Infusion: 08/02/23 23:28 Dose: Infused Documented By: Admin: 08/02/23 22:18 Dose: 1,000 mls/hr Documented By: KRISTI Vital Signs Vital signs: Vital Signs - 8 hr 08/02/23 21:58 08/02/23 21:59 08/02/23 22:00 Temperature 98.1 F Pulse Rate 123 H 121 H 121 H Respiratory Rate 20 22 Blood Pressure 143/94 H Pulse Oximetry 96 95 95 Oxygen Delivery Method Room Air 08/02/23 22:01 08/02/23 22:01 Temperature Pulse Rate 121 H Respiratory Rate 20 Blood Pressure 143/94 H Pulse Oximetry 95 Oxygen Delivery Method Medical Decision Making Differential Diagnosis Differential Diagnosis: DKA, hyperglycemia, HHS Lab Data 08/02/23 22:13 08/02/23 22:13 Labs: Lab Results 08/02/23 08/02/23 Range/Units 22:02 22:13 WBC 6.5 (4.5-11.0) X10^3/uL RBC 4.55 (4.0-5.2) X10^6/uL Hgb 13.1 (12.0-16.0) g/dL Hct 39.3 (36-46) % MCV 86.4 (80-100) fL MCH 28.7 (26-34) PG MCHC 33.2 (30-36) % RDW 13.7 (11.6-14.8) % Plt Count 208 (150-400) X10^3/uL Neut % (Auto) 60.5 (50-75) % Lymph % (Auto) 27.4 (25-40) % [place] % (Auto) 7.9 (3-14) % Eos % (Auto) 3.5 (2-4) % Baso % (Auto) 0.7 (0-2) % Neut # (Auto) 3900 (6244-7899) /uL Lymph # (Auto) 1800 (3190-4461) /uL [place] # (Auto) 500 (0-900) /uL Eos # (Auto) 200 (0-450) /uL Baso # (Auto) 0 (0-100) /uL VBG pH 7.43 (7.33-7.43) VBG pCO2 40.9 L (45-50) mmHg VBG pO2 47 H (35-45) mmHg VBG HCO3 27 (24-28) mmol/L VBG Total CO2 28 (24-29) mmol/L VBG O2 Saturation 84 H (70-75) % VBG Base Excess 3.0 (0-4) mmol/L FiO2 21 Sodium 142 (137-145) mmol/L Potassium 3.7 (3.4-5.1) mmol/L Chloride 106 (98-107) mmol/L Carbon Dioxide 26 (22-32) mmol/L BUN 10 (7-17) mg/dL Creatinine 0.55 (0.52-1.04) mg/dL Estimated GFR > 60 (>60) mL/min BUN/Creatinine Ratio 18.2 (6-22) Glucose 284 H (70-100) mg/dL Calcium 9.3 (8.4-10.2) mg/dL Total Bilirubin 0.4 (0.2-1.3) mg/dL AST 27 (14-36) IU/L ALT 29 (<35) IU/L Alkaline Phosphatase 66 (38-126) U/L Total Protein 7.9 (6.3-8.2) g/dL Albumin 4.3 (3.5-5.0) g/dL Globulin 3.6 (1.7-4.1) g/dL Albumin/Globulin Ratio 1.2 (1.0-2.8) Ketones 0.15 (<0.27) mmol/L Point of Care Testing Glucose POC 175 Point of care testing: Point of Care Testing Glucose POC 175 MDM Narrative Medical decision making narrative: Nontoxic patient presenting with difficulty controlling blood sugars as well as general unwell feeling. Patient tachycardic on arrival, however patient has chronic tachycardia and she appears to be in her normal heart rate range. Accu- Chek on arrival 313. IV fluids ordered. Laboratory work is reviewed. WBC count 6.5, hemoglobin 13.1, sodium 142, potassium 3.7, CO2 26, creatinine 0.55. Jerrica does not have an elevated anion gap and is not currently in DKA. Blood sugar decreased with IV fluids and is now below 200. Patient states her sugar when she wakes up is quite variable. Patient encouraged to monitor her carbohydrate intake and follow up with her primary care physician. She was counseled on the importance of following up with the traditional maori health practitioner in August as scheduled. Discharge Plan Departure Patient Disposition: Home Clinical Impression: Hyperglycemia Instructions: DI for Diabetes Type 2 Activity Restrictions/Additional Instructions: Follow up with your doctor to discuss your diabetes and blood sugar levels Prescriptions: No Action Jardiance 10 mg tablet 10 mg PO DAILY Qty: 30 3RF insulin lispro 100 unit/mL insulin pen 5 unit SUBCUT TID Qty: 15 3RF metoprolol succinate 25 mg tablet extended release 24 hr 50 mg PO BID ferrous sulfate 325 mg (65 mg iron) tablet 325 mg PO DAILY docusate sodium [Col-Rite] 250 mg capsule 250 mg PO BID vitamin B complex Tablet 1 tab PO DAILY furosemide 40 mg tablet 40 mg PO BID Qty: 180 3RF Patient Comments: 60mg BID metformin 500 mg tablet 1,000 mg PO BID Qty: 360 3RF levothyroxine 25 mcg tablet 25 mcg PO DAILY Qty: 90 3RF doxepin 100 mg capsule 200 mg PO BEDTIME Qty: 60 5RF aripiprazole 30 mg tablet 30 mg PO BEDTIME Qty: 30 5RF Rx Instructions: Take one 30mg tablet by mouth daily levalbuterol tartrate 45 mcg/actuation HFA aerosol inhaler 1 puff inhalation Q4-6H PRN (Reason: shortness of breath or wheezing) Qty: 15 2RF magnesium oxide 400 mg (241.3 mg magnesium) tablet 400 mg PO DAILY Qty: 30 0RF (DME) glucose monitor See Rx Instructions .Route .MEDSUPPLY Qty: 1 0RF Rx Instructions: To test blood glucose daily (DME) glucose test strips See Rx Instructions .Route .MEDSUPPLY Qty: 100 3RF Rx Instructions: To test blood glucose daily (DME) lancets See Rx Instructions .Route .MEDSUPPLY Qty: 100 3RF Rx Instructions: to test blood glucose daily terazosin 2 mg capsule 2 mg PO ONCE PM Qty: 30 5RF omeprazole 20 mg capsule,delayed release(DR/EC) 20 mg PO BID Qty: 180 0RF pregabalin 300 mg capsule 300 mg PO BID Qty: 180 3RF Rx Instructions: take 1 capsule by mouth twice a day meclizine 25 mg tablet See Rx Instructions .ROUTE .COMPLEX Qty: 90 5RF Dose Instruction: TAKE 2 TABLETS BY MOUTH DAILY NEEDED FOR DIZZINESS OR VERTIGO Rx Instructions: TAKE up to 3 TABLETS BY MOUTH DAILY FOR DIZZINESS OR VERTIGO Xarelto 20 mg tablet 20 mg PO DAILY Qty: 90 1RF budesonide-formoterol [Symbicort] 160-4.5 mcg/actuation HFA aerosol inhaler 2 puff inhalation BID Qty: 10.2 3RF spironolactone 25 mg tablet 12.5 mg PO DAILY Qty: 45 3RF Atrovent HFA 17 mcg/actuation HFA aerosol inhaler 1 puff PO Q8H Qty: 12.9 0RF cyclobenzaprine 10 mg tablet 10 mg PO 3XD PRN (Reason: for muscle spasm) Qty: 90 0RF Levemir FlexPen 100 unit/mL (3 mL) insulin pen 40 unit SUBCUT BEDTIME Qty: 15 1RF Mounjaro 2.5 mg/0.5 mL pen injector 2.5 mg SUBCUT QWEEK Qty: 2 0RF (DME) freestyle kevin 3 glucose monitor See Rx Instructions .Route .MEDSUPPLY Qty: 1 0RF Rx Instructions: As directed (DME) freestyle kevin 3 reader See Rx Instructions .Route .MEDSUPPLY Qty: 1 0RF Rx Instructions: As directed ascorbic acid (vitamin C) 500 mg tablet 500 mg PO DAILY potassium gluconate 595 mg (99 mg) tablet 595 mg PO DAILY fluconazole 200 mg tablet 200 mg PO DAILY Qty: 14 0RF (DME) pen needle, diabetic [BD Monika 2nd Gen Pen Needle] 32 gauge x 5/32 needle See Rx Instructions .ROUTE DAILY Qty: 1200 Rx Instructions: As directed (DME) True Metrix Glucose Test Strip Strip See Rx Instructions .ROUTE DAILY Qty: 10 Rx Instructions: As directed (DME) lancets [Micro Thin Lancets] 33 gauge misc See Rx Instructions .ROUTE DAILY Qty: 100 Rx Instructions: As directed ketoconazole 2 % shampoo topical triamcinolone acetonide 0.1 % cream 1 applic topical ketoconazole 2 % cream 1 applic topical DAILY (DME) FreeStyle Kevin 3 Sensor Device See Rx Instructions .ROUTE .MEDSUPPLY Qty: 1 Rx Instructions: As directed acetaminophen [Tylenol Extra Strength] 500 mg tablet 1,000 mg PO Q6H PRN Referrals: Alejandra Lynch MD [Primary Care Provider] - Stand Alone Forms: Patient Portal/API
[2023-08-02] MEDS: SODIUM CHLORIDE 0.9% 1,000 ML 1000 ML IV (22:18)
[2023-08-02 22:24] LABS: Add Manual Diff / Slide Review NO; Basophils Absolute Auto 0 /uL (0-100); Basophils Percent Auto 0.7 % (0-2); Eosinophils Absolute Auto 200 /uL (0-450); Eosinophils Percent Auto 3.5 % (2-4); Hematocrit 39.3 % (36-46); Hemoglobin 13.1 g/dL (12.0-16.0); Lymphocytes Absolute Auto 1800 /uL (1100-4500); Lymphocytes Percent Auto 27.4 % (25-40); Mean Corpuscular HGB Conc 33.2 % (30-36); Mean Corpuscular Hemoglobin 28.7 PG (26-34); Mean Corpuscular Volume 86.4 fL (80-100); Monocytes Absolute Auto 500 /uL (0-900); Monocytes Percent Auto 7.9 % (3-14); Neutrophils Absolute Auto 3900 /uL (1500-7000); Neutrophils Percent Auto 60.5 % (50-75); Platelet Count 208 X10^3/uL (150-400); Red Blood Cell Count 4.55 X10^6/uL (4.0-5.2); Red Cell Distribution Width 13.7 % (11.6-14.8); White Blood Cell Count 6.5 X10^3/uL (4.5-11.0)
[2023-08-02 22:35] LABS: HEMOLYSIS 30 (0-50)
[2023-08-02 22:40] LABS: Alanine Aminotransferase 29 IU/L (<35); Albumin 4.3 g/dL (3.5-5.0); Albumin Globulin Ratio 1.2 (1.0-2.8); Alkaline Phosphatase 66 U/L (38-126); Aspartate Aminotransferase 27 IU/L (14-36); BUN Creatinine Ratio 18.2 (6-22); Bilirubin Total 0.4 mg/dL (0.2-1.3); Blood Urea Nitrogen 10 mg/dL (7-17); Calcium 9.3 mg/dL (8.4-10.2); Carbon Dioxide 26 mmol/L (22-32); Chloride 106 mmol/L (98-107); Estimated Glomerular Filt Rate > 60 mL/min (>60); Globulin 3.6 g/dL (1.7-4.1); Glucose 284 mg/dL (70-100); Potassium 3.7 mmol/L (3.4-5.1); Sodium 142 mmol/L (137-145); Total Protein 7.9 g/dL (6.3-8.2)
[2023-08-02 22:51] LABS: Ketones (Beta-Hydroxybutyrate) 0.15 mmol/L (<0.27)
[2023-08-03 04:54] LABS: HCO3 VBG 27 mmol/L (24-28); PCO2 VBG 40.9 mmHg (45-50); PO2 VBG 47 mmHg (35-45); Total CO2 VBG 28 mmol/L (24-29); pH VBG 7.43 (7.33-7.43)
[2023-08-03 04:55] LABS: Fractionated Inspired Oxygen 21; Oxygen Saturation VBG 84 % (70-75)
== END 2023-08-02 23:59 | disposition home or self-care (01) ==
PROVIDERS: Emergency Provider Emergency Medicine; Family Provider Family Medicine; PCP Family Medicine
DX: R00.2 Palpitations (principal); E11.65 Type 2 diabetes mellitus with hyperglycemia; Z79.4 Long term (current) use of insulin
CPT/HCPCS: 36415; 80053; 82009; 82805; 82962; 85025; 99283; 99284

== ENCOUNTER → 2023-08-25 15:16 | Outpatient (CLI) | payer OTHER, MEDICARE, SELFPAY ==
[2023-07-09 21:11] VITALS: BMI 50.6
--- NOTE | 2023-09-03 13:41 | DIAB.MNT ---
Initial Diabetes Medical Nutrition Therapy Assessment Name: Nuvia Alvarado Date: 08/25/23 Time: 335-5p Dx: Type II Diabetes Jenny presents for initial DM visit with spouse, Morgan. This RD saw Nuvia during her hospitalization in . Reports Reports her mother while admitted. Reports managing with seeing psych and hospice bereavement resources. Got a journal and trying to increase activity. Reports DM ed with previous [facility] 2 years ago. Reports neuropathy symptoms in feet. Reports bouts of constipation and diarrhea. Eats out 2x per month. Reports eating when bored at night after goes to work. Trying to manage portions. Limited water intake. excessive ETOH on weekends with 3-4 servings in a sitting. Diet Recall: 9a: yogurt, fruit, granola sn; nothing or sandwich on ww bread 3p: protein, 1c rice, salad 6-7p: 1c cereal 8-9p: ice cream bar or 1c gummy bears water 0-16oz, sf juice 16oz, diet soda 12oz, rum and sf mixer 1-4 servings in a sitting Anthropometrics: Ht: 5'5 Wt: 293.5# 07/2023 per EMR Physical Activity: Starting PT. No program. Self-Monitoring Blood Glucose: States she reduced her Detemir from 40u down to 25u due to fear of lows, however seems these lows may have been compression site lows or sensor failures, in other words false lows. No fingerstick to confirm, no symptoms reported, but the reports indicate lows in the 40s that do not seem to follow usual patterns for a true low. The sensor readings were inconsistent and then flat lined in the 40s, which is typical of false low issues. Time in range 14 days 1% very high 17% high 81% in range 0% low 1% very low Av mg/dl GMI: 6.9% glucose variability: 24.1% overall averages and variability are well managed, however seems she may wake elevated in the 150s or higher. Likely did not need the recent reduction in detemir. Unaware of how to tx a low. Diabetes Medications: 1000mg Metformin BID 10mg Jardiance 2.5mg Tirzepetide per week 20-40u Detemir HS 5u TID Lispro Pertinent Labs: HgA1c: 7% 06/2022 7.9% 09/2022 8% 04/2023 Past Medical History: (Last Reviewed 08/05/23 @ 22:39 by Jenna Nicole MD) Acetaminophen overdose of undetermined intent (12/2015) Alcoholism 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 Asthma Cervical radiculopathy Cubital tunnel syndrome DM type 2 (diabetes mellitus, type 2) DVT (deep venous thrombosis) Essential hypertension Fibromyalgia (03/02/15) Gastroesophageal reflux disease without esophagitis (03/02/15) Hypoxia With sleep Intraoperative cardiac arrest during non-cardiac surgery (11/2013) Arrested during carpal tunnel surgery 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) Elias Respironics CPAP announced 11/05/20) Morbid obesity Narcotic habituation, continuous Nocturnal hypoxemia on supplemental O2 @ 2-3L/min Obstipation LYLA (obstructive sleep apnea) On overnight home O2 due to hypoxic respiratory failure from noncompliance with CPAP Ovarian cyst Plantar fasciitis Psychogenic nonepileptic seizure Pulmonary embolism 02/14/19, CT at [facility] RBBB (right bundle branch block) Sinus tachycardia Status post laminectomy (12/14/15) Suicide attempt 09/01 (uncertain if that is 08/2009 or 09/01/YJOSE) Tobacco abuse Tylenol overdose Urinary retention Nutrition Rx: Carbohydrates: Meal:30-45g Snack:15-30g Nutrition Diagnosis: - Excessive CHO intake r/t stage of change preparation and knowledge deficit aeb diet recall and pt report - Physical inactivity r/t physical ability barriers and stage of change contemplation aeb pt report - Inadequate fluid intake r/t knowledge deficit aeb pt report and diet recall Intervention: This participant was very receptive. Provided appropriate educational handouts. Discussed the following topics: Completed intake assessment. Discussed barriers to care. Pathophysiology of T2DM CGM review and trends Rule of 15 for tx of lows Sensor issues and troubleshooting BG goals and rationale Plate Method, impact of macronutrients on blood sugar, meal timing, carbohydrate counting, pairing macronutrients and spreading out carbohydrates for better blood glucose management Recommended servings for carbohydrates at meals and snacks Heart health nutrition Brainstormed appropriate meal plan based on food preferences Role of physical activity and following provider guidelines for safety Created SMART goals for patient self-care and success. Goals: Aim for 80-130mg/dl fasting Slowly titrate Detemir (2u q 2-3 days) until in goal Add 16oz water more per day Set two snack times at night to avoid over consumption use journal for stress management Follow-up: NOAM ASTORGA follow-up in 2-3 weeks Roma Srinivasan RDN, JAMILAES Certified Diabetes Care and [employer] Turbine [employer] P: [phone] Thank you for this referral
== END ==
PROVIDERS: Family Provider Family Medicine; PCP Family Medicine; Referring Provider Family Medicine; Visit Provider Family Medicine
DX: E11.9 Type 2 diabetes mellitus without complications (principal); Z71.3 Dietary counseling and surveillance; Z68.43 Body mass index [BMI] 50.0-59.9, adult; Z79.4 Long term (current) use of insulin; Z79.84 Long term (current) use of oral hypoglycemic drugs
CPT/HCPCS: 97802

== ENCOUNTER → 2023-09-14 11:00 | Outpatient (CLI) | payer OTHER, MEDICARE, SELFPAY ==
[2023-07-09 21:11] VITALS: BMI 50.6
--- NOTE | 2023-09-23 17:25 | DIAB.MNTFU ---
Follow-up Diabetes Medical Nutrition Therapy Assessment Name: Nuvia Alvarado Date: 09/14/23 Time: 220-3p Dx: Type II Diabetes Nuvia presents for virtual follow-up via Portal. Limiting evening eating No food after 7-8pm Setting snack times, as discussed. Falls asleep at 7p, so will not need 9p snack. Reduced candy intake (bag that usually lasted 2-3 days, now lasts a week). Needing more education on carb foods, ie corn as a carb. Does not want to take insulin at meals when eating out, ?hassel?. Eats out 1x per week or q 2 weeks. Plans to receive new sensor from [facility] due to replacement of faulty sensor. Not currently wearing a sensor. Diet Recall: 9am: zero yogurt, sprinkle granola with fruit 12-1p: [place] 3pm: chicken with veggies and corn or green beans or salad and mac n cheese 1c 545-6p: leftover dinner or crackers 1c and dip or ice cream bar 10-11p: cereal cheerios 1c with milk Water, sf juice, +/- can diet soda, cold brew coffee 3c black, hot coffee 1c ETOH on weekends: 3-4 per night when watching tv with Seeing Didierjacquelis in September Anthropometrics: Ht: 5'5 Wt: 293.5# 07/2023 per EMR Physical Activity: In PT, trying to walk without a walker. Trying to be more active in the house. Doing PT exercises. Self-Monitoring Blood Glucose: Time in range has improved. Overall, BG trends are doing great. Time in range 14 days 0% very high 3% high 97% in range 0% low 0% very low Av mg/dl GMI: 6.4% glucose variability: 20.8% Last Visit: Time in range 14 days 1% very high 17% high 81% in range 0% low 1% very low Av mg/dl GMI: 6.9% glucose variability: 24.1% Diabetes Medications: 1000mg Metformin BID 10mg Jardiance 2.5mg Tirzepetide per week 40u Detemir HS 3-5u TID Lispro Pertinent Labs: HgA1c: 7% 06/2022 7.9% 09/2022 8% 04/2023 Past Medical History: (Last Reviewed 09/18/23 @ 14:53 by Zana Arora DO) Acetaminophen overdose of undetermined intent (12/2015) Alcoholism 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 Asthma Cervical radiculopathy Cubital tunnel syndrome DM type 2 (diabetes mellitus, type 2) DVT (deep venous thrombosis) Essential hypertension Fibromyalgia (03/02/15) Gastroesophageal reflux disease without esophagitis (03/02/15) Hypoxia With sleep Intraoperative cardiac arrest during non-cardiac surgery (11/2013) Arrested during carpal tunnel surgery 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) Elias Respironics CPAP announced 11/05/20) Morbid obesity Narcotic habituation, continuous Nocturnal hypoxemia on supplemental O2 @ 2-3L/min Obstipation LYLA (obstructive sleep apnea) On overnight home O2 due to hypoxic respiratory failure from noncompliance with CPAP Ovarian cyst Plantar fasciitis Psychogenic nonepileptic seizure Pulmonary embolism 02/14/19, [facility] at [facility] RBBB (right bundle branch block) Sinus tachycardia Status post laminectomy (12/14/15) Suicide attempt 09/01 (uncertain if that is 08/2009 or 09/01/LEANNA) Tobacco abuse Tylenol overdose Urinary retention Nutrition Rx: Carbohydrates: Meal:30-45g Snack:15-30g Nutrition Diagnosis: - Excessive CHO intake r/t stage of change preparation and knowledge deficit aeb diet recall and pt report- improved - Physical inactivity r/t physical ability barriers and stage of change contemplation aeb pt report - improved - Inadequate fluid intake r/t knowledge deficit aeb pt report and diet recall- in progress/improved - Excessive ETOH intake r/t knowledge deficit on ETOH recs aeb pt report of weekend >1 serving- new - Excessive caffeine intake r/t knowledge deficit aeb diet recall of 4+ c coffee per day- new Intervention: This participant was very receptive. Provided appropriate educational handouts. Discussed the following topics: Blood sugar review and trends. Meal planning and carb counting review Physical activity plan and progress Caffeine recs for overall health Fluid recs for overall health ETOH recs Created SMART goals for patient self-care and success. Goals: Aim for 80-130mg/dl fasting- met Slowly titrate Detemir (2u q 2-3 days) until in goal- met Add 16oz water more per day- met Set two snack times at night to avoid over consumption- met use journal for stress management- not discussed Count corn as a carb- new Refill FSL rx- new Limit cold brew to 2c coffee or less- new Reduce ETOH to 2-3 servings in a sitting max- new Follow-up: NOAM ASTORGA follow-up end of September after PCP visit mid-September. Overall, BG management is going well. Some excess intake of ETOH and caffeine. Will continue to slowly reduce to recs to maintain sustainability of changes. Roma Srinivasan RDN, [facility] Certified Diabetes Care and Landscaping Crew Leader P: [phone] Thank you for this referral
== END ==
PROVIDERS: Family Provider Family Medicine; PCP Family Medicine; Referring Provider Family Medicine
DX: E11.9 Type 2 diabetes mellitus without complications (principal); Z79.84 Long term (current) use of oral hypoglycemic drugs; Z79.4 Long term (current) use of insulin; Z79.85 Long-term (current) use of injectable non-insulin antidiabetic drugs; Z71.3 Dietary counseling and surveillance
CPT/HCPCS: 97803

== ENCOUNTER 2023-09-18 14:23 | Emergency (ER) | payer OTHER, MEDICARE, SELFPAY ==
[2023-07-09 21:11] VITALS: BMI 50.6
[2023-09-18] VITALS (8 sets, daily range): BP systolic 112–153; BP diastolic 71–86; PULSE 99–113; RESP 13–23; TEMP 36.3; O2SAT 95–96; BMI 49.2
--- NOTE | 2023-09-18 14:50 | ED.EXTPRO ---
HPI - Extremity Problem General Chief complaint: Extremity Problem,Nontraumatic Stated complaint: pain on rt leg & swelling Time Seen by Provider: 09/18/23 14:33 Source: patient Mode of arrival: Wheelchair History of Present Illness HPI Narrative: 42-year-old female was sent from the walk-in clinic for evaluation of right leg pain and swelling. She does have history of DVT. She states her DVTs of in her left extremity. Also has a history of PEs. Is on Xarelto. Has been taking her medication as directed. Last time that she missed a dose was in June when she had to have a procedure done and she did not take it for 3 days. She was having slight chest discomfort but no shortness of breath. No specific trauma to her leg. States the discomfort is between her right knee and right ankle. Her right leg is always more swollen than the left but she feels like it is more swollen today than baseline. No abdominal pain, nausea vomiting, skin rashes, fevers. Related Data Home Medications Medication Instructions Recorded Confirmed ascorbic acid (vitamin C) 500 mg 500 mg PO DAILY 07/28/22 09/18/23 tablet potassium gluconate 595 mg (99 mg) 595 mg PO DAILY 07/28/22 09/18/23 tablet metoprolol succinate 25 mg 50 mg PO BID 10/10/22 09/18/23 tablet,extended release 24 hr docusate sodium 250 mg capsule 250 mg PO BID 12/03/22 09/18/23 (Col-Rite) ferrous sulfate 325 mg (65 mg 325 mg PO DAILY 12/03/22 09/18/23 iron) tablet vitamin B complex 1 tab PO DAILY 12/03/22 09/18/23 acetaminophen 500 mg tablet 1,000 mg PO Q6H PRN 08/05/23 09/18/23 (Tylenol Extra Strength) blood sugar diagnostic (True #10 ea 08/05/23 09/18/23 Metrix Glucose Test Strip) ketoconazole 2 % shampoo topical 08/05/23 09/18/23 ketoconazole 2 % topical cream 1 applic topical DAILY 08/05/23 09/18/23 lancets 33 gauge (Micro Thin #100 ea 08/05/23 09/18/23 Lancets) triamcinolone acetonide 0.1 % 1 applic topical 08/05/23 09/18/23 topical cream Previous Rx's Medication Instructions Recorded levalbuterol tartrate 45 1 puff inhalation Q4-6H PRN 01/22/22 mcg/actuation aerosol inhaler shortness of breath or wheezing #15 grams magnesium oxide 400 mg (241.3 mg 400 mg PO DAILY #30 tabs 07/18/22 magnesium) tablet glucose monitor #1 ea 12/01/22 glucose test strips #100 ea 12/01/22 lancets #100 ea 12/01/22 furosemide 40 mg tablet 40 mg PO BID #180 tabs 12/03/22 levothyroxine 25 mcg tablet 25 mcg PO DAILY #90 tabs 12/03/22 metformin 500 mg tablet 1,000 mg (2 x 500 mg) PO BID #360 12/03/22 tabs omeprazole 20 mg capsule,delayed 20 mg PO BID #180 caps 12/30/22 release meclizine 25 mg tablet See Rx Instructions .Route 04/24/23 .COMPLEX #90 tabs aripiprazole 30 mg tablet 30 mg PO BEDTIME #30 tabs 06/15/23 budesonide-formoterol HFA 160 2 puff inhalation BID #10.2 grams 06/22/23 mcg-4.5 mcg/actuation aerosol inhaler (Symbicort) spironolactone 25 mg tablet 12.5 mg (1/2 x 25 mg) PO DAILY #45 06/22/23 tabs ipratropium bromide 17 1 puff PO Q8H #12.9 grams 07/06/23 mcg/actuation HFA aerosol inhaler (Atrovent HFA) empagliflozin 10 mg tablet 10 mg PO DAILY #30 tabs 07/24/23 (Jardiance) insulin lispro 100 unit/mL 5 unit (0.05 mL) SUBCUT TID #15 mL 07/24/23 subcutaneous pen freestyle chris 3 glucose monitor #1 ea 07/27/23 freestyle chris 3 reader #1 ea 07/28/23 freestyle chris 3 sensor #6 ea 08/10/23 insulin detemir U-100 100 unit/mL 35 unit (0.35 mL) SUBCUT BEDTIME 08/10/23 (3 mL) subcutaneous pen (Levemir #15 mL FlexPen) pregabalin 300 mg capsule 300 mg PO BID #180 caps 08/17/23 terazosin 2 mg capsule 2 mg PO QPM #30 caps 08/19/23 rivaroxaban 20 mg tablet (Xarelto) 20 mg PO DAILY #90 tabs 08/27/23 cyclobenzaprine 10 mg tablet 10 mg PO 3XD PRN for muscle spasm 08/31/23 #90 tabs doxepin 100 mg capsule 200 mg (2 x 100 mg) PO BEDTIME #60 09/10/23 caps pen needle, diabetic 32 gauge x #100 ea 09/14/23 (BD Monika 2nd Gen Pen Needle) tirzepatide 2.5 mg/0.5 mL 2.5 mg (0.5 mL) SUBCUT QWEEK #2 mL 09/17/23 subcutaneous pen injector (Keith) Allergies Allergy/AdvReac Type Severity Reaction Status Date / Time risperidone [From Risperdal] Allergy Verified 09/18/23 14:02 carisoprodol [CARISOPRODOL] AdvReac Severe urinary Verified 09/18/23 14:02 retention fosphenytoin AdvReac Severe Seizures Verified 09/18/23 14:02 Latex, Natural Rubber AdvReac Mild Rash Verified 09/18/23 14:02 Review of Systems Review of Systems ROS Unobtainable: All systems reviewed & are unremarkable except as noted in HPI and below Patient History Medical History Cervical radiculopathy 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) 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 Hypoxia Sinus tachycardia RBBB (right bundle branch block) Tobacco abuse Psychogenic nonepileptic seizure DM type 2 (diabetes mellitus, type 2) Alcoholism DVT (deep venous thrombosis) Narcotic habituation, continuous Pulmonary embolism Morbid obesity Asthma Essential hypertension LYLA (obstructive sleep apnea) Acetaminophen overdose of undetermined intent (12/2015) Suicide attempt Intraoperative cardiac arrest during non-cardiac surgery (11/2013) Ovarian cyst Plantar fasciitis 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 Cubital tunnel syndrome Status post laminectomy (12/14/15) Gastroesophageal reflux disease without esophagitis (03/02/15) Fibromyalgia (03/02/15) Tylenol overdose Obstipation Urinary retention Surgical History S/P lumbar spinal fusion H/O: hysterectomy Hx of toe surgery (05/16/20) History of carpal tunnel repair (~10/30/14) History of laminectomy (~09/2016) History of laminectomy History of colonoscopy History of esophagogastroduodenoscopy (EGD) History of lumbar spinal fusion (12/22/18) S/P epidural steroid injection (11/2013) Status post dilation and curettage (2008) Family History Grandfather Diabetes mellitus Family/Other Pancreatic cancer Social History household members: spouse Smoking Status: Former smoker alcohol intake: former eating out: 1-3 times/week Type(s) of exercise: normal ROM and activity and sedentary lifestyle Smoking Status: Former smoker tobacco type: cigarettes alcohol intake frequency: other Substance Use Type: does not use Exam Initial Vital Signs Initial Vital Signs: Vital Signs Temperature 97.3 F L 09/18/23 14:26 Pulse Rate 113 H 09/18/23 14:26 Respiratory Rate 16 09/18/23 14:26 Blood Pressure 153/85 H 09/18/23 14:26 Pulse Oximetry 96 09/18/23 14:26 Oxygen Delivery Method Room Air 09/18/23 14:26 Const General: comfortable and No ill appearing HENMT Head: normal to inspection and normocephalic Resp Effort & Inspection: normal respiratory effort Auscultation: clear to auscultation bilaterally Cardio Rate: tachycardic Rhythm: regular rhythm Neuro Sensory Exam: no sensory deficits noted Extrem Other: Swelling to the right lower extremity that is nonpitting. Some tenderness to palpation along the anterior lateral and posterior aspect of the right calf. No findings consistent with cellulitis. Course Orders Ordered: ED Orders 09/18/23 14:44 EKG-12 Lead Stat 09/18/23 14:51 US periph venous low extrem rt Stat 09/18/23 15:45 Complete Blood Count AUTO DIFF Stat Comprehensive Metabolic Panel Stat Lipase Stat Magnesium Stat PTT Partial Thromboplastin Aldo Stat Prothrombin Time INR Stat Troponin & CK Cardiac Panel Stat Discontinued Medications Aspirin (Aspirin 81 Mg Chew Tab) 324 mg PO NOW ONE Stop: 09/18/23 14:32 Last Admin: 09/18/23 15:54 Dose: Not Given Documented By: SPF Vital Signs Vital signs: Vital Signs - 8 hr 09/18/23 14:26 09/18/23 14:36 09/18/23 14:36 Temperature 97.3 F L Pulse Rate 113 H 111 H Respiratory Rate 16 Blood Pressure 153/85 H 138/86 Pulse Oximetry 96 96 Oxygen Delivery Method Room Air 09/18/23 15:00 09/18/23 15:30 Temperature Pulse Rate 103 H 106 H Respiratory Rate 23 21 Blood Pressure Pulse Oximetry 95 95 Oxygen Delivery Method Room Air Room Air MDM - Extremity (Nontraumatic) Lab Data 09/18/23 15:45 09/18/23 15:45 Labs: Lab Results 09/18/23 Range/Units 15:45 WBC 7.9 (4.5-11.0) X10^3/uL RBC 4.58 (4.0-5.2) X10^6/uL Hgb 13.0 (12.0-16.0) g/dL Hct 39.6 (36-46) % MCV 86.5 (80-100) fL MCH 28.4 (26-34) PG MCHC 32.8 (30-36) % RDW 14.1 (11.6-14.8) % Plt Count 241 (150-400) X10^3/uL Neut % (Auto) 74.2 (50-75) % Lymph % (Auto) 17.4 L (25-40) % Merrick % (Auto) 6.7 (3-14) % Eos % (Auto) 1.5 L (2-4) % Baso % (Auto) 0.2 (0-2) % Neut # (Auto) 5900 (7780-0600) /uL Lymph # (Auto) 1400 (9569-5633) /uL Merrick # (Auto) 500 (0-900) /uL Eos # (Auto) 100 (0-450) /uL Baso # (Auto) 0 (0-100) /uL PT 11.3 (9.4-12.5) SECONDS INR 1.0 (0.9-1.3) APTT 38 H (25.1-36.5) SECONDS Sodium 140 (137-145) mmol/L Potassium 3.6 (3.4-5.1) mmol/L Chloride 104 (98-107) mmol/L Carbon Dioxide 30 (22-32) mmol/L BUN 8 (7-17) mg/dL Creatinine 0.44 L (0.52-1.04) mg/dL Estimated GFR > 60 (>60) mL/min BUN/Creatinine Ratio 18.2 (6-22) Glucose 110 H (70-100) mg/dL Calcium 9.3 (8.4-10.2) mg/dL Magnesium 2.3 (1.6-2.3) mg/dL Total Bilirubin 0.4 (0.2-1.3) mg/dL AST 26 (14-36) IU/L ALT 31 (<35) IU/L Alkaline Phosphatase 69 (38-126) U/L Total Creatine Kinase 128 (30-135) U/L Troponin I < 0.012 (0.01-0.034) ng/mL Total Protein 8.1 (6.3-8.2) g/dL Albumin 4.6 (3.5-5.0) g/dL Globulin 3.5 (1.7-4.1) g/dL Albumin/Globulin Ratio 1.3 (1.0-2.8) Lipase 72 (23-300) U/L Imaging Data US - DVT: Radiologist's Impression: PROCEDURE: US [facility] VENOUS LOW EXTREM RT INDICATIONS: EDEMA TECHNIQUE: Real-time imaging, as well as color and pulse Doppler interrogation, were performed of the lower extremity deep veins from the inguinal ligament to the popliteal fossa, with documentation of the visualized calf veins. COMPARISON: [facility] VENOUS LOW EXTREM RT, 03/01/2022, 20:30. [facility], [facility] VENOUS LOW EXTREM RT, 03/01/2020, 22:34. FINDINGS: The common femoral, femoral, popliteal, and the visualized calf veins are normally compressible, and free of intraluminal thrombus. Color and pulse Doppler demonstrate normal phasic intraluminal flow. There is normal augmentation response to distal compression maneuver. IMPRESSION: No findings of lower extremity deep venous thrombosis. ECG Data Interpretation: Sinus tachycardia Ventricular rate 108 Normal axis Normal QRS LVH No ST T wave changes MDM Narrative Medical decision making narrative: Patient is tachycardic but she states that she normally runs between 105 and 115 and her heart rate since she has had a pulmonary embolism. The right lower extremity swelling shows no signs of DVT. Also have low suspicion that this is cellulitis. She denies any trauma. She was on furosemide. She was on 40 mg twice a day. Will have her increase this to 60 mg in the morning and 40 mg night. We also discussed keeping her leg elevated and also use compression stockings. No indication for admission hospital. She was not clinically in heart failure. She was given return precautions. She expressed understanding and agreement. Discharge Plan Departure Patient Disposition: Home Clinical Impression: Peripheral edema Instructions: DI for Peripheral Edema-Unilateral Activity Restrictions/Additional Instructions: Try to keep your leg elevated. You can increase your furosemide to 60 mg in the morning and 40 mg at night. Continue the rest of your medications as directed. Contact your primary doctor for follow-up. Return to the emergency department for new symptoms. Prescriptions: No Action Jardiance 10 mg tablet 10 mg PO DAILY Qty: 30 3RF insulin lispro 100 unit/mL insulin pen 5 unit SUBCUT TID Qty: 15 3RF metoprolol succinate 25 mg tablet extended release 24 hr 50 mg PO BID ferrous sulfate 325 mg (65 mg iron) tablet 325 mg PO DAILY docusate sodium [Col-Rite] 250 mg capsule 250 mg PO BID vitamin B complex Tablet 1 tab PO DAILY furosemide 40 mg tablet 40 mg PO BID Qty: 180 3RF Patient Comments: 60mg BID metformin 500 mg tablet 1,000 mg PO BID Qty: 360 3RF levothyroxine 25 mcg tablet 25 mcg PO DAILY Qty: 90 3RF doxepin 100 mg capsule 200 mg PO BEDTIME Qty: 60 5RF aripiprazole 30 mg tablet 30 mg PO BEDTIME Qty: 30 5RF Rx Instructions: Take one 30mg tablet by mouth daily levalbuterol tartrate 45 mcg/actuation HFA aerosol inhaler 1 puff inhalation Q4-6H PRN (Reason: shortness of breath or wheezing) Qty: 15 2RF magnesium oxide 400 mg (241.3 mg magnesium) tablet 400 mg PO DAILY Qty: 30 0RF (DME) glucose monitor See Rx Instructions .Route .MEDSUPPLY Qty: 1 0RF Rx Instructions: To test blood glucose daily (DME) glucose test strips See Rx Instructions .Route .MEDSUPPLY Qty: 100 3RF Rx Instructions: To test blood glucose daily (DME) lancets See Rx Instructions .Route .MEDSUPPLY Qty: 100 3RF Rx Instructions: to test blood glucose daily omeprazole 20 mg capsule,delayed release(DR/EC) 20 mg PO BID Qty: 180 0RF meclizine 25 mg tablet See Rx Instructions .ROUTE .COMPLEX Qty: 90 5RF Dose Instruction: TAKE 2 TABLETS BY MOUTH DAILY NEEDED FOR DIZZINESS OR VERTIGO Rx Instructions: TAKE up to 3 TABLETS BY MOUTH DAILY FOR DIZZINESS OR VERTIGO budesonide-formoterol [Symbicort] 160-4.5 mcg/actuation HFA aerosol inhaler 2 puff inhalation BID Qty: 10.2 3RF spironolactone 25 mg tablet 12.5 mg PO DAILY Qty: 45 3RF Atrovent HFA 17 mcg/actuation HFA aerosol inhaler 1 puff PO Q8H Qty: 12.9 0RF (DME) freestyle chris 3 glucose monitor See Rx Instructions .Route .MEDSUPPLY Qty: 1 0RF Rx Instructions: As directed (DME) freestyle chris 3 reader See Rx Instructions .Route .MEDSUPPLY Qty: 1 0RF Rx Instructions: As directed Levemir FlexPen 100 unit/mL (3 mL) insulin pen 35 unit SUBCUT BEDTIME Qty: 15 1RF (DME) freestyle chris 3 sensor See Rx Instructions .Route .MEDSUPPLY Qty: 6 3RF Rx Instructions: As directed, change sensor every 14 days pregabalin 300 mg capsule 300 mg PO BID Qty: 180 3RF Rx Instructions: take 1 capsule by mouth twice a day terazosin 2 mg capsule 2 mg PO QPM Qty: 30 0RF Xarelto 20 mg tablet 20 mg PO DAILY Qty: 90 0RF cyclobenzaprine 10 mg tablet 10 mg PO 3XD PRN (Reason: for muscle spasm) Qty: 90 0RF (DME) pen needle, diabetic [BD Monika 2nd Gen Pen Needle] 32 gauge x 5/32 needle See Rx Instructions .ROUTE .COMPLEX Qty: 100 3RF Dose Instruction: USE WITH LEVEMIR DAILY DIRECTED Rx Instructions: USE WITH LEVEMIR DAILY DIRECTED Mounjaro 2.5 mg/0.5 mL pen injector 2.5 mg SUBCUT QWEEK Qty: 2 0RF ascorbic acid (vitamin C) 500 mg tablet 500 mg PO DAILY potassium gluconate 595 mg (99 mg) tablet 595 mg PO DAILY (DME) True Metrix Glucose Test Strip Strip See Rx Instructions .ROUTE DAILY Qty: 10 Rx Instructions: As directed (DME) lancets [Micro Thin Lancets] 33 gauge misc See Rx Instructions .ROUTE DAILY Qty: 100 Rx Instructions: As directed ketoconazole 2 % shampoo topical triamcinolone acetonide 0.1 % cream 1 applic topical ketoconazole 2 % cream 1 applic topical DAILY acetaminophen [Tylenol Extra Strength] 500 mg tablet 1,000 mg PO Q6H PRN Referrals: Alejandra Lynch MD [Primary Care Provider] - Stand Alone Forms: Patient Portal/API
--- NOTE | 2023-09-18 14:51 | DI.US.S_ITS ---
PROCEDURE: US [facility] VENOUS LOW EXTREM RT INDICATIONS: EDEMA TECHNIQUE: Real-time imaging, as well as color and pulse Doppler interrogation, were performed of the lower extremity deep veins from the inguinal ligament to the popliteal fossa, with documentation of the visualized calf veins. COMPARISON: [facility], [facility] VENOUS LOW EXTREM RT, 03/01/2022, 20:30. [facility], [facility] VENOUS LOW EXTREM RT, 03/01/2020, 22:34. FINDINGS: The common femoral, femoral, popliteal, and the visualized calf veins are normally compressible, and free of intraluminal thrombus. Color and pulse Doppler demonstrate normal phasic intraluminal flow. There is normal augmentation response to distal compression maneuver. IMPRESSION: No findings of lower extremity deep venous thrombosis. Dictated by: Beto Apple M.D. on 09/18/2023 at 16:02 Approved by: Beto Apple M.D. on 09/18/2023 at 16:02
[2023-09-18 15:50] LABS: Add Manual Diff / Slide Review NO; Basophils Absolute Auto 0 /uL (0-100); Basophils Percent Auto 0.2 % (0-2); Eosinophils Absolute Auto 100 /uL (0-450); Eosinophils Percent Auto 1.5 % (2-4); Hematocrit 39.6 % (36-46); Lymphocytes Absolute Auto 1400 /uL (1100-4500); Lymphocytes Percent Auto 17.4 % (25-40); Mean Corpuscular HGB Conc 32.8 % (30-36); Mean Corpuscular Hemoglobin 28.4 PG (26-34); Mean Corpuscular Volume 86.5 fL (80-100); Monocytes Absolute Auto 500 /uL (0-900); Monocytes Percent Auto 6.7 % (3-14); Neutrophils Absolute Auto 5900 /uL (1500-7000); Neutrophils Percent Auto 74.2 % (50-75); Platelet Count 241 X10^3/uL (150-400); Red Blood Cell Count 4.58 X10^6/uL (4.0-5.2); Red Cell Distribution Width 14.1 % (11.6-14.8); White Blood Cell Count 7.9 X10^3/uL (4.5-11.0)
[2023-09-18 15:58] LABS: Prothrombin Time 11.3 SECONDS (9.4-12.5)
[2023-09-18 16:01] LABS: PTT Partial Thromboplastin Tim 38 SECONDS (25.1-36.5)
[2023-09-18 16:03] LABS: Alanine Aminotransferase 31 IU/L (<35); Albumin 4.6 g/dL (3.5-5.0); Albumin Globulin Ratio 1.3 (1.0-2.8); Alkaline Phosphatase 69 U/L (38-126); Aspartate Aminotransferase 26 IU/L (14-36); BUN Creatinine Ratio 18.2 (6-22); Bilirubin Total 0.4 mg/dL (0.2-1.3); Blood Urea Nitrogen 8 mg/dL (7-17); Calcium 9.3 mg/dL (8.4-10.2); Carbon Dioxide 30 mmol/L (22-32); Chloride 104 mmol/L (98-107); Creatine Kinase 128 U/L (30-135); Estimated Glomerular Filt Rate > 60 mL/min (>60); Globulin 3.5 g/dL (1.7-4.1); Glucose 110 mg/dL (70-100); HEMOLYSIS < 15 (0-50); Lipase 72 U/L (23-300); Magnesium 2.3 mg/dL (1.6-2.3); Potassium 3.6 mmol/L (3.4-5.1); Sodium 140 mmol/L (137-145); Total Protein 8.1 g/dL (6.3-8.2)
[2023-09-18 16:14] LABS: Troponin I < 0.012 ng/mL (0.01-0.034)
== END 2023-09-18 17:06 | disposition home or self-care (01) ==
PROVIDERS: Emergency Provider Emergency Medicine; Family Provider Family Medicine; PCP Family Medicine
DX: R60.0 Localized edema (principal)
CPT/HCPCS: 36415; 80053; 82550; 83690; 83735; 84484; 85025; 85610; 85730; 93005; 93971; 99283; 99284

== ENCOUNTER → 2023-09-29 15:11 | Outpatient (CLI) | payer OTHER, MEDICARE, SELFPAY ==
[2023-07-09 21:11] VITALS: BMI 50.6
[2023-09-29 16:57] LABS: Appearance Urine UA SL CLOUDY; Bilirubin Urine UA NEGATIVE (NEGATIVE); Color Urine UA YELLOW; Glucose Urine UA 3+ g/dL (Negative); Ketones Urine UA 1+ (NEGATIVE); Leukocyte Esterase Urine UA NEGATIVE (NEGATIVE); Nitrite Urine UA NEGATIVE (Negative); Occult Blood Urine UA NEGATIVE (Negative); Protein Urine UA NEGATIVE (Negative); Urobilinogen Urine UA 0.2 E.U./dL (0.2)
[2023-09-29 16:58] LABS: pH Urine UA 7.5 (4.5-8.0)
[2023-09-29 17:04] LABS: Bacteria Urine Moderate (10-30); Culture Indicated Urine Cult Not Indicated; RBC Urine 0-1/HPF (0-5/HPF); Squamous Epithelial Cell Urine >30 /HPF (0-5/HPF); Urine Volume 10mL (spun); WBC Urine 0-1/HPF (0-5/HPF)
== END ==
LOC: LAB 15:14
PROVIDERS: Family Provider Family Medicine; PCP Family Medicine; Referring Provider Family Medicine; Visit Provider Family Medicine
DX: R30.0 Dysuria (principal)
CPT/HCPCS: 81001

== ENCOUNTER 2023-10-08 15:33 | Emergency (ER) | payer OTHER, MEDICARE, SELFPAY ==
[2023-07-09 21:11] VITALS: BMI 50.6
[2023-10-08] VITALS (21 sets, daily range): BP systolic 118–157; BP diastolic 59–98; PULSE 105–122; RESP 16–27; TEMP 36.6; O2SAT 92–98; BMI 48.7
--- NOTE | 2023-10-08 15:41 | DI.RAD.S_ITS ---
PROCEDURE: XR CHEST 1V INDICATIONS: chest pain TECHNIQUE: One view of the chest was acquired. COMPARISON: [facility], CR, XR CHEST 1V, 07/12/2023, 18:58. FINDINGS: Surgical changes and devices: None. Lungs and pleura: Minimal appearance of bibasilar coarsening particularly within the right base. Mediastinum: Mediastinal contours appear normal. Heart size is normal. Bones and chest wall: No suspicious bony lesions. Overlying soft tissues appear unremarkable. IMPRESSION: Bibasilar coarsening particularly on the right. Developing atelectasis/pneumonia cannot be excluded. Dictated by: Jenny Abreu M.D. on 10/08/2023 at 17:06 Approved by: Jenny Abreu M.D. on 10/08/2023 at 17:07
[2023-10-08 16:19] LABS: Add Manual Diff / Slide Review NO; Basophils Absolute Auto 100 /uL (0-100); Basophils Percent Auto 0.8 % (0-2); Eosinophils Absolute Auto 100 /uL (0-450); Eosinophils Percent Auto 1.5 % (2-4); Lymphocytes Absolute Auto 1800 /uL (1100-4500); Lymphocytes Percent Auto 27.6 % (25-40); Mean Corpuscular HGB Conc 33.4 % (30-36); Mean Corpuscular Hemoglobin 28.8 PG (26-34); Mean Corpuscular Volume 86.3 fL (80-100); Monocytes Absolute Auto 600 /uL (0-900); Monocytes Percent Auto 8.5 % (3-14); Neutrophils Absolute Auto 4000 /uL (1500-7000); Neutrophils Percent Auto 61.6 % (50-75); Platelet Count 286 X10^3/uL (150-400); Red Blood Cell Count 4.86 X10^6/uL (4.0-5.2); Red Cell Distribution Width 14.5 % (11.6-14.8); White Blood Cell Count 6.5 X10^3/uL (4.5-11.0)
[2023-10-08 16:24] LABS: Prothrombin Time 11.4 SECONDS (9.4-12.5)
[2023-10-08 16:27] LABS: PTT Partial Thromboplastin Tim 37 SECONDS (25.1-36.5)
[2023-10-08 16:41] LABS: Alanine Aminotransferase 26 IU/L (<35); Albumin 4.9 g/dL (3.5-5.0); Albumin Globulin Ratio 1.3 (1.0-2.8); Alkaline Phosphatase 72 U/L (38-126); Aspartate Aminotransferase 26 IU/L (14-36); BUN Creatinine Ratio 14.5 (6-22); Bilirubin Total 0.4 mg/dL (0.2-1.3); Blood Urea Nitrogen 9 mg/dL (7-17); Calcium 9.7 mg/dL (8.4-10.2); Carbon Dioxide 33 mmol/L (22-32); Chloride 98 mmol/L (98-107); Creatine Kinase 191 U/L (30-135); Estimated Glomerular Filt Rate > 60 mL/min (>60); Globulin 3.7 g/dL (1.7-4.1); Glucose 114 mg/dL (70-100); HEMOLYSIS 15 (0-50); Lipase 62 U/L (23-300); Magnesium 2.3 mg/dL (1.6-2.3); Potassium 3.9 mmol/L (3.4-5.1); Sodium 140 mmol/L (137-145); Total Protein 8.6 g/dL (6.3-8.2)
[2023-10-08 16:51] LABS: Troponin I 0.012 ng/mL (0.01-0.034)
--- NOTE | 2023-10-08 18:45 | ED.GENADULT ---
HPI - General Adult General Chief complaint: Chest Pain Stated complaint: chest px, sent by [place] Time Seen by Provider: 10/08/23 18:10 Source: patient Mode of arrival: Ambulatory History of Present Illness HPI narrative: 42-year-old female with history of prior blood clots to legs and lungs, taking Xarelto, has been having stabbing sharp pain to anterior chest intermittently since noon today, onset while doing dishes at home. She has not missed any doses of her Xarelto. She has not had any new/recent leg pain or swelling symptoms. She did not have any presyncope or syncope symptoms. She did have some associated nausea, took an oral Zofran, that has resolved. No associated diaphoresis. No weakness to face hand leg. She had no radiation of the pain to her back arm jaw neck. She has not tried anything to try and make the pain any better Related Data Home Medications Medication Instructions Recorded Confirmed ascorbic acid (vitamin C) 500 mg 500 mg PO DAILY 07/28/22 09/18/23 tablet potassium gluconate 595 mg (99 mg) 595 mg PO DAILY 07/28/22 09/18/23 tablet metoprolol succinate 25 mg 50 mg PO BID 10/10/22 09/18/23 tablet,extended release 24 hr docusate sodium 250 mg capsule 250 mg PO BID 12/03/22 09/18/23 (Col-Rite) ferrous sulfate 325 mg (65 mg 325 mg PO DAILY 12/03/22 09/18/23 iron) tablet vitamin B complex 1 tab PO DAILY 12/03/22 09/18/23 acetaminophen 500 mg tablet 1,000 mg PO Q6H PRN 08/05/23 09/18/23 (Tylenol Extra Strength) blood sugar diagnostic (True #10 ea 08/05/23 09/18/23 Metrix Glucose Test Strip) ketoconazole 2 % shampoo topical 08/05/23 09/18/23 ketoconazole 2 % topical cream 1 applic topical DAILY 08/05/23 09/18/23 lancets 33 gauge (Micro Thin #100 ea 08/05/23 09/18/23 Lancets) triamcinolone acetonide 0.1 % 1 applic topical 08/05/23 09/18/23 topical cream Previous Rx's Medication Instructions Recorded levalbuterol tartrate 45 1 puff inhalation Q4-6H PRN 01/22/22 mcg/actuation aerosol inhaler shortness of breath or wheezing #15 grams magnesium oxide 400 mg (241.3 mg 400 mg PO DAILY #30 tabs 07/18/22 magnesium) tablet glucose monitor #1 ea 12/01/22 glucose test strips #100 ea 12/01/22 lancets #100 ea 12/01/22 furosemide 40 mg tablet 40 mg PO BID #180 tabs 12/03/22 levothyroxine 25 mcg tablet 25 mcg PO DAILY #90 tabs 12/03/22 metformin 500 mg tablet 1,000 mg (2 x 500 mg) PO BID #360 12/03/22 tabs omeprazole 20 mg capsule,delayed 20 mg PO BID #180 caps 12/30/22 release meclizine 25 mg tablet See Rx Instructions .Route 04/24/23 .COMPLEX #90 tabs aripiprazole 30 mg tablet 30 mg PO BEDTIME #30 tabs 06/15/23 budesonide-formoterol HFA 160 2 puff inhalation BID #10.2 grams 06/22/23 mcg-4.5 mcg/actuation aerosol inhaler (Symbicort) spironolactone 25 mg tablet 12.5 mg (1/2 x 25 mg) PO DAILY #45 06/22/23 tabs ipratropium bromide 17 1 puff PO Q8H #12.9 grams 07/06/23 mcg/actuation HFA aerosol inhaler (Atrovent HFA) empagliflozin 10 mg tablet 10 mg PO DAILY #30 tabs 07/24/23 (Jardiance) insulin lispro 100 unit/mL 5 unit (0.05 mL) SUBCUT TID #15 mL 07/24/23 subcutaneous pen insulin detemir U-100 100 unit/mL 35 unit (0.35 mL) SUBCUT BEDTIME 08/10/23 (3 mL) subcutaneous pen (Levemir #15 mL FlexPen) pregabalin 300 mg capsule 300 mg PO BID #180 caps 08/17/23 rivaroxaban 20 mg tablet (Xarelto) 20 mg PO DAILY #90 tabs 08/27/23 cyclobenzaprine 10 mg tablet 10 mg PO 3XD PRN for muscle spasm 08/31/23 #90 tabs doxepin 100 mg capsule 200 mg (2 x 100 mg) PO BEDTIME #60 09/10/23 caps pen needle, diabetic 32 gauge x #100 ea 09/14/23/32 (BD Monika 2nd Gen Pen Needle) tirzepatide 2.5 mg/0.5 mL 2.5 mg (0.5 mL) SUBCUT QWEEK #2 mL 09/17/23 subcutaneous pen injector (Sonnyunjose enriquero) blood-glucose meter,continuous #1 ea 09/25/23 (Dexcom G6 Criminal Research Specialist) blood-glucose sensor (Dexcom G6 #3 ea 09/25/23 Sensor device) blood-glucose transmitter (Dexcom #1 ea 09/25/23 G6 Transmitter device) terazosin 2 mg capsule 2 mg PO QPM #30 caps 09/28/23 Allergies Allergy/AdvReac Type Severity Reaction Status Date / Time risperidone [From Risperdal] Allergy Verified 09/18/23 14:02 carisoprodol [CARISOPRODOL] AdvReac Severe urinary Verified 09/18/23 14:02 retention fosphenytoin AdvReac Severe Seizures Verified 09/18/23 14:02 Latex, Natural Rubber AdvReac Mild Rash Verified 09/18/23 14:02 Review of Systems Review of Systems ROS Unobtainable: All systems reviewed & are unremarkable except as noted in HPI and below Patient History Medical History Cervical radiculopathy 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) 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 Hypoxia Sinus tachycardia RBBB (right bundle branch block) Tobacco abuse Psychogenic nonepileptic seizure DM type 2 (diabetes mellitus, type 2) Alcoholism DVT (deep venous thrombosis) Narcotic habituation, continuous Pulmonary embolism Morbid obesity Asthma Essential hypertension LYLA (obstructive sleep apnea) Acetaminophen overdose of undetermined intent (12/2015) Suicide attempt Intraoperative cardiac arrest during non-cardiac surgery (11/2013) Ovarian cyst Plantar fasciitis 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 Cubital tunnel syndrome Status post laminectomy (12/14/15) Gastroesophageal reflux disease without esophagitis (03/02/15) Fibromyalgia (03/02/15) Tylenol overdose Obstipation Urinary retention Surgical History S/P lumbar spinal fusion H/O: hysterectomy Hx of toe surgery (05/16/20) History of carpal tunnel repair (~10/30/14) History of laminectomy (~09/2016) History of laminectomy History of colonoscopy History of esophagogastroduodenoscopy (EGD) History of lumbar spinal fusion (12/22/18) S/P epidural steroid injection (11/2013) Status post dilation and curettage (2008) Family History Grandfather Diabetes mellitus Family/Other Pancreatic cancer Social History household members: spouse Smoking Status: Former smoker alcohol intake: former eating out: 1-3 times/week Type(s) of exercise: normal ROM and activity and sedentary lifestyle Smoking Status: Former smoker tobacco type: cigarettes alcohol intake frequency: other Substance Use Type: does not use Exam Narrative Exam Narrative: GENERAL: Well-developed patient, in mild distress. HEAD: Atraumatic. Normocephalic. EYES: Pupils equal round and reactive. Extraocular motions intact. No scleral icterus. No injection or drainage. ENT: Nose without bleeding, purulent drainage. Throat without erythema, tonsillar hypertrophy or exudate. Airway patent. NECK: Trachea midline. Non tender CARDIOVASCULAR: Regular rate and rhythm without murmurs, gallops, or rubs. RESPIRATORY: Clear to auscultation. Breath sounds equal bilaterally. No wheezes, rales, or rhonchi. GASTROINTESTINAL: Obese abdomen soft, non-tender, nondistended. EXTREMITIES: No edema or joint tenderness. BACK: Nontender without deformity or crepitance. No flank tenderness. NEURO: AOx3. SKIN: No rash or erythema of visible areas Initial Vital Signs Initial Vital Signs: Vital Signs Pulse Oximetry 92 10/08/23 15:38 Course Orders Ordered: Discontinued Medications Albuterol (Albuterol Hfa Prepack) 1 box MISC DIRECTED ONE Stop: 10/09/23 02:27 Last Admin: 10/09/23 02:35 Dose: 1 box Documented By: Azithromycin (Azithromycin 250 Mg Tablet) 500 mg PO NOW ONE Stop: 10/08/23 19:17 Last Admin: 10/08/23 20:31 Dose: 500 mg Documented By: MARLENE Ceftriaxone Sodium 1,000 mg/ (Sodium Chloride) 100 mls @ 200 mls/hr IV NOW ONE Stop: 10/08/23 19:17 Last Infusion: 10/08/23 20:10 Dose: Infused Documented By: Admin: 10/08/23 19:42 Dose: 200 mls/hr Documented By: MARLENE Sodium Chloride (Normal Saline 0.9%) 1,000 mls @ 1,000 mls/hr IV BOLUS ONE Stop: 10/08/23 21:17 Last Infusion: 10/08/23 21:34 Dose: Infused Documented By: Admin: 10/08/23 20:32 Dose: 1,000 mls/hr Documented By: MARLENE Vital Signs Vital signs: Vital Signs - 8 hr 10/09/23 00:30 10/09/23 01:00 10/09/23 01:00 Pulse Rate 108 H 105 H Respiratory Rate 18 18 Blood Pressure 128/78 Pulse Oximetry 95 94 10/09/23 01:30 10/09/23 02:00 Pulse Rate 106 H 106 H Respiratory Rate 12 19 Blood Pressure Pulse Oximetry 93 93 Medical Decision Making Lab Data 10/08/23 16:00 10/08/23 16:00 Labs: Lab Results 10/08/23 10/08/23 10/08/23 Range/Units 16:00 21:21 21:57 WBC 6.5 (4.5-11.0) X10^3/uL RBC 4.86 (4.0-5.2) X10^6/uL Hgb 14.0 (12.0-16.0) g/dL Hct 42.0 (36-46) % MCV 86.3 (80-100) fL MCH 28.8 (26-34) PG MCHC 33.4 (30-36) % RDW 14.5 (11.6-14.8) % Plt Count 286 (150-400) X10^3/uL Neut % (Auto) 61.6 (50-75) % Lymph % (Auto) 27.6 (25-40) % [place] % (Auto) 8.5 (3-14) % Eos % (Auto) 1.5 L (2-4) % Baso % (Auto) 0.8 (0-2) % Neut # (Auto) 4000 (2404-0813) /uL Lymph # (Auto) 1800 (9368-5142) /uL [place] # (Auto) 600 (0-900) /uL Eos # (Auto) 100 (0-450) /uL Baso # (Auto) 100 (0-100) /uL PT 11.4 (9.4-12.5) SECONDS INR 1.0 (0.9-1.3) APTT 37 H (25.1-36.5) SECONDS Sodium 140 (137-145) mmol/L Potassium 3.9 (3.4-5.1) mmol/L Chloride 98 (98-107) mmol/L Carbon Dioxide 33 H (22-32) mmol/L BUN 9 (7-17) mg/dL Creatinine 0.62 (0.52-1.04) mg/dL Estimated GFR > 60 (>60) mL/min BUN/Creatinine Ratio 14.5 (6-22) Glucose 114 H (70-100) mg/dL Lactate 2.6 H 0.6 L (0.7-2.1) mmol/L Calcium 9.7 (8.4-10.2) mg/dL Magnesium 2.3 (1.6-2.3) mg/dL Total Bilirubin 0.4 (0.2-1.3) mg/dL AST 26 (14-36) IU/L ALT 26 (<35) IU/L Alkaline Phosphatase 72 (38-126) U/L Total Creatine Kinase 191 H (30-135) U/L Troponin I 0.012 < 0.012 (0.01-0.034) ng/mL Total Protein 8.6 H (6.3-8.2) g/dL Albumin 4.9 (3.5-5.0) g/dL Globulin 3.7 (1.7-4.1) g/dL Albumin/Globulin Ratio 1.3 (1.0-2.8) Lipase 62 (23-300) U/L Point of Care Testing Glucose POC 107 Urine Dip Bedside Urine Glucose 1000 mg/dl Bedside Urine Bilirubin - Negative Bedside Urine Ketone - Negative Urine Specific [place] 1.010 Bedside Urine Occult Blood - Negative Bedside Urine pH 6.0 Bedside Urine Protein - Negative Bedside Urine Urobilinogen - Negative Bedside Urine Nitrite - Negative Bedside Urine Leukocytes - Negative Esterase Point of care testing: Point of Care Testing Glucose POC 107 Urine Dip Bedside Urine Glucose 1000 mg/dl Bedside Urine Bilirubin - Negative Bedside Urine Ketone - Negative Urine Specific [place] 1.010 Bedside Urine Occult Blood - Negative Bedside Urine pH 6.0 Bedside Urine Protein - Negative Bedside Urine Urobilinogen - Negative Bedside Urine Nitrite - Negative Bedside Urine Leukocytes - Negative Esterase Imaging Data Chest x-ray: Radiologist's Impression: [address] [address] XRay Report Signed Patient: Nuvia Alvarado MR#: [id number] : 1980 Acct:[id number] Age/Sex: 42 / F Date of Service: 10/08/23 Loc: ED Accession Number: [id number] Procedure: XR chest 1V Ordering Provider: Kristen Martinez D.O. PROCEDURE: XR CHEST 1V INDICATIONS: chest pain TECHNIQUE: One view of the chest was acquired. COMPARISON: [facility] , XR CHEST 1V, 07/12/2023, 18:58. FINDINGS: Surgical changes and devices: None. Lungs and pleura: Minimal appearance of bibasilar coarsening particularly within the right base. Mediastinum: Mediastinal contours appear normal. Heart size is normal. Bones and chest wall: No suspicious bony lesions. Overlying soft tissues appear unremarkable. IMPRESSION: Bibasilar coarsening particularly on the right. Developing atelectasis/pneumonia cannot be excluded. Dictated by: Jenny Abreu M.D. on 10/08/2023 at 17:06 Approved by: Jenny Abreu M.D. on 10/08/2023 at 17:07 CT scan - chest: Radiologist's Impression: [address] [address] [address] Scan Report Signed Patient: Nuvia Alvarado MR#: [id number] : 1980 Acct:[id number] Age/Sex: 42 / F Date of Service: 10/08/23 Loc: ED Accession Number: [id number] Procedure: CT angio chest PE protocol Ordering Provider: Dong Hill MD PROCEDURE: CT ANGIO CHEST PE PROTOCOL INDICATIONS: chest pain, hx PEs, takes xarelto TECHNIQUE: After the administration of intravenous contrast, 2 mm thick sections acquired from the pulmonary apices to the posterior costophrenic angles. 3-dimensional maximum intensity projection (MIP) coronal and sagittal reformats were then acquired through the thorax. For radiation dose reduction, the following was used: automated exposure control, adjustment of mA and/or kV according to patient size. COMPARISON: [facility], CT, CT ANGIO CHEST PE PROTOCOL, 07/12/2023, 19:19. FINDINGS: Image quality: Diagnostic. Pulmonary arteries: Pulmonary arteries are normal in size, and demonstrate no intraluminal filling defects to suggest central pulmonary embolism. Lower Neck: No enlarged lymph nodes. Thyroid: No thyroid nodules which require sonographic follow up, per consensus guidelines. Axillae: No enlarged lymph nodes. Chest Wall: Unremarkable. Bones: Unremarkable. Lungs and Pleura: No pneumothorax or pleural effusions. No consolidation or suspicious nodules. Heart: Heart size is normal. No pericardial effusion. Thoracic Vessels: No aortic aneurysm. Mediastinum and Kristine: No enlarged lymph nodes. Esophagus: No wall thickening. No hiatal hernia. Upper Abdomen: Visualized upper abdomen solid organs and bowel loops appear normal. IMPRESSION: No pulmonary embolus. No acute cardiopulmonary process. Dictated by: Jai Mustafa M.D. on 10/08/2023 at 21:53 Approved by: Jai Mustafa M.D. on 10/08/2023 at 21:55 ECG Data Attestation: I personally reviewed and interpreted this ECG as follows: Interpretation: Sinus tachycardia with rate of 111, right bundle-branch block pattern noted, no notching Sgarbossa criteria changes for acute [place] obvious. History of reported right bundle branch block noted. [facility] Narrative Medical decision making narrative: 42-year-old female with history of obesity and obstructive sleep apnea, prior pulmonary embolus and DVT, previously on warfarin, now taking Xarelto anticoagulation, having intermittent chest discomfort today. Known left bundle branch block, sinus tachycardia rate 110 on triage, right bundle branch block pattern noted. Troponin negative. Chest x-ray suggestive possible infiltrate, possible pneumonia, initial IV antibiotics initiated. However given history of PE/DVT, could consider CT angiogram chest imaging. GFR/creatinine favorable. CTA chest ordered. Additional Information: CTA showed no acute changes, no pulmonary embolus, also no atelectasis or infiltrate. No further antibiotics for now. Encouraged to use her inhaler 2 puffs 4 times daily for regular basis for the next few days. Interval repeat troponin also negative. Has follow up appointment with her regular doctor in this Thursday. Encouraged to keep that appointment. Return precautions discussed, improved, home with family Critical Care Time Critical Care Time Critical Care Time: Yes Total Critical Care Time: 35 Attestation: The high probability of a clinically significant, sudden or life threatening deterioration of the [cardiopulmonary] system(s) required my full and direct attention, intervention and personal management. The aggregate critical care time was [35] minutes. This time is in addition to time spent performing reported procedures but includes the following: [x] Data Review and interpretation [x] Patient assessment and monitoring of vital signs [x] Documentation [x] Medication orders and management Discharge Plan Departure Patient Disposition: Home Clinical Impression: Atypical chest pain, Acute dyspnea, Atelectasis Instructions: DI for Atypical Chest Pain Activity Restrictions/Additional Instructions: History of prior blood clots to lungs, taking chronic anticoagulation medication. Recent shortness of breath and some chest discomfort. Screening EKG showed right bundle branch block. Serial blood test not suggestive of heart attack. Chest x-ray was suspicious for [id number]-left bibasilar infiltrates versus atelectasis (local collapsed lungs) per radiology report. IV antibiotics were initiated case of bilateral lower lobe pneumonia. Because of blood clots to lungs, CT angiogram of the chest was obtained, no blood clots confirmed, also there was no notation of any infiltrate suggestive of pneumonia, nor mentioned by CT imaging of any atelectasis. Continue use of your home inhaler for now. Follow up with your regular doctor on Thursday as scheduled. Continue your blood thinner medications as prescribed. Return to the emergency department for any change worsening symptoms or any concerns prior Prescriptions: No Action Jardiance 10 mg tablet 10 mg PO DAILY Qty: 30 3RF insulin lispro 100 unit/mL insulin pen 5 unit SUBCUT TID Qty: 15 3RF metoprolol succinate 25 mg tablet extended release 24 hr 50 mg PO BID ferrous sulfate 325 mg (65 mg iron) tablet 325 mg PO DAILY docusate sodium [Col-Rite] 250 mg capsule 250 mg PO BID vitamin B complex Tablet 1 tab PO DAILY furosemide 40 mg tablet 40 mg PO BID Qty: 180 3RF Patient Comments: 60mg BID metformin 500 mg tablet 1,000 mg PO BID Qty: 360 3RF levothyroxine 25 mcg tablet 25 mcg PO DAILY Qty: 90 3RF doxepin 100 mg capsule 200 mg PO BEDTIME Qty: 60 5RF aripiprazole 30 mg tablet 30 mg PO BEDTIME Qty: 30 5RF Rx Instructions: Take one 30mg tablet by mouth daily levalbuterol tartrate 45 mcg/actuation HFA aerosol inhaler 1 puff inhalation Q4-6H PRN (Reason: shortness of breath or wheezing) Qty: 15 2RF magnesium oxide 400 mg (241.3 mg magnesium) tablet 400 mg PO DAILY Qty: 30 0RF (DME) glucose monitor See Rx Instructions .Route .MEDSUPPLY Qty: 1 0RF Rx Instructions: To test blood glucose daily (DME) glucose test strips See Rx Instructions .Route .MEDSUPPLY Qty: 100 3RF Rx Instructions: To test blood glucose daily (DME) lancets See Rx Instructions .Route .MEDSUPPLY Qty: 100 3RF Rx Instructions: to test blood glucose daily omeprazole 20 mg capsule,delayed release(DR/EC) 20 mg PO BID Qty: 180 0RF meclizine 25 mg tablet See Rx Instructions .ROUTE .COMPLEX Qty: 90 5RF Dose Instruction: TAKE 2 TABLETS BY MOUTH DAILY NEEDED FOR DIZZINESS OR VERTIGO Rx Instructions: TAKE up to 3 TABLETS BY MOUTH DAILY FOR DIZZINESS OR VERTIGO budesonide-formoterol [Symbicort] 160-4.5 mcg/actuation HFA aerosol inhaler 2 puff inhalation BID Qty: 10.2 3RF spironolactone 25 mg tablet 12.5 mg PO DAILY Qty: 45 3RF Atrovent HFA 17 mcg/actuation HFA aerosol inhaler 1 puff PO Q8H Qty: 12.9 0RF Levemir FlexPen 100 unit/mL (3 mL) insulin pen 35 unit SUBCUT BEDTIME Qty: 15 1RF pregabalin 300 mg capsule 300 mg PO BID Qty: 180 3RF Rx Instructions: take 1 capsule by mouth twice a day Xarelto 20 mg tablet 20 mg PO DAILY Qty: 90 0RF cyclobenzaprine 10 mg tablet 10 mg PO 3XD PRN (Reason: for muscle spasm) Qty: 90 0RF (DME) pen needle, diabetic [BD Monika 2nd Gen Pen Needle] 32 gauge x 5/32 needle See Rx Instructions .ROUTE .COMPLEX Qty: 100 3RF Dose Instruction: USE WITH LEVEMIR DAILY DIRECTED Rx Instructions: USE WITH LEVEMIR DAILY DIRECTED Mounjaro 2.5 mg/0.5 mL pen injector 2.5 mg SUBCUT QWEEK Qty: 2 0RF (DME) Dexcom G6 Criminal Research Specialist Misc See Rx Instructions .Route Qty: 1 0RF Rx Instructions: As directed (DME) Dexcom G6 Sensor Device See Rx Instructions .Route Qty: 3 0RF Rx Instructions: As directed (DME) Dexcom G6 Transmitter Device See Rx Instructions .Route Qty: 1 0RF Rx Instructions: As directed terazosin 2 mg capsule 2 mg PO QPM Qty: 30 0RF ascorbic acid (vitamin C) 500 mg tablet 500 mg PO DAILY potassium gluconate 595 mg (99 mg) tablet 595 mg PO DAILY (DME) True Metrix Glucose Test Strip Strip See Rx Instructions .ROUTE DAILY Qty: 10 Rx Instructions: As directed (DME) lancets [Micro Thin Lancets] 33 gauge misc See Rx Instructions .ROUTE DAILY Qty: 100 Rx Instructions: As directed ketoconazole 2 % shampoo topical triamcinolone acetonide 0.1 % cream 1 applic topical ketoconazole 2 % cream 1 applic topical DAILY acetaminophen [Tylenol Extra Strength] 500 mg tablet 1,000 mg PO Q6H PRN Referrals: Alejandra Lynch MD [Primary Care Provider] - Stand Alone Forms: Patient Portal/API
--- NOTE | 2023-10-08 19:13 | DI.CT.S_ITS ---
PROCEDURE: CT ANGIO CHEST PE PROTOCOL INDICATIONS: chest pain, hx PEs, takes xarelto TECHNIQUE: After the administration of intravenous contrast, 2 mm thick sections acquired from the pulmonary apices to the posterior costophrenic angles. 3-dimensional maximum intensity projection (MIP) coronal and sagittal reformats were then acquired through the thorax. For radiation dose reduction, the following was used: automated exposure control, adjustment of mA and/or kV according to patient size. COMPARISON: [facility], CT, CT ANGIO CHEST PE PROTOCOL, 07/12/2023, 19:19. FINDINGS: Image quality: Diagnostic. Pulmonary arteries: Pulmonary arteries are normal in size, and demonstrate no intraluminal filling defects to suggest central pulmonary embolism. Lower Neck: No enlarged lymph nodes. Thyroid: No thyroid nodules which require sonographic follow up, per consensus guidelines. Axillae: No enlarged lymph nodes. Chest Wall: Unremarkable. Bones: Unremarkable. Lungs and Pleura: No pneumothorax or pleural effusions. No consolidation or suspicious nodules. Heart: Heart size is normal. No pericardial effusion. Thoracic Vessels: No aortic aneurysm. Mediastinum and Kristine: No enlarged lymph nodes. Esophagus: No wall thickening. No hiatal hernia. Upper Abdomen: Visualized upper abdomen solid organs and bowel loops appear normal. IMPRESSION: No pulmonary embolus. No acute cardiopulmonary process. Dictated by: Jai Mustafa M.D. on 10/08/2023 at 21:53 Approved by: Jai Mustafa M.D. on 10/08/2023 at 21:55
[2023-10-08 19:40] LABS: Lactate (Lactic Acid) 2.6 mmol/L (0.7-2.1)
[2023-10-08] MEDS: cefTRIAXone 1,000 MG in SODIUM CHLORIDE 0.9% 100 ML 200 MG IV (19:42)
[2023-10-08] MEDS: AZITHROMYCIN 250 MG TABLET 500 MG PO (20:31)
[2023-10-08] MEDS: SODIUM CHLORIDE 0.9% 1,000 ML 1000 ML IV (20:32)
[2023-10-08 21:00] LABS: Reflexed Lactate in 2 Hours Y
[2023-10-08 21:45] LABS: Lactate 2HR (Lactic Acid Rflx) 0.6 mmol/L (0.7-2.1)
[2023-10-08 23:29] LABS: Troponin I < 0.012 ng/mL (0.01-0.034)
[2023-10-09] VITALS: PULSE 111; RESP 13; O2SAT 95
[2023-10-09 00:30] VITALS: PULSE 108; RESP 18; O2SAT 95
[2023-10-09 01:00] VITALS: BP 128/78; PULSE 105; RESP 18; O2SAT 94
[2023-10-09 01:30] VITALS: PULSE 106; RESP 12; O2SAT 93
[2023-10-09 02:00] VITALS: PULSE 106; RESP 19; O2SAT 93
[2023-10-09] MEDS: ALBUTEROL HFA PREPACK 1 BOX MISC (02:35)
== END 2023-10-09 02:40 | disposition home or self-care (01) ==
PROVIDERS: Emergency Medicine; Emergency Provider Emergency Medicine; Family Provider Family Medicine; PCP Family Medicine
DX: R07.89 Other chest pain (principal); J98.11 Atelectasis; R06.00 Dyspnea, unspecified; I45.10 Unspecified right bundle-branch block; R00.0 Tachycardia, unspecified; Z79.01 Long term (current) use of anticoagulants; Z79.899 Other long term (current) drug therapy
CPT/HCPCS: 36415; 71045; 71275; 80053; 81003; 82550; 82962; 83605; 83690; 83735; 84484; 85025; 85610; 85730; 87040; 93005; 93010; 96361; 96365; 99284; J0696; Q9967

== ENCOUNTER → 2023-10-14 15:12 | Outpatient (CLI) | payer OTHER, MEDICARE, SELFPAY ==
[2023-07-09 21:11] VITALS: BMI 50.6
--- NOTE | 2023-10-14 15:15 | DI.RAD.S_ITS ---
PROCEDURE: XR LUMBAR SPINE 2-3V INDICATIONS: eval TECHNIQUE: Pain views of the lumbar spine were acquired. COMPARISON: [facility], , L-SPINE 2-3 VIEWS, 10/21/2013, 12:21. FINDINGS: Bones: 5 [id number] vertebrae are present. There is normal bony alignment. No vertebral body compression fractures. No suspicious bony lesions. Partial lumbarization of the S1 vertebral body. L5-S1 discectomy and fusion with posterior jason and screw instrumentation. No evidence of hardware failure or loosening. Soft tissues: Overlying bowel gas pattern is normal. No suspicious soft tissue calcifications. IMPRESSION: L5-S1 instrumented discectomy and fusion. No evidence of hardware failure loosening. Transitional anatomy Approved by: Yuri Mccoy M.D. on 10/14/2023 at 19:35
== END ==
PROVIDERS: Family Provider Family Medicine; PCP Family Medicine; Referring Provider Family Medicine; Visit Provider Family Medicine
DX: M54.50 Low back pain, unspecified (principal); Z98.1 Arthrodesis status
CPT/HCPCS: 72100

== ENCOUNTER → 2023-10-22 15:37 | Outpatient (CLI) | payer OTHER, MEDICARE, SELFPAY ==
[2023-07-09 21:11] VITALS: BMI 50.6
--- NOTE | 2023-10-22 17:01 | DIAB.FU ---
Follow-up Diabetes Education Assessment Name: Nuvia Alvarado Date: 10/22/23 Time: 230-3p Dx: Type II Diabetes 10/22/23 230-3p Nuvia presents today for DM follow-up virtually using Portal. Recent PCP visit. In clinic hgA1c reported at 6.6% Lost 6# with Keith (over 1 month). PCP increased dose to 5mg. Nuvia states she was hoping she would be able to get off insulin, but today we discussed this potential in the future with continued weight loss and increased GLP1 RA. 290# last PCP visit 09/2023 Reduced cold brew intake. Increased water intake. Endorses smaller portions, especially at night. Choosing more sf options, ie dessert. Has reduced ETOH intake some, but still difficult. Question: will I always have DM, even with lower hgA1c. Reduced eating out of boredom, but will stress eat sometimes. Use to smoke when stressed. Today she had to put down her cat, he was sickhas not eaten due to stress over this. Has been moving more, cleaning when feeling stressed. Physical Activity: walking more outside. Continues with PT. Still using walker, but less at home now. Self-Monitoring Blood Glucose: Switched to Dexcom from Biolase due to insurance coverage. Tried to download Clarity thomas to review recent trends. Had difficulty doing this and could not find TIR stats. Difficulties with Dexcom sensors, ie false lows. Does like the warning of lows with Dexcom. States BG with finger sticks vs Dexcom have been a little off. Reports FBG around 140s Diabetes Medications: 1000mg Metformin BID 10mg Jardiance 5mg Tirzepetide per week 40u Detemir HS 3-5u TID Lispro Pertinent Labs: hgA1c: 7% 06/2022 7.9% 09/2022 8% 04/2023 6.6% 09/2023 in clinic per report Past Medical History: (This Medical Record has been edited. 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) Elias Respironics CPAP announced 11/05/20) Morbid obesity Narcotic habituation, continuous Nocturnal hypoxemia on supplemental O2 @ 2-3L/min Obstipation LYLA (obstructive sleep apnea) On overnight home O2 due to hypoxic respiratory failure from noncompliance with CPAP Ovarian cyst Plantar fasciitis Psychogenic nonepileptic seizure Pulmonary embolism 02/14/19, [facility] at [facility] RBBB (right bundle branch block) Sinus tachycardia Status post laminectomy (12/14/15) Suicide attempt 09/01 (uncertain if that is 08/2009 or 09/01/YYYY) Tobacco abuse Tylenol overdose Urinary retention Intervention: This participant was very receptive. Provided appropriate educational handouts. Discussed the following topics: Recent reported blood sugar results and trends Diabetes diagnosis and why diabetes does not go away but can be well managed to help with overall health Stress eating and stress management Impact on weight loss on BG Physical activity plan and impact on blood sugars Created SMART goals for patient self-care and success. Goals: Count corn as a carb- met Refill FSL rx- d/c Limit cold brew to 2c coffee or less- met Reduce ETOH to 2-3 servings in a sitting max- in progress Implement stress management techniques (ie journal, walk, call a friend) to avoid stres eating- new Follow-up: NOAM ASTORGA follow-up in 6 months. Seems diabetes is being well managed. Nuvia would like to f/u in 6 months for a check-in at that time. Roma Srinivasan RDN, [facility] Certified [employer] Controls Engineer P: [phone] Thank you for this referral
== END ==
PROVIDERS: Family Provider Family Medicine; PCP Family Medicine; Referring Provider Family Medicine
DX: E11.9 Type 2 diabetes mellitus without complications (principal); Z79.84 Long term (current) use of oral hypoglycemic drugs; Z79.4 Long term (current) use of insulin; Z79.85 Long-term (current) use of injectable non-insulin antidiabetic drugs
CPT/HCPCS: G0108

== ENCOUNTER 2023-11-10 13:58 | Outpatient (CLI) | payer OTHER, MEDICARE, SELFPAY ==
[2023-07-09 21:11] VITALS: BMI 50.6
[2023-11-10] VITALS (9 sets, daily range): BP systolic 127–157; BP diastolic 67–104; PULSE 105–122; RESP 12–22; TEMP 36.6; O2SAT 97–100
--- NOTE | 2023-11-10 15:00 | DI.RAD.S_ITS ---
PROCEDURE: PAIN L/SI FACET INJ/BLK 1STL INDICATIONS: Left L5 and S1 MBB LA COMPARISON: [facility], CR, XR LUMBAR SPINE 2-3V, 10/14/2023, 15:28. FINDINGS: Fluoroscopic spot filming was performed to verify placement of spinal needles at the L5-S1 level(s), as labeled on the films. Appropriate location(s) of the needle tip(s) was confirmed by injection of iodinated contrast. IMPRESSION: Needle and contrast placement overlying L5-S1. Dictated by: Jenny Abreu M.D. on 11/10/2023 at 17:07 Approved by: Jenny Aberu M.D. on 11/10/2023 at 17:07
[2023-11-10] MEDS: MIDAZOLAM 2 MG/2 ML VIAL IV (15:49)
[2023-11-10] MEDS: iopamidoL 15 ML VIAL 3 ML INJ (16:01)
[2023-11-10] MEDS: BUPIVACAINE 0.5% (PF) 10 ML VIAL 2 ML INJ (16:01)
--- NOTE | 2023-11-10 16:10 | PM.PROC.IR.1 ---
Date/Time/Diagnoses Date of procedure: 11/10/23 Time of procedure: 16:11 Pre-procedure diagnosis: 1. FACET ARTHROPATHY Post-procedure diagnosis: same Procedure Notes Procedure: 1. Left L5 and S1 MB BLOCKS LA Indications: Nuvia is referred by Dr. Lynch for treatment of Left Axial LBP. Physician: Ezekiel Nava Total Fluoroscopy time (seconds): 12 Total sedation minutes: 16 Complications: none Procedure in detail & Post-procedure care: DESCRIPTION OF PROCEDURE Fluoroscopically guided, contrast-controlled left L5 and S1 medial branch blocks with 0.5cc of 0.5% Marcaine. Following review of allergy and review of potential side effects and complications, including, but not necessarily limited to, infection, allergic reaction, local tissue breakdown, nerve injury, paralysis, stroke and possible , the patient indicated that the patient understood and agreed to proceed. An informed consent document was signed by the patient, witnessed by a nurse, and placed in the patient's chart. After review of previous anaesthesic history and IV conscious sedation the patient was deemed safe to proceed with today?s procedure with IV conscious sedation as ASA class II designation. Safety time-out was performed to confirm patient ID, procedure to be performed and site of procedure. IV sedation was accomplished with a combination of 2mg of Versed was administered by the RN after DO order, titrated to patient comfort during the course of the procedure while the patient remained responsive to all verbal commands. In the prone position, following sterile prep and drape of the lumbar region, the left L5 and S1 anatomical location of the medial branch of the dorsal ramus was identified fluoroscopically. Subsequently an anesthetic skin wheal using 1% lidocaine solution was initiated at each of the anatomical spots. Subsequently then a 22-gauge 3.5-inch spinal needle was atraumatically introduced and advanced under fluoroscopic guidance at each of the corresponding sites at the left L5 and S1 MB. After negative aspiration, 0.2cc of Isovue 200 was injected, confirming placement without vascular or intrathecal uptake. Subsequently then 0.5cc of 0.5% Marcaine solution was injected at each of the corresponding sites at the left L5 and S1 medial branch locations. The patient tolerated the procedure well without signs or symptoms of complications. The patient tolerated the procedure well without signs or symptoms of complications prior to transfer to the recovery area continued monitoring without incident. Post-procedure, the patient was monitored initiating provocative activities to measure the amount of relief from block of the facetogenic pain. The patient reported a VAS of 8 prior to the procedure and a post-procedure VAS of 7. It has been a pleasure to assist in the diagnostic and therapeutic care of your patient. POST OP INSTRUCTIONS The patient was provided with a Pain Log to complete over the next several hours and subsequent days prior to the patient's follow up with the ordering physician. If the patient has plasma processing technician relief to the solution applied, then they may be a candidate for medial branch rhizotomy. The patient is aware, was provided, once again, with a Pain Log and will follow up with the referring physician for review and clinical correlation.
--- NOTE | 2023-11-11 15:02 | PC.NURSE ---
[id number] Patient post-procedural call made. Patient states that she is doing ok, but she did not receive relief from the injections yesterday. Patient notified that I will have Sonia contact her about her questions regarding not receiving relief from her injections and also about sending her chart notes to Dr. Reese in [place].
== END 2023-11-10 16:21 | disposition home or self-care (01) ==
LOC: RAD 14:01
PROVIDERS: Family Provider Family Medicine; PCP Family Medicine; Referring Provider Physical Medicine & Rehabilitation; Visit Provider Physical Medicine & Rehabilitation
DX: M47.816 Spondylosis without myelopathy or radiculopathy, lumbar region (principal); M47.817 Spondylosis without myelopathy or radiculopathy, lumbosacral region
CPT/HCPCS: 64493; 99152; J2250

== ENCOUNTER 2023-11-21 17:28 | Emergency (ER) | payer OTHER, MEDICARE, SELFPAY ==
[2023-07-09 21:11] VITALS: BMI 50.6
[2023-11-21 17:42] VITALS: BP 147/85; PULSE 118; RESP 17; TEMP 36.8; O2SAT 97; BMI 48.2
--- NOTE | 2023-11-21 19:35 | ED_ITS ---
HPI - Abdominal Pain General Chief Complaint: Abdominal Pain Stated Complaint: Constipation t-5 Time Seen by Provider: 11/21/23 19:29 Source: patient and family Mode of arrival: Ambulatory History of Present Illness HPI narrative: 43-year-old female with history of hysterectomy, no other abdominal pelvic surgeries, prior lower GI bleeding episode 2 years ago for which colonoscopy showed no obvious source, had persistent diarrhea last year prompting 2nd colonoscopy which showed diverticulosis but no other abnormalities per patient, now having 4-5 days of generalized crampy abdominal pain, loose stools on Thursday a couple of episodes, no black or red stools, no mucoid stools, passing gas but no bowel movement for the last few days. She did not take any [id number] antidiarrheal medications. Worsening pain today. Nausea without emesis. She denies pain on urination. No flank pain. She denies vaginal bleeding or vaginal discharge. No injury trauma new activities. No shortness of breath or cough. No fevers or chills. Related Data Home Medications Medication Instructions Recorded Confirmed ascorbic acid (vitamin C) 500 mg 500 mg PO DAILY 07/28/22 10/28/23 tablet potassium gluconate 595 mg (99 mg) 595 mg PO DAILY 07/28/22 10/28/23 tablet metoprolol succinate 25 mg 50 mg PO BID 10/10/22 10/28/23 tablet,extended release 24 hr docusate sodium 250 mg capsule 250 mg PO BID 12/03/22 10/28/23 (Col-Rite) ferrous sulfate 325 mg (65 mg 325 mg PO DAILY 12/03/22 10/28/23 iron) tablet vitamin B complex 1 tab PO DAILY 12/03/22 10/28/23 acetaminophen 500 mg tablet 1,000 mg PO Q6H PRN 08/05/23 10/28/23 (Tylenol Extra Strength) blood sugar diagnostic (True #10 ea 08/05/23 10/28/23 Metrix Glucose Test Strip) ketoconazole 2 % shampoo topical 08/05/23 10/28/23 ketoconazole 2 % topical cream 1 applic topical DAILY 08/05/23 10/28/23 lancets 33 gauge (Micro Thin #100 ea 08/05/23 10/28/23 Lancets) triamcinolone acetonide 0.1 % 1 applic topical 08/05/23 10/28/23 topical cream calcipotriene 0.005 % topical cream 1 applic topical BID 10/28/23 10/28/23 Previous Rx's Medication Instructions Recorded levalbuterol tartrate 45 1 puff inhalation Q4-6H PRN 01/22/22 mcg/actuation aerosol inhaler shortness of breath or wheezing #15 grams magnesium oxide 400 mg (241.3 mg 400 mg PO DAILY #30 tabs 07/18/22 magnesium) tablet glucose monitor #1 ea 12/01/22 glucose test strips #100 ea 12/01/22 lancets #100 ea 12/01/22 levothyroxine 25 mcg tablet 25 mcg PO DAILY #90 tabs 12/03/22 metformin 500 mg tablet 1,000 mg (2 x 500 mg) PO BID #360 12/03/22 tabs meclizine 25 mg tablet See Rx Instructions .Route 04/24/23 .COMPLEX #90 tabs aripiprazole 30 mg tablet 30 mg PO BEDTIME #30 tabs 06/15/23 spironolactone 25 mg tablet 12.5 mg (1/2 x 25 mg) PO DAILY #45 06/22/23 tabs empagliflozin 10 mg tablet 10 mg PO DAILY #30 tabs 07/24/23 (Jardiance) insulin lispro 100 unit/mL 5 unit (0.05 mL) SUBCUT TID #15 mL 07/24/23 subcutaneous pen insulin detemir U-100 100 unit/mL 35 unit (0.35 mL) SUBCUT BEDTIME 08/10/23 (3 mL) subcutaneous pen (Levemir #15 mL FlexPen) pregabalin 300 mg capsule 300 mg PO BID #180 caps 08/17/23 rivaroxaban 20 mg tablet (Xarelto) 20 mg PO DAILY #90 tabs 08/27/23 pen needle, diabetic 32 gauge x #100 ea 09/14/23 (BD Monika 2nd Gen Pen Needle) blood-glucose meter,continuous #1 ea 09/25/23 (Dexcom G6 Rn Documentation Specialist) furosemide 40 mg tablet See Rx Instructions PO BID #225 10/14/23 tabs scopolamine base 1 mg over 3 days 1 patch transdermal Q3D PRN 10/14/23 transdermal patch dizziness #24 ea cyclobenzaprine 10 mg tablet 10 mg PO 3XD PRN for muscle spasm 10/20/23 #90 tabs ipratropium bromide 17 1 puff PO Q8H #12.9 grams 10/20/23 mcg/actuation HFA aerosol inhaler (Atrovent HFA) terazosin 2 mg capsule 2 mg PO QPM #90 caps 10/23/23 blood-glucose sensor (Dexcom G6 #3 ea 10/27/23 Sensor device) blood-glucose transmitter (Dexcom #1 ea 11/02/23 G6 Transmitter device) diazepam 10 mg tablet (Valium) 10 mg PO .COMPLEX #7 tabs 11/04/23 omeprazole 20 mg capsule,delayed 20 mg PO BID #180 caps 11/04/23 release doxepin 50 mg capsule 50 mg PO BEDTIME #10 caps 11/10/23 budesonide-formoterol HFA 160 2 puff PO BID #10.2 grams 11/13/23 mcg-4.5 mcg/actuation aerosol inhaler (Symbicort) fluconazole 150 mg tablet 150 mg PO Q3D 2 doses #2 tabs 11/13/23 tirzepatide 2.5 mg/0.5 mL 5 mg SUBCUT QWEEK #4 mL 11/18/23 subcutaneous pen injector (Keith) lactulose 20 gram/30 mL oral 20 g (30 mL) PO BID #1,200 mL 11/22/23 solution Allergies Allergy/AdvReac Type Severity Reaction Status Date / Time carisoprodol [CARISOPRODOL] AdvReac Severe urinary Verified 11/21/23 17:42 retention fosphenytoin AdvReac Severe Seizures Verified 11/21/23 17:42 Latex, Natural Rubber AdvReac Mild Rash Verified 11/21/23 17:42 risperidone [From Risperdal] AdvReac urinary Verified 11/21/23 17:42 retention Review of Systems Review of Systems Narrative: per HPI Patient History Medical History (Updated 11/21/23 @ 22:39 by Dong Hill MD) Facet arthropathy, lumbar Cervical radiculopathy 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 hypoxemia 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) 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 Hypoxia Sinus tachycardia RBBB (right bundle branch block) Tobacco abuse Psychogenic nonepileptic seizure DM type 2 (diabetes mellitus, type 2) Alcoholism DVT (deep venous thrombosis) Narcotic habituation, continuous Pulmonary embolism Morbid obesity Asthma Essential hypertension LYLA (obstructive sleep apnea) Acetaminophen overdose of undetermined intent (12/2015) Suicide attempt Intraoperative cardiac arrest during non-cardiac surgery (11/2013) Ovarian cyst Plantar fasciitis 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 Cubital tunnel syndrome Status post laminectomy (12/14/15) Gastroesophageal reflux disease without esophagitis (03/02/15) Fibromyalgia (03/02/15) Tylenol overdose Obstipation Urinary retention Surgical History (System 10/22/23 @ 15:38 by Ritesh Robison) S/P lumbar spinal fusion H/O: hysterectomy Hx of toe surgery (05/16/20) History of carpal tunnel repair (~10/30/14) History of laminectomy (~09/2016) History of laminectomy History of colonoscopy History of esophagogastroduodenoscopy (EGD) History of lumbar spinal fusion (12/22/18) S/P epidural steroid injection (11/2013) Status post dilation and curettage (2008) Family History (System 10/22/23 @ 15:38 by Ritesh Robison) Grandfather Diabetes mellitus Family/Other Pancreatic cancer Social History (System 10/22/23 @ 15:38 by Ritesh Robison) household members: spouse Smoking Status: Former smoker alcohol intake: former eating out: 1-3 times/week Type(s) of exercise: normal ROM and activity and sedentary lifestyle Smoking Status: Former smoker tobacco type: cigarettes alcohol intake frequency: other Substance Use Type: does not use Exam Narrative Exam Narrative: GENERAL: Well-developed patient, in mild distress. HEAD: Atraumatic. Normocephalic. EYES: Pupils equal round and reactive. Extraocular motions intact. No scleral icterus. No injection or drainage. ENT: Nose without bleeding, purulent drainage. Throat without erythema, tonsillar hypertrophy or exudate. Airway patent. NECK: Trachea midline. Non tender CARDIOVASCULAR: Regular rate and rhythm without murmurs, gallops, or rubs. RESPIRATORY: Clear to auscultation. Breath sounds equal bilaterally. No wheezes, rales, or rhonchi. GASTROINTESTINAL: Obese, generalized mild tenderness, no obvious ventral hernia, no skin redness or rash or vesicles, no guarding or rebound tenderness, bowel tones normal. EXTREMITIES: No edema or joint tenderness. BACK: Nontender without deformity or crepitance. No flank tenderness. NEURO: AOx3. SKIN: No rash or erythema of visible areas Initial Vital Signs Initial Vital Signs: Vital Signs Temperature 98.2 F 11/21/23 17:42 Pulse Rate 118 H 11/21/23 17:42 Respiratory Rate 17 11/21/23 17:42 Blood Pressure 147/85 H 11/21/23 17:42 Pulse Oximetry 97 11/21/23 17:42 Oxygen Delivery Method Room Air 11/21/23 17:42 Course Orders Ordered: ED Orders 11/21/23 20:10 Ammonia (NH3) Stat Complete Blood Count AUTO DIFF Stat Comprehensive Metabolic Panel Stat HCG Quantitative /Beta subunit Stat Lipase Stat 11/21/23 20:32 Urine Microscopic Stat 11/21/23 21:18 CT abdomen pelvis w con Stat Discontinued Medications Hydromorphone HCl (Hydromorphone 0.5 Mg Inj) 0.5 mg IV NOW ONE Stop: 11/21/23 21:52 Last Admin: 11/21/23 21:59 Dose: 0.5 mg Documented By: JASPER Lactulose (Lactulose 20 Gm/30 Ml Solution) 20 gm PO NOW ONE Stop: 11/21/23 22:37 Last Admin: 11/21/23 23:10 Dose: 20 gm Documented By: JASPER Sodium Biphosphate/Sodium Phosphate (Fleets Enema) 1 each GA NOW ONE Stop: 11/21/23 22:37 Last Admin: 11/21/23 23:10 Dose: 1 each Documented By: JASPER Vital Signs Vital signs: Vital Signs - 8 hr 11/22/23 00:40 Temperature 97.6 F Pulse Rate 105 H Respiratory Rate 20 Blood Pressure 139/85 Pulse Oximetry 96 Oxygen Delivery Method Room Air MDM - Abdominal Pain Lab Data Attestation: I reviewed the patient's lab results. 11/21/23 20:10 11/21/23 20:10 Labs: Lab Results 11/21/23 11/21/23 Range/Units 20:10 20:32 WBC 7.0 (4.5-11.0) X10^3/uL RBC 4.81 (4.0-5.2) X10^6/uL Hgb 13.4 (12.0-16.0) g/dL Hct 40.8 (36-46) % MCV 84.9 (80-100) fL MCH 27.8 (26-34) PG MCHC 32.7 (30-36) % RDW 14.0 (11.6-14.8) % Plt Count 285 (150-400) X10^3/uL Neut % (Auto) 64.9 (50-75) % Lymph % (Auto) 27.3 (25-40) % [place] % (Auto) 6.1 (3-14) % Eos % (Auto) 1.0 L (2-4) % Baso % (Auto) 0.7 (0-2) % Neut # (Auto) 4500 (8095-6756) /uL Lymph # (Auto) 1900 (2068-8253) /uL [place] # (Auto) 400 (0-900) /uL Eos # (Auto) 100 (0-450) /uL Baso # (Auto) 0 (0-100) /uL Sodium 139 (137-145) mmol/L Potassium 3.8 (3.4-5.1) mmol/L Chloride 102 (98-107) mmol/L Carbon Dioxide 31 (22-32) mmol/L BUN 10 (7-17) mg/dL Creatinine 0.57 (0.52-1.04) mg/dL Estimated GFR > 60 (>60) mL/min BUN/Creatinine Ratio 17.5 (6-22) Glucose 124 H (70-100) mg/dL Calcium 9.6 (8.4-10.2) mg/dL Total Bilirubin 0.4 (0.2-1.3) mg/dL AST 26 (14-36) IU/L ALT 22 (<35) IU/L Alkaline Phosphatase 72 (38-126) U/L Ammonia < 9 L (9-30) umol/L Total Protein 8.5 H (6.3-8.2) g/dL Albumin 4.6 (3.5-5.0) g/dL Globulin 3.9 (1.7-4.1) g/dL Albumin/Globulin Ratio 1.2 (1.0-2.8) Lipase 90 (23-300) U/L HCG, Quant < 2.39 mIU/mL Urine RBC 0-1/hpf (0-5/HPF) Urine WBC None seen (0-5/HPF) Ur Squamous Epith Cells 1-5 /hpf D (0-5/HPF) Urine Bacteria None seen (None) Ur Culture Indicated? Cult not indicated Vol Urine Centrifuged 10ml (spun) Point of care testing: Urine Dip Bedside Urine Glucose 1000 mg/dl Bedside Urine Bilirubin - Negative Bedside Urine Ketone - Negative Urine Specific [place] 1.010 Bedside Urine Occult Blood - Negative Bedside Urine pH 7.5 Bedside Urine Protein +/- 15 Bedside Urine Urobilinogen - Negative Bedside Urine Nitrite - Negative Bedside Urine Leukocytes - Negative Esterase Imaging Data CT scan - abdomen/pelvis: Radiologist's Impression: [address] [address] [address] Scan Report Signed Patient: Nuvia Alvarado MR#: [id number] : 1980 Acct:[id number] Age/Sex: 43 / F Date of Service: 11/21/23 Loc: ED Accession Number: [id number] Procedure: CT abdomen pelvis w con Ordering Provider: Dong Hill MD PROCEDURE: CT ABDOMEN PELVIS W CON INDICATIONS: abd pain TECHNIQUE: After the administration of intravenous contrast, axial sections acquired from the lung bases to the pubic symphysis. Coronal and sagittal reformats were performed. For radiation dose reduction, the following was used: automated exposure control, adjustment of mA and/or kV according to patient size. COMPARISON: [facility], CT, CT ABDOMEN PELVIS W CON, 07/18/2022, 17:48. FINDINGS: Lower thorax: The lung bases are clear. Heart size normal. No hiatal hernia. Liver: The liver is diffusely decreased in attenuation without focal mass lesion. Biliary system: No calcified cholelithiasis or pericholecystic inflammation. No intra or extrahepatic bile duct dilatation. Pancreas: Unremarkable without mass or inflammation evident. Spleen: Normal in size and density. Adrenals: Normal morphology and density. Reproductive system: Unremarkable as visualized. Urinary system: Normal renal size and attenuation. No renal calculi, hydronephrosis, or solid mass present. Urinary bladder unremarkable. Gastrointestinal system: The bowel is unremarkable without evidence of bowel obstruction or inflammation. The stomach appears unremarkable. Multiple diverticula arise from the sigmoid colon without evidence of diverticulitis. Moderate fecal debris throughout the colon Appendix: Normal appendix identified. No evidence of appendicitis. Peritoneal spaces: No mesenteric or retroperitoneal adenopathy. No free air. No free fluid. Vasculature: The IVC, aorta and iliac vasculature are unremarkable. Abdominal wall: Abdominal wall intact without evidence of ventral or inguinal hernias. Musculoskeletal: Normal bone mineralization. No acute fractures. L4-5 instrumented interbody fusion IMPRESSION: Moderate fecal debris throughout the colon without obstruction. Diverticulosis without diverticulitis. Approved by: Yuri Mccoy M.D. on 11/21/2023 at 21:12 MDM Narrative Medical decision making narrative: 43-year-old female with abdominal pain, loose stool couple of days ago, now no stools for the last few days, diffuse tenderness. Afebrile, sirs screen negative. Labs unremarkable. HCG negative. Urinalysis negative. Patient prefers imaging when to options discussed, CT abdomen and pelvis ordered. CT abdomen shows moderate fecal load throughout, no obstructive changes, no acute changes, diverticulosis noted without evidence of diverticulitis GA Fleet's enema, p.o. lactulose dose Little response to treatment, mineral oil enema offered, declined. She would like to go home, and we will try further lactulose at home, prescription sent to her pharmacy. Home with family. Return precautions discussed Critical Care Time Critical Care Time Total Critical Care Time: 31 Attestation: The high probability of a clinically significant, sudden or life threatening deterioration of the [abdominal pelvic, genitourinary] system(s) required my full and direct attention, intervention and personal management. The aggregate critical care time was [31] minutes. This time is in addition to time spent performing reported procedures but includes the following: [x] Data Review and interpretation [x] Patient assessment and monitoring of vital signs [x] Documentation [x] Medication orders and management Discharge Plan Departure Patient Disposition: Home Clinical Impression: Abdominal pain, Constipation in female Activity Restrictions/Additional Instructions: Abdominal cramping, loose stool a few days ago, then no bowel movement since then, concern for constipation. Abdominal tenderness on exam. Screening labs were unremarkable. CT abdomen and pelvis showed significant stool in the colon, consistent with constipation, but no bowel obstruction changes. Trial of fleets enema little response. Oral lactulose laxative given. Offered further enemas, declined. Trial of lactulose at home for now. Recheck symptoms with your regular doctor on Thursday if symptoms persist. Recheck at this/nearest emergency department for any change worsening symptoms or any concerns prior Prescriptions: New lactulose 20 gram/30 mL solution 20 g PO BID MDD 10 doses only, if needed Qty: 1200 0RF No Action Jardiance 10 mg tablet 10 mg PO DAILY Qty: 30 3RF insulin lispro 100 unit/mL insulin pen 5 unit SUBCUT TID Qty: 15 3RF furosemide 40 mg tablet See Rx Instructions PO BID Qty: 225 3RF Patient Comments: 60mg BID Rx Instructions: orally twice a day; 60mg (1.5 tab) every morning and 40mg (1 tab) in the evening scopolamine base 1 mg over 3 days patch 3 day 1 patch transdermal Q3D PRN (Reason: dizziness) Qty: 24 3RF metoprolol succinate 25 mg tablet extended release 24 hr 50 mg PO BID ferrous sulfate 325 mg (65 mg iron) tablet 325 mg PO DAILY docusate sodium [Col-Rite] 250 mg capsule 250 mg PO BID vitamin B complex Tablet 1 tab PO DAILY metformin 500 mg tablet 1,000 mg PO BID Qty: 360 3RF levothyroxine 25 mcg tablet 25 mcg PO DAILY Qty: 90 3RF aripiprazole 30 mg tablet 30 mg PO BEDTIME Qty: 30 5RF Rx Instructions: Take one 30mg tablet by mouth daily levalbuterol tartrate 45 mcg/actuation HFA aerosol inhaler 1 puff inhalation Q4-6H PRN (Reason: shortness of breath or wheezing) Qty: 15 2RF magnesium oxide 400 mg (241.3 mg magnesium) tablet 400 mg PO DAILY Qty: 30 0RF (DME) glucose monitor See Rx Instructions .Route .MEDSUPPLY Qty: 1 0RF Rx Instructions: To test blood glucose daily (DME) glucose test strips See Rx Instructions .Route .MEDSUPPLY Qty: 100 3RF Rx Instructions: To test blood glucose daily (DME) lancets See Rx Instructions .Route .MEDSUPPLY Qty: 100 3RF Rx Instructions: to test blood glucose daily meclizine 25 mg tablet See Rx Instructions .ROUTE .COMPLEX Qty: 90 5RF Dose Instruction: TAKE 2 TABLETS BY MOUTH DAILY NEEDED FOR DIZZINESS OR VERTIGO Rx Instructions: TAKE up to 3 TABLETS BY MOUTH DAILY FOR DIZZINESS OR VERTIGO spironolactone 25 mg tablet 12.5 mg PO DAILY Qty: 45 3RF Levemir FlexPen 100 unit/mL (3 mL) insulin pen 35 unit SUBCUT BEDTIME Qty: 15 1RF pregabalin 300 mg capsule 300 mg PO BID Qty: 180 3RF Rx Instructions: take 1 capsule by mouth twice a day Xarelto 20 mg tablet 20 mg PO DAILY Qty: 90 0RF (DME) pen needle, diabetic [BD Monika 2nd Gen Pen Needle] 32 gauge x 5/32 needle See Rx Instructions .ROUTE .COMPLEX Qty: 100 3RF Dose Instruction: USE WITH LEVEMIR DAILY DIRECTED Rx Instructions: USE WITH LEVEMIR DAILY DIRECTED (DME) Dexcom G6 Rn Documentation Specialist Misc See Rx Instructions .Route Qty: 1 0RF Rx Instructions: As directed Atrovent HFA 17 mcg/actuation HFA aerosol inhaler 1 puff PO Q8H Qty: 12.9 0RF cyclobenzaprine 10 mg tablet 10 mg PO 3XD PRN (Reason: for muscle spasm) Qty: 90 0RF terazosin 2 mg capsule 2 mg PO QPM Qty: 90 0RF (DME) Dexcom G6 Sensor Device See Rx Instructions .ROUTE .COMPLEX Qty: 3 0RF Dose Instruction: USE DIRECTED. Rx Instructions: USE DIRECTED. (DME) Dexcom G6 Transmitter Device See Rx Instructions .ROUTE .COMPLEX Qty: 1 0RF Dose Instruction: USE DIRECTED. Rx Instructions: USE DIRECTED. omeprazole 20 mg capsule,delayed release(DR/EC) 20 mg PO BID Qty: 180 0RF diazepam [Valium] 10 mg tablet 10 mg PO .COMPLEX MDD 3 tabs Qty: 7 0RF Rx Instructions: 1 to 2 tabs 1hr prior to spinal procedure. May take an additional tab if steroid flare experienced the night after the procedure. doxepin 50 mg capsule 50 mg PO BEDTIME Qty: 10 0RF fluconazole 150 mg tablet 150 mg PO Q3D Qty: 2 0RF Rx Instructions: Take one tab. May repeat if symptoms persist after 3 days. budesonide-formoterol [Symbicort] 160-4.5 mcg/actuation HFA aerosol inhaler 2 puff PO BID Qty: 10.2 0RF Mounjaro 2.5 mg/0.5 mL pen injector 5 mg SUBCUT QWEEK Qty: 4 0RF ascorbic acid (vitamin C) 500 mg tablet 500 mg PO DAILY potassium gluconate 595 mg (99 mg) tablet 595 mg PO DAILY (DME) True Metrix Glucose Test Strip Strip See Rx Instructions .ROUTE DAILY Qty: 10 Rx Instructions: As directed (DME) lancets [Micro Thin Lancets] 33 gauge misc See Rx Instructions .ROUTE DAILY Qty: 100 Rx Instructions: As directed ketoconazole 2 % shampoo topical triamcinolone acetonide 0.1 % cream 1 applic topical ketoconazole 2 % cream 1 applic topical DAILY acetaminophen [Tylenol Extra Strength] 500 mg tablet 1,000 mg PO Q6H PRN calcipotriene 0.005 % cream 1 applic topical BID Referrals: Alejandra Lynch MD [Primary Care Provider] - Stand Alone Forms: Patient Portal/API
[2023-11-21 20:20] LABS: Add Manual Diff / Slide Review NO; Basophils Absolute Auto 0 /uL (0-100); Basophils Percent Auto 0.7 % (0-2); Eosinophils Absolute Auto 100 /uL (0-450); Hematocrit 40.8 % (36-46); Hemoglobin 13.4 g/dL (12.0-16.0); Lymphocytes Absolute Auto 1900 /uL (1100-4500); Lymphocytes Percent Auto 27.3 % (25-40); Mean Corpuscular HGB Conc 32.7 % (30-36); Mean Corpuscular Hemoglobin 27.8 PG (26-34); Mean Corpuscular Volume 84.9 fL (80-100); Monocytes Absolute Auto 400 /uL (0-900); Monocytes Percent Auto 6.1 % (3-14); Neutrophils Absolute Auto 4500 /uL (1500-7000); Neutrophils Percent Auto 64.9 % (50-75); Platelet Count 285 X10^3/uL (150-400); Red Blood Cell Count 4.81 X10^6/uL (4.0-5.2)
[2023-11-21 20:30] LABS: Alanine Aminotransferase 22 IU/L (<35); Albumin 4.6 g/dL (3.5-5.0); Albumin Globulin Ratio 1.2 (1.0-2.8); Alkaline Phosphatase 72 U/L (38-126); Aspartate Aminotransferase 26 IU/L (14-36); BUN Creatinine Ratio 17.5 (6-22); Bilirubin Total 0.4 mg/dL (0.2-1.3); Blood Urea Nitrogen 10 mg/dL (7-17); Calcium 9.6 mg/dL (8.4-10.2); Carbon Dioxide 31 mmol/L (22-32); Chloride 102 mmol/L (98-107); Estimated Glomerular Filt Rate > 60 mL/min (>60); Globulin 3.9 g/dL (1.7-4.1); Glucose 124 mg/dL (70-100); HEMOLYSIS < 15 (0-50); Lipase 90 U/L (23-300); Potassium 3.8 mmol/L (3.4-5.1); Sodium 139 mmol/L (137-145); Total Protein 8.5 g/dL (6.3-8.2)
[2023-11-21 20:31] LABS: Ammonia (NH3) < 9 umol/L (9-30)
[2023-11-21 20:46] LABS: HCG Quantitative /Beta subunit < 2.39 mIU/mL
[2023-11-21 20:52] LABS: Bacteria Urine None Seen; Culture Indicated Urine Cult Not Indicated; RBC Urine 0-1/HPF (0-5/HPF); Squamous Epithelial Cell Urine 1-5 /HPF (0-5/HPF); Urine Volume 10mL (spun); WBC Urine None Seen (0-5/HPF)
--- NOTE | 2023-11-21 21:18 | DI.CT.S_ITS ---
PROCEDURE: CT ABDOMEN PELVIS W CON INDICATIONS: abd pain TECHNIQUE: After the administration of intravenous contrast, axial sections acquired from the lung bases to the pubic symphysis. Coronal and sagittal reformats were performed. For radiation dose reduction, the following was used: automated exposure control, adjustment of mA and/or kV according to patient size. COMPARISON: [facility], CT, CT ABDOMEN PELVIS W CON, 07/18/2022, 17:48. FINDINGS: Lower thorax: The lung bases are clear. Heart size normal. No hiatal hernia. Liver: The liver is diffusely decreased in attenuation without focal mass lesion. Biliary system: No calcified cholelithiasis or pericholecystic inflammation. No intra or extrahepatic bile duct dilatation. Pancreas: Unremarkable without mass or inflammation evident. Spleen: Normal in size and density. Adrenals: Normal morphology and density. Reproductive system: Unremarkable as visualized. Urinary system: Normal renal size and attenuation. No renal calculi, hydronephrosis, or solid mass present. Urinary bladder unremarkable. Gastrointestinal system: The bowel is unremarkable without evidence of bowel obstruction or inflammation. The stomach appears unremarkable. Multiple diverticula arise from the sigmoid colon without evidence of diverticulitis. Moderate fecal debris throughout the colon Appendix: Normal appendix identified. No evidence of appendicitis. Peritoneal spaces: No mesenteric or retroperitoneal adenopathy. No free air. No free fluid. Vasculature: The IVC, aorta and iliac vasculature are unremarkable. Abdominal wall: Abdominal wall intact without evidence of ventral or inguinal hernias. Musculoskeletal: Normal bone mineralization. No acute fractures. L4-5 instrumented interbody fusion IMPRESSION: Moderate fecal debris throughout the colon without obstruction. Diverticulosis without diverticulitis. Approved by: Yuri Mccoy M.D. on 11/21/2023 at 21:12
[2023-11-21] MEDS: HYDROMORPHONE 0.5 MG INJ IV (21:59)
[2023-11-21] MEDS: LACTULOSE 20 GM/30 ML SOLUTION PO (23:10)
[2023-11-21] MEDS: FLEETS ENEMA 1 EACH PR (23:10)
--- NOTE | 2023-11-21 23:59 | PC.NURSE ---
Pt states no results from enema.
[2023-11-22 00:40] VITALS: BP 139/85; PULSE 105; RESP 20; TEMP 36.4; O2SAT 96
== END 2023-11-22 00:40 | disposition home or self-care (01) ==
PROVIDERS: Emergency Provider Emergency Medicine; Family Provider Family Medicine; PCP Family Medicine
DX: R10.84 Generalized abdominal pain (principal); K59.00 Constipation, unspecified; Z79.899 Other long term (current) drug therapy
CPT/HCPCS: 36415; 74177; 80053; 81003; 81015; 82140; 83690; 84702; 85025; 96374; 99284; J1170; Q9967

== ENCOUNTER 2023-12-14 22:17 | Emergency (ER) | payer OTHER, MEDICARE, SELFPAY ==
[2023-07-09 21:11] VITALS: BMI 50.6
--- NOTE | 2023-12-14 22:42 | EKG_ITS ---
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
[2023-12-14 22:43] VITALS: BP 139/80; PULSE 103; RESP 18; TEMP 37.3; O2SAT 96; BMI 48.2
--- NOTE | 2023-12-14 22:43 | DI.RAD.S_ITS ---
PROCEDURE: XR CHEST 1V INDICATIONS: chest pain TECHNIQUE: One view of the chest was acquired. COMPARISON: [facility], CR, XR CHEST 1V, 10/08/2023, 16:08. FINDINGS: Surgical changes and devices: None. Lungs and pleura: Lungs are clear. No pleural effusions or pneumothorax. Mediastinum: Mediastinal contours appear normal. Heart size is normal. Bones and chest wall: No suspicious bony lesions. Overlying soft tissues appear unremarkable. IMPRESSION: No acute cardiopulmonary abnormality is seen. Dictated by: Jim Magana M.D. on 12/15/2023 at 0:17 Approved by: Jim Magana M.D. on 12/15/2023 at 0:17
[2023-12-14 23:06] LABS: Add Manual Diff / Slide Review NO; Basophils Absolute Auto 100 /uL (0-100); Basophils Percent Auto 0.7 % (0-2); Eosinophils Absolute Auto 100 /uL (0-450); Eosinophils Percent Auto 0.7 % (2-4); Hematocrit 40.7 % (36-46); Hemoglobin 13.3 g/dL (12.0-16.0); Lymphocytes Absolute Auto 1500 /uL (1100-4500); Lymphocytes Percent Auto 16.1 % (25-40); Mean Corpuscular HGB Conc 32.7 % (30-36); Mean Corpuscular Hemoglobin 27.9 PG (26-34); Mean Corpuscular Volume 85.4 fL (80-100); Monocytes Absolute Auto 700 /uL (0-900); Monocytes Percent Auto 7.8 % (3-14); Neutrophils Absolute Auto 7200 /uL (1500-7000); Neutrophils Percent Auto 74.7 % (50-75); Platelet Count 233 X10^3/uL (150-400); Red Blood Cell Count 4.76 X10^6/uL (4.0-5.2); Red Cell Distribution Width 14.4 % (11.6-14.8); White Blood Cell Count 9.6 X10^3/uL (4.5-11.0)
[2023-12-14 23:10] LABS: INR 1.4 (0.9-1.3); Prothrombin Time 15.9 SECONDS (9.4-12.5)
[2023-12-14 23:12] LABS: PTT Partial Thromboplastin Tim 46 SECONDS (25.1-36.5)
[2023-12-14 23:15] LABS: Alanine Aminotransferase 29 IU/L (<35); Albumin 4.4 g/dL (3.5-5.0); Albumin Globulin Ratio 1.2 (1.0-2.8); Alkaline Phosphatase 65 U/L (38-126); Aspartate Aminotransferase 24 IU/L (14-36); BUN Creatinine Ratio 24.1 (6-22); Bilirubin Total 0.3 mg/dL (0.2-1.3); Blood Urea Nitrogen 13 mg/dL (7-17); Calcium 9.6 mg/dL (8.4-10.2); Carbon Dioxide 29 mmol/L (22-32); Chloride 104 mmol/L (98-107); Creatine Kinase 113 U/L (30-135); Estimated Glomerular Filt Rate > 60 mL/min (>60); Globulin 3.6 g/dL (1.7-4.1); Glucose 113 mg/dL (70-100); HEMOLYSIS < 15 (0-50); Lipase 84 U/L (23-300); Magnesium 2.4 mg/dL (1.6-2.3); Potassium 3.7 mmol/L (3.4-5.1); Sodium 139 mmol/L (137-145)
[2023-12-14 23:26] LABS: NT-proBNP (BNP-Adult 18+) 57 pg/mL (<125); Troponin I < 0.012 ng/mL (0.01-0.034)
[2023-12-15 01:13] VITALS: BP 139/88; PULSE 88; RESP 18; TEMP 36.3; O2SAT 98
[2023-12-15 02:01] LABS: Troponin I < 0.012 ng/mL (0.01-0.034)
--- NOTE | 2023-12-15 07:26 | ED.ARRPALP ---
HPI - Arrhythmia/Palpitations General Chief Complaint: Arrhythmia/Palpitations Stated Complaint: Palpitations Source: patient and EMS Mode of arrival: EMS History of Present Illness HPI narrative: Patient left without being seen by provider Related Data Home Medications Medication Instructions Recorded Confirmed ascorbic acid (vitamin C) 500 mg 500 mg PO DAILY 07/28/22 10/28/23 tablet potassium gluconate 595 mg (99 mg) 595 mg PO DAILY 07/28/22 10/28/23 tablet metoprolol succinate 25 mg 50 mg PO BID 10/10/22 10/28/23 tablet,extended release 24 hr docusate sodium 250 mg capsule 250 mg PO BID 12/03/22 10/28/23 (Col-Rite) ferrous sulfate 325 mg (65 mg 325 mg PO DAILY 12/03/22 10/28/23 iron) tablet vitamin B complex 1 tab PO DAILY 12/03/22 10/28/23 acetaminophen 500 mg tablet 1,000 mg PO Q6H PRN 08/05/23 10/28/23 (Tylenol Extra Strength) blood sugar diagnostic (True #10 ea 08/05/23 10/28/23 Metrix Glucose Test Strip) ketoconazole 2 % shampoo topical 08/05/23 10/28/23 ketoconazole 2 % topical cream 1 applic topical DAILY 08/05/23 10/28/23 lancets 33 gauge (Micro Thin #100 ea 08/05/23 10/28/23 Lancets) triamcinolone acetonide 0.1 % 1 applic topical 08/05/23 10/28/23 topical cream calcipotriene 0.005 % topical cream 1 applic topical BID 10/28/23 10/28/23 Previous Rx's Medication Instructions Recorded levalbuterol tartrate 45 1 puff inhalation Q4-6H PRN 01/22/22 mcg/actuation aerosol inhaler shortness of breath or wheezing #15 grams magnesium oxide 400 mg (241.3 mg 400 mg PO DAILY #30 tabs 07/18/22 magnesium) tablet glucose monitor #1 ea 12/01/22 glucose test strips #100 ea 12/01/22 lancets #100 ea 12/01/22 levothyroxine 25 mcg tablet 25 mcg PO DAILY #90 tabs 12/03/22 metformin 500 mg tablet 1,000 mg (2 x 500 mg) PO BID #360 12/03/22 tabs meclizine 25 mg tablet See Rx Instructions .Route 04/24/23 .COMPLEX #90 tabs spironolactone 25 mg tablet 12.5 mg (1/2 x 25 mg) PO DAILY #45 06/22/23 tabs insulin lispro 100 unit/mL 5 unit (0.05 mL) SUBCUT TID #15 mL 07/24/23 subcutaneous pen insulin detemir U-100 100 unit/mL 35 unit (0.35 mL) SUBCUT BEDTIME 08/10/23 (3 mL) subcutaneous pen (Levemir #15 mL FlexPen) pregabalin 300 mg capsule 300 mg PO BID #180 caps 08/17/23 pen needle, diabetic 32 gauge x #100 ea 09/14/23 (BD Monika 2nd Gen Pen Needle) blood-glucose meter,continuous #1 ea 09/25/23 (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) furosemide 40 mg tablet See Rx Instructions PO BID #225 10/14/23 tabs scopolamine base 1 mg over 3 days 1 patch transdermal Q3D PRN 10/14/23 transdermal patch dizziness #24 ea ipratropium bromide 17 1 puff PO Q8H #12.9 grams 10/20/23 mcg/actuation HFA aerosol inhaler (Atrovent HFA) terazosin 2 mg capsule 2 mg PO QPM #90 caps 10/23/23 blood-glucose sensor (Dexcom G6 #3 ea 10/27/23 Sensor device) blood-glucose transmitter (Dexcom #1 ea 11/02/23 G6 Transmitter device) diazepam 10 mg tablet (Valium) 10 mg PO .COMPLEX #7 tabs 11/04/23 omeprazole 20 mg capsule,delayed 20 mg PO BID #180 caps 11/04/23 release budesonide-formoterol HFA 160 2 puff PO BID #10.2 grams 11/13/23 mcg-4.5 mcg/actuation aerosol inhaler (Symbicort) fluconazole 150 mg tablet 150 mg PO Q3D 2 doses #2 tabs 11/13/23 tirzepatide 2.5 mg/0.5 mL 5 mg SUBCUT QWEEK #4 mL 11/18/23 subcutaneous pen injector (Keith) lactulose 20 gram/30 mL oral 20 g (30 mL) PO BID #1,200 mL 11/22/23 solution rivaroxaban 20 mg tablet (Xarelto) 20 mg PO DAILY #90 tabs 11/27/23 cyclobenzaprine 10 mg tablet 10 mg PO 3XD PRN for muscle spasm 12/02/23 #90 tabs empagliflozin 10 mg tablet 10 mg PO DAILY #30 tabs 12/02/23 (Jardiance) aripiprazole 30 mg tablet 30 mg PO BEDTIME #30 tabs 12/03/23 bupropion HCl 150 mg 24 hr tablet, 150 mg PO QAM #30 tabs 12/03/23 extended release Allergies Allergy/AdvReac Type Severity Reaction Status Date / Time carisoprodol [CARISOPRODOL] AdvReac Severe urinary Verified 11/21/23 17:42 retention fosphenytoin AdvReac Severe Seizures Verified 11/21/23 17:42 Latex, Natural Rubber AdvReac Mild Rash Verified 11/21/23 17:42 risperidone [From Risperdal] AdvReac urinary Verified 11/21/23 17:42 retention Patient History Medical History (Updated 12/15/23 @ 06:04 by Darlene Palomino RN) Facet arthropathy, lumbar Cervical radiculopathy 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) 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 Hypoxia Sinus tachycardia RBBB (right bundle branch block) Tobacco abuse Psychogenic nonepileptic seizure DM type 2 (diabetes mellitus, type 2) Alcoholism DVT (deep venous thrombosis) Narcotic habituation, continuous Pulmonary embolism Morbid obesity Asthma Essential hypertension LYLA (obstructive sleep apnea) Acetaminophen overdose of undetermined intent (12/2015) Suicide attempt Intraoperative cardiac arrest during non-cardiac surgery (11/2013) Ovarian cyst Plantar fasciitis 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 Cubital tunnel syndrome Status post laminectomy (12/14/15) Gastroesophageal reflux disease without esophagitis (03/02/15) Fibromyalgia (03/02/15) Tylenol overdose Obstipation Urinary retention Surgical History (System 10/22/23 @ 15:38 by Ritesh Robison) S/P lumbar spinal fusion H/O: hysterectomy Hx of toe surgery (05/16/20) History of carpal tunnel repair (~10/30/14) History of laminectomy (~09/2016) History of laminectomy History of colonoscopy History of esophagogastroduodenoscopy (EGD) History of lumbar spinal fusion (12/22/18) S/P epidural steroid injection (11/2013) Status post dilation and curettage (2008) Family History (System 10/22/23 @ 15:38 by Ritesh Robison) Grandfather Diabetes mellitus Family/Other Pancreatic cancer Social History (System 10/22/23 @ 15:38 by Ritesh Robison) household members: spouse Smoking Status: Former smoker alcohol intake: former eating out: 1-3 times/week Type(s) of exercise: normal ROM and activity and sedentary lifestyle Smoking Status: Former smoker tobacco type: cigarettes alcohol intake frequency: other Substance Use Type: does not use Exam Initial Vital Signs Initial Vital Signs: Vital Signs Temperature 99.1 F 12/14/23 22:43 Pulse Rate 103 H 12/14/23 22:43 Respiratory Rate 18 12/14/23 22:43 Blood Pressure 139/80 12/14/23 22:43 Pulse Oximetry 96 12/14/23 22:43 Oxygen Delivery Method Room Air 12/14/23 22:43 Course Orders Ordered: ED Orders 12/14/23 22:42 EKG-12 Lead Stat 12/14/23 22:43 XR chest 1V Stat 12/14/23 22:58 Complete Blood Count AUTO DIFF Stat Comprehensive Metabolic Panel Stat Lipase Stat Magnesium Stat NT-proBNP (BNP-Adult 18+) Stat PTT Partial Thromboplastin Aldo Stat Prothrombin Time INR Stat Troponin & CK Cardiac Panel Stat 12/15/23 01:20 Troponin I Stat Discontinued Medications Aspirin (Aspirin 81 Mg Chew Tab) 324 mg PO NOW ONE Stop: 12/14/23 22:44 Vital Signs Vital signs: Vital Signs - 8 hr 12/15/23 01:13 Temperature 97.4 F L Pulse Rate 88 Respiratory Rate 18 Blood Pressure 139/88 Pulse Oximetry 98 Oxygen Delivery Method Room Air MDM - Arrhythmia/Palpitations Lab Data 12/14/23 22:58 12/14/23 22:58 Labs: Lab Results 12/14/23 12/15/23 Range/Units 22:58 01:20 WBC 9.6 (4.5-11.0) X10^3/uL RBC 4.76 (4.0-5.2) X10^6/uL Hgb 13.3 (12.0-16.0) g/dL Hct 40.7 (36-46) % MCV 85.4 (80-100) fL MCH 27.9 (26-34) PG MCHC 32.7 (30-36) % RDW 14.4 (11.6-14.8) % Plt Count 233 (150-400) X10^3/uL Neut % (Auto) 74.7 (50-75) % Lymph % (Auto) 16.1 L (25-40) % Kay % (Auto) 7.8 (3-14) % Eos % (Auto) 0.7 L (2-4) % Baso % (Auto) 0.7 (0-2) % Neut # (Auto) 7200 H (9387-0322) /uL Lymph # (Auto) 1500 (4719-1012) /uL Kay # (Auto) 700 (0-900) /uL Eos # (Auto) 100 (0-450) /uL Baso # (Auto) 100 (0-100) /uL PT 15.9 H (9.4-12.5) SECONDS INR 1.4 H (0.9-1.3) APTT 46 H (25.1-36.5) SECONDS Sodium 139 (137-145) mmol/L Potassium 3.7 (3.4-5.1) mmol/L Chloride 104 (98-107) mmol/L Carbon Dioxide 29 (22-32) mmol/L BUN 13 (7-17) mg/dL Creatinine 0.54 (0.52-1.04) mg/dL Estimated GFR > 60 (>60) mL/min BUN/Creatinine Ratio 24.1 H (6-22) Glucose 113 H (70-100) mg/dL Calcium 9.6 (8.4-10.2) mg/dL Magnesium 2.4 H (1.6-2.3) mg/dL Total Bilirubin 0.3 (0.2-1.3) mg/dL AST 24 (14-36) IU/L ALT 29 (<35) IU/L Alkaline Phosphatase 65 (38-126) U/L Total Creatine Kinase 113 (30-135) U/L Troponin I < 0.012 < 0.012 (0.01-0.034) ng/mL NT-Pro-B Natriuret Pep 57 (<125) pg/mL Total Protein 8.0 (6.3-8.2) g/dL Albumin 4.4 (3.5-5.0) g/dL Globulin 3.6 (1.7-4.1) g/dL Albumin/Globulin Ratio 1.2 (1.0-2.8) Lipase 84 (23-300) U/L Point of Care Testing Test Results Negative Urine Dip Bedside Urine Glucose 100 mg/dl Bedside Urine Bilirubin - Negative Bedside Urine Ketone - Negative Urine Specific [place] 1.015 Bedside Urine Occult Blood - Negative Bedside Urine pH 6.0 Bedside Urine Protein - Negative Bedside Urine Urobilinogen - Negative Bedside Urine Nitrite - Negative Bedside Urine Leukocytes - Negative Esterase Discharge Plan Departure Patient Disposition: Left Without Being Seen Clinical Impression: Patient left without being seen Prescriptions: No Action insulin lispro 100 unit/mL insulin pen 5 unit SUBCUT TID Qty: 15 3RF furosemide 40 mg tablet See Rx Instructions PO BID Qty: 225 3RF Patient Comments: 60mg BID Rx Instructions: orally twice a day; 60mg (1.5 tab) every morning and 40mg (1 tab) in the evening scopolamine base 1 mg over 3 days patch 3 day 1 patch transdermal Q3D PRN (Reason: dizziness) Qty: 24 3RF metoprolol succinate 25 mg tablet extended release 24 hr 50 mg PO BID ferrous sulfate 325 mg (65 mg iron) tablet 325 mg PO DAILY docusate sodium [Col-Rite] 250 mg capsule 250 mg PO BID vitamin B complex Tablet 1 tab PO DAILY metformin 500 mg tablet 1,000 mg PO BID Qty: 360 3RF levothyroxine 25 mcg tablet 25 mcg PO DAILY Qty: 90 3RF bupropion HCl 150 mg tablet extended release 24 hr 150 mg PO QAM Qty: 30 3RF aripiprazole 30 mg tablet 30 mg PO BEDTIME Qty: 30 5RF Rx Instructions: Take one 30mg tablet by mouth daily levalbuterol tartrate 45 mcg/actuation HFA aerosol inhaler 1 puff inhalation Q4-6H PRN (Reason: shortness of breath or wheezing) Qty: 15 2RF magnesium oxide 400 mg (241.3 mg magnesium) tablet 400 mg PO DAILY Qty: 30 0RF (DME) glucose monitor See Rx Instructions .Route .MEDSUPPLY Qty: 1 0RF Rx Instructions: To test blood glucose daily (DME) glucose test strips See Rx Instructions .Route .MEDSUPPLY Qty: 100 3RF Rx Instructions: To test blood glucose daily (DME) lancets See Rx Instructions .Route .MEDSUPPLY Qty: 100 3RF Rx Instructions: to test blood glucose daily meclizine 25 mg tablet See Rx Instructions .ROUTE .COMPLEX Qty: 90 5RF Dose Instruction: TAKE 2 TABLETS BY MOUTH DAILY NEEDED FOR DIZZINESS OR VERTIGO Rx Instructions: TAKE up to 3 TABLETS BY MOUTH DAILY FOR DIZZINESS OR VERTIGO spironolactone 25 mg tablet 12.5 mg PO DAILY Qty: 45 3RF Levemir FlexPen 100 unit/mL (3 mL) insulin pen 35 unit SUBCUT BEDTIME Qty: 15 1RF pregabalin 300 mg capsule 300 mg PO BID Qty: 180 3RF Rx Instructions: take 1 capsule by mouth twice a day (DME) pen needle, diabetic [BD Monika 2nd Gen Pen Needle] 32 gauge x 5/32 needle See Rx Instructions .ROUTE .COMPLEX Qty: 100 3RF Dose Instruction: USE WITH LEVEMIR DAILY DIRECTED Rx Instructions: USE WITH LEVEMIR DAILY DIRECTED (DME) 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 Rx Instructions: USE DIRECTED. (DME) Dexcom G6 Transmitter Device See Rx Instructions .ROUTE .COMPLEX Qty: 1 0RF Dose Instruction: USE DIRECTED. Rx Instructions: USE DIRECTED. omeprazole 20 mg capsule,delayed release(DR/EC) 20 mg PO BID Qty: 180 0RF diazepam [Valium] 10 mg tablet 10 mg PO .COMPLEX MDD 3 tabs Qty: 7 0RF Rx Instructions: 1 to 2 tabs 1hr prior to spinal procedure. May take an additional tab if steroid flare experienced the night after the procedure. fluconazole 150 mg tablet 150 mg PO Q3D Qty: 2 0RF Rx Instructions: Take one tab. May repeat if symptoms persist after 3 days. budesonide-formoterol [Symbicort] 160-4.5 mcg/actuation HFA aerosol inhaler 2 puff PO BID Qty: 10.2 0RF Mounjaro 2.5 mg/0.5 mL pen injector 5 mg SUBCUT QWEEK Qty: 4 0RF Xarelto 20 mg tablet 20 mg PO DAILY Qty: 90 0RF Jardiance 10 mg tablet 10 mg PO DAILY Qty: 30 0RF cyclobenzaprine 10 mg tablet 10 mg PO 3XD PRN (Reason: for muscle spasm) Qty: 90 0RF ascorbic acid (vitamin C) 500 mg tablet 500 mg PO DAILY potassium gluconate 595 mg (99 mg) tablet 595 mg PO DAILY lactulose 20 gram/30 mL solution 20 g PO BID MDD 10 doses only, if needed Qty: 1200 0RF (DME) True Metrix Glucose Test Strip Strip See Rx Instructions .ROUTE DAILY Qty: 10 Rx Instructions: As directed (DME) lancets [Micro Thin Lancets] 33 gauge misc See Rx Instructions .ROUTE DAILY Qty: 100 Rx Instructions: As directed ketoconazole 2 % shampoo topical triamcinolone acetonide 0.1 % cream 1 applic topical ketoconazole 2 % cream 1 applic topical DAILY acetaminophen [Tylenol Extra Strength] 500 mg tablet 1,000 mg PO Q6H PRN calcipotriene 0.005 % cream 1 applic topical BID
== END 2023-12-15 06:01 | disposition left against medical advice (07) ==
PROVIDERS: Emergency Provider Emergency Medicine; Family Provider Family Medicine; PCP Family Medicine
DX: R07.9 Chest pain, unspecified (principal); R00.2 Palpitations; R42 Dizziness and giddiness
CPT/HCPCS: 71045; 80053; 81003; 81025; 82550; 83690; 83735; 83880; 84484; 85025; 85610; 85730; 93005; 99282

== ENCOUNTER → 2023-12-29 09:29 | Outpatient (CLI) | payer OTHER, MEDICARE, SELFPAY ==
[2023-07-09 21:11] VITALS: BMI 50.6
[2023-12-29 10:31] LABS: Hemoglobin A1C% w Est Avg Glu 6.2 % (4.0-6.0)
[2023-12-29 10:47] LABS: Alanine Aminotransferase 21 IU/L (<35); Albumin 4.1 g/dL (3.5-5.0); Albumin Globulin Ratio 1.3 (1.0-2.8); Alkaline Phosphatase 69 U/L (38-126); Aspartate Aminotransferase 21 IU/L (14-36); BUN Creatinine Ratio 17.5 (6-22); Bilirubin Total 0.4 mg/dL (0.2-1.3); Blood Urea Nitrogen 10 mg/dL (7-17); Calcium 9.5 mg/dL (8.4-10.2); Carbon Dioxide 32 mmol/L (22-32); Chloride 100 mmol/L (98-107); Cholesterol 131 mg/dL (140-199); Estimated Glomerular Filt Rate > 60 mL/min (>60); Globulin 3.2 g/dL (1.7-4.1); Glucose 118 mg/dL (70-100); HDL Cholesterol 38 mg/dL (40-60); HEMOLYSIS < 15 (0-50); LDL Cholesterol Calculated 50 mg/dL (<100); Potassium 4.3 mmol/L (3.4-5.1); Sodium 138 mmol/L (137-145); Total Protein 7.3 g/dL (6.3-8.2); Triglycerides 215 mg/dL (35-150)
[2023-12-29 11:16] LABS: TSH w/ Reflex to FT4 2.58 uIU/mL (0.47-4.68)
[2023-12-29 12:28] LABS: Creatinine Urine Random 118.49 mg/dL
[2023-12-29 12:34] LABS: Microalbumin Urine Random < 0.6 mg/dL (0-1.6)
== END ==
PROVIDERS: Family Provider Family Medicine; PCP Family Medicine; Referring Provider Nurse Practitioner Family; Visit Provider Nurse Practitioner Family
DX: E03.9 Hypothyroidism, unspecified (principal); I10 Essential (primary) hypertension; E11.65 Type 2 diabetes mellitus with hyperglycemia
CPT/HCPCS: 36415; 80053; 80061; 82043; 82570; 83036; 84443

== ENCOUNTER → 2024-03-28 08:23 | Outpatient (CLI) | payer OTHER, MEDICARE, SELFPAY ==
[2023-07-09 21:11] VITALS: BMI 50.6
--- NOTE | 2024-01-13 09:51 | DIAB.MNTFU ---
Follow-up Diabetes Medical Nutrition Therapy Assessment Name: Nuvia Alvarado Date: 01/13/24 Time: 905-950a Dx: Type II Diabetes Nuvia presents today for DM follow-up virtually using [facility]. 290# last PCP visit 09/2023. Thinks she has continued to lose wt, though unclear what current wt is. Plans to see PCP in one week. Last visit, endorsed stress with passing of her cat. Has a new kitten. Also reports some stress with having first year without her mom. Working with therapist on stress management and grief. Has a journal that helps and staying busy at home helps. Working on not stress eating at night. Questions about fast weight loss. Thought she was going to need back surgery, which would have required wt loss. States no sx at this time, though still has questions on how she can lose wt. Diet Recall: 9a: cheerios or sf cake slice 12p: egg sandwich 3p: Pork, salad, veggie Snack: nothing or bowl chips or cereal Beverages: iced tea unsweetened, coffee x1c with sf creamer, ETOH x 2-3 servings, water 24oz x2 Physical Activity: Still in PT. No intentional exercise otherwise. Barrier, still needing walker for walking. Self-Monitoring Blood Glucose: : Using Dexcom G6. Was wearing on her arm, but has now moved the sensor to her abdominal, per our last phone call. Unable to see BG trends since she cannot log into clarity. Most FBG in the 100-140mg/dl. After meals ranging from 110-120mg/dl. Reports some lows at night around 10p-12a. CGM will wake her and BG will be around 65mg/dl. Will then re check with finger sticks. States an ED provider told her to go with the CGM and not the finger stick as reliable. After a finger stick will usually be between 70-100mg/dl. 12-3p may have lows in the 60s. May want to back off detemir by 3-5u to start. Sees PCP next week. Feels she has to eat to keep up with lows. Diabetes Medications: 1000mg Metformin BID 10mg Jardiance 1000mg Metformin BID 5mg Tirzepetide per week 40u Detemir HS Pertinent Labs: hgA1c: 7% 06/2022 7.9% 09/2022 8% 04/2023 6.6% 09/2023 in clinic per report 6.2% 12/2023 Past Medical History: (This Medical Record has been edited. 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 RBBB (right bundle branch block) Sinus tachycardia Status post laminectomy (12/14/15) Suicide attempt 09/01 (uncertain if that is 08/2009 or 09/01/YYYY) Tobacco abuse Tylenol overdose Urinary retention Nutrition Rx: Carbohydrates: Meal:30-45g Snack:15-30g Nutrition Diagnosis: Excessive ETOH intake r/t stage of change aeb pt report and diet recall Physical inactivity r/t feeling limited by ability to walk without walker aeb pt report Intervention: This participant was very receptive. Provided appropriate educational handouts. Discussed the following topics: Recent blood sugar results and trends Medication management: potential for reduced HS insulin CGM vs Meter accuracy and reliability Weight loss MNT ETOH impact on BG and health Physical activity strategies seated Created SMART goals for patient self-care and success. Goals: Reduce ETOH to 2-3 servings in a sitting max- improved Implement stress management techniques (ie journal, walk, call a friend) to avoid stress eating- improved Consider reducing evening insulin by 3-5u- new Consider increased physical activity seated- new Follow-up: RDN [facility] follow-up prn. Overall, DM is well managed. She may benefit from reduced HS insulin given lows during the day. Suspect evening lows may be false compression lows. Will discuss further with PCP next week at her appt. Follow-up: NOAM ASTORGA follow-up in 2-3 weeks Roma Srinivasan RDN, [facility] Certified [facility] P: [phone] Thank you for this referral
[2024-01-19 14:23] VITALS: BMI 50.6
== END ==
PROVIDERS: Family Provider Family Medicine; PCP Family Medicine; Referring Provider Family Medicine
DX: E11.65 Type 2 diabetes mellitus with hyperglycemia (principal); Z71.3 Dietary counseling and surveillance; Z79.4 Long term (current) use of insulin; Z79.84 Long term (current) use of oral hypoglycemic drugs; Z79.85 Long-term (current) use of injectable non-insulin antidiabetic drugs
CPT/HCPCS: 97803

== ENCOUNTER 2024-05-04 12:01 | Day surgery (SDC) | payer OTHER, MEDICARE, SELFPAY ==
[2024-01-19 14:23] VITALS: BMI 50.6
--- NOTE | 2024-05-04 | PATH_ITS ---
[facility] Accession Number: [id number] No. of containers..01 Tissue . 01 Material submitted: . colon - COLON, RANDOM BIOPSIES . 01 Clinical history: . RANDOM BIOPSIES FOR DIARRHEA . 01 Diagnosis: COLON, RANDOM BIOPSIES: Colonic mucosa with no diagnostic alterations. No active inflammation, granulomas, dysplasia, or malignancy identified. No evidence of colitis. [facility] 05/06/20241831 Local . 01 Electronically signed: . Gustavo Dorsey MD, Pathologist NPI- [id number] . 01 Gross description: . RANDOM BIOPSIES: Received in formalin are multiple fragment(s) of hernandez, soft tissue measuring 0.1 x 0.1 x 0.1 cm to 0.3 x 0.2 x 0.2 cm submitted entirely in 1 cassette(s) /KEMAR 05/06/20241831 Local . 01 Pathologist provided ICD-10: R19.7 . 01 CPT . 567126 Specimen Comment: A courtesy copy of this report has been sent to [phone] Performed at: [address] [id number] MD Gustavo Dorsey MD Phone: [phone]
--- NOTE | 2024-05-04 12:28 | PM.PREOP ---
Pre-operative Note Interval Note History & Physical reviewed/Exam performed by Physician: Yes Changes to H&P: No ASA Class (for procedural sedation): III
--- NOTE | 2024-05-04 12:28 | PM.OP.COLON ---
Operative Date/Time/Diagnoses Date of procedure: 05/04/24 Pre-op diagnosis: See indication and findings Procedure & Clinicians Study performed: Colonoscopy Indications: Diarrhea Surgeon: Surjit Ziegler Procedure Notes Procedure in detail: After informed consent was obtained the patient was placed in a left lateral decubitus position. Then the video colonoscopy was placed in the rectum slowly advanced to the cecum. Preparation was good. On slow withdrawal mucosa was carefully examined. The scope was removed. The patient tolerated procedure well. Blood loss none Complications none Sedation mac Findings 1. Normal colonoscopy to cecum. Random biopsies performed to rule out microscopic colitis Will be in touch regarding biopsy results. 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
[2024-05-04] MEDS: LACTATED RINGERS 1,000 ML 42 ML IV (12:32)
[2024-05-04 12:41] VITALS: BP 139/91; PULSE 123; RESP 18; TEMP 36.3; O2SAT 96
[2024-05-04 13:19] VITALS: BP 122/79; PULSE 100; RESP 20; TEMP 36.5; O2SAT 97
[2024-05-04 13:24] VITALS: BP 116/81; PULSE 101; RESP 18; TEMP 36.5; O2SAT 95
[2024-05-04 13:29] VITALS: BP 132/85; PULSE 98; RESP 18; TEMP 36.4; O2SAT 98
[2024-05-04 13:33] VITALS: BP 133/86; PULSE 101; RESP 20; O2SAT 98
[2024-05-04 13:55] VITALS: BP 142/86; PULSE 100; RESP 16; O2SAT 99
--- NOTE | 2024-05-04 14:48 | SUR.PHASEII ---
pt to restart xarelto tomorrow. verbalizes understanding
== END 2024-05-04 13:55 | disposition home or self-care (01) ==
PROVIDERS: Family Provider Family Medicine; PCP Family Medicine; Referring Provider Internal Medicine Gastroenterology; Visit Provider Internal Medicine Gastroenterology
PROC: 0DJD8ZZ Inspection of Lower Intestinal Tract, Via Natural or Artificial Opening Endoscopic (ICD-10-PCS; CPT 45378; principal; 2024-05-04 14:00)
DX: R19.7 Diarrhea, unspecified (principal)
CPT/HCPCS: 45380; J2704

== ENCOUNTER 2024-05-07 15:18 | Emergency (ER) | payer OTHER, MEDICARE, SELFPAY ==
[2024-01-19 14:23] VITALS: BMI 50.6
[2024-05-07 15:27] VITALS: BP 135/84; PULSE 116; RESP 18; TEMP 36.4; O2SAT 98; BMI 44.9
[2024-05-07 16:49] LABS: Add Manual Diff / Slide Review NO; Basophils Absolute Auto 0 /uL (0-100); Basophils Percent Auto 0.4 % (0-2); Eosinophils Absolute Auto 0 /uL (0-450); Eosinophils Percent Auto 0.7 % (2-4); Hematocrit 44.1 % (36-46); Hemoglobin 14.6 g/dL (12.0-16.0); Lymphocytes Absolute Auto 1700 /uL (1100-4500); Lymphocytes Percent Auto 22.9 % (25-40); Mean Corpuscular HGB Conc 33.1 % (30-36); Mean Corpuscular Hemoglobin 28.5 PG (26-34); Mean Corpuscular Volume 86.3 fL (80-100); Monocytes Absolute Auto 400 /uL (0-900); Monocytes Percent Auto 6.2 % (3-14); Neutrophils Absolute Auto 5100 /uL (1500-7000); Neutrophils Percent Auto 69.8 % (50-75); Platelet Count 254 X10^3/uL (150-400); Red Blood Cell Count 5.11 X10^6/uL (4.0-5.2); White Blood Cell Count 7.2 X10^3/uL (4.5-11.0)
[2024-05-07 16:55] LABS: Alanine Aminotransferase 23 IU/L (<35); Albumin 4.7 g/dL (3.5-5.0); Albumin Globulin Ratio 1.2 (1.0-2.8); Alkaline Phosphatase 75 U/L (38-126); Aspartate Aminotransferase 25 IU/L (14-36); BUN Creatinine Ratio 11.4 (6-22); Bilirubin Total 0.4 mg/dL (0.2-1.3); Blood Urea Nitrogen 8 mg/dL (7-17); Calcium 9.5 mg/dL (8.4-10.2); Carbon Dioxide 33 mmol/L (22-32); Chloride 100 mmol/L (98-107); Estimated Glomerular Filt Rate > 60 mL/min (>60); Globulin 3.8 g/dL (1.7-4.1); Glucose 82 mg/dL (70-100); HEMOLYSIS < 15 (0-50); Lipase 85 U/L (23-300); Potassium 3.6 mmol/L (3.4-5.1); Sodium 140 mmol/L (137-145); Total Protein 8.5 g/dL (6.3-8.2)
--- NOTE | 2024-05-07 18:27 | ED.GENADULT ---
HPI - General Adult General Chief complaint: Abdominal Pain Stated complaint: abd px x3 days, colonoscopy on 05/04 Time Seen by Provider: 05/07/24 18:02 Source: patient Mode of arrival: Ambulatory History of Present Illness HPI narrative: Patient is a 43-year-old female. Three days ago underwent a colonoscopy. She states that she did have ?biopsies? performed. She does not know the results of these. She was not had a bowel movement since the procedure. She was having mid upper abdominal discomfort. It has been off and on since the procedure but today it has been somewhat worse. Has had some nausea without vomiting. No urinary symptoms. Related Data Home Medications Medication Instructions Recorded Confirmed ascorbic acid (vitamin C) 500 mg 500 mg PO DAILY 07/28/22 04/20/24 tablet potassium gluconate 595 mg (99 mg) 595 mg PO DAILY 07/28/22 04/20/24 tablet docusate sodium 250 mg capsule 250 mg PO BID 12/03/22 04/20/24 (Col-Rite) ferrous sulfate 325 mg (65 mg 325 mg PO DAILY 12/03/22 04/20/24 iron) tablet vitamin B complex 1 tab PO DAILY 12/03/22 04/20/24 acetaminophen 500 mg tablet 1,000 mg PO Q6H PRN 08/05/23 04/20/24 (Tylenol Extra Strength) blood sugar diagnostic (True #10 ea 08/05/23 02/03/24 Metrix Glucose Test Strip) ketoconazole 2 % shampoo topical 08/05/23 04/20/24 ketoconazole 2 % topical cream 1 applic topical DAILY 08/05/23 04/20/24 lancets 33 gauge (Micro Thin #100 ea 08/05/23 02/03/24 Lancets) triamcinolone acetonide 0.1 % 1 applic topical 08/05/23 04/20/24 topical cream blood-glucose meter (True Metrix #1 ea 02/03/24 02/03/24 Glucose Meter) metoprolol succinate 50 mg 50 mg PO BID 02/03/24 05/04/24 tablet,extended release 24 hr Previous Rx's Medication Instructions Recorded levalbuterol tartrate 45 1 puff inhalation Q4-6H PRN 01/22/22 mcg/actuation aerosol inhaler shortness of breath or wheezing #15 grams magnesium oxide 400 mg (241.3 mg 400 mg PO DAILY #30 tabs 07/18/22 magnesium) tablet lancets #100 ea 12/01/22 spironolactone 25 mg tablet 12.5 mg (1/2 x 25 mg) PO DAILY #45 06/22/23 tabs blood-glucose meter,continuous #1 ea 09/25/23 (Dexcom G6 Support Clerk) furosemide 40 mg tablet See Rx Instructions PO BID #225 10/14/23 tabs scopolamine base 1 mg over 3 days 1 patch transdermal Q3D PRN 10/14/23 transdermal patch dizziness #24 ea terazosin 2 mg capsule 2 mg PO QPM #90 caps 10/23/23 blood-glucose sensor (Dexcom G6 #3 ea 12/28/23 Sensor device) blood-glucose transmitter (Dexcom #1 ea 12/28/23 G6 Transmitter device) glucose monitor #1 ea 12/28/23 glucose test strips #100 ea 12/28/23 pen needle, diabetic 32 gauge x #100 ea 01/01/24 (BD Monika 2nd Gen Pen Needle) levothyroxine 25 mcg tablet 25 mcg PO DAILY #90 tabs 01/26/24 tirzepatide 2.5 mg/0.5 mL 5 mg SUBCUT QWEEK #4 mL 02/03/24 subcutaneous pen injector (Mounjaro) budesonide-formoterol HFA 160 2 puff inhalation BID #10.2 grams 02/09/24 mcg-4.5 mcg/actuation aerosol inhaler (Symbicort) pregabalin 300 mg capsule 300 mg PO BID #180 caps 02/26/24 rivaroxaban 20 mg tablet (Xarelto) 20 mg PO DAILY #90 tabs 02/26/24 tirzepatide 5 mg/0.5 mL 5 mg (0.5 mL) SUBCUT QWEEK #2 mL 02/29/24 subcutaneous pen injector (Mounjaro) cyclobenzaprine 10 mg tablet 10 mg PO 3XD PRN for muscle spasm 03/22/24 #90 tabs empagliflozin 10 mg tablet 10 mg PO DAILY #30 tabs 03/22/24 (Jardiance) ipratropium bromide 17 1 puff PO Q8H #12.9 grams 03/22/24 mcg/actuation HFA aerosol inhaler (Atrovent HFA) insulin glargine-yfgn 100 unit/mL 35 unit (0.35 mL) SUBCUT QPM #15 mL 04/13/24 (3 mL) subcutaneous pen aripiprazole 30 mg tablet 30 mg PO BEDTIME #90 tabs 04/20/24 omeprazole 20 mg capsule,delayed 20 mg PO BID #180 caps 04/25/24 release metformin 500 mg tablet 1,000 mg (2 x 500 mg) PO BID #120 04/27/24 tabs bupropion HCl 300 mg 24 hr tablet, 300 mg PO QAM #90 tabs 05/02/24 extended release Allergies Allergy/AdvReac Type Severity Reaction Status Date / Time carisoprodol [CARISOPRODOL] AdvReac Severe urinary Verified 05/07/24 15:26 retention fosphenytoin AdvReac Severe Seizures Verified 05/07/24 15:26 Latex, Natural Rubber AdvReac Mild Rash Verified 05/07/24 15:26 risperidone [From Risperdal] AdvReac urinary Verified 05/07/24 15:26 retention Review of Systems Review of Systems ROS Unobtainable: All systems reviewed & are unremarkable except as noted in HPI and below Patient History Medical History Facet arthropathy, lumbar Cervical radiculopathy 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) 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 Hypoxia Sinus tachycardia RBBB (right bundle branch block) Tobacco abuse Psychogenic nonepileptic seizure Alcoholism DVT (deep venous thrombosis) Narcotic habituation, continuous Pulmonary embolism Morbid obesity LYLA (obstructive sleep apnea) Acetaminophen overdose of undetermined intent (12/2015) Suicide attempt Intraoperative cardiac arrest during non-cardiac surgery (11/2013) Ovarian cyst Plantar fasciitis 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 Cubital tunnel syndrome Status post laminectomy (12/14/15) Gastroesophageal reflux disease without esophagitis (03/02/15) Fibromyalgia (03/02/15) Tylenol overdose Obstipation Urinary retention Surgical History (System 10/22/23 @ 15:38 by Ritesh Robison) S/P lumbar spinal fusion H/O: hysterectomy Hx of toe surgery (05/16/20) History of carpal tunnel repair (~10/30/14) History of laminectomy (~09/2016) History of laminectomy History of colonoscopy History of esophagogastroduodenoscopy (EGD) History of lumbar spinal fusion (12/22/18) S/P epidural steroid injection (11/2013) Status post dilation and curettage (2008) Family History (System 10/22/23 @ 15:38 by Ritesh Robison) Grandfather Diabetes mellitus Family/Other Pancreatic cancer Social History household members: spouse Smoking Status: Former smoker alcohol intake: current eating out: 1-3 times/week Type(s) of exercise: normal ROM and activity and sedentary lifestyle Smoking Status: Former smoker tobacco type: cigarettes alcohol intake frequency: other Exam Initial Vital Signs Initial Vital Signs: Vital Signs Temperature 97.6 F 05/07/24 15:27 Pulse Rate 116 H 05/07/24 15:27 Respiratory Rate 18 05/07/24 15:27 Blood Pressure 135/84 05/07/24 15:27 Pulse Oximetry 98 05/07/24 15:27 Oxygen Delivery Method Room Air 05/07/24 15:27 Const General: cooperative, comfortable and No ill appearing HENTX Head: normal to inspection and normocephalic Resp Effort & Inspection: normal respiratory effort Auscultation: clear to auscultation bilaterally Cardio Rate: regular rate Rhythm: regular rhythm GI Inspection: normal to inspection and non-distended Palpation: tender Neuro General: patient alert and patient awake Course Orders Ordered: ED Orders 05/07/24 16:37 Complete Blood Count AUTO DIFF Stat Comprehensive Metabolic Panel Stat Lipase Stat 05/07/24 19:28 CT abdomen pelvis w con Stat Discontinued Medications Ondansetron HCl (Ondansetron 4 Mg/2 Ml Inj) 4 mg IV NOW PRN PRN Reason: Nausea And Vomiting Ondansetron HCl (Ondansetron 4 Mg Odt) 4 mg PO NOW PRN PRN Reason: Nausea And Vomiting Vital Signs Vital signs: Vital Signs - 8 hr 05/07/24 19:36 05/07/24 19:37 05/07/24 19:37 Pulse Rate 103 H 98 H Respiratory Rate 18 Blood Pressure 125/79 Pulse Oximetry 96 95 Oxygen Delivery Method Room Air Medical Decision Making Lab Data Lab results reviewed: Yes I reviewed the patient's lab results. 05/07/24 16:37 05/07/24 16:37 Labs: Lab Results 05/07/24 Range/Units 16:37 WBC 7.2 (4.5-11.0) X10^3/uL RBC 5.11 (4.0-5.2) X10^6/uL Hgb 14.6 (12.0-16.0) g/dL Hct 44.1 (36-46) % MCV 86.3 (80-100) fL MCH 28.5 (26-34) PG MCHC 33.1 (30-36) % RDW 14.0 (11.6-14.8) % Plt Count 254 (150-400) X10^3/uL Neut % (Auto) 69.8 (50-75) % Lymph % (Auto) 22.9 L (25-40) % [place] % (Auto) 6.2 (3-14) % Eos % (Auto) 0.7 L (2-4) % Baso % (Auto) 0.4 (0-2) % Neut # (Auto) 5100 (7041-0017) /uL Lymph # (Auto) 1700 (6677-5943) /uL [place] # (Auto) 400 (0-900) /uL Eos # (Auto) 0 (0-450) /uL Baso # (Auto) 0 (0-100) /uL Sodium 140 (137-145) mmol/L Potassium 3.6 (3.4-5.1) mmol/L Chloride 100 (98-107) mmol/L Carbon Dioxide 33 H (22-32) mmol/L BUN 8 (7-17) mg/dL Creatinine 0.70 (0.52-1.04) mg/dL Estimated GFR > 60 (>60) mL/min BUN/Creatinine Ratio 11.4 (6-22) Glucose 82 (70-100) mg/dL Calcium 9.5 (8.4-10.2) mg/dL Total Bilirubin 0.4 (0.2-1.3) mg/dL AST 25 (14-36) IU/L ALT 23 (<35) IU/L Alkaline Phosphatase 75 (38-126) U/L Total Protein 8.5 H (6.3-8.2) g/dL Albumin 4.7 (3.5-5.0) g/dL Globulin 3.8 (1.7-4.1) g/dL Albumin/Globulin Ratio 1.2 (1.0-2.8) Lipase 85 (23-300) U/L Urine Dip Bedside Urine Glucose 1000 mg/dl Bedside Urine Bilirubin - Negative Bedside Urine Ketone - Negative Urine Specific [place] 1.010 Bedside Urine Occult Blood - Negative Bedside Urine pH 7.0 Bedside Urine Protein - Negative Bedside Urine Urobilinogen - Negative Bedside Urine Nitrite - Negative Bedside Urine Leukocytes - Negative Esterase Point of care testing: Urine Dip Bedside Urine Glucose 1000 mg/dl Bedside Urine Bilirubin - Negative Bedside Urine Ketone - Negative Urine Specific [place] 1.010 Bedside Urine Occult Blood - Negative Bedside Urine pH 7.0 Bedside Urine Protein - Negative Bedside Urine Urobilinogen - Negative Bedside Urine Nitrite - Negative Bedside Urine Leukocytes - Negative Esterase Imaging Data CT scan - abdomen/pelvis: Radiologist's Impression: PROCEDURE: CT ABDOMEN PELVIS W CON INDICATIONS: Colonoscopy 05/04 with continued abdominal pain TECHNIQUE: After the administration of intravenous contrast, axial sections acquired from the lung bases to the pubic symphysis. Coronal and sagittal reformats were performed. For radiation dose reduction, the following was used: automated exposure control, adjustment of mA and/or kV according to patient size. COMPARISON: [facility], CT, CT ABDOMEN PELVIS W CON, 11/21/2023, 21:27. [facility], CT, CT ABDOMEN PELVIS W CON, 07/18/2022, 17:48. FINDINGS: Image quality: Diagnostic. Lower Chest: No significant findings. ABDOMEN: Liver: No solid mass. Gallbladder: No radiopaque gallstones or wall thickening. Biliary ducts: No biliary dilation. Pancreas: No ductal dilation. Spleen: Size is within normal limits. Adrenal Glands: No adrenal nodules. Kidneys and Ureters: No hydronephrosis. No solid mass. No complex renal cystic lesion which requires follow up. Stomach and Bowel: Normal colonic caliber, without significant wall thickening. Scattered colonic diverticula without acute inflammation. No evidence for small bowel obstruction or associated inflammatory changes. Normal appendix. Peritoneum: No abnormal intraperitoneal fluid. No free air. Ventral Wall: No significant ventral hernia. Abdominal Nodes: No retroperitoneal or mesenteric adenopathy by size criteria. Vessels: Aorta and inferior vena cava are normal in size. PELVIS: Pelvic Organs: Unremarkable. Bladder: No bladder wall thickening, accounting for underdistention. Pelvic Nodes: No enlarged lymph nodes. Miscellaneous: No inguinal hernias are seen. Bones: No aggressive osseous abnormality. Visualized osseous structures appear intact without acute fracture or focal destructive lesion. No acute compression fractures of the imaged spine. Stable postsurgical changes of spinal fusion at L4-5. IMPRESSION: CT abdomen and pelvis without acute abnormalities. Colonic diverticulosis without acute diverticulitis. Normal appendix. MDM Narrative Medical decision making narrative: Labs are benign. Urinalysis is not consistent with a urinary tract infection. Patient was afebrile. Vital signs unremarkable. CT scan of the abdomen and pelvis shows no acute abnormalities. No signs of diverticulitis/perforation/abscess. No indication for surgical consultation. No indication for antibiotics. I suspect that her symptoms are related to the colonoscopy but I do feel that things will improve over the next couple days. Patient was given return precautions and follow-up instructions. She expressed understanding and agreement. Discharge Plan Departure Patient Disposition: Home Clinical Impression: Abdominal pain Instructions: DI for Abdominal Pain-Adult Activity Restrictions/Additional Instructions: Continue to follow all of the postoperative instructions given to you by the provider who did your colonoscopy. Continue to take all of your medications as directed. Return to the emergency department for new or worsening symptoms. Prescriptions: No Action furosemide 40 mg tablet See Rx Instructions PO BID Qty: 225 3RF Patient Comments: 60mg BID Rx Instructions: orally twice a day; 60mg (1.5 tab) every morning and 40mg (1 tab) in the evening scopolamine base 1 mg over 3 days patch 3 day 1 patch transdermal Q3D PRN (Reason: dizziness) Qty: 24 3RF ferrous sulfate 325 mg (65 mg iron) tablet 325 mg PO DAILY docusate sodium [Col-Rite] 250 mg capsule 250 mg PO BID vitamin B complex Tablet 1 tab PO DAILY aripiprazole 30 mg tablet 30 mg PO BEDTIME Qty: 90 3RF Rx Instructions: Take one 30mg tablet by mouth daily levalbuterol tartrate 45 mcg/actuation HFA aerosol inhaler 1 puff inhalation Q4-6H PRN (Reason: shortness of breath or wheezing) Qty: 15 2RF magnesium oxide 400 mg (241.3 mg magnesium) tablet 400 mg PO DAILY Qty: 30 0RF (DME) lancets See Rx Instructions .Route .MEDSUPPLY Qty: 100 3RF Rx Instructions: to test blood glucose daily spironolactone 25 mg tablet 12.5 mg PO DAILY Qty: 45 3RF (DME) Dexcom G6 Support Clerk Misc See Rx Instructions .Route Qty: 1 0RF Rx Instructions: As directed terazosin 2 mg capsule 2 mg PO QPM Qty: 90 0RF (DME) glucose monitor See Rx Instructions .Route .MEDSUPPLY Qty: 1 0RF Rx Instructions: To test blood glucose daily (DME) Dexcom G6 Transmitter Device See Rx Instructions .ROUTE .COMPLEX Qty: 1 3RF Dose Instruction: USE DIRECTED. Rx Instructions: USE DIRECTED. (DME) Dexcom G6 Sensor Device See Rx Instructions .ROUTE .COMPLEX Qty: 3 3RF Dose Instruction: USE DIRECTED. Rx Instructions: USE DIRECTED. (DME) glucose test strips See Rx Instructions .Route .MEDSUPPLY Qty: 100 3RF Rx Instructions: To test blood glucose daily (DME) pen needle, diabetic [BD Monika 2nd Gen Pen Needle] 32 gauge x 5/32 needle See Rx Instructions .ROUTE .COMPLEX Qty: 100 0RF Dose Instruction: USE WITH LEVEMIR DAILY DIRECTED Rx Instructions: USE WITH LEVEMIR DAILY DIRECTED levothyroxine 25 mcg tablet 25 mcg PO DAILY Qty: 90 3RF budesonide-formoterol [Symbicort] 160-4.5 mcg/actuation HFA aerosol inhaler 2 puff inhalation BID Qty: 10.2 2RF pregabalin 300 mg capsule 300 mg PO BID Qty: 180 3RF Rx Instructions: take 1 capsule by mouth twice a day Xarelto 20 mg tablet 20 mg PO DAILY Qty: 90 3RF Mounjaro 5 mg/0.5 mL pen injector 5 mg SUBCUT QWEEK Qty: 2 3RF Jardiance 10 mg tablet 10 mg PO DAILY Qty: 30 2RF cyclobenzaprine 10 mg tablet 10 mg PO 3XD PRN (Reason: for muscle spasm) Qty: 90 0RF Atrovent HFA 17 mcg/actuation HFA aerosol inhaler 1 puff PO Q8H Qty: 12.9 0RF insulin glargine-yfgn 100 unit/mL (3 mL) insulin pen 35 unit SUBCUT QPM Qty: 15 2RF omeprazole 20 mg capsule,delayed release(DR/EC) 20 mg PO BID Qty: 180 0RF metformin 500 mg tablet 1,000 mg PO BID Qty: 120 0RF bupropion HCl 300 mg tablet extended release 24 hr 300 mg PO QAM Qty: 90 3RF ascorbic acid (vitamin C) 500 mg tablet 500 mg PO DAILY potassium gluconate 595 mg (99 mg) tablet 595 mg PO DAILY (DME) True Metrix Glucose Test Strip Strip See Rx Instructions .ROUTE DAILY Qty: 10 Rx Instructions: As directed (DME) lancets [Micro Thin Lancets] 33 gauge misc See Rx Instructions .ROUTE DAILY Qty: 100 Rx Instructions: As directed ketoconazole 2 % shampoo topical triamcinolone acetonide 0.1 % cream 1 applic topical ketoconazole 2 % cream 1 applic topical DAILY acetaminophen [Tylenol Extra Strength] 500 mg tablet 1,000 mg PO Q6H PRN Mounjaro 2.5 mg/0.5 mL pen injector 5 mg SUBCUT QWEEK Qty: 4 0RF (DME) blood-glucose meter [True Metrix Glucose Meter] Misc See Rx Instructions .ROUTE DAILY Qty: 1 Rx Instructions: As directed metoprolol succinate 50 mg tablet extended release 24 hr 50 mg PO BID Referrals: Alejandra Lynch MD [Primary Care Provider] - Stand Alone Forms: Patient Portal/API/Survey
--- NOTE | 2024-05-07 19:28 | DI.CT.S_ITS ---
PROCEDURE: CT ABDOMEN PELVIS W CON INDICATIONS: Colonoscopy 05/04 with continued abdominal pain TECHNIQUE: After the administration of intravenous contrast, axial sections acquired from the lung bases to the pubic symphysis. Coronal and sagittal reformats were performed. For radiation dose reduction, the following was used: automated exposure control, adjustment of mA and/or kV according to patient size. COMPARISON: [facility], CT, CT ABDOMEN PELVIS W CON, 11/21/2023, 21:27. [facility], CT, CT ABDOMEN PELVIS W CON, 07/18/2022, 17:48. FINDINGS: Image quality: Diagnostic. Lower Chest: No significant findings. ABDOMEN: Liver: No solid mass. Gallbladder: No radiopaque gallstones or wall thickening. Biliary ducts: No biliary dilation. Pancreas: No ductal dilation. Spleen: Size is within normal limits. Adrenal Glands: No adrenal nodules. Kidneys and Ureters: No hydronephrosis. No solid mass. No complex renal cystic lesion which requires follow up. Stomach and Bowel: Normal colonic caliber, without significant wall thickening. Scattered colonic diverticula without acute inflammation. No evidence for small bowel obstruction or associated inflammatory changes. Normal appendix. Peritoneum: No abnormal intraperitoneal fluid. No free air. Ventral Wall: No significant ventral hernia. Abdominal Nodes: No retroperitoneal or mesenteric adenopathy by size criteria. Vessels: Aorta and inferior vena cava are normal in size. PELVIS: Pelvic Organs: Unremarkable. Bladder: No bladder wall thickening, accounting for underdistention. Pelvic Nodes: No enlarged lymph nodes. Miscellaneous: No inguinal hernias are seen. Bones: No aggressive osseous abnormality. Visualized osseous structures appear intact without acute fracture or focal destructive lesion. No acute compression fractures of the imaged spine. Stable postsurgical changes of spinal fusion at L4-5. IMPRESSION: CT abdomen and pelvis without acute abnormalities. Colonic diverticulosis without acute diverticulitis. Normal appendix. Dictated by: Jim Magana M.D. on 05/07/2024 at 19:26 Approved by: Jim Magana M.D. on 05/07/2024 at 19:29
[2024-05-07 19:36] VITALS: PULSE 103; O2SAT 96
[2024-05-07 19:37] VITALS: BP 125/79; PULSE 98; RESP 18; O2SAT 95
--- NOTE | 2024-05-07 19:39 | PC.NURSE ---
Dr. Arora at bedside
== END 2024-05-07 19:59 | disposition home or self-care (01) ==
PROVIDERS: Emergency Medicine; Emergency Provider Emergency Medicine; Family Provider Family Medicine; PCP Family Medicine
DX: R10.10 Upper abdominal pain, unspecified (principal); Z98.890 Other specified postprocedural states
CPT/HCPCS: 36415; 74177; 80053; 81003; 83690; 85025; 99283; 99284; Q9967

== ENCOUNTER 2024-06-13 13:06 | Emergency (ER) | payer OTHER, MEDICARE, SELFPAY ==
[2024-01-19 14:23] VITALS: BMI 50.6
[2024-06-13] VITALS (12 sets, daily range): BP systolic 122–137; BP diastolic 61–85; PULSE 87–100; RESP 15–22; TEMP 36.2; O2SAT 93–97; BMI 44.9
--- NOTE | 2024-06-13 13:16 | DI.RAD.S_ITS ---
PROCEDURE: XR CHEST 1V INDICATIONS: chest pain TECHNIQUE: One view of the chest was acquired. COMPARISON: [facility], CR, XR CHEST 1V, 12/14/2023, 23:27. FINDINGS: Surgical changes and devices: None. Lungs and pleura: Mild pulmonary vascular congestion is seen. No definite focal infiltrate. No pleural effusions or pneumothorax. Mediastinum: Mediastinal contours appear normal. Heart size is normal. Bones and chest wall: No suspicious bony lesions. Overlying soft tissues appear unremarkable. IMPRESSION: Mild congestion. No definite focal infiltrate. No pleural effusion or pneumothorax. Dictated by: Lambert King M.D. on 06/13/2024 at 14:07 Approved by: Lambert King M.D. on 06/13/2024 at 14:07
--- NOTE | 2024-06-13 13:16 | EKG_ITS ---
[address] [id number] [place] [address] Test Date: 2024-06-13 Pat Name: Nuvia Alvarado Department: [facility] Room: Gender: Female Home Care Assistant: ZAHRA : 1980 Requested By: Order Number: [id number] Reading MD: Measurements Intervals [place] Rate: 91 P: 6 AL: 144 QRS: 54 QRSD: 118 T: 66 QT: 364 QTc: 447 Interpretive Statements Normal sinus rhythm Incomplete right bundle branch block ST & T wave abnormality, consider anterior ischemia
[2024-06-13 13:53] LABS: Add Manual Diff / Slide Review NO; Basophils Absolute Auto 0 /uL (0-100); Basophils Percent Auto 0.5 % (0-2); Eosinophils Absolute Auto 100 /uL (0-450); Eosinophils Percent Auto 1.6 % (2-4); Hematocrit 42.9 % (36-46); Hemoglobin 14.1 g/dL (12.0-16.0); Lymphocytes Absolute Auto 1000 /uL (1100-4500); Lymphocytes Percent Auto 24.7 % (25-40); Mean Corpuscular HGB Conc 32.8 % (30-36); Mean Corpuscular Hemoglobin 28.4 PG (26-34); Mean Corpuscular Volume 86.5 fL (80-100); Monocytes Absolute Auto 300 /uL (0-900); Monocytes Percent Auto 7.5 % (3-14); Neutrophils Absolute Auto 2500 /uL (1500-7000); Neutrophils Percent Auto 65.7 % (50-75); Platelet Count 203 X10^3/uL (150-400); Red Blood Cell Count 4.96 X10^6/uL (4.0-5.2); Red Cell Distribution Width 14.3 % (11.6-14.8); White Blood Cell Count 3.9 X10^3/uL (4.5-11.0)
[2024-06-13 14:03] LABS: Prothrombin Time 11.4 SECONDS (9.4-12.5)
[2024-06-13 14:06] LABS: PTT Partial Thromboplastin Tim 37 SECONDS (25.1-36.5)
[2024-06-13 14:08] LABS: Alanine Aminotransferase 26 IU/L (<35); Albumin 4.3 g/dL (3.5-5.0); Albumin Globulin Ratio 1.2 (1.0-2.8); Alkaline Phosphatase 60 U/L (38-126); Aspartate Aminotransferase 29 IU/L (14-36); BUN Creatinine Ratio 8.7 (6-22); Bilirubin Total 0.3 mg/dL (0.2-1.3); Blood Urea Nitrogen 6 mg/dL (7-17); Calcium 9.2 mg/dL (8.4-10.2); Carbon Dioxide 36 mmol/L (22-32); Chloride 103 mmol/L (98-107); Creatine Kinase 119 U/L (30-135); Estimated Glomerular Filt Rate > 60 mL/min (>60); Globulin 3.6 g/dL (1.7-4.1); Glucose 112 mg/dL (70-100); HEMOLYSIS < 15 (0-50); Lipase 51 U/L (23-300); Magnesium 2.2 mg/dL (1.6-2.3); Potassium 3.9 mmol/L (3.4-5.1); Sodium 144 mmol/L (137-145); Total Protein 7.9 g/dL (6.3-8.2)
[2024-06-13] MEDS: ONDANSETRON 4 MG/2 ML INJ IV (14:10)
[2024-06-13 14:20] LABS: NT-proBNP (BNP-Adult 18+) 161 pg/mL (<125); Troponin I < 0.012 ng/mL (0.01-0.034)
--- NOTE | 2024-06-13 16:10 | ED.CHESTPAIN ---
HPI - Chest Pain General Chief Complaint: Chest Pain Stated Complaint: Flu, Cough, Chest Pain Time Seen by Provider: 06/13/24 15:58 Source: patient Mode of arrival: Ambulatory Limitations: no limitations History of Present Illness HPI narrative: Patient is a 43-year-old female history of pulmonary embolisms presenting to day with chest pain. She reports that she has been having upper respiratory like symptoms fever cough ongoing for about a week. She tested positive for influenza a 4 days ago. Today she started having some heaviness in her chest lasting a couple of minutes not necessarily worse with exertion. It is nonradiating. She continues to have nonproductive cough and general feeling of malaise. She does not report any sort of fever. No significant shortness of breath. She does have a history of multiple PEs and DVT on Xarelto. Related Data Home Medications Medication Instructions Recorded Confirmed ascorbic acid (vitamin C) 500 mg 500 mg PO DAILY 07/28/22 04/20/24 tablet potassium gluconate 595 mg (99 mg) 595 mg PO DAILY 07/28/22 04/20/24 tablet docusate sodium 250 mg capsule 250 mg PO BID 12/03/22 04/20/24 (Col-Rite) ferrous sulfate 325 mg (65 mg 325 mg PO DAILY 12/03/22 04/20/24 iron) tablet vitamin B complex 1 tab PO DAILY 12/03/22 04/20/24 acetaminophen 500 mg tablet 1,000 mg PO Q6H PRN 08/05/23 04/20/24 (Tylenol Extra Strength) blood sugar diagnostic (True #10 ea 08/05/23 02/03/24 Metrix Glucose Test Strip) ketoconazole 2 % shampoo topical 08/05/23 04/20/24 lancets 33 gauge (Micro Thin #100 ea 08/05/23 02/03/24 Lancets) triamcinolone acetonide 0.1 % 1 applic topical 08/05/23 04/20/24 topical cream blood-glucose meter (True Metrix #1 ea 02/03/24 02/03/24 Glucose Meter) metoprolol succinate 50 mg 50 mg PO BID 02/03/24 05/04/24 tablet,extended release 24 hr Previous Rx's Medication Instructions Recorded levalbuterol tartrate 45 1 puff inhalation Q4-6H PRN 08/31/22 mcg/actuation aerosol inhaler shortness of breath or wheezing #15 grams magnesium oxide 400 mg (241.3 mg 400 mg PO DAILY #30 tabs 07/18/22 magnesium) tablet lancets #100 ea 12/01/22 spironolactone 25 mg tablet 12.5 mg (1/2 x 25 mg) PO DAILY #45 06/22/23 tabs blood-glucose meter,continuous #1 ea 09/25/23 (Dexcom G6 Assistant Professor Of Nursing) furosemide 40 mg tablet See Rx Instructions PO BID #225 10/14/23 tabs scopolamine base 1 mg over 3 days 1 patch transdermal Q3D PRN 10/14/23 transdermal patch dizziness #24 ea terazosin 2 mg capsule 2 mg PO QPM #90 caps 10/23/23 blood-glucose sensor (Dexcom G6 #3 ea 12/28/23 Sensor device) blood-glucose transmitter (Dexcom #1 ea 12/28/23 G6 Transmitter device) glucose monitor #1 ea 12/28/23 glucose test strips #100 ea 12/28/23 pen needle, diabetic 32 gauge x #100 ea 01/01/24/32 (BD Monika 2nd Gen Pen Needle) levothyroxine 25 mcg tablet 25 mcg PO DAILY #90 tabs 01/26/24 budesonide-formoterol HFA 160 2 puff inhalation BID #10.2 grams 02/09/24 mcg-4.5 mcg/actuation aerosol inhaler (Symbicort) pregabalin 300 mg capsule 300 mg PO BID #180 caps 02/26/24 rivaroxaban 20 mg tablet (Xarelto) 20 mg PO DAILY #90 tabs 02/26/24 tirzepatide 5 mg/0.5 mL 5 mg (0.5 mL) SUBCUT QWEEK #2 mL 02/29/24 subcutaneous pen injector (Sonnyunchance) empagliflozin 10 mg tablet 10 mg PO DAILY #30 tabs 03/22/24 (Jardiance) insulin glargine-yfgn 100 unit/mL 35 unit (0.35 mL) SUBCUT QPM #15 mL 04/13/24 (3 mL) subcutaneous pen aripiprazole 30 mg tablet 30 mg PO BEDTIME #90 tabs 04/20/24 omeprazole 20 mg capsule,delayed 20 mg PO BID #180 caps 04/25/24 release metformin 500 mg tablet 1,000 mg (2 x 500 mg) PO BID #120 04/27/24 tabs bupropion HCl 300 mg 24 hr tablet, 300 mg PO QAM #90 tabs 05/02/24 extended release cyclobenzaprine 10 mg tablet 10 mg PO 3XD PRN for muscle spasm 05/09/24 #90 tabs ipratropium bromide 17 1 puff PO Q8H #12.9 grams 05/27/24 mcg/actuation HFA aerosol inhaler (Atrovent HFA) amoxicillin 500 mg capsule 1,000 mg (2 x 500 mg) PO TID 5 06/13/24 days #30 caps azithromycin 250 mg tablet See Rx Instructions PO .COMPLEX #6 06/13/24 tabs Allergies Allergy/AdvReac Type Severity Reaction Status Date / Time carisoprodol [CARISOPRODOL] AdvReac Severe urinary Verified 05/07/24 15:26 retention fosphenytoin AdvReac Severe Seizures Verified 05/07/24 15:26 Latex, Natural Rubber AdvReac Mild Rash Verified 05/07/24 15:26 risperidone [From Risperdal] AdvReac urinary Verified 05/07/24 15:26 retention Patient History Medical History Facet arthropathy, lumbar Cervical radiculopathy 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 hypoxemia 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) 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 Hypoxia Sinus tachycardia RBBB (right bundle branch block) Tobacco abuse Psychogenic nonepileptic seizure Alcoholism DVT (deep venous thrombosis) Narcotic habituation, continuous Pulmonary embolism Morbid obesity LYLA (obstructive sleep apnea) Acetaminophen overdose of undetermined intent (12/2015) Suicide attempt Intraoperative cardiac arrest during non-cardiac surgery (11/2013) Ovarian cyst Plantar fasciitis 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 Cubital tunnel syndrome Status post laminectomy (12/14/15) Gastroesophageal reflux disease without esophagitis (03/02/15) Fibromyalgia (03/02/15) Tylenol overdose Obstipation Urinary retention Surgical History S/P lumbar spinal fusion H/O: hysterectomy Hx of toe surgery (05/16/20) History of carpal tunnel repair (~10/30/14) History of laminectomy (~09/2016) History of laminectomy History of colonoscopy History of esophagogastroduodenoscopy (EGD) History of lumbar spinal fusion (12/22/18) S/P epidural steroid injection (11/2013) Status post dilation and curettage (2008) Family History Grandfather Diabetes mellitus Family/Other Pancreatic cancer Social History household members: spouse Smoking Status: Former smoker alcohol intake: current eating out: 1-3 times/week Type(s) of exercise: normal ROM and activity and sedentary lifestyle Smoking Status: Former smoker tobacco type: cigarettes alcohol intake frequency: other Alcohol type: hard liquor Exam Initial Vital Signs Initial Vital Signs: Vital Signs Temperature 97.2 F L 06/13/24 13:10 Pulse Rate 92 H 06/13/24 13:10 Respiratory Rate 16 06/13/24 13:10 Blood Pressure 135/79 06/13/24 13:10 Pulse Oximetry 97 06/13/24 13:10 Oxygen Delivery Method Room Air 06/13/24 13:10 GENERAL: Alert 43-year-old female appears to not feel well slightly Katia ME HEENT: Head atraumatic,EOMI, pupils reactive, face symmetric, [moist] mucous membranes CARDIOVASCULAR: Regular rate and rhythm without murmurs, rubs or gallops. RESPIRATORY: Slightly coarse breath sounds in lower lobes no respiratory distress or wheezing speaks in full sentences ABDOMEN: Soft, nontender. Normoactive bowel sounds all 4 quadrants. No guarding or rebound. EXTREMITIES: Normal range of motion, no clubbing or edema. Neurovascularly intact NEUROLOGICAL: Alert and oriented x4.Normal gait and speech. SKIN: Warm, dry, no laceration, no petechiae, no rashes or lesions. Course Orders Ordered: ED Orders 06/13/24 13:16 XR chest 1V Stat EKG-12 Lead Stat 06/13/24 13:40 Complete Blood Count AUTO DIFF Stat Comprehensive Metabolic Panel Stat Lipase Stat Magnesium Stat NT-proBNP (BNP-Adult 18+) Stat PTT Partial Thromboplastin Aldo Stat Prothrombin Time INR Stat Troponin & CK Cardiac Panel Stat 06/13/24 16:41 CT angio chest PE protocol Stat Discontinued Medications Amoxicillin (Amoxicillin 250 Mg Capsule) 1,000 mg PO NOW ONE Stop: 06/13/24 17:36 Last Admin: 06/13/24 17:53 Dose: 1,000 mg Documented By: RB Aspirin (Aspirin 81 Mg Chew Tab) 324 mg PO NOW ONE Stop: 06/13/24 13:17 Last Admin: 06/13/24 13:52 Dose: Not Given Documented By: RANDI Azithromycin (Azithromycin 250 Mg Tablet) 500 mg PO NOW ONE Stop: 06/13/24 17:36 Last Admin: 06/13/24 17:52 Dose: 500 mg Documented By: RB Ondansetron HCl (Ondansetron 4 Mg/2 Ml Inj) 4 mg IV NOW ONE Stop: 06/13/24 14:08 Last Admin: 06/13/24 14:10 Dose: 4 mg Documented By: RANDI Vital Signs Vital signs: Vital Signs - 8 hr 06/13/24 13:10 06/13/24 13:21 06/13/24 13:30 Temperature 97.2 F L Pulse Rate 92 H 100 H 100 H Respiratory Rate 16 17 Blood Pressure 135/79 Pulse Oximetry 97 95 97 Oxygen Delivery Method Room Air 06/13/24 14:00 06/13/24 14:01 06/13/24 14:01 Temperature Pulse Rate 97 H 95 H Respiratory Rate 22 19 Blood Pressure 136/85 Pulse Oximetry 96 96 Oxygen Delivery Method 06/13/24 14:30 06/13/24 14:30 06/13/24 15:00 Temperature Pulse Rate 92 H Respiratory Rate 18 Blood Pressure 137/81 127/81 Pulse Oximetry 94 Oxygen Delivery Method Room Air 06/13/24 15:00 06/13/24 15:30 06/13/24 15:30 Temperature Pulse Rate 93 H 92 H Respiratory Rate 17 18 Blood Pressure 122/75 Pulse Oximetry 95 94 Oxygen Delivery Method Room Air 06/13/24 16:00 06/13/24 16:00 06/13/24 16:30 Temperature Pulse Rate 87 Respiratory Rate 17 Blood Pressure 128/61 132/70 Pulse Oximetry 93 Oxygen Delivery Method 06/13/24 16:30 06/13/24 17:13 06/13/24 17:30 Temperature Pulse Rate 94 H 88 91 H Respiratory Rate 15 16 Blood Pressure Pulse Oximetry 96 95 94 Oxygen Delivery Method Room Air MDM - Chest Pain Lab Data 06/13/24 13:40 06/13/24 13:40 Labs: Lab Results 06/13/24 Range/Units 13:40 WBC 3.9 L (4.5-11.0) X10^3/uL RBC 4.96 (4.0-5.2) X10^6/uL Hgb 14.1 (12.0-16.0) g/dL Hct 42.9 (36-46) % MCV 86.5 (80-100) fL MCH 28.4 (26-34) PG MCHC 32.8 (30-36) % RDW 14.3 (11.6-14.8) % Plt Count 203 (150-400) X10^3/uL Neut % (Auto) 65.7 (50-75) % Lymph % (Auto) 24.7 L (25-40) % [place] % (Auto) 7.5 (3-14) % Eos % (Auto) 1.6 L (2-4) % Baso % (Auto) 0.5 (0-2) % Neut # (Auto) 2500 (6944-7335) /uL Lymph # (Auto) 1000 L (3159-3033) /uL [place] # (Auto) 300 (0-900) /uL Eos # (Auto) 100 (0-450) /uL Baso # (Auto) 0 (0-100) /uL PT 11.4 (9.4-12.5) SECONDS INR 1.0 (0.9-1.3) APTT 37 H (25.1-36.5) SECONDS Sodium 144 (137-145) mmol/L Potassium 3.9 (3.4-5.1) mmol/L Chloride 103 (98-107) mmol/L Carbon Dioxide 36 H (22-32) mmol/L BUN 6 L (7-17) mg/dL Creatinine 0.69 (0.52-1.04) mg/dL Estimated GFR > 60 (>60) mL/min BUN/Creatinine Ratio 8.7 (6-22) Glucose 112 H (70-100) mg/dL Calcium 9.2 (8.4-10.2) mg/dL Magnesium 2.2 (1.6-2.3) mg/dL Total Bilirubin 0.3 (0.2-1.3) mg/dL AST 29 (14-36) IU/L ALT 26 (<35) IU/L Alkaline Phosphatase 60 (38-126) U/L Total Creatine Kinase 119 (30-135) U/L Troponin I < 0.012 (0.01-0.034) ng/mL NT-Pro-B Natriuret Pep 161 H (<125) pg/mL Total Protein 7.9 (6.3-8.2) g/dL Albumin 4.3 (3.5-5.0) g/dL Globulin 3.6 (1.7-4.1) g/dL Albumin/Globulin Ratio 1.2 (1.0-2.8) Lipase 51 (23-300) U/L Imaging Data Chest x-ray: Radiologist's Impression: PROCEDURE: XR CHEST 1V INDICATIONS: chest pain TECHNIQUE: One view of the chest was acquired. COMPARISON: [facility], CR, XR CHEST 1V, 12/14/2023, 23:27. FINDINGS: Surgical changes and devices: None. Lungs and pleura: Mild pulmonary vascular congestion is seen. No definite focal infiltrate. No pleural effusions or pneumothorax. Mediastinum: Mediastinal contours appear normal. Heart size is normal. Bones and chest wall: No suspicious bony lesions. Overlying soft tissues appear unremarkable. IMPRESSION: Mild congestion. No definite focal infiltrate. No pleural effusion or pneumothorax. Dictated by: Lambert King M.D. on 06/13/2024 at 14:07 CT scan - chest: Radiologist's Impression: PROCEDURE: CT ANGIO CHEST PE PROTOCOL INDICATIONS: hx pe with sob TECHNIQUE: After the administration of intravenous contrast, 2 mm thick sections acquired from the pulmonary apices to the posterior costophrenic angles. 3-dimensional maximum intensity projection (MIP) coronal and sagittal reformats were then acquired through the thorax. For radiation dose reduction, the following was used: automated exposure control, adjustment of mA and/or kV according to patient size. COMPARISON: [facility], CT, CT ANGIO CHEST PE PROTOCOL, 10/08/2023, 19:57. FINDINGS: Image quality: Diagnostic. Pulmonary arteries: Pulmonary arteries are normal in size, and demonstrate no intraluminal filling defects to suggest central pulmonary embolism. Lower Neck: No enlarged lymph nodes. Thyroid: No thyroid nodules which require sonographic follow up, per consensus guidelines. Axillae: No enlarged lymph nodes. Chest Wall: Unremarkable. Bones: Unremarkable. Lungs and Pleura: Trace bilateral pleural effusions, left greater than right. Ground-glass consolidative opacities within the left lower lobe and to a lesser extent the left upper lobe. Heart: Heart size is normal. No pericardial effusion. Thoracic Vessels: No aortic aneurysm. Mediastinum and Kristine: No enlarged lymph nodes. Esophagus: No wall thickening. No hiatal hernia. Upper Abdomen: Visualized upper abdomen solid organs and bowel loops appear normal. IMPRESSION: No pulmonary embolus. Ground-glass consolidative opacities within the left lower lobe and to a lesser extent the left upper lobe. Findings are consistent with infection. Trace bilateral pleural effusions, left greater than right. Dictated by: Justin Hernandez M.D. on 06/13/2024 at 17:20 ECG Data Attestation: I personally reviewed and interpreted this ECG as follows: Prior ECG tracings: available for review Interpretation: Sinus rhythm rate 91 ME interval 144 QRS 118 QTC 4 7 right bundle-branch block noted similar to previous EKGs MDM Narrative Medical decision making narrative: MDM CC: Cough shortness of breath chest pain Complicating co-morbidities: Prior history of pulmonary embolism Corroborating data: [ ] Data collected from: [ ] Medical records reviewed: Previous visits Differential considered: Pneumonia pulmonary embolism congestive heart failure acute coronary syndrome Exam documented above, pertinent findings include: 43-year-old female appears to not feel well she is some mild crackles baseline no significant respiratory distress or wheezing no peripheral edema Lab Test results independently reviewed as above. Pertinent findings: WBCs 3.9 rise stable and normal Cm he does not show clinical significant electrolyte abnormalities no evidence of WOJCIECH Troponin negative BNP 161 Independently reviewed EKG as above Sinus rhythm right bundle-branch block similar to previous EKGs Imaging studies independently reviewed: Chest x-ray congestion CT ruled out pulmonary embolism but does show left upper lobe ground-glass opacity Consultations: None Treatments: Amoxicillin and azithromycin Discussion: Patient is a 43-year-old female history of multiple recurrent pulmonary embolisms but taking Xarelto has a known diagnosis of influenza but presenting today with ongoing cough. She slightly clammy on exam no significant respiratory distress blood work is overall reassuring. Suspect an underlying pneumonia. CT does show some ground-glass opacities consistent with pneumonia. No concern for sepsis at this time. He was given p.o. antibiotics Discharge Plan Departure Patient Disposition: Home Clinical Impression: Pneumonia Instructions: DI for Pneumonia -- Adult Activity Restrictions/Additional Instructions: *You have been diagnosed with pneumonia *What to do: At this time blood work today is overall reassuring. Your CT scan does show evidence of pneumonia *Continue to take medications as directed Amoxicillin 1000 mg 3 times a day for 5 days Azithromycin take as directed *Follow up with your primary care provider in 2-3 days or call [phone] *Return to ER if you should have increasing shortness of breath chest pain confusion or any new, worsening or concerning symptoms Prescriptions: New amoxicillin 500 mg capsule 1,000 mg PO TID 5 Days Qty: 30 0RF azithromycin 250 mg tablet See Rx Instructions PO .COMPLEX Qty: 6 0RF Rx Instructions: For 250 mg dose pack: take 500 mg today (day 1), then 250 mg for 4 days (days 2-5) No Action furosemide 40 mg tablet See Rx Instructions PO BID Qty: 225 3RF Patient Comments: 60mg BID Rx Instructions: orally twice a day; 60mg (1.5 tab) every morning and 40mg (1 tab) in the evening scopolamine base 1 mg over 3 days patch 3 day 1 patch transdermal Q3D PRN (Reason: dizziness) Qty: 24 3RF ferrous sulfate 325 mg (65 mg iron) tablet 325 mg PO DAILY docusate sodium [Col-Rite] 250 mg capsule 250 mg PO BID vitamin B complex Tablet 1 tab PO DAILY aripiprazole 30 mg tablet 30 mg PO BEDTIME Qty: 90 3RF Rx Instructions: Take one 30mg tablet by mouth daily levalbuterol tartrate 45 mcg/actuation HFA aerosol inhaler 1 puff inhalation Q4-6H PRN (Reason: shortness of breath or wheezing) Qty: 15 2RF magnesium oxide 400 mg (241.3 mg magnesium) tablet 400 mg PO DAILY Qty: 30 0RF (DME) lancets See Rx Instructions .Route .MEDSUPPLY Qty: 100 3RF Rx Instructions: to test blood glucose daily spironolactone 25 mg tablet 12.5 mg PO DAILY Qty: 45 3RF (DME) Dexcom G6 Assistant Professor Of Nursing Misc See Rx Instructions .Route Qty: 1 0RF Rx Instructions: As directed terazosin 2 mg capsule 2 mg PO QPM Qty: 90 0RF (DME) glucose monitor See Rx Instructions .Route .MEDSUPPLY Qty: 1 0RF Rx Instructions: To test blood glucose daily (DME) Dexcom G6 Transmitter Device See Rx Instructions .ROUTE .COMPLEX Qty: 1 3RF Dose Instruction: USE DIRECTED. Rx Instructions: USE DIRECTED. (DME) Dexcom G6 Sensor Device See Rx Instructions .ROUTE .COMPLEX Qty: 3 3RF Dose Instruction: USE DIRECTED. Rx Instructions: USE DIRECTED. (DME) glucose test strips See Rx Instructions .Route .MEDSUPPLY Qty: 100 3RF Rx Instructions: To test blood glucose daily (DME) pen needle, diabetic [BD Monika 2nd Gen Pen Needle] 32 gauge x 5/32 needle See Rx Instructions .ROUTE .COMPLEX Qty: 100 0RF Dose Instruction: USE WITH LEVEMIR DAILY DIRECTED Rx Instructions: USE WITH LEVEMIR DAILY DIRECTED levothyroxine 25 mcg tablet 25 mcg PO DAILY Qty: 90 3RF budesonide-formoterol [Symbicort] 160-4.5 mcg/actuation HFA aerosol inhaler 2 puff inhalation BID Qty: 10.2 2RF pregabalin 300 mg capsule 300 mg PO BID Qty: 180 3RF Rx Instructions: take 1 capsule by mouth twice a day Xarelto 20 mg tablet 20 mg PO DAILY Qty: 90 3RF Mounjaro 5 mg/0.5 mL pen injector 5 mg SUBCUT QWEEK Qty: 2 3RF Jardiance 10 mg tablet 10 mg PO DAILY Qty: 30 2RF insulin glargine-yfgn 100 unit/mL (3 mL) insulin pen 35 unit SUBCUT QPM Qty: 15 2RF omeprazole 20 mg capsule,delayed release(DR/EC) 20 mg PO BID Qty: 180 0RF metformin 500 mg tablet 1,000 mg PO BID Qty: 120 0RF bupropion HCl 300 mg tablet extended release 24 hr 300 mg PO QAM Qty: 90 3RF cyclobenzaprine 10 mg tablet 10 mg PO 3XD PRN (Reason: for muscle spasm) Qty: 90 0RF Atrovent HFA 17 mcg/actuation HFA aerosol inhaler 1 puff PO Q8H Qty: 12.9 0RF ascorbic acid (vitamin C) 500 mg tablet 500 mg PO DAILY potassium gluconate 595 mg (99 mg) tablet 595 mg PO DAILY (DME) True Metrix Glucose Test Strip Strip See Rx Instructions .ROUTE DAILY Qty: 10 Rx Instructions: As directed (DME) lancets [Micro Thin Lancets] 33 gauge misc See Rx Instructions .ROUTE DAILY Qty: 100 Rx Instructions: As directed ketoconazole 2 % shampoo topical triamcinolone acetonide 0.1 % cream 1 applic topical acetaminophen [Tylenol Extra Strength] 500 mg tablet 1,000 mg PO Q6H PRN (DME) blood-glucose meter [True Metrix Glucose Meter] Misc See Rx Instructions .ROUTE DAILY Qty: 1 Rx Instructions: As directed metoprolol succinate 50 mg tablet extended release 24 hr 50 mg PO BID Referrals: Alejandra Lynch MD [Primary Care Provider] - Stand Alone Forms: Patient Portal/API/Survey
--- NOTE | 2024-06-13 16:41 | DI.CT.S_ITS ---
PROCEDURE: CT ANGIO CHEST PE PROTOCOL INDICATIONS: hx pe with sob TECHNIQUE: After the administration of intravenous contrast, 2 mm thick sections acquired from the pulmonary apices to the posterior costophrenic angles. 3-dimensional maximum intensity projection (MIP) coronal and sagittal reformats were then acquired through the thorax. For radiation dose reduction, the following was used: automated exposure control, adjustment of mA and/or kV according to patient size. COMPARISON: [facility], CT, CT ANGIO CHEST PE PROTOCOL, 10/08/2023, 19:57. FINDINGS: Image quality: Diagnostic. Pulmonary arteries: Pulmonary arteries are normal in size, and demonstrate no intraluminal filling defects to suggest central pulmonary embolism. Lower Neck: No enlarged lymph nodes. Thyroid: No thyroid nodules which require sonographic follow up, per consensus guidelines. Axillae: No enlarged lymph nodes. Chest Wall: Unremarkable. Bones: Unremarkable. Lungs and Pleura: Trace bilateral pleural effusions, left greater than right. Ground-glass consolidative opacities within the left lower lobe and to a lesser extent the left upper lobe. Heart: Heart size is normal. No pericardial effusion. Thoracic Vessels: No aortic aneurysm. Mediastinum and Kristine: No enlarged lymph nodes. Esophagus: No wall thickening. No hiatal hernia. Upper Abdomen: Visualized upper abdomen solid organs and bowel loops appear normal. IMPRESSION: No pulmonary embolus. Ground-glass consolidative opacities within the left lower lobe and to a lesser extent the left upper lobe. Findings are consistent with infection. Trace bilateral pleural effusions, left greater than right. Dictated by: Justin Hernandez M.D. on 06/13/2024 at 17:20 Approved by: Justin Hernandez M.D. on 06/13/2024 at 17:25
[2024-06-13] MEDS: AZITHROMYCIN 250 MG TABLET 500 MG PO (17:52)
[2024-06-13] MEDS: AMOXICILLIN 250 MG CAPSULE 1000 MG PO (17:53)
== END 2024-06-13 18:18 | disposition home or self-care (01) ==
PROVIDERS: Emergency Provider Emergency Medicine; Family Provider Family Medicine; PCP Family Medicine
DX: J18.9 Pneumonia, unspecified organism (principal); R07.9 Chest pain, unspecified; Z79.01 Long term (current) use of anticoagulants
CPT/HCPCS: 36415; 71045; 71275; 80053; 82550; 83690; 83735; 83880; 84484; 85025; 85610; 85730; 93005; 96374; 99284; J2405; Q9967

== ENCOUNTER 2024-08-01 04:44 | Emergency (ER) | payer OTHER, MEDICARE, SELFPAY ==
[2024-01-19 14:23] VITALS: BMI 50.6
[2024-08-01] VITALS (20 sets, daily range): BP systolic 96–144; BP diastolic 54–89; PULSE 87–99; RESP 11–38; O2SAT 92–97
--- NOTE | 2024-08-01 04:46 | DI.RAD.S_ITS ---
PROCEDURE: XR CHEST 1V INDICATIONS: chest pain TECHNIQUE: One view of the chest was acquired. COMPARISON: [facility], CR, XR CHEST 1V, 06/13/2024, 13:22. [facility], CR, XR CHEST 1V, 12/14/2023, 23:27. FINDINGS AND IMPRESSION: No consolidation or pleural effusion on this single view study. Cardiomegaly and prominent mediastinal contours, unchanged but indeterminate on radiography. Unremarkable osseous structures where visualized. No significant discrepancy from the preliminary report. Dictated by: Charlie Pritchard M.D. on 08/01/2024 at 8:08 Approved by: Charlie Pritchard M.D. on 08/01/2024 at 8:09
--- NOTE | 2024-08-01 04:48 | ED_ITS ---
HPI - General Adult <Dong Hill MD - Last Filed: 08/01/24 11:33> General Chief complaint: Chest Pain Stated complaint: chest pain Time Seen by Provider: 08/01/24 04:46 History of Present Illness HPI narrative: 43-year-old female with chart history of psychogenic nonepileptic seizures, anxiety, depression, alcohol abuse, opiate use, fibromyalgia, asthma, diabetes, pulmonary embolism, brought in by ambulance for complaint of chest pain, with altered mental status per family members, no trauma known, no overdose or intent for self-harm known. Related Data Home Medications Medication Instructions Recorded Confirmed ascorbic acid (vitamin C) 500 mg 500 mg PO DAILY 07/28/22 07/12/24 tablet potassium gluconate 595 mg (99 mg) 595 mg PO DAILY 07/28/22 07/12/24 tablet docusate sodium 250 mg capsule 250 mg PO BID 12/03/22 07/12/24 (Col-Rite) ferrous sulfate 325 mg (65 mg 325 mg PO DAILY 12/03/22 07/12/24 iron) tablet vitamin B complex 1 tab PO DAILY 12/03/22 07/12/24 acetaminophen 500 mg tablet 1,000 mg PO Q6H PRN 08/05/23 07/12/24 (Tylenol Extra Strength) blood sugar diagnostic (True #10 ea 08/05/23 07/12/24 Metrix Glucose Test Strip) ketoconazole 2 % shampoo topical 08/05/23 07/12/24 lancets 33 gauge (Micro Thin #100 ea 08/05/23 07/12/24 Lancets) triamcinolone acetonide 0.1 % 1 applic topical 08/05/23 07/12/24 topical cream blood-glucose meter (True Metrix #1 ea 02/03/24 07/12/24 Glucose Meter) metoprolol succinate 50 mg 50 mg PO BID 02/03/24 07/12/24 tablet,extended release 24 hr alprazolam 0.5 mg tablet mg PO 06/29/24 07/12/24 amoxicillin 500 mg capsule 1,000 mg PO 3XD 06/29/24 07/12/24 hyoscyamine sulfate 0.125 mg 0.125 mg sublingual Q4H PRN muscle 06/29/24 07/12/24 sublingual tablet spasm metoprolol succinate 25 mg mg PO DAILY 06/29/24 07/12/24 tablet,extended release 24 hr polyethylene glycol 3350 17 g PO 06/29/24 07/12/24 gram/dose oral powder Previous Rx's Medication Instructions Recorded levalbuterol tartrate 45 1 puff inhalation Q4-6H PRN 01/22/22 mcg/actuation aerosol inhaler shortness of breath or wheezing #15 grams magnesium oxide 400 mg (241.3 mg 400 mg PO DAILY #30 tabs 07/18/22 magnesium) tablet lancets #100 ea 12/01/22 furosemide 40 mg tablet See Rx Instructions PO BID #225 10/14/23 tabs scopolamine base 1 mg over 3 days 1 patch transdermal Q3D PRN 10/14/23 transdermal patch dizziness #24 ea terazosin 2 mg capsule 2 mg PO QPM #90 caps 10/23/23 glucose monitor #1 ea 12/28/23 glucose test strips #100 ea 12/28/23 levothyroxine 25 mcg tablet 25 mcg PO DAILY #90 tabs 01/26/24 pregabalin 300 mg capsule 300 mg PO BID #180 caps 02/26/24 rivaroxaban 20 mg tablet (Xarelto) 20 mg PO DAILY #90 tabs 02/26/24 tirzepatide 5 mg/0.5 mL 5 mg (0.5 mL) SUBCUT QWEEK #2 mL 02/29/24 subcutaneous pen injector (Keith) aripiprazole 30 mg tablet 30 mg PO BEDTIME #90 tabs 04/20/24 omeprazole 20 mg capsule,delayed 20 mg PO BID #180 caps 04/25/24 release metformin 500 mg tablet 1,000 mg (2 x 500 mg) PO BID #120 04/27/24 tabs bupropion HCl 300 mg 24 hr tablet, 300 mg PO QAM #90 tabs 05/02/24 extended release ipratropium bromide 17 1 puff PO Q8H #12.9 grams 05/27/24 mcg/actuation HFA aerosol inhaler (Atrovent HFA) insulin glargine-yfgn 100 unit/mL 25 unit (0.25 mL) SUBCUT QPM #15 mL 06/29/24 (3 mL) subcutaneous pen empagliflozin 10 mg tablet 10 mg PO DAILY #30 tabs 02/07/25 (Jardiance) albuterol sulfate 90 mcg/actuation 2 puff inhalation Q6H PRN 07/12/24 aerosol inhaler shortness of breath or wheezing #8.5 grams budesonide-formoterol HFA 160 2 puff inhalation BID #10.2 grams 07/15/24 mcg-4.5 mcg/actuation aerosol inhaler (Symbicort) pen needle, diabetic 32 gauge x #100 ea 07/15/24/32 (Sure Comfort Pen Needle) fluticasone propionate 115 2 puff inhalation BID #12 grams 07/22/24 mcg-salmeterol 21 mcg/actuation HFA inhaler (Advair HFA) cyclobenzaprine 10 mg tablet 10 mg PO 3XD PRN for muscle spasm 07/27/24 #90 tabs spironolactone 25 mg tablet 12.5 mg (1/2 x 25 mg) PO DAILY #45 07/27/24 tabs Allergies Allergy/AdvReac Type Severity Reaction Status Date / Time carisoprodol [CARISOPRODOL] AdvReac Severe urinary Verified 07/12/24 11:30 retention fosphenytoin AdvReac Severe Seizures Verified 07/12/24 11:30 Latex, Natural Rubber AdvReac Mild Rash Verified 07/12/24 11:30 risperidone [From Risperdal] AdvReac urinary Verified 07/12/24 11:30 retention Patient History <Dong Hill MD - Last Filed: 08/01/24 11:33> Medical History Facet arthropathy, lumbar Cervical radiculopathy Nocturnal hypoxemia red cap associated with adverse incidents (~2011) 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 Hypoxia Sinus tachycardia RBBB (right bundle branch block) Tobacco abuse Psychogenic nonepileptic seizure Alcoholism DVT (deep venous thrombosis) Narcotic habituation, continuous Pulmonary embolism Morbid obesity LYLA (obstructive sleep apnea) Acetaminophen overdose of undetermined intent (12/2015) Suicide attempt Intraoperative cardiac arrest during non-cardiac surgery (11/2013) Ovarian cyst Plantar fasciitis 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 Cubital tunnel syndrome Status post laminectomy (12/14/15) Gastroesophageal reflux disease without esophagitis (03/02/15) Fibromyalgia (03/02/15) Tylenol overdose Obstipation Urinary retention Surgical History S/P lumbar spinal fusion H/O: hysterectomy Hx of toe surgery (05/16/20) History of carpal tunnel repair (~10/30/14) History of laminectomy (~09/2016) History of laminectomy History of colonoscopy History of esophagogastroduodenoscopy (EGD) History of lumbar spinal fusion (12/22/18) S/P epidural steroid injection (11/2013) Status post dilation and curettage (2008) Family History Grandfather Diabetes mellitus Family/Other Pancreatic cancer Social History household members: spouse Smoking Status: Former smoker alcohol intake: current eating out: 1-3 times/week Type(s) of exercise: normal ROM and activity and sedentary lifestyle Smoking Status: Former smoker tobacco type: cigarettes alcohol intake frequency: other Alcohol type: hard liquor Exam <Dong Hill MD - Last Filed: 08/01/24 11:33> Narrative Exam Narrative: GENERAL: Well-developed patient, in mild distress. HEAD: Atraumatic. Normocephalic. EYES: Pupils equal round and reactive. Extraocular motions intact. No scleral icterus. No injection or drainage. ENT: Nose without bleeding, purulent drainage. Throat without erythema, tonsillar hypertrophy or exudate. Airway patent. NECK: Trachea midline. Non tender CARDIOVASCULAR: Regular rate and rhythm without murmurs, gallops, or rubs. RESPIRATORY: Clear to auscultation. Breath sounds equal bilaterally. No wheezes, rales, or rhonchi. GASTROINTESTINAL: Abdomen soft, non-tender, nondistended. EXTREMITIES: No edema or joint tenderness. BACK: Nontender without deformity or crepitance. No flank tenderness. NEURO: As eyes closed, does not open eyes to command, with attempted opening of eyes she seems to resist opening her eyes. SKIN: No rash or erythema of visible areas Initial Vital Signs Initial Vital Signs: Vital Signs Pulse Rate 97 H 08/01/24 04:49 Respiratory Rate 16 08/01/24 04:49 Blood Pressure 144/89 H 08/01/24 04:49 Pulse Oximetry 94 08/01/24 04:49 Oxygen Delivery Method Room Air 08/01/24 04:49 <Kristen Martinez DO - Last Filed: 08/01/24 09:31> Initial Vital Signs Initial Vital Signs: Vital Signs Pulse Rate 97 H 08/01/24 04:49 Respiratory Rate 16 08/01/24 04:49 Blood Pressure 144/89 H 08/01/24 04:49 Pulse Oximetry 94 08/01/24 04:49 Oxygen Delivery Method Room Air 08/01/24 04:49 Course <Dong Hill MD - Last Filed: 08/01/24 11:33> Orders Ordered: ED Orders 08/01/24 04:46 XR chest 1V Stat EKG-12 Lead Stat 08/01/24 04:47 Arterial Blood Gas STAT 08/01/24 04:57 Acetaminophen Stat BNP [NT-proBNP (BNP-Adult 18+)] Stat Complete Blood Count AUTO DIFF Stat Comprehensive Metabolic Panel Stat Ethanol (ETOH) Stat HCG Quantitative /Beta subunit Stat Lactate (Lactic Acid) Stat Lipase Stat Salicylate Stat Troponin & CK Cardiac Panel Stat 08/01/24 05:40 CT angio chest PE protocol Stat 08/01/24 07:05 Trop I [Troponin I] Stat 08/01/24 07:33 UA Complete [Urinalysis and Microscopic] Stat Urine Drug Screen, Rapid Stat Discontinued Medications Sodium Chloride (Normal Saline 0.9%) 1,000 mls @ 500 mls/hr IV BOLUS ONE Stop: 08/01/24 09:54 Last Admin: 08/01/24 07:57 Dose: Not Given Documented By: RANDI Sodium Chloride (Normal Saline 0.9%) 1,000 mls @ 1,000 mls/hr IV BOLUS ONE Stop: 08/01/24 08:56 Last Infusion: 08/01/24 09:09 Dose: Infused Documented By: Admin: 08/01/24 07:55 Dose: 1,000 mls/hr Documented By: RANDI Vital Signs Vital signs: Vital Signs - 8 hr 08/01/24 04:49 08/01/24 04:52 08/01/24 05:00 Pulse Rate 97 H 97 H Respiratory Rate 16 Blood Pressure 144/89 H 134/86 Pulse Oximetry 94 95 Oxygen Delivery Method Room Air 08/01/24 05:00 08/01/24 05:30 08/01/24 05:31 Pulse Rate 97 H 96 H 99 H Respiratory Rate 30 H 38 H 36 H Blood Pressure Pulse Oximetry 93 97 92 Oxygen Delivery Method 08/01/24 05:31 08/01/24 06:11 08/01/24 06:12 Pulse Rate 93 H Respiratory Rate 22 Blood Pressure 107/70 118/63 Pulse Oximetry 96 Oxygen Delivery Method 08/01/24 06:12 08/01/24 06:30 08/01/24 06:30 Pulse Rate 93 H 91 H Respiratory Rate 19 21 Blood Pressure 98/65 Pulse Oximetry 96 95 Oxygen Delivery Method 08/01/24 07:00 08/01/24 07:00 08/01/24 07:30 Pulse Rate 91 H 95 H Respiratory Rate 20 22 Blood Pressure 96/55 L Pulse Oximetry 94 Oxygen Delivery Method 08/01/24 07:45 08/01/24 07:45 08/01/24 08:00 Pulse Rate 88 88 Respiratory Rate 16 20 Blood Pressure 103/64 Pulse Oximetry 96 95 Oxygen Delivery Method Room Air Room Air 08/01/24 08:00 08/01/24 08:30 08/01/24 08:30 Pulse Rate 90 Respiratory Rate 20 Blood Pressure 97/54 L 96/64 Pulse Oximetry 96 Oxygen Delivery Method 08/01/24 08:44 08/01/24 08:44 08/01/24 08:57 Pulse Rate 89 Respiratory Rate 21 Blood Pressure 102/59 L 109/62 Pulse Oximetry 96 Oxygen Delivery Method Room Air 08/01/24 08:57 08/01/24 09:00 08/01/24 09:00 Pulse Rate 91 H 87 Respiratory Rate 18 Blood Pressure 109/55 L Pulse Oximetry 96 95 Oxygen Delivery Method Room Air 08/01/24 09:10 08/01/24 09:10 08/01/24 09:20 Pulse Rate 88 90 Respiratory Rate 16 18 Blood Pressure 107/59 L Pulse Oximetry 95 96 Oxygen Delivery Method 08/01/24 09:20 08/01/24 09:30 08/01/24 09:30 Pulse Rate 87 Respiratory Rate 13 Blood Pressure 104/58 L 105/60 Pulse Oximetry 96 Oxygen Delivery Method Room Air 08/01/24 09:40 08/01/24 09:40 Pulse Rate 87 Respiratory Rate 11 L Blood Pressure 108/61 Pulse Oximetry 97 Oxygen Delivery Method Room Air <Kristen Martinez, - Last Filed: 08/01/24 09:31> Orders Ordered: ED Orders 08/01/24 04:46 XR chest 1V Stat EKG-12 Lead Stat 08/01/24 04:47 Arterial Blood Gas STAT 08/01/24 04:57 Acetaminophen Stat BNP [NT-proBNP (BNP-Adult 18+)] Stat Complete Blood Count AUTO DIFF Stat Comprehensive Metabolic Panel Stat Ethanol (ETOH) Stat HCG Quantitative /Beta subunit Stat Lactate (Lactic Acid) Stat Lipase Stat Salicylate Stat Troponin & CK Cardiac Panel Stat 08/01/24 05:40 CT angio chest PE protocol Stat 08/01/24 07:05 Trop I [Troponin I] Stat 08/01/24 07:33 UA Complete [Urinalysis and Microscopic] Stat Urine Drug Screen, Rapid Stat Discontinued Medications Sodium Chloride (Normal Saline 0.9%) 1,000 mls @ 500 mls/hr IV BOLUS ONE Stop: 08/01/24 09:54 Last Admin: 08/01/24 07:57 Dose: Not Given Documented By: RANDI Sodium Chloride (Normal Saline 0.9%) 1,000 mls @ 1,000 mls/hr IV BOLUS ONE Stop: 08/01/24 08:56 Last Infusion: 08/01/24 09:09 Dose: Infused Documented By: Admin: 08/01/24 07:55 Dose: 1,000 mls/hr Documented By: RANDI Vital Signs Vital signs: Vital Signs - 8 hr 08/01/24 04:49 08/01/24 04:52 08/01/24 05:00 Pulse Rate 97 H 97 H Respiratory Rate 16 Blood Pressure 144/89 H 134/86 Pulse Oximetry 94 95 Oxygen Delivery Method Room Air 08/01/24 05:00 08/01/24 05:30 08/01/24 05:31 Pulse Rate 97 H 96 H 99 H Respiratory Rate 30 H 38 H 36 H Blood Pressure Pulse Oximetry 93 97 92 Oxygen Delivery Method 08/01/24 05:31 08/01/24 06:11 08/01/24 06:12 Pulse Rate 93 H Respiratory Rate 22 Blood Pressure 107/70 118/63 Pulse Oximetry 96 Oxygen Delivery Method 08/01/24 06:12 08/01/24 06:30 08/01/24 06:30 Pulse Rate 93 H 91 H Respiratory Rate 19 21 Blood Pressure 98/65 Pulse Oximetry 96 95 Oxygen Delivery Method 08/01/24 07:00 08/01/24 07:00 08/01/24 07:30 Pulse Rate 91 H 95 H Respiratory Rate 20 22 Blood Pressure 96/55 L Pulse Oximetry 94 Oxygen Delivery Method 08/01/24 07:45 08/01/24 07:45 08/01/24 08:00 Pulse Rate 88 88 Respiratory Rate 16 20 Blood Pressure 103/64 Pulse Oximetry 96 95 Oxygen Delivery Method Room Air Room Air 08/01/24 08:00 08/01/24 08:30 08/01/24 08:30 Pulse Rate 90 Respiratory Rate 20 Blood Pressure 97/54 L 96/64 Pulse Oximetry 96 Oxygen Delivery Method 08/01/24 08:44 08/01/24 08:44 08/01/24 08:57 Pulse Rate 89 Respiratory Rate 21 Blood Pressure 102/59 L 109/62 Pulse Oximetry 96 Oxygen Delivery Method Room Air 08/01/24 08:57 08/01/24 09:00 08/01/24 09:00 Pulse Rate 91 H 87 Respiratory Rate 18 Blood Pressure 109/55 L Pulse Oximetry 96 95 Oxygen Delivery Method Room Air 08/01/24 09:10 08/01/24 09:10 08/01/24 09:20 Pulse Rate 88 90 Respiratory Rate 16 18 Blood Pressure 107/59 L Pulse Oximetry 95 96 Oxygen Delivery Method 08/01/24 09:20 08/01/24 09:30 08/01/24 09:30 Pulse Rate 87 Respiratory Rate 13 Blood Pressure 104/58 L 105/60 Pulse Oximetry 96 Oxygen Delivery Method Room Air 08/01/24 09:40 08/01/24 09:40 Pulse Rate 87 Respiratory Rate 11 L Blood Pressure 108/61 Pulse Oximetry 97 Oxygen Delivery Method Room Air Medical Decision Making <Dong Hill MD - Last Filed: 08/01/24 11:33> Lab Data Lab results reviewed: Yes I reviewed the patient's lab results. Lab results narrative: White blood cell count 5800, hemoglobin 13.9, platelets 236,000. Glucose 182. BUN 14 with creatinine 0.78 normal. Electrolytes unremarkable. Serum CO2 27. ABG pH 7.39, pCO2 45, PaO2 76. Liver functions and lipase normal. HCG negative. Troponin negative/unmeasurable. Ethanol, acetaminophen, salicylate levels negative. UA pending. UDS pending. 08/01/24 04:57 08/01/24 04:57 Labs: Lab Results 08/01/24 08/01/24 08/01/24 Range/Units 04:57 05:01 07:05 WBC 5.8 (4.5-11.0) X10^3/uL RBC 4.80 (4.0-5.2) X10^6/uL Hgb 13.9 (12.0-16.0) g/dL Hct 41.8 (36-46) % MCV 87.0 (80-100) fL MCH 29.1 (26-34) PG MCHC 33.4 (30-36) % RDW 14.2 (11.6-14.8) % Plt Count 236 (150-400) X10^3/uL Neut % (Auto) 59.1 (50-75) % Lymph % (Auto) 31.2 (25-40) % Roberts % (Auto) 7.9 (3-14) % Eos % (Auto) 1.3 L (2-4) % Baso % (Auto) 0.5 (0-2) % Neut # (Auto) 3400 (6590-4835) /uL Lymph # (Auto) 1800 (3129-7025) /uL Roberts # (Auto) 500 (0-900) /uL Eos # (Auto) 100 (0-450) /uL Baso # (Auto) 0 (0-100) /uL ABG Sample Site Right radial ABG pH 7.39 (7.35-7.45) ABG pCO2 45.5 H (35-45) mmHg ABG pO2 76 L (80-100) mmHg ABG HCO3 28 H (23-27) mmol/L ABG Total CO2 27 (23-27) mmol/L ABG O2 Saturation 95 (95-100) % ABG Base Excess 1.9 (-2-3) mmol/L Andrew Test N/a FiO2 % 21.0 % % Sodium 141 (137-145) mmol/L Potassium 3.8 (3.4-5.1) mmol/L Chloride 102 (98-107) mmol/L Carbon Dioxide 27 (22-32) mmol/L BUN 14 (7-17) mg/dL Creatinine 0.78 (0.52-1.04) mg/dL Estimated GFR > 60 (>60) mL/min BUN/Creatinine Ratio 17.9 (6-22) Glucose 182 H (70-100) mg/dL Lactate 1.7 (0.7-2.1) mmol/L Calcium 9.8 (8.4-10.2) mg/dL Total Bilirubin 0.4 (0.2-1.3) mg/dL AST 25 (14-36) IU/L ALT 21 (<35) IU/L Alkaline Phosphatase 65 (38-126) U/L Total Creatine Kinase 77 (30-135) U/L Troponin I < 0.012 < 0.012 (0.01-0.034) ng/mL NT-Pro-B Natriuret Pep 26 (<125) pg/mL Total Protein 8.1 (6.3-8.2) g/dL Albumin 4.6 (3.5-5.0) g/dL Globulin 3.5 (1.7-4.1) g/dL Albumin/Globulin Ratio 1.3 (1.0-2.8) Lipase 54 (23-300) U/L HCG, Quant < 2.39 mIU/mL Urine Color Urine Appearance Urine pH (4.5-8.0) Ur Specific [place] (1.000-1.035) Urine Protein (Negative) Urine Glucose (UA) (Negative) g/dL Urine Ketones (NEGATIVE) Urine Occult Blood (Negative) Urine Nitrate (Negative) Urine Bilirubin (NEGATIVE) Urine Urobilinogen (0.2) E.U./dL Ur Leukocyte Esterase (NEGATIVE) Urine RBC (0-5/HPF) Urine WBC (0-5/HPF) Ur Squamous Epith Cells (0-5/HPF) Urine Bacteria (None) Ur Culture Indicated? Vol Urine Centrifuged Salicylates < 1.0 (<20) mg/dL U Opiates 300ng/mL cut (Negative) Ur Oxycodone Screen (Negative) Urine Methadone Screen (Negative) Acetaminophen < 10 (10-30) ug/mL Ur Barbiturates Screen (Negative) U Tricyclic Antidepress (Negative) Ur Phencyclidine Scrn (Negative) Ur Amphetamines Screen (Negative) U Methamphetamines Scrn (Negative) Ur MDMA Scrn (Ecstasy) (Negative) U Benzodiazepines Scrn (Negative) Urine Cocaine Screen (Negative) U Marijuana (THC) Screen (Negative) Urine Specific [place] (Normal) Ethyl Alcohol < 10 ( - 10) mg/dL Ur Creatinine (Normal) 08/01/24 08/01/24 Range/Units 07:33 07:33 WBC (4.5-11.0) X10^3/uL RBC (4.0-5.2) X10^6/uL Hgb (12.0-16.0) g/dL Hct (36-46) % MCV (80-100) fL MCH (26-34) PG MCHC (30-36) % RDW (11.6-14.8) % Plt Count (150-400) X10^3/uL Neut % (Auto) (50-75) % Lymph % (Auto) (25-40) % Roberts % (Auto) (3-14) % Eos % (Auto) (2-4) % Baso % (Auto) (0-2) % Neut # (Auto) (5098-4852) /uL Lymph # (Auto) (4440-1319) /uL Roberts # (Auto) (0-900) /uL Eos # (Auto) (0-450) /uL Baso # (Auto) (0-100) /uL ABG Sample Site ABG pH (7.35-7.45) ABG pCO2 (35-45) mmHg ABG pO2 (80-100) mmHg ABG HCO3 (23-27) mmol/L ABG Total CO2 (23-27) mmol/L ABG O2 Saturation (95-100) % ABG Base Excess (-2-3) mmol/L Andrew Test FiO2 % % Sodium (137-145) mmol/L Potassium (3.4-5.1) mmol/L Chloride (98-107) mmol/L Carbon Dioxide (22-32) mmol/L BUN (7-17) mg/dL Creatinine (0.52-1.04) mg/dL Estimated GFR (>60) mL/min BUN/Creatinine Ratio (6-22) Glucose (70-100) mg/dL Lactate (0.7-2.1) mmol/L Calcium (8.4-10.2) mg/dL Total Bilirubin (0.2-1.3) mg/dL AST (14-36) IU/L ALT (<35) IU/L Alkaline Phosphatase (38-126) U/L Total Creatine Kinase (30-135) U/L Troponin I (0.01-0.034) ng/mL NT-Pro-B Natriuret Pep (<125) pg/mL Total Protein (6.3-8.2) g/dL Albumin (3.5-5.0) g/dL Globulin (1.7-4.1) g/dL Albumin/Globulin Ratio (1.0-2.8) Lipase (23-300) U/L HCG, Quant mIU/mL Urine Color Yellow Urine Appearance Clear Urine pH 6.0 Normal (4.5-8.0) Ur Specific [place] 1.020 (1.000-1.035) Urine Protein Negative (Negative) Urine Glucose (UA) 2+ H (Negative) g/dL Urine Ketones Negative (NEGATIVE) Urine Occult Blood Negative (Negative) Urine Nitrate Negative (Negative) Urine Bilirubin Negative (NEGATIVE) Urine Urobilinogen 0.2 (0.2) E.U./dL Ur Leukocyte Esterase Negative (NEGATIVE) Urine RBC None seen (0-5/HPF) Urine WBC None seen (0-5/HPF) Ur Squamous Epith Cells None seen (0-5/HPF) Urine Bacteria None seen (None) Ur Culture Indicated? Cult not indicated Vol Urine Centrifuged 10ml (spun) Salicylates (<20) mg/dL U Opiates 300ng/mL cut Negative (Negative) Ur Oxycodone Screen Negative (Negative) Urine Methadone Screen Negative (Negative) Acetaminophen (10-30) ug/mL Ur Barbiturates Screen Negative (Negative) U Tricyclic Antidepress Positive H (Negative) Ur Phencyclidine Scrn Negative (Negative) Ur Amphetamines Screen Negative (Negative) U Methamphetamines Scrn Negative (Negative) Ur MDMA Scrn (Ecstasy) Negative (Negative) U Benzodiazepines Scrn Negative (Negative) Urine Cocaine Screen Negative (Negative) U Marijuana (THC) Screen Negative (Negative) Urine Specific [place] Normal (Normal) Ethyl Alcohol ( - 10) mg/dL Ur Creatinine Normal (Normal) Point of Care Testing Glucose POC 189 Point of care testing: Point of Care Testing Glucose POC 189 ECG Data Attestation: I personally reviewed and interpreted this ECG as follows: Interpretation: Normal sinus rhythm with rate of 96, no obvious ST segment elevation or depression changes. Right bundle branch block present. AL 166, QRS 146, QTC 497. MDM Narrative Medical decision making narrative: 43-year-old female with history of pseudoseizures, anxiety, depression, fibromyalgia, substance abuse, diabetes, morbid obesity, obstructive sleep apnea, asthma, prior pulmonary embolus no longer on blood thinner medications, presenting with complaint of chest pain, seemed to have altered mental status per EMS, normal blood sugar in the field, blood glucose here 189 on arrival here, seems to have volitional closing of her eyes, not cooperative with commands for movement, though intermittently with verbally answer questions with one word or short phrase answers. BGM 189. ABG on arrival pH 7.39 noted. No obvious trauma to scalp head face neck torso extremities. 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 Chest x-ray unremarkable, ED wet read. Chest x-ray single view. Impression: ?No acute cardiopulmonary abnormality is identified. ? See teleradiology report Lab data: White blood cell count 5800, hemoglobin 13.9, platelets [id number]. Glucose 182. BUN 14 with creatinine 0.78 normal. Electrolytes unremarkable. Serum CO2 27. ABG pH 7.39, pCO2 45, PaO2 76. Liver functions and lipase normal. HCG negative. Troponin negative/unmeasurable. Ethanol, acetaminophen, salicylate levels negative. UA pending. UDS pending. CTA Chest performed, report pending. Records review, [facility] CTA Chest imaging reports: there are 9 CTA Chest study reports from 01/2019 through 05/2024, none confirm any pulmonary emboli. Most reports do not mention any pulmonary infiltrates, a couple mention ground-glass change left upper lobe, one mentioned patchy right middle lobe changes. 0630, patient alert looking around, calm, cooperative. Family member at bedside confirms history of previous pulmonary embolus, apparently 2018 diagnosed at [facility], when patient was transferred to [facility] for thrombectomy, is supposed to be taking Xarelto lifelong, has been off Xarelto for a few days awaiting spinal injection procedure to be done in [place] tomorrow. Await CTA chest report 0645, CT angiogram chest. Impressions: ?No pulmonary embolism identified given limitation of suboptimal contrast opacification of the pulmonary arteries. Question mild congestive heart failure.? See teleradiology report BNP 26 not elevated. Chest pain unclear etiology, follow up for spinal injection procedure tomorrow, resume Xarelto chronic anticoagulation after procedure as appropriate. Continue taking omeprazole antacid. Continue taking other chronic medications as prescribed. Further workup as an outpatient for now. <Kristen Martinez, - Last Filed: 08/01/24 09:31> Lab Data Labs: Lab Results 08/01/24 08/01/24 08/01/24 Range/Units 04:57 05:01 07:05 WBC 5.8 (4.5-11.0) X10^3/uL RBC 4.80 (4.0-5.2) X10^6/uL Hgb 13.9 (12.0-16.0) g/dL Hct 41.8 (36-46) % MCV 87.0 (80-100) fL MCH 29.1 (26-34) PG MCHC 33.4 (30-36) % RDW 14.2 (11.6-14.8) % Plt Count 236 (150-400) X10^3/uL Neut % (Auto) 59.1 (50-75) % Lymph % (Auto) 31.2 (25-40) % Roberts % (Auto) 7.9 (3-14) % Eos % (Auto) 1.3 L (2-4) % Baso % (Auto) 0.5 (0-2) % Neut # (Auto) 3400 (0071-7833) /uL Lymph # (Auto) 1800 (8756-5411) /uL Roberts # (Auto) 500 (0-900) /uL Eos # (Auto) 100 (0-450) /uL Baso # (Auto) 0 (0-100) /uL ABG Sample Site Right radial ABG pH 7.39 (7.35-7.45) ABG pCO2 45.5 H (35-45) mmHg ABG pO2 76 L (80-100) mmHg ABG HCO3 28 H (23-27) mmol/L ABG Total CO2 27 (23-27) mmol/L ABG O2 Saturation 95 (95-100) % ABG Base Excess 1.9 (-2-3) mmol/L Andrew Test N/a FiO2 % 21.0 % % Sodium 141 (137-145) mmol/L Potassium 3.8 (3.4-5.1) mmol/L Chloride 102 (98-107) mmol/L Carbon Dioxide 27 (22-32) mmol/L BUN 14 (7-17) mg/dL Creatinine 0.78 (0.52-1.04) mg/dL Estimated GFR > 60 (>60) mL/min BUN/Creatinine Ratio 17.9 (6-22) Glucose 182 H (70-100) mg/dL Lactate 1.7 (0.7-2.1) mmol/L Calcium 9.8 (8.4-10.2) mg/dL Total Bilirubin 0.4 (0.2-1.3) mg/dL AST 25 (14-36) IU/L ALT 21 (<35) IU/L Alkaline Phosphatase 65 (38-126) U/L Total Creatine Kinase 77 (30-135) U/L Troponin I < 0.012 < 0.012 (0.01-0.034) ng/mL NT-Pro-B Natriuret Pep 26 (<125) pg/mL Total Protein 8.1 (6.3-8.2) g/dL Albumin 4.6 (3.5-5.0) g/dL Globulin 3.5 (1.7-4.1) g/dL Albumin/Globulin Ratio 1.3 (1.0-2.8) Lipase 54 (23-300) U/L HCG, Quant < 2.39 mIU/mL Urine Color Urine Appearance Urine pH (4.5-8.0) Ur Specific [place] (1.000-1.035) Urine Protein (Negative) Urine Glucose (UA) (Negative) g/dL Urine Ketones (NEGATIVE) Urine Occult Blood (Negative) Urine Nitrate (Negative) Urine Bilirubin (NEGATIVE) Urine Urobilinogen (0.2) E.U./dL Ur Leukocyte Esterase (NEGATIVE) Urine RBC (0-5/HPF) Urine WBC (0-5/HPF) Ur Squamous Epith Cells (0-5/HPF) Urine Bacteria (None) Ur Culture Indicated? Vol Urine Centrifuged Salicylates < 1.0 (<20) mg/dL U Opiates 300ng/mL cut (Negative) Ur Oxycodone Screen (Negative) Urine Methadone Screen (Negative) Acetaminophen < 10 (10-30) ug/mL Ur Barbiturates Screen (Negative) U Tricyclic Antidepress (Negative) Ur Phencyclidine Scrn (Negative) Ur Amphetamines Screen (Negative) U Methamphetamines Scrn (Negative) Ur MDMA Scrn (Ecstasy) (Negative) U Benzodiazepines Scrn (Negative) Urine Cocaine Screen (Negative) U Marijuana (THC) Screen (Negative) Urine Specific [place] (Normal) Ethyl Alcohol < 10 ( - 10) mg/dL Ur Creatinine (Normal) 08/01/24 08/01/24 Range/Units 07:33 07:33 WBC (4.5-11.0) X10^3/uL RBC (4.0-5.2) X10^6/uL Hgb (12.0-16.0) g/dL Hct (36-46) % MCV (80-100) fL MCH (26-34) PG MCHC (30-36) % RDW (11.6-14.8) % Plt Count (150-400) X10^3/uL Neut % (Auto) (50-75) % Lymph % (Auto) (25-40) % Roberts % (Auto) (3-14) % Eos % (Auto) (2-4) % Baso % (Auto) (0-2) % Neut # (Auto) (4029-5558) /uL Lymph # (Auto) (2780-7799) /uL Roberts # (Auto) (0-900) /uL Eos # (Auto) (0-450) /uL Baso # (Auto) (0-100) /uL ABG Sample Site ABG pH (7.35-7.45) ABG pCO2 (35-45) mmHg ABG pO2 (80-100) mmHg ABG HCO3 (23-27) mmol/L ABG Total CO2 (23-27) mmol/L ABG O2 Saturation (95-100) % ABG Base Excess (-2-3) mmol/L Andrew Test FiO2 % % Sodium (137-145) mmol/L Potassium (3.4-5.1) mmol/L Chloride (98-107) mmol/L Carbon Dioxide (22-32) mmol/L BUN (7-17) mg/dL Creatinine (0.52-1.04) mg/dL Estimated GFR (>60) mL/min BUN/Creatinine Ratio (6-22) Glucose (70-100) mg/dL Lactate (0.7-2.1) mmol/L Calcium (8.4-10.2) mg/dL Total Bilirubin (0.2-1.3) mg/dL AST (14-36) IU/L ALT (<35) IU/L Alkaline Phosphatase (38-126) U/L Total Creatine Kinase (30-135) U/L Troponin I (0.01-0.034) ng/mL NT-Pro-B Natriuret Pep (<125) pg/mL Total Protein (6.3-8.2) g/dL Albumin (3.5-5.0) g/dL Globulin (1.7-4.1) g/dL Albumin/Globulin Ratio (1.0-2.8) Lipase (23-300) U/L HCG, Quant mIU/mL Urine Color Yellow Urine Appearance Clear Urine pH 6.0 Normal (4.5-8.0) Ur Specific [place] 1.020 (1.000-1.035) Urine Protein Negative (Negative) Urine Glucose (UA) 2+ H (Negative) g/dL Urine Ketones Negative (NEGATIVE) Urine Occult Blood Negative (Negative) Urine Nitrate Negative (Negative) Urine Bilirubin Negative (NEGATIVE) Urine Urobilinogen 0.2 (0.2) E.U./dL Ur Leukocyte Esterase Negative (NEGATIVE) Urine RBC None seen (0-5/HPF) Urine WBC None seen (0-5/HPF) Ur Squamous Epith Cells None seen (0-5/HPF) Urine Bacteria None seen (None) Ur Culture Indicated? Cult not indicated Vol Urine Centrifuged 10ml (spun) Salicylates (<20) mg/dL U Opiates 300ng/mL cut Negative (Negative) Ur Oxycodone Screen Negative (Negative) Urine Methadone Screen Negative (Negative) Acetaminophen (10-30) ug/mL Ur Barbiturates Screen Negative (Negative) U Tricyclic Antidepress Positive H (Negative) Ur Phencyclidine Scrn Negative (Negative) Ur Amphetamines Screen Negative (Negative) U Methamphetamines Scrn Negative (Negative) Ur MDMA Scrn (Ecstasy) Negative (Negative) U Benzodiazepines Scrn Negative (Negative) Urine Cocaine Screen Negative (Negative) U Marijuana (THC) Screen Negative (Negative) Urine Specific [place] Normal (Normal) Ethyl Alcohol ( - 10) mg/dL Ur Creatinine Normal (Normal) Point of Care Testing Glucose POC 189 Point of care testing: Point of Care Testing Glucose POC 189 MDM Narrative Medical decision making narrative: 43-year-old female with history of pseudoseizures, anxiety, depression, fibromyalgia, substance abuse, diabetes, morbid obesity, obstructive sleep apnea, asthma, prior pulmonary embolus no longer on blood thinner medications, presenting with complaint of chest pain, seemed to have altered mental status per EMS, normal blood sugar in the field, blood glucose here 189 on arrival here, seems to have volitional closing of her eyes, not cooperative with commands for movement, though intermittently with verbally answer questions with one word or short phrase answers. BGM 189. ABG on arrival pH 7.39 noted. No obvious trauma to scalp head face neck torso extremities. 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 Chest x-ray unremarkable, ED wet read. Chest x-ray single view. Impression: ?No acute cardiopulmonary abnormality is identified. ? See teleradiology report Lab data: White blood cell count 5800, hemoglobin 13.9, platelets [id number]. Glucose 182. BUN 14 with creatinine 0.78 normal. Electrolytes unremarkable. Serum CO2 27. ABG pH 7.39, pCO2 45, PaO2 76. Liver functions and lipase normal. HCG negative. Troponin negative/unmeasurable. Ethanol, acetaminophen, salicylate levels negative. UA pending. UDS pending. CTA Chest performed, report pending. Records review, [facility] CTA Chest imaging reports: there are 9 CTA Chest study reports from 01/2019 through 05/2024, none confirm any pulmonary emboli. Most reports do not mention any pulmonary infiltrates, a couple mention ground-glass change left upper lobe, one mentioned patchy right middle lobe changes. 0630, patient alert looking around, calm, cooperative. Family member at bedside confirms history of previous pulmonary embolus, apparently 2018 diagnosed at [facility], when patient was transferred to [facility] for thrombectomy, is supposed to be taking Xarelto lifelong, has been off Xarelto for a few days awaiting spinal injection procedure to be done in [place] tomorrow. Await CTA chest report 0645, CT angiogram chest. Impressions: ?No pulmonary embolism identified given limitation of suboptimal contrast opacification of the pulmonary arteries. Question mild congestive heart failure.? See teleradiology report BNP 26 not elevated. Chest pain unclear etiology, follow up for spinal injection procedure tomorrow, resume Xarelto chronic anticoagulation after procedure as appropriate. Continue taking omeprazole antacid. Continue taking other chronic medications as prescribed. Further workup as an outpatient for now. Dr. Martinez patient signed out to me by Dr. Hill. I have seen evaluated patient myself. She reports that she was having some hallucinations just generally not feeling right. No significant chest discomfort. She is 2- troponins blood work has been reviewed she has no electrolyte abnormality no WOJCIECH no leukocytosis, urinalysis also negative for infection Patient received 1 L IV fluids blood pressure improved she was not feeling any dizzy numbness feeling a little bit better. She has no focal deficits no slurring of speech. At this time no need for any further workup. Discharge Plan Departure Patient Disposition: Home Clinical Impression: Chest pain Activity Restrictions/Additional Instructions: Chest pain of unclear cause. History of blood clots to the lungs pulmonary embolus reported in about 2018, for which you are prescribed custodial chronic Xarelto anticoagulation, which has been on hold the last few days in anticipation of spinal injection procedure to be done tomorrow. EKG and blood testing not suggestive of heart attack at this time. You had many previous CT angiogram chest studies that did not show evidence of blood clots. Since your blood thinning medication has been on hold and you have had blood clots before, another CT angiogram chest study was done today, again not showing any blood clots to the lungs, nor any acute chest infection or process that explains her discomfort. Continue taking your omeprazole antacid medication, in case your symptoms are related to stomach acid. Follow up tomorrow for your spinal procedure as planned. Resume your Xarelto anticoagulation medication per instructions of your spinal injection provider. Follow up with your regular doctor for further workup as an outpatient as needed. Return earlier to this/nearest emergency department for any change worsening symptoms or any concerns prior. Prescriptions: No Action furosemide 40 mg tablet See Rx Instructions PO BID Qty: 225 3RF Patient Comments: 60mg BID Rx Instructions: orally twice a day; 60mg (1.5 tab) every morning and 40mg (1 tab) in the evening scopolamine base 1 mg over 3 days patch 3 day 1 patch transdermal Q3D PRN (Reason: dizziness) Qty: 24 3RF albuterol sulfate 90 mcg/actuation HFA aerosol inhaler 2 puff inhalation Q6H PRN (Reason: shortness of breath or wheezing) Qty: 8.5 2RF ferrous sulfate 325 mg (65 mg iron) tablet 325 mg PO DAILY docusate sodium [Col-Rite] 250 mg capsule 250 mg PO BID vitamin B complex Tablet 1 tab PO DAILY amoxicillin 500 mg capsule 1,000 mg PO 3XD hyoscyamine sulfate 0.125 mg tablet, sublingual 0.125 mg sublingual Q4H PRN (Reason: muscle spasm) metoprolol succinate 25 mg tablet extended release 24 hr PO DAILY alprazolam 0.5 mg tablet PO Patient Comments: TAKE 1 TABLET BY MOUTH AT BEDTIME AND 2 TABLETS 1 HOUR PRIOR TO PROCEDURE polyethylene glycol 3350 17 gram/dose powder PO Patient Comments: DOSE ONE MIX WITH 64 OZ OF GATORADE. FOLLOW WITH DOSE TWO. insulin glargine-yfgn 100 unit/mL (3 mL) insulin pen 25 unit SUBCUT QPM Qty: 15 2RF aripiprazole 30 mg tablet 30 mg PO BEDTIME Qty: 90 3RF Rx Instructions: Take one 30mg tablet by mouth daily levalbuterol tartrate 45 mcg/actuation HFA aerosol inhaler 1 puff inhalation Q4-6H PRN (Reason: shortness of breath or wheezing) Qty: 15 2RF magnesium oxide 400 mg (241.3 mg magnesium) tablet 400 mg PO DAILY Qty: 30 0RF (DME) lancets See Rx Instructions .Route .MEDSUPPLY Qty: 100 3RF Rx Instructions: to test blood glucose daily terazosin 2 mg capsule 2 mg PO QPM Qty: 90 0RF (DME) glucose monitor See Rx Instructions .Route .MEDSUPPLY Qty: 1 0RF Rx Instructions: To test blood glucose daily (DME) glucose test strips See Rx Instructions .Route .MEDSUPPLY Qty: 100 3RF Rx Instructions: To test blood glucose daily levothyroxine 25 mcg tablet 25 mcg PO DAILY Qty: 90 3RF pregabalin 300 mg capsule 300 mg PO BID Qty: 180 3RF Rx Instructions: take 1 capsule by mouth twice a day Xarelto 20 mg tablet 20 mg PO DAILY Qty: 90 3RF Mounjaro 5 mg/0.5 mL pen injector 5 mg SUBCUT QWEEK Qty: 2 3RF omeprazole 20 mg capsule,delayed release(DR/EC) 20 mg PO BID Qty: 180 0RF metformin 500 mg tablet 1,000 mg PO BID Qty: 120 0RF bupropion HCl 300 mg tablet extended release 24 hr 300 mg PO QAM Qty: 90 3RF Atrovent HFA 17 mcg/actuation HFA aerosol inhaler 1 puff PO Q8H Qty: 12.9 0RF Jardiance 10 mg tablet 10 mg PO DAILY Qty: 30 2RF budesonide-formoterol [Symbicort] 160-4.5 mcg/actuation HFA aerosol inhaler 2 puff inhalation BID Qty: 10.2 2RF (DME) pen needle, diabetic [Sure Comfort Pen Needle] 32 gauge x / needle See Rx Instructions .ROUTE .COMPLEX Qty: 100 0RF Dose Instruction: USE WITH LEVEMIR DAILY DIRECTED Rx Instructions: USE WITH LEVEMIR DAILY DIRECTED fluticasone propion-salmeterol [Advair HFA] 115-21 mcg/actuation HFA aerosol inhaler 2 puff inhalation BID Qty: 12 0RF spironolactone 25 mg tablet 12.5 mg PO DAILY Qty: 45 3RF cyclobenzaprine 10 mg tablet 10 mg PO 3XD PRN (Reason: for muscle spasm) Qty: 90 0RF ascorbic acid (vitamin C) 500 mg tablet 500 mg PO DAILY potassium gluconate 595 mg (99 mg) tablet 595 mg PO DAILY (DME) True Metrix Glucose Test Strip Strip See Rx Instructions .ROUTE DAILY Qty: 10 Rx Instructions: As directed (DME) lancets [Micro Thin Lancets] 33 gauge misc See Rx Instructions .ROUTE DAILY Qty: 100 Rx Instructions: As directed ketoconazole 2 % shampoo topical triamcinolone acetonide 0.1 % cream 1 applic topical acetaminophen [Tylenol Extra Strength] 500 mg tablet 1,000 mg PO Q6H PRN (DME) blood-glucose meter [True Metrix Glucose Meter] Misc See Rx Instructions .ROUTE DAILY Qty: 1 Rx Instructions: As directed metoprolol succinate 50 mg tablet extended release 24 hr 50 mg PO BID Referrals: Alejandra Lynch MD [Primary Care Provider] - Stand Alone Forms: Patient Portal/API/Survey
--- NOTE | 2024-08-01 04:49 | EKG_ITS ---
[address] [address] Test Date: 2024-08-01 Pat Name: Nuvia Alvarado Department: Room: Gender: Female [employer] Specialist: FLORENCIA : 1980 Requested By: Order Number: [id number] Reading MD: Andrew Sanchez Measurements Intervals [place] Rate: 96 P: 60 AK: 166 QRS: 0 QRSD: 146 T: -15 QT: 394 QTc: 497 Interpretive Statements Normal sinus rhythm Right bundle branch block Minimal voltage criteria for LVH, may be normal variant ( R in aVL ) Electronically Signed On 08-01-2024 8:49:06 PDT by Andrew Sanchez
--- NOTE | 2024-08-01 04:55 | PC.NURSE ---
pt was awake for EMS and was able to take asa and answer questions but appeared to be dozing upon arrival pt opens eyes to deep stimulit but difficult to get pt to answer questions. pt eyelids noted to flutter constantly while procedures being performed
[2024-08-01 05:06] LABS: Base Excess ABG 1.9 mmol/L (-2-3); HCO3 ABG 28 mmol/L (23-27); Oxygen Saturation ABG 95 % (95-100); PCO2 ABG 45.5 mmHg (35-45); PO2 ABG 76 mmHg (80-100); TCO2 ABG 27 mmol/L (23-27); pH ABG 7.39 (7.35-7.45)
--- NOTE | 2024-08-01 05:07 | RT ---
0505 - Dr. Hill notified regarding ABG result.
[2024-08-01 05:10] LABS: Add Manual Diff / Slide Review NO; Basophils Absolute Auto 0 /uL (0-100); Basophils Percent Auto 0.5 % (0-2); Eosinophils Absolute Auto 100 /uL (0-450); Eosinophils Percent Auto 1.3 % (2-4); Hematocrit 41.8 % (36-46); Hemoglobin 13.9 g/dL (12.0-16.0); Lymphocytes Absolute Auto 1800 /uL (1100-4500); Lymphocytes Percent Auto 31.2 % (25-40); Mean Corpuscular HGB Conc 33.4 % (30-36); Mean Corpuscular Hemoglobin 29.1 PG (26-34); Monocytes Absolute Auto 500 /uL (0-900); Monocytes Percent Auto 7.9 % (3-14); Neutrophils Absolute Auto 3400 /uL (1500-7000); Neutrophils Percent Auto 59.1 % (50-75); Platelet Count 236 X10^3/uL (150-400); Red Cell Distribution Width 14.2 % (11.6-14.8); White Blood Cell Count 5.8 X10^3/uL (4.5-11.0)
--- NOTE | 2024-08-01 05:17 | PC.NURSE ---
Family member advised of pt belongings bag, shoes, and cell phone.
[2024-08-01 05:21] LABS: Ethanol (ETOH) < 10 mg/dL
[2024-08-01 05:22] LABS: Lactate (Lactic Acid) 1.7 mmol/L (0.7-2.1)
[2024-08-01 05:23] LABS: Alanine Aminotransferase 21 IU/L (<35); Albumin 4.6 g/dL (3.5-5.0); Albumin Globulin Ratio 1.3 (1.0-2.8); Alkaline Phosphatase 65 U/L (38-126); Aspartate Aminotransferase 25 IU/L (14-36); BUN Creatinine Ratio 17.9 (6-22); Bilirubin Total 0.4 mg/dL (0.2-1.3); Blood Urea Nitrogen 14 mg/dL (7-17); Calcium 9.8 mg/dL (8.4-10.2); Carbon Dioxide 27 mmol/L (22-32); Chloride 102 mmol/L (98-107); Creatine Kinase 77 U/L (30-135); Estimated Glomerular Filt Rate > 60 mL/min (>60); Globulin 3.5 g/dL (1.7-4.1); Glucose 182 mg/dL (70-100); HEMOLYSIS < 15 (0-50); Lipase 54 U/L (23-300); Potassium 3.8 mmol/L (3.4-5.1); Sodium 141 mmol/L (137-145); Total Protein 8.1 g/dL (6.3-8.2)
[2024-08-01 05:24] LABS: Acetaminophen < 10 ug/mL (10-30); Salicylate < 1.0 mg/dL (<20)
[2024-08-01 05:34] LABS: Troponin I < 0.012 ng/mL (0.01-0.034)
[2024-08-01 05:38] LABS: HCG Quantitative /Beta subunit < 2.39 mIU/mL
--- NOTE | 2024-08-01 05:40 | DI.CT.S_ITS ---
PROCEDURE: CT ANGIO CHEST PE PROTOCOL INDICATIONS: chest pain, hx PE TECHNIQUE: After the administration of intravenous contrast, 2 mm thick sections acquired from the pulmonary apices to the posterior costophrenic angles. 3-dimensional maximum intensity projection (MIP) coronal and sagittal reformats were then acquired through the thorax. For radiation dose reduction, the following was used: automated exposure control, adjustment of mA and/or kV according to patient size. COMPARISON: [facility], CT, CT ANGIO CHEST PE PROTOCOL, 06/13/2024, 17:02. FINDINGS: Image quality: Diagnostic Lungs and pleura: Mild diffuse septal thickening. No pleural effusions. Basal atelectasis. Mediastinum, heart, and esophagus: No pulmonary embolism. Mildly patulous esophagus. No pathologic lymph nodes by size criteria. Borderline cardiomegaly. No pericardial effusion. Chest wall and thyroid: Unremarkable Upper abdomen: No gross abnormality on these arterial phase images Bones: No aggressive appearing focal osseous lesion IMPRESSION: No acute pulmonary embolism. Diffuse septal thickening of the lungs, probably edema (versus atypical infection). Borderline cardiomegaly. No effusions. No significant changes from the preliminary report. Dictated by: Charlie Pritchard M.D. on 08/01/2024 at 8:10 Approved by: Charlie Pritchard M.D. on 08/01/2024 at 8:13
[2024-08-01 05:43] LABS: Blood Gas Collection Site Right Radial
[2024-08-01 06:49] LABS: NT-proBNP (BNP-Adult 18+) 26 pg/mL (<125)
[2024-08-01 07:39] LABS: Troponin I < 0.012 ng/mL (0.01-0.034)
[2024-08-01 07:45] LABS: Ur Creatinine Normal (Normal); Ur Specific Gravity Normal (Normal); Urine pH Normal (Normal)
[2024-08-01 07:47] LABS: UR Morphine/Opiate cutoff 300 Negative (Negative); Urine Amphetamines Negative (Negative); Urine Barbiturates Negative (Negative); Urine Benzodiazepines Negative (Negative); Urine Cocaine Negative (Negative); Urine MDMA Negative (Negative); Urine Methadone Negative (Negative); Urine Methamphetamines Negative (Negative); Urine Oxycodone Negative (Negative); Urine Phencyclidine Negative (Negative); Urine Tetrahydrocannabinol Negative (Negative); Urine Tricyclic Antidepressant Positive (Negative)
[2024-08-01] MEDS: SODIUM CHLORIDE 0.9% 1,000 ML 1000 ML IV (07:55)
[2024-08-01 08:55] LABS: Appearance Urine UA CLEAR; Bilirubin Urine UA NEGATIVE (NEGATIVE); Color Urine UA YELLOW; Glucose Urine UA 2+ g/dL (Negative); Ketones Urine UA NEGATIVE (NEGATIVE); Leukocyte Esterase Urine UA NEGATIVE (NEGATIVE); Nitrite Urine UA NEGATIVE (Negative); Occult Blood Urine UA NEGATIVE (Negative); Protein Urine UA NEGATIVE (Negative); Urine Volume 10mL (spun); Urobilinogen Urine UA 0.2 E.U./dL (0.2)
[2024-08-01 08:58] LABS: Bacteria Urine None Seen; Culture Indicated Urine Cult Not Indicated; RBC Urine None Seen (0-5/HPF); Squamous Epithelial Cell Urine None Seen (0-5/HPF); WBC Urine None Seen (0-5/HPF)
== END 2024-08-01 09:50 | disposition home or self-care (01) ==
PROVIDERS: Emergency Medicine; Emergency Provider Emergency Medicine; Family Provider Family Medicine; PCP Family Medicine
DX: R07.9 Chest pain, unspecified (principal); R41.82 Altered mental status, unspecified; E66.01 Morbid (severe) obesity due to excess calories; Z79.01 Long term (current) use of anticoagulants; I45.10 Unspecified right bundle-branch block; Z87.891 Personal history of nicotine dependence; F10.90 Alcohol use, unspecified, uncomplicated
CPT/HCPCS: 36415; 36600; 71045; 71275; 80053; 80305; 80320; 80329; 81001; 82550; 82805; 82962; 83605; 83690; 83880; 84484; 84702; 85025; 93005; 96360; 99281; 99284; G0480; Q9967

== ENCOUNTER 2024-08-01 14:58 | Emergency (ER) | payer OTHER, MEDICARE, SELFPAY ==
[2024-01-19 14:23] VITALS: BMI 50.6
[2024-08-01 15:16] VITALS: BP 134/80; PULSE 96; RESP 18; TEMP 36.2; O2SAT 99; BMI 44.1
--- NOTE | 2024-08-01 16:26 | ED_ITS ---
HPI - Neuro Symptoms/Deficit <Blair Draper PA-C - Last Filed: 08/02/24 12:51> General Chief Complaint: Neuro Symptoms/Deficit Stated Complaint: Return-Seeing things not there and spiders. Time Seen by Provider: 08/01/24 15:30 Source: patient Mode of arrival: Ambulatory History of Present Illness HPI Narrative: 43-year-old female with past medical history anxiety, depression, alcohol abuse, opiate use, fibromyalgia, asthma, diabetes, PE, psychogenic nonepileptic seizures returns to the ED for visual hallucinations. Patient was just seen in the ED this morning for chest pain and discharged home after a extensive cardiopulmonary workup. The workup was unremarkable. Patient returns to the ED with her and states that she had some visual hallucinations upon returning home. She states that the dog hair on the floor appear to her like spiders crawling all over. Patient does take Abilify and bupropion for the anxiety and depression. No recent changes to dosages and patient endorses that she is compliant with the medications. Patient did start Spiriva recently for her skin. No chest pain, shortness of breath, fever, chills, nausea, vomiting, abdominal pain, lightheadedness, dizziness, syncope. Patient denies any suicidal or homicidal ideation. Patient sees a counselor as well as a psychiatrist regularly. Patient's states that she has had some other hallucinations over the last 2 days, however patient does not recall those. No hallucinations prior to that. On Anticoagulants: Yes (xarelto) Related Data Home Medications Medication Instructions Recorded Confirmed ascorbic acid (vitamin C) 500 mg 500 mg PO DAILY 07/28/22 07/12/24 tablet potassium gluconate 595 mg (99 mg) 595 mg PO DAILY 07/28/22 07/12/24 tablet docusate sodium 250 mg capsule 250 mg PO BID 12/03/22 07/12/24 (Col-Rite) ferrous sulfate 325 mg (65 mg 325 mg PO DAILY 12/03/22 07/12/24 iron) tablet vitamin B complex 1 tab PO DAILY 12/03/22 07/12/24 acetaminophen 500 mg tablet 1,000 mg PO Q6H PRN 08/05/23 07/12/24 (Tylenol Extra Strength) blood sugar diagnostic (True #10 ea 08/05/23 07/12/24 Metrix Glucose Test Strip) ketoconazole 2 % shampoo topical 08/05/23 07/12/24 lancets 33 gauge (Micro Thin #100 ea 08/05/23 07/12/24 Lancets) triamcinolone acetonide 0.1 % 1 applic topical 08/05/23 07/12/24 topical cream blood-glucose meter (True Metrix #1 ea 02/03/24 07/12/24 Glucose Meter) metoprolol succinate 50 mg 50 mg PO BID 02/03/24 07/12/24 tablet,extended release 24 hr alprazolam 0.5 mg tablet mg PO 06/29/24 07/12/24 amoxicillin 500 mg capsule 1,000 mg PO 3XD 06/29/24 07/12/24 hyoscyamine sulfate 0.125 mg 0.125 mg sublingual Q4H PRN muscle 06/29/24 07/12/24 sublingual tablet spasm metoprolol succinate 25 mg mg PO DAILY 06/29/24 07/12/24 tablet,extended release 24 hr polyethylene glycol 3350 17 g PO 06/29/24 07/12/24 gram/dose oral powder Previous Rx's Medication Instructions Recorded levalbuterol tartrate 45 1 puff inhalation Q4-6H PRN 01/22/22 mcg/actuation aerosol inhaler shortness of breath or wheezing #15 grams magnesium oxide 400 mg (241.3 mg 400 mg PO DAILY #30 tabs 07/18/22 magnesium) tablet lancets #100 ea 12/01/22 furosemide 40 mg tablet See Rx Instructions PO BID #225 10/14/23 tabs scopolamine base 1 mg over 3 days 1 patch transdermal Q3D PRN 10/14/23 transdermal patch dizziness #24 ea terazosin 2 mg capsule 2 mg PO QPM #90 caps 10/23/23 glucose monitor #1 ea 12/28/23 glucose test strips #100 ea 12/28/23 levothyroxine 25 mcg tablet 25 mcg PO DAILY #90 tabs 01/26/24 pregabalin 300 mg capsule 300 mg PO BID #180 caps 02/26/24 rivaroxaban 20 mg tablet (Xarelto) 20 mg PO DAILY #90 tabs 02/26/24 tirzepatide 5 mg/0.5 mL 5 mg (0.5 mL) SUBCUT QWEEK #2 mL 02/29/24 subcutaneous pen injector (Keith) aripiprazole 30 mg tablet 30 mg PO BEDTIME #90 tabs 04/20/24 omeprazole 20 mg capsule,delayed 20 mg PO BID #180 caps 04/25/24 release metformin 500 mg tablet 1,000 mg (2 x 500 mg) PO BID #120 04/27/24 tabs bupropion HCl 300 mg 24 hr tablet, 300 mg PO QAM #90 tabs 05/02/24 extended release ipratropium bromide 17 1 puff PO Q8H #12.9 grams 05/27/24 mcg/actuation HFA aerosol inhaler (Atrovent HFA) insulin glargine-yfgn 100 unit/mL 25 unit (0.25 mL) SUBCUT QPM #15 mL 06/29/24 (3 mL) subcutaneous pen empagliflozin 10 mg tablet 10 mg PO DAILY #30 tabs 07/01/24 (Jardiance) albuterol sulfate 90 mcg/actuation 2 puff inhalation Q6H PRN 07/12/24 aerosol inhaler shortness of breath or wheezing #8.5 grams budesonide-formoterol HFA 160 2 puff inhalation BID #10.2 grams 07/15/24 mcg-4.5 mcg/actuation aerosol inhaler (Symbicort) pen needle, diabetic 32 gauge x #100 ea 07/15/24/32 (Sure Comfort Pen Needle) fluticasone propionate 115 2 puff inhalation BID #12 grams 07/22/24 mcg-salmeterol 21 mcg/actuation HFA inhaler (Advair HFA) cyclobenzaprine 10 mg tablet 10 mg PO 3XD PRN for muscle spasm 07/27/24 #90 tabs spironolactone 25 mg tablet 12.5 mg (1/2 x 25 mg) PO DAILY #45 07/27/24 tabs Allergies Allergy/AdvReac Type Severity Reaction Status Date / Time carisoprodol [CARISOPRODOL] AdvReac Severe urinary Verified 07/12/24 11:30 retention fosphenytoin AdvReac Severe Seizures Verified 07/12/24 11:30 Latex, Natural Rubber AdvReac Mild Rash Verified 07/12/24 11:30 risperidone [From Risperdal] AdvReac urinary Verified 07/12/24 11:30 retention Review of Systems <Hyma Baron, PA-C - Last Filed: 08/02/24 12:51> Constitutional Constitutional: Denies chills, Denies fatigue, Denies fever(s), Denies frequent falls, Denies lethargy and Denies weakness Eyes Eyes: Denies change in vision, Denies eye discharge, Denies irritation and Denies loss of vision ENT Ears, Nose, Mouth, and Throat: Denies change in voice, Denies dizziness, Denies neck pain, Denies sore throat and Denies throat swelling Cardiovascular Cardiovascular: Denies chest pain, Denies irregular heart rhythm, Denies lightheadedness, Denies palpitations, Denies dyspnea, Denies dyspnea on exertion and Denies orthopnea Respiratory Respiratory: Denies cough, Denies dyspnea, Denies dyspnea on exertion and Denies wheezing Gastrointestinal Gastrointestinal: Denies abdominal pain, Denies change in bowel habits, Denies diarrhea, Denies nausea and Denies vomiting Musculoskeletal Musculoskeletal: Denies neck pain and Denies numbness Integumentary/Breasts Skin/Breast: Denies pruritus, Denies erythema, Denies rash and Denies wounds Neurologic Neurologic: Denies behavioral changes, Denies confusion, Denies dizziness, Denies frequent falls, Denies loss of vision, Denies numbness and Denies weakness Psychiatric Psychiatric: Denies anxiety, Denies behavioral changes, Denies confusion, Denies depression, Reports visual hallucinations, Denies homicidal ideation and Denies suicidal ideation Endocrine Endocrine: Denies fatigue, Denies flushing and Denies palpitations Hematologic/Lymphatic Hematologic/Lymphatic: Denies easy bruising On Anticoagulants: Yes (xarelto) Allergic/Immunologic Allergic/Immunologic: Denies urticaria, Denies throat swelling and Denies wheezing Patient History <Blair Draper PA-C - Last Filed: 08/02/24 12:51> Medical History Facet arthropathy, lumbar Cervical radiculopathy 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) 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 Hypoxia Sinus tachycardia RBBB (right bundle branch block) Tobacco abuse Psychogenic nonepileptic seizure Alcoholism DVT (deep venous thrombosis) Narcotic habituation, continuous Pulmonary embolism Morbid obesity LYLA (obstructive sleep apnea) Acetaminophen overdose of undetermined intent (12/2015) Suicide attempt Intraoperative cardiac arrest during non-cardiac surgery (11/2013) Ovarian cyst Plantar fasciitis 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 Cubital tunnel syndrome Status post laminectomy (12/14/15) Gastroesophageal reflux disease without esophagitis (03/02/15) Fibromyalgia (03/02/15) Tylenol overdose Obstipation Urinary retention Surgical History S/P lumbar spinal fusion H/O: hysterectomy Hx of toe surgery (05/16/20) History of carpal tunnel repair (~10/30/14) History of laminectomy (~09/2016) History of laminectomy History of colonoscopy History of esophagogastroduodenoscopy (EGD) History of lumbar spinal fusion (12/22/18) S/P epidural steroid injection (11/2013) Status post dilation and curettage (2008) Family History Grandfather Diabetes mellitus Family/Other Pancreatic cancer Social History household members: spouse Smoking Status: Former smoker alcohol intake: current eating out: 1-3 times/week Type(s) of exercise: normal ROM and activity and sedentary lifestyle Smoking Status: Former smoker tobacco type: cigarettes alcohol intake frequency: other Alcohol type: hard liquor Exam <Blair Draper PA-C - Last Filed: 08/02/24 12:51> Narrative Exam Narrative: Const General:?cooperative, healthy appearing and comfortable; flat affect [facility] Head:?normal to inspection Ears:?hearing grossly normal bilaterally Nose:?external nose normal Face and sinus:?normal facial exam and sinuses nontender Mouth:?oral mucosae normal Throat:?posterior oropharynx normal Eyes General:?appearance normal, both eyes and all related structures Neck Neck:?normal visual inspection and no lymphadenopathy noted Resp Effort & Inspection:?normal respiratory effort Auscultation:?clear to auscultation bilaterally Cardio Rate:?regular rate Rhythm:?regular rhythm Neuro General:?patient alert, patient awake and patient oriented x3; PERRLA Initial Vital Signs Initial Vital Signs: Vital Signs Temperature 97.2 F L 08/01/24 15:16 Pulse Rate 96 H 08/01/24 15:16 Respiratory Rate 18 08/01/24 15:16 Blood Pressure 134/80 08/01/24 15:16 Pulse Oximetry 99 08/01/24 15:16 Oxygen Delivery Method Room Air 08/01/24 15:16 <Kristen Martinez DO - Last Filed: 08/05/24 07:17> Initial Vital Signs Initial Vital Signs: Vital Signs Temperature 97.2 F L 08/01/24 15:16 Pulse Rate 96 H 08/01/24 15:16 Respiratory Rate 18 08/01/24 15:16 Blood Pressure 134/80 08/01/24 15:16 Pulse Oximetry 99 08/01/24 15:16 Oxygen Delivery Method Room Air 08/01/24 15:16 Course <Blair Draper PA-C - Last Filed: 08/02/24 12:51> Vital Signs Vital signs: Vital Signs - 8 hr 08/01/24 15:16 Temperature 97.2 F L Pulse Rate 96 H Respiratory Rate 18 Blood Pressure 134/80 Pulse Oximetry 99 Oxygen Delivery Method Room Air <Kristen Martinez DO - Last Filed: 08/05/24 07:17> Vital Signs Vital signs: Vital Signs - 8 hr 08/01/24 15:16 Temperature 97.2 F L Pulse Rate 96 H Respiratory Rate 18 Blood Pressure 134/80 Pulse Oximetry 99 Oxygen Delivery Method Room Air MDM - Neuro Symptoms/Deficit <Blair Draper PA-C - Last Filed: 08/02/24 12:51> MDM Narrative Medical decision making narrative: 43-year-old female with past medical history anxiety, depression, alcohol abuse, opiate use, fibromyalgia, asthma, diabetes, PE, psychogenic nonepileptic seizures returns to the ED for visual hallucinations. In the ED, patient is not experiencing any hallucinations. Patient appears well. Somewhat flat affect. Discussed that given patient's extensive workup which was unremarkable, hallucinations likely related to mental health issues. Recommend follow-up with her business librarian to check in if the Spiriva could be causing her symptoms. Also recommend follow-up with her psychiatrist regarding the hallucinations. ED return precautions discussed with patient in the event of suicidal or homicidal ideations or other worsening symptoms. Patient and her verbalized understanding. Medical records reviewed: Yes Discharge Plan Departure Patient Disposition: Home Clinical Impression: Visual hallucinations Instructions: DI for Anxiety -- Adult Activity Restrictions/Additional Instructions: You were evaluated in the ED today for visual hallucinations. Given that you had an extensive workup today with no evidence of organic cause of the hallucinations, it is likely that it is related to any recent medications or your mental health. It is recommended that you follow-up with a business librarian regarding the nidia greasy which is a recent medication that you started. It is also recommended that you follow-up with your psychiatrist as soon as possible. Return to the ED if you have any worsening symptoms, thoughts of harming herself or harming others. Prescriptions: No Action furosemide 40 mg tablet See Rx Instructions PO BID Qty: 225 3RF Patient Comments: 60mg BID Rx Instructions: orally twice a day; 60mg (1.5 tab) every morning and 40mg (1 tab) in the evening scopolamine base 1 mg over 3 days patch 3 day 1 patch transdermal Q3D PRN (Reason: dizziness) Qty: 24 3RF albuterol sulfate 90 mcg/actuation HFA aerosol inhaler 2 puff inhalation Q6H PRN (Reason: shortness of breath or wheezing) Qty: 8.5 2RF ferrous sulfate 325 mg (65 mg iron) tablet 325 mg PO DAILY docusate sodium [Col-Rite] 250 mg capsule 250 mg PO BID vitamin B complex Tablet 1 tab PO DAILY amoxicillin 500 mg capsule 1,000 mg PO 3XD hyoscyamine sulfate 0.125 mg tablet, sublingual 0.125 mg sublingual Q4H PRN (Reason: muscle spasm) metoprolol succinate 25 mg tablet extended release 24 hr PO DAILY alprazolam 0.5 mg tablet PO Patient Comments: TAKE 1 TABLET BY MOUTH AT BEDTIME AND 2 TABLETS 1 HOUR PRIOR TO PROCEDURE polyethylene glycol 3350 17 gram/dose powder PO Patient Comments: DOSE ONE MIX WITH 64 OZ OF GATORADE. FOLLOW WITH DOSE TWO. insulin glargine-yfgn 100 unit/mL (3 mL) insulin pen 25 unit SUBCUT QPM Qty: 15 2RF aripiprazole 30 mg tablet 30 mg PO BEDTIME Qty: 90 3RF Rx Instructions: Take one 30mg tablet by mouth daily levalbuterol tartrate 45 mcg/actuation HFA aerosol inhaler 1 puff inhalation Q4-6H PRN (Reason: shortness of breath or wheezing) Qty: 15 2RF magnesium oxide 400 mg (241.3 mg magnesium) tablet 400 mg PO DAILY Qty: 30 0RF (DME) lancets See Rx Instructions .Route .MEDSUPPLY Qty: 100 3RF Rx Instructions: to test blood glucose daily terazosin 2 mg capsule 2 mg PO QPM Qty: 90 0RF (DME) glucose monitor See Rx Instructions .Route .MEDSUPPLY Qty: 1 0RF Rx Instructions: To test blood glucose daily (DME) glucose test strips See Rx Instructions .Route .MEDSUPPLY Qty: 100 3RF Rx Instructions: To test blood glucose daily levothyroxine 25 mcg tablet 25 mcg PO DAILY Qty: 90 3RF pregabalin 300 mg capsule 300 mg PO BID Qty: 180 3RF Rx Instructions: take 1 capsule by mouth twice a day Xarelto 20 mg tablet 20 mg PO DAILY Qty: 90 3RF Mounjaro 5 mg/0.5 mL pen injector 5 mg SUBCUT QWEEK Qty: 2 3RF omeprazole 20 mg capsule,delayed release(DR/EC) 20 mg PO BID Qty: 180 0RF metformin 500 mg tablet 1,000 mg PO BID Qty: 120 0RF bupropion HCl 300 mg tablet extended release 24 hr 300 mg PO QAM Qty: 90 3RF Atrovent HFA 17 mcg/actuation HFA aerosol inhaler 1 puff PO Q8H Qty: 12.9 0RF Jardiance 10 mg tablet 10 mg PO DAILY Qty: 30 2RF budesonide-formoterol [Symbicort] 160-4.5 mcg/actuation HFA aerosol inhaler 2 puff inhalation BID Qty: 10.2 2RF (DME) pen needle, diabetic [Sure Comfort Pen Needle] 32 gauge x 5/32 needle See Rx Instructions .ROUTE .COMPLEX Qty: 100 0RF Dose Instruction: USE WITH LEVEMIR DAILY DIRECTED Rx Instructions: USE WITH LEVEMIR DAILY DIRECTED fluticasone propion-salmeterol [Advair HFA] 115-21 mcg/actuation HFA aerosol inhaler 2 puff inhalation BID Qty: 12 0RF spironolactone 25 mg tablet 12.5 mg PO DAILY Qty: 45 3RF cyclobenzaprine 10 mg tablet 10 mg PO 3XD PRN (Reason: for muscle spasm) Qty: 90 0RF ascorbic acid (vitamin C) 500 mg tablet 500 mg PO DAILY potassium gluconate 595 mg (99 mg) tablet 595 mg PO DAILY (DME) True Metrix Glucose Test Strip Strip See Rx Instructions .ROUTE DAILY Qty: 10 Rx Instructions: As directed (DME) lancets [Micro Thin Lancets] 33 gauge misc See Rx Instructions .ROUTE DAILY Qty: 100 Rx Instructions: As directed ketoconazole 2 % shampoo topical triamcinolone acetonide 0.1 % cream 1 applic topical acetaminophen [Tylenol Extra Strength] 500 mg tablet 1,000 mg PO Q6H PRN (DME) blood-glucose meter [True Metrix Glucose Meter] Misc See Rx Instructions .ROUTE DAILY Qty: 1 Rx Instructions: As directed metoprolol succinate 50 mg tablet extended release 24 hr 50 mg PO BID Referrals: Alejandra Lynch MD [Primary Care Provider] - Stand Alone Forms: Patient Portal/API/Survey ED Sign-out <Kristen Martinez DO - Last Filed: 08/05/24 07:17> Cosign ED Attending Radhikaature Attestation: I was available for consultation.
--- NOTE | 2024-08-01 16:40 | PC.NURSE ---
Pt presents with spouse and endorsing having visual hallucinations while at home for the past 2 hours. Pt was discharged earlier today for chest pain. While at home, pt was seeing lots of spiders running around their house and reported that it was just the dog hair because we have dogs and lots o hair. Pt spouse also endorsing that the spiders were actually dog fur. Pt also realizes now that it was in fact dog hair and not spiders, saying she knows they are not actually spiders. Pt's spouse states this started 2 days ago and is concerned she may have rabies after obtaining a small scratch from their dog on her right, dorsal hand. Provider responded with providing education to the spouses concern. Pt endorses history of SI back in 2016 and does not have any thoughts of this now. She has not been sleeping as much as she usually does.
[2024-08-01 17:12] VITALS: BP 131/81; PULSE 94; RESP 18; O2SAT 96
== END 2024-08-01 17:12 | disposition home or self-care (01) ==
PROVIDERS: Emergency Provider Student in an Organized Health Care Education/Training Program; Family Provider Family Medicine; PCP Family Medicine
DX: R44.1 Visual hallucinations (principal)

== ENCOUNTER → 2024-08-25 13:46 | Outpatient (CLI) | payer OTHER, MEDICARE, SELFPAY ==
[2024-01-19 14:23] VITALS: BMI 50.6
--- NOTE | 2024-08-25 13:52 | DI.RAD.S_ITS ---
PROCEDURE: XR LUMBAR SPINE 2-3V INDICATIONS: low back pain after fall TECHNIQUE: 3 views of the lumbar spine were acquired. COMPARISON: [facility], CT, CT ABDOMEN PELVIS W CON, 05/07/2024, 18:28. [facility], CR, XR LUMBAR SPINE 2-3V, 10/14/2023, 15:28. [facility], CR, XR LUMBAR SPINE 2-3V, 04/02/2022, 13:47. FINDINGS: Bones: 6 [id number] vertebrae are present. L5-L6 pedicle screw fixation with intervertebral body spacer. Mild degenerative changes. There is normal bony alignment. No vertebral body compression fractures. No suspicious bony lesions. Soft tissues: Overlying bowel gas pattern is normal. No suspicious soft tissue calcifications. IMPRESSION: No compression fracture. L5-L6 pedicle screw fixation is stable. Dictated by: Jai Mustafa M.D. on 08/25/2024 at 22:37 Approved by: Jai Mustafa M.D. on 08/25/2024 at 22:39
== END ==
PROVIDERS: Family Provider Family Medicine; PCP Family Medicine; Referring Provider Family Medicine; Visit Provider Family Medicine
DX: M54.50 Low back pain, unspecified (principal); Z98.1 Arthrodesis status
CPT/HCPCS: 72100

== ENCOUNTER → 2024-08-31 09:21 | Outpatient (CLI) | payer OTHER, MEDICARE, SELFPAY ==
[2024-01-19 14:23] VITALS: BMI 50.6
[2024-08-31 10:50] LABS: Hemoglobin A1C% w Est Avg Glu 5.4 % (4.0-6.0)
[2024-08-31 11:03] LABS: Lithium < 0.2 mmol/L (0.6-1.2)
== END ==
PROVIDERS: Family Provider Family Medicine; PCP Family Medicine; Referring Provider Psychiatry & Neurology Psychiatry; Visit Provider Psychiatry & Neurology Psychiatry
DX: E11.65 Type 2 diabetes mellitus with hyperglycemia (principal); Z79.4 Long term (current) use of insulin; Z79.899 Other long term (current) drug therapy
CPT/HCPCS: 36415; 80178; 83036

== ENCOUNTER → 2024-09-28 12:58 | Outpatient (CLI) | payer OTHER, MEDICARE, SELFPAY ==
[2024-01-19 14:23] VITALS: BMI 50.6
== END ==
LOC: RESP 13:00
PROVIDERS: Family Provider Family Medicine; PCP Family Medicine; Referring Provider Internal Medicine Critical Care Medicine; Visit Provider Internal Medicine Critical Care Medicine
DX: R06.09 Other forms of dyspnea (principal); Z87.891 Personal history of nicotine dependence; R94.2 Abnormal results of pulmonary function studies
CPT/HCPCS: 94060; 94726; 94729

== ENCOUNTER 2024-12-18 22:57 | Emergency (ER) | payer OTHER, MEDICARE, SELFPAY ==
[2024-01-19 14:23] VITALS: BMI 50.6
[2024-12-18 23:16] VITALS: BP 132/74; PULSE 115; RESP 16; TEMP 36.8; O2SAT 99; BMI 44.9
--- NOTE | 2024-12-18 23:53 | ED_ITS ---
HPI - Psych <Dong Hill MD - Last Filed: 12/19/24 15:25> General Chief Complaint: Psychiatric Symptoms Stated Complaint: Hallucinations, Headache Time Seen by Provider: 12/18/24 23:45 Source: patient Mode of arrival: Ambulatory History of Present Illness HPI Narrative: 44-year-old female with history of depression, more recent diagnosis 3 months ago of bipolar disorder, started on lithium 3 months ago with the same mental health provider Dr. Roberts, earlier today starting to have hallucinations visual of spiders. No thoughts of hurting herself or others. No fevers or chills. No cough or shortness of breath. She has not been missing her lithium doses. She feels takes omeprazole medication that has been chronic, with no dose changes. She admits to vaping marijuana, no new product or change in product or dosing. Denies other drug use. Drinks occasional alcohol. Does not recall he history of previous withdrawal problems. Related Data Home Medications ?Medication ?Instructions ?Recorded ?Confirmed ascorbic acid (vitamin C) 500 mg 500 mg PO DAILY 07/2812/18/24 tablet potassium gluconate 595 mg (99 mg) 595 mg PO DAILY 11/1412/18/24 tablet ferrous sulfate 325 mg (65 mg 325 mg PO DAILY 12/03/22 12/18/24 iron) tablet vitamin B complex 1 tab PO DAILY 12/03/2211/23 acetaminophen 500 mg tablet 1,000 mg PO Q6H PRN pain 0 08/05/23 12/18/24 (Tylenol Extra Strength) blood sugar diagnostic (True #10 ea 08/05/23 12/18/24 Metrix Glucose Test Strip) ketoconazole 2 % shampoo 1 applic topical DAILY PRN y east 08/05/23 12/18/24 lancets 33 gauge (Micro Thin #100 ea 08/05/23 12/18/24 Lancets) triamcinolone acetonide 0.1 % 1 applic topical DAILY P RN skin 08/05/23 12/18/24 topical cream condition blood-glucose meter (True Metrix #1 ea 02/03/24 Glucose Meter) metoprolol succinate 25 mg 25 mg PO DAILY 06/29/24 tablet,extended release 24 hr polyethylene glycol 3350 17 17 g PO DAILY PRN constipa tion 06/29/24 12/18/24 gram/dose oral powder ketoconazole 2 % topical cream 1 applic topical DAILY 09/07/24 12/18/24 nortriptyline 10 mg capsule 10 mg PO DAILY 09/07/24 Previous Rx's ?Medication ?Instructions ?Recorded magnesium oxide 400 mg (241.3 mg 400 mg PO DAILY #30 t abs 07/18/22 magnesium) tablet lancets #100 ea 12/01/22 terazosin 2 mg capsule 2 mg PO QPM #90 caps 10/22/ 4 glucose monitor #1 ea 12/28/23 glucose test strips #100 ea 12/28/23 levothyroxine 25 mcg tablet 25 mcg PO DAILY #90 tabs 0 01/26/24 rivaroxaban 20 mg tablet (Xarelto) 20 mg PO DAILY #90 tabs 02/26/24 aripiprazole 30 mg tablet 30 mg PO BEDTIME #90 tabs albuterol sulfate 90 mcg/actuation 2 puff inhalation Q 6H PRN 07/12/24 aerosol inhaler shortness of breath or wheez ing #8.5 grams pen needle, diabetic 32 gauge x #100 ea 07/15/24 (Sure Comfort Pen Needle) pregabalin 300 mg capsule 300 mg PO BID #180 caps 08/23 11/16 spironolactone 25 mg tablet 25 mg PO DAILY #90 tabs empagliflozin 10 mg tablet 10 mg PO DAILY #30 tabs 10/16 (Jardiance) tirzepatide 7.5 mg/0.5 mL 7.5 mg (0.5 mL) SUBCUT QWEEK #2 mL 10/19/24 subcutaneous pen injector omeprazole 20 mg capsule,delayed 20 mg PO BID #180 cap s 11/17/24 release fluticasone propionate 115 2 puff inhalation BID #12 g shante 11/21/24 mcg-salmeterol 21 mcg/actuation HFA inhaler (Advair HFA) cyclobenzaprine 10 mg tablet 10 mg PO 3XD PRN for musc le spasm 11/28/24 #90 tabs lithium carbonate 300 mg capsule 300 mg PO BEDTIME #90 caps 12/01/24 atorvastatin 10 mg tablet 10 mg PO DAILY #90 tabs 11/22 06/18 ipratropium bromide 17 1 puff PO Q8H #12.9 grams mcg/actuation HFA aerosol inhaler (Atrovent HFA) Allergies Allergy/AdvReac Type Severity Reaction Status Date / Time carisoprodol (CARISOPRODOL) AdvReac Severe urinary Verified 12/18/24 23:09 retention fosphenytoin AdvReac Severe Seizures Verified 12/18/24 23:09 Latex, Natural Rubber AdvReac Mild Rash Verified 12/18/24 23:09 risperidone (From Risperdal) AdvReac urinary Verified 12/18/24 23:09 retention Review of Systems <Jagjit Hall MD - Last Filed: 12/19/24 10:58> Review of Systems ROS Unobtainable: All systems reviewed & are unremarkable except as noted in HPI and below Patient History <Dong Hill MD - Last Filed: 12/19/24 15:25> Medical History (Updated 12/19/24 @ 01:27 by Dong Hill MD) Facet arthropathy, lumbar Cervical radiculopathy Nocturnal hypoxemia 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) 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 Hypoxia Sinus tachycardia RBBB (right bundle branch block) Tobacco abuse Psychogenic nonepileptic seizure Alcoholism DVT (deep venous thrombosis) Narcotic habituation, continuous Pulmonary embolism Morbid obesity LYLA (obstructive sleep apnea) Acetaminophen overdose of undetermined intent (12/2015) Suicide attempt Intraoperative cardiac arrest during non-cardiac surgery (11/2013) Ovarian cyst Plantar fasciitis 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 Cubital tunnel syndrome Status post laminectomy (12/14/15) Gastroesophageal reflux disease without esophagitis (03/02/15) Fibromyalgia (03/02/15) Tylenol overdose Obstipation Surgical History S/P lumbar spinal fusion H/O: hysterectomy Hx of toe surgery (05/16/20) History of carpal tunnel repair (~10/30/14) History of laminectomy (~09/2016) History of laminectomy History of colonoscopy History of esophagogastroduodenoscopy (EGD) History of lumbar spinal fusion (12/22/18) S/P epidural steroid injection (11/2013) Status post dilation and curettage (2008) Family History Grandfather Diabetes mellitus Family/Other Pancreatic cancer Social History household members: spouse alcohol intake: current eating out: 1-3 times/week Type(s) of exercise: normal ROM and activity and sedentary lifestyle Smoking Status: Current some day smoker tobacco type: cigarettes and cigars alcohol intake frequency: other Alcohol type: hard liquor Exam <Dong Hill MD - Last Filed: 12/19/24 15:25> Narrative Exam Narrative: GENERAL: Well-developed patient, in mild distress. HEAD: Atraumatic. Normocephalic. EYES: Pupils equal round and reactive. Extraocular motions intact. No scleral icterus. No injection or drainage. ENT: Nose without bleeding, purulent drainage. Throat without erythema, tonsillar hypertrophy or exudate. Airway patent. NECK: Trachea midline. Non tender CARDIOVASCULAR: Regular rate and rhythm without murmurs, gallops, or rubs. RESPIRATORY: Clear to auscultation. Breath sounds equal bilaterally. No wheezes, rales, or rhonchi. GASTROINTESTINAL: Abdomen soft, non-tender, nondistended. EXTREMITIES: No edema or joint tenderness. BACK: Nontender without deformity or crepitance. No flank tenderness. NEURO: AOx3. Motor functions grossly nonfocal. SKIN: No rash or erythema of visible areas Initial Vital Signs Initial Vital Signs: Vital Signs Temperature 98.3 F 12/18/24 23:16 Pulse Rate 115 H 12/18/24 23:16 Respiratory Rate 16 12/18/24 23:16 Blood Pressure 132/74 12/18/24 23:16 Pulse Oximetry 99 12/18/24 23:16 Oxygen Delivery Method Room Air 12/18/24 23:16 <Jagjit Hall MD - Last Filed: 12/19/24 10:58> Initial Vital Signs Initial Vital Signs: Vital Signs Temperature 98.3 F 12/18/24 23:16 Pulse Rate 115 H 12/18/24 23:16 Respiratory Rate 16 12/18/24 23:16 Blood Pressure 132/74 12/18/24 23:16 Pulse Oximetry 99 12/18/24 23:16 Oxygen Delivery Method Room Air 12/18/24 23:16 Course <Dong Hill MD - Last Filed: 12/19/24 15:25> Orders Ordered: ED Orders 12/18/24 23:56 Consult to [facility] - Grocery Supervisor Stat Acetaminophen Stat [place] Stat Salicylate Stat 12/18/24 23:57 Complete Blood Count AUTO DIFF Stat Comprehensive Metabolic Panel Stat Ethanol (ETOH) Stat TSH w/ Reflex to FT4 Stat EKG-12 Lead Stat 12/19/24 00:27 Urine Drug Screen, Rapid Stat Urine Microscopic Stat Vital Signs Vital signs: Vital Signs - 8 hr 12/19/24 07:30 12/19/24 08:00 12/19/24 08:00 Temperature 98 F Pulse Rate 99 H 99 H Respiratory Rate Blood Pressure 115/65 Pulse Oximetry 94 93 Oxygen Delivery Method 12/19/24 08:30 12/19/24 09:00 12/19/24 09:00 Temperature Pulse Rate 90 102 H Respiratory Rate Blood Pressure 109/73 Pulse Oximetry 93 94 Oxygen Delivery Method 12/19/24 11:12 Temperature 98.6 F Pulse Rate 88 Respiratory Rate 16 Blood Pressure 122/69 Pulse Oximetry 99 Oxygen Delivery Method Room Air <Jagjit Hall MD - Last Filed: 12/19/24 10:58> Orders Ordered: ED Orders 12/18/24 23:56 Consult to [facility] - Grocery Supervisor Stat Acetaminophen Stat [place] Stat Salicylate Stat 12/18/24 23:57 Complete Blood Count AUTO DIFF Stat Comprehensive Metabolic Panel Stat Ethanol (ETOH) Stat TSH w/ Reflex to FT4 Stat EKG-12 Lead Stat 12/19/24 00:27 Urine Drug Screen, Rapid Stat Urine Microscopic Stat Vital Signs Vital signs: Vital Signs - 8 hr 12/19/24 07:30 12/19/24 08:00 12/19/24 08:00 Temperature 98 F Pulse Rate 99 H 99 H Respiratory Rate Blood Pressure 115/65 Pulse Oximetry 94 93 Oxygen Delivery Method 12/19/24 08:30 12/19/24 09:00 12/19/24 09:00 Temperature Pulse Rate 90 102 H Respiratory Rate Blood Pressure 109/73 Pulse Oximetry 93 94 Oxygen Delivery Method 12/19/24 11:12 Temperature 98.6 F Pulse Rate 88 Respiratory Rate 16 Blood Pressure 122/69 Pulse Oximetry 99 Oxygen Delivery Method Room Air MDM - Psych <Dong Hill MD - Last Filed: 12/19/24 15:25> Lab Data Attestation: I reviewed the patient's lab results. Lab results narrative: White blood cell count 6400, hemoglobin 13.1, platelets adequate. Glucose 116. Normal renal functions, serum CO2, electrolytes. Liver functions normal. Acetaminophen, salicylate, ethanol level negative. [place] level not measurable. TSH normal. UDS positive for tricyclic antidepressant, otherwise negative. Urine dip negative. 12/19/24 00:15 12/19/24 00:15 Labs: Lab Results 12/19/24 12/19/24 Range/Units 00:15 00:27 WBC 6.4 (4.5-11.0) X10^3/uL RBC 4.43 (4.0-5.2) X10^6/uL Hgb 13.1 (12.0-16.0) g/dL Hct 38.4 (36-46) % MCV 86.6 (80-100) fL MCH 29.5 (26-34) PG MCHC 34.1 (30-36) % RDW 13.3 (11.6-14.8) % Plt Count 222 (150-400) X10^3/uL Neut % (Auto) 59.0 (50-75) % Lymph % (Auto) 29.6 (25-40) % [place] % (Auto) 8.6 (3-14) % Eos % (Auto) 2.3 (2-4) % Baso % (Auto) 0.5 (0-2) % Neut # (Auto) 3800 (5080-7792) /uL Lymph # (Auto) 1900 (8135-0354) /uL [place] # (Auto) 500 (0-900) /uL Eos # (Auto) 100 (0-450) /uL Baso # (Auto) 0 (0-100) /uL Sodium 140 (137-145) mmol/L Potassium 4.4 (3.4-5.1) mmol/L Chloride 106 (98-107) mmol/L Carbon Dioxide 26 (22-32) mmol/L BUN 10 (7-17) mg/dL Creatinine 0.58 (0.52-1.04) mg/dL Estimated GFR > 60 (>60) mL/min BUN/Creatinine Ratio 17.2 (6-22) Glucose 116 H (70-99) mg/dL Calcium 9.2 (8.4-10.2) mg/dL Total Bilirubin 0.4 (0.2-1.3) mg/dL AST 24 (14-36) IU/L ALT 14 (<35) IU/L Alkaline Phosphatase 41 (38-126) U/L Total Protein 7.7 (6.3-8.2) g/dL Albumin 4.3 (3.5-5.0) g/dL Globulin 3.4 (1.7-4.1) g/dL Albumin/Globulin Ratio 1.3 (1.0-2.8) TSH 3.12 (0.47-4.68) uIU/mL Urine RBC None seen (0-5/HPF) Urine WBC None seen (0-5/HPF) Ur Squamous Epith Cells 1-5 /hpf (0-5/HPF) Urine Bacteria None seen (None) Ur Culture Indicated? Cult not indicated Vol Urine Centrifuged 10ml (spun) Salicylates < 1.0 (<20) mg/dL U Opiates 300ng/mL cut Negative (Negative) Ur Oxycodone Screen Negative (Negative) Urine Methadone Screen Negative (Negative) Acetaminophen < 10 (10-30) ug/mL Ur Barbiturates Screen Negative (Negative) U Tricyclic Antidepress Positive H (Negative) Ur Phencyclidine Scrn Negative (Negative) Ur Amphetamines Screen Negative (Negative) U Methamphetamines Scrn Negative (Negative) Ur MDMA Scrn (Ecstasy) Negative (Negative) U Benzodiazepines Scrn Negative (Negative) [place] < 0.2 L (0.6-1.2) mmol/L Urine Cocaine Screen Negative (Negative) U Marijuana (THC) Screen Negative (Negative) Urine pH TNP Urine Specific [place] TNP Ethyl Alcohol < 10 (<10) mg/dL Ur Creatinine TNP Urine Dip Bedside Urine Glucose 1000 mg/dl Bedside Urine Bilirubin - Negative Bedside Urine Ketone - Negative Urine Specific [place] 1.010 Bedside Urine Occult Blood - Negative Bedside Urine pH 7.5 Bedside Urine Protein - Negative Bedside Urine Urobilinogen - Negative Bedside Urine Nitrite - Negative Bedside Urine Leukocytes - Negative Esterase ECG Data Attestation: I personally reviewed and interpreted this ECG as follows: Interpretation: 0403, sinus tachycardia with rate 101. Right bundle branch block pattern. DC 150, QRS 132, QTC 479. MDM Narrative Medical decision making narrative: 44-year-old female with history of depression followed by same mental health provider Dr. Roberts for the last couple of years, more recently diagnosed with bipolar disorder 3 months ago for which he has been started on lithium, taking the lithium doses, since yesterday having visual hallucination seeing spiders. Occasional alcohol use, occasional vaping use with no change in intake or product. Afebrile, sirs screen negative. Does not seem to be any particular distress at this time. No SI/HI symptoms. She would like to talk to social worker assistant when available. Screening labs sent including lithium and TSH levels. Labs data: White blood cell count 6400, hemoglobin 13.1, platelets adequate. Glucose 116. Normal renal functions, serum CO2, electrolytes. Liver functions normal. Acetaminophen, salicylate, ethanol level negative. [place] level not measurable. TSH normal. UDS positive for tricyclic antidepressant, otherwise negative. Urine dip negative. History of sleep apnea, desaturation with sleep, supplemental oxygen nasal cannula applied. 0700, social worker assistant consult later today per patient request, voluntary, no SI/HI, screening labs unremarkable. Signed out to [facility] ED shift physician Dr Hall. volunteer services supervisor came by and spoke with patient. Patient continues to deny any SI/HI. The patient is stable at this time and will continue with her lithium as well as Abilify. She is denying any hallucinations at this time. Patient will be safely discharged with a follow-up psychiatric appointment that was made. <Jagjit Hall MD - Last Filed: 12/19/24 10:58> Differential Diagnosis Differential diagnosis: Likely acute psychosis, bipolar disorder and drug- induced psychotic disorder Condition is:: Well Controlled Lab Data Labs: Lab Results 12/19/24 12/19/24 Range/Units 00:15 00:27 WBC 6.4 (4.5-11.0) X10^3/uL RBC 4.43 (4.0-5.2) X10^6/uL Hgb 13.1 (12.0-16.0) g/dL Hct 38.4 (36-46) % MCV 86.6 (80-100) fL MCH 29.5 (26-34) PG MCHC 34.1 (30-36) % RDW 13.3 (11.6-14.8) % Plt Count 222 (150-400) X10^3/uL Neut % (Auto) 59.0 (50-75) % Lymph % (Auto) 29.6 (25-40) % [place] % (Auto) 8.6 (3-14) % Eos % (Auto) 2.3 (2-4) % Baso % (Auto) 0.5 (0-2) % Neut # (Auto) 3800 (9183-0941) /uL Lymph # (Auto) 1900 (9568-5777) /uL [place] # (Auto) 500 (0-900) /uL Eos # (Auto) 100 (0-450) /uL Baso # (Auto) 0 (0-100) /uL Sodium 140 (137-145) mmol/L Potassium 4.4 (3.4-5.1) mmol/L Chloride 106 (98-107) mmol/L Carbon Dioxide 26 (22-32) mmol/L BUN 10 (7-17) mg/dL Creatinine 0.58 (0.52-1.04) mg/dL Estimated GFR > 60 (>60) mL/min BUN/Creatinine Ratio 17.2 (6-22) Glucose 116 H (70-99) mg/dL Calcium 9.2 (8.4-10.2) mg/dL Total Bilirubin 0.4 (0.2-1.3) mg/dL AST 24 (14-36) IU/L ALT 14 (<35) IU/L Alkaline Phosphatase 41 (38-126) U/L Total Protein 7.7 (6.3-8.2) g/dL Albumin 4.3 (3.5-5.0) g/dL Globulin 3.4 (1.7-4.1) g/dL Albumin/Globulin Ratio 1.3 (1.0-2.8) TSH 3.12 (0.47-4.68) uIU/mL Urine RBC None seen (0-5/HPF) Urine WBC None seen (0-5/HPF) Ur Squamous Epith Cells 1-5 /hpf (0-5/HPF) Urine Bacteria None seen (None) Ur Culture Indicated? Cult not indicated Vol Urine Centrifuged 10ml (spun) Salicylates < 1.0 (<20) mg/dL U Opiates 300ng/mL cut Negative (Negative) Ur Oxycodone Screen Negative (Negative) Urine Methadone Screen Negative (Negative) Acetaminophen < 10 (10-30) ug/mL Ur Barbiturates Screen Negative (Negative) U Tricyclic Antidepress Positive H (Negative) Ur Phencyclidine Scrn Negative (Negative) Ur Amphetamines Screen Negative (Negative) U Methamphetamines Scrn Negative (Negative) Ur MDMA Scrn (Ecstasy) Negative (Negative) U Benzodiazepines Scrn Negative (Negative) [place] < 0.2 L (0.6-1.2) mmol/L Urine Cocaine Screen Negative (Negative) U Marijuana (THC) Screen Negative (Negative) Urine pH TNP Urine Specific [place] TNP Ethyl Alcohol < 10 (<10) mg/dL Ur Creatinine TNP Urine Dip Bedside Urine Glucose 1000 mg/dl Bedside Urine Bilirubin - Negative Bedside Urine Ketone - Negative Urine Specific [place] 1.010 Bedside Urine Occult Blood - Negative Bedside Urine pH 7.5 Bedside Urine Protein - Negative Bedside Urine Urobilinogen - Negative Bedside Urine Nitrite - Negative Bedside Urine Leukocytes - Negative Esterase MDM Narrative Medical decision making narrative: 44-year-old female with history of depression followed by same mental health provider Dr. Martinez for the last couple of years, more recently diagnosed with bipolar disorder 3 months ago for which he has been started on lithium, taking the lithium doses, since yesterday having visual hallucination seeing spiders. Occasional alcohol use, occasional vaping use with no change in intake or product. Afebrile, sirs screen negative. Does not seem to be any particular distress at this time. No SI/HI symptoms. She would like to talk to social worker assistant when available. Screening labs sent including lithium and TSH levels. Labs data: White blood cell count 6400, hemoglobin 13.1, platelets adequate. Glucose 116. Normal renal functions, serum CO2, electrolytes. Liver functions normal. Acetaminophen, salicylate, ethanol level negative. [place] level not measurable. TSH normal. UDS positive for tricyclic antidepressant, otherwise negative. Urine dip negative. History of sleep apnea, desaturation with sleep, supplemental oxygen nasal cannula applied. 0700, social worker assistant consult later today per patient request, voluntary, no SI/HI, screening labs unremarkable. Signed out to [facility] ED shift physician Dr Hall. volunteer services supervisor came by and spoke with patient. Patient continues to deny any SI/HI. The patient is stable at this time and will continue with her lithium as well as Abilify. She is denying any hallucinations at this time. Patient will be safely discharged with a follow-up psychiatric appointment that was made. Discharge Plan Departure Patient Disposition: Home Clinical Impression: Visual hallucination, History of bipolar disorder Instructions: DI for Bipolar Disorder Activity Restrictions/Additional Instructions: Follow up with Psychiatry as planned. Continue with Abilify and lithium. Prescriptions: No Action Mounjaro 7.5 mg/0.5 mL pen injector 7.5 mg SUBCUT QWEEK Qty: 2 3RF albuterol sulfate 90 mcg/actuation HFA aerosol inhaler 2 puff inhalation Q6H PRN (Reason: shortness of breath or wheezing) Qty: 8.5 2RF nortriptyline 10 mg capsule 10 mg PO DAILY ketoconazole 2 % cream 1 applic topical DAILY spironolactone 25 mg tablet 25 mg PO DAILY Qty: 90 3RF ferrous sulfate 325 mg (65 mg iron) tablet 325 mg PO DAILY vitamin B complex Tablet 1 tab PO DAILY metoprolol succinate 25 mg tablet extended release 24 hr 25 mg PO DAILY polyethylene glycol 3350 17 gram/dose powder 17 g PO DAILY PRN (Reason: constipation) Patient Comments: DOSE ONE MIX WITH 64 OZ OF GATORADE. FOLLOW WITH DOSE TWO. aripiprazole 30 mg tablet 30 mg PO BEDTIME Qty: 90 3RF Rx Instructions: Take one 30mg tablet by mouth daily lithium carbonate 300 mg capsule 300 mg PO BEDTIME Qty: 90 3RF magnesium oxide 400 mg (241.3 mg magnesium) tablet 400 mg PO DAILY Qty: 30 0RF (DME) lancets See Rx Instructions .Route .MEDSUPPLY Qty: 100 3RF Rx Instructions: to test blood glucose daily terazosin 2 mg capsule 2 mg PO QPM Qty: 90 0RF (DME) glucose monitor See Rx Instructions .Route .MEDSUPPLY Qty: 1 0RF Rx Instructions: To test blood glucose daily (DME) glucose test strips See Rx Instructions .Route .MEDSUPPLY Qty: 100 3RF Rx Instructions: To test blood glucose daily levothyroxine 25 mcg tablet 25 mcg PO DAILY Qty: 90 3RF Xarelto 20 mg tablet 20 mg PO DAILY Qty: 90 3RF (DME) pen needle, diabetic [Sure Comfort Pen Needle] 32 gauge x 5/32 needle See Rx Instructions .ROUTE .COMPLEX Qty: 100 0RF Dose Instruction: USE WITH LEVEMIR DAILY DIRECTED Rx Instructions: USE WITH [place] DAILY DIRECTED pregabalin 300 mg capsule 300 mg PO BID Qty: 180 3RF Rx Instructions: take 1 capsule by mouth twice a day Jardiance 10 mg tablet 10 mg PO DAILY Qty: 30 2RF omeprazole 20 mg capsule,delayed release(DR/EC) 20 mg PO BID Qty: 180 0RF fluticasone propion-salmeterol [Advair HFA] 115-21 mcg/actuation HFA aerosol inhaler 2 puff inhalation BID Qty: 12 0RF cyclobenzaprine 10 mg tablet 10 mg PO 3XD PRN (Reason: for muscle spasm) Qty: 90 0RF Atrovent HFA 17 mcg/actuation HFA aerosol inhaler 1 puff PO Q8H Qty: 12.9 0RF atorvastatin 10 mg tablet 10 mg PO DAILY Qty: 90 3RF ascorbic acid (vitamin C) 500 mg tablet 500 mg PO DAILY potassium gluconate 595 mg (99 mg) tablet 595 mg PO DAILY (DME) True Metrix Glucose Test Strip Strip See Rx Instructions .ROUTE DAILY Qty: 10 Rx Instructions: As directed (DME) lancets [Micro Thin Lancets] 33 gauge [facility] See Rx Instructions .ROUTE DAILY Qty: 100 Rx Instructions: As directed ketoconazole 2 % shampoo 1 applic topical DAILY PRN (Reason: yeast) triamcinolone acetonide 0.1 % cream 1 applic topical DAILY PRN (Reason: skin condition) acetaminophen [Tylenol Extra Strength] 500 mg tablet 1,000 mg PO Q6H PRN (Reason: pain) (DME) blood-glucose meter [facility] Met[facility] M[facility] See Rx Instructions .ROUTE DAILY Qty: 1 Rx Instructions: As directed Referrals: Alejandra Lynch MD [Primary Care Provider, Family Practice] Stand Alone Forms: Patient Portal/API
--- NOTE | 2024-12-18 23:57 | EKG_ITS ---
[address] [address] Test Date: 2024-12-19 Pat Name: Nuvia Alvarado Department: [facility] Room: Gender: Female Referral Manager: : [id number] Requested By: Order Number: [id number] Reading MD: Andrew Sanchez Measurements Intervals [place] Rate: 101 P: 57 NH: 150 QRS: 12 QRSD: 132 T: 9 QT: 370 QTc: 479 Interpretive Statements Sinus tachycardia Right bundle branch block Electronically Signed On 12-30-2024 8:46:23 PDT by Andrew Sanchez
[2024-12-19] VITALS (16 sets, daily range): BP systolic 109–140; BP diastolic 57–78; PULSE 88–107; RESP 16–18; TEMP 36.6–37; O2SAT 93–99
[2024-12-19 00:36] LABS: Add Manual Diff / Slide Review NO; Hematocrit 38.4 % (36-46); Hemoglobin 13.1 g/dL (12.0-16.0); Lymphocytes Absolute Auto 1900 /uL (1100-4500); Mean Corpuscular HGB Conc 34.1 % (30-36); Mean Corpuscular Hemoglobin 29.5 PG (26-34); Mean Corpuscular Volume 86.6 fL (80-100); Platelet Count 222 X10^3/uL (150-400)
[2024-12-19 00:45] LABS: Urine MDMA Negative (Negative); Urine Methamphetamines Negative (Negative); Urine THC Negative (Negative); Urine Tricyclic Antidepressant Positive (Negative)
[2024-12-19 00:54] LABS: Culture Indicated Urine Cult Not Indicated
[2024-12-19 01:14] LABS: Acetaminophen < 10 ug/mL (10-30); Salicylate < 1.0 mg/dL (<20)
[2024-12-19 01:15] LABS: Alanine Aminotransferase 14 IU/L (<35); Albumin 4.3 g/dL (3.5-5.0); Albumin Globulin Ratio 1.3 (1.0-2.8); Alkaline Phosphatase 41 U/L (38-126); Blood Urea Nitrogen 10 mg/dL (7-17); Calcium 9.2 mg/dL (8.4-10.2); Carbon Dioxide 26 mmol/L (22-32); Chloride 106 mmol/L (98-107); Estimated Glomerular Filt Rate > 60 mL/min (>60); Ethanol (ETOH) < 10 mg/dL (<10); Globulin 3.4 g/dL (1.7-4.1); Glucose 116 mg/dL (70-99); HEMOLYSIS 84 (0-50); Potassium 4.4 mmol/L (3.4-5.1); Sodium 140 mmol/L (137-145); Total Protein 7.7 g/dL (6.3-8.2)
[2024-12-19 01:16] LABS: Lithium < 0.2 mmol/L (0.6-1.2)
[2024-12-19 02:05] LABS: TSH w/ Reflex to FT4 3.12 uIU/mL (0.47-4.68)
--- NOTE | 2024-12-19 07:38 | PC.NURSE ---
Pt denies audio or visual hallucinations at this time. Pt denies pain, NAD, RA, A&Ox4, breathing even/equal/unlabored at this time. Call light within reach, no other needs at this time.
--- NOTE | 2024-12-19 07:51 | PC.NURSE ---
Breakfast safety tray given to pt with spoon
--- NOTE | 2024-12-19 10:14 | CM.SWNOTE ---
ED SUBASSEMBLY ASSEMBLER Assessment Note Patient presents to the ED due to concern for visual hallucinations at home. Patient has been seeing spiders. Patient has been in the ED for the last 10 hours and denies any visual hallucinations while here. Patient's PCP is Dr. Lynch, patient sees Psychiatrist Dr. Roberts and therapist DAHIANA Guerrero at [facility]. SUBASSEMBLY ASSEMBLER enters room to meet with patient, present in room is patient's spouse. Patient gives consent for spouse to be present. Patient presents as A/Ox4, calm, coherent, communicative. Patient denies any current hallucinations. Patient denies SI and HI. Patient endorses that she started having visual hallucinations last night at home, patient states prior to that she experienced visual hallucinations a few months ago in response to Buproprion medication, patient is no longer prescribed this. Per EMR, Patient is prescribed 30 mg apriprizole and 300 mg of lithium. Patient recently saw Psychiatrist and the dosage of lithium was reduced from 600mg to 300mg due to concern for GI side effects. Patient endorses she has been taking rx as prescribed, patient denied any medication changes, patient endorses she is constantly experiencing stress about little things. Patient endorses she does not get enough sleep, has a fine appetite and has been able to engage in daily activities. Patient states that due to balance issues she has been using a FWW. Patient denies hx of hospitalization, patient endorses preference to d/c to home. Patient endorses she has two dogs at home. SUBASSEMBLY ASSEMBLER inquires about reaching out to patient's providers and patient gives consent. SUBASSEMBLY ASSEMBLER calls [facility] clinic and schedules f/u appt with Dr. Roberts for Thursday01/02/25 at 2:30 via telehealth per patient's request. Patient also sees therapist DAHIANA Guerrero on 12/28/24. Patient denies any other SUBASSEMBLY ASSEMBLER needs at this time and states that she feels okay. It is the opinion of this SUBASSEMBLY ASSEMBLER that patient is safe to d/c to home upon medical clearance. SUBASSEMBLY ASSEMBLER reviews this with ED provider Dr. Hall who indicates agreement and understanding. Plan: patient to d/c to home upon medical clearance with spouse, patient to f/u with outpatient providers with upcoming appts. LIZA Dennis
== END 2024-12-19 11:14 | disposition home or self-care (01) ==
PROVIDERS: Emergency Medicine; Emergency Provider Family Medicine; PCP Family Medicine
DX: R44.1 Visual hallucinations (principal); F31.9 Bipolar disorder, unspecified; F10.90 Alcohol use, unspecified, uncomplicated; R00.0 Tachycardia, unspecified; Y90.0 Blood alcohol level of less than 20 mg/100 ml
CPT/HCPCS: 36415; 80053; 80178; 80305; 80320; 80329; 81003; 81015; 84443; 85025; 93005; 99284; G0480

== ENCOUNTER → 2025-02-03 12:18 | Outpatient (CLI) | payer OTHER, MEDICARE, SELFPAY ==
[2024-01-19 14:23] VITALS: BMI 50.6
--- NOTE | 2025-02-03 12:21 | DI.US.S_ITS ---
PROCEDURE: US ARTERIAL DUPLEX LE RT INDICATIONS: Type 2 diabetes mellitus and pain TECHNIQUE: Color and pulse Doppler interrogation was performed of the right lower extremity arterial system, with image documentation. COMPARISON: None. FINDINGS: Right lower extremity: Triphasic waveform Common femoral artery: 103 cm/sec Deep femoral artery: 81 cm/sec Proximal superficial femoral artery: 90 cm/sec Mid superficial femoral artery: 72 cm/sec Distal superficial femoral artery: 71 cm/sec Popliteal artery: 59 cm/sec Posterior tibial artery: 71 cm/sec Anterior tibial artery/dorsalis pedis: 38 cm/sec Waterman-scale imaging description: Unremarkable IMPRESSION: Unremarkable duplex arterial ultrasound of right lower extremity Approved by: Yuri Mccoy M.D. on 02/06/2025 at 12:25
== END ==
LOC: US 12:20
PROVIDERS: PCP Family Medicine; Referring Provider Podiatrist; Visit Provider Podiatrist
DX: E11.51 Type 2 diabetes mellitus with diabetic peripheral angiopathy without gangrene (principal); M79.661 Pain in right lower leg
CPT/HCPCS: 93926

== ENCOUNTER 2025-03-22 13:27 | Emergency (ER) | payer OTHER, MEDICARE, SELFPAY ==
[2024-01-19 14:23] VITALS: BMI 50.6
[2025-03-22 13:31] VITALS: BP 125/79; PULSE 115; RESP 18; TEMP 37.1; O2SAT 99; BMI 42.4
[2025-03-22 15:33] VITALS: BP 124/75; PULSE 99; RESP 18; O2SAT 97
--- NOTE | 2025-03-22 17:26 | ED.BACK ---
HPI - Back Pain/Injury <Blair Draper PA-C - Last Filed: 03/22/25 17:32> General Chief Complaint: Back Pain/Injury Stated Complaint: really bad low back pain Time Seen by Provider: 03/22/25 14:29 Source: patient History of Present Illness HPI Narrative: 44-year-old female with past medical history depression, anxiety, alcohol abuse, opiate use, fibromyalgia, asthma, diabetes, PE, psychogenic nonepileptic seizures, chronic low back pain presents to the ED for an acute on chronic exacerbation of the lower back pain. Patient states that the pain is on the right lower back, wraps around to her groin. Does not radiate down the leg. No numbness, tingling, weakness, urinary hesitancy, urinary incontinence. Patient has been taking Tylenol with no relief. Patient is unable to take ibuprofen since she is on Xarelto for a PE. Related Data Home Medications ?Medication ?Instructions ?Recorded ?Confirmed ascorbic acid (vitamin C) 500 mg 500 mg PO DAILY 07/28/22 03/01/25 tablet potassium gluconate 595 mg (99 mg) 595 mg PO DAILY 07/28/22 03/01/25 tablet ferrous sulfate 325 mg (65 mg 325 mg PO DAILY 12/03/22 03/01/25 iron) tablet vitamin B complex 1 tab PO DAILY 12/03/22 03/01/25 acetaminophen 500 mg tablet 1,000 mg PO Q6H PRN pain 08/05/23 03/01/25 (Tylenol Extra Strength) blood sugar diagnostic (True #10 ea 08/05/23 03/01/25 Metrix Glucose Test Strip) ketoconazole 2 % shampoo 1 applic topical DAILY PRN yeast 08/05/23 03/01/25 lancets 33 gauge (Micro Thin #100 ea 08/05/23 03/01/25 Lancets) triamcinolone acetonide 0.1 % 1 applic topical DAILY PRN skin 08/05/23 03/01/25 topical cream condition blood-glucose meter (True Metrix #1 ea 02/03/24 03/01/25 Glucose Meter) metoprolol succinate 25 mg 25 mg PO DAILY 06/29/24 03/01/25 tablet,extended release 24 hr polyethylene glycol 3350 17 17 g PO DAILY PRN constipation 06/29/24 03/01/25 gram/dose oral powder ketoconazole 2 % topical cream 1 applic topical DAILY 09/07/24 03/01/25 nortriptyline 10 mg capsule 10 mg PO DAILY 09/07/24 03/01/25 Previous Rx's ?Medication ?Instructions ?Recorded magnesium oxide 400 mg (241.3 mg 400 mg PO DAILY #30 tabs 07/18/22 magnesium) tablet lancets #100 ea 12/01/22 terazosin 2 mg capsule 2 mg PO QPM #90 caps 10/23/23 glucose monitor #1 ea 12/28/23 glucose test strips #100 ea 12/28/23 albuterol sulfate 90 mcg/actuation 2 puff inhalation Q6H PRN 07/12/24 aerosol inhaler shortness of breath or wheezing #8.5 grams pen needle, diabetic 32 gauge x #100 ea 07/15/24 (Sure Comfort Pen Needle) spironolactone 25 mg tablet 25 mg PO DAILY #90 tabs 09/13/24 lithium carbonate 300 mg capsule 300 mg PO BEDTIME #90 caps 12/01/24 atorvastatin 10 mg tablet 10 mg PO DAILY #90 tabs 12/02/24 ipratropium bromide 17 1 puff PO Q8H #12.9 grams 12/02/24 mcg/actuation HFA aerosol inhaler (Atrovent HFA) desvenlafaxine succinate 50 mg 50 mg PO DAILY #30 tabs 01/02/25 tablet,extended release 24 hr empagliflozin 10 mg tablet 10 mg PO DAILY #30 tabs 01/02/25 (Jardiance) rivaroxaban 20 mg tablet (Xarelto) 20 mg PO DAILY #90 tabs 01/19/25 tirzepatide 7.5 mg/0.5 mL 7.5 mg (0.5 mL) SUBCUT QWEEK #2 mL 02/10/25 subcutaneous pen injector levothyroxine 25 mcg tablet 25 mcg PO DAILY #90 tabs 02/15/25 fluticasone propionate 115 2 puff PO BID #36 grams 02/20/25 mcg-salmeterol 21 mcg/actuation HFA inhaler aripiprazole 30 mg tablet 30 mg PO BEDTIME #90 tabs 02/23/25 desvenlafaxine succinate 100 mg 100 mg PO DAILY #30 tabs 02/23/25 tablet,extended release 24 hr cyclobenzaprine 10 mg tablet 10 mg PO 3XD PRN for muscle spasm 02/27/25 #90 tabs esomeprazole magnesium 40 mg 40 mg PO DAILY #30 caps 03/01/25 capsule,delayed release pregabalin 300 mg capsule 300 mg PO BID #180 caps 03/10/25 tramadol 50 mg tablet 50 mg PO TID PRN pain 3 days #10 03/22/25 tabs Allergies Allergy/AdvReac Type Severity Reaction Status Date / Time carisoprodol (CARISOPRODOL) AdvReac Severe urinary Verified 01/25/25 08:17 retention fosphenytoin AdvReac Severe Seizures Verified 01/25/25 08:17 Latex, Natural Rubber AdvReac Mild Rash Verified 01/25/25 08:17 risperidone (From Risperdal) AdvReac urinary Verified 01/25/25 08:17 retention Review of Systems <Blair Draper PA-C - Last Filed: 03/22/25 17:32> Constitutional Constitutional: Denies chills, Denies fatigue, Denies fever(s), Denies frequent falls, Denies lethargy and Denies weakness Eyes Eyes: Denies change in vision, Denies eye discharge, Denies irritation and Denies loss of vision ENT Ears, Nose, Mouth, and Throat: Denies change in voice, Denies dizziness, Denies neck pain, Denies sore throat and Denies throat swelling Cardiovascular Cardiovascular: Denies chest pain, Denies irregular heart rhythm, Denies lightheadedness, Denies palpitations, Denies dyspnea, Denies dyspnea on exertion and Denies orthopnea Respiratory Respiratory: Denies cough, Denies dyspnea, Denies dyspnea on exertion and Denies wheezing Gastrointestinal Gastrointestinal: Denies abdominal pain, Denies change in bowel habits, Denies diarrhea, Denies nausea and Denies vomiting Musculoskeletal Musculoskeletal: Reports back pain, Denies neck pain and Denies numbness Integumentary/Breasts Skin/Breast: Denies pruritus, Denies erythema, Denies rash and Denies wounds Neurologic Neurologic: Denies behavioral changes, Denies confusion, Denies dizziness, Denies frequent falls, Denies loss of vision, Denies numbness and Denies weakness Psychiatric Psychiatric: Denies anxiety, Denies behavioral changes, Denies confusion, Denies depression, Denies homicidal ideation and Denies suicidal ideation Endocrine Endocrine: Denies fatigue, Denies flushing and Denies palpitations Hematologic/Lymphatic Hematologic/Lymphatic: Denies easy bruising Allergic/Immunologic Allergic/Immunologic: Denies urticaria, Denies throat swelling and Denies wheezing Patient History <Blair Draper PA-C - Last Filed: 03/22/25 17:32> Medical History Facet arthropathy, lumbar Cervical radiculopathy Nocturnal hypoxemia granulating 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 associated with adverse incidents (~2011) 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 Hypoxia Sinus tachycardia RBBB (right bundle branch block) Tobacco abuse Psychogenic nonepileptic seizure Alcoholism DVT (deep venous thrombosis) Narcotic habituation, continuous Pulmonary embolism Morbid obesity LYLA (obstructive sleep apnea) Acetaminophen overdose of undetermined intent (12/2015) Suicide attempt Intraoperative cardiac arrest during non-cardiac surgery (11/2013) Ovarian cyst Plantar fasciitis 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 Cubital tunnel syndrome Status post laminectomy (12/14/15) Gastroesophageal reflux disease without esophagitis (03/02/15) Fibromyalgia (03/02/15) Tylenol overdose Obstipation Surgical History S/P lumbar spinal fusion H/O: hysterectomy Hx of toe surgery (05/16/20) History of carpal tunnel repair (~10/30/14) History of laminectomy (~09/2016) History of laminectomy History of colonoscopy History of esophagogastroduodenoscopy (EGD) History of lumbar spinal fusion (12/22/18) S/P epidural steroid injection (11/2013) Status post dilation and curettage (2008) Family History Grandfather Diabetes mellitus Family/Other Pancreatic cancer Social History household members: spouse alcohol intake: current eating out: 1-3 times/week Type(s) of exercise: normal ROM and activity and sedentary lifestyle tobacco type: cigars alcohol intake frequency: other Alcohol type: hard liquor Exam <Blair Draper PA-C - Last Filed: 03/22/25 17:32> Narrative Exam Narrative: Const General:?cooperative, healthy appearing and comfortable [facility] Head:?normal to inspection Ears:?hearing grossly normal bilaterally Nose:?external nose normal Face and sinus:?normal facial exam and sinuses nontender Mouth:?oral mucosae normal Throat:?posterior oropharynx normal Eyes General:?appearance normal, both eyes and all related structures Neck Neck:?normal visual inspection and no lymphadenopathy noted Resp Effort & Inspection:?normal respiratory effort Auscultation:?clear to auscultation bilaterally Cardio Rate:?regular rate Rhythm:?regular rhythm Musculoskeletal No midline tenderness to palpation. No paraspinal tenderness to palpation. Gait is normal. Strength and sensation is intact. Neurovascularly intact. Neuro General:?patient alert, patient awake and patient oriented x3 Initial Vital Signs Initial Vital Signs: Vital Signs Temperature 98.7 F 03/22/25 13:31 Pulse Rate 115 H 03/22/25 13:31 Respiratory Rate 18 03/22/25 13:31 Blood Pressure 125/79 03/22/25 13:31 Pulse Oximetry 99 03/22/25 13:31 Oxygen Delivery Method Room Air 03/22/25 13:31 <Livan Valverde MD - Last Filed: 03/23/25 09:50> Initial Vital Signs Initial Vital Signs: Vital Signs Temperature 98.7 F 03/22/25 13:31 Pulse Rate 115 H 03/22/25 13:31 Respiratory Rate 18 03/22/25 13:31 Blood Pressure 125/79 03/22/25 13:31 Pulse Oximetry 99 03/22/25 13:31 Oxygen Delivery Method Room Air 03/22/25 13:31 Course <Blair Draper PA-C - Last Filed: 03/22/25 17:32> Vital Signs Vital signs: Vital Signs - 8 hr 03/22/25 13:31 03/22/25 15:33 Temperature 98.7 F Pulse Rate 115 H 99 H Respiratory Rate 18 18 Blood Pressure 125/79 124/75 Pulse Oximetry 99 97 Oxygen Delivery Method Room Air Room Air <Livan Valverde MD - Last Filed: 03/23/25 09:50> Vital Signs Vital signs: Vital Signs - 8 hr 03/22/25 13:31 03/22/25 15:33 Temperature 98.7 F Pulse Rate 115 H 99 H Respiratory Rate 18 18 Blood Pressure 125/79 124/75 Pulse Oximetry 99 97 Oxygen Delivery Method Room Air Room Air MDM - Back Pain/Injury <Blair Draper PA-C - Last Filed: 03/22/25 17:32> MDM Narrative Medical decision making narrative: 44-year-old female with past medical history depression, anxiety, alcohol abuse, opiate use, fibromyalgia, asthma, diabetes, PE, psychogenic nonepileptic seizures, chronic low back pain presents to the ED for an acute on chronic exacerbation of the lower back pain. The physical exam and history is reassuring with no emergent symptoms or findings. Patient's presentation is consistent with the acute on chronic exacerbation of the lower back pain. Will prescribe pain medication for the next 2-3 days. Recommend follow-up with PCP. ED return precautions discussed with patient. Medical records reviewed: Yes Discharge Plan Departure Patient Disposition: Home Clinical Impression: Back pain Qualifiers: Back pain location: low back pain Chronicity: chronic Back pain laterality: right Sciatica presence: without sciatica Qualified Code(s): M54.50 - Low back pain, unspecified Instructions: DI for Low Back Pain Activity Restrictions/Additional Instructions: You were evaluated in the ED today for an exacerbation of your lower back pain. You are being prescribed some pain medication. Please follow-up with your primary care doctor as soon as possible. Return to the ED if you have worsening symptoms, numbness, tingling, weakness, urinary difficulties. Prescriptions: New tramadol 50 mg tablet 50 mg PO TID PRN (Reason: pain) 3 Days Qty: 10 0RF No Action albuterol sulfate 90 mcg/actuation HFA aerosol inhaler 2 puff inhalation Q6H PRN (Reason: shortness of breath or wheezing) Qty: 8.5 2RF nortriptyline 10 mg capsule 10 mg PO DAILY ketoconazole 2 % cream 1 applic topical DAILY spironolactone 25 mg tablet 25 mg PO DAILY Qty: 90 3RF esomeprazole magnesium 40 mg capsule,delayed release(DR/EC) 40 mg PO DAILY Qty: 30 3RF ferrous sulfate 325 mg (65 mg iron) tablet 325 mg PO DAILY vitamin B complex Tablet 1 tab PO DAILY metoprolol succinate 25 mg tablet extended release 24 hr 25 mg PO DAILY polyethylene glycol 3350 17 gram/dose powder 17 g PO DAILY PRN (Reason: constipation) Patient Comments: DOSE ONE MIX WITH 64 OZ OF GATORADE. FOLLOW WITH DOSE TWO. desvenlafaxine succinate 50 mg tablet extended release 24 hr 50 mg PO DAILY Qty: 30 2RF lithium carbonate 300 mg capsule 300 mg PO BEDTIME Qty: 90 3RF desvenlafaxine succinate 100 mg tablet extended release 24 hr 100 mg PO DAILY Qty: 30 3RF aripiprazole 30 mg tablet 30 mg PO BEDTIME Qty: 90 3RF Rx Instructions: Take one 30mg tablet by mouth daily magnesium oxide 400 mg (241.3 mg magnesium) tablet 400 mg PO DAILY Qty: 30 0RF (DME) lancets See Rx Instructions .Route .MEDSUPPLY Qty: 100 3RF Rx Instructions: to test blood glucose daily terazosin 2 mg capsule 2 mg PO QPM Qty: 90 0RF (DME) glucose monitor See Rx Instructions .Route .MEDSUPPLY Qty: 1 0RF Rx Instructions: To test blood glucose daily (DME) glucose test strips See Rx Instructions .Route .MEDSUPPLY Qty: 100 3RF Rx Instructions: To test blood glucose daily (DME) pen needle, diabetic [Sure Comfort Pen Needle] 32 gauge x 5/32 needle See Rx Instructions .ROUTE .COMPLEX Qty: 100 0RF Dose Instruction: USE WITH LEVEMIR DAILY DIRECTED Rx Instructions: USE WITH LEVEMIR DAILY DIRECTED Atrovent HFA 17 mcg/actuation HFA aerosol inhaler 1 puff PO Q8H Qty: 12.9 0RF atorvastatin 10 mg tablet 10 mg PO DAILY Qty: 90 3RF Jardiance 10 mg tablet 10 mg PO DAILY Qty: 30 2RF Xarelto 20 mg tablet 20 mg PO DAILY Qty: 90 3RF tirzepatide 7.5 mg/0.5 mL pen injector 7.5 mg SUBCUT QWEEK Qty: 2 3RF levothyroxine 25 mcg tablet 25 mcg PO DAILY Qty: 90 3RF fluticasone propion-salmeterol 115-21 mcg/actuation HFA aerosol inhaler 2 puff PO BID Qty: 36 0RF cyclobenzaprine 10 mg tablet 10 mg PO 3XD PRN (Reason: for muscle spasm) Qty: 90 0RF pregabalin 300 mg capsule 300 mg PO BID Qty: 180 3RF Rx Instructions: take 1 capsule by mouth twice a day ascorbic acid (vitamin C) 500 mg tablet 500 mg PO DAILY potassium gluconate 595 mg (99 mg) tablet 595 mg PO DAILY (DME) True Metrix Glucose Test Strip Strip See Rx Instructions .ROUTE DAILY Qty: 10 Rx Instructions: As directed (DME) lancets [Micro Thin Lancets] 33 gauge misc See Rx Instructions .ROUTE DAILY Qty: 100 Rx Instructions: As directed ketoconazole 2 % shampoo 1 applic topical DAILY PRN (Reason: yeast) triamcinolone acetonide 0.1 % cream 1 applic topical DAILY PRN (Reason: skin condition) acetaminophen [Tylenol Extra Strength] 500 mg tablet 1,000 mg PO Q6H PRN (Reason: pain) (DME) blood-glucose meter [True Metrix Glucose Meter] Misc See Rx Instructions .ROUTE DAILY Qty: 1 Rx Instructions: As directed Referrals: Alejandra Lynch MD [Primary Care Provider, Family Practice] Stand Alone Forms: Patient Portal/API ED Sign-out <Livan Valverde MD - Last Filed: 03/23/25 09:50> Cosign ED Attending Cosignature Attestation: I was immediately available in the department for consultation. ?This documentation has been reviewed and I agree with assessment and plan. Supervised by Livan Valverde MD
== END 2025-03-22 15:37 | disposition home or self-care (01) ==
PROVIDERS: Emergency Provider Student in an Organized Health Care Education/Training Program; PCP Family Medicine
DX: M54.50 Low back pain, unspecified (principal); M25.559 Pain in unspecified hip; G89.29 Other chronic pain
CPT/HCPCS: 73502; 99281

== ENCOUNTER → 2025-03-22 15:48 | Outpatient (CLI) | payer OTHER, MEDICARE, SELFPAY ==
[2024-01-19 14:23] VITALS: BMI 50.6
--- NOTE | 2025-03-22 15:51 | DI.RAD.S_ITS ---
PROCEDURE: XR HIP W PEL IF DONE RT 2V INDICATIONS: hip pain TECHNIQUE: AP pelvis with lateral view(s) of the right hip(s). COMPARISON: None. FINDINGS: Bones: No fractures or dislocations. Pelvic ring appears intact. No suspicious bony lesions. Lower lumbar spine hardware. Soft tissues: The visualized bowel gas pattern is normal. No suspicious soft tissue calcifications. IMPRESSION: No acute bony abnormality. No significant degenerative changes. Dictated by: Justin Hernandez M.D. on 03/23/2025 at 19:56 Approved by: Justin Hernandez M.D. on 03/23/2025 at 19:56
== END ==
PROVIDERS: PCP Family Medicine; Referring Provider Family Medicine; Visit Provider Family Medicine
DX: M25.559 Pain in unspecified hip (principal)
CPT/HCPCS: 73502

== ENCOUNTER → 2025-03-23 12:40 | Outpatient (CLI) | payer OTHER, MEDICARE, SELFPAY ==
[2024-01-19 14:23] VITALS: BMI 50.6
[2025-03-23 13:59] LABS: Hemoglobin A1C% w Est Avg Glu 5.5 % (4.0-6.0)
[2025-03-23 14:21] LABS: Cholesterol 97 mg/dL (140-199); HDL Cholesterol 46 mg/dL (40-60); Triglycerides 120 mg/dL (35-150)
== END ==
PROVIDERS: PCP Family Medicine; Referring Provider Family Medicine; Visit Provider Family Medicine
DX: E78.5 Hyperlipidemia, unspecified (principal); E11.65 Type 2 diabetes mellitus with hyperglycemia; Z79.4 Long term (current) use of insulin
CPT/HCPCS: 36415; 80061; 83036

== ENCOUNTER → 2025-03-24 12:02 | Outpatient (CLI) | payer OTHER, MEDICARE, SELFPAY ==
[2024-01-19 14:23] VITALS: BMI 50.6
--- NOTE | 2025-03-24 12:26 | DI.RAD.S_ITS ---
PROCEDURE: XR LUMBAR SPINE 2-3V INDICATIONS: lower back pain TECHNIQUE: 3 views of the lumbar spine were acquired. COMPARISON: [facility], CR, XR LUMBAR SPINE 2-3V, 08/25/2024, 13:53. [facility], CR, XR LUMBAR SPINE 2-3V, 10/14/2023, 15:28. FINDINGS: Bones: 5 [id number] vertebrae are present. L4-5 posterior spinal fixation discectomy without evidence of hardware complication. There is normal bony alignment. No vertebral body compression fractures. No suspicious bony lesions. Mild degenerative changes are redemonstrated. Soft tissues: Overlying bowel gas pattern is normal. No suspicious soft tissue calcifications. IMPRESSION: Stable L4-5 hardware without evidence of complication. No acute osseous abnormalities. Dictated by: Justin Hernandez M.D. on 03/25/2025 at 14:32 Approved by: Justin Hernandez M.D. on 03/25/2025 at 14:32
== END ==
LOC: RAD 12:26
PROVIDERS: PCP Family Medicine; Referring Provider Family Medicine; Visit Provider Family Medicine
DX: M54.50 Low back pain, unspecified (principal); Z98.1 Arthrodesis status
CPT/HCPCS: 72100

== ENCOUNTER 2025-03-25 11:53 | Emergency (ER) | payer OTHER, MEDICARE, SELFPAY ==
[2024-01-19 14:23] VITALS: BMI 50.6
[2025-03-25] VITALS (12 sets, daily range): BP systolic 103–137; BP diastolic 59–90; PULSE 96–118; RESP 18; TEMP 36.4; O2SAT 92–98; BMI 42.4
--- NOTE | 2025-03-25 12:14 | ED.BACK ---
HPI - Back Pain/Injury General Chief Complaint: Back Pain/Injury Stated Complaint: low back pain, numbness in groin/leg last nigh Time Seen by Provider: 03/25/25 12:12 Source: patient History of Present Illness HPI Narrative: Patient is a 44-year-old female with history of chronic back pain, pulmonary embolisms on Xarelto diabetes nonepileptic seizures presenting today with worsening back pain and numbness in her groin. She reports increasing back pain. She was seen evaluated here on 03/22/2025 diagnosed with acute on chronic back pain treated with tramadol. She reports that now she is having numbness in her groin region which is new and increasing pain. She denies any fever or chills. She has not had any injections in over a year. She has had MRIs this year. MRI December 08 2024 shows L4-L5 fusion and laminectomy. Multilevel lumbar spondylosis redemonstrated with moderate spinal canal stenosis at L3-L4 mildly progressed Related Data Home Medications ?Medication ?Instructions ?Recorded ?Confirmed ascorbic acid (vitamin C) 500 mg 500 mg PO DAILY 07/28/22 03/24/25 tablet potassium gluconate 595 mg (99 mg) 595 mg PO DAILY 07/28/22 03/24/25 tablet ferrous sulfate 325 mg (65 mg 325 mg PO DAILY 12/03/22 03/24/25 iron) tablet vitamin B complex 1 tab PO DAILY 12/03/22 03/24/25 acetaminophen 500 mg tablet 1,000 mg PO Q6H PRN pain 08/05/23 03/24/25 (Tylenol Extra Strength) blood sugar diagnostic (True #10 ea 08/05/23 03/24/25 Metrix Glucose Test Strip) ketoconazole 2 % shampoo 1 applic topical DAILY PRN yeast 08/05/23 03/24/25 lancets 33 gauge (Micro Thin #100 ea 08/05/23 03/24/25 Lancets) triamcinolone acetonide 0.1 % 1 applic topical DAILY PRN skin 08/05/23 03/24/25 topical cream condition blood-glucose meter (True Metrix #1 ea 02/03/24 03/24/25 Glucose Meter) metoprolol succinate 25 mg 25 mg PO DAILY 06/29/24 03/24/25 tablet,extended release 24 hr polyethylene glycol 3350 17 17 g PO DAILY PRN constipation 06/29/24 03/24/25 gram/dose oral powder ketoconazole 2 % topical cream 1 applic topical DAILY 09/07/24 03/24/25 nortriptyline 10 mg capsule 10 mg PO DAILY 09/07/24 03/24/25 Previous Rx's ?Medication ?Instructions ?Recorded magnesium oxide 400 mg (241.3 mg 400 mg PO DAILY #30 tabs 07/18/22 magnesium) tablet lancets #100 ea 12/01/22 terazosin 2 mg capsule 2 mg PO QPM #90 caps 10/23/23 glucose monitor #1 ea 12/28/23 glucose test strips #100 ea 12/28/23 albuterol sulfate 90 mcg/actuation 2 puff inhalation Q6H PRN 07/12/24 aerosol inhaler shortness of breath or wheezing #8.5 grams pen needle, diabetic 32 gauge x #100 ea 07/15/24 (Sure Comfort Pen Needle) spironolactone 25 mg tablet 25 mg PO DAILY #90 tabs 09/13/24 lithium carbonate 300 mg capsule 300 mg PO BEDTIME #90 caps 12/01/24 atorvastatin 10 mg tablet 10 mg PO DAILY #90 tabs 12/02/24 ipratropium bromide 17 1 puff PO Q8H #12.9 grams 12/02/24 mcg/actuation HFA aerosol inhaler (Atrovent HFA) desvenlafaxine succinate 50 mg 50 mg PO DAILY #30 tabs 01/02/25 tablet,extended release 24 hr empagliflozin 10 mg tablet 10 mg PO DAILY #30 tabs 01/02/25 (Jardiance) rivaroxaban 20 mg tablet (Xarelto) 20 mg PO DAILY #90 tabs 01/19/25 tirzepatide 7.5 mg/0.5 mL 7.5 mg (0.5 mL) SUBCUT QWEEK #2 mL 02/10/25 subcutaneous pen injector levothyroxine 25 mcg tablet 25 mcg PO DAILY #90 tabs 02/15/25 fluticasone propionate 115 2 puff PO BID #36 grams 02/20/25 mcg-salmeterol 21 mcg/actuation HFA inhaler aripiprazole 30 mg tablet 30 mg PO BEDTIME #90 tabs 02/23/25 desvenlafaxine succinate 100 mg 100 mg PO DAILY #30 tabs 02/23/25 tablet,extended release 24 hr cyclobenzaprine 10 mg tablet 10 mg PO 3XD PRN for muscle spasm 02/27/25 #90 tabs esomeprazole magnesium 40 mg 40 mg PO DAILY #30 caps 03/01/25 capsule,delayed release pregabalin 300 mg capsule 300 mg PO BID #180 caps 03/10/25 hydrocodone 5 mg-acetaminophen 325 1 tab PO Q6H PRN pain #20 tabs 03/24/25 mg tablet hydrocodone 5 mg-acetaminophen 325 1 tab PO Q6H PRN pain #10 tabs 03/25/25 mg tablet methylprednisolone 4 mg tablets in See Rx Instructions PO .COMPLEX 03/25/25 a dose pack (Medrol (Tomas)) #21 ea Allergies Allergy/AdvReac Type Severity Reaction Status Date / Time carisoprodol (CARISOPRODOL) AdvReac Severe urinary Verified 03/25/25 11:57 retention fosphenytoin AdvReac Severe Seizures Verified 03/25/25 11:57 Latex, Natural Rubber AdvReac Mild Rash Verified 03/25/25 11:57 risperidone (From Risperdal) AdvReac urinary Verified 03/25/25 11:57 retention Patient History Medical History Facet arthropathy, lumbar Cervical radiculopathy Nocturnal hypoxemia ultrasound spec associated with adverse incidents (~2011) 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 Hypoxia Sinus tachycardia RBBB (right bundle branch block) Tobacco abuse Psychogenic nonepileptic seizure Alcoholism DVT (deep venous thrombosis) Narcotic habituation, continuous Pulmonary embolism Morbid obesity LYLA (obstructive sleep apnea) Acetaminophen overdose of undetermined intent (12/2015) Suicide attempt Intraoperative cardiac arrest during non-cardiac surgery (11/2013) Ovarian cyst Plantar fasciitis 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 Cubital tunnel syndrome Status post laminectomy (12/14/15) Gastroesophageal reflux disease without esophagitis (03/02/15) Fibromyalgia (03/02/15) Tylenol overdose Obstipation Surgical History S/P lumbar spinal fusion H/O: hysterectomy Hx of toe surgery (05/16/20) History of carpal tunnel repair (~10/30/14) History of laminectomy (~09/2016) History of laminectomy History of colonoscopy History of esophagogastroduodenoscopy (EGD) History of lumbar spinal fusion (12/22/18) S/P epidural steroid injection (11/2013) Status post dilation and curettage (2008) Family History Grandfather Diabetes mellitus Family/Other Pancreatic cancer Social History household members: spouse alcohol intake: current eating out: 1-3 times/week Type(s) of exercise: normal ROM and activity and sedentary lifestyle tobacco type: cigars alcohol intake frequency: other Alcohol type: hard liquor Exam Initial Vital Signs Initial Vital Signs: Vital Signs Temperature 97.6 F 03/25/25 11:56 Pulse Rate 109 H 03/25/25 11:56 Respiratory Rate 18 03/25/25 11:56 Blood Pressure 133/78 03/25/25 11:56 Pulse Oximetry 98 03/25/25 11:56 Oxygen Delivery Method Room Air 03/25/25 11:56 GENERAL: Alert suddenly anxious 44-year-old female and in no acute distress. HEENT: Head atraumatic,EOMI, pupils reactive, face symmetric, moist mucous membranes CARDIOVASCULAR: Regular rate and rhythm without murmurs, rubs or gallops. RESPIRATORY: Breath sounds equal bilaterally, no wheezes rales or rhonchi. ABDOMEN: Soft, nontender. Normoactive bowel sounds all 4 quadrants. No guarding or rebound. RECTAL: Good rectal tone EXTREMITIES: Normal range of motion, no clubbing or edema. Neurovascularly intact NEUROLOGICAL: Alert and oriented x4.Normal gait and speech. Cranial nerves II through XII grossly intact. Able to lift both legs off gurney slight numbness in both in her thought SKIN: Warm, dry, no laceration, no petechiae, no rashes or lesions. Course Orders Ordered: Discontinued Medications Hydromorphone HCl (Hydromorphone Hcl 0.5 Mg/0.5 Ml Syringe) 0.5 mg IV NOW ONE Stop: 03/25/25 12:22 Last Admin: 03/25/25 12:38 Dose: 0.5 mg Documented By: [facility] Hydromorphone HCl (Hydromorphone Hcl 0.5 Mg/0.5 Ml Syringe) 0.5 mg IV NOW ONE Stop: 03/25/25 14:40 Last Admin: 03/25/25 14:52 Dose: 0.5 mg Documented By: SGF Lorazepam (Lorazepam 2 Mg/Ml Inj) 1 mg IV NOW ONE Stop: 03/25/25 12:22 Last Admin: 03/25/25 12:38 Dose: 1 mg Documented By: SGF Vital Signs Vital signs: Vital Signs - 8 hr 03/25/25 11:56 03/25/25 12:07 03/25/25 12:27 Temperature 97.6 F Pulse Rate 109 H 110 H 111 H Respiratory Rate 18 Blood Pressure 133/78 Pulse Oximetry 98 98 95 Oxygen Delivery Method Room Air 03/25/25 12:27 03/25/25 12:30 03/25/25 12:30 Temperature Pulse Rate 106 H Respiratory Rate Blood Pressure 132/90 137/89 Pulse Oximetry 97 Oxygen Delivery Method 03/25/25 13:28 03/25/25 13:29 03/25/25 13:29 Temperature Pulse Rate 118 H 113 H Respiratory Rate Blood Pressure 122/77 Pulse Oximetry 94 93 Oxygen Delivery Method 03/25/25 13:30 03/25/25 13:30 03/25/25 14:00 Temperature Pulse Rate 113 H Respiratory Rate Blood Pressure 114/75 115/85 Pulse Oximetry 94 Oxygen Delivery Method 03/25/25 14:00 Temperature Pulse Rate 107 H Respiratory Rate Blood Pressure Pulse Oximetry 95 Oxygen Delivery Method MDM - Back Pain/Injury Lab Data 03/25/25 12:30 03/25/25 12:30 Labs: Lab Results 03/25/25 03/25/25 Range/Units 12:30 13:50 WBC 6.7 (4.5-11.0) X10^3/uL RBC 4.89 (4.0-5.2) X10^6/uL Hgb 14.7 (12.0-16.0) g/dL Hct 43.5 (36-46) % MCV 89.0 (80-100) fL MCH 30.1 (26-34) PG MCHC 33.8 (30-36) % RDW 13.3 (11.6-14.8) % Plt Count 192 (150-400) X10^3/uL Neut % (Auto) 63.9 (50-75) % Lymph % (Auto) 26.3 (25-40) % [place] % (Auto) 7.0 (3-14) % Eos % (Auto) 2.3 (2-4) % Baso % (Auto) 0.5 (0-2) % Neut # (Auto) 4300 (1378-2913) /uL Lymph # (Auto) 1800 (7378-2791) /uL [place] # (Auto) 500 (0-900) /uL Eos # (Auto) 200 (0-450) /uL Baso # (Auto) 0 (0-100) /uL Sodium 137 (137-145) mmol/L Potassium 4.0 (3.4-5.1) mmol/L Chloride 101 (98-107) mmol/L Carbon Dioxide 28 (22-32) mmol/L BUN 12 (7-17) mg/dL Creatinine 0.62 (0.52-1.04) mg/dL Estimated GFR > 60 (>60) mL/min BUN/Creatinine Ratio 19.4 (6-22) Glucose 124 H (70-99) mg/dL Calcium 9.4 (8.4-10.2) mg/dL Total Bilirubin 0.3 (0.2-1.3) mg/dL AST 22 (14-36) IU/L ALT 16 (<35) IU/L Alkaline Phosphatase 59 (38-126) U/L Total Protein 8.0 (6.3-8.2) g/dL Albumin 4.7 (3.5-5.0) g/dL Globulin 3.3 (1.7-4.1) g/dL Albumin/Globulin Ratio 1.4 (1.0-2.8) Urine Color Yellow Urine Appearance Clear Urine pH 6.0 (4.5-8.0) Ur Specific [place] <=1.005 (1.000-1.035) Urine Protein Negative (Negative) Urine Glucose (UA) 3+ H (Negative) g/dL Urine Ketones Negative (NEGATIVE) Urine Occult Blood Negative (Negative) Urine Nitrate Negative (Negative) Urine Bilirubin Negative (NEGATIVE) Urine Urobilinogen 0.2 (0.2) E.U./dL Ur Leukocyte Esterase Negative (NEGATIVE) Urine RBC 0-1/hpf (0-5/HPF) Urine WBC None seen (0-5/HPF) Ur Squamous Epith Cells 5-10 /hpf H (0-5/HPF) Urine Bacteria None seen (None) Ur Culture Indicated? Cult not indicated Vol Urine Centrifuged 10ml (spun) Imaging Data MR lumbar: Radiologist's Impression: PROCEDURE: MR LUMBAR SPINE WO/W CON INDICATIONS: Saddle anesthesia multiple prior back surgeries TECHNIQUE: Noncontrast sagittal T1 spin echo and T2 fast spin echo, sagittal STIR, axial T1 and T2 fast spin echo through the lumbar spine. In cases with scoliosis, additional coronal T2 fast spin echo may be performed. After the administration of contrast, sagittal and axial T1 spin echo with fat saturation through the lumbar spine. COMPARISON: [facility], , L-SPINE W&WO CONTRAST, 05/07/2016, 18:48. FINDINGS: Alignment and curvature: There is normal bony alignment. Marrow: L4-5 discectomy and fusion with posterior jason and screw instrumentation in left hemilaminotomy Spinal cord: Conus medullaris terminates at the L1 level. Visualized spinal cord demonstrates normal signal, without suspicious enhancement. Paraspinous soft tissues: No paravertebral masses or abnormal enhancement. T12-L1: Normal appearance. L1-L2: Normal appearance. L2-L3: Normal appearance. L3-L4: Disc height is maintained. Right subarticular disc protrusion/extrusion with inferior migration fills the right lateral recess extends inferiorly to the mid L4 vertebral level. Hypertrophic arthropathy and ligamentum flavum laxity combined result in moderate central stenosis. No foraminal stenosis. L4-L5: Discectomy and fusion. No central stenosis. No foraminal stenosis L5-S1: No central or foraminal stenosis IMPRESSION: Right subarticular disc protrusion/extrusion with inferior migration at L3-4 fills the right lateral recess and displaces the descending nerve root MDM Narrative Medical decision making narrative: MDM CC: Back pain Complicating co-morbidities: Multiple back surgeries, diabetes Data collected from: Patient Medical records reviewed: 12/08/24 MRI L2-L3 shows mild disc bulge with mild bilateral facet arthropathy causing mild spinal canal stenosis. Bilateral foraminal disc bulging and facet arthropathy causing mild bilateral no rale foraminal narrowing L3-L4 diffuse disc bulge with mild bilateral facet arthropathy including prominent bilateral ligamentum flavum thickening causing moderate spinal canal stenosis mildly progressed. Bilateral foraminal disc bulging facet arthropathy causing [id number] bilateral foraminal narrowing not significantly changed Multiple level lumbar spondylolisthesis redemonstrated with moderate spinal canal stenosis at L3-L4 03/24 x-ray lumbar spine, without evidence of complications Differential considered: Cauda equina nerve impingements Exam documented above, pertinent findings include: Patient does have some numbness in her saddle region scars noted posteriorly on her smart Lab Test results independently reviewed as above. Pertinent findings: CBC no leukocytosis no anemia CMP no electrolyte abnormalities glucose 124 Independently reviewed EKG as above Imaging studies independently reviewed: MRI of lumbar spine right sober articular disc protrusion extrusion with inferior migration of L3-4 fills the right lateral recess it displaces the descending nerve root. Instrument stated L4-L5 diskectomy with fusion Consultations: 1609 Dr. Toro, neurosurgery at [facility] has reviewed imaging updated on patient's symptoms test results. At this time agrees with outpatient management. Was okay to try a Medrol Dosepak. Treatments: Dilaudid and Ativan Re-evaluations: Patient does ambulate with a walker in the ED Discussion: Patient 44-year-old female history of multiple back surgeries worsening back pain over last 3-4 months. Had an MRI 12/08/2024 which was moderate spinal canal stenosis at L3-L4 mildly progressed. Today having some saddle paresthesias, MR of lumbar spine today shows right subarticular disc protrusion with inferior migration of L3-L4 fills right lateral recess and displaces the descending nerve root. She is able to ambulate in the ED with her walker. Pain is better after Dilaudid and Ativan. Discussion with her about outpatient follow up with Neurosurgery. He will need an official referral from her primary care provider. She understands this. Discharge Plan Departure Patient Disposition: Home Clinical Impression: Acute on chronic back pain Instructions: DI for Low Back Pain Activity Restrictions/Additional Instructions: *You have been diagnosed with acute on chronic back pain with paresthesias *What to do: At this time you will need follow-up with spine surgery. I spoke with Dr. Toro, out of [place] *Continue to take medications as directed [place] 1 tablet every 4-6 hours if needed for severe pain--do not combine with tramadol! Medrol Dosepak take as directed *Follow up with your primary care provider in 2-3 days or call [phone] Dr. Sheri Toro [address] [place] [address], [address] [place] [address] 40.0 miles away ? tel: *Return to ER if you should have increasing weakness in legs loss of urine or stool or any new, worsening or concerning symptoms CONTROLLED SUBSTANCE DISCHARGE (Narcotoic/benzodiazepine/Flexeril/Phenergan) 1. You have been prescribed narcotic medications, it does have acetaminophen/Tylenol/paracetamol in it, DO NOT TAKE MORE THAN 4,00mg in 24 hours of Tylenol. TRAMADOL DOES NOT CONTAIN TYLENOL 2. Please understand that we cannot provide further refills of narcotics, benzodiazepines or controlled substances through the ED and her pain management will need to be through your provider. 3. While on these medications you cannot drive or operate heavy machinery. 4. You cannot sign legal documents or perform any duties such as this. 5. As long as you're taking opiate pain medications he should also be taking a stool softener such as Colace, Dulcolax, MiraLAX or prune juice, to help avoid constipation. Prescriptions: New hydrocodone-acetaminophen 5-325 mg tablet 1 tab PO Q6H PRN (Reason: pain) Qty: 10 0RF methylprednisolone [Medrol (Tomas)] 4 mg tablets,dose pack See Rx Instructions .ROUTE .COMPLEX Qty: 21 0RF Rx Instructions: for 6 days No Action albuterol sulfate 90 mcg/actuation HFA aerosol inhaler 2 puff inhalation Q6H PRN (Reason: shortness of breath or wheezing) Qty: 8.5 2RF nortriptyline 10 mg capsule 10 mg PO DAILY ketoconazole 2 % cream 1 applic topical DAILY spironolactone 25 mg tablet 25 mg PO DAILY Qty: 90 3RF esomeprazole magnesium 40 mg capsule,delayed release(DR/EC) 40 mg PO DAILY Qty: 30 3RF ferrous sulfate 325 mg (65 mg iron) tablet 325 mg PO DAILY vitamin B complex Tablet 1 tab PO DAILY metoprolol succinate 25 mg tablet extended release 24 hr 25 mg PO DAILY polyethylene glycol 3350 17 gram/dose powder 17 g PO DAILY PRN (Reason: constipation) Patient Comments: DOSE ONE MIX WITH 64 OZ OF GATORADE. FOLLOW WITH DOSE TWO. hydrocodone-acetaminophen 5-325 mg tablet 1 tab PO Q6H PRN (Reason: pain) Qty: 20 0RF desvenlafaxine succinate 50 mg tablet extended release 24 hr 50 mg PO DAILY Qty: 30 2RF lithium carbonate 300 mg capsule 300 mg PO BEDTIME Qty: 90 3RF desvenlafaxine succinate 100 mg tablet extended release 24 hr 100 mg PO DAILY Qty: 30 3RF aripiprazole 30 mg tablet 30 mg PO BEDTIME Qty: 90 3RF Rx Instructions: Take one 30mg tablet by mouth daily magnesium oxide 400 mg (241.3 mg magnesium) tablet 400 mg PO DAILY Qty: 30 0RF (DME) lancets See Rx Instructions .Route .MEDSUPPLY Qty: 100 3RF Rx Instructions: to test blood glucose daily terazosin 2 mg capsule 2 mg PO QPM Qty: 90 0RF (DME) glucose monitor See Rx Instructions .Route .MEDSUPPLY Qty: 1 0RF Rx Instructions: To test blood glucose daily (DME) glucose test strips See Rx Instructions .Route .MEDSUPPLY Qty: 100 3RF Rx Instructions: To test blood glucose daily (DME) pen needle, diabetic [Sure Comfort Pen Needle] 32 gauge x 5/32 needle See Rx Instructions .ROUTE .COMPLEX Qty: 100 0RF Dose Instruction: USE WITH LEVEMIR DAILY DIRECTED Rx Instructions: USE WITH LEVEMIR DAILY DIRECTED Atrovent HFA 17 mcg/actuation HFA aerosol inhaler 1 puff PO Q8H Qty: 12.9 0RF atorvastatin 10 mg tablet 10 mg PO DAILY Qty: 90 3RF Jardiance 10 mg tablet 10 mg PO DAILY Qty: 30 2RF Xarelto 20 mg tablet 20 mg PO DAILY Qty: 90 3RF tirzepatide 7.5 mg/0.5 mL pen injector 7.5 mg SUBCUT QWEEK Qty: 2 3RF levothyroxine 25 mcg tablet 25 mcg PO DAILY Qty: 90 3RF fluticasone propion-salmeterol 115-21 mcg/actuation HFA aerosol inhaler 2 puff PO BID Qty: 36 0RF cyclobenzaprine 10 mg tablet 10 mg PO 3XD PRN (Reason: for muscle spasm) Qty: 90 0RF pregabalin 300 mg capsule 300 mg PO BID Qty: 180 3RF Rx Instructions: take 1 capsule by mouth twice a day ascorbic acid (vitamin C) 500 mg tablet 500 mg PO DAILY potassium gluconate 595 mg (99 mg) tablet 595 mg PO DAILY (DME) True Metrix Glucose Test Strip Strip See Rx Instructions .ROUTE DAILY Qty: 10 Rx Instructions: As directed (DME) lancets [Micro Thin Lancets] 33 gauge misc See Rx Instructions .ROUTE DAILY Qty: 100 Rx Instructions: As directed ketoconazole 2 % shampoo 1 applic topical DAILY PRN (Reason: yeast) triamcinolone acetonide 0.1 % cream 1 applic topical DAILY PRN (Reason: skin condition) acetaminophen [Tylenol Extra Strength] 500 mg tablet 1,000 mg PO Q6H PRN (Reason: pain) (DME) blood-glucose meter [True Metrix Glucose Meter] Misc See Rx Instructions .ROUTE DAILY Qty: 1 Rx Instructions: As directed Referrals: Alejandra Lynch MD [Primary Care Provider, Family Practice] Stand Alone Forms: Patient Portal/API
--- NOTE | 2025-03-25 12:21 | DI.MRI.S_ITS ---
PROCEDURE: MR LUMBAR SPINE WO/W CON INDICATIONS: Saddle anesthesia multiple prior back surgeries TECHNIQUE: Noncontrast sagittal T1 spin echo and T2 fast spin echo, sagittal STIR, axial T1 and T2 fast spin echo through the lumbar spine. In cases with scoliosis, additional coronal T2 fast spin echo may be performed. After the administration of contrast, sagittal and axial T1 spin echo with fat saturation through the lumbar spine. COMPARISON: [facility], , L-SPINE W&WO CONTRAST, 05/07/2016, 18:48. FINDINGS: Alignment and curvature: There is normal bony alignment. Marrow: L4-5 discectomy and fusion with posterior jason and screw instrumentation in left hemilaminotomy Spinal cord: Conus medullaris terminates at the L1 level. Visualized spinal cord demonstrates normal signal, without suspicious enhancement. Paraspinous soft tissues: No paravertebral masses or abnormal enhancement. T12-L1: Normal appearance. L1-L2: Normal appearance. L2-L3: Normal appearance. L3-L4: Disc height is maintained. Right subarticular disc protrusion/extrusion with inferior migration fills the right lateral recess extends inferiorly to the mid L4 vertebral level. Hypertrophic arthropathy and ligamentum flavum laxity combined result in moderate central stenosis. No foraminal stenosis. L4-L5: Discectomy and fusion. No central stenosis. No foraminal stenosis L5-S1: No central or foraminal stenosis IMPRESSION: Right subarticular disc protrusion/extrusion with inferior migration at L3-4 fills the right lateral recess and displaces the descending nerve root Instrumented L4-5 discectomy and fusion Approved by: Yuri Mccoy M.D. on 03/25/2025 at 13:27
[2025-03-25 12:41] LABS: Add Manual Diff / Slide Review NO; Hematocrit 43.5 % (36-46); Hemoglobin 14.7 g/dL (12.0-16.0); Lymphocytes Absolute Auto 1800 /uL (1100-4500); Mean Corpuscular HGB Conc 33.8 % (30-36); Mean Corpuscular Hemoglobin 30.1 PG (26-34); Mean Corpuscular Volume 89.0 fL (80-100); Platelet Count 192 X10^3/uL (150-400)
[2025-03-25 12:53] LABS: Alanine Aminotransferase 16 IU/L (<35); Albumin 4.7 g/dL (3.5-5.0); Albumin Globulin Ratio 1.4 (1.0-2.8); Alkaline Phosphatase 59 U/L (38-126); Blood Urea Nitrogen 12 mg/dL (7-17); Calcium 9.4 mg/dL (8.4-10.2); Carbon Dioxide 28 mmol/L (22-32); Chloride 101 mmol/L (98-107); Estimated Glomerular Filt Rate > 60 mL/min (>60); Globulin 3.3 g/dL (1.7-4.1); Glucose 124 mg/dL (70-99); HEMOLYSIS < 15 (0-50); Potassium 4.0 mmol/L (3.4-5.1); Sodium 137 mmol/L (137-145); Total Protein 8.0 g/dL (6.3-8.2)
--- NOTE | 2025-03-25 12:53 | PC.NURSE ---
pt to MRI
[2025-03-25 14:00] LABS: Appearance Urine UA CLEAR; Bilirubin Urine UA NEGATIVE (NEGATIVE); Color Urine UA YELLOW; Glucose Urine UA 3+ g/dL (Negative); Ketones Urine UA NEGATIVE (NEGATIVE); Leukocyte Esterase Urine UA NEGATIVE (NEGATIVE); Nitrite Urine UA NEGATIVE (Negative); Occult Blood Urine UA NEGATIVE (Negative); Protein Urine UA NEGATIVE (Negative); Specific Gravity Urine UA <=1.005 (1.000-1.035); Urobilinogen Urine UA 0.2 E.U./dL (0.2); pH Urine UA 6.0 (4.5-8.0)
[2025-03-25 14:14] LABS: Culture Indicated Urine Cult Not Indicated
--- NOTE | 2025-03-25 15:28 | PC.NURSE ---
pt given food per request. Provider aware
== END 2025-03-25 16:33 | disposition home or self-care (01) ==
PROVIDERS: Emergency Provider Emergency Medicine; PCP Family Medicine
DX: M54.50 Low back pain, unspecified (principal); R20.0 Anesthesia of skin; Z86.711 Personal history of pulmonary embolism; Z79.01 Long term (current) use of anticoagulants
CPT/HCPCS: 36415; 72158; 80053; 81001; 85025; 96374; 96375; 96376; 99284; A9579; J1171; J2060

== ENCOUNTER 2025-04-02 12:42 | Emergency (ER) | payer OTHER, MEDICARE, SELFPAY ==
[2024-01-19 14:23] VITALS: BMI 50.6
[2025-04-02 13:02] VITALS: PULSE 122; RESP 22; TEMP 37.1; O2SAT 99; BMI 43.2
--- NOTE | 2025-04-02 13:24 | PC.NURSE ---
Discussed with Dr Romero, reviewed previous MRI and new symptoms. No orders at this time.
--- NOTE | 2025-04-02 15:41 | DI.MRI.S_ITS ---
PROCEDURE: MR LUMBAR SPINE WO CON
--- NOTE | 2025-04-02 15:50 | ED_ITS ---
HPI - Back Pain/Injury
--- NOTE | 2025-04-02 15:50 | ED.BACK ---
HPI - Back Pain/Injury <Ana Ramos MD - Last Filed: 04/02/25 18:20> General Chief Complaint: Back Pain/Injury Stated Complaint: back pain getting worse Time Seen by Provider: 04/02/25 13:09 History of Present Illness HPI Narrative: 44 years old female with history of chronic back pain, PE on Xarelto came today complaining of worsening low back pain and pain shooting down to her right lower leg. The patient was in our ED on 03/25/2025 for low back pain with numbness on the groin. Her MRI of lumbar spine on 03/25/2025 showed IMPRESSION: Right subarticular disc protrusion/extrusion with inferior migration at L3-4 fills the right lateral recess and displaces the descending nerve root. Hypertrophic arthropathy and ligamentum flavum laxity combined result in moderate central stenosis. She was sent home with oxycodone and steroid. He also reported woke up with urine incontinence on herself on 03/26/2025 and 03/28/2025 but no urine incontinence or retention in the daytime or any bowel or bladder retention, numbness weakness on her legs, abdominal pain, fever, nausea vomiting, chest pain, shortness of breath. Related Data Home Medications ?Medication ?Instructions ?Recorded ?Confirmed ascorbic acid (vitamin C) 500 mg 500 mg PO DAILY 07/28/22 03/24/25 tablet potassium gluconate 595 mg (99 mg) 595 mg PO DAILY 07/28/22 03/24/25 tablet ferrous sulfate 325 mg (65 mg 325 mg PO DAILY 12/03/22 03/24/25 iron) tablet vitamin B complex 1 tab PO DAILY 12/03/22 03/24/25 acetaminophen 500 mg tablet 1,000 mg PO Q6H PRN pain 08/05/23 03/24/25 (Tylenol Extra Strength) blood sugar diagnostic (True #10 ea 08/05/23 03/24/25 Metrix Glucose Test Strip) ketoconazole 2 % shampoo 1 applic topical DAILY PRN yeast 08/05/23 03/24/25 lancets 33 gauge (Micro Thin #100 ea 08/05/23 03/24/25 Lancets) triamcinolone acetonide 0.1 % 1 applic topical DAILY PRN skin 08/05/23 03/24/25 topical cream condition blood-glucose meter (True Metrix #1 ea 02/03/24 03/24/25 Glucose Meter) metoprolol succinate 25 mg 25 mg PO DAILY 06/29/24 03/24/25 tablet,extended release 24 hr polyethylene glycol 3350 17 17 g PO DAILY PRN constipation 06/29/24 03/24/25 gram/dose oral powder ketoconazole 2 % topical cream 1 applic topical DAILY 09/07/24 03/24/25 nortriptyline 10 mg capsule 10 mg PO DAILY 09/07/24 03/24/25 Previous Rx's ?Medication ?Instructions ?Recorded magnesium oxide 400 mg (241.3 mg 400 mg PO DAILY #30 tabs 07/18/22 magnesium) tablet lancets #100 ea 12/01/22 terazosin 2 mg capsule 2 mg PO QPM #90 caps 10/23/23 glucose monitor #1 ea 12/28/23 glucose test strips #100 ea 12/28/23 albuterol sulfate 90 mcg/actuation 2 puff inhalation Q6H PRN 07/12/24 aerosol inhaler shortness of breath or wheezing #8.5 grams pen needle, diabetic 32 gauge x #100 ea 07/15/2432 (Sure Comfort Pen Needle) spironolactone 25 mg tablet 25 mg PO DAILY #90 tabs 09/13/24 lithium carbonate 300 mg capsule 300 mg PO BEDTIME #90 caps 12/01/24 atorvastatin 10 mg tablet 10 mg PO DAILY #90 tabs 12/02/24 ipratropium bromide 17 1 puff PO Q8H #12.9 grams 12/02/24 mcg/actuation HFA aerosol inhaler (Atrovent HFA) desvenlafaxine succinate 50 mg 50 mg PO DAILY #30 tabs 01/02/25 tablet,extended release 24 hr empagliflozin 10 mg tablet 10 mg PO DAILY #30 tabs 01/02/25 (Jardiance) rivaroxaban 20 mg tablet (Xarelto) 20 mg PO DAILY #90 tabs 01/19/25 tirzepatide 7.5 mg/0.5 mL 7.5 mg (0.5 mL) SUBCUT QWEEK #2 mL 02/10/25 subcutaneous pen injector levothyroxine 25 mcg tablet 25 mcg PO DAILY #90 tabs 02/15/25 fluticasone propionate 115 2 puff PO BID #36 grams 02/20/25 mcg-salmeterol 21 mcg/actuation HFA inhaler aripiprazole 30 mg tablet 30 mg PO BEDTIME #90 tabs 02/23/25 desvenlafaxine succinate 100 mg 100 mg PO DAILY #30 tabs 02/23/25 tablet,extended release 24 hr cyclobenzaprine 10 mg tablet 10 mg PO 3XD PRN for muscle spasm 02/27/25 #90 tabs pregabalin 300 mg capsule 300 mg PO BID #180 caps 03/10/25 hydrocodone 5 mg-acetaminophen 325 1 tab PO Q6H PRN pain #20 tabs 03/24/25 mg tablet hydrocodone 5 mg-acetaminophen 325 1 tab PO Q6H PRN pain #10 tabs 03/25/25 mg tablet methylprednisolone 4 mg tablets in See Rx Instructions PO .COMPLEX 03/25/25 a dose pack (Medrol (Tomas)) #21 ea omeprazole 20 mg capsule,delayed 20 mg PO BID #180 caps 03/27/25 release Allergies Allergy/AdvReac Type Severity Reaction Status Date / Time carisoprodol (CARISOPRODOL) AdvReac Severe urinary Verified 03/25/25 11:57 retention fosphenytoin AdvReac Severe Seizures Verified 03/25/25 11:57 Latex, Natural Rubber AdvReac Mild Rash Verified 03/25/25 11:57 risperidone (From Risperdal) AdvReac urinary Verified 03/25/25 11:57 retention Review of Systems <Ana Ramos MD - Last Filed: 04/02/25 18:20> Review of Systems Narrative: Positive for low back pain rated down to the right leg. One episode of urine incontinence. Negative for bowel or bladder retention, bowel incontinence, fever, chills, chest pain, shortness of breath, abdominal pain, nausea vomiting, numbness weakness on her legs. 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) 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 Hypoxia Sinus tachycardia RBBB (right bundle branch block) Tobacco abuse Psychogenic nonepileptic seizure Alcoholism DVT (deep venous thrombosis) Narcotic habituation, continuous Pulmonary embolism Morbid obesity LYLA (obstructive sleep apnea) Acetaminophen overdose of undetermined intent (12/2015) Suicide attempt Intraoperative cardiac arrest during non-cardiac surgery (11/2013) Ovarian cyst Plantar fasciitis 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 Cubital tunnel syndrome Status post laminectomy (12/14/15) Gastroesophageal reflux disease without esophagitis (03/02/15) Fibromyalgia (03/02/15) Tylenol overdose Obstipation Surgical History S/P lumbar spinal fusion H/O: hysterectomy Hx of toe surgery (05/16/20) History of carpal tunnel repair (~10/30/14) History of laminectomy (~09/2016) History of laminectomy History of colonoscopy History of esophagogastroduodenoscopy (EGD) History of lumbar spinal fusion (12/22/18) S/P epidural steroid injection (11/2013) Status post dilation and curettage (2008) Family History Grandfather Diabetes mellitus Family/Other Pancreatic cancer Social History household members: spouse alcohol intake: current eating out: 1-3 times/week Type(s) of exercise: normal ROM and activity and sedentary lifestyle tobacco type: cigars alcohol intake frequency: other Alcohol type: hard liquor Exam <Ana Ramos MD - Last Filed: 04/02/25 18:20> Narrative Exam Narrative: GENERAL: Alert awake without acute distress. HEAD: Atraumatic. Normocephalic. NECK: Trachea midline. Non tender CARDIOVASCULAR: Regular rate and rhythm without murmurs, gallops, or rubs. RESPIRATORY: Clear to auscultation. Breath sounds equal bilaterally. No wheezes, rales, or rhonchi. GASTROINTESTINAL: Abdomen soft, non-tender, nondistended. EXTREMITIES: No edema or joint tenderness. BACK: Nontender without deformity or crepitance. No flank tenderness. No midline thoracolumbar spine tenderness to palpation or step-off. NEURO: AOx3. Neuro exam showed equal sensation on both legs. Normal 5/5 hip flexion, knee extension, ankle flexion and extension on both legs. 2+ the RT both knee. No dorsiflexion of great toe from Babinski reflex on both feet. Normal rectal tone and perianal sensation. Initial Vital Signs Initial Vital Signs: Vital Signs Temperature 98.8 F 04/02/25 13:02 Pulse Rate 122 H 04/02/25 13:02 Respiratory Rate 22 04/02/25 13:02 Pulse Oximetry 99 04/02/25 13:02 Oxygen Delivery Method Room Air 04/02/25 13:02 <Jagjit Hall MD - Last Filed: 04/03/25 04:34> Initial Vital Signs Initial Vital Signs: Vital Signs Temperature 98.8 F 04/02/25 13:02 Pulse Rate 122 H 04/02/25 13:02 Respiratory Rate 22 04/02/25 13:02 Pulse Oximetry 99 04/02/25 13:02 Oxygen Delivery Method Room Air 04/02/25 13:02 Course <Ana Ramos MD - Last Filed: 04/02/25 18:20> Orders Ordered: Discontinued Medications Lorazepam (Lorazepam 2 Mg/Ml Inj) 1 mg IV NOW ONE Stop: 04/02/25 16:23 Last Admin: 04/02/25 16:53 Dose: 1 mg Documented By: VIOLETTE Vital Signs Vital signs: Vital Signs - 8 hr 04/02/25 13:02 Temperature 98.8 F Pulse Rate 122 H Respiratory Rate 22 Pulse Oximetry 99 Oxygen Delivery Method Room Air <Jagjit Hall MD - Last Filed: 04/03/25 04:34> Orders Ordered: Discontinued Medications Lorazepam (Lorazepam 2 Mg/Ml Inj) 1 mg IV NOW ONE Stop: 04/02/25 16:23 Last Admin: 04/02/25 16:53 Dose: 1 mg Documented By: ES Vital Signs Vital signs: Vital Signs - 8 hr 04/02/25 13:02 Temperature 98.8 F Pulse Rate 122 H Respiratory Rate 22 Pulse Oximetry 99 Oxygen Delivery Method Room Air MDM - Back Pain/Injury <Ana Ramos MD - Last Filed: 04/02/25 18:20> Lab Data 04/02/25 16:45 04/02/25 16:45 Labs: Lab Results 04/02/25 Range/Units 16:45 WBC 8.8 (4.5-11.0) X10^3/uL RBC 5.27 H (4.0-5.2) X10^6/uL Hgb 16.1 H (12.0-16.0) g/dL Hct 47.3 H (36-46) % MCV 89.8 (80-100) fL MCH 30.5 (26-34) PG MCHC 34.0 (30-36) % RDW 13.9 (11.6-14.8) % Plt Count 246 (150-400) X10^3/uL Neut % (Auto) 71.9 (50-75) % Lymph % (Auto) 21.2 L (25-40) % [place] % (Auto) 6.3 (3-14) % Eos % (Auto) 0.3 L (2-4) % Baso % (Auto) 0.3 (0-2) % Neut # (Auto) 6300 (9121-4330) /uL Lymph # (Auto) 1900 (4083-0432) /uL [place] # (Auto) 600 (0-900) /uL Eos # (Auto) 0 (0-450) /uL Baso # (Auto) 0 (0-100) /uL Sodium 143 (137-145) mmol/L Potassium 3.7 (3.4-5.1) mmol/L Chloride 102 (98-107) mmol/L Carbon Dioxide 30 (22-32) mmol/L BUN 15 (7-17) mg/dL Creatinine 0.55 (0.52-1.04) mg/dL Estimated GFR > 60 (>60) mL/min BUN/Creatinine Ratio 27.3 H (6-22) Glucose 119 H (70-99) mg/dL Calcium 9.7 (8.4-10.2) mg/dL Imaging Data MRI lumbar spine without contrast: Radiologist's Impression: PROCEDURE: MR LUMBAR SPINE WO CON INDICATIONS: Low back pain. Urine incontinence TECHNIQUE: Noncontrast sagittal T1 spin echo and T2 fast echo, sagittal STIR, and T2 fast spin echo through the lumbar spine. In cases with scoliosis, additional coronal T2 fast spin echo may be performed. COMPARISON: [facility], , MR LUMBAR SPINE WO CON, 06/29/2018, 14:22. FINDINGS: Image quality: Excellent. Alignment and Curvature: There is normal bony alignment. Bone: Marrow is of normal overall signal. No acute vertebral body compression fractures. Posterior jason and screw fixation of L4-L5 with discectomy is shown. Discs: There is interval desiccation the L3-L4 disc with extrusion is described below. Discs otherwise maintain normal height and signal. Spinal Cord: Conus medullaris terminates at the L1 level. Visualized cord demonstrates normal signal and size. Paraspinous Soft Tissues: No paravertebral masses. T12-L3: Normal appearance. L3-L4: There is interval development of a right paracentral extrusion which extends 1.3 cm caudal to the superior L4 endplate. This extrusion causes mass effect upon the thecal sac causing mild spinal canal narrowing in the AP and transverse dimensions in conjunction with ligamentum flavum thickening. There is no significant neural foraminal narrowing, however there is impression upon the exiting L3 nerve root. L4-L5: Post discectomy without residual spinal canal narrowing. Mild bilateral neural foraminal narrowing. L5-S1: Normal appearance. IMPRESSION: Interval L3-L4 disc extrusion impressing upon the exiting right L3 nerve root. nerve root. Dictated by: Sowmya Umana M.D. on 04/02/2025 at 16:43 Approved by: Sowmya Umana M.D. on 04/02/2025 at 16:53 MDM Narrative Medical decision making narrative: 44 years old female with history of chronic back pain, PE on Xarelto came today complaining of worsening low back pain and pain shooting down to her right lower leg. The patient was in our ED on 03/25/2025 for low back pain with numbness on the groin. Her MRI of lumbar spine on 03/25/2025 showed IMPRESSION: Right subarticular disc protrusion/extrusion with inferior migration at L3-4 fills the right lateral recess and displaces the descending nerve root. Hypertrophic arthropathy and ligamentum flavum laxity combined result in moderate central stenosis. She was sent home with oxycodone and steroid. He also reported woke up with urine incontinence on herself on 03/26/2025 and 03/28/2025 but no urine incontinence or retention in the daytime or any bowel or bladder retention, numbness weakness on her legs, abdominal pain, fever, nausea vomiting, chest pain, shortness of breath. Her CV exam, lung exam, abdominal exam were normal. Her neuro exam was intact 5/5 on hip flexion, knee extension, ankle flexion and extension both legs. Equal sensation on both legs. Rectal exam showed normal perianal sensation, rectal tone. Negative Babinski for dorsiflexion of the great toe on both feet. DTR 2+ on both knees. MRI showed L3-L4: There is interval development of a right paracentral extrusion which extends 1.3 cm caudal to the superior L4 endplate. This extrusion causes mass effect upon the thecal sac causing mild spinal canal narrowing in the AP and transverse dimensions in conjunction with ligamentum flavum thickening. There is no significant neural foraminal narrowing, however there is impression upon the exiting L3 nerve root. <Jagjit Hall MD - Last Filed: 04/03/25 04:34> Lab Data Labs: Lab Results 04/02/25 Range/Units 16:45 WBC 8.8 (4.5-11.0) X10^3/uL RBC 5.27 H (4.0-5.2) X10^6/uL Hgb 16.1 H (12.0-16.0) g/dL Hct 47.3 H (36-46) % MCV 89.8 (80-100) fL MCH 30.5 (26-34) PG MCHC 34.0 (30-36) % RDW 13.9 (11.6-14.8) % Plt Count 246 (150-400) X10^3/uL Neut % (Auto) 71.9 (50-75) % Lymph % (Auto) 21.2 L (25-40) % [place] % (Auto) 6.3 (3-14) % Eos % (Auto) 0.3 L (2-4) % Baso % (Auto) 0.3 (0-2) % Neut # (Auto) 6300 (0521-4109) /uL Lymph # (Auto) 1900 (5397-3846) /uL [place] # (Auto) 600 (0-900) /uL Eos # (Auto) 0 (0-450) /uL Baso # (Auto) 0 (0-100) /uL Sodium 143 (137-145) mmol/L Potassium 3.7 (3.4-5.1) mmol/L Chloride 102 (98-107) mmol/L Carbon Dioxide 30 (22-32) mmol/L BUN 15 (7-17) mg/dL Creatinine 0.55 (0.52-1.04) mg/dL Estimated GFR > 60 (>60) mL/min BUN/Creatinine Ratio 27.3 H (6-22) Glucose 119 H (70-99) mg/dL Calcium 9.7 (8.4-10.2) mg/dL MDM Narrative Medical decision making narrative: 44 years old female with history of chronic back pain, PE on Xarelto came today complaining of worsening low back pain and pain shooting down to her right lower leg. The patient was in our ED on 03/25/2025 for low back pain with numbness on the groin. Her MRI of lumbar spine on 03/25/2025 showed IMPRESSION: Right subarticular disc protrusion/extrusion with inferior migration at L3-4 fills the right lateral recess and displaces the descending nerve root. Hypertrophic arthropathy and ligamentum flavum laxity combined result in moderate central stenosis. She was sent home with oxycodone and steroid. He also reported woke up with urine incontinence on herself on 03/26/2025 and 03/28/2025 but no urine incontinence or retention in the daytime or any bowel or bladder retention, numbness weakness on her legs, abdominal pain, fever, nausea vomiting, chest pain, shortness of breath. Her CV exam, lung exam, abdominal exam were normal. Her neuro exam was intact 5/5 on hip flexion, knee extension, ankle flexion and extension both legs. Equal sensation on both legs. Rectal exam showed normal perianal sensation, rectal tone. Negative Babinski for dorsiflexion of the great toe on both feet. DTR 2+ on both knees. MRI showed L3-L4: There is interval development of a right paracentral extrusion which extends 1.3 cm caudal to the superior L4 endplate. This extrusion causes mass effect upon the thecal sac causing mild spinal canal narrowing in the AP and transverse dimensions in conjunction with ligamentum flavum thickening. There is no significant neural foraminal narrowing, however there is impression upon the exiting L3 nerve root. Neurosurgery at [facility] was consulted Dr. Bagley who agreed that the patient could be followed up as an outpatient and did not need emergent transfer and surgery at this time. Discharge Plan Departure Patient Disposition: Home Clinical Impression: Intervertebral disc extrusion Instructions: DI for Low Back Pain, Exercise May Reduce Risk of Low Back Pain Activity Restrictions/Additional Instructions: Follow up with new neurosurgeon in [place] as planned. Come back sooner if having more bowel or bladder incontinence or unrelenting pain. Prescriptions: No Action albuterol sulfate 90 mcg/actuation HFA aerosol inhaler 2 puff inhalation Q6H PRN (Reason: shortness of breath or wheezing) Qty: 8.5 2RF nortriptyline 10 mg capsule 10 mg PO DAILY ketoconazole 2 % cream 1 applic topical DAILY spironolactone 25 mg tablet 25 mg PO DAILY Qty: 90 3RF ferrous sulfate 325 mg (65 mg iron) tablet 325 mg PO DAILY vitamin B complex Tablet 1 tab PO DAILY metoprolol succinate 25 mg tablet extended release 24 hr 25 mg PO DAILY polyethylene glycol 3350 17 gram/dose powder 17 g PO DAILY PRN (Reason: constipation) Patient Comments: DOSE ONE MIX WITH 64 OZ OF GATORADE. FOLLOW WITH DOSE TWO. hydrocodone-acetaminophen 5-325 mg tablet 1 tab PO Q6H PRN (Reason: pain) Qty: 20 0RF desvenlafaxine succinate 50 mg tablet extended release 24 hr 50 mg PO DAILY Qty: 30 2RF lithium carbonate 300 mg capsule 300 mg PO BEDTIME Qty: 90 3RF desvenlafaxine succinate 100 mg tablet extended release 24 hr 100 mg PO DAILY Qty: 30 3RF aripiprazole 30 mg tablet 30 mg PO BEDTIME Qty: 90 3RF Rx Instructions: Take one 30mg tablet by mouth daily magnesium oxide 400 mg (241.3 mg magnesium) tablet 400 mg PO DAILY Qty: 30 0RF (DME) lancets See Rx Instructions .Route .MEDSUPPLY Qty: 100 3RF Rx Instructions: to test blood glucose daily terazosin 2 mg capsule 2 mg PO QPM Qty: 90 0RF (DME) glucose monitor See Rx Instructions .Route .MEDSUPPLY Qty: 1 0RF Rx Instructions: To test blood glucose daily (DME) glucose test strips See Rx Instructions .Route .MEDSUPPLY Qty: 100 3RF Rx Instructions: To test blood glucose daily (DME) pen needle, diabetic [Sure Comfort Pen Needle] 32 gauge x 5/32 needle See Rx Instructions .ROUTE .COMPLEX Qty: 100 0RF Dose Instruction: USE WITH LEVEMIR DAILY DIRECTED Rx Instructions: USE WITH LEVEMIR DAILY DIRECTED Atrovent HFA 17 mcg/actuation HFA aerosol inhaler 1 puff PO Q8H Qty: 12.9 0RF atorvastatin 10 mg tablet 10 mg PO DAILY Qty: 90 3RF Jardiance 10 mg tablet 10 mg PO DAILY Qty: 30 2RF Xarelto 20 mg tablet 20 mg PO DAILY Qty: 90 3RF tirzepatide 7.5 mg/0.5 mL pen injector 7.5 mg SUBCUT QWEEK Qty: 2 3RF levothyroxine 25 mcg tablet 25 mcg PO DAILY Qty: 90 3RF fluticasone propion-salmeterol 115-21 mcg/actuation HFA aerosol inhaler 2 puff PO BID Qty: 36 0RF cyclobenzaprine 10 mg tablet 10 mg PO 3XD PRN (Reason: for muscle spasm) Qty: 90 0RF pregabalin 300 mg capsule 300 mg PO BID Qty: 180 3RF Rx Instructions: take 1 capsule by mouth twice a day omeprazole 20 mg capsule,delayed release(DR/EC) 20 mg PO BID Qty: 180 1RF ascorbic acid (vitamin C) 500 mg tablet 500 mg PO DAILY potassium gluconate 595 mg (99 mg) tablet 595 mg PO DAILY hydrocodone-acetaminophen 5-325 mg tablet 1 tab PO Q6H PRN (Reason: pain) Qty: 10 0RF methylprednisolone [Medrol (Tomas)] 4 mg tablets,dose pack See Rx Instructions .ROUTE .COMPLEX Qty: 21 0RF Rx Instructions: for 6 days (DME) True Metrix Glucose Test Strip Strip See Rx Instructions .ROUTE DAILY Qty: 10 Rx Instructions: As directed (DME) lancets [Micro Thin Lancets] 33 gauge misc See Rx Instructions .ROUTE DAILY Qty: 100 Rx Instructions: As directed ketoconazole 2 % shampoo 1 applic topical DAILY PRN (Reason: yeast) triamcinolone acetonide 0.1 % cream 1 applic topical DAILY PRN (Reason: skin condition) acetaminophen [Tylenol Extra Strength] 500 mg tablet 1,000 mg PO Q6H PRN (Reason: pain) (DME) blood-glucose meter [True Metrix Glucose Meter] Misc See Rx Instructions .ROUTE DAILY Qty: 1 Rx Instructions: As directed Referrals: Alejandra Lynch MD [Primary Care Provider, Family Practice] Stand Alone Forms: Patient Portal/API
[2025-04-02 16:53] LABS: Add Manual Diff / Slide Review NO; Hematocrit 47.3 % (36-46); Hemoglobin 16.1 g/dL (12.0-16.0); Lymphocytes Absolute Auto 1900 /uL (1100-4500); Mean Corpuscular HGB Conc 34.0 % (30-36); Mean Corpuscular Hemoglobin 30.5 PG (26-34); Mean Corpuscular Volume 89.8 fL (80-100); Platelet Count 246 X10^3/uL (150-400)
[2025-04-02 17:07] LABS: Blood Urea Nitrogen 15 mg/dL (7-17); Calcium 9.7 mg/dL (8.4-10.2); Carbon Dioxide 30 mmol/L (22-32); Chloride 102 mmol/L (98-107); Estimated Glomerular Filt Rate > 60 mL/min (>60); Glucose 119 mg/dL (70-99); Sodium 143 mmol/L (137-145)
[2025-04-02 17:08] LABS: HEMOLYSIS 51 (0-50); Potassium 3.7 mmol/L (3.4-5.1)
[2025-04-02 18:31] VITALS: BP 118/71; PULSE 94; RESP 16; O2SAT 93
== END 2025-04-02 19:32 | disposition home or self-care (01) ==
PROVIDERS: Emergency Medicine; Emergency Provider Family Medicine; PCP Family Medicine
DX: M51.26 Other intervertebral disc displacement, lumbar region (principal); Z79.01 Long term (current) use of anticoagulants
CPT/HCPCS: 72148; 80048; 85025; 96374; 99283; 99284; J2060